=== PATIENT | male | born 1960 | race Caucasian/White ===

== ENCOUNTER 2023-02-17 11:05 | Outpatient (OUT) | payer OTHER, SELFPAY ==
--- NOTE | 2023-02-17 11:39 | PM.CN ---
Consult Note: HPI Data of Consult Patient: known to practice within the last 3 years Consult date: 02/17/23 Requesting Physician: ALPHONSO NINO NP Primary Care Provider: Shaikh Helena MD Consult Narrative Reason for consult: shoulder pain Narrative: Patient is here for f/u of right shoulder injection done 12/08/22 . He had 70% relief of pain and increased fx continued through today. He has f/u appt with ortho for shoulder coming up.No new sensorimotor or bowel or bladder issues. No adverse medication SE. Medication regimen assists patient in ability to complete ADLs. STEWART-40. He inquired about increasing his oxycodone dose. He feels the med is wearing off before next dose is due. We can increase to 4 times a day. Can take baclofen BID. He does use tens unit at home. He also has had weight loss purposeful. Decreased ROM bilat shoulders. cc:: CC: ALPHONSO NINO NP Review of Systems ROS Status of ROS 10 or more systems reviewed and unremarkable except as noted in history and below Musculoskeletal Reports: extremity pain and joint pain Exam Constitutional Documenting provider has reviewed patient's vital signs: yes Common normals: no apparent distress, average body habitus, oriented x3, no limitations, healthy appearing, alert and well nourished General appearance: cooperative, comfortable and well developed Orientation/consciousness: Yes awake, Yes oriented to person, Yes oriented to place and Yes oriented to time HENNY Common normals: normocephalic, nasal mucous membranes and turbinates normal and moist oral mucous membranes Respiratory Common normals: normal respiratory effort, no retractions and no use of accessory muscles Effort & inspection: able to speak in complete sentences and symmetric chest movement Extremity Common normals: normal to inspection, normal capillary refill and no pedal edema Right upper extremity: shoulder joint (crepitus with movement, positive apleys) Right shoulder joint exam: inspection Left upper extremity: shoulder joint (crepitus with movement, positive apleys) Other: +2 bilat radial pulses, no arm drift Assessment and Plan Assessment and Plan (1) Shoulder arthritis: (2) Muscle spasm: Plan baclofen BID chiropractor narcan rx increase oxycodone to 4 times daily PRN
== END 2023-02-17 11:06 ==
PROVIDERS: PCP Internal Medicine; Visit Provider Nurse Practitioner
DX: M62.838 Other muscle spasm (principal); M19.019 Primary osteoarthritis, unspecified shoulder
CPT/HCPCS: G0463

== ENCOUNTER 2023-05-19 11:10 | Outpatient (OUT) | payer OTHER, SELFPAY ==
--- NOTE | 2023-05-19 11:14 | P.CN_ITS ---
Consult Note: HPI Data of Consult Patient: known to practice within the last 3 years Requesting Physician: Sho Galdamez NP Primary Care Provider: Shaikh Helena MD Consult Narrative Reason for consult: f/u Narrative: Ryan Pete a pleasant 63 year old male presents for evaluation of chronic bilateral shoulder pain, no pain in left shoulder today however right pain is 2/10 today. Has been evaluated by [facility] for shoulder surgery and is avoiding surgery as pain is tolerable at this time. cc:: CC: Sho Galdamez NP Review of Systems ROS Status of ROS 10 or more systems reviewed and unremarkable except as noted in history and below Musculoskeletal Reports: joint pain Meds Home Medications and Allergies Home Medications Medication Instructions Recorded Confirmed Type atorvastatin 40 mg tablet (Lipitor) 40 mg PO DAILY 02/17/23 02/17/23 History baclofen 10 mg tablet 10 mg PO BID 02/17/23 02/17/23 History gabapentin 300 mg capsule 300 mg PO DAILY 02/17/23 02/17/23 History (Neurontin) lidocaine 5 % topical patch 1 patch topical DAILY 02/17/23 02/17/23 History (Lidoderm) oxycodone-acetaminophen 5 mg-325 1 tab PO QID 02/17/23 02/17/23 History mg tablet (Percocet) oxycodone-acetaminophen 5 mg-325 1 tab PO QID PRN pain #120 tabs 04/12/23 Rx mg tablet (Percocet) oxycodone-acetaminophen 5 mg-325 1 tab PO QID PRN pain #120 tabs 04/14/23 Rx mg tablet (Percocet) Allergies Allergy/AdvReac Type Severity Reaction Status Date / Time No Known Drug Allergies Allergy Verified 02/17/23 12:58 Exam Constitutional Documenting provider has reviewed patient's vital signs: yes Common normals: no apparent distress, oriented x3, healthy appearing, alert and well nourished General appearance: cooperative HENMT Common normals: normocephalic, hearing grossly normal bilaterally and moist oral mucous membranes Head and scalp: normocephalic Eye Common normals: PERRL Pupil: PERRL Neck & C-Spine Common normals: full ROM General: normal visual inspection Chest Common normals: inspection of chest normal Respiratory Common normals: normal respiratory effort, no retractions and no use of accessory muscles Extremity Right upper extremity: shoulder joint Left upper extremity: shoulder joint Other: pain with activity, ROM WNL but painful mild edema 5/5 BUE strength Neuro Common normals: oriented x3, CN's II-XII intact bilaterally, moves all extremities, no focal motor deficits, no sensory deficits noted and deep tendon reflexes 2+ bilaterally Sensorium/orientation: alert Motor exam: strength 5/5 throughout and no movement abnormalities noted Psych Common normals: mental status grossly normal, thought process normal, cooperative, affect normal, speech normal and activity/motor behavior normal Speech: normal speech Thought process: normal thought process Results Additional Findings Additional findings: I have checked an [place] report on this patient today and there are no aberrancies noted in the prescribing history.?? A drug screen was completed and reviewed within the last year, and if there has not been a drug screen completed we ordered one today to monitor higher risk, state monitored pain medication use. As part of providing excellent, safe, comprehensive care, the following was completed at our patient's visit: 1. A medication reconciliation and review to ensure accurate knowledge of current/active medications, including asking our patients to inform us about any [id number] medications or herbal remedies/nutritional supplements/alternative remedies. 2. A review to specifically ensure our patients have had annual screening for: elevated body mass index (BMI), tobacco use, screening for depression, and screening for unhealthy alcohol use. When screening is concerning, patients are provided with education and the specific recommendation to discuss the concerning health issue and treatment options with their primary care provider. Assessment and Plan Assessment and Plan (1) Shoulder arthritis: (2) Muscle spasm: (3) Chronic, continuous use of opioids: Assessment and Plan: I feel these medications are improving the patient's quality of life and allow them to tolerate activities of daily living as well as participate in recreational activity.? The patient does not report intolerable side effects. The patient is NOT opioid naive and non-pharmacologic and non-opioid treatment has failed to significantly relieve the patient's pain and improve functionality. The patient has a diagnosis that is related to a somatic or visceral pain etiology. ? ?? I reviewed with the patient the potential risks and side effects with the use of? opioid medications including but not limited to respiratory depression,? sedation, and even . I verified the patient has access to naloxone should? these effects occur. I advised the patient to avoid the use of any other? sedation substances including alcohol, THC, and benzodiazepines while? taking opioid medications due to the risk of compounding side effects and? detrimental outcomes. 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 drug screen, and opioid start talking forms. The patient was advised to let? their family know they had Naloxone in case they would need to administer? the medication.? Plan not interested in surgical intervention at this time pain well controlled on current medication regimen f/u 3 months, sooner if needed
== END 2023-05-19 11:11 | disposition home or self-care (01) ==
LOC: PM 11:11
PROVIDERS: PCP Internal Medicine; Visit Provider Nurse Practitioner
DX: M19.019 Primary osteoarthritis, unspecified shoulder (principal); M62.838 Other muscle spasm; Z79.891 Long term (current) use of opiate analgesic
CPT/HCPCS: G0463

== ENCOUNTER 2023-05-23 10:00 | Outpatient (OUT) | payer OTHER, SELFPAY ==
[2023-05-23 10:35] LABS: Basophils Absolute Auto 0.1 10^3/uL (0.0-0.1); Basophils Percent Auto 0.6 % (0.2-2.0); Eosinophils Absolute Auto 0.2 10^3/uL (0.0-0.7); Eosinophils Percent Auto 2.9 % (0.9-7.0); Hematocrit 46.5 % (42.0-54.0); Hemoglobin 15.2 g/dL (14.0-18.0); Immature Granulocytes Abs Auto 0.02 10^3/uL (0.00-0.03); Immature Granulocytes Pct Auto 0.2 % (0.0-0.5); Lymphocytes Percent Auto 25.2 % (20.5-60.0); Mean Corpuscular HGB Conc 32.7 g/dL (29.9-35.2); Mean Corpuscular Hemoglobin 30.5 pg (25.9-34.0); Mean Corpuscular Volume 93.2 fL (80.0-94.0); Mean Platelet Volume 9.9 fL (9.5-13.5); Monocytes Absolute Auto 0.6 10^3/uL (0.3-0.8); Monocytes Percent Auto 7.1 % (1.7-12.0); Neutrophils Absolute Auto 5.1 10^3/uL (1.4-6.5); Platelet Count 221 10^3/uL (150-450); Red Blood Count 4.99 10^6/uL (4.70-6.10); Red Cell Distribution Width 12.1 % (11.0-15.0)
[2023-05-23 11:29] LABS: Alanine Aminotransferase 17 U/L (16-63); Albumin Globulin Ratio 1.2; Albumin Level 3.8 g/dL (3.4-5.0); Alkaline Phosphatase 104 U/L (46-116); Anion Gap 12.3; Aspartate Amino Transferase 16 U/L (15-37); BUN Creatinine Ratio 11.8; Bilirubin Total 0.7 mg/dL (0.2-1.0); Calcium 9.1 mg/dL (8.5-10.1); Carbon Dioxide 30.4 mmol/L (21.0-32.0); Chloride 105 mmol/L (98-107); Chol HDL Ratio 3.7; Cholesterol 223 mg/dL (<=200); Estimated GFR (African America >60 (>=60); Estimated GFR (Non-African Ame >60 (>=60); Globulin 3.3 g/dL; Glucose 105 mg/dL (74-106); HDL Cholesterol 61 mg/dL (40-60); Potassium 4.7 mmol/L (3.5-5.1); Sodium 143 mmol/L (136-145); Thyroid Stimulating Hormone 2.087 uIU/mL (0.358-3.740); Total Protein 7.1 g/dL (6.4-8.2); Triglycerides 76 mg/dL (<=150); VLDL CHOLESTEROL 15.2 mg/dL
[2023-05-30 04:06] LABS: Free Testosterone(Direct) 5.2 pg/mL (6.6-18.1); Testosterone 530 ng/dL (264-916)
== END 2023-05-23 10:01 | disposition home or self-care (01) ==
LOC: LAB 10:01
PROVIDERS: PCP Internal Medicine; Visit Provider Internal Medicine
DX: E55.9 Vitamin D deficiency, unspecified (principal); E78.5 Hyperlipidemia, unspecified; R53.83 Other fatigue; E29.1 Testicular hypofunction
CPT/HCPCS: 36415; 80053; 80061; 82306; 82607; 82746; 84402; 84403; 84443; 85025

== ENCOUNTER 2023-06-03 12:34 | Outpatient (OUT) | payer OTHER, SELFPAY ==
[2023-06-04 08:12] LABS: FSH 4.5 mIU/mL (1.5-12.4); Luteinizing Hormone(LH) 11.2 mIU/mL (1.7-8.6); Prolactin 9.9 ng/mL (4.0-15.2); Triiodothyronine (T3) 125 ng/dL (71-180)
== END 2023-06-03 12:35 | disposition home or self-care (01) ==
LOC: LAB 12:34
PROVIDERS: PCP Internal Medicine; Visit Provider Internal Medicine
DX: E29.1 Testicular hypofunction (principal)
CPT/HCPCS: 36415; 83001; 83002; 84146; 84436; 84443; 84480

== ENCOUNTER 2023-06-09 14:53 | Outpatient (OUT) | payer OTHER, SELFPAY ==
--- NOTE | 2023-06-09 14:58 | US_ITS ---
[address] [address] Patient Name: RIGO JEFFERSON MRN: [id number] date: 1960 Sex: M Assigned Patient Location: [place] Current Patient Location: [place] Accession/Order Number: [id number] Exam Date: 06/09/2023 15:20 Report Date: 06/09/2023 22:32 At the request of: SHAIKH ROMERO Procedure: US scrotum EXAM: US scrotum HISTORY: Testicular Hypofunction E29.1 COMPARISON: None. TECHNIQUE: Standard scrotal ultrasound performed using Doppler interrogation FINDINGS: Right testicle measures 3.1 x 1.8 x 3.1 cm. Left testes measure 3.9 x 1.9 x 3 cm. Rete testes seen on the left. No evidence of torsion or testicular mass. Left epididymis appears mildly heterogeneous without hyperemia. Small right-sided varicocele as well as bilateral hydroceles. Varicocele on the right measures up to about 4 mm US/US scrotum IMPRESSION: No evidence of acute testicle information testicular mass. Small right varicocele and small bilateral hydroceles Electronically authenticated by: JOSEPH LOMBARDO Date: 06/09/2023 22:32
== END 2023-06-09 14:54 | disposition home or self-care (01) ==
LOC: US 14:54
PROVIDERS: PCP Internal Medicine; Visit Provider Internal Medicine
DX: E29.1 Testicular hypofunction (principal)
CPT/HCPCS: 76870

== ENCOUNTER 2023-08-17 11:23 | Outpatient (OUT) | payer OTHER, SELFPAY ==
--- NOTE | 2023-08-17 11:58 | P.CN_ITS ---
Consult Note: HPI Data of Consult Patient: known to practice within the last 3 years Requesting Physician: Sho Galdamez NP Primary Care Provider: Shaikh Helena MD Consult Narrative Reason for consult: f/u Narrative: Ryan Pete a pleasant 63 year old male presents for evaluation of chronic pain. Today pain 3/10 in low back, ache worse with activity. Patient reports moderate benefit from current medication regimen and would like to continue on these medications. cc:: CC: Sho Galdamez NP Review of Systems ROS Status of ROS 10 or more systems reviewed and unremark able except as noted in history and below Musculoskeletal Reports: back pain and joint pain Meds Home Medications and Allergies Home Medications Medication Instructions Recorded Confirmed Type atorvastatin 40 mg tablet (Lipitor) 40 mg PO DAILY 02/17/23 02/17/23 History baclofen 10 mg tablet 10 mg PO BID 02/17/23 02/17/23 History gabapentin 300 mg capsule 300 mg PO DAILY 02/17/23 02/17/23 History (Neurontin) lidocaine 5 % topical patch 1 patch topical DAILY 02/17/23 02/17/23 History (Lidoderm) oxycodone-acetaminophen 5 mg-325 1 tab PO QID 02/17/23 02/17/23 History mg tablet (Percocet) oxycodone-acetaminophen 5 mg-325 1 tab PO QID PRN pain #120 tabs 04/12/23 Rx mg tablet (Percocet) oxycodone-acetaminophen 5 mg-325 1 tab PO QID PRN pain #120 tabs 04/14/23 Rx mg tablet (Percocet) oxycodone-acetaminophen 5 mg-325 1 tab PO QID PRN pain #120 tabs 06/14/23 Rx mg tablet (Percocet) oxycodone-acetaminophen 5 mg-325 1 tab PO QID PRN pain #120 tabs 07/19/23 Rx mg tablet (Percocet) Allergies Allergy/AdvReac Type Severity Reaction Status Date / Time No Known Drug Allergies Allergy Verified 02/17/23 12:58 Exam Constitutional Documenting provider has reviewed patient's vital signs: yes Common normals: no apparent distress, oriented x3, healthy appearing, alert and well nourished General appearance: cooperative HENMT Common normals: normocephalic, hearing grossly normal bilaterally and moist oral mucous membranes Head and scalp: normocephalic Eye Common normals: PERRL Pupil: PERRL Neck & C-Spine Common normals: full ROM General: normal visual inspection Chest Common normals: inspection of chest normal Respiratory Common normals: normal respiratory effort, no retractions and no use of accessory muscles Back & Pelvis Thoracic spine/upper back: pain with ROM Lumbar spine/lower back: pain with ROM and straight leg raise positive right Extremity Common normals: normal to inspection and full ROM Right upper extremity: shoulder joint Left upper extremity: shoulder joint Other: pain with activity, ROM WNL but painful mild edema 5/5 BUE strength Neuro Common normals: oriented x3, CN's II-XII intact bilaterally, moves all extremities, no focal motor deficits, no sensory deficits noted and deep tendon reflexes 2+ bilaterally Sensorium/orientation: alert Motor exam: strength 5/5 throughout and no movement abnormalities noted Psych Common normals: mental status grossly normal, thought process normal, cooperative, affect normal, speech normal and activity/motor behavior normal Speech: normal speech Thought process: normal thought process Assessment and Plan Assessment and Plan (1) Osteoarthritis: (2) Lumbar spondylosis: (3) Chronic, continuous use of opioids: (4) Muscle spasm: (5) Shoulder arthritis: Plan declining injection therapy and PT at this time still finding functional benefit from current medication regimen following with a new dr for testosterone injections and blood work continue current medications, tolerating well without side effect f/u 3 months
== END 2023-08-17 11:24 | disposition home or self-care (01) ==
PROVIDERS: PCP Internal Medicine; Visit Provider Nurse Practitioner
DX: M19.90 Unspecified osteoarthritis, unspecified site (principal); M47.816 Spondylosis without myelopathy or radiculopathy, lumbar region; Z79.891 Long term (current) use of opiate analgesic; M62.838 Other muscle spasm; M19.012 Primary osteoarthritis, left shoulder
CPT/HCPCS: G0463

== ENCOUNTER 2023-11-05 11:42 | Outpatient (OUT) | payer OTHER, SELFPAY ==
--- OUTSIDE RECORDS SUMMARY | 2023-11-04 14:27 | XMS_ITS | CCD ---
Author Name Unknown Address [address] [place] [address] Organization [facility] Care Team Providers Care Lunchroom Monitor Name Role Phone Chandan Cool Unavailable Unavailable Sid Ac Unavailable Unavailable Required, No Pcp Unavailable Unavailable Daniel Caballero Unavailable None, No PCP Unavailable Unavailable [facility] Primary Care Unavailable WEST, DR RADHA Gaxiola Consulting Unavailable DUNCAN ., DR LLUVIA Sheldon Attending Unavailable DUNCAN ., DR LLUVIA Sheldon Admitting Unavailable DUNCAN ., DR LLUVIA Sheldon Consulting Unavailable [facility] Primary Care Unavailable DUNCAN ., DR LLUVIA Sheldon Attending Unavailable DUNCAN ., DR LLUVIA Sheldon Consulting Unavailable DUNCAN ., DR LLUVIA Sheldon Admitting Unavailable [facility] Primary Care Unavailable DUNCAN ., DR LLUVIA Sheldon Attending Unavailable DUNCAN ., DR LULVIA Sheldon Consulting Unavailable DUNCAN ., DR LLUVIA Sheldon Admitting Unavailable [facility] Primary Care Unavailable ANDERSEN .RAVINDER Consulting Unavailable DUNCAN ., DR LLUVIA Sheldon Admitting Unavailable DUNCAN ., DR LLUVIA Sheldon Attending Unavailable [facility] Primary Care Unavailable ANDERSEN .RAVINDER Consulting Unavailable DUNCAN ., DR LLUVIA Sheldon Admitting Unavailable DUNCAN ., DR LLUVIA Sheldon Attending Unavailable [facility] Primary Care Unavailable LAKSHMIPATHY ., NARENDRANATH Attending Nadira vailable LAKSHMIPATHY ., NARENDRANATH Admitting Nadira vailable [facility] Primary Care Unavailable LAKSHMIPATHY ., NARENDRANATH Attending Nadira vailable LAKSHMIPATHY ., NARENDRANATH Consulting Nadira vailable LAKSHMIPATHY ., NARENDRANATH Admitting Nadira vailable [facility] Primary Care Unavailable LAKSHMIPATHY ., [...] day Quantity: 0 Refills: 0 Ordered: 11-Feb-2021 aJny Ann Generic Substitution Allowed allopurinol 300 mg [...] 17 MCG/ACT Inhalation Aerosol Solution Refills: 0 [place] MEMEMarionJo Start : 28-Nov-2017 Active lisinopril 20 [...] by: DOMINGA FLYNN Date: 2022-12-08 10:25 Normal [facility] MRI SHOULDER RT WO CONon MRI SHOULDER [...] by: DOMINGA FLYNN Date: 2022-12-08 10:35 Normal [facility] XR CSPINE OBL FLEX_EXTon XR CSPINE OBL [...] RADHA DIAZ Date: 2022-05-31 20:33 Normal [facility] Post Op (General Surgery)on 04-02-2021 Post [...] not he wants to follow-up with a artistic associate in our system. Provider Impressions He is [...] not he wants to follow-up with a artistic associate in our system. Chief Complaint An interactive [...] not he wants to follow-up with a artistic associate in our system. Active Problems COPD (chronic [...] MG Oral Tablet Results/Data Xray Chest 1 [id number] 04:27PMJim Faith Test NameResultFlagReference Xray Chest 1 View(Report) FINAL REPORT Interpreted by: МАРИНА MARCELO MD 02/12/21 16:52 Patient Name: RIGO JEFFERSON STUDY: CHEST 1 VIEW; 02/12/2021 4:27 pm INDICATION: chest tube removal. COMPARISON: Prior 11:07 a.m. radiograph. ACCESSION NUMBER(S): [id number] ORDERING CLINICIAN: JIM FAITH FINDINGS: Left basilar [...] Apr 02 2021 5:38PM EST (Author) Normal Really Simple Admission Risk Screen - Adul ton 02-12-2021 Admission Risk Screen - Adult Allergies: Allergies: No Known Allergies: Patient Verification: New W ID Band Applied in my Departmentno Type of ID Patient is WearingW wristband, but not applied here Patient Transferred from Other Facility ([facility], [facility],etc)no Patient Identity Verified Bypatient ID Band [...] AlertFor Ebola-like Symptoms: Isolate Patient and Notify Provider/Network Professional For Contact: Notify Provider/Network Professional Advance Directive: Advance Directive/DNRno (1) Advance Directive [...] Learning Preferencesverbal instruction Cultural Considerationsnone Developmental Considerationsnone Adventism Considerationsnone Learning Assessment (Other Learner): Other learner availableno Depression Screen: During the past month, have you often been bothered by feeling down, depressed or hopelessno (1) During the past month, have you often had little interest or pleasure in doing thingsno (1) Have you had any thoughts of harming anyone elseno (1) Anderson Suicide: Risk Screen Not Applicable/Able to Answerable to be screened In the Past Month: Have you wished you were or could go to sleep and not wake upno(1) In the Past Month: Have you had any actual thoughts of killing yourself no(1) Lifetime: Have you ever done, started to do, or prepared to do anything to end your lifeno(1) Anderson Suicide Risknegative Adult Nutrition Screen: Have you [...] Pain (nonverbal)verbalization (more content not included)... Normal [facility] BASIC METABOLIC PANELon 02-03 Anion gap [Moles/Vol] 15 mmol/L Normal 10 - 20 [facility] Comment on above: Performed By: #### B MP #### [facility] [address] [place] [address] Calcium [Mass/Vol] 9.5 mg/dL Normal 8.6 - 10.6 [facility] Comment on above: Performed By: #### B MP #### [facility] [address] [place] [address] Chloride [Moles/Vol] 102 mmol/L Normal 98 - 107 [facility] Comment on above: Performed By: #### B MP #### [facility] [address] [place] [address] Creatinine [Mass/Vol] 0.98 mg/dL Normal 0.50 - 1.30 [facility] Comment on above: Performed By: #### B MP #### [facility] [address] [place] [address] GFR- AM. >60 Normal >60 [facility] Comment on above: Result Comment: CALC ULATIONS OF ESTIMATED GFR ARE PERFORMED USING THE MDRD STUDY EQUATION FOR THE IDMS-TRACEABLE CREATININE METHODS. CLIN CHEM 2007;53:766-72 Performed By: #### B MP #### [facility] [address] [place] [address] GFR-NON AM. >60 Normal >60 [facility] Comment on above: Performed By: #### B MP #### [facility] [address] [place] [address] Glucose [Mass/Vol] 133 mg/dL High 74 - 99 [facility] Comment on above: Performed By: #### B MP #### [facility] [address] [place] [address] HCO3 (Bld) [Moles/Vol] 24 mmol/L Normal 21 - 32 [facility] Comment on above: Performed By: #### B MP #### [facility] [address] [place] [address] Potassium [Moles/Vol] 4.3 mmol/L Normal 3.5 - 5.3 [facility] Comment on above: Performed By: #### B MP #### [facility] [address] [place] [address] Sodium [Moles/Vol] 137 mmol/L Normal 136 - 145 [facility] Comment on above: Performed By: #### B MP #### [facility] [address] [place] [address] Urea nitrogen [Mass/Vol] 17 mg/dL Normal 6 - 23 [facility] Comment on above: Performed By: #### B MP #### [facility] [address] [place] [address] CBCon 02-12-2021 Erythrocyte distribution width (RBC) [Ratio] 12.1 % Normal 11.5 - 14.5 [facility] Comment on above: Performed By: #### C BC #### [facility] [address] [place] [address] Hematocrit (Bld) [Volume fraction] 45.8 % Normal 41.0 - 52.0 [facility] Comment on above: Performed By: #### C BC #### [facility] [address] [place] [address] Hemoglobin (Bld) [Mass/Vol] 15.0 g/dL Normal 13.5 - 17.5 [facility] Comment on above: Performed By: #### C BC #### [facility] [address] [place] [address] MCHC (RBC) [Mass/Vol] 32.8 g/dL Normal 32.0 - 36.0 [facility] Comment on above: Performed By: #### C BC #### [facility] [address] [place] [address] MCV (RBC) [Entitic vol] 94 fL Normal 80 - 100 [facility] Comment on above: Performed By: #### C BC #### [facility] [address] [place] [address] NUCLEATED RBC 0.0 /100 WBC Normal 0.0-0.0 [facility] Comment on above: Performed By: #### C BC #### [facility] [address] [place] [address] Platelets (Bld) [#/Vol] 228 10*3/uL Normal 150 - 450 [facility] Comment on above: Performed By: #### C BC #### [facility] [address] [place] [address] RBC 4.85 x10E12/L Normal 4.50 - 5.90 [facility] Comment on above: Performed By: #### C BC #### [facility] [address] [place] [address] WBC (Bld) [#/Vol] 12.8 10*3/uL High 4.4 - 11.3 [facility] Comment on above: Performed By: #### C BC #### [facility] [address] [place] [address] Clinical Event Note-POCon Clinical Event Note-POC Clinical [...] 00:41 by Nataliia Ferris ( (Resident)) Normal [facility] Daily Progress Note-Surgeryo n 02-12-2021 Daily Progress [...] yet. Objective Data: Objective Information: T PRBPSpO2 Value35.29700206/8695% Date/Time02/12 6:4902/12 6:4902/12 6:4902/12 6:4902/12 6:49 Range(35.4C - 36.4C ) (77 - 99 ) (17 - 18 ) (127 - 147 )/ (86 - 91 ) (95% - 96% ) Pain reported at 02/12 2:54: 6 = Moderate ---- Intake and Output ----- Mn/Dy/Year TimeIntakeOutputNet Feb 12, 2021 6:00 [id number] Feb 11, 2021 10:00 [id number] The Intake and Output Totals for the last 24 hours are: IntakeOutputNet [id number] Physical Exam by System: Constitutional: Well developed, [...] Objective Data, Assessment and Plan, Note Completion Daniel Caballero) (Signed 13-Feb-2021 10:13) Authored: Note Completion Co-Signer: Service, Subjective Data, Objective Data, Assessment and Plan, Note Completion Last Updated: 13-Feb-2021 10:13 by Daniel Caballero) [facility] Discharge Planning [id number] 0 02-12-2021 Discharge Planning Note2 Discharge Planning: Needs Prior to Discharge (ex. Home Care Orders, IV/O2 prescriptions) Follow up appointments Discharge Barriers (ex. Avoidable days, wait guardianship, pt refuse leave) None Planned Dispositionhome Discharge DestinationHome [facility] 20[facility] [place] of Choice Explainedyes preference Anticipated Discharge [id number] Discharge Planning 02/12/2021 0135 Discharge Plan Patient transferred from [place] [address] from PACU for diaphragm plication. Pt is A&O times 4. at 3 liters oxygen. Pt denies any certified medical records coder use at home. 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 Pt have valuable belongings [...] disposition: Home Potential Barriers: none ADOD: 02/12. community service officer coordinator will continue to follow for discharge planning needs. Franny Gilliam RN, Transitional Warp Bleaching Vat Tender/TCC, pager [phone] Discharge note: 02/12/21 @ 1735: PT discharged home at this time. pts peripheral IV taken out prior to DC. pt given DC instructions. pt verbalized understanding. pt refused transport and walked downstairs with his son.---Erika stock RN Assessment: Discharge Planning Assessment [id number] Primary Contact Name and NumberAdam [phone](1) Stated Reason for Admissiondiaphragm plication(2) Arrived FromOR (2) Lives Withparent(s)(2) Living Arrangementshouse(2) Resource/Environmental Concernsnone(2) [facility] Services Anticipated at Transitionnone(2) Discharge Documentation: Discharge/Transfer Date/[id number] 17:35 Discharge Modeambulatory Discharged Accompanied Byfamily member [...] Profile - Adult v2 12-Feb-2021 01:[address] 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 Laboratory - Chemistry and C hemistry - challengeon 02-12-2021 Anion gap [Moles/Vol] 15 mmol/L 10 - 20 DF-Nelesms-[address] Work Phone: Calcium [Mass/Vol] 9.5 mg/dL 8.6 - 10.6 MG-Tino raysa-[address] Work Phone: Chloride [Moles/Vol] 102 mmol/L 98 - 107 VI-Fasoaih-[address] Work Phone: CO2 [Moles/Vol] 24 mmol/L 21 - 32 MG-Surger y-G re[address] [facility] Work Phone: Creatinine [Mass/Vol] 0.98 mg/dL See Below GF-Esafxlj-[address] Work Phone: Comment on above: Reference Range: 0.5 0 - 1.30 Glucose [Mass/Vol] 133 mg/dL above high threshold 74 - 99 TV-Pxeohdv-P [facility] Work Phone: Potassium [Moles/Vol] 4.3 mmol/L 3.5 - 5.3 HD-Wtfloew-V [facility] [address] Work Phone: Sodium [Moles/Vol] 137 mmol/L 136 - 145 MG-Tino raysa-G [facility] Work Phone: Urea nitrogen [Mass/Vol] 17 mg/dL 6 - 23 FH-Urtsuim-L [facility] [address] Work Phone: Laboratory - Hematology and Cell countson 02-12-2021 Erythrocyte distribution width (RBC) [Ratio] 12.1 % See Below JZ-Dnubthg-R [facility] [address] Work Phone: Comment on above: Reference Range: 11. 5 - 14.5 Hematocrit (Bld) [Volume fraction] 45.8 % See Below BM-Lrszxyp-E [address] Work Phone: Comment on above: Reference Range: 41. 0 - 52.0 Hemoglobin (Bld) [Mass/Vol] 15.0 g/dL See Below GW-Ebiebeb-O [address] Work Phone: Comment on above: Reference Range: 13. 5 - 17.5 MCHC (RBC) [Mass/Vol] 32.8 g/dL See Below QP-Vdoflvm-L [address] Work Phone: Comment on above: Reference Range: 32. 0 - 36.0 MCV (RBC) [Entitic vol] 94 fL 80 - 100 GM-Vxwvmbz-D [address] Work Phone: Platelets (Bld) [#/Vol] 228 10*3/uL 150 - 450 XB-Xtlfgof-[address] Work Phone: RBC (Bld) [#/Vol] 4.85 {x10E12/L} See Below MG -Surgery-G [facility] Work Phone: Comment on above: Reference Range: 4.5 0 - 5.90 WBC (Bld) [#/Vol] 12.8 10*3/uL above high threshold 4.4 - 11.3 FO-Ylooahh-Z [facility] [address] Work Phone: No Panel Informationon 02-12 >60 >60 BW-Iiphfns-W [place] [address] Work Phone: Comment on above: CALCULATIONS OF LANRE MATED GFR ARE PERFORMED USING THE MDRD STUDY EQUATION FOR THE IDMS-TRACEABLE CREATININE METHODS. CLIN CHEM 2007;53:766-72 0.0 {/100_WBC} 0.0-0.0 MG-Surgery -G [place] [address] Work Phone: Order Reconciliationon 02-12 Order Reconciliation Page 1 Discharge Reconciliation Document Reconciliation Type: Discharge requested on behalf of Jim Faith (Resident) done by Jim Faith (DO (Resident)) Discharge - Reconciliation: 12-Feb-2021 [...] tab(s) orally [address] [facility] Patient Profile - Adult v2on 02-12-2021 Patient Profile - Adult v2 Profile: Initial Info: How to be AddressedDel(1) Spoken Language PreferredEnglish (1) Stated Reason for Admissiondiaphragm plication Patient Belongingsremains with patient Patient Belongings Remaining with Patientcash/credit card; clothing Arrived FromOR Medications Brought to Hospitalno Are you currently using the Personal Electronic Health Record or EZ-Appsno (1) Wants Family/Rep Notified of Admissionyes, primary contact Notify PCPnotify PCP Informed of Patient Visiting Rightsyes General Health: Blood Avoidance/Restrictionsnone (1) Previous Transfusion Reactionno(2) Weight in kg109.8 kilogram(s)(3) Weight in iep889 pound(s) Weight Methodactual (measured) (3) Scale Typestanding [...] From 1. Vital Signs 11-Feb-2021 12:[address] [facility] Radiologyon 02-12-2021 XR Chest Single view Normal HH-Pxchvoa-[address] Work Phone: XR Chest Single view Normal BN-Buybhpi-C [address] Work Phone: XR Chest Single view Normal HT-Omkkntx-[address] Work Phone: TH CHEST 1 VIEWon 02-12-2021 TH CHEST 1 VIEW Patient Name: RIGO JEFFERSON STUDY: CHEST 1 VIEW; 02/12/2021 4:27 pm INDICATION: chest tube removal. COMPARISON: Prior 11:07 a.m. radiograph. ACCESSION NUMBER(S): [id number] ORDERING CLINICIAN: JIM FAITH FINDINGS: Left basilar [...] Electronically signed by: МАРИНА MARCELO MD Normal [facility] TH CHEST 1 VIEW Patient Name: RIGO JEFFERSON STUDY: CHEST 1 VIEW; 02/12/2021 11:58 am INDICATION: chest tube wet seal. COMPARISON: 7:02 a.m. radiograph. ACCESSION NUMBER(S): [id number] ORDERING CLINICIAN: JIM FAITH FINDINGS: Left basilar [...] Electronically signed by: МАРИНА MARCELO MD Normal [facility] CHEST 1 VIEW Patient Name: RIGO JEFFERSON STUDY: CHEST 1 VIEW; 02/12/2021 7:13 am INDICATION: POD 1 s/p diaphragm plication. COMPARISON: 02/11/2021. ACCESSION NUMBER(S): [id number] ORDERING CLINICIAN: JANE YO FINDINGS: Left basilar [...] Electronically signed by: МАРИНА MARCELO MD Normal [facility] No Panel Informationon 02-11 HY-Uetpfvm[place] [address] Work Phone: [facility] [place] [place] [address] Patient Name: RIGO JEFFERSON : 1960 Date of Service: 02/11/2021 Patient Location: [place] [address] Patient Type: I Surgeon: Daniel Caballero MD Report Type: Operative Reports PREOPERATIVE DIAGNOSIS: Chronic respiratory failure, left diaphragm dysfunction. POSTOPERATIVE DIAGNOSIS: Chronic respiratory failure, left diaphragm dysfunction. OPERATION/PROCEDURE: Laparoscopic left diaphragm plication with removal of previous diaphragm pacing wires. SURGEON: Daniel Caballero MD [employer] HRMS DEVELOPER(S): Jane Yo MD. There was no available resident. ANESTHESIA: LOCATION: [facility]. CLINICAL NOTE: This is a patient with [...] TT: 02/12/2021 12:44 PM EST DICTATION NUMBER: [id number] BRIE JOB NUMBER: [id number] CC: PT STATES NONE PCP Electronic Signatures: Daniel Caballero) (Signed on 13-Feb-2021 10:15) Authored Unsigned, Draft (SYS GENERATED) (Entered on 12-Feb-2021 12:44) Entered Last Updated: 13-Feb-2021 10:15 by Daniel Caballero) Normal [facility] Order Reconciliationon 02-11 Order Reconciliation Page 1 Admission Reconciliation Document Reconciliation Type: Admission from OR requested on behalf of Jane Yo (Physician) done by Jane Yo) Admission from OR - Reconciliation: 11-Feb-2021 18:31 by: Jane Yo) Home MedicationsEnteredLast Dose TakenReconciled with current Order Reconciliation Comment/ Additional Information Kristina 24 Hour Allergy oral tablet 1 tab(s) orally once a iwo01-Jyb-838011-Feb-2021 AM Reviewed and Held clarithromycin 250 mg oral tablet 250 milligram(s) orally once a day [id number] Clarithromycin Tablet (BIAXIN)DOSE = 250 mg Oral Every 24 Hoursclarithromycin 250 mg oral tablet continued as the inpatient order Clarithromycin diclofenac sodium 50 mg oral delayed release tablet 1 tab(s) orally 2 times a oof93-[id number]-Ydl-8072 AM Reviewed and Held oxycodone-acetaminophen 5 mg-300 mg oral tablet 1 tab(s) orally 2 times a day [id number]-0256 AM Reviewed and Held Additional Current Orders [...] 15 minute(s)Clinician Notes: Carlota-operative order ONLY Normal [facility] Patient Profile - Preop v2on 02-11-2021 Patient Profile - Preop v2 Profile: Initial Info: How to be AddressedDel(1) Spoken Language PreferredEnglish (1) Source of Informationpatient Are you currently using the Personal Electronic Health Record or EZ-Appsno (1) Are you interested in learning more about [employer] Entertainment[employer] for the management of your healthnot at this time Stated Reason for AdmissionL pulling of wires/pulling lung down Primary Contact Name and NumberAdam [phone] Patient Belongingspatient educated regarding responsibility for personal items Medications Brought to Hospitalno General Health: Weight in kg109.8 kilogram(s) Weight in eyw005 pound(s) Weight Methodactual (measured) Scale Typestanding Height [...] Learning Preferencesverbal instruction Cultural Considerationsnone Developmental Considerationsnone Adventism Considerationsnone Other learner availableno Falls RiskPatient location auto qualifies him/her for HIGH RISK. Are there any cultural, spiritual, yarsani practices/values/needs that are important for us to [...] Profile - Adult v2 12-Dec-2017 16:[address] [facility] Preop Checkliston 02-11-2021 Preop Checklist Preop Checklist: Preop Checklist: Arrival [id number]-Hem-8815 Arrival Time11:48 Procedure TypeL laparoscopic diaphragm plication Temperature C36.1 degrees C Temperature F96.9 degrees F Heart Rate70 beats per minute Respiratory Rate12 breath per minute Blood Pressure Cjizxzcn258 mm/Hg Blood Pressure Euadnzddk84 mm/Hg NPO Alsoxe02-Eef-4674 00:00 ID Band Onyes Allergy Bandno known [...] 11-Feb-2021 12:02 by Jany Ann (RN) Normal [facility] Radiologyon 02-11-2021 XR Chest Single view Please click on the link to view the study images Normal XD-Cwbrkte[place] [address] Work Phone: [facility] Surgical Pathology Depar tmenton 02-11-2021 [facility] Surgical Pathology Department Name RIGO JEFFERSON Pathologist: JACINTO MURRIETA MD Date of Procedure: 02/11/2021 Date Received: 02/12/2021 Date Reported 02/19/2021 Submitting Physician: DANIEL CABALLERO M.D. Location: [facility] Copy To/Referring/Attending: DANIEL CABALLERO M.D. Other External [...] this case. Clinical History: Physician Contact Number: [id number] Fixative (A): Fresh Clinical Diagnosis History: disorders of diaphragm Specimens Submitted As: A: PACING WIRE Gross Description: Received in formalin, labeled with the patient's name and hospital number, are multiple wires with a piece of adipose tissue attached measuring 3.0 x 1.6 x 1.0 cm. A photograph is taken. The attached soft tissue is submitted entirely in one cassette. EXB exb/02/12/2021 [facility] Department of Pathology [id number] [place] [address] [facility] Comment on above: Performed By: #### U HCS ####[facility] Surgical Pathology [address] [place] [address] CORONAVIRUS 2019, SCREEN ASY MPTOMATICon 02-10-2021 SARS-CoV-2 (COVID-19) RNA BECCA+probe Ql (Unsp spec) Not detected Normal Not Detected [facility] Comment on above: Result Comment: . This [...] patient management decisions. Fact sheet for providers: https://www.fda.gov/media/365684/download Fact sheet for patients: https://www.fda.gov/media/381466/download This test has received FDA Emergency Use Authorization (EUA) and has been verified by [facility] ([facility]). This test is only authorized for the duration of time that circumstances exist to justify the authorization of the emergency use of in vitro diagnostic tests for the detection of SARS-CoV-2 virus and/or diagnosis of COVID-19 infection under section 564(b)(1) of the Act, 21 U.S.C. 360bbb-3(b)(1), unless the authorization is terminated or revoked sooner. [facility] is certified under CLIA-88 as qualified to perform high complexity testing. Testing is performed in the [facility] laboratories located at [address] [place] [address]. Performed By: #### C OVSC #### [place] [address] Covid 19 Resultson SARS-CoV-2 (COVID-19) RNA BECCA+probe [...] You may also be contacted by the [facility] to see if any of your [...] or Naproxen (Aleve) can also be used. Qqde-vkk-ssmhrdf cough and cold medicines can be used according to the instructions on the package. Some trbp-fgi-gqoffqf medicines also contain acetaminophen. Make sure you [...] water are not available, use alcohol-based hand primary care pediatrician. Avoid touching your eyes, nose, and mouth [...] 24 alem (more content not included)... Normal [facility] CORONAVIRUS 2019, SCREEN ASY MPTOMATICon 02-09-2021 Lab Specimen Source Nasal, Nasopharyngeal Normal [facility] Comment on above: Performed By: #### C OVSC #### [facility] [id number] [place] [address] Coronavirus 2019 RNA by PCR, Screening Asymptomticon 02-09-2021 Coronavirus 2019 RNA by PCR, Screening Asymptomtic Not detected Normal See Below [facility] [address] [facility] Work Phone: Comment on above: [...] make patient management decisions.Fact sheet for providers: https://www.fda.gov/media/235621/downloadFact sheet for patients: https://www.fda.gov/media/775087/downloadThis test has received FDA Emergency Use Authorization (EUA) and has been verified by [facility] ([facility]). This test is only authorized for the duration of time that circumstances exist to justify the authorization of the emergency use of in vitro diagnostic tests for the detection of SARS-CoV-2 virus and/or diagnosis of COVID-19 infection under section 564(b)(1) of the Act, 21 U.S.C. 360bbb-3(b)(1), unless the authorization is terminated or revoked sooner. [facility] is certified under CLIA-88 as qualified to perform high complexity testing. Testing is performed in the [facility] laboratories located at [address] [place] [address]. BASIC METABOLIC PANELon 05-2 Anion gap [Moles/Vol] 13 mmol/L Normal 10 - 20 [facility] Comment on above: Performed By: #### B MP ####[id number] [place] [address] Calcium [Mass/Vol] 9.7 mg/dL Normal 8.6 - 10.6 [facility] Comment on above: Performed By: #### B MP ####[id number] [place] [address] Chloride [Moles/Vol] 108 mmol/L High 98 - 107 [facility] Comment on above: Performed By: #### B MP ####[id number] [place] [address] Creatinine [Mass/Vol] 1.04 mg/dL Normal 0.50 - 1.30 [facility] Comment on above: Performed By: #### B MP ####[id number] [place] [address] GFR- AM. >60 Normal >60 [facility] Comment on above: Result Comment: CALC ULATIONS OF ESTIMATED GFR ARE PERFORMED USING THE MDRD STUDY EQUATION FOR THE IDMS-TRACEABLE CREATININE METHODS. CLIN CHEM 2007;53:766-72 Performed By: #### B MP ####[id number] [place] [address] GFR-NON AM. >60 Normal >60 [facility] Comment on above: Performed By: #### B MP ####[id number] [place] [address] Glucose [Mass/Vol] 91 mg/dL Normal 74 - 99 [facility] Comment on above: Performed By: #### B MP ####[id number] [place] [address] HCO3 (Bld) [Moles/Vol] 29 mmol/L Normal 21 - 32 [facility] Comment on above: Performed By: #### B MP ####[id number] [place] [address] Potassium [Moles/Vol] 4.6 mmol/L Normal 3.5 - 5.3 [facility] Comment on above: Performed By: #### B MP ####[id number] [place] [address] Sodium [Moles/Vol] 145 mmol/L Normal 136 - 145 [facility] Comment on above: Performed By: #### B MP ####[id number] [place] [address] Urea nitrogen [Mass/Vol] 13 mg/dL Normal 6 - 23 [facility] Comment on above: Performed By: #### B MP ####[id number] [place] [address] CBCon 01-27-2021 Erythrocyte distribution width (RBC) [Ratio] 12.2 % Normal 11.5 - 14.5 [facility] Comment on above: Performed By: #### C BC ####[id number] [place] [address] Hematocrit (Bld) [Volume fraction] 46.7 % Normal 41.0 - 52.0 [facility] Comment on above: Performed By: #### C BC ####[id number] [place] [address] Hemoglobin (Bld) [Mass/Vol] 15.1 g/dL Normal 13.5 - 17.5 [facility] Comment on above: Performed By: #### C BC ####[id number] [place] [address] MCHC (RBC) [Mass/Vol] 32.3 g/dL Normal 32.0 - 36.0 [facility] Comment on above: Performed By: #### C BC ####[id number] [place] [address] MCV (RBC) [Entitic vol] 96 fL Normal 80 - 100 [facility] Comment on above: Performed By: #### C BC ####[id number] [place] [address] NUCLEATED RBC 0.0 /100 WBC Normal 0.0-0.0 [facility] Comment on above: Performed By: #### C BC ####[id number] [place] [address] Platelets (Bld) [#/Vol] 209 10*3/uL Normal 150 - 450 [facility] Comment on above: Performed By: #### C BC ####[id number] [place] [address] RBC 4.85 x10E12/L Normal 4.50 - 5.90 [facility] Comment on above: Performed By: #### C BC ####[id number] [place] [address] WBC (Bld) [#/Vol] 7.2 10*3/uL Normal 4.4 - 11.3 [facility] Comment on above: Performed By: #### C BC ####[id number] [place] [address] Follow Up (General Surgery)o n 01-27-2021 Follow [...] EKG; Status:Hold For - Scheduling; Requested for:27Jan2021; Perform:[facility] [place] 1800; Due:27Apr2021;Ordered; For:Diaphragm dysfunction, [...] 2017 and had paced more or less timekeeper. He was turning the device off 1-2 [...] MG Oral Tablet Vitals Vital Signs Recorded: [id number] 11:12AM Xaccjdtmjog50.1 F Heart Rate77 Ozxzeibu664 Ydxjbpfml89 Fcubro300 lb BMI Pnfesmcqoc76.64 kg/m2 BSA Calculated2.33 Tobacco Useb) No Physical [...] the r (more content not included)... Normal Gelato [place] No Panel Informationon 01-27 [email or web address] 1:8080 [email or web address]?R etrieveTestByDateTime?Sherita bedEW=[id number]&Date=&Time=13%3a24%3a34%3a 00&TestType=ECG&Site=1&Out putType=PDF&Ext=PDF MW-Utsffke-[address] Work Phone: Normal sinus rhythm MG-Ramos rgery-[address] Work Phone: [phone] Normal [place]-Ijmhvyh-[address] Work Phone: [phone] 1 PH-Jqboiwe-[address] Work Phone: [phone] 1 RC-Ibflhza-[address] Work Phone: [phone] 1 FO-Fkrfqyb-Q [address] Work Phone: [phone] 1 OA-Ilvszxk-R [address] Work Phone: [phone] 1 ZM-Ekygavw-[address] Work Phone: [phone] 1 DT-Ibgdlhk-E [address] Work Phone: [phone] 1 YR-Uprbwyi-[address] Work Phone: [phone] 1 QH-Spucmky-E [address] Work Phone: [phone] 1 AF-Bzltujo-[address] Work Phone: [phone] 1 DF-Zilprgr-U [address] Work Phone: [phone] 1 KA-Fdtxslb-[address] Work Phone: [phone] 1 SF-Rnncqsc-H [address] Work Phone: [phone] 1 WX-Eyqmnyr-X [address] Work Phone: [phone] 1 CD-Zfiqigp-W [address] Work Phone: Radiologyon 01-27-2021 XR Chest 2 Views Normal MG-Surge ry-[address] Work Phone: TH CHEST 2 VIEW PA AND LATon 01-27-2021 TH CHEST 2 VIEW PA AND LAT Patient Name: RIGO JEFFERSON STUDY: TH CHEST 2 VIEW PA AND LAT; 01/27/2021 11:00 am INDICATION: chronic hypoventilation. COMPARISON: Chest radiograph 04/03/2019 ACCESSION NUMBER(S): [id number] ORDERING CLINICIAN: DANIEL CABALLERO FINDINGS: Inspiratory and [...] Electronically signed by: ANGI CAICEDO MD Normal [facility] Tobacco Screening.on 021 Tobacco use status [facility] b) No LV-Ykmyymo-[address] Work Phone: Tobacco Screening. b) No MG-Tino raysa-[address] Work Phone: Otheron 04-03-2019 XR Chest 2 views Interpreted by: ISAK04/03/19 14:06MRN: [id number] Name: RIGO JEFFERSON STUDY:CHEST 2 VIEW PA [...] Electronically signed by: ISAK 04/03/19 14:06 Normal YU-Tzhyuhl-C [address] Work Phone: Vital Signs Date Time Vital Sign Value Performing Clinician Facility 02-12-2021 14:10-0400 SaO2% (BldA) [Mass fraction] 95 % No Pcp Required [facility] 02-12-2021 14:00-0400 Body temperature 97.16 [degF] No Pcp Required [facility] 02-12-2021 14:00-0400 Diastolic blood pressure 83 mm[Hg] No Pcp Required [facility] 02-12-2021 14:00-0400 Heart rate 81 /min No Pcp Required [facility] 02-12-2021 14:00-0400 Respiratory rate 18 /min No Pcp Required [facility] 02-12-2021 14:00-0400 Systolic blood pressure 131 mm[Hg] No Pcp Required [facility] 02-12-2021 03:31-0400 Body height 182.8 cm No Pcp Required [facility] 02-12-2021 03:31-0400 Body weight 109.8 kg No Pcp Required [facility] 01-27-2021 11:12-0400 Body mass index (BMI) [Ratio] 33.64 kg/m2 Daniel Caballero MD Work Phone: TB-Rkpfhsp-[address] Work Phone: 01-27-2021 11:12-0400 Body surface area Derived from formula 2.33 m2 Daniel Caballero MD Work Phone: MW-Lpxxcwx-[address] Work Phone: 01-27-2021 11:12-0400 Body temperature 96.1 [degF] Daniel Caballero MD Work Phone: RM-Kizplph-[address] Work Phone: 01-27-2021 11:12-0400 Body weight 112.49 kg Daniel Caballero MD Work Phone: AV-Hioiqwa-[address] Work Phone: 01-27-2021 11:12-0400 Diastolic blood pressure 85 mm[Hg] Daniel Caballero MD Work Phone: CI-Faogfhn-[address] Work Phone: 01-27-2021 11:12-0400 Heart rate 77 /min Daniel Caballero MD Work Phone: WX-Aciadnj-Z[address] Work Phone: 01-27-2021 11:12-0400 Systolic blood pressure 157 mm[Hg] Daniel Caballero MD Work Phone: VH-Ybsbsfx-[address] Work Phone: 04-03-2019 15:37-0400 BMI (Body Mass Index) 30.11 kg/m2 Chandan [place] [facility]-Surgery -[place] [address] Work Phone: 04-03-2019 15:37-0400 Body Temperature 97.9 [degF] Chandan Travon ZL-Xtkdeyu-[address] Work Phone: 04-03-2019 15:37-0400 Body weight 100.7 kg Chandan Travon CF-Bkmahkh-Wdgsc ll 2099 Work Phone: 04-03-2019 15:37-0400 BP Diastolic 74 mm[Hg] Chandan Travon OG-Iktgyxu-Mklno ll [address]99 Work Phone: 04-03-2019 15:37-0400 BP Systolic 121 mm[Hg] Chandan Travon QD-Rupiria-Bolcp [address] 2099 Work Phone: 04-03-2019 15:37-0400 BSA (Body Surface Area) 2.23 m2 Chandan [place] LR-Tltivwp-Cdzvkln 2099 Work Phone: 04-03-2019 15:37-0400 Height 182.88 cm Chandan Travon NO-Kdkibks-Tdyvk ll 2099 Work Phone: 04-03-2019 15:37-0400 Pulse (Heart Rate) 58 /min Chandan Cool NL-Qbisvws-[address] Work Phone: Encounters Encounter Date [...] related to original px No PCP None OW-Irvkqzm-[address] Work Phone: Start: 02-20-2021 Chart Update No PCP None [facility]-Surgery -[address] Work Phone: Start: 02-11-2021 End: 02-12-2021 Evaluation and management of inpatient Daniel Caballero [facility] Lks[address] 55 Rm 5511 01 Start: 01-27-2021 Chart Update Daniel Caballero MD Work Phone: ZV-Wyoflkg-[address] Work Phone: Start: 04-03-2019 Patient encounter procedure Chandan Cool JL-Wwnaxoc-[address] Work Phone: Start: 01-12-2018 Patient encounter procedure Chandan Cool ZB-Hbprrra-[address] Work Phone: Start: 11-28-2017 Patient encounter procedure Chandan Cool QF-Zwnibjj-[address] Work Phone: Start: 11-28-2017 Patient encounter procedure Chandan Cool ZP-Jgogxsd-[address] Work Phone: Procedures Date Procedure [...] End: 11-Feb-2022 Ordered: 11-Feb-[address] [facility] Payers Date Payer Category Payer Unknown [id number] 2018 Unknown 1960 Medicare [id number] 1960 Unknown [id number] 2.16.84 [id number] 1959 Unknown [id number] 2.16.84 0.1.481848.3.579.2.593 1959 Unknown [id number] 2.16.84 0.1.891040.3.579.2.593 1959 Unknown [id number] 2.16.84 0.1.874543.3.579.2.593 1959 Unknown [id number] 2.16.84 0.1.194915.3.579.2.593 1959 Unknown [id number] 2.16.84 0.1.171246.3.579.2.593 1959 Unknown [id number] 2.16.84 0.1.231555.3.579.2.593 1959 Unknown [id number] 2.16.84 0.1.784559.3.579.2.593 1959 Unknown [id number] 2.16.84 0.1.273635.3.579.2.593 1959 Unknown [id number] 2.16.84 0.1.031344.3.579.2.593 1959 Unknown [id number] 2.16.84 0.1.776038.3.579.2.1259 1959 Unknown [id number] 2.16.84 0.1.391079.3.579.2.1259 1959 Unknown [id number] 2.16.840 .1.955316.3.579.2.1259 Social History Date Type Detail Facility Former smoker Former smoker KC-G[address]rave[address] Work Phone: Tobacco smoking consumption unknown [facility] NEGATED: Highlighted row - - MG- Surgery-[address] Work Phone: Functional Status Date Assessment Result Facility Functional observable [facility] NEGATED: Highlighted row Functional performance Functional status health issues are not documented Disease YA-Nckesgs-[address] Work Phone: Mental Status Date Assessment Result Facility 02-12-2021 Cognitive functi ons [id number]:24 [facility] NEGATED: Highlighted row Cognitive function [Interpretation] Cognitive status health issues are not documented Disease OA-Rghplam-[address] Work Phone: Clinical Notes 02-11-2021 [...] our patients to inform us about any urwu-ruj-eauixhl medications or herbal remedies/nutritional supplements/alternative remedies. 2. [...] options with their primary care provider. [facility] 11-25-2022 Note CONSULTATION CONSULTATION DATE: 11/25/2022 [...] of his shoulders, bilaterally, without contrast. [facility] 09-03-2022 Note CONSULTATION CONSULTATION DATE: 09/03/2022 [...] three months' time, unless otherwise indicated. [facility] 06-01-2022 Note CONSULTATION CONSULTATION DATE: 06/01/2022 [...] b.i.d. basis. The patient also uses the [employer] heat rub to his cervical spine. The [...] in three months. CC: Shaikh Helena M.D. [facility] 05-18-2022 Note CONSULTATION CONSULTATION DATE: 05/18/2022 HISTORY [...] to proceed. CC: Shaikh Helena M.D. [facility] 05-18-2022 Note CONSULTATION PROCEDURE DATE: 05/18/2022 [...] be followed up in the office. [facility] 04-29-2022 Note CONSULTATION CONSULTATION DATE: 04/29/2022 [...] for his injections with Dr. Duncan. [facility] 01-27-2022 Note CONSULTATION CONSULTATION DATE: 01/27/2022 [...] in three month's time, unless otherwise indicated. [facility] Signed and Approved by: RAVINDER ANDERSEN . 02/04/2022 16:12:00 [facility] 02-12-2021 Note Send Summary: Discharge Summary Providers: [...] at Discharge: .Home Vital Signs: T PRBPSpO2 Value36.17247257/8395% Date/Time02/12 12: 12: 12: 12: 12:10 Range(35.4C - 36.4C ) (77 - 99 ) (17 - 18 ) (127 - 147 )/ (83 - 91 ) (92% - 96% ) As of 12-Feb-2021 12:10:00, patient is on 2 L/min of oxygen Date: Weight/Scale Type:Height: 12-Feb-2021 01:62349.8 kg / ttelnmtk498.8 cm Hospital Course: 60 yo male with [...] Call to Schedule in: 2 weeks Location: [address] [place] [address] Discharge Medications: Home Medication clarithromycin 250 mg [...] Last Updated: 13-Feb-2021 10:13 by Daniel Caballero) [facility] 02-11-2021 Note Post Operative Note: PreOp Diagnosis: diaphragm paralysis Post-Procedure Diagnosis: same Procedure: 1. laparoscopic L diaphragm plication 2. removal of bilateral diaphragm pacing wires 3. L pigtail chest tube placement Surgeon: Dr Daniel Caballero Resident/Fellow/Other Compressor Repairer: Dr Jane Yo Anesthesia: GETA Estimated Blood [...] Last Updated: 12-Feb-2021 07:53 by Daniel Caballero) [facility] 02-11-2021 Note History & Physical R eviewed: [...] Last Updated: 11-Feb-2021 15:50 by Daniel Caballero) [facility] Chief complaint Narrative - Reported An interactive audio and video telecommunication system which permits real time communications between the patient (at the originating site) and provider (at the distant site) was utilized to provide this telehealth service.Post op OT-Vmp[address]to-[address] Work Phone: Evaluation note Constitutional: Well developed, awake/alert/oriented x3, no distress, alert and cooperativeSkin: warm and dryEyes: PERRL, EOMI, clear scleraENMT: MMMHead/Neck: NCATRespiratory/Thorax: good chest expansion, thorax symmetricCardiovascular: RRRGastrointestinal: Nondistended, soft, non-tender, no rebound tenderness or guardingMusculoskeletal: moves all extremitiesExtremities: well perfusedNeurological: grossly intactPsychological: Appropriate mood and behavior [facility] History of Present illness Narrative He is [...] not he wants to follow-up with a artistic associate in our system. XA-[address] Work Phone: Hospital Discharge instructions [...] weekFollow Up Appointment 2:Physician/Dept/Service: Dr. Caballero - [facility] for Referral: hospital follow-up / diaphragm pacer removal, hemidiaphragm plicationLocation: [address] [address] Number: [phone] Form - Other Clinicians:Other Clinician Instructions: Please take your medications as directed. Please follow-up with Dr. Caballero and with your PCP as directed. You may remove dressings and shower Tuesday. No heavy lifting >20lbs or strenours activity for 3 weeks. If your symptoms return or worsen, please seek medical attention. Thank you for allowing us to participate in your care. [facility] Family History No Family History Records Found [...] section and content) DATE CREATED AUTHOR 04/04/2021 [employer] DATE CREATED AUTHOR AUTHOR'S ORGANIZ ATION 04/08/2021 [facility] DATE CREATED AUTHOR AUTHOR'S ORGANIZ ATION 12/31/2022 [facility] DATE CREATED AUTHOR AUTHOR'S ORGANIZ ATION 10/06/2023 [facility] FOR RECORDS PERTAINING TO PATIENTS WHO ARE [...] BE BASED ON THE PRIMARY CLINICAL RECORDS. [facility] [employer]. provides no warranty or guarantee of the accuracy or completeness of information in this document.
--- OUTSIDE RECORDS SUMMARY | 2023-11-05 11:44 | XMS_ITS | CCD ---
Author Name Unknown Address [address] [place] [address] Organization [facility] Care Team Providers Care Fire Apparatus Engineer Name Role Phone Chandan Cool Unavailable Unavailable Sid Ac Unavailable Unavailable Required, No Pcp Unavailable Unavailable Daniel Caballero Unavailable None, No PCP Unavailable Unavailable [facility] Primary Care Unavailable WEST, DR RADHA Gaxiola Consulting Unavailable DUNCAN ., DR LLUVIA Sheldon Attending Unavailable DUNCAN ., DR LLUVIA Sheldon Admitting Unavailable DUNCAN ., DR LLUVIA Sheldon Consulting Unavailable [facility] Primary Care Unavailable DUNCAN ., DR LLUVIA Sheldon Attending Unavailable DUNCAN ., DR LLUVIA Sheldon Consulting Unavailable DUNCAN ., DR LLUVIA Sheldon Admitting Unavailable [facility] Primary Care Unavailable DUNCAN ., DR LLUVIA Sheldon Attending Unavailable DUNCAN ., DR LLUVIA Sheldon Consulting Unavailable DUNCAN ., DR LLUVIA Sheldon Admitting Unavailable [facility] Primary Care Unavailable ANDERSEN .RAVINDER Consulting Unavailable DUNCAN ., DR LLUVIA Sheldon Admitting Unavailable DUNCAN ., DR LLUVIA Sheldon Attending Unavailable [facility] Primary Care Unavailable ANDERSEN .RAVINDER Consulting Unavailable DUNCAN ., DR LLUVIA Sheldon Admitting Unavailable DUNCAN ., DR LLUVIA Sheldon Attending Unavailable [facility] Primary Care Unavailable LAKSHMIPATHY ., NARENDRANATH Attending Nadira vailable LAKSHMIPATHY ., NARENDRANATH Admitting Nadira vailable [facility] Primary Care Unavailable LAKSHMIPATHY ., NARENDRANATH Attending Nadira vailable LAKSHMIPATHY ., NARENDRANATH Consulting Nadira vailable LAKSHMIPATHY ., NARENDRANATH Admitting Nadira vailable [facility] Primary Care Unavailable LAKSHMIPATHY ., NARENDRANATH Consulting [...] 17 MCG/ACT Inhalation Aerosol Solution Refills: 0 [place] MEMEMarionJo Start : 28-Nov-2017 Active lisinopril 20 [...] by: DOMINGA FLYNN Date: 2022-12-08 10:25 Normal [facility] MRI SHOULDER RT WO CONon MRI SHOULDER [...] by: DOMINGA FLYNN Date: 2022-12-08 10:35 Normal [facility] XR CSPINE OBL FLEX_EXTon XR CSPINE OBL [...] RADHA DIAZ Date: 2022-05-31 20:33 Normal [facility] Post Op (General Surgery)on 04-02-2021 Post [...] not he wants to 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 Provider Impressions He is [...] not he wants to 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 Chief Complaint An interactive [...] not he wants to 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 Active Problems COPD (chronic [...] MG Oral Tablet Results/Data Xray Chest 1 [id number] 04:27PMJim Faith Test NameResultFlagReference Xray Chest 1 View(Report) FINAL REPORT Interpreted by: МАРИНА MARCELO MD 02/12/21 16:52 Patient Name: RIGO JEFFERSON STUDY: CHEST 1 VIEW; 02/12/2021 4:27 pm INDICATION: chest tube removal. COMPARISON: Prior 11:07 a.m. radiograph. ACCESSION NUMBER(S): [id number] ORDERING CLINICIAN: JIM FAITH FINDINGS: Left basilar [...] Apr 02 2021 5:38PM EST (Author) Normal [facility] [employer] [facility] Admission Risk Screen - Adul ton 02-12-2021 Admission Risk Screen - Adult Allergies: Allergies: No Known Allergies: Patient Verification: New W ID Band Applied in my Departmentno Type of ID Patient is WearingW wristband, but not applied here Patient Transferred from Other Facility ([facility], [facility],etc)no Patient Identity Verified Bypatient ID Band FULL [...] AlertFor Ebola-like Symptoms: Isolate Patient and Notify Provider/Gang Sawyer For Contact: Notify Provider/Gang Sawyer Advance Directive: Advance Directive/DNRno (1) Advance Directive [...] Learning Preferencesverbal instruction Cultural Considerationsnone Developmental Considerationsnone Samaritan Considerationsnone Learning Assessment (Other Learner): Other learner availableno Depression Screen: During the past month, have you often been bothered by feeling down, depressed or hopelessno (1) During the past month, have you often had little interest or pleasure in doing thingsno (1) Have you had any thoughts of harming anyone elseno (1) [place] Suicide: Risk Screen Not Applicable/Able to Answerable to be screened In the Past Month: Have you wished you were or could go to sleep and not wake upno(1) In the Past Month: Have you had any actual thoughts of killing yourself no(1) Lifetime: Have you ever done, started to do, or prepared to do anything to end your lifeno(1) [place] Suicide Risknegative Adult Nutrition Screen: Have you [...] Pain (nonverbal)verbalization (more content not included)... Normal [facility] BASIC METABOLIC PANELon 02-03 Anion gap [Moles/Vol] 15 mmol/L Normal 10 - 20 [facility] Comment on above: Performed By: #### B MP #### [facility] [address] [place] [address] Calcium [Mass/Vol] 9.5 mg/dL Normal 8.6 - 10.6 [facility] Comment on above: Performed By: #### B MP #### [facility] [address] [place] [address] Chloride [Moles/Vol] 102 mmol/L Normal 98 - 107 [facility] Comment on above: Performed By: #### B MP #### [facility] [address] [place] [address] Creatinine [Mass/Vol] 0.98 mg/dL Normal 0.50 - 1.30 [facility] Comment on above: Performed By: #### B MP #### [facility] [address] [place] [address] GFR- AM. >60 Normal >60 [facility] Comment on above: Result Comment: CALC ULATIONS OF ESTIMATED GFR ARE PERFORMED USING THE MDRD STUDY EQUATION FOR THE IDMS-TRACEABLE CREATININE METHODS. CLIN CHEM 2007;53:766-72 Performed By: #### B MP #### [facility] [address] [place] [address] GFR-NON AM. >60 Normal >60 [facility] Comment on above: Performed By: #### B MP #### [facility] [address] [place] [address] Glucose [Mass/Vol] 133 mg/dL High 74 - 99 [facility] Comment on above: Performed By: #### B MP #### [facility] [address] [place] [address] HCO3 (Bld) [Moles/Vol] 24 mmol/L Normal 21 - 32 [facility] Comment on above: Performed By: #### B MP #### [facility] [address] [place] [address] Potassium [Moles/Vol] 4.3 mmol/L Normal 3.5 - 5.3 [facility] Comment on above: Performed By: #### B MP #### [facility] [address] [place] [address] Sodium [Moles/Vol] 137 mmol/L Normal 136 - 145 [facility] Comment on above: Performed By: #### B MP #### [facility] [address] [place] [address] Urea nitrogen [Mass/Vol] 17 mg/dL Normal 6 - 23 [facility] Comment on above: Performed By: #### B MP #### [facility] [address] [place] [address] CBCon 02-12-2021 Erythrocyte distribution width (RBC) [Ratio] 12.1 % Normal 11.5 - 14.5 [facility] Comment on above: Performed By: #### C BC #### [facility] [address] [place] [address] Hematocrit (Bld) [Volume fraction] 45.8 % Normal 41.0 - 52.0 [facility] Comment on above: Performed By: #### C BC #### [facility] [address] [place] [address] Hemoglobin (Bld) [Mass/Vol] 15.0 g/dL Normal 13.5 - 17.5 [facility] Comment on above: Performed By: #### C BC #### [facility] [address] [place] [address] MCHC (RBC) [Mass/Vol] 32.8 g/dL Normal 32.0 - 36.0 [facility] Comment on above: Performed By: #### C BC #### [facility] [address] [place] [address] MCV (RBC) [Entitic vol] 94 fL Normal 80 - 100 [facility] Comment on above: Performed By: #### C BC #### [facility] [address] [place] [address] NUCLEATED RBC 0.0 /100 WBC Normal 0.0-0.0 [facility] Comment on above: Performed By: #### C BC #### [facility] [address] [place] [address] Platelets (Bld) [#/Vol] 228 10*3/uL Normal 150 - 450 [facility] Comment on above: Performed By: #### C BC #### [facility] [address] [place] [address] RBC 4.85 x10E12/L Normal 4.50 - 5.90 [facility] [place] Comment on above: Performed By: #### C BC #### [facility] [address] [place] [address] WBC (Bld) [#/Vol] 12.8 10*3/uL High 4.4 - 11.3 [facility] Comment on above: Performed By: #### C BC #### [facility] [address] [place] [address] Clinical Event Note-POCon Clinical Event Note-POC Clinical [...] 00:41 by Nataliia Ferris ( (Resident)) Normal [facility] Daily Progress Note-Surgeryo n 02-12-2021 Daily [...] yet. Objective Data: Objective Information: T PRBPSpO2 Value35.10934012/8695% Date/Time02/12 6:4902/12 6:4902/12 6:4902/12 6:4902/12 6:49 Range(35.4C - 36.4C ) (77 - 99 ) (17 - 18 ) (127 - 147 )/ (86 - 91 ) (95% - 96% ) Pain reported at 02/12 2:54: 6 = Moderate ---- Intake and Output ----- Mn/Dy/Year TimeIntakeOutputNet Feb 12, 2021 6:00 [id number] Feb 11, 2021 10:00 [id number] The Intake and Output Totals for the last 24 hours are: IntakeOutputNet [id number] Physical Exam by System: Constitutional: Well developed, [...] Last Updated: 13-Feb-2021 10:13 by Daniel Caballero) [facility] Discharge Planning Osdr9qb 0 02-12-2021 Discharge Planning Note2 Discharge Planning: Needs Prior to Discharge (ex. Home Care Orders, IV/O2 prescriptions) Follow up appointments Discharge Barriers (ex. Avoidable days, wait guardianship, pt refuse leave) None Planned Dispositionhome Discharge DestinationHome [facility] < 20no [place] of Choice Explainedyes preference Anticipated Discharge [id number] Discharge Planning 02/12/2021 0135 Discharge Plan Patient transferred from [place] [address] from PACU for diaphragm plication. Pt is A&O times 4. at 3 liters oxygen. 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 Pt emergency medicare contact specialist Sahil Joe- son. Pt have valuable belongings [...] disposition: Home Potential Barriers: none ADOD: 02/12. media services coordinator will continue to follow for discharge planning needs. Franny Gilliam RN, Transitional Desktop Publishing Specialist/TCC, pager [phone] Discharge note: 02/12/21 @ 1735: PT discharged home at this time. pts peripheral IV taken out prior to DC. pt given DC instructions. pt verbalized understanding. pt refused transport and walked downstairs with his son.---Erika stock RN Assessment: Discharge Planning Assessment [id number] Primary Contact Name and NumberAdam [phone](1) Stated Reason for Admissiondiaphragm plication(2) Arrived FromOR (2) Lives Withparent(s)(2) Living Arrangementshouse(2) Resource/Environmental Concernsnone(2) Anticipated Transition [facility](2) Services Anticipated at Transitionnone(2) Discharge Documentation: Discharge/Transfer Date/Unwj49-Ybo-1987 17:35 Discharge Modeambulatory Discharged Accompanied Byfamily member Transportation Methodprivate car Valuables/Medications/Belo ngings Returnedyes Final DispositionHome Electronic Signatures: Franny Gilliam (CLIN COOR) (Signed 12-Feb-2021 13:19) Authored: Discharge Planning Erika Sotck (RN) (Signed 12-Feb-2021 17:40) Authored: Discharge Planning, Discharge Documentation Mary Beth Holcomb (RN) (Signed 12-Feb-2021 01:41) Authored: Discharge Planning, Assessment Last Updated: 12-Feb-2021 17:40 by Erika Stock (RN) References: 1. Data Referenced From Patient Profile - Preop v2 11-Feb-2021 12:02 2. Data Referenced From Patient Profile - Adult v2 12-Feb-2021 01:31 Normal [facility] Discharge [id number] 021 Discharge Profile2 Discharge Orders: Anticipated Discharge Date: Anticipated Discharge [id number] DNAR: DNAR Status: none Call Provider If [...] hemidiaphragm plication Call to Schedule in2 weeks [id number] Hilario Crawford [address] Phone [phone] Other Clinician Instructions: Other Instructions: Other Clinician [...] Appointments, Other Clinician Instructions, Gold Form - Groundskeeper Summary Last Updated: 12-Feb-2021 15:27 by Jim Faith ( (Resident)) Normal [facility] Laboratory - Chemistry and C hemistry - challengeon 02-12-2021 Anion gap [Moles/Vol] 15 mmol/L 10 - 20 MV-Oavfklj-F [address] Work Phone: Calcium [Mass/Vol] 9.5 mg/dL 8.6 - 10.6 MG-Tino raysa-G [address] Work Phone: Chloride [Moles/Vol] 102 mmol/L 98 - 107 TS-Vecwdiz-V [address] Work Phone: CO2 [Moles/Vol] 24 mmol/L 21 - 32 MG-Surger y-G reen [facility] Work Phone: Creatinine [Mass/Vol] 0.98 mg/dL See Below EE-Pdoxedo-[address] Work Phone: Comment on above: Reference Range: 0.5 0 - 1.30 Glucose [Mass/Vol] 133 mg/dL above high threshold 74 - 99 ML-[facility]mbqdoo[facility] Work Phone: Potassium [Moles/Vol] 4.3 mmol/L 3.5 - 5.3 PR-Okbxaeu-I [facility] [address] Work Phone: Sodium [Moles/Vol] 137 mmol/L 136 - 145 MG-Tino raysa-G [facility] Work Phone: Urea nitrogen [Mass/Vol] 17 mg/dL 6 - 23 HS-Wfcdhtp-A [facility] [address] Work Phone: Laboratory - Hematology and Cell countson 02-12-2021 Erythrocyte distribution width (RBC) [Ratio] 12.1 % See Below AW-Uussvzs-Z [facility] [address] Work Phone: Comment on above: Reference Range: 11. 5 - 14.5 Hematocrit (Bld) [Volume fraction] 45.8 % See Below GQ-Fdtgjbb-N [address] Work Phone: Comment on above: Reference Range: 41. 0 - 52.0 Hemoglobin (Bld) [Mass/Vol] 15.0 g/dL See Below GB-Uzqpaqj-T [address] Work Phone: Comment on above: Reference Range: 13. 5 - 17.5 MCHC (RBC) [Mass/Vol] 32.8 g/dL See Below GK-Xahebaj-[address] Work Phone: Comment on above: Reference Range: 32. 0 - 36.0 MCV (RBC) [Entitic vol] 94 fL 80 - 100 LF-Aluagmg-W [address] Work Phone: Platelets (Bld) [#/Vol] 228 10*3/uL 150 - 450 LB-Lokopwx-X [address] Work Phone: RBC (Bld) [#/Vol] 4.85 {x10E12/L} See Below MG -Surgery-[facility] Work Phone: Comment on above: Reference Range: 4.5 0 - 5.90 WBC (Bld) [#/Vol] 12.8 10*3/uL above high threshold 4.4 - 11.3 JS-Pthrncu-X [facility] Work Phone: No Panel Informationon 02-12 >60 >60 WT-Ttlywiq-H [place] [address] Work Phone: Comment on above: CALCULATIONS OF LANRE MATED GFR ARE PERFORMED USING THE MDRD STUDY EQUATION FOR THE IDMS-TRACEABLE CREATININE METHODS. CLIN CHEM 2007;53:766-72 0.0 {/100_WBC} 0.0-0.0 MG-Surgery -G [place] [address] Work Phone: Order Reconciliationon 02-12 Order Reconciliation [...] tab(s) orally 2 times a day Normal [facility] Patient Profile - Adult v2on 02-12-2021 Patient Profile - Adult v2 Profile: Initial Info: How to be AddressedDel(1) Spoken Language PreferredEnglish (1) Stated Reason for Admissiondiaphragm plication Patient Belongingsremains with patient Patient Belongings Remaining with Patientcash/credit card; clothing Arrived FromOR Medications Brought to Hospitalno Are you currently using the Personal Electronic Health Record or [employer] (1) Wants Family/Rep Notified of Admissionyes, primary contact Notify PCPnotify PCP Informed of Patient Visiting Rightsyes General Health: Blood Avoidance/Restrictionsnone (1) Previous Transfusion Reactionno(2) Weight in kg109.8 kilogram(s)(3) Weight in tsz648 pound(s) Weight Methodactual (measured) (3) Scale Typestanding [...] From 1. Vital Signs 11-Feb-2021 12:02 Normal [facility] Radiologyon 02-12-2021 XR Chest Single view Normal WY-Bjcokcc-[address] Work Phone: XR Chest Single view Normal NZ-Vpvvmgw-A [address] Work Phone: XR Chest Single view Normal YF-Cuaztqk-E [address] Work Phone: TH CHEST 1 VIEWon 02-12-2021 TH CHEST 1 VIEW Patient Name: RIGO JEFFERSON STUDY: CHEST 1 VIEW; 02/12/2021 4:27 pm INDICATION: chest tube removal. COMPARISON: Prior 11:07 a.m. radiograph. ACCESSION NUMBER(S): [id number] ORDERING CLINICIAN: JIM FAITH FINDINGS: Left basilar [...] Electronically signed by: МАРИНА MARCELO MD Normal [facility] TH CHEST 1 VIEW Patient Name: RIGO JEFFERSON STUDY: CHEST 1 VIEW; 02/12/2021 11:58 am INDICATION: chest tube wet seal. COMPARISON: 7:02 a.m. radiograph. ACCESSION NUMBER(S): [id number] ORDERING CLINICIAN: JIM FAITH FINDINGS: Left basilar [...] Electronically signed by: МАРИНА MARCELO MD Normal [facility] CHEST 1 VIEW Patient Name: RIGO JEFFERSON STUDY: CHEST 1 VIEW; 02/12/2021 7:13 am INDICATION: POD 1 s/p diaphragm plication. COMPARISON: 02/11/2021. ACCESSION NUMBER(S): [id number] ORDERING CLINICIAN: JANE YO FINDINGS: Left basilar [...] Electronically signed by: МАРИНА MARCELO MD Normal [facility] No Panel Informationon 02-11 VK[place] [address] Work Phone: [facility] [place] [place] [address] Patient Name: RIGO JEFFERSON : 1960 Date of Service: 02/11/2021 Patient Location: [place] [address] Patient Type: I Surgeon: Daniel Caballero MD Report Type: Operative Reports PREOPERATIVE DIAGNOSIS: Chronic respiratory failure, left diaphragm dysfunction. POSTOPERATIVE DIAGNOSIS: Chronic respiratory failure, left diaphragm dysfunction. OPERATION/PROCEDURE: Laparoscopic left diaphragm plication with removal of previous diaphragm pacing wires. SURGEON: Daniel Caballero MD FOOTWEAR SALES REPRESENTATIVE(S): Jane Yo MD. There was no available resident. ANESTHESIA: LOCATION: [facility]. CLINICAL NOTE: This is a [...] TT: 02/12/2021 12:44 PM EST DICTATION NUMBER: [id number] BRIE JOB NUMBER: [id number] CC: PT STATES NONE PCP Electronic Signatures: Daniel Caballero) (Signed on 13-Feb-2021 10:15) Authored Unsigned, Draft (SYS GENERATED) (Entered on 12-Feb-2021 12:44) Entered Last Updated: 13-Feb-2021 10:15 by Daniel Caballero) Normal [facility] Order Reconciliationon 02-11 Order Reconciliation Page 1 Admission Reconciliation Document Reconciliation Type: Admission from OR requested on behalf of Jane Yo (Physician) done by Jane Yo) Admission from OR - Reconciliation: 11-Feb-2021 18:31 by: Jane Yo) Home MedicationsEnteredLast Dose TakenReconciled with current Order Reconciliation Comment/ Additional Information Kristina 24 Hour Allergy oral tablet 1 tab(s) orally once a qtq82-[id number]-Feb-2021 AM Reviewed and Held clarithromycin 250 mg oral tablet 250 milligram(s) orally once a day [id number] Clarithromycin Tablet (BIAXIN)DOSE = 250 mg Oral Every 24 Hoursclarithromycin 250 mg oral tablet continued as the inpatient order Clarithromycin diclofenac sodium 50 mg oral delayed release tablet 1 tab(s) orally 2 times a jre42-Plm-555848-Fkm-1397 AM Reviewed and Held oxycodone-acetaminophen 5 mg-300 mg oral tablet 1 tab(s) orally 2 times a day [id number]-0312 AM Reviewed and Held Additional Current Orders [...] 15 minute(s)Clinician Notes: Carlota-operative order ONLY Normal [facility] Patient Profile - Preop v2on 02-11-2021 Patient Profile - Preop v2 Profile: Initial Info: How to be AddressedDel(1) Spoken Language PreferredEnglish (1) Source of Informationpatient Are you currently using the Personal Electronic Health Record or [employer]ano (1) Are you interested in learning more about [employer] for the management of your healthnot at this time Stated Reason for AdmissionL pulling of wires/pulling lung down Primary Contact Name and NumberAdam [phone] Patient Belongingspatient educated regarding responsibility for personal items Medications Brought to Hospitalno General Health: Weight in kg109.8 kilogram(s) Weight in txj377 pound(s) Weight Methodactual (measured) Scale Typestanding Height [...] Learning Preferencesverbal instruction Cultural Considerationsnone Developmental Considerationsnone Samaritan Considerationsnone Other learner availableno [place] RiskPatient location auto qualifies him/her for HIGH RISK. Are there any cultural, spiritual, orthodoxy practices/values/needs that are important for us to [...] Profile - Adult v2 12-Dec-2017 16:00 Normal [facility] Preop Checkliston 02-11-2021 Preop Checklist Preop Checklist: Preop Checklist: Arrival [id number]-Uqh-6500 Arrival Time11:48 Procedure TypeL laparoscopic diaphragm plication Temperature C36.1 degrees C Temperature F96.9 degrees F Heart Rate70 beats per minute Respiratory Rate12 breath per minute Blood Pressure Sbijndrm292 mm/Hg Blood Pressure Nwbcpswsj27 mm/Hg NPO Pithev69-Glr-4342 00:00 ID Band Onyes Allergy Bandno known [...] 11-Feb-2021 12:02 by Jany Ann (RN) Normal [facility] Radiologyon 02-11-2021 XR Chest Single view Please click on the link to view the study images Normal VL-[place]dg[place]rih[place] [address] Work Phone: [facility] Surgical Pathology Depar tmenton 02-11-2021 [facility] Surgical Pathology Department Name RIGO JEFFERSON Pathologist: JACINTO MURRIETA MD Date of Procedure: 02/11/2021 Date Received: 02/12/2021 Date Reported 02/19/2021 Submitting Physician: DANIEL CABALLERO M.D. Location: [facility] Copy To/Referring/Attending: DANIEL CABALLERO M.D. Other External [...] this case. Clinical History: Physician Contact Number: [id number] Fixative (A): Fresh Clinical Diagnosis History: disorders of diaphragm Specimens Submitted As: A: PACING WIRE Gross Description: Received in formalin, labeled with the patient's name and hospital number, are multiple wires with a piece of adipose tissue attached measuring 3.0 x 1.6 x 1.0 cm. A photograph is taken. The attached soft tissue is submitted entirely in one cassette. EXB exb/02/12/2021 [facility] Department of Pathology [id number] [place] [address] Normal [facility] Comment on above: Performed By: #### U HCS ####[facility] Surgical Pathology [address] [place] [address] CORONAVIRUS 2019, SCREEN ASY MPTOMATICon 02-10-2021 SARS-CoV-2 (COVID-19) RNA BECCA+probe Ql (Unsp spec) Not detected Normal Not Detected [facility] Comment on above: Result Comment: . [...] patient management decisions. Fact sheet for providers: https://www.fda.gov/media/958395/download Fact sheet for patients: https://www.fda.gov/media/025462/download This test has received FDA Emergency Use Authorization (EUA) and has been verified by [facility] ([facility]). This test is only authorized for the duration of time that circumstances exist to justify the authorization of the emergency use of in vitro diagnostic tests for the detection of SARS-CoV-2 virus and/or diagnosis of COVID-19 infection under section 564(b)(1) of the Act, 21 U.S.C. 360bbb-3(b)(1), unless the authorization is terminated or revoked sooner. [facility] is certified under CLIA-88 as qualified to perform high complexity testing. Testing is performed in the [facility] laboratories located at [address] [place] [address]. Performed By: #### C OVSC #### [place] [address] Covid 19 Resultson SARS-CoV-2 (COVID-19) RNA BECCA+probe [...] You may also be contacted by the [facility] to see if any of your [...] or Naproxen (Aleve) can also be used. Dcui-abl-zifwkbo cough and cold medicines can be used according to the instructions on the package. Some xrwk-cyx-dsfrgqd medicines also contain acetaminophen. Make sure you [...] water are not available, use alcohol-based hand retail sales professional. Avoid touching your eyes, nose, and mouth [...] 24 alem (more content not included)... Normal [facility] CORONAVIRUS 2019, SCREEN ASY MPTOMATICon 02-09-2021 Lab Specimen Source Nasal, Nasopharyngeal Normal [facility] Comment on above: Performed By: #### C OVSC #### [facility] [address] [place] [address] Coronavirus 2019 RNA by PCR, Screening Asymptomticon 02-09-2021 Coronavirus 2019 RNA by PCR, Screening Asymptomtic Not detected Normal See Below BQ[facility]Fvnyzol[facility] [facility] [address] Work Phone: Comment [...] make patient management decisions.Fact sheet for providers: https://www.fda.gov/media/494710/downloadFact sheet for patients: https://www.fda.gov/media/973174/downloadThis test has received FDA Emergency Use Authorization (EUA) and has been verified by [facility] ([facility]). This test is only authorized for the duration of time that circumstances exist to justify the authorization of the emergency use of in vitro diagnostic tests for the detection of SARS-CoV-2 virus and/or diagnosis of COVID-19 infection under section 564(b)(1) of the Act, 21 U.S.C. 360bbb-3(b)(1), unless the authorization is terminated or revoked sooner. [facility] is certified under CLIA-88 as qualified to perform high complexity testing. Testing is performed in the [facility] laboratories located at [address] [place] [address]. BASIC METABOLIC PANELon 05-2 Anion gap [Moles/Vol] 13 mmol/L Normal 10 - 20 [facility] Comment on above: Performed By: #### B MP ####[id number] [place] [address] Calcium [Mass/Vol] 9.7 mg/dL Normal 8.6 - 10.6 [facility] Comment on above: Performed By: #### B MP ####[id number] [place] [address] Chloride [Moles/Vol] 108 mmol/L High 98 - 107 [facility] Comment on above: Performed By: #### B MP ####[id number] [place] [address] Creatinine [Mass/Vol] 1.04 mg/dL Normal 0.50 - 1.30 [facility] Comment on above: Performed By: #### B MP ####[id number] [place] [address] GFR- AM. >60 Normal >60 [facility] Comment on above: Result Comment: CALC ULATIONS OF ESTIMATED GFR ARE PERFORMED USING THE MDRD STUDY EQUATION FOR THE IDMS-TRACEABLE CREATININE METHODS. CLIN CHEM 2007;53:766-72 Performed By: #### B MP ####[id number] [place] [address] GFR-NON AM. >60 Normal >60 [facility] Comment on above: Performed By: #### B MP ####[id number] [place] [address] Glucose [Mass/Vol] 91 mg/dL Normal 74 - 99 [facility] Comment on above: Performed By: #### B MP ####[id number] [place] [address] HCO3 (Bld) [Moles/Vol] 29 mmol/L Normal 21 - 32 [facility] Comment on above: Performed By: #### B MP ####[id number] [place] [address] Potassium [Moles/Vol] 4.6 mmol/L Normal 3.5 - 5.3 [facility] Comment on above: Performed By: #### B MP ####[id number] [place] [address] Sodium [Moles/Vol] 145 mmol/L Normal 136 - 145 [facility] Comment on above: Performed By: #### B MP ####[id number] [place] [address] Urea nitrogen [Mass/Vol] 13 mg/dL Normal 6 - 23 [facility] Comment on above: Performed By: #### B MP ####[id number] [place] [address] CBCon 01-27-2021 Erythrocyte distribution width (RBC) [Ratio] 12.2 % Normal 11.5 - 14.5 [facility] Comment on above: Performed By: #### C BC ####[id number] [place] [address] Hematocrit (Bld) [Volume fraction] 46.7 % Normal 41.0 - 52.0 [facility] Comment on above: Performed By: #### C BC ####[id number] [place] [address] Hemoglobin (Bld) [Mass/Vol] 15.1 g/dL Normal 13.5 - 17.5 [facility] Comment on above: Performed By: #### C BC ####[id number] [place] [address] MCHC (RBC) [Mass/Vol] 32.3 g/dL Normal 32.0 - 36.0 [facility] Comment on above: Performed By: #### C BC ####[id number] [place] [address] MCV (RBC) [Entitic vol] 96 fL Normal 80 - 100 [facility] Comment on above: Performed By: #### C BC ####[id number] [place] [address] NUCLEATED RBC 0.0 /100 WBC Normal 0.0-0.0 [facility] Comment on above: Performed By: #### C BC ####[id number] [place] [address] Platelets (Bld) [#/Vol] 209 10*3/uL Normal 150 - 450 [facility] Comment on above: Performed By: #### C BC ####[id number] [place] [address] RBC 4.85 x10E12/L Normal 4.50 - 5.90 [facility] [place] Comment on above: Performed By: #### C BC ####[id number] [place] [address] WBC (Bld) [#/Vol] 7.2 10*3/uL Normal 4.4 - 11.3 [facility] Comment on above: Performed By: #### C BC ####[id number] [place] [address] Follow Up (General Surgery)o n 01-27-2021 Follow [...] EKG; Status:Hold For - Scheduling; Requested for:27Jan2021; Perform:[facility] Prince Geller 1800; Due:27Apr2021;Ordered; For:Diaphragm dysfunction, HTN [...] routine follow up. History of Present IllnessMr. Yanci came in today accompanied by his son. 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 He was turning the device off 1-2 [...] MG Oral Tablet Vitals Vital Signs Recorded: 27Kuh8042 11:12AM Kltalwufxdv69.1 F Heart Rate77 Idnaxtfv657 Mecelxquh52 Otwcah152 lb BMI Ciifcezzre46.64 kg/m2 BSA Calculated2.33 Tobacco Useb) No Physical [...] the r (more content not included)... Normal [email or web address] No Panel Informationon 01-27 [email or web address] 1:8080 [email or web address]?R etrieveTestByDateTime?Sherita ouiPR=[id number]&Date=&Time=13%3a24%3a34%3a 00&TestType=ECG&Site=1&Out putType=PDF&Ext=PDF BQ-Ojizlxu-Q [address] Work Phone: Normal sinus rhythm MG-Ramos rgery-[address] Work Phone: [phone] Normal NQ-Kastpkc-O [address] Work Phone: [phone] 1 GW-Ptfinos-P [address] Work Phone: [phone] 1 ZR-Auxkdnu-Y [address] Work Phone: [phone] 1 DK-Yodygaq-K [address] Work Phone: [phone] 1 GQ-Grwobxj-[address] Work Phone: [phone] 1 LD-Xwmscnv-M [address] Work Phone: [phone] 1 OG-Jzvnozj-K [address] Work Phone: [phone] 1 GK-Gpqdhaj-H [address] Work Phone: [phone] 1 SQ-Piyvuit-I [address] Work Phone: [phone] 1 JK-Snhqbxf-F [address] Work Phone: [phone] 1 NV-Rcwesim-N [address] Work Phone: [phone] 1 SQ-Vaziunk-D [address] Work Phone: [phone] 1 OL-Qsasisz-T [address] Work Phone: [phone] 1 RP-Pmjtsin-O [address] Work Phone: [phone] 1 MS-Mqgrssk-L [address] Work Phone: Radiologyon 01-27-2021 XR Chest 2 Views Normal MG-Surge ry-[address] Work Phone: TH CHEST 2 VIEW PA AND LATon 01-27-2021 TH CHEST 2 VIEW PA AND LAT Patient Name: RIGO JEFFERSON STUDY: TH CHEST 2 VIEW PA AND LAT; 01/27/2021 11:00 am INDICATION: chronic hypoventilation. COMPARISON: Chest radiograph 04/03/2019 ACCESSION NUMBER(S): [id number] ORDERING CLINICIAN: DANIEL CABALLERO FINDINGS: Inspiratory and [...] left basilar atelectasis/scarring. Electronically signed by: ANGI CIACEDO MD Normal [facility] Tobacco Screening.on 021 Tobacco use status [facility] b) No WK-Kwvpiyc-[address] Work Phone: Tobacco Screening. b) No MG-Tino raysa-[address] Work Phone: Otheron 04-03-2019 XR Chest 2 views Interpreted by: ISAK04/03/19 14:06MRN: [id number] Name: RIGO JEFFERSON STUDY:CHEST 2 VIEW PA [...] Electronically signed by: ISAK 04/03/19 14:06 Normal OQ-Fyijvbi-R [address] Work Phone: Vital Signs Date Time Vital Sign Value Performing Clinician Facility 02-12-2021 14:10-0400 SaO2% (BldA) [Mass fraction] 95 % No Pcp Required [facility] 02-12-2021 14:00-0400 Body temperature 97.16 [degF] No Pcp Required [facility] 02-12-2021 14:00-0400 Diastolic blood pressure 83 mm[Hg] No Pcp Required [facility] 02-12-2021 14:00-0400 Heart rate 81 /min No Pcp Required [facility] 02-12-2021 14:00-0400 Respiratory rate 18 /min No Pcp Required [facility] 02-12-2021 14:00-0400 Systolic blood pressure 131 mm[Hg] No Pcp Required [facility] 02-12-2021 03:31-0400 Body height 182.8 cm No Pcp Required [facility] 02-12-2021 03:31-0400 Body weight 109.8 kg No Pcp Required [facility] 01-27-2021 11:12-0400 Body mass index (BMI) [Ratio] 33.64 kg/m2 Daniel Caballero MD Work Phone: IK-Wng[address]wtq[address] Work Phone: 01-27-2021 11:12-0400 Body surface area Derived from formula 2.33 m2 Daniel Caballero MD Work Phone: JX-[address]yn[address] Work Phone: 01-27-2021 11:12-0400 Body temperature 96.1 [degF] Daniel Caballero MD Work Phone: RR-Jghgfcm-[address] Work Phone: 01-27-2021 11:12-0400 Body weight 112.49 kg Daniel Caballero MD Work Phone: UX-Gmmqsah-[address] Work Phone: 01-27-2021 11:12-0400 Diastolic blood pressure 85 mm[Hg] Daniel Caballero MD Work Phone: JG-Rlkmswz-X[address] Work Phone: 01-27-2021 11:12-0400 Heart rate 77 /min Daniel Caballero MD Work Phone: WL-Lczuvgh-[address] Work Phone: 01-27-2021 11:12-0400 Systolic blood pressure 157 mm[Hg] Daniel Caballeor MD Work Phone: JM-Aenhxrd-[address] Work Phone: 04-03-2019 15:37-0400 BMI (Body Mass Index) 30.11 kg/m2 Chandan Auburn [facility] -[place] [address] Work Phone: 04-03-2019 15:37-0400 Body Temperature 97.9 [degF] Chandan Travon EL-Efuwyjs-W[address] Work Phone: 04-03-2019 15:37-0400 Body weight 100.7 kg Chandan Travon RM-Stujvcm-Yxtlp ll 2099 Work Phone: 04-03-2019 15:37-0400 BP Diastolic 74 mm[Hg] Chandan Travon AZ-Quzbzln-Lnpql [address]99 Work Phone: 04-03-2019 15:37-0400 BP Systolic 121 mm[Hg] Chandan Travon GZ-Oosdgdt-Pjrxr ll 2099 Work Phone: 04-03-2019 15:37-0400 BSA (Body Surface Area) 2.23 m2 Chandan Auburn QK-Qokdybn-Owtiwdb 2099 Work Phone: 04-03-2019 15:37-0400 Height 182.88 cm Chandan Travon JU-Icrykfo-Guplo ll 2099 Work Phone: 04-03-2019 15:37-0400 Pulse (Heart Rate) 58 /min Chandan Cool DM-Ethhwzg-[address] Work Phone: Encounters Encounter Date [...] related to original px No PCP None SE-[address]ou[address] Work Phone: Start: 02-20-2021 Chart Update No PCP None [facility]-Surgery [facility] Work Phone: Start: 02-11-2021 End: 02-12-2021 Evaluation and management of inpatient Daniel Caballero [facility] [address] 55 Rm 5511 01 Start: 01-27-2021 Chart Update Daniel Caballero MD Work Phone: DB-Hriiens-[address] Work Phone: Start: 04-03-2019 Patient encounter procedure Chandan Cool UY-Tomuhzf-Bsdqexh [address] Work Phone: Start: 01-12-2018 Patient encounter procedure Chnadan Cool LM-Csptkil-[address] Work Phone: Start: 11-28-2017 Patient encounter procedure Chandan Cool YE-Ufsqgmf-Xe[address] Work Phone: Start: 11-28-2017 Patient encounter procedure Chandan Cool IM-Svxwmrg-[address] Work Phone: Procedures Date Procedure [...] End: 11-Feb-2022 Ordered: 11-Feb-2021 Jane Yo Intent [facility] Payers Date Payer Category Payer Unknown [id number] 2018 Unknown 1960 Medicare [id number] 1960 Unknown [id number] 2.16.84 0.1.070029.3.579.2.593 1960 Unknown [id number] 2.16.84 0.1.607800.3.579.2.593 1959 Unknown [id number] 2.16.84 0.1.549987.3.579.2.593 1959 Unknown [id number] 2.16.84 0.1.746018.3.579.2.593 1959 Unknown [id number] 2.16.84 0.1.749707.3.579.2.593 1959 Unknown [id number] 2.16.84 0.1.836938.3.579.2.593 1959 Unknown [id number] 2.16.84 0.1.602470.3.579.2.593 1959 Unknown [id number] 2.16.84 0.1.181286.3.579.2.593 1959 Unknown [id number] 2.16.84 0.1.120640.3.579.2.593 1959 Unknown [id number] 2.16.84 0.1.144082.3.579.2.593 1959 Unknown [id number] 2.16.84 0.1.471712.3.579.2.1259 1959 Unknown [id number] 2.16.84 0.1.561754.3.579.2.1259 1959 Unknown [id number] 2.16.840 .1.257517.3.579.2.1259 Social History Date Type Detail Facility Former smoker Former smoker TG-[address] Work Phone: Tobacco smoking consumption unknown [facility] NEGATED: Highlighted row - - MG- Surgery-[address] Work Phone: Functional Status Date Assessment Result Facility Functional observable [facility] NEGATED: Highlighted row Functional performance Functional status health issues are not documented Disease NV-Vadupxy[address] Work Phone: Mental Status Date Assessment Result Facility 02-12-2021 Cognitive functi ons [id number]:24 [facility] NEGATED: Highlighted row Cognitive function [Interpretation] Cognitive status health issues are not documented Disease HB-Hqhevxu-[address] Work Phone: Clinical Notes 02-11-2021 [...] our patients to inform us about any kgyj-jlk-mqqkewi medications or herbal remedies/nutritional supplements/alternative remedies. 2. [...] options with their primary care provider. [facility] 11-25-2022 Note CONSULTATION CONSULTATION DATE: 11/25/2022 [...] of his shoulders, bilaterally, without contrast. [facility] 09-03-2022 Note CONSULTATION CONSULTATION DATE: 09/03/2022 [...] three months' time, unless otherwise indicated. [facility] 06-01-2022 Note CONSULTATION CONSULTATION DATE: 06/01/2022 [...] b.i.d. basis. The patient also uses the VicAllocab heat rub to his cervical spine. The [...] in three months. CC: Shaikh Helena M.D. [facility] 05-18-2022 Note CONSULTATION CONSULTATION DATE: 05/18/2022 HISTORY [...] to proceed. CC: Shaikh Helena M.D. [facility] 05-18-2022 Note CONSULTATION PROCEDURE DATE: 05/18/2022 [...] be followed up in the office. [facility] 04-29-2022 Note CONSULTATION CONSULTATION DATE: 04/29/2022 [...] for his injections with Dr. Duncan. [facility] 01-27-2022 Note CONSULTATION CONSULTATION DATE: 01/27/2022 [...] in three month's time, unless otherwise indicated. [facility] Signed and Approved by: RAVINDER ANDERSEN . 02/04/2022 16:12:00 [facility] 02-12-2021 Note Send Summary: Discharge Summary Providers: [...] at Discharge: .Home Vital Signs: T PRBPSpO2 Value36.60035535/8395% Date/Time02/12 12: 12: 12: 12: 12:10 Range(35.4C - 36.4C ) (77 - 99 ) (17 - 18 ) (127 - 147 )/ (83 - 91 ) (92% - 96% ) As of 12-Feb-2021 12:10:00, patient is on 2 L/min of oxygen Date: Weight/Scale Type:Height: 12-Feb-2021 01:50413.8 kg / gtuopqln211.8 cm Hospital Course: 60 yo male with [...] Call to Schedule in: 2 weeks Location: [address] [place] [address] Discharge Medications: Home Medication clarithromycin 250 mg [...] Last Updated: 13-Feb-2021 10:13 by Daniel Caballero) [facility] 02-11-2021 Note Post Operative Note: PreOp Diagnosis: diaphragm paralysis Post-Procedure Diagnosis: same Procedure: 1. laparoscopic L diaphragm plication 2. removal of bilateral diaphragm pacing wires 3. L pigtail chest tube placement Surgeon: Dr Daniel Caballero Resident/Fellow/Other Community Health Promoter: Dr Jane Yo Anesthesia: GETA Estimated Blood [...] Last Updated: 12-Feb-2021 07:53 by Daniel Caballero) [facility] 02-11-2021 Note History & Physical R [...] Last Updated: 11-Feb-2021 15:50 by Daniel Caballero) [facility] Chief complaint Narrative - Reported An interactive audio and video telecommunication system which permits real time communications between the patient (at the originating site) and provider (at the distant site) was utilized to provide this telehealth service.Post op PD-[address] Work Phone: Evaluation note Constitutional: Well developed, awake/alert/oriented x3, no distress, alert and cooperativeSkin: warm and dryEyes: PERRL, EOMI, clear scleraENMT: MMMHead/Neck: NCATRespiratory/Thorax: good chest expansion, thorax symmetricCardiovascular: RRRGastrointestinal: Nondistended, soft, non-tender, no rebound tenderness or guardingMusculoskeletal: moves all extremitiesExtremities: well perfusedNeurological: grossly intactPsychological: Appropriate mood and behavior [facility] History of Present illness Narrative He [...] not he wants to 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 GM-[address] Work Phone: Hospital Discharge instructions [...] weekFollow Up Appointment 2:Physician/Dept/Service: Dr. Caballero - [facility] for Referral: hospital follow-up / diaphragm pacer removal, hemidiaphragm plicationLocation: [address] [address] Number: [phone] Form - Other Clinicians:Other Clinician Instructions: Please take your medications as directed. Please follow-up with Dr. Caballero and with your PCP as directed. You may remove dressings and shower Tuesday. No heavy lifting >20lbs or strenours activity for 3 weeks. If your symptoms return or worsen, please seek medical attention. Thank you for allowing us to participate in your care. [facility] Family History No Family History Records [...] section and content) DATE CREATED AUTHOR 04/04/2021 [employer] DATE CREATED AUTHOR AUTHOR'S ORGANIZ ATION 04/08/2021 [facility] DATE CREATED AUTHOR AUTHOR'S ORGANIZ ATION 12/31/2022 [facility] DATE CREATED AUTHOR AUTHOR'S ORGANIZ ATION 10/06/2023 [facility] FOR RECORDS PERTAINING TO PATIENTS WHO [...] BE BASED ON THE PRIMARY CLINICAL RECORDS. [facility] [employer] [facility]. provides no warranty or guarantee of the accuracy or completeness of information in this document.
[2023-11-05 12:49] LABS: Prostate Specific Antigen Dx 0.97 ng/mL (<=4.00)
[2023-11-06 08:08] LABS: Sex Horm Binding Glob, Serum 39.6 nmol/L (19.3-76.4); Testosterone >1500 ng/dL (264-916)
== END 2023-11-05 11:43 | disposition home or self-care (01) ==
LOC: LAB 11:42
PROVIDERS: PCP Internal Medicine; Visit Provider Internal Medicine
DX: E23.0 Hypopituitarism (principal); R68.82 Decreased libido
CPT/HCPCS: 36415; 82728; 84153; 84270; 84403

== ENCOUNTER 2023-11-05 11:43 | Outpatient (OUT) | payer OTHER, SELFPAY ==
--- OUTSIDE RECORDS SUMMARY | 2023-11-04 14:25 | XMS_ITS | CCD ---
Author Name Unknown Address [address] [place] [address] Organization [facility] Care Team Providers Care Granite Installer Name Role Phone Chandan Cool Unavailable Unavailable Sid Ac Unavailable Unavailable Required, No Pcp Unavailable Unavailable Daniel Caballero Unavailable None, No PCP Unavailable Unavailable [facility] Primary Care Unavailable WEST, DR RADHA Gaxiola Consulting Unavailable DUNCAN ., DR LLUVIA Sheldon Attending Unavailable DUNCAN ., DR LLUVIA Sheldon Admitting Unavailable DUNCAN ., DR LLUVIA Sheldon Consulting Unavailable [facility] Primary Care Unavailable DUNCAN ., DR LLUVIA Sheldon Attending Unavailable DUNCAN ., DR LLUVIA Sheldon Consulting Unavailable DUNCAN ., DR LLUVIA Sheldon Admitting Unavailable [facility], [facility] Primary Care Unavailable DUNCAN ., DR LLUVIA Sheldon Attending Unavailable DUNCAN ., DR LLUVIA Sheldon Consulting Unavailable DUNCAN ., DR LLUVIA Sheldon Admitting Unavailable [facility], [facility] Primary Care Unavailable ANDERSEN .RAVINDER Consulting Unavailable DUNCAN ., DR LLUVIA Sheldon Admitting Unavailable DUNCAN ., DR LLUVIA Sheldon Attending Unavailable [facility], [facility] Primary Care Unavailable ANDERSEN .RAVINDER Consulting Unavailable DUNCAN ., DR LLUVIA Sheldon Admitting Unavailable DUNCAN ., DR LLUVIA Sheldon Attending Unavailable [facility], [facility] Primary Care Unavailable LAKSHMIPATHY ., NARENDRANATH Attending Nadira vailable LAKSHMIPATHY ., NARENDRANATH Admitting [facility]ira [facility]ailable [facility] Care Unavailable LAKSHMIPATHY ., NARENDRANATH Attending Nadira vailable LAKSHMIPATHY ., NARENDRANATH Consulting Nadira vailable LAKSHMIPATHY ., NARENDRANATH Admitting Nadira vailable [facility], [facility] Primary Care Unavailable LAKSHMIPATHY ., NARENDRANATH Consulting Nadira vailable LAKSHMIPATHY ., NARENDRANATH Admitting Nadira vailable LAKSHMIPATHY ., MONIQUEATH Attending Nadira vailable SHAIKH Mina JASSO Primary Care Unavailable NATHALY ., RAVINDER Consulting Unavailable CUCO ., DR LLUVIA Sheldon Attending Unavailable CUCO ., DR LLUVIA Sheldon Admitting Unavailable SHAIKH Mina JASSO Primary Care Unavailable LAKSHMIPATHY ., KARTHIK Attending Nadira vailable RINA, DR DOMINGA William Consulting Unavailable LAKSHMIPATHY ., NARENDRANATH Admitting Nadira vailable LAKSHMIPATHY ., MONIQUEATH Consulting Nadira vailable JONATHAN NAGY Attending Unavailable JONATHAN NAGY Attending Unavailable SHAIKH JASSO Attending Unavailable Medications Current Medications Medication Drug Class(es) Dates Sig (Normalized) Sig (Original) acetaminophen 325 mg oral tablet (1 source) Start: 02-12-2021 End: 02-18-2021 take 2 tablets by mouth every six hours acetaminophen 325 mg oral tablet ; 2 tab(s) orally every 6 hours as needed for pain Quantity: 56 Refills: 0 Ordered: 12-Feb-2021 Jim Faith Start: 12-Feb-2021 End: 18-Feb-2021 Generic Substitution Allowed diclofenac sodium 50 mg delayed release oral tablet (1 source) Nonsteroidal Anti-inflammatory Drug take 1 tablet by mouth twice daily diclofenac sodium 50 mg oral delayed release tablet ; 1 tab(s) orally 2 times a day Quantity: 0 Refills: 0 Ordered: 11-Feb-2021 Leo Roberson Generic Substitution Allowed fexofenadine hydrochloride 180 mg oral tablet (1 source) Histamine-1 Receptor Antagonist take 1 tablet by mouth once daily Kristina 24 Hour Allergy oral tablet ; 1 tab(s) orally once a day Quantity: 0 Refills: 0 Ordered: 11-Feb-2021 Jany Ann Generic Substitution Allowed See emr (1 source) See emr Quantity : 0 Refills: 0 Ordered: 12-Dec-2017 Isabel Dejesus Status: Discontinued Generic Substitution Allowed Completed/Discontinued Medications Medication Drug Class(es) Dates Sig (Normalized) Sig (Original) acetaminophen 325 mg / oxyCODONE hydrochloride 5 mg oral tablet (7 sources) Opioid Agonist Start: 12-31-2016 oxyCODONE-Acetamin ophen 5-325 MG Oral Tablet Quantity: 120 Refills: 0 Ordered: 31-Dec-2016 DO Start : 31-Dec-2016 Active take 1 tablet by lizzie th twice daily oxycodone-acetaminophen 5 mg-300 mg oral tablet ; 1 tab(s) orally 2 times a day Quantity: 0 Refills: 0 Ordered: 11-Feb-2021 Jany Ann Generic Substitution Allowed allopurinol 300 mg oral tablet (3 sources) Xanthine Oxidase Inhibitor Start: 01-25-2017 Allopurinol 300 MG Oral Tablet Quantity: 30 Refills: 0 DO Start : 25-Jan-2017 Active amLODIPine 5 mg oral tablet (3 sources) Dihydropyridine Calcium Channel Mook Start: 03-23-2017 amLODIPine Besylate 5 MG Oral Tablet Quantity: 30 Refills: 0 DO Start : 23-Mar-2017 Active atenolol 25 mg oral tablet (3 sources) beta-Adrenergic Mook Start: 01-25-2017 Atenol ol 25 MG Oral Tablet Quantity: 60 Refills: 0 DO Start : 25-Jan-2017 Active atorvastatin 40 mg oral tablet (6 sources) HMG-CoA Reductase Inhibitor Start: 01-25-2017 Atorvastatin Calcium 40 MG Oral Tablet Quantity: 30 Refills: 0 Ordered: 25-Jan-2017 DO Start : 25-Jan-2017 Active Start: 01-25-2017 Atorvastatin C alcium 40 MG Oral Tablet Quantity: 30 Refills: 0 DO Start : 25-Jan-2017 Active 60 actuat budesonide 0.16 mg/actuat / formoterol fumarate 0.0045 mg/actuat metered dose inhaler (3 sources) Corticosteroid, beta2-Adrenergic Agonist Start: 03-23-2017 Symbicort 160-4.5 MCG/ACT Inhalation Aerosol Quantity: 10 Refills: 0 DO Start : 23-Mar-2017 Active clarithromycin 500 mg oral tablet (7 sources) Macrolide Antimicrobial Start: 07-25-2017 take 1 tablet by mouth every twelve hours Clarithromycin 500 MG Oral Tablet TAKE 1 TABLET BY MOUTH EVERY 12 HOURS (hold lipitor for TEN days) Quantity: 14 Refills: 0 Ordered: 25-Jul-2017 DO Start : 25-Jul-2017 Active take 1 tablet by mouth once shlomo y clarithromycin 250 mg oral tablet ; 250 milligram(s) orally once a day Quantity: 0 Refills: 0 Ordered: 11-Feb-2021 Jany Ann Generic Substitution Allowed famotidine 20 mg oral tablet (3 sources) Histamine-2 Receptor Antagonist Start: 01-25-2017 Famotidine 20 MG Oral Tablet Quantity: 30 Refills: 0 DO Start : 25-Jan-2017 Active finasteride 5 mg oral tablet (3 sources) 5-alpha Reductase Inhibitor Start: 12-29-2016 Finasteride 5 MG Oral Tablet Quantity: 30 Refills: 0 DO Start : 29-Dec-2016 Active gabapentin 300 mg oral capsule (3 sources) Anti-epileptic Agent Start: 01-25-2017 Gabapentin 300 MG Oral Capsule Quantity: 30 Refills: 0 DO Start : 25-Jan-2017 Active hydroCHLOROthiazide 25 mg oral tablet (3 sources) Thiazide Diuretic Start: 01-25-2017 hydroCHLOROthiazide 25 MG Oral Tablet Quantity: 30 Refills: 0 DO Start : 25-Jan-2017 Active 200 actuat ipratropium bromide 0.017 mg/actuat metered dose inhaler (3 sources) Anticholinergic Start: 11-28-2017 Atrovent HFA 17 MCG/ACT Inhalation Aerosol Solution Refills: 0 [place] [facility] Start : 28-Nov-2017 Active lisinopril 20 mg oral tablet (3 sources) Angiotensin Converting Enzyme Inhibitor Start: 01-25-2017 Lisinopril 20 MG Oral Tablet Quantity: 30 Refills: 0 DO Start : 25-Jan-2017 Active sertraline 50 mg oral tablet (3 sources) Serotonin Reuptake Inhibitor Start: 01-25-2017 Sertraline HCl - 50 MG Oral Tablet Quantity: 30 Refills: 0 DO Start : 25-Jan-2017 Active Problems Active Problems Problem Classification Problem Date Documented Da te Episodic/Chronic Chronic obstructive pulmonary disease and bronchiectasis (6 sources) Chronic obstructive lung disease; Translations: [Chronic airway obstruction, not elsewhere classified] Chronic Essential hypertension (6 sources) Hypertensive disorder; Translations: [Unspecified essential hypertension] Chronic Osteoarthritis (7 sources) Primary osteoarthritis, left shoulder; Translations: [Primary osteoarthritis, right shoulder] Onset: 04-29-2022 Chronic Other connective tissue disease (1 source) Impingement syndrome of left shoulder; Translations: [IMPINGEMENT SYNDROME LEFT SHOULDER] Onset: 12-29-2022 Episodic Other connective tissue disease (1 source) Impingement syndrome of right shoulder; Translations: [IMPINGEMENT SYNDROME RIGHT SHOULDER] Onset: 12-29-2022 Episodic Other lower respiratory disease (6 sources) Disorder of diaphragm; Translations: [Disorders of diaphragm] Episodic Other nervous system disorders (6 sources) Phrenic nerve disorder; 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 Other nervous system disorders (1 source) Other chronic pain; Translations: [OTHER CHRONIC PAIN] Onset: 11-28-2022 Chronic Other nervous system disorders (5 sources) Chronic pain syndrome; Translations: [CHRONIC PAIN SYNDROME] Onset: 01-29-2022 Chronic Other non-traumatic joint disorders (5 sources) Pain in right shoulder; Translations: [PAIN IN RIGHT SHOULDER] Onset: 11-28-2022 Episodic Other non-traumatic joint disorders (5 sources) Pain in left shoulder; Translations: [PAIN IN LEFT SHOULDER] Onset: 11-25-2022 Episodic Spondylosis; intervertebral disc disorders; other back problems (3 sources) Spondylosis without myelopathy or radiculopathy, cervical region; Translations: [Other cervical disc degeneration, unspecified cervical region] Onset: 05-23-2022 Chronic Sprains and strains (2 sources) Strain of muscle(s) and tendon(s) of the rotator cuff of right shoulder, initial encounter; Translations: [Strain of muscle(s) and tendon(s) of the rotator cuff of left shoulder, initial encounter] Onset: 12-29-2022 Episodic Unclassified (2 sources) DIAPHRAGM PLICATION 01-27-2021 Comment on above: DIAPHRAGM PLICATION Past or Other Problems Problem Classification Problem Date Documented Da te Episodic/Chronic Other connective tissue disease (1 source) Other muscle spasm; Translations: [OTHER MUSCLE SPASM] Onset: 05-23-2022 Episodic Spondylosis; intervertebral disc disorders; other back problems (8 sources) Cervicalgia; Translations: [Muscle spasm of back] Onset: 05-18-2022 Episodic NEGATED: Highlighted row has not occurred!Residual codes; unclassified (14 sources) Disease Episodic Results Test Name Value Interpretation Reference Range Facility MRI SHOULDER LT WO CONon MRI SHOULDER LT WO CON EXAMINATION: MRI SHOULDER LT WO CON HISTORY: Bilateral shoulder joint pain , chronic COMPARISON: No relevant comparison available. TECHNIQUE: A variety of imaging planes and parameters were utilized for visualization of suspected pathology. Imaging was performed without contrast. FINDINGS: ROTATOR CUFF REGION CUFF TENDONS: Mildly increased signal intensity in the supraspinatus tendon indicates tendon degeneration and/or tendinitis. No lynnette tear is seen. CUFF MUSCLES: Normal appearing muscles. DELTOID: No significant atrophy or tear. LONG BICEPS TENDON: No abnormal signal, attrition, or tear. LABRUM/BICEPS ANCHOR SUPERIOR: No visible labral tear or biceps anchor pathology. ANTERIOR/INFERIOR: No visible tear or attrition. POSTERIOR: No posterior labrum abnormality. CAPSULE No visible capsular laxity or thickening. AC JOINT REGION AC JOINT: Severe osteoarthropathy with moderate to severe narrowing of the underlying coracoacromial arch. AC LIGAMENTS: Normal acromioclavicular ligament. CC LIGAMENTS: Normal coracoclavicular ligaments. ACROMION: Mild lateral downsloping. SUBACROMIAL BURSA: Normal. No significant effusion. HYALINE CARTILAGE: No visible cartilage narrowing or focal defect. OTHER BONES: Normal proximal humerus, glenoid, and coracoid. OTHER OBSERVATIONS: Negative. No other significant findings or glenohumeral effusion. IMPRESSION: 1. Marked degenerative changes of acromioclavicular joint impinging upon the supraspinatus muscle/tendon resulting in mild tendinopathy. 2. Mild lateral downsloping of the acromion process. Electronically authenticated by: DOMINGA FLYNN Date: 2022-12-08 10:25 Normal [facility] MRI SHOULDER RT WO CONon MRI SHOULDER RT WO CON EXAMINATION: MRI SHOULDER RT WO CON HISTORY: Bilateral shoulder joint pain COMPARISON: No relevant comparison available. TECHNIQUE: A variety of imaging planes and parameters were utilized for visualization of suspected pathology. Imaging was performed without contrast. FINDINGS: ROTATOR CUFF REGION CUFF TENDONS: Mild increased signal intensity in the supraspinatus tendon indicates tendon degeneration and/or tendinitis. No lynnette tear is seen. CUFF MUSCLES: Normal appearing muscles. DELTOID: No significant atrophy or tear. LONG BICEPS TENDON: No abnormal signal, attrition, or tear. LABRUM/BICEPS ANCHOR SUPERIOR: No visible labral tear or biceps anchor pathology. ANTERIOR/INFERIOR: No visible tear or attrition. POSTERIOR: No posterior labrum abnormality. CAPSULE No visible capsular laxity or thickening. AC JOINT REGION AC JOINT: Moderate osteoarthropathy with moderate to severe narrowing of the underlying coracoacromial arch secondary to a large undersurface osteophyte. AC LIGAMENTS: Normal acromioclavicular ligament. CC LIGAMENTS: Normal coracoclavicular ligaments. ACROMION: Mild lateral downsloping. SUBACROMIAL BURSA: Normal. No significant effusion. HYALINE CARTILAGE: Normal. No visible cartilage narrowing or focal defect. OTHER BONES: Normal proximal humerus, glenoid, and coracoid. OTHER OBSERVATIONS: Negative. No other significant findings or glenohumeral effusion. IMPRESSION: 1. Marked degenerative changes of the acromioclavicular joints and mild lateral downsloping acromion process contributing to mild tendinopathy of the supraspinatus tendon. Electronically authenticated by: DOMINGA FLYNN Date: 2022-12-08 10:35 Normal [facility] XR CSPINE OBL FLEX_EXTon XR CSPINE OBL FLEX_EXT EXAMINATION: XR CSPINE OBL FLEX_EXT HISTORY: Neck pain COMPARISON: No relevant comparison available. FINDINGS: BONES: Neutral projection demonstrates normal alignment with no acute fracture or spondylolisthesis. Moderate spondylosis C4-C5. Anterior fusion C5-C6 DISC SPACES: Severe disc space narrowing C4-C5. Interbody fusion C5-C6 PARASPINOUS: Negative. No paraspinous abnormality is seen. 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 He is increasing his walking. I discussed with him he can start golfing. He will obtain a chest x-ray locally in the next month. He is also welcome to come back for another chest x-ray. We discussed whether or not he wants to follow-up with a construction management assistant in our system. Provider Impressions He is improving after the diaphragm plication after a 2-year attempt with diaphragm pacing. 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 He is increasing his walking. I discussed with him he can start golfing. He will obtain a chest x-ray locally in the next month. He is also welcome to come back for another chest x-ray. We discussed whether or not he wants to follow-up with a construction management assistant in our system. Chief Complaint An interactive audio and video telecommunication system which permits real time communications between the patient (at the originating site) and provider (at the distant site) was utilized to provide this telehealth service. Post op History of Present IllnessHe is status post diaphragm plication. This was done after he had failure for diaphragm pacing. He feels his breathing is better. He is having no pain. He is improving after the diaphragm plication after a 2-year attempt with diaphragm pacing. 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 He is increasing his walking. I discussed with him he can start golfing. He will obtain a chest x-ray locally in the next month. He is also welcome to come back for another chest x-ray. We discussed whether or not he wants to follow-up with a construction management assistant in our system. 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) Surgical History History of Cholecystectomy History of Gallbladder Surgery History of Knee Surgery Left History of Neck Surgery History of Tonsillectomy Family History No pertinent family history Social History Former smoker (V15.82) (Z87.891) No alcohol use Allergies No Known Allergies Recorded By: Susana Bell; 11/28/2017 10:22:51 AM Current Meds Medication NameInstruction Atorvastatin Calcium 40 MG Oral Tablet Clarithromycin 500 MG Oral TabletTAKE 1 TABLET BY MOUTH EVERY 12 HOURS (hold lipitor for TEN days) oxyCODONE-Acetaminophen 5-325 MG Oral Tablet Results/Data Xray Chest 1 [id number] 04:27PMJim Faith Test NameResultFlagReference Xray Chest 1 View(Report) FINAL REPORT Interpreted by: МАРИНА MARCELO MD 02/12/21 16:52 Patient Name: RIGO JEFFERSON STUDY: CHEST 1 VIEW; 02/12/2021 4:27 pm INDICATION: chest tube removal. COMPARISON: Prior 11:07 a.m. radiograph. ACCESSION NUMBER(S): [id number] ORDERING CLINICIAN: JIM FAITH FINDINGS: Left basilar chest tube has been removed. CARDIOMEDIASTINAL SILHOUETTE: Cardiomediastinal silhouette is normal in size and configuration. LUNGS: Small pleural effusions with left more than right basilar consolidation. ABDOMEN: No remarkable upper abdominal findings. BONES: No acute osseous changes. IMPRESSION: 1. Small pleural effusions with left more than right basilar consolidation. 2. No pneumothorax. Electronically signed by: FOZIA 02/12/21 16:52 Signatures Electronically signed by : Daniel Caballero MD; Apr 02 2021 5:38PM EST (Author) Normal [employer] Admission Risk Screen - Adul ton 02-12-2021 Admission Risk Screen - Adult Allergies: Allergies: No Known Allergies: Patient Verification: New W ID Band Applied in my Departmentno Type of ID Patient is WearingW wristband, but not applied here Patient Transferred from Other Facility ([facility], [facility],etc)no Patient Identity Verified Bypatient ID Band FULL Name, include Middle, spelling matches patient's ID used for verificationyes ID Band Matches Patient ID used for Verficationyes ID Band MRN Matches EMR MRNyes Visitor Restriction: Coronavirus Visitor Restriction: Reasonable restrictions to in-person visitors will be observed due to current coronavirus pandemic. Travel History: COVID-19 Screening Completedno exposure or symptoms Travel or Exposure Past 30 DaysNO travel to International locations in the past 30 days Ebola AlertFor Ebola-like Symptoms: Isolate Patient and Notify Provider/Test Grader For Contact: Notify Provider/Test Grader Advance Directive: Advance Directive/DNRno (1) Advance Directive Information Givenpatient/family declined [place] Fall Screen: History of falling (immediate or previous)no (0) Secondary Diagnosisyes (15) Intravenous Therapy/ Heparin/Saline Lockyes (20) Gait/Transferringnormal/be drest/wheelchair (0) Ambulatory Aidsnone/bedrest/nurse assist (0) Mental Statusoriented to own ability (0) Score: Low risk (<25). Moderate risk (25-44). High risk (>44).35 [place] InterventionsMODERATE INTERVENTIONS: *Low Interventions Plus: * falls risk band/sticker applied to patient, *yellow non-skid footwear, *instruct to call for assistance before getting out of bed, *bed/chair/bedside commode/toilet alarms, *sensory devices/ambulatory aides available and in reach, *medications reviewed for potential side effects and care planning. Family Violence Screen: Are you or have you been threatened or abused physically, emotionally, or sexually by anyoneno Do you feel UNSAFE going back to the place where you are livingno Clinical assessment: Are there any apparent signs of injuries/behaviors that could be related to abuse/neglectno Social Service Consult for abuse/neglect needed this visitno Functional Screen: Functional Screen: In the recent/past 2-4 weeks, patient or family have noticedno issues that require a speech/language consult at this time AM-PAC- Basic Mobility/Daily Activity: Patient baseline bedboundno Turning from your back to your side while in a flat bed without using bedrailsa little Moving from lying on your back to sitting on the side of a flat bed without using bedrailsa little Moving to and from bed to chair (including a wheelchair)a little Standing up from a chair using your arms (e.g. wheelchair or bedside chair)a little To walk in hospital rooma little Climbing 3-5 steps with railinga little Basic Mobility - Total Score18 Putting on and taking off regular lower body clothinga little Bathing (including washing, rinsing, drying)none Putting on and taking off regular upper body clothingnone Toileting, which includes using toilet, bedpan or urinala little Taking care of personal grooming such as brushing teetha little Eating Mealsnone Daily Activity - Total Score21 Learning Assessment (Patient): Patient is Able to be Assessed for Learningyes Factors Influencing Readiness to Learnacuteness of illness Factors that Impact Ability to Learnacuteness of illness Devices/Methods Used to Communicatenone Learning Preferencesverbal instruction Cultural Considerationsnone Developmental Considerationsnone Temple Considerationsnone Learning Assessment (Other Learner): Other learner availableno Depression Screen: During the past month, have you often been bothered by feeling down, depressed or hopelessno (1) During the past month, have you often had little interest or pleasure in doing thingsno (1) Have you had any thoughts of harming anyone elseno (1) Rice Suicide: Risk Screen Not Applicable/Able to Answerable to be screened In the Past Month: Have you wished you were or could go to sleep and not wake upno(1) In the Past Month: Have you had any actual thoughts of killing yourself no(1) Lifetime: Have you ever done, started to do, or prepared to do anything to end your lifeno(1) Rice Suicide Risknegative Adult Nutrition Screen: Have you recently lost weight without tryingno Have you been eating poorly because of a decreased appetiteno Malnutrition Screening Tool Score0 Malnutrition Screening Tool RiskMST = 0 or 1 Not at risk. Eating well with little or no weight loss Nutrition Consult needed this visitno Can Patient Participate in Room Serviceyes Patient requires Paper Dishes/Plastic Utensilsno Pain Screen: Pain Scalenumerical 0-10 (1) Pain Scale Educationteaching provided (1) Current Pain Level9 = Severe Acceptable Pain Level2 = Mild Expression of Pain (nonverbal)verbalization (more content not included)... Normal [facility] BASIC METABOLIC PANELon 02-03 Anion gap [Moles/Vol] 15 mmol/L Normal 10 - 20 [facility] Comment on above: Performed By: #### B MP #### [facility] [address] [place] [address] Calcium [Mass/Vol] 9.5 mg/dL Normal 8.6 - 10.6 [facility] Comment on above: Performed By: #### B MP #### [facility] [address] [place] [address] Chloride [Moles/Vol] 102 mmol/L Normal 98 - 107 [facility] Comment on above: Performed By: #### B MP #### [facility] [address] [place] [address] Creatinine [Mass/Vol] 0.98 mg/dL Normal 0.50 - 1.30 [facility] Comment on above: Performed By: #### B MP #### [facility] [address] [place] [address] GFR- AM. >60 Normal >60 [facility] Comment on above: Result Comment: CALC ULATIONS OF ESTIMATED GFR ARE PERFORMED USING THE MDRD STUDY EQUATION FOR THE IDMS-TRACEABLE CREATININE METHODS. CLIN CHEM 2007;53:766-72 Performed By: #### B MP #### [facility] [address] [place] [address] GFR-NON AM. >60 Normal >60 [facility] Comment on above: Performed By: #### B MP #### [facility] [facility] [address] [place] [address] Glucose [Mass/Vol] 133 mg/dL High 74 - 99 [facility] Comment on above: Performed By: #### B MP #### [facility] [address] [place] [address] HCO3 (Bld) [Moles/Vol] 24 mmol/L Normal 21 - 32 [facility] Comment on above: Performed By: #### B MP #### [facility] [address] [place] [address] Potassium [Moles/Vol] 4.3 mmol/L Normal 3.5 - 5.3 [facility] Comment on above: Performed By: #### B MP #### [facility] [address] [place] [address] Sodium [Moles/Vol] 137 mmol/L Normal 136 - 145 [facility] Comment on above: Performed By: #### B MP #### [facility] [address] [place] [address] Urea nitrogen [Mass/Vol] 17 mg/dL Normal 6 - 23 [facility] Comment on above: Performed By: #### B MP #### [facility] [address] [place] [address] CBCon 02-12-2021 Erythrocyte distribution width (RBC) [Ratio] 12.1 % Normal 11.5 - 14.5 [facility] Comment on above: Performed By: #### C BC #### [facility] [address] [place] [address] Hematocrit (Bld) [Volume fraction] 45.8 % Normal 41.0 - 52.0 [facility] Comment on above: Performed By: #### C BC #### [facility] [address] [place] [address] Hemoglobin (Bld) [Mass/Vol] 15.0 g/dL Normal 13.5 - 17.5 [facility] Comment on above: Performed By: #### C BC #### [facility] [address] [place] [address] MCHC (RBC) [Mass/Vol] 32.8 g/dL Normal 32.0 - 36.0 [facility] Comment on above: Performed By: #### C BC #### [facility] [address] [place] [address] MCV (RBC) [Entitic vol] 94 fL Normal 80 - 100 [facility] Comment on above: Performed By: #### C BC #### [facility] [address] [place] [address] NUCLEATED RBC 0.0 /100 WBC Normal 0.0-0.0 [facility] Comment on above: Performed By: #### C BC #### [facility] [address] [place] [address] Platelets (Bld) [#/Vol] 228 10*3/uL Normal 150 - 450 [facility] Comment on above: Performed By: #### C BC #### [facility] [address] [place] [address] RBC 4.85 x10E12/L Normal 4.50 - 5.90 [facility] Comment on above: Performed By: #### C BC #### [facility] [address] [place] [address] WBC (Bld) [#/Vol] 12.8 10*3/uL High 4.4 - 11.3 [facility] Comment on above: Performed By: #### C BC #### [facility] [address] [place] [address] Clinical Event Note-POCon Clinical Event Note-POC Clinical Event: Clinical Event Note: TopicPOC Details This is a 60 yo M POD 0 s/p 1. laparoscopic L diaphragm plication 2. removal of bilateral diaphragm pacing wires 3. L pigtail chest tube placement Patient is doing well post op. Denies nausea or vomiting. Pain appropriately controlled. No respiratory distress. Tolerating PO. General: lying comfortably in bed, NAD Pulm: symmetric chest expansion, no increased work of breathing CV: RR GI: Abdomen soft, non-tender, non-distended. Incisions c/d/i, no surrounding erythema, bleeding, or drainage Extremities: MAEx4, SCDs in place Skin: warm, dry, well-perfused Assessment/Plan This is a 60 yo M POD 0 s/p laparoscopic L diaphragm plication; removal of bilateral diaphragm pacing wires; L pigtail chest tube placement. Patient is progressing well post-op. - Rest of care per primary team Nataliia Ferris MD [place] resident overnight Electronic Signatures: Nataliia Ferris ( (Resident)) (Signed 12-Feb-2021 00:41) Authored: Clinical Event Note Last Updated: 12-Feb-2021 00:41 by Nataliia Ferris ( (Resident)) Normal [facility] Daily Progress Note-Surgeryo n 02-12-2021 Daily Progress Note-Surgery Service: Surgery Subjective Data: RIGO JEFFERSON is a 60 year old Male who is Hospital Day # 2 and POD #1 for 1. laparoscopic L diaphragm plication;2. removal of bilateral diaphragm pacing wires;3. L pigtail chest tube placement. Additional Information: Patient seen and examined at bedside. No acute events overnight. Saturating well on nasal canula, weaning as tolerated. No acute concerns at this time. Tolerating diet. Patient denies BM yet. Objective Data: Objective Information: T PRBPSpO2 [id number]/8695% Date/Time02/12 6:4902/12 6:4902/12 6:4902/12 6:4902/12 6:49 Range(35.4C - 36.4C ) (77 - 99 ) (17 - 18 ) (127 - 147 )/ (86 - 91 ) (95% - 96% ) Pain reported at 02/12 2:54: 6 = Moderate ---- Intake and Output ----- Mn/Dy/Year TimeIntakeOutputNet Feb 12, 2021 6:00 [id number] Feb 11, 2021 10:00 [id number] The Intake and Output Totals for the last 24 hours are: IntakeOutputNet [id number] Physical Exam by System: Constitutional: Well developed, awake/alert/oriented x3, no distress, alert and cooperative Eyes: PERRL, EOMI, clear sclera ENMT: MMM Head/Neck: NCAT Respiratory/Thorax: good chest expansion, thorax symmetric Cardiovascular: RRR Gastrointestinal: Nondistended, soft, non-tender, no rebound tenderness or guarding Musculoskeletal: moves all extremities Extremities: well perfused Neurological: grossly intact Psychological: Appropriate mood and behavior Skin: warm and dry Medication: Medications: ANTI-INFECTIVES: 1. Clarithromycin: 250 mg Oral Every 24 Hours CENTRAL NERVOUS SYSTEM AGENTS: 1. Acetaminophen: 650 mg Oral Every 6 Hours 2. HYDROmorphone Injectable: 0.4 mg IntraVenous Push Every 4 Hours PRN 3. oxyCODONE Immediate Release: 5 mg Oral Every 4 Hours PRN 4. Ondansetron Injectable: 4 mg IntraVenous Push Every 4 Hours PRN 5. Methocarbamol: 500 mg Oral 4 Times a Day COAGULATION MODIFIERS: 1. Enoxaparin SubCutaneous: 40 mg SubCutaneous Every 24 Hours GASTROINTESTINAL AGENTS: 1. Docusate: 100 mg Oral 2 Times a Day NUTRITIONAL PRODUCTS: 1. Lactated Ringers Infusion: 1000 mL IntraVenous RESPIRATORY AGENTS: 1. Loratadine: 10 mg Oral Daily TOPICAL AGENTS: 1. Lidocaine 5% TransDermal: 1 patch TransDermal Every 24 Hours Recent Lab Results: Results: I have reviewed these laboratory results: Complete Blood Count 12-Feb-2021 07:24:00 ResultValue White Blood Cell Count 12.8 H Nucleated Erythrocyte Count 0.0 Red Blood Cell Count 4.85 HGB 15.0 HCT 45.8 MCV 94 MCHC 32.8 PLT 228 RDW-CV 12.1 Basic Metabolic Panel 12-Feb-2021 07:24:00 ResultValue Glucose, Serum 133 H NA 137 K 4.3 CL 102 Bicarbonate, Serum 24 Anion Gap, Serum 15 BUN 17 CREAT 0.98 GFR-Non >60 GFR- >60 Calcium, Serum 9.5 Assessment and Plan: Code Status: Code StatusFull Code Assessment: Rigo JEFFERSON is a 60yo male POD#1 s/p diaphragmatic pacer removal, L hemidiaphragm plication and pigtail chest tube placement. - tolerating CLD, advance to regular diet - antiemetics PRN - pain control appropriate - chest tube with 150cc out, CXR this AM no acute changes, will transition from air to water seal - repeat CXR at noon - wean O2 as tolerated, encourage incentive spirometry - resume home medications Dispo: patient likely discharge today pending no interval changes on PM repeat CXR and tolerating diet Will discuss with senior resident and attending. Jim Faith DO PGY1 Signature/Cosignature/Atte station: Note Completion: I am a: Resident/Fellow Attending AttestationI reviewed the resident/fellows documentation and discussed the patient with the resident/fellow. I agree with the resident/fellows medical decision making as documented in the note. Electronic Signatures: Jim Faith ( (Resident)) (Signed 12-Feb-2021 10:38) Authored: Service, Subjective Data, Objective Data, Assessment and Plan, Note Completion Daneil Caballero) (Signed 13-Feb-2021 10:13) Authored: Note Completion Co-Signer: Service, Subjective Data, Objective Data, Assessment and Plan, Note Completion Last Updated: 13-Feb-2021 10:13 by Daniel Caballero) [facility] Discharge Planning [id number] 02-12-2021 Discharge Planning Note2 Discharge Planning: Needs Prior to Discharge (ex. Home Care Orders, IV/O2 prescriptions) Follow up appointments Discharge Barriers (ex. Avoidable days, wait guardianship, pt refuse leave) None Planned Dispositionhome Discharge DestinationHome [facility] [place] Choice Explainedyes preference Anticipated Discharge [id number] Discharge Planning 02/12/2021 0135 Discharge Plan Patient transferred from [place] [address] from PACU for diaphragm plication. Pt is A&O times 4. at 3 liters oxygen. Pt denies any medical management trainer use at home. Pt emergency personal care aide Sahil Joe- son. Pt have valuable belongings at bedside- see chart. No discharge plan a this time. SHAMIR ZunigaN RN. 02/12/21 1317 Transitional Care Coordination Progress Note: Patient discussed during interdisciplinary rounds. Team members present: MD GEOVANNY Plan per Medical/Surgical team: Pt POD #1 for 1. laparoscopic L diaphragm plication;2. removal of bilateral diaphragm pacing wires;3. L pigtail chest tube placement. Plan for repeat chest xray today and wean O2 as tolerated, anticipate no home going needs when medically ready. Payer: Nabil Santana Status: Inpatient Discharge disposition: Home Potential Barriers: none ADOD: 02/12. [employer] field coordinator will continue to follow for discharge planning needs. Franny Gilliam RN, Transitional Social Welfare Research Worker/TCC, pager [phone] Discharge note: 02/12/21 @ 1735: PT discharged home at this time. pts peripheral IV taken out prior to DC. pt given DC instructions. pt verbalized understanding. pt refused transport and walked downstairs with his son.---Erika stock RN Assessment: Discharge Planning Assessment [id number] Primary Contact Name and NumberAdam [phone](1) Stated Reason for Admissiondiaphragm plication(2) Arrived FromOR (2) Lives Withparent(s)(2) Living Arrangementshouse(2) Resource/Environmental Concernsnone(2) [facility] Services Anticipated at Transitionnone(2) Discharge Documentation: Discharge/Transfer Date/[id number] 17:35 Discharge Modeambulatory Discharged Accompanied Byfamily member Transportation Methodprivate car Valuables/Medications/Belo ngings Returnedyes Final DispositionHome Electronic Signatures: Franny Gilliam (CLIN COOR) (Signed 12-Feb-2021 13:19) Authored: Discharge Planning Erika Stock (RN) (Signed 12-Feb-2021 17:40) Authored: Discharge Planning, Discharge Documentation Mary Beth Holcomb (RN) (Signed 12-Feb-2021 01:41) Authored: Discharge Planning, Assessment Last Updated: 12-Feb-2021 17:40 by Erika Stock (RN) References: 1. Data Referenced From Patient Profile - Preop v2 11-Feb-2021 12:02 2. Data Referenced From Patient Profile - Adult v2 12-Feb-2021 01:31 Normal [facility] Discharge [id number] 021 Discharge Profile2 Discharge Orders: Anticipated Discharge Date: Anticipated Discharge [id number] DNAR: DNAR Status: none Call Provider If (Homegoing Patients): Breathing harder than normal or having retractions. Temperature is greater than 102 degrees. Chills. Drinking less than normal. Urinating less than normal, over 1 day. Acting very sleepy and difficult to awaken. Vomiting (throwing up) and not able to eat or drink for 12 hours. Any new concerning symptoms. Provider FINAL REVIEW of Orders: Final Review: Final Review of Medication Reconciliation and Orders Completedby Physician Reviewing ProviderJim Faith DO (Resident) at 12-Feb-2021 14:39:47 Appointments: Follow-Up Appointment 01: Physician/Dept/ServiceYoirving PCP Reason for Referralhospital follow-up Call to Schedule in1 week Follow-Up Appointment 02: Physician/Dept/ServiceDr. Caballero - surgery Reason for Referralhospital follow-up / diaphragm pacer removal, hemidiaphragm plication Call to Schedule in2 weeks [id number] Hilario Crawford [address] Phone [phone] Other Clinician Instructions: Other Instructions: Other Clinician InstructionsPlease take your medications as directed. Please follow-up with Dr. Caballero and with your PCP as directed. You may remove dressings and shower Tuesday. No heavy lifting >20lbs or strenours activity for 3 weeks. If your symptoms return or worsen, please seek medical attention. Thank you for allowing us to participate in your care. Electronic Signatures: Jim Faith ( (Resident)) (Signed 12-Feb-2021 15:27) Authored: Discharge Orders, Provider FINAL REVIEW of Orders, Appointments, Other Clinician Instructions, Gold Form - Vacuum Drier Operator Summary Last Updated: 12-Feb-2021 15:27 by Jim Fiath ( (Resident)) Normal [facility] Laboratory - Chemistry and C hemistry - challengeon 02-12-2021 Anion gap [Moles/Vol] 15 mmol/L 10 - 20 BB-Ojtmzba-[address] Work Phone: Calcium [Mass/Vol] 9.5 mg/dL 8.6 - 10.6 MG-Tino raysa-[address] Work Phone: Chloride [Moles/Vol] 102 mmol/L 98 - 107 SO-Bxorydt-[address] Work Phone: CO2 [Moles/Vol] 24 mmol/L 21 - 32 MG-Surger y-G reen [facility] Work Phone: Creatinine [Mass/Vol] 0.98 mg/dL See Below NU-Ahcxjdy-[address] Work Phone: Comment on above: Reference Range: 0.5 0 - 1.30 Glucose [Mass/Vol] 133 mg/dL above high threshold 74 - 99 DG[facility] Work Phone: Potassium [Moles/Vol] 4.3 mmol/L 3.5 - 5.3 KG-Legxbol-[facility] [address] Work Phone: Sodium [Moles/Vol] 137 mmol/L 136 - 145 MG-Tino raysa-[facility] Work Phone: Urea nitrogen [Mass/Vol] 17 mg/dL 6 - 23 AV-Nokcped-[facility] [address] Work Phone: Laboratory - Hematology and Cell countson 02-12-2021 Erythrocyte distribution width (RBC) [Ratio] 12.1 % See Below QV-Axfsgyy-Y [facility] [address] Work Phone: Comment on above: Reference Range: 11. 5 - 14.5 Hematocrit (Bld) [Volume fraction] 45.8 % See Below WF-Xxspjjd-[address] Work Phone: Comment on above: Reference Range: 41. 0 - 52.0 Hemoglobin (Bld) [Mass/Vol] 15.0 g/dL See Below HE-Nhrrckg-F [address] Work Phone: Comment on above: Reference Range: 13. 5 - 17.5 MCHC (RBC) [Mass/Vol] 32.8 g/dL See Below EX-Kmbxrzh-J [address] Work Phone: Comment on above: Reference Range: 32. 0 - 36.0 MCV (RBC) [Entitic vol] 94 fL 80 - 100 DZ-Autohwf-[address] Work Phone: Platelets (Bld) [#/Vol] 228 10*3/uL 150 - 450 ZG-Ajudnrf-[address] Work Phone: RBC (Bld) [#/Vol] 4.85 {x10E12/L} See Below MG -Surgery-[facility] [address] Work Phone: Comment on above: Reference Range: 4.5 0 - 5.90 WBC (Bld) [#/Vol] 12.8 10*3/uL above high threshold 4.4 - 11.3 YJ-Dptcxop-J [facility] [address] Work Phone: No Panel Informationon 02-12 >60 >60 QI-Pvbezvx-A [place] [address] Work Phone: Comment on above: CALCULATIONS OF LANRE MATED GFR ARE PERFORMED USING THE MDRD STUDY EQUATION FOR THE IDMS-TRACEABLE CREATININE METHODS. CLIN CHEM 2007;53:766-72 0.0 {/100_WBC} 0.0-0.0 MG-Surgery -G [place] [address] Work Phone: Order Reconciliationon 02-12 Order Reconciliation Page 1 Discharge Reconciliation Document Reconciliation Type: Discharge requested on behalf of Jim Faith (Resident) done by Jmi Faith (DO (Resident)) Discharge - Reconciliation: 12-Feb-2021 14:44 by: Jim Faith (DO (Resident)) Home Medications EnteredHOME MEDICATIONS AT DISCHARGE DateReconciliation Comment/ Additional Information Kristina 24 Hour Allergy oral tablet 1 tab(s) orally once a day 11-Feb-2021 12:21 Kristina 24 Hour Allergy oral tablet 1 tab(s) orally once a day 11-Feb-2021 12:21 Kristina 24 Hour Allergy oral tablet is continued as Kristina 24 Hour Allergy oral tablet clarithromycin 250 mg oral tablet 250 milligram(s) orally once a day 11-Feb-2021 12:12 clarithromycin 250 mg oral tablet 250 milligram(s) orally once a day 11-Feb-2021 12:12 clarithromycin 250 mg oral tablet is continued as clarithromycin 250 mg oral tablet diclofenac sodium 50 mg oral delayed release tablet 1 tab(s) orally 2 times a day 11-Feb-2021 12:17 diclofenac sodium 50 mg oral delayed release tablet 1 tab(s) orally 2 times a day 11-Feb-2021 12:17 diclofenac sodium 50 mg oral delayed release tablet is continued as diclofenac sodium 50 mg oral delayed release tablet oxycodone-acetaminophen 5 mg-300 mg oral tablet 1 tab(s) orally 2 times a day 11-Feb-2021 12:14 oxycodone-acetaminophen 5 mg-300 mg oral tablet 1 tab(s) orally 2 times a day 11-Feb-2021 12:14 oxycodone-acetaminophen 5 mg-300 mg oral tablet is continued as oxycodone-acetaminophen 5 mg-300 mg oral tablet Current OrdersDateHOME MEDICATIONS AT DISCHARGE DateReconciliation Comment/ Additional Information Acetaminophen Tablet (TYLENOL)DOSE = 650 mg Oral Every 6 Hours 11-Feb-2021 18:26 acetaminophen 325 mg oral tablet 2 tab(s) orally every 6 hours as needed for pain 12-Feb-2021 14:43 Prescription is created for acetaminophen 325 mg oral tablet Clarithromycin Tablet (BIAXIN)DOSE = 250 mg Oral Every 24 Hours 11-Feb-2021 18:31 Clarithromycin is not required Docusate Capsule (COLACE)DOSE = 100 mg Oral 2 Times a Day 11-Feb-2021 18:26 Docusate is not required Enoxaparin SubCutaneous (LOVENOX)DOSE = 40 mg SubCutaneous Every 24 Hours 11-Feb-2021 18:26 Enoxaparin SubCutaneous is not required HYDROmorphone Injectable (DILAUDID)DOSE = 0.4 mg IntraVenous Push Every 4 Hours, PRN Pain - Severe (7-10) 11-Feb-2021 18:26 HYDROmorphone Injectable is not required Lactated Ringers Infusion IV Bag Volume = 1,000 mL Run at: 50 mL/hr IntraVenous 11-Feb-2021 18:26 Lactated Ringers Infusion is not required Lidocaine 5% TransDermal Film (LIDODERM)DOSE = 1 patch TransDermal Every 24 Hours, Apply to ChestClinician Notes: apply to L chest 11-Feb-2021 18:26 Lidocaine 5% TransDermal is not required Loratadine Tablet (CLARITIN, ALAVERT)DOSE = 10 mg Oral DailyNotes from Pharmacy: Substitution For Cetirizine (Zyrtec) 5 mg Oral Daily 12-Feb-2021 08:31 Loratadine is not required Methocarbamol Tablet (ROBAXIN)DOSE = 500 mg Oral 4 Times a Day 11-Feb-2021 18:26 Methocarbamol is not required Ondansetron Injectable (ZOFRAN)DOSE = 4 mg IntraVenous Push Every 4 Hours, PRN Nausea & Vomiting 11-Feb-2021 18:26 Ondansetron Injectable is not required oxyCODONE Immediate Release Tablet (OXYIR, ROXICODONE)DOSE = 5 mg Oral Every 4 Hours, PRN Pain - Mod (4-6) 11-Feb-2021 18:26 oxyCODONE Immediate Release is not required All Active Home Medications at time of Discharge Reconciliation: 12-Feb-2021 14:44 acetaminophen 325 mg oral tablet 2 tab(s) orally every 6 hours as needed for pain Kristina 24 Hour Allergy oral tablet 1 tab(s) orally once a day clarithromycin 250 mg oral tablet 250 milligram(s) orally once a day diclofenac sodium 50 mg oral delayed release tablet 1 tab(s) orally 2 times a day oxycodone-acetaminophen 5 mg-300 mg oral tablet 1 tab(s) orally 2 times a day Normal [facility] Patient Profile - Adult v2on 02-12-2021 Patient Profile - Adult v2 Profile: Initial Info: How to be AddressedDel(1) Spoken Language PreferredEnglish (1) Stated Reason for Admissiondiaphragm plication Patient Belongingsremains with patient Patient Belongings Remaining with Patientcash/credit card; clothing Arrived FromOR Medications Brought to Hospitalno Are you currently using the Personal Electronic Health Record or CarWaleno (1) Wants Family/Rep Notified of Admissionyes, primary contact Notify PCPnotify PCP Informed of Patient Visiting Rightsyes General Health: Blood Avoidance/Restrictionsnone (1) Previous Transfusion Reactionno(2) Weight in kg109.8 kilogram(s)(3) Weight in vha875 pound(s) Weight Methodactual (measured) (3) Scale Typestanding (3) Height in cm182.8 centimeter(s) Height in feet6 feet(3) Height in inches0 inch(es)(3) Height Methodstated (3) BMI (kg/m2)32.858 square meter RSP Based Care: How would you like to participate in your carecommunicate with staff What is the number one concern for you during this hospitalizationnone What is the most important thing we can do to support you during this hospitalizationnone Is there anything we need to know to best care for younone Substance: Current or Former Substance Use never: Cigarette/Tobacco(1), e-Cigarette/Vaping(1), Alcohol(1), Street Drugs(1) Health Mgmt: Symptoms/Conditions Managed at [facility] Relationship/Environ: Resource/Environmental Concernsnone Primary Source of Support/Comfortchild(rogerio) Lives Withparent(s) Living Arrangementshouse Services Anticipated at Transitionnone Anticipated Transition Tohome Significant IndicatorsComplete Information Review: Allergies, Home Meds and Significant Events have been Reviewed and Verified with Patient/Familyyes ALLERGY, INTOLERANCE, ADVERSE EVENT: Allergies: No Known Allergies: Active Significant Events: 11-Feb-2021 Surgical Procedure: Clinical Events This Visit, Active, 1. laparoscopic L diaphragm plication;2. removal of bilateral diaphragm pacing wires;3. L pigtail chest tube placement, 11-Feb-2021 lap pedro, tonsilectomy: Past Surgical History, Active 12-Dec-2017 GERD, HTN, HLD: Past Medical History, Active 12-Dec-2017 COPD, uses cpap @ home, chronic back/neck pain: Past Medical History, Active Problem List: Additional Dx: Gout: Onset Date: 13-Dec-2017, Catalog Name: Gout, unspecified BPH (benign prostatic hyperplasia): Onset Date: 13-Dec-2017, Catalog Name: Benign prostatic hyperplasia without lower urinary tract symptoms HTN (hypertension): Onset Date: 13-Dec-2017, Catalog Name: Essential (primary) hypertension Hemidiaphragm paralysis: Catalog Name: Disorders of diaphragm Medical History: Hypertension: Onset Date: 27-Jan-2021, Catalog Name: Essential (primary) hypertension Diaphragm paralysis: Onset Date: 13-Dec-2017, Catalog Name: Disorders of diaphragm Electronic Signatures: Mary Beth Holcomb (ASIA) (Signed 12-Feb-2021 01:34) Authored: Initial Info, General Health, RSP Based Care, Substance, Health Mgmt, Relationship/Environ, Additional Information Last Updated: 12-Feb-2021 01:34 by Mary Beth Holcomb (ASIA) References: 1. Data Referenced From Patient Profile - Preop v2 11-Feb-2021 12:02 2. Data Referenced From Patient Profile - Adult v2 12-Dec-2017 16:00 3. Data Referenced From 1. Vital Signs 11-Feb-2021 12:02 Normal [facility] Radiologyon 02-12-2021 XR Chest Single view Normal IY-Aakezvg-[address] Work Phone: XR Chest Single view Normal QW-Ezptawb-[address] Work Phone: XR Chest Single view Normal GV-Umofmip-[address] Work Phone: TH CHEST 1 VIEWon 02-12-2021 TH CHEST 1 VIEW Patient Name: RIGO JEFFERSON STUDY: CHEST 1 VIEW; 02/12/2021 4:27 pm INDICATION: chest tube removal. COMPARISON: Prior 11:07 a.m. radiograph. ACCESSION NUMBER(S): [id number] ORDERING CLINICIAN: JIM FAITH FINDINGS: Left basilar chest tube has been removed. CARDIOMEDIASTINAL SILHOUETTE: Cardiomediastinal silhouette is normal in size and configuration. LUNGS: Small pleural effusions with left more than right basilar consolidation. ABDOMEN: No remarkable upper abdominal findings. BONES: No acute osseous changes. IMPRESSION: 1. Small pleural effusions with left more than right basilar consolidation. 2. No pneumothorax. Electronically signed by: МАРИНА MARCELO MD Normal [facility] TH CHEST 1 VIEW Patient Name: RIGO JEFFERSON STUDY: CHEST 1 VIEW; 02/12/2021 11:58 am INDICATION: chest tube wet seal. COMPARISON: 7:02 a.m. radiograph. ACCESSION NUMBER(S): [id number] ORDERING CLINICIAN: JIM FAITH FINDINGS: Left basilar pigtail chest tube is stable. CARDIOMEDIASTINAL SILHOUETTE: Cardiomediastinal silhouette is normal in size and configuration. LUNGS: No pneumothorax is identified. There is mild bibasilar atelectasis/consolidation and small bilateral pleural effusions. Mild interstitial edema. ABDOMEN: No remarkable upper abdominal findings. BONES: No acute osseous changes. IMPRESSION: 1. No pneumothorax is identified. 2. Mild bibasilar atelectasis/consolidation and small bilateral pleural effusions. Mild interstitial edema. Electronically signed by: МАРИНА MARCELO MD Normal [facility] CHEST 1 VIEW Patient Name: RIGO JEFFERSON STUDY: CHEST 1 VIEW; 02/12/2021 7:13 am INDICATION: POD 1 s/p diaphragm plication. COMPARISON: 02/11/2021. ACCESSION NUMBER(S): [id number] ORDERING CLINICIAN: JANE YO FINDINGS: Left basilar pigtail chest tube is stable. CARDIOMEDIASTINAL SILHOUETTE: Cardiomediastinal silhouette is normal in size and configuration. LUNGS: No pneumothorax is identified. There is mild bibasilar atelectasis/consolidation and small left pleural effusion. Mild interstitial edema. ABDOMEN: No remarkable upper abdominal findings. BONES: No acute osseous changes. IMPRESSION: 1. Mild interstitial edema. No pneumothorax. 2. Mild bibasilar atelectasis/consolidation and small left pleural effusion. Electronically signed by: МАРИНА MARCELO MD Normal [facility] No Panel Informationon 02-11 [place] [address] Work Phone: Operative Reports - [facility] [place] [address] Patient Name: RIGO JEFFERSON : 1960 Date of Service: 02/11/2021 Patient Location: [place] [address] Patient Type: I Surgeon: Daniel Caballero MD Report Type: Operative Reports PREOPERATIVE DIAGNOSIS: Chronic respiratory failure, left diaphragm dysfunction. POSTOPERATIVE DIAGNOSIS: Chronic respiratory failure, left diaphragm dysfunction. OPERATION/PROCEDURE: Laparoscopic left diaphragm plication with removal of previous diaphragm pacing wires. SURGEON: Daniel Caballero MD CIVIL ENGINEERING INTERN(S): Jane Yo MD. There was no available resident. ANESTHESIA: LOCATION: [facility] CLINICAL NOTE: This is a patient with idiopathic left diaphragm dysfunction. He had this for a while before he got diaphragm pacing, he got no recovery of the diaphragm from diaphragm pacing. The patient understands risks and benefits of plication and consents. OPERATIVE NOTE: The patient was brought to the operating room. General endotracheal anesthesia was performed. The patient's abdomen was prepped and draped in usual fashion. Using a left upper quadrant Breanne technique, I entered and insufflated the abdomen. I then placed two 5 mm trocars in the epigastric and a 10 mm trocar in his left lateral. I then took out his previous diaphragm pacing wires without any difficulty. I then began spiking his left diaphragm, there was extremely elevated left diaphragm. I was able to bring it down with multiple rows of interrupted 0 nonabsorbable sutures. I got a very nice plication with this doing this. I then placed a small 5 mm trocar in his left chest. I confirmed there was no bleeding in the left chest cavity. I again identified a very good plication with imbrication of the muscle fibers in the left diaphragm. I then put a pigtail catheter in the left chest. I then removed my trocars. Chest x-ray confirmed good position of the catheter. Diaphragm nicely down. I closed the fascial defect from my Breanne with 0 Vicryl and skin incisions with 4-0 Vicryl. Daniel Caballero MD EST TT: 02/12/2021 12:44 PM EST DICTATION NUMBER: [id number] BRIE JOB NUMBER: [id number] CC: PT STATES NONE PCP Electronic Signatures: Daniel Caballero) (Signed on 13-Feb-2021 10:15) Authored Unsigned, Draft (SYS GENERATED) (Entered on 12-Feb-2021 12:44) Entered Last Updated: 13-Feb-2021 10:15 by Daniel Caballero) Normal [facility] Order Reconciliationon 02-11 Order Reconciliation Page 1 Admission Reconciliation Document Reconciliation Type: Admission from OR requested on behalf of Jane Yo (Physician) done by Jane Yo) Admission from OR - Reconciliation: 11-Feb-2021 18:31 by: Jane Yo) Home MedicationsEnteredLast Dose TakenReconciled with current Order Reconciliation Comment/ Additional Information Kristina 24 Hour Allergy oral tablet 1 tab(s) orally once a [id number]-Feb-2021 AM Reviewed and Held clarithromycin 250 mg oral tablet 250 milligram(s) orally once a day [id number] Clarithromycin Tablet (BIAXIN)DOSE = 250 mg Oral Every 24 Hoursclarithromycin 250 mg oral tablet continued as the inpatient order Clarithromycin diclofenac sodium 50 mg oral delayed release tablet 1 tab(s) orally 2 times a [id number] AM Reviewed and Held oxycodone-acetaminophen 5 mg-300 mg oral tablet 1 tab(s) orally 2 times a day [id number] AM Reviewed and Held Additional Current Orders Acetaminophen Tablet (TYLENOL)DOSE = 650 mg Oral Every 6 Hours Docusate Capsule (COLACE)DOSE = 100 mg Oral 2 Times a Day Enoxaparin SubCutaneous (LOVENOX)DOSE = 40 mg SubCutaneous Every 24 Hours HYDROmorphone Injectable (DILAUDID)DOSE = 0.2 mg IntraVenous Push Every 5 Minutes, PRN Pain - Mod (4-6) (PACU) if unable to take oralClinician Notes: Carlota-operative order ONLYMax total of 4 mg regardless of dose. HYDROmorphone Injectable (DILAUDID)DOSE = 0.4 mg IntraVenous Push Every 4 Hours, PRN Pain - Severe (7-10) HYDROmorphone Injectable (DILAUDID)DOSE = 0.4 mg IntraVenous Push Every 5 Minutes, PRN Pain - Severe (7-10) (PACU)Clinician Notes: Carlota-operative order ONLYMax total of 4 mg regardless of dose. Lactated Ringers Infusion IV Bag Volume = 1,000 mL Run at: 100 mL/hr IntraVenous Clinician Notes: Carlota-operative order ONLY Lactated Ringers Infusion IV Bag Volume = 1,000 mL Run at: 50 mL/hr IntraVenous Lidocaine 5% TransDermal Film (LIDODERM)DOSE = 1 patch TransDermal Every 24 Hours, Apply to ChestClinician Notes: apply to L chest Methocarbamol Tablet (ROBAXIN)DOSE = 500 mg Oral 4 Times a Day Ondansetron Injectable (ZOFRAN)DOSE = 4 mg IntraVenous Push Every 4 Hours, PRN Nausea & Vomiting Ondansetron Injectable (ZOFRAN)DOSE = 4 mg IntraVenous Push Once, PRN PONV, first lineClinician Notes: Carlota-operative order ONLY oxyCODONE Immediate Release Tablet (OXYIR, ROXICODONE)DOSE = 5 mg Oral Every 4 Hours, PRN Pain - Mod (4-6) Promethazine IV Piggy Back in Sodium Chloride 0.9% 50 mL (PHENERGAN)DOSE = 6.25 mg Once, PRN persistent PONV if first line ineffectiveRecommended Infusion Time: 15 minute(s)Clinician Notes: Carlota-operative order ONLY Normal [facility] Patient Profile - Preop v2on 02-11-2021 Patient Profile - Preop v2 Profile: Initial Info: How to be AddressedDel(1) Spoken Language PreferredEnglish (1) Source of Informationpatient Are you currently using the Personal Electronic Health Record or CarWaleno (1) Are you interested in learning more about LinkCycleLibertadCard for the management of your healthnot at this time Stated Reason for AdmissionL pulling of wires/pulling lung down Primary Contact Name and NumberAdam [phone] Patient Belongingspatient educated regarding responsibility for personal items Medications Brought to Hospitalno General Health: Weight in kg109.8 kilogram(s) Weight in vxk791 pound(s) Weight Methodactual (measured) Scale Typestanding Height in feet6 feet Height in inches0 inch(es) Height in cm182.8 centimeter(s) Height Methodstated BMI (kg/m2)32.858 square meter Patient or Family Member Reaction to Anesthesiano previous reaction Blood Avoidance/Restrictionsnone Health Mgmt: Symptoms/Conditions Managed at Homecardiovascular; respiratory Barriers to Managing Healthnone Relationship/Environ: Resource/Environmental Concernsnone Substance: Current or Former Substance Use never: Cigarette/Tobacco, e-Cigarette/Vaping, Alcohol, Street Drugs Risk Screens: COVID-19 Screening Completedno exposure or symptoms Travel or ExposureNO travel to International locations in the past 30 days Advance Directive/DNRno During the past month, have you often been bothered by feeling down, depressed or hopelessno During the past month, have you often had little interest or pleasure in doing thingsno Have you had any thoughts of harming anyone elseno Risk Screen Not Applicable/Able to Answerable to be screened In the Past Month: Have you wished you were or could go to sleep and not wake upno In the Past Month: Have you had any actual thoughts of killing yourselfno Lifetime: Have you ever done, started to do, or prepared to do anything to end your lifeno Are you or have you been threatened or abused physically,emotionally or sexually abused by anyoneno Do you feel UNSAFE going back to the place you are livingno Patient is Able to be Assessed for Learningyes Factors Influencing Readiness to Learninterest in learning Factors that Impact Ability to Learnnone Devices/Methods Used to Communicatenone Learning Preferencesverbal instruction Cultural Considerationsnone Developmental Considerationsnone Temple Considerationsnone Other learner availableno [place] RiskPatient location auto qualifies him/her for HIGH RISK. Are there any cultural, spiritual, jewish practices/values/needs that are important for us to knowno Pain Scalenumerical 0-10 Pain Scale Educationteaching provided Current Pain Level0 = None Acceptable Pain Level0 = None Chronic Painno Information Review: Allergies, Home Meds and Significant Events have been Reviewed and Verified with Patient/Familyyes Allergy, Intolerance, Adverse Event: Allergies: No Known Allergies: Active Electronic Signatures: Jany Ann (ASIA) (Signed 11-Feb-2021 12:07) Authored: Initial Info, General Health, Health Mgmt, Relationship/Environ, Substance, Risk Screens, Additional Information Last Updated: 11-Feb-2021 12:07 by Jany Ann (ASIA) References: 1. Data Referenced From Patient Profile - Adult v2 12-Dec-2017 16:00 Normal [facility] Preop Checkliston 02-11-2021 Preop Checklist Preop Checklist: Preop Checklist: Arrival [id number] Arrival Time11:48 Procedure TypeL laparoscopic diaphragm plication Temperature C36.1 degrees C Temperature F96.9 degrees F Heart Rate70 beats per minute Respiratory Rate12 breath per minute Blood Pressure Hdgmkmdp459 mm/Hg Blood Pressure Wqvduespg12 mm/Hg NPO [id number] 00:00 ID Band Onyes Allergy Bandno known allergies Consent Signedpending H&P Completeyes Anesthesia Assessment Completedpending EKG Performedsee results tab Chest X-Ray Performedsee results tab HCG Urine TestN/A Chlorhexadine Bath Givennot applicable Nasal Antiseptic Appliednot applicable Hair Washednot applicable Soap and water bath with hair shampoo the night before surgerynot applicable Hat placed on infant prior to transportnot applicable SCD's Appliedsent to OR MARLEE Hose Appliednot ordered Denturesnot applicable Prostheticsnot applicable Hearing Aidsnot applicable Valuables Securedplaced in locker Glasses / Contactsnot applicable Cardiovascular Assessment: Apicalregular Extremitieswarm, well perfused Respiratory Assessment: Respirationsunlabored regular Air Exchangeequal Neurological Assessment: Level of Consciousnessalert Mobilitymoves all extremities Able to Express Selfyes Age Appropriateyes Emotional Statusanxious Skin Assessment: Skin Site(s) with Current Compromisenone Preop Education: Surgical Site Infection Preventionyes Pain Scales and Managementyes Language / Communication: Language / CommunicationEnglish Electronic Signatures: Jany Ann (RN) (Signed 11-Feb-2021 12:02) Authored: Preop Checklist Last Updated: 11-Feb-2021 12:02 by Jany Ann (RN) Normal [facility] Radiologyon 02-11-2021 XR Chest Single view Please click on the link to view the study images Normal [place] [address] Work Phone: [facility] Pathology Depar tmenton 02-11-2021 [facility] Department Name RIGO JEFFERSON Pathologist: JACINTO MURRIETA MD Date of Procedure: 02/11/2021 Date Received: 02/12/2021 Date Reported 02/19/2021 Submitting Physician: DANIEL CABALLERO M.D. Location: [facility] Copy To/Referring/Attending: DANIEL CABALLERO M.D. Other External # FINAL DIAGNOSIS A. SPECIMEN LABELED PACING WIRE : -- FRAGMENT OF ADIPOSE TISSUE WITH NO SPECIFIC PATHOLOGIC CHANGES. -- PACING WIRE (SEE GROSS DESCRIPTION). afn Electronically Signed Out By JACINTO MURRIETA MD/AFN By the signature on this report, the individual or group listed as making the Final Interpretation/Diagnosis certifies that they have reviewed this case. Clinical History: Physician Contact Number: [id number] Fixative (A): Fresh Clinical Diagnosis History: disorders of diaphragm Specimens Submitted As: A: PACING WIRE Gross Description: Received in formalin, labeled with the patient's name and hospital number, are multiple wires with a piece of adipose tissue attached measuring 3.0 x 1.6 x 1.0 cm. A photograph is taken. The attached soft tissue is submitted entirely in one cassette. EXB exb/02/12/2021 [facility] Department of Pathology [id number] [place] [address] Normal [facility] Comment on above: Performed By: #### U HCS ####[facility] [id number] [place] [address] CORONAVIRUS 2019, SCREEN ASY MPTOMATICon 02-10-2021 SARS-CoV-2 (COVID-19) RNA BECCA+probe Ql (Unsp spec) Not detected Normal Not Detected [facility] Comment on above: Result Comment: . This assay is designed to detect the N, ORF1ab and/or S genes of SARS-CoV-2 via nucleic acid amplification. A Negative (NOT DETECTED) result does not preclude 2019-nCoV infection since the adequacy of sample collection and/or low viral burden may result in presence of viral nucleic acids below the clinical sensitivity of this test method. Negative (NOT DETECTED) result should not be used as the sole basis for treatment or other patient management decisions. Rather negative results should be combined with clinical observations, patient history, and epidemiological information to make patient management decisions. Fact sheet for providers: https://www.fda.gov/media/437306/download Fact sheet for patients: https://www.fda.gov/media/756112/download This test has received FDA Emergency Use Authorization (EUA) and has been verified by [facility] ([facility]). This test is only authorized for the duration of time that circumstances exist to justify the authorization of the emergency use of in vitro diagnostic tests for the detection of SARS-CoV-2 virus and/or diagnosis of COVID-19 infection under section 564(b)(1) of the Act, 21 U.S.C. 360bbb-3(b)(1), unless the authorization is terminated or revoked sooner. [facility] is certified under CLIA-88 as qualified to perform high complexity testing. Testing is performed in the [facility] laboratories located at [address] [place] [address]. Performed By: #### C OVSC #### [place] [address] Covid 19 Resultson SARS-CoV-2 (COVID-19) RNA BECCA+probe Ql (Unsp spec) NEGATIVE COVID-19 Test Coronaviruses are common world-wide and are the cause of many common colds. SARS-COV2 is a new coronavirus that began circulating worldwide in 2019 so we are calling it COVID-19. It has been estimated that four out of five patients with COVID-19 will recover at home without the need for medical attention. Symptoms of COVID-19 may include cough, fever, shortness of breath, loss of taste or smell and other flu-like symptoms including chills, sore muscles, sore throat, and headache. Severe illness is more common in older people and people with other health problems such as high blood pressure, obesity, and immune system problems. If the test is positive, you have COVID-19. You will be contacted by the ordering physicians office and instructed to remain on home isolation, in accordance with CDC guidelines. You may also be contacted by the [facility] to see if any of your close contacts may have been exposed to the virus and need to quarantine. If the test is negative, you likely do not have COVID-19 at this time, but you still may have a different illness that can spread to other people (like Influenza, or the Flu) and could still be at risk for getting COVID-19. We recommend that you stay away from other people to limit the spread of illness until your symptoms are improving and you are fever-free for 24 hours without the use of fever lowering medications such as acetaminophen or ibuprofen. No test is 100% accurate so if you are still concerned you may have COVID-19, talk to your doctor about the need to continue to stay away from others. Medicines Unless your provider told you not to use the following: Acetaminophen (Tylenol and others) is generally safe. Anti-inflammatory medications, such as Ibuprofen (Advil or Motrin) or Naproxen (Aleve) can also be used. Nvuv-jwj-iutigok cough and cold medicines can be used according to the instructions on the package. Some ifvo-jcd-ryujrqp medicines also contain acetaminophen. Make sure you are not taking more than your recommended dose. For those not hospitalized, there is no specific treatment available for this illness. Antibiotics do not treat Coronaviruses. Follow-Up Follow up with your doctor by scheduling a virtual visit or consider follow-up at one of our urgent care fever clinics. If you are having difficulty breathing, or are very weak and having difficulty standing, this is a medical emergency. Call 911 or have someone take you to the nearest emergency room immediately. If possible, wear a facemask. Additional guidance from the CDC for patients who tested POSITIVE for COVID-19 How to isolate: Isolate yourself in a specific room at home and limit your contact with others. Use a separate bathroom from other members of the household, when possible. Leave home only to get essential medical care. Do not go to work, school or public areas. Avoid using public transportation, ride-sharing, or taxis. Restrict contact with pets and other animals. If you must care for your pet or be around animals while you are sick, wash your hands before and after your interaction and wear a facemask. Make sure that shared spaces in the home have good airflow, such as by an air conditioner or an opened window, weather permitting. Personal Hygiene Procedures: Wear a face mask when in the same room as other people or pets. If a face mask interferes with your breathing, others should wear a mask when sharing space with you. Frequent hand-washing: wash your hands with soap and water for at least 20 seconds. If soap and water are not available, use alcohol-based hand middle school special education teacher. Avoid touching your eyes, nose, and mouth with unwashed hands. Household Hygiene Procedures: Avoid sharing personal household items such as dishes, glassware, cups, eating utensils, towels or bedding with other people or pets in your home. After use, these items should be washed with soap and hot water. Disinfect all high-touch surfaces every day with antibacterial cleaning solutions such as Lysol wipes, bleach, cleansers, etc. High-touch surfaces include tabletops, doorknobs, bathroom fixtures, toilets, phones, keyboards, tablets and bedside tables. Immediately clean any surfaces that may have blood, poop or body fluids on them, using antibacterial cleaning solutions such as Lysol wipes, bleach, cleansers, etc. If clothing or bedding come into contact with blood, poop or body fluids, they should be washed immediately. Follow the directions on the laundry detergent and clothing labels but hot water is recommended when possible. Stopping home isolation precautions: If possible, consult your doctor before stopping home isolation precautions. According to the CDC, you can discontinue home isolation precautions when you have met both of these criteria: Your fever and respiratory symptoms have been gone for 24 alem (more content not included)... Normal [facility] CORONAVIRUS 2019, SCREEN ASY MPTOMATICon 02-09-2021 Lab Specimen Source Nasal, Nasopharyngeal Normal [facility] Comment on above: Performed By: #### C OVSC #### [facility] [address] [place] [address] Coronavirus 2019 RNA by PCR, Screening Asymptomticon 02-09-2021 Coronavirus 2019 RNA by PCR, Screening Asymptomtic Not detected Normal See Below [facility] [address] Work Phone: Comment on above: SOURCE: Nasal, Nasop haryngealReference Range: Not Detected.This assay is designed to detect the N, ORF1ab and/or S genes of SARS-CoV-2 via nucleic acid amplification. A Negative (NOT DETECTED) result does not preclude 2019-nCoV infection since the adequacy of sample collection and/or low viral burden may result in presence of viral nucleic acids below the clinical sensitivity of this test method. Negative (NOT DETECTED) result should not be used as the sole basis for treatment or other patient management decisions. Rather negative results should be combined with clinical observations, patient history, and epidemiological information to make patient management decisions.Fact sheet for providers: https://www.fda.gov/media/151077/downloadFact sheet for patients: https://www.fda.gov/media/415090/downloadThis test has received FDA Emergency Use Authorization (EUA) and has been verified by [facility] ([facility]). This test is only authorized for the duration of time that circumstances exist to justify the authorization of the emergency use of in vitro diagnostic tests for the detection of SARS-CoV-2 virus and/or diagnosis of COVID-19 infection under section 564(b)(1) of the Act, 21 U.S.C. 360bbb-3(b)(1), unless the authorization is terminated or revoked sooner. [facility] is certified under CLIA-88 as qualified to perform high complexity testing. Testing is performed in the [facility] laboratories located at [address] [place] [address]. BASIC METABOLIC PANELon 05-2 Anion gap [Moles/Vol] 13 mmol/L Normal 10 - 20 [facility] Comment on above: Performed By: #### B MP ####[id number] [place] [address] Calcium [Mass/Vol] 9.7 mg/dL Normal 8.6 - 10.6 [facility] Comment on above: Performed By: #### B MP ####[id number] [place] [address] Chloride [Moles/Vol] 108 mmol/L High 98 - 107 [facility] Comment on above: Performed By: #### B MP ####[id number] [place] [address] Creatinine [Mass/Vol] 1.04 mg/dL Normal 0.50 - 1.30 [facility] Comment on above: Performed By: #### B MP ####[id number] [place] [address] GFR- AM. >60 Normal >60 [facility] Comment on above: Result Comment: CALC ULATIONS OF ESTIMATED GFR ARE PERFORMED USING THE MDRD STUDY EQUATION FOR THE IDMS-TRACEABLE CREATININE METHODS. CLIN CHEM 2007;53:766-72 Performed By: #### B MP ####[id number] [place] [address] GFR-NON AM. >60 Normal >60 [facility] Comment on above: Performed By: #### B MP ####[id number] [place] [address] Glucose [Mass/Vol] 91 mg/dL Normal 74 - 99 [facility] Comment on above: Performed By: #### B MP ####[id number] [place] [address] HCO3 (Bld) [Moles/Vol] 29 mmol/L Normal 21 - 32 [facility] Comment on above: Performed By: #### B MP ####[id number] [place] [address] Potassium [Moles/Vol] 4.6 mmol/L Normal 3.5 - 5.3 [facility] Comment on above: Performed By: #### B MP ####[id number] [place] [address] Sodium [Moles/Vol] 145 mmol/L Normal 136 - 145 [facility] Comment on above: Performed By: #### B MP ####[id number] [place] [address] Urea nitrogen [Mass/Vol] 13 mg/dL Normal 6 - 23 [facility] Comment on above: Performed By: #### B MP ####[id number] [place] [address] CBCon 01-27-2021 Erythrocyte distribution width (RBC) [Ratio] 12.2 % Normal 11.5 - 14.5 [facility] Comment on above: Performed By: #### C BC ####[id number] [place] [address] Hematocrit (Bld) [Volume fraction] 46.7 % Normal 41.0 - 52.0 [facility] Comment on above: Performed By: #### C BC ####[id number] [place] [address] Hemoglobin (Bld) [Mass/Vol] 15.1 g/dL Normal 13.5 - 17.5 [facility] Comment on above: Performed By: #### C BC ####[id number] [place] [address] MCHC (RBC) [Mass/Vol] 32.3 g/dL Normal 32.0 - 36.0 [facility] Comment on above: Performed By: #### C BC ####[id number] [place] [address] MCV (RBC) [Entitic vol] 96 fL Normal 80 - [address] [facility] Comment on above: Performed By: #### C BC ####[id number] [place] [address] NUCLEATED RBC 0.0 /100 WBC Normal 0.0-0.0 [facility] Comment on above: Performed By: #### C BC ####[id number] [place] [address] Platelets (Bld) [#/Vol] 209 10*3/uL Normal 150 - 450 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) Orders Diaphragm dysfunction, HTN (hypertension) Basic Metabolic Panel; Status:In Progress - Specimen/Data Collected; Done: 27Jan2021 Perform:Lab Services - Lab To Draw (Blood Test); Due:27Apr2021;Ordered; For:Diaphragm dysfunction, HTN (hypertension); Ordered By:Chandan Cool; Complete Blood Count; Status:In Progress - Specimen/Data Collected; Done: 27Jan2021 Perform:Lab Services - Lab To Draw (Blood Test); Due:27Apr2021;Ordered; For:Diaphragm dysfunction, HTN (hypertension); Ordered By:Chandan Cool; Electrocardiogram EKG; Status:Hold For - Scheduling; Requested for:27Jan2021; Perform:[facility] [place] 1800; Due:27Apr2021;Ordered; For:Diaphragm dysfunction, HTN (hypertension); Ordered By:Chandan Cool; Unlinked Continue: Atorvastatin Calcium 40 MG Oral Tablet Dispense: 30 Days ; #:30; Refill: 0; MICAELA = N; Record; Last Updated By: Marion CoolJo; 01/27/2021 11:56:56 AM Continue: Clarithromycin 500 MG Oral Tablet; TAKE 1 TABLET BY MOUTH EVERY 12 HOURS (hold lipitor for TEN days) Rx By: Osorio; Dispense: 7 Days ; #:14; Refill: 0; MICAELA = N; Record; Last Updated By: TravonMarionJo; 01/27/2021 11:56:56 AM Continue: oxyCODONE-Acetaminophen 5-325 MG Oral Tablet Dispense: 30 Days ; #:120; Refill: 0; MICAELA = N; Record; Last Updated By: Travon Chandan; 01/27/2021 11:56:56 AM Patient Discussion/Summary 60 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 DP has not changed his overall breathing function. After 3 years of pacing with no changes in the last year, it is unlikely for pacing to be of any more benefit. Plication con offer 30-40 % improvement in breathing capacity. You would need to spend 1-2 nights and there will be small chest tube after surgery. Other options is to pursue BiPap instead of the CPAP> A BiPap machine forces a larger amount of air into your lungs when you inhale and then the pressure drops so that you can exhale. It is common for people with diaphragm paralysis to have hypoventilation (they underbreath) when the sleep. a BiPap can give you bigger breath. We will get CXR and EKG and pursue Fabian [address] Caballero will remove the electrodes during that surgery. You will need a COVID test - there is a COVID team that will contact you. Please let us know if you do not the test scheduled. Chief Complaint Broken L1, routine follow up. History of Present IllnessMr. Li came in today accompanied by his son. 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 He was turning the device off 1-2 hours daily and did work on deep breathing. He developed a broken L1 electrode about 2 weeks ago and has not paced since that time. He has not noted a difference from the time he was pacing and these past 2 weeks. He does still wear a CPAP at night and reports that he will dip down to saturation of 88%. He gets winded with exertion. 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) Surgical History History of Cholecystectomy History of Gallbladder Surgery History of Knee Surgery Left History of Neck Surgery History of Tonsillectomy Family History No pertinent family history Social History Former smoker (V15.82) (Z87.891) No alcohol use Allergies No Known Allergies Recorded By: Susana Bell; 11/28/2017 10:22:51 AM Current Meds Medication NameInstruction Atorvastatin Calcium 40 MG Oral Tablet Clarithromycin 500 MG Oral TabletTAKE 1 TABLET BY MOUTH EVERY 12 HOURS (hold lipitor for TEN days) oxyCODONE-Acetaminophen 5-325 MG Oral Tablet Vitals Vital Signs Recorded: 20Sml1961 11:12AM Wsdhnoervaq06.1 F Heart Rate77 Psiuwurm336 Gggqlvmrd38 Zhghzl592 lb BMI Kgfxpepmfi28.64 kg/m2 BSA Calculated2.33 Tobacco Useb) No Physical Exam Constitutional - General appearance: In no acute distress, well appearing and well nourished. Ears, Nose, Mouth, and Throat - External inspection of ears and nose: Normal. Pulmonary - Respiratory effort: Normal respiration. Auscultation of lungs: Abnormal. very diminished on left side half up from base. Cardiovascular - Auscultation of heart: Normal rate and rhythm, no murmurs. Abdomen - Abdomen: Non-tender, no abdominal masses. wire sites slightly red but only at exit, no drainage no firmness. Musculoskeletal - Digits and nails: Normal without clubbing or cyanosis. Psychiatric - Orientation to person, place, and time: Normal. Mood and affect: Normal. Results/Data CXR done today and reviewed by me. The left HD is unchanged and very elevated. EMG done today and reviewed by me. There is some left EMG activity but this has not changed since 2018. It is very small compared to the r (more content not included)... Normal [employer] No Panel Informationon 01-27 [email or web address] 1:8080 [email or web address]?R etrieveTestByDateTime?Sherita nmfYI=[id number]&Date=&Time=13%3a24%3a34%3a 00&TestType=ECG&Site=1&Out putType=PDF&Ext=PDF BQ-Yzsipuq-[address] Work Phone: Normal sinus rhythm MG-Ramos rgery-[address] Work Phone: [phone] Normal UT-Zhpvmgb-[address] Work Phone: [phone] 1 IO-Jjooxgp-[address] Work Phone: [phone] 1 MT-Wogqbbe-[address] Work Phone: [phone] 1 RK-Zpyogvi-[address] Work Phone: [phone] 1 SL-Yikivyg-[address] Work Phone: [phone] 1 TS-Qmmjomb-[address] Work Phone: [phone] 1 PK-Bgmrujx-[address] Work Phone: [phone] 1 JL-Hnzsich-[address] Work Phone: [phone] 1 AW-Nkfkwxj-[address] Work Phone: [phone] 1 OZ-Quawznm-[address] Work Phone: [phone] 1 AQ-Qceavpp-[address] Work Phone: [phone] 1 SX-Xnqlgaq-[address] Work Phone: [phone] 1 [address]-Qjqsgew-[address] Work Phone: [phone] 1 CD-Bmmgagg-[address] Work Phone: [phone] ER-Dcbpada-[address] Work Phone: Radiologyon 01-27-2021 XR Chest 2 Views Normal MG-Surge ry-[address] Work Phone: TH CHEST 2 VIEW PA AND LATon 01-27-2021 TH CHEST 2 VIEW PA AND LAT Patient Name: RIGO JEFFERSON STUDY: TH CHEST 2 VIEW PA AND LAT; 01/27/2021 11:00 am INDICATION: chronic hypoventilation. COMPARISON: Chest radiograph 04/03/2019 ACCESSION NUMBER(S): [id number] ORDERING CLINICIAN: DANIEL CABALLERO FINDINGS: Inspiratory and expiratory PA radiographs, an additional PA dual energy subtraction images of the chest, are available for interpretation. CARDIOMEDIASTINAL SILHOUETTE: The cardiomediastinal silhouette is stable in size and configuration. LUNGS: There is similar elevation of left hemidiaphragm with mild bandlike left basilar atelectasis/scarring. There is decreased excursion of left hemidiaphragm as compared to right on inspiratory and expiratory imaging. Otherwise, there is no pulmonary edema. No focal consolidation or sizeable pleural effusion is identified. No pneumothorax is seen. ABDOMEN: No remarkable upper abdominal findings. BONES: No acute osseous abnormality. Partially visualized cervical spinal fusion hardware. IMPRESSION: 1. Decreased excursion of left and diaphragm as compared to right on inspiratory and expiratory imaging. 2. No evidence of acute cardiopulmonary process. Similar elevation of left hemidiaphragm with mild bandlike left basilar atelectasis/scarring. Electronically signed by: ANGI CAICEDO MD Normal [facility] Tobacco Screening.on 021 Tobacco use status [facility] b) No RD-Nboxahk[address] Work Phone: Tobacco Screening. b) No MG-Tino raysa-[address] Work Phone: Otheron 04-03-2019 XR Chest 2 views Interpreted by: ISAK04/03/19 14:06MRN: [id number] Name: RIGO JEFFERSON STUDY:CHEST 2 VIEW PA AND LAT; 04/03/2019 1:26 pm INDICATION:chronic hypoventilation. COMPARISON:01/12/2018 ORDERING CLINICIAN:DANIEL CABALLERO FINDINGS:Cardiac silhouette size is within normal limits. There is elevation of left hemidiaphragm, unchanged left basilaratelectasis. Symmetric but decreased excursion of bilateralhemidiaphragm. There is no edema or pneumothorax No acute osseous abnormality. Postsurgical changes in the cervicalspine. IMPRESSION:1. Symmetric but decreased excursion of bilateral hemidiaphragm.2. Unchanged elevated left hemidiaphragm with left basilaratelectasis. Electronically signed by: ISAK 04/03/19 14:06 Normal FR-Tcdstfi-[address] Work Phone: Vital Signs Date Time Vital Sign Value Performing Clinician Facility 02-12-2021 14:10-0400 SaO2% (BldA) [Mass fraction] 95 % No Pcp Required [facility] 02-12-2021 14:00-0400 Body temperature 97.16 [degF] No Pcp Required [facility] 02-12-2021 14:00-0400 Diastolic blood pressure 83 mm[Hg] No Pcp Required [facility] 02-12-2021 14:00-0400 Heart rate 81 /min No Pcp Required [facility] 02-12-2021 14:00-0400 Respiratory rate 18 /min No Pcp Required [facility] 02-12-2021 14:00-0400 Systolic blood pressure 131 mm[Hg] No Pcp Required [facility] 02-12-2021 03:31-0400 Body height 182.8 cm No Pcp Required [facility] 02-12-2021 03:31-0400 Body weight 109.8 kg No Pcp Required [facility] 01-27-2021 11:12-0400 Body mass index (BMI) [Ratio] 33.64 kg/m2 Daniel Caballero MD Work Phone: GA-[address] Work Phone: 01-27-2021 11:12-0400 Body surface area Derived from formula 2.33 m2 Daniel Caballero MD Work Phone: BO-Yjuwkvi[address] Work Phone: 01-27-2021 11:12-0400 Body temperature 96.1 [degF] Daniel Caballero MD Work Phone: CM-[address] Work Phone: 01-27-2021 11:12-0400 Body weight 112.49 kg Daniel Caballero MD Work Phone: UN-[address] Work Phone: 01-27-2021 11:12-0400 Diastolic blood pressure 85 mm[Hg] Daniel Caballero MD Work Phone: MX-[address]fu[address] Work Phone: 01-27-2021 11:12-0400 Heart rate 77 /min Daniel Caballero MD Work Phone: XV-Aja[address]pl[address] Work Phone: 01-27-2021 11:12-0400 Systolic blood pressure 157 mm[Hg] Dnaiel Caballero MD Work Phone: YG-Mghqmlk[address] Work Phone: 04-03-2019 15:37-0400 BMI (Body Mass Index) 30.11 kg/m2 Chandan [place] [facility] -[place] [address] Work Phone: 04-03-2019 15:37-0400 Body Temperature 97.9 [degF] Chandan Travon JC-Gcnsaby-[address] Work Phone: 04-03-2019 15:37-0400 Body weight 100.7 kg Chandan Travon HC-Wpaiciq-[address] Work Phone: 04-03-2019 15:37-0400 BP Diastolic 74 mm[Hg] Chandan Travon LD-Httrwsa-[address] Work Phone: 04-03-2019 15:37-0400 BP Systolic 121 mm[Hg] Chandan Travon BA-Vxzstkq-Ph[address]99 Work Phone: 04-03-2019 15:37-0400 BSA (Body Surface Area) 2.23 m2 Chandan [place] YF-Rqxmjyk-[address] Work Phone: 04-03-2019 15:37-0400 Height 182.88 cm Chandan Travon VC-Geqykxn-Xipnr ll 2099 Work Phone: 04-03-2019 15:37-0400 Pulse (Heart Rate) 58 /min Chandan Cool JE-Gvxoosi-[address] Work Phone: Encounters Encounter Date Encounter Type Care Provider Facility Start: 10-05-2023 End: 10-05-2023 ambulatory JONATHAN H ITZKOWITZ Not Available Start: 09-26-2023 End: 09-26-2023 ambulatory JONATHAN H ITZKOWITZ Not Available Start: 08-18-2023 End: 08-18-2023 ambulatory COREAS FAWWAD Not Available Start: 02-17-2023 ambulatory COREAS H FAWWAD Facilit y:H1 Start: 12-09-2022 End: 12-10-2022 ambulatory COREAS H FAWWAD Facility:H1 Start: 12-08-2022 End: 12-09-2022 ambulatory COREAS H FAWWAD Facility:H1 Start: 11-25-2022 End: 11-26-2022 ambulatory COREAS H FAWWAD Facility:H1 Start: 09-03-2022 End: 09-04-2022 ambulatory COREAS H FAWWAD Facility:H1 Start: 06-01-2022 End: 06-02-2022 ambulatory COREAS H FAWWAD Facility:H1 Start: 05-31-2022 End: 06-01-2022 ambulatory COREAS H FAWWAD Facility:H1 Start: 05-18-2022 End: 05-19-2022 ambulatory COREAS H FAWWAD Facility:H1 Start: 04-29-2022 End: 04-30-2022 ambulatory COREAS H FAWWAD Facility:H1 Start: 01-27-2022 End: 01-28-2022 ambulatory COREAS H FAWWAD Facility:H1 Start: 04-02-2021 Postop follow up vis it related to original px No PCP None QB-[address] Work Phone: Start: 02-20-2021 Chart Update No PCP None [facility]gery [facility] Work Phone: Start: 02-11-2021 End: 02-12-2021 Evaluation and management of inpatient Daniel Caballero [facility] [place] [facility] [place]11 01 Start: 01-27-2021 Chart Update Daniel Caballero MD Work Phone: NC-[address] Work Phone: Start: 04-03-2019 Patient encounter procedure Chandan Cool SP-Vigjhiy-[address] Work Phone: Start: 01-12-2018 Patient encounter procedure Chandan Cool OG-Pedapks[address] Work Phone: Start: 11-28-2017 Patient encounter procedure Chandan Cool RB-Fxyttzn-[address] Work Phone: Start: 11-28-2017 Patient encounter procedure Chandan Cool VE-[address] Work Phone: Procedures Date Procedure Procedure Detail Performing Clinician Start: 03-30-2019 Xray Chest 2 View PA + Lateral Chandan Cool Cholecystectomy Chandan Cool History of Gallbladd er Surgery Chandan Cool History of Knee Surgery Left Chandan Cool History of Neck Surgery Marion Cool Tonsillectomy Chandan Cool Plan of Treatment Date Care Activity Detail Author Start: 02-11-2021 End: 02-12-2022 Ondansetron Injectable 4 mg IntraVenous Push Every 6 Hours PRN ; (ZOFRAN)DOSE = 4 mg IntraVenous Push Every 4 Hours, PRN Nausea & Vomiting Start: 11-Feb-2021 End: 11-Feb-2022 Ordered: 11-Feb-2021 Jane Yo Intent [facility] Payers Date Payer Category Payer Unknown [id number] 2018 Unknown 1960 Medicare [id number] 1960 Unknown [id number] 2.16.84 [id number] 1959 Unknown [id number] 2.16.84 [id number] 1959 Unknown [id number] 2.16.84 0.1.637293.3.579.2.593 1959 Unknown [id number] 2.16.84 0.1.151763.3.579.2.593 1959 Unknown [id number] 2.16.84 0.1.920557.3.579.2.593 1959 Unknown [id number] 2.16.84 0.1.546120.3.579.2.593 1959 Unknown [id number] 2.16.84 0.1.949172.3.579.2.593 1959 Unknown [id number] 2.16.84 0.1.661576.3.579.2.593 1959 Unknown [id number] 2.16.84 0.1.607851.3.579.2.593 1959 Unknown [id number] 2.16.84 0.1.055837.3.579.2.593 1959 Unknown [id number] 2.16.84 0.1.088640.3.579.2.1259 1959 Unknown [id number] 2.16.84 0.1.875128.3.579.2.1259 1959 Unknown [id number] 2.16.840 .[id number] Social History Date Type Detail Facility Former smoker Former smoker GZ-Sm[address]wjo[address] Work Phone: Tobacco smoking consumption unknown [facility] NEGATED: Highlighted row - - MG- Surgery-[address] Work Phone: Functional Status Date Assessment Result Facility Functional observable [facility] NEGATED: Highlighted row Functional performance Functional status health issues are not documented Disease UX-Vus[address] Work Phone: Mental Status Date Assessment Result Facility 02-12-2021 Cognitive functi ons [id number] [facility] NEGATED: Highlighted row Cognitive function [Interpretation] Cognitive status health issues are not documented Disease MT-Gbcltni-[address] Work Phone: Clinical Notes 02-11-2021 to 04-06-2023 <item><item><item><item><item> Note Date & Type Note Facility 12-09-2022 Note CONSULTATION PROCEDURE DATE: 12/09/2022 PROCEDURE: Bilateral suprascapular nerve injection in the office. PREOPERATIVE DIAGNOSIS: Bilateral shoulder pain secondary to rotator cuff strain, impingement syndrome, more significant on the right than the left side, and osteoarthrosis. POSTOPERATIVE DIAGNOSIS: Bilateral shoulder pain secondary to rotator cuff strain, impingement syndrome, more significant on the right than the left side, and osteoarthrosis. SOLUTION USED FOR INJECTION: 4 mL of 2.% lidocaine, 4 mL of 0.25 %,Marcaine and 10 mg of Kenalog, a total of 9 cc and 1 mL used for the injection at the site. IMMEDIATE COMPLICATIONS: None. PROCEDURE: After informed consent was obtained from the patient, placed in the sitting position. Skin overlying the area was prepped with alcohol. A 25 gauge, 1 1/2 inch needle was inserted over the area of the right suprascapular nerve. The needle tip was advanced until there was mild paresthesia in the distribution of the suprascapular nerve on the right side. At that point, we re-directed the needle tip. When the paresthesia completely resolved, no indication of intravascular needle tip placement, 1 mL of solution was injected. This was repeated in a similar fashion on the contralateral side. No evidence of post procedural pneumothorax was noted. As part of providing excellent, safe, comprehensive care, the following was completed at our patient's visit: 1. A medication reconciliation and review to ensure accurate knowledge of current/active medications, including asking our patients to inform us about any covy-wjb-wtgkyhn medications or herbal remedies/nutritional supplements/alternative remedies. 2. A review to specifically ensure our patients have had annual screening for: elevated body mass index (BMI, see intake chart for exact total), tobacco use, screening for depression, and screening for unhealthy alcohol use. When screening is concerning, patients are provided with education and the specific recommendation to discuss the concerning health issue and treatment options with their primary care provider. [facility] 11-25-2022 Note CONSULTATION CONSULTATION DATE: 11/25/2022 TO: Dr. Jasso CHIEF COMPLAINT: Includes severe bilateral shoulder pain, worse on the right than the left side, rated 5-7/10 pain, sharp in character, increased with lifting maneuvers, pushing/pulling maneuvers. He feels most comfortable in the semi-recumbent position. Denies any change in bowel and bladder habits or new sensorimotor changes in the upper extremities. He reports progressive weakness in the shoulders when performing lifting maneuvers. EXAM: His examination is notable for the patient having no clinical radiculopathy or myelopathy involving his upper extremities. Patient did have pain occurring bilaterally, more significant on the right than the left side, when performing shoulder flexion, shoulder extension with internal rotation and adduction, as well as shoulder abduction. Range of motion was maintained but was difficult because of the pain during these maneuvers. Patient had a fair amount of myofascial spasm involving the cervical paravertebral as well as trapezius occurring bilaterally. IMPRESSION: The patient appears to have chronic pain secondary to bilateral shoulder pain, possibly related to rotator cuff strain/possible tear. He has failed physical therapy and has been unresponsive to the use of ibuprofen for at least the last two months, as well as activity modification. RECOMMENDATIONS: I have recommended he increase his baclofen 10 mg pills, half a pill to one pill in the morning, 1-2 at h.s. as tolerated. To proceed with bilateral suprascapular injection. We will obtain urine toxicology screen on today's visits, and we have refilled his trazodone as well. We will proceed with an MRI of his shoulders, bilaterally, without contrast. [facility] 09-03-2022 Note CONSULTATION CONSULTATION DATE: 09/03/2022 HISTORY OF PRESENT ILLNESS: This is a 62-year-old gentleman who returns to the clinic for a three month follow up for polyarthralgia and chronic lower back pain. Today, he is fairly uncomfortable, rates his pain 6/10. He has been physically active outside and feels his arthritis is flared up. His PCP is Dr. Jasso and he has him on Motrin 800 mg b.i.d. Other medications include baclofen 10 mg q.h.s., Percocet 5/325 b.i.d., gabapentin 300 mg daily and lidocaine patch. He is making a cautious attempt to be more active, but he feels that his knees are more painful as a result. At his last appointment on 06/01/2022, Dr. Duncan discussed cervical medial branch blocks, but patient declines any further cervical procedures. Activities such as standing, walking, pushing, pulling and lifting aggravate his pain. He does use Icy Hot and hot showers decrease his pain. Patient's REVIEW OF SYSTEMS / PAST MEDICAL HISTORY / ALLERGIES and IMAGES have been reviewed and noted in the chart. PHYSICAL EXAM: VITAL SIGNS: Blood pressure 170/90, heart rate is 75. Temperature is 97.8. He is 6' tall, weighs 121 kg. GENERAL IMPRESSION: Pleasant, appropriate, in no acute distress. FOCUSED EXAM: Patient with multi-joint pain that is reproduced upon palpation; specifically, bilateral knees, shoulders and hips. BACK: Range of motion is functional in lateral rotation and flexion/extension. Paravertebral muscles are non-spasmodic. Pily's point non-tender bilaterally with no radiating pain. NECK: Range of motion is functional in lateral rotation and flexion/extension. Cervical trapezius muscles are taut, mildly spasmodic. MUSCULOSKELETAL: Upper and lower extremities with motor intact, 4/5 bilaterally. Slight muscle disuse to quadriceps bilaterally. NEUROLOGICAL: Radicular sensory is intact. Negative polyneuropathy. DIAGNOSIS: Chronic pain syndrome, polyarthralgia, cervical spondylosis. PLAN: We will increase his Percocet 5/325 t.i.d. Patient expresses difficulty sleeping due to pain. We will trial trazodone 100 mg q.h.s. Patient does state that his PCP does check yearly blood work and he has had no kidney difficulties as a result of his NSAID use. We will see him in three months' time, unless otherwise indicated. [facility] 06-01-2022 Note CONSULTATION CONSULTATION DATE: 06/01/2022 CHIEF COMPLAINT: Cervical pain. HISTORY OF PRESENT ILLNESS: This is a very pleasant, 62-year-old gentleman who is known to the Pain Clinic. The patient recently had cervical trigger point injections which afforded him substantial relief on 05/18/2022. The patient had x-rays of his cervical spine which show degenerative changes above the fusion site and cervical spondylosis. The patient states the pain has decreased substantially to a 1-2/10. Twisting his neck, he can hear a pop. Lifting aggravates the pain. The patient currently takes ibuprofen, baclofen 10 mg h.s., Percocet 5/325 on a b.i.d. basis. The patient also uses the VicTangler heat rub to his cervical spine. The patient's PAST MEDICAL HISTORY / SURGICAL HISTORY / REVIEW OF SYSTEMS are noted on the chart, along with the MEDICATION LIST / ALLERGIES and RADIOLOGICAL IMAGES. PHYSICAL EXAMINATION: Upon physical examination, this is a pleasant, cooperative gentleman who is accompanied by his grandson. VITAL SIGNS: Stable at 137/87 with a heart rate of 85. At a height of 6', the patient weighs 119 kg. EVALUATION OF THE CERVICAL SPINE: The patient maintains a good functional range of motion. The patient is not guarded. The patient states he does not have difficulty in driving, is able to look over his shoulders. EXTREMITIES: No clubbing or cyanosis. MUSCULOSKELETAL: Intact in the upper extremities at 5/5 bilaterally. NEUROLOGICALLY: No radicular symptomatology. PSYCHIATRICALLY: Affect is appropriate. IMPRESSION: Cervical degenerative disc disease, cervical spondylosis, myofascial spasming significantly improved. PLAN: Education was done with regards to the patient and the nutritional component. The patient has had a rhizotomy radiofrequency ablation in 2019 and states that this is still maintaining. The medications will be maintained. The patient will be followed up in three months. CC: Shaikh Helena M.D. [facility] 05-18-2022 Note CONSULTATION CONSULTATION DATE: 05/18/2022 HISTORY OF PRESENT ILLNESS: This is a very pleasant, 62-year-old gentleman, who is known to the [facility]. The patient has bilateral shoulder pain. The patient in the remote past has had cervical surgery performed by Dr. Sales on his cervical spine. The patient is here today for bilateral shoulder injection. On the cursory evaluation, we were able to define the patient's range of motion was maintained. The patient had significant spasming along the trapezius muscle. The patient reports the pain as a 4-5/10. Changes in the cold weather have aggravated the patient's pain. ADLs, activities, pushing, pulling, lifting aggravate the patient. The patient sleeps on his left hand side. He states, at times, he has to reposition himself; however, when questioning, the pillow height might be an issue given that the patient has had a cervical fusion. The patient currently takes ibuprofen, baclofen 10 mg h.s., Percocet 5/325 on a b.i.d. basis. The patient's PAST MEDICAL HISTORY / SURGICAL HISTORY / REVIEW OF SYSTEMS are noted on the chart, along with the MEDICATION LIST, ALLERGIES and RADIOLOGICAL IMAGES. No recent RADIOLOGICAL IMAGES. PHYSICAL EXAMINATION: GENERAL APPEARANCE: Upon physical examination, this is a pleasant, cooperative gentleman, who has significant tightness and range of motion limitation along his cervicothoracic spine. FOCUSED EVALUATION: The patient has limitation along the extension component. Extension, compression, direct palpation along the posterior elements along the cervicothoracic junction aggravate and reproduce the patient's pain symptomatology concordant with facet arthropathy, cervical spondylosis. Trapezius palpatory evaluation along the trapezius and the splenius cervicis muscle also aggravate and reproduce the patient's pain symptomatology, with a radiating component into his shoulders bilaterally. EXTREMITIES: No clubbing or cyanosis is noted. Of note is the fact that the patient does have some crepitus in his left shoulder compared to his right; however, not extreme. No effusion is noted into his shoulders bilaterally. MUSCULOSKELETAL: Intact in the upper extremities. NEUROLOGICALLY: The patient is grossly intact. PSYCHIATRICALLY: Affect is appropriate. IMPRESSION: Current working diagnosis on the patient is history of osteoarthritis of the shoulders bilaterally, significant spasming along the splenius cervicis and trapezius muscle bilaterally with multiple trigger points; cervicothoracic spondylosis. PLAN: We will get an x-ray of his cervical spine, both flexion/extension. The patient is to apply heat rub to his cervicothoracic region. In the interim, trigger point injections will be done bilaterally. The patient understands and would like to proceed. CC: Shaikh Helena M.D. [facility] 05-18-2022 Note CONSULTATION PROCEDURE DATE: 05/18/2022 PREOPERATIVE DIAGNOSIS: Spasming along the splenius cervicis, trapezius muscle bilaterally. POSTOPERATIVE DIAGNOSIS: Spasming along the splenius cervicis, trapezius muscle bilaterally. PROCEDURE: Trigger point injections bilaterally. Subsequent to obtaining informed consent, the patient was placed in the sitting position. Alcohol prep was used to sterilize the site. A 25 gauge needle was advanced and it comes to rest along the splenius cervicis and trapezius muscle bilaterally. Negative aspiration. Marcaine 0.125% along with Kenalog 10 mg are placed on to four separate sites. Negative heme. The patient tolerates the procedure well, without any overt complication. Will be followed up in the office. [facility] 04-29-2022 Note CONSULTATION CONSULTATION DATE: 04/29/2022 HISTORY OF PRESENT ILLNESS: This is a 62-year-old gentleman who returns to the clinic for chronic bilateral shoulder pain. He was last seen on 01/27/2022 which, at that time, he was doing fairly well and pain was being maintained with his Percocet and ibuprofen. He normally gets bilateral shoulder injections every six months and he feels it is time again for those injections. His last bilateral shoulder injections were in October of 2021. Current medications include Percocet 5/325 b.i.d., baclofen 10 mg q.h.s. Activities that aggravate his pain are housework, lifting, ice application and physical activity. He has limited range of motion in his arms. Patient's REVIEW OF SYSTEMS / PAST MEDICAL HISTORY / ALLERGIES and IMAGES have been reviewed and they are noted on the chart. PHYSICAL EXAM: VITAL SIGNS: Blood pressure 172/97, heart rate is 75. Temperature is 98.4. He is 6' tall and weighs 118 kg. GENERAL APPEARANCE: Pleasant, appropriate, no acute distress. FOCUSED EXAM: Bilateral shoulders with decreased range of motion in adduction and abduction. Patient is unable to raise above 90 degrees bilaterally. Anterior tenderness to palpation. Minimal crepitus to anterior portion of the left shoulder. Muscle strength is 4/5 bilaterally. NEUROLOGICAL: Patchy hypoesthesia diffusely to bilateral upper extremities to fingertips. Left is greater than right. +1 brachioradialis and triceps reflexes. IMPRESSION: Bilateral shoulder osteoarthritis, bilateral shoulder pain. PLAN: We will schedule him with Dr. Duncan for bilateral steroid shoulder injections. In the meantime, we will continue to provide Percocet 5/325 b.i.d. and baclofen 10 mg q.h.s. I did direct him to take an additional 500 mg Extra Strength Tylenol along with the Percocet for longer term relief. Patient was asked to trend down on his ibuprofen. Patient agrees with the plan of care and will return in one week's time for his injections with Dr. Duncan. [facility] 01-27-2022 Note CONSULTATION CONSULTATION DATE: 01/27/2022 HISTORY OF PRESENT ILLNESS: This is a pleasant, 61-year-old male returning to the clinic for a three month follow up for bilateral shoulder pain. His last office visit was 10/13/2021 when he received bilateral shoulder injections by Dr. Duncan at that time. Patient is still reporting 75% relief. Patient does have generalized osteoarthritis which is troublesome for him. His medications include Percocet 5/325 b.i.d. and ibuprofen 600 mg p.r.n. Patient feels that he needs better control of his inflammatory pain. His PCP has recently taken him off all of his blood pressure medications and his gabapentin. Patient is not a diabetic. He is complaining of intermittent numbness to his fingers and bilateral hands. In addition to the Percocet, he takes baclofen 10 mg q.h.s. While the patient was in the hospital for COVID, he did state he took an NSAID. He is unable to recall the name, but it helped greatly with his pain. Patient states he has a bottle at home and will call the office with the name of the prescription. Patient's REVIEW OF SYSTEMS / PAST MEDICAL HISTORY / ALLERGIES and IMAGES have been reviewed and they are noted on the chart. PHYSICAL EXAM: VITALS: Blood pressure is 181/104. Heart rate is 92. Temperature is 97.7. He is 6'1 and weighs 118.3 kg. GENERAL APPEARANCE: Pleasant, appropriate, no acute distress, slightly flush in the face. MUSCULOSKELETAL: Bilateral shoulders with 80% full range of motion in adduction and abduction. Pain is reproduced with decompression along the head of the biceps on the left shoulder. No crepitus noted bilaterally. Gross motor movement is intact. NEUROLOGICALLY: Patchy hypoesthesia noted along C5, C6, C7 depending on position. +1 bilateral brachioradialis reflexes. IMPRESSION: Bilateral shoulder osteoarthritis, chronic pain syndrome. PLAN: Overall, the patient is doing well with his chronic shoulder pain. Patient was asked to call the office with the name of the anti-inflammatory that he received while in the hospital that was very effective to him, and consideration will be given as to whether to prescribe it or not. He is to continue with his multivitamin as well as proper nutrition. The patient agrees with the plan of care and will continue to see him in three month's time, unless otherwise indicated. [facility] Signed and Approved by: RAVINDER ANDERSEN . 02/04/2022 16:12:00 [facility] 02-12-2021 Note Send Summary: Discharge Summary Providers: Provider RoleProvider Name ReferringAda Daniel PrimaryRequired, No Pcp AttendingAda Daniel Note Recipients: Daniel Caballero MD Discharge: Summary: Admission Date: .11-Feb-2021 10:51:00 Discharge Date: 12-Feb-2021 Attending Physician at Discharge: Daniel Caballero Admission Reason: diaphragm pacer removal, hemidiaphragm plication Final Discharge Diagnoses: Hemidiaphragm paralysis Procedures: Date: 11-Feb-2021 18:16:00 Procedure Name: 1. laparoscopic L diaphragm plication 2. removal of bilateral diaphragm pacing wires 3. L pigtail chest tube placement Condition at Discharge: Satisfactory Disposition at Discharge: .Home Vital Signs: T PRBPSpO2 [id number]/8395% Date/Time02/12 12: 12: 12: 12: 12:10 Range(35.4C - 36.4C ) (77 - 99 ) (17 - 18 ) (127 - 147 )/ (83 - 91 ) (92% - 96% ) As of 12-Feb-2021 12:10:00, patient is on 2 L/min of oxygen Date: Weight/Scale Type:Height: 12-Feb-2021 01:78064.8 kg / sxmoahcv506.8 cm Hospital Course: 60 yo male with past medical history significant for hemidiaphragm paralysis s/p pacer, admitted to the hospital s/p pacer removal and L hemidiaphragm plication. Procedure was uncomplicated, pigtail chest tube placed and he was given incentive spirometer. No air leak from chest tube, 150cc out so he was transitioned to water seal. Repeat CXRs showing no evidence of pneumothorax. Chest tube was successfully removed and patient remained HDS. He was weaned off supplemental O2, tolerated regular diet. He was restarted on his home medications. He will be discharged home on his home medications with outpatient follow-up with PCP and Dr. Caballero in 2 weeks. Patient understands and is agreeable to the plan. Discharge Information: and Continuing Care: Lab Results - Pending: Surgical Pathology Drawn at 11-Feb-2021 17:55:00 Radiology Results - Pending: Xray Chest 1 View at 11-Feb-2021 18:05:00 Discharge Instructions: Follow-up outpatient in 2 weeks take your medications as directed Follow Up Appointments: Follow-Up Appointment 01: Physician/Dept/Service: Your PCP Reason for Referral: hospital follow-up Call to Schedule in: 1 week Follow-Up Appointment 02: Physician/Dept/Service: Dr. Caballero - surgery Reason for Referral: hospital follow-up / diaphragm pacer removal, hemidiaphragm plication Call to Schedule in: 2 weeks Location: [address] [place] [address] Discharge Medications: Home Medication clarithromycin 250 mg oral tablet - 250 milligram(s) orally once a day oxycodone-acetaminophen 5 mg-300 mg oral tablet - 1 tab(s) orally 2 times a day diclofenac sodium 50 mg oral delayed release tablet - 1 tab(s) orally 2 times a day Kristina 24 Hour Allergy oral tablet - 1 tab(s) orally once a day acetaminophen 325 mg oral tablet - 2 tab(s) orally every 6 hours as needed for pain PRN Medication Signature/Cosignature/Attestation: Note Completion: I am a: Resident/Fellow Attending AttestationI reviewed the resident/fellows documentation and discussed the patient with the resident/fellow. I agree with the resident/fellows medical decision making as documented in the note. Electronic Signatures: Jim Faith (DO (Resident)) (Signed 12-Feb-2021 17:35) Authored: Send Summary, Summary Content, Ongoing Care, Note Completion Daniel Caballero) (Signed 13-Feb-2021 10:13) Authored: Note Completion Co-Signer: Send Summary, Summary Content, Ongoing Care, Note Completion Last Updated: 13-Feb-2021 10:13 by Daniel Caballero) [facility] 02-11-2021 Note Post Operative Note: PreOp Diagnosis: diaphragm paralysis Post-Procedure Diagnosis: same Procedure: 1. laparoscopic L diaphragm plication 2. removal of bilateral diaphragm pacing wires 3. L pigtail chest tube placement Surgeon: Dr Daniel Caballero Resident/Fellow/Other Collision Estimator: Dr Jane Yo Anesthesia: GETA Estimated Blood Loss (mL): 10 Specimen: yes Findings: thin L diaphragm plicated, L pigtail chest tube in good position on intraop CXR Signature/Cosignature/Attestation: Note Completion: I am a:Resident/Fellow Attending AttestationI was present for the entire procedure Electronic Signatures: Jane Yo) (Signed 11-Feb-2021 18:18) Authored: Post Operative Note, Note Completion Daniel Caballero) (Signed 12-Feb-2021 07:53) Authored: Note Completion Co-Signer: Post Operative Note, Note Completion Last Updated: 12-Feb-2021 07:53 by Daniel Caballero) [facility] 02-11-2021 Note History & Physical R eviewed: I have reviewed the History and Physical dated: 27-Jan-2021 History and Physical reviewed and relevant findings noted. Patient examined to review pertinent physical findings.: No significant changes Home Medications Reviewed: no changes noted Allergies Reviewed: no changes noted ERAS (Enhanced Recovery After Surgery): ERAS Patient: no Consent: COVID-19 Consent: COVID-19 Risk ConsentSurgeon has reviewed scott risks related to the risk of yariel COVID-19 and if they contract COVID-19 what the risks are. Signatures/Attestation: Note Completion: Attending Provider Inpatient Certification StatementI certify this patients need for inpatient care based on the above documentation including; the order to admit as inpatient, the anticipated length of stay, diagnosis, problem list and plan of care, and discharge plan. Electronic Signatures: Daniel Caballero) (Signed 11-Feb-2021 15:50) Authored: History & Physical Reviewed, ERAS, Consent, Note Completion Last Updated: 11-Feb-2021 15:50 by Daniel Caballero) [facility] Chief complaint Narrative - Reported An interactive audio and video telecommunication system which permits real time communications between the patient (at the originating site) and provider (at the distant site) was utilized to provide this telehealth service.Post op [address] Work Phone: Evaluation note Constitutional: Well developed, awake/alert/oriented x3, no distress, alert and cooperativeSkin: warm and dryEyes: PERRL, EOMI, clear scleraENMT: MMMHead/Neck: NCATRespiratory/Thorax: good chest expansion, thorax symmetricCardiovascular: RRRGastrointestinal: Nondistended, soft, non-tender, no rebound tenderness or guardingMusculoskeletal: moves all extremitiesExtremities: well perfusedNeurological: grossly intactPsychological: Appropriate mood and behavior [facility] History of Present illness Narrative He is status post diaphragm plication. This was done after he had failure for diaphragm pacing. He feels his breathing is better. He is having no pain.He is improving after the diaphragm plication after a 2-year attempt with diaphragm pacing. 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 He is increasing his walking. I discussed with him he can start golfing. He will obtain a chest x-ray locally in the next month. He is also welcome to come back for another chest x-ray. We discussed whether or not he wants to follow-up with a construction management assistant in our system. [address] Work Phone: Hospital Discharge instructions Call Provider If:Breathing harder than normal or having retractions. Temperature is greater than 102 degrees. Chills. Drinking less than normal. Urinating less than normal, over 1 day. Acting very sleepy and difficult to awaken. Vomiting (throwing up) and not able to eat or drink for 12 hours. Any new concerning symptoms.Follow Up Appointment 1:Physician/Dept/Service: Your PCPReason for Referral: hospital follow-upCall to Schedule in: 1 weekFollow Up Appointment 2:Physician/Dept/Service: Dr. Caballero - [facility] for Referral: hospital follow-up / diaphragm pacer removal, hemidiaphragm plicationLocation: [address] [address] Number: [phone] Form - Other Clinicians:Other Clinician Instructions: Please take your medications as directed. Please follow-up with Dr. Caballero and with your PCP as directed. You may remove dressings and shower Tuesday. No heavy lifting >20lbs or strenours activity for 3 weeks. If your symptoms return or worsen, please seek medical attention. Thank you for allowing us to participate in your care. [facility] Family History No Family History Records Found Mother Name Dates Details No pertinent family history( V49.89, Z78.9) Status:Active Mother Name Dates Details No pertinent family history( V49.89, Z78.9) Status:Active Mother Name Dates Details No pertinent family history( V49.89, Z78.9) Status:Active Unknown Family Member Name Dates Details No pertinent family history: Mother(V49.89, Z78.9) Status:Active Unknown Family Member Name Dates Details No pertinent family history: Mother(V49.89, Z78.9) Status:Active Unknown Family Member Name Dates Details No pertinent family history: Mother(V49.89, Z78.9) Status:Active Summary Purpose Advance Directives No Advanced Directives Records FoundNo Advanced Directives Records FoundNo Advanced Directives Records FoundNo Advanced Directives Records Found Additional Source Comments <item> Privacy Markings (unrecogniz ed section and content) Section Author: Wilma Sims PROHIBITION ON REDISCLOSURE OF CONFIDENTIAL INFORMATION This notice accompanies a disclosure of information concerning a client made to you with the consent of such client. (unrecognized sect ion and content) No Status Records FoundNo Status Records FoundNo Status Records FoundNo Status Records Found INFORMATION SOURCE (unrecogn ized section and content) DATE CREATED AUTHOR 04/04/2021 [employer] DATE CREATED AUTHOR AUTHOR'S ORGANIZ ATION 04/08/2021 [facility] DATE CREATED AUTHOR AUTHOR'S ORGANIZ ATION 12/31/[address] [facility] DATE CREATED AUTHOR AUTHOR'S ORGANIZ ATION 10/06/2023 [facility] FOR RECORDS PERTAINING TO PATIENTS WHO ARE OR HAVE BEEN ENROLLED IN A CHEMICAL DEPENDENCY/SUBSTANCEABUSE PROGRAM, SOME INFORMATION MAY BE OMITTED. This clinical summary was aggregated from multiple sources. Caution should be exercised in using it in the provision of clinical care. This summary normalizes information from multiple sources, and as a consequence, information in this document may materially change the coding, format and clinical context of patient data. In addition, data may be omitted in some cases. CLINICAL DECISIONS SHOULD BE BASED ON THE PRIMARY CLINICAL RECORDS. [facility] [employer] [facility]. provides no warranty or guarantee of the accuracy or completeness of information in this document.
--- OUTSIDE RECORDS SUMMARY | 2023-11-05 11:46 | XMS_ITS | CCD ---
Author Name Unknown Address [address] [place] [address] Organization [facility] Care Team Providers Care Leak Gang Supervisor Name Role Phone Chandan Cool Unavailable Unavailable Sid Ac Unavailable Unavailable Required, No Pcp Unavailable Unavailable Daniel Caballero Unavailable None, No PCP Unavailable Unavailable [facility] Primary Care Unavailable WEST, DR RADHA Gaxiola Consulting Unavailable DUNCAN ., DR LLUVIA Sheldon Attending Unavailable DUNCAN ., DR LLUVIA Sheldon Admitting Unavailable DUNCAN ., DR LLUVIA Sheldon Consulting Unavailable [facility] Primary Care Unavailable DUNCAN ., DR LLUVIA Sheldon Attending Unavailable DUNCAN ., DR LLUVIA Sheldon Consulting Unavailable DUNCAN ., DR LLUVIA Sheldon Admitting Unavailable [facility] Primary Care Unavailable DUNCAN ., DR LLUVIA Sheldon Attending Unavailable DUNCAN ., DR LLUVIA Sheldon Consulting Unavailable DUNCAN ., DR LLUVIA Sheldon Admitting Unavailable [facility] Primary Care Unavailable ANDERSEN .RAVINDER Consulting Unavailable DUNCAN ., DR LLUVIA Sheldon Admitting Unavailable DUNCAN ., DR LLUVIA Sheldon Attending Unavailable [facility] Primary Care Unavailable ANDERSEN .RAVINDER Consulting Unavailable DUNCAN ., DR LLUVIA Sheldon Admitting Unavailable DUNCAN ., DR LLUVIA Sheldon Attending Unavailable [facility] Primary Care Unavailable LAKSHMIPATHY ., NARENDRANATH Attending Nadira vailable LAKSHMIPATHY ., NARENDRANATH Admitting [facility]ailable [facility] Care Unavailable LAKSHMIPATHY ., NARENDRANATH Attending Nadira vailable LAKSHMIPATHY ., NARENDRANATH Consulting Nadira vailable LAKSHMIPATHY ., NARENDRANATH Admitting Nadira vailable [facility] Primary Care Unavailable LAKSHMIPATHY ., NARENDRANATH [...] vailable LAKSHMIPATHY ., MONIQUEATH Consulting Nadira vailable JONAHTAN NAGY Attending Unavailable JONATAHN NAGY Attending Unavailable SHAIKH JASSO Attending Unavailable [...] 17 MCG/ACT Inhalation Aerosol Solution Refills: 0 Hornell MEMEMarionJo Start : 28-Nov-2017 Active lisinopril 20 [...] by: DOMINGA FLYNN Date: 2022-12-08 10:[address] [facility] MRI SHOULDER RT WO CONon MRI [...] by: DOMINGA FLYNN Date: 2022-12-08 10:[address] [facility] XR CSPINE OBL FLEX_EXTon XR CSPINE [...] RADHA DIAZ Date: 2022-05-31 20:33 Normal [facility] Post Op (General Surgery)on 04-02-2021 Post [...] not he wants to follow-up with a cane weigher helper in our system. Provider Impressions He is [...] not he wants to follow-up with a cane weigher helper in our system. Chief Complaint An interactive [...] not he wants to follow-up with a cane weigher helper in our system. Active Problems COPD (chronic [...] MG Oral Tablet Results/Data Xray Chest 1 [id number] 04:27PMJim Faith Test NameResultFlagReference Xray Chest 1 View(Report) FINAL REPORT Interpreted by: МАРИНА MARCELO MD 02/12/21 16:52 Patient Name: RIGO JEFFERSON STUDY: CHEST 1 VIEW; 02/12/2021 4:27 pm INDICATION: chest tube removal. COMPARISON: Prior 11:07 a.m. radiograph. ACCESSION NUMBER(S): [id number] ORDERING CLINICIAN: JIM FAITH FINDINGS: Left basilar [...] Apr 02 2021 5:38PM EST (Author) Normal [facility] Admission Risk Screen - Adul ton 02-12-2021 Admission Risk Screen - Adult Allergies: Allergies: No Known Allergies: Patient Verification: New W ID Band Applied in my Departmentno Type of ID Patient is WearingW wristband, but not applied here Patient Transferred from Other Facility ([facility], [facility],etc)no Patient Identity Verified Bypatient ID Band FULL [...] AlertFor Ebola-like Symptoms: Isolate Patient and Notify Provider/Video Arcade Manager For Contact: Notify Provider/Video Arcade Manager Advance Directive: Advance Directive/DNRno (1) Advance Directive [...] Learning Preferencesverbal instruction Cultural Considerationsnone Developmental Considerationsnone Caodaism Considerationsnone Learning Assessment (Other Learner): Other learner availableno Depression Screen: During the past month, have you often been bothered by feeling down, depressed or hopelessno (1) During the past month, have you often had little interest or pleasure in doing thingsno (1) Have you had any thoughts of harming anyone elseno (1) Odem Suicide: Risk Screen Not Applicable/Able to Answerable to be screened In the Past Month: Have you wished you were or could go to sleep and not wake upno(1) In the Past Month: Have you had any actual thoughts of killing yourself no(1) Lifetime: Have you ever done, started to do, or prepared to do anything to end your lifeno(1) Odem Suicide Risknegative Adult Nutrition Screen: Have you [...] Pain (nonverbal)verbalization (more content not included)... Normal [facility] BASIC METABOLIC PANELon 02-03 Anion gap [Moles/Vol] 15 mmol/L Normal 10 - 20 [facility] Comment on above: Performed By: #### B MP #### [facility] [address] [place] [address] Calcium [Mass/Vol] 9.5 mg/dL Normal 8.6 - 10.6 [facility] Comment on above: Performed By: #### B MP #### [facility] [address] [place] [address] Chloride [Moles/Vol] 102 mmol/L Normal 98 - 107 [facility] Comment on above: Performed By: #### B MP #### [facility] [address] [place] [address] Creatinine [Mass/Vol] 0.98 mg/dL Normal 0.50 - 1.30 [facility] Comment on above: Performed By: #### B MP #### [facility] [address] [place] [address] GFR- AM. >60 Normal >60 [facility] Comment on above: Result Comment: CALC ULATIONS OF ESTIMATED GFR ARE PERFORMED USING THE MDRD STUDY EQUATION FOR THE IDMS-TRACEABLE CREATININE METHODS. CLIN CHEM 2007;53:766-72 Performed By: #### B MP #### [facility] [address] [place] [address] GFR-NON AM. >60 Normal >60 [facility] Comment on above: Performed By: #### B MP #### [facility] [address] [place] [address] Glucose [Mass/Vol] 133 mg/dL High 74 - 99 [facility] Comment on above: Performed By: #### B MP #### [facility] [address] [place] [address] HCO3 (Bld) [Moles/Vol] 24 mmol/L Normal 21 - 32 [facility] Comment on above: Performed By: #### B MP #### [facility] [address] [place] [address] Potassium [Moles/Vol] 4.3 mmol/L Normal 3.5 - 5.3 [facility] Comment on above: Performed By: #### B MP #### [facility] [address] [place] [address] Sodium [Moles/Vol] 137 mmol/L Normal 136 - 145 [facility] Comment on above: Performed By: #### B MP #### [facility] [address] [place] [address] Urea nitrogen [Mass/Vol] 17 mg/dL Normal 6 - 23 [facility] Comment on above: Performed By: #### B MP #### [facility] [address] [place] [address] CBCon 02-12-2021 Erythrocyte distribution width (RBC) [Ratio] 12.1 % Normal 11.5 - 14.5 [facility] Comment on above: Performed By: #### C BC #### [facility] [address] [place] [address] Hematocrit (Bld) [Volume fraction] 45.8 % Normal 41.0 - 52.0 [facility] Comment on above: Performed By: #### C BC #### [facility] [address] [place] [address] Hemoglobin (Bld) [Mass/Vol] 15.0 g/dL Normal 13.5 - 17.5 [facility] Comment on above: Performed By: #### C BC #### [facility] [address] [place] [address] MCHC (RBC) [Mass/Vol] 32.8 g/dL Normal 32.0 - 36.0 [facility] Comment on above: Performed By: #### C BC #### [facility] [address] [place] [address] MCV (RBC) [Entitic vol] 94 fL Normal 80 - 100 [facility] Comment on above: Performed By: #### C BC #### [facility] [address] [place] [address] NUCLEATED RBC 0.0 /100 WBC Normal 0.0-0.0 [facility] Comment on above: Performed By: #### C BC #### [facility] [address] [place] [address] Platelets (Bld) [#/Vol] 228 10*3/uL Normal 150 - 450 [facility] Comment on above: Performed By: #### C BC #### [facility] [address] [place] [address] RBC 4.85 x10E12/L Normal 4.50 - 5.90 [facility] Comment on above: Performed By: #### C BC #### [facility] [address] [place] [address] WBC (Bld) [#/Vol] 12.8 10*3/uL High 4.4 - 11.3 [facility] Comment on above: Performed By: #### C BC #### [facility] [address] [place] [address] Clinical Event Note-POCon Clinical Event Note-POC Clinical [...] 00:41 by Nataliia Ferris ( (Resident)) Normal [facility] Daily Progress Note-Surgeryo n 02-12-2021 Daily [...] yet. Objective Data: Objective Information: T PRBPSpO2 Value35.93113961/8695% Date/Time02/12 6:4902/12 6:4902/12 6:4902/12 6:4902/12 6:49 Range(35.4C - 36.4C ) (77 - 99 ) (17 - 18 ) (127 - 147 )/ (86 - 91 ) (95% - 96% ) Pain reported at 02/12 2:54: 6 = Moderate ---- Intake and Output ----- Mn/Dy/Year TimeIntakeOutputNet Feb 12, 2021 6:00 [id number] Feb 11, 2021 10:00 [id number] The Intake and Output Totals for the last 24 hours are: IntakeOutputNet [id number] Physical Exam by System: Constitutional: Well developed, [...] Last Updated: 13-Feb-2021 10:13 by Daniel Caballero) [facility] Discharge Planning Yeyy2yl 0 02-12-2021 Discharge Planning Note2 Discharge Planning: Needs Prior to Discharge (ex. Home Care Orders, IV/O2 prescriptions) Follow up appointments Discharge Barriers (ex. Avoidable days, wait guardianship, pt refuse leave) None Planned Dispositionhome Discharge DestinationHome [facility] [place] of Choice Explainedyes preference Anticipated Discharge [id number] Discharge Planning 02/12/2021 0135 Discharge Plan Patient transferred from [place] [address] from PACU for diaphragm plication. Pt is A&O times 4. at 3 liters oxygen. Pt denies any er medical technician use at home. Pt emergency account contact associate Sahil Joe- son. Pt have valuable belongings [...] disposition: Home Potential Barriers: none ADOD: 02/12. accounts receivable coordinator will continue to follow for discharge planning needs. Franny Gilliam RN, Transitional Director Operating Room/TCC, pager [phone] Discharge note: 02/12/21 @ 1735: PT discharged home at this time. pts peripheral IV taken out prior to DC. pt given DC instructions. pt verbalized understanding. pt refused transport and walked downstairs with his son.---Erika stock RN Assessment: Discharge Planning Assessment [id number] Primary Contact Name and NumberAdam [phone](1) Stated Reason for Admissiondiaphragm plication(2) Arrived FromOR (2) Lives Withparent(s)(2) Living Arrangementshouse(2) Resource/Environmental Concernsnone(2) [facility] Services Anticipated at Transitionnone(2) Discharge Documentation: Discharge/Transfer Date/[id number]-8682 17:35 Discharge Modeambulatory Discharged Accompanied Byfamily member [...] Profile - Adult v2 12-Feb-2021 01:31 Normal [facility] Discharge [id number] 021 Discharge Profile2 Discharge Orders: Anticipated Discharge Date: Anticipated Discharge [id number] DNAR: DNAR Status: none Call Provider If [...] hemidiaphragm plication Call to Schedule in2 weeks [id number] Hilario Crawford [address] Phone [phone] Other Clinician Instructions: Other Instructions: Other Clinician [...] Appointments, Other Clinician Instructions, Gold Form - Inspector And Clipper Summary Last Updated: 12-Feb-2021 15:27 by Jim Faith ( (Resident)) Normal [facility] Laboratory - Chemistry and C hemistry - challengeon 02-12-2021 Anion gap [Moles/Vol] 15 mmol/L 10 - 20 MV-Wtbrpmy-[address] Work Phone: Calcium [Mass/Vol] 9.5 mg/dL 8.6 - 10.6 MG-Tino raysa-G [address] Work Phone: Chloride [Moles/Vol] 102 mmol/L 98 - 107 IR-Nvubevl-Y [address] Work Phone: CO2 [Moles/Vol] 24 mmol/L 21 - 32 MG-Surger y-G re[facility] Work Phone: Creatinine [Mass/Vol] 0.98 mg/dL See Below MZ-Elfgtoy-N [address] Work Phone: Comment on above: Reference Range: 0.5 0 - 1.30 Glucose [Mass/Vol] 133 mg/dL above high threshold 74 - 99 WP[facility]dpggif[facility] Work Phone: Potassium [Moles/Vol] 4.3 mmol/L 3.5 - 5.3 TS-Summsds[facility] [facility] [address] Work Phone: Sodium [Moles/Vol] 137 mmol/L 136 - 145 MG-Tino raysa-[facility] Work Phone: Urea nitrogen [Mass/Vol] 17 mg/dL 6 - 23 QJ-Ezfagkr[facility] [address] Work Phone: Laboratory - Hematology and Cell countson 02-12-2021 Erythrocyte distribution width (RBC) [Ratio] 12.1 % See Below PB-Jzmfjnc[facility] [address] Work Phone: Comment on above: Reference Range: 11. 5 - 14.5 Hematocrit (Bld) [Volume fraction] 45.8 % See Below SZ-Bmqriuc-J [address] Work Phone: Comment on above: Reference Range: 41. 0 - 52.0 Hemoglobin (Bld) [Mass/Vol] 15.0 g/dL See Below OK-Smfraku-C [address] Work Phone: Comment on above: Reference Range: 13. 5 - 17.5 MCHC (RBC) [Mass/Vol] 32.8 g/dL See Below QX-Ljtrirq-R [address] Work Phone: Comment on above: Reference Range: 32. 0 - 36.0 MCV (RBC) [Entitic vol] 94 fL 80 - 100 DN-Tkqggmm-G [address] Work Phone: Platelets (Bld) [#/Vol] 228 10*3/uL 150 - 450 LQ-Ntrjjrj-U [address] Work Phone: RBC (Bld) [#/Vol] 4.85 {x10E12/L} See Below MG -Surgery-[facility] Work Phone: Comment on above: Reference Range: 4.5 0 - 5.90 WBC (Bld) [#/Vol] 12.8 10*3/uL above high threshold 4.4 - 11.3 RE-Puusbkc-W [facility] Work Phone: No Panel Informationon 02-12 >60 >60 YI-Ikkdfuz-Y [place] [address] Work Phone: Comment on above: CALCULATIONS OF LANRE MATED GFR ARE PERFORMED USING THE MDRD STUDY EQUATION FOR THE IDMS-TRACEABLE CREATININE METHODS. CLIN CHEM 2007;53:766-72 0.0 {/100_WBC} 0.0-0.0 MG-Surgery -G [place] [address] Work Phone: Order Reconciliationon 02-12 Order Reconciliation [...] tab(s) orally 2 times a day Normal [facility] Patient Profile - Adult v2on 02-12-2021 Patient Profile - Adult v2 Profile: Initial Info: How to be AddressedDel(1) Spoken Language PreferredEnglish (1) Stated Reason for Admissiondiaphragm plication Patient Belongingsremains with patient Patient Belongings Remaining with Patientcash/credit card; clothing Arrived FromOR Medications Brought to Hospitalno Are you currently using the Personal Electronic Health Record or Appearno (1) Wants Family/Rep Notified of Admissionyes, primary contact Notify PCPnotify PCP Informed of Patient Visiting Rightsyes General Health: Blood Avoidance/Restrictionsnone (1) Previous Transfusion Reactionno(2) Weight in kg109.8 kilogram(s)(3) Weight in unt391 pound(s) Weight Methodactual (measured) (3) Scale Typestanding [...] From 1. Vital Signs 11-Feb-2021 12:02 Normal [facility] Radiologyon 02-12-2021 XR Chest Single view Normal PR-Qrfdnqp-K [address] Work Phone: XR Chest Single view Normal VN-Niqxyll-O [address] Work Phone: XR Chest Single view Normal ZK-Jehoznc-L [address] Work Phone: TH CHEST 1 VIEWon 02-12-2021 TH CHEST 1 VIEW Patient Name: RIGO JEFFERSON STUDY: CHEST 1 VIEW; 02/12/2021 4:27 pm INDICATION: chest tube removal. COMPARISON: Prior 11:07 a.m. radiograph. ACCESSION NUMBER(S): [id number] ORDERING CLINICIAN: JIM FAITH FINDINGS: Left basilar [...] Electronically signed by: МАРИНА MARCELO MD Normal [facility] TH CHEST 1 VIEW Patient Name: RIGO JEFFERSON STUDY: CHEST 1 VIEW; 02/12/2021 11:58 am INDICATION: chest tube wet seal. COMPARISON: 7:02 a.m. radiograph. ACCESSION NUMBER(S): [id number] ORDERING CLINICIAN: JIM FAITH FINDINGS: Left basilar [...] s/p diaphragm plication. COMPARISON: 02/11/2021. ACCESSION NUMBER(S): [id number] ORDERING CLINICIAN: JANE YO FINDINGS: Left basilar [...] Electronically signed by: МАРИНА MARCELO MD Normal [facility] No Panel Informationon 02-11 [place] [address] Work Phone: [facility] [place] [address] Patient Name: RIGO JEFFERSON : 1960 Date of Service: 02/11/2021 Patient Location: [place] [address] Patient Type: I Surgeon: Daniel Caballero MD Report Type: Operative Reports PREOPERATIVE DIAGNOSIS: Chronic respiratory failure, left diaphragm dysfunction. POSTOPERATIVE DIAGNOSIS: Chronic respiratory failure, left diaphragm dysfunction. OPERATION/PROCEDURE: Laparoscopic left diaphragm plication with removal of previous diaphragm pacing wires. SURGEON: Daniel Caballero MD RELEASE ENGINEER(S): Jane Yo MD. There was no available resident. ANESTHESIA: LOCATION: [facility]. CLINICAL NOTE: This is a [...] TT: 02/12/2021 12:44 PM EST DICTATION NUMBER: [id number] BRIE JOB NUMBER: [id number] CC: PT STATES NONE PCP Electronic Signatures: Daniel Caballero) (Signed on 13-Feb-2021 10:15) Authored Unsigned, Draft (SYS GENERATED) (Entered on 12-Feb-2021 12:44) Entered Last Updated: 13-Feb-2021 10:15 by Daniel Caballero) Normal [facility] Order Reconciliationon 02-11 Order Reconciliation Page 1 Admission Reconciliation Document Reconciliation Type: Admission from OR requested on behalf of Jane Yo (Physician) done by Jane Yo) Admission from OR - Reconciliation: 11-Feb-2021 18:31 by: Jane Yo) Home MedicationsEnteredLast Dose TakenReconciled with current Order Reconciliation Comment/ Additional Information Kristina 24 Hour Allergy oral tablet 1 tab(s) orally once a [id number]-Wer-121411-Feb-2021 AM Reviewed and Held clarithromycin 250 mg oral tablet 250 milligram(s) orally once a day [id number] Clarithromycin Tablet (BIAXIN)DOSE = 250 mg Oral Every 24 Hoursclarithromycin 250 mg oral tablet continued as the inpatient order Clarithromycin diclofenac sodium 50 mg oral delayed release tablet 1 tab(s) orally 2 times a str03-[id number]-Jma-0979 AM Reviewed and Held oxycodone-acetaminophen 5 mg-300 mg oral tablet 1 tab(s) orally 2 times a day [id number] AM Reviewed and Held Additional Current Orders [...] 15 minute(s)Clinician Notes: Carlota-operative order ONLY Normal [facility] Patient Profile - Preop v2on 02-11-2021 Patient Profile - Preop v2 Profile: Initial Info: How to be AddressedDel(1) Spoken Language PreferredEnglish (1) Source of Informationpatient Are you currently using the Personal Electronic Health Record or Appearno (1) Are you interested in learning more about [employer] for the management of your healthnot at this time Stated Reason for AdmissionL pulling of wires/pulling lung down Primary Contact Name and NumberAdam [phone] Patient Belongingspatient educated regarding responsibility for personal items Medications Brought to Hospitalno General Health: Weight in kg109.8 kilogram(s) Weight in uyu509 pound(s) Weight Methodactual (measured) Scale Typestanding Height [...] Learning Preferencesverbal instruction Cultural Considerationsnone Developmental Considerationsnone Caodaism Considerationsnone Other learner availableno Falls RiskPatient location auto qualifies him/her for HIGH RISK. Are there any cultural, spiritual, mormonism practices/values/needs that are important for us to [...] Profile - Adult v2 12-Dec-2017 16:00 Normal [facility] Preop Checkliston 02-11-2021 Preop Checklist Preop Checklist: Preop Checklist: Arrival [id number] Arrival Time11:48 Procedure TypeL laparoscopic diaphragm plication Temperature C36.1 degrees C Temperature F96.9 degrees F Heart Rate70 beats per minute Respiratory Rate12 breath per minute Blood Pressure Xadhqgim193 mm/Hg Blood Pressure Hlqdffcml92 mm/Hg NPO Kmpdeo86-Plq-2320 00:00 ID Band Onyes Allergy Bandno known [...] 11-Feb-2021 12:02 by Jany Ann (RN) Normal [facility] Radiologyon 02-11-2021 XR Chest Single view Please click on the link to view the study images Normal [place] [address] Work Phone: [facility] Surgical Pathology Depar tmenton 02-11-2021 [facility] Surgical Pathology Department Name RIGO JEFFERSON Pathologist: JACINTO MURRIETA MD Date of Procedure: 02/11/2021 Date Received: 02/12/2021 Date Reported 02/19/2021 Submitting Physician: DANIEL CABALLERO M.D. Location: [facility] Copy To/Referring/Attending: DANIEL CABALLERO M.D. Other [...] this case. Clinical History: Physician Contact Number: [id number] Fixative (A): Fresh Clinical Diagnosis History: disorders of diaphragm Specimens Submitted As: A: PACING WIRE Gross Description: Received in formalin, labeled with the patient's name and hospital number, are multiple wires with a piece of adipose tissue attached measuring 3.0 x 1.6 x 1.0 cm. A photograph is taken. The attached soft tissue is submitted entirely in one cassette. EXB exb/02/12/2021 [facility] Department of Pathology [id number] [place] [address] Normal [facility] Comment on above: Performed By: #### U HCS ####[facility] Surgical Pathology [address] [place] [address] CORONAVIRUS 2019, SCREEN ASY MPTOMATICon 02-10-2021 SARS-CoV-2 (COVID-19) RNA BECCA+probe Ql (Unsp spec) Not detected Normal Not Detected [facility] Comment on above: Result Comment: . [...] patient management decisions. Fact sheet for providers: https://www.fda.gov/media/008388/download Fact sheet for patients: https://www.fda.gov/media/276142/download This test has received FDA Emergency Use Authorization (EUA) and has been verified by [facility] ([facility]). This test is only authorized for the duration of time that circumstances exist to justify the authorization of the emergency use of in vitro diagnostic tests for the detection of SARS-CoV-2 virus and/or diagnosis of COVID-19 infection under section 564(b)(1) of the Act, 21 U.S.C. 360bbb-3(b)(1), unless the authorization is terminated or revoked sooner. [facility] is certified under CLIA-88 as qualified to perform high complexity testing. Testing is performed in the [facility] laboratories located at [address] [place] [address]. Performed By: #### C OVSC #### [place] [address] Covid 19 Resultson SARS-CoV-2 (COVID-19) RNA BECCA+probe [...] You may also be contacted by the [facility] to see if any of your close [...] or Naproxen (Aleve) can also be used. Yzvq-yes-nlqiuzg cough and cold medicines can be used according to the instructions on the package. Some gclr-srs-xritcxn medicines also contain acetaminophen. Make sure you [...] water are not available, use alcohol-based hand glass beveler. Avoid touching your eyes, nose, and mouth [...] 24 alem (more content not included)... Normal [facility] CORONAVIRUS 2019, SCREEN ASY MPTOMATICon 02-09-2021 Lab Specimen Source Nasal, Nasopharyngeal Normal [facility] Comment on above: Performed By: #### C OVSC #### [facility] [address] [place] [address] Coronavirus 2019 RNA by PCR, Screening Asymptomticon 02-09-2021 Coronavirus 2019 RNA by PCR, Screening Asymptomtic Not detected Normal See Below EZ-Mfpxwnf[facility] [facility] [address] Work Phone: Comment on [...] make patient management decisions.Fact sheet for providers: https://www.fda.gov/media/254857/downloadFact sheet for patients: https://www.fda.gov/media/224548/downloadThis test has received FDA Emergency Use Authorization (EUA) and has been verified by [facility] ([facility]). This test is only authorized for the duration of time that circumstances exist to justify the authorization of the emergency use of in vitro diagnostic tests for the detection of SARS-CoV-2 virus and/or diagnosis of COVID-19 infection under section 564(b)(1) of the Act, 21 U.S.C. 360bbb-3(b)(1), unless the authorization is terminated or revoked sooner. [facility] is certified under CLIA-88 as qualified to perform high complexity testing. Testing is performed in the [facility] laboratories located at [address] [place] [address]. BASIC METABOLIC PANELon 05-2 Anion gap [Moles/Vol] 13 mmol/L Normal 10 - 20 [facility] Comment on above: Performed By: #### B MP ####[id number] [place] [address] Calcium [Mass/Vol] 9.7 mg/dL Normal 8.6 - 10.6 [facility] Comment on above: Performed By: #### B MP ####[id number] [place] [address] Chloride [Moles/Vol] 108 mmol/L High 98 - 107 [facility] Comment on above: Performed By: #### B MP ####[id number] [place] [address] Creatinine [Mass/Vol] 1.04 mg/dL Normal 0.50 - 1.30 [facility] Comment on above: Performed By: #### B MP ####[id number] [place] [address] GFR- AM. >60 Normal >60 [facility] Comment on above: Result Comment: CALC ULATIONS OF ESTIMATED GFR ARE PERFORMED USING THE MDRD STUDY EQUATION FOR THE IDMS-TRACEABLE CREATININE METHODS. CLIN CHEM 2007;53:766-72 Performed By: #### B MP ####[id number] [place] [address] GFR-NON AM. >60 Normal >60 [facility] Comment on above: Performed By: #### B MP ####[id number] [place] [address] Glucose [Mass/Vol] 91 mg/dL Normal 74 - 99 [facility] Comment on above: Performed By: #### B MP ####[id number] [place] [address] HCO3 (Bld) [Moles/Vol] 29 mmol/L Normal 21 - 32 [facility] Comment on above: Performed By: #### B MP ####[id number] [place] [address] Potassium [Moles/Vol] 4.6 mmol/L Normal 3.5 - 5.3 [facility] Comment on above: Performed By: #### B MP ####[id number] [place] [address] Sodium [Moles/Vol] 145 mmol/L Normal 136 - 145 [facility] Comment on above: Performed By: #### B MP ####[id number] [place] [address] Urea nitrogen [Mass/Vol] 13 mg/dL Normal 6 - 23 [facility] Comment on above: Performed By: #### B MP ####[id number] [place] [address] CBCon 01-27-2021 Erythrocyte distribution width (RBC) [Ratio] 12.2 % Normal 11.5 - 14.5 [facility] Comment on above: Performed By: #### C BC ####[id number] [place] [address] Hematocrit (Bld) [Volume fraction] 46.7 % Normal 41.0 - 52.0 [facility] Comment on above: Performed By: #### C BC ####[id number] [place] [address] Hemoglobin (Bld) [Mass/Vol] 15.1 g/dL Normal 13.5 - 17.5 [facility] Comment on above: Performed By: #### C BC ####[id number] [place] [address] MCHC (RBC) [Mass/Vol] 32.3 g/dL Normal 32.0 - 36.0 [facility] Comment on above: Performed By: #### C BC ####[id number] [place] [address] MCV (RBC) [Entitic vol] 96 fL Normal 80 - 100 [facility] Comment on above: Performed By: #### C BC ####[id number] [place] [address] NUCLEATED RBC 0.0 /100 WBC Normal 0.0-0.0 [facility] Comment on above: Performed By: #### C BC ####[id number] [place] [address] Platelets (Bld) [#/Vol] 209 10*3/uL Normal 150 - 450 [facility] Comment on above: Performed By: #### C BC ####[id number] [place] [address] RBC 4.85 x10E12/L Normal 4.50 - 5.90 [facility] Comment on above: Performed By: #### C BC ####[id number] [place] [address] WBC (Bld) [#/Vol] 7.2 10*3/uL Normal 4.4 - 11.3 [facility] Comment on above: Performed By: #### C BC ####[id number] [place] [address] Follow Up (General Surgery)o n 01-27-2021 Follow [...] EKG; Status:Hold For - Scheduling; Requested for:27Jan2021; Perform:[facility] [place] [address]; Due:27Apr2021;Ordered; For:Diaphragm dysfunction, HTN [...] 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 He was turning the device off 1-2 [...] MG Oral Tablet Vitals Vital Signs Recorded: 64Hby3500 11:12AM Kpnjrrjqqlu96.1 F Heart Rate77 Cylqeowo803 Psmhrwywa56 Ljavfd448 lb BMI Nvqhqzstcr38.64 kg/m2 BSA Calculated2.33 Tobacco Useb) No Physical [...] the r (more content not included)... Normal FAZUA No Panel Informationon 01-27 [email or web address] 1:8080 /[email or web address]?R etrieveTestByDateTime?Sherita vkjPX=[id number]&Date=&Time=13%3a24%3a34%3a 00&TestType=ECG&Site=1&Out putType=PDF&Ext=PDF NQ-Hyrgckk-[address] Work Phone: Normal sinus rhythm MG-Ramos rgery-[address] Work Phone: [phone] Normal NZ-Geynqpo-[address] Work Phone: [phone] 1 KI-Bcdlmpk-[address] Work Phone: [phone] 1 IC-Cohitac-[address] Work Phone: [phone] 1 IP-Dxkovve-[address] Work Phone: [phone] 1 KR-Vaxtpqn-[address] Work Phone: [phone] 1 TZ-Jrjkcwp-[address] Work Phone: [phone] 1 EM-Uyhmryd-[address] Work Phone: [phone] 1 ZI-Qzspgel-[address] Work Phone: [phone] 1 TL-Vruvenb-[address] Work Phone: [phone] 1 QO-Zpvjgmc-[address] Work Phone: [phone] 1 BD-Kjhxqlm-[address] Work Phone: [phone] 1 AP-Njxioqy-[address] Work Phone: [phone] 1 EC-Ysdieiu-[address] Work Phone: [phone] 1 UP-Mlwtycp-[address] Work Phone: [phone] 1 YP-Huvwxqw-[address] Work Phone: Radiologyon 01-27-2021 XR Chest 2 Views Normal MG-Surge ry-[address] Work Phone: TH CHEST 2 VIEW PA AND LATon 01-27-2021 TH CHEST 2 VIEW PA AND LAT Patient Name: RIGO JEFFERSON STUDY: TH CHEST 2 VIEW PA AND LAT; 01/27/2021 11:00 am INDICATION: chronic hypoventilation. COMPARISON: Chest radiograph 04/03/2019 ACCESSION NUMBER(S): [id number] ORDERING CLINICIAN: DANIEL CABALLERO FINDINGS: Inspiratory and [...] Electronically signed by: ANGI CAICEDO MD Normal [facility] Tobacco Screening.on 021 Tobacco use status [facility] b) No AE-Zqqlpic-[address] Work Phone: Tobacco Screening. b) No MG-Tino raysa-[address] Work Phone: Otheron 04-03-2019 XR Chest 2 views Interpreted by: ISAK04/03/19 14:06MRN: [id number] Name: RIGO JEFFERSON STUDY:CHEST 2 VIEW PA [...] Electronically signed by: ISAK 04/03/19 14:06 Normal GL-Akxsbor-[address] Work Phone: Vital Signs Date Time Vital Sign Value Performing Clinician Facility 02-12-2021 14:10-0400 SaO2% (BldA) [Mass fraction] 95 % No Pcp Required [facility] 02-12-2021 14:00-0400 Body temperature 97.16 [degF] No Pcp Required [facility] 02-12-2021 14:00-0400 Diastolic blood pressure 83 mm[Hg] No Pcp Required [facility] 02-12-2021 14:00-0400 Heart rate 81 /min No Pcp Required [facility] 02-12-2021 14:00-0400 Respiratory rate 18 /min No Pcp Required [facility] 02-12-2021 14:00-0400 Systolic blood pressure 131 mm[Hg] No Pcp Required [facility] 02-12-2021 03:31-0400 Body height 182.8 cm No Pcp Required [facility] 02-12-2021 03:31-0400 Body weight 109.8 kg No Pcp Required [facility] 01-27-2021 11:12-0400 Body mass index (BMI) [Ratio] 33.64 kg/m2 Daniel Caballero MD Work Phone: LO-[address]we[address] Work Phone: 01-27-2021 11:12-0400 Body surface area Derived from formula 2.33 m2 Daniel Caballero MD Work Phone: GS-Zrogfgi-[address] Work Phone: 01-27-2021 11:12-0400 Body temperature 96.1 [degF] Daniel Caballero MD Work Phone: MC-Bkdryki-[address] Work Phone: 01-27-2021 11:12-0400 Body weight 112.49 kg Daniel Caballero MD Work Phone: BJ-Gyncwtb-[address] Work Phone: 01-27-2021 11:12-0400 Diastolic blood pressure 85 mm[Hg] Daniel Caballero MD Work Phone: LN-[address]ou[address] Work Phone: 01-27-2021 11:12-0400 Heart rate 77 /min Daniel Caballero MD Work Phone: PZ-Jcxkmnd-[address] Work Phone: 01-27-2021 11:12-0400 Systolic blood pressure 157 mm[Hg] Daniel Caballero MD Work Phone: VW-Goun[address] Work Phone: 04-03-2019 15:37-0400 BMI (Body Mass Index) 30.11 kg/m2 Chandan Hornell [facility]-Surgery -[place] [address] Work Phone: 04-03-2019 15:37-0400 Body Temperature 97.9 [degF] Chandan Travon VI-Ydwjgbf-[address] Work Phone: 04-03-2019 15:37-0400 Body weight 100.7 kg Chandan Travon BI-Xaqxwll-Nhjym ll 2099 Work Phone: 04-03-2019 15:37-0400 BP Diastolic 74 mm[Hg] Chandan Travon JS-Bbmqwyq-Yqnqm ll 2099 Work Phone: 04-03-2019 15:37-0400 BP Systolic 121 mm[Hg] Chandan Travon DX-Fbaeefz-Hiiad ll 2099 Work Phone: 04-03-2019 15:37-0400 BSA (Body Surface Area) 2.23 m2 Chandan Hornell QY-Rpfkoat-[address]99 Work Phone: 04-03-2019 15:37-0400 Height 182.88 cm Chandan Travon WP-Bacjfeq-Dxeyj ll 2099 Work Phone: 04-03-2019 15:37-0400 Pulse (Heart Rate) 58 /min Chandan Cool FA-Kddinoz-[address] Work Phone: Encounters Encounter Date [...] related to original px No PCP None WL-[address] Work Phone: Start: 02-20-2021 Chart Update No PCP None [facility]-Surgery [address] Work Phone: Start: 02-11-2021 End: 02-12-2021 Evaluation and management of inpatient Daniel Caballero [facility] Lks[address] 55 Rm 5511 01 Start: 01-27-2021 Chart Update Daniel Caballero MD Work Phone: ZU-Rfpqkdo-[address] Work Phone: Start: 04-03-2019 Patient encounter procedure Chandan Cool WC-Nkyajgw-Xuy[address] 2[address] Work Phone: Start: 01-12-2018 Patient encounter procedure Chandan Cool IV-Wlmfymm-[address] Work Phone: Start: 11-28-2017 Patient encounter procedure Chandan Cool IH-Uqltshx-[address] Work Phone: Start: 11-28-2017 Patient encounter procedure Chandan Cool AP-Gaoayhq-[address] Work Phone: Procedures Date Procedure [...] End: 11-Feb-2022 Ordered: 11-Feb-2021 Jane Yo Intent [facility] Payers Date Payer Category Payer Unknown [id number] 2018 Unknown 1960 Medicare [id number] 1960 Unknown [id number] 2.16.84 [id number] 1959 Unknown [id number] 2.16.84 0.1.491387.3.579.2.593 1959 Unknown [id number] 2.16.84 0.1.451871.3.579.2.593 1959 Unknown [id number] 2.16.84 0.1.795449.3.579.2.593 1959 Unknown [id number] 2.16.84 0.1.018300.3.579.2.593 1959 Unknown [id number] 2.16.84 0.1.624269.3.579.2.593 1959 Unknown [id number] 2.16.84 0.1.140794.3.579.2.593 1959 Unknown [id number] 2.16.84 0.1.105923.3.579.2.593 1959 Unknown [id number] 2.16.84 0.1.460644.3.579.2.593 1959 Unknown [id number] 2.16.84 0.1.468700.3.579.2.593 1959 Unknown [id number] 2.16.84 0.1.803808.3.579.2.1259 1959 Unknown [id number] 2.16.84 0.1.673255.3.579.2.1259 1959 Unknown [id number] 2.16.840 .1.302308.3.579.2.1259 Social History Date Type Detail Facility Former smoker Former smoker IF-Rubiixd[address] Work Phone: Tobacco smoking consumption unknown [facility] NEGATED: Highlighted row - - MG- Surgery-[address] Work Phone: Functional Status Date Assessment Result Facility Functional observable [facility] NEGATED: Highlighted row Functional performance Functional status health issues are not documented Disease RZ-Fcdrxjf-[address] Work Phone: Mental Status Date Assessment Result Facility 02-12-2021 Cognitive functi ons [id number] [facility] NEGATED: Highlighted row Cognitive function [Interpretation] Cognitive status health issues are not documented Disease FJ-Nxhdkhz-[address] Work Phone: Clinical Notes 02-11-2021 [...] our patients to inform us about any pbgn-oho-whosaus medications or herbal remedies/nutritional supplements/alternative remedies. 2. [...] options with their primary care provider. [facility] 11-25-2022 Note CONSULTATION CONSULTATION DATE: 11/25/2022 [...] of his shoulders, bilaterally, without contrast. [facility] 09-03-2022 Note CONSULTATION CONSULTATION DATE: 09/03/2022 [...] three months' time, unless otherwise indicated. [facility] 06-01-2022 Note CONSULTATION CONSULTATION DATE: 06/01/2022 [...] b.i.d. basis. The patient also uses the VicTexifter heat rub to his cervical spine. The [...] in three months. CC: Shaikh Helena M.D. [facility] 05-18-2022 Note CONSULTATION CONSULTATION DATE: 05/18/2022 [...] to proceed. CC: Shaikh Helena M.D. [facility] 05-18-2022 Note CONSULTATION PROCEDURE DATE: 05/18/2022 [...] be followed up in the office. [facility] 04-29-2022 Note CONSULTATION CONSULTATION DATE: 04/29/2022 [...] for his injections with Dr. Duncan. [facility] 01-27-2022 Note CONSULTATION CONSULTATION DATE: 01/27/2022 [...] in three month's time, unless otherwise indicated. [facility] Signed and Approved by: RAVINDER ANDERSEN . 02/04/2022 16:12:[address] [facility] 02-12-2021 Note Send Summary: Discharge Summary [...] at Discharge: .Home Vital Signs: T PRBPSpO2 Value36.43238999/8395% Date/Time02/12 12: 12: 12: 12: 12:10 Range(35.4C - 36.4C ) (77 - 99 ) (17 - 18 ) (127 - 147 )/ (83 - 91 ) (92% - 96% ) As of 12-Feb-2021 12:10:00, patient is on 2 L/min of oxygen Date: Weight/Scale Type:Height: 12-Feb-2021 01:83129.8 kg / .8 cm Hospital Course: 60 yo male with [...] Call to Schedule in: 2 weeks Location: [address] [place] [address] Discharge Medications: Home Medication clarithromycin 250 mg [...] Last Updated: 13-Feb-2021 10:13 by Daniel Caballero) [facility] 02-11-2021 Note Post Operative Note: PreOp Diagnosis: diaphragm paralysis Post-Procedure Diagnosis: same Procedure: 1. laparoscopic L diaphragm plication 2. removal of bilateral diaphragm pacing wires 3. L pigtail chest tube placement Surgeon: Dr Daniel Caballero Resident/Fellow/Other Net Mvc Developer: Dr Jane Yo Anesthesia: GETA Estimated Blood [...] Last Updated: 12-Feb-2021 07:53 by Daniel Caballero) [facility] 02-11-2021 Note History & Physical R [...] Last Updated: 11-Feb-2021 15:50 by Daniel Caballero) [facility] Chief complaint Narrative - Reported An interactive audio and video telecommunication system which permits real time communications between the patient (at the originating site) and provider (at the distant site) was utilized to provide this telehealth service.Post op [address] Work Phone: Evaluation note Constitutional: Well developed, awake/alert/oriented x3, no distress, alert and cooperativeSkin: warm and dryEyes: PERRL, EOMI, clear scleraENMT: MMMHead/Neck: NCATRespiratory/Thorax: good chest expansion, thorax symmetricCardiovascular: RRRGastrointestinal: Nondistended, soft, non-tender, no rebound tenderness or guardingMusculoskeletal: moves all extremitiesExtremities: well perfusedNeurological: grossly intactPsychological: Appropriate mood and behavior [facility] History of Present illness Narrative He [...] not he wants to follow-up with a cane weigher helper in our system. QL-[address]cqzy[address]v-[address] Work Phone: Hospital Discharge instructions [...] weekFollow Up Appointment 2:Physician/Dept/Service: Dr. Caballero - [facility] for Referral: hospital follow-up / diaphragm pacer removal, hemidiaphragm plicationLocation: [address] [address] Number: [phone] Form - Other Clinicians:Other Clinician Instructions: Please take your medications as directed. Please follow-up with Dr. Caballero and with your PCP as directed. You may remove dressings and shower Tuesday. No heavy lifting >20lbs or strenours activity for 3 weeks. If your symptoms return or worsen, please seek medical attention. Thank you for allowing us to participate in your care. [facility] Family History No Family History Records [...] section and content) DATE CREATED AUTHOR 04/04/2021 [facility] DATE CREATED AUTHOR AUTHOR'S ORGANIZ ATION 04/08/2021 [facility] DATE CREATED AUTHOR AUTHOR'S ORGANIZ ATION 12/31/2022 [facility] DATE CREATED AUTHOR AUTHOR'S ORGANIZ ATION 10/06/2023 [facility] dical Specialists [facility] FOR RECORDS PERTAINING TO PATIENTS WHO ARE [...] BE BASED ON THE PRIMARY CLINICAL RECORDS. [facility] [employer] [facility]. provides no warranty or guarantee of the accuracy or completeness of information in this document.
[2023-11-05 11:58] LABS: Basophils Absolute Auto 0.1 10^3/uL (0.0-0.1); Basophils Percent Auto 0.9 % (0.2-2.0); Eosinophils Absolute Auto 0.3 10^3/uL (0.0-0.7); Eosinophils Percent Auto 3.3 % (0.9-7.0); Hemoglobin 16.1 g/dL (14.0-18.0); Immature Granulocytes Abs Auto 0.03 10^3/uL (0.00-0.03); Immature Granulocytes Pct Auto 0.4 % (0.0-0.5); Lymphocytes Absolute Auto 2.4 10^3/uL (1.2-3.8); Lymphocytes Percent Auto 27.8 % (20.5-60.0); Mean Corpuscular HGB Conc 32.9 g/dL (29.9-35.2); Mean Corpuscular Hemoglobin 30.1 pg (25.9-34.0); Mean Corpuscular Volume 91.6 fL (80.0-94.0); Mean Platelet Volume 9.6 fL (9.5-13.5); Monocytes Absolute Auto 0.8 10^3/uL (0.3-0.8); Neutrophils Percent Auto 58.6 % (43.0-75.0); Platelet Count 242 10^3/uL (150-450); Red Blood Count 5.35 10^6/uL (4.70-6.10); Red Cell Distribution Width 12.7 % (11.0-15.0); White Blood Count 8.6 10^3/uL (4.0-11.0)
[2023-11-05 12:17] LABS: Alanine Aminotransferase 21 U/L (16-63); Albumin Level 3.5 g/dL (3.4-5.0); Alkaline Phosphatase 101 U/L (46-116); Anion Gap 12.6; Aspartate Amino Transferase 15 U/L (15-37); BUN Creatinine Ratio 10.3; Bilirubin Total 0.3 mg/dL (0.2-1.0); Calcium 9.1 mg/dL (8.5-10.1); Carbon Dioxide 27.8 mmol/L (21.0-32.0); Chloride 105 mmol/L (98-107); Chol HDL Ratio 3.2; Cholesterol 177 mg/dL (<=200); Estimated GFR (African America >60 (>=60); Estimated GFR (Non-African Ame >60 (>=60); Globulin 3.6 g/dL; Glucose 111 mg/dL (74-106); HDL Cholesterol 56 mg/dL (40-60); LDL Cholesterol Calculated 108.8 mg/dL; Potassium 4.4 mmol/L (3.5-5.1); Sodium 141 mmol/L (136-145); Total Protein 7.1 g/dL (6.4-8.2); Triglycerides 61 mg/dL (<=150); VLDL CHOLESTEROL 12.2 mg/dL
== END 2023-11-05 11:44 | disposition home or self-care (01) ==
LOC: LAB 11:43
PROVIDERS: PCP Internal Medicine; Visit Provider Internal Medicine
DX: E23.0 Hypopituitarism (principal); R68.82 Decreased libido; I10 Essential (primary) hypertension; E78.5 Hyperlipidemia, unspecified
CPT/HCPCS: 36415; 80053; 80061; 82728; 84153; 84270; 84403; 85025

== ENCOUNTER 2023-11-24 10:40 | Outpatient (OUT) | payer OTHER, SELFPAY ==
--- OUTSIDE RECORDS SUMMARY | 2023-11-24 10:44 | XMS_ITS | CCD ---
Author Organization [facility] Care Team Providers Care Cad Administrator Name Role Phone Chandan Cool Unavailable Unavailable Sid Ac Unavailable Unavailable Required, No Pcp Unavailable Unavailable Daniel Caballero Unavailable None, No PCP Unavailable Un[facility], [facility] Primary Care Unavailable WEST, DR RADHA Gaxiola Consulting Unavailable DUNCAN ., DR LLUVIA Sheldon Attending Unavailable DUNCAN ., DR LLUVIA Sheldon Admitting Unavailable DUNCAN ., DR LLUVIA Sheldon Consulting Unavailable [facility], [facility] Primary Care Unavailable DUNCAN ., DR LLUVIA Sheldon Attending Unavailable DUNCAN ., DR LLUVIA Sheldon Consulting Unavailable DUNCAN ., DR LLUVIA Sheldon Admitting Unavailable FAWMND, [facility] Primary Care Unavailable DUNCAN ., DR LLUVIA Sheldon Attending Unavailable DUNCAN ., DR LLUVIA Sheldon Consulting Unavailable DUNCAN ., DR LLUVIA Sheldon Admitting Unavailable [facility], [facility] Primary Care Unavailable ANDERSEN .RAVINDER Consulting Unavailable DUNCAN ., DR LLUVIA Sheldon Admitting Unavailable DUNCAN ., DR LLUVIA Sheldon Attending Unavailable [facility], [facility] Primary Care Unavailable ANDERSEN ., RAVINDER Consulting Unavailable DUNCAN ., DR LLUVIA Sheldon Admitting Unavailable DUNCAN ., DR LLUVIA Sheldon Attending [facility]available [facility], [facility] Primary Care Unavailable LAKSHMIPATHY ., NARENDRANATH Attending Nadira vailable LAKSHMIPATHY ., NARENDRANATH Admitting Nadira vailable FAWWAD, COREAS H Primary Care Unavailable LAKSHMIPATHY ., NARENDRANATH Attending Nadira vailable LAKSHMIPATHY ., NARENDRANATH Consulting Nadira vailable LAKSHMIPATHY ., NARENDRANATH Admitting Nadira vailable FAWWAD, COREAS H Primary Care Unavailable LAKSHMIPATHY ., NARENDRANATH Consulting Nadira vailable LAKSHMIPATHY ., NARENDRANATH Admitting Nadira vailable LAKSHMIPATHY ., KARTHIK Attending Nadira vailable SHAIKH JASSO H Primary Care Unavailable NATHALY .RAVINDER Consulting Unavailable CUCO ., DR LLUVIA Sheldon Attending Unavailable CUCO ., DR LLUVIA Sheldon Admitting Unavailable ROMERO, H Primary Care Unavailable LAKSHMIPATHY ., KARTHIK Attending Nadira vailable RINA, DR DOMINGA William Consulting Unavailable LAKSHMIPATHY ., KARTHIK Admitting Nadira vailable LAKSHMIPATHY ., KARTHIK Consulting Nadira vailable ITZBUTCH, JONATHAN Enriquez Attending Unavailable JONATHAN NAGY Attending Unavailable SHAIKH JASSO Attending Unavailable SHAIKH JASSO Attending Unavailable Medications [...] 31-Dec-2016 Active take 1 tablet by lizzie twice daily oxycodone-acetaminophen 5 mg-300 mg oral [...] 17 MCG/ACT Inhalation Aerosol Solution Refills: 0 Chandan Sheffield Start : 28-Nov-2017 Active lisinopril 20 mg [...] by: DOMINGA FLYNN Date: 2022-12-08 10:25 Normal [facility] MRI SHOULDER RT WO CONon MRI [...] by: DOMINGA FLYNN Date: 2022-12-08 10:35 Normal [facility] XR CSPINE OBL FLEX_EXTon XR CSPINE [...] RADHA DIAZ Date: 2022-05-31 20:33 Normal [facility] Post Op (General Surgery)on 04-02-2021 Post Op [...] not he wants to follow-up with a lead auditor in our system. Provider Impressions He is [...] not he wants to follow-up with a lead auditor in our system. Chief Complaint An interactive [...] not he wants to follow-up with a lead auditor in our system. Active Problems COPD (chronic [...] MG Oral Tablet Results/Data Xray Chest 1 [id number] 04:27PMJim Faith Test NameResultFlagReference Xray Chest 1 View(Report) FINAL REPORT Interpreted by: МАРИНА MARCELO MD 02/12/21 16:52 Patient Name: RIGO JEFFERSON STUDY: CHEST 1 VIEW; 02/12/2021 4:27 pm INDICATION: chest tube removal. COMPARISON: Prior 11:07 a.m. radiograph. ACCESSION NUMBER(S): [id number] ORDERING CLINICIAN: JIM FAITH FINDINGS: Left basilar [...] Apr 02 2021 5:38PM EST (Author) Normal [place] Admission Risk Screen - Adul ton 02-12-2021 Admission Risk Screen - Adult Allergies: Allergies: No Known Allergies: Patient Verification: New W ID Band Applied in my Departmentno Type of ID Patient is WearingW wristband, but not applied here Patient Transferred from Other Facility ([facility], [facility],etc)no Patient Identity Verified Bypatient ID Band [...] AlertFor Ebola-like Symptoms: Isolate Patient and Notify Provider/Thermodynamics Teacher For Contact: Notify Provider/Thermodynamics Teacher Advance Directive: Advance Directive/DNRno (1) Advance Directive [...] Learning Preferencesverbal instruction Cultural Considerationsnone Developmental Considerationsnone Sikh Considerationsnone Learning Assessment (Other Learner): Other learner availableno Depression Screen: During the past month, have you often been bothered by feeling down, depressed or hopelessno (1) During the past month, have you often had little interest or pleasure in doing thingsno (1) Have you had any thoughts of harming anyone elseno (1) [place] Suicide: Risk Screen Not Applicable/Able to Answerable to be screened In the Past Month: Have you wished you were or could go to sleep and not wake upno(1) In the Past Month: Have you had any actual thoughts of killing yourself no(1) Lifetime: Have you ever done, started to do, or prepared to do anything to end your lifeno(1) [place] Suicide Risknegative Adult Nutrition Screen: Have you [...] Pain (nonverbal)verbalization (more content not included)... Normal [facility] BASIC METABOLIC PANELon 02-03 Anion gap [Moles/Vol] 15 mmol/L Normal 10 - 20 [facility] Comment on above: Performed By: #### B MP #### [facility] [address] [place] [address] Calcium [Mass/Vol] 9.5 mg/dL Normal 8.6 - 10.6 [facility] Comment on above: Performed By: #### B MP #### [facility] [address] [place] [address] Chloride [Moles/Vol] 102 mmol/L Normal 98 - 107 [facility] Comment on above: Performed By: #### B MP #### [facility] [address] [place] [address] Creatinine [Mass/Vol] 0.98 mg/dL Normal 0.50 - 1.30 [facility] Comment on above: Performed By: #### B MP #### [facility] [address] [place] [address] GFR- AM. >60 Normal >60 [facility] Comment on above: Result Comment: CALC ULATIONS OF ESTIMATED GFR ARE PERFORMED USING THE MDRD STUDY EQUATION FOR THE IDMS-TRACEABLE CREATININE METHODS. CLIN CHEM 2007;53:766-72 Performed By: #### B MP #### [facility] [address] [place] [address] GFR-NON AM. >60 Normal >60 [facility] Comment on above: Performed By: #### B MP #### [facility] [address] [place] [address] Glucose [Mass/Vol] 133 mg/dL High 74 - 99 [facility] Comment on above: Performed By: #### B MP #### [facility] [address] [place] [address] HCO3 (Bld) [Moles/Vol] 24 mmol/L Normal 21 - 32 [facility] Comment on above: Performed By: #### B MP #### [facility] [address] [place] [address] Potassium [Moles/Vol] 4.3 mmol/L Normal 3.5 - 5.3 [facility] Comment on above: Performed By: #### B MP #### [facility] [address] [place] [address] Sodium [Moles/Vol] 137 mmol/L Normal 136 - 145 [facility] Comment on above: Performed By: #### B MP #### [facility] [address] [place] [address] Urea nitrogen [Mass/Vol] 17 mg/dL Normal 6 - 23 [facility] Comment on above: Performed By: #### B MP #### [facility] [address] [place] [address] CBCon 02-12-2021 Erythrocyte distribution width (RBC) [Ratio] 12.1 % Normal 11.5 - 14.5 [facility] Comment on above: Performed By: #### C BC #### [facility] [address] [place] [address] Hematocrit (Bld) [Volume fraction] 45.8 % Normal 41.0 - 52.0 [facility] Comment on above: Performed By: #### C BC #### [facility] [address] [place] [address] Hemoglobin (Bld) [Mass/Vol] 15.0 g/dL Normal 13.5 - 17.5 [facility] Comment on above: Performed By: #### C BC #### [facility] [address] [place] [address] MCHC (RBC) [Mass/Vol] 32.8 g/dL Normal 32.0 - 36.0 [facility] Comment on above: Performed By: #### C BC #### [facility] [address] [place] [address] MCV (RBC) [Entitic vol] 94 fL Normal 80 - 100 [facility] Comment on above: Performed By: #### C BC #### [facility] [address] [place] [address] NUCLEATED RBC 0.0 /100 WBC Normal 0.0-0.0 [facility] Comment on above: Performed By: #### C BC #### [facility] [address] [place] [address] Platelets (Bld) [#/Vol] 228 10*3/uL Normal 150 - 450 [facility] Comment on above: Performed By: #### C BC #### [facility] [address] [place] [address] RBC 4.85 x10E12/L Normal 4.50 - 5.90 [facility] Comment on above: Performed By: #### C BC #### [facility] [address] [place] [address] WBC (Bld) [#/Vol] 12.8 10*3/uL High 4.4 - 11.3 [facility] Comment on above: Performed By: #### C BC #### [facility] [address] [place] [address] Clinical Event Note-POCon Clinical Event Note-POC Clinical [...] Event Note Last Updated: 12-Feb-2021 00:41 by Natailia Ferris ( (Resident)) Normal [facility] Daily Progress Note-Surgeryo n 02-12-2021 Daily Progress [...] yet. Objective Data: Objective Information: T PRBPSpO2 Value35.20650334/8695% Date/Time02/12 6:4902/12 6:4902/12 6:4902/12 6:4910 6:49 Range(35.4C - 36.4C ) (77 - 99 ) (17 - 18 ) (127 - 147 )/ (86 - 91 ) (95% - 96% ) Pain reported at 02/12 2:54: 6 = Moderate ---- Intake and Output ----- Mn/Dy/Year TimeIntakeOutputNet Feb 12, 2021 6:00 [id number] Feb 11, 2021 10:00 [id number] The Intake and Output Totals for the last 24 hours are: IntakeOutputNet [id number] Physical Exam by System: Constitutional: Well developed, [...] Plan: Code Status: Code StatusFull Code Assessment: LIRigo is a 60yo male POD#1 s/p diaphragmatic [...] Last Updated: 13-Feb-2021 10:13 by Daniel Caballero) [facility] Discharge Planning Izay2tm 0 02-12-2021 Discharge Planning Note2 Discharge Planning: Needs Prior to Discharge (ex. Home Care Orders, IV/O2 prescriptions) Follow up appointments Discharge Barriers (ex. Avoidable days, wait guardianship, pt refuse leave) None Planned Dispositionhome Discharge [facility]ination[facility] [place] of Choice Explainedyes preference Anticipated Discharge [id number] Discharge Planning 02/12/2021 0135 Discharge Plan Patient transferred from [place] [address] from PACU for diaphragm plication. Pt is A&O times 4. at 3 liters oxygen. Pt denies any director of medical staff services use at home. 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 Pt have valuable belongings at bedside- see chart. No discharge plan a this time. Mary Beth Holcomb, SHAMIRN RN. 02/12/21 1317 Transitional Care Coordination Progress [...] disposition: Home Potential Barriers: none ADOD: 02/12. sales service coordinator will continue to follow for discharge planning needs. Franny Gilliam RN, Transitional Mail Officer/TCC, pager [phone] Discharge note: 02/12/21 @ 1735: PT discharged home at this time. pts peripheral IV taken out prior to DC. pt given DC instructions. pt verbalized understanding. pt refused transport and walked downstairs with his son.---Erika stock RN Assessment: Discharge Planning Assessment [id number] Primary Contact Name and NumberAdam [phone](1) Stated Reason for Admissiondiaphragm plication(2) Arrived FromOR (2) Lives Withparent(s)(2) Living Arrangementshouse(2) Resource/Environmental Concernsnone(2) [facility] Services Anticipated at Transitionnone(2) Discharge Documentation: Discharge/Transfer Date/Cydf66-Pse-0420 17:35 Discharge Modeambulatory Discharged Accompanied Byfamily member [...] Profile - Adult v2 12-Feb-2021 01:31 Normal [facility] Discharge Oyamcaz9kr 021 Discharge Profile2 Discharge Orders: Anticipated Discharge Date: Anticipated Discharge [id number] DNAR: DNAR Status: none Call Provider If [...] at 12-Feb-2021 14:39:47 Appointments: Follow-Up Appointment 01: Physician/Dept/Reji PCP Reason for Referralhospital follow-up Call to Schedule in1 week Follow-Up Appointment 02: Physician/Dept/ServiceDr. Caballero - surgery Reason for Referralhospital follow-up / diaphragm pacer removal, hemidiaphragm plication Call to Schedule in2 weeks [id number] Hilario Crawford [address] Phone [phone] Other Clinician Instructions: Other Instructions: Other Clinician [...] Appointments, Other Clinician Instructions, Gold Form - Phlebotomy Technician Summary Last Updated: 12-Feb-2021 15:27 by Jim Faith ( (Resident)) Normal [facility] Laboratory - Chemistry and C hemistry - challengeon 02-12-2021 Anion gap [Moles/Vol] 15 mmol/L 10 - 20 HS-Grslxmq-I [address] Work Phone: Calcium [Mass/Vol] 9.5 mg/dL 8.6 - 10.6 MG-Tino raysa-G [address] Work Phone: Chloride [Moles/Vol] 102 mmol/L 98 - 107 RW-Qzwqpyg-N [address] [employer] [address] Work Phone: CO2 [Moles/Vol] 24 mmol/L 21 - 32 MG-Surger y-G [address] Work Phone: Creatinine [Mass/Vol] 0.98 mg/dL See Below DP-Rrdarym-[address] Work Phone: Comment on above: Reference Range: 0.5 0 - 1.30 Glucose [Mass/Vol] 133 mg/dL above high threshold 74 - 99 ZL-Gjjrusu-[address] Work Phone: [phone] Potassium [Moles/Vol] 4.3 mmol/L 3.5 - 5.3 WK-Khwsdbd-[address] Work Phone: [phone] Sodium [Moles/Vol] 137 mmol/L 136 - 145 MG[facility]ino raysa[facility] Work Phone: [phone] Urea nitrogen [Mass/Vol] 17 mg/dL 6 - 23 IY-Agpoxxv-V [facility] Work Phone: [phone] Laboratory - Hematology and Cell countson 02-12-2021 Erythrocyte distribution width (RBC) [Ratio] 12.1 % See Below DW-Cctvcjh-I [facility] [address] Work Phone: [phone] Comment on above: Reference Range: 11. 5 - 14.5 Hematocrit (Bld) [Volume fraction] 45.8 % See Below PD-Bxwgdzx-[address] Work Phone: [phone] Comment on above: Reference Range: 41. 0 - 52.0 Hemoglobin (Bld) [Mass/Vol] 15.0 g/dL See Below MG-Dkohzqq-D [address] Work Phone: [phone] Comment on above: Reference Range: 13. 5 - 17.5 MCHC (RBC) [Mass/Vol] 32.8 g/dL See Below PD-Ctevzsp-[address] Work Phone: [phone] Comment on above: Reference Range: 32. 0 - 36.0 MCV (RBC) [Entitic vol] 94 fL 80 - 100 RU-Sxsggeh-[address] Work Phone: [phone] Platelets (Bld) [#/Vol] 228 10*3/uL 150 - 450 BR-Nivffeq-N [facility] Work Phone: [phone] RBC (Bld) [#/Vol] 4.85 {x10E12/L} See Below MG -Surgery-[address] Work Phone: Comment on above: Reference Range: 4.5 0 - 5.90 WBC (Bld) [#/Vol] 12.8 10*3/uL above high threshold 4.4 - 11.3 NH-Hdvumfp-[address] Work Phone: No Panel Informationon 02-12 >60 >60 ZA-Elirobm-[address] Work Phone: Comment on above: CALCULATIONS OF LANRE MATED GFR ARE PERFORMED USING THE MDRD STUDY EQUATION FOR THE IDMS-TRACEABLE CREATININE METHODS. CLIN CHEM 2007;53:766-72 0.0 {/100_WBC} 0.0-0.0 MG-Surgery -[address] Work Phone: Order Reconciliationon 02-12 Order Reconciliation [...] tab(s) orally 2 times a day Normal [facility] Patient Profile - Adult v2on 02-12-2021 Patient Profile - Adult v2 Profile: Initial Info: How to be AddressedDel(1) Spoken Language PreferredEnglish (1) Stated Reason for Admissiondiaphragm plication Patient Belongingsremains with patient Patient Belongings Remaining with Patientcash/credit card; clothing Arrived FromOR Medications Brought to Hospitalno Are you currently using the Personal Electronic Health Record or Financial Information Network [employer] Operations PvtUHCAREno (1) Wants Family/Rep Notified of Admissionyes, primary contact Notify PCPnotify PCP Informed of Patient Visiting Rightsyes General Health: Blood Avoidance/Restrictionsnone (1) Previous Transfusion Reactionno(2) Weight in kg109.8 kilogram(s)(3) Weight in val933 pound(s) Weight Methodactual (measured) (3) Scale Typestanding [...] From 1. Vital Signs 11-Feb-2021 12:02 Normal [facility] Radiologyon 02-12-2021 XR Chest Single view Normal TE-Uecgifh-[address] Work Phone: XR Chest Single view Normal KP-Isipjpu-[address] Work Phone: XR Chest Single view Normal JE-Tedsgni-[address] Work Phone: TH CHEST 1 VIEWon 02-12-2021 TH CHEST 1 VIEW Patient Name: RIGO JEFFERSON STUDY: CHEST 1 VIEW; 02/12/2021 4:27 pm INDICATION: chest tube removal. COMPARISON: Prior 11:07 a.m. radiograph. ACCESSION NUMBER(S): [id number] ORDERING CLINICIAN: JIM FAITH FINDINGS: Left basilar [...] Electronically signed by: МАРИНА MARCELO MD Normal [facility] TH CHEST 1 VIEW Patient Name: RIGO JEFFERSON STUDY: CHEST 1 VIEW; 02/12/2021 11:58 am INDICATION: chest tube wet seal. COMPARISON: 7:02 a.m. radiograph. ACCESSION NUMBER(S): [id number] ORDERING CLINICIAN: JIM FAITH FINDINGS: Left basilar [...] Electronically signed by: МАРИНА MARCELO MD Normal [facility] TH CHEST 1 VIEW Patient Name: RIGO JEFFERSON STUDY: CHEST 1 VIEW; 02/12/2021 7:13 am INDICATION: POD 1 s/p diaphragm plication. COMPARISON: 02/11/2021. ACCESSION NUMBER(S): [id number] ORDERING CLINICIAN: JANE YO FINDINGS: Left basilar [...] effusion. Electronically signed by: МАРИНА MARCELO MD [facility] No Panel Informationon 02-11 [place] [address] Work Phone: Operative Reports - [facility] [place] [address] Patient Name: RIGO JEFFERSON : 1960 Date of Service: 02/11/2021 Patient Location: [place] [address] Patient Type: I Surgeon: Daniel Caballero MD Report Type: Operative Reports PREOPERATIVE DIAGNOSIS: Chronic respiratory failure, left diaphragm dysfunction. POSTOPERATIVE DIAGNOSIS: Chronic respiratory failure, left diaphragm dysfunction. OPERATION/PROCEDURE: Laparoscopic left diaphragm plication with removal of previous diaphragm pacing wires. SURGEON: Daniel Caballero MD DRY GOODS CLERK(S): Jane Yo MD. There was no available resident. ANESTHESIA: LOCATION: [facility]. CLINICAL NOTE: This is a patient with [...] TT: 02/12/2021 12:44 PM EST DICTATION NUMBER: [id number] BRIE JOB NUMBER: [id number] CC: PT STATES NONE PCP Electronic Signatures: Daniel Caballero) (Signed on 13-Feb-2021 10:15) Authored Unsigned, Draft (SYS GENERATED) (Entered on 12-Feb-2021 12:44) Entered Last Updated: 13-Feb-2021 10:15 by Daniel Caballero) Normal [facility] Order Reconciliationon 02-11 Order Reconciliation Page 1 Admission Reconciliation Document Reconciliation Type: Admission from OR requested on behalf of Jane Yo (Physician) done by Jane Yo) Admission from OR - Reconciliation: 11-Feb-2021 18:31 by: Jane Yo) Home MedicationsEnteredLast Dose TakenReconciled with current Order Reconciliation Comment/ Additional Information Kristina 24 Hour Allergy oral tablet 1 tab(s) orally once a anu82-Loq-664311-Feb-2021 AM Reviewed and Held clarithromycin 250 mg oral tablet 250 milligram(s) orally once a day Clarithromycin Tablet (BIAXIN)DOSE = 250 mg Oral Every 24 Hoursclarithromycin 250 mg oral tablet continued as the inpatient order Clarithromycin diclofenac sodium 50 mg oral delayed release tablet 1 tab(s) orally 2 times a [id number]-[id number]-Sdm-2549 AM Reviewed and Held oxycodone-acetaminophen 5 mg-300 mg oral tablet 1 tab(s) orally 2 times a day [id number] AM Reviewed and Held Additional Current Orders [...] 15 minute(s)Clinician Notes: Carlota-operative order ONLY Normal [facility] Patient Profile - Preop v2on 02-11-2021 Patient Profile - Preop v2 Profile: Initial Info: How to be AddressedDel(1) Spoken Language PreferredEnglish (1) Source of Informationpatient Are you currently using the Personal Electronic Health Record or [employer] (1) Are you interested in learning more about Financial Information [employer] Operations [email or web address] for the management of your healthnot at this time Stated Reason for AdmissionL pulling of wires/pulling lung down Primary Contact Name and NumberSahil [phone] Patient Belongingspatient educated regarding responsibility for personal items Medications Brought to Hospitalno General Health: Weight in kg109.8 kilogram(s) Weight in pyi073 pound(s) Weight Methodactual (measured) Scale Typestanding Height [...] Learning Preferencesverbal instruction Cultural Considerationsnone Developmental Considerationsnone Sikh Considerationsnone Other learner availableno Falls RiskPatient location auto qualifies him/her for HIGH RISK. Are there any cultural, spiritual, jain practices/values/needs that are important for us to [...] Profile - Adult v2 12-Dec-2017 16:00 Normal [facility] Preop Checkliston 02-11-2021 Preop Checklist Preop Checklist: Preop Checklist: Arrival Mooz90-Tif-6320 Arrival Time11:48 Procedure TypeL laparoscopic diaphragm plication Temperature C36.1 degrees C Temperature F96.9 degrees F Heart Rate70 beats per minute Respiratory Rate12 breath per minute Blood Pressure Diuqyfku296 mm/Hg Blood Pressure Rnnkcbqgs07 mm/Hg NPO Jzxxmt36-Whs-0404 00:00 ID Band Onyes Allergy Bandno known [...] 11-Feb-2021 12:02 by Jany Ann (RN) Normal [facility] Radiologyon 02-11-2021 XR Chest Single view Please click on the link to view the study images Normal [place] [address] Work Phone: [facility] Surgical Pathology Depar tmenton 02-11-2021 [facility] Surgical Pathology Department Name RIGO JEFFERSON Pathologist: JACINTO MURRIETA MD Date of Procedure: 02/11/2021 Date Received: 02/12/2021 Date Reported 02/19/2021 Submitting Physician: DANIEL CABALLERO M.D. Location: [facility] Copy To/Referring/Attending: DANIEL CABALLERO M.D. Other [...] this case. Clinical History: Physician Contact Number: [id number] Fixative (A): Fresh Clinical Diagnosis History: disorders of diaphragm Specimens Submitted As: A: PACING WIRE Gross Description: Received in formalin, labeled with the patient's name and hospital number, are multiple wires with a piece of adipose tissue attached measuring 3.0 x 1.6 x 1.0 cm. A photograph is taken. The attached soft tissue is submitted entirely in one cassette. EXB exb/02/12/2021 [facility] Department of Pathology [address] [place] [address] Normal [facility] Comment on above: Performed By: #### U HCS ####[facility] Surgical Pathology [address] [place] [address] CORONAVIRUS 2019, SCREEN ASY MPTOMATICon 02-10-2021 SARS-CoV-2 (COVID-19) RNA BECCA+probe Ql (Unsp spec) Not detected Normal Not Detected [facility] Comment on above: Result Comment: . This [...] patient management decisions. Fact sheet for providers: https://www.fda.gov/media/059187/download Fact sheet for patients: https://www.fda.gov/media/776153/download This test has received FDA Emergency Use Authorization (EUA) and has been verified by [facility] ([facility]). This test is only authorized for the duration of time that circumstances exist to justify the authorization of the emergency use of in vitro diagnostic tests for the detection of SARS-CoV-2 virus and/or diagnosis of COVID-19 infection under section 564(b)(1) of the Act, 21 U.S.C. 360bbb-3(b)(1), unless the authorization is terminated or revoked sooner. [facility] is certified under CLIA-88 as qualified to perform high complexity testing. Testing is performed in the [facility] laboratories located at [address] [place] [address]. Performed By: #### C OVSC #### [place] [address] Covid 19 Resultson SARS-CoV-2 (COVID-19) RNA BECCA+probe [...] may also be contacted by the [facility] to see if any of your [...] or Naproxen (Aleve) can also be used. Akou-jto-vujfdmp cough and cold medicines can be used according to the instructions on the package. Some biqt-rfd-zpwzdqv medicines also contain acetaminophen. Make sure you [...] water are not available, use alcohol-based hand milieu coordinator. Avoid touching your eyes, nose, and mouth [...] 24 alem (more content not included)... Normal [facility] CORONAVIRUS 2019, SCREEN ASY MPTOMATICon 02-09-2021 Lab Specimen Source Nasal, Nasopharyngeal Normal [facility] Comment on above: Performed By: #### C OVSC #### [facility] [id number] [place] [address]. [place] [address] Coronavirus 2019 RNA by PCR, Screening Asymptomticon 02-09-2021 Coronavirus 2019 RNA by PCR, Screening Asymptomtic Not detected Normal See Below YR-Iynsfnu[address] Work Phone: Comment on above: [...] make patient management decisions.Fact sheet for providers: https://www.fda.gov/media/712867/downloadFact sheet for patients: https://www.fda.gov/media/269991/downloadThis test has received FDA Emergency Use Authorization (EUA) and has been verified by [facility] ([facility]). This test is only authorized for the duration of time that circumstances exist to justify the authorization of the emergency use of in vitro diagnostic tests for the detection of SARS-CoV-2 virus and/or diagnosis of COVID-19 infection under section 564(b)(1) of the Act, 21 U.S.C. 360bbb-3(b)(1), unless the authorization is terminated or revoked sooner. [facility] is certified under CLIA-88 as qualified to perform high complexity testing. Testing is performed in the [facility] laboratories located at [address] [place] [address]. BASIC METABOLIC PANELon 05-2 Anion gap [Moles/Vol] 13 mmol/L Normal 10 - 20 [facility] Comment on above: Performed By: #### B MP ####[id number] [place] [address] Calcium [Mass/Vol] 9.7 mg/dL Normal 8.6 - 10.6 [facility] Comment on above: Performed By: #### B MP ####[id number] [place] [address] Chloride [Moles/Vol] 108 mmol/L High 98 - 107 [facility] Comment on above: Performed By: #### B MP ####[id number] [place] [address] Creatinine [Mass/Vol] 1.04 mg/dL Normal 0.50 - 1.30 [facility] Comment on above: Performed By: #### B MP ####[id number] [place] [address] GFR- AM. >60 Normal >60 [facility] Comment on above: Result Comment: CALC ULATIONS OF ESTIMATED GFR ARE PERFORMED USING THE MDRD STUDY EQUATION FOR THE IDMS-TRACEABLE CREATININE METHODS. CLIN CHEM 2007;53:766-72 Performed By: #### B MP ####[id number] [place] [address] GFR-NON AM. >60 Normal >60 [facility] Comment on above: Performed By: #### B MP ####[id number] [place] [address] Glucose [Mass/Vol] 91 mg/dL Normal 74 - 99 [facility] Comment on above: Performed By: #### B MP ####[id number] [place] [address] HCO3 (Bld) [Moles/Vol] 29 mmol/L Normal 21 - 32 [facility] Comment on above: Performed By: #### B MP ####[id number] [place] [address] Potassium [Moles/Vol] 4.6 mmol/L Normal 3.5 - 5.3 [facility] Comment on above: Performed By: #### B MP ####[id number] [place] [address] Sodium [Moles/Vol] 145 mmol/L Normal 136 - 145 [facility] Comment on above: Performed By: #### B MP ####[id number] [place] [address] Urea nitrogen [Mass/Vol] 13 mg/dL Normal 6 - 23 [facility] Comment on above: Performed By: #### B MP ####[id number] [place] [address] CBCon 01-27-2021 Erythrocyte distribution width (RBC) [Ratio] 12.2 % Normal 11.5 - 14.5 [facility] Comment on above: Performed By: #### C BC ####[id number] [place] [address] Hematocrit (Bld) [Volume fraction] 46.7 % Normal 41.0 - 52.0 [facility] Comment on above: Performed By: #### C BC ####[id number] [place] [address] Hemoglobin (Bld) [Mass/Vol] 15.1 g/dL Normal 13.5 - 17.5 [facility] Comment on above: Performed By: #### C BC ####[id number] [place] [address] MCHC (RBC) [Mass/Vol] 32.3 g/dL Normal 32.0 - 36.0 [facility] Comment on above: Performed By: #### C BC ####[id number] [place] [address] MCV (RBC) [Entitic vol] 96 fL Normal 80 - 100 [facility] Comment on above: Performed By: #### C BC ####[id number] [place] [address] NUCLEATED RBC 0.0 /100 WBC Normal 0.0-0.0 [facility] Comment on above: Performed By: #### C BC ####[id number] [place] [address] Platelets (Bld) [#/Vol] 209 10*3/uL Normal 150 - 450 [facility] Comment on above: Performed By: #### C BC ####[id number] [place] [address] RBC 4.85 x10E12/L Normal 4.50 - 5.90 [facility] Comment on above: Performed By: #### C BC ####[id number] [place] [address] WBC (Bld) [#/Vol] 7.2 10*3/uL Normal 4.4 - 11.3 [facility] Comment on above: Performed By: #### C BC ####[id number] [place] [address] Follow Up (General Surgery)o n 01-27-2021 Follow [...] EKG; Status:Hold For - Scheduling; Requested for:27Jan2021; Perform:[facility] [place] 1800; Due:27Apr2021;Ordered; For:Diaphragm dysfunction, HTN (hypertension); Ordered By:Chandan Cool; Unlinked Continue: Atorvastatin Calcium 40 MG Oral Tablet Dispense: 30 Days ; #:30; Refill: 0; MICAELA = N; Record; Last Updated By: Chandan Cool; 01/27/2021 11:56:56 AM Continue: Clarithromycin 500 MG Oral Tablet; TAKE 1 TABLET BY MOUTH EVERY 12 HOURS (hold lipitor for TEN days) Rx By: Osorio; Dispense: 7 Days ; #:14; Refill: 0; MICAELA = N; Record; Last Updated By: Chandan Cool; 01/27/2021 11:56:56 AM Continue: oxyCODONE-Acetaminophen 5-325 MG Oral Tablet Dispense: 30 Days ; #:120; Refill: 0; MICAELA = N; Record; Last Updated By: Chandan Cool; 01/27/2021 11:56:56 AM Patient Discussion/Summary 60 year [...] L1, routine follow up. History of Present IllnessMrNoe Jefferson came in today accompanied by his son. 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 He was turning the device [...] MG Oral Tablet Vitals Vital Signs Recorded: [id number] 11:12AM Jmyggykidfl64.1 F Heart Rate77 Wshlznxg930 Nhckqnhei38 Dlwwyk307 lb BMI Tbzzfyackd72.64 kg/m2 BSA Calculated2.33 Tobacco Useb) No Physical [...] the r (more content not included)... Normal [employer] No Panel Informationon 01-27 [email or web address] 1:8080 [email or web address]?R etrieveTestByDateTime?Sherita rzqTU=[id number]&Date=&Time=13%3a24%3a34%3a 00&TestType=ECG&Site=1&Out putType=PDF&Ext=PDF JC-Gqabqvc-[address] Work Phone: Normal sinus rhythm MG-Ramos rgery-[address] Work Phone: Normal ED-Ziqvyoa-T [address] Work Phone: [phone] FF-Garyxtl-[address] Work Phone: [phone] JV-Vptthpp-[address] Work Phone: [phone] BP-Ztgkjcf-Q [address] Work Phone: 147 1 RE-Bvpoksm-[address] Work Phone: [phone] 1 AL-Ekpyyep-[address] Work Phone: 11 1 TC-Rlegvtn-Y [address] Work Phone: [phone] WG-Mgbdpks-[address] Work Phone: [phone] FN-Tevodvg-[address] Work Phone: 40 1 DB-Vrcayju-[address] Work Phone: [phone] XX-Alzmsac-E [address] Work Phone: [phone] 1 ER-Eashqhc-N [address] Work Phone: [phone] 1 EA-Ddeoacg-[address] Work Phone: 154 1 WI-Amipqgl-[address] Work Phone: [phone] 1 SJ-Glapnmt-F [address] Work Phone: Radiologyon 01-27-2021 XR Chest 2 Views Normal MG-Surge ry-[address] Work Phone: TH CHEST 2 VIEW PA AND LATon 01-27-2021 TH CHEST 2 VIEW PA AND LAT Patient Name: RIGO JEFFERSON STUDY: TH CHEST 2 VIEW PA AND LAT; 01/27/2021 11:00 am INDICATION: chronic hypoventilation. COMPARISON: Chest radiograph 04/03/2019 ACCESSION NUMBER(S): [id number] ORDERING CLINICIAN: DANIEL CABALLERO FINDINGS: Inspiratory and [...] Electronically signed by: ANGI CAICEDO MD Normal [facility] Tobacco Screening.on 021 Tobacco use status CP b) No CK-Cfenqkr-[address] Work Phone: Tobacco Screening. b) No MG-Tino raysa-[address] Work Phone: Otheron 04-03-2019 XR Chest 2 views Interpreted by: ISAK04/03/19 14:06MRN: [id number] Name: RIGO JEFFERSON STUDY:CHEST 2 VIEW PA [...] Electronically signed by: ISAK 04/03/19 14:06 Normal VD-Yekzajd-[address] Work Phone: Vital Signs Date Time Vital Sign Value Performing Clinician Facility 02-12-2021 14:10-0400 SaO2% (BldA) [Mass fraction] 95 % No Pcp Required [facility] 02-12-2021 14:00-0400 Body temperature 97.16 [degF] No Pcp Required [facility] 02-12-2021 14:00-0400 Diastolic blood pressure 83 mm[Hg] No Pcp Required [facility] 02-12-2021 14:00-0400 Heart rate 81 /min No Pcp Required [facility] 02-12-2021 14:00-0400 Respiratory rate 18 /min No Pcp Required [facility] 02-12-2021 14:00-0400 Systolic blood pressure 131 mm[Hg] No Pcp Required [facility] 02-12-2021 03:31-0400 Body height 182.8 cm No Pcp Required [facility] 02-12-2021 03:31-0400 Body weight 109.8 kg No Pcp Required [facility] 01-27-2021 11:12-0400 Body mass index (BMI) [Ratio] 33.64 kg/m2 Daniel Caballero MD Work Phone: CR-Ymgeoyw-[address] Work Phone: 01-27-2021 11:12-0400 Body surface area Derived from formula 2.33 m2 Daniel Caballero MD Work Phone: FV-Uoqmeyu-[address] Work Phone: 01-27-2021 11:12-0400 Body temperature 96.1 [degF] Daniel Caballero MD Work Phone: GQ-Elsceiw-[address] Work Phone: 01-27-2021 11:12-0400 Body weight 112.49 kg Daniel Caballero MD Work Phone: MO-Owlbipw-[address] Work Phone: 01-27-2021 11:12-0400 Diastolic blood pressure 85 mm[Hg] Daniel Caballero MD Work Phone: HF-Wjasaje-T[address] Work Phone: 01-27-2021 11:12-0400 Heart rate 77 /min Daniel Caballero MD Work Phone: JC-Wmjfahw-E[address] Work Phone: 01-27-2021 11:12-0400 Systolic blood pressure 157 mm[Hg] Daniel Caballero MD Work Phone: WC-Adpewcz-[address] Work Phone: 04-03-2019 15:37-0400 BMI (Body Mass Index) 30.11 kg/m2 Chandan [place] [facility]-Surgery -[place] [address] Work Phone: 04-03-2019 15:37-0400 Body Temperature 97.9 [degF] Chandan [place] OZ-Lxcrgmi-Rpsc [address]99 Work Phone: 04-03-2019 15:37-0400 Body weight 100.7 kg Chandan [place] TJ-Exsnvwj-Uwwxr ll [address] Work Phone: 04-03-2019 15:37-0400 BP Diastolic 74 mm[Hg] Chandan [place] WF-Utznzvl-Boscq [address]99 Work Phone: 04-03-2019 15:37-0400 BP Systolic 121 mm[Hg] Chandan [place] PF-Wbdklpl-Dfuru ll 2099 Work Phone: 04-03-2019 15:37-0400 BSA (Body Surface Area) 2.23 m2 Chandan [place] QR-Phaarvo-Tglvoio 2099 Work Phone: 04-03-2019 15:37-0400 Height 182.88 cm Chandan [place] QK-Mchmebo-Cmzrm ll 2099 Work Phone: 04-03-2019 15:37-0400 Pulse (Heart Rate) 58 /min Chandan [place] DS-Hoavubo-[address] Work Phone: Encounters Encounter Date Encounter Type Care Provider Facility Start: 11-23-2023 End: 11-23-2023 ambulatory COREAS FAWWAD Not Available Start: 10-05-2023 End: 10-05-2023 ambulatory JONATHAN H [...] related to original px No PCP None EM-Nvlvpfs-[address] Work Phone: Start: 02-20-2021 Chart Update No PCP None [facility]-Sur[facility] Work Phone: Start: 02-11-2021 End: 02-12-2021 Evaluation and management of inpatient Daniel Onders [facility] [address] 55 Rm 5511 01 Start: 01-27-2021 Chart Update Daniel Caballero MD Work Phone: AR-Wtdktyp-Pmt[address] Work Phone: Start: 04-03-2019 Patient encounter procedure Chandan Cool PQ-Zfyxtbz-[address]qc[address] Work Phone: Start: 01-12-2018 Patient encounter procedure Chandan Cool PG-Jefspvq-F[address] Work Phone: Start: 11-28-2017 Patient encounter procedure Chandan Cool RH-Wsejmcr-Afym[address] Work Phone: Start: 11-28-2017 Patient encounter procedure Chandan Cool EC-Gskctel-Mmjq[address] Work Phone: Procedures Date Procedure [...] End: 11-Feb-2022 Ordered: 11-Feb-2021 Jane Yo Intent [facility] Payers Date Payer Category Payer Unknown [id number] 2018 Unknown 1960 Medicare [id number] 1960 Unknown [id number] 2.16.84 [id number] 1959 Unknown [id number] 2.16.84 0.1.222560.3.579.2.593 1959 Unknown [id number] 2.16.84 0.1.380376.3.579.2.593 1959 Unknown [id number] 2.16.84 0.1.165691.3.579.2.593 1959 Unknown [id number] 2.16.84 0.1.992614.3.579.2.593 1959 Unknown [id number] 2.16.84 0.1.474922.3.579.2.593 1959 Unknown [id number] 2.16.84 0.1.434644.3.579.2.593 1959 Unknown [id number] 2.16.84 0.1.869021.3.579.2.593 1959 Unknown [id number] 2.16.84 0.1.939252.3.579.2.593 1959 Unknown [id number] 2.16.84 0.1.921814.3.579.2.593 1959 Unknown [id number] 2.16.84 0.1.163533.3.579.2.1259 1959 Unknown [id number] 2.16.84 0.1.654107.3.579.2.1259 1959 Unknown [id number] 2.16.84 0.1.278912.3.579.2.1259 1959 Unknown [id number] 2.16.840 .1.444084.3.579.2.1259 Social History Date Type Detail Facility Former smoker Former smoker KD-Vfeffol-[address] Work Phone: Tobacco smoking consumption unknown [facility] NEGATED: Highlighted row - - MG- Surgery-[address] Work Phone: Functional Status Date Assessment Result Facility Functional observable [facility] NEGATED: Highlighted row Functional performance Functional status health issues are not documented Disease YF-Nyprsvw-[address] Work Phone: Mental Status Date Assessment Result Facility 02-12-2021 Cognitive functi ons [id number] [facility] NEGATED: Highlighted row Cognitive function [Interpretation] Cognitive status health issues are not documented Disease SJ-Osncosl-[address]gt[address] Work Phone: Clinical Notes 02-11-2021 to 12-09-2022 <item><item><item><item><item> Note Date & Type Note Facility [...] our patients to inform us about any wzkw-tle-fmmqblo medications or herbal remedies/nutritional supplements/alternative remedies. 2. [...] options with their primary care provider. [facility] 11-25-2022 Note CONSULTATION CONSULTATION DATE: 11/25/2022 TO: [...] of his shoulders, bilaterally, without contrast. [facility] 09-03-2022 Note CONSULTATION CONSULTATION DATE: 09/03/2022 HISTORY [...] three months' time, unless otherwise indicated. [facility] 06-01-2022 Note CONSULTATION CONSULTATION DATE: 06/01/2022 CHIEF [...] b.i.d. basis. The patient also uses the Vicks heat rub to his cervical spine. The [...] followed up in three months. CC: Shaikh Romero M.D. [facility] 05-18-2022 Note CONSULTATION CONSULTATION DATE: 05/18/2022 HISTORY [...] and would like to proceed. CC: Shaikh Romero M.D. [facility] 05-18-2022 Note CONSULTATION PROCEDURE DATE: 05/18/2022 PREOPERATIVE [...] be followed up in the office. [facility] 04-29-2022 Note CONSULTATION CONSULTATION DATE: 04/29/2022 HISTORY [...] for his injections with Dr. Duncan. [facility] 01-27-2022 Note CONSULTATION CONSULTATION DATE: 01/27/2022 HISTORY [...] in three month's time, unless otherwise indicated. [facility] Signed and Approved by: RAVINDER ANDERSEN . 02/04/2022 16:12:00 [facility] 02-12-2021 Note Send Summary: Discharge Summary Providers: Provider RoleProvider Name ReferringOnders Daniel PrimaryRequired, No Pcp AttendingAda Daniel Note [...] at Discharge: .Home Vital Signs: T PRBPSpO2 [id number]/8395% Date/Time02/12 12: 12: 12: 12: 12:10 Range(35.4C - 36.4C ) (77 - 99 ) (17 - 18 ) (127 - 147 )/ (83 - 91 ) (92% - 96% ) As of 12-Feb-2021 12:10:00, patient is on 2 L/min of oxygen Date: Weight/Scale Type:Height: 12-Feb-2021 01:83091.8 kg / .8 cm Hospital Course: 60 [...] Call to Schedule in: 2 weeks Location: [address] [place] [address] Discharge Medications: Home Medication clarithromycin 250 mg [...] Last Updated: 13-Feb-2021 10:13 by Daniel Caballero) [facility] 02-11-2021 Note Post Operative Note: PreOp Diagnosis: diaphragm paralysis Post-Procedure Diagnosis: same Procedure: 1. laparoscopic L diaphragm plication 2. removal of bilateral diaphragm pacing wires 3. L pigtail chest tube placement Surgeon: Dr Daniel Caballero Resident/Fellow/Other Environment Friendly Landscape Designer: Dr Jane Yo Anesthesia: GETA Estimated Blood [...] Last Updated: 12-Feb-2021 07:53 by Daniel Caballero) [facility] 02-11-2021 Note History & Physical R eviewed: [...] Last Updated: 11-Feb-2021 15:50 by Daniel Caballero) [facility] Chief complaint Narrative - Reported An interactive audio and video telecommunication system which permits real time communications between the patient (at the originating site) and provider (at the distant site) was utilized to provide this telehealth service.Post op LV-[address] Work Phone: Evaluation note Constitutional: Well developed, awake/alert/oriented x3, no distress, alert and cooperativeSkin: warm and dryEyes: PERRL, EOMI, clear scleraENMT: MMMHead/Neck: NCATRespiratory/Thorax: good chest expansion, thorax symmetricCardiovascular: RRRGastrointestinal: Nondistended, soft, non-tender, no rebound tenderness or guardingMusculoskeletal: moves all extremitiesExtremities: well perfusedNeurological: grossly intactPsychological: Appropriate mood and behavior [facility] History of Present illness Narrative He is [...] not he wants to follow-up with a lead auditor in our system. [place] [address] Work Phone: Hospital Discharge instructions Call Provider [...] weekFollow Up Appointment 2:Physician/Dept/Service: Dr. Caballero - [facility] for Referral: hospital follow-up / diaphragm pacer removal, hemidiaphragm plicationLocation: [address] [address] Number: [phone] Form - Other Clinicians:Other Clinician Instructions: Please take your medications as directed. Please follow-up with Dr. Caballero and with your PCP as directed. You may remove dressings and shower Tuesday. No heavy lifting >20lbs or strenours activity for 3 weeks. If your symptoms return or worsen, please seek medical attention. Thank you for allowing us to participate in your care. [facility] Family History No Family History Records Found [...] section and content) DATE CREATED AUTHOR 04/04/2021 [employer] DATE CREATED AUTHOR AUTHOR'S ORGANIZ ATION 04/08/2021 [facility] DATE CREATED AUTHOR AUTHOR'S ORGANIZ ATION 12/31/2022 [facility] DATE CREATED AUTHOR AUTHOR'S ORGANIZ ATION 11/24/2023 [facility] FOR RECORDS PERTAINING TO PATIENTS WHO ARE [...] BE BASED ON THE PRIMARY CLINICAL RECORDS. [employer] [facility]. provides no warranty or guarantee of the accuracy or completeness of information in this document.
--- NOTE | 2023-11-24 11:01 | P.CN_ITS ---
Consult Note: HPI Data of Consult Patient: known to practice within the last 3 years Requesting Physician: Sho Galdamez NP Primary Care Provider: Shaikh Helena MD Consult Narrative Reason for consult: f/u Narrative: Ryan Pete a pleasant 63 year old male presents for evaluation of chronic pain. Today pain 4/10 in low back, ache worse with activity. Patient reports moderate benefit from current medication regimen and would like to continue on these medications. Patient finding benefit to chiropractor every few weeks. Patient reporting pain in left shoulder/neck, low back, left hip, generalized soreness. Reporting burning to bilateral feet increasing with ambulation. STEWART 34%. cc:: CC: Sho Galdamez NP Review of Systems 2 ROS0 Status of ROS 10 or more systems reviewed and unremark able except as noted in history and below Musculoskeletal Reports: back pain and joint pain Meds Home Medications and Allergies Home Medications ?Medication ?Instructions ?Recorded ?Confirmed ?Type atorvastatin 40 mg tablet (Lipitor) 40 mg PO DAILY 02/17/23 02/17/23 History baclofen 10 mg tablet 10 mg PO BID 02/17/23 02/17/23 History gabapentin 300 mg capsule 300 mg PO DAILY 02/17/23 02/17/23 History (Neurontin) lidocaine 5 % topical patch 1 patch topical DAILY 02/17/23 02/17/23 History (Lidoderm) oxycodone-acetaminophen 5 mg-325 1 tab PO QID 02/17/23 02/17/23 History mg tablet (Percocet) oxycodone-acetaminophen 5 mg-325 1 tab PO QID PRN pain #120 tabs 04/12/23 Rx mg tablet (Percocet) oxycodone-acetaminophen 5 mg-325 1 tab PO QID PRN pain #120 tabs 04/14/23 Rx mg tablet (Percocet) oxycodone-acetaminophen 5 mg-325 1 tab PO QID PRN pain #120 tabs 06/14/23 Rx mg tablet (Percocet) oxycodone-acetaminophen 5 mg-325 1 tab PO QID PRN pain #120 tabs 07/19/23 Rx mg tablet (Percocet) oxycodone-acetaminophen 5 mg-325 1 tab PO QID PRN pain #120 tabs 08/17/23 Rx mg tablet (Percocet) oxycodone-acetaminophen 5 mg-325 1 tab PO QID PRN pain #120 tabs 09/15/23 Rx mg tablet (Percocet) oxycodone-acetaminophen 5 mg-325 1 tab PO QID PRN pain #120 tabs 10/18/23 Rx mg tablet (Percocet) oxycodone-acetaminophen 5 mg-325 1 tab PO QID PRN pain #120 tabs 11/16/23 Rx mg tablet (Percocet) Allergies Allergy/AdvReac Type Severity Reaction Status Date / Time No Known Drug Allergies Allergy Verified 02/17/23 12:58 Exam Constitutional Documenting provider has reviewed patient's vital signs: yes Common normals: no apparent distress, oriented x3, healthy appearing, alert and well nourished General appearance: cooperative HENMT Common normals: normocephalic, hearing grossly normal bilaterally and moist oral mucous membranes Head and scalp: normocephalic Eye Common normals: PERRL Pupil: PERRL Neck & C-Spine Common normals: full ROM General: normal visual inspection Cervical spine: paracervical muscle tenderness, paracervical muscle spasm and trapezius muscle tenderness Other: trigger points noted in left paracervical muscles, levator scapulae, trapezius Neck images: 2 1. 2. Chest Common normals: inspection of chest normal Respiratory Common normals: normal respiratory effort, no retractions and no use of accessory muscles Back & Pelvis Lumbar spine/lower back: lumbar ROM normal, pain with ROM and straight leg raise negative bilaterally Sacroiliac joints: SI joint(s) abnormal Back image (male): 2 1. trigger points Extremity Common normals: normal to inspection Right lower extremity: hip joint and knee joint Left lower extremity: hip joint Other: left hip: severe pain with internal and external rotation right hip: mild to moderate pain with internal and external rotation left knee enlarged diameter, mild edema, pain with medial and lateral stress testing, crepitus noted on exam bilateral positive sho/fadir/thigh thrust/gaelsens. Neuro Common normals: oriented x3, CN's II-XII intact bilaterally, moves all extremities, no focal motor deficits, no sensory deficits noted, deep tendon reflexes 2+ bilaterally and gait normal Sensorium/orientation: alert Motor exam: strength 5/5 throughout and no movement abnormalities noted Psych Common normals: mental status grossly normal, thought process normal, cooperative, affect normal, speech normal and activity/motor behavior normal Speech: normal speech Thought process: normal thought process Results Additional Findings Additional findings: If on a controlled substance or opioids, I have checked an [place] report on this patient and there are no aberrancies noted in the prescribing history.??If on a controlled substance or opioid a drug screen was completed and reviewed within the last year, and if there has not been a drug screen completed we ordered one today to monitor higher risk, state monitored pain medication use. As part of providing excellent, safe, comprehensive care, the following was completed at our patient's visit: 1. A medication reconciliation and review to ensure accurate knowledge of current/active medications, including asking our patients to inform us about any [id number] medications or herbal remedies/nutritional supplements/alternative remedies. 2. A review to specifically ensure our patients have had annual screening for screening for depression, screening for tobacco use, and screening for unhealthy alcohol use. For concerning screenings had a discussion with the patient, provided patient education, and recommended follow-up with primary care provider when appropriate. If patient noted with a risk of falling, they received education on strength, gait, and balance training to prevent future risk of falling. Assessment and Plan Assessment and Plan (1) Lumbar spondylosis: (2) Osteoarthritis: (3) Muscle spasm: (4) Encounter for long-term opiate analgesic use: Assessment and Plan: I feel these medications are improving the patient's quality of life and allow them to tolerate activities of daily living as well as participate in recreational activity.? The patient does not report intolerable side effects. The patient is NOT opioid naive and non-pharmacologic and non-opioid treatment has failed to significantly relieve the patient's pain and improve functionality. The patient has a diagnosis that is related to a somatic or visceral pain etiology. ? ?? I reviewed with the patient the potential risks and side effects with the use of? opioid medications including but not limited to respiratory depression,? sedation, and even . I verified the patient has access to naloxone should? these effects occur. I advised the patient to avoid the use of any other? sedation substances including alcohol, THC, and benzodiazepines while? taking opioid medications due to the risk of compounding side effects and? detrimental outcomes. I reviewed the [employer], pain treatment agreement, urine? drug screen, and opioid start talking forms. The patient was advised to let? their family know they had Naloxone in case they would need to administer? the medication.? ?? A drug screen was completed within the last year, and no aberrancies were noted regarding their use of controlled substances. The patient understands they are subject to the terms and conditions of the pain contract that they have signed. ? ?? I have checked an [place]AR[place] report on this patient today and there are no aberrancies noted in the prescribing history.? (5) Bilateral hip pain: Assessment and Plan: chronic bilateral hip pain, left greater than right, see exam above update xray imaging (6) Left knee pain: Assessment and Plan: chronic left knee pain, hx of meniscal tear repair, see exam above update left knee xray (7) Shoulder arthritis: Plan return to office for left paracervical, levator scapulae, trapezius trigger point injections with Dr Hernandez bilateral hip xray and left knee xray ordered, planning for injection therapy vs surgical referral based on imaging. Left hip pain and left knee pain most severe continue current medications, tolerating well without side effects, reporting functional improvement. STEWART 34% UDS today
== END 2023-11-24 10:41 | disposition home or self-care (01) ==
LOC: PM 10:41
PROVIDERS: PCP Internal Medicine; Visit Provider Nurse Practitioner
DX: M47.816 Spondylosis without myelopathy or radiculopathy, lumbar region (principal); M19.90 Unspecified osteoarthritis, unspecified site; M62.838 Other muscle spasm; Z79.891 Long term (current) use of opiate analgesic
CPT/HCPCS: G0463

== ENCOUNTER 2023-12-03 11:39 | Outpatient (OUT) | payer OTHER, SELFPAY ==
--- NOTE | 2023-12-03 | XR_ITS ---
[address] [address] Patient Name: RIGO JEFFERSON MRN: [id number] date: 1960 Sex: M Assigned Patient Location: [facility] Current Patient Location: Accession/Order Number: [id number] Exam Date: 12/03/2023 15:20 Report Date: 12/05/2023 10:52 At the request of: PEDRO DEL REAL Procedure: XR hip LUANN PROCEDURE: XR hip LUANN HISTORY: Bilateral hip pain COMPARISON: None. FINDINGS: BONES:Tiny degenerative osteophytes along superior acetabulum bilaterally. No fracture, dislocation, bone lesion. No significant joint space narrowing or articular surface irregularity. SOFT TISSUES:No visible soft tissue swelling. EFFUSION:None visible. OTHER: Negative. XR/XR hip LUANN IMPRESSION: 1. No acute abnormality. 2. Minimal degenerative changes. Electronically authenticated by: DOMINGA FLYNN Date: 12/05/2023 10:52
--- NOTE | 2023-12-03 | XR_ITS ---
The [address] [address] Patient Name: RIGO JEFFERSON MRN: [id number] date: 1960 Sex: M Assigned Patient Location: [facility] Current Patient Location: [facility] Accession/Order Number: [id number] Exam Date: 12/03/2023 15:20 Report Date: 12/05/2023 12:49 At the request of: PEDRO DEL REAL Procedure: XR knee LT 4V PROCEDURE: XR knee LT 4V HISTORY: left knee pain , chronic COMPARISON: None. FINDINGS: BONES:Slight narrowing of the lateral joint space and mild lateral subluxation of the tibial plafond in relation to the femoral condyles. Small to moderate degenerative osteophytes along the articular margins of all 3 compartments. No fracture, dislocation, bone lesion. SOFT TISSUES:No visible soft tissue swelling. EFFUSION:None visible. OTHER: Negative. XR/XR knee LT 4V IMPRESSION: 1. No acute bone abnormality. 2. 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 Electronically authenticated by: DOMINGA FLYNN Date: 12/05/2023 12:49
--- OUTSIDE RECORDS SUMMARY | 2023-12-03 11:41 | XMS_ITS | CCD ---
Author Organization [facility] Care Team Providers Care Cigarette Roller Name Role Phone Chandan Cool Unavailable Unavailable Sid Ac Unavailable Unavailable Required, No Pcp Unavailable Unavailable Daniel Caballero Unavailable None, No PCP Unavailable [facility], [facility] Primary Care Unavailable WEST, DR RADHA Gaxiola Consulting Unavailable DUNCAN ., DR LLUVIA Sheldon Attending Unavailable DUNCAN ., DR LLUVIA Sheldon Admitting Unavailable DUNCAN ., DR LLUVIA Sheldon Consulting Unavailable [facility], [facility] Primary Care Unavailable DUNCAN ., DR LLUVIA Sheldon Attending Unavailable DUNCAN ., DR LLUVIA Sheldon Consulting Unavailable DUNCAN ., DR LLUVIA Sheldon Admitting Unavailable [facility], [facility] Primary Care Unavailable DUNCAN ., DR LLUVIA Sheldon Attending Unavailable DUNCAN ., DR LLUVIA Sheldon Consulting Unavailable DUNCAN ., DR LLUVIA Sheldon Admitting [facility]available [facility], [facility] Primary Care Unavailable ANDERSEN .RAVINDER Consulting Unavailable DUNCAN ., DR LLUVIA Sheldon Admitting Unavailable DUNCAN ., DR LLUVIA Sheldon Attending [facility]available [facility], [facility] Primary Care Unavailable ANDERSEN ., RAVINDER Consulting Unavailable DUNCAN ., DR LLUVIA Sheldon Admitting Unavailable DUNCAN ., DR LLUVIA Sheldon Attending [facility]available [facility] Primary Care Unavailable LAKSHMIPATHY ., [...] by: DOMINGA FLYNN Date: 2022-12-08 10:25 Normal [facility] MRI SHOULDER RT WO CONon MRI [...] by: DOMINGA FLYNN Date: 2022-12-08 10:35 Normal [facility] XR CSPINE OBL FLEX_EXTon XR CSPINE [...] RADHA DIAZ Date: 2022-05-31 20:33 Normal [facility] Post Op (General Surgery)on 04-02-2021 Post Op [...] not he wants to follow-up with a fermenting cellars receiver in our system. Provider Impressions He is [...] not he wants to follow-up with a fermenting cellars receiver in our system. Chief Complaint An interactive [...] not he wants to follow-up with a fermenting cellars receiver in our system. Active Problems COPD (chronic [...] MG Oral Tablet Results/Data Xray Chest 1 [id number] 04:27PMJim Faith Test NameResultFlagReference Xray Chest 1 View(Report) FINAL REPORT Interpreted by: МАРИНА MARCELO MD 02/12/21 16:52 Patient Name: RIGO JEFFERSON STUDY: CHEST 1 VIEW; 02/12/2021 4:27 pm INDICATION: chest tube removal. COMPARISON: Prior 11:07 a.m. radiograph. ACCESSION NUMBER(S): [id number] ORDERING CLINICIAN: JIM FAITH FINDINGS: Left basilar [...] Apr 02 2021 5:38PM EST (Author) Normal [employer] Admission Risk Screen - Adul ton 02-12-2021 Admission Risk Screen - Adult Allergies: Allergies: No Known Allergies: Patient Verification: New W ID Band Applied in my Departmentno Type of ID Patient is WearingW wristband, but not applied here Patient Transferred from Other Facility ([facility], [facility],etc)no Patient Identity Verified Bypatient ID Band FULL [...] AlertFor Ebola-like Symptoms: Isolate Patient and Notify Provider/Hotel Or Motel Receptionist For Contact: Notify Provider/Hotel Or Motel Receptionist Advance Directive: Advance Directive/DNRno (1) Advance Directive [...] Learning Preferencesverbal instruction Cultural Considerationsnone Developmental Considerationsnone Holiness Considerationsnone Learning Assessment (Other Learner): Other learner availableno Depression Screen: During the past month, have you often been bothered by feeling down, depressed or hopelessno (1) During the past month, have you often had little interest or pleasure in doing thingsno (1) Have you had any thoughts of harming anyone elseno (1) Boaz Suicide: Risk Screen Not Applicable/Able to Answerable to be screened In the Past Month: Have you wished you were or could go to sleep and not wake upno(1) In the Past Month: Have you had any actual thoughts of killing yourself no(1) Lifetime: Have you ever done, started to do, or prepared to do anything to end your lifeno(1) Boaz Suicide Risknegative Adult Nutrition Screen: Have you [...] Pain (nonverbal)verbalization (more content not included)... Normal [facility] BASIC METABOLIC PANELon 02-03 Anion gap [Moles/Vol] 15 mmol/L Normal 10 - 20 [facility] Comment on above: Performed By: #### B MP #### [facility] [address] [place] [address] Calcium [Mass/Vol] 9.5 mg/dL Normal 8.6 - 10.6 [facility] Comment on above: Performed By: #### B MP #### [facility] [address] [place] [address] Chloride [Moles/Vol] 102 mmol/L Normal 98 - 107 [facility] Comment on above: Performed By: #### B MP #### [facility] [address] [place] [address] Creatinine [Mass/Vol] 0.98 mg/dL Normal 0.50 - 1.30 [facility] Comment on above: Performed By: #### B MP #### [facility] [address] [place] [address] GFR- AM. >60 Normal >60 [facility] Comment on above: Result Comment: CALC ULATIONS OF ESTIMATED GFR ARE PERFORMED USING THE MDRD STUDY EQUATION FOR THE IDMS-TRACEABLE CREATININE METHODS. CLIN CHEM 2007;53:766-72 Performed By: #### B MP #### [facility] [address] [place] [address] GFR-NON AM. >60 Normal >60 [facility] Comment on above: Performed By: #### B MP #### [facility] [address] [place] [address] Glucose [Mass/Vol] 133 mg/dL High 74 - 99 [facility] Comment on above: Performed By: #### B MP #### [facility] [address] [place] [address] HCO3 (Bld) [Moles/Vol] 24 mmol/L Normal 21 - 32 [facility] Comment on above: Performed By: #### B MP #### [facility] [address] [place] [address] Potassium [Moles/Vol] 4.3 mmol/L Normal 3.5 - 5.3 [facility] Comment on above: Performed By: #### B MP #### [facility] [address] [place] [address] Sodium [Moles/Vol] 137 mmol/L Normal 136 - 145 [facility] Comment on above: Performed By: #### B MP #### [facility] [address] [place] [address] Urea nitrogen [Mass/Vol] 17 mg/dL Normal 6 - 23 [facility] Comment on above: Performed By: #### B MP #### [facility] [address] [place] [address] CBCon 02-12-2021 Erythrocyte distribution width (RBC) [Ratio] 12.1 % Normal 11.5 - 14.5 [facility] Comment on above: Performed By: #### C BC #### [facility] [address] [place] [address] Hematocrit (Bld) [Volume fraction] 45.8 % Normal 41.0 - 52.0 [facility] Comment on above: Performed By: #### C BC #### [facility] [address] [place] [address] Hemoglobin (Bld) [Mass/Vol] 15.0 g/dL Normal 13.5 - 17.5 [facility] Comment on above: Performed By: #### C BC #### [facility] [address] [place] [address] MCHC (RBC) [Mass/Vol] 32.8 g/dL Normal 32.0 - 36.0 [facility] Comment on above: Performed By: #### C BC #### [facility] [address] [place] [address] MCV (RBC) [Entitic vol] 94 fL Normal 80 - 100 [facility] Comment on above: Performed By: #### C BC #### [facility] [address] [place] [address] NUCLEATED RBC 0.0 /100 WBC Normal 0.0-0.0 [facility] Comment on above: Performed By: #### C BC #### [facility] [address] [place] [address] Platelets (Bld) [#/Vol] 228 10*3/uL Normal 150 - 450 [facility] Comment on above: Performed By: #### C BC #### [facility] [address] [place] [address] RBC 4.85 x10E12/L Normal 4.50 - 5.90 [facility] Comment on above: Performed By: #### C BC #### [facility] [address] [place] [address] WBC (Bld) [#/Vol] 12.8 10*3/uL High 4.4 - 11.3 [facility] Comment on above: Performed By: #### C BC #### [facility] [address] [place] [address] Clinical Event Note-POCon Clinical Event Note-POC Clinical [...] Ferris MD Ochoa resident overnight Electronic Signatures: Nataliai Ferris ( (Resident)) (Signed 12-Feb-2021 00:41) Authored: Clinical Event Note Last Updated: 12-Feb-2021 00:41 by Nataliia Ferris ( (Resident)) Normal [facility] Daily Progress Note-Surgeryo n 02-12-2021 Daily [...] yet. Objective Data: Objective Information: T PRBPSpO2 Value35.80199490/8695% Date/Time02/12 6:4902/12 6:4902/12 6:4902/12 6:4910 6:49 Range(35.4C - 36.4C ) (77 - 99 ) (17 - 18 ) (127 - 147 )/ (86 - 91 ) (95% - 96% ) Pain reported at 02/12 2:54: 6 = Moderate ---- Intake and Output ----- Mn/Dy/Year TimeIntakeOutputNet Feb 12, 2021 6:00 [id number] Feb 11, 2021 10:00 [id number] The Intake and Output Totals for the last 24 hours are: IntakeOutputNet [id number] Physical Exam by System: Constitutional: Well developed, [...] Last Updated: 13-Feb-2021 10:13 by Daniel Caballero) [facility] Discharge Planning Bbzm1hs 0 02-12-2021 Discharge Planning Note2 Discharge Planning: Needs Prior to Discharge (ex. Home Care Orders, IV/O2 prescriptions) Follow up appointments Discharge Barriers (ex. Avoidable days, wait guardianship, pt refuse leave) None Planned Dispositionhome Discharge DestinationHome [facility] Superior of Choice Explainedyes preference Anticipated Discharge [id number] Discharge Planning 02/12/2021 0135 Discharge Plan Patient transferred from [place] [address] from PACU for diaphragm plication. Pt is A&O times 4. at 3 liters oxygen. Pt denies any medical corps officer use at home. 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 Pt have valuable belongings at bedside- see chart. No discharge plan a this time. Mary Beth Holcomb, SHAMIRN RN. 02/12/21 1317 Transitional Care Coordination Progress Note: Patient discussed during interdisciplinary rounds. Team members present: MD GOEVANNY Plan per Medical/Surgical team: Pt POD #1 for 1. laparoscopic L diaphragm plication;2. removal of bilateral diaphragm pacing wires;3. L pigtail chest tube placement. Plan for repeat chest xray today and wean O2 as tolerated, anticipate no home going needs when medically ready. Payer: Nabil Santana Status: Inpatient Discharge disposition: Home Potential Barriers: none ADOD: 02/12. packaging coordinator will continue to follow for discharge planning needs. Franny Gilliam RN, Transitional Hand I Thermal Cutter/TCC, pager [phone] Discharge note: 02/12/21 @ 1735: PT discharged home at this time. pts peripheral IV taken out prior to DC. pt given DC instructions. pt verbalized understanding. pt refused transport and walked downstairs with his son.---Erika stock RN Assessment: Discharge Planning Assessment [id number] Primary Contact Name and NumberAdam [phone](1) Stated Reason for Admissiondiaphragm plication(2) Arrived FromOR (2) Lives Withparent(s)(2) Living Arrangementshouse(2) Resource/Environmental Concernsnone(2) [facility]) Services Anticipated at Transitionnone(2) Discharge Documentation: Discharge/Transfer Date/Ewuc60-Iwx-8030 17:35 Discharge Modeambulatory Discharged Accompanied Byfamily member [...] Profile - Adult v2 12-Feb-2021 01:31 Normal [facility] Discharge [id number] 021 Discharge Profile2 Discharge Orders: Anticipated Discharge Date: Anticipated Discharge [id number] DNAR: DNAR Status: none Call Provider If [...] hemidiaphragm plication Call to Schedule in2 weeks [id number] Hilario Crawford [address] Phone [phone] Other Clinician Instructions: Other Instructions: Other Clinician [...] Appointments, Other Clinician Instructions, Gold Form - Bioinformatician Summary Last Updated: 12-Feb-2021 15:27 by Jim Faith ( (Resident)) Normal [facility] Laboratory - Chemistry and C hemistry - challengeon 02-12-2021 Anion gap [Moles/Vol] 15 mmol/L 10 - 20 TS-Uxcjoll-I [employer] [address] Work Phone: Calcium [Mass/Vol] 9.5 mg/dL 8.6 - 10.6 MG-Tino raysa-G [employer] [address] Work Phone: Chloride [Moles/Vol] 102 mmol/L 98 - 107 MO-Zppqpun-M [employer]n [employer] [address] Work Phone: CO2 [Moles/Vol] 24 mmol/L 21 - 32 MG-Surger y-G [address]Fusion[address] Work Phone: Creatinine [Mass/Vol] 0.98 mg/dL See Below LK-Ygzujja-X [address] Work Phone: Comment on above: Reference Range: 0.5 0 - 1.30 Glucose [Mass/Vol] 133 mg/dL above high threshold 74 - 99 DX-Gfjqtop-L [address] Work Phone: [phone] Potassium [Moles/Vol] 4.3 mmol/L 3.5 - 5.3 XM-Gzpdtoj-D [address] Work Phone: [phone] Sodium [Moles/Vol] 137 mmol/L 136 - 145 MG-Tino raysa-G [facility] Work Phone: [phone] Urea nitrogen [Mass/Vol] 17 mg/dL 6 - 23 KL-Ebtszyv-S [facility] [address] Work Phone: [phone] Laboratory - Hematology and Cell countson 02-12-2021 Erythrocyte distribution width (RBC) [Ratio] 12.1 % See Below XF-Lmzeigk-U [facility] [address] Work Phone: [phone] Comment on above: Reference Range: 11. 5 - 14.5 Hematocrit (Bld) [Volume fraction] 45.8 % See Below EL-Ymcniul-I [address] Work Phone: [phone] Comment on above: Reference Range: 41. 0 - 52.0 Hemoglobin (Bld) [Mass/Vol] 15.0 g/dL See Below XY-Nifzraf-W [address] Work Phone: [phone] Comment on above: Reference Range: 13. 5 - 17.5 MCHC (RBC) [Mass/Vol] 32.8 g/dL See Below NY-Jxomchy-Z [address] Work Phone: [phone] Comment on above: Reference Range: 32. 0 - 36.0 MCV (RBC) [Entitic vol] 94 fL 80 - 100 QT-Mk[address]iu-O [address] Work Phone: [phone] Platelets (Bld) [#/Vol] 228 10*3/uL 150 - 450 XX-Vwinyhz-Q [facility] Work Phone: [phone] RBC (Bld) [#/Vol] 4.85 {x10E12/L} See Below MG -Surgery-G [address] Work Phone: Comment on above: Reference Range: 4.5 0 - 5.90 WBC (Bld) [#/Vol] 12.8 10*3/uL above high threshold 4.4 - 11.3 TI-Czpyxsw-Q [address] Work Phone: No Panel Informationon 02-12 >60 >60 UU-Snlmvzz-A [address] Work Phone: Comment on [...] tab(s) orally 2 times a day Normal [facility] Patient Profile - Adult v2on 02-12-2021 Patient Profile - Adult v2 Profile: Initial Info: How to be AddressedDel(1) Spoken Language PreferredEnglish (1) Stated Reason for Admissiondiaphragm plication Patient Belongingsremains with patient Patient Belongings Remaining with Patientcash/credit card; clothing Arrived FromOR Medications Brought to Hospitalno Are you currently using the Personal Electronic Health Record or [employer]no (1) Wants Family/Rep Notified of Admissionyes, primary contact Notify PCPnotify PCP Informed of Patient Visiting Rightsyes General Health: Blood Avoidance/Restrictionsnone (1) Previous Transfusion Reactionno(2) Weight in kg109.8 kilogram(s)(3) Weight in nty396 pound(s) Weight Methodactual (measured) (3) Scale Typestanding [...] Last Updated: 12-Feb-2021 01:34 by Mary Beth Holcobm (ASIA) References: 1. Data Referenced From Patient Profile - Preop v2 11-Feb-2021 12:02 2. Data Referenced From Patient Profile - Adult v2 12-Dec-2017 16:00 3. Data Referenced From 1. Vital Signs 11-Feb-2021 12:02 Normal [facility] Radiologyon 02-12-2021 XR Chest Single view Normal VK-Nlvsknv-L [address] Work Phone: XR Chest Single view Normal PH-Tsifkkb-S [address] Work Phone: XR Chest Single view Normal CR-Xshwycl-C [address] Work Phone: TH CHEST 1 VIEWon 02-12-2021 TH CHEST 1 VIEW Patient Name: RIGO JEFFERSON STUDY: CHEST 1 VIEW; 02/12/2021 4:27 pm INDICATION: chest tube removal. COMPARISON: Prior 11:07 a.m. radiograph. ACCESSION NUMBER(S): [id number] ORDERING CLINICIAN: JIM FAITH FINDINGS: Left basilar [...] Electronically signed by: МАРИНА MARCELO MD Normal [facility] TH CHEST 1 VIEW Patient Name: RIGO JEFFERSON STUDY: CHEST 1 VIEW; 02/12/2021 11:58 am INDICATION: chest tube wet seal. COMPARISON: 7:02 a.m. radiograph. ACCESSION NUMBER(S): [id number] ORDERING CLINICIAN: JIM FAITH FINDINGS: Left basilar [...] Electronically signed by: МАРИНА MARCELO MD Normal [facility] TH CHEST 1 VIEW Patient Name: RIGO JEFFERSON STUDY: CHEST 1 VIEW; 02/12/2021 7:13 am INDICATION: POD 1 s/p diaphragm plication. COMPARISON: 02/11/2021. ACCESSION NUMBER(S): [id number] ORDERING CLINICIAN: JANE YO FINDINGS: Left basilar [...] effusion. Electronically signed by: МАРИНА MARCELO MD [facility] No Panel Informationon 02-11 [place] [address] Work Phone: Operative Reports - [facility] [place]ative [place] [address] Patient Name: RIGO JEFFERSON : 1960 Date of Service: 02/11/2021 Patient Location: [place] [address] Patient Type: I Surgeon: Daniel Caballero MD Report Type: Operative Reports PREOPERATIVE DIAGNOSIS: Chronic respiratory failure, left diaphragm dysfunction. POSTOPERATIVE DIAGNOSIS: Chronic respiratory failure, left diaphragm dysfunction. OPERATION/PROCEDURE: Laparoscopic left diaphragm plication with removal of previous diaphragm pacing wires. SURGEON: Daniel Caballero MD LEAK GANG SUPERVISOR(S): Jane Yo MD. There was no available resident. ANESTHESIA: LOCATION: [facility]. CLINICAL NOTE: This is a patient with [...] TT: 02/12/2021 12:44 PM EST DICTATION NUMBER: [id number] BRIE JOB NUMBER: [id number] CC: PT STATES NONE PCP Electronic Signatures: Daniel Caballero) (Signed on 13-Feb-2021 10:15) Authored Unsigned, Draft (SYS GENERATED) (Entered on 12-Feb-2021 12:44) Entered Last Updated: 13-Feb-2021 10:15 by Daniel Caballero) Normal [facility] Order Reconciliationon 02-11 Order Reconciliation Page 1 Admission Reconciliation Document Reconciliation Type: Admission from OR requested on behalf of Jane Yo (Physician) done by Jane Yo) Admission from OR - Reconciliation: 11-Feb-2021 18:31 by: Jane Yo) Home MedicationsEnteredLast Dose TakenReconciled with current Order Reconciliation Comment/ Additional Information Kristina 24 Hour Allergy oral tablet 1 tab(s) orally once a [id number]-Feb-2021 AM Reviewed and Held clarithromycin 250 mg oral tablet 250 milligram(s) orally once a day Clarithromycin Tablet (BIAXIN)DOSE = 250 mg Oral Every 24 Hoursclarithromycin 250 mg oral tablet continued as the inpatient order Clarithromycin diclofenac sodium 50 mg oral delayed release tablet 1 tab(s) orally 2 times a [id number]-[id number]-Cay-1908 AM Reviewed and Held oxycodone-acetaminophen 5 mg-300 mg oral tablet 1 tab(s) orally 2 times a day [id number] AM Reviewed and Held Additional Current Orders [...] 15 minute(s)Clinician Notes: Carlota-operative order ONLY Normal [facility] Patient Profile - Preop v2on 02-11-2021 Patient Profile - Preop v2 Profile: Initial Info: How to be AddressedDel(1) Spoken Language PreferredEnglish (1) Source of Informationpatient Are you currently using the Personal Electronic Health Record or [employer] Systemsno (1) Are you interested in learning more about [facility] for the management of your healthnot at this time Stated Reason for AdmissionL pulling of wires/pulling lung down Primary Contact Name and NumberSahil [phone] Patient Belongingspatient educated regarding responsibility for personal items Medications Brought to Hospitalno General Health: Weight in kg109.8 kilogram(s) Weight in jkw397 pound(s) Weight Methodactual (measured) Scale Typestanding Height [...] Learning Preferencesverbal instruction Cultural Considerationsnone Developmental Considerationsnone Holiness Considerationsnone Other learner availableno Falls RiskPatient location auto qualifies him/her for HIGH RISK. Are there any cultural, spiritual, scientology practices/values/needs that are important for us to [...] Profile - Adult v2 12-Dec-2017 16:00 Normal [facility] Preop Checkliston 02-11-2021 Preop Checklist Preop Checklist: Preop Checklist: Arrival [id number] Arrival Time11:48 Procedure TypeL laparoscopic diaphragm plication Temperature C36.1 degrees C Temperature F96.9 degrees F Heart Rate70 beats per minute Respiratory Rate12 breath per minute Blood Pressure Vgyueqzm061 mm/Hg Blood Pressure Yjmkaxauq49 mm/Hg NPO Oxdsyo28-Qiq-1769 00:00 ID Band Onyes Allergy Bandno known [...] 11-Feb-2021 12:02 by Jany Ann (RN) Normal [facility] Radiologyon 02-11-2021 XR Chest Single view Please click on the link to view the study images Normal [place] [address] Work Phone: [facility] Surgical Pathology Depar tmenton 02-11-2021 [facility] Surgical Pathology Department Name RIGO JEFFERSON Pathologist: JACINTO MURRIETA MD Date of Procedure: 02/11/2021 Date Received: 02/12/2021 Date Reported 02/19/2021 Submitting Physician: DANIEL CABALLERO M.D. Location: [facility] Copy To/Referring/Attending: DANIEL CABALLERO M.D. Other External [...] this case. Clinical History: Physician Contact Number: [id number] Fixative (A): Fresh Clinical Diagnosis History: disorders of diaphragm Specimens Submitted As: A: PACING WIRE Gross Description: Received in formalin, labeled with the patient's name and hospital number, are multiple wires with a piece of adipose tissue attached measuring 3.0 x 1.6 x 1.0 cm. A photograph is taken. The attached soft tissue is submitted entirely in one cassette. EXB exb/02/12/2021 [facility] Department of Pathology [id number] [place] [address] Normal [facility] Comment on above: Performed By: #### U HCS ####[facility] Surgical Pathology [address] [place] [address] CORONAVIRUS 2019, SCREEN ASY MPTOMATICon 02-10-2021 SARS-CoV-2 (COVID-19) RNA BECCA+probe Ql (Unsp spec) Not detected Normal Not Detected [facility] Comment on above: Result Comment: . [...] patient management decisions. Fact sheet for providers: https://www.fda.gov/media/977492/download Fact sheet for patients: https://www.fda.gov/media/345307/download This test has received FDA Emergency Use Authorization (EUA) and has been verified by [facility] ([facility]). This test is only authorized for the duration of time that circumstances exist to justify the authorization of the emergency use of in vitro diagnostic tests for the detection of SARS-CoV-2 virus and/or diagnosis of COVID-19 infection under section 564(b)(1) of the Act, 21 U.S.C. 360bbb-3(b)(1), unless the authorization is terminated or revoked sooner. [facility] is certified under CLIA-88 as qualified to perform high complexity testing. Testing is performed in the [facility] laboratories located at [address] [place] [address]. Performed By: #### C OVSC #### [place] [address] Covid 19 Resultson SARS-CoV-2 (COVID-19) RNA BECCA+probe [...] You may also be contacted by the [facility] to see if any of your [...] or Naproxen (Aleve) can also be used. Vsgo-sev-wlzmnyy cough and cold medicines can be used according to the instructions on the package. Some memh-wxj-pkmzhyu medicines also contain acetaminophen. Make sure you [...] water are not available, use alcohol-based hand director of federal sales. Avoid touching your eyes, nose, and mouth [...] 24 alem (more content not included)... Normal [facility] CORONAVIRUS 2019, SCREEN ASY MPTOMATICon 02-09-2021 Lab Specimen Source Nasal, Nasopharyngeal Normal [facility] Comment on above: Performed By: #### C OVSC #### [facility] [id number] [place] [address]. [place] [address] Coronavirus 2019 RNA by PCR, Screening Asymptomticon 02-09-2021 Coronavirus 2019 RNA by PCR, Screening Asymptomtic Not detected Normal See Below VC-Yummmod-T [address] Work Phone: Comment on [...] make patient management decisions.Fact sheet for providers: https://www.fda.gov/media/084234/downloadFact sheet for patients: https://www.fda.gov/media/294182/downloadThis test has received FDA Emergency Use Authorization (EUA) and has been verified by [facility] ([facility]). This test is only authorized for the duration of time that circumstances exist to justify the authorization of the emergency use of in vitro diagnostic tests for the detection of SARS-CoV-2 virus and/or diagnosis of COVID-19 infection under section 564(b)(1) of the Act, 21 U.S.C. 360bbb-3(b)(1), unless the authorization is terminated or revoked sooner. [facility] is certified under CLIA-88 as qualified to perform high complexity testing. Testing is performed in the [facility] laboratories located at [address] [place] [address]. BASIC METABOLIC PANELon 05-2 Anion gap [Moles/Vol] 13 mmol/L Normal 10 - 20 [facility] Comment on above: Performed By: #### B MP ####[id number] [place] [address] Calcium [Mass/Vol] 9.7 mg/dL Normal 8.6 - 10.6 [facility] Comment on above: Performed By: #### B MP ####[id number] [place] [address] Chloride [Moles/Vol] 108 mmol/L High 98 - 107 [facility] Comment on above: Performed By: #### B MP ####[id number] [place] [address] Creatinine [Mass/Vol] 1.04 mg/dL Normal 0.50 - 1.30 [facility] Comment on above: Performed By: #### B MP ####[id number] [place] [address] GFR- AM. >60 Normal >60 [facility] Comment on above: Result Comment: CALC ULATIONS OF ESTIMATED GFR ARE PERFORMED USING THE MDRD STUDY EQUATION FOR THE IDMS-TRACEABLE CREATININE METHODS. CLIN CHEM 2007;53:766-72 Performed By: #### B MP ####[id number] [place] [address] GFR-NON AM. >60 Normal >60 [facility] Comment on above: Performed By: #### B MP ####[id number] [place] [address] Glucose [Mass/Vol] 91 mg/dL Normal 74 - 99 [facility] Comment on above: Performed By: #### B MP ####[id number] [place] [address] HCO3 (Bld) [Moles/Vol] 29 mmol/L Normal 21 - 32 [facility] Comment on above: Performed By: #### B MP ####[id number] [place] [address] Potassium [Moles/Vol] 4.6 mmol/L Normal 3.5 - 5.3 [facility] Comment on above: Performed By: #### B MP ####[id number] [place] [address] Sodium [Moles/Vol] 145 mmol/L Normal 136 - 145 [facility] Comment on above: Performed By: #### B MP ####[id number] [place] [address] Urea nitrogen [Mass/Vol] 13 mg/dL Normal 6 - 23 [facility] Comment on above: Performed By: #### B MP ####[id number] [place] [address] CBCon 01-27-2021 Erythrocyte distribution width (RBC) [Ratio] 12.2 % Normal 11.5 - 14.5 [facility] Comment on above: Performed By: #### C BC ####[id number] [place] [address] Hematocrit (Bld) [Volume fraction] 46.7 % Normal 41.0 - 52.0 [facility] Comment on above: Performed By: #### C BC ####[id number] [place] [address] Hemoglobin (Bld) [Mass/Vol] 15.1 g/dL Normal 13.5 - 17.5 [facility] Comment on above: Performed By: #### C BC ####[id number] [place] [address] MCHC (RBC) [Mass/Vol] 32.3 g/dL Normal 32.0 - 36.0 [facility] Comment on above: Performed By: #### C BC ####[id number] [place] [address] MCV (RBC) [Entitic vol] 96 fL Normal 80 - 100 [facility] Comment on above: Performed By: #### C BC ####[id number] [place] [address] NUCLEATED RBC 0.0 /100 WBC Normal 0.0-0.0 [facility] Comment on above: Performed By: #### C BC ####[id number] [place] [address] Platelets (Bld) [#/Vol] 209 10*3/uL Normal 150 - 450 [facility] Comment on above: Performed By: #### C BC ####[id number] [place] [address] RBC 4.85 x10E12/L Normal 4.50 - 5.90 [facility] Comment on above: Performed By: #### C BC ####[id number] [place] [address] WBC (Bld) [#/Vol] 7.2 10*3/uL Normal 4.4 - 11.3 [facility] Comment on above: Performed By: #### C BC ####[id number] [place] [address] Follow Up (General Surgery)o n 01-27-2021 Follow [...] EKG; Status:Hold For - Scheduling; Requested for:27Jan2021; Perform:[facility] [place] 1800; Due:27Apr2021;Ordered; For:Diaphragm dysfunction, [...] L1, routine follow up. History of Present IllnessMrNeo Jefferson came in today accompanied by his son. 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 He was turning the device off 1-2 [...] MG Oral Tablet Vitals Vital Signs Recorded: [id number] 11:12AM Frzlhufkhyg23.1 F Heart Rate77 Hoixlvbb212 Iuajvcryu37 Pzragr915 lb BMI Ouzwgcmamp75.64 kg/m2 BSA Calculated2.33 Tobacco Useb) No Physical [...] the r (more content not included)... Normal [employer] No Panel Informationon 01-27 [email or web address] [email or web address] [email or web address]?R [email or web address]?Sherita [id number]&Date=&Time=13%3a24%3a34%3a 00&TestType=ECG&Site=1&Out putType=PDF&Ext=PDF UW-Wsgjvke-[address] Work Phone: Normal sinus rhythm MG-Ramos rgery-[address] Work Phone: Normal BC-Vedahnj-[address] Work Phone: [phone] ZO-Fthemmc-[address] Work Phone: [phone] UB-Glkddln-[address] Work Phone: [phone] 1 MX-Wjusclk-[address] Work Phone: [phone] 1 CZ-Vrwspeu-[address] Work Phone: [phone] 1 DL-Zdxmixu-[address] Work Phone: 11 1 ER-Qianmsr-[address] Work Phone: [phone] WU-Nckzfqw-[address] Work Phone: 26 1 FX-Keqhyqt-[address] Work Phone: 40 1 KX-Ugnnvyl-[address] Work Phone: [phone] KQ-Bslixbd-[address] Work Phone: [phone] [address] IV-Oonlkwb-[address] Work Phone: [phone] 1 KE-Lqjeczq-J [address] Work Phone: 154 1 GJ-Lmbpqed-[address] Work Phone: 70 1 MP-Xylbqyw-[address] Work Phone: Radiologyon 01-27-2021 XR Chest 2 Views Normal MG-Surge ry-[address] Work Phone: TH CHEST 2 VIEW PA AND LATon 01-27-2021 TH CHEST 2 VIEW PA AND LAT Patient Name: RIGO JEFFERSON STUDY: TH CHEST 2 VIEW PA AND LAT; 01/27/2021 11:00 am INDICATION: chronic hypoventilation. COMPARISON: Chest radiograph 04/03/2019 ACCESSION NUMBER(S): [id number] ORDERING CLINICIAN: DANIEL CABALLERO FINDINGS: Inspiratory and [...] Electronically signed by: ANGI CAICEDO MD Normal [facility] Tobacco Screening.on 021 Tobacco use status CP b) No EW-Rfhdayl-[address] Work Phone: Tobacco Screening. b) No MG-Tino raysa-[address] Work Phone: Otheron 04-03-2019 XR Chest 2 views Interpreted by: ISAK04/03/19 14:06MRN: [id number] Name: RIGO JEFFERSON STUDY:CHEST 2 VIEW PA [...] Electronically signed by: ISAK 04/03/19 14:06 Normal SY-Uhbnhvb-[address] Work Phone: Vital Signs Date Time Vital Sign Value Performing Clinician Facility 02-12-2021 14:10-0400 SaO2% (BldA) [Mass fraction] 95 % No Pcp Required [facility] 02-12-2021 14:00-0400 Body temperature 97.16 [degF] No Pcp Required [facility] 02-12-2021 14:00-0400 Diastolic blood pressure 83 mm[Hg] No Pcp Required [facility] 02-12-2021 14:00-0400 Heart rate 81 /min No Pcp Required [facility] 02-12-2021 14:00-0400 Respiratory rate 18 /min No Pcp Required [facility] 02-12-2021 14:00-0400 Systolic blood pressure 131 mm[Hg] No Pcp Required [facility] 02-12-2021 03:31-0400 Body height 182.8 cm No Pcp Required [facility] 02-12-2021 03:31-0400 Body weight 109.8 kg No Pcp Required [facility] 01-27-2021 11:12-0400 Body mass index (BMI) [Ratio] 33.64 kg/m2 Daniel Caballero MD Work Phone: HW-Jfexgqw-[address] Work Phone: 01-27-2021 11:12-0400 Body surface area Derived from formula 2.33 m2 Daniel Caballero MD Work Phone: UU-Seqjkzb-[address] Work Phone: 01-27-2021 11:12-0400 Body temperature 96.1 [degF] Daniel Caballero MD Work Phone: OV-Sreygib-[address] Work Phone: 01-27-2021 11:12-0400 Body weight 112.49 kg Daniel Caballero MD Work Phone: HB-Tsu[address] Work Phone: 01-27-2021 11:12-0400 Diastolic blood pressure 85 mm[Hg] Daniel Caballero MD Work Phone: ZC-Ealliru-[address] Work Phone: 01-27-2021 11:12-0400 Heart rate 77 /min Daniel Caballero MD Work Phone: YB-Capxxle-[address] Work Phone: 01-27-2021 11:12-0400 Systolic blood pressure 157 mm[Hg] Daniel Caballero MD Work Phone: XX-Vagqctf-D[address] Work Phone: 04-03-2019 15:37-0400 BMI (Body Mass Index) 30.11 kg/m2 Chandan De Land MG-Surgery -[place] [address] Work Phone: 04-03-2019 15:37-0400 Body Temperature 97.9 [degF] Chandan De Land SP-Ikuhnvp-[address] Work Phone: 04-03-2019 15:37-0400 Body weight 100.7 kg Chandan Travon JX-Gfuzxag-Tof[address]99 Work Phone: 04-03-2019 15:37-0400 BP Diastolic 74 mm[Hg] Chandan De Land QC-Myinaht-Cbcbt ll 2099 Work Phone: 04-03-2019 15:37-0400 BP Systolic 121 mm[Hg] Chandan De Land DX-Sjxjszt-Nrxii ll 2099 Work Phone: 04-03-2019 15:37-0400 BSA (Body Surface Area) 2.23 m2 Chandan De Land GM-Rlobqlw-Klnhggh 2099 Work Phone: 04-03-2019 15:37-0400 Height 182.88 cm Chandan Travon ZA-Gkbrdpv-Cmzjr ll 2099 Work Phone: 04-03-2019 15:37-0400 Pulse (Heart Rate) 58 /min Chandan Travon PD-Enyvvjl-[address] 2[address] Work Phone: Encounters Encounter Date [...] related to original px No PCP None IO-Jdpkeox-[address] Work Phone: Start: 02-20-2021 Chart Update No PCP None MG-Surgery -[address] Work Phone: Start: 02-11-2021 End: 02-12-2021 Evaluation and management of inpatient Daniel Onders [facility] Rm 5511 01 Start: 01-27-2021 Chart Update Daniel Caballero MD Work Phone: YT-Meuyram-[address] Work Phone: Start: 04-03-2019 Patient encounter procedure Chandan Cool IX-Qjmashn-[address] Work Phone: Start: 01-12-2018 Patient encounter procedure Chandan Cool KS-Dhxtrhe-[address] Work Phone: Start: 11-28-2017 Patient encounter procedure Chandan Cool JE-Ofwhkyc-[address] Work Phone: Start: 11-28-2017 Patient encounter procedure Chandan Cool BA-Ikqamvg-[address] Work Phone: Procedures Date Procedure [...] End: 11-Feb-2022 Ordered: 11-Feb-2021 Jane Yo Intent [facility] Payers Date Payer Category Payer Unknown [id number] 2018 Unknown 1960 Medicare [id number] 1960 Unknown [id number] 2.16.84 [id number] 1959 Unknown [id number] 2.16.84 0.1.560904.3.579.2.593 1959 Unknown [id number] 2.16.84 0.1.512144.3.579.2.593 1959 Unknown [id number] 2.16.84 0.1.628014.3.579.2.593 1959 Unknown [id number] 2.16.84 0.1.591418.3.579.2.593 1959 Unknown [id number] 2.16.84 0.1.600251.3.579.2.593 1959 Unknown [id number] 2.16.84 0.1.315511.3.579.2.593 1959 Unknown [id number] 2.16.84 0.1.325810.3.579.2.593 1959 Unknown [id number] 2.16.84 0.1.172259.3.579.2.593 1959 Unknown [id number] 2.16.84 0.1.631260.3.579.2.593 1959 Unknown [id number] 2.16.84 0.1.332826.3.579.2.1259 1959 Unknown [id number] 2.16.84 0.1.504645.3.579.2.1259 1959 Unknown [id number] 2.16.84 0.1.990596.3.579.2.1259 1959 Unknown [id number] 2.16.840 .[id number] Social History Date Type Detail Facility Former smoker Former smoker FW-Ogsxpcu-[address]q [address] Work Phone: Tobacco smoking consumption unknown [facility] NEGATED: Highlighted row - - MG- Surgery-[address] Work Phone: Functional Status Date Assessment Result Facility Functional observable [facility] NEGATED: Highlighted row Functional performance Functional status health issues are not documented Disease IR-Tipbljv-[address] Work Phone: Mental Status Date Assessment Result Facility 02-12-2021 Cognitive functi ons [id number] [facility] NEGATED: Highlighted row Cognitive function [Interpretation] Cognitive status health issues are not documented Disease RG-Selnrvx-[address] Work Phone: Clinical Notes 02-11-2021 [...] our patients to inform us about any jkjq-ocg-ptmncza medications or herbal remedies/nutritional supplements/alternative remedies. 2. [...] options with their primary care provider. [facility] 11-25-2022 Note CONSULTATION CONSULTATION DATE: 11/25/2022 TO: [...] of his shoulders, bilaterally, without contrast. [facility] 09-03-2022 Note CONSULTATION CONSULTATION DATE: 09/03/2022 HISTORY [...] three months' time, unless otherwise indicated. [facility] 06-01-2022 Note CONSULTATION CONSULTATION DATE: 06/01/2022 CHIEF [...] three months. CC: Shaikh Romero M.D. [facility] 05-18-2022 Note CONSULTATION CONSULTATION DATE: 05/18/2022 HISTORY [...] to proceed. CC: Shaikh Romero M.D. [facility] 05-18-2022 Note CONSULTATION PROCEDURE DATE: 05/18/2022 PREOPERATIVE [...] be followed up in the office. [facility] 04-29-2022 Note CONSULTATION CONSULTATION DATE: 04/29/2022 HISTORY [...] for his injections with Dr. Duncan. [facility] 01-27-2022 Note CONSULTATION CONSULTATION DATE: 01/27/2022 HISTORY [...] in three month's time, unless otherwise indicated. [facility] Signed and Approved by: RAVINDER ANDERSEN . 02/04/2022 16:12:00 [facility] 02-12-2021 Note Send Summary: Discharge Summary [...] at Discharge: .Home Vital Signs: T PRBPSpO2 Value36.33062670/8395% Date/Time02/12 12: 12: 12: 12: 12:10 Range(35.4C - 36.4C ) (77 - 99 ) (17 - 18 ) (127 - 147 )/ (83 - 91 ) (92% - 96% ) As of 12-Feb-2021 12:10:00, patient is on 2 L/min of oxygen Date: Weight/Scale Type:Height: 12-Feb-2021 01:22782.8 kg / ozsoficb803.8 cm Hospital Course: 60 yo male with [...] Call to Schedule in: 2 weeks Location: [address] [place] [address] Discharge Medications: Home Medication clarithromycin 250 mg [...] Last Updated: 13-Feb-2021 10:13 by Daniel Caballero) [facility] 02-11-2021 Note Post Operative Note: PreOp Diagnosis: diaphragm paralysis Post-Procedure Diagnosis: same Procedure: 1. laparoscopic L diaphragm plication 2. removal of bilateral diaphragm pacing wires 3. L pigtail chest tube placement Surgeon: Dr Daniel Caballero Resident/Fellow/Other Culinary Arts Teacher: Dr Jane Yo Anesthesia: GETA Estimated Blood [...] Last Updated: 12-Feb-2021 07:53 by Daniel Caballero) [facility] 02-11-2021 Note History & Physical R [...] Last Updated: 11-Feb-2021 15:50 by Daniel Caballero) [facility] Chief complaint Narrative - Reported An interactive audio and video telecommunication system which permits real time communications between the patient (at the originating site) and provider (at the distant site) was utilized to provide this telehealth service.Post op YX-Xduq[address] Work Phone: Evaluation note Constitutional: Well developed, awake/alert/oriented x3, no distress, alert and cooperativeSkin: warm and dryEyes: PERRL, EOMI, clear scleraENMT: MMMHead/Neck: NCATRespiratory/Thorax: good chest expansion, thorax symmetricCardiovascular: RRRGastrointestinal: Nondistended, soft, non-tender, no rebound tenderness or guardingMusculoskeletal: moves all extremitiesExtremities: well perfusedNeurological: grossly intactPsychological: Appropriate mood and behavior [facility] History of Present illness Narrative He [...] not he wants to follow-up with a fermenting cellars receiver in our system. [place] [address] Work Phone: Hospital Discharge instructions Call Provider [...] weekFollow Up Appointment 2:Physician/Dept/Service: Dr. Caballero - [facility] for Referral: hospital follow-up / diaphragm pacer removal, hemidiaphragm plicationLocation: [address] [address] Number: [phone] Form - Other Clinicians:Other Clinician Instructions: Please take your medications as directed. Please follow-up with Dr. Caballero and with your PCP as directed. You may remove dressings and shower Tuesday. No heavy lifting >20lbs or strenours activity for 3 weeks. If your symptoms return or worsen, please seek medical attention. Thank you for allowing us to participate in your care. [facility] Family History No Family History Records [...] section and content) DATE CREATED AUTHOR 04/04/2021 [employer] DATE CREATED AUTHOR AUTHOR'S ORGANIZ ATION 04/08/2021 [facility] DATE CREATED AUTHOR AUTHOR'S ORGANIZ ATION 12/31/2022 [facility] DATE CREATED AUTHOR AUTHOR'S ORGANIZ ATION 11/24/2023 [facility] Specialists [facility] FOR RECORDS PERTAINING TO PATIENTS WHO ARE [...] BE BASED ON THE PRIMARY CLINICAL RECORDS. [employer] [facility]. provides no warranty or guarantee of the accuracy or completeness of information in this document.
== END 2023-12-03 11:40 | disposition home or self-care (01) ==
LOC: RAD 11:40
PROVIDERS: PCP Internal Medicine; Visit Provider Nurse Practitioner
DX: M25.562 Pain in left knee (principal); M25.551 Pain in right hip; M25.552 Pain in left hip; M17.12 Unilateral primary osteoarthritis, left knee
CPT/HCPCS: 73522; 73564

== ENCOUNTER 2023-12-06 11:06 | Outpatient (OUT) | payer OTHER, SELFPAY ==
--- NOTE | 2023-12-06 | CONS_ITS ---
PROCEDURE DATE: 12/06/2023 PROCEDURE: Left trapezius and left levator scapulae trigger point injection performed in the office. PREOPERATIVE DIAGNOSIS: Pain secondary to myofascial spasm and dysfunction of the left trapezius and left levator scapulae. POSTOPERATIVE DIAGNOSIS: Pain secondary to myofascial spasm and dysfunction of the left trapezius and left levator scapulae. SOLUTION USED FOR INJECTION: 2 mL of 2% lidocaine, 2 mL of 0.25% Marcaine and 10 mg of Kenalog, a total of 5 mL, and 2.5 mL used for injection into each muscle group. IMMEDIATE COMPLICATIONS: None. PROCEDURE: After informed consent was obtained from the patient, placed in the sitting position. Skin overlying the area was prepped with alcohol. A 25 gauge, 1 ?? needle was inserted into the substance of the left trapezius at the level of C6 spinous process. Needle tip was advanced until there was a mild twitch response. No indication of intravascular or intraneural or intrapleural needle tip placement. 2.5 mL of solution was injected. This was done in a similar fashion into the left levator scapulae muscle. No evidence of post procedure pneumothorax was noted. Patient did report reduction in his pain symptoms post procedurally. DAVID
--- NOTE | 2023-12-06 | CONS_ITS ---
CONSULTATION DATE: 12/06/2023 HISTORY: He returns today complaining of pain in his left hip area. He reports the pain as being 5-7/10 pain, describes it as sharp in character, increased with activities such as standing, walking and performing transitioning maneuvers. He feels most comfortable in the semi-recumbent position. He denies any change in bowel and bladder habits or new sensorimotor changes in the lower extremities. PHYSICAL EXAM: Notable for patient having no clinical radiculopathy or myelopathy involving his lower extremities. He did have a positive left sided FABERE?s sign and significant myofascial spasm along the left gluteus medius. IMPRESSION: Our impression is patient with chronic pain secondary to left hip osteoarthrosis. RECOMMENDATIONS: I have recommended a left hip injection under fluoroscopic guidance. On today?s visit, he was scheduled to undergo a left trapezius and left levator scapulae trigger point injection; however, during the examination process of his left shoulder, he was complaining of quite a bit of left hip and thus the need for further evaluation of the same. We also did review his x-ray of his left hip joint as well, and we discussed this in detail. Gone over the details of the procedure with the patient, all of his question were answered, he agrees to proceed with the outlined plan. As part of providing excellent, safe, comprehensive care, the following was completed at our patient's visit: 1. A medication reconciliation and review to ensure accurate knowledge of current/active medications, including asking our patients to inform us about any jtpe-vmw-tqdpmnz medications or herbal remedies/nutritional supplements/alternative remedies. 2. A review to specifically ensure our patients have had annual screening for: elevated body mass index (BMI, see intake chart for exact total), tobacco use, screening for depression, and screening for unhealthy alcohol use. When screening is concerning, patients are provided with education and the specific recommendation to discuss the concerning health issue and treatment options with their primary care provider. DAVID
== END 2023-12-06 11:07 | disposition home or self-care (01) ==
LOC: PM 11:06
PROVIDERS: PCP Internal Medicine; Visit Provider Anesthesiology Pain Medicine
DX: M79.18 Myalgia, other site (principal); M25.552 Pain in left hip; M16.12 Unilateral primary osteoarthritis, left hip
CPT/HCPCS: 20552

== ENCOUNTER 2023-12-20 07:15 | Day surgery (SDC) | payer OTHER, SELFPAY ==
--- OUTSIDE RECORDS SUMMARY | 2023-12-20 07:18 | XMS_ITS | CCD ---
Author Organization [facility] Care Team Providers Care Industrial Management Teacher Name Role Phone Chandan Cool Unavailable Unavailable Sid Ac Unavailable Unavailable Required, No Pcp Unavailable Unavailable Daniel Caballero Unavailable None, No PCP Unavailable [facility] Primary Care Unavailable WEST, DR RADHA Gaxiola Consulting Unavailable DUNCAN ., DR LLUVIA Sheldon Attending Unavailable DUNCAN ., DR LLUVIA Sheldon Admitting Unavailable DUNCAN ., DR LLUVIA Sheldon Consulting [facility] Primary Care Unavailable DUNCAN ., DR LLUVIA Sheldon Attending Unavailable DUNCAN ., DR LLUVIA Sheldon Consulting Unavailable DUNCAN ., DR LLUVIA Sheldon Admitting Unavailable FAWIND, [facility] Primary Care Unavailable DUNCAN ., DR LLUVIA Sheldon Attending Unavailable DUNCAN ., DR LLUVIA Sheldon Consulting Unavailable DUNCAN ., DR LLUVIA Sheldon Admitting [facility] Primary Care Unavailable ANDERSEN .RAVINDER Consulting Unavailable DUNCAN ., DR LLUVIA Sheldon Admitting Unavailable DUNCAN ., DR LLUVIA Sheldon Attending [facility] Primary Care Unavailable ANDERSEN ., RAVINDER Consulting Unavailable DUNCAN ., DR LLUVIA Sheldon Admitting Unavailable DUNCAN ., DR LLUVIA Sheldon Attending [facility]available [facility] Primary Care Unavailable LAKSHMIPATHY ., NARENDRANATH Attending [...] KARTHIK Attending Nadira vailable RINA, DR DOMINGA iWlliam Consulting Unavailable LAKSHMIPATHY ., KARTHIK Admitting Nadira [...] by: DOMINGA FLYNN Date: 2022-12-08 10:25 Normal [facility] MRI SHOULDER RT WO CONon MRI [...] by: DOMINGA FLYNN Date: 2022-12-08 10:35 Normal [facility] XR CSPINE OBL FLEX_EXTon XR CSPINE [...] RADHA DIAZ Date: 2022-05-31 20:33 Normal [facility] Post Op (General Surgery)on 04-02-2021 Post [...] not he wants to follow-up with a briquetter operator in our system. Provider Impressions He is [...] not he wants to follow-up with a briquetter operator in our system. Chief Complaint An interactive [...] not he wants to follow-up with a briquetter operator in our system. Active Problems COPD (chronic [...] MG Oral Tablet Results/Data Xray Chest 1 [id number] 04:27PMJim Faith Test NameResultFlagReference Xray Chest 1 View(Report) FINAL REPORT Interpreted by: МАРИНА MARCELO MD 02/12/21 16:52 Patient Name: RIGO JEFFERSON STUDY: CHEST 1 VIEW; 02/12/2021 4:27 pm INDICATION: chest tube removal. COMPARISON: Prior 11:07 a.m. radiograph. ACCESSION NUMBER(S): [id number] ORDERING CLINICIAN: JIM FAITH FINDINGS: Left basilar [...] 16:52 Signatures Electronically signed by : Daniel Cabalelro MD; Apr 02 2021 5:38PM EST (Author) Normal [facility] Admission Risk Screen - Adul ton 02-12-2021 Admission Risk Screen - Adult Allergies: Allergies: No Known Allergies: Patient Verification: New W ID Band Applied in my Departmentno Type of ID Patient is WearingW wristband, but not applied here Patient Transferred from Other Facility ([facility], [facility],etc)no Patient Identity Verified Bypatient ID Band [...] AlertFor Ebola-like Symptoms: Isolate Patient and Notify Provider/Theatre Arts Professor For Contact: Notify Provider/Theatre Arts Professor Advance Directive: Advance Directive/DNRno (1) Advance Directive [...] Learning Preferencesverbal instruction Cultural Considerationsnone Developmental Considerationsnone Jain Considerationsnone Learning Assessment (Other Learner): Other learner availableno Depression Screen: During the past month, have you often been bothered by feeling down, depressed or hopelessno (1) During the past month, have you often had little interest or pleasure in doing thingsno (1) Have you had any thoughts of harming anyone elseno (1) [place] Suicide: Risk Screen Not Applicable/Able to Answerable to be screened In the Past Month: Have you wished you were or could go to sleep and not wake upno(1) In the Past Month: Have you had any actual thoughts of killing yourself no(1) Lifetime: Have you ever done, started to do, or prepared to do anything to end your lifeno(1) [place] Suicide Risknegative Adult Nutrition Screen: Have you [...] Pain (nonverbal)verbalization (more content not included)... Normal [facility] BASIC METABOLIC PANELon 02-03 Anion gap [Moles/Vol] 15 mmol/L Normal 10 - 20 [facility] Comment on above: Performed By: #### B MP #### [facility] [address] [place] [address] Calcium [Mass/Vol] 9.5 mg/dL Normal 8.6 - 10.6 [facility] Comment on above: Performed By: #### B MP #### [facility] [address] [place] [address] Chloride [Moles/Vol] 102 mmol/L Normal 98 - 107 [facility] Comment on above: Performed By: #### B MP #### [facility] [address] [place] [address] Creatinine [Mass/Vol] 0.98 mg/dL Normal 0.50 - 1.30 [facility] Comment on above: Performed By: #### B MP #### [facility] [address] [place] [address] GFR- AM. >60 Normal >60 [facility] Comment on above: Result Comment: CALC ULATIONS OF ESTIMATED GFR ARE PERFORMED USING THE MDRD STUDY EQUATION FOR THE IDMS-TRACEABLE CREATININE METHODS. CLIN CHEM 2007;53:766-72 Performed By: #### B MP #### [facility] [address] [place] [address] GFR-NON AM. >60 Normal >60 [facility] Comment on above: Performed By: #### B MP #### [facility] [address] [place] [address] Glucose [Mass/Vol] 133 mg/dL High 74 - 99 [facility] Comment on above: Performed By: #### B MP #### [facility] [address] [place] [address] HCO3 (Bld) [Moles/Vol] 24 mmol/L Normal 21 - 32 [facility] Comment on above: Performed By: #### B MP #### [facility] [address] [place] [address] Potassium [Moles/Vol] 4.3 mmol/L Normal 3.5 - 5.3 [facility] Comment on above: Performed By: #### B MP #### [facility] [address] [place] [address] Sodium [Moles/Vol] 137 mmol/L Normal 136 - 145 [facility] Comment on above: Performed By: #### B MP #### [facility] [address] [place] [address] Urea nitrogen [Mass/Vol] 17 mg/dL Normal 6 - 23 [facility] Comment on above: Performed By: #### B MP #### [facility] [address] [place] [address] CBCon 02-12-2021 Erythrocyte distribution width (RBC) [Ratio] 12.1 % Normal 11.5 - 14.5 [facility] Comment on above: Performed By: #### C BC #### [facility] [address] [place] [address] Hematocrit (Bld) [Volume fraction] 45.8 % Normal 41.0 - 52.0 [facility] Comment on above: Performed By: #### C BC #### [facility] [address] [place] [address] Hemoglobin (Bld) [Mass/Vol] 15.0 g/dL Normal 13.5 - 17.5 [facility] Comment on above: Performed By: #### C BC #### [facility] [address] [place] [address] MCHC (RBC) [Mass/Vol] 32.8 g/dL Normal 32.0 - 36.0 [facility] Comment on above: Performed By: #### C BC #### [facility] [address] [place] [address] MCV (RBC) [Entitic vol] 94 fL Normal 80 - 100 [facility] Comment on above: Performed By: #### C BC #### [facility] [address] [place] [address] NUCLEATED RBC 0.0 /100 WBC Normal 0.0-0.0 [facility] Comment on above: Performed By: #### C BC #### [facility] [address] [place] [address] Platelets (Bld) [#/Vol] 228 10*3/uL Normal 150 - 450 [facility] Comment on above: Performed By: #### C BC #### [facility] [address] [place] [address] RBC 4.85 x10E12/L Normal 4.50 - 5.90 [facility] Comment on above: Performed By: #### C BC #### [facility] [address] [place] [address] WBC (Bld) [#/Vol] 12.8 10*3/uL High 4.4 - 11.3 [facility] Comment on above: Performed By: #### C BC #### [facility] [address] [place] [address] Clinical Event Note-POCon Clinical Event Note-POC Clinical [...] 00:41 by Nataliia Ferris ( (Resident)) Normal [facility] Daily Progress Note-Surgeryo n 02-12-2021 Daily Progress [...] yet. Objective Data: Objective Information: T PRBPSpO2 Value35.59034205/8695% Date/Time02/12 6:4902/12 6:4902/12 6:4902/12 6:4910 6:49 Range(35.4C - 36.4C ) (77 - 99 ) (17 - 18 ) (127 - 147 )/ (86 - 91 ) (95% - 96% ) Pain reported at 02/12 2:54: 6 = Moderate ---- Intake and Output ----- Mn/Dy/Year TimeIntakeOutputNet Feb 12, 2021 6:00 [id number] Feb 11, 2021 10:00 [id number] The Intake and Output Totals for the last 24 hours are: IntakeOutputNet [id number] Physical Exam by System: Constitutional: Well developed, [...] Last Updated: 13-Feb-2021 10:13 by Daniel Caballero) [facility] Discharge Planning [id number] 0 02-12-2021 Discharge Planning Note2 Discharge Planning: Needs Prior to Discharge (ex. Home Care Orders, IV/O2 prescriptions) Follow up appointments Discharge Barriers (ex. Avoidable days, wait guardianship, pt refuse leave) None Planned Dispositionhome Discharge DestinationHome [facility] < 20[facility] [place] of Choice Explainedyes preference Anticipated Discharge [id number] Discharge Planning 02/12/2021 0135 Discharge Plan Patient transferred from [place] [address] from PACU for diaphragm plication. Pt is A&O times 4. at 3 liters oxygen. Pt denies any director medical economics use at home. Pt emergency contact representative Sahil Joe- son. Pt have valuable belongings [...] disposition: Home Potential Barriers: none ADOD: 02/12. substance abuse prevention coordinator will continue to follow for discharge planning needs. Franny Gilliam RN, Transitional Tibco Developer/TCC, pager [phone] Discharge note: 02/12/21 @ 1735: PT discharged home at this time. pts peripheral IV taken out prior to DC. pt given DC instructions. pt verbalized understanding. pt refused transport and walked downstairs with his son.---Erika stock RN Assessment: Discharge Planning Assessment [id number] Primary Contact Name and NumberAdam [phone](1) Stated Reason for Admissiondiaphragm plication(2) Arrived FromOR (2) Lives Withparent(s)(2) Living Arrangementshouse(2) Resource/Environmental Concernsnone(2) [facility]ticipated [facility]) Services Anticipated at Transitionnone(2) Discharge Documentation: Discharge/Transfer Date/Ifhh52-Tzl-3259 17:35 Discharge Modeambulatory Discharged Accompanied Byfamily member [...] Profile - Adult v2 12-Feb-2021 01:31 Normal [facility] Discharge [id number] 021 Discharge Profile2 Discharge Orders: Anticipated Discharge Date: Anticipated Discharge [id number] DNAR: DNAR Status: none Call Provider If [...] hemidiaphragm plication Call to Schedule in2 weeks [id number] Hilario Crawford [address] Phone [phone] Other Clinician Instructions: Other Instructions: Other Clinician [...] Appointments, Other Clinician Instructions, Gold Form - Talent Acquisition Associate Summary Last Updated: 12-Feb-2021 15:27 by Jim Faith ( (Resident)) Normal [facility] Laboratory - Chemistry and C hemistry - challengeon 02-12-2021 Anion gap [Moles/Vol] 15 mmol/L 10 - 20 NT-Atiepeh[address] [employer] [address] Work Phone: Calcium [Mass/Vol] 9.5 mg/dL 8.6 - 10.6 MG-Tino raysa-[address] [employer] [address] Work Phone: Chloride [Moles/Vol] 102 mmol/L 98 - 107 KJ-Eiqvnsj-L [employer] [employer] [address] Work Phone: CO2 [Moles/Vol] 24 mmol/L 21 - 32 MG-Surger y-G [address] Work Phone: Creatinine [Mass/Vol] 0.98 mg/dL See Below BB-Nbetgyl-[address] Work Phone: Comment on above: Reference Range: 0.5 0 - 1.30 Glucose [Mass/Vol] 133 mg/dL above high threshold 74 - 99 UW-Entnirv[address] Work Phone: [phone] Potassium [Moles/Vol] 4.3 mmol/L 3.5 - 5.3 RC-Hdm[address]ws[address] Work Phone: [phone] Sodium [Moles/Vol] 137 mmol/L 136 - 145 [facility] Work Phone: [phone] Urea nitrogen [Mass/Vol] 17 mg/dL 6 - 23 BU[facility]vwdlr[facility] Work Phone: [phone] Laboratory - Hematology and Cell countson 02-12-2021 Erythrocyte distribution width (RBC) [Ratio] 12.1 % See Below BU[facility]Iicfrjy[facility] Work Phone: [phone] Comment on above: Reference Range: 11. 5 - 14.5 Hematocrit (Bld) [Volume fraction] 45.8 % See Below SZ-Kvvyccn-[address] Work Phone: [phone] Comment on above: Reference Range: 41. 0 - 52.0 Hemoglobin (Bld) [Mass/Vol] 15.0 g/dL See Below FL-Wslwawo-[address] Work Phone: [phone] Comment on above: Reference Range: 13. 5 - 17.5 MCHC (RBC) [Mass/Vol] 32.8 g/dL See Below XK-Elekpbk-[address] Work Phone: [phone] Comment on above: Reference Range: 32. 0 - 36.0 MCV (RBC) [Entitic vol] 94 fL 80 - 100 BZ-Tkb[address]ny[address] Work Phone: [phone] Platelets (Bld) [#/Vol] 228 10*3/uL 150 - 450 ZK[facility]sbkhc[facility] Work Phone: [phone] RBC (Bld) [#/Vol] 4.85 {x10E12/L} See Below MG -Surgery-[address] Work Phone: Comment on above: Reference Range: 4.5 0 - 5.90 WBC (Bld) [#/Vol] 12.8 10*3/uL above high threshold 4.4 - 11.3 RM-Bdh[address]ct-[address] Work Phone: No Panel Informationon 02-12 >60 >60 HZ-Jkobnbj-[address] Work Phone: Comment on [...] tab(s) orally 2 times a day Normal [facility] Patient Profile - Adult v2on 02-12-2021 Patient Profile - Adult v2 Profile: Initial Info: How to be AddressedDel(1) Spoken Language PreferredEnglish (1) Stated Reason for Admissiondiaphragm plication Patient Belongingsremains with patient Patient Belongings Remaining with Patientcash/credit card; clothing Arrived FromOR Medications Brought to Hospitalno Are you currently using the Personal Electronic Health Record or GreenPocketUHCAREno (1) Wants Family/Rep Notified of Admissionyes, primary contact Notify PCPnotify PCP Informed of Patient Visiting Rightsyes General Health: Blood Avoidance/Restrictionsnone (1) Previous Transfusion Reactionno(2) Weight in kg109.8 kilogram(s)(3) Weight in dzf062 pound(s) Weight Methodactual (measured) (3) Scale Typestanding [...] From 1. Vital Signs 11-Feb-2021 12:02 Normal [facility] Radiologyon 02-12-2021 XR Chest Single view Normal OU-Btulkjv-[address] Work Phone: XR Chest Single view Normal QO-Dxgjsco-[address] Work Phone: XR Chest Single view Normal IC-Atnauop-[address] Work Phone: TH CHEST 1 VIEWon 02-12-2021 TH CHEST 1 VIEW Patient Name: RIGO JEFFERSON STUDY: CHEST 1 VIEW; 02/12/2021 4:27 pm INDICATION: chest tube removal. COMPARISON: Prior 11:07 a.m. radiograph. ACCESSION NUMBER(S): [id number] ORDERING CLINICIAN: JIM FAITH FINDINGS: Left basilar [...] Electronically signed by: МАРИНА MARCELO MD Normal [facility] TH CHEST 1 VIEW Patient Name: RIGO JEFFERSON STUDY: CHEST 1 VIEW; 02/12/2021 11:58 am INDICATION: chest tube wet seal. COMPARISON: 7:02 a.m. radiograph. ACCESSION NUMBER(S): [id number] ORDERING CLINICIAN: JIM FAITH FINDINGS: Left basilar [...] Electronically signed by: МАРИНА MARCELO MD Normal [facility] TH CHEST 1 VIEW Patient Name: RIGO JEFFERSON STUDY: CHEST 1 VIEW; 02/12/2021 7:13 am INDICATION: POD 1 s/p diaphragm plication. COMPARISON: 02/11/2021. ACCESSION NUMBER(S): [id number] ORDERING CLINICIAN: JANE YO FINDINGS: Left basilar [...] effusion. Electronically signed by: МАРИНА MARCELO MD [facility] No Panel Informationon 02-11 [facility] [address] Work Phone: Operative Reports - [facility] [place] [address] Patient Name: RIGO JEFFERSON : 1960 Date of Service: 02/11/2021 Patient Location: [place] [address] Patient Type: I Surgeon: Daniel Caballero MD Report Type: Operative Reports PREOPERATIVE DIAGNOSIS: Chronic respiratory failure, left diaphragm dysfunction. POSTOPERATIVE DIAGNOSIS: Chronic respiratory failure, left diaphragm dysfunction. OPERATION/PROCEDURE: Laparoscopic left diaphragm plication with removal of previous diaphragm pacing wires. SURGEON: Daniel Caballero MD MANAGEMENT EXPERT(S): Jane Yo MD. There was no available resident. ANESTHESIA: LOCATION: [facility]. CLINICAL NOTE: This is a patient with [...] TT: 02/12/2021 12:44 PM EST DICTATION NUMBER: [id number] BRIE JOB NUMBER: [id number] CC: PT STATES NONE PCP Electronic Signatures: Daniel Caballero) (Signed on 13-Feb-2021 10:15) Authored Unsigned, Draft (SYS GENERATED) (Entered on 12-Feb-2021 12:44) Entered Last Updated: 13-Feb-2021 10:15 by Daneil Caballero) Normal [facility] Order Reconciliationon 02-11 Order Reconciliation Page 1 Admission Reconciliation Document Reconciliation Type: Admission from OR requested on behalf of Jane Yo (Physician) done by Jane Yo) Admission from OR - Reconciliation: 11-Feb-2021 18:31 by: Jane Yo) Home MedicationsEnteredLast Dose TakenReconciled with current Order Reconciliation Comment/ Additional Information Kristina 24 Hour Allergy oral tablet 1 tab(s) orally once a [id number]-Feb-2021 AM Reviewed and Held clarithromycin 250 mg oral tablet 250 milligram(s) orally once a day Clarithromycin Tablet (BIAXIN)DOSE = 250 mg Oral Every 24 Hoursclarithromycin 250 mg oral tablet continued as the inpatient order Clarithromycin diclofenac sodium 50 mg oral delayed release tablet 1 tab(s) orally 2 times a [id number]-Qgw-5306 AM Reviewed and Held oxycodone-acetaminophen 5 mg-300 mg oral tablet 1 tab(s) orally 2 times a day [id number] AM Reviewed and Held Additional Current Orders [...] 15 minute(s)Clinician Notes: Carlota-operative order ONLY Normal [facility] Patient Profile - Preop v2on 02-11-2021 Patient Profile - Preop v2 Profile: Initial Info: How to be AddressedDel(1) Spoken Language PreferredEnglish (1) Source of Informationpatient Are you currently using the Personal Electronic Health Record or [place] (1) Are you interested in learning more about GreenPocketJoKno for the management of your healthnot at this time Stated Reason for AdmissionL pulling of wires/pulling lung down Primary Contact Name and NumberSahil [phone] Patient Belongingspatient educated regarding responsibility for personal items Medications Brought to Hospitalno General Health: Weight in kg109.8 kilogram(s) Weight in mgm598 pound(s) Weight Methodactual (measured) Scale Typestanding Height [...] Learning Preferencesverbal instruction Cultural Considerationsnone Developmental Considerationsnone Jain Considerationsnone Other learner availableno [place] RiskPatient location auto qualifies him/her for HIGH RISK. Are there any cultural, spiritual, yazidi practices/values/needs that are important for us to [...] Profile - Adult v2 12-Dec-2017 16:00 Normal [facility] Preop Checkliston 02-11-2021 Preop Checklist Preop Checklist: Preop Checklist: Arrival [id number] Arrival Time11:48 Procedure TypeL laparoscopic diaphragm plication Temperature C36.1 degrees C Temperature F96.9 degrees F Heart Rate70 beats per minute Respiratory Rate12 breath per minute Blood Pressure Tigqzdmg804 mm/Hg Blood Pressure Fqjaqqxqs78 mm/Hg NPO Dtlwvc08-Csy-1065 00:00 ID Band Onyes Allergy Bandno known [...] 11-Feb-2021 12:02 by Jany Ann (RN) Normal [facility] Radiologyon 02-11-2021 XR Chest Single view Please click on the link to view the study images Normal [place] [address] Work Phone: [facility] Surgical Pathology Depar tmenton 02-11-2021 [facility] Surgical Pathology Department Name RIGO JEFFERSON Pathologist: JACINTO MURRIETA MD Date of Procedure: 02/11/2021 Date Received: 02/12/2021 Date Reported 02/19/2021 Submitting Physician: DANIEL CABALLERO M.D. Location: [facility] Copy To/Referring/Attending: DANIEL CABALLERO M.D. [...] this case. Clinical History: Physician Contact Number: [phone] Fixative (A): Fresh Clinical Diagnosis History: disorders of diaphragm Specimens Submitted As: A: PACING WIRE Gross Description: Received in formalin, labeled with the patient's name and hospital number, are multiple wires with a piece of adipose tissue attached measuring 3.0 x 1.6 x 1.0 cm. A photograph is taken. The attached soft tissue is submitted entirely in one cassette. EXB exb/02/12/2021 [facility] Department of Pathology [id number] [place] [address] Normal [facility] Comment on above: Performed By: #### U HCS ####[facility] Surgical Pathology [address] [place] [address] CORONAVIRUS 2019, SCREEN ASY MPTOMATICon 02-10-2021 SARS-CoV-2 (COVID-19) RNA BECCA+probe Ql (Unsp spec) Not detected Normal Not Detected [facility] Comment on above: Result Comment: . This [...] patient management decisions. Fact sheet for providers: https://www.fda.gov/media/775301/download Fact sheet for patients: https://www.fda.gov/media/661145/download This test has received FDA Emergency Use Authorization (EUA) and has been verified by [facility] ([facility]). This test is only authorized for the duration of time that circumstances exist to justify the authorization of the emergency use of in vitro diagnostic tests for the detection of SARS-CoV-2 virus and/or diagnosis of COVID-19 infection under section 564(b)(1) of the Act, 21 U.S.C. 360bbb-3(b)(1), unless the authorization is terminated or revoked sooner. [facility] is certified under CLIA-88 as qualified to perform high complexity testing. Testing is performed in the [facility] laboratories located at [address] [place] [address]. Performed By: #### C OVSC #### [place] [address] Covid 19 Resultson SARS-CoV-2 (COVID-19) RNA BECCA+probe [...] by the [facility] of [facility] to see if any of your close [...] or Naproxen (Aleve) can also be used. Japc-egp-wpqtpvh cough and cold medicines can be used according to the instructions on the package. Some jeoy-yie-vmgicbw medicines also contain acetaminophen. Make sure you [...] water are not available, use alcohol-based hand fitter mechanic. Avoid touching your eyes, nose, and mouth [...] 24 alem (more content not included)... Normal [facility] CORONAVIRUS 2019, SCREEN ASY MPTOMATICon 02-09-2021 Lab Specimen Source Nasal, Nasopharyngeal Normal [facility] Comment on above: Performed By: #### C OVSC #### [facility] [id number] [place] [address]. [place] [address] Coronavirus 2019 RNA by PCR, Screening Asymptomticon 02-09-2021 Coronavirus 2019 RNA by PCR, Screening Asymptomtic Not detected Normal See Below HS-Oucatpz[address] Work Phone: Comment on [...] make patient management decisions.Fact sheet for providers: https://www.fda.gov/media/787536/downloadFact sheet for patients: https://www.fda.gov/media/372803/downloadThis test has received FDA Emergency Use Authorization (EUA) and has been verified by [facility] ([facility]). This test is only authorized for the duration of time that circumstances exist to justify the authorization of the emergency use of in vitro diagnostic tests for the detection of SARS-CoV-2 virus and/or diagnosis of COVID-19 infection under section 564(b)(1) of the Act, 21 U.S.C. 360bbb-3(b)(1), unless the authorization is terminated or revoked sooner. [facility] is certified under CLIA-88 as qualified to perform high complexity testing. Testing is performed in the [facility] laboratories located at [address] [place] [address]. BASIC METABOLIC PANELon 05-2 Anion gap [Moles/Vol] 13 mmol/L Normal 10 - 20 [facility] Comment on above: Performed By: #### B MP ####[id number] [place] [address] Calcium [Mass/Vol] 9.7 mg/dL Normal 8.6 - 10.6 [facility] Comment on above: Performed By: #### B MP ####[id number] [place] [address] Chloride [Moles/Vol] 108 mmol/L High 98 - 107 [facility] Comment on above: Performed By: #### B MP ####[id number] [place] [address] Creatinine [Mass/Vol] 1.04 mg/dL Normal 0.50 - 1.30 [facility] Comment on above: Performed By: #### B MP ####[id number] [place] [address] GFR- AM. >60 Normal >60 [facility] Comment on above: Result Comment: CALC ULATIONS OF ESTIMATED GFR ARE PERFORMED USING THE MDRD STUDY EQUATION FOR THE IDMS-TRACEABLE CREATININE METHODS. CLIN CHEM 2007;53:766-72 Performed By: #### B MP ####[id number] [place] [address] GFR-NON AM. >60 Normal >60 [facility] Comment on above: Performed By: #### B MP ####[id number] [place] [address] Glucose [Mass/Vol] 91 mg/dL Normal 74 - 99 [facility] Comment on above: Performed By: #### B MP ####[id number] [place] [address] HCO3 (Bld) [Moles/Vol] 29 mmol/L Normal 21 - 32 [facility] Comment on above: Performed By: #### B MP ####[id number] [place] [address] Potassium [Moles/Vol] 4.6 mmol/L Normal 3.5 - 5.3 [facility] Comment on above: Performed By: #### B MP ####[id number] [place] [address] Sodium [Moles/Vol] 145 mmol/L Normal 136 - 145 [facility] Comment on above: Performed By: #### B MP ####[id number] [place] [address] Urea nitrogen [Mass/Vol] 13 mg/dL Normal 6 - 23 [facility] Comment on above: Performed By: #### B MP ####[id number] [place] [address] CBCon 01-27-2021 Erythrocyte distribution width (RBC) [Ratio] 12.2 % Normal 11.5 - 14.5 [facility] Comment on above: Performed By: #### C BC ####[id number] [place] [address] Hematocrit (Bld) [Volume fraction] 46.7 % Normal 41.0 - 52.0 [facility] Comment on above: Performed By: #### C BC ####[id number] [place] [address] Hemoglobin (Bld) [Mass/Vol] 15.1 g/dL Normal 13.5 - 17.5 [facility] Comment on above: Performed By: #### C BC ####[id number] [place] [address] MCHC (RBC) [Mass/Vol] 32.3 g/dL Normal 32.0 - 36.0 [facility] Comment on above: Performed By: #### C BC ####[id number] [place] [address] MCV (RBC) [Entitic vol] 96 fL Normal 80 - 100 [facility] Comment on above: Performed By: #### C BC ####[id number] [place] [address] NUCLEATED RBC 0.0 /100 WBC Normal 0.0-0.0 [facility] Comment on above: Performed By: #### C BC ####[id number] [place] [address] Platelets (Bld) [#/Vol] 209 10*3/uL Normal 150 - 450 [facility] Comment on above: Performed By: #### C BC ####[id number] [place] [address] RBC 4.85 x10E12/L Normal 4.50 - 5.90 [facility] Comment on above: Performed By: #### C BC ####[id number] [place] [address] WBC (Bld) [#/Vol] 7.2 10*3/uL Normal 4.4 - 11.3 [facility] Comment on above: Performed By: #### C BC ####[id number] [place] [address] Follow Up (General Surgery)o n 01-27-2021 Follow [...] EKG; Status:Hold For - Scheduling; Requested for:27Jan2021; Perform:[facility]; Due:27Apr2021;Ordered; For:Diaphragm dysfunction, HTN (hypertension); Ordered [...] 2017 and had paced more or less snapper on. He was turning the device off 1-2 [...] MG Oral Tablet Vitals Vital Signs Recorded: 43Frh1786 11:12AM Cxkjqoyexva94.1 F Heart Rate77 Itzkicjp749 Xtpmildbr21 Wqqnej227 lb BMI Smgvjfhvat08.64 kg/m2 BSA Calculated2.33 Tobacco Useb) No Physical [...] the r (more content not included)... Normal Cartavi No Panel Informationon 01-27 [email or web address] 1:8080 /[email or web address].dll?R etrieveTestByDateTime?Sherita zvpSV=[id number]&Date=&Time=13%3a24%3a34%3a 00&TestType=ECG&Site=1&Out putType=PDF&Ext=PDF VB-Zlcipko-[address] Work Phone: Normal sinus rhythm MG-Ramos rgery-[address] Work Phone: Normal TN-Lnkrklx-[address] Work Phone: [phone] AW-Bdstqwh-[address] Work Phone: [phone] FJ-Dxfnarm-[address] Work Phone: [phone] SH-Tmegdzk-[address] Work Phone: [phone] 1 BJ-Sguwcqi-[address] Work Phone: [phone] XQ-Xqtjrrh-T [address] Work Phone: 11 1 KQ-Siupigw-[address] Work Phone: [phone] 1 LC-Vnrodhf-[address] Work Phone: [phone] 1 MU-Wmdotdi-[address] Work Phone: 40 1 FA-Rgjscko-[address] Work Phone: [phone] IJ-Pvvmfqo-[address] Work Phone: [phone] RX-Rxdvjmu-[address] Work Phone: [phone] 1 FQ-Gygzhgs-[address] Work Phone: [phone] 1 ZI-Thbdtbd-[address] Work Phone: [phone] 1 JZ-Iisdyhq-I [address] Work Phone: Radiologyon 01-27-2021 XR Chest 2 Views Normal MG-Surge ry-[address] Work Phone: TH CHEST 2 VIEW PA AND LATon 01-27-2021 TH CHEST 2 VIEW PA AND LAT Patient Name: RIGO JEFFERSON STUDY: TH CHEST 2 VIEW PA AND LAT; 01/27/2021 11:00 am INDICATION: chronic hypoventilation. COMPARISON: Chest radiograph 04/03/2019 ACCESSION NUMBER(S): [id number] ORDERING CLINICIAN: DANIEL CABALLERO FINDINGS: Inspiratory and [...] Electronically signed by: ANGI CAICEDO MD Normal [facility] Tobacco Screening.on 021 Tobacco use status CP b) No KA-Nzqahjs-[address] Work Phone: Tobacco Screening. b) No MG-Tino raysa-[address] Work Phone: Otheron 04-03-2019 XR Chest 2 views Interpreted by: ISAK04/03/19 14:06MRN: [id number] Name: RIGO JEFFERSON STUDY:CHEST 2 VIEW PA [...] Electronically signed by: ISAK 04/03/19 14:06 Normal AO-Antxkgu-[address] Work Phone: Vital Signs Date Time Vital Sign Value Performing Clinician Facility 02-12-2021 14:10-0400 SaO2% (BldA) [Mass fraction] 95 % No Pcp Required [facility] 02-12-2021 14:00-0400 Body temperature 97.16 [degF] No Pcp Required [facility] 02-12-2021 14:00-0400 Diastolic blood pressure 83 mm[Hg] No Pcp Required [facility] 02-12-2021 14:00-0400 Heart rate 81 /min No Pcp Required [facility] 02-12-2021 14:00-0400 Respiratory rate 18 /min No Pcp Required [facility] 02-12-2021 14:00-0400 Systolic blood pressure 131 mm[Hg] No Pcp Required [facility] 02-12-2021 03:31-0400 Body height 182.8 cm No Pcp Required [facility] 02-12-2021 03:31-0400 Body weight 109.8 kg No Pcp Required [facility] 01-27-2021 11:12-0400 Body mass index (BMI) [Ratio] 33.64 kg/m2 Daniel Caballero MD Work Phone: SA-F[address] Work Phone: 01-27-2021 11:12-0400 Body surface area Derived from formula 2.33 m2 Daniel Caballero MD Work Phone: PZ-Whur[address] Work Phone: 01-27-2021 11:12-0400 Body temperature 96.1 [degF] Daniel Caballero MD Work Phone: ZV-Xdotbod-[address] Work Phone: 01-27-2021 11:12-0400 Body weight 112.49 kg Daniel Caballero MD Work Phone: JS-Hjtbegh-[address] Work Phone: 01-27-2021 11:12-0400 Diastolic blood pressure 85 mm[Hg] Daniel Caballero MD Work Phone: UF-Scdxfec[address] Work Phone: 01-27-2021 11:12-0400 Heart rate 77 /min Daniel Caballero MD Work Phone: FK-Kodwabk-[address] Work Phone: 01-27-2021 11:12-0400 Systolic blood pressure 157 mm[Hg] Daniel Caballero MD Work Phone: ZP-Jiknxhe-[address] Work Phone: 04-03-2019 15:37-0400 BMI (Body Mass Index) 30.11 kg/m2 Chandan Tecumseh MG-Surgery -[place] [address] Work Phone: 04-03-2019 15:37-0400 Body Temperature 97.9 [degF] Chandan Tecumseh AQ-Lfzfpbu-[address] Work Phone: 04-03-2019 15:37-0400 Body weight 100.7 kg Chandan Travon OC-Oiyygep-[address]qrh [address] 2099 Work Phone: 04-03-2019 15:37-0400 BP Diastolic 74 mm[Hg] Chandan Tecumseh ER-Efblwnk-Xbfde ll 2099 Work Phone: 04-03-2019 15:37-0400 BP Systolic 121 mm[Hg] Chandan Tecumseh OM-Vinctxu-Ymitp [address] 2099 Work Phone: 04-03-2019 15:37-0400 BSA (Body Surface Area) 2.23 m2 Chandan Tecumseh DM-Kboqptd-Aidfxvp 2099 Work Phone: 04-03-2019 15:37-0400 Height 182.88 cm Chandan Travon PY-Ngxidlt-Phryl [address] 2099 Work Phone: 04-03-2019 15:37-0400 Pulse (Heart Rate) 58 /min Chandan Travon UK-Hbqgovz-[address] Work Phone: Encounters Encounter Date [...] related to original px No PCP None BS-Vwsqmve-[address] Work Phone: Start: 02-20-2021 Chart Update No PCP None MG-Surgery -[address] Work Phone: Start: 02-11-2021 End: 02-12-2021 Evaluation and management of inpatient Daniel Onders [facility] [address] 55 Rm 5511 01 Start: 01-27-2021 Chart Update Daniel Caballero MD Work Phone: SR-Xbrdjur-[address] Work Phone: Start: 04-03-2019 Patient encounter procedure Chandan Cool MN-Cramxlg-[address] 2[address] Work Phone: Start: 01-12-2018 Patient encounter procedure Chandan Cool PT-Eiqvzph-[address] Work Phone: Start: 11-28-2017 Patient encounter procedure Chandan Cool YC-Ntfrjuc-[address] Work Phone: Start: 11-28-2017 Patient encounter procedure Chandan Cool JT-Aqzawkl-[address] Work Phone: Procedures Date Procedure [...] End: 11-Feb-2022 Ordered: 11-Feb-2021 Jane Yo Intent [facility] Payers Date Payer Category Payer Unknown [id number] 2018 Unknown 1960 Medicare [id number] 1960 Unknown [id number] 2.16.84 [id number] 1959 Unknown [id number] 2.16.84 0.1.921587.3.579.2.593 1959 Unknown [id number] 2.16.84 0.1.252961.3.579.2.593 1959 Unknown [id number] 2.16.84 0.1.455808.3.579.2.593 1959 Unknown [id number] 2.16.84 0.1.682371.3.579.2.593 1959 Unknown [id number] 2.16.84 0.1.195764.3.579.2.593 1959 Unknown [id number] 2.16.84 0.1.327884.3.579.2.593 1959 Unknown [id number] 2.16.84 0.1.702629.3.579.2.593 1959 Unknown [id number] 2.16.84 0.1.073469.3.579.2.593 1959 Unknown [id number] 2.16.84 0.1.148781.3.579.2.593 1959 Unknown [id number] 2.16.84 0.1.676525.3.579.2.1259 1959 Unknown [id number] 2.16.84 0.1.010405.3.579.2.1259 1959 Unknown [id number] 2.16.84 0.1.930718.3.579.2.1259 1959 Unknown [id number] 2.16.840 .1.209276.3.579.2.1259 Social History Date Type Detail Facility Former smoker Former smoker JV-Swflbgc-[address] Work Phone: Tobacco smoking consumption unknown [facility] NEGATED: Highlighted row - - MG- Surgery-[address] Work Phone: Functional Status Date Assessment Result Facility Functional observable [facility] NEGATED: Highlighted row Functional performance Functional status health issues are not documented Disease AT-Iaotcxq-[address] Work Phone: Mental Status Date Assessment Result Facility 02-12-2021 Cognitive functi ons [id number]:24 [facility] NEGATED: Highlighted row Cognitive function [Interpretation] Cognitive status health issues are not documented Disease DF-Wktbjvt-[address] Work Phone: Clinical Notes 02-11-2021 [...] our patients to inform us about any kxuc-jsw-aliuzdy medications or herbal remedies/nutritional supplements/alternative remedies. 2. [...] options with their primary care provider. [facility] 11-25-2022 Note CONSULTATION CONSULTATION DATE: 11/25/2022 [...] of his shoulders, bilaterally, without contrast. [facility] 09-03-2022 Note CONSULTATION CONSULTATION DATE: 09/03/2022 [...] three months' time, unless otherwise indicated. [facility] 06-01-2022 Note CONSULTATION CONSULTATION DATE: 06/01/2022 [...] three months. CC: Shaikh Romero M.D. [facility] 05-18-2022 Note CONSULTATION CONSULTATION DATE: 05/18/2022 [...] to proceed. CC: Shaikh Romero M.D. [facility] 05-18-2022 Note CONSULTATION PROCEDURE DATE: 05/18/2022 [...] be followed up in the office. [facility] 04-29-2022 Note CONSULTATION CONSULTATION DATE: 04/29/2022 [...] for his injections with Dr. Duncan. [facility] 01-27-2022 Note CONSULTATION CONSULTATION DATE: 01/27/2022 [...] in three month's time, unless otherwise indicated. [facility] Signed and Approved by: RAVINDER ANDERSEN . 02/04/2022 16:12:00 [facility] 02-12-2021 Note Send Summary: Discharge Summary [...] at Discharge: .Home Vital Signs: T PRBPSpO2 Value36.29802304/8395% Date/Time02/12 12: 12: 12: 12: 12:10 Range(35.4C - 36.4C ) (77 - 99 ) (17 - 18 ) (127 - 147 )/ (83 - 91 ) (92% - 96% ) As of 12-Feb-2021 12:10:00, patient is on 2 L/min of oxygen Date: Weight/Scale Type:Height: 12-Feb-2021 01:72085.8 kg / .8 cm Hospital Course: 61 [...] Call to Schedule in: 2 weeks Location: [address] [place] [address] Discharge Medications: Home Medication clarithromycin 250 mg [...] Last Updated: 13-Feb-2021 10:13 by Daniel Caballero) [facility] 02-11-2021 Note Post Operative Note: PreOp Diagnosis: diaphragm paralysis Post-Procedure Diagnosis: same Procedure: 1. laparoscopic L diaphragm plication 2. removal of bilateral diaphragm pacing wires 3. L pigtail chest tube placement Surgeon: Dr Daniel Caballero Resident/Fellow/Other Automation Consultant: Dr Jane Yo Anesthesia: GETA Estimated Blood [...] Last Updated: 12-Feb-2021 07:53 by Daniel Caballero) [facility] 02-11-2021 Note History & Physical R eviewed: [...] Last Updated: 11-Feb-2021 15:50 by Daniel Caballero) [facility] Chief complaint Narrative - Reported An interactive audio and video telecommunication system which permits real time communications between the patient (at the originating site) and provider (at the distant site) was utilized to provide this telehealth service.Post op CA-[address] Work Phone: Evaluation note Constitutional: Well developed, awake/alert/oriented x3, no distress, alert and cooperativeSkin: warm and dryEyes: PERRL, EOMI, clear scleraENMT: MMMHead/Neck: NCATRespiratory/Thorax: good chest expansion, thorax symmetricCardiovascular: RRRGastrointestinal: Nondistended, soft, non-tender, no rebound tenderness or guardingMusculoskeletal: moves all extremitiesExtremities: well perfusedNeurological: grossly intactPsychological: Appropriate mood and behavior [facility] History of Present illness Narrative He is [...] not he wants to follow-up with a briquetter operator in our system. [place] [address] Work Phone: Hospital Discharge instructions Call Provider [...] Up Appointment 2:Physician/Dept/Service: Dr. Caballero - [facility] for Referral: hospital follow-up / diaphragm pacer removal, hemidiaphragm plicationLocation: [address] [address] Number: [phone] Form - Other Clinicians:Other Clinician Instructions: Please take your medications as directed. Please follow-up with Dr. Caballero and with your PCP as directed. You may remove dressings and shower Tuesday. No heavy lifting >20lbs or strenours activity for 3 weeks. If your symptoms return or worsen, please seek medical attention. Thank you for allowing us to participate in your care. [facility] Family History No Family History Records Found [...] section and content) DATE CREATED AUTHOR 04/04/2021 [employer] DATE CREATED AUTHOR AUTHOR'S ORGANIZ ATION 04/08/2021 [facility] [place] DATE CREATED AUTHOR AUTHOR'S ORGANIZ ATION 12/31/2022 [facility] DATE CREATED AUTHOR AUTHOR'S ORGANIZ ATION 11/24/2023 [facility] [facility] [place] FOR RECORDS PERTAINING TO PATIENTS WHO ARE [...] BE BASED ON THE PRIMARY CLINICAL RECORDS. [employer] [facility]. provides no warranty or guarantee of the accuracy or completeness of information in this document.
[2023-12-20 07:42] VITALS: BP 139/90; PULSE 70; TEMP 36.7; O2SAT 98
[2023-12-20 08:47] VITALS: BP 171/74; BP 195/91; PULSE 73; PULSE 79; O2SAT 96; O2SAT 97
[2023-12-20] MEDS: BUPIVACAINE HCL 0.25% PF 25 MG/10 ML VIAL 4 ML INJ (08:49)
[2023-12-20] MEDS: IOHEXOL 240 MG/ML - 10 ML VIAL 24 MG INJ (08:50)
[2023-12-20] MEDS: METHYLPREDNISOLONE ACETATE 40 MG/ML VIAL INJ (08:50)
--- NOTE | 2023-12-20 09:22 | P.ON_ITS ---
Date of procedure: 12/20/23 Pre-op diagnosis: Left hip osteoarthritis Post-op diagnosis: same as pre-op Procedure: Procedure: Left Hip joint injection Pre & postoperative diagnosis: pain secondary to osteoarthritis. Immediate complications none. Anesthesia: 2% lidocaine plain for skin wheal. After informed consent was obtained, patient brought to the OR placed in the supine position. Skin overlying the area was prepped and draped using betadine. 25-gauge 1/2 inch needle was used for skin wheal over the medial aspect of the joint identified under fluoroscopy. Omnipaque dye was used to confirm needle tip placement within the hip joint space 0.5 mL use of the injection. Subsequ ently Depomedrol 40mg and Marcaine 0.25% 4ml was injected into the space. No indication of intravascular or intraneuronal needle tip placement or injection was noted post procedure. The needle was removed, patient transferred to Recovery room in stable condition to discharged home after meeting criteria. Anesthesia: Local Surgeon: Tonny Hernandez Condition: stable
== END 2023-12-20 08:52 | disposition home or self-care (01) ==
LOC: SURGOUT 07:15
PROVIDERS: PCP Internal Medicine; Visit Provider Anesthesiology Pain Medicine
DX: M16.12 Unilateral primary osteoarthritis, left hip (principal)
CPT/HCPCS: 20610; 77002; J1010; Q9966

== ENCOUNTER 2023-12-29 09:17 | Outpatient (OUT) | payer OTHER, SELFPAY ==
--- OUTSIDE RECORDS SUMMARY | 2023-12-29 09:33 | XMS_ITS | CCD ---
Author Organization [facility] Care Team Providers Care Forestry Aid Technician Name Role Phone Chandan Cool Unavailable Unavailable Sid Ac Unavailable Unavailable Required, No Pcp Unavailable Unavailable Daniel Caballero Unavailable None, No PCP Unavailable Unavailable [facility] Primary Care Unavailable WEST, DR RADHA Gaxiola Consulting Unavailable DUNCAN ., DR LLUVIA Sheldon Attending Unavailable DUNCAN ., DR LLUVIA Sheldon Admitting Unavailable DUNCAN ., DR LLUVIA Sheldon Consulting Unavailable [facility] Primary Care Unavailable DUNCAN ., DR LLUVIA Sheldon Attending Unavailable DUNCAN ., DR LLUVIA Sheldon Consulting Unavailable DUNCAN ., DR LLUVIA Sheldon Admitting Unavailable [facility] Primary Care Unavailable DUNCAN ., DR LLUVIA Sheldon Attending Unavailable DUNCAN ., DR LLUVIA Sheldon Consulting Unavailable DUNCAN ., DR LLUVIA Sheldon Admitting Unavailable [facility] Primary Care Unavailable ANDERSEN .RAVINDER Consulting Unavailable DUNCAN ., DR LLUVIA Sheldon Admitting Unavailable DUNCAN ., DR LLUVIA Sheldon Attending Unavailable [facility] Primary Care Unavailable ANDERSEN ., RAVINDER Consulting Unavailable DUNCAN ., DR LLUVIA Shedlon Admitting Unavailable DUNCAN ., DR LLUVIA Sheldon Attending [facility]available [facility] Primary Care Unavailable LAKSHMIPATHY ., NARENDRANATH [...] day Quantity: 0 Refills: 0 Ordered: 11-Feb-2021 Jnay Ann Generic Substitution Allowed See emr (1 [...] by: DOMINGA FLYNN Date: 2022-12-08 10:25 Normal [facility] MRI SHOULDER RT WO CONon MRI SHOULDER [...] by: DOMINGA FLYNN Date: 2022-12-08 10:35 Normal [facility] XR CSPINE OBL FLEX_EXTon XR CSPINE OBL [...] RADHA DIAZ Date: 2022-05-31 20:33 Normal [facility] Post Op (General Surgery)on 04-02-2021 Post Op [...] not he wants to follow-up with a recreation teacher in our system. Provider Impressions He is [...] not he wants to follow-up with a recreation teacher in our system. Chief Complaint An interactive [...] not he wants to follow-up with a recreation teacher in our system. Active Problems COPD (chronic [...] MG Oral Tablet Results/Data Xray Chest 1 [id number] 04:27PMJim Faith Test NameResultFlagReference Xray Chest 1 View(Report) FINAL REPORT Interpreted by: МАРИНА MARCELO MD 02/12/21 16:52 Patient Name: RIGO JEFFERSON STUDY: CHEST 1 VIEW; 02/12/2021 4:27 pm INDICATION: chest tube removal. COMPARISON: Prior 11:07 a.m. radiograph. ACCESSION NUMBER(S): [id number] ORDERING CLINICIAN: JIM FAITH FINDINGS: Left basilar [...] Apr 02 2021 5:38PM EST (Author) Normal [facility] Admission Risk Screen - Adul ton 02-12-2021 Admission Risk Screen - Adult Allergies: Allergies: No Known Allergies: Patient Verification: New W ID Band Applied in my Departmentno Type of ID Patient is WearingW wristband, but not applied here Patient Transferred from Other Facility ([facility], [facility],etc)no Patient Identity Verified Bypatient ID Band FULL [...] AlertFor Ebola-like Symptoms: Isolate Patient and Notify Provider/Photographic Press Screwmaker For Contact: Notify Provider/Photographic Press Screwmaker Advance Directive: Advance Directive/DNRno (1) Advance Directive [...] Learning Preferencesverbal instruction Cultural Considerationsnone Developmental Considerationsnone Orthodoxy Considerationsnone Learning Assessment (Other Learner): Other learner availableno Depression Screen: During the past month, have you often been bothered by feeling down, depressed or hopelessno (1) During the past month, have you often had little interest or pleasure in doing thingsno (1) Have you had any thoughts of harming anyone elseno (1) [place] Suicide: Risk Screen Not Applicable/Able to Answerable to be screened In the Past Month: Have you wished you were or could go to sleep and not wake upno(1) In the Past Month: Have you had any actual thoughts of killing yourself no(1) Lifetime: Have you ever done, started to do, or prepared to do anything to end your lifeno(1) [place] Suicide Risknegative Adult Nutrition Screen: Have you [...] Pain (nonverbal)verbalization (more content not included)... Normal [facility] BASIC METABOLIC PANELon 02-03 Anion gap [Moles/Vol] 15 mmol/L Normal 10 - 20 [facility] Comment on above: Performed By: #### B MP #### [facility] [address] [place] [address] Calcium [Mass/Vol] 9.5 mg/dL Normal 8.6 - 10.6 [facility] Comment on above: Performed By: #### B MP #### [facility] [address] [place] [address] Chloride [Moles/Vol] 102 mmol/L Normal 98 - 107 [facility] Comment on above: Performed By: #### B MP #### [facility] [address] [place] [address] Creatinine [Mass/Vol] 0.98 mg/dL Normal 0.50 - 1.30 [facility] Comment on above: Performed By: #### B MP #### [facility] [address] [place] [address] GFR- AM. >60 Normal >60 [facility] Comment on above: Result Comment: CALC ULATIONS OF ESTIMATED GFR ARE PERFORMED USING THE MDRD STUDY EQUATION FOR THE IDMS-TRACEABLE CREATININE METHODS. CLIN CHEM 2007;53:766-72 Performed By: #### B MP #### [facility] [address] [place] [address] GFR-NON AM. >60 Normal >60 [facility] Comment on above: Performed By: #### B MP #### [facility] [address] [place] [address] Glucose [Mass/Vol] 133 mg/dL High 74 - 99 [facility] Comment on above: Performed By: #### B MP #### [facility] [address] [place] [address] HCO3 (Bld) [Moles/Vol] 24 mmol/L Normal 21 - 32 [facility] Comment on above: Performed By: #### B MP #### [facility] [address] [place] [address] Potassium [Moles/Vol] 4.3 mmol/L Normal 3.5 - 5.3 [facility] Comment on above: Performed By: #### B MP #### [facility] [address] [place] [address] Sodium [Moles/Vol] 137 mmol/L Normal 136 - 145 [facility] Comment on above: Performed By: #### B MP #### [facility] [address] [place] [address] Urea nitrogen [Mass/Vol] 17 mg/dL Normal 6 - 23 [facility] Comment on above: Performed By: #### B MP #### [facility] [address] [place] [address] CBCon 02-12-2021 Erythrocyte distribution width (RBC) [Ratio] 12.1 % Normal 11.5 - 14.5 [facility] Comment on above: Performed By: #### C BC #### [facility] [address] [place] [address] Hematocrit (Bld) [Volume fraction] 45.8 % Normal 41.0 - 52.0 [facility] Comment on above: Performed By: #### C BC #### [facility] [address] [place] [address] Hemoglobin (Bld) [Mass/Vol] 15.0 g/dL Normal 13.5 - 17.5 [facility] Comment on above: Performed By: #### C BC #### [facility] [address] [place] [address] MCHC (RBC) [Mass/Vol] 32.8 g/dL Normal 32.0 - 36.0 [facility] Comment on above: Performed By: #### C BC #### [facility] [address] [place] [address] MCV (RBC) [Entitic vol] 94 fL Normal 80 - 100 [facility] Comment on above: Performed By: #### C BC #### [facility] [address] [place] [address] NUCLEATED RBC 0.0 /100 WBC Normal 0.0-0.0 [facility] Comment on above: Performed By: #### C BC #### [facility] [address] [place] [address] Platelets (Bld) [#/Vol] 228 10*3/uL Normal 150 - 450 [facility] Comment on above: Performed By: #### C BC #### [facility] [address] [place] [address] RBC 4.85 x10E12/L Normal 4.50 - 5.90 [facility] Comment on above: Performed By: #### C BC #### [facility] [address] [place] [address] WBC (Bld) [#/Vol] 12.8 10*3/uL High 4.4 - 11.3 [facility] Comment on above: Performed By: #### C BC #### [facility] [address] [place] [address] Clinical Event Note-POCon Clinical Event Note-POC Clinical [...] 00:41 by Nataliia Ferris ( (Resident)) Normal [facility] Daily Progress Note-Surgeryo n 02-12-2021 Daily Progress [...] yet. Objective Data: Objective Information: T PRBPSpO2 Value35.26724435/8695% Date/Time02/12 6:4902/12 6:4902/12 6:4902/12 6:4910 6:49 Range(35.4C - 36.4C ) (77 - 99 ) (17 - 18 ) (127 - 147 )/ (86 - 91 ) (95% - 96% ) Pain reported at 02/12 2:54: 6 = Moderate ---- Intake and Output ----- Mn/Dy/Year TimeIntakeOutputNet Feb 12, 2021 6:00 [id number] Feb 11, 2021 10:00 [id number] The Intake and Output Totals for the last 24 hours are: IntakeOutputNet [id number] Physical Exam by System: Constitutional: Well developed, [...] Last Updated: 13-Feb-2021 10:13 by Daniel Caballero) [facility] Discharge Planning Mwgc8ns 0 02-12-2021 Discharge Planning Note2 Discharge Planning: Needs Prior to Discharge (ex. Home Care Orders, IV/O2 prescriptions) Follow up appointments Discharge Barriers (ex. Avoidable days, wait guardianship, pt refuse leave) None Planned Dispositionhome Discharge DestinationHome [facility] Blairs of Choice Explainedyes preference Anticipated Discharge [id number] Discharge Planning 02/12/2021 0135 Discharge Plan Patient transferred from [place] [address] from PACU for diaphragm plication. Pt is A&O times 4. at 3 liters oxygen. Pt denies any medical investigator use at home. Pt emergency contact representative [...] disposition: Home Potential Barriers: none ADOD: 02/12. clinical research coordinator will continue to follow for discharge planning needs. Franny Gilliam RN, Transitional Gun Fitter/TCC, pager [phone] Discharge note: 02/12/21 @ 1735: PT discharged home at this time. pts peripheral IV taken out prior to DC. pt given DC instructions. pt verbalized understanding. pt refused transport and walked downstairs with his son.---Erika stock RN Assessment: Discharge Planning Assessment [id number] Primary Contact Name and NumberAdam [phone](1) Stated Reason for Admissiondiaphragm plication(2) Arrived FromOR (2) Lives Withparent(s)(2) Living Arrangementshouse(2) Resource/Environmental Concernsnone(2) [facility] Services Anticipated at Transitionnone(2) Discharge Documentation: Discharge/Transfer Date/Anmr86-Iex-7813 17:35 Discharge Modeambulatory Discharged Accompanied Byfamily member [...] Profile - Adult v2 12-Feb-2021 01:31 Normal [facility] Discharge Mozfbbq3ph 021 Discharge Profile2 Discharge Orders: Anticipated Discharge Date: Anticipated Discharge [id number]-Scw-2447 DNAR: DNAR Status: none Call Provider If [...] hemidiaphragm plication Call to Schedule in2 weeks [id number] Hilario Crawford [address] Phone [phone] Other Clinician Instructions: Other Instructions: Other Clinician [...] Appointments, Other Clinician Instructions, Gold Form - Surveyor Helper Summary Last Updated: 12-Feb-2021 15:27 by Jim Faith ( (Resident)) Normal [facility] Laboratory - Chemistry and C hemistry - challengeon 02-12-2021 Anion gap [Moles/Vol] 15 mmol/L 10 - 20 QR-Lbaeuaw-E [facility] Work Phone: Calcium [Mass/Vol] 9.5 mg/dL 8.6 - 10.6 MG-Tino raysa-G [facility] Work Phone: Chloride [Moles/Vol] 102 mmol/L 98 - 107 RJ-Kjkyxta-G [facility] [address] Work Phone: CO2 [Moles/Vol] 24 mmol/L 21 - 32 MG-Surger y-G [address] Work Phone: Creatinine [Mass/Vol] 0.98 mg/dL See Below EV-Ixtmqjk-N [address] Work Phone: Comment on above: Reference Range: 0.5 0 - 1.30 Glucose [Mass/Vol] 133 mg/dL above high threshold 74 - 99 GL-Zmnpszd-F [address] Work Phone: [phone] Potassium [Moles/Vol] 4.3 mmol/L 3.5 - 5.3 RH-Gtuuwnx-E [address] Work Phone: [phone] Sodium [Moles/Vol] 137 mmol/L 136 - 145 MG[facility]Tino raysa[facility] Work Phone: [phone] Urea nitrogen [Mass/Vol] 17 mg/dL 6 - 23 SP-Cmqezky-I [facility] Work Phone: [phone] Laboratory - Hematology and Cell countson 02-12-2021 Erythrocyte distribution width (RBC) [Ratio] 12.1 % See Below CZ-Eqyynhd[facility] Work Phone: [phone] Comment on above: Reference Range: 11. 5 - 14.5 Hematocrit (Bld) [Volume fraction] 45.8 % See Below FG-Hjocsza-Q [address] Work Phone: [phone] Comment on above: Reference Range: 41. 0 - 52.0 Hemoglobin (Bld) [Mass/Vol] 15.0 g/dL See Below OY-Asykuea-A [address] Work Phone: [phone] Comment on above: Reference Range: 13. 5 - 17.5 MCHC (RBC) [Mass/Vol] 32.8 g/dL See Below VG-Rieidpw-A [address] Work Phone: [phone] Comment on above: Reference Range: 32. 0 - 36.0 MCV (RBC) [Entitic vol] 94 fL 80 - 100 SW-Kprwlma-R [address] Work Phone: [phone] Platelets (Bld) [#/Vol] 228 10*3/uL 150 - 450 SA-Qzaxekq[facility] Work Phone: [phone] RBC (Bld) [#/Vol] 4.85 {x10E12/L} See Below MG -Surgery-G [address] Work Phone: Comment on above: Reference Range: 4.5 0 - 5.90 WBC (Bld) [#/Vol] 12.8 10*3/uL above high threshold 4.4 - 11.[address] HR[address]Wcwssvz-Z [address] Work Phone: No Panel Informationon 02-12 >60 >60 HX-Jsbkqqi-S [address] Work Phone: Comment on [...] tab(s) orally 2 times a day Normal [facility] Patient Profile - Adult v2on 02-12-2021 Patient Profile - Adult v2 Profile: Initial Info: How to be AddressedDel(1) Spoken Language PreferredEnglish (1) Stated Reason for Admissiondiaphragm plication Patient Belongingsremains with patient Patient Belongings Remaining with Patientcash/credit card; clothing Arrived FromOR Medications Brought to Hospitalno Are you currently using the Personal Electronic Health Record or [employer]no (1) Wants Family/Rep Notified of Admissionyes, primary contact Notify PCPnotify PCP Informed of Patient Visiting Rightsyes General Health: Blood Avoidance/Restrictionsnone (1) Previous Transfusion Reactionno(2) Weight in kg109.8 kilogram(s)(3) Weight in gig718 pound(s) Weight Methodactual (measured) (3) Scale Typestanding [...] From 1. Vital Signs 11-Feb-2021 12:02 Normal [facility] Radiologyon 02-12-2021 XR Chest Single view Normal KV-Dkgudqc-N [address] Work Phone: XR Chest Single view Normal CB-Tagyeey-[address] Work Phone: XR Chest Single view Normal UD-Frhbqjt-Z [address] Work Phone: TH CHEST 1 VIEWon 02-12-2021 TH CHEST 1 VIEW Patient Name: RIGO JEFFERSON STUDY: CHEST 1 VIEW; 02/12/2021 4:27 pm INDICATION: chest tube removal. COMPARISON: Prior 11:07 a.m. radiograph. ACCESSION NUMBER(S): [id number] ORDERING CLINICIAN: JIM FAITH FINDINGS: Left basilar [...] Electronically signed by: МАРИНА MARCELO MD Normal [facility] TH CHEST 1 VIEW Patient Name: RIGO JEFFERSON STUDY: CHEST 1 VIEW; 02/12/2021 11:58 am INDICATION: chest tube wet seal. COMPARISON: 7:02 a.m. radiograph. ACCESSION NUMBER(S): [id number] ORDERING CLINICIAN: JIM FAITH FINDINGS: Left basilar [...] Electronically signed by: МАРИНА MARCELO MD Normal [facility] TH CHEST 1 VIEW Patient Name: RIGO JEFFERSON STUDY: CHEST 1 VIEW; 02/12/2021 7:13 am INDICATION: POD 1 s/p diaphragm plication. COMPARISON: 02/11/2021. ACCESSION NUMBER(S): [id number] ORDERING CLINICIAN: JANE YO FINDINGS: Left basilar [...] small left pleural effusion. Electronically signed by: МАИРНА MARCELO MD [facility] No Panel Informationon 02-11 [place] [address] Work Phone: Operative Reports - [facility] [place] [address] Patient Name: RIGO JEFFERSON : 1960 Date of Service: 02/11/2021 Patient Location: [place] [address] Patient Type: I Surgeon: Daniel Caballero MD Report Type: Operative Reports PREOPERATIVE DIAGNOSIS: Chronic respiratory failure, left diaphragm dysfunction. POSTOPERATIVE DIAGNOSIS: Chronic respiratory failure, left diaphragm dysfunction. OPERATION/PROCEDURE: Laparoscopic left diaphragm plication with removal of previous diaphragm pacing wires. SURGEON: Daniel Caballero MD RETAIL AND PROMOTIONS COORDINATOR(S): Jane Yo MD. There was no available resident. ANESTHESIA: LOCATION: [facility]. CLINICAL NOTE: This is a patient with [...] TT: 02/12/2021 12:44 PM EST DICTATION NUMBER: [id number] BRIE JOB NUMBER: [id number] CC: PT STATES NONE PCP Electronic Signatures: Daniel Caballero) (Signed on 13-Feb-2021 10:15) Authored Unsigned, Draft (SYS GENERATED) (Entered on 12-Feb-2021 12:44) Entered Last Updated: 13-Feb-2021 10:15 by Daniel Caballero) Normal [facility] Order Reconciliationon 02-11 Order Reconciliation Page 1 Admission Reconciliation Document Reconciliation Type: Admission from OR requested on behalf of Jane Yo (Physician) done by Jane Yo) Admission from OR - Reconciliation: 11-Feb-2021 18:31 by: Jane Yo) Home MedicationsEnteredLast Dose TakenReconciled with current Order Reconciliation Comment/ Additional Information Kristina 24 Hour Allergy oral tablet 1 tab(s) orally once a [id number]-[id number]-Feb-2021 AM Reviewed and Held clarithromycin 250 mg oral tablet 250 milligram(s) orally once a day Clarithromycin Tablet (BIAXIN)DOSE = 250 mg Oral Every 24 Hoursclarithromycin 250 mg oral tablet continued as the inpatient order Clarithromycin diclofenac sodium 50 mg oral delayed release tablet 1 tab(s) orally 2 times a [id number]-[id number]-Rea-2278 AM Reviewed and Held oxycodone-acetaminophen 5 mg-300 mg oral tablet 1 tab(s) orally 2 times a day [id number] AM Reviewed and Held Additional Current Orders [...] 15 minute(s)Clinician Notes: Carlota-operative order ONLY Normal [facility] Patient Profile - Preop v2on 02-11-2021 Patient Profile - Preop v2 Profile: Initial Info: How to be AddressedDel(1) Spoken Language PreferredEnglish (1) Source of Informationpatient Are you currently using the Personal Electronic Health Record or [employer]no (1) Are you interested in learning more about [employer] for the management of your healthnot at this time Stated Reason for AdmissionL pulling of wires/pulling lung down Primary Contact Name and NumberSahil [phone] Patient Belongingspatient educated regarding responsibility for personal items Medications Brought to Hospitalno General Health: Weight in kg109.8 kilogram(s) Weight in ooz934 pound(s) Weight Methodactual (measured) Scale Typestanding Height [...] Learning Preferencesverbal instruction Cultural Considerationsnone Developmental Considerationsnone Orthodoxy Considerationsnone Other learner availableno [place] RiskPatient location auto qualifies him/her for HIGH RISK. Are there any cultural, spiritual, tenriism practices/values/needs that are important for us to [...] Profile - Adult v2 12-Dec-2017 16:00 Normal [facility] Preop Checkliston 02-11-2021 Preop Checklist Preop Checklist: Preop Checklist: Arrival [id number]-Tql-7156 Arrival Time11:48 Procedure TypeL laparoscopic diaphragm plication Temperature C36.1 degrees C Temperature F96.9 degrees F Heart Rate70 beats per minute Respiratory Rate12 breath per minute Blood Pressure Totzhbvs715 mm/Hg Blood Pressure Weqesmzfy27 mm/Hg NPO Neqaiz29-Mov-7050 00:00 ID Band Onyes Allergy Bandno known [...] 11-Feb-2021 12:02 by Jany Ann (RN) Normal [facility] Radiologyon 02-11-2021 XR Chest Single view Please click on the link to view the study images Normal [place] [address] Work Phone: [facility] Surgical Pathology Depar tmenton 02-11-2021 [facility] Surgical Pathology Department Name RIGO JEFFERSON Pathologist: JACINTO MURRIETA MD Date of Procedure: 02/11/2021 Date Received: 02/12/2021 Date Reported 02/19/2021 Submitting Physician: DANIEL CABALLERO M.D. Location: [facility] Copy To/Referring/Attending: DANIEL CABALLERO M.D. [...] this case. Clinical History: Physician Contact Number: [phone] Fixative (A): Fresh Clinical Diagnosis History: disorders of diaphragm Specimens Submitted As: A: PACING WIRE Gross Description: Received in formalin, labeled with the patient's name and hospital number, are multiple wires with a piece of adipose tissue attached measuring 3.0 x 1.6 x 1.0 cm. A photograph is taken. The attached soft tissue is submitted entirely in one cassette. EXB exb/02/12/2021 [facility] Department of Pathology [id number] [place] [address] Normal [facility] Comment on above: Performed By: #### U HCS ####[facility] Surgical Pathology [address] [place] [address] CORONAVIRUS 2019, SCREEN ASY MPTOMATICon 02-10-2021 SARS-CoV-2 (COVID-19) RNA BECCA+probe Ql (Unsp spec) Not detected Normal Not Detected [facility] Comment on above: Result Comment: . This [...] patient management decisions. Fact sheet for providers: https://www.fda.gov/media/559268/download Fact sheet for patients: https://www.fda.gov/media/222343/download This test has received FDA Emergency Use Authorization (EUA) and has been verified by [facility] ([facility]). This test is only authorized for the duration of time that circumstances exist to justify the authorization of the emergency use of in vitro diagnostic tests for the detection of SARS-CoV-2 virus and/or diagnosis of COVID-19 infection under section 564(b)(1) of the Act, 21 U.S.C. 360bbb-3(b)(1), unless the authorization is terminated or revoked sooner. [facility] is certified under CLIA-88 as qualified to perform high complexity testing. Testing is performed in the [facility] laboratories located at [address] [place] [address]. Performed By: #### C OVSC #### [place] [address] Covid 19 Resultson SARS-CoV-2 (COVID-19) RNA BECCA+probe [...] may also be contacted by the [facility] to see if any of your [...] or Naproxen (Aleve) can also be used. Htyu-ycu-iyxruut cough and cold medicines can be used according to the instructions on the package. Some sbav-bor-sncvacm medicines also contain acetaminophen. Make sure you [...] water are not available, use alcohol-based hand contractor general engineering. Avoid touching your eyes, nose, and mouth [...] 24 alem (more content not included)... Normal [facility] CORONAVIRUS 2019, SCREEN ASY MPTOMATICon 02-09-2021 Lab Specimen Source Nasal, Nasopharyngeal Normal [facility] Comment on above: Performed By: #### C OVSC #### [facility] [id number] [place] [address]. [place] [address] Coronavirus 2019 RNA by PCR, Screening Asymptomticon 02-09-2021 Coronavirus 2019 RNA by PCR, Screening Asymptomtic Not detected Normal See Below KL-Ohxuyzs-[address] Work Phone: Comment on [...] make patient management decisions.Fact sheet for providers: https://www.fda.gov/media/663630/downloadFact sheet for patients: https://www.fda.gov/media/995143/downloadThis test has received FDA Emergency Use Authorization (EUA) and has been verified by [facility] ([facility]). This test is only authorized for the duration of time that circumstances exist to justify the authorization of the emergency use of in vitro diagnostic tests for the detection of SARS-CoV-2 virus and/or diagnosis of COVID-19 infection under section 564(b)(1) of the Act, 21 U.S.C. 360bbb-3(b)(1), unless the authorization is terminated or revoked sooner. [facility] is certified under CLIA-88 as qualified to perform high complexity testing. Testing is performed in the [facility] laboratories located at [address] [place] [address]. BASIC METABOLIC PANELon 05-2 Anion gap [Moles/Vol] 13 mmol/L Normal 10 - 20 [facility] Comment on above: Performed By: #### B MP ####[id number] [place] [address] Calcium [Mass/Vol] 9.7 mg/dL Normal 8.6 - 10.6 [facility] Comment on above: Performed By: #### B MP ####[id number] [place] [address] Chloride [Moles/Vol] 108 mmol/L High 98 - 107 [facility] Comment on above: Performed By: #### B MP ####[id number] [place] [address] Creatinine [Mass/Vol] 1.04 mg/dL Normal 0.50 - 1.30 [facility] Comment on above: Performed By: #### B MP ####[id number] [place] [address] GFR- AM. >60 Normal >60 [facility] Comment on above: Result Comment: CALC ULATIONS OF ESTIMATED GFR ARE PERFORMED USING THE MDRD STUDY EQUATION FOR THE IDMS-TRACEABLE CREATININE METHODS. CLIN CHEM 2007;53:766-72 Performed By: #### B MP ####[id number] [place] [address] GFR-NON AM. >60 Normal >60 [facility] Comment on above: Performed By: #### B MP ####[id number] [place] [address] Glucose [Mass/Vol] 91 mg/dL Normal 74 - 99 [facility] Comment on above: Performed By: #### B MP ####[id number] [place] [address] HCO3 (Bld) [Moles/Vol] 29 mmol/L Normal 21 - 32 [facility] Comment on above: Performed By: #### B MP ####[id number] [place] [address] Potassium [Moles/Vol] 4.6 mmol/L Normal 3.5 - 5.3 [facility] Comment on above: Performed By: #### B MP ####[id number] [place] [address] Sodium [Moles/Vol] 145 mmol/L Normal 136 - 145 [facility] Comment on above: Performed By: #### B MP ####[id number] [place] [address] Urea nitrogen [Mass/Vol] 13 mg/dL Normal 6 - 23 [facility] Comment on above: Performed By: #### B MP ####[id number] [place] [address] CBCon 01-27-2021 Erythrocyte distribution width (RBC) [Ratio] 12.2 % Normal 11.5 - 14.5 [facility] Comment on above: Performed By: #### C BC ####[id number] [place] [address] Hematocrit (Bld) [Volume fraction] 46.7 % Normal 41.0 - 52.0 [facility] Comment on above: Performed By: #### C BC ####[id number] [place] [address] Hemoglobin (Bld) [Mass/Vol] 15.1 g/dL Normal 13.5 - 17.5 [facility] Comment on above: Performed By: #### C BC ####[id number] [place] [address] MCHC (RBC) [Mass/Vol] 32.3 g/dL Normal 32.0 - 36.0 [facility] Comment on above: Performed By: #### C BC ####[id number] [place] [address] MCV (RBC) [Entitic vol] 96 fL Normal 80 - 100 [facility] Comment on above: Performed By: #### C BC ####[id number] [place] [address] NUCLEATED RBC 0.0 /100 WBC Normal 0.0-0.0 [facility] Comment on above: Performed By: #### C BC ####[id number] [place] [address] Platelets (Bld) [#/Vol] 209 10*3/uL Normal 150 - 450 [facility] Comment on above: Performed By: #### C BC ####[id number] [place] [address] RBC 4.85 x10E12/L Normal 4.50 - 5.90 [facility] Comment on above: Performed By: #### C BC ####[id number] [place] [address] WBC (Bld) [#/Vol] 7.2 10*3/uL Normal 4.4 - 11.3 [facility] Comment on above: Performed By: #### C BC ####[id number] [place] [address] Follow Up (General Surgery)o n 01-27-2021 Follow [...] EKG; Status:Hold For - Scheduling; Requested for:27Jan2021; Perform:[facility] [place] 1800; Due:27Apr2021;Ordered; For:Diaphragm dysfunction, [...] 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 Normal [employer] No Panel Informationon 01-27 [email or web address] 1:8080 [email or web address]?R etrieveTestByDateTime?Sherita [id number]&Date=&Time=13%3a24%3a34%3a 00&TestType=ECG&Site=1&Out putType=PDF&Ext=PDF BF-Cvtehna-[address] Work Phone: Normal sinus rhythm MG-Ramos rgery-[address] Work Phone: Normal MY-Gwevcvq-[address] Work Phone: [phone] HT-Qjpkvkw-[address] Work Phone: [phone] NQ-Tllsvbb-[address] Work Phone: [phone] 1 WX-Ovowkdl-[address] Work Phone: 147 1 LZ-Ymchcsl-[address] Work Phone: [phone] 1 JC-Pnnobbe-[address] Work Phone: 11 1 XG-Jlctjeb-[address] Work Phone: [phone] IC-Hsjpnxw-[address] Work Phone: 26 1 NX-Punwhxp-[address] Work Phone: 40 1 OQ-Ssglrfd-[address] Work Phone: [phone] AK-Fpdawmw-[address] Work Phone: [phone] 1 VG-Oeaxqfn-[address] Work Phone: 92 1 EL-Jahejfr-T [address] Work Phone: 154 1 BB-Ffvmkit-[address] Work Phone: 70 1 GJ-Hejwxvv-Q [address] Work Phone: Radiologyon 01-27-2021 XR Chest 2 Views Normal MG-Surge ry-[address] Work Phone: TH CHEST 2 VIEW PA AND LATon 01-27-2021 TH CHEST 2 VIEW PA AND LAT Patient Name: RIGO JEFFERSON STUDY: TH CHEST 2 VIEW PA AND LAT; 01/27/2021 11:00 am INDICATION: chronic hypoventilation. COMPARISON: Chest radiograph 04/03/2019 ACCESSION NUMBER(S): [id number] ORDERING CLINICIAN: DANIEL CABALLERO FINDINGS: Inspiratory and [...] Electronically signed by: ANGI CAICEDO MD Normal [facility] Tobacco Screening.on 021 Tobacco use status CP b) No GA-Ppnpvsh-[address] Work Phone: Tobacco Screening. b) No MG-Tino raysa-[address] Work Phone: Otheron 04-03-2019 XR Chest 2 views Interpreted by: ISAK04/03/19 14:06MRN: [id number] Name: RIGO JEFFERSON STUDY:CHEST 2 VIEW PA [...] Electronically signed by: ISAK 04/03/19 14:06 Normal PK-Gdtbeae-[address] Work Phone: Vital Signs Date Time Vital Sign Value Performing Clinician Facility 02-12-2021 14:10-0400 SaO2% (BldA) [Mass fraction] 95 % No Pcp Required [facility] 02-12-2021 14:00-0400 Body temperature 97.16 [degF] No Pcp Required [facility] 02-12-2021 14:00-0400 Diastolic blood pressure 83 mm[Hg] No Pcp Required [facility] 02-12-2021 14:00-0400 Heart rate 81 /min No Pcp Required [facility] 02-12-2021 14:00-0400 Respiratory rate 18 /min No Pcp Required [facility] 02-12-2021 14:00-0400 Systolic blood pressure 131 mm[Hg] No Pcp Required [facility] 02-12-2021 03:31-0400 Body height 182.8 cm No Pcp Required [facility] 02-12-2021 03:31-0400 Body weight 109.8 kg No Pcp Required [facility] 01-27-2021 11:12-0400 Body mass index (BMI) [Ratio] 33.64 kg/m2 Daniel Caballero MD Work Phone: ZH-[address]mbu[address] Work Phone: 01-27-2021 11:12-0400 Body surface area Derived from formula 2.33 m2 Daniel Caballero MD Work Phone: QL-Ptuxewf-[address] Work Phone: 01-27-2021 11:12-0400 Body temperature 96.1 [degF] Daniel Caballero MD Work Phone: RJ-[address] Work Phone: 01-27-2021 11:12-0400 Body weight 112.49 kg Daniel Caballero MD Work Phone: QO-Pufjcpx-[address] Work Phone: 01-27-2021 11:12-0400 Diastolic blood pressure 85 mm[Hg] Daniel Caballero MD Work Phone: KB-[address] Work Phone: 01-27-2021 11:12-0400 Heart rate 77 /min Daniel Caballero MD Work Phone: KH-Hpefixu-[address] Work Phone: 01-27-2021 11:12-0400 Systolic blood pressure 157 mm[Hg] Daniel Caballero MD Work Phone: RN-Llvkuoe-[address] Work Phone: 04-03-2019 15:37-0400 BMI (Body Mass Index) 30.11 kg/m2 Chandan [place] [facility] -[place] [address]99 Work Phone: 04-03-2019 15:37-0400 Body Temperature 97.9 [degF] Chandan [place] ZP-Medqoar-[address]99 Work Phone: 04-03-2019 15:37-0400 Body weight 100.7 kg Chandan [place]on AA-Acmtibc-Tfgai ll 2099 Work Phone: 04-03-2019 15:37-0400 BP Diastolic 74 mm[Hg] Chandan [place] UA-Nlcmvpu-Gsbjj ll 2099 Work Phone: 04-03-2019 15:37-0400 BP Systolic 121 mm[Hg] Chandan [place] DR-Xjlaxvu-Ylitj ll 2099 Work Phone: 04-03-2019 15:37-0400 BSA (Body Surface Area) 2.23 m2 Chandan [place]-Udnxwyz-Nmyehgu 2099 Work Phone: 04-03-2019 15:37-0400 Height 182.88 cm Chandan Travon LG-Xawcubc-Chmax ll 2099 Work Phone: 04-03-2019 15:37-0400 Pulse (Heart Rate) 58 /min Chandan Travon IU-Ztdaerp-[address] 2100 Work Phone: Encounters Encounter Date [...] related to original px No PCP None ZF-[address] Work Phone: Start: 02-20-2021 Chart Update No PCP None MG-Surgery -[address] Work Phone: Start: 02-11-2021 End: 02-12-2021 Evaluation and management of inpatient Daniel Onders [facility] Lksd 55 Rm 5511 01 Start: 01-27-2021 Chart Update Daniel Caballero MD Work Phone: HK-Gnjrolt-[address] Work Phone: Start: 04-03-2019 Patient encounter procedure Chandan Cool QH-Rfjvonn-[address] Work Phone: Start: 01-12-2018 Patient encounter procedure Chandan Cool CW-Dtjmfsx-[address] Work Phone: Start: 11-28-2017 Patient encounter procedure Chandan Cool EW-Rvwmvts-[address] Work Phone: Start: 11-28-2017 Patient encounter procedure Chandan Cool MH-Axoulkg-[address] Work Phone: Procedures Date Procedure [...] End: 11-Feb-2022 Ordered: 11-Feb-2021 Jane Yo Intent [facility] Payers Date Payer Category Payer Unknown [id number] 2018 Unknown 1960 Medicare [id number] 1960 Unknown [id number] 2.16.84 0.1.310109.3.579.2.593 1959 Unknown [id number] 2.16.84 0.1.131651.3.579.2.593 1959 Unknown [id number] 2.16.84 0.1.867139.3.579.2.593 1959 Unknown [id number] 2.16.84 0.1.528470.3.579.2.593 1959 Unknown [id number] 2.16.84 0.1.598235.3.579.2.593 1959 Unknown [id number] 2.16.84 0.1.748795.3.579.2.593 1959 Unknown [id number] 2.16.84 0.1.071493.3.579.2.593 1959 Unknown [id number] 2.16.84 0.1.826547.3.579.2.593 1959 Unknown [id number] 2.16.84 0.1.707273.3.579.2.593 1959 Unknown [id number] 2.16.84 0.1.874688.3.579.2.593 1959 Unknown [id number] 2.16.84 0.1.867101.3.579.2.1259 1959 Unknown [id number] 2.16.84 0.1.936199.3.579.2.1259 1959 Unknown [id number] 2.16.84 0.1.094839.3.579.2.1259 1959 Unknown [id number] 2.16.840 .1.402762.3.579.2.1259 Social History Date Type Detail Facility Former smoker Former smoker NM-Tiiqjew[address] Work Phone: Tobacco smoking consumption unknown [facility] NEGATED: Highlighted row - - MG- Surgery-[address] Work Phone: Functional Status Date Assessment Result Facility Functional observable [facility] NEGATED: Highlighted row Functional performance Functional status health issues are not documented Disease ME-Ncvrhjj-[address] Work Phone: Mental Status Date Assessment Result Facility 02-12-2021 Cognitive functi ons [id number] [facility] NEGATED: Highlighted row Cognitive function [Interpretation] Cognitive status health issues are not documented Disease WP-Hjkpxcx-[address] Work Phone: Clinical Notes 02-11-2021 [...] our patients to inform us about any qxwc-rnm-lidifgb medications or herbal remedies/nutritional supplements/alternative remedies. 2. [...] options with their primary care provider. [facility] 11-25-2022 Note CONSULTATION CONSULTATION DATE: 11/25/2022 TO: [...] of his shoulders, bilaterally, without contrast. [facility] 09-03-2022 Note CONSULTATION CONSULTATION DATE: 09/03/2022 HISTORY [...] three months' time, unless otherwise indicated. [facility] 06-01-2022 Note CONSULTATION CONSULTATION DATE: 06/01/2022 CHIEF [...] three months. CC: Shaikh Romero M.D. [facility] 05-18-2022 Note CONSULTATION CONSULTATION DATE: [...] to proceed. CC: Shaikh Romero M.D. [facility] 05-18-2022 Note CONSULTATION PROCEDURE DATE: 05/18/2022 PREOPERATIVE [...] be followed up in the office. [facility] 04-29-2022 Note CONSULTATION CONSULTATION DATE: 04/29/2022 HISTORY [...] for his injections with Dr. Duncan. [facility] 01-27-2022 Note CONSULTATION CONSULTATION DATE: 01/27/2022 HISTORY [...] in three month's time, unless otherwise indicated. [facility] Signed and Approved by: RAVINDER ANDERSEN . 02/04/2022 16:12:00 [facility] 02-12-2021 Note Send Summary: Discharge Summary Providers: [...] at Discharge: .Home Vital Signs: T PRBPSpO2 Value36.93603091/8395% Date/Time02/12 12: 12: 12: 12: 12:10 Range(35.4C - 36.4C ) (77 - 99 ) (17 - 18 ) (127 - 147 )/ (83 - 91 ) (92% - 96% ) As of 12-Feb-2021 12:10:00, patient is on 2 L/min of oxygen Date: Weight/Scale Type:Height: 12-Feb-2021 01:45420.8 kg / msjgjeer252.8 cm Hospital Course: 60 yo male with [...] Call to Schedule in: 2 weeks Location: [address] [place] [address] Discharge Medications: Home Medication clarithromycin 250 mg [...] Last Updated: 13-Feb-2021 10:13 by Daniel Caballero) [facility] 02-11-2021 Note Post Operative Note: PreOp Diagnosis: diaphragm paralysis Post-Procedure Diagnosis: same Procedure: 1. laparoscopic L diaphragm plication 2. removal of bilateral diaphragm pacing wires 3. L pigtail chest tube placement Surgeon: Dr Daniel Caballero Resident/Fellow/Other Electric Organ Checker: Dr Jane Yo Anesthesia: GETA Estimated Blood [...] Last Updated: 12-Feb-2021 07:53 by Daniel Caballero) [facility] 02-11-2021 Note History & Physical R eviewed: [...] Last Updated: 11-Feb-2021 15:50 by Daniel Caballero) [facility] Chief complaint Narrative - Reported An interactive audio and video telecommunication system which permits real time communications between the patient (at the originating site) and provider (at the distant site) was utilized to provide this telehealth service.Post op RF-[address] Work Phone: Evaluation note Constitutional: Well developed, awake/alert/oriented x3, no distress, alert and cooperativeSkin: warm and dryEyes: PERRL, EOMI, clear scleraENMT: MMMHead/Neck: NCATRespiratory/Thorax: good chest expansion, thorax symmetricCardiovascular: RRRGastrointestinal: Nondistended, soft, non-tender, no rebound tenderness or guardingMusculoskeletal: moves all extremitiesExtremities: well perfusedNeurological: grossly intactPsychological: Appropriate mood and behavior [facility] History of Present illness Narrative He is [...] not he wants to follow-up with a recreation teacher in our system. [place] [address] Work Phone: Hospital Discharge instructions Call Provider [...] weekFollow Up Appointment 2:Physician/Dept/Service: Dr. Caballero - [facility] for Referral: hospital follow-up / diaphragm pacer removal, hemidiaphragm plicationLocation: [address] [address] Number: [phone] Form - Other Clinicians:Other Clinician Instructions: Please take your medications as directed. Please follow-up with Dr. Caballero and with your PCP as directed. You may remove dressings and shower Tuesday. No heavy lifting >20lbs or strenours activity for 3 weeks. If your symptoms return or worsen, please seek medical attention. Thank you for allowing us to participate in your care. [facility] Family History No Family History Records Found [...] section and content) DATE CREATED AUTHOR 04/04/2021 [employer] DATE CREATED AUTHOR AUTHOR'S ORGANIZ ATION 04/08/2021 [facility] DATE CREATED AUTHOR AUTHOR'S ORGANIZ ATION 12/31/2022 [facility] DATE CREATED AUTHOR AUTHOR'S ORGANIZ ATION 11/24/2023 [facility] FOR RECORDS PERTAINING TO PATIENTS [...] BE BASED ON THE PRIMARY CLINICAL RECORDS. [employer] [facility]. provides no warranty or guarantee of the accuracy or completeness of information in this document.
--- NOTE | 2023-12-29 09:39 | P.CN_ITS ---
Consult Note: HPI Data of Consult Patient: known to practice within the last 3 years Requesting Physician: Sho Galdamez NP Primary Care Provider: Shaikh Helena MD Consult Narrative Reason for consult: f/u Narrative: Ryan Pete a pleasant 63 year old male presents for evaluation of chronic pain. Today pain 4/10 in low back, ache worse with activity. increases to 6/10 at its worst, overall well controlled with current medication regimen without side effects.. Patient reports moderate benefit from current medication regimen and would like to continue on these medications. Patient finding benefit to chiropractor every few weeks. Patient reporting pain in left shoulder/neck, low back, left hip, generalized soreness. STEWART 33%. Recent left hip injection providing 70% improvement ongoing. cc:: CC: Sho Galdamez NP Review of Systems ROS Status of ROS 10 or more systems reviewed and unremark able except as noted in history and below Musculoskeletal Reports: back pain, neck pain and joint pain [facility] Medical History (Updated 12/29/23 @ 09:49 by Sho Galdamez NP) COPD (chronic obstructive pulmonary disease) ?J44.9 - Chronic obstructive pulmonary disease, unspecified (ICD-10) Rheumatoid arthritis ?M06.9 - Rheumatoid arthritis, unspecified (ICD-10) Upper back pain ?M54.9 - Dorsalgia, unspecified (ICD-10) Low back pain ?M54.50 - Low back pain, unspecified (ICD-10) Uses continuous positive airway pressure (CPAP) ventilation at home ?Z99.89 - Dependence on other enabling machines and devices (ICD-10) Emphysema lung ?J43.9 - Emphysema, unspecified (ICD-10) Hypertension ?I10 - Essential (primary) hypertension (ICD-10) Surgical History Hx of cholecystectomy ?Z90.49 - Acquired absence of other specified parts of digestive tract (ICD- 10) H/O cardiac catheterization ?Z98.890 - Other specified postprocedural states (ICD-10) H/O heart bypass surgery ?Z95.1 - Presence of aortocoronary bypass graft (ICD-10) History of lung surgery ?Z98.890 - Other specified postprocedural states (ICD-10) History of tonsillectomy ?Z90.89 - Acquired absence of other organs (ICD-10) H/O cervical spine surgery ?Z98.890 - Other specified postprocedural states (ICD-10) H/O carpal tunnel repair ?Z98.890 - Other specified postprocedural states (ICD-10) H/O arthroscopy of knee ?Z98.890 - Other specified postprocedural states (ICD-10) Meds Home Medications and Allergies Home Medications ?Medication ?Instructions ?Recorded ?Confirmed ?Type atorvastatin 40 mg tablet (Lipitor) 40 mg PO DAILY 02/17/23 12/20/23 History baclofen 10 mg tablet 10 mg PO BID 02/17/23 12/20/23 History lidocaine 5 % topical patch 1 patch topical DAILY 02/17/23 12/20/23 History (Lidoderm) oxycodone-acetaminophen 5 mg-325 1 tab PO QID 02/17/23 12/20/23 History mg tablet (Percocet) fexofenadine 60 mg tablet (Kristina 60 mg PO BID 12/13/23 12/20/23 History Allergy) testosterone enanthate 50 mg/0.5 50 mg subcut QWEEK 12/13/23 12/20/23 History mL subcutaneous auto-injector (Xyosted) ibuprofen 200 mg tablet 800 mg PO TID PRN pain 12/20/23 12/20/23 History oxycodone-acetaminophen 5 mg-325 1 tab PO QID PRN pain #120 tabs 12/20/23 Rx mg tablet (Percocet) Allergies Allergy/AdvReac Type Severity Reaction Status Date / Time No Known Drug Allergies Allergy Verified 12/20/23 07:39 Exam Constitutional Documenting provider has reviewed patient's vital signs: yes Common normals: no apparent distress, oriented x3, healthy appearing, alert and well nourished General appearance: cooperative HENMT Common normals: normocephalic, hearing grossly normal bilaterally and moist oral mucous membranes Head and scalp: normocephalic Eye Common normals: PERRL Pupil: PERRL Neck & C-Spine Common normals: full ROM General: normal visual inspection Cervical spine: cervical ROM normal, pain with cervical ROM, paracervical muscle tenderness and trapezius muscle tenderness Chest Common normals: inspection of chest normal Respiratory Common normals: normal respiratory effort, no retractions and no use of accessory muscles Back & Pelvis Lumbar spine/lower back: lumbar ROM normal, pain with ROM and straight leg raise negative bilaterally Sacroiliac joints: SI joint(s) abnormal (pain with bilateral sho, fadir, thigh thrust) Extremity Common normals: normal to inspection Right lower extremity: hip joint and knee joint Left lower extremity: hip joint Other: left hip: no pain with internal and external rotation right hip: mild to moderate pain with internal and external rotation left knee enlarged diameter, mild edema, pain with medial and lateral stress testing, crepitus noted on exam Neuro Common normals: oriented x3, CN's II-XII intact bilaterally, moves all extremities, no focal motor deficits, no sensory deficits noted and deep tendon reflexes 2+ bilaterally Sensorium/orientation: alert Motor exam: strength 5/5 throughout and no movement abnormalities noted Psych Common normals: mental status grossly normal, thought process normal, cooperative, affect normal, speech normal and activity/motor behavior normal Speech: normal speech Thought process: normal thought process Results Additional Findings Additional findings: If on a controlled substance or opioids, I have checked an [place] report on this patient and there are no aberrancies noted in the prescribing history.??If on a controlled substance or opioid a drug screen was completed and reviewed within the last year, and if there has not been a drug screen completed we ordered one today to monitor higher risk, state monitored pain medication use. As part of providing excellent, safe, comprehensive care, the following was completed at our patient's visit: 1. A medication reconciliation and review to ensure accurate knowledge of current/active medications, including asking our patients to inform us about any [id number] medications or herbal remedies/nutritional supplem ents/alternative remedies. 2. A review to specifically ensure our patients have had annual screening for screening for depression, screening for tobacco use, and screening for unhealthy alcohol use. For concerning screenings had a discussion with the patient, provided patient education, and recommended follow-up with primary care provider when appropriate. If patient noted with a risk of falling, they received education on strength, gait, and balance training to prevent future risk of falling. Assessment and Plan Assessment and Plan (1) Left knee pain: (2) Osteoarthritis of left hip: (3) Bilateral hip pain: (4) Encounter for long-term opiate analgesic use: Assessment and Plan: I feel these medications are improving the patient's quality of life and allow them to tolerate activities of daily living as well as participate in recreational activity.? The patient does not report intolerable side effects. The patient is NOT opioid naive and non-pharmacologic and non-opioid treatment has failed to significantly relieve the patient's pain and improve functionality. The patient has a diagnosis that is related to a somatic or visceral pain etiology. ? ?? I reviewed with the patient the potential risks and side effects with the use of? opioid medications including but not limited to respiratory depression,? sedation, and even . I verified the patient has access to naloxone should? these effects occur. I advised the patient to avoid the use of any other? sedation substances including alcohol, THC, and benzodiazepines while? taking opioid medications due to the risk of compounding side effects and? detrimental outcomes. I reviewed the [employer], pain treatment agreement, urine? drug screen, and opioid start talking forms. The patient was advised to let? their family know they had Naloxone in case they would need to administer? the medication.? ?? A drug screen was completed within the last year, and no aberrancies were noted regarding their use of controlled substances. The patient understands they are subject to the terms and conditions of the pain contract that they have signed. ? ?? I have checked an [place] report on this patient today and there are no aberrancies noted in the prescribing history.? patient reports improvement in functional ability, able to work outside and take care of his house with less pain, participate in hobbies denies side effects from medication regimen (5) Osteoarthritis: (6) Lumbar spondylosis: (7) Shoulder arthritis: Plan declining additional injection therapy, would benefit from lumbar facet blocks and RFA reports left lung no longer works after cervical RFAs in the past, follows with PCP and pulmonology continue current medication regimen, finds functional improvement without side effects continue HEP as tolerated f/u 3 months, sooner if needed
== END 2023-12-29 09:18 | disposition home or self-care (01) ==
LOC: PM 09:17
PROVIDERS: PCP Internal Medicine; Visit Provider Nurse Practitioner
DX: M25.562 Pain in left knee (principal); M16.12 Unilateral primary osteoarthritis, left hip; M25.551 Pain in right hip; M25.552 Pain in left hip; Z79.891 Long term (current) use of opiate analgesic; M47.816 Spondylosis without myelopathy or radiculopathy, lumbar region; M13.812 Other specified arthritis, left shoulder
CPT/HCPCS: G0463

== ENCOUNTER 2024-03-02 14:22 | Outpatient (OUT) | payer OTHER, SELFPAY ==
--- OUTSIDE RECORDS SUMMARY | 2024-03-02 14:26 | XMS_ITS ---
Patient Summarization (C-CDA 2.1 CCD) Created on: March 02, 2024 RIGO JEFFERSON : 1960 Sex: Male Author Organization Sample organization Care Team Providers Care Loin Trimmer Name Role Phone Chandan Cool Unavailable Unavailable Sid Ac Unavailable Unavailable Required, No Pcp Unavailable Unavailable Daniel Caballero Unavailable None, No PCP Unavailable [facility] Primary Care Unavailable WEST, DR RADHA Gaxiola Consulting Unavailable DUNCAN ., DR LLUVIA Sheldon Attending Unavailable DUNCAN ., DR LLUVIA Sheldon Admitting Unavailable DUNCAN ., DR LLUVIA Sheldon Consulting [facility] Primary Care Unavailable DUNCAN ., DR LLUVIA Sheldon Attending Unavailable DUNCAN ., DR LLUVIA Sheldon Consulting Unavailable DUNCAN ., DR LLUVIA Sheldon Admitting Unavailable [facility] Primary Care Unavailable DUNCAN ., DR LLUVIA Sheldon Attending Unavailable DUNCAN ., DR LLUVIA Sheldon Consulting Unavailable DUNCAN ., DR LLUVIA Sheldon Admitting Unavailable [facility] Primary Care Unavailable ANDERSEN .RAVINDER Consulting Unavailable DUNCAN ., DR LLUVIA Sheldon Admitting Unavailable DUNCAN ., DR LLUVIA Sheldon Attending [facility]available [facility] Primary Care Unavailable ANDERSEN ., RAVINDER Consulting Unavailable DUNCAN ., DR LLUVIA Sheldon Admitting Unavailable DUNCAN ., DR LLUVIA Sheldon Attending Unavailable [facility] Primary Care Unavailable LAKSHMIPATHY ., NARENDRANATH Attending Nadira vailable LAKSHMIPATHY ., NARENDRANATH Admitting Nadira vailable [facility], [facility] Primary Care Unavailable LAKSHMIPATHY ., NARENDRANATH Attending Nadira vailable LAKSHMIPATHY ., NARENDRANATH Consulting Nadira vailable LAKSHMIPATHY ., NARENDRANATH Admitting Nadira vailable [facility], [facility] Primary Care Unavailable LAKSHMIPATHY ., NARENDRANATH Consulting Nadira vailable LAKSHMIPATHY ., NARENDRANATH Admitting Nadira vailable LAKSHMIPATHY ., NARENDRANATH Attending Nadira vailable [facility], [facility] Primary Care Unavailable NATHALY .RAVINDER Consulting Unavailable CUCO ., DR LLUVIA Sheldon Attending Unavailable DUNCAN ., DR LLUVIA Sheldon Admitting Unavailable [facility], [facility] Primary Care Unavailable LAKSHMIPATHY ., NARENDEMERYATH Attending Nadira vailable RINA, DR DOMINGA William Consulting Unavailable LAKSHMIPATHY ., NARENDRANATH Admitting Nadira vailable LAKSHMIPATHY ., NARENDRANATH Consulting Nadira vailable ITZKOWITZ, JONATHAN H Attending Unavailable ITZKOWITZ, JONATHAN H Attending Unavailable [facility], Attending Unavailable [facility], COREAS Attending Unavailable [facility], Attending Unavailable [facility], Attending Unavailable Encounters Encounter Date Encounter Type Care Provider Facility Start: 01-31-2024 End: 01-31-2024 ambulatory COREAS [facility] Not Available Start: 12-29-2023 End: 12-29-2023 ambulatory COREAS [facility] Not Available Start: 11-23-2023 End: 11-23-2023 ambulatory COREAS FAWWAD [...] Facility:H1 Start: 06-01-2022 End: 06-02-2022 ambulatory COREAS Mina CENTENOD Facility:H1 Start: 05-31-2022 End: 06-01-2022 ambulatory COREAS H FAKrystenWAD Facility:H1 Start: 05-18-2022 End: 05-19-2022 ambulatory COREAS H FAWWAD Facility:H1 Start: 04-29-2022 End: 04-30-2022 ambulatory COREAS H FAWWAD Facility:H1 Start: 01-27-2022 End: 01-28-2022 ambulatory COREAS H FAWWAD Facility:H1 Start: 04-02-2021 Postop follow up vis it related to original px No PCP None [address] Work Phone: Start: 02-20-2021 Chart Update No PCP None MG-Surgery -[address] Work Phone: Start: 02-11-2021 End: 02-12-2021 Evaluation and management of inpatient Daniel Caballero [facility] [address] 55 Rm 5511 01 Start: 01-27-2021 Chart Update Daniel Caballero MD Work Phone: UQ-[address] Work Phone: Start: 04-03-2019 Patient encounter procedure Chandan Cool ZP-Ukswfrx-[address] Work Phone: Start: 01-12-2018 Patient encounter procedure Chandan Matsonmo IB-Sxzgste-[address] Work Phone: Start: 11-28-2017 Patient encounter procedure Chandan Matsonmo DN-Ncbifkd-[address] Work Phone: Start: 11-28-2017 Patient encounter procedure Chandan Matsonmo HY-T[address] Work Phone: Medications Current Medications Medication Drug Class(es) Dates [...] Refills: 0 DO Start : 25-Jan-2017 Active Payers Date Payer Category Payer Unknown [id number] 2018 Unknown 1960 Medicare [id number] 1960 Unknown [id number] 2.16.84 [id number] 1960 Unknown [id number] 2.16.84 0.1.986643.3.579.2.593 1960 Unknown [id number] 2.16.84 0.1.794259.3.579.2.593 1960 Unknown [id number] 2.16.84 0.1.856540.3.579.2.593 1960 Unknown [id number] 2.16.84 0.1.341365.3.579.2.593 1960 Unknown [id number] 2.16.84 0.1.001647.3.579.2.593 1960 Unknown [id number] 2.16.84 0.1.212505.3.579.2.593 1960 Unknown [id number] 2.16.84 0.1.915806.3.579.2.593 1960 Unknown [id number] 2.16.84 0.1.867258.3.579.2.593 1960 Unknown [id number] 2.16.84 0.1.864544.3.579.2.593 1960 Unknown [id number] 2.16.84 0.1.589592.3.579.2.1259 1960 Unknown [id number] 2.16.84 0.1.580733.3.579.2.1259 1960 Unknown [id number] 2.16.84 0.1.185340.3.579.2.1259 1960 Unknown [id number] 2.16.84 0.1.268415.3.579.2.1259 1960 Unknown [id number] 2.16.84 0.1.117255.3.579.2.1259 1960 Unknown [id number] 2.16.840 .1.210949.3.579.2.1259 Plan of Treatment Date Care Activity Detail Author Start: 02-11-2021 End: 02-12-2022 Ondansetron Injectable 4 mg IntraVenous Push Every 6 Hours PRN ; (ZOFRAN)DOSE = 4 mg IntraVenous Push Every 4 Hours, PRN Nausea & Vomiting Start: 11-Feb-2021 End: 11-Feb-2022 Ordered: 11-Feb-2021 Jane Yo Intent [facility] Problems Active Problems Problem Classification Problem Date [...] occurred!Residual codes; unclassified (14 sources) Disease Episodic Procedures Date Procedure Procedure Detail Performing Clinician Start: 03-30-2019 Xray Chest 2 View PA + Lateral Chandan Cool Cholecystectomy Chandan Cool History of Gallbl[place] er Surgery Chandan Cool History of Knee Surgery Left Chandan Cool History of Neck Surgery Marion Cool Tonsillectomy Chandan Cool Results Test Name Value Interpretation Reference Range [...] by: DOMINGA FLYNN Date: 2022-12-08 10:25 Normal [facility] MRI SHOULDER RT WO CONon [...] by: DOMINGA FLYNN Date: 2022-12-08 10:35 Normal [facility] XR CSPINE OBL FLEX_EXTon XR CSPINE [...] RADHA DIAZ Date: 2022-05-31 20:33 Normal [facility] Post Op (General Surgery)on 04-02-2021 Post [...] not he wants to follow-up with a 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 Provider Impressions He is [...] not he wants to follow-up with a 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 Chief Complaint An interactive [...] not he wants to follow-up with a 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 Active Problems COPD (chronic [...] MG Oral Tablet Results/Data Xray Chest 1 [id number] 04:27PMJim Faith Test NameResultFlagReference Xray Chest 1 View(Report) FINAL REPORT Interpreted by: МАРИНА MARCELO MD 02/12/21 16:52 Patient Name: RIGO JEFFERSON STUDY: CHEST 1 VIEW; 02/12/2021 4:27 pm INDICATION: chest tube removal. COMPARISON: Prior 11:07 a.m. radiograph. ACCESSION NUMBER(S): [id number] ORDERING CLINICIAN: JIM FAITH FINDINGS: Left basilar [...] Apr 02 2021 5:38PM EST (Author) Normal Touchworks Admission Risk Screen - Adul ton 02-12-2021 Admission Risk Screen - Adult Allergies: Allergies: No Known Allergies: Patient Verification: New W ID Band Applied in my Departmentno Type of ID Patient is WearingW wristband, but not applied here Patient Transferred from Other Facility ([facility], [facility],etc)no Patient Identity Verified Bypatient ID Band [...] AlertFor Ebola-like Symptoms: Isolate Patient and Notify Provider/Marketing Communications Specialist For Contact: Notify Provider/Marketing Communications Specialist Advance Directive: Advance Directive/DNRno (1) Advance Directive [...] Learning Preferencesverbal instruction Cultural Considerationsnone Developmental Considerationsnone Quaker Considerationsnone Learning Assessment (Other Learner): Other learner availableno Depression Screen: During the past month, have you often been bothered by feeling down, depressed or hopelessno (1) During the past month, have you often had little interest or pleasure in doing thingsno (1) Have you had any thoughts of harming anyone elseno (1) [place] Suicide: Risk Screen Not Applicable/Able to Answerable to be screened In the Past Month: Have you wished you were or could go to sleep and not wake upno(1) In the Past Month: Have you had any actual thoughts of killing yourself no(1) Lifetime: Have you ever done, started to do, or prepared to do anything to end your lifeno(1) [place] Suicide Risknegative Adult Nutrition Screen: Have you [...] Pain (nonverbal)verbalization (more content not included)... Normal [facility] BASIC METABOLIC PANELon 02-03-2020 Anion gap [Moles/Vol] 15 mmol/L Normal 10 - 20 [facility] Comment on above: Performed By: #### B MP #### [facility] [address] [place] [address] Calcium [Mass/Vol] 9.5 mg/dL Normal 8.6 - 10.6 [facility] [place] Comment on above: Performed By: #### B MP #### [facility] [address] [place] [address] Chloride [Moles/Vol] 102 mmol/L Normal 98 - 107 [facility] Comment on above: Performed By: #### B MP #### [facility] [address] [place] [address] Creatinine [Mass/Vol] 0.98 mg/dL Normal 0.50 - 1.30 [facility] Comment on above: Performed By: #### B MP #### [facility] [address] [place] [address] GFR- AM. >60 Normal >60 [facility] Comment on above: Result Comment: CALC ULATIONS OF ESTIMATED GFR ARE PERFORMED USING THE MDRD STUDY EQUATION FOR THE IDMS-TRACEABLE CREATININE METHODS. CLIN CHEM 2007;53:766-72 Performed By: #### B MP #### [facility] [address] [place] [address] GFR-NON AM. >60 Normal >60 [facility] Comment on above: Performed By: #### B MP #### [facility] [address] [place] [address] Glucose [Mass/Vol] 133 mg/dL High 74 - 99 [facility] [place] Comment on above: Performed By: #### B MP #### [facility] [address] [place] [address] HCO3 (Bld) [Moles/Vol] 24 mmol/L Normal 21 - 32 [facility] Comment on above: Performed By: #### B MP #### [facility] [address] [place] [address] Potassium [Moles/Vol] 4.3 mmol/L Normal 3.5 - 5.3 [facility] Comment on above: Performed By: #### B MP #### [facility] [address] [place] [address] Sodium [Moles/Vol] 137 mmol/L Normal 136 - 145 [facility] [place] Comment on above: Performed By: #### B MP #### [facility] [address] [place] [address] Urea nitrogen [Mass/Vol] 17 mg/dL Normal 6 - 23 [facility] Comment on above: Performed By: #### B MP #### [facility] [address] [place] [address] CBCon 02-12-2021 Erythrocyte distribution width (RBC) [Ratio] 12.1 % Normal 11.5 - 14.5 [facility] Comment on above: Performed By: #### C BC #### [facility] [address] [place] [address] Hematocrit (Bld) [Volume fraction] 45.8 % Normal 41.0 - 52.0 [facility] Comment on above: Performed By: #### C BC #### [facility] [address] [place] [address] Hemoglobin (Bld) [Mass/Vol] 15.0 g/dL Normal 13.5 - 17.5 [facility] Comment on above: Performed By: #### C BC #### [facility] [address] [place] [address] MCHC (RBC) [Mass/Vol] 32.8 g/dL Normal 32.0 - 36.0 [facility] Comment on above: Performed By: #### C BC #### [facility] [address] [place] [address] MCV (RBC) [Entitic vol] 94 fL Normal 80 - 100 [facility] Comment on above: Performed By: #### C BC #### [facility] [address] [place] [address] NUCLEATED RBC 0.0 /100 WBC Normal 0.0-0.0 [facility] Comment on above: Performed By: #### C BC #### [facility] [address] [place] [address] Platelets (Bld) [#/Vol] 228 10*3/uL Normal 150 - 450 [facility] Comment on above: Performed By: #### C BC #### [facility] [address] [place] [address] RBC 4.85 x10E12/L Normal 4.50 - 5.90 [facility] Comment on above: Performed By: #### C BC #### [facility] [address] [place] [address] WBC (Bld) [#/Vol] 12.8 10*3/uL High 4.4 - 11.3 [facility] Comment on above: Performed By: #### C BC #### [facility] [address] [place] [address] Clinical Event Note-POCon Clinical Event Note-POC Clinical [...] 00:41 by Nataliia Ferris ( (Resident)) Normal [facility] Daily Progress Note-Surgeryo n 02-12-2021 Daily Progress [...] yet. Objective Data: Objective Information: T PRBPSpO2 Value35.24108354/8695% Date/Time02/12 6:4902/12 6:4902/12 6:4902/12 6:4902/12 6:49 Range(35.4C - 36.4C ) (77 - 99 ) (17 - 18 ) (127 - 147 )/ (86 - 91 ) (95% - 96% ) Pain reported at 02/12 2:54: 6 = Moderate ---- Intake and Output ----- Mn/Dy/Year TimeIntakeOutputNet Feb 12, 2021 6:00 [id number] Feb 11, 2021 10:00 [id number] The Intake and Output Totals for the last 24 hours are: IntakeOutputNet [id number] Physical Exam by System: Constitutional: Well developed, [...] in the note. Electronic Signatures: Jim Faith (Resident)) (Signed 12-Feb-2021 10:38) Authored: Service, Subjective Data, Objective Data, Assessment and Plan, Note Completion Daniel Caballero) (Signed 13-Feb-2021 10:13) Authored: Note Completion Co-Signer: Service, Subjective Data, Objective Data, Assessment and Plan, Note Completion Last Updated: 13-Feb-2021 10:13 by Daniel Caballero) [facility] Discharge Planning Slsu7ko 0 02-12-2021 Discharge Planning Note2 Discharge Planning: Needs Prior to Discharge (ex. Home Care Orders, IV/O2 prescriptions) Follow up appointments Discharge Barriers (ex. Avoidable days, wait guardianship, pt refuse leave) None Planned Dispositionhome Discharge DestinationHome [facility] < [facility] [place] of Choice Explainedyes preference Anticipated Discharge [id number] Discharge Planning 02/12/2021 0135 Discharge Plan Patient transferred from [place] [address] from PACU for diaphragm plication. Pt is A&O times 4. at 3 liters oxygen. Pt denies any medical instructor use at home. Pt emergency photoresist contact printer Sahil Joe- son. Pt have valuable belongings [...] going needs when medically ready. Payer: Nabil Ramirez Mcasanjay Status: Inpatient Discharge disposition: Home Potential Barriers: none ADOD: 02/12. implementation project coordinator will continue to follow for discharge planning needs. Franny Gilliam RN, Transitional Property Inspector/TCC, pager [phone] Discharge note: 02/12/21 @ 1735: PT discharged home at this time. pts peripheral IV taken out prior to DC. pt given DC instructions. pt verbalized understanding. pt refused transport and walked downstairs with his son.---Erika stock RN Assessment: Discharge Planning Assessment [id number] Primary Contact Name and NumberAdam [phone](1) Stated Reason for Admissiondiaphragm plication(2) Arrived FromOR (2) Lives Withparent(s)(2) Living Arrangementshouse(2) Resource/Environmental Concernsnone(2) Anticipated Transition [place](2) Services Anticipated at Transitionnone(2) Discharge Documentation: Discharge/Transfer Date/Ysrk62-Ufi-3797 17:35 Discharge Modeambulatory Discharged Accompanied Byfamily member [...] Profile - Adult v2 12-Feb-2021 01:31 Normal [facility] Discharge [id number] 021 Discharge Profile2 Discharge Orders: Anticipated Discharge Date: Anticipated Discharge [id number] DNAR: DNAR Status: none Call Provider If [...] at 12-Feb-2021 14:39:47 Appointments: Follow-Up Appointment 01: Physician/Dept/MilenaYoirving PCP Reason for Referralhospital follow-up Call to Schedule in1 week Follow-Up Appointment 02: Physician/Dept/ServiceDr. Caballero - surgery Reason for Referralhospital follow-up / diaphragm pacer removal, hemidiaphragm plication Call to Schedule in2 weeks [id number] Hilario Crawford [address] Phone [phone] Other Clinician Instructions: Other Instructions: Other Clinician [...] Appointments, Other Clinician Instructions, Gold Form - Help Desk Manager Summary Last Updated: 12-Feb-2021 15:27 by Jim Faith ( (Resident)) Normal [facility] Laboratory - Chemistry and C hemistry - challengeon 02-12-2021 Anion gap [Moles/Vol] 15 mmol/L 10 - 20 SG-Yyhkixi-G th[address] [employer] [address] Work Phone: Calcium [Mass/Vol] 9.5 mg/dL 8.6 - 10.6 MG-Tino raysa-G [facility] [employer] [address] Work Phone: Chloride [Moles/Vol] 102 mmol/L 98 - 107 AI-Bwlbijx-L [address] Work Phone: CO2 [Moles/Vol] 24 mmol/L 21 - 32 MG-Surger y-G [address] Work Phone: Creatinine [Mass/Vol] 0.98 mg/dL See Below KK-Mmdgkbi-B [address] Work Phone: Comment on above: Reference Range: 0.5 0 - 1.30 Glucose [Mass/Vol] 133 mg/dL above high threshold 74 - 99 DI-Hmhgone-[address] Work Phone: [phone] Potassium [Moles/Vol] 4.3 mmol/L 3.5 - 5.3 AS-Qgymkhk-[facility] [address] Work Phone: [phone] Sodium [Moles/Vol] 137 mmol/L 136 - 145 MG[facility]Tino raysa[facility] Work Phone: [phone] Urea nitrogen [Mass/Vol] 17 mg/dL 6 - 23 LF-Azhuorm-P [facility] [address] Work Phone: [phone] Laboratory - Hematology and Cell countson 02-12-2021 Erythrocyte distribution width (RBC) [Ratio] 12.1 % See Below TM-Tneyvgg-C [facility] [address] Work Phone: [phone] Comment on above: Reference Range: 11. 5 - 14.5 Hematocrit (Bld) [Volume fraction] 45.8 % See Below RW-Snctdff-V [facility] [address] Work Phone: [phone] Comment on above: Reference Range: 41. 0 - 52.0 Hemoglobin (Bld) [Mass/Vol] 15.0 g/dL See Below FJ-Vhgkktf-D [facility] [address] Work Phone: [phone] Comment on above: Reference Range: 13. 5 - 17.5 MCHC (RBC) [Mass/Vol] 32.8 g/dL See Below FJ-Ozdwmpv-O [address] Work Phone: [phone] Comment on above: Reference Range: 32. 0 - 36.0 MCV (RBC) [Entitic vol] 94 fL 80 - 100 JI-Dxawtvv-W [address] Work Phone: [phone] Platelets (Bld) [#/Vol] 228 10*3/uL 150 - 450 QC-Gxfukqz-[address] Work Phone: [phone] RBC (Bld) [#/Vol] 4.85 {x10E12/L} See Below MG -Surgery-G [address] Work Phone: Comment on above: Reference Range: 4.5 0 - 5.90 WBC (Bld) [#/Vol] 12.8 10*3/uL above high threshold 4.4 - 11.3 HK-Mtyjelh-[address] Work Phone: No Panel Informationon 02-12 >60 >60 YP-Jktkgmi-[address] Work Phone: Comment on [...] tab(s) orally 2 times a day Normal [facility] Patient Profile - Adult v2on 02-12-2021 Patient Profile - Adult v2 Profile: Initial Info: How to be AddressedDel(1) Spoken Language PreferredEnglish (1) Stated Reason for Admissiondiaphragm plication Patient Belongingsremains with patient Patient Belongings Remaining with Patientcash/credit card; clothing Arrived FromOR Medications Brought to Hospitalno Are you currently using the Personal Electronic Health Record or [employer]no (1) Wants Family/Rep Notified of Admissionyes, primary contact Notify PCPnotify PCP Informed of Patient Visiting Rightsyes General Health: Blood Avoidance/Restrictionsnone (1) Previous Transfusion Reactionno(2) Weight in kg109.8 kilogram(s)(3) Weight in wel312 pound(s) Weight Methodactual (measured) (3) Scale Typestanding [...] From 1. Vital Signs 11-Feb-2021 12:02 Normal [facility] Radiologyon 02-12-2021 XR Chest Single view Normal OO-Wmdfqgz-A [address] Work Phone: XR Chest Single view Normal YE-Herzwup-Y [facility] [address] Work Phone: XR Chest Single view Normal EB-Fgavuht-K [facility] [address] Work Phone: TH CHEST 1 VIEWon 02-12-2021 TH CHEST 1 VIEW Patient Name: RIGO JEFFERSON STUDY: CHEST 1 VIEW; 02/12/2021 7:13 am INDICATION: POD 1 s/p diaphragm plication. COMPARISON: 02/11/2021. ACCESSION NUMBER(S): [id number] ORDERING CLINICIAN: JANE YO FINDINGS: Left basilar [...] Electronically signed by: МАРИНА MARCELO MD Normal [facility] [place] CHEST 1 VIEW Patient Name: RIGO JEFFERSON STUDY: CHEST 1 VIEW; 02/12/2021 11:58 am INDICATION: chest tube wet seal. COMPARISON: 7:02 a.m. radiograph. ACCESSION NUMBER(S): [id number] ORDERING CLINICIAN: JIM FAITH FINDINGS: Left basilar [...] Electronically signed by: МАРИНА MARCELO MD Normal [facility] [place] CHEST 1 VIEW Patient Name: RIGO JEFFERSON STUDY: CHEST 1 VIEW; 02/12/2021 4:27 pm INDICATION: chest tube removal. COMPARISON: Prior 11:07 a.m. radiograph. ACCESSION NUMBER(S): [id number] ORDERING CLINICIAN: JIM FAITH FINDINGS: Left basilar [...] pneumothorax. Electronically signed by: МАРИНА MARCELO MD [facility] No Panel Informationon 02-11 [place] [address] Work Phone: [facility] [place] [place] [address] Patient Name: RIGO JEFFERSON : 1960 Date of Service: 02/11/2021 Patient Location: [place] [address] Patient Type: I Surgeon: Daniel Caballero MD Report Type: Operative Reports PREOPERATIVE DIAGNOSIS: Chronic respiratory failure, left diaphragm dysfunction. POSTOPERATIVE DIAGNOSIS: Chronic respiratory failure, left diaphragm dysfunction. OPERATION/PROCEDURE: Laparoscopic left diaphragm plication with removal of previous diaphragm pacing wires. SURGEON: Daniel Caballero MD REEXAMINER(S): Jane Yo MD. There was no available resident. ANESTHESIA: LOCATION: [facility]. CLINICAL NOTE: This [...] TT: 02/12/2021 12:44 PM EST DICTATION NUMBER: [id number] BRIE JOB NUMBER: [id number] CC: PT STATES NONE PCP Electronic Signatures: Daniel Caballero) (Signed on 13-Feb-2021 10:15) Authored Unsigned, Draft (SYS GENERATED) (Entered on 12-Feb-2021 12:44) Entered Last Updated: 13-Feb-2021 10:15 by Daniel Caballero) [facility] Order Reconciliationon 02-11 Order Reconciliation Page 1 Admission Reconciliation Document Reconciliation Type: Admission from OR requested on behalf of Jane Yo (Physician) done by Jane Yo) Admission from OR - Reconciliation: 11-Feb-2021 18:31 by: Jane Yo) Home MedicationsEnteredLast Dose TakenReconciled with current Order Reconciliation Comment/ Additional Information Kristina 24 Hour Allergy oral tablet 1 tab(s) orally once a [id number]-Feb-2021 AM Reviewed and Held clarithromycin 250 mg oral tablet 250 milligram(s) orally once a day Clarithromycin Tablet (BIAXIN)DOSE = 250 mg Oral Every 24 Hoursclarithromycin 250 mg oral tablet continued as the inpatient order Clarithromycin diclofenac sodium 50 mg oral delayed release tablet 1 tab(s) orally 2 times a [id number]-2331 AM Reviewed and Held oxycodone-acetaminophen 5 mg-300 mg oral tablet 1 tab(s) orally 2 times a day [id number] AM Reviewed and Held Additional Current Orders [...] Run at: 100 mL/hr IntraVenous Clinician Notes: Carloat-operative order ONLY Lactated Ringers Infusion IV Bag [...] 15 minute(s)Clinician Notes: Carlota-operative order ONLY [facility] Patient Profile - Preop v2on 02-11-2021 Patient Profile - Preop v2 Profile: Initial Info: How to be AddressedDel(1) Spoken Language PreferredEnglish (1) Source of Informationpatient Are you currently using the Personal Electronic Health Record or [employer]no (1) Are you interested in learning more about [facility] for the management of your healthnot at this time Stated Reason for AdmissionL pulling of wires/pulling lung down Primary Contact Name and NumberAda [phone] Patient Belongingspatient educated regarding responsibility for personal items Medications Brought to Hospitalno General Health: Weight in kg109.8 kilogram(s) Weight in iuz426 pound(s) Weight Methodactual (measured) Scale Typestanding Height [...] Learning Preferencesverbal instruction Cultural Considerationsnone Developmental Considerationsnone Quaker Considerationsnone Other learner availableno Falls RiskPatient location auto qualifies him/her for HIGH RISK. Are there any cultural, spiritual, pentecostal practices/values/needs that are important for us to [...] Profile - Adult v2 12-Dec-2017 16:00 Normal [facility] Preop Checkliston 02-11-2021 Preop Checklist Preop Checklist: Preop Checklist: Arrival [id number] Arrival Time11:48 Procedure TypeL laparoscopic diaphragm plication Temperature C36.1 degrees C Temperature F96.9 degrees F Heart Rate70 beats per minute Respiratory Rate12 breath per minute Blood Pressure Pyezfjus196 mm/Hg Blood Pressure Ojzjwdgmk59 mm/Hg NPO [id number] 00:00 ID Band Onyes Allergy Bandno known allergies Consent Signedpending H&P Completeyes Anesthesia Assessment Completedpending EKG Performedsee results tab Chest X-Ray Performedsee results tab HCG Urine TestN/A Chlorhexadine Bath Givennot applicable Nasal Antiseptic Appliednot applicable Hair Washednot applicable Soap and water bath with hair shampoo the night before surgerynot applicable Hat placed on prior to transportnot applicable SCD's Appliedsent to [...] 11-Feb-2021 12:02 by Jany Ann (RN) Normal [facility] Radiologyon 02-11-2021 XR Chest Single view Please click on the link to view the study images Normal ZY-Wk[address]ws-[address] Work Phone: [facility] Surgical Pathology Depar tmenton 02-11-2021 [facility] Surgical Pathology Department Name RIGO JEFFERSON Pathologist: JACINTO MURRIETA MD Date of Procedure: 02/11/2021 Date Received: 02/12/2021 Date Reported 02/19/2021 Submitting Physician: DANIEL CABALLERO M.D. Location: [facility] Copy To/Referring/Attending: DANIEL CABALLERO M.D. [...] this case. Clinical History: Physician Contact Number: [id number] Fixative (A): Fresh Clinical Diagnosis History: disorders of diaphragm Specimens Submitted As: A: PACING WIRE Gross Description: Received in formalin, labeled with the patient's name and hospital number, are multiple wires with a piece of adipose tissue attached measuring 3.0 x 1.6 x 1.0 cm. A photograph is taken. The attached soft tissue is submitted entirely in one cassette. EXB exb/02/12/2021 [facility] Department of Pathology [address] [place] [address] Normal [facility] Comment on above: Performed By: #### [facility] ####[facility] Surgical Pathology [id number] [place] [address] CORONAVIRUS 2019, SCREEN ASY MPTOMATICon 02-10-2021 SARS-CoV-2 (COVID-19) RNA BECCA+probe Ql (Unsp spec) Not detected Normal Not Detected [facility] Comment on above: Result Comment: . This [...] patient management decisions. Fact sheet for providers: https://www.fda.gov/media/353324/download Fact sheet for patients: https://www.fda.gov/media/329436/download This test has received FDA Emergency Use Authorization (EUA) and has been verified by [facility] ([facility]). This test is only authorized for the duration of time that circumstances exist to justify the authorization of the emergency use of in vitro diagnostic tests for the detection of SARS-CoV-2 virus and/or diagnosis of COVID-19 infection under section 564(b)(1) of the Act, 21 U.S.C. 360bbb-3(b)(1), unless the authorization is terminated or revoked sooner. [facility] is certified under CLIA-88 as qualified to perform high complexity testing. Testing is performed in the [facility] laboratories located at [address] [place] [address]. Performed By: #### C OVSC #### [place] [address] Covid 19 Resultson SARS-CoV-2 (COVID-19) RNA BECCA+probe [...] You may also be contacted by the [facility] to see if any of your [...] or Naproxen (Aleve) can also be used. Lyub-ozb-dymthsb cough and cold medicines can be used according to the instructions on the package. Some rjbc-xae-jjqruvf medicines also contain acetaminophen. Make sure you [...] water are not available, use alcohol-based hand foundation assistant. Avoid touching your eyes, nose, and mouth [...] 24 alem (more content not included)... Normal [facility] CORONAVIRUS 2019, SCREEN ASY MPTOMATICon 02-09-2021 Lab Specimen Source Nasal, Nasopharyngeal Normal [facility] Comment on above: Performed By: #### C OVSC #### [address] [place] [address] Coronavirus 2019 RNA by PCR, Screening Asymptomticon 02-09-2021 Coronavirus 2019 RNA by PCR, Screening Asymptomtic Not detected Normal See Below XC-Pxqgmnr-E [facility] 107 Work Phone: Comment on above: SOURCE: [...] make patient management decisions.Fact sheet for providers: https://www.fda.gov/media/710005/downloadFact sheet for patients: https://www.fda.gov/media/146555/downloadThis test has received FDA Emergency Use Authorization (EUA) and has been verified by [facility] ([facility]). This test is only authorized for the duration of time that circumstances exist to justify the authorization of the emergency use of in vitro diagnostic tests for the detection of SARS-CoV-2 virus and/or diagnosis of COVID-19 infection under section 564(b)(1) of the Act, 21 U.S.C. 360bbb-3(b)(1), unless the authorization is terminated or revoked sooner. [facility] is certified under CLIA-88 as qualified to perform high complexity testing. Testing is performed in the [facility] laboratories located at [address] [place] [address]. BASIC METABOLIC PANELon 05-2 Anion gap [Moles/Vol] 13 mmol/L Normal 10 - 20 [facility] Comment on above: Performed By: #### B MP ####[id number] [place] [address] Calcium [Mass/Vol] 9.7 mg/dL Normal 8.6 - 10.6 [facility] [place] Comment on above: Performed By: #### B MP ####[id number] [place] [address] Chloride [Moles/Vol] 108 mmol/L High 98 - 107 [facility] Comment on above: Performed By: #### B MP ####[id number] [place] [address] Creatinine [Mass/Vol] 1.04 mg/dL Normal 0.50 - 1.30 [facility] Comment on above: Performed By: #### B MP ####[id number] [place] [address] GFR- AM. >60 Normal >60 [facility] Comment on above: Result Comment: CALC ULATIONS OF ESTIMATED GFR ARE PERFORMED USING THE MDRD STUDY EQUATION FOR THE IDMS-TRACEABLE CREATININE METHODS. CLIN CHEM 2007;53:766-72 Performed By: #### B MP ####[id number] [place] [address] GFR-NON AM. >60 Normal >60 [facility] Comment on above: Performed By: #### B MP ####[id number] [place] [address] Glucose [Mass/Vol] 91 mg/dL Normal 74 - 99 [facility] [place] Comment on above: Performed By: #### B MP ####[id number] [place] [address] HCO3 (Bld) [Moles/Vol] 29 mmol/L Normal 21 - 32 [facility] Comment on above: Performed By: #### B MP ####[id number] [place] [address] Potassium [Moles/Vol] 4.6 mmol/L Normal 3.5 - 5.3 [facility] Comment on above: Performed By: #### B MP ####[id number] [place] [address] Sodium [Moles/Vol] 145 mmol/L Normal 136 - 145 [facility] [place] Comment on above: Performed By: #### B MP ####[id number] [place] [address] Urea nitrogen [Mass/Vol] 13 mg/dL Normal 6 - 23 [facility] Comment on above: Performed By: #### B MP ####[id number] [place] [address] CBCon 01-27-2021 Erythrocyte distribution width (RBC) [Ratio] 12.2 % Normal 11.5 - 14.5 [facility] Comment on above: Performed By: #### C BC ####[id number] [place] [address] Hematocrit (Bld) [Volume fraction] 46.7 % Normal 41.0 - 52.0 [facility] Comment on above: Performed By: #### C BC ####[id number] [place] [address] Hemoglobin (Bld) [Mass/Vol] 15.1 g/dL Normal 13.5 - 17.5 [facility] Comment on above: Performed By: #### C BC ####[id number] [place] [address] MCHC (RBC) [Mass/Vol] 32.3 g/dL Normal 32.0 - 36.0 [facility] Comment on above: Performed By: #### C BC ####[id number] [place] [address] MCV (RBC) [Entitic vol] 96 fL Normal 80 - 100 [facility] Comment on above: Performed By: #### C BC ####[id number] [place] [address] NUCLEATED RBC 0.0 /100 WBC Normal 0.0-0.0 [facility] Comment on above: Performed By: #### C BC ####[id number] [place] [address] Platelets (Bld) [#/Vol] 209 10*3/uL Normal 150 - 450 [facility] Comment on above: Performed By: #### C BC ####[id number] [place] [address] RBC 4.85 x10E12/L Normal 4.50 - 5.90 [facility] Comment on above: Performed By: #### C BC ####[id number] [place] [address] WBC (Bld) [#/Vol] 7.2 10*3/uL Normal 4.4 - 11.3 [facility] [place] Comment on above: Performed By: #### C BC ####[id number] [place] [address], [place] Follow Up (General Surgery)o n 01-27-2021 Follow [...] EKG; Status:Hold For - Scheduling; Requested for:27Jan2021; Perform:[facility] [place] 1800; Due:27Apr2021;Ordered; For:Diaphragm dysfunction, [...] MICAELA = N; Record; Last Updated By: WaverlyChandan mcdonald; 01/27/2021 11:56:56 AM Continue: oxyCODONE-Acetaminophen 5-325 MG [...] 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 He was turning the device off 1-2 [...] MG Oral Tablet Vitals Vital Signs Recorded: 01Cfi4726 11:12AM Ehoflvgnqcc36.1 F Heart Rate77 Uauyqnvy948 Kfdinklbp38 Dptaqg832 lb BMI Alkrimsqqa65.64 kg/m2 BSA Calculated2.33 Tobacco Useb) No Physical [...] the r (more content not included)... Normal Zen Planner No Panel Informationon 01-27 [email or web address] 1:8080 /[email or web address]?R etrieveTestByDateTime?Sherita gqgWN=[id number]&Date=&Time=13%3a24%3a34%3a 00&TestType=ECG&Site=1&Out putType=PDF&Ext=PDF DR-Fjwoker-[place] [address] Work Phone: Normal sinus rhythm MG-Ramos rgery-[address] Work Phone: Normal YX-Xodidqk-U [address] Work Phone: [phone] [address]jxkbzz-H [address] Work Phone: [phone] 1 TZ-Pztosfn-I [address] Work Phone: 205 1 DB-Rmdvdcr-[address] Work Phone: 147 1 BA-Cbmowca-[address] Work Phone: 224 1 ZS-Aqhohxn-C [address] Work Phone: 11 1 XS-Llfdwxp-J [address] Work Phone: 69 1 LF-Ssjlvru-R [address] Work Phone: 26 1 XO-Heoblaa-M [address] Work Phone: 40 1 LU-Wokcsat-V [address] Work Phone: 421 1 LJ-Nisuxlj-Y [address] Work Phone: 390 1 GD-Wccltfn-X [address] Work Phone: 92 1 IH-Bkybgac-M [address] Work Phone: 154 1 BP-Edqoykk-K [address] Work Phone: 70 1 LY-Wscggbk-X [address] Work Phone: Radiologyon 01-27-2021 XR Chest 2 Views Normal MG-Surge ry-[address] Work Phone: TH CHEST 2 VIEW PA AND LATon 01-27-2021 TH CHEST 2 VIEW PA AND LAT Patient Name: RIGO JEFFERSON STUDY: TH CHEST 2 VIEW PA AND LAT; 01/27/2021 11:00 am INDICATION: chronic hypoventilation. COMPARISON: Chest radiograph 04/03/2019 ACCESSION NUMBER(S): [id number] ORDERING CLINICIAN: DANIEL CABALLERO FINDINGS: Inspiratory and [...] Electronically signed by: ANGI CAICEDO MD Normal [facility] Tobacco Screening.on 021 Tobacco use status CPHS b) No CF-Fjmnffp-[address] Work Phone: Tobacco Screening. b) No MG-Tino raysa-G thred[address] Work Phone: Otheron 04-03-2019 XR Chest 2 views Interpreted by: ISAK04/03/19 14:06MRN: [id number] Name: RIGO JEFFERSON STUDY:CHEST 2 VIEW PA [...] Electronically signed by: ISAK 04/03/19 14:06 Normal MI-Epbkdwi-X [address] Work Phone: Social History Date Type Detail Facility Former smoker Former smoker SO-Rtdpwcb-Wk [address] Work Phone: Tobacco smoking consumption unknown [facility] NEGATED: Highlighted row - - MG- Surgery-[address] Work Phone: Vital Signs Date Time Vital Sign Value Performing Clinician Facility 02-12-2021 14:10-0400 SaO2% (BldA) [Mass fraction] 95 % No Pcp Required [facility] 02-12-2021 14:00-0400 Body temperature 97.16 [degF] No Pcp Required [facility] 02-12-2021 14:00-0400 Diastolic blood pressure 83 mm[Hg] No Pcp Required [facility] 02-12-2021 14:00-0400 Heart rate 81 /min No Pcp Required [facility] 02-12-2021 14:00-0400 Respiratory rate 18 /min No Pcp Required [facility] 02-12-2021 14:00-0400 Systolic blood pressure 131 mm[Hg] No Pcp Required [facility] 02-12-2021 03:31-0400 Body height 182.8 cm No Pcp Required [facility] 02-12-2021 03:31-0400 Body weight 109.8 kg No Pcp Required [facility] 01-27-2021 11:12-0400 Body mass index (BMI) [Ratio] 33.64 kg/m2 Daniel Caballero MD Work Phone: TY-Nqyamzm-[address] Work Phone: 01-27-2021 11:12-0400 Body surface area Derived from formula 2.33 m2 Daniel Caballero MD Work Phone: NU-Uewoafv-[address] Work Phone: 01-27-2021 11:12-0400 Body temperature 96.1 [degF] Daniel Caballero MD Work Phone: LM-Rupqinx-[address] Work Phone: 01-27-2021 11:12-0400 Body weight 112.49 kg Daniel Caballero MD Work Phone: RQ-Nfjoqhq-[address] Work Phone: 01-27-2021 11:12-0400 Diastolic blood pressure 85 mm[Hg] Daniel Caballero MD Work Phone: OL-Nlnjaew-[address] Work Phone: 01-27-2021 11:12-0400 Heart rate 77 /min Daniel Caballero MD Work Phone: WK-Ssdlpfk-[address] Work Phone: 01-27-2021 11:12-0400 Systolic blood pressure 157 mm[Hg] Daniel Caballero MD Work Phone: KR-Cbxscul-[address] Work Phone: 04-03-2019 15:37-0400 BMI (Body Mass Index) 30.11 kg/m2 Chandan Travon MG-Surgery -[place] [address] Work Phone: 04-03-2019 15:37-0400 Body Temperature 97.9 [degF] Chandan Travon TM-Bduhqrq-[address] Work Phone: 04-03-2019 15:37-0400 Body weight 100.7 kg Chandan Travon SE-Azemaxw-[address]fm [address] Work Phone: 04-03-2019 15:37-0400 BP Diastolic 74 mm[Hg] Chandan Waverly XR-Ityyjnh-Clzqj ll [address]99 Work Phone: 04-03-2019 15:37-0400 BP Systolic 121 mm[Hg] Chandan Waverly BT-Vnnqdlw-Jjglb ll 2099 Work Phone: 04-03-2019 15:37-0400 BSA (Body Surface Area) 2.23 m2 Chandan Travon TU-Wvfvnat-Gxzoxji 2099 Work Phone: 04-03-2019 15:37-0400 Height 182.88 cm Chandan Waverly SG-Lnnhjlr-Mgpys ll 2099 Work Phone: 04-03-2019 15:37-0400 Pulse (Heart Rate) 58 /min Chnadan Cool QE-Yxahere-[address] Work Phone: Functional Status Date Assessment Result Facility Functional observable [facility] [place] NEGATED: Highlighted row Functional performance Functional status health issues are not documented Disease HR-Ssbfaxi-[address] Work Phone: Mental Status Date Assessment Result Facility 02-12-2021 Cognitive functi ons [id number] [facility] NEGATED: Highlighted row Cognitive function [Interpretation] Cognitive status health issues are not documented Disease OO-Kwkduan-[address] Work Phone: Clinical Notes 02-11-2021 [...] our patients to inform us about any gvpy-gen-mnhvsgu medications or herbal remedies/nutritional supplements/alternative remedies. 2. [...] options with their primary care provider. [facility] 11-25-2022 Note CONSULTATION CONSULTATION DATE: 11/25/2022 TO: Dr. Malik CHIEF COMPLAINT: Includes severe bilateral shoulder pain, [...] of his shoulders, bilaterally, without contrast. [facility] 09-03-2022 Note CONSULTATION CONSULTATION DATE: 09/03/2022 HISTORY OF PRESENT ILLNESS: This is a 62-year-old gentleman who returns to the clinic for a three month follow up for polyarthralgia and chronic lower back pain. Today, he is fairly uncomfortable, rates his pain 6/10. He has been physically active outside and feels his arthritis is flared up. His PCP is Dr. Malik and he has him on Motrin 800 [...] three months' time, unless otherwise indicated. [facility] 06-01-2022 Note CONSULTATION CONSULTATION DATE: 06/01/2022 [...] b.i.d. basis. The patient also uses the VicLoveLula heat rub to his cervical spine. The [...] in three months. CC: Shaikh Helena M.D. [facility] 05-18-2022 Note CONSULTATION CONSULTATION DATE: 05/18/2022 [...] to proceed. CC: Shaikh Helena M.D. [facility] 05-18-2022 Note CONSULTATION PROCEDURE DATE: 05/18/2022 [...] be followed up in the office. [facility] 04-29-2022 Note CONSULTATION CONSULTATION DATE: 04/29/2022 [...] for his injections with Dr. Duncan. [facility] 01-27-2022 Note CONSULTATION CONSULTATION DATE: 01/27/2022 [...] in three month's time, unless otherwise indicated. [facility] Signed and Approved by: RAVINDER ANDERSEN . 02/04/2022 16:12:00 [facility] 02-12-2021 Note Send Summary: Discharge Summary Providers: Provider RoleProvider Name ReferringDaniel Caballero PrimaryRequired, No Pcp AttendingOndersDaniel Note Recipients: Daniel Caballero MD Discharge: Summary: [...] at Discharge: .Home Vital Signs: T PRBPSpO2 Value36.43206202/8395% Date/Time02/12 12: 12: 12: 12: 12:10 Range(35.4C - 36.4C ) (77 - 99 ) (17 - 18 ) (127 - 147 )/ (83 - 91 ) (92% - 96% ) As of 12-Feb-2021 12:10:00, patient is on 2 L/min of oxygen Date: Weight/Scale Type:Height: 12-Feb-2021 01:01733.8 kg / oodwozcf104.8 cm Hospital Course: 60 yo male with [...] Call to Schedule in: 2 weeks Location: [address] [place] [address] Discharge Medications: Home Medication clarithromycin 250 mg [...] in the note. Electronic Signatures: Jim Faith (Resident)) (Signed 12-Feb-2021 17:35) Authored: Send Summary, Summary Content, Ongoing Care, Note Completion Daniel Caballero) (Signed 13-Feb-2021 10:13) Authored: Note Completion Co-Signer: Send Summary, Summary Content, Ongoing Care, Note Completion Last Updated: 13-Feb-2021 10:13 by Daniel Caballero) [facility] 02-11-2021 Note Post Operative Note: PreOp Diagnosis: diaphragm paralysis Post-Procedure Diagnosis: same Procedure: 1. laparoscopic L diaphragm plication 2. removal of bilateral diaphragm pacing wires 3. L pigtail chest tube placement Surgeon: Dr Daniel Caballero Resident/Fellow/Other Casting Cleaner: Dr Jane Yo Anesthesia: GETA Estimated Blood [...] Last Updated: 12-Feb-2021 07:53 by Daniel Caballero) [facility] 02-11-2021 Note History & Physical R eviewed: [...] Last Updated: 11-Feb-2021 15:50 by Daniel Caballero) [facility] Chief complaint Narrative - Reported An interactive audio and video telecommunication system which permits real time communications between the patient (at the originating site) and provider (at the distant site) was utilized to provide this telehealth service.Post op VB-[address] Work Phone: Evaluation note Constitutional: Well developed, awake/alert/oriented x3, no distress, alert and cooperativeSkin: warm and dryEyes: PERRL, EOMI, clear scleraENMT: MMMHead/Neck: NCATRespiratory/Thorax: good chest expansion, thorax symmetricCardiovascular: RRRGastrointestinal: Nondistended, soft, non-tender, no rebound tenderness or guardingMusculoskeletal: moves all extremitiesExtremities: well perfusedNeurological: grossly intactPsychological: Appropriate mood and behavior [facility] History of Present illness Narrative He is [...] not he wants to follow-up with a 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 MA-[address] Work Phone: Hospital Discharge instructions [...] in: 1 weekFollow Up Appointment 2:Physician/Dept/Service: Dr. Ada Alicea [facility] for Referral: hospital follow-up / diaphragm pacer removal, hemidiaphragm plicationLocation: [address], [place], [place] Number: [phone] Form - Other Clinicians:Other Clinician Instructions: Please take your medications as directed. Please follow-up with Dr. Caballero and with your PCP as directed. You may remove dressings and shower Tuesday. No heavy lifting >20lbs or strenours activity for 3 weeks. If your symptoms return or worsen, please seek medical attention. Thank you for allowing us to participate in your care. [facility] Family History No Family History Records Found [...] section and content) DATE CREATED AUTHOR 04/04/2021 [employer] DATE CREATED AUTHOR AUTHOR'S ORGANIZ ATION 04/08/2021 [facility] DATE CREATED AUTHOR AUTHOR'S ORGANIZ ATION 12/31/2022 [facility] pital DATE CREATED AUTHOR AUTHOR'S ORGANIZ ATION 01/31/2024 [facility] FOR RECORDS PERTAINING TO PATIENTS WHO [...] BE BASED ON THE PRIMARY CLINICAL RECORDS. [facility]. provides no warranty or guarantee of the accuracy or completeness of information in this document.
[2024-03-02 15:23] LABS: Anion Gap 12.7; BUN Creatinine Ratio 10.1; Calcium 9.7 mg/dL (8.5-10.1); Carbon Dioxide 30.1 mmol/L (21.0-32.0); Chloride 103 mmol/L (98-107); Estimated GFR (African America >60 (>=60); Estimated GFR (Non-African Ame 52 (>=60); Glucose 104 mg/dL (74-106); Potassium 3.8 mmol/L (3.5-5.1); Sodium 142 mmol/L (136-145)
== END 2024-03-02 14:23 | disposition home or self-care (01) ==
LOC: LAB 14:22
PROVIDERS: PCP Internal Medicine; Visit Provider Internal Medicine
DX: I10 Essential (primary) hypertension (principal)
CPT/HCPCS: 36415; 80048

== ENCOUNTER 2024-03-02 14:24 | Outpatient (OUT) | payer OTHER, SELFPAY ==
--- OUTSIDE RECORDS SUMMARY | 2024-03-02 14:28 | XMS_ITS | CCD ---
Author Organization [facility] Clin[facility]ianaCare Care Team Providers Care Small Products Ii Assembler Name Role Phone Chandan Cool Unavailable Unavailable Sid Ac Unavailable Unavailable Required, No Pcp Unavailable Unavailable Chuck Caballero Unavailable None, No PCP Unavailable Unavailable [facility], [facility] Primary Care Unavailable EMILY, DR RADHA Gaxiola Consulting Unavailable DUNCAN ., DR LLUVIA Sheldon Attending Unavailable DUNCAN ., DR LLUVIA Sheldon Admitting Unavailable DUNCAN ., DR LLUVIA Sheldon Consulting Unavailable [facility] Primary Care Unavailable DUNCAN ., DR LLUVIA Sheldon Attending Unavailable DUNCAN ., DR LLUVIA Sheldon Consulting Unavailable DUNCAN ., DR LLUVIA Sheldon Admitting Unavailable [facility], [facility] Primary Care Unavailable DUNCAN ., DR LLUVIA Sheldon Attending Unavailable DUNCAN ., DR LLUVIA Sheldon Consulting Unavailable DUNCAN ., DR LLUVIA Sheldon Admitting Unavailable [facility], [facility] Primary Care Unavailable ANDERSEN .RAVINDER Consulting Unavailable DUNCAN ., DR LLUVIA Sheldon Admitting Unavailable DUNCAN ., DR LLUVIA Sheldon Attending [facility] Primary Care Unavailable ANDERSEN .RAVINDER Consulting Unavailable DUNCAN ., DR LLUVIA Sheldon Admitting Unavailable DUNCAN ., DR LLUVIA Sheldon Attending [facility] Primary Care Unavailable LAKSHMIPATHY ., NARENDRANATH Attending Nadira vailable LAKSHMIPATHY ., NARENDRANATH Admitting Nadira vailable [facility], [facility] Primary Care Unavailable LAKSHMIPATHY ., NARENDRANATH Attending Nadira vailable LAKSHMIPATHY ., NARENDRANATH Consulting Nadira vailable LAKSHMIPATHY ., NARENDRANATH Admitting Nadira vailable [facility], [facility] Primary Care Unavailable LAKSHMIPATHY ., NARENDRANATH Consulting Nadira vailable LAKSHMIPATHY ., NARENDRANATH Admitting Nadira vailable LAKSHMIPATHY ., KARTHIK Attending Nadira vailable FAWDAMI, COREAS H Primary Care Unavailable NATHALY .RAVINDER Consulting Unavailable CUCO ., DR LLUVIA Sheldon Attending Unavailable DUNCAN ., DR LLUVIA Sheldon Admitting Unavailable [facility], COREAS H Primary Care Unavailable LAKSHMIPATHY ., KARTHIK Attending Nadira vailable RINA, DR DOMINGA William Consulting Unavailable LAKSHMIPATHY ., KARTHIK Admitting Nadira vailable LAKSHMIPATHY ., KARTHIK Consulting Nadira vailable ITZKOWITZ, JONATHAN H Attending Unavailable ITZKOLISHATZ, JONATHAN H Attending Unavailable FAWWAD, COREAS Attending Unavailable FA[facility], COREAS Attending Unavailable [facility], Attending Unavailable FAWRADHAD, Attending Unavailable Medications Current Medications Medication Drug Class(es) Dates Sig (Normalized) Sig (Original) acetaminophen 325 mg oral tablet (1 source) Start: 02-12-2021 End: 02-18-2021 take 2 tablets by mouth every six hours acetaminophen 325 mg oral tablet ; 2 tab(s) orally every 6 hours as needed for pain Quantity: 56 Refills: 0 Ordered: 12-Feb-2021 Jesusita Faith Start: 12-Feb-2021 End: 18-Feb-2021 Generic Substitution [...] 17 MCG/ACT Inhalation Aerosol Solution Refills: 0 Travon SALGUERONNixonCONSERVATOR ARTIFACTSChandan Start : 28-Nov-2017 Active lisinopril 20 mg [...] tendon indicates tendon degeneration and/or tendinitis. No lynnetet tear is seen. CUFF MUSCLES: Normal appearing [...] by: DOMINGA FLYNN Date: 2022-12-08 10:25 Normal [facility] MRI SHOULDER RT WO CONon [...] DOMINGA FLYNN Date: 2022-12-08 10:35 Normal [facility] XR CSPINE OBL FLEX_EXTon XR CSPINE [...] RADHA DIAZ Date: 2022-05-31 20:33 Normal [facility] Post Op (General Surgery)on 04-02-2021 Post [...] not he wants to follow-up with a interface designer in our system. Provider Impressions He is [...] not he wants to follow-up with a interface designer in our system. Chief Complaint An interactive [...] not he wants to follow-up with a interface designer in our system. Active Problems COPD (chronic [...] MG Oral Tablet Results/Data Xray Chest 1 [id number] 04:27PMJesusita Faith Test NameResultFlagReference Xray Chest 1 View(Report) FINAL REPORT Interpreted by: МАРИНА MARCELO MD 02/12/21 16:52 Patient Name: RIGO JEFFERSON STUDY: CHEST 1 VIEW; 02/12/2021 4:27 pm INDICATION: chest tube removal. COMPARISON: Prior 11:07 a.m. radiograph. ACCESSION NUMBER(S): [id number] ORDERING CLINICIAN: JESUSITA FAITH FINDINGS: Left basilar chest tube has [...] 02/12/21 16:52 Signatures Electronically signed by : Chuck Caballero MD; Apr 02 2021 5:38PM EST (Author) Normal [facility] Admission Risk Screen - Adul ton 02-12-2021 Admission Risk Screen - Adult Allergies: Allergies: No Known Allergies: Patient Verification: New W ID Band Applied in my Departmentno Type of ID Patient is WearingW wristband, but not applied here Patient Transferred from Other Facility ([facility], [facility])no Patient Identity Verified Bypatient ID Band [...] AlertFor Ebola-like Symptoms: Isolate Patient and Notify Provider/Staff Nuclear Medicine Technologist For Contact: Notify Provider/Staff Nuclear Medicine Technologist Advance Directive: Advance Directive/DNRno (1) Advance Directive [...] Learning Preferencesverbal instruction Cultural Considerationsnone Developmental Considerationsnone Taoist Considerationsnone Learning Assessment (Other Learner): Other learner availableno Depression Screen: During the past month, have you often been bothered by feeling down, depressed or hopelessno (1) During the past month, have you often had little interest or pleasure in doing thingsno (1) Have you had any thoughts of harming anyone elseno (1) [place] Suicide: Risk Screen Not Applicable/Able to Answerable to be screened In the Past Month: Have you wished you were or could go to sleep and not wake upno(1) In the Past Month: Have you had any actual thoughts of killing yourself no(1) Lifetime: Have you ever done, started to do, or prepared to do anything to end your lifeno(1) [place] Suicide Risknegative Adult Nutrition Screen: Have you [...] Pain (nonverbal)verbalization (more content not included)... Normal [facility] BASIC METABOLIC PANELon 06- 0-2020 Anion gap [Moles/Vol] 15 mmol/L Normal 10 - 20 [facility] Comment on above: Performed By: #### B MP #### [facility] [address] [place] [address] Calcium [Mass/Vol] 9.5 mg/dL Normal 8.6 - 10.6 [facility] Comment on above: Performed By: #### B MP #### [facility] [address] [place] [address] Chloride [Moles/Vol] 102 mmol/L Normal 98 - 107 [facility] Comment on above: Performed By: #### B MP #### [facility] [address] [place] [address] Creatinine [Mass/Vol] 0.98 mg/dL Normal 0.50 - 1.30 [facility] Comment on above: Performed By: #### B MP #### [facility] [address] [place] [address] GFR- AM. >60 Normal >60 [facility] Comment on above: Result Comment: CALC ULATIONS OF ESTIMATED GFR ARE PERFORMED USING THE MDRD STUDY EQUATION FOR THE IDMS-TRACEABLE CREATININE METHODS. CLIN CHEM 2007;53:766-72 Performed By: #### B MP #### [facility] [address] [place] [address] GFR-NON AM. >60 Normal >60 [facility] Comment on above: Performed By: #### B MP #### [facility] [address] [place] [address] Glucose [Mass/Vol] 133 mg/dL High 74 - 99 [facility] Comment on above: Performed By: #### B MP #### [facility] [address] [place] [address] HCO3 (Bld) [Moles/Vol] 24 mmol/L Normal 21 - 32 [facility] Comment on above: Performed By: #### B MP #### [facility] [address] [place] [address] Potassium [Moles/Vol] 4.3 mmol/L Normal 3.5 - 5.3 [facility] Comment on above: Performed By: #### B MP #### [facility] [address] [place] [address] Sodium [Moles/Vol] 137 mmol/L Normal 136 - 145 [facility] Comment on above: Performed By: #### B MP #### [facility] [address] [place] [address] Urea nitrogen [Mass/Vol] 17 mg/dL Normal 6 - 23 [facility] Comment on above: Performed By: #### B MP #### [facility] [address] [place] [address] CBCon 02-12-2021 Erythrocyte distribution width (RBC) [Ratio] 12.1 % Normal 11.5 - 14.5 [facility] Comment on above: Performed By: #### C BC #### [facility] [address] [place] [address] Hematocrit (Bld) [Volume fraction] 45.8 % Normal 41.0 - 52.0 [facility] Comment on above: Performed By: #### C BC #### [facility] [address] [place] [address] Hemoglobin (Bld) [Mass/Vol] 15.0 g/dL Normal 13.5 - 17.5 [facility] Comment on above: Performed By: #### C BC #### [facility] [address] [place] [address] MCHC (RBC) [Mass/Vol] 32.8 g/dL Normal 32.0 - 36.0 [facility] Comment on above: Performed By: #### C BC #### [facility] [address] [place] [address] MCV (RBC) [Entitic vol] 94 fL Normal 80 - 100 [facility] Comment on above: Performed By: #### C BC #### [facility] [address] [place] [address] NUCLEATED RBC 0.0 /100 WBC Normal 0.0-0.0 [facility] Comment on above: Performed By: #### C BC #### [facility] [address] [place] [address] Platelets (Bld) [#/Vol] 228 10*3/uL Normal 150 - 450 [facility] Comment on above: Performed By: #### C BC #### [facility] [address] [place] [address] RBC 4.85 x10E12/L Normal 4.50 - 5.90 [facility] Comment on above: Performed By: #### C BC #### [facility] [address] [place] [address] WBC (Bld) [#/Vol] 12.8 10*3/uL High 4.4 - 11.3 [facility] Comment on above: Performed By: #### C BC #### [facility] [address] [place] [address] Clinical Event Note-POCon Clinical Event Note-POC Clinical [...] 00:41 by Nataliia Ferris ( (Resident)) Normal [facility] Daily Progress Note-Surgeryo n 02-12-2021 Daily Progress [...] yet. Objective Data: Objective Information: T PRBPSpO2 Value35.16147368/8695% Date/Time02/12 6:4902/12 6:4902/12 6:4902/12 6:4902/12 6:49 Range(35.4C - 36.4C ) (77 - 99 ) (17 - 18 ) (127 - 147 )/ (86 - 91 ) (95% - 96% ) Pain reported at 02/12 2:54: 6 = Moderate ---- Intake and Output ----- Mn/Dy/Year TimeIntakeOutputNet Feb 12, 2021 6:00 [id number] Feb 11, 2021 10:00 [id number] The Intake and Output Totals for the last 24 hours are: IntakeOutsocorro [facility] hospitalNet [id number] Physical Exam by System: Constitutional: Well developed, [...] Plan: Code Status: Code StatusFull Code Assessment: JEFFERSONRigo MCALLISTER is a 60yo male POD#1 s/p diaphragmatic [...] Will discuss with senior resident and attending. Jesusita Faith DO PGY1 Signature/Cosignature/Atte station: Note Completion: I am a: Resident/Fellow Attending AttestationI reviewed the resident/fellows documentation and discussed the patient with the resident/fellow. I agree with the resident/fellows medical decision making as documented in the note. Electronic Signatures: Jesusita Faith ( (Resident)) (Signed 12-Feb-2021 10:38) Authored: Service, Subjective Data, Objective Data, Assessment and Plan, Note Completion Chuck Caballero) (Signed 13-Feb-2021 10:13) Authored: Note Completion Co-Signer: Service, Subjective Data, Objective Data, Assessment and Plan, Note Completion Last Updated: 13-Feb-2021 10:13 by Chuck Caballero) Normal [facility] Discharge Planning Ehip1mi 0 02-12-2021 Discharge Planning Note2 Discharge Planning: Needs Prior to Discharge (ex. Home Care Orders, IV/O2 prescriptions) Follow up appointments Discharge Barriers (ex. Avoidable days, wait guardianship, pt refuse leave) None Planned Dispositionhome Discharge DestinationHome [facility] Grahn of Choice Explainedyes preference Anticipated Discharge [id number] Discharge Planning 02/12/2021 0135 Discharge Plan Patient transferred from [place] [address] from PACU for diaphragm plication. Pt is A&O times 4. at 3 liters oxygen. Pt denies any medical registrar use at home. Pt emergency contact center team lead Sahil Joe- son. Pt have valuable belongings [...] needs when medically ready. Payer: Nabil Ramirez Gabriellesanjay Status: Inpatient Discharge disposition: Home Potential Barriers: none ADOD: 02/12. title coordinator will continue to follow for discharge planning needs. Franny Gilliam RN, Transitional Family Practitioner/TCC, pager [phone] Discharge note: 02/12/21 @ 1735: PT discharged home at this time. pts peripheral IV taken out prior to DC. pt given DC instructions. pt verbalized understanding. pt refused transport and walked downstairs with his son.---Erika stock sap security architect: Discharge Planning Assessment [id number] Primary Contact Name and NumberAdam [phone](1) Stated Reason for Admissiondiaphragm plication(2) Arrived FromOR (2) Lives Withparent(s)(2) Living Arrangementshouse(2) Resource/Environmental Concernsnone(2) Anticipated Transition [place](2) Services Anticipated at Transitionnone(2) Discharge Documentation: Discharge/Transfer Date/Ilob89-Ccp-1750 17:35 Discharge Modeambulatory Discharged Accompanied Byfamily member [...] Profile - Adult v2 12-Feb-2021 01:31 Normal [facility] Discharge [id number] 021 Discharge Profile2 Discharge Orders: Anticipated Discharge Date: Anticipated Discharge [id number] DNAR: DNAR Status: none Call Provider If [...] Medication Reconciliation and Orders Completedby Physician Reviewing ProviderJesusita Faith DO (Resident) at 12-Feb-2021 14:39:47 Appointments: Follow-Up Appointment 01: Physician/Dept/MilenaYoirving PCP Reason for Referralhospital follow-up Call to Schedule in1 week Follow-Up Appointment 02: Physician/Dept/ServiceDr. Caballero - surgery Reason for Referralhospital follow-up / diaphragm pacer removal, hemidiaphragm plication Call to Schedule in2 weeks [place] [address] Hilario Borden [address] Phone [phone] Other Clinician Instructions: Other Instructions: Other Clinician InstructionsPlease take your medications as directed. Please follow-up with Dr. Caballero and with your PCP as directed. You may remove dressings and shower Tuesday. No heavy lifting >20lbs or strenours activity for 3 weeks. If your symptoms return or worsen, please seek medical attention. Thank you for allowing us to participate in your care. Electronic Signatures: Jesusita Faith ( (Resident)) (Signed 12-Feb-2021 15:27) Authored: Discharge Orders, Provider FINAL REVIEW of Orders, Appointments, Other Clinician Instructions, Gold Form - Jewel Inspector Summary Last Updated: 12-Feb-2021 15:27 by Jesusita Faith ( (Resident)) Normal [facility] Laboratory - Chemistry and C hemistry - challengeon 02-12-2021 Anion gap [Moles/Vol] 15 mmol/L 10 - 20 ZQ-Kkhbqik-X [address] Work Phone: Calcium [Mass/Vol] 9.5 mg/dL 8.6 - 10.6 MG-Tino raysa-G [address] Work Phone: Chloride [Moles/Vol] 102 mmol/L 98 - 107 AE-Jbqluiw-[address] Work Phone: CO2 [Moles/Vol] 24 mmol/L 21 - 32 MG-Surger y-G [facility] [address] Work Phone: Creatinine [Mass/Vol] 0.98 mg/dL See Below XO-Vqtfeyl-I [facility] [address] Work Phone: Comment on above: Reference Range: 0.5 0 - 1.30 Glucose [Mass/Vol] 133 mg/dL above high threshold 74 - 99 PV-Cjirnwf-T [facility] [address] [facility] Work Phone: Potassium [Moles/Vol] 4.3 mmol/L 3.5 - 5.3 PR-Cnodokh-X [facility] [address] [facility] Work Phone: Sodium [Moles/Vol] 137 mmol/L 136 - 145 MG-Tino raysa-G [facility] [address] [facility] Work Phone: Urea nitrogen [Mass/Vol] 17 mg/dL 6 - 23 DW-Fvpbhyg-E [facility] [address] [facility] Work Phone: Laboratory - Hematology and Cell countson 02-12-2021 Erythrocyte distribution width (RBC) [Ratio] 12.1 % See Below TO-Irytbwt-J [facility] [address] [facility] Work Phone: Comment on above: Reference Range: 11. 5 - 14.5 Hematocrit (Bld) [Volume fraction] 45.8 % See Below BE-Fzczcrw-X [facility] [address] [facility] Work Phone: Comment on above: Reference Range: 41. 0 - 52.0 Hemoglobin (Bld) [Mass/Vol] 15.0 g/dL See Below YR-Agozeyk-I [facility] [address] [place] [address] Work Phone: Comment on above: Reference Range: 13. 5 - 17.5 MCHC (RBC) [Mass/Vol] 32.8 g/dL See Below XE-Ugqlrdu-H [facility] [place] [address] Work Phone: Comment on above: Reference Range: 32. 0 - 36.0 MCV (RBC) [Entitic vol] 94 fL 80 - 100 PH-Ohvgzpk-T [facility] [place] [address] Work Phone: Platelets (Bld) [#/Vol] 228 10*3/uL 150 - 450 RO-Lmydxot-P [address] Work Phone: RBC (Bld) [#/Vol] 4.85 {x10E12/L} See Below MG -Surgery-G [address] Work Phone: Comment on above: Reference Range: 4.5 0 - 5.90 WBC (Bld) [#/Vol] 12.8 10*3/uL above high threshold 4.4 - 11.3 SI-Jofpkma-[address] Work Phone: No Panel Informationon 02-12 >60 >60 VB-Cruxquq-T [address] Work Phone: Comment on above: CALCULATIONS OF LANRE MATED GFR ARE PERFORMED USING THE MDRD STUDY EQUATION FOR THE IDMS-TRACEABLE CREATININE METHODS. CLIN CHEM 2007;53:766-72 0.0 {/100_WBC} 0.0-0.0 MG-Surgery -G [facility] Work Phone: Order Reconciliationon 02-12 Order Reconciliation Page 1 Discharge Reconciliation Document Reconciliation Type: Discharge requested on behalf of Jesusita Faith (Resident) done by Jesusita Faith (DO (Resident)) Discharge - Reconciliation: 12-Feb-2021 14:44 by: Jesusita Faith (DO (Resident)) Home Medications EnteredHOME MEDICATIONS [...] tab(s) orally 2 times a day Normal [facility] Patient Profile - Adult v2on 02-12-2021 Patient Profile - Adult v2 Profile: Initial Info: How to be AddressedDel(1) Spoken Language PreferredEnglish (1) Stated Reason for Admissiondiaphragm plication Patient Belongingsremains with patient Patient Belongings Remaining with Patientcash/credit card; clothing Arrived FromOR Medications Brought to Hospitalno Are you currently using the Personal Electronic Health Record or [employer]no (1) Wants Family/Rep Notified of Admissionyes, primary contact Notify PCPnotify PCP Informed of Patient Visiting Rightsyes General Health: Blood Avoidance/Restrictionsnone (1) Previous Transfusion Reactionno(2) Weight in kg109.8 kilogram(s)(3) Weight in jxm934 pound(s) Weight Methodactual (measured) (3) Scale Typestanding (3) Height in cm182.8 centimeter(s) Height in feet6 feet(3) Height in inches0 inch(es)(3) Height Methodstated (3) BMI (kg/m2)32.858 square meter [facility] Based Care: How would you like to [...] From 1. Vital Signs 11-Feb-2021 12:02 Normal [facility] Radiologyon 02-12-2021 XR Chest Single view Normal UQ-Zbnqisw-[address] Work Phone: XR Chest Single view Normal IW-Bhdiccl-[address] Work Phone: XR Chest Single view Normal CA-Xfbatbg-E [address] Work Phone: TH CHEST 1 VIEWon 02-12-2021 TH CHEST 1 VIEW Patient Name: RIGO JEFFERSON STUDY: CHEST 1 VIEW; 02/12/2021 4:27 pm INDICATION: chest tube removal. COMPARISON: Prior 11:07 a.m. radiograph. ACCESSION NUMBER(S): [id number] ORDERING CLINICIAN: JESUSITA FAITH FINDINGS: Left basilar chest tube has been removed. CARDIOMEDIASTINAL SILHOUETTE: Cardiomediastinal silhouette is normal in size and configuration. LUNGS: Small pleural effusions with left more than right basilar consolidation. ABDOMEN: No remarkable upper abdominal findings. BONES: No acute osseous changes. IMPRESSION: 1. Small pleural effusions with left more than right basilar consolidation. 2. No pneumothorax. Electronically signed by: МАРИНА MARCELO MD Normal [facility] TH CHEST 1 VIEW Patient Name: RIGO JEFFERSON STUDY: CHEST 1 VIEW; 02/12/2021 11:58 am INDICATION: chest tube wet seal. COMPARISON: 7:02 a.m. radiograph. ACCESSION NUMBER(S): [id number] ORDERING CLINICIAN: JESUSITA FAITH FINDINGS: Left basilar pigtail chest tube [...] Electronically signed by: МАРИНА MARCELO MD Normal [facility] CHEST 1 VIEW Patient Name: RIGO JEFFERSON STUDY: CHEST 1 VIEW; 02/12/2021 7:13 am INDICATION: POD 1 s/p diaphragm plication. COMPARISON: 02/11/2021. ACCESSION NUMBER(S): [id number] ORDERING CLINICIAN: SAW YO FINDINGS: Left basilar pigtail chest tube [...] Electronically signed by: МАРИНА MARCELO MD Normal [facility] No Panel Informationon 02-11 [place] [address] Work Phone: Operative Reports - [facility] [place] [address] Patient Name: RIGO JEFFERSON : 1960 Date of Service: 02/11/2021 Patient Location: [place] [address] Patient Type: I Surgeon: Chuck Caballero MD Report Type: Operative Reports PREOPERATIVE DIAGNOSIS: Chronic respiratory failure, left diaphragm dysfunction. POSTOPERATIVE DIAGNOSIS: Chronic respiratory failure, left diaphragm dysfunction. OPERATION/PROCEDURE: Laparoscopic left diaphragm plication with removal of previous diaphragm pacing wires. SURGEON: Chuck Caballero MD SOLAR SITE ASSESSMENT SPECIALIST(S): Saw Yo MD. There was no available resident. ANESTHESIA: LOCATION: [facility]. CLINICAL NOTE: This is a patient with [...] Vicryl and skin incisions with 4-0 Vicryl. Chuck Caballero MD EST TT: 02/12/2021 12:44 PM EST DICTATION NUMBER: [id number] BRIE JOB NUMBER: [id number] CC: PT STATES NONE PCP Electronic Signatures: Chuck Caballero) (Signed on 13-Feb-2021 10:15) Authored Unsigned, Draft (SYS GENERATED) (Entered on 12-Feb-2021 12:44) Entered Last Updated: 13-Feb-2021 10:15 by Chuck Caballero) Normal [facility] Order Reconciliationon 02-11 Order Reconciliation Page 1 Admission Reconciliation Document Reconciliation Type: Admission from OR requested on behalf of Saw Yo (Physician) done by Saw Yo) Admission from OR - Reconciliation: 11-Feb-2021 18:31 by: Saw Yo) Home MedicationsEnteredLast Dose TakenReconciled with current Order Reconciliation Comment/ Additional Information Kristina 24 Hour Allergy oral tablet 1 tab(s) orally once a [id number]-[id number]-Feb-2021 AM Reviewed and Held clarithromycin 250 mg oral tablet 250 milligram(s) orally once a day [id number] Clarithromycin Tablet (BIAXIN)DOSE = 250 mg Oral Every 24 Hoursclarithromycin 250 mg oral tablet continued as the inpatient order Clarithromycin diclofenac sodium 50 mg oral delayed release tablet 1 tab(s) orally 2 times a oeo43-Kle-[id number]-Gfh-1856 AM Reviewed and Held oxycodone-acetaminophen 5 mg-300 mg oral tablet 1 tab(s) orally 2 times a day [id number] AM Reviewed and Held Additional Current Orders [...] 15 minute(s)Clinician Notes: Carlota-operative order ONLY Normal [facility] [facility] Patient Profile - Preop v2on 02-11-2021 Patient Profile - Preop v2 Profile: Initial Info: How to be AddressedDel(1) Spoken Language PreferredEnglish (1) Source of Informationpatient Are you currently using the Personal Electronic Health Record or FinaltaVoölksno (1) Are you interested in learning more about FinaltaVoölks for the management of your healthnot at this time Stated Reason for AdmissionL pulling of wires/pulling lung down Primary Contact Name and NumberAda [phone] Patient Belongingspatient educated regarding responsibility for personal items Medications Brought to Hospitalno General Health: Weight in kg109.8 kilogram(s) Weight in kwd853 pound(s) Weight Methodactual (measured) Scale Typestanding Height [...] Learning Preferencesverbal instruction Cultural Considerationsnone Developmental Considerationsnone Taoist Considerationsnone Other learner availableno Falls RiskPatient location auto qualifies him/her for HIGH RISK. Are there any cultural, spiritual, episcopal practices/values/needs that are important for us to [...] Profile - Adult v2 12-Dec-2017 16:00 Normal [facility] Preop Checkliston 02-11-2021 Preop Checklist Preop Checklist: Preop Checklist: Arrival [id number] Arrival Time11:48 Procedure TypeL laparoscopic diaphragm plication Temperature C36.1 degrees C Temperature F96.9 degrees F Heart Rate70 beats per minute Respiratory Rate12 breath per minute Blood Pressure Limexzhd930 mm/Hg Blood Pressure Cnerdiibx88 mm/Hg NPO [id number] 00:00 ID Band Onyes Allergy Bandno known [...] 11-Feb-2021 12:02 by Jany Ann (RN) Normal [facility] Radiologyon 02-11-2021 XR Chest Single view Please click on the link to view the study images Normal [place] [address] Work Phone: [facility] Surgical Pathology Depar tmenton 02-11-2021 [facility] Surgical Pathology Department Name RIGO JEFFERSON Pathologist: JACINTO MURRIETA MD Date of Procedure: 02/11/2021 Date Received: 02/12/2021 Date Reported 02/19/2021 Submitting Physician: CHUCK CABALLERO M.D. Location: [facility] Copy To/Referring/Attending: CHUCK CABALLERO M.D. Other External # FINAL DIAGNOSIS [...] this case. Clinical History: Physician Contact Number: [phone] Fixative (A): Fresh Clinical Diagnosis History: disorders [...] EXB exb/02/12/2021 [facility] Department of Pathology [id number] [place] [address] Normal [facility] Comment on above: Performed By: #### U HCS ####[facility] Surgical Pathology [address] [place] [address] CORONAVIRUS 2019, SCREEN ASY MPTOMATICon 02-10-2021 SARS-CoV-2 (COVID-19) RNA BECCA+probe Ql (Unsp spec) Not detected Normal Not Detected [facility] Comment on above: Result Comment: . This [...] patient management decisions. Fact sheet for providers: https://www.fda.gov/media/854634/download Fact sheet for patients: https://www.fda.gov/media/807081/download This test has received FDA Emergency Use Authorization (EUA) and has been verified by [facility] ([facility]). This test is only authorized for the duration of time that circumstances exist to justify the authorization of the emergency use of in vitro diagnostic tests for the detection of SARS-CoV-2 virus and/or diagnosis of COVID-19 infection under section 564(b)(1) of the Act, 21 U.S.C. 360bbb-3(b)(1), unless the authorization is terminated or revoked sooner. [facility] is certified under CLIA-88 as qualified to perform high complexity testing. Testing is performed in the [facility] laboratories located at [address] [place] [address]. Performed By: #### C OVSC #### [place] [address] Covid 19 Resultson 06-08-202 1 SARS-CoV-2 (COVID-19) RNA BECCA+probe Ql (Unsp spec) [...] contacted by the [facility] to see if any of your close [...] or Naproxen (Aleve) can also be used. Mjbo-iqt-pstvotb cough and cold medicines can be used according to the instructions on the package. Some gqdw-pbl-ktxtgpr medicines also contain acetaminophen. Make sure you [...] water are not available, use alcohol-based hand telephone plant power operator. Avoid touching your eyes, nose, and mouth [...] 24 alem (more content not included)... Normal [facility] CORONAVIRUS 2019, SCREEN ASY MPTOMATICon 02-09-2021 Lab Specimen Source Nasal, Nasopharyngeal Normal [facility] Comment on above: Performed By: #### C OVSC #### [facility] [address] [place] [address] Coronavirus 2019 RNA by PCR, Screening Asymptomticon 02-09-2021 Coronavirus 2019 RNA by PCR, Screening Asymptomtic Not detected Normal See Below JS-Wiwldlt-K [facility] 107 Work Phone: Comment on above: [...] make patient management decisions.Fact sheet for providers: https://www.fda.gov/media/236791/downloadFact sheet for patients: https://www.fda.gov/media/883131/downloadThis test has received FDA Emergency Use Authorization (EUA) and has been verified by [facility] ([facility]). This test is only authorized for the duration of time that circumstances exist to justify the authorization of the emergency use of in vitro diagnostic tests for the detection of SARS-CoV-2 virus and/or diagnosis of COVID-19 infection under section 564(b)(1) of the Act, 21 U.S.C. 360bbb-3(b)(1), unless the authorization is terminated or revoked sooner. [facility] is certified under CLIA-88 as qualified to perform high complexity testing. Testing is performed in the [facility] laboratories located at [address] [place] [address]. BASIC METABOLIC PANELon 05-2 Anion gap [Moles/Vol] 13 mmol/L Normal 10 - 20 [facility] Comment on above: Performed By: #### B MP ####[id number] [place] [address] Calcium [Mass/Vol] 9.7 mg/dL Normal 8.6 - 10.6 [facility] Comment on above: Performed By: #### B MP ####[id number] [place] [address] Chloride [Moles/Vol] 108 mmol/L High 98 - 107 [facility] Comment on above: Performed By: #### B MP ####[id number] [place] [address] Creatinine [Mass/Vol] 1.04 mg/dL Normal 0.50 - 1.30 [facility] Comment on above: Performed By: #### B MP ####[id number] [place] [address] GFR- AM. >60 Normal >60 [facility] Comment on above: Result Comment: CALC ULATIONS OF ESTIMATED GFR ARE PERFORMED USING THE MDRD STUDY EQUATION FOR THE IDMS-TRACEABLE CREATININE METHODS. CLIN CHEM 2007;53:766-72 Performed By: #### B MP ####[id number] [place] [address] GFR-NON AM. >60 Normal >60 [facility] Comment on above: Performed By: #### B MP ####[id number] [place] [address] Glucose [Mass/Vol] 91 mg/dL Normal 74 - 99 [facility] Comment on above: Performed By: #### B MP ####[id number] [place] [address] HCO3 (Bld) [Moles/Vol] 29 mmol/L Normal 21 - 32 [facility] Comment on above: Performed By: #### B MP ####[id number] [place] [address] Potassium [Moles/Vol] 4.6 mmol/L Normal 3.5 - 5.3 [facility] Comment on above: Performed By: #### B MP ####[id number] [place] [address] Sodium [Moles/Vol] 145 mmol/L Normal 136 - 145 [facility] Comment on above: Performed By: #### B MP ####[id number] [place] [address] Urea nitrogen [Mass/Vol] 13 mg/dL Normal 6 - 23 [facility] Comment on above: Performed By: #### B MP ####[id number] [place] [address] CBCon 01-27-2021 Erythrocyte distribution width (RBC) [Ratio] 12.2 % Normal 11.5 - 14.5 [facility] Comment on above: Performed By: #### C BC ####[id number] [place] [address] Hematocrit (Bld) [Volume fraction] 46.7 % Normal 41.0 - 52.0 [facility] Comment on above: Performed By: #### C BC ####[id number] [place] [address] Hemoglobin (Bld) [Mass/Vol] 15.1 g/dL Normal 13.5 - 17.5 [facility] Comment on above: Performed By: #### C BC ####[id number] [place] [address] MCHC (RBC) [Mass/Vol] 32.3 g/dL Normal 32.0 - 36.0 [facility] Comment on above: Performed By: #### C BC ####[id number] [place] [address] MCV (RBC) [Entitic vol] 96 fL Normal 80 - 100 [facility] Comment on above: Performed By: #### C BC ####[id number] [place] [address] NUCLEATED RBC 0.0 /100 WBC Normal 0.0-0.0 [facility] Comment on above: Performed By: #### C BC ####[id number] [place] [address] Platelets (Bld) [#/Vol] 209 10*3/uL Normal 150 - 450 [facility] Comment on above: Performed By: #### C BC ####[id number] [place] [address] RBC 4.85 x10E12/L Normal 4.50 - 5.90 [facility] Comment on above: Performed By: #### C BC ####[id number] [place] [address] WBC (Bld) [#/Vol] 7.2 10*3/uL Normal 4.4 - 11.3 [facility] Comment on above: Performed By: #### C BC ####[id number] [place] [address] Follow Up (General Surgery)o n 01-27-2021 Follow [...] EKG; Status:Hold For - Scheduling; Requested for:27Jan2021; Perform:[facility] [place] [address]; Due:27Apr2021;Ordered; For:Diaphragm [...] Updated By: Travon Chandan; 01/27/2021 11:56:56 AM Continue: oxyCODONE-Acetaminophen 5-325 MG [...] routine follow up. History of Present IllnessMr. Jefferson came in today accompanied by his son. 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 He was turning the device off 1-2 [...] MG Oral Tablet Vitals Vital Signs Recorded: [id number] 11:12AM Moaxhditisp41.1 F Heart Rate77 Yemcxhgf007 Hghgooput17 Obcxvc907 lb BMI Xupkbselte38.64 kg/m2 BSA Calculated2.33 Tobacco Useb) No Physical [...] the r (more content not included)... Normal [employer] No Panel Informationon 01-27 http://[employer] ExpressMUSEPRDAIO0 1:8080 /musescripts/museweb.dll?R etrieveTestByDateTime?Sherita lsrVZ=[id number]&Date=&Time=13%3a24%3a34%3a 00&TestType=ECG&Site=1&Out putType=PDF&Ext=PDF [place]-Ldxghqv-[address] Work Phone: Normal sinus rhythm MG-Ramos rgery-[address] Work Phone: Normal RR-Gvurtyb-[address] Work Phone: [phone] XJ-Bwfmkdu[address] Work Phone: [phone] 1 ZL-Wyqniwd-[address] Work Phone: 205 1 DF-Usmllke-[address] Work Phone: 147 1 FO-Dadmtcx-[address] Work Phone: 224 1 GH-Qcqxcnm-[address] Work Phone: 11 1 GO-Crcizgz-[address] Work Phone: 69 1 UK-Kxevrac-[address] Work Phone: 26 1 FX-Fkdlkbl-H [address] Work Phone: 40 1 VA-Mdudpgr-[address] Work Phone: [phone] 1 QW-Vxulyzd-[address] Work Phone: 390 1 BR-Tkfuzzz-Q [address] Work Phone: 92 1 RT-Ztvacju-[address] Work Phone: 154 1 LZ-Ubwkuuf-[address] Work Phone: 70 1 MI-Ciqwpxd-[address] Work Phone: Radiologyon 01-27-2021 XR Chest 2 Views Normal MG-Surge ry-[address] Work Phone: TH CHEST 2 VIEW PA AND LATon 01-27-2021 TH CHEST 2 VIEW PA AND LAT Patient Name: RIGO JEFFERSON STUDY: TH CHEST 2 VIEW PA AND LAT; 01/27/2021 11:00 am INDICATION: chronic hypoventilation. COMPARISON: Chest radiograph 04/03/2019 ACCESSION NUMBER(S): [id number] ORDERING CLINICIAN: CHUKC CABALLERO FINDINGS: Inspiratory and expiratory PA radiographs, [...] Electronically signed by: ANGI CAICEDO MD Normal [facility] Tobacco Screening.on 021 Tobacco use status CP b) No UU-Dslijlz[address] Work Phone: Tobacco Screening. b) No MG-Tino raysa-G [facility] [address] Work Phone: Otheron 04-03-2019 XR Chest 2 views Interpreted by: ISAK04/03/19 14:06MRN: [id number] Name: RIGO JEFFERSON STUDY:CHEST 2 VIEW PA AND LAT; 04/03/2019 1:26 pm INDICATION:chronic hypoventilation. COMPARISON:01/12/2018 ORDERING CLINICIAN:CHUCK CABALLERO FINDINGS:Cardiac silhouette size is within normal limits. There is elevation of left hemidiaphragm, unchanged left basilaratelectasis. Symmetric but decreased excursion of bilateralhemidiaphragm. There is no edema or pneumothorax No acute osseous abnormality. Postsurgical changes in the cervicalspine. IMPRESSION:1. Symmetric but decreased excursion of bilateral hemidiaphragm.2. Unchanged elevated left hemidiaphragm with left basilaratelectasis. Electronically signed by: ISAK 04/03/19 14:06 Normal ZL-Orfzlsb-[address] Work Phone: Vital Signs Date Time Vital Sign Value Performing Clinician Facility 02-12-2021 14:10-0400 SaO2% (BldA) [Mass fraction] 95 % No Pcp Required [facility] 02-12-2021 14:00-0400 Body temperature 97.16 [degF] No Pcp Required [facility] 02-12-2021 14:00-0400 Diastolic blood pressure 83 mm[Hg] No Pcp Required [facility] 02-12-2021 14:00-0400 Heart rate 81 /min No Pcp Required [facility] 02-12-2021 14:00-0400 Respiratory rate 18 /min No Pcp Required [facility] 02-12-2021 14:00-0400 Systolic blood pressure 131 mm[Hg] No Pcp Required [facility] 02-12-2021 03:31-0400 Body height 182.8 cm No Pcp Required [facility] 02-12-2021 03:31-0400 Body weight 109.8 kg No Pcp Required [facility] 01-27-2021 11:12-0400 Body mass index (BMI) [Ratio] 33.64 kg/m2 Chuck Caballero MD Work Phone: EL-[address] Work Phone: 01-27-2021 11:12-0400 Body surface area Derived from formula 2.33 m2 Chuck Caballero MD Work Phone: MX-Ypiilhf-[address] Work Phone: 01-27-2021 11:12-0400 Body temperature 96.1 [degF] Chuck Caballero MD Work Phone: TF-[address]bl[address] Work Phone: 01-27-2021 11:12-0400 Body weight 112.49 kg Chuck Caballero MD Work Phone: LI-[address]ufj[address] Work Phone: 01-27-2021 11:12-0400 Diastolic blood pressure 85 mm[Hg] Chuck Caballero MD Work Phone: FR-Wmetpcy-[address] Work Phone: 01-27-2021 11:12-0400 Heart rate 77 /min Chuck Caballero MD Work Phone: TI-Kzrpvrj-[address] Work Phone: 01-27-2021 11:12-0400 Systolic blood pressure 157 mm[Hg] Chuck Caballero MD Work Phone: GG-Ikybdfj-[address] Work Phone: 04-03-2019 15:37-0400 BMI (Body Mass Index) 30.11 kg/m2 Chandan Travon MG-Surgery -[place] [address] Work Phone: 04-03-2019 15:37-0400 Body Temperature 97.9 [degF] Chandan Travon UI-Xvmoodn-[address] Work Phone: 04-03-2019 15:37-0400 Body weight 100.7 kg Chandan [place] XZ-Wjbokof-Iaf[address] Work Phone: 04-03-2019 15:37-0400 BP Diastolic 74 mm[Hg] Chandan [place] VH-Ottkwqm-[address]99 Work Phone: 04-03-2019 15:37-0400 BP Systolic 121 mm[Hg] Chandan [place] UY-Fuybmnb-Ugyku [address] 2099 Work Phone: 04-03-2019 15:37-0400 BSA (Body Surface Area) 2.23 m2 Chandan [place] GP-Veziqpf-Jjvawgy 2099 Work Phone: 04-03-2019 15:37-0400 Height 182.88 cm Chandan Travon GI-Qikplrq-[address] Work Phone: 04-03-2019 15:37-0400 Pulse (Heart Rate) 58 /min Chandan [place] VB-Tfytwpp-[address] Work Phone: Encounters Encounter Date [...] related to original px No PCP None BR-Zuial[address] Work Phone: Start: 02-20-2021 Chart Update No PCP None MG-Surgery -[address] Work Phone: Start: 02-11-2021 End: 02-12-2021 Evaluation and management of inpatient Chuck Caballero [facility] [address] [facility] Rm 5511 01 Start: 01-27-2021 Chart Update Chuck Caballero MD Work Phone: BN-Fxsbavy-[address] Work Phone: Start: 04-03-2019 Patient encounter procedure Chandan Cool BL-Tldjsaj-[address] 2100 Work Phone: Start: 01-12-2018 Patient encounter procedure Chandan [place] ZJ-Bevmhog-[address] Work Phone: Start: 11-28-2017 Patient encounter procedure Chandan [place] HV-Lvahfft-[address] Work Phone: Start: 11-28-2017 Patient encounter procedure Chandan Matsonmo UB-Falvpmv-[address] Work Phone: Procedures Date Procedure [...] Vomiting Start: 11-Feb-2021 End: 11-Feb-2022 Ordered: 11-Feb-2021 Saw Yo Intent [facility] Payers Date Payer Category Payer Unknown [id number] 2018 Unknown 1960 Medicare [id number] 1960 Unknown [id number] 2.16.84 0.1.419763.3.579.2.593 1959 Unknown [id number] 2.16.84 0.1.416205.3.579.2.593 1959 Unknown [id number] 2.16.84 0.1.456297.3.579.2.593 1959 Unknown [id number] 2.16.84 0.1.586436.3.579.2.593 1959 Unknown [id number] 2.16.84 0.1.293381.3.579.2.593 1959 Unknown [id number] 2.16.84 0.1.758451.3.579.2.593 1959 Unknown [id number] 2.16.84 0.1.684113.3.579.2.593 1959 Unknown [id number] 2.16.84 0.1.810304.3.579.2.593 1959 Unknown [id number] 2.16.84 0.1.858770.3.579.2.593 1959 Unknown [id number] 2.16.84 0.1.384090.3.579.2.593 1959 Unknown [id number] 2.16.84 0.1.835405.3.579.2.1259 1959 Unknown [id number] 2.16.84 0.1.149625.3.579.2.1259 1959 Unknown [id number] 2.16.84 0.1.674607.3.579.2.1259 1959 Unknown [id number] 2.16.84 0.1.754188.3.579.2.1259 1959 Unknown [id number] 2.16.84 0.1.683716.3.579.2.1259 1959 Unknown [id number] 2.16.840 .1.794504.3.579.2.1259 Social History Date Type Detail Facility Former smoker Former smoker XN-Aijiryq[address] Work Phone: Tobacco smoking consumption unknown [facility] NEGATED: Highlighted row - - MG- Surgery-Chase Villator[address] 107 Work Phone: Functional Status Date Assessment Result Facility Functional observable [facility] NEGATED: Highlighted row Functional performance Functional status health issues are not documented Disease PO-Rwqqauz[address] Work Phone: Mental Status Date Assessment Result Facility 02-12-2021 Cognitive functi ons [id number]:24 [facility] NEGATED: Highlighted row Cognitive function [Interpretation] Cognitive status health issues are not documented Disease WH-Giz[address]wg[address] Work Phone: Clinical Notes 02-11-2021 [...] our patients to inform us about any styb-ljf-zxnpcda medications or herbal remedies/nutritional supplements/alternative remedies. 2. [...] options with their primary care provider. [facility] 11-25-2022 Note CONSULTATION CONSULTATION DATE: 11/25/2022 [...] of his shoulders, bilaterally, without contrast. [facility] 09-03-2022 Note CONSULTATION CONSULTATION DATE: 09/03/2022 [...] three months' time, unless otherwise indicated. [facility] 06-01-2022 Note CONSULTATION CONSULTATION DATE: 06/01/2022 [...] b.i.d. basis. The patient also uses the VicEarDish heat rub to his cervical spine. The [...] three months. CC: Shaikh Helena M.D. [facility] 05-18-2022 Note CONSULTATION CONSULTATION DATE: 05/18/2022 [...] to proceed. CC: Shaikh Helena M.D. [facility] 05-18-2022 Note CONSULTATION PROCEDURE DATE: 05/18/2022 [...] be followed up in the office. [facility] 04-29-2022 Note CONSULTATION CONSULTATION DATE: 04/29/2022 [...] for his injections with Dr. Duncan. [facility] 01-27-2022 Note CONSULTATION CONSULTATION DATE: 01/27/2022 [...] in three month's time, unless otherwise indicated. [facility] Signed and Approved by: RAVINDER ANDERSEN . 02/04/2022 16:12:00 [facility] 02-12-2021 Note Send Summary: Discharge Summary Providers: Provider RoleProvider Name ReferringOndersChuck PrimaryRequired, No Pcp AttendingOndersChuck Note Recipients: Chuck Caballero MD Discharge: Summary: Admission Date: .11-Feb-2021 10:51:00 Discharge Date: 12-Feb-2021 Attending Physician at Discharge: Chuck Caballero Admission Reason: diaphragm pacer removal, hemidiaphragm plication Final Discharge Diagnoses: Hemidiaphragm paralysis Procedures: Date: 11-Feb-2021 18:16:00 Procedure Name: 1. laparoscopic L diaphragm plication 2. removal of bilateral diaphragm pacing wires 3. L pigtail chest tube placement Condition at Discharge: Satisfactory Disposition at Discharge: .Home Vital Signs: T PRBPSpO2 Value36.89030846/8395% Date/Time02/12 12: 12: 12: 12: 12:10 Range(35.4C - 36.4C ) (77 - 99 ) (17 - 18 ) (127 - 147 )/ (83 - 91 ) (92% - 96% ) As of 12-Feb-2021 12:10:00, patient is on 2 L/min of oxygen Date: Weight/Scale Type:Height: 12-Feb-2021 01:15519.8 kg / rgqzlege940.8 cm Hospital Course: 60 yo male with [...] Call to Schedule in: 2 weeks Location: [address] [place] [address] Discharge Medications: Home Medication clarithromycin 250 mg [...] as documented in the note. Electronic Signatures: Jesusita Faith (Resident)) (Signed 12-Feb-2021 17:35) Authored: Send Summary, Summary Content, Ongoing Care, Note Completion Chuck Caballero) (Signed 13-Feb-2021 10:13) Authored: Note Completion Co-Signer: Send Summary, Summary Content, Ongoing Care, Note Completion Last Updated: 13-Feb-2021 10:13 by Chuck Caballero) [facility] 02-11-2021 Note Post Operative Note: PreOp Diagnosis: diaphragm paralysis Post-Procedure Diagnosis: same Procedure: 1. laparoscopic L diaphragm plication 2. removal of bilateral diaphragm pacing wires 3. L pigtail chest tube placement Surgeon: Dr Chuck Caballero Resident/Fellow/Other Warehouse Material Handler: Dr Saw Yo Anesthesia: GETA Estimated Blood Loss (mL): 10 Specimen: yes Findings: thin L diaphragm plicated, L pigtail chest tube in good position on intraop CXR Signature/Cosignature/Attestation: Note Completion: I am a:Resident/Fellow Attending AttestationI was present for the entire procedure Electronic Signatures: Saw Yo) (Signed 11-Feb-2021 18:18) Authored: Post Operative Note, Note Completion Chuck Caballero) (Signed 12-Feb-2021 07:53) Authored: Note Completion Co-Signer: Post Operative Note, Note Completion Last Updated: 12-Feb-2021 07:53 by Chuck Caballero) [facility] 02-11-2021 Note History & Physical R eviewed: [...] of care, and discharge plan. Electronic Signatures: Chuck Caballero) (Signed 09-Fabian-2021 15:50) Authored: History & Physical Reviewed, ERAS, Consent, Note Completion Last Updated: 11-Feb-2021 15:50 by Chuck Caballero) [facility] Chief complaint Narrative - Reported An interactive audio and video telecommunication system which permits real time communications between the patient (at the originating site) and provider (at the distant site) was utilized to provide this telehealth service.Post op [address] Work Phone: Evaluation note Constitutional: Well developed, awake/alert/oriented x3, no distress, alert and cooperativeSkin: warm and dryEyes: PERRL, EOMI, clear scleraENMT: MMMHead/Neck: NCATRespiratory/Thorax: good chest expansion, thorax symmetricCardiovascular: RRRGastrointestinal: Nondistended, soft, non-tender, no rebound tenderness or guardingMusculoskeletal: moves all extremitiesExtremities: well perfusedNeurological: grossly intactPsychological: Appropriate mood and behavior [facility] History of Present illness Narrative He is [...] not he wants to follow-up with a interface designer in our system. [address]X-[address] Work Phone: Hospital Discharge instructions [...] weekFollow Up Appointment 2:Physician/Dept/Service: Dr. Caballero - [facility] for Referral: hospital follow-up / diaphragm pacer removal, hemidiaphragm plicationLocation: [address], [place], [place]: [phone] Form - Other Clinicians:Other Clinician Instructions: Please take your medications as directed. Please follow-up with Dr. Caballero and with your PCP as directed. You may remove dressings and shower Tuesday. No heavy lifting >20lbs or strenours activity for 3 weeks. If your symptoms return or worsen, please seek medical attention. Thank you for allowing us to participate in your care. [facility] Family History No Family History Records Found [...] DATE CREATED AUTHOR AUTHOR'S ORGANIZ ATION 04/08/2021 [facility] DATE CREATED AUTHOR AUTHOR'S ORGANIZ ATION 12/31/2022 [facility] DATE CREATED AUTHOR AUTHOR'S ORGANIZ ATION 01/31/2024 [facility] FOR RECORDS PERTAINING TO PATIENTS WHO [...] BE BASED ON THE PRIMARY CLINICAL RECORDS. [facility] [employer] [facility]. provides no warranty or guarantee of the accuracy or completeness of information in this document.
[2024-03-02 15:39] LABS: Prostate Specific Antigen Dx 1.62 ng/mL (<=4.00)
[2024-03-03 04:07] LABS: Testosterone 537 ng/dL (264-916)
== END 2024-03-02 14:25 | disposition home or self-care (01) ==
LOC: LAB 14:24
PROVIDERS: PCP Internal Medicine; Visit Provider Internal Medicine
DX: E23.0 Hypopituitarism (principal); I10 Essential (primary) hypertension; R68.82 Decreased libido; Z68.30 Body mass index [BMI] 30.0-30.9, adult
CPT/HCPCS: 36415; 80048; 84153; 84403

== ENCOUNTER 2024-03-28 09:18 | Outpatient (OUT) | payer OTHER, SELFPAY ==
--- OUTSIDE RECORDS SUMMARY | 2024-03-28 09:26 | XMS_ITS | CCD ---
Author Organization [facility] Providers Care Labor Relations Worker Name Role Phone Chandan Cool Unavailable Unavailable Sid Ac Unavailable Unavailable Required, No Pcp Unavailable Unavailable Chuck Caballero Unavailable None, No PCP Unavailable Unavailable [facility], [facility] Primary Care Unavailable EMILY, DR RADHA Gaxiola Consulting Unavailable DUNCAN ., DR LLUVIA Sheldon Attending Unavailable DUNCAN ., DR LLUVIA Sheldon Admitting Unavailable DUNCAN ., DR LLUVIA Sheldon Consulting [facility] Primary Care Unavailable DUNCAN ., DR LLUVIA Sheldon Attending Unavailable DUNCAN ., DR LLUVIA Sheldon Consulting Unavailable DUNCAN ., DR LLUVIA Sheldon Admitting [facility] Primary Care Unavailable DUNCAN ., DR LLUVIA Sheldon Attending Unavailable DUNCAN ., DR LLUVIA Sheldon Consulting Unavailable DUNCAN ., DR LLUVIA Sheldon Admitting [facility]available [facility] Primary Care Unavailable ANDERSEN .RAVINDER Consulting Unavailable DUNCAN ., DR LLUVIA Sheldon Admitting Unavailable DUNCAN ., DR LLUVIA Sheldon Attending [facility] Primary Care Unavailable ANDERSEN .RAVINDER Consulting Unavailable DUNCAN ., DR LLUVIA Sheldon Admitting Unavailable DUNCAN ., DR LLUVIA Sheldon Attending Unavailable [facility], [facility] Primary Care Unavailable LAKSHMIPATHY ., NARENDRANATH Attending Nadira vailable LAKSHMIPATHY ., NARENDRANATH Admitting Nadira vailable [facility], [facility] Primary Care Unavailable LAKSHMIPATHY ., NARENDRANATH Attending Nadira vailable LAKSHMIPATHY ., NARENDRANATH Consulting Nadira vailable LAKSHMIPATHY ., NARENDRANATH Admitting Nadira vailable [facility], [facility] Primary Care Unavailable LAKSHMIPATHY ., NARENDRANATH [...] MCG/ACT Inhalation Aerosol Solution Refills: 0 Travon SALGUERONNixonSCREEN MACHINE OPERATORChandan Start : 28-Nov-2017 Active lisinopril 20 mg [...] by: DOMINGA FLYNN Date: 2022-12-08 10:25 Normal [facility] MRI SHOULDER RT WO CONon MRI [...] DOMINGA FLYNN Date: 2022-12-08 10:35 Normal [facility] XR CSPINE OBL FLEX_EXTon XR CSPINE [...] RADHA DIAZ Date: 2022-05-31 20:33 Normal [facility] Post Op (General Surgery)on 04-02-2021 Post [...] not he wants to follow-up with a interpreter translator in our system. Provider Impressions He is [...] not he wants to follow-up with a interpreter translator in our system. Chief Complaint An interactive [...] not he wants to follow-up with a interpreter translator in our system. Active Problems COPD (chronic [...] MG Oral Tablet Results/Data Xray Chest 1 [id number] 04:27PMJesusita Faith Test NameResultFlagReference Xray Chest 1 View(Report) FINAL REPORT Interpreted by: МАРИНА MARCELO MD 02/12/21 16:52 Patient Name: RIGO JEFFERSON STUDY: CHEST 1 VIEW; 02/12/2021 4:27 pm INDICATION: chest tube removal. COMPARISON: Prior 11:07 a.m. radiograph. ACCESSION NUMBER(S): [id number] ORDERING CLINICIAN: JESUSITA FAITH FINDINGS: Left basilar [...] Apr 02 2021 5:38PM EST (Author) Normal [employer] Admission Risk Screen - Adul ton 02-12-2021 Admission Risk Screen - Adult Allergies: Allergies: No Known Allergies: Patient Verification: New W ID Band Applied in my Departmentno Type of ID Patient is WearingW wristband, but not applied here Patient Transferred from Other Facility ([facility], [facility],etc)no Patient Identity Verified Bypatient ID [...] AlertFor Ebola-like Symptoms: Isolate Patient and Notify Provider/Store Person For Contact: Notify Provider/Store Person Advance Directive: Advance Directive/DNRno (1) Advance Directive [...] Learning Preferencesverbal instruction Cultural Considerationsnone Developmental Considerationsnone Anabaptist Considerationsnone Learning Assessment (Other Learner): Other learner availableno Depression Screen: During the past month, have you often been bothered by feeling down, depressed or hopelessno (1) During the past month, have you often had little interest or pleasure in doing thingsno (1) Have you had any thoughts of harming anyone elseno (1) Worth Suicide: Risk Screen Not Applicable/Able to Answerable to be screened In the Past Month: Have you wished you were or could go to sleep and not wake upno(1) In the Past Month: Have you had any actual thoughts of killing yourself no(1) Lifetime: Have you ever done, started to do, or prepared to do anything to end your lifeno(1) Worth Suicide Risknegative Adult Nutrition Screen: Have you [...] Pain (nonverbal)verbalization (more content not included)... Normal [facility] BASIC METABOLIC PANELon 06- 0-2020 Anion gap [Moles/Vol] 15 mmol/L Normal 10 - 20 [facility] Comment on above: Performed By: #### B MP #### [facility] [address] [place] [address] Calcium [Mass/Vol] 9.5 mg/dL Normal 8.6 - 10.6 [facility] Comment on above: Performed By: #### B MP #### [facility] [address] [place] [address] Chloride [Moles/Vol] 102 mmol/L Normal 98 - 107 [facility] Comment on above: Performed By: #### B MP #### [facility] [address] [place] [address] Creatinine [Mass/Vol] 0.98 mg/dL Normal 0.50 - 1.30 [facility] Comment on above: Performed By: #### B MP #### [facility] [address] [place] [address] GFR- AM. >60 Normal >60 [facility] Comment on above: Result Comment: CALC ULATIONS OF ESTIMATED GFR ARE PERFORMED USING THE MDRD STUDY EQUATION FOR THE IDMS-TRACEABLE CREATININE METHODS. CLIN CHEM 2007;53:766-72 Performed By: #### B MP #### [facility] [address] [place] [address] GFR-NON AM. >60 Normal >60 [facility] [place] Comment on above: Performed By: #### B MP #### [facility] [address] [place] [address] Glucose [Mass/Vol] 133 mg/dL High 74 - 99 [facility] Comment on above: Performed By: #### B MP #### [facility] [address] [place] [address] HCO3 (Bld) [Moles/Vol] 24 mmol/L Normal 21 - 32 [facility] Comment on above: Performed By: #### B MP #### [facility] [address] [place] [address] Potassium [Moles/Vol] 4.3 mmol/L Normal 3.5 - 5.3 [facility] Comment on above: Performed By: #### B MP #### [facility] [address] [place] [address] Sodium [Moles/Vol] 137 mmol/L Normal 136 - 145 [facility] Comment on above: Performed By: #### B MP #### [facility] [address] [place] [address] Urea nitrogen [Mass/Vol] 17 mg/dL Normal 6 - 23 [facility] Comment on above: Performed By: #### B MP #### [facility] [address] [place] [address] CBCon 02-12-2021 Erythrocyte distribution width (RBC) [Ratio] 12.1 % Normal 11.5 - 14.5 [facility] Comment on above: Performed By: #### C BC #### [facility] [address] [place] [address] Hematocrit (Bld) [Volume fraction] 45.8 % Normal 41.0 - 52.0 [facility] Comment on above: Performed By: #### C BC #### [facility] [address] [place] [address] Hemoglobin (Bld) [Mass/Vol] 15.0 g/dL Normal 13.5 - 17.5 [facility] Comment on above: Performed By: #### C BC #### [facility] [address] [place] [address] MCHC (RBC) [Mass/Vol] 32.8 g/dL Normal 32.0 - 36.0 [facility] Comment on above: Performed By: #### C BC #### [facility] [address] [place] [address] MCV (RBC) [Entitic vol] 94 fL Normal 80 - 100 [facility] Comment on above: Performed By: #### C BC #### [facility] [address] [place] [address] NUCLEATED RBC 0.0 /100 WBC Normal 0.0-0.0 [facility] Comment on above: Performed By: #### C BC #### [facility] [address] [place] [address] Platelets (Bld) [#/Vol] 228 10*3/uL Normal 150 - 450 [facility] Comment on above: Performed By: #### C BC #### [facility] [address] [place] [address] RBC 4.85 x10E12/L Normal 4.50 - 5.90 [facility] Comment on above: Performed By: #### C BC #### [facility] [address] [place] [address] WBC (Bld) [#/Vol] 12.8 10*3/uL High 4.4 - 11.3 [facility] [place] Comment on above: Performed By: #### C BC #### [facility] [address] [place] [address] Clinical Event Note-POCon Clinical Event Note-POC Clinical [...] 00:41 by Nataliia Ferris ( (Resident)) Normal [facility] Daily Progress Note-Surgeryo n 02-12-2021 Daily [...] yet. Objective Data: Objective Information: T PRBPSpO2 Value35.55590505/8695% Date/Time02/12 6:4902/12 6:4902/12 6:4902/12 6:4902/12 6:49 Range(35.4C - 36.4C ) (77 - 99 ) (17 - 18 ) (127 - 147 )/ (86 - 91 ) (95% - 96% ) Pain reported at 02/12 2:54: 6 = Moderate ---- Intake and Output ----- Mn/Dy/Year TimeIntakeOutputNet Feb 12, 2021 6:00 [id number] Feb 11, 2021 10:00 [id number] The Intake and Output Totals for the last 24 hours are: Int[facility]Out[facility] centerNet [id number] Physical Exam by System: Constitutional: Well developed, [...] Updated: 13-Feb-2021 10:13 by Chuck Caballero) Normal [facility] Discharge Planning Msfz1gl 0 02-12-2021 Discharge Planning Note2 Discharge Planning: Needs Prior to Discharge (ex. Home Care Orders, IV/O2 prescriptions) Follow up appointments Discharge Barriers (ex. Avoidable days, wait guardianship, pt refuse leave) None Planned Dispositionhome Discharge DestinationHome [facility] [place] of Choice Explainedyes preference Anticipated Discharge [id number] Discharge Planning 02/12/2021 0135 Discharge Plan Patient transferred from [place] [address] from PACU for diaphragm plication. Pt is A&O times 4. at 3 liters oxygen. Pt denies any hospitalist medical director use at home. Pt emergency set up person Sahil Joe- son. Pt have valuable belongings [...] disposition: Home Potential Barriers: none ADOD: 02/12. financial coordinator will continue to follow for discharge planning needs. Franny Gilliam RN, Transitional Maintenance Mechanic Telephone/TCC, pager [phone] Discharge note: 02/12/21 @ 1735: PT discharged home at this time. pts peripheral IV taken out prior to DC. pt given DC instructions. pt verbalized understanding. pt refused transport and walked downstairs with his son.---Erika stock news librarian: Discharge Planning Assessment [id number] Primary Contact Name and NumberAdam [phone](1) Stated Reason for Admissiondiaphragm plication(2) Arrived FromOR (2) Lives Withparent(s)(2) Living Arrangementshouse(2) Resource/Environmental Concernsnone(2) Anticipated Transition [place](2) Services Anticipated at Transitionnone(2) Discharge Documentation: Discharge/Transfer Date/[id number]-Sbb-9376 17:35 Discharge Modeambulatory Discharged Accompanied Byfamily member [...] Profile - Adult v2 12-Feb-2021 01:31 Normal [facility] Discharge [id number] 021 Discharge Profile2 Discharge Orders: Anticipated Discharge Date: Anticipated Discharge [id number] DNAR: DNAR Status: none Call Provider If [...] hemidiaphragm plication Call to Schedule in2 weeks [place] [address] Hilario Bodren [address] Phone [phone] Other Clinician Instructions: Other Instructions: Other Clinician [...] Appointments, Other Clinician Instructions, Gold Form - Manager Diversity Summary Last Updated: 12-Feb-2021 15:27 by Jesusita Faith ( (Resident)) Normal [facility] Laboratory - Chemistry and C hemistry - challengeon 02-12-2021 Anion gap [Moles/Vol] 15 mmol/L 10 - 20 IG-Dyolxnr-V [address] Work Phone: Calcium [Mass/Vol] 9.5 mg/dL 8.6 - 10.6 MG-Tino raysa-G [address] Work Phone: Chloride [Moles/Vol] 102 mmol/L 98 - 107 ZP-Keynzlw-E [address] Work Phone: CO2 [Moles/Vol] 24 mmol/L 21 - 32 MG-Surger y-[facility] [address] Work Phone: Creatinine [Mass/Vol] 0.98 mg/dL See Below AJ-Skglxoz-S [facility] [address] Work Phone: Comment on above: Reference Range: 0.5 0 - 1.30 Glucose [Mass/Vol] 133 mg/dL above high threshold 74 - 99 JQ-Lvatvul-S [facility] Work Phone: Potassium [Moles/Vol] 4.3 mmol/L 3.5 - 5.3 AK-Ogewawe-J [facility] Work Phone: Sodium [Moles/Vol] 137 mmol/L 136 - 145 MG-Tino raysa-G [facility] Work Phone: Urea nitrogen [Mass/Vol] 17 mg/dL 6 - 23 SY-Jkkmvsd-I [facility] Work Phone: Laboratory - Hematology and Cell countson 02-12-2021 Erythrocyte distribution width (RBC) [Ratio] 12.1 % See Below VW-Yskqtay-V [facility] Work Phone: Comment on above: Reference Range: 11. 5 - 14.5 Hematocrit (Bld) [Volume fraction] 45.8 % See Below RY-Znozsoo-V [facility] Work Phone: Comment on above: Reference Range: 41. 0 - 52.0 Hemoglobin (Bld) [Mass/Vol] 15.0 g/dL See Below VW-Tnggzzq-U [facility] [place] [address] Work Phone: Comment on above: Reference Range: 13. 5 - 17.5 MCHC (RBC) [Mass/Vol] 32.8 g/dL See Below WD-Kkmzooa-U [facility] [place] [address] Work Phone: Comment on above: Reference Range: 32. 0 - 36.0 MCV (RBC) [Entitic vol] 94 fL 80 - 100 RG-Rgqlldd-F [facility] [place] [address] Work Phone: Platelets (Bld) [#/Vol] 228 10*3/uL 150 - 450 AT-Zecqxgg-F [address] Work Phone: RBC (Bld) [#/Vol] 4.85 {x10E12/L} See Below MG -Surgery-G [address] Work Phone: Comment on above: Reference Range: 4.5 0 - 5.90 WBC (Bld) [#/Vol] 12.8 10*3/uL above high threshold 4.4 - 11.3 BI-Cuiktdb-P [address] Work Phone: No Panel Informationon 02-12 >60 >60 QW-Llicbnu-F [address] Work Phone: Comment on above: CALCULATIONS OF LANRE MATED GFR ARE PERFORMED USING THE MDRD STUDY EQUATION FOR THE IDMS-TRACEABLE CREATININE METHODS. CLIN CHEM 2007;53:766-72 0.0 {/100_WBC} 0.0-0.0 MG-Surgery -G [facility] Work Phone: Order Reconciliationon 02-12 Order Reconciliation [...] tab(s) orally 2 times a day Normal [facility] Patient Profile - Adult v2on 02-12-2021 Patient Profile - Adult v2 Profile: Initial Info: How to be AddressedDel(1) Spoken Language PreferredEnglish (1) Stated Reason for Admissiondiaphragm plication Patient Belongingsremains with patient Patient Belongings Remaining with Patientcash/credit card; clothing Arrived FromOR Medications Brought to Hospitalno Are you currently using the Personal Electronic Health Record or Typerings.comno (1) Wants Family/Rep Notified of Admissionyes, primary contact Notify PCPnotify PCP Informed of Patient Visiting Rightsyes General Health: Blood Avoidance/Restrictionsnone (1) Previous Transfusion Reactionno(2) Weight in kg109.8 kilogram(s)(3) Weight in veo366 pound(s) Weight Methodactual (measured) (3) Scale Typestanding (3) Height in cm182.8 centimeter(s) Height in feet6 feet(3) Height in inches0 inch(es)(3) Height Methodstated (3) BMI (kg/m2)32.858 square meter [facility] Based Care: How would you like to [...] From 1. Vital Signs 11-Feb-2021 12:02 Normal [facility] Radiologyon 02-12-2021 XR Chest Single view Normal NT-Npyygwq-H [address] Work Phone: XR Chest Single view Normal RD-Dfcbtnf-S [address] Work Phone: XR Chest Single view Normal OX-Hpjnspp-R [address] Work Phone: TH CHEST 1 VIEWon 02-12-2021 TH CHEST 1 VIEW Patient Name: RIGO JEFFERSON STUDY: CHEST 1 VIEW; 02/12/2021 4:27 pm INDICATION: chest tube removal. COMPARISON: Prior 11:07 a.m. radiograph. ACCESSION NUMBER(S): [id number] ORDERING CLINICIAN: JESUSITA FAITH FINDINGS: Left basilar [...] Electronically signed by: МАРИНА MARCELO MD Normal [facility] TH CHEST 1 VIEW Patient Name: RIGO JEFFERSON STUDY: CHEST 1 VIEW; 02/12/2021 11:58 am INDICATION: chest tube wet seal. COMPARISON: 7:02 a.m. radiograph. ACCESSION NUMBER(S): [id number] ORDERING CLINICIAN: JESUSITA FAITH FINDINGS: Left basilar [...] Electronically signed by: МАРИНА MARCELO MD Normal [facility] CHEST 1 VIEW Patient Name: RIGO JEFFERSON STUDY: CHEST 1 VIEW; 02/12/2021 7:13 am INDICATION: POD 1 s/p diaphragm plication. COMPARISON: 02/11/2021. ACCESSION NUMBER(S): [id number] ORDERING CLINICIAN: SAW YO FINDINGS: Left basilar [...] Electronically signed by: МАРИНА MARCELO MD Normal [facility] No Panel Informationon 02-11 [place] [address] Work Phone: [facility] [place] [address] Patient Name: RIGO JEFFERSON : 1960 Date of Service: 02/11/2021 Patient Location: [place] [address] Patient Type: I Surgeon: Chuck Caballero MD Report Type: Operative Reports PREOPERATIVE DIAGNOSIS: Chronic respiratory failure, left diaphragm dysfunction. POSTOPERATIVE DIAGNOSIS: Chronic respiratory failure, left diaphragm dysfunction. OPERATION/PROCEDURE: Laparoscopic left diaphragm plication with removal of previous diaphragm pacing wires. SURGEON: Chuck Caballero MD SHALLOT PACKER(S): Saw Yo MD. There was no available resident. ANESTHESIA: LOCATION: [facility]. CLINICAL NOTE: This is a [...] TT: 02/12/2021 12:44 PM EST DICTATION NUMBER: [id number] BRIE JOB NUMBER: [id number] CC: PT STATES NONE PCP Electronic Signatures: Chuck Caballero) (Signed on 13-Feb-2021 10:15) Authored Unsigned, Draft (SYS GENERATED) (Entered on 12-Feb-2021 12:44) Entered Last Updated: 13-Feb-2021 10:15 by Chuck Caballero) Normal [facility] Order Reconciliationon 02-11 Order Reconciliation Page 1 Admission Reconciliation Document Reconciliation Type: Admission from OR requested on behalf of Saw Yo (Physician) done by Saw Yo) Admission from OR - Reconciliation: 11-Feb-2021 18:31 by: Saw Yo) Home MedicationsEnteredLast Dose TakenReconciled with current Order Reconciliation Comment/ Additional Information Kristina 24 Hour Allergy oral tablet 1 tab(s) orally once a [id number]-Feb-2021 AM Reviewed and Held clarithromycin 250 mg oral tablet 250 milligram(s) orally once a day [id number] Clarithromycin Tablet (BIAXIN)DOSE = 250 mg Oral Every 24 Hoursclarithromycin 250 mg oral tablet continued as the inpatient order Clarithromycin diclofenac sodium 50 mg oral delayed release tablet 1 tab(s) orally 2 times a [id number] AM Reviewed and Held oxycodone-acetaminophen 5 mg-300 mg oral tablet 1 tab(s) orally 2 times a day [id number] AM Reviewed and Held Additional Current Orders [...] 15 minute(s)Clinician Notes: Carlota-operative order ONLY Normal [facility] Patient Profile - Preop v2on 02-11-2021 Patient Profile - Preop v2 Profile: Initial Info: How to be AddressedDel(1) Spoken Language PreferredEnglish (1) Source of Informationpatient Are you currently using the Personal Electronic Health Record or in2niteFanDuelno (1) Are you interested in learning more about in2niteFanDuel for the management of your healthnot at this time Stated Reason for AdmissionL pulling of wires/pulling lung down Primary Contact Name and NumberAda [phone] Patient Belongingspatient educated regarding responsibility for personal items Medications Brought to Hospitalno General Health: Weight in kg109.8 kilogram(s) Weight in tyo891 pound(s) Weight Methodactual (measured) Scale Typestanding Height [...] Learning Preferencesverbal instruction Cultural Considerationsnone Developmental Considerationsnone Anabaptist Considerationsnone Other learner availableno [place] RiskPatient location auto qualifies him/her for HIGH RISK. Are there any cultural, spiritual, confucianism practices/values/needs that are important for us to [...] Profile - Adult v2 12-Dec-2017 16:00 Normal [facility] Preop Checkliston 02-11-2021 Preop Checklist Preop Checklist: Preop Checklist: Arrival [id number] Arrival Time11:48 Procedure TypeL laparoscopic diaphragm plication Temperature C36.1 degrees C Temperature F96.9 degrees F Heart Rate70 beats per minute Respiratory Rate12 breath per minute Blood Pressure Yjmnzxoo362 mm/Hg Blood Pressure Whaxlfhfw15 mm/Hg NPO Euvabz94-Gmf-0388 00:00 ID Band Onyes Allergy Bandno known [...] 11-Feb-2021 12:02 by Jany Ann (RN) Normal [facility] Radiologyon 02-11-2021 XR Chest Single view Please click on the link to view the study images Normal [place] [address] Work Phone: [facility] Surgical Pathology Depar tmenton 02-11-2021 [facility] Surgical Pathology Department Name RIGO JEFFERSON Pathologist: JACINTO MURRIETA MD Date of Procedure: 02/11/2021 Date Received: 02/12/2021 Date Reported 02/19/2021 Submitting Physician: CHUCK CABALLERO M.D. Location: [facility] Copy To/Referring/Attending: CHUCK CABALLERO M.D. Other External [...] this case. Clinical History: Physician Contact Number: [phone] Fixative (A): Fresh Clinical Diagnosis History: disorders [...] EXB exb/02/12/2021 [facility] Department of Pathology [id number] [place] [address] Normal [facility] Comment on above: Performed By: #### U HCS ####[facility] Surgical Pathology [address] [place] [address] CORONAVIRUS 2019, SCREEN ASY MPTOMATICon 02-10-2021 SARS-CoV-2 (COVID-19) RNA BECCA+probe Ql (Unsp spec) Not detected Normal Not Detected [facility] Comment on above: Result Comment: . [...] patient management decisions. Fact sheet for providers: https://www.fda.gov/media/036914/download Fact sheet for patients: https://www.fda.gov/media/382268/download This test has received FDA Emergency Use Authorization (EUA) and has been verified by [facility] ([facility] [...] revoked sooner. [facility] is certified under CLIA-88 as qualified to perform high complexity testing. Testing is performed in the [facility] laboratories located at [address] [place] [address]. Performed By: #### C OVSC #### [place] [address] Covid 19 Resultson 06-08-202 1 SARS-CoV-2 (COVID-19) [...] by the [facility] to see if any of your [...] or Naproxen (Aleve) can also be used. Vywj-gye-ppofyvf cough and cold medicines can be used according to the instructions on the package. Some cdez-pfo-oejxmkg medicines also contain acetaminophen. Make sure you [...] water are not available, use alcohol-based hand customer support technician. Avoid touching your eyes, nose, and mouth [...] 24 alem (more content not included)... Normal [facility] CORONAVIRUS 2019, SCREEN ASY MPTOMATICon 02-09-2021 Lab Specimen Source Nasal, Nasopharyngeal Normal [facility] Comment on above: Performed By: #### C OVSC #### [facility] [id number] [place] [address] Coronavirus 2019 RNA by PCR, Screening Asymptomticon 02-09-2021 Coronavirus 2019 RNA by PCR, Screening Asymptomtic Not detected Normal See Below WN-Txxujkq-F [facility] 107 Work Phone: Comment on above: [...] make patient management decisions.Fact sheet for providers: https://www.fda.gov/media/062623/downloadFact sheet for patients: https://www.fda.gov/media/755919/downloadThis test has received FDA Emergency Use Authorization (EUA) and has been verified by [facility] ([facility] [...] revoked sooner. [facility] is certified under CLIA-88 as qualified to perform high complexity testing. Testing is performed in the [facility] laboratories located at [address] [place] [address]. BASIC METABOLIC PANELon 05-2 Anion gap [Moles/Vol] 13 mmol/L Normal 10 - 20 [facility] Comment on above: Performed By: #### B MP ####[id number] [place] [address] Calcium [Mass/Vol] 9.7 mg/dL Normal 8.6 - 10.6 [facility] Comment on above: Performed By: #### B MP ####[id number] [place] [address] Chloride [Moles/Vol] 108 mmol/L High 98 - 107 [facility] Comment on above: Performed By: #### B MP ####[id number] [place] [address] Creatinine [Mass/Vol] 1.04 mg/dL Normal 0.50 - 1.30 [facility] Comment on above: Performed By: #### B MP ####[id number] [place] [address] GFR- AM. >60 Normal >60 [facility] Comment on above: Result Comment: CALC ULATIONS OF ESTIMATED GFR ARE PERFORMED USING THE MDRD STUDY EQUATION FOR THE IDMS-TRACEABLE CREATININE METHODS. CLIN CHEM 2007;53:766-72 Performed By: #### B MP ####[id number] [place] [address] GFR-NON AM. >60 Normal >60 [facility] [place] Comment on above: Performed By: #### B MP ####[id number] [place] [address] Glucose [Mass/Vol] 91 mg/dL Normal 74 - 99 [facility] Comment on above: Performed By: #### B MP ####[id number] [place] [address] HCO3 (Bld) [Moles/Vol] 29 mmol/L Normal 21 - 32 [facility] Comment on above: Performed By: #### B MP ####[id number] [place] [address] Potassium [Moles/Vol] 4.6 mmol/L Normal 3.5 - 5.3 [facility] Comment on above: Performed By: #### B MP ####[id number] [place] [address] Sodium [Moles/Vol] 145 mmol/L Normal 136 - 145 [facility] Comment on above: Performed By: #### B MP ####[id number] [place] [address] Urea nitrogen [Mass/Vol] 13 mg/dL Normal 6 - 23 [facility] Comment on above: Performed By: #### B MP ####[id number] [place] [address] CBCon 01-27-2021 Erythrocyte distribution width (RBC) [Ratio] 12.2 % Normal 11.5 - 14.5 [facility] Comment on above: Performed By: #### C BC ####[id number] [place] [address] Hematocrit (Bld) [Volume fraction] 46.7 % Normal 41.0 - 52.0 [facility] Comment on above: Performed By: #### C BC ####[id number] [place] [address] Hemoglobin (Bld) [Mass/Vol] 15.1 g/dL Normal 13.5 - 17.5 [facility] Comment on above: Performed By: #### C BC ####[id number] [place] [address] MCHC (RBC) [Mass/Vol] 32.3 g/dL Normal 32.0 - 36.0 [facility] Comment on above: Performed By: #### C BC ####[id number] [place] [address] MCV (RBC) [Entitic vol] 96 fL Normal 80 - 100 [facility] Comment on above: Performed By: #### C BC ####[id number] [place] [address] NUCLEATED RBC 0.0 /100 WBC Normal 0.0-0.0 [facility] Comment on above: Performed By: #### C BC ####[id number] [place] [address] Platelets (Bld) [#/Vol] 209 10*3/uL Normal 150 - 450 [facility] Comment on above: Performed By: #### C BC ####[id number] [place] [address] RBC 4.85 x10E12/L Normal 4.50 - 5.90 [facility] Comment on above: Performed By: #### C BC ####[id number] [place] [address] WBC (Bld) [#/Vol] 7.2 10*3/uL Normal 4.4 - 11.3 [facility] Comment on above: Performed By: #### C BC ####[id number] [place] [address] Follow Up (General Surgery)o n 01-27-2021 Follow [...] EKG; Status:Hold For - Scheduling; Requested for:27Jan2021; Perform: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 Normal [employer] No Panel Informationon 01-27 [email or web address] 1:8080 [email or web address]?R etrieveTestByDateTime?Sherita gizHU=[id number]&Date=&Time=13%3a24%3a34%3a 00&TestType=ECG&Site=1&Out putType=PDF&Ext=PDF NG-Nobqqjt-[address] Work Phone: Normal sinus rhythm MG-Ramos rgery-[address] Work Phone: Normal OD-Npqekhf-Z [address] Work Phone: [phone] 1 UM-Ktttdme-[address] 107 Work Phone: [phone] 1 CZ-Sdyjqau-[address] 107 Work Phone: 205 1 EX-Fojagdi-[address] 107 Work Phone: 147 1 CN-Bzyiqgb-R [address] 107 Work Phone: 224 1 IM-Omqtxsw-[address] Work Phone: 11 1 KL-Defrcpx-A [address] 107 Work Phone: 69 1 KB-Bgacaql-E [address] 107 Work Phone: 26 1 JD-Dkxkatd-[address] Work Phone: 40 1 TX-Shxvnbq-J [address] 107 Work Phone: [phone] 1 AV-Ehvaxcv-Y [address] 107 Work Phone: 390 1 HP-Uohsfxu-[address] 107 Work Phone: 92 1 NB-Mydhueo-[address] 107 Work Phone: 154 1 ET-Ghbinis-[address] 107 Work Phone: 70 1 CL-Ennevmc-[address] Work Phone: Radiologyon 01-27-2021 XR Chest 2 Views Normal MG-Surge ry-[address] Work Phone: TH CHEST 2 VIEW PA AND LATon 01-27-2021 TH CHEST 2 VIEW PA AND LAT Patient Name: RIGO JEFFERSON STUDY: TH CHEST 2 VIEW PA AND LAT; 01/27/2021 11:00 am INDICATION: chronic hypoventilation. COMPARISON: Chest radiograph 04/03/2019 ACCESSION NUMBER(S): [id number] ORDERING CLINICIAN: CHUCK CABALLERO FINDINGS: Inspiratory and expiratory PA radiographs, [...] Electronically signed by: ANGI CAICEDO MD Normal [facility] Tobacco Screening.on 021 Tobacco use status CP b) No WQ-Hzqlime-[address] Work Phone: Tobacco Screening. b) No MG-Tino raysa-G [facility] [address] Work Phone: Otheron 04-03-2019 XR Chest 2 views Interpreted by: ISAK04/03/19 14:06MRN: [id number] Name: RIGO JEFFERSON STUDY:CHEST 2 VIEW PA [...] Electronically signed by: ISAK 04/03/19 14:06 Normal BG-Ptmvlxe-[address] Work Phone: Vital Signs Date Time Vital Sign Value Performing Clinician Facility 02-12-2021 14:10-0400 SaO2% (BldA) [Mass fraction] 95 % No Pcp Required [facility] 02-12-2021 14:00-0400 Body temperature 97.16 [degF] No Pcp Required [facility] 02-12-2021 14:00-0400 Diastolic blood pressure 83 mm[Hg] No Pcp Required [facility] 02-12-2021 14:00-0400 Heart rate 81 /min No Pcp Required [facility] 02-12-2021 14:00-0400 Respiratory rate 18 /min No Pcp Required [facility] 02-12-2021 14:00-0400 Systolic blood pressure 131 mm[Hg] No Pcp Required [facility] 02-12-2021 03:31-0400 Body height 182.8 cm No Pcp Required [facility] 02-12-2021 03:31-0400 Body weight 109.8 kg No Pcp Required [facility] 01-27-2021 11:12-0400 Body mass index (BMI) [Ratio] 33.64 kg/m2 Chuck Caballero MD Work Phone: ED-Xsqrkrf-[address] 107 Work Phone: 01-27-2021 11:12-0400 Body surface area Derived from formula 2.33 m2 Chuck Caballero MD Work Phone: NI-Qkjlkyv-E[address] 107 Work Phone: 01-27-2021 11:12-0400 Body temperature 96.1 [degF] Chuck Caballero MD Work Phone: PI-Puavdut-[address] Work Phone: 01-27-2021 11:12-0400 Body weight 112.49 kg Chuck Caballero MD Work Phone: MV-Ujrtvhh-[address] Work Phone: 01-27-2021 11:12-0400 Diastolic blood pressure 85 mm[Hg] Chuck Caballero MD Work Phone: QC-Yyadclp-[address] 107 Work Phone: 01-27-2021 11:12-0400 Heart rate 77 /min Chuck Caballero MD Work Phone: NU-Ibqwhod-[address] 107 Work Phone: 01-27-2021 11:12-0400 Systolic blood pressure 157 mm[Hg] Chuck Caballero MD Work Phone: EJ-Qvnongx-[address] Work Phone: 04-03-2019 15:37-0400 BMI (Body Mass Index) 30.11 kg/m2 Chandan Travon [facility]-Surgery -[place] 2099 Work Phone: 04-03-2019 15:37-0400 Body Temperature 97.9 [degF] Chandan Travon JX-Yzlzzqu-Bxxm ell 2099 Work Phone: 04-03-2019 15:37-0400 Body weight 100.7 kg Chandan [place] UJ-Mbbhkky-Maorg ll 2099 Work Phone: 04-03-2019 15:37-0400 BP Diastolic 74 mm[Hg] Chandan [place] JO-Erximgn-Jrpzj ll 2099 Work Phone: 04-03-2019 15:37-0400 BP Systolic 121 mm[Hg] Chandan [place] VA-Fnuqaqz-Mfjrj ll 2099 Work Phone: 04-03-2019 15:37-0400 BSA (Body Surface Area) 2.23 m2 Chandan [place] WU-Bkngfxh-Ncympll 2099 Work Phone: 04-03-2019 15:37-0400 Height 182.88 cm Chandan Travon OV-Ddzhoje-Woqlg ll 2099 Work Phone: 04-03-2019 15:37-0400 Pulse (Heart Rate) 58 /min Chandan [place] JP-Ntgrsma-[address] 2100 Work Phone: Encounters Encounter Date [...] related to original px No PCP None LM-Qdvievc-[address] Work Phone: Start: 02-20-2021 Chart Update No PCP None MG-Surgery -[address] Work Phone: Start: 02-11-2021 End: 02-12-2021 Evaluation and management of inpatient Chuck Caballero [facility] Lksd 55 Rm 5511 01 Start: 01-27-2021 Chart Update Chuck Caballero MD Work Phone: MU-Bapfrms-[address] Work Phone: Start: 04-03-2019 Patient encounter procedure Chnadan Cool ZP-Nkcqcdn-Tfchmob 2100 Work Phone: Start: 01-12-2018 Patient encounter procedure Chandan [place] AY-Qgsiwbl-F[address] 107 Work Phone: Start: 11-28-2017 Patient encounter procedure Chandan [place]mo XC-Zqzietz-[address] Work Phone: Start: 11-28-2017 Patient encounter procedure Chandan Matsonmo BC-Hucfgjs-[address] 107 Work Phone: Procedures Date Procedure [...] End: 11-Feb-2022 Ordered: 11-Feb-2021 Saw Yo Intent [facility] Payers Date Payer Category Payer Unknown [id number] 2018 Unknown 1960 Medicare [id number] 1960 Unknown [id number] 2.16.84 0.1.720107.3.579.2.593 1959 Unknown [id number] 2.16.84 0.1.367836.3.579.2.593 1959 Unknown [id number] 2.16.84 0.1.368714.3.579.2.593 1959 Unknown [id number] 2.16.84 0.1.919828.3.579.2.593 1959 Unknown [id number] 2.16.84 0.1.401425.3.579.2.593 1959 Unknown [id number] 2.16.84 0.1.401811.3.579.2.593 1959 Unknown [id number] 2.16.84 0.1.701448.3.579.2.593 1959 Unknown [id number] 2.16.84 0.1.980069.3.579.2.593 1959 Unknown [id number] 2.16.84 0.1.009981.3.579.2.593 1959 Unknown [id number] 2.16.84 0.1.893520.3.579.2.593 1959 Unknown [id number] 2.16.84 0.1.336249.3.579.2.1259 1959 Unknown [id number] 2.16.84 0.1.456354.3.579.2.1259 1959 Unknown [id number] 2.16.84 0.1.134357.3.579.2.1259 1959 Unknown [id number] 2.16.84 0.1.392589.3.579.2.1259 1959 Unknown [id number] 2.16.84 0.1.132735.3.579.2.1259 1959 Unknown [id number] 2.16.840 .1.495898.3.579.2.1259 Social History Date Type Detail Facility Former smoker Former smoker NA-Jjvvwxs-[address] Work Phone: Tobacco smoking consumption unknown [facility] NEGATED: Highlighted row - - MG- Surgery-Chase Villatoro 107 Work Phone: Functional Status Date Assessment Result Facility Functional observable [facility] NEGATED: Highlighted row Functional performance Functional status health issues are not documented Disease UG-Hsewies[address] Work Phone: Mental Status Date Assessment Result Facility 02-12-2021 Cognitive functi ons [id number] [facility] NEGATED: Highlighted row Cognitive function [Interpretation] Cognitive status health issues are not documented Disease PK-Dcnsljo-[address] Work Phone: Clinical Notes 02-11-2021 [...] our patients to inform us about any hkzg-okv-gcshlzg medications or herbal remedies/nutritional supplements/alternative remedies. 2. [...] options with their primary care provider. [facility] 11-25-2022 Note CONSULTATION CONSULTATION DATE: 11/25/2022 [...] of his shoulders, bilaterally, without contrast. [facility] 09-03-2022 Note CONSULTATION CONSULTATION DATE: 09/03/2022 [...] three months' time, unless otherwise indicated. [facility] 06-01-2022 Note CONSULTATION CONSULTATION DATE: 06/01/2022 [...] b.i.d. basis. The patient also uses the Viccodebender heat rub to his cervical spine. The [...] three months. CC: Shaikh Helena M.D. [facility] 05-18-2022 Note CONSULTATION CONSULTATION DATE: 05/18/2022 [...] to proceed. CC: Shaikh Helena M.D. [facility] 05-18-2022 Note CONSULTATION PROCEDURE DATE: 05/18/2022 [...] be followed up in the office. [facility] 04-29-2022 Note CONSULTATION CONSULTATION DATE: 04/29/2022 [...] for his injections with Dr. Duncan. [facility] 01-27-2022 Note CONSULTATION CONSULTATION DATE: 01/27/2022 [...] in three month's time, unless otherwise indicated. [facility] Signed and Approved by: RAVINDER ANDERSEN . 02/04/2022 16:12:00 [facility] 02-12-2021 Note Send Summary: Discharge Summary [...] at Discharge: .Home Vital Signs: T PRBPSpO2 Value36.35736361/8395% Date/Time02/12 12: 12: 12: 12: 12:10 Range(35.4C - 36.4C ) (77 - 99 ) (17 - 18 ) (127 - 147 )/ (83 - 91 ) (92% - 96% ) As of 12-Feb-2021 12:10:00, patient is on 2 L/min of oxygen Date: Weight/Scale Type:Height: 12-Feb-2021 01:56645.8 kg / uukwauyn911.8 cm Hospital Course: 60 yo male with [...] Call to Schedule in: 2 weeks Location: [address] [place] [address] Discharge Medications: Home Medication clarithromycin 250 mg [...] Last Updated: 13-Feb-2021 10:13 by Chuck Caballero) [facility] 02-11-2021 Note Post Operative Note: PreOp Diagnosis: diaphragm paralysis Post-Procedure Diagnosis: same Procedure: 1. laparoscopic L diaphragm plication 2. removal of bilateral diaphragm pacing wires 3. L pigtail chest tube placement Surgeon: Dr Chuck Caballero Resident/Fellow/Other Batch Blender: Dr Saw Yo Anesthesia: GETA Estimated Blood [...] Last Updated: 12-Feb-2021 07:53 by Chuck Caballero) [facility] 02-11-2021 Note History & Physical R [...] Last Updated: 11-Feb-2021 15:50 by Chuck Caballero) [facility] Chief complaint Narrative - Reported An interactive audio and video telecommunication system which permits real time communications between the patient (at the originating site) and provider (at the distant site) was utilized to provide this telehealth service.Post op WZ[address] Work Phone: Evaluation note Constitutional: Well developed, awake/alert/oriented x3, no distress, alert and cooperativeSkin: warm and dryEyes: PERRL, EOMI, clear scleraENMT: MMMHead/Neck: NCATRespiratory/Thorax: good chest expansion, thorax symmetricCardiovascular: RRRGastrointestinal: Nondistended, soft, non-tender, no rebound tenderness or guardingMusculoskeletal: moves all extremitiesExtremities: well perfusedNeurological: grossly intactPsychological: Appropriate mood and behavior [facility] History of Present illness Narrative He [...] not he wants to follow-up with a interpreter translator in our system. QA-[address] Work Phone: Hospital Discharge instructions [...] weekFollow Up Appointment 2:Physician/Dept/Service: Dr. Caballero - [facility] for Referral: hospital follow-up / diaphragm pacer removal, hemidiaphragm plicationLocation: [address], [place], [place]Phone Number: [phone] Form - Other Clinicians:Other Clinician Instructions: Please take your medications as directed. Please follow-up with Dr. Caballero and with your PCP as directed. You may remove dressings and shower Tuesday. No heavy lifting >20lbs or strenours activity for 3 weeks. If your symptoms return or worsen, please seek medical attention. Thank you for allowing us to participate in your care. [facility] Family History No Family History Records [...] AUTHOR AUTHOR'S ORGANIZ ATION 12/31/2022 [facility] pital DATE CREATED AUTHOR AUTHOR'S ORGANIZ ATION 01/31/2024 [facility] FOR RECORDS PERTAINING TO PATIENTS WHO [...] BE BASED ON THE PRIMARY CLINICAL RECORDS. [facility]. provides no warranty or guarantee of the accuracy or completeness of information in this document.
--- NOTE | 2024-03-28 09:45 | P.CN_ITS ---
Consult Note: HPI Data of Consult Patient: known to practice within the last 3 years Requesting Physician: Sho Galdamez NP Primary Care Provider: Shaikh Helena MD Consult Narrative Reason for consult: f/u Narrative: Ryan Pete a pleasant 63 year old male presents for evaluation of chronic pain. Today pain 6/10 in low back, ache worse with activity. increases to 10/10 at its worst. Increasing pain radiating down left leg with intermittent cramping and weakness. Pain increased with twisting, pushing, pulling, standing, lifting, activity. Pain improved mildly with TENS, ibuprofen, lidocaine patches, baclofen, and percocet 5-325mg QID PRN. Patient denies side effects. denies loss of bowel or bladder, no recent lumbar imaging. cc:: CC: Sho Galdamez NP Review of Systems ROS Status of ROS 10 or more systems reviewed and unremark able except as noted in history and below Musculoskeletal Reports: back pain, neck pain, extremity pain and joint pain PFSH [facility] Medical History (Updated 03/28/24 @ 10:03 by Sho Galdamez NP) COPD (chronic obstructive pulmonary disease) ?J44.9 - Chronic obstructive pulmonary disease, unspecified (ICD-10) Rheumatoid arthritis ?M06.9 - Rheumatoid arthritis, unspecified (ICD-10) Upper back pain ?M54.9 - Dorsalgia, unspecified (ICD-10) Low back pain ?M54.50 - Low back pain, unspecified (ICD-10) Uses continuous positive airway pressure (CPAP) ventilation at home ?Z99.89 - Dependence on other enabling machines and devices (ICD-10) Emphysema lung ?J43.9 - Emphysema, unspecified (ICD-10) Hypertension ?I10 - Essential (primary) hypertension (ICD-10) Surgical History Hx of cholecystectomy ?Z90.49 - Acquired absence of other specified parts of digestive tract (ICD- 10) H/O cardiac catheterization ?Z98.890 - Other specified postprocedural states (ICD-10) H/O heart bypass surgery ?Z95.1 - Presence of aortocoronary bypass graft (ICD-10) History of lung surgery ?Z98.890 - Other specified postprocedural states (ICD-10) History of tonsillectomy ?Z90.89 - Acquired absence of other organs (ICD-10) H/O cervical spine surgery ?Z98.890 - Other specified postprocedural states (ICD-10) H/O carpal tunnel repair ?Z98.890 - Other specified postprocedural states (ICD-10) H/O arthroscopy of knee ?Z98.890 - Other specified postprocedural states (ICD-10) Meds Home Medications and Allergies Home Medications ?Medication ?Instructions ?Recorded ?Confirmed ?Type atorvastatin 40 mg tablet (Lipitor) 40 mg PO DAILY 02/17/23 12/20/23 History baclofen 10 mg tablet 10 mg PO BID 02/17/23 12/20/23 History lidocaine 5 % topical patch 1 patch topical DAILY 02/17/23 12/20/23 History (Lidoderm) oxycodone-acetaminophen 5 mg-325 1 tab PO QID 02/17/23 12/20/23 History mg tablet (Percocet) fexofenadine 60 mg tablet (Kristina 60 mg PO BID 12/13/23 12/20/23 History Allergy) testosterone enanthate 50 mg/0.5 50 mg subcut QWEEK 12/13/23 12/20/23 History mL subcutaneous auto-injector (Xyosted) ibuprofen 200 mg tablet 800 mg PO TID PRN pain 12/20/23 12/20/23 History oxycodone-acetaminophen 5 mg-325 1 tab PO QID PRN pain #120 tabs 12/20/23 Rx mg tablet (Percocet) oxycodone-acetaminophen 5 mg-325 1 tab PO QID PRN pain #120 tabs 01/17/24 Rx mg tablet (Percocet) oxycodone-acetaminophen 5 mg-325 1 tab PO QID PRN pain #120 tabs 02/15/24 Rx mg tablet (Percocet) oxycodone-acetaminophen 5 mg-325 1 tab PO QID PRN pain #120 tabs 03/19/24 Rx mg tablet (Percocet) Allergies Allergy/AdvReac Type Severity Reaction Status Date / Time No Known Drug Allergies Allergy Verified 12/20/23 07:39 Exam Constitutional Documenting provider has reviewed patient's vital signs: yes Common normals: no apparent distress, oriented x3, healthy appearing, alert and well nourished General appearance: cooperative HENFL Common normals: normocephalic, hearing grossly normal bilaterally and moist oral mucous membranes Head and scalp: normocephalic Eye Common normals: PERRL Pupil: PERRL Neck & C-Spine Common normals: full ROM General: normal visual inspection Cervical spine: cervical ROM normal, pain with cervical ROM, paracervical muscle tenderness and trapezius muscle tenderness Chest Common normals: inspection of chest normal Respiratory Common normals: normal respiratory effort, no retractions and no use of accessory muscles Back & Pelvis Lumbar spine/lower back: ROM limited, pain with ROM and straight leg raise positive left Sacroiliac joints: SI joint(s) abnormal (pain with bilateral sho, fadir, thigh thrust) Other: decreased sensation to left L4,5,S1 pattern strength 4/5 in LLE Extremity Common normals: normal to inspection Right lower extremity: hip joint and knee joint Left lower extremity: hip joint Other: left hip: no pain with internal and external rotation right hip: mild to moderate pain with internal and external rotation left knee enlarged diameter, mild edema, pain with medial and lateral stress testing, crepitus noted on exam Neuro Common normals: oriented x3, CN's II-XII intact bilaterally, moves all extremities, no focal motor deficits, no sensory deficits noted and deep tendon reflexes 2+ bilaterally Sensorium/orientation: alert Gait (neuro): antalgic Motor exam: no movement abnormalities noted Psych Common normals: mental status grossly normal, thought process normal, cooperative, affect normal, speech normal and activity/motor behavior normal Speech: normal speech Thought process: normal thought process Results Additional Findings Additional findings: If on a controlled substance or opioids, I have checked an [place] report on this patient and there are no aberrancies noted in the prescribing history.??If on a controlled substance or opioid a drug screen was completed and reviewed within the last year, and if there has not been a drug screen completed we ordered one today to monitor higher risk, state monitored pain medication use. As part of providing excellent, safe, comprehensive care, the following was completed at our patient's visit: 1. A medication reconciliation and review to ensure accurate knowledge of current/active medications, including asking our patients to inform us about any [id number] medications or herbal remedies/nutritional supple ments/alternative remedies. 2. A review to specifically ensure our patients have had annual screening for screening for depression, screening for tobacco use, and screening for unhealthy alcohol use. For concerning screenings had a discussion with the patient, provided patient education, and recommended follow-up with primary care provider when appropriate. If patient noted with a risk of falling, they received education on strength, gait, and balance training to prevent future risk of falling. Assessment and Plan Assessment and Plan (1) Lumbar radiculopathy: (2) Lumbar spondylosis: (3) Lumbar degenerative disc disease: (4) Left knee pain: (5) Osteoarthritis of left hip: (6) Bilateral hip pain: (7) Encounter for long-term opiate analgesic use: Assessment and Plan: I feel these medications are improving the patient's quality of life and allow them to tolerate activities of daily living as well as participate in recreational activity.? The patient does not report intolerable side effects. The patient is NOT opioid naive and non-pharmacologic and non-opioid treatment has failed to significantly relieve the patient's pain and improve functionality. The patient has a diagnosis that is related to a somatic or visceral pain etiology. ? ?? I reviewed with the patient the potential risks and side effects with the use of? opioid medications including but not limited to respiratory depression,? sedation, and even . I verified the patient has access to naloxone should? these effects occur. I advised the patient to avoid the use of any other? sedation substances including alcohol, THC, and benzodiazepines while? taking opioid medications due to the risk of compounding side effects and? detrimental outcomes. I reviewed the [employer], pain treatment agreement, urine? drug screen, and opioid start talking forms. The patient was advised to let? their family know they had Naloxone in case they would need to administer? the medication.? ?? A drug screen was completed within the last year, and no aberrancies were noted regarding their use of controlled substances. The patient understands they are subject to the terms and conditions of the pain contract that they have signed. ? ?? I have checked an [place] report on this patient today and there are no aberran cies noted in the prescribing history.? patient reports improvement in functional ability, able to work outside and take care of his house with less pain, participate in hobbies denies side effects from medication regimen (8) Osteoarthritis: (9) Shoulder arthritis: (10) Lumbar stenosis with neurogenic claudication: Plan update lumbar xray with flexion and extension to evaluate stability update lumbar MRI without contrast with 10mg PO valium for anxiety to evaluate chronic low back pain, lumbar DDD, and lumbar radiculopathy reports left lung no longer works after cervical RFAs in the past, follows with PCP and pulmonology continue current medication regimen, finds functional improvement without side effects continue HEP as tolerated f/u to review imaging
== END 2024-03-28 09:19 | disposition home or self-care (01) ==
LOC: PM 09:18
PROVIDERS: PCP Internal Medicine; Visit Provider Nurse Practitioner
DX: M54.16 Radiculopathy, lumbar region (principal); M47.816 Spondylosis without myelopathy or radiculopathy, lumbar region; M51.36 Other intervertebral disc degeneration, lumbar region; M25.562 Pain in left knee; M16.12 Unilateral primary osteoarthritis, left hip; M25.551 Pain in right hip; M25.552 Pain in left hip; Z79.891 Long term (current) use of opiate analgesic; M48.062 Spinal stenosis, lumbar region with neurogenic claudication; M19.012 Primary osteoarthritis, left shoulder; M19.011 Primary osteoarthritis, right shoulder
CPT/HCPCS: G0463

== ENCOUNTER 2024-04-03 08:51 | Outpatient (OUT) | payer OTHER, SELFPAY ==
--- NOTE | 2024-04-03 08:54 | XR_ITS ---
[facility] [id number] Patient Name: RIGO JEFFERSON MRN: [id number] date: 1960 Sex: M Assigned Patient Location: MRI Current Patient Location: Accession/Order Number: [id number] Exam Date: 04/03/2024 09:50 Report Date: 04/04/2024 14:07 At the request of: PEDRO DEL REAL Procedure: XR lumbar spine 6V w bending EXAMINATION: XR lumbar spine 6V w bending HISTORY: Lumbar Radiculopathy, Lumbar Stenosis COMPARISON: No relevant comparison available. FINDINGS: BONES: Normal alignment with no acute fracture or spondylolisthesis. Moderate to severe spondylosis and facet osteoarthropathy DISC SPACES: Normal. No significant disc height narrowing, subluxation, or endplate abnormality. PARASPINOUS: Negative. No paraspinous abnormality is seen. OTHER: Negative. XR/XR lumbar spine 6V w bending IMPRESSION: Moderate to severe degenerative changes Electronically authenticated by: RADHA DIAZ Date: 04/04/2024 14:07
--- NOTE | 2024-04-03 08:54 | MR_ITS ---
[address] [address] Patient Name: RIGO JEFFERSON MRN: [id number] date: 1960 Sex: M Assigned Patient Location: MRI Current Patient Location: Accession/Order Number: [id number] Exam Date: 04/03/2024 09:09 Report Date: 04/03/2024 16:10 At the request of: PEDRO DEL REAL Procedure: MR lumbar spine wo con EXAMINATION: MR lumbar spine wo con HISTORY: Lumbar Radiculopathy, Lumbar Stenosis COMPARISON: No relevant comparison available. TECHNIQUE: A variety of imaging planes and parameters were utilized for visualization of suspected pathology. FINDINGS: For the purposes of numbering, sagittal T2 image # 9 extends from the T11 vertebral body superiorly to the S2-S3 level inferiorly. PARASPINAL AREA: Normal with no visible mass. BONES: Normal alignment of the lumbar vertebral bodies with no acute fracture or spondylolisthesis. Signal abnormality likely in place likely representing Modic 2 change. Bulky anterior degenerative spondylosis, severe CORD/CAUDA EQUINA: Normal caliber, contour, and signal intensity. DISC LEVELS: 12-L1: Disc space narrowing and desiccation. No disc bulge or herniation. No central or foraminal stenosis L1-L2: Disc space narrowing and desiccation. No disc bulge or herniation. No central or foraminal stenosis L2-L3: Disc space narrowing and desiccation. No disc bulge or herniation. No central or foraminal stenosis L3-L4: Disc space narrowing. Broad-based posterior moderate disc/osteophyte complex. Moderate to severe ligamentum flavum hypertrophy and facet osteoarthropathy. Moderate central canal stenosis axial image #20. Moderate right and no left foraminal stenosis L4-L5: Disc desiccation. Mild diffuse disc bulge. Severe ligamentum flavum hypertrophy. Moderate bilateral facet osteoarthropathy. Moderate to severe central canal stenosis. Mild right and moderate to severe left foraminal stenosis L5-S1: Mild disc desiccation. Ligamentum flavum hypertrophy and facet osteoarthropathy. Mild bilateral foraminal stenosis MR/MR lumbar spine wo con IMPRESSION: Degenerative changes resulting in moderate to severe central canal stenosis L3-L4 and L4-L5 Foraminal stenosis at L3-S1 detailed above Electronically authenticated by: RADHA DIAZ Date: 04/03/2024 16:10
--- OUTSIDE RECORDS SUMMARY | 2024-04-03 09:06 | XMS_ITS | CCD ---
Author Organization [facility] Care Team Providers Care Instrumentation Specialist Name Role Phone Chandan Cool Unavailable Unavailable Sid Ac Unavailable Unavailable Required, No Pcp Unavailable Unavailable Chuck Caballero Unavailable None, No PCP Unavailable Unavailable [facility] Primary Care Unavailable EMILY, DR RADHA Gaxiola Consulting Unavailable DUNCAN ., DR LLUVIA Sheldon Attending Unavailable DUNCAN ., DR LLUVIA Sheldon Admitting Unavailable DUNCAN ., DR LLUVIA Sheldon Consulting Unavailable [facility] Primary Care Unavailable DUNCAN ., DR LLUVIA Sheldon Attending Unavailable DUNCAN ., DR LLUVIA Sheldon Consulting Unavailable DUNCAN ., DR LLUVIA Sheldon Admitting Unavailable [facility] Primary Care Unavailable DUNCAN ., DR LLUVIA Sheldon Attending Unavailable DUNCAN ., DR LLUVIA Sheldon Consulting Unavailable DUNCAN ., DR LLUVIA Sheldon Admitting Unavailable [facility] Primary Care Unavailable ANDERSEN .RAVINDER Consulting Unavailable DUNCAN ., DR LLUVIA Sheldon Admitting Unavailable DUNCAN ., DR LLUVIA Sheldon Attending [facility] Primary Care Unavailable ANDERSEN .RAVINDER Consulting Unavailable DUNCAN ., DR LLUVIA Sheldon Admitting Unavailable DUNCAN ., DR LLUVIA Sheldon Attending Unavailable [facility] Primary Care Unavailable LAKSHMIPATHY ., NARENDRANATH Attending Nadira vailable LAKSHMIPATHY ., NARENDRANATH Admitting Nadira vailable [facility], [facility] Primary Care Unavailable LAKSHMIPATHY ., NARENDRANATH Attending Nadira vailable LAKSHMIPATHY ., NARENDRANATH Consulting Nadira vailable LAKSHMIPATHY ., NARENDRANATH Admitting Nadira vailable [facility], [facility] Primary Care Unavailable LAKSHMIPATHY ., NARENDRANATH Consulting [...] MCG/ACT Inhalation Aerosol Solution Refills: 0 Travon SALGUERONNixonXM1 TANK DRIVERChandan Start : 28-Nov-2017 Active lisinopril 20 mg [...] by: DOMINGA FLYNN Date: 2022-12-08 10:25 Normal [facility] MRI SHOULDER RT WO CONon MRI SHOULDER [...] DOMINGA FLYNN Date: 2022-12-08 10:35 Normal [facility] XR CSPINE OBL FLEX_EXTon XR CSPINE OBL [...] RADHA DIAZ Date: 2022-05-31 20:33 Normal [facility] Post Op (General Surgery)on 04-02-2021 Post Op [...] not he wants to follow-up with a crushed stone grader in our system. Provider Impressions He is [...] not he wants to follow-up with a crushed stone grader in our system. Chief Complaint An interactive [...] not he wants to follow-up with a crushed stone grader in our system. Active Problems COPD (chronic [...] MG Oral Tablet Results/Data Xray Chest 1 [id number] 04:27PMJesusita Faith Test NameResultFlagReference Xray Chest 1 View(Report) FINAL REPORT Interpreted by: МАРИНА MARCELO MD 02/12/21 16:52 Patient Name: RIGO JEFFERSON STUDY: CHEST 1 VIEW; 02/12/2021 4:27 pm INDICATION: chest tube removal. COMPARISON: Prior 11:07 a.m. radiograph. ACCESSION NUMBER(S): [id number] ORDERING CLINICIAN: JESUSITA FAITH FINDINGS: Left basilar [...] Apr 02 2021 5:38PM EST (Author) Normal [email or web address] Admission Risk Screen - Adul ton 02-12-2021 Admission Risk Screen - Adult Allergies: Allergies: No Known Allergies: Patient Verification: New W ID Band Applied in my Departmentno Type of ID Patient is WearingW wristband, but not applied here Patient Transferred from Other Facility ([facility], [facility],etc)no Patient Identity Verified Bypatient ID Band [...] AlertFor Ebola-like Symptoms: Isolate Patient and Notify Provider/Print Finisher For Contact: Notify Provider/Print Finisher Advance Directive: Advance Directive/DNRno (1) Advance Directive [...] Learning Preferencesverbal instruction Cultural Considerationsnone Developmental Considerationsnone Bahai Considerationsnone Learning Assessment (Other Learner): Other learner availableno Depression Screen: During the past month, have you often been bothered by feeling down, depressed or hopelessno (1) During the past month, have you often had little interest or pleasure in doing thingsno (1) Have you had any thoughts of harming anyone elseno (1) [place] Suicide: Risk Screen Not Applicable/Able to Answerable to be screened In the Past Month: Have you wished you were or could go to sleep and not wake upno(1) In the Past Month: Have you had any actual thoughts of killing yourself no(1) Lifetime: Have you ever done, started to do, or prepared to do anything to end your lifeno(1) [place] Suicide Risknegative Adult Nutrition Screen: Have you [...] Pain (nonverbal)verbalization (more content not included)... Normal [facility] BASIC METABOLIC PANELon 06- 0-2020 Anion gap [Moles/Vol] 15 mmol/L Normal 10 - 20 [facility] Comment on above: Performed By: #### B MP #### [facility] [address] [place] [address] Calcium [Mass/Vol] 9.5 mg/dL Normal 8.6 - 10.6 [facility] Comment on above: Performed By: #### B MP #### [facility] [address] [place] [address] Chloride [Moles/Vol] 102 mmol/L Normal 98 - 107 [facility] Comment on above: Performed By: #### B MP #### [facility] [address] [place] [address] Creatinine [Mass/Vol] 0.98 mg/dL Normal 0.50 - 1.30 [facility] Comment on above: Performed By: #### B MP #### [facility] [address] [place] [address] GFR- AM. >60 Normal >60 [facility] [place] Comment on above: Result Comment: CALC ULATIONS OF ESTIMATED GFR ARE PERFORMED USING THE MDRD STUDY EQUATION FOR THE IDMS-TRACEABLE CREATININE METHODS. CLIN CHEM 2007;53:766-72 Performed By: #### B MP #### [facility] [address] [place] [address] GFR-NON AM. >60 Normal >60 [facility] Comment on above: Performed By: #### B MP #### [facility] [address] [place] [address] Glucose [Mass/Vol] 133 mg/dL High 74 - 99 [facility] Comment on above: Performed By: #### B MP #### [facility] [address] [place] [address] HCO3 (Bld) [Moles/Vol] 24 mmol/L Normal 21 - 32 [facility] Comment on above: Performed By: #### B MP #### [facility] [address] [place] [address] Potassium [Moles/Vol] 4.3 mmol/L Normal 3.5 - 5.3 [facility] Comment on above: Performed By: #### B MP #### [facility] [address] [place] [address] Sodium [Moles/Vol] 137 mmol/L Normal 136 - 145 [facility] Comment on above: Performed By: #### B MP #### [facility] [address] [place] [address] Urea nitrogen [Mass/Vol] 17 mg/dL Normal 6 - 23 [facility] Comment on above: Performed By: #### B MP #### [facility] [address] [place] [address] CBCon 02-12-2021 Erythrocyte distribution width (RBC) [Ratio] 12.1 % Normal 11.5 - 14.5 [facility] Comment on above: Performed By: #### C BC #### [facility] [address] [place] [address] Hematocrit (Bld) [Volume fraction] 45.8 % Normal 41.0 - 52.0 [facility] Comment on above: Performed By: #### C BC #### [facility] [address] [place] [address] Hemoglobin (Bld) [Mass/Vol] 15.0 g/dL Normal 13.5 - 17.5 [facility] Comment on above: Performed By: #### C BC #### [facility] [address] [place] [address] MCHC (RBC) [Mass/Vol] 32.8 g/dL Normal 32.0 - 36.0 [facility] Comment on above: Performed By: #### C BC #### [facility] [address] [place] [address] MCV (RBC) [Entitic vol] 94 fL Normal 80 - 100 [facility] Comment on above: Performed By: #### C BC #### [facility] [address] [place] [address] NUCLEATED RBC 0.0 /100 WBC Normal 0.0-0.0 [facility] [place] Comment on above: Performed By: #### C BC #### [facility] [address] [place] [address] Platelets (Bld) [#/Vol] 228 10*3/uL Normal 150 - 450 [facility] Comment on above: Performed By: #### C BC #### [facility] [address] [place] [address] RBC 4.85 x10E12/L Normal 4.50 - 5.90 [facility] Comment on above: Performed By: #### C BC #### [facility] [address] [place] [address] WBC (Bld) [#/Vol] 12.8 10*3/uL High 4.4 - 11.3 [facility] Comment on above: Performed By: #### C BC #### [facility] [address] [place] [address] Clinical Event Note-POCon Clinical Event Note-POC Clinical [...] 00:41 by Nataliia Ferris ( (Resident)) Normal [facility] Daily Progress Note-Surgeryo n 02-12-2021 Daily [...] yet. Objective Data: Objective Information: T PRBPSpO2 Value35.26787152/8695% Date/Time02/12 6:4902/12 6:4902/12 6:4902/12 6:4902/12 6:49 Range(35.4C - 36.4C ) (77 - 99 ) (17 - 18 ) (127 - 147 )/ (86 - 91 ) (95% - 96% ) Pain reported at 02/12 2:54: 6 = Moderate ---- Intake and Output ----- Mn/Dy/Year TimeIntakeOutputNet Feb 12, 2021 6:00 [id number] Feb 11, 2021 10:00 [id number] The Intake and Output Totals for the last 24 hours are: IntakeOutminers' colfax medical centerNet [id number] Physical Exam by System: Constitutional: Well developed, [...] Updated: 13-Feb-2021 10:13 by Chuck Caballero) Normal [facility] Discharge Planning Sqmf8ih 0 02-12-2021 Discharge Planning Note2 Discharge Planning: Needs Prior to Discharge (ex. Home Care Orders, IV/O2 prescriptions) Follow up appointments Discharge Barriers (ex. Avoidable days, wait guardianship, pt refuse leave) None Planned Dispositionhome Discharge DestinationHome [facility] [place] of Choice Explainedyes preference Anticipated Discharge [id number]-0591 Discharge Planning 02/12/2021 0135 Discharge Plan Patient transferred from [place] [address] from PACU for diaphragm plication. Pt is A&O times 4. at 3 liters oxygen. Pt denies any medical authorization specialist use at home. Pt emergency service advocate contact Sahil Joe- son. Pt have valuable belongings [...] disposition: Home Potential Barriers: none ADOD: 02/12. nursing program coordinator will continue to follow for discharge planning needs. Franny Gilliam RN, Transitional Family Nurse Practitioner/TCC, pager [phone] Discharge note: 02/12/21 @ 1735: PT discharged home at this time. pts peripheral IV taken out prior to DC. pt given DC instructions. pt verbalized understanding. pt refused transport and walked downstairs with his son.---Erika stock human resources benefits specialist: Discharge Planning Assessment [id number] Primary Contact Name and NumberAdam [phone](1) Stated Reason for Admissiondiaphragm plication(2) Arrived FromOR (2) Lives Withparent(s)(2) Living Arrangementshouse(2) Resource/Environmental Concernsnone(2) Anticipated Transition [place](2) Services Anticipated at Transitionnone(2) Discharge Documentation: Discharge/Transfer Date/Buyn40-Lli-6882 17:35 Discharge Modeambulatory Discharged Accompanied Byfamily member [...] Profile - Adult v2 12-Feb-2021 01:31 Normal [facility] Discharge [id number] 021 Discharge Profile2 Discharge Orders: Anticipated Discharge Date: Anticipated Discharge [id number] DNAR: DNAR Status: none Call Provider If [...] hemidiaphragm plication Call to Schedule in2 weeks [place] [address] Hilario [address] Phone [phone] Other Clinician Instructions: Other Instructions: Other Clinician [...] Appointments, Other Clinician Instructions, Gold Form - Integrated Marketing Specialist Summary Last Updated: 12-Feb-2021 15:27 by Jesusita Faith ( (Resident)) Normal [facility] Laboratory - Chemistry and C hemistry - challengeon 02-12-2021 Anion gap [Moles/Vol] 15 mmol/L 10 - 20 WB-Rlmoiss-U [address] Work Phone: Calcium [Mass/Vol] 9.5 mg/dL 8.6 - 10.6 MG-Tino raysa-G [address] Work Phone: Chloride [Moles/Vol] 102 mmol/L 98 - 107 ZW-Vxrqzrt-P [address] Work Phone: CO2 [Moles/Vol] 24 mmol/L 21 - 32 MG-Surger y-[address] [facility] [facility] [address] Work Phone: Creatinine [Mass/Vol] 0.98 mg/dL See Below OJ-Iuxtnvr-[address] Work Phone: Comment on above: Reference Range: 0.5 0 - 1.30 Glucose [Mass/Vol] 133 mg/dL above high threshold 74 - 99 XM-Ukzvwcz-[facility] Work Phone: Potassium [Moles/Vol] 4.3 mmol/L 3.5 - 5.3 AC-Jdqcuyi-[facility] Work Phone: Sodium [Moles/Vol] 137 mmol/L 136 - 145 MG-Tino raysa-[facility] Work Phone: Urea nitrogen [Mass/Vol] 17 mg/dL 6 - 23 CL-Qdkzdcx-I [facility] Work Phone: Laboratory - Hematology and Cell countson 02-12-2021 Erythrocyte distribution width (RBC) [Ratio] 12.1 % See Below TV-Lofwwyd-[facility] Work Phone: Comment on above: Reference Range: 11. 5 - 14.5 Hematocrit (Bld) [Volume fraction] 45.8 % See Below OS-Sdkmbns-[facility] Work Phone: Comment on above: Reference Range: 41. 0 - 52.0 Hemoglobin (Bld) [Mass/Vol] 15.0 g/dL See Below CG-Szaagib-[facility] [place] [address] Work Phone: Comment on above: Reference Range: 13. 5 - 17.5 MCHC (RBC) [Mass/Vol] 32.8 g/dL See Below NV-Cwifodk[facility] [place] [address] Work Phone: Comment on above: Reference Range: 32. 0 - 36.0 MCV (RBC) [Entitic vol] 94 fL 80 - 100 QB-Gcjqhvb-[facility] [place] [address] Work Phone: Platelets (Bld) [#/Vol] 228 10*3/uL 150 - 450 ZO-Cgpkwkf-G [address] Work Phone: RBC (Bld) [#/Vol] 4.85 {x10E12/L} See Below MG -Surgery-G [address] Work Phone: Comment on above: Reference Range: 4.5 0 - 5.90 WBC (Bld) [#/Vol] 12.8 10*3/uL above high threshold 4.4 - 11.3 VK-Qifnpkw-N [address] Work Phone: No Panel Informationon 02-12 >60 >60 JR-Fofnrll-D [address] Work Phone: Comment on above: CALCULATIONS OF LANRE MATED GFR ARE PERFORMED USING THE MDRD STUDY EQUATION FOR THE IDMS-TRACEABLE CREATININE METHODS. CLIN CHEM 2007;53:766-72 0.0 {/100_WBC} 0.0-0.0 MG-Surgery -[facility] Work Phone: Order Reconciliationon 02-12 Order [...] tab(s) orally 2 times a day Normal [facility] Patient Profile - Adult v2on 02-12-2021 Patient Profile - Adult v2 Profile: Initial Info: How to be AddressedDel(1) Spoken Language PreferredEnglish (1) Stated Reason for Admissiondiaphragm plication Patient Belongingsremains with patient Patient Belongings Remaining with Patientcash/credit card; clothing Arrived FromOR Medications Brought to Hospitalno Are you currently using the Personal Electronic Health Record or [employer]no (1) Wants Family/Rep Notified of Admissionyes, primary contact Notify PCPnotify PCP Informed of Patient Visiting Rightsyes General Health: Blood Avoidance/Restrictionsnone (1) Previous Transfusion Reactionno(2) Weight in kg109.8 kilogram(s)(3) Weight in fpp381 pound(s) Weight Methodactual (measured) (3) Scale Typestanding (3) Height in cm182.8 centimeter(s) Height in feet6 feet(3) Height in inches0 inch(es)(3) Height Methodstated (3) BMI (kg/m2)32.858 square meter [facility] Based Care: How would you like [...] From 1. Vital Signs 11-Feb-2021 12:02 Normal [facility] Radiologyon 02-12-2021 XR Chest Single view Normal ID-Ckcqjda-Y [address] Work Phone: XR Chest Single view Normal XD-Dymvmlz-[address] Work Phone: XR Chest Single view Normal QS-Lopziuv-V [address] Work Phone: TH CHEST 1 VIEWon 02-12-2021 TH CHEST 1 VIEW Patient Name: RIGO JEFFERSON STUDY: CHEST 1 VIEW; 02/12/2021 4:27 pm INDICATION: chest tube removal. COMPARISON: Prior 11:07 a.m. radiograph. ACCESSION NUMBER(S): [id number] ORDERING CLINICIAN: JESUSITA FAITH FINDINGS: Left basilar [...] Electronically signed by: МАРИНА MARCELO MD Normal [facility] TH CHEST 1 VIEW Patient Name: RIGO JEFFERSON STUDY: CHEST 1 VIEW; 02/12/2021 11:58 am INDICATION: chest tube wet seal. COMPARISON: 7:02 a.m. radiograph. ACCESSION NUMBER(S): [id number] ORDERING CLINICIAN: JESUSITA FAITH FINDINGS: Left basilar [...] Electronically signed by: МАРИНА MARCELO MD Normal [facility] CHEST 1 VIEW Patient Name: RIGO JEFFERSON STUDY: CHEST 1 VIEW; 02/12/2021 7:13 am INDICATION: POD 1 s/p diaphragm plication. COMPARISON: 02/11/2021. ACCESSION NUMBER(S): [id number] ORDERING CLINICIAN: SAW YO FINDINGS: Left basilar [...] Electronically signed by: МАРИНА MARCELO MD Normal [facility] No Panel Informationon 02-11 [place] [address] Work Phone: [facility] [place] [address] Patient Name: RIGO JEFFERSON : 1960 Date of Service: 02/11/2021 Patient Location: [place] [address] Patient Type: I Surgeon: Chuck Caballero MD Report Type: Operative Reports PREOPERATIVE DIAGNOSIS: Chronic respiratory failure, left diaphragm dysfunction. POSTOPERATIVE DIAGNOSIS: Chronic respiratory failure, left diaphragm dysfunction. OPERATION/PROCEDURE: Laparoscopic left diaphragm plication with removal of previous diaphragm pacing wires. SURGEON: Chuck Caballero MD INDIRECT SALES REPRESENTATIVE(S): Saw Yo MD. There was no available resident. ANESTHESIA: LOCATION: [facility]. CLINICAL NOTE: This is a patient [...] TT: 02/12/2021 12:44 PM EST DICTATION NUMBER: [id number] BRIE JOB NUMBER: [id number] CC: PT STATES NONE PCP Electronic Signatures: Chuck Caballero) (Signed on 13-Feb-2021 10:15) Authored Unsigned, Draft (SYS GENERATED) (Entered on 12-Feb-2021 12:44) Entered Last Updated: 13-Feb-2021 10:15 by Chuck Caballero) Normal [facility] Order Reconciliationon 02-11 Order Reconciliation Page 1 Admission Reconciliation Document Reconciliation Type: Admission from OR requested on behalf of Saw Yo (Physician) done by Saw Yo) Admission from OR - Reconciliation: 11-Feb-2021 18:31 by: Saw Yo) Home MedicationsEnteredLast Dose TakenReconciled with current Order Reconciliation Comment/ Additional Information Kristina 24 Hour Allergy oral tablet 1 tab(s) orally once a viv14-Psh-052111-Feb-2021 AM Reviewed and Held clarithromycin 250 mg oral tablet 250 milligram(s) orally once a day [id number] Clarithromycin Tablet (BIAXIN)DOSE = 250 mg Oral Every 24 Hoursclarithromycin 250 mg oral tablet continued as the inpatient order Clarithromycin diclofenac sodium 50 mg oral delayed release tablet 1 tab(s) orally 2 times a qig50-Dks-217188-Vpp-8209 AM Reviewed and Held oxycodone-acetaminophen 5 mg-300 mg oral tablet 1 tab(s) orally 2 times a day [id number]-2456 AM Reviewed and Held Additional Current Orders [...] 15 minute(s)Clinician Notes: Carlota-operative order ONLY Normal [facility] Patient Profile - Preop v2on 02-11-2021 Patient Profile - Preop v2 Profile: Initial Info: How to be AddressedDel(1) Spoken Language PreferredEnglish (1) Source of Informationpatient Are you currently using the Personal Electronic Health Record or link [employer]no (1) Are you interested in learning more about link [employer] for the management of your healthnot at this time Stated Reason for AdmissionL pulling of wires/pulling lung down Primary Contact Name and NumberAda [phone] Patient Belongingspatient educated regarding responsibility for personal items Medications Brought to Hospitalno General Health: Weight in kg109.8 kilogram(s) Weight in gpv215 pound(s) Weight Methodactual (measured) Scale Typestanding Height [...] Learning Preferencesverbal instruction Cultural Considerationsnone Developmental Considerationsnone Bahai Considerationsnone Other learner availableno Falls RiskPatient location auto qualifies him/her for HIGH RISK. Are there any cultural, spiritual, christianity practices/values/needs that are important for us to [...] Profile - Adult v2 12-Dec-2017 16:00 Normal [facility] Preop Checkliston 02-11-2021 Preop Checklist Preop Checklist: Preop Checklist: Arrival [id number] Arrival Time11:48 Procedure TypeL laparoscopic diaphragm plication Temperature C36.1 degrees C Temperature F96.9 degrees F Heart Rate70 beats per minute Respiratory Rate12 breath per minute Blood Pressure Qwrhfavv585 mm/Hg Blood Pressure Usvmqalve46 mm/Hg NPO Rlxudz55-Pji-2641 00:00 ID Band Onyes Allergy Bandno known [...] 11-Feb-2021 12:02 by Jany Ann (RN) Normal [facility] Radiologyon 02-11-2021 XR Chest Single view Please click on the link to view the study images Normal [place] [address] Work Phone: [facility] Surgical Pathology Depar tmenton 02-11-2021 [facility] Surgical Pathology Department Name RIGO JEFFERSON Pathologist: JACINTO MURRIETA MD Date of Procedure: 02/11/2021 Date Received: 02/12/2021 Date Reported 02/19/2021 Submitting Physician: CHUCK CABALLERO M.D. Location: [facility] Copy To/Referring/Attending: CHUCK CABALLERO M.D. Other External # FINAL DIAGNOSIS A. SPECIMEN LABELED PACING WIRE : -- FRAGMENT OF ADIPOSE TISSUE WITH NO SPECIFIC PATHOLOGIC CHANGES. -- PACING WIRE (SEE GROSS DESCRIPTION). afn Electronically Signed Out By JACINTO MURIRETA MD/AFN By the signature on this report, the individual or group listed as making the Final Interpretation/Diagnosis certifies that they have reviewed this case. Clinical History: Physician Contact Number: [phone] Fixative (A): Fresh Clinical Diagnosis History: disorders of diaphragm Specimens Submitted As: A: PACING WIRE Gross Description: Received in formalin, labeled with the patient's name and hospital number, are multiple wires with a piece of adipose tissue attached measuring 3.0 x 1.6 x 1.0 cm. A photograph is taken. The attached soft tissue is submitted entirely in one cassette. EXB exb/02/12/2021 [facility] Department of Pathology [address] [place] [address] Normal [facility] Comment on above: Performed By: #### U HCS ####[facility] Surgical Pathology [address] [place] [address] CORONAVIRUS 2019, SCREEN ASY MPTOMATICon 02-10-2021 SARS-CoV-2 (COVID-19) RNA BECCA+probe Ql (Unsp spec) Not detected Normal Not Detected [facility] Comment on above: Result Comment: . [...] patient management decisions. Fact sheet for providers: https://www.fda.gov/media/238112/download Fact sheet for patients: https://www.fda.gov/media/438847/download This test has received FDA Emergency Use Authorization (EUA) and has been verified by [facility] ([facility]). This test is only authorized for the duration of time that circumstances exist to justify the authorization of the emergency use of in vitro diagnostic tests for the detection of SARS-CoV-2 virus and/or diagnosis of COVID-19 infection under section 564(b)(1) of the Act, 21 U.S.C. 360bbb-3(b)(1), unless the authorization is terminated or revoked sooner. [facility] is certified under CLIA-88 as qualified to perform high complexity testing. Testing is performed in the [facility] laboratories located at [address] [place] [address]. Performed By: #### C OVSC #### [place] [address] Covid 19 Resultson 06-08-202 1 SARS-CoV-2 (COVID-19) [...] by the [facility] to see if any of [...] or Naproxen (Aleve) can also be used. Yjir-gin-copcfvl cough and cold medicines can be used according to the instructions on the package. Some ahmk-hvy-holensk medicines also contain acetaminophen. Make sure you [...] water are not available, use alcohol-based hand gallery or museum curator. Avoid touching your eyes, nose, and mouth [...] 24 alem (more content not included)... Normal [facility] CORONAVIRUS 2019, SCREEN ASY MPTOMATICon 02-09-2021 Lab Specimen Source Nasal, Nasopharyngeal Normal [facility] Comment on above: Performed By: #### C OVSC #### [facility] [id number] [place] [address] Coronavirus 2019 RNA by PCR, Screening Asymptomticon 02-09-2021 Coronavirus 2019 RNA by PCR, Screening Asymptomtic Not detected Normal See Below LR-Sijosjq-U [facility] 107 Work Phone: Comment on above: [...] make patient management decisions.Fact sheet for providers: https://www.fda.gov/media/809285/downloadFact sheet for patients: https://www.fda.gov/media/753923/downloadThis test has received FDA Emergency Use Authorization (EUA) and has been verified by [facility] ([facility]). This test is only authorized for the duration of time that circumstances exist to justify the authorization of the emergency use of in vitro diagnostic tests for the detection of SARS-CoV-2 virus and/or diagnosis of COVID-19 infection under section 564(b)(1) of the Act, 21 U.S.C. 360bbb-3(b)(1), unless the authorization is terminated or revoked sooner. [facility] is certified under CLIA-88 as qualified to perform high complexity testing. Testing is performed in the [facility] laboratories located at [address] [place] [address]. BASIC METABOLIC PANELon 05-2 Anion gap [Moles/Vol] 13 mmol/L Normal 10 - 20 [facility] Comment on above: Performed By: #### B MP ####[id number] [place] [address] Calcium [Mass/Vol] 9.7 mg/dL Normal 8.6 - 10.6 [facility] Comment on above: Performed By: #### B MP ####[id number] [place] [address] Chloride [Moles/Vol] 108 mmol/L High 98 - 107 [facility] Comment on above: Performed By: #### B MP ####[id number] [place] [address] Creatinine [Mass/Vol] 1.04 mg/dL Normal 0.50 - 1.30 [facility] Comment on above: Performed By: #### B MP ####[id number] [place] [address] GFR- AM. >60 Normal >60 [facility] [place] Comment on above: Result Comment: CALC ULATIONS OF ESTIMATED GFR ARE PERFORMED USING THE MDRD STUDY EQUATION FOR THE IDMS-TRACEABLE CREATININE METHODS. CLIN CHEM 2007;53:766-72 Performed By: #### B MP ####[id number] [place] [address] GFR-NON AM. >60 Normal >60 [facility] Comment on above: Performed By: #### B MP ####[id number] [place] [address] Glucose [Mass/Vol] 91 mg/dL Normal 74 - 99 [facility] Comment on above: Performed By: #### B MP ####[id number] [place] [address] HCO3 (Bld) [Moles/Vol] 29 mmol/L Normal 21 - 32 [facility] Comment on above: Performed By: #### B MP ####[id number] [place] [address] Potassium [Moles/Vol] 4.6 mmol/L Normal 3.5 - 5.3 [facility] Comment on above: Performed By: #### B MP ####[id number] [place] [address] Sodium [Moles/Vol] 145 mmol/L Normal 136 - 145 [facility] Comment on above: Performed By: #### B MP ####[id number] [place] [address] Urea nitrogen [Mass/Vol] 13 mg/dL Normal 6 - 23 [facility] Comment on above: Performed By: #### B MP ####[id number] [place] [address] CBCon 01-27-2021 Erythrocyte distribution width (RBC) [Ratio] 12.2 % Normal 11.5 - 14.5 [facility] Comment on above: Performed By: #### C BC ####[id number] [place] [address] Hematocrit (Bld) [Volume fraction] 46.7 % Normal 41.0 - 52.0 [facility] Comment on above: Performed By: #### C BC ####[id number] [place] [address] Hemoglobin (Bld) [Mass/Vol] 15.1 g/dL Normal 13.5 - 17.5 [facility] Comment on above: Performed By: #### C BC ####[id number] [place] [address] MCHC (RBC) [Mass/Vol] 32.3 g/dL Normal 32.0 - 36.0 [facility] Comment on above: Performed By: #### C BC ####[id number] [place] [address] MCV (RBC) [Entitic vol] 96 fL Normal 80 - 100 [facility] Comment on above: Performed By: #### C BC ####[id number] [place] [address] NUCLEATED RBC 0.0 /100 WBC Normal 0.0-0.0 [facility] [place] Comment on above: Performed By: #### C BC ####[id number] [place] [address] Platelets (Bld) [#/Vol] 209 10*3/uL Normal 150 - 450 [facility] Comment on above: Performed By: #### C BC ####[id number] [place] [address] RBC 4.85 x10E12/L Normal 4.50 - 5.90 [facility] Comment on above: Performed By: #### C BC ####[id number] [place] [address] WBC (Bld) [#/Vol] 7.2 10*3/uL Normal 4.4 - 11.3 [facility] Comment on above: Performed By: #### C BC ####[id number] [place] [address] Follow Up (General Surgery)o n 01-27-2021 Follow [...] EKG; Status:Hold For - Scheduling; Requested for:27Jan2021; Perform:[facility] [place] 1800; Due:27Apr2021;Ordered; For:Diaphragm dysfunction, [...] 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 He was turning the device off 1-2 [...] MG Oral Tablet Vitals Vital Signs Recorded: 22Apy1181 11:12AM Pqhwgrbksqc10.1 F Heart Rate77 Adeljhph462 Hzmumrfsm99 Gfddpx102 lb BMI Qdrvnlcnet58.64 kg/m2 BSA Calculated2.33 Tobacco Useb) No Physical [...] the r (more content not included)... Normal [employer] No Panel Informationon 01-27 [email or web address] 1:8080 [email or web address]?R [email or web address]?Sherita [email or web address]&Date=&Time=13%3a24%3a34%3a 00&TestType=ECG&Site=1&Out putType=PDF&Ext=PDF GV-Yfjnwvi-[address] Work Phone: Normal sinus rhythm MG-Ramos rgery-G [address] Work Phone: Normal VP-Pyzwhxg-A [address] Work Phone: [phone] LL-Thrqtco-Z [address] Work Phone: [phone] JP-Pdrpael-M [address] Work Phone: [phone] ON-Hfszsqe-J [address] Work Phone: 147 1 VN-Ezrjmyz-R [address] Work Phone: 224 1 AI-Dxvbsmi-V [address] Work Phone: 11 1 UY-Vefngxm-A [address] Work Phone: 69 1 BY-Sxkyqqd-F [address] Work Phone: 26 1 DJ-Deewxuf-G [address] Work Phone: 40 1 DY-Eiqfasy-F [address] Work Phone: [phone] 1 YP-Eahrxto-U [address] Work Phone: 390 1 SI-Utephju-H [address] Work Phone: 92 1 WR-Hfykyxs-Y [address] Work Phone: 154 1 ET-Pvpirjj-P [address] Work Phone: 70 1 ID-Efiglgq-W [address] Work Phone: Radiologyon 01-27-2021 XR Chest 2 Views Normal MG-Surge ry-G [address] Work Phone: TH CHEST 2 VIEW PA AND LATon 01-27-2021 TH CHEST 2 VIEW PA AND LAT Patient Name: RIGO JEFFERSON STUDY: TH CHEST 2 VIEW PA AND LAT; 01/27/2021 11:00 am INDICATION: chronic hypoventilation. COMPARISON: Chest radiograph 04/03/2019 ACCESSION NUMBER(S): [id number] ORDERING CLINICIAN: CHUCK CABALLERO FINDINGS: Inspiratory and [...] Electronically signed by: ANGI CAICEDO MD Normal [facility] Tobacco Screening.on 021 Tobacco use status CP b) No XA-Dysydjo-[address] Work Phone: Tobacco Screening. b) No MG-Tino raysa[facility] [address] Work Phone: Otheron 04-03-2019 XR Chest 2 views Interpreted by: ISAK04/03/19 14:06MRN: [id number] Name: RIGO JEFFERSON STUDY:CHEST 2 VIEW PA [...] Electronically signed by: ISAK 04/03/19 14:06 Normal OZ-Eesbrfw-[address] Work Phone: Vital Signs Date Time Vital Sign Value Performing Clinician Facility 02-12-2021 14:10-0400 SaO2% (BldA) [Mass fraction] 95 % No Pcp Required [facility] 02-12-2021 14:00-0400 Body temperature 97.16 [degF] No Pcp Required [facility] 02-12-2021 14:00-0400 Diastolic blood pressure 83 mm[Hg] No Pcp Required [facility] 02-12-2021 14:00-0400 Heart rate 81 /min No Pcp Required [facility] 02-12-2021 14:00-0400 Respiratory rate 18 /min No Pcp Required [facility] 02-12-2021 14:00-0400 Systolic blood pressure 131 mm[Hg] No Pcp Required [facility] 02-12-2021 03:31-0400 Body height 182.8 cm No Pcp Required [facility] 02-12-2021 03:31-0400 Body weight 109.8 kg No Pcp Required [facility] 01-27-2021 11:12-0400 Body mass index (BMI) [Ratio] 33.64 kg/m2 Chuck Caballero MD Work Phone: SS-Pgfozpf[address] Work Phone: 01-27-2021 11:12-0400 Body surface area Derived from formula 2.33 m2 Chuck Caballero MD Work Phone: DS-Roeqgqt-[address] Work Phone: 01-27-2021 11:12-0400 Body temperature 96.1 [degF] Chuck Caballero MD Work Phone: HF-Mlgkxds-[address] Work Phone: 01-27-2021 11:12-0400 Body weight 112.49 kg Chuck Caballero MD Work Phone: PV-Nzqxnfw-[address] Work Phone: 01-27-2021 11:12-0400 Diastolic blood pressure 85 mm[Hg] Chuck Caballero MD Work Phone: RQ-Jwhbism-[address] Work Phone: 01-27-2021 11:12-0400 Heart rate 77 /min Chuck Caballero MD Work Phone: BL-Gbbbrfv-[address] Work Phone: 01-27-2021 11:12-0400 Systolic blood pressure 157 mm[Hg] Chuck Caballero MD Work Phone: NY-Rcrwjnr-[address] Work Phone: 04-03-2019 15:37-0400 BMI (Body Mass Index) 30.11 kg/m2 Chandan Travon MG-Surgery -[place] [address]99 Work Phone: 04-03-2019 15:37-0400 Body Temperature 97.9 [degF] Chandan Travon BF-Hbeairl-[address]99 Work Phone: 04-03-2019 15:37-0400 Body weight 100.7 kg Chandan Mohnton SP-Iupyyov-[address]u [address] 2099 Work Phone: 04-03-2019 15:37-0400 BP Diastolic 74 mm[Hg] Chandan Mohnton TO-Fajadlx-O[address]ts [address] 2099 Work Phone: 04-03-2019 15:37-0400 BP Systolic 121 mm[Hg] Cahndan Mohnton MM-Carugwk-Oscxk ll 2099 Work Phone: 04-03-2019 15:37-0400 BSA (Body Surface Area) 2.23 m2 Chandan Mohnton RM-Jswfbdt-Nwgylcl 2099 Work Phone: 04-03-2019 15:37-0400 Height 182.88 cm Chandan Travon GM-Luvunyi-[address] 2099 Work Phone: 04-03-2019 15:37-0400 Pulse (Heart Rate) 58 /min Chandan Cool LB-Kbswtoy-[address]100 Work Phone: Encounters Encounter Date [...] related to original px No PCP None OF-Phqufhv-[address] Work Phone: Start: 02-20-2021 Chart Update No PCP None MG-Surgery -[address] Work Phone: Start: 02-11-2021 End: 02-12-2021 Evaluation and management of inpatient Chuck Caballero [facility] [address] 55 Rm 5511 01 Start: 01-27-2021 Chart Update Chuck Caballero MD Work Phone: RL-Qpbbrcj-[address] Work Phone: Start: 04-03-2019 Patient encounter procedure Chandan Cool DW-Fvifbvo-[address] Work Phone: Start: 01-12-2018 Patient encounter procedure Chandan Mohnton GS-Dfdjmtz-[address] Work Phone: Start: 11-28-2017 Patient encounter procedure Chandan Matsonmo HM-Awbamrg-[address] Work Phone: Start: 11-28-2017 Patient encounter procedure Chandan Matsonmo VC-Xjzrzvk-[address] Work Phone: Procedures Date Procedure [...] End: 11-Feb-2022 Ordered: 11-Feb-2021 Saw Yo Intent [facility] Payers Date Payer Category Payer Unknown [id number] 2018 Unknown 1960 Medicare [id number] 1960 Unknown [id number] 2.16.84 [id number] 1959 Unknown [id number] 2.16.84 0.1.391574.3.579.2.593 1959 Unknown [id number] 2.16.84 0.1.674278.3.579.2.593 1959 Unknown [id number] 2.16.84 0.1.695722.3.579.2.593 1959 Unknown [id number] 2.16.84 0.1.425634.3.579.2.593 1959 Unknown [id number] 2.16.84 0.1.967900.3.579.2.593 1959 Unknown [id number] 2.16.84 0.1.092826.3.579.2.593 1959 Unknown [id number] 2.16.84 0.1.063785.3.579.2.593 1959 Unknown [id number] 2.16.84 0.1.125116.3.579.2.593 1959 Unknown [id number] 2.16.84 0.1.214043.3.579.2.593 1959 Unknown [id number] 2.16.84 0.1.659460.3.579.2.1259 1959 Unknown [id number] 2.16.84 0.1.474896.3.579.2.1259 1959 Unknown [id number] 2.16.84 0.1.243741.3.579.2.1259 1959 Unknown [id number] 2.16.84 0.1.882280.3.579.2.1259 1959 Unknown [id number] 2.16.84 0.1.486425.3.579.2.1259 1959 Unknown [id number] 2.16.840 .1.329705.3.579.2.1259 Social History Date Type Detail Facility Former smoker Former smoker DT-Fqaegym[address] Work Phone: Tobacco smoking consumption unknown [facility] NEGATED: Highlighted row - - MG- Surgery-Chase Villatoro 107 Work Phone: Functional Status Date Assessment Result Facility Functional observable [facility] NEGATED: Highlighted row Functional performance Functional status health issues are not documented Disease IB-Lfcvffn-[address] Work Phone: Mental Status Date Assessment Result Facility 02-12-2021 Cognitive functi ons [id number] [facility] NEGATED: Highlighted row Cognitive function [Interpretation] Cognitive status health issues are not documented Disease SW-Mnpobcz-[address] Work Phone: Clinical Notes 02-11-2021 [...] our patients to inform us about any vvpe-wtf-wwgykle medications or herbal remedies/nutritional supplements/alternative remedies. 2. [...] options with their primary care provider. [facility] 11-25-2022 Note CONSULTATION CONSULTATION DATE: 11/25/2022 TO: [...] of his shoulders, bilaterally, without contrast. [facility] 09-03-2022 Note CONSULTATION CONSULTATION DATE: 09/03/2022 HISTORY [...] three months' time, unless otherwise indicated. [facility] 06-01-2022 Note CONSULTATION CONSULTATION DATE: 06/01/2022 CHIEF [...] b.i.d. basis. The patient also uses the VicSitefly heat rub to his cervical spine. The [...] three months. CC: Shaikh Helena M.D. [facility] 05-18-2022 Note CONSULTATION CONSULTATION DATE: 05/18/2022 HISTORY [...] to proceed. CC: Shaikh Helena M.D. [facility] 05-18-2022 Note CONSULTATION PROCEDURE DATE: 05/18/2022 PREOPERATIVE [...] be followed up in the office. [facility] 04-29-2022 Note CONSULTATION CONSULTATION DATE: 04/29/2022 HISTORY [...] for his injections with Dr. Duncan. [facility] 01-27-2022 Note CONSULTATION CONSULTATION DATE: 01/27/2022 HISTORY [...] in three month's time, unless otherwise indicated. [facility] Signed and Approved by: RAVINDER ANDERSEN . 02/04/2022 16:12:00 [facility] 02-12-2021 Note Send Summary: Discharge Summary Providers: [...] at Discharge: .Home Vital Signs: T PRBPSpO2 Value36.07352060/8395% Date/Time02/12 12: 12: 12: 12: 12:10 Range(35.4C - 36.4C ) (77 - 99 ) (17 - 18 ) (127 - 147 )/ (83 - 91 ) (92% - 96% ) As of 12-Feb-2021 12:10:00, patient is on 2 L/min of oxygen Date: Weight/Scale Type:Height: 12-Feb-2021 01:33401.8 kg / eesuxzey173.8 cm Hospital Course: 60 yo male with [...] Call to Schedule in: 2 weeks Location: [address] [place] [address] Discharge Medications: Home Medication clarithromycin 250 mg [...] Last Updated: 13-Feb-2021 10:13 by Chuck Caballero) [facility] 02-11-2021 Note Post Operative Note: PreOp Diagnosis: diaphragm paralysis Post-Procedure Diagnosis: same Procedure: 1. laparoscopic L diaphragm plication 2. removal of bilateral diaphragm pacing wires 3. L pigtail chest tube placement Surgeon: Dr Chuck Caballero Resident/Fellow/Other Data Processing Supervisor: Dr Saw Yo Anesthesia: GETA Estimated Blood [...] Last Updated: 12-Feb-2021 07:53 by Chuck Caballero) [facility] 02-11-2021 Note History & Physical R [...] care, and discharge plan. Electronic Signatures: Chuck Caballreo) (Signed 09-Fabian-2021 15:50) Authored: History & Physical Reviewed, ERAS, Consent, Note Completion Last Updated: 11-Feb-2021 15:50 by Chuck Caballero) [facility] Chief complaint Narrative - Reported An interactive audio and video telecommunication system which permits real time communications between the patient (at the originating site) and provider (at the distant site) was utilized to provide this telehealth service.Post op IO-[address] Work Phone: Evaluation note Constitutional: Well developed, awake/alert/oriented x3, no distress, alert and cooperativeSkin: warm and dryEyes: PERRL, EOMI, clear scleraENMT: MMMHead/Neck: NCATRespiratory/Thorax: good chest expansion, thorax symmetricCardiovascular: RRRGastrointestinal: Nondistended, soft, non-tender, no rebound tenderness or guardingMusculoskeletal: moves all extremitiesExtremities: well perfusedNeurological: grossly intactPsychological: Appropriate mood and behavior [facility] History of Present illness Narrative He [...] not he wants to follow-up with a crushed stone grader in our system. UN-[address] Work Phone: Hospital Discharge instructions [...] weekFollow Up Appointment 2:Physician/Dept/Service: Dr. Caballero - [facility] for Referral: hospital follow-up / diaphragm pacer removal, hemidiaphragm plicationLocation: [address], [place], [place] Number: [phone] Form - Other Clinicians:Other Clinician Instructions: Please take your medications as directed. Please follow-up with Dr. Caballero and with your PCP as directed. You may remove dressings and shower Tuesday. No heavy lifting >20lbs or strenours activity for 3 weeks. If your symptoms return or worsen, please seek medical attention. Thank you for allowing us to participate in your care. [facility] Family History No Family History Records [...] DATE CREATED AUTHOR AUTHOR'S ORGANIZ ATION 04/08/2021 [facility] DATE CREATED AUTHOR AUTHOR'S ORGANIZ ATION 12/31/2022 [facility] DATE CREATED AUTHOR AUTHOR'S ORGANIZ ATION 01/31/2024 [facility] FOR RECORDS PERTAINING TO PATIENTS [...] BE BASED ON THE PRIMARY CLINICAL RECORDS. [facility]. provides no warranty or guarantee of the accuracy or completeness of information in this document.
== END 2024-04-03 08:52 | disposition home or self-care (01) ==
LOC: MRI 08:51
PROVIDERS: PCP Internal Medicine; Visit Provider Nurse Practitioner
DX: M54.16 Radiculopathy, lumbar region (principal); M48.062 Spinal stenosis, lumbar region with neurogenic claudication; M51.36 Other intervertebral disc degeneration, lumbar region
CPT/HCPCS: 72114; 72148

== ENCOUNTER 2024-04-10 11:38 | Outpatient (OUT) | payer OTHER, SELFPAY ==
--- NOTE | 2024-04-10 | CONS_ITS ---
CONSULTATION DATE: 04/10/2024 TO: Dr. Malik CHIEF COMPLAINT: Includes left flank pain. HISTORY OF PRESENT ILLNESS: Patient presents today complaining of 5-7/10 pain in his lower back, left lower extremity, described as a deep, thumping type of pain, aching pain with an occasional sharp component. It does occur with activities such as standing, walking, performing transitioning maneuvers. He feels most comfortable in the semi-recumbent position. Denies any change in bowel and bladder habits or new sensorimotor changes in the lower extremities. He reports he has had old numbness and tingling of his left lower extremity, but this is not new. CURRENT MEDICATION: Includes Percocet 5 mg q.i.d., baclofen 10 mg b.i.d. His STEWART on today?s visit is 42%. EXAM: Notable for patient having mild hypoesthesia along the left L4 dermatome with mild weakness of his left anterior tibialis and quadriceps, depressed left patellar reflex. The weakness was 3/5 strength in anterior tibialis and quadriceps. Straight leg raise is equivocally positive at approximately 90 degrees. No clinical signs consistent with myelopathy noted in the lower extremities. IMPRESSION: Our impression is patient with chronic pain secondary to left L4 radiculopathy with multilevel spinal stenosis. RECOMMENDATIONS: I recommend he consider starting Zonegran 15 mg at h.s., to continue with an aquatic program, and to proceed with an L4-5 lumbar epidural steroid injection and lastly, we have requested a neurosurgical consultation; however, he has requested to go to the [facility]. We will make the appropriate referral. As part of providing excellent, safe, comprehensive care, the following was completed at our patient's visit: 1. A medication reconciliation and review to ensure accurate knowledge of current/active medications, including asking our patients to inform us about any wtvw-kwa-sufyvoc medications or herbal remedies/nutritional supplements/alternative remedies. 2. A review to specifically ensure our patients have had annual screening for: elevated body mass index (BMI, see intake chart for exact total), tobacco use, screening for depression, and screening for unhealthy alcohol use. When screening is concerning, patients are provided with education and the specific recommendation to discuss the concerning health issue and treatment options with their primary care provider. DAVID
--- OUTSIDE RECORDS SUMMARY | 2024-04-10 11:52 | XMS_ITS | CCD ---
Author Organization [facility] Providers Care Gas Engine Repairer Name Role Phone Chandan Cool Unavailable Unavailable Sid Ac Unavailable Unavailable Required, No Pcp Unavailable Unavailable Chuck Caballero Unavailable None, No PCP Unavailable Unavailable [facility] [employer] Primary Care Unavailable EMILY, DR RADHA Gaxiola Consulting Unavailable DUNCAN ., DR LLUVIA Sheldon Attending Unavailable DUNCAN ., DR LLUVIA Sheldon Admitting Unavailable DUNCAN ., DR LLUVIA Sheldon Consulting [facility] [employer] Primary Care Unavailable DUNCAN ., DR LLUVIA Sheldon Attending Unavailable DUNCAN ., DR LLUVIA Sheldon Consulting Unavailable DUNCAN ., DR LLUVIA Sheldon Admitting [facility]available [facility] [employer] Primary Care Unavailable DUNCAN ., DR LLUVIA Sheldon Attending Unavailable DUNCAN ., DR LLUVIA Sheldon Consulting Unavailable DUNCAN ., DR LLUVIA Sheldon Admitting Unavailable [facility] [employer] Primary Care Unavailable ANDERSEN .RAVINDER Consulting Unavailable DUNCAN ., DR LLUVIA Sheldon Admitting Unavailable DUNCAN ., DR LLUVIA Sheldon Attending [facility] [employer] Primary Care Unavailable ANDERSEN .RAVINDER Consulting Unavailable DUNCAN ., DR LLUVIA Sheldon Admitting Unavailable DUNCAN ., DR LLUVIA Sheldon Attending [facility]available [facility] [employer] Primary Care Unavailable LAKSHMIPATHY ., NARENDRANATH Attending Nadira vailable LAKSHMIPATHY ., NARENDRANATH Admitting Nadira vailable [facility], [employer] Primary Care Unavailable LAKSHMIPATHY ., NARENDRANATH Attending Nadira vailable LAKSHMIPATHY ., NARENDRANATH Consulting Nadira vailable LAKSHMIPATHY ., NARENDRANATH Admitting Nadira vailable [facility], [employer] Primary Care Unavailable LAKSHMIPATHY ., NARENDRANATH Consulting [...] MCG/ACT Inhalation Aerosol Solution Refills: 0 Travon SALGUERONNixonFOREST FIRE PREVENTION MANAGERhCandan Start : 28-Nov-2017 Active lisinopril 20 mg [...] by: DOMINGA FLYNN Date: 2022-12-08 10:25 Normal [facility] MRI SHOULDER RT WO CONon MRI [...] DOMINGA FLYNN Date: 2022-12-08 10:35 Normal [facility] XR CSPINE OBL FLEX_EXTon XR CSPINE [...] RADHA DIAZ Date: 2022-05-31 20:33 Normal [facility] Post Op (General Surgery)on 04-02-2021 Post [...] not he wants to follow-up with a fruit preserver in our system. Provider Impressions He is [...] not he wants to follow-up with a fruit preserver in our system. Chief Complaint An interactive [...] not he wants to follow-up with a fruit preserver in our system. Active Problems COPD (chronic [...] MG Oral Tablet Results/Data Xray Chest 1 [id number] 04:27PMJesusita Faith Test NameResultFlagReference Xray Chest 1 View(Report) FINAL REPORT Interpreted by: МАРИНА MARCELO MD 02/12/21 16:52 Patient Name: RIGO JEFFERSON STUDY: CHEST 1 VIEW; 02/12/2021 4:27 pm INDICATION: chest tube removal. COMPARISON: Prior 11:07 a.m. radiograph. ACCESSION NUMBER(S): [id number] ORDERING CLINICIAN: JESUSITA FAITH FINDINGS: Left basilar [...] Apr 02 2021 5:38PM EST (Author) Normal [employer] Admission Risk Screen - Adul ton 02-12-2021 Admission Risk Screen - Adult Allergies: Allergies: No Known Allergies: Patient Verification: New W ID Band Applied in my Departmentno Type of ID Patient is WearingW wristband, but not applied here Patient Transferred from Other Facility ([facility], [facility],etc)no Patient Identity Verified Bypatient ID Band [...] AlertFor Ebola-like Symptoms: Isolate Patient and Notify Provider/Transplant Nurse Practitioner For Contact: Notify Provider/Transplant Nurse Practitioner Advance Directive: Advance Directive/DNRno (1) Advance Directive [...] Learning Preferencesverbal instruction Cultural Considerationsnone Developmental Considerationsnone Yazidi Considerationsnone Learning Assessment (Other Learner): Other learner availableno Depression Screen: During the past month, have you often been bothered by feeling down, depressed or hopelessno (1) During the past month, have you often had little interest or pleasure in doing thingsno (1) Have you had any thoughts of harming anyone elseno (1) [place] Suicide: Risk Screen Not Applicable/Able to Answerable to be screened In the Past Month: Have you wished you were or could go to sleep and not wake upno(1) In the Past Month: Have you had any actual thoughts of killing yourself no(1) Lifetime: Have you ever done, started to do, or prepared to do anything to end your lifeno(1) [place] Suicide Risknegative Adult Nutrition Screen: Have you [...] included)... Normal [facility] BASIC METABOLIC PANELon 06- 0-2020 Anion gap [Moles/Vol] 15 mmol/L Normal 10 - 20 [facility] Comment on above: Performed By: #### B MP #### [facility] [address] [place] [address] Calcium [Mass/Vol] 9.5 mg/dL Normal 8.6 - 10.6 [facility] Comment on above: Performed By: #### B MP #### [facility] [address] [place] [address] Chloride [Moles/Vol] 102 mmol/L Normal 98 - 107 [facility] Comment on above: Performed By: #### B MP #### [facility] [address] [place] [address] Creatinine [Mass/Vol] 0.98 mg/dL Normal 0.50 - 1.30 [facility] Comment on above: Performed By: #### B MP #### [facility] [address] [place] [address] GFR- AM. >60 Normal >60 [facility] [place] Comment on above: Result Comment: CALC ULATIONS OF ESTIMATED GFR ARE PERFORMED USING THE MDRD STUDY EQUATION FOR THE IDMS-TRACEABLE CREATININE METHODS. CLIN CHEM 2007;53:766-72 Performed By: #### B MP #### [facility] [address] [place] [address] GFR-NON AM. >60 Normal >60 [facility] Comment on above: Performed By: #### B MP #### [facility] [address] [place] [address] Glucose [Mass/Vol] 133 mg/dL High 74 - 99 [facility] Comment on above: Performed By: #### B MP #### [facility] [address] [place] [address] HCO3 (Bld) [Moles/Vol] 24 mmol/L Normal 21 - 32 [facility] Comment on above: Performed By: #### B MP #### [facility] [address] [place] [address] Potassium [Moles/Vol] 4.3 mmol/L Normal 3.5 - 5.3 [facility] Comment on above: Performed By: #### B MP #### [facility] [address] [place] [address] Sodium [Moles/Vol] 137 mmol/L Normal 136 - 145 [facility] Comment on above: Performed By: #### B MP #### [facility] [address] [place] [address] Urea nitrogen [Mass/Vol] 17 mg/dL Normal 6 - 23 [facility] Comment on above: Performed By: #### B MP #### [facility] [address] [place] [address] CBCon 02-12-2021 Erythrocyte distribution width (RBC) [Ratio] 12.1 % Normal 11.5 - 14.5 [facility] Comment on above: Performed By: #### C BC #### [facility] [address] [place] [address] Hematocrit (Bld) [Volume fraction] 45.8 % Normal 41.0 - 52.0 [facility] Comment on above: Performed By: #### C BC #### [facility] [address] [place] [address] Hemoglobin (Bld) [Mass/Vol] 15.0 g/dL Normal 13.5 - 17.5 [facility] Comment on above: Performed By: #### C BC #### [facility] [address] [place] [address] MCHC (RBC) [Mass/Vol] 32.8 g/dL Normal 32.0 - 36.0 [facility] Comment on above: Performed By: #### C BC #### [facility] [address] [place] [address] MCV (RBC) [Entitic vol] 94 fL Normal 80 - 100 [facility] Comment on above: Performed By: #### C BC #### [facility] [address] [place] [address] NUCLEATED RBC 0.0 /100 WBC Normal 0.0-0.0 [facility] [place] Comment on above: Performed By: #### C BC #### [facility] [address] [place] [address] Platelets (Bld) [#/Vol] 228 10*3/uL Normal 150 - 450 [facility] Comment on above: Performed By: #### C BC #### [facility] [address] [place] [address] RBC 4.85 x10E12/L Normal 4.50 - 5.90 [facility] Comment on above: Performed By: #### C BC #### [facility] [address] [place] [address] WBC (Bld) [#/Vol] 12.8 10*3/uL High 4.4 - 11.3 [facility] Comment on above: Performed By: #### C BC #### [facility] [address] [place] [address] Clinical Event Note-POCon Clinical Event Note-POC Clinical [...] (Resident)) Normal [facility] Daily Progress Note-Surgeryo n 02-12-2021 Daily Progress [...] yet. Objective Data: Objective Information: T PRBPSpO2 Value35.55327786/8695% Date/Time02/12 6:4902/12 6:4902/12 6:4902/12 6:4902/12 6:49 Range(35.4C - 36.4C ) (77 - 99 ) (17 - 18 ) (127 - 147 )/ (86 - 91 ) (95% - 96% ) Pain reported at 02/12 2:54: 6 = Moderate ---- Intake and Output ----- Mn/Dy/Year TimeIntakeOutputNet Feb 12, 2021 6:00 [id number] Feb 11, 2021 10:00 [id number] The Intake and Output Totals for the last 24 hours are: IntakeOutplains [facility] medical centerNet [id number] Physical Exam by System: Constitutional: Well developed, [...] Caballero) Normal [facility] Discharge Planning Nnhb1zo 0 02-12-2021 Discharge Planning Note2 Discharge Planning: Needs Prior to Discharge (ex. Home Care Orders, IV/O2 prescriptions) Follow up appointments Discharge Barriers (ex. Avoidable days, wait guardianship, pt refuse leave) None Planned Dispositionhome Discharge DestinationHome [facility] [place] of Choice Explainedyes preference Anticipated Discharge [id number] Discharge Planning 02/12/2021 0135 Discharge Plan Patient transferred from [place] [address] from PACU for diaphragm plication. Pt is A&O times 4. at 3 liters oxygen. Pt denies any medical staff coordinator use at home. 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 Pt have valuable [...] disposition: Home Potential Barriers: none ADOD: 02/12. patient relations coordinator will continue to follow for discharge planning needs. Franny Gilliam RN, Transitional Social Media Designer/TCC, pager [phone] Discharge note: 02/12/21 @ 1735: PT discharged home at this time. pts peripheral IV taken out prior to DC. pt given DC instructions. pt verbalized understanding. pt refused transport and walked downstairs with his son.---Erika stock transplant surgeon: Discharge Planning Assessment [id number]-1605 Primary Contact Name and NumberAdam [phone](1) Stated Reason for Admissiondiaphragm plication(2) Arrived FromOR (2) Lives Withparent(s)(2) Living Arrangementshouse(2) Resource/Environmental Concernsnone(2) Anticipated Transition Toquincy(2) Services Anticipated at Transitionnone(2) Discharge Documentation: Discharge/Transfer Date/[id number]-5996 17:35 Discharge Modeambulatory Discharged Accompanied Byfamily member [...] 01:31 Normal [facility] Discharge Ewjrhac8xm 021 Discharge Profile2 Discharge Orders: Anticipated Discharge Date: Anticipated Discharge Iizw51-Sfk-6762 DNAR: DNAR Status: none Call Provider If [...] hemidiaphragm plication Call to Schedule in2 weeks [place] [address] Hilario Borden [address] Phone [phone] Other Clinician Instructions: Other Instructions: Other Clinician [...] Appointments, Other Clinician Instructions, Gold Form - Ranger Aide Summary Last Updated: 12-Feb-2021 15:27 by Jesusita Faith ( (Resident)) Normal [facility] Laboratory - Chemistry and C hemistry - challengeon 02-12-2021 Anion gap [Moles/Vol] 15 mmol/L 10 - 20 JA-Sxmaeix-[address] Work Phone: Calcium [Mass/Vol] 9.5 mg/dL 8.6 - 10.6 MG-Tino raysa-G [address] Work Phone: Chloride [Moles/Vol] 102 mmol/L 98 - 107 MB-Rjhvhal-M [address] Work Phone: CO2 [Moles/Vol] 24 mmol/L 21 - 32 MG-Surger y-[facility] Work Phone: Creatinine [Mass/Vol] 0.98 mg/dL See Below AJ-Ctfrogd-F [facility] [address] Work Phone: Comment on above: Reference Range: 0.5 0 - 1.30 Glucose [Mass/Vol] 133 mg/dL above high threshold 74 - 99 CO[facility]Hiolkdg[facility] Work Phone: Potassium [Moles/Vol] 4.3 mmol/L 3.5 - 5.3 QZ-Iwquyyu[facility]D [facility] Work Phone: Sodium [Moles/Vol] 137 mmol/L 136 - 145 MG-Tino raysa-G [facility] Work Phone: Urea nitrogen [Mass/Vol] 17 mg/dL 6 - 23 OP-Nfjlzex-P [facility] Work Phone: Laboratory - Hematology and Cell countson 02-12-2021 Erythrocyte distribution width (RBC) [Ratio] 12.1 % See Below VO-Ofiaakh[facility] Work Phone: Comment on above: Reference Range: 11. 5 - 14.5 Hematocrit (Bld) [Volume fraction] 45.8 % See Below LF-Urnoozr[facility]V [facility] Work Phone: Comment on above: Reference Range: 41. 0 - 52.0 Hemoglobin (Bld) [Mass/Vol] 15.0 g/dL See Below WJ[facility]ua[facility] [place] [address] Work Phone: Comment on above: Reference Range: 13. 5 - 17.5 MCHC (RBC) [Mass/Vol] 32.8 g/dL See Below UK[facility]Fzrxypq[facility] [place] [address] Work Phone: Comment on above: Reference Range: 32. 0 - 36.0 MCV (RBC) [Entitic vol] 94 fL 80 - 100 MZ[facility]D[address]tw[facility] [facility] [place] [address] Work Phone: Platelets (Bld) [#/Vol] 228 10*3/uL 150 - 450 XS-Voeuuxo-[address] Work Phone: RBC (Bld) [#/Vol] 4.85 {x10E12/L} See Below MG -Surgery-G [address] Work Phone: Comment on above: Reference Range: 4.5 0 - 5.90 WBC (Bld) [#/Vol] 12.8 10*3/uL above high threshold 4.4 - 11.3 PK-Ipdbyvm-P [address] Work Phone: No Panel Informationon 02-12 >60 >60 WB-Roafkmd-R [address] Work Phone: Comment on above: CALCULATIONS OF LANRE MATED GFR ARE PERFORMED USING THE MDRD STUDY EQUATION FOR THE IDMS-TRACEABLE CREATININE METHODS. CLIN CHEM 2007;53:766-72 0.0 {/100_WBC} 0.0-0.0 MG[facility]gery [facility] Work Phone: Order Reconciliationon 02-12 Order [...] day Normal [facility] Patient Profile - Adult v2on 02-12-2021 Patient Profile - Adult v2 Profile: Initial Info: How to be AddressedDel(1) Spoken Language PreferredEnglish (1) Stated Reason for Admissiondiaphragm plication Patient Belongingsremains with patient Patient Belongings Remaining with Patientcash/credit card; clothing Arrived FromOR Medications Brought to Hospitalno Are you currently using the Personal Electronic Health Record or Mesosphereno (1) Wants Family/Rep Notified of Admissionyes, primary contact Notify PCPnotify PCP Informed of Patient Visiting Rightsyes General Health: Blood Avoidance/Restrictionsnone (1) Previous Transfusion Reactionno(2) Weight in kg109.8 kilogram(s)(3) Weight in edr363 pound(s) Weight Methodactual (measured) (3) Scale Typestanding (3) Height in cm182.8 centimeter(s) Height in feet6 feet(3) Height in inches0 inch(es)(3) Height Methodstated (3) BMI (kg/m2)32.858 square meter [facility] Based Care: How would you like [...] 12:02 Normal [facility] Radiologyon 02-12-2021 XR Chest Single view Normal TQ-Izyhlbv-Z [address] Work Phone: XR Chest Single view Normal NJ-Xcclgeo-V [address] Work Phone: XR Chest Single view Normal JJ-Vklyqcx-O [address] Work Phone: TH CHEST 1 VIEWon 02-12-2021 TH CHEST 1 VIEW Patient Name: RIGO JEFFERSON STUDY: CHEST 1 VIEW; 02/12/2021 4:27 pm INDICATION: chest tube removal. COMPARISON: Prior 11:07 a.m. radiograph. ACCESSION NUMBER(S): [id number] ORDERING CLINICIAN: JESUSITA FAITH FINDINGS: Left basilar [...] MD Normal [facility] TH CHEST 1 VIEW Patient Name: RIGO JEFFERSON STUDY: CHEST 1 VIEW; 02/12/2021 11:58 am INDICATION: chest tube wet seal. COMPARISON: 7:02 a.m. radiograph. ACCESSION NUMBER(S): [id number] ORDERING CLINICIAN: JESUSITA FAITH FINDINGS: Left basilar [...] Electronically signed by: МАРИНА MARCELO MD Normal [facility] CHEST 1 VIEW Patient Name: RIGO JEFFERSON STUDY: CHEST 1 VIEW; 02/12/2021 7:13 am INDICATION: POD 1 s/p diaphragm plication. COMPARISON: 02/11/2021. ACCESSION NUMBER(S): [id number] ORDERING CLINICIAN: SAW YO FINDINGS: Left basilar [...] MD Normal [facility] No Panel Informationon 02-11 [place] [address] Work Phone: Operative Reports - [facility] [place] [address] Patient Name: RIGO JEFFERSON : 1960 Date of Service: 02/11/2021 Patient Location: [place] [address] Patient Type: I Surgeon: Chuck Caballero MD Report Type: Operative Reports PREOPERATIVE DIAGNOSIS: Chronic respiratory failure, left diaphragm dysfunction. POSTOPERATIVE DIAGNOSIS: Chronic respiratory failure, left diaphragm dysfunction. OPERATION/PROCEDURE: Laparoscopic left diaphragm plication with removal of previous diaphragm pacing wires. SURGEON: Chuck Caballero MD CYCLE SPECIALIST(S): Saw Yo MD. There was no available resident. ANESTHESIA: LOCATION: [facility]. CLINICAL NOTE: This is a patient with [...] TT: 02/12/2021 12:44 PM EST DICTATION NUMBER: [id number] BRIE JOB NUMBER: [id number] CC: PT STATES NONE PCP Electronic Signatures: Chuck Caballero) (Signed on 13-Feb-2021 10:15) Authored Unsigned, Draft (SYS GENERATED) (Entered on 12-Feb-2021 12:44) Entered Last Updated: 13-Feb-2021 10:15 by Chuck Caballero) Normal [facility] Order Reconciliationon 02-11 Order Reconciliation Page 1 Admission Reconciliation Document Reconciliation Type: Admission from OR requested on behalf of Saw Yo (Physician) done by Saw Yo) Admission from OR - Reconciliation: 11-Feb-2021 18:31 by: Saw Yo) Home MedicationsEnteredLast Dose TakenReconciled with current Order Reconciliation Comment/ Additional Information Kristina 24 Hour Allergy oral tablet 1 tab(s) orally once a [id number]-[id number]-Feb-2021 AM Reviewed and Held clarithromycin 250 mg oral tablet 250 milligram(s) orally once a day [id number] Clarithromycin Tablet (BIAXIN)DOSE = 250 mg Oral Every 24 Hoursclarithromycin 250 mg oral tablet continued as the inpatient order Clarithromycin diclofenac sodium 50 mg oral delayed release tablet 1 tab(s) orally 2 times a [id number]-Xat-9734 AM Reviewed and Held oxycodone-acetaminophen 5 mg-300 mg oral tablet 1 tab(s) orally 2 times a day [id number] AM Reviewed and Held Additional Current Orders [...] ONLY Normal [facility] Patient Profile - Preop v2on 02-11-2021 Patient Profile - Preop v2 Profile: Initial Info: How to be AddressedDel(1) Spoken Language PreferredEnglish (1) Source of Informationpatient Are you currently using the Personal Electronic Health Record or KadenzeRETCno (1) Are you interested in learning more about KadenzeRETC for the management of your healthnot at this time Stated Reason for AdmissionL pulling of wires/pulling lung down Primary Contact Name and NumberAda [phone] Patient Belongingspatient educated regarding responsibility for personal items Medications Brought to Hospitalno General Health: Weight in kg109.8 kilogram(s) Weight in rey401 pound(s) Weight Methodactual (measured) Scale Typestanding Height [...] Learning Preferencesverbal instruction Cultural Considerationsnone Developmental Considerationsnone Yazidi Considerationsnone Other learner availableno [place] RiskPatient location auto qualifies him/her for HIGH RISK. Are there any cultural, spiritual, moravian practices/values/needs that are important for us to [...] 16:00 Normal [facility] Preop Checkliston 02-11-2021 Preop Checklist Preop Checklist: Preop Checklist: Arrival [id number]-0829 Arrival Time11:48 Procedure TypeL laparoscopic diaphragm plication Temperature C36.1 degrees C Temperature F96.9 degrees F Heart Rate70 beats per minute Respiratory Rate12 breath per minute Blood Pressure Hnjpnvug496 mm/Hg Blood Pressure Smmtwhwwu22 mm/Hg NPO Gikbpy81-Nwq-2254 00:00 ID Band Onyes Allergy Bandno known [...] (RN) Normal [facility] Radiologyon 02-11-2021 XR Chest Single view Please click on the link to view the study images Normal [place]uhb[place] [address] Work Phone: [facility] Surgical Pathology Depar tmenton 02-11-2021 [facility] Surgical Pathology Department Name RIGO JEFFERSON Pathologist: JACINTO MURRIETA MD Date of Procedure: 02/11/2021 Date Received: 02/12/2021 Date Reported 02/19/2021 Submitting Physician: CHUCK CABALLERO M.D. Location: [facility] Copy To/Referring/Attending: CHUCK CABALLERO M.D. Other [...] this case. Clinical History: Physician Contact Number: [phone] Fixative (A): Fresh Clinical Diagnosis History: disorders of diaphragm Specimens Submitted As: A: PACING WIRE Gross Description: Received in formalin, labeled with the patient's name and hospital number, are multiple wires with a piece of adipose tissue attached measuring 3.0 x 1.6 x 1.0 cm. A photograph is taken. The attached soft tissue is submitted entirely in one cassette. EXB exb/02/12/2021 [facility] Department of Pathology [address] [place] [address] Normal [facility] Comment on above: Performed By: #### U HCS ####[facility] Surgical Pathology [address] [place] [address] CORONAVIRUS 2019, SCREEN ASY MPTOMATICon 02-10-2021 SARS-CoV-2 (COVID-19) RNA BECCA+probe Ql (Unsp spec) Not detected Normal Not Detected [facility] Comment on above: Result Comment: . This [...] patient management decisions. Fact sheet for providers: https://www.fda.gov/media/646633/download Fact sheet for patients: https://www.fda.gov/media/570115/download This test has received FDA Emergency Use Authorization (EUA) and has been verified by [facility] ([facility]). This test is only authorized for the duration of time that circumstances exist to justify the authorization of the emergency use of in vitro diagnostic tests for the detection of SARS-CoV-2 virus and/or diagnosis of COVID-19 infection under section 564(b)(1) of the Act, 21 U.S.C. 360bbb-3(b)(1), unless the authorization is terminated or revoked sooner. [facility] is certified under CLIA-88 as qualified to perform high complexity testing. Testing is performed in the [facility] laboratories located at [address] [place] [address]. Performed By: #### C OVSC #### [place] [address] Covid 19 Resultson 06-08-202 1 SARS-CoV-2 (COVID-19) [...] You may also be contacted by the [facility] to see if any of your [...] or Naproxen (Aleve) can also be used. Okcw-vsh-fraaggs cough and cold medicines can be used according to the instructions on the package. Some dxsy-llp-cekwbiv medicines also contain acetaminophen. Make sure you [...] water are not available, use alcohol-based hand jet inspector. Avoid touching your eyes, nose, and mouth [...] included)... Normal [facility] CORONAVIRUS 2019, SCREEN ASY MPTOMATICon 02-09-2021 Lab Specimen Source Nasal, Nasopharyngeal Normal [facility] Comment on above: Performed By: #### C OVSC #### [facility] [id number] [place] [address] Coronavirus 2019 RNA by PCR, Screening Asymptomticon 02-09-2021 Coronavirus 2019 RNA by PCR, Screening Asymptomtic Not detected Normal See Below TB-Rqltpzl-T [facility] 107 Work Phone: Comment on above: [...] make patient management decisions.Fact sheet for providers: https://www.fda.gov/media/099200/downloadFact sheet for patients: https://www.fda.gov/media/486091/downloadThis test has received FDA Emergency Use Authorization (EUA) and has been verified by [facility] ([facility]). This test is only authorized for the duration of time that circumstances exist to justify the authorization of the emergency use of in vitro diagnostic tests for the detection of SARS-CoV-2 virus and/or diagnosis of COVID-19 infection under section 564(b)(1) of the Act, 21 U.S.C. 360bbb-3(b)(1), unless the authorization is terminated or revoked sooner. [facility] is certified under CLIA-88 as qualified to perform high complexity testing. Testing is performed in the [facility] laboratories located at [address] [place] [address]. BASIC METABOLIC PANELon 05-2 Anion gap [Moles/Vol] 13 mmol/L Normal 10 - 20 [facility] Comment on above: Performed By: #### B MP ####[id number] [place] [address] Calcium [Mass/Vol] 9.7 mg/dL Normal 8.6 - 10.6 [facility] Comment on above: Performed By: #### B MP ####[id number] [place] [address] Chloride [Moles/Vol] 108 mmol/L High 98 - 107 [facility] Comment on above: Performed By: #### B MP ####[id number] [place] [address] Creatinine [Mass/Vol] 1.04 mg/dL Normal 0.50 - 1.30 [facility] Comment on above: Performed By: #### B MP ####[id number] [place] [address] GFR- AM. >60 Normal >60 [facility] [place] Comment on above: Result Comment: CALC ULATIONS OF ESTIMATED GFR ARE PERFORMED USING THE MDRD STUDY EQUATION FOR THE IDMS-TRACEABLE CREATININE METHODS. CLIN CHEM 2007;53:766-72 Performed By: #### B MP ####[id number] [place] [address] GFR-NON AM. >60 Normal >60 [facility] Comment on above: Performed By: #### B MP ####[id number] [place] [address] Glucose [Mass/Vol] 91 mg/dL Normal 74 - 99 [facility] Comment on above: Performed By: #### B MP ####[id number] [place] [address] HCO3 (Bld) [Moles/Vol] 29 mmol/L Normal 21 - 32 [facility] Comment on above: Performed By: #### B MP ####[id number] [place] [address] Potassium [Moles/Vol] 4.6 mmol/L Normal 3.5 - 5.3 [facility] Comment on above: Performed By: #### B MP ####[id number] [place] [address] Sodium [Moles/Vol] 145 mmol/L Normal 136 - 145 [facility] Comment on above: Performed By: #### B MP ####[id number] [place] [address] Urea nitrogen [Mass/Vol] 13 mg/dL Normal 6 - 23 [facility] Comment on above: Performed By: #### B MP ####[id number] [place] [address] CBCon 01-27-2021 Erythrocyte distribution width (RBC) [Ratio] 12.2 % Normal 11.5 - 14.5 [facility] Comment on above: Performed By: #### C BC ####[id number] [place] [address] Hematocrit (Bld) [Volume fraction] 46.7 % Normal 41.0 - 52.0 [facility] Comment on above: Performed By: #### C BC ####[id number] [place] [address] Hemoglobin (Bld) [Mass/Vol] 15.1 g/dL Normal 13.5 - 17.5 [facility] Comment on above: Performed By: #### C BC ####[id number] [place] [address] MCHC (RBC) [Mass/Vol] 32.3 g/dL Normal 32.0 - 36.0 [facility] Comment on above: Performed By: #### C BC ####[id number] [place] [address] MCV (RBC) [Entitic vol] 96 fL Normal 80 - 100 [facility] Comment on above: Performed By: #### C BC ####[id number] [place] [address] NUCLEATED RBC 0.0 /100 WBC Normal 0.0-0.0 [facility] [place] Comment on above: Performed By: #### C BC ####[id number] [place] [address] Platelets (Bld) [#/Vol] 209 10*3/uL Normal 150 - 450 [facility] Comment on above: Performed By: #### C BC ####[id number] [place] [address] RBC 4.85 x10E12/L Normal 4.50 - 5.90 [facility] Comment on above: Performed By: #### C BC ####[id number] [place] [address] WBC (Bld) [#/Vol] 7.2 10*3/uL Normal 4.4 - 11.3 [facility] Comment on above: Performed By: #### C BC ####[id number] [place] [address] Follow Up (General Surgery)o n 01-27-2021 Follow [...] EKG; Status:Hold For - Scheduling; Requested for:27Jan2021; Perform:[facility] [place] 1800; Due:27Apr2021;Ordered; For:Diaphragm dysfunction, [...] 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 He was turning the device off 1-2 [...] MG Oral Tablet Vitals Vital Signs Recorded: 59Dru0111 11:12AM Exuomrgkogj40.1 F Heart Rate77 Cutfurox648 Swoanlmbl78 Dwceac382 lb BMI Smmlfnpneu61.64 kg/m2 BSA Calculated2.33 Tobacco Useb) No Physical [...] the r (more content not included)... Normal Convergin No Panel Informationon 01-27 http://Fixit [email or web address] 1:8080 /[email or web address].dll?R etrieveTestByDateTime?Sherita jspCI=[id number]&Date=&Time=13%3a24%3a34%3a 00&TestType=ECG&Site=1&Out putType=PDF&Ext=PDF EZ-Skumybc-[address] Work Phone: Normal sinus rhythm MG-Ramos rgery-[address] Work Phone: Normal ZT-Rswfqfq-[address] Work Phone: [phone] 1 RR-Jlkaqaq-[address] Work Phone: [phone] 1 IV-Rnclhha-[address] Work Phone: 205 1 MS-Uhhuttl-[address] Work Phone: 147 1 XR-Jxtttav-[address] Work Phone: 224 1 DJ-Fudzlar-[address] Work Phone: 11 1 ZI-Ejhjahm-[address] Work Phone: 69 1 YN-Asduqaa-[address] Work Phone: 26 1 GH-Saneuth-[address] Work Phone: 40 1 GW-Nyndhrx-[address] Work Phone: [phone] 1 JW-Kektdoi-[address] Work Phone: 390 1 RQ-Udqrulb-[address] Work Phone: 92 1 PG-Qlwfpah-[address] Work Phone: 154 1 SC-Fisdszl-[address] Work Phone: 70 1 MB-Fudkqcw-[address] Work Phone: Radiologyon 01-27-2021 XR Chest 2 Views Normal MG-Surge ry-[address] Work Phone: TH CHEST 2 VIEW PA AND LATon 01-27-2021 TH CHEST 2 VIEW PA AND LAT Patient Name: RIGO JEFFERSON STUDY: TH CHEST 2 VIEW PA AND LAT; 01/27/2021 11:00 am INDICATION: chronic hypoventilation. COMPARISON: Chest radiograph 04/03/2019 ACCESSION NUMBER(S): [id number] ORDERING CLINICIAN: CHUCK CABALLERO FINDINGS: Inspiratory and [...] MD Normal [facility] Tobacco Screening.on 021 Tobacco use status CP b) No RC-Wwjtrrk-[address] Work Phone: Tobacco Screening. b) No MG-Tino raysa-[facility] [address] Work Phone: Otheron 04-03-2019 XR Chest 2 views Interpreted by: ISAK04/03/19 14:06MRN: [id number] Name: RIGO JEFFERSON STUDY:CHEST 2 VIEW PA [...] Electronically signed by: ISAK 04/03/19 14:06 Normal OY-Syuacvq-[address] Work Phone: Vital Signs Date Time Vital Sign Value Performing Clinician Facility 02-12-2021 14:10-0400 SaO2% (BldA) [Mass fraction] 95 % No Pcp Required [facility] 02-12-2021 14:00-0400 Body temperature 97.16 [degF] No Pcp Required [facility] 02-12-2021 14:00-0400 Diastolic blood pressure 83 mm[Hg] No Pcp Required [facility] 02-12-2021 14:00-0400 Heart rate 81 /min No Pcp Required [facility] 02-12-2021 14:00-0400 Respiratory rate 18 /min No Pcp Required [facility] 02-12-2021 14:00-0400 Systolic blood pressure 131 mm[Hg] No Pcp Required [facility] 02-12-2021 03:31-0400 Body height 182.8 cm No Pcp Required [facility] 02-12-2021 03:31-0400 Body weight 109.8 kg No Pcp Required [facility] 01-27-2021 11:12-0400 Body mass index (BMI) [Ratio] 33.64 kg/m2 Chuck Caballero MD Work Phone: PE-[address] Work Phone: 01-27-2021 11:12-0400 Body surface area Derived from formula 2.33 m2 Chuck Caballero MD Work Phone: IP-[address] Work Phone: 01-27-2021 11:12-0400 Body temperature 96.1 [degF] Chuck Caballero MD Work Phone: HC-Tt[address]xa[address] Work Phone: 01-27-2021 11:12-0400 Body weight 112.49 kg Chuck Caballero MD Work Phone: BT-Qyvqgwj-[address] Work Phone: 01-27-2021 11:12-0400 Diastolic blood pressure 85 mm[Hg] Chuck Caballero MD Work Phone: TK-[address] Work Phone: 01-27-2021 11:12-0400 Heart rate 77 /min Chuck Caballero MD Work Phone: PZ-Gqsdphr-[address] Work Phone: 01-27-2021 11:12-0400 Systolic blood pressure 157 mm[Hg] Chuck Caballero MD Work Phone: NP-Oafvojq-[address] Work Phone: 04-03-2019 15:37-0400 BMI (Body Mass Index) 30.11 kg/m2 Chandan Travon MG-Surgery -[place] [address]99 Work Phone: 04-03-2019 15:37-0400 Body Temperature 97.9 [degF] Chandan Travon CW-Hmbcjnp-[address] Work Phone: 04-03-2019 15:37-0400 Body weight 100.7 kg Chandan Travon NF-Qsvfudp-X[address]l [address] 2099 Work Phone: 04-03-2019 15:37-0400 BP Diastolic 74 mm[Hg] Chandan Idamay PE-Lfqzrpp-Xmolz [address] 2099 Work Phone: 04-03-2019 15:37-0400 BP Systolic 121 mm[Hg] Chandan Travon LF-Iqtbeko-Pqcvy [address] 2099 Work Phone: 04-03-2019 15:37-0400 BSA (Body Surface Area) 2.23 m2 Chandan Idamay KH-Nshfxgh-Kgghixh 2099 Work Phone: 04-03-2019 15:37-0400 Height 182.88 cm Chandan Idamay TA-Fzddxed-Gcldt [address] 2099 Work Phone: 04-03-2019 15:37-0400 Pulse (Heart Rate) 58 /min Chandan Cool VL-Zsdmejb-[address] Work Phone: Encounters Encounter Date [...] related to original px No PCP None QC-[address]ekg[address] Work Phone: Start: 02-20-2021 Chart Update No PCP None MG-Surgery -[address] Work Phone: Start: 02-11-2021 End: 02-12-2021 Evaluation and management of inpatient Chuck Caballero [facility] [address] [facility] Rm 5511 01 Start: 01-27-2021 Chart Update Chuck Caballero MD Work Phone: GQ-Avignjv-[address] Work Phone: Start: 04-03-2019 Patient encounter procedure Chandan Cool MJ-Hybiunt-[address]100 Work Phone: Start: 01-12-2018 Patient encounter procedure Chandan Travon IG-Fltaswe-[address] Work Phone: Start: 11-28-2017 Patient encounter procedure Chandan Matsonmo MI-Wvngcxw-[address] Work Phone: Start: 11-28-2017 Patient encounter procedure Chandan Matsonmo HE-Agxmnoh-[address] Work Phone: Procedures Date Procedure [...] Yo Intent [facility] Payers Date Payer Category Payer Unknown [id number] 2018 Unknown 1960 Medicare [id number] 1960 Unknown [id number] 2.16.84 0.1.815851.3.579.2.593 1959 Unknown [id number] 2.16.84 0.1.393744.3.579.2.593 1959 Unknown [id number] 2.16.84 0.1.756866.3.579.2.593 1959 Unknown [id number] 2.16.84 0.1.775266.3.579.2.593 1959 Unknown [id number] 2.16.84 0.1.800733.3.579.2.593 1959 Unknown [id number] 2.16.84 0.1.263109.3.579.2.593 1959 Unknown [id number] 2.16.84 0.1.277972.3.579.2.593 1959 Unknown [id number] 2.16.84 0.1.599526.3.579.2.593 1959 Unknown [id number] 2.16.84 0.1.169314.3.579.2.593 1959 Unknown [id number] 2.16.84 0.1.126354.3.579.2.593 1959 Unknown [id number] 2.16.84 0.1.884585.3.579.2.1259 1959 Unknown [id number] 2.16.84 0.1.377146.3.579.2.1259 1959 Unknown [id number] 2.16.84 0.1.614725.3.579.2.1259 1959 Unknown [id number] 2.16.84 0.1.401716.3.579.2.1259 1959 Unknown [id number] 2.16.84 0.1.359160.3.579.2.1259 1959 Unknown [id number] 2.16.840 .1.802755.3.579.2.1259 Social History Date Type Detail Facility Former smoker Former smoker FC-Nlrqwwt-[address] Work Phone: Tobacco smoking consumption unknown [facility] NEGATED: Highlighted row - - MG- Surgery-Chase Villatoro 107 Work Phone: Functional Status Date Assessment Result Facility Functional observable [facility] NEGATED: Highlighted row Functional performance Functional status health issues are not documented Disease MP-Iezigcs-[address] Work Phone: Mental Status Date Assessment Result Facility 02-12-2021 Cognitive functi ons [id number] [facility] NEGATED: Highlighted row Cognitive function [Interpretation] Cognitive status health issues are not documented Disease KK-Usfdxpb-[address] Work Phone: Clinical Notes 02-11-2021 [...] our patients to inform us about any avvt-deh-trsfqwd medications or herbal remedies/nutritional supplements/alternative remedies. 2. [...] options with their primary care provider. [facility] 11-25-2022 Note CONSULTATION CONSULTATION DATE: 11/25/2022 [...] of his shoulders, bilaterally, without contrast. [facility] 09-03-2022 Note CONSULTATION CONSULTATION DATE: 09/03/2022 [...] three months' time, unless otherwise indicated. [facility] 06-01-2022 Note CONSULTATION CONSULTATION DATE: 06/01/2022 [...] b.i.d. basis. The patient also uses the VicTubis heat rub to his cervical spine. The [...] three months. CC: Shaikh Helena M.D. [facility] 05-18-2022 Note CONSULTATION CONSULTATION DATE: 05/18/2022 [...] to proceed. CC: Shaikh Helena M.D. [facility] 05-18-2022 Note CONSULTATION PROCEDURE DATE: 05/18/2022 [...] be followed up in the office. [facility] 04-29-2022 Note CONSULTATION CONSULTATION DATE: 04/29/2022 [...] for his injections with Dr. Duncan. [facility] 01-27-2022 Note CONSULTATION CONSULTATION DATE: 01/27/2022 [...] in three month's time, unless otherwise indicated. [facility] Signed and Approved by: RAVINDER ANDERSEN . 02/04/2022 16:12:00 [facility] 02-12-2021 Note Send Summary: Discharge Summary [...] at Discharge: .Home Vital Signs: T PRBPSpO2 Value36.02545637/8395% Date/Time02/12 12: 12: 12: 12: 12:10 Range(35.4C - 36.4C ) (77 - 99 ) (17 - 18 ) (127 - 147 )/ (83 - 91 ) (92% - 96% ) As of 12-Feb-2021 12:10:00, patient is on 2 L/min of oxygen Date: Weight/Scale Type:Height: 12-Feb-2021 01:04711.8 kg / tjvmyelx657.8 cm Hospital Course: 60 yo male with [...] Call to Schedule in: 2 weeks Location: [address] [place] [address] Discharge Medications: Home Medication clarithromycin 250 mg [...] Chuck Caballero) [facility] 02-11-2021 Note Post Operative Note: PreOp Diagnosis: diaphragm paralysis Post-Procedure Diagnosis: same Procedure: 1. laparoscopic L diaphragm plication 2. removal of bilateral diaphragm pacing wires 3. L pigtail chest tube placement Surgeon: Dr Chuck Caballero Resident/Fellow/Other Real Estate Office Supervisor: Dr Saw Yo Anesthesia: GETA Estimated [...] Chuck Caballero) [facility] 02-11-2021 Note History & Physical R eviewed: [...] Chuck Caballero) [facility] Chief complaint Narrative - Reported An interactive audio and video telecommunication system which permits real time communications between the patient (at the originating site) and provider (at the distant site) was utilized to provide this telehealth service.Post op HW-[address] Work Phone: Evaluation note Constitutional: Well developed, awake/alert/oriented x3, no distress, alert and cooperativeSkin: warm and dryEyes: PERRL, EOMI, clear scleraENMT: MMMHead/Neck: NCATRespiratory/Thorax: good chest expansion, thorax symmetricCardiovascular: RRRGastrointestinal: Nondistended, soft, non-tender, no rebound tenderness or guardingMusculoskeletal: moves all extremitiesExtremities: well perfusedNeurological: grossly intactPsychological: Appropriate mood and behavior [facility] History of Present illness Narrative He is [...] not he wants to follow-up with a fruit preserver in our system. ES-[address] Work Phone: Hospital Discharge instructions [...] weekFollow Up Appointment 2:Physician/Dept/Service: Dr. Caballero - [facility] for Referral: hospital follow-up / diaphragm pacer removal, hemidiaphragm plicationLocation: [address], [place], [place] Number: [phone] Form - Other Clinicians:Other Clinician Instructions: Please [...] your care. [facility] Family History No Family History Records Found [...] DATE CREATED AUTHOR AUTHOR'S ORGANIZ ATION 04/08/2021 [facility] DATE CREATED AUTHOR AUTHOR'S ORGANIZ ATION 12/31/2022 [facility]ital DATE CREATED AUTHOR AUTHOR'S ORGANIZ ATION 01/31/2024 [facility] FOR RECORDS PERTAINING TO PATIENTS WHO ARE [...] BE BASED ON THE PRIMARY CLINICAL RECORDS. [facility] [employer] [facility]. provides no warranty or guarantee of the accuracy or completeness of information in this document.
== END 2024-04-10 11:39 | disposition home or self-care (01) ==
LOC: PM 11:38
PROVIDERS: PCP Internal Medicine; Visit Provider Anesthesiology Pain Medicine
DX: M48.061 Spinal stenosis, lumbar region without neurogenic claudication (principal); M54.16 Radiculopathy, lumbar region; G89.29 Other chronic pain
CPT/HCPCS: G0463

== ENCOUNTER 2024-04-24 08:23 | Day surgery (SDC) | payer OTHER, SELFPAY ==
--- OUTSIDE RECORDS SUMMARY | 2024-04-24 08:28 | XMS_ITS | CCD ---
Author Organization [facility] [place] [facility] Team Providers Care Candlemaker Name Role Phone Chandan Cool Unavailable Unavailable Sid Ac Unavailable Unavailable Required, No Pcp Unavailable Unavailable Chuck Caballero Unavailable None, No PCP Unavailable Unavailable [facility], [facility] Primary Care Unavailable EMILY, DR RADHA Gaxiola Consulting Unavailable DUNCAN ., DR LLUVIA Sheldon Attending Unavailable DUNCAN ., DR LLUVIA Sheldon Admitting Unavailable DUNCAN ., DR LLUVIA Sheldon Consulting [facility] Primary Care Unavailable DUNCAN ., DR LLUVIA Sheldon Attending Unavailable DUNCAN ., DR LLUVIA Sheldon Consulting Unavailable DUNCAN ., DR LLUVIA Sheldon Admitting [facility]available [facility] Primary Care Unavailable DUNCAN ., DR LLUVIA Sheldon Attending Unavailable DUNCAN ., DR LLUVIA Sheldon Consulting Unavailable DUNCAN ., DR LLUVIA Sheldon Admitting Unavailable [facility] Primary Care Unavailable ANDERSEN .RAVINDER Consulting Unavailable DUNCAN ., DR LLUVIA Sheldon Admitting Unavailable DUNCAN ., DR LLUVIA Sheldon Attending Unavailable [facility] Primary Care Unavailable ANDERSEN .RAVINDER Consulting Unavailable DUNCAN ., DR LLUVIA Sheldon Admitting Unavailable DUNCAN ., DR LLUVIA Sheldon Attending Unavailable [facility] Primary Care Unavailable LAKSHMIPATHY ., NARENDRANATH Attending Nadira vailable LAKSHMIPATHY ., NARENDRANATH Admitting Nadira vailable [facility], [facility] Primary Care Unavailable LAKSHMIPATHY ., NARENDRANATH Attending Nadira vailable LAKSHMIPATHY ., NARENDRANATH Consulting Nadira vailable LAKSHMIPATHY ., NARENDRANATH Admitting Nadira vailable [facility], [facility] Primary Care Unavailable LAKSHMIPATHY ., [...] MCG/ACT Inhalation Aerosol Solution Refills: 0 Travon SALGUERONNixonNANCYChandan Start : 28-Nov-2017 Active lisinopril 20 mg [...] DOMINGA FLYNN Date: 2022-12-08 10:35 Normal [facility] XR CSPINE OBL FLEX_EXTon XR CSPINE [...] RADHA DIAZ Date: 2022-05-31 20:33 Normal [facility] Post Op (General Surgery)on 04-02-2021 Post [...] not he wants to follow-up with a commercial agent in our system. Provider Impressions He is [...] not he wants to follow-up with a commercial agent in our system. Chief Complaint An interactive [...] not he wants to follow-up with a commercial agent in our system. Active Problems COPD (chronic [...] MG Oral Tablet Results/Data Xray Chest 1 [id number] 04:27PMJesusita Faith Test NameResultFlagReference Xray Chest 1 View(Report) FINAL REPORT Interpreted by: МАРИНА MARCELO MD 02/12/21 16:52 Patient Name: RIGO JEFFERSON STUDY: CHEST 1 VIEW; 02/12/2021 4:27 pm INDICATION: chest tube removal. COMPARISON: Prior 11:07 a.m. radiograph. ACCESSION NUMBER(S): [id number] ORDERING CLINICIAN: JESUSITA FAITH FINDINGS: Left basilar [...] Apr 02 2021 5:38PM EST (Author) Normal [employer] Admission Risk Screen - Adul ton 02-12-2021 Admission Risk Screen - Adult Allergies: Allergies: No Known Allergies: Patient Verification: New W ID Band Applied in my Departmentno Type of ID Patient is WearingW wristband, but not applied here Patient Transferred from Other Facility ([facility], [facility],etc)no Patient Identity Verified Bypatient ID Band FULL [...] AlertFor Ebola-like Symptoms: Isolate Patient and Notify Provider/Industrial Cook For Contact: Notify Provider/Industrial Cook Advance Directive: Advance Directive/DNRno (1) Advance Directive [...] Learning Preferencesverbal instruction Cultural Considerationsnone Developmental Considerationsnone Sikhism Considerationsnone Learning Assessment (Other Learner): Other learner availableno Depression Screen: During the past month, have you often been bothered by feeling down, depressed or hopelessno (1) During the past month, have you often had little interest or pleasure in doing thingsno (1) Have you had any thoughts of harming anyone elseno (1) [place] Suicide: Risk Screen Not Applicable/Able to Answerable to be screened In the Past Month: Have you wished you were or could go to sleep and not wake upno(1) In the Past Month: Have you had any actual thoughts of killing yourself no(1) Lifetime: Have you ever done, started to do, or prepared to do anything to end your lifeno(1) [place] Suicide Risknegative Adult Nutrition Screen: Have you [...] (nonverbal)verbalization (more content not included)... Normal [facility] BASIC METABOLIC PANELon 06- 0-2020 Anion gap [Moles/Vol] 15 mmol/L Normal 10 - 20 [facility] Comment on above: Performed By: #### B MP #### [facility] [address] [place] [address] Calcium [Mass/Vol] 9.5 mg/dL Normal 8.6 - 10.6 [facility] Comment on above: Performed By: #### B MP #### [facility] [address] [place] [address] Chloride [Moles/Vol] 102 mmol/L Normal 98 - 107 [facility] Comment on above: Performed By: #### B MP #### [facility] [address] [place] [address] Creatinine [Mass/Vol] 0.98 mg/dL Normal 0.50 - 1.30 [facility] Comment on above: Performed By: #### B MP #### [facility] [address] [place] [address] GFR- AM. >60 Normal >60 [facility] Comment on above: Result Comment: CALC ULATIONS OF ESTIMATED GFR ARE PERFORMED USING THE MDRD STUDY EQUATION FOR THE IDMS-TRACEABLE CREATININE METHODS. CLIN CHEM 2007;53:766-72 Performed By: #### B MP #### [facility] [address] [place] [address] GFR-NON AM. >60 Normal >60 [facility] Comment on above: Performed By: #### B MP #### [facility] [address] [place] [address] Glucose [Mass/Vol] 133 mg/dL High 74 - 99 [facility] Comment on above: Performed By: #### B MP #### [facility] [address] [place] [address] HCO3 (Bld) [Moles/Vol] 24 mmol/L Normal 21 - 32 [facility] Comment on above: Performed By: #### B MP #### [facility] [address] [place] [address] Potassium [Moles/Vol] 4.3 mmol/L Normal 3.5 - 5.3 [facility] Comment on above: Performed By: #### B MP #### [facility] [address] [place] [address] Sodium [Moles/Vol] 137 mmol/L Normal 136 - 145 [facility] Comment on above: Performed By: #### B MP #### [facility] [address] [place] [address] Urea nitrogen [Mass/Vol] 17 mg/dL Normal 6 - 23 [facility] Comment on above: Performed By: #### B MP #### [facility] [address] [place] [address] CBCon 02-12-2021 Erythrocyte distribution width (RBC) [Ratio] 12.1 % Normal 11.5 - 14.5 [facility] Comment on above: Performed By: #### C BC #### [facility] [address] [place] [address] Hematocrit (Bld) [Volume fraction] 45.8 % Normal 41.0 - 52.0 [facility] Comment on above: Performed By: #### C BC #### [facility] [address] [place] [address] Hemoglobin (Bld) [Mass/Vol] 15.0 g/dL Normal 13.5 - 17.5 [facility] Comment on above: Performed By: #### C BC #### [facility] [address] [place] [address] MCHC (RBC) [Mass/Vol] 32.8 g/dL Normal 32.0 - 36.0 [facility] Comment on above: Performed By: #### C BC #### [facility] [address] [place] [address] MCV (RBC) [Entitic vol] 94 fL Normal 80 - 100 [facility] Comment on above: Performed By: #### C BC #### [facility] [address] [place] [address] NUCLEATED RBC 0.0 /100 WBC Normal 0.0-0.0 [facility] Comment on above: Performed By: #### C BC #### [facility] [address] [place] [address] Platelets (Bld) [#/Vol] 228 10*3/uL Normal 150 - 450 [facility] Comment on above: Performed By: #### C BC #### [facility] [address] [place] [address] RBC 4.85 x10E12/L Normal 4.50 - 5.90 [facility] Comment on above: Performed By: #### C BC #### [facility] [address] [place] [address] WBC (Bld) [#/Vol] 12.8 10*3/uL High 4.4 - 11.3 [facility] Comment on above: Performed By: #### C BC #### [facility] [address] [place] [address] Clinical Event Note-POCon Clinical Event Note-POC Clinical [...] by Nataliia Ferris ( (Resident)) Normal [facility] Daily Progress Note-Surgeryo n 02-12-2021 Daily Progress [...] yet. Objective Data: Objective Information: T PRBPSpO2 Value35.95922051/8695% Date/Time02/12 6:4902/12 6:4902/12 6:4902/12 6:4902/12 6:49 Range(35.4C - 36.4C ) (77 - 99 ) (17 - 18 ) (127 - 147 )/ (86 - 91 ) (95% - 96% ) Pain reported at 02/12 2:54: 6 = Moderate ---- Intake and Output ----- Mn/Dy/Year TimeIntakeOutputNet Feb 12, 2021 6:00 [id number] Feb 11, 2021 10:00 [id number] The Intake and Output Totals for the last 24 hours are: IntakeOutrustNet [id number] Physical Exam by System: Constitutional: Well developed, [...] 13-Feb-2021 10:13 by Chuck Caballero) Normal [facility] Discharge Planning Datp5pt 0 02-12-2021 Discharge Planning Note2 Discharge Planning: Needs Prior to Discharge (ex. Home Care Orders, IV/O2 prescriptions) Follow up appointments Discharge Barriers (ex. Avoidable days, wait guardianship, pt refuse leave) None Planned Dispositionhome Discharge DestinationHome [facility] [place] of Choice Explainedyes preference Anticipated Discharge [id number] Discharge Planning 02/12/2021 0135 Discharge Plan Patient transferred from [place] [address] from PACU for diaphragm plication. Pt is A&O times 4. at 3 liters oxygen. Pt denies any medical imaging technician use at home. Pt emergency contact agent Sahil Joe- son. Pt have valuable belongings [...] disposition: Home Potential Barriers: none ADOD: 02/12. recruitment coordinator will continue to follow for discharge planning needs. Franny Gilliam RN, Transitional Sales Attendant/TCC, pager [phone] Discharge note: 02/12/21 @ 1735: PT discharged home at this time. pts peripheral IV taken out prior to DC. pt given DC instructions. pt verbalized understanding. pt refused transport and walked downstairs with his son.---Erika stock skiing teacher: Discharge Planning Assessment [id number] Primary Contact Name and NumberAdam [phone](1) Stated Reason for Admissiondiaphragm plication(2) Arrived FromOR (2) Lives Withparent(s)(2) Living Arrangementshouse(2) Resource/Environmental Concernsnone(2) Anticipated Transition [place](2) Services Anticipated at Transitionnone(2) Discharge Documentation: Discharge/Transfer Date/Ulhi78-Rwa-3216 17:35 Discharge Modeambulatory Discharged Accompanied Byfamily member [...] - Adult v2 12-Feb-2021 01:31 Normal [facility] Discharge [id number] 021 Discharge Profile2 Discharge Orders: Anticipated Discharge Date: Anticipated Discharge [id number] DNAR: DNAR Status: none Call Provider If [...] hemidiaphragm plication Call to Schedule in2 weeks [place] [address] Hilario Borden [address] Phone [phone] Other Clinician Instructions: Other Instructions: Other Clinician [...] Appointments, Other Clinician Instructions, Gold Form - Client Service Executive Summary Last Updated: 12-Feb-2021 15:27 by Jesusita Faith ( (Resident)) Normal [facility] Laboratory - Chemistry and C hemistry - challengeon 02-12-2021 Anion gap [Moles/Vol] 15 mmol/L 10 - 20 GH-Cpjfwnv-F [address] Work Phone: Calcium [Mass/Vol] 9.5 mg/dL 8.6 - 10.6 MG-Tino raysa-G [address] Work Phone: Chloride [Moles/Vol] 102 mmol/L 98 - 107 GK-Himxjqi-[address] Work Phone: CO2 [Moles/Vol] 24 mmol/L 21 - 32 MG-Surger y-[facility] [address] Work Phone: Creatinine [Mass/Vol] 0.98 mg/dL See Below WQ-Kzribum-B [facility] [address] Work Phone: Comment on above: Reference Range: 0.5 0 - 1.30 Glucose [Mass/Vol] 133 mg/dL above high threshold 74 - 99 TV-Woqjbtn-P [facility] Work Phone: Potassium [Moles/Vol] 4.3 mmol/L 3.5 - 5.3 AB-Mwoohvi-A [facility] Work Phone: Sodium [Moles/Vol] 137 mmol/L 136 - 145 MG-Tino raysa-G [facility] Work Phone: Urea nitrogen [Mass/Vol] 17 mg/dL 6 - 23 LH-Pauzsxv-U [facility] Work Phone: Laboratory - Hematology and Cell countson 02-12-2021 Erythrocyte distribution width (RBC) [Ratio] 12.1 % See Below DO-Ocesqol-O [facility] Work Phone: Comment on above: Reference Range: 11. 5 - 14.5 Hematocrit (Bld) [Volume fraction] 45.8 % See Below DU-Mqqzdce-H [facility] Work Phone: Comment on above: Reference Range: 41. 0 - 52.0 Hemoglobin (Bld) [Mass/Vol] 15.0 g/dL See Below JV-Pxiyghn-T [facility] [place] [address] Work Phone: Comment on above: Reference Range: 13. 5 - 17.5 MCHC (RBC) [Mass/Vol] 32.8 g/dL See Below IV-Wzptjld-T [facility] [place] [address] Work Phone: Comment on above: Reference Range: 32. 0 - 36.0 MCV (RBC) [Entitic vol] 94 fL 80 - 100 JE-Odczaoj-Q [facility] [place] [address] Work Phone: Platelets (Bld) [#/Vol] 228 10*3/uL 150 - 450 AJ-Dhmuccn-O [address] Work Phone: RBC (Bld) [#/Vol] 4.85 {x10E12/L} See Below MG -Surgery-G [address] Work Phone: Comment on above: Reference Range: 4.5 0 - 5.90 WBC (Bld) [#/Vol] 12.8 10*3/uL above high threshold 4.4 - 11.3 KN-Pyxvxpg-S [address] Work Phone: No Panel Informationon 02-12 >60 >60 [place]-Rwzombf-[address] Work Phone: Comment on above: CALCULATIONS OF LANRE MATED GFR ARE PERFORMED USING THE MDRD STUDY EQUATION FOR THE IDMS-TRACEABLE CREATININE METHODS. CLIN CHEM 2007;53:766-72 0.0 {/100_WBC} 0.0-0.0 MG-Surgery -G [facility] Work Phone: Order Reconciliationon 02-12 Order [...] orally 2 times a day Normal [facility] Patient Profile - Adult v2on 02-12-2021 Patient Profile - Adult v2 Profile: Initial Info: How to be AddressedDel(1) Spoken Language PreferredEnglish (1) Stated Reason for Admissiondiaphragm plication Patient Belongingsremains with patient Patient Belongings Remaining with Patientcash/credit card; clothing Arrived FromOR Medications Brought to Hospitalno Are you currently using the Personal Electronic Health Record or Application Expertsno (1) Wants Family/Rep Notified of Admissionyes, primary contact Notify PCPnotify PCP Informed of Patient Visiting Rightsyes General Health: Blood Avoidance/Restrictionsnone (1) Previous Transfusion Reactionno(2) Weight in kg109.8 kilogram(s)(3) Weight in biq165 pound(s) Weight Methodactual (measured) (3) Scale Typestanding (3) Height in cm182.8 centimeter(s) Height in feet6 feet(3) Height in inches0 inch(es)(3) Height Methodstated (3) BMI (kg/m2)32.858 square meter [facility] Based Care: How would you like to [...] 1. Vital Signs 11-Feb-2021 12:02 Normal [facility] Radiologyon 02-12-2021 XR Chest Single view Normal OC-Ijbpppu-[address] Work Phone: XR Chest Single view Normal GE-Srxjtds-[address] Work Phone: XR Chest Single view Normal AS-Yvghbtq-[address] Work Phone: TH CHEST 1 VIEWon 02-12-2021 TH CHEST 1 VIEW Patient Name: RIGO JEFFERSON STUDY: CHEST 1 VIEW; 02/12/2021 4:27 pm INDICATION: chest tube removal. COMPARISON: Prior 11:07 a.m. radiograph. ACCESSION NUMBER(S): [id number] ORDERING CLINICIAN: JESUSITA FAITH FINDINGS: Left basilar [...] signed by: МАРИНА MARCELO MD Normal [facility] TH CHEST 1 VIEW Patient Name: RIGO JEFFERSON STUDY: CHEST 1 VIEW; 02/12/2021 11:58 am INDICATION: chest tube wet seal. COMPARISON: 7:02 a.m. radiograph. ACCESSION NUMBER(S): [id number] ORDERING CLINICIAN: JESUSITA FAITH FINDINGS: Left basilar [...] Electronically signed by: МАРИНА MARCELO MD Normal [facility] CHEST 1 VIEW Patient Name: RIGO JEFFERSON STUDY: CHEST 1 VIEW; 02/12/2021 7:13 am INDICATION: POD 1 s/p diaphragm plication. COMPARISON: 02/11/2021. ACCESSION NUMBER(S): [id number] ORDERING CLINICIAN: SAW YO FINDINGS: Left basilar [...] signed by: МАРИНА MARCELO MD Normal [facility] No Panel Informationon 02-11 [place] [address] Work Phone: Operative Reports - [facility] [place] [address] Patient Name: RIGO JEFFERSON : 1960 Date of Service: 02/11/2021 Patient Location: [place] [address] Patient Type: I Surgeon: Chuck Caballero MD Report Type: Operative Reports PREOPERATIVE DIAGNOSIS: Chronic respiratory failure, left diaphragm dysfunction. POSTOPERATIVE DIAGNOSIS: Chronic respiratory failure, left diaphragm dysfunction. OPERATION/PROCEDURE: Laparoscopic left diaphragm plication with removal of previous diaphragm pacing wires. SURGEON: Chuck Caballero MD VICE PRESIDENT FINANCIAL(S): Saw Yo MD. There was no available resident. ANESTHESIA: LOCATION: [facility]. CLINICAL NOTE: This is a patient [...] TT: 02/12/2021 12:44 PM EST DICTATION NUMBER: [id number] BRIE JOB NUMBER: [id number] CC: PT STATES NONE PCP Electronic Signatures: Chuck Caballero) (Signed on 13-Feb-2021 10:15) Authored Unsigned, Draft (SYS GENERATED) (Entered on 12-Feb-2021 12:44) Entered Last Updated: 13-Feb-2021 10:15 by Chuck Caballero) Normal [facility] Order Reconciliationon 02-11 Order Reconciliation Page 1 Admission Reconciliation Document Reconciliation Type: Admission from OR requested on behalf of Saw Yo (Physician) done by Saw Yo) Admission from OR - Reconciliation: 11-Feb-2021 18:31 by: Saw Yo) Home MedicationsEnteredLast Dose TakenReconciled with current Order Reconciliation Comment/ Additional Information Kristina 24 Hour Allergy oral tablet 1 tab(s) orally once a [id number]-[id number]-Feb-2021 AM Reviewed and Held clarithromycin 250 mg oral tablet 250 milligram(s) orally once a day [id number] Clarithromycin Tablet (BIAXIN)DOSE = 250 mg Oral Every 24 Hoursclarithromycin 250 mg oral tablet continued as the inpatient order Clarithromycin diclofenac sodium 50 mg oral delayed release tablet 1 tab(s) orally 2 times a are80-Laf-912591-Spd-6756 AM Reviewed and Held oxycodone-acetaminophen 5 mg-300 mg oral tablet 1 tab(s) orally 2 times a day [id number] AM Reviewed and Held Additional Current Orders [...] minute(s)Clinician Notes: Carlota-operative order ONLY Normal [facility] Patient Profile - Preop v2on 02-11-2021 Patient Profile - Preop v2 Profile: Initial Info: How to be AddressedDel(1) Spoken Language PreferredEnglish (1) Source of Informationpatient Are you currently using the Personal Electronic Health Record or PostifyMovetisno (1) Are you interested in learning more about Post[employer]Movetis for the management of your healthnot at this time Stated Reason for AdmissionL pulling of wires/pulling lung down Primary Contact Name and NumberAda [phone] Patient Belongingspatient educated regarding responsibility for personal items Medications Brought to Hospitalno General Health: Weight in kg109.8 kilogram(s) Weight in ggh036 pound(s) Weight Methodactual (measured) Scale Typestanding Height [...] Learning Preferencesverbal instruction Cultural Considerationsnone Developmental Considerationsnone Sikhism Considerationsnone Other learner availableno Falls RiskPatient location [...] - Adult v2 12-Dec-2017 16:00 Normal [facility] Preop Checkliston 02-11-2021 Preop Checklist Preop Checklist: Preop Checklist: Arrival [id number]-8721 Arrival Time11:48 Procedure TypeL laparoscopic diaphragm plication Temperature C36.1 degrees C Temperature F96.9 degrees F Heart Rate70 beats per minute Respiratory Rate12 breath per minute Blood Pressure Reypaadc040 mm/Hg Blood Pressure Ufnaixldb55 mm/Hg NPO Hpfhle58-Jia-4477 00:00 ID Band Onyes Allergy Bandno known [...] 12:02 by Jany Ann (RN) Normal [facility] Radiologyon 02-11-2021 XR Chest Single view Please click on the link to view the study images Normal [place]so[place] [address] Work Phone: [facility] Pathology Depar tmenton 02-11-2021 [facility] Department Name RIGO JEFFERSON Pathologist: JACINTO UMRRIETA MD Date of Procedure: 02/11/2021 Date Received: 02/12/2021 Date Reported 02/19/2021 Submitting Physician: CHUCK CABALLERO M.D. Location: [facility] Copy To/Referring/Attending: CHUCK CABALLERO M.D. Other [...] this case. Clinical History: Physician Contact Number: [phone] Fixative (A): Fresh Clinical Diagnosis History: disorders of diaphragm Specimens Submitted As: A: PACING WIRE Gross Description: Received in formalin, labeled with the patient's name and hospital number, are multiple wires with a piece of adipose tissue attached measuring 3.0 x 1.6 x 1.0 cm. A photograph is taken. The attached soft tissue is submitted entirely in one cassette. EXB exb/02/12/2021 [facility] Department of Pathology [id number] [place] [address] Normal [facility] Comment on above: Performed By: #### U HCS ####[facility] Pathology [address] [place] [address] CORONAVIRUS 2019, SCREEN ASY MPTOMATICon 02-10-2021 SARS-CoV-2 (COVID-19) RNA BECCA+probe Ql (Unsp spec) Not detected Normal Not Detected [facility] Comment on above: Result Comment: . This [...] patient management decisions. Fact sheet for providers: https://www.fda.gov/media/572646/download Fact sheet for patients: https://www.fda.gov/media/546408/download This test has received FDA Emergency Use Authorization (EUA) and has been verified by [facility] ([facility]). This test is only authorized for the duration of time that circumstances exist to justify the authorization of the emergency use of in vitro diagnostic tests for the detection of SARS-CoV-2 virus and/or diagnosis of COVID-19 infection under section 564(b)(1) of the Act, 21 U.S.C. 360bbb-3(b)(1), unless the authorization is terminated or revoked sooner. [facility] is certified under CLIA-88 as qualified to perform high complexity testing. Testing is performed in the [facility] laboratories located at [address] [place] [address]. Performed By: #### C OVSC #### [place] [address] Covid 19 Resultson 06-08-202 1 SARS-CoV-2 (COVID-19) [...] contacted by the [facility] to see if any of your [...] or Naproxen (Aleve) can also be used. Eqqo-ymx-jvzbwmv cough and cold medicines can be used according to the instructions on the package. Some yvum-taz-usdomrr medicines also contain acetaminophen. Make sure you [...] water are not available, use alcohol-based hand child support investigator. Avoid touching your eyes, nose, and mouth [...] alem (more content not included)... Normal [facility] CORONAVIRUS 2019, SCREEN ASY MPTOMATICon 02-09-2021 Lab Specimen Source Nasal, Nasopharyngeal Normal [facility] Comment on above: Performed By: #### C OVSC #### [facility] [id number] [place] [address] Coronavirus 2019 RNA by PCR, Screening Asymptomticon 02-09-2021 Coronavirus 2019 RNA by PCR, Screening Asymptomtic Not detected Normal See Below TC-Eqsmska-Z [facility] 107 Work Phone: Comment on above: [...] make patient management decisions.Fact sheet for providers: https://www.fda.gov/media/366745/downloadFact sheet for patients: https://www.fda.gov/media/178090/downloadThis test has received FDA Emergency Use Authorization (EUA) and has been verified by [facility] ([facility]). This test is only authorized for the duration of time that circumstances exist to justify the authorization of the emergency use of in vitro diagnostic tests for the detection of SARS-CoV-2 virus and/or diagnosis of COVID-19 infection under section 564(b)(1) of the Act, 21 U.S.C. 360bbb-3(b)(1), unless the authorization is terminated or revoked sooner. [facility] is certified under CLIA-88 as qualified to perform high complexity testing. Testing is performed in the [facility] laboratories located at [address] [place] [address]. BASIC METABOLIC PANELon 05-2 Anion gap [Moles/Vol] 13 mmol/L Normal 10 - 20 [facility] Comment on above: Performed By: #### B MP ####[id number] [place] [address] Calcium [Mass/Vol] 9.7 mg/dL Normal 8.6 - 10.6 [facility] Comment on above: Performed By: #### B MP ####[id number] [place] [address] Chloride [Moles/Vol] 108 mmol/L High 98 - 107 [facility] Comment on above: Performed By: #### B MP ####[id number] [place] [address] Creatinine [Mass/Vol] 1.04 mg/dL Normal 0.50 - 1.30 [facility] Comment on above: Performed By: #### B MP ####[id number] [place] [address] GFR- AM. >60 Normal >60 [facility] Comment on above: Result Comment: CALC ULATIONS OF ESTIMATED GFR ARE PERFORMED USING THE MDRD STUDY EQUATION FOR THE IDMS-TRACEABLE CREATININE METHODS. CLIN CHEM 2007;53:766-72 Performed By: #### B MP ####[id number] [place] [address] GFR-NON AM. >60 Normal >60 [facility] Comment on above: Performed By: #### B MP ####[id number] [place] [address] Glucose [Mass/Vol] 91 mg/dL Normal 74 - 99 [facility] Comment on above: Performed By: #### B MP ####[id number] [place] [address] HCO3 (Bld) [Moles/Vol] 29 mmol/L Normal 21 - 32 [facility] Comment on above: Performed By: #### B MP ####[id number] [place] [address] Potassium [Moles/Vol] 4.6 mmol/L Normal 3.5 - 5.3 [facility] Comment on above: Performed By: #### B MP ####[id number] [place] [address] Sodium [Moles/Vol] 145 mmol/L Normal 136 - 145 [facility] Comment on above: Performed By: #### B MP ####[id number] [place] [address] Urea nitrogen [Mass/Vol] 13 mg/dL Normal 6 - 23 [facility] Comment on above: Performed By: #### B MP ####[id number] [place] [address] CBCon 01-27-2021 Erythrocyte distribution width (RBC) [Ratio] 12.2 % Normal 11.5 - 14.5 [facility] Comment on above: Performed By: #### C BC ####[id number] [place] [address] Hematocrit (Bld) [Volume fraction] 46.7 % Normal 41.0 - 52.0 [facility] Comment on above: Performed By: #### C BC ####[id number] [place] [address] Hemoglobin (Bld) [Mass/Vol] 15.1 g/dL Normal 13.5 - 17.5 [facility] Comment on above: Performed By: #### C BC ####[id number] [place] [address] MCHC (RBC) [Mass/Vol] 32.3 g/dL Normal 32.0 - 36.0 [facility] Comment on above: Performed By: #### C BC ####[id number] [place] [address] MCV (RBC) [Entitic vol] 96 fL Normal 80 - 100 [facility] Comment on above: Performed By: #### C BC ####[id number] [place] [address] NUCLEATED RBC 0.0 /100 WBC Normal 0.0-0.0 [facility] Comment on above: Performed By: #### C BC ####[id number] [place] [address] Platelets (Bld) [#/Vol] 209 10*3/uL Normal 150 - 450 [facility] Comment on above: Performed By: #### C BC ####[id number] [place] [address] RBC 4.85 x10E12/L Normal 4.50 - 5.90 [facility] Comment on above: Performed By: #### C BC ####[id number] [place] [address] WBC (Bld) [#/Vol] 7.2 10*3/uL Normal 4.4 - 11.3 [facility] Comment on above: Performed By: #### C BC ####[id number] [place] [address] Follow Up (General Surgery)o n 01-27-2021 Follow [...] EKG; Status:Hold For - Scheduling; Requested for:27Jan2021; Perform:[facility] [place] 1800; Due:27Apr2021;Ordered; For:Diaphragm dysfunction, [...] 2017 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 He was turning the device off 1-2 [...] MG Oral Tablet Vitals Vital Signs Recorded: 37Zhj6038 11:12AM Hbbfqvwtxdf06.1 F Heart Rate77 Rjpgovtw726 Zmvaxbjwo51 Eyvuwt306 lb BMI Olpxlsizmq29.64 kg/m2 BSA Calculated2.33 Tobacco Useb) No Physical [...] the r (more content not included)... Normal CampaignerCRM No Panel Informationon 01-27 [email or web address] [email or web address] 1:8080 /[email or web address]/[email or web address].dll?R etrieveTestByDateTime?Sherita kluVP=[id number]&Date=&Time=13%3a24%3a34%3a 00&TestType=ECG&Site=1&Out putType=PDF&Ext=PDF NV-Wojxase-[address] Work Phone: Normal sinus rhythm MG-Ramos rgery-[address] Work Phone: Normal JL-Puhitgy-[address] Work Phone: [phone] ZW-Szydbcv-X [address] Work Phone: [phone] 1 SI-Wljilbe-[address] Work Phone: 205 1 WW-Oydxpag-[address] Work Phone: 147 1 HD-Maxicle-[address] Work Phone: 224 1 UP-Rtehxet-[address] Work Phone: 11 1 TK-Vouzvqt-U [address] Work Phone: 69 1 GC-Chpjkwy-[address] Work Phone: 26 1 DL-Zcxkawf-I [address] Work Phone: 40 1 DB-Svvifsf-Q [address] Work Phone: [phone] 1 PA-Nncgueb-[address] Work Phone: 390 1 GO-Ugjtpjy-T [address] Work Phone: 92 1 US-Aogszob-T [address] Work Phone: 154 1 GL-Sctnopo-[address] Work Phone: 70 1 XI-Kzdnwri-Y [address] Work Phone: Radiologyon 01-27-2021 XR Chest 2 Views Normal MG-Surge ry-[address] Work Phone: TH CHEST 2 VIEW PA AND LATon 01-27-2021 TH CHEST 2 VIEW PA AND LAT Patient Name: RIGO JEFFERSON STUDY: TH CHEST 2 VIEW PA AND LAT; 01/27/2021 11:00 am INDICATION: chronic hypoventilation. COMPARISON: Chest radiograph 04/03/2019 ACCESSION NUMBER(S): [id number] ORDERING CLINICIAN: CHUCK CABALLERO FINDINGS: Inspiratory and [...] signed by: ANGI CAICEDO MD Normal [facility] Tobacco Screening.on 021 Tobacco use status CP b) No XG-Mpbzpgf-[address] Work Phone: Tobacco Screening. b) No MG-Tino raysa[facility] [address] Work Phone: Otheron 04-03-2019 XR Chest 2 views Interpreted by: ISAK04/03/19 14:06MRN: [id number] Name: RIGO JEFFERSON STUDY:CHEST 2 VIEW PA [...] Electronically signed by: ISAK 04/03/19 14:06 Normal PE-Ixyonwj-[address] Work Phone: Vital Signs Date Time Vital Sign Value Performing Clinician Facility 02-12-2021 14:10-0400 SaO2% (BldA) [Mass fraction] 95 % No Pcp Required [facility] 02-12-2021 14:00-0400 Body temperature 97.16 [degF] No Pcp Required [facility] 02-12-2021 14:00-0400 Diastolic blood pressure 83 mm[Hg] No Pcp Required [facility] 02-12-2021 14:00-0400 Heart rate 81 /min No Pcp Required [facility] 02-12-2021 14:00-0400 Respiratory rate 18 /min No Pcp Required [facility] 02-12-2021 14:00-0400 Systolic blood pressure 131 mm[Hg] No Pcp Required [facility] 02-12-2021 03:31-0400 Body height 182.8 cm No Pcp Required [facility] 02-12-2021 03:31-0400 Body weight 109.8 kg No Pcp Required [facility] 01-27-2021 11:12-0400 Body mass index (BMI) [Ratio] 33.64 kg/m2 Chuck Caballero MD Work Phone: AI-Bzvwhmg-[address] Work Phone: 01-27-2021 11:12-0400 Body surface area Derived from formula 2.33 m2 Chuck Caballero MD Work Phone: ZN-Uvfjslm-I[address] Work Phone: 01-27-2021 11:12-0400 Body temperature 96.1 [degF] Chuck Caballero MD Work Phone: RO-Jolsdta-[address] Work Phone: 01-27-2021 11:12-0400 Body weight 112.49 kg Chuck Caballero MD Work Phone: HO-Yplbdle-Yikq[address] Work Phone: 01-27-2021 11:12-0400 Diastolic blood pressure 85 mm[Hg] Chuck Caballero MD Work Phone: LU-Xbveyxa-Qrqtd [address] 107 Work Phone: 01-27-2021 11:12-0400 Heart rate 77 /min Chuck Caballero MD Work Phone: SO-Wcpohhq-Xxdyq [address] 107 Work Phone: 01-27-2021 11:12-0400 Systolic blood pressure 157 mm[Hg] Chuck Caballero MD Work Phone: QD-Yatsrcv-Zcuf[address] 107 Work Phone: 04-03-2019 15:37-0400 BMI (Body Mass Index) 30.11 kg/m2 Chandan [place] MG-Surgery -[place] 2099 Work Phone: 04-03-2019 15:37-0400 Body Temperature 97.9 [degF] Chandan [place] WP-Vqwovul-[address] 2099 Work Phone: 04-03-2019 15:37-0400 Body weight 100.7 kg Chandan [place] FV-Rsvjmpm-Ztftz ll 2099 Work Phone: 04-03-2019 15:37-0400 BP Diastolic 74 mm[Hg] Chandan [place] VS-Pbxvjqu-Aireu ll 2099 Work Phone: 04-03-2019 15:37-0400 BP Systolic 121 mm[Hg] Chandan Travon QG-Iannlxv-Edehd ll 2099 Work Phone: 04-03-2019 15:37-0400 BSA (Body Surface Area) 2.23 m2 Chandan Travon AV-Tilyvty-Teiepsr 2099 Work Phone: 04-03-2019 15:37-0400 Height 182.88 cm Chandan [place] FD-Wilrrud-Ytkbv ll 2099 Work Phone: 04-03-2019 15:37-0400 Pulse (Heart Rate) 58 /min Chandan Cool ED-Kbqrhsn-Zm [address] 2100 Work Phone: Encounters Encounter Date [...] related to original px No PCP None QN-Yddcvkd-[address] Work Phone: Start: 02-20-2021 Chart Update No PCP None MG-Surgery -[address] Work Phone: Start: 02-11-2021 End: 02-12-2021 Evaluation and management of inpatient Chuck Caballero [facility] [place] 5511 01 Start: 01-27-2021 Chart Update Chuck Caballero MD Work Phone: ES-Xukiyqn-Wqf[address] Work Phone: Start: 04-03-2019 Patient encounter procedure Chandan Cool VF-Gswhaln-Noistjl 2100 Work Phone: Start: 01-12-2018 Patient encounter procedure Chandan [place] XU-Hmbczkf-Izepd [address] 107 Work Phone: Start: 11-28-2017 Patient encounter procedure Chandan Matsonmo PL-Jdcizac-[address] Work Phone: Start: 11-28-2017 Patient encounter procedure Chandan Matsonmo DA-Exftxqg-[address] Work Phone: Procedures Date Procedure [...] 11-Feb-2022 Ordered: 11-Feb-2021 Saw Yo Intent [facility] Payers Date Payer Category Payer Unknown [id number] 2018 Unknown 1960 Medicare [id number] 1960 Unknown [id number] 2.16.84 0.1.607947.3.579.2.593 1959 Unknown [id number] 2.16.84 0.1.051451.3.579.2.593 1959 Unknown [id number] 2.16.84 0.1.338929.3.579.2.593 1959 Unknown [id number] 2.16.84 0.1.201599.3.579.2.593 1959 Unknown [id number] 2.16.84 0.1.677568.3.579.2.593 1959 Unknown [id number] 2.16.84 0.1.472973.3.579.2.593 1959 Unknown [id number] 2.16.84 0.1.183052.3.579.2.593 1959 Unknown [id number] 2.16.84 0.1.064875.3.579.2.593 1959 Unknown [id number] 2.16.84 0.1.842172.3.579.2.593 1959 Unknown [id number] 2.16.84 0.1.780659.3.579.2.593 1959 Unknown [id number] 2.16.84 0.1.063352.3.579.2.1259 1959 Unknown [id number] 2.16.84 0.1.009824.3.579.2.1259 1959 Unknown [id number] 2.16.84 0.1.741864.3.579.2.1259 1959 Unknown [id number] 2.16.84 0.1.377059.3.579.2.1259 1959 Unknown [id number] 2.16.84 0.1.999275.3.579.2.1259 1959 Unknown [id number] 2.16.840 .1.619408.3.579.2.1259 Social History Date Type Detail Facility Former smoker Former smoker VF-Apnqrej-[address] Work Phone: Tobacco smoking consumption unknown [facility] NEGATED: Highlighted row - - MG- Surgery-Chase Villatoro 107 Work Phone: Functional Status Date Assessment Result Facility Functional observable [facility] NEGATED: Highlighted row Functional performance Functional status health issues are not documented Disease ER-Hmjmwdh-[address] Work Phone: Mental Status Date Assessment Result Facility 02-12-2021 Cognitive functi ons [id number] [facility] NEGATED: Highlighted row Cognitive function [Interpretation] Cognitive status health issues are not documented Disease QC-Prxedvb-Tuq[address] 107 Work Phone: Clinical Notes 02-11-2021 [...] our patients to inform us about any jzwp-itp-vsgzrll medications or herbal remedies/nutritional supplements/alternative remedies. 2. [...] options with their primary care provider. [facility] 11-25-2022 Note CONSULTATION CONSULTATION DATE: 11/25/2022 [...] of his shoulders, bilaterally, without contrast. [facility] 09-03-2022 Note CONSULTATION CONSULTATION DATE: 09/03/2022 [...] three months' time, unless otherwise indicated. [facility] 06-01-2022 Note CONSULTATION CONSULTATION DATE: 06/01/2022 [...] b.i.d. basis. The patient also uses the VicInfinisource heat rub to his cervical spine. The [...] three months. CC: Shaikh Helena M.D. [facility] 05-18-2022 Note CONSULTATION CONSULTATION DATE: 05/18/2022 [...] to proceed. CC: Shaikh Helena M.D. [facility] 05-18-2022 Note CONSULTATION PROCEDURE DATE: 05/18/2022 [...] be followed up in the office. [facility] 04-29-2022 Note CONSULTATION CONSULTATION DATE: 04/29/2022 [...] for his injections with Dr. Duncan. [facility] 01-27-2022 Note CONSULTATION CONSULTATION DATE: 01/27/2022 [...] at Discharge: .Home Vital Signs: T PRBPSpO2 Value36.07507305/8395% Date/Time02/12 12: 12: 12: 12: 12:10 Range(35.4C - 36.4C ) (77 - 99 ) (17 - 18 ) (127 - 147 )/ (83 - 91 ) (92% - 96% ) As of 12-Feb-2021 12:10:00, patient is on 2 L/min of oxygen Date: Weight/Scale Type:Height: 12-Feb-2021 01:40238.8 kg / yojbcwva082.8 cm Hospital Course: 60 yo male with [...] Call to Schedule in: 2 weeks Location: [address] [place] [address] Discharge Medications: Home Medication clarithromycin 250 mg [...] Updated: 13-Feb-2021 10:13 by Chuck Caballero) [facility] 02-11-2021 Note Post Operative Note: PreOp Diagnosis: diaphragm paralysis Post-Procedure Diagnosis: same Procedure: 1. laparoscopic L diaphragm plication 2. removal of bilateral diaphragm pacing wires 3. L pigtail chest tube placement Surgeon: Dr Chuck Caballero Resident/Fellow/Other Prototype Model Maker: Dr Saw Yo Anesthesia: GETA Estimated Blood [...] Updated: 12-Feb-2021 07:53 by Chuck Caballero) [facility] 02-11-2021 Note History & Physical R eviewed: [...] Updated: 11-Feb-2021 15:50 by Chuck Caballero) [facility] Chief complaint Narrative - Reported An interactive audio and video telecommunication system which permits real time communications between the patient (at the originating site) and provider (at the distant site) was utilized to provide this telehealth service.Post op JV-[address] Work Phone: Evaluation note Constitutional: Well developed, awake/alert/oriented x3, no distress, alert and cooperativeSkin: warm and dryEyes: PERRL, EOMI, clear scleraENMT: MMMHead/Neck: NCATRespiratory/Thorax: good chest expansion, thorax symmetricCardiovascular: RRRGastrointestinal: Nondistended, soft, non-tender, no rebound tenderness or guardingMusculoskeletal: moves all extremitiesExtremities: well perfusedNeurological: grossly intactPsychological: Appropriate mood and behavior [facility] History of Present illness Narrative He is [...] not he wants to follow-up with a commercial agent in our system. EJ-[address] Work Phone: Hospital Discharge instructions [...] weekFollow Up Appointment 2:Physician/Dept/Service: Dr. Caballero - [facility] for Referral: hospital follow-up / diaphragm pacer removal, hemidiaphragm plicationLocation: [address], [place], [place] Number: [phone] Form - Other Clinicians:Other Clinician Instructions: Please take your medications as directed. Please follow-up with Dr. Caballero and with your PCP as directed. You may remove dressings and shower Tuesday. No heavy lifting >20lbs or strenours activity for 3 weeks. If your symptoms return or worsen, please seek medical attention. Thank you for allowing us to participate in your care. [facility] Family History No Family History Records Found [...] AUTHOR AUTHOR'S ORGANIZ ATION 12/31/2022 [facility] pital DATE CREATED AUTHOR AUTHOR'S ORGANIZ ATION 01/31/2024 [facility] FOR RECORDS PERTAINING TO PATIENTS WHO [...] BE BASED ON THE PRIMARY CLINICAL RECORDS. [facility] [employer] [facility]. provides no warranty or guarantee of the accuracy or completeness of information in this document.
[2024-04-24 08:35] VITALS: BP 160/104; PULSE 84; TEMP 36.2; O2SAT 99
[2024-04-24 09:13] VITALS: BP 148/77; PULSE 86; O2SAT 98
[2024-04-24 09:15] VITALS: BP 145/71; PULSE 84; O2SAT 96
[2024-04-24] MEDS: 0.9 % SODIUM CHLORIDE 10 ML SYRINGE - SALINE FLUSH 2 ML INJ (09:19)
[2024-04-24] MEDS: LIDOCAINE HCL 2% 400 MG/20 ML MDV 3 ML INJ (09:20)
[2024-04-24] MEDS: IOHEXOL 240 MG/ML - 10 ML VIAL 12 MG INJ (09:20)
[2024-04-24] MEDS: BUPIVACAINE HCL 0.25% PF 25 MG/10 ML VIAL 2 ML INJ (09:20)
[2024-04-24] MEDS: METHYLPREDNISOLONE ACETATE 80 MG/ML VIAL INJ (09:20)
--- NOTE | 2024-04-24 09:34 | P.ON_ITS ---
Date of procedure: 04/24/24 Pre-op diagnosis: Lumbar radiculopathy Post-op diagnosis: same as pre-op Procedure: Lumbar 4/5 Epidural Steroid Injection Under fluoroscopic guidance Immediate complications none Solution used for injection: Marcaine 0.25% 2mL, 2cc Normal saline, Depo-Medrol 80mg Omnipaque 3 mL Anesthesia local 2% lidocaine up to 4ml Timeout process compliant After informed consent obtained. Patient brought to the procedure room placed in the prone position. Skin overlying the area was prepped and draped in a sterile fashion using betadine. 25 gauge needle used to raise a skin wheel with local anesthetic over the target area identified under fluoroscopy. A 17 gauge Touhy needle Was inserted over the anesthetized area and directed towards the inter- space under fluoroscopic guidance. Epidural space was identified with loss of resistance technique to air. Needle Tip placement confirmed with injection of contrast solution in AP and Lateral views. Steroid solution was then injected. Anesthesia: Local Surgeon: Tonny Hernandez Condition: stable
== END 2024-04-24 09:26 | disposition home or self-care (01) ==
LOC: SURGOUT 08:24
PROVIDERS: PCP Internal Medicine; Visit Provider Anesthesiology Pain Medicine
DX: M54.16 Radiculopathy, lumbar region (principal)
CPT/HCPCS: 62323; J0665; J1010; Q9966

== ENCOUNTER 2024-05-09 11:03 | Outpatient (OUT) | payer OTHER, SELFPAY ==
--- OUTSIDE RECORDS SUMMARY | 2024-05-09 11:19 | XMS_ITS | CCD ---
Author Organization [facility] Care Team Providers Care Security Shift Manager Name Role Phone Chandan Cool Unavailable Unavailable Sid Ac Unavailable Unavailable Required, No Pcp Unavailable Unavailable Chuck Caballero Unavailable None, No PCP Unavailable Unavailable [facility] Primary Care Unavailable WEST, DR RADHA Gaxiola Consulting Unavailable DUNCAN ., DR LLUVIA Sheldon Attending Unavailable DUNCAN ., DR LLUVIA Sheldon Admitting Unavailable DUNCAN ., DR LLUVIA Sheldon Consulting Unavailable [facility] Primary Care Unavailable DUNCAN ., DR LLUVIA Sheldon Attending Unavailable DUNCAN ., DR LLUVIA Sheldon Consulting Unavailable DUNCAN ., DR LLUVIA Sheldon Admitting Unavailable [facility] Primary Care Unavailable DUNCAN ., DR LLUVIA Sheldon Attending Unavailable DUNCAN ., DR LLUVIA Sheldon Consulting Unavailable DUNCAN ., DR LLUVIA Sheldon Admitting Unavailable [facility] Primary Care Unavailable ANDERSEN .RAVINDER Consulting Unavailable DUNCAN ., DR LLUVIA Sheldon Admitting Unavailable DUNCAN ., DR LLUVIA Sheldon Attending Unavailable [facility] Primary Care Unavailable ANDERSEN .RAVINDER Consulting Unavailable DUNCAN ., DR LLUVIA Sheldon Admitting Unavailable DUNCAN ., DR LLUVIA Sheldon Attending Unavailable [facility] Primary Care Unavailable LAKSHMIPATHY ., NARENDRANATH Attending Nadira vailable LAKSHMIPATHY ., NARENDRANATH Admitting Nadira vailable FAWAD, [facility] Primary Care Unavailable LAKSHMIPATHY ., NARENDRANATH Attending Nadira vailable LAKSHMIPATHY ., NARENDRANATH Consulting Nadira vailable LAKSHMIPATHY ., NARENDRANATH Admitting Nadira vailable FAWWAD, [facility] Primary Care Unavailable LAKSHMIPATHY ., NARENDRANATH Consulting Nadira vailable LAKSHMIPATHY ., NARENDRANATH Admitting Nadira vailable LAKSHMIPATHY ., MONIQUEATH Attending Nadira vailable SHAIKH JASSO H Primary Care Unavailable NATHALY .RAVINDER Consulting Unavailable CUCO ., DR LLUVIA Sheldon Attending Unavailable CUCO ., DR LLUVIA Sheldon Admitting Unavailable HELENA, COREAS H Primary Care Unavailable LAKSHMIPATHY ., TONNY Attending Nadira vailable RINA, DR DOMINGA William Consulting Unavailable LAKSHMIPATHY ., NARENDEMERYATH Admitting Nadira vailable LAKSHMIPATHY ., TONNY Consulting Nadira vailable ITZBUTCH, JONATHAN H Attending Unavailable JONATHAN NAGY Attending Unavailable HELENA, Attending Unavailable HELENA, Attending Unavailable HELENA, Attending Unavailable HELENA, Attending Unavailable Tonny Hernandez MD Unavailable 1( [phone] Medications Current Medications Medication Drug Class(es) Dates [...] Quantity : 0 Refills: 0 Ordered: 12-Dec-2017 Dejesus, Isabel Status: Discontinued Generic Substitution Allowed Completed/Discontinued Medications [...] degeneration, unspecified cervical region] Onset: 05-23-2022 Chronic Spondylosis; intervertebral disc disorders; other back problems (9 sources) Cervicalgia; Translations: [Muscle spasm of back] Onset: 05-18-2022 Episodic Sprains and strains (2 sources) Strain of [...] Translations: [OTHER MUSCLE SPASM] Onset: 05-23-2022 Episodic NEGATED: Highlighted row has not occurred!Residual [...] by: DOMINGA FLYNN Date: 2022-12-08 10:25 Normal [facility] MRI SHOULDER RT WO CONon [...] by: DOMINGA FLYNN Date: 2022-12-08 10:35 Normal [facility] XR CSPINE OBL FLEX_EXTon XR [...] Date: 2022-05-31 20:33 Normal [facility] Post Op (General Surgery)on 04-02-2021 Post [...] not he wants to follow-up with a french translator in our system. Provider Impressions He [...] not he wants to follow-up with a french translator in our system. Chief Complaint An [...] not he wants to follow-up with a french translator in our system. Active Problems COPD [...] MG Oral Tablet Results/Data Xray Chest 1 [id number] 04:27PMJesusita Faith Test NameResultFlagReference Xray Chest 1 View(Report) FINAL REPORT Interpreted by: МАРИНА MARCELO MD 02/12/21 16:52 Patient Name: RIGO JEFFERSON STUDY: CHEST 1 VIEW; 02/12/2021 4:27 pm INDICATION: chest tube removal. COMPARISON: Prior 11:07 a.m. radiograph. ACCESSION NUMBER(S): [id number] ORDERING CLINICIAN: JESUSITA FAITH FINDINGS: Left basilar [...] Apr 02 2021 5:38PM EST (Author) Normal [employer] Admission Risk Screen - Adul ton 02-12-2021 Admission Risk Screen - Adult Allergies: Allergies: No Known Allergies: Patient Verification: New W ID Band Applied in my Departmentno Type of ID Patient is WearingW wristband, but not applied here Patient Transferred from Other Facility ([facility], [facility])no Patient Identity Verified Bypatient ID Band [...] AlertFor Ebola-like Symptoms: Isolate Patient and Notify Provider/Market Research Assistant For Contact: Notify Provider/Market Research Assistant Advance Directive: Advance Directive/DNRno (1) Advance Directive [...] Learning Preferencesverbal instruction Cultural Considerationsnone Developmental Considerationsnone Spiritism Considerationsnone Learning Assessment (Other Learner): Other learner availableno Depression Screen: During the past month, have you often been bothered by feeling down, depressed or hopelessno (1) During the past month, have you often had little interest or pleasure in doing thingsno (1) Have you had any thoughts of harming anyone elseno (1) Linneus Suicide: Risk Screen Not Applicable/Able to Answerable to be screened In the Past Month: Have you wished you were or could go to sleep and not wake upno(1) In the Past Month: Have you had any actual thoughts of killing yourself no(1) Lifetime: Have you ever done, started to do, or prepared to do anything to end your lifeno(1) Linneus Suicide Risknegative Adult Nutrition Screen: Have you [...] Pain (nonverbal)verbalization (more content not included)... Normal [facility] BASIC METABOLIC PANELon 02-03-2020 Anion gap [Moles/Vol] 15 mmol/L Normal 10 - 20 [facility] Comment on above: Performed By: #### B MP #### [facility] [address] [place] [address] Calcium [Mass/Vol] 9.5 mg/dL Normal 8.6 - 10.6 [facility] Comment on above: Performed By: #### B MP #### [facility] [address] [place] [address] Chloride [Moles/Vol] 102 mmol/L Normal 98 - 107 [facility] Comment on above: Performed By: #### B MP #### [facility] [address] [place] [address] Creatinine [Mass/Vol] 0.98 mg/dL Normal 0.50 - 1.30 [facility] Comment on above: Performed By: #### B MP #### [facility] [address] [place] [address] GFR- AM. >60 Normal >60 [facility] Comment on above: Result Comment: CALC ULATIONS OF ESTIMATED GFR ARE PERFORMED USING THE MDRD STUDY EQUATION FOR THE IDMS-TRACEABLE CREATININE METHODS. CLIN CHEM 2007;53:766-72 Performed By: #### B MP #### [facility] [address] [place] [address] GFR-NON AM. >60 Normal >60 [facility] Comment on above: Performed By: #### B MP #### [facility] [address] [place] [address] Glucose [Mass/Vol] 133 mg/dL High 74 - 99 [facility] Comment on above: Performed By: #### B MP #### [facility] [address] [place] [address] HCO3 (Bld) [Moles/Vol] 24 mmol/L Normal 21 - 32 [facility] Comment on above: Performed By: #### B MP #### [facility] [address] [place] [address] Potassium [Moles/Vol] 4.3 mmol/L Normal 3.5 - 5.3 [facility] Comment on above: Performed By: #### B MP #### [facility] [address] [place] [address] Sodium [Moles/Vol] 137 mmol/L Normal 136 - 145 [facility] Comment on above: Performed By: #### B MP #### [facility] [address] [place] [address] Urea nitrogen [Mass/Vol] 17 mg/dL Normal 6 - 23 [facility] Comment on above: Performed By: #### B MP #### [facility] [address] [place] [address] CBCon 02-12-2021 Erythrocyte distribution width (RBC) [Ratio] 12.1 % Normal 11.5 - 14.5 [facility] Comment on above: Performed By: #### C BC #### [facility] [address] [place] [address] Hematocrit (Bld) [Volume fraction] 45.8 % Normal 41.0 - 52.0 [facility] Comment on above: Performed By: #### C BC #### [facility] [address] [place] [address] Hemoglobin (Bld) [Mass/Vol] 15.0 g/dL Normal 13.5 - 17.5 [facility] Comment on above: Performed By: #### C BC #### [facility] [address] [place] [address] MCHC (RBC) [Mass/Vol] 32.8 g/dL Normal 32.0 - 36.0 [facility] Comment on above: Performed By: #### C BC #### [facility] [address] [place] [address] MCV (RBC) [Entitic vol] 94 fL Normal 80 - 100 [facility] Comment on above: Performed By: #### C BC #### [facility] [address] [place] [address] NUCLEATED RBC 0.0 /100 WBC Normal 0.0-0.0 [facility] Comment on above: Performed By: #### C BC #### [facility] [address] [place] [address] Platelets (Bld) [#/Vol] 228 10*3/uL Normal 150 - 450 [facility] Comment on above: Performed By: #### C BC #### [facility] [address] [place] [address] RBC 4.85 x10E12/L Normal 4.50 - 5.90 [facility] Comment on above: Performed By: #### C BC #### [facility] [address] [place] [address] WBC (Bld) [#/Vol] 12.8 10*3/uL High 4.4 - 11.3 [facility] Comment on above: Performed By: #### C BC #### [facility] [address] [place] [address] Clinical Event Note-POCon Clinical Event Note-POC Clinical [...] 00:41 by Nataliia Ferris ( (Resident)) Normal [facility] Daily Progress Note-Surgeryo n 02-12-2021 [...] yet. Objective Data: Objective Information: T PRBPSpO2 Value35.91625630/8695% Date/Time02/12 6:4902/12 6:4902/12 6:4902/12 6:4902/12 6:49 Range(35.4C - 36.4C ) (77 - 99 ) (17 - 18 ) (127 - 147 )/ (86 - 91 ) (95% - 96% ) Pain reported at 02/12 2:54: 6 = Moderate ---- Intake and Output ----- Mn/Dy/Year TimeIntakeOutputNet Feb 12, 2021 6:00 [id number] Feb 11, 2021 10:00 [id number] The Intake and Output Totals for the last 24 hours are: IntakeOutputNet [id number] Physical Exam by System: Constitutional: Well developed, [...] discuss with senior resident and attending. Jesusita Faiht DO PGY1 Signature/Cosignature/Atte station: Note Completion: I [...] Last Updated: 13-Feb-2021 10:13 by Chuck Caballero) [facility] Discharge Planning [id number] 0 02-12-2021 Discharge Planning Note2 Discharge Planning: Needs Prior to Discharge (ex. Home Care Orders, IV/O2 prescriptions) Follow up appointments Discharge Barriers (ex. Avoidable days, wait guardianship, pt refuse leave) None Planned Dispositionhome Discharge DestinationHome [facility] Bee of Choice Explainedyes preference Anticipated Discharge [id number] Discharge Planning 02/12/2021 0135 Discharge Plan Patient transferred from [place] [address] from PACU for diaphragm plication. Pt is A&O times 4. at 3 liters oxygen. Pt denies any medical lab scientist use at home. Pt emergency bellperson Sahil Joe- son. Pt have valuable belongings [...] disposition: Home Potential Barriers: none ADOD: 02/12. magnetic resonance imaging coordinator will continue to follow for discharge planning needs. Franny Gilliam RN, Transitional Loan Servicing Officer/TCC, pager [phone] Discharge note: 02/12/21 @ 1735: PT discharged home at this time. pts peripheral IV taken out prior to DC. pt given DC instructions. pt verbalized understanding. pt refused transport and walked downstairs with his son.---Erika stock RN Assessment: Discharge Planning Assessment [id number] Primary Contact Name and NumberAdam [phone](1) Stated Reason for Admissiondiaphragm plication(2) Arrived FromOR (2) Lives Withparent(s)(2) Living Arrangementshouse(2) Resource/Environmental Concernsnone(2) [place]) Services Anticipated at Transitionnone(2) Discharge Documentation: Discharge/Transfer Date/Tnqc28-Nsr-3893 17:35 Discharge Modeambulatory Discharged Accompanied Byfamily member [...] Profile - Adult v2 12-Feb-2021 01:31 Normal [facility] Discharge [id number] 021 Discharge Profile2 Discharge Orders: Anticipated Discharge Date: Anticipated Discharge [id number] DNAR: DNAR Status: none Call Provider If [...] hemidiaphragm plication Call to Schedule in2 weeks [id number] [place] [address] Phone [phone] Other Clinician Instructions: Other Instructions: Other Clinician InstructionsPlease take your medications as directed. Please follow-up with Dr. Caabllero and with your PCP as directed. You [...] Appointments, Other Clinician Instructions, Gold Form - Lining Inserter Summary Last Updated: 12-Feb-2021 15:27 by Jesusita Faith ( (Resident)) Normal [facility] Laboratory - Chemistry and C hemistry - challengeon 02-12-2021 Anion gap [Moles/Vol] 15 mmol/L 10 - 20 NU-Nebwrem-[address] Work Phone: Calcium [Mass/Vol] 9.5 mg/dL 8.6 - 10.6 MG-Tino raysa-G [address] Work Phone: Chloride [Moles/Vol] 102 mmol/L 98 - 107 YY-Jzkhkjg-[address] Work Phone: CO2 [Moles/Vol] 24 mmol/L 21 - 32 MG-Surger y-[facility] Work Phone: [phone] Creatinine [Mass/Vol] 0.98 mg/dL See Below SF-Fjoblbw-E [address] Work Phone: Comment on above: Reference Range: 0.5 0 - 1.30 Glucose [Mass/Vol] 133 mg/dL above high threshold 74 - 99 PW-Maaqqww-T [facility] [address] Work Phone: Potassium [Moles/Vol] 4.3 mmol/L 3.5 - 5.3 NC-Jaixmys-N [facility] [address] Work Phone: [phone] Sodium [Moles/Vol] 137 mmol/L 136 - 145 MG-Tino raysa-G [facility] Work Phone: Urea nitrogen [Mass/Vol] 17 mg/dL 6 - 23 RW-Ygmcbut-W [facility] [address] Work Phone: Laboratory - Hematology and Cell countson 02-12-2021 Erythrocyte distribution width (RBC) [Ratio] 12.1 % See Below JE-Yfnzxml-I [address] Work Phone: Comment on above: Reference Range: 11. 5 - 14.5 Hematocrit (Bld) [Volume fraction] 45.8 % See Below VJ-Frntjle-G [address] Work Phone: Comment on above: Reference Range: 41. 0 - 52.0 Hemoglobin (Bld) [Mass/Vol] 15.0 g/dL See Below YH-Qoawqax-S [address] Work Phone: Comment on above: Reference Range: 13. 5 - 17.5 MCHC (RBC) [Mass/Vol] 32.8 g/dL See Below KG-Fbcioeb-R [address] Work Phone: Comment on above: Reference Range: 32. 0 - 36.0 MCV (RBC) [Entitic vol] 94 fL 80 - 100 RJ-Mnguvdr-L [address] Work Phone: Platelets (Bld) [#/Vol] 228 10*3/uL 150 - 450 BF-Hzbwatc-C [facility] Work Phone: RBC (Bld) [#/Vol] 4.85 {x10E12/L} See Below MG -Surgery-[facility] [place] [address] Work Phone: Comment on above: Reference Range: 4.5 0 - 5.90 WBC (Bld) [#/Vol] 12.8 10*3/uL above high threshold 4.4 - 11.3 XM-Vnedzee-W [place] [address] Work Phone: No Panel Informationon 02-12 >60 >60 GQ-Cgxmwcs-W [place] [address] Work Phone: Comment on above: CALCULATIONS OF LANRE MATED GFR ARE PERFORMED USING THE MDRD STUDY EQUATION FOR THE IDMS-TRACEABLE CREATININE METHODS. CLIN CHEM 2007;53:766-72 0.0 {/100_WBC} 0.0-0.0 MG-Surgery -G [place] [address] Work Phone: Order Reconciliationon 02-12 Order Reconciliation [...] tab(s) orally 2 times a day Normal [facility] Patient Profile - Adult v2on 02-12-2021 Patient Profile - Adult v2 Profile: Initial Info: How to be AddressedDel(1) Spoken Language PreferredEnglish (1) Stated Reason for Admissiondiaphragm plication Patient Belongingsremains with patient Patient Belongings Remaining with Patientcash/credit card; clothing Arrived FromOR Medications Brought to Hospitalno Are you currently using the Personal Electronic Health Record or [employer]no (1) Wants Family/Rep Notified of Admissionyes, primary contact Notify PCPnotify PCP Informed of Patient Visiting Rightsyes General Health: Blood Avoidance/Restrictionsnone (1) Previous Transfusion Reactionno(2) Weight in kg109.8 kilogram(s)(3) Weight in qcw226 pound(s) Weight Methodactual (measured) (3) Scale Typestanding [...] Disorders of diaphragm Electronic Signatures: Mary Beth Holcomb) (Signed 12-Feb-2021 01:34) Authored: Initial Info, General Health, RSP Based Care, Substance, Health Mgmt, Relationship/Environ, Additional Information Last Updated: 12-Feb-2021 01:34 by Mary Beth Holcomb (RN) References: 1. Data Referenced From Patient Profile - Preop v2 11-Feb-2021 12:02 2. Data Referenced From Patient Profile - Adult v2 12-Dec-2017 16:00 3. Data Referenced From 1. Vital Signs 11-Feb-2021 12:02 Normal [facility] Radiologyon 02-12-2021 XR Chest Single view Normal NL-Thgyjny-A [address] Work Phone: XR Chest Single view Normal DK-Ofpedbr-V [address] Work Phone: XR Chest Single view Normal PW-Psjfxwp-O [address] Work Phone: TH CHEST 1 VIEWon 02-12-2021 TH CHEST 1 VIEW Patient Name: RIGO JEFFERSON STUDY: CHEST 1 VIEW; 02/12/2021 4:27 pm INDICATION: chest tube removal. COMPARISON: Prior 11:07 a.m. radiograph. ACCESSION NUMBER(S): [id number] ORDERING CLINICIAN: JESUSITA FAITH FINDINGS: Left basilar [...] Electronically signed by: МАРИНА MARCELO MD Normal [facility] TH CHEST 1 VIEW Patient Name: RIGO JEFFERSON STUDY: CHEST 1 VIEW; 02/12/2021 11:58 am INDICATION: chest tube wet seal. COMPARISON: 7:02 a.m. radiograph. ACCESSION NUMBER(S): [id number] ORDERING CLINICIAN: JESUSITA FAITH FINDINGS: Left basilar [...] Electronically signed by: МАРИНА MARCELO MD Normal [facility] CHEST 1 VIEW Patient Name: RIGO JEFFERSON STUDY: CHEST 1 VIEW; 02/12/2021 7:13 am INDICATION: POD 1 s/p diaphragm plication. COMPARISON: 02/11/2021. ACCESSION NUMBER(S): [id number] ORDERING CLINICIAN: SAW YO FINDINGS: Left basilar [...] Electronically signed by: МАРИНА MARCELO MD Normal [facility] No Panel Informationon 02-11 [place] [address] Work Phone: Operative Reports - [facility] [place] [address] Patient Name: RIGO JEFFERSON : 1960 Date of Service: 02/11/2021 Patient Location: [place] [address] Patient Type: I Surgeon: Chuck Caballero MD Report Type: Operative Reports PREOPERATIVE DIAGNOSIS: Chronic respiratory failure, left diaphragm dysfunction. POSTOPERATIVE DIAGNOSIS: Chronic respiratory failure, left diaphragm dysfunction. OPERATION/PROCEDURE: Laparoscopic left diaphragm plication with removal of previous diaphragm pacing wires. SURGEON: Chuck Caballero MD ANDROID UI DEVELOPER(S): Saw Yo MD. There was no available resident. ANESTHESIA: LOCATION: [facility]. CLINICAL NOTE: This is a patient with [...] TT: 02/12/2021 12:44 PM EST DICTATION NUMBER: [id number] BRIE JOB NUMBER: [id number] CC: PT STATES NONE PCP Electronic Signatures: Chuck Caballero) (Signed on 13-Feb-2021 10:15) Authored Unsigned, Draft (SYS GENERATED) (Entered on 12-Feb-2021 12:44) Entered Last Updated: 13-Feb-2021 10:15 by Chuck Caballero) Normal [facility] Order Reconciliationon 02-11 Order Reconciliation Page 1 Admission Reconciliation Document Reconciliation Type: Admission from OR requested on behalf of Saw Yo (Physician) done by Saw Yo) Admission from OR - Reconciliation: 11-Feb-2021 18:31 by: Saw Yo) Home MedicationsEnteredLast Dose TakenReconciled with current Order Reconciliation Comment/ Additional Information Kristina 24 Hour Allergy oral tablet 1 tab(s) orally once a [id number]-[id number]-Feb-2021 AM Reviewed and Held clarithromycin 250 mg oral tablet 250 milligram(s) orally once a day Clarithromycin Tablet (BIAXIN)DOSE = 250 mg Oral Every 24 Hoursclarithromycin 250 mg oral tablet continued as the inpatient order Clarithromycin diclofenac sodium 50 mg oral delayed release tablet 1 tab(s) orally 2 times a [id number]-Tvp-4817 AM Reviewed and Held oxycodone-acetaminophen 5 mg-300 mg oral tablet 1 tab(s) orally 2 times a day [id number] AM Reviewed and Held Additional Current Orders [...] 15 minute(s)Clinician Notes: Carlota-operative order ONLY Normal [facility] Patient Profile - Preop v2on 02-11-2021 Patient Profile - Preop v2 Profile: Initial Info: How to be AddressedDel(1) Spoken Language PreferredEnglish (1) Source of Informationpatient Are you currently using the Personal Electronic Health Record or [employer]no (1) Are you interested in learning more about [employer] for the management of your healthnot at this time Stated Reason for AdmissionL pulling of wires/pulling lung down Primary [facility] [phone] Patient Belongingspatient educated regarding responsibility for personal items Medications Brought to Hospitalno General Health: Weight in kg109.8 kilogram(s) Weight in rer620 pound(s) Weight Methodactual (measured) Scale Typestanding Height [...] Learning Preferencesverbal instruction Cultural Considerationsnone Developmental Considerationsnone Spiritism Considerationsnone Other learner availableno Falls RiskPatient location auto qualifies him/her for HIGH RISK. Are there any cultural, spiritual, latter day practices/values/needs that are important for us to [...] Profile - Adult v2 12-Dec-2017 16:00 Normal [facility] Preop Checkliston 02-11-2021 Preop Checklist Preop Checklist: Preop Checklist: Arrival [id number] Arrival Time11:48 Procedure TypeL laparoscopic diaphragm plication Temperature C36.1 degrees C Temperature F96.9 degrees F Heart Rate70 beats per minute Respiratory Rate12 breath per minute Blood Pressure Obkubmqr658 mm/Hg Blood Pressure Vdxjexdzk20 mm/Hg NPO Wkjala72-Wfu-8012 00:00 ID Band Onyes Allergy Bandno known [...] 11-Feb-2021 12:02 by Jany Ann (RN) Normal [facility] Radiologyon 02-11-2021 XR Chest Single view Please click on the link to view the study images Normal [place] [address] Work Phone: [facility] Surgical Pathology Depar tmenton 02-11-2021 [facility] Surgical Pathology Department Name RIGO JEFFERSON Pathologist: JACINTO MURRIETA MD Date of Procedure: 02/11/2021 Date Received: 02/12/2021 Date Reported 02/19/2021 Submitting Physician: CHUCK CABALLERO M.D. Location: [facility] Copy To/Referring/Attending: CHUCK CABALLERO M.D. Other [...] this case. Clinical History: Physician Contact Number: [id number] Fixative (A): Fresh Clinical Diagnosis History: disorders of diaphragm Specimens Submitted As: A: PACING WIRE Gross Description: Received in formalin, labeled with the patient's name and hospital number, are multiple wires with a piece of adipose tissue attached measuring 3.0 x 1.6 x 1.0 cm. A photograph is taken. The attached soft tissue is submitted entirely in one cassette. EXB exb/02/12/2021 [facility] Department of Pathology [id number] [place] [address] Normal [facility] Comment on above: Performed By: #### U HCS ####[facility] Surgical Pathology [id number] [place] [address] CORONAVIRUS 2019, SCREEN ASY MPTOMATICon 02-10-2021 SARS-CoV-2 (COVID-19) RNA BECCA+probe Ql (Unsp spec) Not detected Normal Not Detected [facility] Comment on above: Result Comment: [...] patient management decisions. Fact sheet for providers: https://www.fda.gov/media/008413/download Fact sheet for patients: https://www.fda.gov/media/503235/download This test has received FDA Emergency Use Authorization (EUA) and has been verified by [facility] ([facility]). This test is only authorized for the duration of time that circumstances exist to justify the authorization of the emergency use of in vitro diagnostic tests for the detection of SARS-CoV-2 virus and/or diagnosis of COVID-19 infection under section 564(b)(1) of the Act, 21 U.S.C. 360bbb-3(b)(1), unless the authorization is terminated or revoked sooner. [facility] is certified under CLIA-88 as qualified to perform high complexity testing. Testing is performed in the [facility] laboratories located at [address] [place] [address]. Performed By: #### C OVSC #### [facility] [address] [place] [address] Covid 19 Resultson 1 SARS-CoV-2 (COVID-19) RNA BECCA+probe Ql (Unsp [...] contacted by the [facility] to see if any of your [...] or Naproxen (Aleve) can also be used. Nmsq-fyo-dnmpjbr cough and cold medicines can be used according to the instructions on the package. Some zdmk-ish-rpisqbs medicines also contain acetaminophen. Make sure you [...] water are not available, use alcohol-based hand wood cabinetmaker. Avoid touching your eyes, nose, and mouth [...] 24 alem (more content not included)... Normal [facility] CORONAVIRUS 2019, SCREEN ASY MPTOMATICon 02-09-2021 Lab Specimen Source Nasal, Nasopharyngeal Normal [facility] Comment on above: Performed By: #### C OVSC #### [facility] [address] [place] [address] Coronavirus 2019 RNA by PCR, Screening Asymptomticon 02-09-2021 Coronavirus 2019 RNA by PCR, Screening Asymptomtic Not detected Normal See Below [place] [address] Work Phone: Comment on above: SOURCE: Nasal, [...] make patient management decisions.Fact sheet for providers: https://www.fda.gov/media/906457/downloadFact sheet for patients: https://www.fda.gov/media/371553/downloadThis test has received FDA Emergency Use Authorization (EUA) and has been verified by [facility] ([facility]). This test is only authorized for the duration of time that circumstances exist to justify the authorization of the emergency use of in vitro diagnostic tests for the detection of SARS-CoV-2 virus and/or diagnosis of COVID-19 infection under section 564(b)(1) of the Act, 21 U.S.C. 360bbb-3(b)(1), unless the authorization is terminated or revoked sooner. [facility] is certified under CLIA-88 as qualified to perform high complexity testing. Testing is performed in the [facility] laboratories [place] [address] [place] [address]. BASIC METABOLIC PANELon 05-2 Anion gap [Moles/Vol] 13 mmol/L Normal 10 - 20 [facility] Comment on above: Performed By: #### B MP ####[id number] [place] [address] Calcium [Mass/Vol] 9.7 mg/dL Normal 8.6 - 10.6 [facility] Comment on above: Performed By: #### B MP ####[id number] [place] [address] Chloride [Moles/Vol] 108 mmol/L High 98 - 107 [facility] Comment on above: Performed By: #### B MP ####[id number] [place] [address] Creatinine [Mass/Vol] 1.04 mg/dL Normal 0.50 - 1.30 [facility] Comment on above: Performed By: #### B MP ####[id number] [place] [address] GFR- AM. >60 Normal >60 [facility] Comment on above: Result Comment: CALC ULATIONS OF ESTIMATED GFR ARE PERFORMED USING THE MDRD STUDY EQUATION FOR THE IDMS-TRACEABLE CREATININE METHODS. CLIN CHEM 2007;53:766-72 Performed By: #### B MP ####[id number] [place] [address] GFR-NON AM. >60 Normal >60 [facility] Comment on above: Performed By: #### B MP ####[id number] [place] [address] Glucose [Mass/Vol] 91 mg/dL Normal 74 - 99 [facility] Comment on above: Performed By: #### B MP ####[id number] [place] [address] HCO3 (Bld) [Moles/Vol] 29 mmol/L Normal 21 - 32 [facility] Comment on above: Performed By: #### B MP ####[id number] [place] [address] Potassium [Moles/Vol] 4.6 mmol/L Normal 3.5 - 5.3 [facility] Comment on above: Performed By: #### B MP ####[id number] [place] [address] Sodium [Moles/Vol] 145 mmol/L Normal 136 - 145 [facility] Comment on above: Performed By: #### B MP ####[id number] [place] [address] Urea nitrogen [Mass/Vol] 13 mg/dL Normal 6 - 23 [facility] Comment on above: Performed By: #### B MP ####[id number] [place] [address] CBCon 01-27-2021 Erythrocyte distribution width (RBC) [Ratio] 12.2 % Normal 11.5 - 14.5 [facility] Comment on above: Performed By: #### C BC ####[id number] [place] [address] Hematocrit (Bld) [Volume fraction] 46.7 % Normal 41.0 - 52.0 [facility] Comment on above: Performed By: #### C BC ####[id number] [place] [address] Hemoglobin (Bld) [Mass/Vol] 15.1 g/dL Normal 13.5 - 17.5 [facility] Comment on above: Performed By: #### C BC ####[id number] [place] [address] MCHC (RBC) [Mass/Vol] 32.3 g/dL Normal 32.0 - 36.0 [facility] Comment on above: Performed By: #### C BC ####[id number] [place] [address] MCV (RBC) [Entitic vol] 96 fL Normal 80 - 100 [facility] Comment on above: Performed By: #### C BC ####[id number] [place] [address] NUCLEATED RBC 0.0 /100 WBC Normal 0.0-0.0 [facility] Comment on above: Performed By: #### C BC ####[id number] [place] [address] Platelets (Bld) [#/Vol] 209 10*3/uL Normal 150 - 450 [facility] Comment on above: Performed By: #### C BC ####[id number] [place] [address] RBC 4.85 x10E12/L Normal 4.50 - 5.90 [facility] Comment on above: Performed By: #### C BC ####[id number] [place] [address] WBC (Bld) [#/Vol] 7.2 10*3/uL Normal 4.4 - 11.3 [facility] Comment on above: Performed By: #### C BC ####[id number] [place] [address] Follow Up (General Surgery)o n 01-27-2021 Follow [...] EKG; Status:Hold For - Scheduling; Requested for:27Jan2021; Perform:[facility] [place] 1800; Due:27Apr2021;Ordered; For:Diaphragm dysfunction, [...] will get CXR and EKG and pursue Feb [address] Caballero will remove [...] 2017 and had paced more or less tso. He was turning the device off 1-2 [...] MG Oral Tablet Vitals Vital Signs Recorded: [id number] 11:12AM Ldioonqqila21.1 F Heart Rate77 Omuaamfw388 Catrsmkfn96 Uzgkcg881 lb BMI Yglzgruthp46.64 kg/m2 BSA Calculated2.33 Tobacco Useb) No Physical [...] the r (more content not included)... Normal [employer] No Panel Informationon 01-27 [email or web address] 1:8080 /[email or web address]?R etrieveTestByDateTime?Sherita wifIJ=[email or web address]&Date=&Time=13%3a24%3a34%3a 00&TestType=ECG&Site=1&Out putType=PDF&Ext=PDF HM-Uvc[address]yv[address] Work Phone: Normal sinus rhythm MG-Ramos rgery-[address] Work Phone: Normal KA-Edgfjxr-[address] Work Phone: [phone] 1 RS-Oxlwkfo-[address] Work Phone: [phone] 1 JE-Zyrlsxl-Q [address] Work Phone: 205 1 XN-Ahsesaj-[address] Work Phone: 147 1 SY-Twadgpe-[address] Work Phone: 224 1 WJ-Hbayoxc-[address] Work Phone: 11 1 AV-Dubspfa-X [address] Work Phone: 69 1 LU-Ifsdunh-[address] Work Phone: 26 1 PY-Rqgpoos-[address] Work Phone: 40 1 JE-Jgtpttv-[address] Work Phone: 421 1 CA-Xgjnvzw-[address] Work Phone: 390 1 DD-Ghjvsss-E [address] Work Phone: 92 1 HN-Qxfzzlu-Y [address] Work Phone: 154 1 HQ-Fekuguj-[address] Work Phone: 70 1 GO-Bpbklkw-[address] Work Phone: Radiologyon 01-27-2021 XR Chest 2 Views Normal MG-Surge ry-[address] Work Phone: TH CHEST 2 VIEW PA AND LATon 01-27-2021 TH CHEST 2 VIEW PA AND LAT Patient Name: RIGO JEFFERSON STUDY: TH CHEST 2 VIEW PA AND LAT; 01/27/2021 11:00 am INDICATION: chronic hypoventilation. COMPARISON: Chest radiograph 04/03/2019 ACCESSION NUMBER(S): [id number] ORDERING CLINICIAN: CHUCK CABALLERO FINDINGS: Inspiratory and [...] Electronically signed by: ANGI CAICEDO MD Normal [facility] Tobacco Screening.on 021 Tobacco use status CPHS b) No [facility] Work Phone: Tobacco Screening. b) No MG-Tino raysa-G [facility] 107 Work Phone: Otheron 04-03-2019 XR Chest 2 views Interpreted by: ISAK04/03/19 14:06MRN: [id number] Name: RIGO JEFFERSON STUDY:CHEST 2 VIEW PA [...] Electronically signed by: ISAK 04/03/19 14:06 Normal DF-Evulnmz-[address] Work Phone: Vital Signs Date Time Vital Sign Value Performing Clinician Facility 02-12-2021 14:10-0400 SaO2% (BldA) [Mass fraction] 95 % No Pcp Required [facility] 02-12-2021 14:00-0400 Body temperature 97.16 [degF] No Pcp Required [facility] 02-12-2021 14:00-0400 Diastolic blood pressure 83 mm[Hg] No Pcp Required [facility] 02-12-2021 14:00-0400 Heart rate 81 /min No Pcp Required [facility] 02-12-2021 14:00-0400 Respiratory rate 18 /min No Pcp Required [facility] 02-12-2021 14:00-0400 Systolic blood pressure 131 mm[Hg] No Pcp Required [facility] 02-12-2021 03:31-0400 Body height 182.8 cm No Pcp Required [facility] 02-12-2021 03:31-0400 Body weight 109.8 kg No Pcp Required [facility] 01-27-2021 11:12-0400 Body mass index (BMI) [Ratio] 33.64 kg/m2 Chuck Caballero MD Work Phone: SE-J[address]sm[address] Work Phone: 01-27-2021 11:12-0400 Body surface area Derived from formula 2.33 m2 Chuck Caballero MD Work Phone: OR-Cxxpeov[address] Work Phone: 01-27-2021 11:12-0400 Body temperature 96.1 [degF] Chuck Caballero MD Work Phone: LY-Sugvsgk-[address] Work Phone: 01-27-2021 11:12-0400 Body weight 112.49 kg Chuck Caballero MD Work Phone: SN-Kzsfhnm-[address] Work Phone: 01-27-2021 11:12-0400 Diastolic blood pressure 85 mm[Hg] Chuck Caballero MD Work Phone: EU-Vsueajp-X[address] Work Phone: 01-27-2021 11:12-0400 Heart rate 77 /min Chuck Caballero MD Work Phone: JO-Mzhnzto-[address] Work Phone: 01-27-2021 11:12-0400 Systolic blood pressure 157 mm[Hg] Chuck Caballero MD Work Phone: UP-Clhcmiw-[address] Work Phone: 04-03-2019 15:37-0400 BMI (Body Mass Index) 30.11 kg/m2 Chandan Travon [facility] -[place] [address]99 Work Phone: 04-03-2019 15:37-0400 Body Temperature 97.9 [degF] Chandan Travon QL-Cmlunxe-[address]99 Work Phone: 04-03-2019 15:37-0400 Body weight 100.7 kg Chandan Travon VT-Uoihhjg-Ezlzl ll 2099 Work Phone: 04-03-2019 15:37-0400 BP Diastolic 74 mm[Hg] Chandan Travon IX-Eclkxao-Dczen ll 2099 Work Phone: 04-03-2019 15:37-0400 BP Systolic 121 mm[Hg] Chandan [place] FH-Qhlnlxz-Wrglz ll 2099 Work Phone: 04-03-2019 15:37-0400 BSA (Body Surface Area) 2.23 m2 Chandan [place] FK-Chrflbe-Sglsgqo 2099 Work Phone: 04-03-2019 15:37-0400 Height 182.88 cm Chandan Cool DC-Dzbzsmo-Vlydg ll 2099 Work Phone: 04-03-2019 15:37-0400 Pulse (Heart Rate) 58 /min Chandan Cool VN-Fivuwjw-[address]99 Work Phone: Encounters Encounter Date Encounter Type Care Provider Facility Start: 04-19-2024 End: 04-24-2024 Chart abstracting None (Historical) Neurology Start: 01-31-2024 End: 01-31-2024 ambulatory COREAS FAWWAD [...] FAWWAD Facility:H1 Start: 01-27-2022 End: 01-28-2022 ambulatory SHAIKH Mina JASSO Facility:H1 Start: 04-02-2021 Postop follow up vis it related to original px No PCP None TJ-Shhsxpe-[address] Work Phone: Start: 02-20-2021 Chart Update No PCP None [facility]gery [facility] Work Phone: Start: 02-11-2021 End: 02-12-2021 Evaluation and management of inpatient Chuck Caballero [facility] Rm 5511 01 Start: 01-27-2021 Chart Update Chuck Caballero MD Work Phone: PD-Gcmpehg-[address] Work Phone: Start: 04-03-2019 Patient encounter procedure Chandan Cool DY-Wxnkzzy-[address] Work Phone: Start: 01-12-2018 Patient encounter procedure Chandan Cool OC-Ehajmzl-X[address] Work Phone: Start: 11-28-2017 Patient encounter procedure Chandan Cool QW-Jsmcfyi-[address] Work Phone: Start: 11-28-2017 Patient encounter procedure Chandan Cool ET-Djspvqh-Nml[address] Work Phone: Procedures Date Procedure [...] End: 11-Feb-2022 Ordered: 11-Feb-2021 Saw Yo Intent [facility] End: 05-24-2025 XR Lumbar spine Views W flexion and W extension XR LUMBAR MOTION 4V AP/LAT/ FLEX/EXT Radiology Routine Spinal stenosis of lumbar region with neurogenic claudication 1 Occurrences starting 04/24/2024 until 05/24/2025 [facility] Work Phone: Comment on above: 1 Occurrences starti ng 04/24/2024 until 05/24/2025 Payers Date Payer Category Payer Medicare DEVOTED MEDICARE DEVOTED [facility] HMO [id number] 2022-Present [phone] [address] [place] [address] HMO [id number] 2020 Unknown [id number] 2018 Unknown 1959 Medicare [id number] 1959 Unknown [id number] [id number] 1959 Unknown [id number] 2.16.840.1.581272.3.579.2.59 1959 Unknown [id number] 2.16.840.1.804892.3.579.2.59 1959 Unknown [id number] 2.16.840.1.434283.3.579.2.593 1959 Unknown [id number] 2.16.840.1.148934.3.579.2.59 1959 Unknown [id number] 2.16.840.1.421762.3.579.2.593 1959 Unknown [id number] 2.16.840.1.064578.3.579.2.59 1959 Unknown [id number] 2.16.840.1.499022.3.579.2.593 1959 Unknown [id number] 2.16.840.1.843590.3.579.2.59 1959 Unknown [id number] 2.16.840.1.316934.3.579.2.593 1959 Unknown [id number] 2.16.840.1.226656.3.579.2.1259 1959 Unknown [id number] 2.16.840.1.885139.3.579.2.1259 1959 Unknown [id number] 2.16.840.1.652607.3.579.2.1259 1959 Unknown [id number] 2.16.840.1.186513.3.579.2.1259 1959 Unknown [id number] 2.16.840.1.155507.3.579.2.1259 1959 Unknown [id number] 2.16.840.1.770697.3.579.2.1259 Social History Date Type Detail Facility Former smoker Former smoker PQ-Wwaxpru-[address] Work Phone: Tobacco smoking consumption unknown [facility] Start: 1960 Sex assigned at Not on file [facility] Gender identity Not on file [facility] in NEGATED: Highlighted row - - FO-Wsgsvqc-[address] Work Phone: Functional Status Date Assessment Result Facility Functional observable [facility] NEGATED: Highlighted row Functional performance Functional status health issues are not documented Disease EC-Uywwbmg-[address] Work Phone: Mental Status Date Assessment Result Facility 02-12-2021 Cognitive functi ons [id number] [facility] NEGATED: Highlighted row Cognitive function [Interpretation] Cognitive status health issues are not documented Disease CT-Qqqkqld-Z[address] Work Phone: Clinical Notes 02-11-2021 to 04-24-2024 Michelle Florentino APRN.SENIOR PHP WEB DEVELOPER - 04/24/2024 4:50 PM EDTSylvie Austyn P - 04/19/2024 1:49 PM EDT<item> Note Date & Type Note Facility 04-24-2024 Note HNO ID: [id number] Author: MICHELLE FLORENTINO APRN.NANCY Service: ? Author Type: Nurse Practitioner Type: Progress Notes Filed: 04/24/2024 16:54 Note Text: Per Triage: Rigo Jefferson is a 64 year old male. that presents with symptoms of low back pain that radiates down the left leg. Previous spine surgery: Yes in [address] Sales. BMI: NA Out of state: No A1C: NA CMT: Injections Pot Pusher Mobic Oxycodone Studies (Reports unless indicated) MRI Lumbar 04/03/2024 -Severe central canal stenosis at L3-L4 and L4-L5 Disposition: Please schedule with first available lumbar spine surgeon with pre-visit x-ray. [facility] 04-24-2024 History of Present illness Narrative Per Triage: Rigo Jefferson is a 64 year old male. that presents with symptoms of low back pain that radiates down the left leg. Previous spine surgery: Yes in [address] Sales. BMI: NA Out of state: No A1C: NA CMT: Injections Pot Pusher Mobic Oxycodone Studies (Reports unless indicated) MRI Lumbar 04/03/2024 -Severe central canal stenosis at L3-L4 and L4-L5 Disposition: Please schedule with first available lumbar spine surgeon with pre-visit x-ray. Patient name: Rigo Jefferson Are you being referred by a Center for Spine Health Provider or Pain Management Provider at [facility]? No If answer is YES please schedule directly with surgeon, triage does not need to be completed. Is this a self-referral No If not, who is the Referring Provider Kevin Hernandez Is this a 2nd opinion from another spine surgeon? No Were you offered surgery? No MRI/CT/myelogram within 12 months? Yes If NO , please refer to medical spine or PCP to complete above imaging, triage does not need to be completed If YES, please ask for the name/address of the facility where the MRI/CT/myelogram was completed: [facility] Address: [address] [place] [address] MRI/CT/myelogram viewable in Epic: No If not, please provide [phone] to fax in imaging reports for review. Also, please inform patient to hand carry imaging disc to appointment. XR (spine) within 12 months: Yes If YES, please ask for the name/address of the facility where the XR was completed: Same Dr. Rosales's patients: Have you had previous EMG/Nerve Conduction Study, Ultrasound, or MRI for these same symptoms? If YES, please ask for the name/address of the facility where they were completed: Requested provider (First and Last name): UN Are you interested in a virtual visit if offered? No 1. Where are you having symptoms related to this visit? LBP Hip pain (L) Leg pain (L), Numbness, tingling, burning pain, Back pain Yes Leg pain Yes Arm pain No Neck pain No 2. Are you having any of the following symptoms: Difficulty walking Yes w/ pain Numbness Yes Weakness No Trouble using your hands? No 3. Have you had any injections or physical therapy in the last 12 months? Yes If YES then please ask for the name/address of the facility where the injections and/or physical therapy was completed Injections [facility] Address: [address] [place] [address] Have you tried any other kinds of non-surgical treatments in the last 12 months? (For example: NSAIDS, muscle relaxants, analgesics, oral steroids, Chiropractor, Acupuncture): Chiropractor Meloxicam 4. Are you currently taking daily prescribed narcotic medications for your current symptoms (For example Oxycodone, Hydrocodone, Tramadol, Morphine, Other)? Yes Oxycodone 5. Have you had previous spinal surgery for this same symptoms? Yes If YES please ask for the name of facility/address of where the surgery was completed: 2001 [facility] or Cannot recall Additional Comments documented in this encounter [facility] 04-19-2024 Note HNO ID: [id number] Author: ?, ?, ? Service: ? Author Type: ? Type: Progress Notes Filed: 04/24/2024 16:54 Note Text: Patient name: Rigo Jefferson Are you being referred by a Center for Spine Health Provider or Pain Management Provider at [facility]? No If answer is YES please schedule directly with surgeon, triage does not need to be completed. Is this a self-referral No If not, who is the Referring Provider Kevin Hernandez Is this a 2nd opinion from another spine surgeon? No Were you offered surgery? No MRI/CT/myelogram within 12 months? Yes If NO , please refer to medical spine or PCP to complete above imaging, triage does not need to be completed If YES,? please ask for the name/address of the facility where the MRI/CT/myelogram was completed: [facility] Address: [address] [place] [address] MRI/CT/myelogram viewable in Epic: No If not, please provide [phone] to fax in imaging reports for review. Also, please inform patient to hand carry imaging disc to appointment. XR (spine) within 12 months: Yes If YES,? please ask for the name/address of the facility where the XR was completed: Same Dr. Rosales's patients: Have you had previous EMG/Nerve Conduction Study, Ultrasound, or MRI for these same symptoms? If YES,? please ask for the name/address of the facility where they were completed: Requested provider (First and Last name): UN Are you interested in a virtual visit if offered? No 1. Where are you having symptoms related to this visit? LBP Hip pain (L) Leg pain (L), Numbness, tingling, burning pain, Back pain Yes Leg pain Yes Arm pain No Neck pain No 2. Are you having any of the following symptoms: Difficulty walking Yes w/ pain Numbness Yes Weakness No Trouble using your hands? No 3. Have you had any injections or physical therapy in the last 12 months? Yes If YES then please ask for the name/address of the facility where the injections and/or physical therapy was completed Injections [facility] Address: [address] [place] [address] Have you tried any other kinds of non-surgical treatments in the last 12 months? (For example: NSAIDS, muscle relaxants, analgesics, oral steroids, Chiropractor, Acupuncture): Chiropractor Meloxicam 4. Are you currently taking daily prescribed narcotic medications for your current symptoms (For example Oxycodone, Hydrocodone, Tramadol, Morphine, Other)? Yes Oxycodone 5. Have you had previous spinal surgery for this same symptoms? Yes If YES? please ask for the name of facility/address of where the surgery was completed: 2001 [facility] or Cannot recall Additional Comments [facility] 12-09-2022 Note CONSULTATION PROCEDURE DATE: 12/09/2022 PROCEDURE: [...] our patients to inform us about any bomu-nvh-djgqwwl medications or herbal remedies/nutritional supplements/alternative remedies. 2. [...] their primary care provider. [facility] 11-25-2022 Note CONSULTATION CONSULTATION DATE: 11/25/2022 [...] shoulders, bilaterally, without contrast. [facility] 09-03-2022 Note CONSULTATION CONSULTATION DATE: 09/03/2022 [...] time, unless otherwise indicated. [facility] 06-01-2022 Note CONSULTATION CONSULTATION DATE: 06/01/2022 [...] CC: Shaikh Helena M.D. [facility] 05-18-2022 Note CONSULTATION CONSULTATION DATE: 05/18/2022 [...] CC: Shaikh Helena M.D. [facility] 05-18-2022 Note CONSULTATION PROCEDURE DATE: 05/18/2022 [...] up in the office. [facility] 04-29-2022 Note CONSULTATION CONSULTATION DATE: 04/29/2022 [...] injections with Dr. Duncan. [facility] 01-27-2022 Note CONSULTATION CONSULTATION DATE: 01/27/2022 [...] Approved by: RAVINDER ANDERSEN . 02/04/2022 16:12:00 [facility] 02-12-2021 Note Send Summary: Discharge Summary Providers: Provider RoleProvider Name ReferringOnders Chuck PrimaryRequired, No Pcp AttendingAda Chuck Note Recipients: Chuck Caballero MD Discharge: Summary: [...] at Discharge: .Home Vital Signs: T PRBPSpO2 Value36.20116227/8395% Date/Time02/12 12: 12: 12: 12: 12:10 Range(35.4C - 36.4C ) (77 - 99 ) (17 - 18 ) (127 - 147 )/ (83 - 91 ) (92% - 96% ) As of 12-Feb-2021 12:10:00, patient is on 2 L/min of oxygen Date: Weight/Scale Type:Height: 12-Feb-2021 01:64244.8 kg / hpmtoruh642.8 cm Hospital Course: 60 yo male with [...] Call to Schedule in: 2 weeks Location: [address] [place] [address] Discharge Medications: Home Medication clarithromycin 250 mg [...] documented in the note. Electronic Signatures: Jesusita FaithDO (Resident)) (Signed 12-Feb-2021 17:35) Authored: Send Summary, Summary Content, Ongoing Care, Note Completion Chuck Caballero) (Signed 13-Feb-2021 10:13) Authored: Note Completion Co-Signer: Send Summary, Summary Content, Ongoing Care, Note Completion Last Updated: 13-Feb-2021 10:13 by Chuck Caballero) [facility] 02-11-2021 Note Post Operative Note: PreOp Diagnosis: diaphragm paralysis Post-Procedure Diagnosis: same Procedure: 1. laparoscopic L diaphragm plication 2. removal of bilateral diaphragm pacing wires 3. L pigtail chest tube placement Surgeon: Dr Chuck Caballero Resident/Fellow/Other [employer] Routeman: Dr Saw Yo Anesthesia: GETA Estimated Blood [...] Last Updated: 12-Feb-2021 07:53 by Chuck Caballero) [facility] 02-11-2021 Note History & Physical [...] discharge plan. Electronic Signatures: Chuck Caballero) (Signed 11-Feb-2021 15:50) Authored: History & Physical Reviewed, ERAS, Consent, Note Completion Last Updated: 11-Feb-2021 15:50 by Chuck Caballero) [facility] Chief complaint Narrative - Reported An interactive audio and video telecommunication system which permits real time communications between the patient (at the originating site) and provider (at the distant site) was utilized to provide this telehealth service.Post op [address] Work Phone: Evaluation note Constitutional: Well developed, awake/alert/oriented x3, no distress, alert and cooperativeSkin: warm and dryEyes: PERRL, EOMI, clear scleraENMT: MMMHead/Neck: NCATRespiratory/Thorax: good chest expansion, thorax symmetricCardiovascular: RRRGastrointestinal: Nondistended, soft, non-tender, no rebound tenderness or guardingMusculoskeletal: moves all extremitiesExtremities: well perfusedNeurological: grossly intactPsychological: Appropriate mood and behavior [facility] Evaluation note Diagnosis Spinal stenosis of lumbar region with neurogenic claudication- Primary Spinal stenosis, lumbar region, with neurogenic claudication [facility]* He is status post diaphragm plication. This was done after he had failure for diaphragm pacing. He feels his breathing is better. He is having no pain. * He is improving after the diaphragm plication after a 2-year attempt with diaphragm pacing. 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 He is increasing his walking. I discussedwith him he can start golfing. He will obtain a chest x-ray locally in the next month. He is also we lcome to come back for another chest x-ray. We discussed whether or not he wants to follow-up with a french translator in our system. [address] Work Phone: Hospital Discharge instructions* Call Provider If:Breathing harder than normal or having retractions. Temperature is greater than 102 degrees. Chills. Drinking less than normal. Urinating less than normal, over 1 day. Acting very sleepy and difficult to awaken. Vomiting (throwing up) and not able to eat or drink for 12 hours. Any new concerning symptoms. * Follow Up Appointment 1:Physician/Dept/Service: Your PCPReason for Referral: hospital follow-upCallto Schedule in: 1 week * Follow Up Appointment 2:Physician/Dept/Service: Dr. Caballero - surgeryReason for Referral: hospital follow-up / diaphragm pacer removal, hemidiaphragm plicationLocation: [address] [address] Number: [phone] * Gold Form - Other Clinicians:Other Clinician Instructions: Please take your medications as directed. Please follow-up with Dr. Caballero and with your PCP as directed. You may remove dressings and shower Tuesday. No heavy lifting >20lbs or strenours activity for 3 weeks. If your symptoms return orworsen, please seek medical attention. Thank you for allowing us to participate in your care. [facility] (n[facility])* Diagnostic Procedure Only (Routine) - New Request Specialty Diagnoses / Procedures Referred By Contac t Referred To Contact XR IMAGING Diagnoses Spinal stenosis of lumbar region with neurogenic claudication Procedures XR LUMBAR MOTION 4V AP/LAT/ FLEX/EXT RADEX SPINE LUMBOSACRAL MINIMUM 4 VIEWS Michelle Florentino APRN.CNP [address] [place] [address] [place] [address] Referral ID Status Reason Start Date Expiration Date Visits Requested Visits Authorized [id number] New Request Auto-Generat ed Referral 04/24/2024 05/24/2025 1 1 [facility] Family History No Family History Records [...] DATE CREATED AUTHOR AUTHOR'S ORGANIZ ATION 04/08/2021 [facility] DATE CREATED AUTHOR AUTHOR'S ORGANIZ ATION 12/31/2022 [facility] pital DATE CREATED AUTHOR AUTHOR'S ORGANIZ ATION 01/31/2024 [facility] dical [facility] EPIC DATE CREATED AUTHOR AUTHOR'S ORGANIZ ATION 04/26/2024 [facility] Source Comments (unrecognize d section and content) In the event this informatio n is protected by the Federal Confidentiality of Alcohol and Drug Abuse Patient Records regulations: The Federal rules restrict any use of the information to criminally investigate or prosecute any alcohol or drug abuse patient.[facility] Care Teams (unrecognized sec tion and content) 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 [facility] [employer] [facility]. provides no warranty or guarantee of the accuracy or completeness of information in this document.
--- NOTE | 2024-05-09 11:35 | P.CN_ITS ---
Consult Note: HPI Data of Consult Patient: known to practice within the last 3 years Requesting Physician: Sho Galdamez NP Primary Care Provider: Shaikh Helena MD Consult Narrative Reason for consult: f/u Narrative: Ryan Pete a pleasant 63 year old male presents for evaluation of chronic pain. Today pain 3/10 in low back, ache worse with activity. increases to 8/10 at its worst. Pain increased with twisting, pushing, pulling, standing, lifting, activity. Pain improved mildly with TENS, mobic 15mg daily, lidocaine patches, baclofen, and percocet 5-325mg QID PRN. Patient denies side effects. denies loss of bowel or bladder. Recently underwent L4/5 GLORY with >90% improvement ongoing. Patient would like to discuss chronic left knee pain secondary to OA, pain 3/10 constant increasing to 8/10 with standing too long walking, improved with swimming. cc:: CC: Sho Galdamez NP Review of Systems ROS Status of ROS 10 or more systems reviewed and unremark able except as noted in history and below Musculoskeletal Reports: back pain and joint pain PFSH PFSH Medical History (Updated 05/09/24 @ 11:38 by Sho Galdamez NP) COPD (chronic obstructive pulmonary disease) ?J44.9 - Chronic obstructive pulmonary disease, unspecified (ICD-10) Rheumatoid arthritis ?M06.9 - Rheumatoid arthritis, unspecified (ICD-10) Upper back pain ?M54.9 - Dorsalgia, unspecified (ICD-10) Low back pain ?M54.50 - Low back pain, unspecified (ICD-10) Uses continuous positive airway pressure (CPAP) ventilation at home ?Z99.89 - Dependence on other enabling machines and devices (ICD-10) Emphysema lung ?J43.9 - Emphysema, unspecified (ICD-10) Hypertension ?I10 - Essential (primary) hypertension (ICD-10) Surgical History Hx of cholecystectomy ?Z90.49 - Acquired absence of other specified parts of digestive tract (ICD- 10) H/O cardiac catheterization ?Z98.890 - Other specified postprocedural states (ICD-10) H/O heart bypass surgery ?Z95.1 - Presence of aortocoronary bypass graft (ICD-10) History of lung surgery ?Z98.890 - Other specified postprocedural states (ICD-10) History of tonsillectomy ?Z90.89 - Acquired absence of other organs (ICD-10) H/O cervical spine surgery ?Z98.890 - Other specified postprocedural states (ICD-10) H/O carpal tunnel repair ?Z98.890 - Other specified postprocedural states (ICD-10) H/O arthroscopy of knee ?Z98.890 - Other specified postprocedural states (ICD-10) Meds Home Medications and Allergies Home Medications ?Medication ?Instructions ?Recorded ?Confirmed ?Type atorvastatin 40 mg tablet (Lipitor) 40 mg PO DAILY 02/17/23 04/24/24 History baclofen 10 mg tablet 10 mg PO BID 02/17/23 04/24/24 History lidocaine 5 % topical patch 1 patch topical DAILY 02/17/23 04/24/24 History (Lidoderm) testosterone enanthate 50 mg/0.5 50 mg subcut QWEEK 12/13/23 04/24/24 History mL subcutaneous auto-injector (Xyosted) ibuprofen 200 mg tablet 800 mg PO TID PRN pain 12/20/23 04/24/24 History oxycodone-acetaminophen 5 mg-325 1 tab PO QID PRN pain #120 tabs 03/19/24 04/24/24 Rx mg tablet (Percocet) cetirizine 10 mg tablet (Zyrtec) 10 mg PO BID PRN allergy symptoms 03/28/24 04/24/24 History montelukast 10 mg tablet 10 mg PO DAILY 03/28/24 04/24/24 History (Singulair) oxycodone-acetaminophen 5 mg-325 1 tab PO QID PRN pain #120 tabs 04/12/24 04/24/24 Rx mg tablet (Percocet) meloxicam 15 mg tablet mg 04/24/24 History oxycodone-acetaminophen 5 mg-325 1 tab PO QID PRN pain #120 tabs 05/09/24 Rx mg tablet (Percocet) Allergies Allergy/AdvReac Type Severity Reaction Status Date / Time No Known Drug Allergies Allergy Verified 04/24/24 08:33 Exam Constitutional Documenting provider has reviewed patient's vital signs: yes Common normals: no apparent distress, oriented x3, healthy appearing, alert and well nourished General appearance: cooperative HENMT Common normals: normocephalic, hearing grossly normal bilaterally and moist oral mucous membranes Head and scalp: normocephalic Eye Common normals: PERRL Pupil: PERRL Neck & C-Spine Common normals: full ROM General: normal visual inspection Chest Common normals: inspection of chest normal Respiratory Common normals: normal respiratory effort, no retractions and no use of accessory muscles Back & Pelvis Lumbar spine/lower back: ROM limited, pain with ROM and straight leg raise negative bilaterally Sacroiliac joints: SI joints normal Other: sensation intact BLE strength 5/5 in BLE mildly positive facet loading Extremity Common normals: normal to inspection Right lower extremity: hip joint and knee joint Left lower extremity: hip joint Other: left hip: no pain with internal and external rotation right hip: mild to moderate pain with internal and external rotation left knee enlarged diameter, mild edema, pain with medial and lateral stress testing, crepitus noted on exam Neuro Common normals: oriented x3, CN's II-XII intact bilaterally, moves all extremities, no focal motor deficits, no sensory deficits noted and deep tendon reflexes 2+ bilaterally Sensorium/orientation: alert Gait (neuro): antalgic Motor exam: strength 5/5 throughout and no movement abnormalities noted Psych Common normals: mental status grossly normal, thought process normal, cooperative, affect normal, speech normal and activity/motor behavior normal Speech: normal speech Thought process: normal thought process Results Additional Findings Additional findings: If on a controlled substance or opioids, I have checked an [place]AR[place] report on this patient and there are no aberrancies noted in the prescribing history.??If on a controlled substance or opioid a drug screen was completed and reviewed within the last year, and if there has not been a drug screen completed we ordered one today to monitor higher risk, state monitored pain medication use. As part of providing excellent, safe, comprehensive care, the following was completed at our patient's visit: 1. A medication reconciliation and review to ensure accurate knowledge of current/active medications, including asking our patients to inform us about any [id number] medications or herbal remedies/nutritional supplements/alternative remedies. 2. A review to specifically ensure our patients have had annual screening for screening for depression, screening for tobacco use, and screening for unhealthy alcohol use. For concerning screenings had a discussion with the patient, provided patient education, and recommended follow-up with primary care provider when appropriate. If patient noted with a risk of falling, they received education on strength, gait, and balance training to prevent future risk of falling. Assessment and Plan Assessment and Plan (1) Osteoarthritis of left knee: (2) Lumbar stenosis with neurogenic claudication: (3) Lumbar degenerative disc disease: (4) Lumbar radiculopathy: (5) Osteoarthritis of left hip: (6) Left knee pain: (7) Bilateral hip pain: (8) Encounter for long-term opiate analgesic use: (9) Lumbar spondylosis: (10) Osteoarthritis: (11) Muscle spasm: Plan left knee injection under fluoroscopy for chronic left knee pain secondary to OA unresponsive to rest, ice, NSAIDs, and above listed medications change meloxicam to 7.5mg BID, finds significant benefit for 6 hours from meloxicam 15mg am without side effects. 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
== END 2024-05-09 11:04 | disposition home or self-care (01) ==
PROVIDERS: PCP Internal Medicine; Visit Provider Nurse Practitioner
DX: M17.12 Unilateral primary osteoarthritis, left knee (principal); M48.062 Spinal stenosis, lumbar region with neurogenic claudication; M51.36 Other intervertebral disc degeneration, lumbar region; M54.16 Radiculopathy, lumbar region; M16.12 Unilateral primary osteoarthritis, left hip; M25.562 Pain in left knee; M25.551 Pain in right hip; M25.552 Pain in left hip; Z79.891 Long term (current) use of opiate analgesic; M47.816 Spondylosis without myelopathy or radiculopathy, lumbar region; M62.838 Other muscle spasm
CPT/HCPCS: G0463

== ENCOUNTER 2024-05-22 07:20 | Day surgery (SDC) | payer OTHER, SELFPAY ==
--- OUTSIDE RECORDS SUMMARY | 2024-05-22 07:23 | XMS_ITS | CCD ---
Author Organization [facility] Care Team Providers Care Veterinary Laboratory Diagnostician Name Role Phone Chandan Cool Unavailable Unavailable Sid Ac Unavailable Unavailable Required, No Pcp Unavailable Unavailable Chuck Caballero Unavailable None, No PCP Unavailable Unavailable [facility], [facility] Primary Care Unavailable EMILY, DR RADHA Gaxiola Consulting Unavailable DUNCAN ., DR LLUVIA Sheldon Attending Unavailable DUNCAN ., DR LLUVIA Sheldon Admitting Unavailable DUNCAN ., DR LLUVIA Sheldon Consulting Unavailable [facility], [facility] Primary Care Unavailable DUNCAN ., DR LLUVIA Sheldon Attending Unavailable DUNCAN ., DR LLUVIA Sheldon Consulting Unavailable DUNCAN ., DR LLUVIA Sheldon Admitting Unavailable [facility], [facility] Primary Care Unavailable DUNCAN ., DR LLUVIA Sheldon Attending Unavailable DUNCAN ., DR LLUVIA Sheldon Consulting Unavailable DUNCAN ., DR LLUVIA Sheldon Admitting Unavailable [facility], [facility] Primary Care Unavailable ANDERSEN .RAVINDER Consulting Unavailable UDNCAN ., DR LLUVIA Sheldon Admitting Unavailable DUNCAN ., DR LLUVIA Sheldon Attending Unavailable [facility] Primary Care Unavailable ANDERSEN .RAVINDER Consulting Unavailable DUNCAN ., DR LLUVIA Sheldon Admitting Unavailable DUNCAN ., DR LLUVIA Sheldon Attending Unavailable [facility], [facility] Primary Care Unavailable LAKSHMIPATHY ., NARENDRANATH Attending Nadira vailable LAKSHMIPATHY ., NARENDRANATH Admitting Nadira vailable [facility], [facility] Primary Care Unavailable LAKSHMIPATHY ., NARENDRANATH Attending Nadira vailable LAKSHMIPATHY ., NARENDRANATH Consulting Nadira vailable LAKSHMIPATHY ., NARENDRANATH Admitting Nadira vailable [facility], [facility] Primary Care Unavailable LAKSHMIPATHY ., NARENDRANATH Consulting Nadira vailable LAKSHMIPATHY ., NARENDRANATH Admitting Nadira vailable LAKSHMIPATHY ., MONIQUEATH Attending Nadira vailable HELENA, COREAS H Primary Care Unavailable NATHALY .RAVINDER Consulting Unavailable CUCO ., DR LLUVIA Sheldon Attending Unavailable DUNCAN ., DR LLUVIA Sheldon Admitting Unavailable [facility], COREAS H Primary Care Unavailable LAKSHMIPATHY ., NARROXANA Attending Nadira vailable RINA, DR DOMINGA William Consulting Unavailable LAKSHMIPATHY ., NARENDRANATH Admitting Nadira vailable LAKSHMIPATHY ., NARENDEMERYATH Consulting Nadira vailable ITZKOWIBONI, JONATHAN H Attending Unavailable ITZBUTCH, JONATHAN Enriquez Attending Unavailable FAWDAMI, Attending Unavailable FAWDAMI, COREAS Attending Unavailable FAWDAMI, Attending Unavailable FAWDAMI, Attending Unavailable Tonny Hernandez MD Unavailable ELIAS SPAULDING Attending Unavailable Medications Current Medications Medication Drug [...] day Quantity: 0 Refills: 0 Ordered: 11-Feb-2021 Chidi Annannah Generic Substitution Allowed famotidine 20 mg oral [...] Hypertensive disorder; Translations: [Unspecified essential hypertension] Chronic Hypertension with complications and secondary hypertension (2 sources) Hypertensive heart disease without heart failure; Translations: [Hypertensive heart disease without heart failure] Onset: 05-14-2024 Chronic Osteoarthritis (7 sources) Primary osteoarthritis, left [...] diaphragm; Translations: [Disorders of diaphragm] Episodic Other lower respiratory disease (2 sources) Other forms of dyspnea; Translations: [Other forms of dyspnea] Onset: 05-14-2024 Episodic Other nervous system disorders (6 sources) [...] Test Name Value Interpretation Reference Range Facility Office Visiton 05-14-2024 Follow-up visit [id number] Rigo Jefferson 1960 M Date Provider Department Center 05/14/2024 [id number]-BTMRULELIAS SPAULDING CARD [facility] Family History Problem Relation Age of Onset Diabetes Mother Hypertension Mother Hypertension Father Coronary artery disease Brother Hypertension Brother Diabetes Brother Family Status - Relation Status Age at Mother Father Brother Level of Service:11956 RI OFFICE/OUTPATIENT NEW MODERATE MDM 45 MINUTES Reason for Visit and Comments: Hypertension [157552] - New patient to re-establish care. Ref for hypertension. Used to be on antihypertensives but is currently on none. Palpitations [415947] - Sometimes Shortness of Breath [710845] - Has 1 lung, hx of COPD, pulmonary emphysema Dizziness [736404] Normal [facility] MRI SHOULDER LT WO CONon MRI SHOULDER [...] by: DOMINGA FLYNN Date: 2022-12-08 10:25 Normal [facility] MRI SHOULDER RT WO CONon MRI [...] by: DOMINGA FLYNN Date: 2022-12-08 10:35 Normal [facility] XR CSPINE OBL FLEX_EXTon XR CSPINE [...] by: RADHA DIAZ Date: 2022-05-31 20:33 Normal [facility] Post Op (General Surgery)on 04-02-2021 Post [...] not he wants to follow-up with a regional transfer liaison in our system. Provider Impressions He is [...] not he wants to follow-up with a regional transfer liaison in our system. Chief Complaint An interactive [...] not he wants to follow-up with a regional transfer liaison in our system. Active Problems COPD (chronic [...] MG Oral Tablet Results/Data Xray Chest 1 [id number] 04:27PMJesusita Faith Test NameResultFlagReference Xray Chest 1 View(Report) FINAL REPORT Interpreted by: МАРИНА MARCELO MD 02/12/21 16:52 Patient Name: RIGO JEFFERSON STUDY: CHEST 1 VIEW; 02/12/2021 4:27 pm INDICATION: chest tube removal. COMPARISON: Prior 11:07 a.m. radiograph. ACCESSION NUMBER(S): [id number] ORDERING CLINICIAN: JESUSITA FAITH FINDINGS: Left basilar [...] Apr 02 2021 5:38PM EST (Author) Normal [facility] Admission Risk Screen - Adul ton 02-12-2021 Admission Risk Screen - Adult Allergies: Allergies: No Known Allergies: Patient Verification: New W ID Band Applied in my Departmentno Type of ID Patient is WearingW wristband, but not applied here Patient Transferred from Other Facility ([facility], [facility],etc)no Patient Identity Verified Bypatient ID Band FULL [...] AlertFor Ebola-like Symptoms: Isolate Patient and Notify Provider/Steam Brush Operator For Contact: Notify Provider/Steam Brush Operator Advance Directive: Advance Directive/DNRno (1) Advance Directive [...] Learning Preferencesverbal instruction Cultural Considerationsnone Developmental Considerationsnone Faith Considerationsnone Learning Assessment (Other Learner): Other learner availableno Depression Screen: During the past month, have you often been bothered by feeling down, depressed or hopelessno (1) During the past month, have you often had little interest or pleasure in doing thingsno (1) Have you had any thoughts of harming anyone elseno (1) [place] Suicide: Risk Screen Not Applicable/Able to Answerable to be screened In the Past Month: Have you wished you were or could go to sleep and not wake upno(1) In the Past Month: Have you had any actual thoughts of killing yourself no(1) Lifetime: Have you ever done, started to do, or prepared to do anything to end your lifeno(1) [place] Suicide Risknegative Adult Nutrition Screen: Have you [...] Pain (nonverbal)verbalization (more content not included)... Normal [facility] BASIC METABOLIC PANELon 06--2020 Anion gap [Moles/Vol] 15 mmol/L Normal 10 - 20 [facility] Comment on above: Performed By: #### B MP #### [facility] [address] [place] [address] Calcium [Mass/Vol] 9.5 mg/dL Normal 8.6 - 10.6 [facility] Comment on above: Performed By: #### B MP #### [facility] [address] [place] [address] Chloride [Moles/Vol] 102 mmol/L Normal 98 - 107 [facility] Comment on above: Performed By: #### B MP #### [facility] [address] [place] [address] Creatinine [Mass/Vol] 0.98 mg/dL Normal 0.50 - 1.30 [facility] Comment on above: Performed By: #### B MP #### [facility] [address] [place] [address] GFR- AM. >60 Normal >60 [facility] Comment on above: Result Comment: CALC ULATIONS OF ESTIMATED GFR ARE PERFORMED USING THE MDRD STUDY EQUATION FOR THE IDMS-TRACEABLE CREATININE METHODS. CLIN CHEM 2007;53:766-72 Performed By: #### B MP #### [facility] [address] [place] [address] GFR-NON AM. >60 Normal >60 [facility] Comment on above: Performed By: #### B MP #### [facility] [address] [place] [address] Glucose [Mass/Vol] 133 mg/dL High 74 - 99 [facility] Comment on above: Performed By: #### B MP #### [facility] [address] [place] [address] HCO3 (Bld) [Moles/Vol] 24 mmol/L Normal 21 - 32 [facility] Comment on above: Performed By: #### B MP #### [facility] [address] [place] [address] Potassium [Moles/Vol] 4.3 mmol/L Normal 3.5 - 5.3 [facility] Comment on above: Performed By: #### B MP #### [facility] [address] [place] [address] Sodium [Moles/Vol] 137 mmol/L Normal 136 - 145 [facility] Comment on above: Performed By: #### B MP #### [facility] [address] [place] [address] Urea nitrogen [Mass/Vol] 17 mg/dL Normal 6 - 23 [facility] Comment on above: Performed By: #### B MP #### [facility] [address] [place] [address] CBCon 02-12-2021 Erythrocyte distribution width (RBC) [Ratio] 12.1 % Normal 11.5 - 14.5 [facility] Comment on above: Performed By: #### C BC #### [facility] [address] [place] [address] Hematocrit (Bld) [Volume fraction] 45.8 % Normal 41.0 - 52.0 [facility] Comment on above: Performed By: #### C BC #### [facility] [address] [place] [address] Hemoglobin (Bld) [Mass/Vol] 15.0 g/dL Normal 13.5 - 17.5 [facility] Comment on above: Performed By: #### C BC #### [facility] [address] [place] [address] MCHC (RBC) [Mass/Vol] 32.8 g/dL Normal 32.0 - 36.0 [facility] Comment on above: Performed By: #### C BC #### [facility] [address] [place] [address] MCV (RBC) [Entitic vol] 94 fL Normal 80 - 100 [facility] Comment on above: Performed By: #### C BC #### [facility] [address] [place] [address] NUCLEATED RBC 0.0 /100 WBC Normal 0.0-0.0 [facility] Comment on above: Performed By: #### C BC #### [facility] [address] [place] [address] Platelets (Bld) [#/Vol] 228 10*3/uL Normal 150 - 450 [facility] Comment on above: Performed By: #### C BC #### [facility] [address] [place] [address] RBC 4.85 x10E12/L Normal 4.50 - 5.90 [facility] Comment on above: Performed By: #### C BC #### [facility] [address] [place] [address] WBC (Bld) [#/Vol] 12.8 10*3/uL High 4.4 - 11.3 [facility] Comment on above: Performed By: #### C BC #### [facility] [address] [place] [address] Clinical Event Note-POCon Clinical Event Note-POC Clinical [...] [place] resident overnight Electronic Signatures: Nataliia Ferris (Resident)) (Signed 12-Feb-2021 00:41) Authored: Clinical Event Note Last Updated: 12-Feb-2021 00:41 by Nataliia Ferris (Resident)) Normal [facility] Daily Progress Note-Surgeryo n 02-12-2021 [...] yet. Objective Data: Objective Information: T PRBPSpO2 [id number]/8695% Date/Time02/12 6: 6:4902/12 6:4902/12 6:4902/12 6:49 Range(35.4C - 36.4C ) (77 - 99 ) (17 - 18 ) (127 - 147 )/ (86 - 91 ) (95% - 96% ) Pain reported at 02/12 2:54: 6 = Moderate ---- Intake and Output ----- Mn/Dy/Year TimeIntakeOutputNet Feb 12, 2021 6:00 [id number] Feb 11, 2021 10:00 [id number] The Intake and Output Totals for the last 24 hours are: IntakeOutputNet [id number] Physical Exam by System: Constitutional: Well developed, [...] Electronic Signatures: Jesusita Faith (Resident)) (Signed 12-Feb-2021 10:38) Authored: Service, Subjective Data, Objective Data, Assessment and Plan, Note Completion Chuck Caballero) (Signed 13-Feb-2021 10:13) Authored: Note Completion Co-Signer: Service, Subjective Data, Objective Data, Assessment and Plan, Note Completion Last Updated: 13-Feb-2021 10:13 by Chuck Caballero) Normal [facility] Discharge Planning [id number] 0 02-12-2021 Discharge Planning Note2 Discharge Planning: Needs Prior to Discharge (ex. Home Care Orders, IV/O2 prescriptions) Follow up appointments Discharge Barriers (ex. Avoidable days, wait guardianship, pt refuse leave) None Planned Dispositionhome Discharge DestinationHome [facility] < 20no Hulbert of Choice Explainedyes preference Anticipated Discharge [id number] Discharge Planning 02/12/2021 0135 Discharge Plan Patient transferred from [place] [address] from PACU for diaphragm plication. Pt is A&O times 4. at 3 liters oxygen. Pt denies any director medical affairs use at home. 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 Pt have valuable belongings [...] disposition: Home Potential Barriers: none ADOD: 02/12. dye and chemical coordinator will continue to follow for discharge planning needs. Franny Gilliam RN, Transitional Laboratory Helper/TCC, pager [phone] Discharge note: 02/12/21 @ 1735: PT discharged home at this time. pts peripheral IV taken out prior to DC. pt given DC instructions. pt verbalized understanding. pt refused transport and walked downstairs with his son.---Erika stock RN Assessment: Discharge Planning Assessment [id number] Primary Contact Name and NumberAdam [phone](1) Stated Reason for Admissiondiaphragm plication(2) Arrived FromOR (2) Lives Withparent(s)(2) Living Arrangementshouse(2) Resource/Environmental Concernsnone(2) Anticipated Transition Tohome(2) Services Anticipated at Transitionnone(2) Discharge Documentation: Discharge/Transfer Date/Qhug23-Gwl-2123 17:35 Discharge Modeambulatory Discharged Accompanied Byfamily member [...] Profile - Adult v2 12-Feb-2021 01:31 Normal [facility] Discharge Ktoauik5or 021 Discharge Profile2 Discharge Orders: Anticipated Discharge Date: Anticipated Discharge [id number] DNAR: DNAR Status: none Call Provider If [...] to Schedule in1 week Follow-Up Appointment 02: Physician/Ghassant/ServiceDr. Caballero - surgery Reason for Referralhospital follow-up / diaphragm pacer removal, hemidiaphragm plication Call to Schedule in2 weeks [id number] [place] [address] Phone [phone] Other Clinician Instructions: Other Instructions: Other Clinician [...] in your care. Electronic Signatures: Jesusita Faith (DO (Resident)) (Signed 12-Feb-2021 15:27) Authored: Discharge Orders, Provider FINAL REVIEW of Orders, Appointments, Other Clinician Instructions, Gold Form - Enterprise Systems Manager Summary Last Updated: 12-Feb-2021 15:27 by Jesusita Faith (DO (Resident)) Normal [facility] Laboratory - Chemistry and C hemistry - challengeon 02-12-2021 Anion gap [Moles/Vol] 15 mmol/L 10 - 20 QY-Tekttuv-T [address] Work Phone: Calcium [Mass/Vol] 9.5 mg/dL 8.6 - 10.6 MG-Tino raysa[facility] [place] [address] Work Phone: Chloride [Moles/Vol] 102 mmol/L 98 - 107 BT-Gshregu-J [address] Work Phone: CO2 [Moles/Vol] 24 mmol/L 21 - 32 MG-Surger y-[facility] Work Phone: Creatinine [Mass/Vol] 0.98 mg/dL See Below SK-Ptjnzfp-Y [address] [facility] Work Phone: Comment on above: Reference Range: 0.5 0 - 1.30 Glucose [Mass/Vol] 133 mg/dL above high threshold 74 - 99 QP-Rnjbxhq-I [address] Work Phone: Potassium [Moles/Vol] 4.3 mmol/L 3.5 - 5.3 RO-Ieytmix-V [address] Work Phone: Sodium [Moles/Vol] 137 mmol/L 136 - 145 MG-Tino raysa-[facility] [address] Work Phone: Urea nitrogen [Mass/Vol] 17 mg/dL 6 - 23 JZ-Onndjvt-B [address] [facility] Work Phone: Laboratory - Hematology and Cell countson 02-12-2021 Erythrocyte distribution width (RBC) [Ratio] 12.1 % See Below OA-Zwqdipc-F [address] Work Phone: Comment on above: Reference Range: 11. 5 - 14.5 Hematocrit (Bld) [Volume fraction] 45.8 % See Below PI-Iueccdd-N [address] Work Phone: Comment on above: Reference Range: 41. 0 - 52.0 Hemoglobin (Bld) [Mass/Vol] 15.0 g/dL See Below KI-Dtcanle-L [address] [facility] Work Phone: Comment on above: Reference Range: 13. 5 - 17.5 MCHC (RBC) [Mass/Vol] 32.8 g/dL See Below TS-Morkojr-Q [address] pinnacle-ecs [facility] Work Phone: Comment on above: Reference Range: 32. 0 - 36.0 MCV (RBC) [Entitic vol] 94 fL 80 - 100 JU-Wvvonbw-I [address] pinnacle-ecs [facility] Work Phone: Platelets (Bld) [#/Vol] 228 10*3/uL 150 - 450 PY-Uisbvok-E [address] [facility]-ecs Work Phone: RBC (Bld) [#/Vol] 4.85 {x10E12/L} See Below MG -Surgery-G [address] [facility] Work Phone: Comment on above: Reference Range: 4.5 0 - 5.90 WBC (Bld) [#/Vol] 12.8 10*3/uL above high threshold 4.4 - 11.3 OZ-Xwuphry-F Att[address] pinnacle-ecs [facility] Work Phone: No Panel Informationon 02-12 >60 >60 TQ-Ejhopeu-D [address] [facility] Work Phone: Comment on above: CALCULATIONS OF LANRE MATED GFR ARE PERFORMED USING THE MDRD STUDY EQUATION FOR THE IDMS-TRACEABLE CREATININE METHODS. CLIN CHEM 2007;53:766-72 0.0 {/100_WBC} 0.0-0.0 MG-Surgery -[place] [address] Work Phone: Order Reconciliationon 02-12 Order Reconciliation [...] tab(s) orally 2 times a day Normal [facility] Patient Profile - Adult v2on 02-12-2021 Patient Profile - Adult v2 Profile: Initial Info: How to be AddressedDel(1) Spoken Language PreferredEnglish (1) Stated Reason for Admissiondiaphragm plication Patient Belongingsremains with patient Patient Belongings Remaining with Patientcash/credit card; clothing Arrived FromOR Medications Brought to Hospitalno Are you currently using the Personal Electronic Health Record or Startupino (1) Wants Family/Rep Notified of Admissionyes, primary contact Notify PCPnotify PCP Informed of Patient Visiting Rightsyes General Health: Blood Avoidance/Restrictionsnone (1) Previous Transfusion Reactionno(2) Weight in kg109.8 kilogram(s)(3) Weight in zyh880 pound(s) Weight Methodactual (measured) (3) Scale Typestanding [...] Arrangementshouse Services Anticipated at Transitionnone [facility]ipated [facility] Significant IndicatorsComplete Information Review: Allergies, Home Meds [...] 12-Feb-2021 01:34) Authored: Initial Info, General Health, [facility] Based Care, Substance, Health Mgmt, Relationship/Environ, Additional Information Last Updated: 12-Feb-2021 01:34 by Mary Beth Holcomb (RN) References: 1. Data Referenced From Patient Profile - Preop v2 11-Feb-2021 12:02 2. Data Referenced From Patient Profile - Adult v2 12-Dec-2017 16:00 3. Data Referenced From 1. Vital Signs 11-Feb-2021 12:02 Normal [facility] Radiologyon 02-12-2021 XR Chest Single view Normal BF-Syurxsu-[facility] [address] Work Phone: XR Chest Single view Normal GP-Qtbdcjv-B [address] Work Phone: XR Chest Single view Normal IT-Hyllkzu-E [facility] Work Phone: TH CHEST 1 VIEWon 02-12-2021 TH CHEST 1 VIEW Patient Name: RIGO JEFFRESON STUDY: CHEST 1 VIEW; 02/12/2021 4:27 pm INDICATION: chest tube removal. COMPARISON: Prior 11:07 a.m. radiograph. ACCESSION NUMBER(S): [id number] ORDERING CLINICIAN: JESUSITA FAITH FINDINGS: Left basilar [...] Electronically signed by: МАРИНА MARCELO MD Normal [facility] CHEST 1 VIEW Patient Name: RIGO JEFFERSON STUDY: CHEST 1 VIEW; 02/12/2021 11:58 am INDICATION: chest tube wet seal. COMPARISON: 7:02 a.m. radiograph. ACCESSION NUMBER(S): [id number] ORDERING CLINICIAN: JESUSITA FAITH FINDINGS: Left basilar [...] Electronically signed by: МАРИНА MARCELO MD Normal [facility] CHEST 1 VIEW Patient Name: RIGO JEFFERSON STUDY: CHEST 1 VIEW; 02/12/2021 7:13 am INDICATION: POD 1 s/p diaphragm plication. COMPARISON: 02/11/2021. ACCESSION NUMBER(S): [id number] ORDERING CLINICIAN: SAW YO FINDINGS: Left basilar [...] Electronically signed by: МАРИНА MARCELO MD Normal [facility] No Panel Informationon 02-11 DR[place]Revwxfn[place] [address] Work Phone: Operative Reports - [facility] [place] [address] Patient Name: RIGO JEFFERSON : 1960 Date of Service: 02/11/2021 Patient Location: [place] [address] [id number] Patient Type: I Surgeon: Chuck Caballero MD Report Type: Operative Reports PREOPERATIVE DIAGNOSIS: Chronic respiratory failure, left diaphragm dysfunction. POSTOPERATIVE DIAGNOSIS: Chronic respiratory failure, left diaphragm dysfunction. OPERATION/PROCEDURE: Laparoscopic left diaphragm plication with removal of previous diaphragm pacing wires. SURGEON: Chuck Caballero MD AQUATIC SCIENTIST(S): Saw Yo MD. There was no available resident. ANESTHESIA: LOCATION: [facility]. CLINICAL NOTE: This is a [...] TT: 02/12/2021 12:44 PM EST DICTATION NUMBER: [id number] BRIE JOB NUMBER: [id number] CC: PT STATES NONE PCP Electronic Signatures: Chuck Caballero) (Signed on 13-Feb-2021 10:15) Authored Unsigned, Draft (SYS GENERATED) (Entered on 12-Feb-2021 12:44) Entered Last Updated: 13-Feb-2021 10:15 by Chuck Caballero) Normal [facility] Order Reconciliationon 02-11 Order Reconciliation Page 1 Admission Reconciliation Document Reconciliation Type: Admission from OR requested on behalf of Saw Yo (Physician) done by Saw Yo) Admission from OR - Reconciliation: 11-Feb-2021 18:31 by: Saw Yo) Home MedicationsEnteredLast Dose TakenReconciled with current Order Reconciliation Comment/ Additional Information [place] 24 Hour Allergy oral tablet 1 tab(s) orally once a jxn50-Now-113611-Feb-2021 AM Reviewed and Held clarithromycin 250 mg oral tablet 250 milligram(s) orally once a day Clarithromycin Tablet (BIAXIN)DOSE = 250 mg Oral Every 24 Hoursclarithromycin 250 mg oral tablet continued as the inpatient order Clarithromycin diclofenac sodium 50 mg oral delayed release tablet 1 tab(s) orally 2 times a [id number]-Ddf-9306 AM Reviewed and Held oxycodone-acetaminophen 5 mg-300 mg oral tablet 1 tab(s) orally 2 times a day [id number]-7415 AM Reviewed and Held Additional Current Orders [...] 15 minute(s)Clinician Notes: Carlota-operative order ONLY Normal [facility] Patient Profile - Preop v2on 02-11-2021 Patient Profile - Preop v2 Profile: Initial Info: How to be AddressedDel(1) Spoken Language PreferredEnglish (1) Source of Informationpatient Are you currently using the Personal Electronic Health Record or Startupino (1) Are you interested in learning more about [facility] for the management of your healthnot at this time Stated Reason for AdmissionL pulling of wires/pulling lung down [facility] [phone] Patient Belongingspatient educated regarding responsibility for personal items Medications Brought to Hospitalno General Health: Weight in kg109.8 kilogram(s) Weight in xwd015 pound(s) Weight Methodactual (measured) Scale Typestanding Height [...] Learning Preferencesverbal instruction Cultural Considerationsnone Developmental Considerationsnone Faith Considerationsnone Other learner availableno Falls RiskPatient location auto qualifies him/her for HIGH RISK. Are there any cultural, spiritual, gnosticism practices/values/needs that are important for us to knowno Pain Scalenumerical 0-10 Pain Scale Educationteaching provided Current Pain Level0 = None Acceptable Pain Level0 = None Chronic Painno Information Review: Allergies, Home Meds and Significant Events have been Reviewed and Verified with Patient/Familyyes Allergy, Intolerance, Adverse Event: Allergies: No Known Allergies: Active Electronic Signatures: Jany Ann) (Signed 11-Feb-2021 12:07) Authored: Initial Info, General Health, Health Mgmt, Relationship/Environ, Substance, Risk Screens, Additional Information Last Updated: 11-Feb-2021 12:07 by Jany Ann (RN) References: 1. Data Referenced From Patient Profile - Adult v2 12-Dec-2017 16:00 Normal [facility] Preop Checkliston 02-11-2021 Preop Checklist Preop Checklist: Preop Checklist: Arrival [id number] Arrival Time11:48 Procedure TypeL laparoscopic diaphragm plication Temperature C36.1 degrees C Temperature F96.9 degrees F Heart Rate70 beats per minute Respiratory Rate12 breath per minute Blood Pressure Kvilirzz302 mm/Hg Blood Pressure Zqoyhbwgs91 mm/Hg NPO [id number] 00:00 ID Band Onyes Allergy Bandno known [...] Communication: Language / CommunicationEnglish Electronic Signatures: Jany Ann) (Signed 11-Feb-2021 12:02) Authored: Preop Checklist Last Updated: 11-Feb-2021 12:02 by Jany Ann (ASIA) Normal [facility] Radiologyon 02-11-2021 XR Chest Single view Please click on the link to view the study images Normal [place] [address] Work Phone: [facility] Surgical Pathology Depar tmenton 02-11-2021 [facility] Surgical Pathology Department Name RIGO JEFFERSON Pathologist: JACINTO MURRIETA MD Date of Procedure: 02/11/2021 Date Received: 02/12/2021 Date Reported 02/19/2021 Submitting Physician: CHUCK CABALLERO M.D. Location: [facility] Copy To/Referring/Attending: CHUCK CABALLERO M.D. Other [...] this case. Clinical History: Physician Contact Number: [id number] Fixative (A): Fresh Clinical Diagnosis History: disorders of diaphragm Specimens Submitted As: A: PACING WIRE Gross Description: Received in formalin, labeled with the patient's name and hospital number, are multiple wires with a piece of adipose tissue attached measuring 3.0 x 1.6 x 1.0 cm. A photograph is taken. The attached soft tissue is submitted entirely in one cassette. EXB exb/02/12/2021 [facility] Department of Pathology [address] [place] [address] Normal [facility] Comment on above: Performed By: #### [facility] ####[facility] Surgical Pathology [address] [place] [address] CORONAVIRUS 2019, SCREEN ASY MPTOMATICon 02-10-2021 SARS-CoV-2 (COVID-19) RNA BECCA+probe Ql (Unsp spec) Not detected Normal Not Detected [facility] Comment on above: Result Comment: [...] patient management decisions. Fact sheet for providers: https://www.fda.gov/media/935589/download Fact sheet for patients: https://www.fda.gov/media/071386/download This test has received FDA Emergency Use Authorization (EUA) and has been verified by [facility] ([facility]). This test is only authorized for the duration of time that circumstances exist to justify the authorization of the emergency use of in vitro diagnostic tests for the detection of SARS-CoV-2 virus and/or diagnosis of COVID-19 infection under section 564(b)(1) of the Act, 21 U.S.C. 360bbb-3(b)(1), unless the authorization is terminated or revoked sooner. [facility] is certified under CLIA-88 as qualified to perform high complexity testing. Testing is performed in the [facility] laboratories located at [address] [place] [address]. Performed By: #### C OVSC #### [address] [place] [address] Covid 19 Resultson 1 SARS-CoV-2 (COVID-19) RNA [...] You may also be contacted by the [facility] to see if any of your [...] or Naproxen (Aleve) can also be used. Hpxv-rkl-xziwzcu cough and cold medicines can be used according to the instructions on the package. Some shny-byd-zhijqxp medicines also contain acetaminophen. 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 Avoid touching your eyes, nose, and mouth [...] 24 alem (more content not included)... Normal [facility] CORONAVIRUS 2019, SCREEN ASY MPTOMATICon 02-09-2021 Lab Specimen Source Nasal, Nasopharyngeal Normal [facility] Comment on above: Performed By: #### C OVSC #### [facility] [address] [place] [address] Coronavirus 2019 RNA by PCR, Screening Asymptomticon 02-09-2021 Coronavirus 2019 RNA by PCR, Screening Asymptomtic Not detected Normal See Below ZR-Ddcjsvb-P [facility] 107 Work Phone: Comment on above: SOURCE: [...] make patient management decisions.Fact sheet for providers: https://www.fda.gov/media/606004/downloadFact sheet for patients: https://www.fda.gov/media/472824/downloadThis test has received FDA Emergency Use Authorization (EUA) and has been verified by [facility] ([facility]). This test is only authorized for the duration of time that circumstances exist to justify the authorization of the emergency use of in vitro diagnostic tests for the detection of SARS-CoV-2 virus and/or diagnosis of COVID-19 infection under section 564(b)(1) of the Act, 21 U.S.C. 360bbb-3(b)(1), unless the authorization is terminated or revoked sooner. [facility] is certified under CLIA-88 as qualified to perform high complexity testing. Testing is performed in the [facility] laboratories located at [address] [place] [address]. BASIC METABOLIC PANELon 05-2 Anion gap [Moles/Vol] 13 mmol/L Normal 10 - 20 [facility] Comment on above: Performed By: #### B MP ####[id number] [place] [address] Calcium [Mass/Vol] 9.7 mg/dL Normal 8.6 - 10.6 [facility] Comment on above: Performed By: #### B MP ####[id number] [place] [id number] Chloride [Moles/Vol] 108 mmol/L High 98 - 107 [facility] Comment on above: Performed By: #### B MP ####[id number] [place] [id number] Creatinine [Mass/Vol] 1.04 mg/dL Normal 0.50 - 1.30 [facility] Comment on above: Performed By: #### B MP ####[id number] [place] [address] GFR- AM. >60 Normal >60 [facility] Comment on above: Result Comment: CALC ULATIONS OF ESTIMATED GFR ARE PERFORMED USING THE MDRD STUDY EQUATION FOR THE IDMS-TRACEABLE CREATININE METHODS. CLIN CHEM 2007;53:766-72 Performed By: #### B MP ####[id number] [place] [address] GFR-NON AM. >60 Normal >60 [facility] Comment on above: Performed By: #### B MP ####[id number] [place] [address] Glucose [Mass/Vol] 91 mg/dL Normal 74 - 99 [facility] Comment on above: Performed By: #### B MP ####[id number] [place] [address] HCO3 (Bld) [Moles/Vol] 29 mmol/L Normal 21 - 32 [facility] Comment on above: Performed By: #### B MP ####[id number] [place] [address] Potassium [Moles/Vol] 4.6 mmol/L Normal 3.5 - 5.3 [facility] Comment on above: Performed By: #### B MP ####[id number] [place] [address] Sodium [Moles/Vol] 145 mmol/L Normal 136 - 145 [facility] Comment on above: Performed By: #### B MP ####[id number] [place] [address] Urea nitrogen [Mass/Vol] 13 mg/dL Normal 6 - 23 [facility] Comment on above: Performed By: #### B MP ####[id number] [place] [address] CBCon 01-27-2021 Erythrocyte distribution width (RBC) [Ratio] 12.2 % Normal 11.5 - 14.5 [facility] Comment on above: Performed By: #### C BC ####[id number] [place] [address] Hematocrit (Bld) [Volume fraction] 46.7 % Normal 41.0 - 52.0 [facility] Comment on above: Performed By: #### C BC ####[id number] [place] [address] Hemoglobin (Bld) [Mass/Vol] 15.1 g/dL Normal 13.5 - 17.5 [facility] Comment on above: Performed By: #### C BC ####[id number] [place] [address] MCHC (RBC) [Mass/Vol] 32.3 g/dL Normal 32.0 - 36.0 [facility] Comment on above: Performed By: #### C BC ####[id number] [place] [address] MCV (RBC) [Entitic vol] 96 fL Normal 80 - 100 [facility] Comment on above: Performed By: #### C BC ####[id number] [place] [address] NUCLEATED RBC 0.0 /100 WBC Normal 0.0-0.0 [facility] Comment on above: Performed By: #### C BC ####[id number] [place] [address] Platelets (Bld) [#/Vol] 209 10*3/uL Normal 150 - 450 [facility] Comment on above: Performed By: #### C BC ####[id number] [place] [address] RBC 4.85 x10E12/L Normal 4.50 - 5.90 [facility] Comment on above: Performed By: #### C BC ####[id number] [place] [address] WBC (Bld) [#/Vol] 7.2 10*3/uL Normal 4.4 - 11.3 [facility] Comment on above: Performed By: #### C BC ####[id number] [place] [address] Follow Up (General Surgery)o n 01-27-2021 Follow [...] EKG; Status:Hold For - Scheduling; Requested for:27Jan2021; Perform: [facility] [place] [address]; Due:27Apr2021;Ordered; For:Diaphragm [...] 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 He was turning the device off 1-2 [...] MG Oral Tablet Vitals Vital Signs Recorded: 41Wby0443 11:12AM Qqdrmqbuwcf86.1 F Heart Rate77 Laxgtbyu176 Wbspegtls28 Ixfonm569 lb BMI Lzfppnvrrr98.64 kg/m2 BSA Calculated2.33 Tobacco Useb) No Physical [...] the r (more content not included)... [facility] No Panel Informationon 01-27 http://[facility] 1:8080 /[email or web address]/[email or web address].dll?R etrieveTestByDateTime?Sherita shkMG=[id number]&Date=&Time=13%3a24%3a34%3a 00&TestType=ECG&Site=1&Out putType=PDF&Ext=PDF HP-Jxdgoqa-[address] Work Phone: [phone] Normal sinus rhythm MG-Ramos rgery-[address] Work Phone: [phone] Normal KL-Sotwexi-[address] Work Phone: [phone] HD-Felwmeq-[address] Work Phone: [phone] RM-Gwdpqyz-[address] Work Phone: [phone] ZA-Jprrqww-[address] Work Phone: [phone] CT-Bffvdjg-Q [address] Work Phone: [phone] EL-Dmjggmm-T [address] Work Phone: [phone] MO-Nycorwv-[address] Work Phone: [phone] XT-Edoanxt-A [address] Work Phone: [phone] CP-Hoxyegz-[address] Work Phone: [phone] PA-Ngwiikj-[address] Work Phone: [phone] PA-Btuualq-[address] Work Phone: [phone] RP-Lgqlnse-N [address] Work Phone: [phone] SI-Dnnvapo-[address] Work Phone: [phone] IM-Raybdqn-I [address] Work Phone: [phone] FR-Dsiabby-[address] Work Phone: Radiologyon 01-27-2021 XR Chest 2 Views Normal MG-Surge ry-[address] Work Phone: TH CHEST 2 VIEW PA AND LATon 01-27-2021 TH CHEST 2 VIEW PA AND LAT Patient Name: RIGO JEFFERSON STUDY: TH CHEST 2 VIEW PA AND LAT; 01/27/2021 11:00 am INDICATION: chronic hypoventilation. COMPARISON: Chest radiograph 04/03/2019 ACCESSION NUMBER(S): [id number] ORDERING CLINICIAN: CHUCK CABALLERO FINDINGS: Inspiratory and [...] Electronically signed by: ANGI CAICEDO MD Normal [facility] Tobacco Screening.on 021 Tobacco use status CPHS b) No PV-Qgbmxzj-[address] Work Phone: Tobacco Screening. b) No MG-Tino raysa-[address] Work Phone: Otheron 04-03-2019 XR Chest 2 views Interpreted by: ISAK04/03/19 14:06MRN: [id number] Name: RIGO JEFFERSON STUDY:CHEST 2 VIEW PA [...] Electronically signed by: ISAK 04/03/19 14:06 Normal QI-Avfqnoc-[address] Work Phone: Vital Signs Date Time Vital Sign Value Performing Clinician Facility 02-12-2021 14:10-0400 SaO2% (BldA) [Mass fraction] 95 % No Pcp Required [facility] 02-12-2021 14:00-0400 Body temperature 97.16 [degF] No Pcp Required [facility] 02-12-2021 14:00-0400 Diastolic blood pressure 83 mm[Hg] No Pcp Required [facility] 02-12-2021 14:00-0400 Heart rate 81 /min No Pcp Required [facility] 02-12-2021 14:00-0400 Respiratory rate 18 /min No Pcp Required [facility] 02-12-2021 14:00-0400 Systolic blood pressure 131 mm[Hg] No Pcp Required [facility] 02-12-2021 03:31-0400 Body height 182.8 cm No Pcp Required [facility] 02-12-2021 03:31-0400 Body weight 109.8 kg No Pcp Required [facility] 01-27-2021 11:12-0400 Body mass index (BMI) [Ratio] 33.64 kg/m2 Chuck Caballero MD Work Phone: WE-W[address]ah[address] Work Phone: 01-27-2021 11:12-0400 Body surface area Derived from formula 2.33 m2 Chuck Caballero MD Work Phone: AI-Qjpbjfy[address] Work Phone: 01-27-2021 11:12-0400 Body temperature 96.1 [degF] Chuck Caballero MD Work Phone: HL-Rhjivxk-[address] Work Phone: 01-27-2021 11:12-0400 Body weight 112.49 kg Chuck Caballero MD Work Phone: GO-Nsfebyp-[address] Work Phone: 01-27-2021 11:12-0400 Diastolic blood pressure 85 mm[Hg] Chuck Caballero MD Work Phone: DH-Gtzdpej-[address] Work Phone: 01-27-2021 11:12-0400 Heart rate 77 /min Chuck Caballero MD Work Phone: MN-Hinv[address]wo[address] Work Phone: 01-27-2021 11:12-0400 Systolic blood pressure 157 mm[Hg] Chuck Caballero MD Work Phone: IQ-Qlyoxiq-[address] Work Phone: 04-03-2019 15:37-0400 BMI (Body Mass Index) 30.11 kg/m2 Chandan Sawyer [facility]-Surgery -[place] [address] Work Phone: 04-03-2019 15:37-0400 Body Temperature 97.9 [degF] Chandan Travon DD-Xgvnuma-[address] Work Phone: 04-03-2019 15:37-0400 Body weight 100.7 kg Chandan Sawyer MW-Jdrlfds-[address] Work Phone: 04-03-2019 15:37-0400 BP Diastolic 74 mm[Hg] Chandan Sawyer RG-Ywrovem-F[address] 2100 Work Phone: 04-03-2019 15:37-0400 BP Systolic 121 mm[Hg] Chandan Travon AO-Iyyfkea-Nfxws ll 2099 Work Phone: 04-03-2019 15:37-0400 BSA (Body Surface Area) 2.23 m2 Chandan Travon PN-Ubsjhmx-Poskv[address] 2100 Work Phone: 04-03-2019 15:37-0400 Height 182.88 cm Chandan Travon QK-Luhornh-Eswvx [address] 2099 Work Phone: 04-03-2019 15:37-0400 Pulse (Heart Rate) 58 /min Chandan Sawyer CL-Xowczbp-[address] Work Phone: Encounters Encounter Date Encounter Type Care Provider Facility Start: 05-14-2024 End: 05-14-2024 ambulatory [facility] Start: 04-19-2024 End: 04-24-2024 Chart abstracting None (Historical) Neurology Start: 01-31-2024 End: 01-31-2024 ambulatory COREAS FAWWAD Not Available Start: 12-29-2023 End: 12-29-2023 ambulatory COREAS FAWWAD Not Available Start: 11-23-2023 End: 11-23-2023 ambulatory COREAS FAWWAD Not Available Start: 10-05-2023 End: 10-05-2023 ambulatory JONATHAN NAGY Not Available Start: 09-26-2023 End: 09-26-2023 ambulatory JONATHAN BATRESWITZ Not Available Start: 08-18-2023 End: 08-18-2023 ambulatory [...] related to original px No PCP None HF-[address] Work Phone: Start: 02-20-2021 Chart Update No PCP None [facility]-Surgery -[address] Work Phone: Start: 02-11-2021 End: 02-12-2021 Evaluation and management of inpatient Chuck Caballero [facility] Rm 5511 01 Start: 01-27-2021 Chart Update Chuck Caballero MD Work Phone: LV-Cszdxqr-[address] Work Phone: Start: 04-03-2019 Patient encounter procedure Chandan Cool LO-Rpveoym-[address]100 Work Phone: Start: 01-12-2018 Patient encounter procedure Chandan Cool QP-Swmgtyw-[address] Work Phone: Start: 11-28-2017 Patient encounter procedure Chandan Cool WK-Tssxzii-[address] Work Phone: Start: 11-28-2017 Patient encounter procedure Chandan Cool SM-Avjyuvh-[address] Work Phone: Procedures Date Procedure [...] End: 11-Feb-2022 Ordered: 11-Feb-2021 Saw Yo Intent [facility] End: 05-24-2025 XR Lumbar spine Views W flexion and W extension XR LUMBAR MOTION 4V AP/LAT/ FLEX/EXT Radiology Routine Spinal stenosis of lumbar region with neurogenic claudication 1 Occurrences starting 04/24/2024 until 05/24/2025 [facility] Work Phone: Comment on above: 1 Occurrences starti ng 04/24/2024 until 05/24/2025 Payers Date Payer Category Payer Medicare DEV[employer]ED [employer] [place] [id number] 2022-Present [phone] [address] ANIRUDH ROTHMAN [id number] O [id number] 2020 Unknown [id number] 2018 Unknown 1959 Medicare [id number] 1959 Unknown [id number] [id number] 1959 Unknown [id number] 2.16.840.1.704881.3.579.2.593 1959 Unknown [id number] 2.16.840.1.037019.3.579.2.593 1959 Unknown [id number] 2.16.840.1.411969.3.579.2.593 1959 Unknown [id number] 2.16.840.1.546300.3.579.2.593 1959 Unknown [id number] 2.16.840.1.817009.3.579.2.593 1959 Unknown [id number] 2.16.840.1.539992.3.579.2.593 1959 Unknown [id number] 2.16.840.1.855050.3.579.2.593 1959 Unknown [id number] 2.16.840.1.045329.3.579.2.593 1959 Unknown [id number] 2.16.840.1.770487.3.579.2.593 1959 Unknown [id number] 2.16.840.1.395473.3.579.2.1259 1959 Unknown [id number] 2.16.840.1.583457.3.579.2.1259 1959 Unknown [id number] 2.16.840.1.830794.3.579.2.1259 1959 Unknown [id number] 2.16.840.1.321899.3.579.2.1259 1959 Unknown [id number] 2.16.840.1.990315.3.579.2.1259 1959 Unknown [id number] 2.16.840.1.522041.3.579.2.1259 Social History Date Type Detail Facility Former smoker Former smoker [facility]-[address] Work Phone: Tobacco smoking consumption unknown [facility] Start: 1960 Sex assigned at Not on file [facility] Gender identity Not on file [facility] NEGATED: Highlighted row - - UF-Kyvg[address] Work Phone: Functional Status Date Assessment Result Facility Functional observable [facility] NEGATED: Highlighted row Functional performance Functional status health issues are not documented Disease WD-[address] Work Phone: Mental Status Date Assessment Result Facility 02-12-2021 Cognitive functi ons [id number] [facility] NEGATED: Highlighted row Cognitive function [Interpretation] Cognitive status health issues are not documented Disease KG-Ojctavf-[address] Work Phone: Clinical Notes 02-11-2021 to 05-14-2024 Michelle Florentino APRN.SHIRT CREASER - 04/24/2024 4:50 PM EDTAustyn Mercer P - 04/19/2024 1:49 PM EDT<item> Note Date & Type Note Facility 05-14-2024 Note [facility] Note Reason for cardiology consult: Hypertension dyspnea on exertion Chief Complaint: Dyspnea on exertion HPI: Rigo Jefferson is a 64 y.o. male with H/O COPD, he also has a history of left lung empyema and left diaphragmatic paralysis, HTN, hyperlipidemia, lumbar stenosis, chronic pain syndrome, overweight, and sleep apnea Patient states that he was in the past on blood pressure medications including metoprolol or atenolol and Norvasc however he lost a lot of weight about 75 pounds Adipex after which his blood pressure went down and he was able to stop those medications. Later on his blood pressure went up again and he was started on losartan hydrochlorothiazide which caused his blood pressure to drop significantly to the 70s and also his creatinine went up therefore it was discontinued. He states that he has a chronic dyspnea on exertion. Aggressively became worse and he noted that he drops his pulse ox down to about 78% with exercise but it is usually normal at rest. He denies any chest discomfort at rest or with exertion. He denies orthopnea or paroxysmal nocturnal dyspnea or legs edema or leg discomfort on exertion. He reports occasional dizziness when he bends over or when he stands too fast but no syncope or near syncope. He denies palpitation. He used to smoke 1 to 2 packs/day for about 20 years and he quit in 2009. He states that he had COVID infection in 2020 and was hospitalized for 13 days and at that time he was discharged home on oxygen. Currently he is not on oxygen He has sleep apnea however he could not tolerate CPAP. He sleeps in a recliner. He states that he is better after he lost significant weight. Cardiology ROS: GENERAL: Denies fever, chills, night sweats, weight loss. HEENT: Denies changes in vision, photophobia, changes in hearing, epistaxis, oral bleeding. CARDIOVASCULAR: He reports significant dyspnea on exertion associated with hypoxia, denies chest pain, orthopnea/PND, lower extremity edema, palpitations, he reports occasional lightheadedness/dizziness when he stands up quickly or when he bends over. RESPIRATORY: He reports SOB, but no coughing, or wheezing GI: Denies abdominal pain, nausea/vomiting, heartburn, melena/hematochezia. RENAL: Denies dysuria, hematuria, flank pain. MSK: Denies muscle weakness/pain, arthralgias/joint pain. NEUROLOGIC: Denies LOC, weakness, numbness, headaches. SKIN: Denies abnormal rashes or bleeding. PSYCH: Denies significant anxiety, depression, sleep disturbances. Past Medical History He has a past medical history of COPD (chronic obstructive pulmonary disease) ([facility]), Hyperlipidemia, Hypertension, Pulmonary emphysema ([facility]), and Sleep apnea. Surgical History He has a past surgical history that includes Cardiac catheterization; Tonsillectomy; Cholecystectomy; Knee surgery; and Neck surgery. Social History He reports that he quit smoking about 14 years ago. His smoking use included cigarettes. He has never used smokeless tobacco. No history on file for alcohol use and drug use. Family History Family History Problem Relation Name Age of Onset Diabetes Mother Hypertension Mother Hypertension Father Coronary artery disease Brother Hypertension Brother Diabetes Brother Allergies Patient has no known allergies. Medications Current Outpatient Medications: atorvastatin (Lipitor) 20 mg tablet, Take 20 mg by mouth at bedtime., Disp: , Rfl: clarithromycin (Biaxin) 250 mg tablet, , Disp: , Rfl: meloxicam (Mobic) 15 mg tablet, Take 7.5 mg by mouth two times daily., Disp: , Rfl: montelukast (Singulair) 10 mg tablet, Take 10 mg by mouth in the morning., Disp: , Rfl: oxyCODONE-acetaminophen (Percocet) 5-325 mg tablet, Take 1 tablet every 6 hours by oral route for 30 days., Disp: , Rfl: Last Recorded Vitals Visit Vitals BP (!) 148/91 (BP Location: Left arm, Patient Position: Sitting) 148/96 right arm,sitting Pulse 85 Ht 1.829 m (6') Wt 97.1 kg (214 lb) SpO2 99% BMI 29.02 kg/m??? Smoking Status Former BSA 2.22 m??? Physical Examination: GENERAL: alert and oriented x3, well developed, in no acute distress. HEAD: atraumatic, normocephalic. EYES: TONI, EOMI. NECK: trachea midline, no JVD present, no carotid bruits present. CARDIAC: S1, S2 present. RRR. No murmur, rubs, or gallops. RESPIRATORY: CTAB, no increased effort of breathing, no rales, rhonchi, or wheezing. Decreased breath sounds on left base ABDOMEN: soft, nontender, nondistended. EXTREMITIES: no lower extremity edema. No rash/skin discoloration present. NEURO: strength/sensation equal and symmetric in bilateral upper and lower extremities. PSYCH: appropriate mood, affect, and judgement. Labs: Labs 03/02/2024 Sodium 142, potassium 3.8, BUN 14, creatinine 1.38, GFR above 60, glucose 104, calcium 9.7 Labs 11/05/2023 White blood count 8.6, hemoglobin 16, hematocrit (more content not included)... [facility] 04-24-2024 Note HNO ID: [id number] Author: MICHELLE FLORENTINO APRN.SHIRT CREASER Service: ? Author Type: Nurse Practitioner Type: Progress Notes Filed: 04/24/2024 16:54 Note Text: Per Triage: Rigo Jefferson is a 64 year old male. that presents with symptoms of low back pain that radiates down the left leg. Previous spine surgery: Yes in [address] Sales. BMI: NA Out of state: No A1C: NA CMT: Injections Oil Heaterman Mobic Oxycodone Studies (Reports unless indicated) MRI Lumbar 04/03/2024 -Severe central canal stenosis at L3-L4 and L4-L5 Disposition: Please schedule with first available lumbar spine surgeon with pre-visit x-ray. [facility] 04-24-2024 History of Present illness Narrative Per Triage: Rigo Jefferson is a 64 year old male. that presents with symptoms of low back pain that radiates down the left leg. Previous spine surgery: Yes in [address] Sales. BMI: NA Out of state: No A1C: NA CMT: Injections Oil Heaterman Mobic Oxycodone Studies (Reports unless indicated) MRI Lumbar 04/03/2024 -Severe central canal stenosis at L3-L4 and L4-L5 Disposition: Please schedule with first available lumbar spine surgeon with pre-visit x-ray. Patient name: Rigo Jefferson Are you being referred by a Center for Spine Health Provider or Pain Management Provider at [facility]? No If answer is YES please schedule [...] facility where the MRI/CT/myelogram was completed: [facility] Address: [address] [place] [address] MRI/CT/myelogram viewable in Epic: No If not, please provide [phone] to fax in imaging reports for review. [...] and/or physical therapy was completed Injections [facility] Address: [address] [place] [id number] Have you tried any other kinds of [...] of where the surgery was completed: 2001 [facility] or Cannot recall Additional Comments documented in this encounter [facility] 04-19-2024 Note HNO ID: [id number] Author: ?, ?, ? Service: ? Author Type: ? Type: Progress Notes Filed: 04/24/2024 16:54 Note Text: Patient name: Rigo Jefferson Are you being referred by a Center for Spine Health Provider or Pain Management Provider at [facility]? No If answer is YES please schedule [...] facility where the MRI/CT/myelogram was completed: [facility] Address: [address] [place] [address] MRI/CT/myelogram viewable in Epic: No If not, please provide [phone] to fax in imaging reports for review. [...] and/or physical therapy was completed Injections [facility] Address: [address] [place] [address] Have you tried any other kinds of [...] 2001 [facility] or Cannot recall Additional Comments [facility] 12-09-2022 Note CONSULTATION PROCEDURE DATE: 12/09/2022 [...] our patients to inform us about any rvzb-irw-deivvxu medications or herbal remedies/nutritional supplements/alternative remedies. 2. [...] three months. CC: Shaikh Helena M.D. [facility] [...] to proceed. CC: Shaikh Helena M.D. [facility] [...] month's time, unless otherwise indicated. [facility] Signed and Approved by: RAVINDER ANDERSEN . 02/04/2022 16:12:00 [facility] 02-12-2021 Note Send Summary: Discharge Summary Providers: Provider RoleProvider Name ReferringChuck Caballero PrimaryRequired, No Pcp AttendingChuck Caballero Note Recipients: Chuck Caballero MD Discharge: Summary: [...] at Discharge: .Home Vital Signs: T PRBPSpO2 [id number]/8395% Date/Time02/12 12: 12: 12: 12: 12:10 Range(35.4C - 36.4C ) (77 - 99 ) (17 - 18 ) (127 - 147 )/ (83 - 91 ) (92% - 96% ) As of 12-Feb-2021 12:10:00, patient is on 2 L/min of oxygen Date: Weight/Scale Type:Height: 12-Feb-2021 01:73248.8 kg / goagtqto108.8 cm Hospital Course: 60 yo male with [...] Call to Schedule in: 2 weeks [facility] [id number] [address] Discharge Medications: Home Medication clarithromycin 250 mg [...] Last Updated: 13-Feb-2021 10:13 by Chuck Caballero) [facility] 02-11-2021 Note Post Operative Note: PreOp Diagnosis: diaphragm paralysis Post-Procedure Diagnosis: same Procedure: 1. laparoscopic L diaphragm plication 2. removal of bilateral diaphragm pacing wires 3. L pigtail chest tube placement Surgeon: Dr Chuck Caballero Resident/Fellow/Other Furnace Setter: Dr Saw Yo Anesthesia: GETA Estimated Blood [...] Last Updated: 12-Feb-2021 07:53 by Chuck Caballero) [facility] 02-11-2021 Note History & Physical [...] Last Updated: 11-Feb-2021 15:50 by Chuck Caballero) [facility] Chief complaint Narrative - Reported An interactive audio and video telecommunication system which permits real time communications between the patient (at the originating site) and provider (at the distant site) was utilized to provide this telehealth service.Post op [address] Work Phone: Evaluation note Constitutional: Well developed, awake/alert/oriented x3, no distress, alert and cooperativeSkin: warm and dryEyes: PERRL, EOMI, clear scleraENMT: MMMHead/Neck: NCATRespiratory/Thorax: good chest expansion, thorax symmetricCardiovascular: RRRGastrointestinal: Nondistended, soft, non-tender, no rebound tenderness or guardingMusculoskeletal: moves all extremitiesExtremities: well perfusedNeurological: grossly intactPsychological: Appropriate mood and behavior [facility] Evaluation note Diagnosis Spinal stenosis of lumbar region with neurogenic claudication- Primary Spinal stenosis, lumbar region, with neurogenic claudication documented in this encounter [facility] Narrative* He is status [...] not he wants to follow-up with a regional transfer liaison in our system. [address] Work Phone: Hospital Discharge instructions* [...] follow-up / diaphragm pacer removal, hemidiaphragm plicationLocation: [address] [address] Number: [phone] * Gold Form - Other Clinicians:Other Clinician Instructions: Please take your medications as directed. Please follow-up with Dr. Caballero and with your PCP as directed. You may remove dressings and shower Tuesday. No heavy lifting >20lbs or strenours activity for 3 weeks. If your symptoms return orworsen, please seek medical attention. Thank you for allowing us to participate in your care. [facility] (narrative)* Diagnostic Procedure Only (Routine) - New Request Specialty Diagnoses / Procedures Referred By Contac t Referred To Contact XR IMAGING Diagnoses Spinal stenosis of lumbar region with neurogenic claudication Procedures XR LUMBAR MOTION 4V AP/LAT/ FLEX/EXT RADEX SPINE LUMBOSACRAL MINIMUM 4 VIEWS Michelle Florentino APRN.[employer] [address] [place] [id number] Xr Imaging [id number] Referral ID Status Reason Start Date Expiration Date Visits Requested Visits Authorized [id number] New Request Auto-Generat ed Referral 04/24/2024 05/24/2025 1 1 [facility] Family History No Family History Records Found [...] DATE CREATED AUTHOR AUTHOR'S ORGANIZ ATION 04/08/2021 [facility] DATE CREATED AUTHOR AUTHOR'S ORGANIZ ATION 12/31/2022 [facility] DATE CREATED AUTHOR AUTHOR'S ORGANIZ ATION 01/31/2024 [facility] EPIC DATE CREATED AUTHOR AUTHOR'S ORGANIZ ATION 04/26/[address] [facility] DATE CREATED AUTHOR AUTHOR'S ORGANIZ ATION 05/17/2024 [facility] Source Comments (unrecognize d section and content) In the event this informatio n is protected by the Federal Confidentiality of Alcohol and Drug Abuse Patient Records regulations: The Federal rules restrict any use of the information to criminally investigate or prosecute any alcohol or drug abuse patient.[facility] Care Teams (unrecognized sec tion and content) Veterinary Laboratory Diagnostician Relationship Specialty Start Date End Date Tonny Hernandez MD [address] [place] [id number] Referring Pain Management 04/16/24 FOR RECORDS PERTAINING [...] BE BASED ON THE PRIMARY CLINICAL RECORDS. [facility]. provides no warranty or guarantee of the accuracy or completeness of information in this document.
[2024-05-22 07:37] VITALS: BP 122/73; PULSE 70; TEMP 36.9; O2SAT 99
[2024-05-22 08:16] VITALS: BP 146/67; PULSE 70; O2SAT 97
[2024-05-22 08:17] VITALS: BP 145/66; PULSE 70; O2SAT 96
[2024-05-22] MEDS: BUPIVACAINE HCL 0.25% PF 25 MG/10 ML VIAL 4 ML INJ (08:20)
[2024-05-22] MEDS: IOHEXOL 240 MG/ML - 10 ML VIAL 12 MG INJ (08:20)
[2024-05-22] MEDS: METHYLPREDNISOLONE ACETATE 40 MG/ML VIAL INJ (08:21)
[2024-05-22] MEDS: LIDOCAINE HCL 2% PF 100 MG/5 ML VIAL 1 ML INJ (08:21)
--- NOTE | 2024-05-22 09:00 | W.PM.PROCNOT ---
Date of procedure: 05/22/24 Pre-op diagnosis: Left knee osteoarthritis Post-op diagnosis: same as pre-op Procedure: Procedure: Left knee joint injection Immediate complications none. Anesthesia: 2% lidocaine plain for skin wheal. After informed consent was obtained, patient brought to the OR placed in the supine position. Skin overlying the area was prepped and draped using betadine. 25-gauge 1/2 inch needle was used for skin wheal over the medial aspect of the right knee joint identified under fluoroscopy. Omnipaque dye was used to confirm needle tip placement within the knee joint space 0.5 mL use of the injection. Subsequently Depomedrol 40mg and Marcaine 0.25% 4ml was injected into the space. No indication of intravascular or intraneuronal needle tip placement or injection was noted post procedure. The needle was removed, patient transferred to Recovery room in stable condition to discharged home after meeting criteria. Anesthesia: Local Surgeon: Tonny Hernandez Condition: stable
== END 2024-05-22 08:22 | disposition home or self-care (01) ==
PROVIDERS: PCP Internal Medicine; Visit Provider Anesthesiology Pain Medicine
DX: M17.12 Unilateral primary osteoarthritis, left knee (principal); R06.09 Other forms of dyspnea
CPT/HCPCS: 20610; 77002; 93306; J0665; J1010; Q9966

== ENCOUNTER 2024-05-22 13:35 | Outpatient (OUT) | payer OTHER, SELFPAY ==
--- OUTSIDE RECORDS SUMMARY | 2024-05-22 13:57 | XMS_ITS | CCD ---
Author Organization [facility] Care Team Providers Care Van Helper Name Role Phone Chandan Cool Unavailable Unavailable Sid Ac Unavailable Unavailable Required, No Pcp Unavailable Unavailable Chuck Caballero Unavailable None, No PCP Unavailable Unavailable [facility], [facility] Primary Care Unavailable EMILY, DR RADHA Gaxiola Consulting Unavailable DUNCAN ., DR LLUVIA Sheldon Attending Unavailable DUNCAN ., DR LLUVIA Sheldon Admitting Unavailable DUNCAN ., DR LLUVIA Sheldon Consulting Unavailable [facility], [facility] Primary Care Unavailable DUNCAN ., DR LLUVIA Sheldon Attending Unavailable DUNCAN ., DR LLUVIA Sheldon Consulting Unavailable DUNCAN ., DR LLUVIA Sheldon Admitting Unavailable [facility], [facility] Primary Care Unavailable DUNCAN ., DR LLUVIA Sheldon Attending Unavailable DUNCAN ., DR LLUVIA Sheldon Consulting Unavailable DUNCAN ., DR LLUVIA Sheldon Admitting Unavailable [facility], [facility] Primary Care Unavailable ANDERSEN .RAVINDER Consulting Unavailable DUNCAN ., DR LLUVIA Sheldon Admitting Unavailable DUNCAN ., DR LLUVIA Sheldon Attending Unavailable [facility] Primary Care Unavailable ANDERSEN .RAVINDER Consulting Unavailable DUNCAN ., DR LLUVIA Sheldon Admitting Unavailable DUNCAN ., DR LLUVIA Sheldon Attending Unavailable [facility], [facility] Primary Care Unavailable LAKSHMIPATHY ., NARENDRANATH Attending Nadira vailable LAKSHMIPATHY ., NARENDRANATH Admitting Nadira vailable [facility], [facility] Primary Care Unavailable LAKSHMIPATHY ., NARENDRANATH Attending Nadira vailable LAKSHMIPATHY ., NARENDRANATH Consulting Nadira vailable LAKSHMIPATHY ., NARENDRANATH Admitting Nadira vailable [facility], [facility] Primary Care Unavailable LAKSHMIPATHY ., NARENDRANATH Consulting [...] Range Facility Office Visiton 05-14-2024 Follow-up visit [id number] Rigo Jefferson 1960 M Date Provider Department Center 05/14/2024 [id number]-TXZSABELIAS SPAULDING C[facility] Family History Problem Relation Age of Onset Diabetes Mother Hypertension Mother Hypertension Father Coronary artery disease Brother Hypertension Brother Diabetes Brother Family Status - Relation Status Age at Mother Father Brother Level of Service:42603 ME OFFICE/OUTPATIENT NEW MODERATE MDM 45 MINUTES Reason for Visit and Comments: Hypertension [526030] - New patient to re-establish care. Ref for hypertension. Used to be on antihypertensives but is currently on none. Palpitations [859238] - Sometimes Shortness of Breath [822557] - Has 1 lung, hx of COPD, pulmonary emphysema Dizziness [037382] Normal [facility] MRI SHOULDER LT WO CONon MRI SHOULDER [...] by: DOMINGA FLYNN Date: 2022-12-08 10:25 Normal [facility] MRI SHOULDER RT WO CONon MRI SHOULDER [...] by: DOMINGA FLYNN Date: 2022-12-08 10:35 Normal [facility] XR CSPINE OBL FLEX_EXTon XR CSPINE OBL [...] by: RADHA DIAZ Date: 2022-05-31 20:33 Normal [facility] Post Op (General Surgery)on 04-02-2021 Post Op [...] not he wants to follow-up with a rn disease management in our system. Provider Impressions He is [...] not he wants to follow-up with a rn disease management in our system. Chief Complaint An interactive [...] not he wants to follow-up with a rn disease management in our system. Active Problems COPD (chronic [...] MG Oral Tablet Results/Data Xray Chest 1 [id number] 04:27PMJesusita Faith Test NameResultFlagReference Xray Chest 1 View(Report) FINAL REPORT Interpreted by: МАРИНА MARCELO MD 02/12/21 16:52 Patient Name: RIGO JEFFERSON STUDY: CHEST 1 VIEW; 02/12/2021 4:27 pm INDICATION: chest tube removal. COMPARISON: Prior 11:07 a.m. radiograph. ACCESSION NUMBER(S): [id number] ORDERING CLINICIAN: JESUSITA FAITH FINDINGS: Left basilar [...] Apr 02 2021 5:38PM EST (Author) Normal [facility] Admission Risk Screen - Adul ton 02-12-2021 Admission Risk Screen - Adult Allergies: Allergies: No Known Allergies: Patient Verification: New W ID Band Applied in my Departmentno Type of ID Patient is WearingW wristband, but not applied here Patient Transferred from Other Facility ([facility], [facility],etc)no Patient Identity Verified Bypatient ID [...] AlertFor Ebola-like Symptoms: Isolate Patient and Notify Provider/Natural Gas Technician For Contact: Notify Provider/Natural Gas Technician Advance Directive: Advance Directive/DNRno (1) Advance Directive [...] Learning Preferencesverbal instruction Cultural Considerationsnone Developmental Considerationsnone Worship Considerationsnone Learning Assessment (Other Learner): Other learner availableno Depression Screen: During the past month, have you often been bothered by feeling down, depressed or hopelessno (1) During the past month, have you often had little interest or pleasure in doing thingsno (1) Have you had any thoughts of harming anyone elseno (1) Karnes Suicide: Risk Screen Not Applicable/Able to Answerable to be screened In the Past Month: Have you wished you were or could go to sleep and not wake upno(1) In the Past Month: Have you had any actual thoughts of killing yourself no(1) Lifetime: Have you ever done, started to do, or prepared to do anything to end your lifeno(1) Karnes Suicide Risknegative Adult Nutrition Screen: Have you [...] Normal [facility] BASIC METABOLIC PANELon 06--2020 Anion gap [Moles/Vol] 15 mmol/L Normal 10 - 20 [facility] Comment on above: Performed By: #### B MP #### [facility] [address] [place] [address] Calcium [Mass/Vol] 9.5 mg/dL Normal 8.6 - 10.6 [facility] Comment on above: Performed By: #### B MP #### [facility] [address] [place] [address] Chloride [Moles/Vol] 102 mmol/L Normal 98 - 107 [facility] Comment on above: Performed By: #### B MP #### [facility] [address] [place] [address] Creatinine [Mass/Vol] 0.98 mg/dL Normal 0.50 - 1.30 [facility] Comment on above: Performed By: #### B MP #### [facility] [address] [place] [address] GFR- AM. >60 Normal >60 [facility] Comment on above: Result Comment: CALC ULATIONS OF ESTIMATED GFR ARE PERFORMED USING THE MDRD STUDY EQUATION FOR THE IDMS-TRACEABLE CREATININE METHODS. CLIN CHEM 2007;53:766-72 Performed By: #### B MP #### [facility] [address] [place] [address] GFR-NON AM. >60 Normal >60 [facility] Comment on above: Performed By: #### B MP #### [facility] [address] [place] [address] Glucose [Mass/Vol] 133 mg/dL High 74 - 99 [facility] Comment on above: Performed By: #### B MP #### [facility] [address] [place] [address] HCO3 (Bld) [Moles/Vol] 24 mmol/L Normal 21 - 32 [facility] Comment on above: Performed By: #### B MP #### [facility] [address] [place] [address] Potassium [Moles/Vol] 4.3 mmol/L Normal 3.5 - 5.3 [facility] Comment on above: Performed By: #### B MP #### [facility] [address] [place] [address] Sodium [Moles/Vol] 137 mmol/L Normal 136 - 145 [facility] Comment on above: Performed By: #### B MP #### [facility] [address] [place] [address] Urea nitrogen [Mass/Vol] 17 mg/dL Normal 6 - 23 [facility] Comment on above: Performed By: #### B MP #### [facility] [address] [place] [address] CBCon 02-12-2021 Erythrocyte distribution width (RBC) [Ratio] 12.1 % Normal 11.5 - 14.5 [facility] Comment on above: Performed By: #### C BC #### [facility] [address] [place] [address] Hematocrit (Bld) [Volume fraction] 45.8 % Normal 41.0 - 52.0 [facility] Comment on above: Performed By: #### C BC #### [facility] [address] [place] [address] Hemoglobin (Bld) [Mass/Vol] 15.0 g/dL Normal 13.5 - 17.5 [facility] Comment on above: Performed By: #### C BC #### [facility] [address] [place] [address] MCHC (RBC) [Mass/Vol] 32.8 g/dL Normal 32.0 - 36.0 [facility] Comment on above: Performed By: #### C BC #### [facility] [address] [place] [address] MCV (RBC) [Entitic vol] 94 fL Normal 80 - 100 [facility] Comment on above: Performed By: #### C BC #### [facility] [address] [place] [address] NUCLEATED RBC 0.0 /100 WBC Normal 0.0-0.0 [facility] Comment on above: Performed By: #### C BC #### [facility] [address] [place] [address] Platelets (Bld) [#/Vol] 228 10*3/uL Normal 150 - 450 [facility] Comment on above: Performed By: #### C BC #### [facility] [address] [place] [address] RBC 4.85 x10E12/L Normal 4.50 - 5.90 [facility] Comment on above: Performed By: #### C BC #### [facility] [address] [place] [address] WBC (Bld) [#/Vol] 12.8 10*3/uL High 4.4 - 11.3 [facility] Comment on above: Performed By: #### C BC #### [facility] [address] [place] [address] Clinical Event Note-POCon Clinical Event Note-POC Clinical [...] 12-Feb-2021 00:41 by Nataliia Ferris (Resident)) Normal [facility] Daily Progress [...] yet. Objective Data: Objective Information: T PRBPSpO2 Value35.71756689/8695% Date/Time02/12 6: 6:4902/12 6:4902/12 6:4902/12 6:49 Range(35.4C - 36.4C ) (77 - 99 ) (17 - 18 ) (127 - 147 )/ (86 - 91 ) (95% - 96% ) Pain reported at 02/12 2:54: 6 = Moderate ---- Intake and Output ----- Mn/Dy/Year TimeIntakeOutputNet Feb 12, 2021 6:00 [id number] Feb 11, 2021 10:00 [id number] The Intake and Output Totals for the last 24 hours are: IntakeOutputNet [id number] Physical Exam by System: Constitutional: Well developed, [...] Caballero) Normal [facility] Discharge Planning Lsfn7ws 0 02-12-2021 Discharge Planning Note2 Discharge Planning: Needs Prior to Discharge (ex. Home Care Orders, IV/O2 prescriptions) Follow up appointments Discharge Barriers (ex. Avoidable days, wait guardianship, pt refuse leave) None Planned Dispositionhome Discharge DestinationHome [facility] [place] of Choice Explainedyes preference Anticipated Discharge [id number]-Fzx-5171 Discharge Planning 02/12/2021 0135 Discharge Plan Patient transferred from [place] [address] from PACU for diaphragm plication. Pt is A&O times 4. at 3 liters oxygen. Pt denies any medical equipment sales use at home. 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 Pt have [...] disposition: Home Potential Barriers: none ADOD: 02/12. search coordinator will continue to follow for discharge planning needs. Franny Gilliam RN, Transitional Card Reader/TCC, pager [phone] Discharge note: 02/12/21 @ 1735: PT discharged home at this time. pts peripheral IV taken out prior to DC. pt given DC instructions. pt verbalized understanding. pt refused transport and walked downstairs with his son.---Erika stock RN Assessment: Discharge Planning Assessment [id number]-Aab-5608 Primary Contact Name and NumberAdam [phone](1) Stated Reason for Admissiondiaphragm plication(2) Arrived FromOR (2) Lives Withparent(s)(2) Living Arrangementshouse(2) Resource/Environmental Concernsnone(2) Anticipated Transition [place](2) Services Anticipated at Transitionnone(2) Discharge Documentation: Discharge/Transfer Date/Bsxz95-Cpj-0699 17:35 Discharge Modeambulatory Discharged Accompanied Byfamily member [...] 12-Feb-2021 01:31 Normal [facility] Discharge Ecuqidx2gi 021 Discharge Profile2 Discharge Orders: Anticipated Discharge Date: Anticipated Discharge Fumb77-Igr-8229 DNAR: DNAR Status: none Call Provider If [...] hemidiaphragm plication Call to Schedule in2 weeks [id number] [place] [address] Phone [phone] Other Clinician Instructions: Other Instructions: Other Clinician [...] participate in your care. Electronic Signatures: Jesusita aFith (DO (Resident)) (Signed 12-Feb-2021 15:27) Authored: Discharge Orders, Provider FINAL REVIEW of Orders, Appointments, Other Clinician Instructions, Gold Form - Telegraph Inspector Summary Last Updated: 12-Feb-2021 15:27 by Jesusita Faith (DO (Resident)) Normal [facility] Laboratory - Chemistry and C hemistry - challengeon 02-12-2021 Anion gap [Moles/Vol] 15 mmol/L 10 - 20 LJ-Ngbaqhy-Y [address] Work Phone: Calcium [Mass/Vol] 9.5 mg/dL 8.6 - 10.6 MG-Tino raysa[facility] [place] [address] Work Phone: Chloride [Moles/Vol] 102 mmol/L 98 - 107 TW-Dqmhvjm-[address] Work Phone: CO2 [Moles/Vol] 24 mmol/L 21 - 32 MG-Surger y-[facility] Work Phone: Creatinine [Mass/Vol] 0.98 mg/dL See Below UF-Oordndw-K [address] [facility] Work Phone: Comment on above: Reference Range: 0.5 0 - 1.30 Glucose [Mass/Vol] 133 mg/dL above high threshold 74 - 99 IJ-Ltuuhfe-U [address] Work Phone: Potassium [Moles/Vol] 4.3 mmol/L 3.5 - 5.3 JE-Eyudabq-H [address] Work Phone: Sodium [Moles/Vol] 137 mmol/L 136 - 145 MG-Tino raysa[facility] [address] Work Phone: Urea nitrogen [Mass/Vol] 17 mg/dL 6 - 23 IT-Cijicbg-X [address] [facility] Work Phone: Laboratory - Hematology and Cell countson 02-12-2021 Erythrocyte distribution width (RBC) [Ratio] 12.1 % See Below AE-Krvrqzo-U [address] Work Phone: Comment on above: Reference Range: 11. 5 - 14.5 Hematocrit (Bld) [Volume fraction] 45.8 % See Below WK-Pyhffqj-Z [address] Work Phone: Comment on above: Reference Range: 41. 0 - 52.0 Hemoglobin (Bld) [Mass/Vol] 15.0 g/dL See Below YX-Rtpvsog-B [address] [facility] Work Phone: Comment on above: Reference Range: 13. 5 - 17.5 MCHC (RBC) [Mass/Vol] 32.8 g/dL See Below ZU-Rutjinh-P [address] [employer] [facility] Work Phone: Comment on above: Reference Range: 32. 0 - 36.0 MCV (RBC) [Entitic vol] 94 fL 80 - 100 YH-Hefqoys-Y [address] [employer] [facility] Work Phone: Platelets (Bld) [#/Vol] 228 10*3/uL 150 - 450 UA-Jhhzlvf-T [address] [employer] Work Phone: RBC (Bld) [#/Vol] 4.85 {x10E12/L} See Below MG -Surgery-G [address] [facility] Work Phone: Comment on above: Reference Range: 4.5 0 - 5.90 WBC (Bld) [#/Vol] 12.8 10*3/uL above high threshold 4.4 - 11.3 JT-Ktomzxd-S [address] [employer] [facility] Work Phone: No Panel Informationon 02-12 >60 >60 VW-Skgahtx-[address] [facility] Work Phone: Comment on above: CALCULATIONS OF LANRE MATED GFR ARE PERFORMED USING THE MDRD STUDY EQUATION FOR THE IDMS-TRACEABLE CREATININE METHODS. CLIN CHEM 2007;53:766-72 0.0 {/100_WBC} 0.0-0.0 MG-Surgery -[place] [address] Work Phone: Order Reconciliationon 02-12 Order Reconciliation [...] using the Personal Electronic Health Record or LoveLul[employer] (1) Wants Family/Rep Notified of Admissionyes, primary contact Notify PCPnotify PCP Informed of Patient Visiting Rightsyes General Health: Blood Avoidance/Restrictionsnone (1) Previous Transfusion Reactionno(2) Weight in kg109.8 kilogram(s)(3) Weight in kfe615 pound(s) Weight Methodactual (measured) (3) Scale Typestanding [...] Arrangementshouse Services Anticipated at Transitionnone [facility]ated [facility] Significant IndicatorsComplete Information Review: Allergies, [...] 12-Feb-2021 01:34) Authored: Initial Info, General Health, [facility] Based Care, Substance, Health Mgmt, Relationship/Environ, Additional Information Last Updated: 12-Feb-2021 01:34 by Mary Beth Holcomb (RN) References: 1. Data Referenced From Patient Profile - Preop v2 11-Feb-2021 12:02 2. Data Referenced From Patient Profile - Adult v2 12-Dec-2017 16:00 3. Data Referenced From 1. Vital Signs 11-Feb-2021 12:02 Normal [facility] Radiologyon 02-12-2021 XR Chest Single view Normal VI-Locyjwk[facility] [address] Work Phone: XR Chest Single view Normal IM-Lpgmfkv-D [address] Work Phone: XR Chest Single view Normal VC-Pyhvusc[facility] 107 Work Phone: TH CHEST 1 VIEWon 02-12-2021 TH CHEST 1 VIEW Patient Name: RIGO JEFFERSON STUDY: CHEST 1 VIEW; 02/12/2021 4:27 pm INDICATION: chest tube removal. COMPARISON: Prior 11:07 a.m. radiograph. ACCESSION NUMBER(S): [id number] ORDERING CLINICIAN: JESUSITA FAITH FINDINGS: Left basilar [...] Electronically signed by: МАРИНА MARCELO MD Normal [facility] [place] CHEST 1 VIEW Patient Name: RIGO JEFFERSON STUDY: CHEST 1 VIEW; 02/12/2021 11:58 am INDICATION: chest tube wet seal. COMPARISON: 7:02 a.m. radiograph. ACCESSION NUMBER(S): [id number] ORDERING CLINICIAN: JESUSITA FAITH FINDINGS: Left basilar [...] Electronically signed by: МАРИНА MARCELO MD Normal [facility] [place] CHEST 1 VIEW Patient Name: RIGO JEFFERSON STUDY: CHEST 1 VIEW; 02/12/2021 7:13 am INDICATION: POD 1 s/p diaphragm plication. COMPARISON: 02/11/2021. ACCESSION NUMBER(S): [id number] ORDERING CLINICIAN: SAW YO FINDINGS: Left basilar [...] [facility] No Panel Informationon 02-11 [place] [address] Work Phone: Operative Reports - [facility] [place] [address] Patient Name: RIGO JEFFERSON : 1960 Date of Service: 02/11/2021 Patient Location: [place] [address] [id number] Patient Type: I Surgeon: Chuck Caballero MD Report Type: Operative Reports PREOPERATIVE DIAGNOSIS: Chronic respiratory failure, left diaphragm dysfunction. POSTOPERATIVE DIAGNOSIS: Chronic respiratory failure, left diaphragm dysfunction. OPERATION/PROCEDURE: Laparoscopic left diaphragm plication with removal of previous diaphragm pacing wires. SURGEON: Chuck Caballero MD TAPE CUTTING MACHINE OPERATOR(S): Saw Yo MD. There was no available resident. ANESTHESIA: LOCATION: [facility]. CLINICAL NOTE: This is a patient with [...] TT: 02/12/2021 12:44 PM EST DICTATION NUMBER: [id number] BRIE JOB NUMBER: [id number] CC: PT STATES NONE PCP Electronic Signatures: [...] oral tablet 1 tab(s) orally once a ald08-Gge-292011-Feb-2021 AM Reviewed and Held clarithromycin 250 mg oral tablet 250 milligram(s) orally once a day Clarithromycin Tablet (BIAXIN)DOSE = 250 mg Oral Every 24 Hoursclarithromycin 250 mg oral tablet continued as the inpatient order Clarithromycin diclofenac sodium 50 mg oral delayed release tablet 1 tab(s) orally 2 times a mdk62-Prx-551682-Chk-4969 AM Reviewed and Held oxycodone-acetaminophen 5 mg-300 mg oral tablet 1 tab(s) orally 2 times a day [id number]-[id number]-9359 AM Reviewed and Held Additional Current Orders [...] using the Personal Electronic Health Record or LoveLulano (1) Are you interested in learning more about [facility] for the management of your healthnot at this time Stated Reason for AdmissionL pulling of wires/pulling lung down [facility] [phone] Patient Belongingspatient educated regarding responsibility for personal items Medications Brought to Hospitalno General Health: Weight in kg109.8 kilogram(s) Weight in tbd019 pound(s) Weight Methodactual (measured) Scale Typestanding Height [...] Learning Preferencesverbal instruction Cultural Considerationsnone Developmental Considerationsnone Worship Considerationsnone Other learner availableno [place] RiskPatient location auto qualifies him/her for HIGH RISK. Are there any cultural, spiritual, zoroastrian practices/values/needs that are important for us to [...] Preop Checklist Preop Checklist: Preop Checklist: Arrival Dftw90-Twn-1032 Arrival Time11:48 Procedure TypeL laparoscopic diaphragm plication Temperature C36.1 degrees C Temperature F96.9 degrees F Heart Rate70 beats per minute Respiratory Rate12 breath per minute Blood Pressure Hhkfvgty563 mm/Hg Blood Pressure Dfvyxolzo76 mm/Hg NPO Eshxhk11-Zuh-0451 00:00 ID Band Onyes Allergy Bandno known [...] 11-Feb-2021 12:02 by Jany Ann (ASIA) Normal [facility] Radiologyon 02-11-2021 XR Chest Single view Please click on the link to view the study images Normal [place] [address] Work Phone: [facility] Surgical Pathology Depar tmenton 02-11-2021 [facility] Surgical Pathology Department Name RIGO JEFFERSON Pathologist: JACINTO MURRIETA MD Date of Procedure: 02/11/2021 Date Received: 02/12/2021 Date Reported 02/19/2021 Submitting Physician: CHUCK CABALLERO M.D. Location: [facility] Copy To/Referring/Attending: CHUCK CABALLERO M.D. Other [...] this case. Clinical History: Physician Contact Number: [id number] Fixative (A): Fresh Clinical Diagnosis History: disorders of diaphragm Specimens Submitted As: A: PACING WIRE Gross Description: Received in formalin, labeled with the patient's name and hospital number, are multiple wires with a piece of adipose tissue attached measuring 3.0 x 1.6 x 1.0 cm. A photograph is taken. The attached soft tissue is submitted entirely in one cassette. EXB exb/02/12/2021 [facility] Department of Pathology [address] [place] [address] Normal [facility] Comment on above: Performed By: #### U [facility] ####[facility] Surgical Pathology [address] [place] [address] CORONAVIRUS 2019, SCREEN ASY MPTOMATICon 02-10-2021 SARS-CoV-2 [...] patient management decisions. Fact sheet for providers: https://www.fda.gov/media/087689/download Fact sheet for patients: https://www.fda.gov/media/482583/download This test has received FDA Emergency Use Authorization (EUA) and has been verified by [facility] ([facility]). This test is only authorized for the duration of time that circumstances exist to justify the authorization of the emergency use of in vitro diagnostic tests for the detection of SARS-CoV-2 virus and/or diagnosis of COVID-19 infection under section 564(b)(1) of the Act, 21 U.S.C. 360bbb-3(b)(1), unless the authorization is terminated or revoked sooner. [facility] is certified under CLIA-88 as qualified to perform high complexity testing. Testing is performed in the [facility] laboratories located at [address] [place] [address]. Performed By: #### C OVSC #### [address] [place] [address] Covid 19 Resultson 1 SARS-CoV-2 (COVID-19) RNA [...] You may also be contacted by the [facility] to see if any of your [...] or Naproxen (Aleve) can also be used. Bcmy-yyg-dhrgfbh cough and cold medicines can be used according to the instructions on the package. Some lcir-nwp-qzzmmmo medicines also contain acetaminophen. Make sure you [...] water are not available, use alcohol-based hand administration internship. Avoid touching your eyes, nose, and mouth [...] above: Performed By: #### C OVSC #### [facility] [address] [place] [address] Coronavirus 2019 RNA by PCR, Screening Asymptomticon 02-09-2021 Coronavirus 2019 RNA by PCR, Screening Asymptomtic Not detected Normal See Below NN-Phzyzkl-C [facility] Work Phone: Comment on above: SOURCE: [...] make patient management decisions.Fact sheet for providers: https://www.fda.gov/media/629201/downloadFact sheet for patients: https://www.fda.gov/media/442708/downloadThis test has received FDA Emergency Use Authorization (EUA) and has been verified by [facility] ([facility]). This test is only authorized for the duration of time that circumstances exist to justify the authorization of the emergency use of in vitro diagnostic tests for the detection of SARS-CoV-2 virus and/or diagnosis of COVID-19 infection under section 564(b)(1) of the Act, 21 U.S.C. 360bbb-3(b)(1), unless the authorization is terminated or revoked sooner. [facility] is certified under CLIA-88 as qualified to perform high complexity testing. Testing is performed in the [facility] laboratories located at [address] [place] [address]. BASIC METABOLIC PANELon 05-2 Anion gap [Moles/Vol] 13 mmol/L Normal 10 - 20 [facility] Comment on above: Performed By: #### B MP ####[id number] [place] [address] Calcium [Mass/Vol] 9.7 mg/dL Normal 8.6 - 10.6 [facility] Comment on above: Performed By: #### B MP ####[id number] [place] [id number] Chloride [Moles/Vol] 108 mmol/L High 98 - 107 [facility] Comment on above: Performed By: #### B MP ####[id number] [place] [id number] Creatinine [Mass/Vol] 1.04 mg/dL Normal 0.50 - 1.30 [facility] Comment on above: Performed By: #### B MP ####[id number] [place] [address] GFR- AM. >60 Normal >60 [facility] Comment on above: Result Comment: CALC ULATIONS OF ESTIMATED GFR ARE PERFORMED USING THE MDRD STUDY EQUATION FOR THE IDMS-TRACEABLE CREATININE METHODS. CLIN CHEM 2007;53:766-72 Performed By: #### B MP ####[id number] [place] [address] GFR-NON AM. >60 Normal >60 [facility] Comment on above: Performed By: #### B MP ####[id number] [place] [address] Glucose [Mass/Vol] 91 mg/dL Normal 74 - 99 [facility] Comment on above: Performed By: #### B MP ####[id number] [place] [address] HCO3 (Bld) [Moles/Vol] 29 mmol/L Normal 21 - 32 [facility] Comment on above: Performed By: #### B MP ####[id number] [place] [address] Potassium [Moles/Vol] 4.6 mmol/L Normal 3.5 - 5.3 [facility] Comment on above: Performed By: #### B MP ####[id number] [place] [address] Sodium [Moles/Vol] 145 mmol/L Normal 136 - 145 [facility] Comment on above: Performed By: #### B MP ####[id number] [place] [address] Urea nitrogen [Mass/Vol] 13 mg/dL Normal 6 - 23 [facility] Comment on above: Performed By: #### B MP ####[id number] [place] [address] CBCon 01-27-2021 Erythrocyte distribution width (RBC) [Ratio] 12.2 % Normal 11.5 - 14.5 [facility] Comment on above: Performed By: #### C BC ####[id number] [place] [address] Hematocrit (Bld) [Volume fraction] 46.7 % Normal 41.0 - 52.0 [facility] Comment on above: Performed By: #### C BC ####[id number] [place] [address] Hemoglobin (Bld) [Mass/Vol] 15.1 g/dL Normal 13.5 - 17.5 [facility] Comment on above: Performed By: #### C BC ####[id number] [place] [address] MCHC (RBC) [Mass/Vol] 32.3 g/dL Normal 32.0 - 36.0 [facility] Comment on above: Performed By: #### C BC ####[id number] [place] [address] MCV (RBC) [Entitic vol] 96 fL Normal 80 - 100 [facility] Comment on above: Performed By: #### C BC ####[id number] [place] [address] NUCLEATED RBC 0.0 /100 WBC Normal 0.0-0.0 [facility] Comment on above: Performed By: #### C BC ####[id number] [place] [address] Platelets (Bld) [#/Vol] 209 10*3/uL Normal 150 - 450 [facility] Comment on above: Performed By: #### C BC ####[id number] [place] [address] RBC 4.85 x10E12/L Normal 4.50 - 5.90 [facility] Comment on above: Performed By: #### C BC ####[id number] [place] [address] WBC (Bld) [#/Vol] 7.2 10*3/uL Normal 4.4 - 11.3 [facility] Comment on above: Performed By: #### C BC ####[id number] [place] [address] Follow Up (General Surgery)o n 01-27-2021 Follow [...] For - Scheduling; Requested for:27Jan2021; Perform: [facility] [place] 1800; Due:27Apr2021;Ordered; For:Diaphragm dysfunction, HTN [...] 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 He was turning the device off 1-2 [...] MG Oral Tablet Vitals Vital Signs Recorded: 20Oyv9955 11:12AM Obhtwpouknc16.1 F Heart Rate77 Tovcvsdq748 Crusophof18 Yncjyq283 lb BMI Leuupqzcss15.64 kg/m2 BSA Calculated2.33 Tobacco Useb) No Physical [...] the r (more content not included)... Normal [facility] No Panel Informationon 01-27 http://[facility] POT[facility]UEPRDAIO0 1:8080 /musescripts/museweb.dll?R etrieveTestByDateTime?Sherita crlVO=[id number]&Date=&Time=13%3a24%3a34%3a 00&TestType=ECG&Site=1&Out putType=PDF&Ext=PDF OP-Jhmlhbf-[address] Work Phone: [phone] Normal sinus rhythm MG-Ramos rgery-[address] Work Phone: [phone] Normal ML-Ditihcw-[address] Work Phone: [phone] XV-Cezimkl-[address] Work Phone: [phone] JX-Tpbmnwc-W [address] Work Phone: [phone] RQ-Sosppkg-H [address] Work Phone: [phone] QX-Vcppoij-[address] Work Phone: [phone] AQ-Nhyltyk-S [address] Work Phone: [phone] TN-Fnnaxoq-[address] Work Phone: [phone] ZR-Nfskmvm-F [address] Work Phone: [phone] DD-Jvoiopc-K [address] Work Phone: [phone] MX-Yuwcbbl-O [address] Work Phone: [phone] LD-Ygsjfrf-E [address] Work Phone: [phone] CZ-Ejxkfep-A [address] Work Phone: [phone] JJ-Tbuaxfg-N [address] Work Phone: [phone] SS-Ptbaccj-I [address] Work Phone: [phone] NF-Jdfnsii-W [address] Work Phone: Radiologyon 01-27-2021 XR Chest 2 Views Normal MG-Surge ry-[address] Work Phone: TH CHEST 2 VIEW PA AND LATon 01-27-2021 TH CHEST 2 VIEW PA AND LAT Patient Name: RIGO JEFFERSON STUDY: TH CHEST 2 VIEW PA AND LAT; 01/27/2021 11:00 am INDICATION: chronic hypoventilation. COMPARISON: Chest radiograph 04/03/2019 ACCESSION NUMBER(S): [id number] ORDERING CLINICIAN: CHUCK CABALLERO FINDINGS: Inspiratory and [...] Hospital Tobacco Screening.on 021 Tobacco use status CPHS b) No PH-Irxrvra-[address] Work Phone: Tobacco Screening. b) No MG-Tino raysa-[address] Work Phone: Otheron 04-03-2019 XR Chest 2 views Interpreted by: ISAK04/03/19 14:06MRN: [id number] Name: RIGO JEFFERSON STUDY:CHEST 2 VIEW PA [...] Electronically signed by: ISAK 04/03/19 14:06 Normal JI-Zcvctdg-K [address] Work Phone: Vital Signs [...] 33.64 kg/m2 Chuck Caballero MD Work Phone: UW-Azvuflp-Uqsc[address] Work Phone: 01-27-2021 11:12-0400 Body surface area Derived from formula 2.33 m2 Chuck Caballero MD Work Phone: JH-Ywhvyiw-Fhgxd [address] Work Phone: 01-27-2021 11:12-0400 Body temperature 96.1 [degF] Chuck Caballero MD Work Phone: NH-Xosjdpp-[address] Work Phone: 01-27-2021 11:12-0400 Body weight 112.49 kg Chuck Caballero MD Work Phone: VD-Mjwlrvh-Kns[address] Work Phone: 01-27-2021 11:12-0400 Diastolic blood pressure 85 mm[Hg] Chuck Caballero MD Work Phone: QG-Pqooxzs-Sgagq [address] Work Phone: 01-27-2021 11:12-0400 Heart rate 77 /min Chuck Caballero MD Work Phone: LM-Kwbjfwr-Clig[address] Work Phone: 01-27-2021 11:12-0400 Systolic blood pressure 157 mm[Hg] Chuck Caballero MD Work Phone: MY-Zpipcnm-Yncsy [address] Work Phone: 04-03-2019 15:37-0400 BMI (Body Mass Index) 30.11 kg/m2 Chandan Fairbanks [facility] -[place] [address]100 Work Phone: 04-03-2019 15:37-0400 Body Temperature 97.9 [degF] Chandan Travon WE-Cqqucqq-Xzup [address] 2099 Work Phone: 04-03-2019 15:37-0400 Body weight 100.7 kg Chandan Fairbanks RL-Tbhoqjt-Tcnvo ll 2099 Work Phone: 04-03-2019 15:37-0400 BP Diastolic 74 mm[Hg] Chandan Fairbanks JZ-Buafujb-Alqhe ll 2100 Work Phone: 04-03-2019 15:37-0400 BP Systolic 121 mm[Hg] Chandan Travon CU-Bezssri-Uzsgg ll 2099 Work Phone: 04-03-2019 15:37-0400 BSA (Body Surface Area) 2.23 m2 Chandan Travon ID-Ucggldt-Uwsctsp 2100 Work Phone: 04-03-2019 15:37-0400 Height 182.88 cm Chandan Travon PV-Yanbziv-Hxgbs ll 2099 Work Phone: 04-03-2019 15:37-0400 Pulse (Heart Rate) 58 /min Chandan Fairbanks JU-Fdtrjlb-Fc lwell 2099 Work Phone: Encounters Encounter Date Encounter Type Care Provider Facility Start: 05-14-2024 End: 05-14-2024 ambulatory [facility] Start: 04-19-2024 End: 04-24-2024 Chart abstracting None [...] related to original px No PCP None QS-Qicnkyo-[address] Work Phone: Start: 02-20-2021 Chart Update No PCP None [facility]-Surgery -[address] Work Phone: Start: 02-11-2021 End: 02-12-2021 Evaluation and management of inpatient Chuck Caballero [facility] [address] [facility] Rm 5511 01 Start: 01-27-2021 Chart Update Chuck Caballero MD Work Phone: US-Vzprofs-[address] Work Phone: Start: 04-03-2019 Patient encounter procedure Chandan Cool KZ-Rzaaiwi-Topjgrk 2100 Work Phone: Start: 01-12-2018 Patient encounter procedure Chandan Cool FI-Etewpgy-Q[address] Work Phone: Start: 11-28-2017 Patient encounter procedure Chandan Cool NH-Nvmjvoo-Zzq[address] Work Phone: Start: 11-28-2017 Patient encounter procedure Chandan Cool DR-Cfwqecd-W[address] Work Phone: Procedures Date Procedure [...] 11-Feb-2021 Saw Yo Intent [facility] End: 05-24-2025 XR Lumbar spine Views W flexion and W extension XR LUMBAR MOTION 4V AP/LAT/ FLEX/EXT Radiology Routine Spinal stenosis of lumbar region with neurogenic claudication 1 Occurrences starting 04/24/2024 until 05/24/2025 [facility] Work Phone: Comment on above: 1 Occurrences starti ng 04/24/2024 until 05/24/2025 Payers Date Payer Category Payer Medicare [employer] [place] HMO [id number] 2022-Present [phone] [address] [place]OTH[place] [id number] O [id number] 2020 Unknown [id number] 2018 Unknown 1960 Medicare [id number] 1959 Unknown [id number] 2.16.840.1.804555.3.579.2.593 1959 Unknown [id number] 2.16.840.1.637150.3.579.2.593 1959 Unknown [id number] 2.16.840.1.344079.3.579.2.593 1959 Unknown [id number] 2.16.840.1.158761.3.579.2.593 1959 Unknown [id number] 2.16.840.1.709720.3.579.2.593 1959 Unknown [id number] 2.16.840.1.084621.3.579.2.593 1959 Unknown [id number] 2.16.840.1.784261.3.579.2.593 1959 Unknown [id number] 2.16.840.1.881609.3.579.2.593 1959 Unknown [id number] 2.16.840.1.538642.3.579.2.593 1959 Unknown [id number] 2.16.840.1.023788.3.579.2.593 1959 Unknown [id number] 2.16.840.1.784601.3.579.2.1259 1959 Unknown [id number] 2.16.840.1.326071.3.579.2.1259 1959 Unknown [id number] 2.16.840.1.110711.3.579.2.1259 1959 Unknown [id number] 2.16.840.1.507258.3.579.2.1259 1959 Unknown [id number] 2.16.840.1.493969.3.579.2.1259 1959 Unknown [id number] 2.16.840.1.122876.3.579.2.1259 Social History Date Type Detail Facility Former smoker Former smoker CQ-[address] Work Phone: Tobacco smoking consumption unknown [facility] Start: 1960 Sex assigned at Not on file [facility] Gender identity Not on file [facility] inic NEGATED: Highlighted row - - OQ-Uaobumt-[address] Work Phone: Functional Status Date Assessment Result Facility Functional observable [facility] NEGATED: Highlighted row Functional performance Functional status health issues are not documented Disease YK-Gscvioe-[address] Work Phone: Mental Status Date Assessment Result Facility 02-12-2021 Cognitive functi ons [id number]:24 [facility] NEGATED: Highlighted row Cognitive function [Interpretation] Cognitive status health issues are not documented Disease ZG-Ovbvcyh-Utg[address] Work Phone: Clinical Notes 02-11-2021 to 05-14-2024 Michelle Florentino APRN.[facility] - 04/24/2024 4:50 PM EDTAustyn Mercer P - 04/19/2024 1:49 PM EDT<item> Note Date & Type Note Facility 05-14-2024 Note [facility] Note Reason for cardiology [...] history of COPD (chronic obstructive pulmonary disease) ([facility]), Hyperlipidemia, Hypertension, Pulmonary emphysema ([facility]), and Sleep apnea. Surgical History He has [...] hemoglobin 16, hematocrit (more content not included)... [facility] 04-24-2024 Note HNO ID: [id number] Author: MICHELLE FLORENTINO APRN.[facility] Service: ? Author Type: Nurse Practitioner Type: Progress Notes Filed: 04/24/2024 16:54 Note Text: Per Triage: Rigo Jefferson is a 64 year old male. that presents with symptoms of low back pain that radiates down the left leg. Previous spine surgery: Yes in [address] Sales. 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 [facility] 04-24-2024 History of Present illness Narrative Per Triage: Rigo Jefferson is a 64 year old male. that presents with symptoms of low back pain that radiates down the left leg. Previous spine surgery: Yes in [address] Sales. 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 Patient name: Rigo Jefferson Are you being referred by a Center for Spine Health Provider or Pain Management Provider at [facility]? No If answer is YES please [...] facility where the MRI/CT/myelogram was completed: [facility] Address: [address] [place] [address] MRI/CT/myelogram viewable in Epic: No If not, please provide [phone] to fax in imaging reports for review. [...] and/or physical therapy was completed Injections [facility] Address: [address] [place] [id number] Have you tried any other kinds of [...] of where the surgery was completed: 2001 [facility] or Cannot recall Additional Comments documented in this encounter [facility] 04-19-2024 Note HNO ID: [id number] Author: ?, ?, ? Service: ? Author Type: ? Type: Progress Notes Filed: 04/24/2024 16:54 Note Text: Patient name: Rigo Jefferson Are you being referred by a Center for Spine Health Provider or Pain Management Provider at [facility]? No If answer is YES please [...] facility where the MRI/CT/myelogram was completed: [facility] Address: [address] [place] [address] MRI/CT/myelogram viewable in Epic: No If not, please provide [phone] to fax in imaging reports for review. [...] and/or physical therapy was completed Injections [facility] Address: [address] [place] [address] Have you tried any other kinds of [...] [facility] or Cannot recall Additional Comments [facility] 12-09-2022 Note CONSULTATION PROCEDURE DATE: 12/09/2022 PROCEDURE: [...] our patients to inform us about any updq-rha-ogwixxz medications or herbal remedies/nutritional supplements/alternative remedies. 2. [...] options with their primary care provider. [facility] 11-25-2022 Note CONSULTATION CONSULTATION DATE: 11/25/2022 [...] of his shoulders, bilaterally, without contrast. [facility] 09-03-2022 Note CONSULTATION CONSULTATION DATE: 09/03/2022 [...] three months' time, unless otherwise indicated. [facility] 06-01-2022 Note CONSULTATION CONSULTATION DATE: 06/01/2022 [...] three months. CC: Shaikh Helena M.D. [facility] 05-18-2022 Note CONSULTATION CONSULTATION DATE: 05/18/2022 [...] to proceed. CC: Shaikh Helena M.D. [facility] 05-18-2022 Note CONSULTATION PROCEDURE DATE: 05/18/2022 [...] be followed up in the office. [facility] 04-29-2022 Note CONSULTATION CONSULTATION DATE: 04/29/2022 [...] for his injections with Dr. Duncan. [facility] 01-27-2022 Note CONSULTATION CONSULTATION DATE: 01/27/2022 [...] in three month's time, unless otherwise indicated. [facility] Signed and Approved by: RAVINDER ANDERSEN . 02/04/2022 16:12:00 [facility] 02-12-2021 Note Send Summary: Discharge Summary Providers: [...] at Discharge: .Home Vital Signs: T PRBPSpO2 Value36.76994802/8395% Date/Time02/12 12: 12: 12: 12: 12:10 Range(35.4C - 36.4C ) (77 - 99 ) (17 - 18 ) (127 - 147 )/ (83 - 91 ) (92% - 96% ) As of 12-Feb-2021 12:10:00, patient is on 2 L/min of oxygen Date: Weight/Scale Type:Height: 12-Feb-2021 01:72242.8 kg / ajllecms186.8 cm Hospital Course: 60 yo male with [...] Call to Schedule in: 2 weeks [facility] [address] [address] Discharge Medications: Home Medication clarithromycin 250 [...] tube placement Surgeon: Dr Chuck Caballero Resident/Fellow/Other Pattern Scratcher: Dr Saw Yo Anesthesia: GETA Estimated Blood [...] utilized to provide this telehealth service.Post op XW-[address] Work Phone: Evaluation note Constitutional: Well developed, awake/alert/oriented x3, no distress, alert and cooperativeSkin: warm and dryEyes: PERRL, EOMI, clear scleraENMT: MMMHead/Neck: NCATRespiratory/Thorax: good chest expansion, thorax symmetricCardiovascular: RRRGastrointestinal: Nondistended, soft, non-tender, no rebound tenderness or guardingMusculoskeletal: moves all extremitiesExtremities: well perfusedNeurological: grossly intactPsychological: Appropriate mood and behavior [facility] Evaluation note Diagnosis Spinal stenosis of lumbar region with neurogenic claudication- Primary Spinal stenosis, lumbar region, with neurogenic claudication documented in this encounter [facility] N[facility]ative* He is status [...] not he wants to follow-up with a rn disease management in our system. HU-[address] Work Phone: Hospital Discharge instructions* [...] follow-up / diaphragm pacer removal, hemidiaphragm plicationLocation: [address] [address] Number: [phone] * Gold Form - Other Clinicians:Other Clinician Instructions: Please take your medications as directed. Please follow-up with Dr. Caballero and with your PCP as directed. You may remove dressings and shower Tuesday. No heavy lifting >20lbs or strenours activity for 3 weeks. If your symptoms return orworsen, please seek medical attention. Thank you for allowing us to participate in your care. [facility] Diagnostic Procedure Only (Routine) - New Request Specialty Diagnoses / Procedures Referred By Contac t Referred To Contact XR IMAGING Diagnoses Spinal stenosis of lumbar region with neurogenic claudication Procedures XR LUMBAR MOTION 4V AP/LAT/ FLEX/EXT RADEX SPINE LUMBOSACRAL MINIMUM 4 VIEWS Michelle Florentino APRN.[facility] [address] [place] [id number] Xr Imaging [facility] Referral ID Status Reason Start Date Expiration Date Visits Requested Visits Authorized [id number] New Request Auto-Generat ed Referral 04/24/2024 05/24/2025 1 1 [facility] Family History No Family History [...] DATE CREATED AUTHOR AUTHOR'S ORGANIZ ATION 04/08/2021 [facility] DATE CREATED AUTHOR AUTHOR'S ORGANIZ ATION 12/31/2022 [facility] DATE CREATED AUTHOR AUTHOR'S ORGANIZ ATION 01/31/2024 [facility] EPIC DATE CREATED AUTHOR AUTHOR'S ORGANIZ ATION 04/26/2024 [facility] DATE CREATED AUTHOR AUTHOR'S ORGANIZ ATION 05/17/2024 [facility] Source Comments (unrecognize d section and content) In the event this informatio n is protected by the Federal Confidentiality of Alcohol and Drug Abuse Patient Records regulations: The Federal rules restrict any use of the information to criminally investigate or prosecute any alcohol or drug abuse patient.[facility] Care Teams (unrecognized sec tion and content) [place] Relationship Specialty Start Date End Date Tonny Hernandez MD [address] [place] [address] Referring Pain Management 04/16/24 FOR RECORDS PERTAINING [...] BE BASED ON THE PRIMARY CLINICAL RECORDS. [employer] [facility]. provides no warranty or guarantee of the accuracy or completeness of information in this document.
--- NOTE | 2024-05-22 14:00 | CA_ITS ---
Patient Name: RIGO JEFFERSON MR#: [id number] : 1960 Exam Date: 05/22/2024 Ordering Doctor: DR. ELIAS SPAULDING M.D. ECHOCARDIOGRAM REPORT PROCEDURE: CA ECHO DOPPLER COMPLETE INDICATIONS: Dyspnea on exertion, hypertension, left lung is nonfunctioning, left lung plication, COPD COMPARISON: None. DESCRIPTION: COMPLETE ECHOCARDIOGRAM Real-time transthoracic echocardiography with 2D, M-mode, spectral and color flow Doppler performed. QUALITY: Technical quality was good. LEFT VENTRICLE: Normal chamber size. Mild left ventricular hypertrophy LV EF: Global left ventricular systolic function is normal; visually estimated ejection fraction is 60 to 65%. No obvious wall motion abnormalities. DIASTOLIC: Unable to assess diastolic function. ATRIAL SEPTUM: Inadequately seen. LEFT ATRIUM: Normal chamber size. RIGHT ATRIUM: Normal chamber size. RIGHT VENTRICLE: Normal chamber size. Normal right ventricular systolic function. TRICUSPID VALVE: Normal mobility and thickness. No stenosis with no regurgitation. Unable to assess right-sided pressures due to lack of measurable tricuspid regurgitation. MITRAL VALVE: Normal mobility and thickness. No evidence of mitral valve stenosis. There is no mitral annular calcification. Trivial mitral regurgitation. AORTIC VALVE: Normal trileaflet appearance. No visible sclerosis. Normal leaflet mobility. No evidence of aortic valve stenosis. No aortic regurgitation. AORTIC ROOT: Normal diameter and appearance. PULMONIC VALVE: Normal thickness and mobility. No stenosis. No regurgitation. PERICARDIUM: No evidence of pericardial effusion. IVC: Collapses with inspirations. CONCLUSION: 1. Global left ventricular systolic function is normal; visually estimated ejection fraction is 60 to 65% 2. The right ventricle is poorly seen but appears normal in size and systolic function 3. Unable to assess diastolic function 4. The left atrium is normal in size 5. No significant valvular abnormalities Adult Echocardiography Procedure Report Left Ventricle LVEDD (3.7 - 5.6 cm): 4.23 cm LVESD (2.2 - 4.0 cm): 1.96 cm LVIVS thickness (0.6 - 1.2 cm): 1.37 cm LVPW thickness (0.5 - 1.0 cm): 0.93 cm E - e': 8.19 LVOT Max Gradient: 3.64 mm[Hg] LVOT Area (cm2): 0.95 m/s Peak Velocity (LVOT): 0.95 m/s Mean Velocity (LVOT): 0.62 m/s LVOT Diameter 2.32 cm Left Atrium LA Volume Index (2D A2C): 25.57 ml/m2 Left Atrium Systolic Dimension: 3.03 cm Mitral Valve MV E to A Ratio: 0.82, 0.77 Right Ventricle Aorta AO Root Diam: 3.43 cm Aortic Valve AoV Area (Peak Yung): 3.39 cm2, 3.39 cm2 AoV Area (VTI): 3.71 cm2, 3.71 cm2 Peak Velocity(Antegrade Flow): 1.19 m/s Peak Gradient(Antegrade Flow): 5.70 mm[Hg] Mean Velocity(Antegrade Flow): 0.82 m/s Mean Gradient(Antegrade Flow): 3.10 mm[Hg] Velocity Time Integral: 26.28 cm Tricuspid Valve Pulmonic Valve Mean Gradient: 2.69 mm[Hg] Mean Velocity: 0.75 m/s Peak Velocity: 1.20 m/s, 1.14 m/s Peak Gradient: 5.20 mm[Hg], 5.81 mm[Hg] Right Atrium Dictated by: Derek Irby M.D. on 05/24/2024 at 16:52 Approved by: Derek Irby M.D. on 05/24/2024 at 16:55
== END 2024-05-22 13:36 | disposition home or self-care (01) ==
LOC: CARD 13:36
PROVIDERS: PCP Internal Medicine; Visit Provider Internal Medicine Cardiovascular Disease
DX: R06.09 Other forms of dyspnea (principal)
CPT/HCPCS: 93306

== ENCOUNTER 2024-06-06 08:12 | Outpatient (OUT) | payer OTHER, SELFPAY ==
--- OUTSIDE RECORDS SUMMARY | 2024-06-06 08:16 | XMS_ITS | CCD ---
Author Organization [facility] Care Team Providers Care Resource Development Director Name Role Phone Chandan Cool Unavailable Unavailable Osorio Sid William Unavailable Unavailable Required, No Pcp Unavailable Unavailable Ada Chuck Unavailable None, No PCP Unavailable Unavailable [facility], [facility] Primary Care Unavailable SPRING, DR RADHA Gaxiola Consulting Unavailable DUNCAN ., DR LLUVIA Sheldon Attending Unavailable DUNCAN ., DR LLUVIA Sheldon Admitting Unavailable DUNCAN ., DR LLUVIA Sheldon Consulting Unavailable [facility], [facility] Primary Care Unavailable DUNCAN ., DR LLUVIA Sheldon Attending Unavailable DUNCAN ., DR LLUVIA Sheldon Consulting Unavailable DUNCAN ., DR LLUVIA Sheldon Admitting Unavailable [facility] Primary Care Unavailable DUNCAN ., DR LLUVIA Sheldon Attending Unavailable DUNCAN ., DR LLUVIA Sheldon Consulting Unavailable DUNCAN ., DR LLUVIA Sheldon Admitting Unavailable [facility], [facility] Primary Care Unavailable ANDERSEN .RAVINDER Consulting Unavailable DUNCAN ., DR LLUVIA Sheldon Admitting Unavailable DUNCAN ., DR LLUVIA Sheldon Attending [facility] Primary Care Unavailable ANDERSEN .RAVINDER Consulting Unavailable DUNCAN ., DR LLUVIA Sheldon Admitting Unavailable DUNCAN ., DR LLUVIA Sheldon Attending [facility] Primary Care Unavailable LAKSHMIPATHY ., NARENDRANATH Attending Nadira vailable LAKSHMIPATHY ., NARENDRANATH Admitting Nadira vailable [facility], [facility] Primary Care Unavailable LAKSHMIPATHY ., NARENDRANATH Attending Nadira vailable LAKSHMIPATHY ., NARENDRANATH Consulting Nadira vailable LAKSHMIPATHY ., NARENDRANATH Admitting Nadira vailable [facility], [facility] Primary Care Unavailable LAKSHMIPATHY ., NARENDRANATH Consulting Nadira vailable LAKSHMIPATHY ., NARENDEMERYATH Admitting Nadira vailable LAKSHMIPATHY ., TONNY Attending Nadira vailable SHAIKH JASSO H Primary Care Unavailable NATHALY .RAVINDER Consulting Unavailable CUCO ., DR LLUVIA Sheldon Attending Unavailable CUCO ., DR LLUVIA Sheldon Admitting Unavailable HELENA, COREAS H Primary Care Unavailable LAKSHMIPATHY ., TONNY Attending Nadira vailable RINA, DR DOMINGA William Consulting Unavailable LAKSHMIPATHY ., TONNY Admitting Nadira vailable LAKSHMIPATHY ., TONNY Consulting Nadira vailable ITZKOCHARLIE, JONATHAN H Attending Unavailable ITJONATHAN MALDONADO Attending Unavailable ELENWDAMI, Attending Unavailable ELENWDAMI, Attending Unavailable HELENA, Attending Unavailable HELENA, Attending Unavailable Tonny Hernandez MD Unavailable ELIAS SPAULDING Attending Unavailable Medications Current Medications Medication Drug Class(es) Dates Sig (Normalized) Sig (Original) acetaminophen 325 mg oral tablet (1 source) Start: 02-12-2021 End: 02-18-2021 take 2 tablets by mouth every six hours acetaminophen 325 mg oral tablet ; 2 tab(s) orally every 6 hours as needed for pain Quantity: 56 Refills: 0 Ordered: 12-Feb-2021 Marcell Jesusita Start: 12-Feb-2021 End: 18-Feb-2021 Generic Substitution Allowed 12 hr cetirizine hydrochloride 5 mg / pseudoephedrine hydrochloride 120 mg extended release oral tablet (2 sources) alpha-Adrenergic Agonist, Histamine-1 Receptor Antagonist take 1 tablet by mouth twice daily cetirizine-pseudoep hedrine (ZYRTEC-D) 5-120 mg per tablet Take 1 tablet by mouth two times a day. Active diazePAM 10 mg oral tablet (2 sources) Benzodiazepine Start: 04-02-2024 diazePAM (VALIUM) 10 mg tablet Take 10 mg by mouth. 04/02/2024 Active diclofenac sodium 50 mg delayed release oral [...] Ordered: 11-Feb-2021 Jany Ann Generic Substitution Allowed fluticasone propionate 0.05 mg/actuat metered dose nasal spray (2 sources) Corticosteroid Start: 03-15-2023 fluticasone (FLONASE) 50 mcg/actuation nasal spray 2 Sprays. 03/15/2023 Active meloxicam 15 mg oral tablet (2 sources) Nonsteroidal Anti-inflammatory Drug Start: 04-10-2024 meloxicam (MOBIC) 15 mg tablet Take 15 mg by mouth. 04/10/2024 Active montelukast 10 mg oral tablet (2 sources) Leukotriene Receptor Antagonist take 1 tablet by mouth once daily montelukast (SINGULAIR) 10 mg tablet Take 10 mg by mouth once daily. Active phentermine hydrochloride 37.5 mg oral tablet (2 sources) Sympathomimetic Amine Anorectic Start: 05-21-2024 End: 06-20-2024 Phentermine HCl 37.5 mg tablet Take 37.5 mg by mouth. 05/21/2024 06/20/2024 Active See emr (1 source) See emr Quantity : 0 Refills: 0 Ordered: 12-Dec-2017 Isabel Dejesus Status: Discontinued Generic Substitution Allowed 1 ml testosterone cypionate 200 mg/ml injection (2 sources) Androgen Start: 12-12-2023 testosterone cypionate (DEPO-TESTOSTERONE) 200 mg/mL injection Inject 100 mg intramuscularly every 4 weeks. 12/12/2023 Active zonisamide 50 mg oral capsule (2 sources) Anti-epileptic Agent zonisamide (ZONEGRAN) 50 mg capsule 50 mg. Active Completed/Discontinued Medications Medication Drug Class(es) Dates Sig (Normalized) Sig (Original) acetaminophen 325 mg / oxyCODONE hydrochloride 5 mg oral tablet (9 sources) Opioid Agonist Start: 12-31-2016 oxyCODONE-Acetamin ophen 5-325 MG Oral Tablet Quantity: 120 Refills: 0 Ordered: 31-Dec-2016 DO Start : 31-Dec-2016 Active take 1 tablet by lizzie th every six hours as needed oxyCODONE-acetaminophen (PERCOCET) 5-325 mg tablet Take 1 tablet by mouth four times a day as needed. Active take 1 tablet by lizzie th [...] 23-Mar-2017 Active atenolol 25 mg oral tablet (5 sources) beta-Adrenergic Mook Start: 01-25-2017 Atenol ol 25 MG Oral Tablet Quantity: 60 Refills: 0 DO Start : 25-Jan-2017 Active atorvastatin 40 mg oral tablet (8 sources) HMG-CoA Reductase Inhibitor Start: 01-25-2017 Atorvastatin Calcium 40 MG Oral Tablet Quantity: 30 Refills: 0 Ordered: 25-Jan-2017 DO Start : 25-Jan-2017 Active Start: 01-25-2017 Atorvastatin C alcium 40 MG Oral Tablet Quantity: 30 Refills: 0 DO Start : 25-Jan-2017 Active take 1 tablet by lizzie th once daily atorvastatin (LIPITOR) 20 mg tablet Take 20 mg by mouth once daily. Active 60 actuat budesonide 0.16 mg/actuat / formoterol fumarate 0.0045 mg/actuat metered dose inhaler (3 sources) Corticosteroid, beta2-Adrenergic Agonist Start: 03-23-2017 Symbicort 160-4.5 MCG/ACT Inhalation Aerosol Quantity: 10 Refills: 0 DO Start : 23-Mar-2017 Active clarithromycin 500 mg oral tablet (9 sources) Macrolide Antimicrobial Start: 07-25-2017 take 1 tablet by mouth every twelve hours Clarithromycin 500 MG Oral Tablet TAKE 1 TABLET BY MOUTH EVERY 12 HOURS (hold lipitor for TEN days) Quantity: 14 Refills: 0 Ordered: 25-Jul-2017 DO Start : 25-Jul-2017 Active take 1 tablet by mouth once shlomo y clarithromycin (BIAXIN) 250 mg tablet Take 250 mg by mouth once daily. Active famotidine 20 mg oral tablet (3 sources) [...] 17 MCG/ACT Inhalation Aerosol Solution Refills: 0 hCandan Sheffield Start : 28-Nov-2017 Active lisinopril 20 [...] Spondylosis; intervertebral disc disorders; other back problems (12 sources) Cervicalgia; Translations: [Muscle spasm of back] [...] Test Name Value Interpretation Reference Range Facility No Panel Informationon 05-31 Radiology Study observation (narrative) [facility] XR CERV OTHER 4V AP/LAT/FLX/ EXTon 05-31-2024 IMPRESSION: Severe degenerative disc disease C4-C5. Solid bony fusion C5-C7. Food Products Tester: SINAN Transcribe Date/Time: May 31 2024 9:27P Dictated by : JENN SANTOYO MD This examination was interpreted and the report reviewed and electronically signed by: JENN SANTOYO MD on May 31 2024 9:29PM [facility] * * *Final Report* * * DATE OF EXAM: May 31 2024 2:54PM [id number] - XR CERVICAL 4V AP/LAT/FLX/EXT / PROCEDURE REASON: Cervical vertebral fusion * * * * Physician Interpretation * * * * CERVICAL SPINE X-RAYS HISTORY: Cervical fusion, Lower back pain. Cervical vertebral fusion TECHNIQUE: 4 views of the cervical spine with flexion-extension views. COMPARISON: None RESULT: Counting reference: Craniocervical junction. Remote anterior fusion C5-C6 with anterior plate and screw fixation. There is solid bony fusion C5-C7. Severe degenerative disc disease with anterior osteophyte formation noted at C4-C5. There is mild degenerative disc disease at C3-C4. Alignment is maintained with flexion and extension. No prevertebral soft tissue swelling. [facility] Provider, [facility] - 05/31/2024 * * *Final Report* * * DATE OF EXAM: May 31 2024 2:54PM VHX [id number] - XR CERVICAL 4V AP/LAT/FLX/EXT / PROCEDURE REASON: Cervical vertebral fusion * * * * Physician Interpretation * * * * CERVICAL SPINE X-RAYS HISTORY: Cervical fusion, Lower back pain. Cervical vertebral fusion TECHNIQUE: 4 views of the cervical spine with flexion-extension views. COMPARISON: None RESULT: Counting reference: Craniocervical junction. Remote anterior fusion C5-C6 with anterior plate and screw fixation. There is solid bony fusion C5-C7. Severe degenerative disc disease with anterior osteophyte formation noted at C4-C5. There is mild degenerative disc disease at C3-C4. Alignment is maintained with flexion and extension. No prevertebral soft tissue swelling. IMPRESSION IMPRESSION: Severe degenerative disc disease C4-C5. Solid bony fusion C5-C7. Food Products Tester: PSCB Transcribe Date/Time: May 31 2024 9:27P Dictated by : JENN SANTOYO MD This examination was interpreted and the report reviewed and electronically signed by: JENN SANTOYO MD on May 31 2024 9:29PM EST [facility] XR CERV OTHER 4V AP/LAT/FLX/ EXTOrdered By: [facility] Provider on 05-31-2024 [facility] XR Lumbar spine Views W flex ion and W extensionon 05-31-2024 IMPRESSION: Mild to moderate multilevel degenerative change lumbar spine and suspected diffuse intrahepatic skeletal hyperostosis. Food Products Tester[facility] Transcribe Date/Time: May 31 2024 9:29P Dictated by : JENN SANTOYO MD This examination was interpreted and the report reviewed and electronically signed by: JENN SANTOYO MD on May 31 2024 9:31PM EST [facility] * * *Final Report* * * DATE OF EXAM: May 31 2024 2:54PM VHX [id number] - XR LUMBAR 4V AP/LAT/ FLEX/EXT / PROCEDURE REASON: Spinal stenosis of lumbar region with neurogenic claudication * * * * Physician Interpretation * * * * LUMBAR SPINE X-RAYS HISTORY: Cervical fusion, Lower back pain. Spinal stenosis of lumbar region with neurogenic claudication TECHNIQUE: 4 views of the lumbar spine including flexion and extension views. COMPARISON: None RESULT: Counting reference: Lumbosacral junction. For the purposes of this report, L5-S1 is considered the last lumbar type disc space and L4-5 is considered the level of the iliac crest. Multilevel degenerative disc disease throughout the lumbar spine, moderate at L3-L4 and mild throughout the remainder of the lumbar spine. There is prominent anterior osteophyte formation throughout the lumbar spine with bridging osteophytes at L2-L3 suggesting diffuse intrahepatic skeletal hyperostosis. Mild facet arthropathy noted lower lumbar spine. No acute fracture or compression deformity identified. [facility] Provider, [facility] - 05/31/2024 * * *Final Report* * * DATE OF EXAM: May 31 2024 2:54PM VHX 5231 - XR LUMBAR 4V AP/LAT/ FLEX/EXT / PROCEDURE REASON: Spinal stenosis of lumbar region with neurogenic claudication * * * * Physician Interpretation * * * * LUMBAR SPINE X-RAYS HISTORY: Cervical fusion, Lower back pain. Spinal stenosis of lumbar region with neurogenic claudication TECHNIQUE: 4 views of the lumbar spine including flexion and extension views. COMPARISON: None RESULT: Counting reference: Lumbosacral junction. For the purposes of this report, L5-S1 is considered the last lumbar type disc space and L4-5 is considered the level of the iliac crest. Multilevel degenerative disc disease throughout the lumbar spine, moderate at L3-L4 and mild throughout the remainder of the lumbar spine. There is prominent anterior osteophyte formation throughout the lumbar spine with bridging osteophytes at L2-L3 suggesting diffuse intrahepatic skeletal hyperostosis. Mild facet arthropathy noted lower lumbar spine. No acute fracture or compression deformity identified. IMPRESSION IMPRESSION: Mild to moderate multilevel degenerative change lumbar spine and suspected diffuse intrahepatic skeletal hyperostosis. Food Products Tester: SINAN Transcribe Date/Time: May 31 2024 9:29P Dictated by : JENN SANTOYO MD This examination was interpreted and the report reviewed and electronically signed by: JENN SANTOYO MD on May 31 2024 9:31PM EST [facility] Office Visiton 05-14-2024 Follow-up visit [id number] Rigo Jefferson 1960 M Date Provider Department Center 05/14/2024 [id number] SPAULDING AYAAN [facility] Family History Problem Relation Age of Onset Diabetes Mother Hypertension Mother Hypertension Father Coronary artery disease Brother Hypertension Brother Diabetes Brother Family Status - Relation Status Age at Mother Father Brother Level of Service:82973 [place] OFFICE/OUTPATIENT NEW MODERATE MDM 45 MINUTES Reason for Visit and Comments: Hypertension [091812] - New patient to re-establish care. Ref for hypertension. Used to be on antihypertensives but is currently on none. Palpitations [] - Sometimes Shortness of Breath [] - Has 1 lung, hx of COPD, pulmonary emphysema Dizziness [] Normal [facility] MRI SHOULDER LT WO CONon MRI SHOULDER [...] by: DOMINGA FLYNN Date: 2022-12-08 10:25 Normal [facility] MRI SHOULDER RT WO CONon [...] by: DOMINGA FLYNN Date: 2022-12-08 10:35 Normal [facility] XR CSPINE OBL FLEX_EXTon XR [...] Date: 2022-05-31 20:33 Normal [facility] (General Surgery)on 04-02-2021 Post Op [...] not he wants to follow-up with a gas plant dispatcher in our system. Provider Impressions He is [...] not he wants to follow-up with a gas plant dispatcher in our system. Chief Complaint An interactive [...] not he wants to follow-up with a gas plant dispatcher in our system. Active Problems COPD (chronic [...] MG Oral Tablet Results/Data Xray Chest 1 [id number] 04:27PMJesusita Faith Test NameResultFlagReference Xray Chest 1 View(Report) FINAL REPORT Interpreted by: МАРИНА MARCELO MD 02/12/21 16:52 Patient Name: RIGO JEFFERSON STUDY: CHEST 1 VIEW; 02/12/2021 4:27 pm INDICATION: chest tube removal. COMPARISON: Prior 11:07 a.m. radiograph. ACCESSION NUMBER(S): [id number] ORDERING CLINICIAN: JESUSITA FAITH FINDINGS: Left basilar [...] Apr 02 2021 5:38PM EST (Author) Normal [facility] Admission Risk Screen - Adul ton 02-12-2021 Admission Risk Screen - Adult Allergies: Allergies: No Known Allergies: Patient Verification: New W ID Band Applied in my Departmentno Type of ID Patient is WearingW wristband, but not applied here Patient Transferred from Other Facility ([facility], [facility],etc)no Patient Identity Verified Bypatient ID Band [...] AlertFor Ebola-like Symptoms: Isolate Patient and Notify Provider/Brand Ambassador Promotional Model For Contact: Notify Provider/Brand Ambassador Promotional Model Advance Directive: Advance Directive/DNRno (1) Advance Directive [...] Learning Preferencesverbal instruction Cultural Considerationsnone Developmental Considerationsnone Congregational Considerationsnone Learning Assessment (Other Learner): Other learner availableno Depression Screen: During the past month, have you often been bothered by feeling down, depressed or hopelessno (1) During the past month, have you often had little interest or pleasure in doing thingsno (1) Have you had any thoughts of harming anyone elseno (1) [place] Suicide: Risk Screen Not Applicable/Able to Answerable to be screened In the Past Month: Have you wished you were or could go to sleep and not wake upno(1) In the Past Month: Have you had any actual thoughts of killing yourself no(1) Lifetime: Have you ever done, started to do, or prepared to do anything to end your lifeno(1) [place] Suicide Risknegative Adult Nutrition Screen: Have you [...] Normal [facility] BASIC METABOLIC PANELon 06- 0-2020 Anion gap [Moles/Vol] 15 mmol/L Normal 10 - 20 [facility] Comment on above: Performed By: #### B MP #### [facility] [address] [place] [address] Calcium [Mass/Vol] 9.5 mg/dL Normal 8.6 - 10.6 [facility] Comment on above: Performed By: #### B MP #### [facility] [address] [place] [address] Chloride [Moles/Vol] 102 mmol/L Normal 98 - 107 [facility] Comment on above: Performed By: #### B MP #### [facility] [address] [place] [address] Creatinine [Mass/Vol] 0.98 mg/dL Normal 0.50 - 1.30 [facility] Comment on above: Performed By: #### B MP #### [facility] [address] [place] [address] GFR- AM. >60 Normal >60 [facility] [place] Comment on above: Result Comment: CALC ULATIONS OF ESTIMATED GFR ARE PERFORMED USING THE MDRD STUDY EQUATION FOR THE IDMS-TRACEABLE CREATININE METHODS. CLIN CHEM 2007;53:766-72 Performed By: #### B MP #### [facility] [address] [place] [address] GFR-NON AM. >60 Normal >60 [facility] Comment on above: Performed By: #### B MP #### [facility] [address] [place] [address] Glucose [Mass/Vol] 133 mg/dL High 74 - 99 [facility] Comment on above: Performed By: #### B MP #### [facility] [address] [place] [address] HCO3 (Bld) [Moles/Vol] 24 mmol/L Normal 21 - 32 [facility] Comment on above: Performed By: #### B MP #### [facility] [address] [place] [address] Potassium [Moles/Vol] 4.3 mmol/L Normal 3.5 - 5.3 [facility] Comment on above: Performed By: #### B MP #### [facility] [address] [place] [address] Sodium [Moles/Vol] 137 mmol/L Normal 136 - 145 [facility] Comment on above: Performed By: #### B MP #### [facility] [address] [place] [address] Urea nitrogen [Mass/Vol] 17 mg/dL Normal 6 - 23 [facility] Comment on above: Performed By: #### B MP #### [facility] [address] [place] [address] CBCon 02-12-2021 Erythrocyte distribution width (RBC) [Ratio] 12.1 % Normal 11.5 - 14.5 [facility] Comment on above: Performed By: #### C BC #### [facility] [address] [place] [address] Hematocrit (Bld) [Volume fraction] 45.8 % Normal 41.0 - 52.0 [facility] Comment on above: Performed By: #### C BC #### [facility] [address] [place] [address] Hemoglobin (Bld) [Mass/Vol] 15.0 g/dL Normal 13.5 - 17.5 [facility] Comment on above: Performed By: #### C BC #### [facility] [address] [place] [address] MCHC (RBC) [Mass/Vol] 32.8 g/dL Normal 32.0 - 36.0 [facility] Comment on above: Performed By: #### C BC #### [facility] [address] [place] [address] MCV (RBC) [Entitic vol] 94 fL Normal 80 - 100 [facility] Comment on above: Performed By: #### C BC #### [facility] [address] [place] [address] NUCLEATED RBC 0.0 /100 WBC Normal 0.0-0.0 [facility] [place] Comment on above: Performed By: #### C BC #### [facility] [address] [place] [address] Platelets (Bld) [#/Vol] 228 10*3/uL Normal 150 - 450 [facility] Comment on above: Performed By: #### C BC #### [facility] [address] [place] [address] RBC 4.85 x10E12/L Normal 4.50 - 5.90 [facility] Comment on above: Performed By: #### C BC #### [place] [address] [place] [address] WBC (Bld) [#/Vol] 12.8 10*3/uL High 4.4 - 11.3 [facility] Comment on above: Performed By: #### C BC #### [facility] [address] [place] [address] Clinical Event Note-POCon Clinical Event Note-POC Clinical [...] Normal [facility] Daily Progress Note-Surgeryo n 02-12-2021 Daily Progress [...] yet. Objective Data: Objective Information: T PRBPSpO2 [id number]/8695% Date/Time02/12 6:4902/12 6:4902/12 6:4902/12 6:4902/12 6:49 Range(35.4C - 36.4C ) (77 - 99 ) (17 - 18 ) (127 - 147 )/ (86 - 91 ) (95% - 96% ) Pain reported at 02/12 2:54: 6 = Moderate ---- Intake and Output ----- Mn/Dy/Year TimeIntakeOutdzilth-na-o-dith-hle health centerNet Feb 12, 2021 6:00 [id number] Feb 11, 2021 10:00 [id number] The Intake and Output Totals for the last 24 hours are: IntakeOutputNet [id number] Physical Exam by System: Constitutional: Well developed, [...] Normal [facility] Discharge Planning [id number] 0 02-12-2021 Discharge Planning Note2 Discharge Planning: Needs Prior to Discharge (ex. Home Care Orders, IV/O2 prescriptions) Follow up appointments Discharge Barriers (ex. Avoidable days, wait guardianship, pt refuse leave) None Planned Dispositionhome Discharge DestinationHome [facility] [place] of Choice Explainedyes preference Anticipated Discharge [id number] Discharge Planning 02/12/2021 0135 Discharge Plan Patient transferred from [place] [address] from PACU for diaphragm plication. Pt is A&O times 4. at 3 liters oxygen. Pt denies any medical office supervisor use at home. Pt emergency psychologist personnel Sahil Joe- son. Pt have valuable belongings [...] disposition: Home Potential Barriers: none ADOD: 02/12. regional sales coordinator will continue to follow for discharge planning needs. Franny Gilliam RN, Transitional Coat Tailor/TCC, pager [phone] Discharge note: 02/12/21 @ 1735: PT discharged home at this time. pts peripheral IV taken out prior to DC. pt given DC instructions. pt verbalized understanding. pt refused transport and walked downstairs with his son.---Erika stock land measurer: Discharge Planning Assessment [id number] Primary Contact Name and NumberAdam [phone](1) Stated Reason for Admissiondiaphragm plication(2) [place] (2) Lives Withparent(s)(2) Living Arrangementshouse(2) Resource/Environmental Concernsnone(2) [place]ticipated Transition [place](2) Services Anticipated at Transitionnone(2) Discharge Documentation: Discharge/Transfer Date/[id number] 17:35 Discharge Modeambulatory Discharged Accompanied Byfamily member Transportation Methodprivate car Valuables/Medications/Belo ngings Returnedyes Final DispositionHome Electronic Signatures: Franny Gilliam (CLIN COOR) (Signed 12-Feb-2021 13:19) Authored: Discharge Planning Erika Stock (ASIA) (Signed 12-Feb-2021 17:40) Authored: Discharge Planning, Discharge Documentation Mary Beth Holcomb (RN) (Signed 12-Feb-2021 01:41) Authored: Discharge Planning, Assessment Last Updated: 12-Feb-2021 17:40 by Erika Stock (ASIA) References: 1. Data Referenced From Patient Profile - Preop v2 11-Feb-2021 12:02 2. Data Referenced From Patient Profile - Adult v2 12-Feb-2021 01:31 Normal [facility] Discharge [id number] 10- 021 Discharge Profile2 Discharge Orders: Anticipated Discharge Date: Anticipated Discharge [id number] DNAR: DNAR Status: none Call Provider If [...] hemidiaphragm plication Call to Schedule in2 weeks [id number] [place] [address] Phone [phone] Other Clinician Instructions: Other Instructions: Other Clinician [...] Appointments, Other Clinician Instructions, Gold Form - Literature Teacher Summary Last Updated: 12-Feb-2021 15:27 by Jesusita Faith ( (Resident)) Normal [facility] Laboratory - Chemistry and C hemistry - challengeon 02-12-2021 Anion gap [Moles/Vol] 15 mmol/L 10 - 20 HE-Vysdkkc[address] Work Phone: Calcium [Mass/Vol] 9.5 mg/dL 8.6 - 10.6 MG-Tino raysa-[address] Work Phone: Chloride [Moles/Vol] 102 mmol/L 98 - 107 UB-Txttooa-[address] Work Phone: [phone] CO2 [Moles/Vol] 24 mmol/L 21 - 32 MG[facility]ger y[facility] Work Phone: [phone] Creatinine [Mass/Vol] 0.98 mg/dL See Below JR-Quqvuct-[address] Work Phone: [phone] Comment on above: Reference Range: 0.5 0 - 1.30 Glucose [Mass/Vol] 133 mg/dL above high threshold 74 - 99 ND-Snxdnja-F [address] Work Phone: [phone] Potassium [Moles/Vol] 4.3 mmol/L 3.5 - 5.3 KB-Ftwwbjb-I [address] Work Phone: [phone] Sodium [Moles/Vol] 137 mmol/L 136 - 145 MG-Tino raysa-[facility] Work Phone: [phone] Urea nitrogen [Mass/Vol] 17 mg/dL 6 - 23 ID-Dabrkyg-[facility] Work Phone: [phone] Laboratory - Hematology and Cell countson 02-12-2021 Erythrocyte distribution width (RBC) [Ratio] 12.1 % See Below RL-Bybkrus-L [address] Work Phone: [phone] Comment on above: Reference Range: 11. 5 - 14.5 Hematocrit (Bld) [Volume fraction] 45.8 % See Below IJ-Wnypxvb-A [address] Work Phone: [phone] Comment on above: Reference Range: 41. 0 - 52.0 Hemoglobin (Bld) [Mass/Vol] 15.0 g/dL See Below WW-Hhxwtjn-W [address] Work Phone: Comment on above: Reference Range: 13. 5 - 17.5 MCHC (RBC) [Mass/Vol] 32.8 g/dL See Below NJ-Bcvozwr-K [address] Work Phone: [phone] Comment on above: Reference Range: 32. 0 - 36.0 MCV (RBC) [Entitic vol] 94 fL 80 - 100 PU-Soekfbs-X [address] Work Phone: Platelets (Bld) [#/Vol] 228 10*3/uL 150 - 450 BU-Tsftguj-[address] Work Phone: RBC (Bld) [#/Vol] 4.85 {x10E12/L} See Below MG -Surgery-G [address] Work Phone: Comment on above: Reference Range: 4.5 0 - 5.90 WBC (Bld) [#/Vol] 12.8 10*3/uL above high threshold 4.4 - 11.3 NV-Wtdkxil-P [address] Work Phone: No Panel Informationon 02-12 >60 >60 PB-Zfwjlnx-[address] Work Phone: Comment on above: CALCULATIONS OF LANRE MATED GFR ARE PERFORMED USING THE MDRD STUDY EQUATION FOR THE IDMS-TRACEABLE CREATININE METHODS. CLIN CHEM 2007;53:766-72 0.0 {/100_WBC} 0.0-0.0 MG-Surgery -[address] Work Phone: Order Reconciliationon 02-12 Order Reconciliation [...] Normal [facility] Patient Profile - Adult v2on 02-12-2021 Patient Profile - Adult v2 Profile: Initial Info: How to be AddressedDel(1) Spoken Language PreferredEnglish (1) Stated Reason for Admissiondiaphragm plication Patient Belongingsremains with patient Patient Belongings Remaining with Patientcash/credit card; clothing Arrived FromOR Medications Brought to Hospitalno Are you currently using the Personal Electronic Health Record or Debitosno (1) Wants Family/Rep Notified of Admissionyes, primary contact Notify PCPnotify PCP Informed of Patient Visiting Rightsyes General Health: Blood Avoidance/Restrictionsnone (1) Previous Transfusion Reactionno(2) Weight in kg109.8 kilogram(s)(3) Weight in gte516 pound(s) Weight Methodactual (measured) (3) Scale Typestanding [...] Last Updated: 12-Feb-2021 01:34 by Mary Beth HolcombRN) References: 1. Data Referenced From Patient Profile - Preop v2 11-Feb-2021 12:02 2. Data Referenced From Patient Profile - Adult v2 12-Dec-2017 16:00 3. Data Referenced From 1. Vital Signs 11-Feb-2021 12:02 Normal [facility] Radiologyon 02-12-2021 XR Chest Single view Normal JG-Xffjqrg-[address] Work Phone: XR Chest Single view Normal VI-Nzvgjqa-[address] Work Phone: XR Chest Single view Normal NU-Vibqwte-[address] Work Phone: TH CHEST 1 VIEWon 02-12-2021 TH CHEST 1 VIEW Patient Name: RIGO JEFFERSON STUDY: CHEST 1 VIEW; 02/12/2021 4:27 pm INDICATION: chest tube removal. COMPARISON: Prior 11:07 a.m. radiograph. ACCESSION NUMBER(S): [id number] ORDERING CLINICIAN: JESUSITA FAITH FINDINGS: Left basilar [...] Normal [facility] TH CHEST 1 VIEW Patient Name: RIGO JEFFERSON STUDY: CHEST 1 VIEW; 02/12/2021 11:58 am INDICATION: chest tube wet seal. COMPARISON: 7:02 a.m. radiograph. ACCESSION NUMBER(S): [id number] ORDERING CLINICIAN: JESUSITA FAITH FINDINGS: Left basilar [...] Electronically signed by: МАРИНА MARCELO MD Normal [facility] CHEST 1 VIEW Patient Name: RIGO JEFFERSON STUDY: CHEST 1 VIEW; 02/12/2021 7:13 am INDICATION: POD 1 s/p diaphragm plication. COMPARISON: 02/11/2021. ACCESSION NUMBER(S): [id number] ORDERING CLINICIAN: SAW YO FINDINGS: Left basilar [...] Normal [facility] No Panel Informationon 02-11 CW-Nuipnfz[place] [address] Work Phone: Operative Reports - [facility] [place] [address] Patient Name: RIGO JEFFERSON : 1960 Date of Service: 02/11/2021 Patient Location: [place] [address] Patient Type: I Surgeon: Chuck Caballero MD Report Type: Operative Reports PREOPERATIVE DIAGNOSIS: Chronic respiratory failure, left diaphragm dysfunction. POSTOPERATIVE DIAGNOSIS: Chronic respiratory failure, left diaphragm dysfunction. OPERATION/PROCEDURE: Laparoscopic left diaphragm plication with removal of previous diaphragm pacing wires. SURGEON: Chuck Caballero MD LEARNING ANALYST(S): Saw Yo MD. There was no available resident. ANESTHESIA: LOCATION: [facility]. CLINICAL NOTE: This is a patient [...] TT: 02/12/2021 12:44 PM EST DICTATION NUMBER: [id number] BRIE JOB NUMBER: [id number] CC: PT STATES NONE PCP Electronic Signatures: Chuck Caballero) (Signed on 13-Feb-2021 10:15) Authored Unsigned, Draft (SYS GENERATED) (Entered on 12-Feb-2021 12:44) Entered Last Updated: 13-Feb-2021 10:15 by Chuck Caballero) Normal [facility] Order Reconciliationon 02-11 Order Reconciliation Page 1 Admission Reconciliation Document Reconciliation Type: Admission from OR requested on behalf of Saw Yo (Physician) done by Saw Yo) Admission from OR - Reconciliation: 11-Feb-2021 18:31 by: Saw Yo) Home MedicationsEnteredLast Dose TakenReconciled with current Order Reconciliation Comment/ Additional Information Kristina 24 Hour Allergy oral tablet 1 tab(s) orally once a [id number]-Feb-2021 AM Reviewed and Held clarithromycin 250 mg oral tablet 250 milligram(s) orally once a day Clarithromycin Tablet (BIAXIN)DOSE = 250 mg Oral Every 24 Hoursclarithromycin 250 mg oral tablet continued as the inpatient order Clarithromycin diclofenac sodium 50 mg oral delayed release tablet 1 tab(s) orally 2 times a [id number] AM Reviewed and Held oxycodone-acetaminophen 5 mg-300 mg oral tablet 1 tab(s) orally 2 times a day [id number] AM Reviewed and Held Additional Current Orders [...] Normal [facility] Patient Profile - Preop v2on 02-11-2021 Patient Profile - Preop v2 Profile: Initial Info: How to be AddressedDel(1) Spoken Language PreferredEnglish (1) Source of Informationpatient Are you currently using the Personal Electronic Health Record or Debitosno (1) Are you interested in learning more about [employer] for the management of your healthnot at this time Stated Reason for AdmissionL pulling of wires/pulling lung down [phone] Patient Belongingspatient educated regarding responsibility for personal items Medications Brought to Hospitalno General Health: Weight in kg109.8 kilogram(s) Weight in jas220 pound(s) Weight Methodactual (measured) Scale Typestanding Height [...] Learning Preferencesverbal instruction Cultural Considerationsnone Developmental Considerationsnone Congregational Considerationsnone Other learner availableno Falls RiskPatient location auto qualifies him/her for HIGH RISK. Are there any cultural, spiritual, rastafari practices/values/needs that are important for us to [...] Normal [facility] Preop Checkliston 02-11-2021 Preop Checklist Preop Checklist: Preop Checklist: Arrival [id number] Arrival Time11:48 Procedure TypeL laparoscopic diaphragm plication Temperature C36.1 degrees C Temperature F96.9 degrees F Heart Rate70 beats per minute Respiratory Rate12 breath per minute Blood Pressure Akkoppap057 mm/Hg Blood Pressure Poqixkjqe11 mm/Hg NPO [id number] 00:00 ID Band Onyes Allergy Bandno known [...] Normal [facility] Radiologyon 02-11-2021 XR Chest Single view Please click on the link to view the study images Normal SA-Ogvdqjr[place] [address] Work Phone: [facility] Surgical Pathology Depar tmenton 02-11-2021 [facility] Surgical Pathology Department Name RIGO JEFFERSON Pathologist: JACINTO MURRIETA MD Date of Procedure: 02/11/2021 Date Received: 02/12/2021 Date Reported 02/19/2021 Submitting Physician: CHUCK CABALLERO M.D. Location: [facility] Copy To/Referring/Attending: CHUCK CABALLERO M.D. Other External [...] this case. Clinical History: Physician Contact Number: [id number] Fixative (A): Fresh Clinical Diagnosis History: disorders of diaphragm Specimens Submitted As: A: PACING WIRE Gross Description: Received in formalin, labeled with the patient's name and hospital number, are multiple wires with a piece of adipose tissue attached measuring 3.0 x 1.6 x 1.0 cm. A photograph is taken. The attached soft tissue is submitted entirely in one cassette. EXB exb/02/12/2021 [facility] Department of Pathology [address] [place] [address] Normal [facility] Comment on above: Performed By: #### U HCS ####[facility] Surgical Pathology [address] [place], [place] [id number] CORONAVIRUS 2019, SCREEN ASY MPTOMATICon 02-10-2021 SARS-CoV-2 (COVID-19) RNA BECCA+probe Ql (Unsp spec) Not detected Normal Not Detected [facility] Comment on above: Result Comment: . This [...] patient management decisions. Fact sheet for providers: https://www.fda.gov/media/236830/download Fact sheet for patients: https://www.fda.gov/media/653084/download This test has received FDA Emergency Use Authorization (EUA) and has been verified by [facility] ([facility]). This test is only authorized for the duration of time that circumstances exist to justify the authorization of the emergency use of in vitro diagnostic tests for the detection of SARS-CoV-2 virus and/or diagnosis of COVID-19 infection under section 564(b)(1) of the Act, 21 U.S.C. 360bbb-3(b)(1), unless the authorization is terminated or revoked sooner. [facility] is certified under CLIA-88 as qualified to perform high complexity testing. Testing is performed in the [facility] laboratories located at [address] [place] [address]. Performed By: #### C OVSC #### [address] [place] [address] Covid 19 Resultson 1 SARS-CoV-2 (COVID-19) RNA [...] [facility] to see if any of [...] or Naproxen (Aleve) can also be used. Aeko-liu-usqxjuf cough and cold medicines can be used according to the instructions on the package. Some ftoq-igk-pdcmdwx medicines also contain acetaminophen. Make sure you [...] water are not available, use alcohol-based hand passenger vessel chef. Avoid touching your eyes, nose, and mouth [...] Normal [facility] CORONAVIRUS 2019, SCREEN ASY MPTOMATICon 02-09-2021 Lab Specimen Source Nasal, Nasopharyngeal Normal [facility] Comment on above: Performed By: #### C OVSC #### [facility] [address] [place] [address] Coronavirus 2019 RNA by PCR, Screening Asymptomticon 02-09-2021 Coronavirus 2019 RNA by PCR, Screening Asymptomtic Not detected Normal See Below PT-Kjqbnnn-Z [facility] Work Phone: Comment on above: SOURCE: [...] make patient management decisions.Fact sheet for providers: https://www.fda.gov/media/494222/downloadFact sheet for patients: https://www.fda.gov/media/196629/downloadThis test has received FDA Emergency Use Authorization (EUA) and has been verified by [facility] ([facility]). This test is only authorized for the duration of time that circumstances exist to justify the authorization of the emergency use of in vitro diagnostic tests for the detection of SARS-CoV-2 virus and/or diagnosis of COVID-19 infection under section 564(b)(1) of the Act, 21 U.S.C. 360bbb-3(b)(1), unless the authorization is terminated or revoked sooner. [facility] is certified under CLIA-88 as qualified to perform high complexity testing. Testing is performed in the [facility] laboratories located at [address] [place] [address]. BASIC METABOLIC PANELon 05-2 Anion gap [Moles/Vol] 13 mmol/L Normal 10 - 20 [facility] Comment on above: Performed By: #### B MP ####[id number] [place] [address] Calcium [Mass/Vol] 9.7 mg/dL Normal 8.6 - 10.6 [facility] Comment on above: Performed By: #### B MP ####[id number] [place] [address] Chloride [Moles/Vol] 108 mmol/L High 98 - 107 [facility] Comment on above: Performed By: #### B MP ####[id number] [place] [address] Creatinine [Mass/Vol] 1.04 mg/dL Normal 0.50 - 1.30 [facility] Comment on above: Performed By: #### B MP ####[id number] [place] [address] GFR- AM. >60 Normal >60 [facility] Comment on above: Result Comment: CALC ULATIONS OF ESTIMATED GFR ARE PERFORMED USING THE MDRD STUDY EQUATION FOR THE IDMS-TRACEABLE CREATININE METHODS. CLIN CHEM 2007;53:766-72 Performed By: #### B MP ####[id number] [place] [address] GFR-NON AM. >60 Normal >60 [facility] Comment on above: Performed By: #### B MP ####[id number] [place] [address] Glucose [Mass/Vol] 91 mg/dL Normal 74 - 99 [facility] Comment on above: Performed By: #### B MP ####[id number] [place] [address] HCO3 (Bld) [Moles/Vol] 29 mmol/L Normal 21 - 32 [facility] Comment on above: Performed By: #### B MP ####[id number] [place] [address] Potassium [Moles/Vol] 4.6 mmol/L Normal 3.5 - 5.3 [facility] Comment on above: Performed By: #### B MP ####[id number] [place] [address] Sodium [Moles/Vol] 145 mmol/L Normal 136 - 145 [facility] Comment on above: Performed By: #### B MP ####[id number] [place] [address] Urea nitrogen [Mass/Vol] 13 mg/dL Normal 6 - 23 [facility] Comment on above: Performed By: #### B MP ####[id number] [place] [address] CBCon 01-27-2021 Erythrocyte distribution width (RBC) [Ratio] 12.2 % Normal 11.5 - 14.5 [facility] Comment on above: Performed By: #### C BC ####[id number] [place] [address] Hematocrit (Bld) [Volume fraction] 46.7 % Normal 41.0 - 52.0 [facility] Comment on above: Performed By: #### C BC ####[id number] [place] [address] Hemoglobin (Bld) [Mass/Vol] 15.1 g/dL Normal 13.5 - 17.5 [facility] Comment on above: Performed By: #### C BC ####[id number] [place] [address] MCHC (RBC) [Mass/Vol] 32.3 g/dL Normal 32.0 - 36.0 [facility] Comment on above: Performed By: #### C BC ####[id number] [place] [address] MCV (RBC) [Entitic vol] 96 fL Normal 80 - 100 [facility] Comment on above: Performed By: #### C BC ####[id number] [place] [address] NUCLEATED RBC 0.0 /100 WBC Normal 0.0-0.0 [facility] [place] Comment on above: Performed By: #### C BC ####[id number] [place] [address] Platelets (Bld) [#/Vol] 209 10*3/uL Normal 150 - 450 [facility] Comment on above: Performed By: #### C BC ####[id number] [place] [address] RBC 4.85 x10E12/L Normal 4.50 - 5.90 [facility] Comment on above: Performed By: #### C BC ####[id number] [place] [address] WBC (Bld) [#/Vol] 7.2 10*3/uL Normal 4.4 - 11.3 [facility] Comment on above: Performed By: #### C BC ####[id number] [place] [address] Follow Up (General Surgery)o n 01-27-2021 Follow [...] EKG; Status:Hold For - Scheduling; Requested for:27Jan2021; Perform:[facility] [place] 1800; Due:27Apr2021;Ordered; For:Diaphragm dysfunction, [...] and had paced more or less multimedia assistant. He was turning the device off 1-2 [...] MG Oral Tablet Vitals Vital Signs Recorded: [id number] 11:12AM Kksnlidrvso34.1 F Heart Rate77 Ogsfkgyk057 Ujfcrlwzn58 Shjvek439 lb BMI Nntddzbihc53.64 kg/m2 BSA Calculated2.33 Tobacco Useb) No Physical [...] the r (more content not included)... Normal [facility] No Panel Informationon 01-27 [email or web address] 1:8080 [email or web address]?R [email or web address]?Sherita mxzMH=[id number]&Date=&Time=13%3a24%3a34%3a 00&TestType=ECG&Site=1&Out putType=PDF&Ext=PDF HL-Xoqclkx-[address] Work Phone: Normal sinus rhythm MG-Ramos rgery-[address] Work Phone: Normal EI-Eydfqmi-[address] Work Phone: [phone] CW-Nrklhuk-[address] Work Phone: [phone] KS-Vznwonb-[address] Work Phone: [phone] HL-Tucpvzd-[address] Work Phone: [phone] 1 SA-Pkmeszf-[address] Work Phone: [phone] 1 YJ-Ardgvca-O [address] Work Phone: 11 [phone] ME-Hltsumn-[address] Work Phone: [phone] WZ-Ngpwycy-[address] Work Phone: 26 1 QX-Uljyahx-J [address] Work Phone: 40 1 PW-Ovkdmrz-[address] Work Phone: [phone] 1 DT-Fpklyip-E [address] Work Phone: [phone] TA-Dcpmjyr-[address] Work Phone: [phone] YX-Iclcvkx-[address] Work Phone: [phone] VL-Sblipxp-[address] Work Phone: [phone] MX-Wtssend-[address] Work Phone: Radiologyon 01-27-2021 XR Chest 2 Views Normal MG-Surge ry-[address] Work Phone: TH CHEST 2 VIEW PA AND LATon 01-27-2021 TH CHEST 2 VIEW PA AND LAT Patient Name: RIGO JEFFERSON STUDY: TH CHEST 2 VIEW PA AND LAT; 01/27/2021 11:00 am INDICATION: chronic hypoventilation. COMPARISON: Chest radiograph 04/03/2019 ACCESSION NUMBER(S): [id number] ORDERING CLINICIAN: CHUCK CABALLERO FINDINGS: Inspiratory and [...] Normal [facility] Tobacco Screening.on 021 Tobacco use status CPHS b) No DT-Gnkqbwd-X [address] Work Phone: Tobacco Screening. b) No MG-Tino raysa-[address] Work Phone: Otheron 04-03-2019 XR Chest 2 views Interpreted by: ISAK04/03/19 14:06MRN: [id number] Name: RIGO JEFFERSON STUDY:CHEST 2 VIEW PA [...] Electronically signed by: ISAK 04/03/19 14:06 Normal FR-Ovuiwya-Z [address] Work Phone: Vital Signs Date Time Vital Sign Value Performing Clinician Facility 02-12-2021 14:10-0400 SaO2% (BldA) [Mass fraction] 95 % No Pcp Required [facility] 02-12-2021 14:00-0400 Body temperature 97.16 [degF] No Pcp Required [facility] 02-12-2021 14:00-0400 Diastolic blood pressure 83 mm[Hg] No Pcp Required [facility] 02-12-2021 14:00-0400 Heart rate 81 /min No Pcp Required [facility] 02-12-2021 14:00-0400 Respiratory rate 18 /min No Pcp Required [facility] 02-12-2021 14:00-0400 Systolic blood pressure 131 mm[Hg] No Pcp Required [facility] 02-12-2021 03:31-0400 Body height 182.8 cm No Pcp Required [facility] 02-12-2021 03:31-0400 Body weight 109.8 kg No Pcp Required [facility] 01-27-2021 11:12-0400 Body mass index (BMI) [Ratio] 33.64 kg/m2 Chuck Caballero MD Work Phone: TX-Warxrua[address] Work Phone: 01-27-2021 11:12-0400 Body surface area Derived from formula 2.33 m2 Chuck Caballero MD Work Phone: CT-Vxqnixn-[address] Work Phone: 01-27-2021 11:12-0400 Body temperature 96.1 [degF] Chuck Caballero MD Work Phone: AO-Isjopul-[address] Work Phone: 01-27-2021 11:12-0400 Body weight 112.49 kg Chuck Caballero MD Work Phone: TT-Yndlqhh-[address] Work Phone: 01-27-2021 11:12-0400 Diastolic blood pressure 85 mm[Hg] Chuck Caballero MD Work Phone: SO-Bwvzvzn-[address] Work Phone: 01-27-2021 11:12-0400 Heart rate 77 /min Chuck Caballero MD Work Phone: OA-Lftqfmf-Tftqg [address] Work Phone: 01-27-2021 11:12-0400 Systolic blood pressure 157 mm[Hg] Chuck Caballero MD Work Phone: WR-Bultgbd-[address] Work Phone: 04-03-2019 15:37-0400 BMI (Body Mass Index) 30.11 kg/m2 Chandan Jordan MG-Surgery -[place] 2099 Work Phone: 04-03-2019 15:37-0400 Body Temperature 97.9 [degF] Chandan Travon IB-Cccbzds-[address] Work Phone: 04-03-2019 15:37-0400 Body weight 100.7 kg Chandan Jordan SS-Qyxtdqi-Qktrt ll 2099 Work Phone: 04-03-2019 15:37-0400 BP Diastolic 74 mm[Hg] Chandan Travon PN-Rlwfvzk-Izogf ll 2099 Work Phone: 04-03-2019 15:37-0400 BP Systolic 121 mm[Hg] Chandan Travon QM-Csjzoqy-Stvab ll 2099 Work Phone: 04-03-2019 15:37-0400 BSA (Body Surface Area) 2.23 m2 Chandan Travon ZZ-Lpdesho-Ihhmxdv 2099 Work Phone: 04-03-2019 15:37-0400 Height 182.88 cm Chandan Jordan EY-Mqkqlzm-Amitg ll 2099 Work Phone: 04-03-2019 15:37-0400 Pulse (Heart Rate) 58 /min Chandan Cool RR-Lzadthz-[address] 2099 Work Phone: Encounters Encounter Date Encounter Type Care Provider Facility Start: 05-31-2024 End: 05-31-2024 Subsequent hospital visit by physician [facility] Work Phone: [facility] Radiology General Comment on above: Cervical vertebral f usion [M43.22] Start: 05-31-2024 End: 05-31-2024 Patient encounter procedure Juan Salazar MD Work Phone: [facility] [place] Comment on above: Cervical vertebral f usion (Primary Dx); Spinal stenosis of cervical region Start: 05-14-2024 End: 05-14-2024 ambulatory [facility] Start: 04-19-2024 End: 04-24-2024 Chart abstracting [...] related to original px No PCP None CC-Lyvabig[address] Work Phone: Start: 02-20-2021 Chart Update No PCP None MG-Surgery -[address] Work Phone: Start: 02-11-2021 End: 02-12-2021 Evaluation and management of inpatient Chuck Caballero [facility] Lks[address] 55 Rm 5511 01 Start: 01-27-2021 Chart Update Chuck Caballero MD Work Phone: KM-Ybabfhb-[address] Work Phone: Start: 04-03-2019 Patient encounter procedure Chandan Travon MI-Inlsvcv-U[address]cul[address] 2100 Work Phone: Start: 01-12-2018 Patient encounter procedure Chandan Jordan JF-Duwzepi-[address] Work Phone: Start: 11-28-2017 Patient encounter procedure Chandan Travon WP-Obyrlzd-[address] Work Phone: Start: 11-28-2017 Patient encounter procedure Chandan Jordan FF-Jltwbaj-[address] Work Phone: Procedures Date Procedure Procedure Detail Performing Clinician Start: 05-31-2024 Radex spine cervical 4 or 5 views Juan Salazar MD Work Phone: Start: 03-30-2019 Xray Chest 2 View PA + Lateral Chandan Travon Cholecystectomy Chandan Travon History of Gallbladd er Surgery Chandan Cool History of Knee Surgery Left Chandan Jordan History of Neck Surgery [place] Moore Travon Tonsillectomy Chandan Cool Plan of Treatment Date Care Activity Detail Author Start: 2034 RSV Vaccine (1 - 1-d ose 75+ series) RSV Vaccine (1 - 1-dose 75+ series) [facility] Start: 05-06-2024 Covid-19 Vaccine ( season) Covid-19 Vaccine ( season) [facility] Start: 05-06-2024 Influenza vaccination Influenza Vacc ine (#1) [facility] Start: 2024 Advance Directive Discussion Advance Directive Discussion [facility] Start: 2024 Pneumococcal Vaccine : 65+ (1 of 1 - PCV) Pneumococcal Vaccine: 65+ (1 of 1 - PCV) [facility] Start: 02-13-2024 Diabetes Screening Diabetes Screenin g [facility] Start: 02-11-2021 End: 02-12-2022 Ondansetron Injectable 4 mg IntraVenous Push Every 6 Hours PRN ; (ZOFRAN)DOSE = 4 mg IntraVenous Push Every 4 Hours, PRN Nausea & Vomiting Start: 11-Feb-2021 End: 11-Feb-2022 Ordered: 11-Feb-2021 Saw Yo Intent [facility] Start: 2014 Prostate specific antigen measurement Prostate Cancer Screening Discussion [facility] Start: 2009 Shingrix Vaccine (1 of 2) Shingrix Vaccine (1 of 2) [facility] Start: 2004 Screening for malign ant neoplasm of colon [facility] Start: 1994 Lipid panel Lipid Screening [facility] Start: 1978 Urine microalbumin profile DTaP,Tdap,Td Vaccine (1 - Tdap) [facility] Start: 1977 Anxiety Screening Anxiety Screening [facility] Start: 1977 Depression Screening Depression Scre ening [facility] Start: 1977 Hepatitis C screening Hepatitis C Sc jasmine [facility] Start: 1977 HIV screening HIV Screening [facility] End: 06-30-2025 MR Cervical spine WO contrast MRI CERVICAL SPINE WO IVCON Radiology Routine Spinal stenosis of cervical region 1 Occurrences starting 05/31/2024 until 06/30/2025 [facility] Comment on above: 1 Occurrences starti ng 05/31/2024 until 06/30/2025 End: 06-30-2025 XR CERV OTHER 4V AP/LAT/FLX/EXT XR CERV OTHER 4V AP/LAT/FLX/EXT Radiology Routine Cervical vertebral fusion 1 Occurrences starting 05/31/2024 until 06/30/2025 [facility] Work Phone: Comment on above: 1 Occurrences starti ng 05/31/2024 until 06/30/2025 XR CERV OTHER 4V AP/LAT/FLX/EXT XR CERV OTHER 4V AP/LAT/FLX/EXT Radiology Routine Cervical vertebral fusion 05/31/2024 2:54 PM EDT [facility] End: 05-24-2025 XR Lumbar spine Views W flexion and W extension XR LUMBAR MOTION 4V AP/LAT/ FLEX/EXT Radiology Routine Spinal stenosis of lumbar region with neurogenic claudication 1 Occurrences starting 04/24/2024 until 05/24/2025 [facility] Work Phone: Comment on above: 1 Occurrences starti ng 04/24/2024 until 05/24/2025 Payers Date Payer Category Payer Medicare DEVOTED MEDICARE [facility] [id number] 2022-Present [phone] [address] [place] [address] O [id number] 2020 Unknown [id number] 2018 Unknown 1959 Medicare [id number] 1959 Unknown [id number] 1959 Unknown [id number] [id number]3 1959 Unknown [id number] 2.16.840.1.795764.3.579.2.593 1959 Unknown [id number] 2.16.840.1.344806.3.579.2.593 1959 Unknown [id number] 2.16.840.1.685604.3.579.2.593 1959 Unknown [id number] 2.16.840.1.978275.3.579.2.593 1959 Unknown [id number] 2.16.840.1.287795.3.579.2.593 1959 Unknown [id number] 2.16.840.1.384409.3.579.2.593 1959 Unknown [id number] 2.16.840.1.102606.3.579.2.593 1959 Unknown [id number] 2.16.840.1.380492.3.579.2.593 1959 Unknown [id number] 2.16.840.1.044851.3.579.2.1259 1959 Unknown [id number] 2.16.840.1.349042.3.579.2.1259 1959 Unknown [id number] 2.16.840.1.777244.3.579.2.1259 1959 Unknown [id number] 2.16.840.1.368178.3.579.2.1259 1959 Unknown [id number] 2.16.840.1.684427.3.579.2.1259 1959 Unknown [id number] 2.16.840.1.398594.3.579.2.1259 Social History Date Type Detail Facility Start: 05-31-2024 Former smoker Former smoker [place] [id number] Work Phone: Tobacco smoking consumption unknown [facility] Start: 1960 Sex assigned at Not on file [facility] Start: 05-31-2024 Gender identity Not on file [facility] National Score (1-100), lower number is lower risk 74 [facility] NEGATED: Highlighted row - - [address] Work Phone: Functional Status Date Assessment Result Facility Functional observable [facility] NEGATED: Highlighted row Functional performance Functional status health issues are not documented Disease [address] Work Phone: Mental Status Date Assessment Result Facility 02-12-2021 Cognitive functi ons [id number] [facility] NEGATED: Highlighted row Cognitive function [Interpretation] Cognitive status health issues are not documented Disease [address] Work Phone: Clinical Notes 02-11-2021 to 05-31-2024 Beulah Zavala RT(R) - 05/31/2024 2:40 PM Juan Chung MD - 05/31/2024 1:42 PM Michelle Arevalo APRN.LEATHER CURRIER - 04/24/2024 4:50 PM EDTAustyn Mercer P - 04/19/2024 1:49 PM EDT Note Date & Type Note Facility 05-31-2024 History of Present illness Narrative Radiology Service Progress Note PATIENT NAME: Rigo Jefferson DATE OF SERVICE: May 31, 2024 TIME: 2:55 PM PATIENT IDENTITY VERIFICATION COMPLETED USING TWO (2) IDENTIFIERS: Name and Date of confirmed by patient verbally and Name and Date of confirmed by identification band. FALL SCREENING: Has the patient had 2 falls in the last year or 1 fall with injury or currently using an Ambulatory Assistive Device (Walker, Cane, Wheelchair, Crutches, etc.)? No PATIENT GENDER DATA: Male PATIENT RELEVANT IMPLANT DATA REVIEWED: Not Applicable PATIENT PRESENTS WITH AN IMPLANTABLE OR ATTACHED REMOTE SENSING ENGINEER: No RADIOLOGY DEPARTMENT: General X-ray: Exam(s) Completed: Spine X-Ray(s): Cervical AP / LAT / FLEX-EXT and Lumbar AP / LAT / L5-S1 / FLEX-EXT PERIPHERAL IV DATA: Not applicable SIGNED BY: RT Lory(R) May 31, 2024 2:55 PM documented in this encounter [facility] 05-31-2024 History of Present illness Narrative SPINE SURGERY NEW PATIENT This is an in-person visit. PCP: No primary care provider on file. 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 Mr. Jefferson is a pleasant 59-year-old gentleman is here in spine surgery clinic with a history of lower back and leg pain. Back pain started more than 25 years ago without any history of injury or fall. Recently noticed radiating pain more in left lower extremity. Leg pain radiates up to the ankle. Pain is constant, even present with the sitting especially more over left glued, upper part of the thigh. He feels subjective weakness in lower extremity, heaviness of the legs after walking for half a mile. Pain minimally better with sitting. He also noticed left lateral thigh numbness up to the knee. Numbness is constant, aggravated by activity. Minimally better with the sitting. He also has minimal nighttime pain. Denies bowel or bladder dysfunction. Denies right leg pain. He was following with out pain management doctor. He received multiple epidural injections with minimal pain relief. Full details of epidural injection is not known. Last epidural injection done 1 month ago. Also tried gabapentin and Lyrica in the past without much improvement of his pain. Currently taking meloxicam, diazepam 10 mg, Percocet. He is on narcotics for more than 2 years. Underwent left lung surgery in the past with shortness of breath. Pulmonology is recommending 2 L of home oxygen. Currently not using nasal oxygen. Underwent cervical discectomy and fusion in 2001. He is also complaining of mild decrease sensation over left hemibody. PRECIPITATING EVENT: None DURATION OF SYMPTOMS: Greater Than 1 Year PAIN EVALUATION 05/31/2024 1349 Pain Level: 4 Pain Location: Back-Lower Description: Aching;Stabbing Duration Units: Years Frequency: Continuous Intervention/Comfort measure: Medication;Heat;Cold Pain Radiation: Lower back pain radiating to left lower extremity up to ankle Aggravating Factors: Standing, Walking, Walking upstairs, Walking downstairs Alleviating Factors: Medications, Sitting Pain Ratio: Pain in the leg(s) is greater than in the back DERMATOMAL DISTRIBUTION: Not applicable AMBULATORY STATUS: Impaired Community Distances ANTIPLATELET OR ANTICOAGULATION STATUS: No PREVIOUS CONSERVATIVE TREATMENTS: Gabapentin Lyrica Meloxicam Multiple epidural injections in an outside facility. Full details is not available. Epidural injection did not offered good pain relief. PREVIOUS SPINAL SURGERY: SURGERY #1: C5-6 anterior cervical discectomy and fusion in 2001 There is no problem list on file for this patient. No past medical history on file. No past surgical history on file. No family history on file. ALLERGIES Not on File MEDICATIONS: No prescriptions on file. REVIEW OF SYSTEMS: PAIN ASSESSMENT: See HPI. GENERAL: Denies fever, chills malaise and weight loss. HEENT: No recent change in vision or hearing. CARDIOVASCULAR: Denies chest pain, history of A-fib, valvular disease, or pacemaker/ICD. RESPIRATORY: Denies SOB, sputum production, and hemoptysis. GI: Denies GI ulcers, inflammatory disease, or liver disease. : Denies change in frequency or urgency, kidney disease, and burning with urination. MUSCULOSKELETAL: Negative for joint pain or swelling, back pain or muscle pain. SKIN: Denies rash or itching. PSYCHOLOGICAL: Denies uncontrolled depression or anxiety. NEURO: Denies CVA, seizures, headaches. ENDOCRINE: Denies diabetes, thyroid disease. HEMATOLOGY/LYMPHOLOGY: Denies cancer, bleeding or clotting disorders, anemia,and DVT's. ALLERGIC/IMMUNOLOGICAL: Denies risks for infection, or recent MRSA infections. Patient Entered Questionnaires PROMIS Score Percentiles Percentiles provide an indication of how the patient's score ranks in relation to the general population. Higher percentile rankings indicate better function/quality of life. 50th percentile is the average of the general population and indicates half of respondents had a worse score. Depression Screening: PHQ-9 Self-Harm (Item 9) response options: 0 Not at all 1 Several days 2 More than half the days 3 Nearly every day PHQ-9 Levels: 0-4 No to mild depression 5-9 Mild depression 10-14 Moderate depression 15-19 Moderately severe depression 20-27 Severe depression OBJECTIVE: PHYSICAL EXAM There were no vitals taken for this visit. GENERAL APPEARANCE: Well nourished, well developed, and no apparent distress. NEURO PSYCH: Patient oriented to person, place, and time. Mood pleasant. Benign affect. CARDIOVASCULAR: Palpable pulses. No edema noted. No varicosities. SKIN: Head, neck, trunk, and extremities dry, intact and without lesions. LYMPHATICS: No palpable nodes in cervical or axillae areas. Groin exam deferred. MUSCULOSKELETAL VISUAL INSPECTION CERVICAL: Anterior cervical scar is healthy THORACIC: WNL LUMBAR: WNL PALPATION: SPINOUS PROCESS: No pain. PARASPINALS: No pain. MUSCLE BULK: Normal and symmetrical in the upper & lower extremities. MUSCLE TONE: Normal. MOTOR: 5/5 in all muscle groups. Except mild bilateral hand senior engineering manager weakness. SENSORY: Creased sensation for light touch below C5 level on the left side GAIT: Antalgic. REFLEXES: +2 to bilateral U/L extremities. PROPRIOCEPTION: Not tested. LONG TRACT SIGNS: No clonus. No Hoffmans. STRAIGHT LEG TEST: Ipsilateral: Negative. Contralateral: Negative. L'HERMITTES SIGN: Not tested. SPURLING'S TEST: Not tested. NEURO TESTS: Cranial Nerves: Normal mood and affect. CNII-XII grossly intact. DATA REVIEW [facility] records independently reviewed Images independently reviewed with the patient EXAMINATION: MR lumbar spine wo con HISTORY: Lumbar Radiculopathy, Lumbar Stenosis COMPARISON: No relevant comparison available. TECHNIQUE: A variety of imaging planes and parameters were utilized for visualization of suspected pathology. FINDINGS: For the purposes of numbering, sagittal T2 image # 9 extends from the T11 vertebral body superiorly to the S2-S3 level inferiorly. PARASPINAL AREA: Normal with no visible mass. BONES: Normal alignment of the lumbar vertebral bodies with no acute fracture or spondylolisthesis. Signal abnormality likely in place likely representing Modic 2 change. Bulky anterior degenerative spondylosis, severe CORD/CAUDA EQUINA: Normal caliber, contour, and signal intensity. DISC LEVELS: 12-L1: Disc space narrowing and desiccation. No disc bulge or herniation. No central or foraminal stenosis L1-L2: Disc space narrowing and desiccation. No disc bulge or herniation. No central or foraminal stenosis L2-L3: Disc space narrowing and desiccation. No disc bulge or herniation. No central or foraminal stenosis L3-L4: Disc space narrowing. Broad-based posterior moderate disc/osteophyte complex. Moderate to severe ligamentum flavum hypertrophy and facet osteoarthropathy. Moderate central canal stenosis axial image #20. Moderate right and no left foraminal stenosis L4-L5: Disc desiccation. Mild diffuse disc bulge. Severe ligamentum flavum hypertrophy. Moderate bilateral facet osteoarthropathy. Moderate to severe central canal stenosis. Mild right and moderate to severe left foraminal stenosis L5-S1: Mild disc desiccation. Ligamentum flavum hypertrophy and facet osteoarthropathy. Mild bilateral foraminal stenosis MR/MR lumbar spine wo con IMPRESSION: Degenerative changes resulting in moderate to severe central canal stenosis L3-L4 and L4-L5 Foraminal stenosis at L3-S1 detailed above ASSESSMENT/PLAN Mr. Jefferson is a pleasant 59-year-old gentleman is here in spine surgery clinic with a history of lower back and leg pain. Back pain started more than 25 years ago without any history of injury or fall. Recently noticed radiating pain more in left lower extremity. Leg pain radiates up to the ankle. Pain is constant, even present with the sitting especially more over left glued, upper part of the thigh. He feels subjective weakness in lower extremity, heaviness of the legs after walking for half a mile. Pain minimally better with sitting. He also noticed left lateral thigh numbness up to the knee. Numbness is constant, aggravated by activity. Minimally better with the sitting. He also has minimal nighttime pain. Denies bowel or bladder dysfunction. Denies right leg pain. He was following with out pain management doctor. He received multiple epidural injections with minimal pain relief. Full details of epidural injection is not known. Last epidural injection done 1 month ago. Also tried gabapentin and Lyrica in the past without much improvement of his pain. Currently taking meloxicam, diazepam 10 mg, Percocet. He is on narcotics for more than 2 years. Underwent left lung surgery in the past with shortness of breath. Pulmonology is recommending 2 L of home oxygen. Currently not using nasal oxygen. Underwent cervical discectomy and fusion in 2001. He is also complaining of mild decrease sensation over left hemibody. Neurological examination showed antalgic gait. No motor deficit except mild handgrip weakness bilateral, left side more than right side. Anterior cervical scar is healthy. Decreased sensation below C5 level on the left side. X-ray cervical spine showed severe degenerative changes with a large anterior osteophyte at C4-5 level. MRI lumbar spine showed degenerative changes at multiple levels. Moderate lumbar canal stenosis at L3-4 level, severe lumbar canal stenosis L4-5 level with bilateral foraminal stenosis. Discussed clinical, imaging finding. Showed images and explained detail. Discussed treatment option for lumbar canal stenosis with neurogenic claudication which includes continue conservative treatment of back exercise, physical therapy, pain medication, epidural injection, surgical intervention. Considering failed conservative treatment, sedately activities limited due to pain, I think surgery is also a good option. Discussed in detail about L3, L4 lumbar laminectomy, decompression of L3-4, L4-5 lumbar canal stenosis with foraminotomy surgical procedure, its advantages and risks. All his questions were answered. Considering severe cervical spondylosis at the adjacent segment of C4-5 level with decrease sensation over the left hemibody below C5 level, I ordered MRI cervical spine to rule out cord compression at C4-5 level prior to considering lumbar surgery. If MRI cervical spine shows cord compression at C4-5 level, he may require surgical intervention for cervical spine prior to lumbar spine. MRI cervical spine ordered. We will update MRI cervical spine results once it is completed. We will schedule him for surgical intervention after reviewing MRI cervical spine. The majority of the visit was spent counseling and/or coordinating care for the patient. The patient was counseled regarding neck pain, hand senior engineering manager weakness, decreased sensation over left hemibody, lower back pain, left leg pain, walking difficulty, left leg numbness, lumbar spondylosis, lumbar canal stenosis, lumbar laminectomy with foraminotomy, adjacent segment cervical stenosis, MRI cervical spine. Total face to face time was 45 minutes. SIGNATURE: Juan Salazar MD PATIENT NAME: Rigo Jefferson DATE: May 31, 2024 TIME: 1:44 PM PAGER: documented in this encounter [facility] 05-14-2024 Note [facility] Cardiology Clinic Note Reason for cardiology [...] history of COPD (chronic obstructive pulmonary disease) ([facility]), Hyperlipidemia, Hypertension, Pulmonary emphysema (CMS/HCC), and Sleep apnea. Surgical History He has [...] hemoglobin 16, hematocrit (more content not included)... [facility] 04-24-2024 Note HNO ID: [id number] Author: MICHELLE FLORENTINO APRN.CNP Service: ? Author Type: Nurse Practitioner Type: Progress Notes Filed: 04/24/2024 16:54 Note Text: Per Triage: Rigo Jefferson is a 64 year old male. that presents with symptoms of low back pain that radiates down the left leg. Previous spine surgery: Yes in [address] Sales. BMI: NA Out of state: No A1C: NA CMT: Injections Toll Mechanic Mobic Oxycodone Studies (Reports unless indicated) MRI Lumbar 04/03/2024 -Severe central canal stenosis at L3-L4 and L4-L5 Disposition: Please schedule with first available lumbar spine surgeon with pre-visit x-ray. [facility] 04-24-2024 History of Present illness Narrative Per Triage: Rigo Jefferson is a 64 year old male. that presents with symptoms of low back pain that radiates down the left leg. Previous spine surgery: Yes in [address] Sales. BMI: NA Out of state: No A1C: NA CMT: Injections Toll Mechanic Mobic Oxycodone Studies (Reports unless indicated) MRI Lumbar 04/03/2024 -Severe central canal stenosis at L3-L4 and L4-L5 Disposition: Please schedule with first available lumbar spine surgeon with pre-visit x-ray. Patient name: Rigo Jefferson Are you being referred by a Center for Spine Health Provider or Pain Management Provider at [facility]? No If answer is YES please schedule [...] facility where the MRI/CT/myelogram was completed: [facility] Address: [address] [place] [address] MRI/CT/myelogram viewable in Epic: No If not, please provide [phone] to fax in imaging reports for review. [...] and/or physical therapy was completed Injections [facility] Address: [address] [place] [address] Have you tried any other kinds of [...] recall Additional Comments documented in this encounter [facility] 04-19-2024 Note HNO ID: [id number] Author: ?, ?, ? Service: ? Author Type: ? Type: Progress Notes Filed: 04/24/2024 16:54 Note Text: Patient name: Rigo Jefferson Are you being referred by a Center for Spine Health Provider or Pain Management Provider at [facility]? No If answer is YES please schedule [...] facility where the MRI/CT/myelogram was completed: [facility] Address: [address] [place] [id number] MRI/CT/myelogram viewable in Epic: No If not, please provide [phone] to fax in imaging reports for review. [...] and/or physical therapy was completed Injections [facility] Address: [address] [place] [address] Have you tried any other kinds of [...] of where the surgery was completed: 2001 [facility] or Cannot recall Additional Comments [facility] 12-09-2022 Note CONSULTATION PROCEDURE DATE: 12/09/2022 [...] our patients to inform us about any [id number] medications or herbal remedies/nutritional supplements/alternative remedies. 2. [...] their primary care provider. [facility] 11-25-2022 Note CONSULTATION CONSULTATION DATE: 11/25/2022 TO: [...] shoulders, bilaterally, without contrast. [facility] 09-03-2022 Note CONSULTATION CONSULTATION DATE: 09/03/2022 HISTORY [...] time, unless otherwise indicated. [facility] 06-01-2022 Note CONSULTATION CONSULTATION DATE: 06/01/2022 CHIEF [...] b.i.d. basis. The patient also uses the VicAffectv heat rub to his cervical spine. The [...] three months. CC: Shaikh Helena M.D. [facility] 05-18-2022 Note CONSULTATION CONSULTATION DATE: 05/18/2022 HISTORY [...] to proceed. CC: Shaikh Helena M.D. [facility] 05-18-2022 Note CONSULTATION PROCEDURE DATE: 05/18/2022 PREOPERATIVE [...] up in the office. [facility] 04-29-2022 Note CONSULTATION CONSULTATION DATE: 04/29/2022 HISTORY [...] injections with Dr. Duncan. [facility] 01-27-2022 Note CONSULTATION CONSULTATION DATE: 01/27/2022 HISTORY [...] in three month's time, unless otherwise indicated. [facility] Signed and Approved by: RAVINDER ANDERSEN . 02/04/2022 16:12:00 [facility] 02-12-2021 Note Send Summary: Discharge Summary Providers: Provider RoleProvider Name ReferringChuck Caballero PrimaryRequired, No Pcp AttendingOndersChuck Note Recipients: Chuck [...] at Discharge: .Home Vital Signs: T PRBPSpO2 [id number]/8395% Date/Time02/12 12: 12: 12: 12: 12:10 Range(35.4C - 36.4C ) (77 - 99 ) (17 - 18 ) (127 - 147 )/ (83 - 91 ) (92% - 96% ) As of 12-Feb-2021 12:10:00, patient is on 2 L/min of oxygen Date: Weight/Scale Type:Height: 12-Feb-2021 01:71871.8 kg / wckbcaoa330.8 cm Hospital Course: 60 yo male with [...] Call to Schedule in: 2 weeks Location: [address] [place] [address] Discharge Medications: Home Medication clarithromycin 250 mg [...] Caballero) [facility] 02-11-2021 Note Post Operative Note: PreOp Diagnosis: diaphragm paralysis Post-Procedure Diagnosis: same Procedure: 1. laparoscopic L diaphragm plication 2. removal of bilateral diaphragm pacing wires 3. L pigtail chest tube placement Surgeon: Dr Chuck Caballero Resident/Fellow/Other Assistant Public Defender: Dr Saw Yo Anesthesia: GETA Estimated Blood [...] Caballero) [facility] 02-11-2021 Note History & Physical R eviewed: [...] Caballero) [facility] Chief complaint Narrative - Reported An interactive audio and video telecommunication system which permits real time communications between the patient (at the originating site) and provider (at the distant site) was utilized to provide this telehealth service.Post op [address] Work Phone: Evaluation note Constitutional: Well developed, awake/alert/oriented x3, no distress, alert and cooperativeSkin: warm and dryEyes: PERRL, EOMI, clear scleraENMT: MMMHead/Neck: NCATRespiratory/Thorax: good chest expansion, thorax symmetricCardiovascular: RRRGastrointestinal: Nondistended, soft, non-tender, no rebound tenderness or guardingMusculoskeletal: moves all extremitiesExtremities: well perfusedNeurological: grossly intactPsychological: Appropriate mood and behavior [facility] Evaluation note Diagnosis Spinal stenosis of lumbar region with neurogenic claudication- Primary Spinal stenosis, lumbar region, with neurogenic claudication [facility] Diagnosis Cervical vertebral fusion- Primary Other unspecified back disorder Spinal stenosis of cervical region Spinal stenosis in cervical region [facility] Cervical vertebral fusion Other unspecified back disorder [facility] of [facility]* He is status [...] not he wants to follow-up with a gas plant dispatcher in our system. [address] Work Phone: Hospital Discharge instructions* [...] follow-up / diaphragm pacer removal, hemidiaphragm plicationLocation: [address] [address]Phone Number: [phone] * Gold Form - Other Clinicians:Other Clinician [...] [facility]. [facility] (n[facility]ative)* Diagnostic Procedure Only (Routine) - New Request Specialty Diagnoses / Procedures Referred By Contac t Referred To Contact XR IMAGING Diagnoses Spinal stenosis of lumbar region with neurogenic claudication Procedures XR LUMBAR MOTION 4V AP/LAT/ FLEX/EXT RADEX SPINE LUMBOSACRAL MINIMUM 4 VIEWS Michelle Florentino, TAB.LEATHER CURRIER [address] [place] [address] [place] [id number] Referral ID Status Reason Start Date Expiration Date Visits Requested Visits Authorized [id number] New Request Auto-Generat ed Referral 04/24/2024 05/24/2025 1 1 [facility] for referral (narrative)* Diagnostic Procedure Only (Routine) - Closed Specialty Diagnoses / Procedures Referred By Contac t Referred To Contact XR IMAGING Diagnoses Cervical vertebral fusion Procedures XR CERV OTHER 4V AP/LAT/FLX/EXT RADEX SPINE CERVICAL 4 [place] [address] [place] [address] [place] [id number] Referral ID Status Reason Start Date Expiration Date V isits Requested Visits Authorized [id number] Closed Auto-Generate d Referral 05/31/2024 06/30/2025 1 1 [facility] Family History Mother Name Dates Details No pertinent family [...] Directives Records FoundNo Advanced Directives Records Found Reason for Referral Specialty Diagnoses / Procedures Referred By Contac t Referred To Contact MR IMAGING Diagnoses Spinal stenosis of cervical region Procedures MRI CERVICAL SPINE WO IVCON MRI SPINAL CANAL CERVICAL W/[place] [address] [place] [id number] [facility] [place] [address] Referral ID Status Reason Start Date Expiration Date Visits Requested Visits Authorized [id number] New Request Auto-Generat ed Referral 05/31/2024 06/30/2025 1 1 Specialty Diagnoses / Procedures Referred By Contac t Referred To Contact XR IMAGING Diagnoses Cervical vertebral fusion Procedures XR CERV OTHER 4V AP/LAT/FLX/EXT RADEX SPINE CERVICAL 4 [place] [address] [place] [id number] [facility] [place] [address] Referral ID Status Reason Start Date Expiration Date V isits Requested Visits Authorized [id number] Closed Auto-Generate d Referral 05/31/2024 06/30/2025 1 1 Additional Source Comments <item> Privacy Markings (unrecogniz [...] section and content) DATE CREATED AUTHOR 04/04/2021 [employer] DATE CREATED AUTHOR AUTHOR'S ORGANIZ ATION 04/08/2021 [facility] DATE CREATED AUTHOR AUTHOR'S ORGANIZ ATION 12/31/2022 [facility] DATE CREATED AUTHOR AUTHOR'S ORGANIZ ATION 01/31/2024 [facility] EPIC DATE CREATED AUTHOR AUTHOR'S ORGANIZ ATION 04/26/2024 [facility] DATE CREATED AUTHOR AUTHOR'S ORGANIZ ATION 05/17/2024 [facility] Source Comments (unrecognize d section and content) In the event this informatio n is protected by the Federal Confidentiality of Alcohol and Drug Abuse Patient Records regulations: The Federal rules restrict any use of the information to criminally investigate or prosecute any alcohol or drug abuse patient.[facility] the event this information is protected by the Federal Confidentiality of Alcohol and Drug Abuse Patient Records regulations: The Federal rules restrict any use of the information to criminally investigate or prosecute any alcohol or drug abuse patient.[facility] the event this information is protected by the Federal Confidentiality of Alcohol and Drug Abuse Patient Records regulations: The Federal rules restrict any use of the information to criminally investigate or prosecute any alcohol or drug abuse patient.[facility] Care Teams (unrecognized sec tion and content) Resource Development Director Relationship Specialty Start Date End Date Tonny Hernandez MD [address] [place] [address] Referring Pain Management 04/16/24 Resource Development Director Relationship Specialty Start Date End Date Tonny Hernandez MD [address] [place] [address] Referring Pain Management 04/16/24 Resource Development Director Relationship Specialty Start Date End Date Tonny Hernandez MD [address] [place] [address] Referring Pain Management 04/16/24 Reason for Visit (unrecogniz ed section and content) Reason Comments New Patient Reason Comments Radio [employer] RMP Specialty Diagnoses / Procedures Referred By Contac t Referred To Contact XR IMAGING Diagnoses Cervical vertebral fusion Procedures XR CERV OTHER 4V AP/LAT/FLX/EXT RADEX SPINE CERVICAL 4 [place] [address] [place] [address] [place] [id number] Referral ID Status Reason Start Date Expiration Date V isits Requested Visits Authorized [id number] Closed Auto-Generate d Referral 05/31/2024 06/30/2025 1 1 FOR RECORDS PERTAINING TO PATIENTS WHO ARE [...] BE BASED ON THE PRIMARY CLINICAL RECORDS. [employer] [facility]. provides no warranty or guarantee of the accuracy or completeness of information in this document.
--- NOTE | 2024-06-06 08:38 | PM.CN ---
Consult Note: HPI Data of Consult Patient: known to practice within the last 3 years Requesting Physician: Sho Galdamez NP Primary Care Provider: Shaikh Helena MD Consult Narrative Reason for consult: f/u Narrative: Ryan Pete a pleasant 63 year old male presents for evaluation of chronic pain. Today pain 6/10 in low back, ache worse with activity. increases to 8/10 at its worst. Pain increased with twisting, pushing, pulling, standing, lifting, activity. Pain improved mildly with TENS, mobic 15mg daily, lidocaine patches, baclofen, and percocet 5-325mg QID PRN. Patient denies side effects. denies loss of bowel or bladder. is following with NS ofr consideration of lumbar surgery. recently underwent left knee injection with 50% improvement in pain and functional ability. cc:: CC: Sho Galdamez NP Review of Systems ROS Status of ROS 10 or more systems reviewed and unremarkable except as noted in history and below Musculoskeletal Reports: back pain, neck pain and joint pain PFSH PFSH Medical History (Updated 06/06/24 @ 08:40 by Sho Galdamez NP) COPD (chronic obstructive pulmonary disease) ?J44.9 - Chronic obstructive pulmonary disease, unspecified (ICD-10) Rheumatoid arthritis ?M06.9 - Rheumatoid arthritis, unspecified (ICD-10) Upper back pain ?M54.9 - Dorsalgia, unspecified (ICD-10) Low back pain ?M54.50 - Low back pain, unspecified (ICD-10) Uses continuous positive airway pressure (CPAP) ventilation at home ?Z99.89 - Dependence on other enabling machines and devices (ICD-10) Emphysema lung ?J43.9 - Emphysema, unspecified (ICD-10) Hypertension ?I10 - Essential (primary) hypertension (ICD-10) Surgical History Hx of cholecystectomy ?Z90.49 - Acquired absence of other specified parts of digestive tract (ICD-10) H/O cardiac catheterization ?Z98.890 - Other specified postprocedural states (ICD-10) H/O heart bypass surgery ?Z95.1 - Presence of aortocoronary bypass graft (ICD-10) History of lung surgery ?Z98.890 - Other specified postprocedural states (ICD-10) History of tonsillectomy ?Z90.89 - Acquired absence of other organs (ICD-10) H/O cervical spine surgery ?Z98.890 - Other specified postprocedural states (ICD-10) H/O carpal tunnel repair ?Z98.890 - Other specified postprocedural states (ICD-10) H/O arthroscopy of knee ?Z98.890 - Other specified postprocedural states (ICD-10) Meds Home Medications and Allergies Home Medications ?Medication ?Instructions ?Recorded ?Confirmed ?Type atorvastatin 40 mg tablet (Lipitor) 40 mg PO DAILY 02/17/23 05/22/24 History baclofen 10 mg tablet 10 mg PO BID 02/17/23 05/22/24 History lidocaine 5 % topical patch 1 patch topical DAILY 02/17/23 05/22/24 History (Lidoderm) testosterone enanthate 50 mg/0.5 50 mg subcut QWEEK 12/13/23 05/22/24 History mL subcutaneous auto-injector (Xyosted) ibuprofen 200 mg tablet 800 mg PO TID PRN pain 12/20/23 05/22/24 History oxycodone-acetaminophen 5 mg-325 1 tab PO QID PRN pain #120 tabs 03/19/24 05/22/24 Rx mg tablet (Percocet) cetirizine 10 mg tablet (Zyrtec) 10 mg PO BID PRN allergy symptoms 03/28/24 05/22/24 History montelukast 10 mg tablet 10 mg PO DAILY 03/28/24 05/22/24 History (Singulair) oxycodone-acetaminophen 5 mg-325 1 tab PO QID PRN pain #120 tabs 04/12/24 05/22/24 Rx mg tablet (Percocet) meloxicam 7.5 mg tablet 7.5 mg PO BID 05/09/24 05/22/24 History oxycodone-acetaminophen 5 mg-325 1 tab PO QID PRN pain #120 tabs 05/09/24 05/22/24 Rx mg tablet (Percocet) Allergies Allergy/AdvReac Type Severity Reaction Status Date / Time No Known Drug Allergies Allergy Verified 05/22/24 07:35 Exam Constitutional Documenting provider has reviewed patient's vital signs: yes Common normals: no apparent distress, oriented x3, healthy appearing, alert and well nourished General appearance: cooperative HENMT Common normals: normocephalic, hearing grossly normal bilaterally and moist oral mucous membranes Head and scalp: normocephalic Eye Common normals: PERRL Pupil: PERRL Neck & C-Spine Common normals: full ROM General: normal visual inspection Cervical spine: pain with cervical ROM; no cervical spine tenderness Chest Common normals: inspection of chest normal Respiratory Common normals: normal respiratory effort, no retractions and no use of accessory muscles Back & Pelvis Lumbar spine/lower back: ROM limited, pain with ROM and straight leg raise negative bilaterally Sacroiliac joints: SI joints normal Other: sensation intact BLE strength 5/5 in BLE positive facet loading L3-S1 Extremity Common normals: normal to inspection Right lower extremity: hip joint and knee joint Left lower extremity: hip joint Other: left hip: no pain with internal and external rotation right hip: mild to moderate pain with internal and external rotation left knee enlarged diameter, mild edema, pain with medial and lateral stress testing, crepitus noted on exam Neuro Common normals: oriented x3, CN's II-XII intact bilaterally, moves all extremities, no focal motor deficits, no sensory deficits noted and deep tendon reflexes 2+ bilaterally Sensorium/orientation: alert Gait (neuro): antalgic Motor exam: strength 5/5 throughout and no movement abnormalities noted Psych Common normals: mental status grossly normal, thought process normal, cooperative, affect normal, speech normal and activity/motor behavior normal Speech: normal speech Thought process: normal thought process Results Additional Findings Additional findings: If on a controlled substance or opioids, I have checked an OARRS report on this patient and there are no aberrancies noted in the prescribing history.??If on a controlled substance or opioid a drug screen was completed and reviewed within the last year, and if there has not been a drug screen completed we ordered one today to monitor higher risk, state monitored pain medication use. As part of providing excellent, safe, comprehensive care, the following was completed at our patient's visit: 1. A medication reconciliation and review to ensure accurate knowledge of current/active medications, including asking our patients to inform us about any [id number] medications or herbal remedies/nutritional supplements/alternative remedies. 2. A review to specifically ensure our patients have had annual screening for screening for depression, screening for tobacco use, and screening for unhealthy alcohol use. For concerning screenings had a discussion with the patient, provided patient education, and recommended follow-up with primary care provider when appropriate. If patient noted with a risk of falling, they received education on strength, gait, and balance training to prevent future risk of falling. Assessment and Plan Assessment and Plan (1) Osteoarthritis of left knee: (2) Lumbar stenosis with neurogenic claudication: (3) Lumbar degenerative disc disease: (4) Lumbar radiculopathy: (5) Osteoarthritis of left hip: (6) Left knee pain: (7) Bilateral hip pain: (8) Encounter for long-term opiate analgesic use: Assessment and Plan: I feel these medications are improving the patient's quality of life and allow them to tolerate activities of daily living as well as participate in recreational activity.? The patient does not report intolerable side effects. The patient is NOT opioid naive and non-pharmacologic and non-opioid treatment has failed to significantly relieve the patient's pain and improve functionality. The patient has a diagnosis that is related to a somatic or visceral pain etiology. ? ?? I reviewed with the patient the potential risks and side effects with the use of? opioid medications including but not limited to respiratory depression,? sedation, and even . I verified the patient has access to naloxone should? these effects occur. I advised the patient to avoid the use of any other? sedation substances including alcohol, THC, and benzodiazepines while? taking opioid medications due to the risk of compounding side effects and? detrimental outcomes. I reviewed the L[employer]ING FIXTURE INSTALLER, pain treatment agreement, urine? drug screen, and opioid start talking forms. The patient was advised to let? their family know they had Naloxone in case they would need to administer? the medication.? ?? A drug screen was completed within the last year, and no aberrancies were noted regarding their use of controlled substances. The patient understands they are subject to the terms and conditions of the pain contract that they have signed. ? ?? I have checked an OARRS report on this patient today and there are no aberrancies noted in the prescribing history.? 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
== END 2024-06-06 08:13 | disposition home or self-care (01) ==
LOC: PM 08:12
PROVIDERS: PCP Internal Medicine; Visit Provider Nurse Practitioner
DX: M48.062 Spinal stenosis, lumbar region with neurogenic claudication (principal); M17.12 Unilateral primary osteoarthritis, left knee; M51.16 Intervertebral disc disorders with radiculopathy, lumbar region; M16.12 Unilateral primary osteoarthritis, left hip; M25.562 Pain in left knee; M25.552 Pain in left hip; M25.551 Pain in right hip; Z79.899 Other long term (current) drug therapy
CPT/HCPCS: G0463

== ENCOUNTER 2024-07-11 10:01 | Outpatient (OUT) | payer OTHER, SELFPAY ==
--- NOTE | 2024-07-11 13:31 | P.ON_ITS ---
Procedure: 6 Minute Walk Date: 07/11/2024 Indication: R06.09 MMRC: 2 Resting data: -BP: 138/86 -HR: 73 -SpO2: 98 -FiO2: Room air -Peace: 2 Description: 6 minute walk was initiated according to standard protocol. Patient ambulated f or a total of 6 minutes with the lowest SpO2 at 95%, the highest heart rate at 97, and highest Peace 6. Recovery data: -BP: 140/84 -HR: 75 -SpO2: 99% -FiO2: Room air -Peace: 5 Ambulation: Patient ambulated a total of 1300m which is 53% predicted. There were 0 stops reported. Impressions: No ambulatory desaturations noted. Reduced walk distance. Somewhat severe dyspnea was reported during the study. Recommendations: The patient does not qualify for supplemental O2 based on this study. Clinical correlation required.
== END 2024-07-11 10:02 | disposition home or self-care (01) ==
LOC: CARD 10:03
PROVIDERS: Visit Provider Internal Medicine Cardiovascular Disease
DX: R06.09 Other forms of dyspnea (principal)
CPT/HCPCS: 94618

== ENCOUNTER 2024-08-24 07:56 | Outpatient (OUT) | payer OTHER, SELFPAY ==
--- OUTSIDE RECORDS SUMMARY | 2024-08-24 08:02 | XMS_ITS | CCD ---
Author Organization [facility] Care Team Providers Care Insurance Sales Producer Name Role Phone Chandan Cool Unavailable Unavailable Osorio Sid William Unavailable Unavailable Required, No Pcp Unavailable Unavailable Chuck Cook Unavailable None, No PCP Unavailable Unavailable [facility], [facility] Primary Care Unavailable WEST, DR RADHA Gaxiola Consulting Unavailable DUNCAN ., DR LLUVIA Sheldon Attending Unavailable DUNCAN ., DR LLUVIA Sheldon Admitting Unavailable DUNCAN ., DR LLUVIA Sheldon Consulting Unavailable [facility], [facility] Primary Care Unavailable DUNCAN ., DR LLUVIA Sheldon Attending Unavailable DUNCAN ., DR LLUVIA Sheldon Consulting Unavailable DUNCAN ., DR LLUVIA Sheldon Admitting [facility]available [facility], [facility] Primary Care Unavailable DUNCAN ., DR LLUVIA Sheldon Attending Unavailable DUNCAN ., DR LLUVIA Sheldon Consulting Unavailable DUNCAN ., DR LLUVIA Sheldon Admitting [facility] Primary Care Unavailable ANDERSEN .RAVINDER Consulting Unavailable DUNCAN ., DR LLUVIA Sheldon Admitting Unavailable DUNCAN ., DR LLUVIA Sheldon Attending [facility] Primary Care Unavailable ANDERSEN .RAVINDER Consulting Unavailable DUNCAN ., DR LLUVIA Sheldon Admitting Unavailable DUNCAN ., DR LLUVIA Sheldon Attending [facility] Primary Care Unavailable LAKSHMIPATHY ., NARENDRANATH Attending Nadira vailable LAKSHMIPATHY ., NARENDRANATH Admitting Nadira vailable [facility], [facility] Primary Care Unavailable LAKSHMIPATHY ., NARENDRANATH Attending Nadira vailable LAKSHMIPATHY ., NARENDRANATH Consulting Nadira vailable LAKSHMIPATHY ., NARENDRANATH Admitting Nadira vailable [facility], [facility] Primary Care Unavailable LAKSHMIPATHY ., NARENDRANATH Consulting Nadira vailable LAKSHMIPATHY ., NARENDRANATH Admitting Nadira vailable LAKSHMIPATHY ., NARENDRANATH Attending Nadira vailable HELENA, COREAS H Primary Care Unavailable NATHALY .RAVINDER Consulting Unavailable CUCO ., DR LLUVIA Sheldon Attending Unavailable CUCO ., DR LLUVIA Sheldon Admitting Unavailable FAWWASis, COREAS H Primary Care Unavailable LAKSHMIPATHY ., NARENDEMERYATH Attending Nadira vailable RINA, DR DOMINGA William Consulting Unavailable LAKSHMIPATHY ., NARENDRANATH Admitting Nadira vailable LAKSHMIPATHY ., NARENDRANATH Consulting Nadira vailable Lakshmaepathy , Tonny Unavailable Lucero ZAPIEN, Rosa Marion Unavailable Nikunj Yanez MD Primary Care Provider Natanael CLIENT SUPPORT ANALYST, Mani Unavailable [phone] JONATHAN NAGY Attending Unavailable JONATHAN NAGY Attending Unavailable SHAIKH MALIK Attending Unavailable SHAIKH MALIK Attending Unavailable HELENA, Attending Unavailable MANI SANTOYO Attending Unavailakua e SHAIKH MALIK Attending Unavailable MANI SANTOYO Attending UnavailMANI Menon Attending UnavailELIAS Franklin Attending Unavailable ELIAS MANZANO Attending Unavailable Medications Current Medications Medication Drug Class(es) Dates Sig (Normalized) Sig (Original) acetaminophen 325 mg oral tablet (1 source) Start: 02-12-2021 End: 02-18-2021 take 2 tablets by mouth every six hours acetaminophen 325 mg oral tablet ; 2 tab(s) orally every 6 hours as needed for pain Quantity: 56 Refills: 0 Ordered: 12-Feb-2021 Jesusita Stevenson Start: 12-Feb-2021 End: 18-Feb-2021 Generic Substitution Allowed atenolol 25 mg oral tablet (14 sources) beta-Adrenergic Mook Start: 01-25-2017 take 1 tablet by mouth once daily atenolol (Tenormin) 25 MG tablet Take 25 mg by mouth Daily 05/23/2024 Active atorvastatin 20 mg oral tablet (20 sources) HMG-CoA Reductase Inhibitor Start: 02-23-2024 take 1 tablet by mouth once daily atorvastatin (Lipitor) 20 MG tablet Indications: Hyperlipidemia, unspecified (CMS/HCC) TAKE 1 TABLET BY MOUTH DAILY 90 tablet 1 02/23/2024 Active Start: 01-25-2017 Atorvastatin C alcium 40 MG Oral Tablet Quantity: 30 Refills: 0 Ordered: 25-Jan-2017 DO Start : 25-Jan-2017 Active Start: 01-25-2017 Atorvastatin C alcium 40 MG Oral Tablet Quantity: 30 Refills: 0 DO Start : 25-Jan-2017 Active 12 hr cetirizine hydrochloride 5 mg / pseudoephedrine hydrochloride 120 mg extended release oral tablet (18 sources) alpha-Adrenergic Agonist, Histamine-1 Receptor Antagonist Start: 08-09-2024 End: 11-07-2024 take 1 tablet by mouth once in the morning, then take 1 tablet by mouth every twelve hours at bedtime cetirizine-pseudoephedrine (ZyrTEC-D) 5-120 MG 12 hr tablet Indications: Chronic allergic rhinitis Take 1 tablet by mouth in the morning and 1 tablet before bedtime. 180 tablet 08/09/2024 11/07/2024 Active Start: 07-16-2024 End: 11-05-2024 take 5-120 mg by mouth every twelve hours cetirizine-pseudoephedrine (ZyrTEC-D) 5- 120 MG 12 hr tablet Indications: Chronic allergic rhinitis Take 1 tablet by mouth Daily 90 tablet 08/07/2024 08/09/2024 Discontinued (Reorder) Start: 03-19-2024 End: 07-16-2024 take 1 tablet by mouth once in the morning, then take 1 tablet by mouth every twelve hours at bedtime cetirizine-pseudoephedrine (ZyrTEC-D) 5- 120 MG 12 hr tablet Indications: Chronic allergic rhinitis Take 1 tablet by mouth in the morning and 1 tablet before bedtime. 180 tablet 03/19/2024 07/16/2024 Discontinued (Reorder) take 1 tablet by lizzie th twice daily cetirizine-pseudoephedrine (ZYRTEC-D) 5- 120 mg per tablet Take 1 tablet by mouth two times a day. Active clarithromycin 250 mg oral tablet (20 sources) Macrolide Antimicrobial Start: 08-16-2024 take 1 tablet by mouth once daily clarithromycin (Biaxin) 250 MG tablet Indications: Rosacea, unspecified Take 1 tablet (250 mg) by mouth Daily 90 tablet 08/16/2024 Active Start: 02-21-2024 End: 08-15-2024 take 1 tablet by mouth once daily clarithromycin (Biaxin) 250 MG tablet Indications: Rosacea, unspecified TAKE 1 TABLET BY MOUTH DAILY 90 tablet 02/21/2024 08/15/2024 Discontinued (Reorder) Start: 07-25-2017 take 1 tablet by lizzie th every twelve hours Clarithromycin 500 MG Oral Tablet TAKE 1 TABLET BY MOUTH EVERY 12 HOURS (hold lipitor for TEN days) Quantity: 14 Refills: 0 Ordered: 25-Jul-2017 DO Start : 25-Jul-2017 Active diazePAM 10 mg oral tablet (4 sources) Benzodiazepine Start: 04-02-2024 End: 05-03-2024 diazePAM (VALIUM) 10 mg tablet Take 10 [...] Allowed fexofenadine hydrochloride 180 mg oral tablet (2 sources) Histamine-1 Receptor Antagonist End: 08-09-2024 take 1 tablet by mouth once daily fexofenadine (Kristina) 180 MG tablet Take 180 mg by mouth Daily 08/09/2024 Discontinued (Med list cleanup) fluticasone propionate 0.05 mg/actuat metered dose nasal spray (16 sources) Corticosteroid Start: 03-15-2023 take 2 spray(s) nasal route in the morning fluticasone (Flonase) 50 MCG/ACT nasal spray Administer 2 sprays into each nostril in the morning. 03/15/2023 Active Start: 03-15-2023 fluticasone (F LONASE) 50 mcg/actuation nasal spray 2 Sprays. 03/15/2023 Active hydroCHLOROthiazide 12.5 mg / losartan potassium 50 mg oral tablet (14 sources) Thiazide Diuretic, Angiotensin 2 Receptor Mook Start: 02-23-2024 End: 08-21-2024 take 1 tablet by mouth once daily losartan-hydroCHLOROthiazide (Hyzaar) 50-12.5 MG tablet Indications: Primary hypertension (CMS/HCC) TAKE 1 TABLET BY MOUTH DAILY 90 tablet 1 02/23/2024 08/21/2024 Active meloxicam 15 mg oral tablet (15 sources) Nonsteroidal Anti-inflammator y Drug Start: 04-10-2024 take 1 tablet by mouth once daily meloxicam (Mobic) 15 MG tablet Take 15 mg by mouth Daily 04/10/2024 Active montelukast 10 mg oral tablet (16 sources) Leukotriene Receptor Antagonist Start: 02-23-2024 take 1 tablet by mouth once daily montelukast (Singulair) 10 MG tablet Indications: Allergic rhinitis, unspecified TAKE 1 TABLET BY MOUTH DAILY 90 tablet 1 02/23/2024 Active phentermine hydrochloride 37.5 mg oral capsule (20 sources) Sympathomimetic Amine Anorectic Start: 06-21-2024 End: 07-21-2024 take 1 capsule by mouth in the morning phentermine 37.5 MG capsule Indications: Class 1 obesity due to excess calories without serious comorbidity with body mass index (BMI) of 31.0 to 31.9 in adult Take 1 capsule (37.5 mg) by mouth in the morning. Take before meals. Do not start before June 21, 2024. 30 capsule 06/21/2024 Active Start: 05-21-2024 End: 08-09-2024 take 31-31.9 tablets by mouth before mealtime phentermine (Adipex-P) 37.5 MG tablet Indications: Class 1 obesity due to excess calories without serious comorbidity with body mass index (BMI) of 31.0 to 31.9 in adult Take 1 tablet (37.5 mg) by mouth in the morning. Take before meals. 30 tablet 07/09/2024 08/09/2024 Discontinued (Therapy completed) Start: 01-31-2024 End: 05-03-2024 take 31-31.9 capsules by mouth before mealtime phentermine 37.5 MG capsule Indications: Class 1 obesity due to excess calories without serious comorbidity with body mass index (BMI) of 31.0 to 31.9 in adult Take 1 capsule (37.5 mg) by mouth in the morning. Take before meals. 30 capsule 01/31/2024 05/03/2024 Discontinued (Therapy completed) See emr (1 source) See emr Quantity : 0 Refills: 0 Ordered: 12-Dec-2017 Isabel Dejesus Status: Discontinued Generic Substitution Allowed 1 ml testosterone cypionate 200 mg/ml injection (20 sources) Androgen Start: 12-12-2023 testosterone c ypionate (Depo-Testosterone) 200 MG/ML injection Inject 100 mg into the shoulder, thigh, or buttocks every 28 (twenty-eight) days 12/12/2023 Active Start: 12-12-2023 testosterone c ypionate (DEPO-TESTOSTERONE) 200 mg/mL injection Inject 100 mg intramuscularly every 4 weeks. 12/12/2023 Active testosterone nesha nthate (Xyosted) 75 MG/0.5ML solution auto-injector Inject 75 mg under the skin every 7 (seven) days Active zonisamide 50 mg oral capsule (15 sources) Anti-epileptic Agent Start: 04-10-2024 take 1 capsule by mouth at bedtime, then take 2 capsules by mouth at bedtime zonisamide (Zonegran) 50 MG capsule TAKE 1 CAPSULE BY MOUTH AT BEDTIME FOR 1 WEEK, then TAKE 2 CAPSULES AT BEDTIME THEREAFTER 04/10/2024 Active Completed/Discontinued Medications Medication Drug Class(es) Dates Sig (Normalized) Sig (Original) acetaminophen 325 mg / oxyCODONE hydrochloride 5 mg oral tablet (20 sources) Opioid Agonist Start: 12-31-2016 oxyCODONE-Acetamin ophen 5-325 MG Oral Tablet Quantity: 120 Refills: 0 Ordered: 31-Dec-2016 DO Start : 31-Dec-2016 Active take 1 tablet by lizzie th every six hours as needed oxyCODONE-acetaminophen (Percocet) 5-325 MG tablet Take 1 tablet by mouth every 6 (six) hours if needed Active take 1 tablet by lizzie th [...] Refills: 0 DO Start : 23-Mar-2017 Active 60 actuat budesonide 0.16 mg/actuat / formoterol fumarate 0.0045 mg/actuat metered dose inhaler (3 sources) Corticosteroid, beta2-Adrenergic Agonist Start: 03-23-2017 Symbicort 160-4.5 MCG/ACT Inhalation Aerosol Quantity: 10 Refills: 0 DO Start : 23-Mar-2017 Active famotidine 20 mg oral tablet (3 [...] 17 MCG/ACT Inhalation Aerosol Solution Refills: 0 Fleming MEME Chandan Start : 28-Nov-2017 Active lisinopril 20 mg [...] Active Problems Problem Classification Problem Date Documented Date Episodic/Chronic Chronic obstructive pulmonary disease and bronchiectasis (20 sources) Chronic obstructive lung disease; Translations: [Chronic airway obstruction, not elsewhere classified] Onset: 11-24-2016 06-06-2024 Chronic Coronary atherosclerosis and other heart disease (2 sources) Atherosclerotic heart disease of [place] coronary artery without angina pectoris; Translations: [Atherosclerotic heart disease of [place] coronary artery without angina pectoris] Onset: 05-15-2024 Chronic Disorders of lipid metabolism (18 sources) Hyperlipidemia; Translations: [Hyperlipidemia, unspecified] Onset: 08-18-2023 08-18-2023 Chronic Essential hypertension (20 sources) Hypertensive disorder; Translations: [Unspecified essential hypertension] Onset: 08-18-2023 08-18-2023 Chronic Hypertension with complications and secondary hypertension [...] SYNDROME RIGHT SHOULDER] Onset: 12-29-2022 Episodic Other endocrine disorders (16 sources) Testicular hypofunction; Translations: [Testicular hypofunction] Onset: 08-18-2023 08-18-2023 Chronic Other endocrine disorders (2 sources) Hypopituitarism; Translations: [Hypopituitarism] Onset: 08-09-2024 08-09-2024 Chronic Other inflammatory condition of skin (1 source) Rosacea; Translations: [Rosacea, unspecified] 08-15-2024 Chronic Other lower respiratory disease (6 sources) Disorder of diaphragm; Translations: [Disorders of diaphragm] Episodic Other lower respiratory disease (11 sources) Paralysis of diaphragm ; Translations: [Disorders of diaphragm] Onset: 06-06-2024 06-06-2024 Episodic Other lower respiratory disease (2 sources) Other forms of dyspnea; Translations: [Other forms of dyspnea] Onset: 07-11-2024 Episodic Other nervous system disorders (6 sources) Phrenic nerve disorder; 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 Other nervous system disorders (1 source) Other chronic pain; Translations: [OTHER CHRONIC PAIN] Onset: 11-28-2022 Chronic Other nervous system disorders (5 sources) Chronic pain syndrome; Translations: [CHRONIC PAIN SYNDROME] Onset: 01-29-2022 Chronic Other nervous system disorders (14 sources) Chronic pain syndrome; Translations: [Chronic pain syndrome] 05-03-2024 Chronic Other non-traumatic joint disorders (5 sources) Pain in right shoulder; Translations: [PAIN IN RIGHT SHOULDER] Onset: 11-28-2022 Episodic Other non-traumatic joint disorders (5 sources) Pain in left shoulder; Translations: [PAIN IN LEFT SHOULDER] Onset: 11-25-2022 Episodic Other nutritional; endocrine; and metabolic disorders (20 sources) Obesity caused by energy imbalance; Translations: [Class 1 obesity due to excess calories without serious comorbidity with body mass index (BMI) of 31.0 to 31.9 in adult] Onset: 12-29-2023 06-06-2024 Chronic Other nutritional; endocrine; and metabolic disorders (2 sources) Other obesity due to excess calories; Translations: [Other obesity due to excess calories] Onset: 05-14-2024 Chronic Other nutritional; endocrine; and metabolic disorders (2 sources) Body mass index (BMI) 31.0-31.9, adult; Translations: [Body mass index (BMI) 31.0-31.9, adult] Onset: 05-14-2024 Chronic Other upper respiratory disease (16 sources) Seasonal allergic rhinitis; Translations: [Other seasonal allergic rhinitis] Onset: 08-18-2023 08-18-2023 Chronic Other upper respiratory disease (17 sources) Allergic rhinitis; Translations: [Allergic rhinitis, unspecified] Onset: 12-29-2023 12-29-2023 Chronic Residual codes; unclassified (2 sources) Reduced libido; Translations: [Decreased libido] Onset: 08-09-2024 08-09-2024 Episodic Spondylosis; intervertebral disc disorders; other back [...] PLICATION 01-27-2021 Comment on above: DIAPHRAGM PLICATION Unclassified (1 source) Obesity, class 1; Translations: [Obesity, class 1] Onset: 05-14-2024 Past or Other Problems Problem Classification Problem Date Documented Da te Episodic/Chronic Cardiac dysrhythmias (14 sources) Atrial fibrillation; Translations: [Unspecified atrial fibrillation] Onset: 09-26-2023 Resolved: 11-23-2023 11-23-2023 Chronic Other connective tissue disease (1 source) Other muscle spasm; Translations: [OTHER MUSCLE SPASM] Onset: 05-23-2022 Episodic Other nutritional; endocrine; and metabolic disorders (9 sources) Weight increased; Translations: [Abnormal weight gain] Onset: 08-18-2023 08-18-2023 Episodic Other nutritional; endocrine; and metabolic disorders (5 sources) Weight gain; Translations: [Abnormal weight gain] Onset: 08-18-2023 08-18-2023 Episodic Other screening for suspected conditions (not mental disorders or infectious disease) (20 sources) Patient encounter status; Translations: [Encounter for screening for malignant neoplasm of colon] Onset: 08-18-2023 08-18-2023 Episodic Unclassified (1 source) Obesity, class 1; Translations: [Obesity, class 1] Onset: 07-11-2024 NEGATED: Highlighted row has not occurred!Residual codes; unclassified (14 sources) Disease Episodic Results Test Name Value Interpretation Reference Range Facility Office Visiton 07-11-2024 Follow-up visit [id number] Rigo Jefferson 1960 M Date Provider Department Center 07/11/2024 [id number] MANZANO [facility] Family History Problem Relation Age of Onset Diabetes Mother Hypertension Mother Hypertension Father Coronary artery disease Brother Hypertension Brother Diabetes Brother Family Status - Relation Status Age at Mother Father Brother Level of Service:30219 MO OFFICE/OUTPATIENT ESTABLISHED MOD MDM 30 MIN Reason for Visit and Comments: Coronary Artery Disease [187] Hypertension [508694] - Started on atenolol at last visit, had echo in may Hyperlipidemia [182] Shortness of Breath [501938] - PT ONLY HAS ONE LUNG Normal [facility] 36on 06-11-2024 36 From: Elias Manzano MD Sent: 05/31/2024 9:21 PM EDT To: Sofie Case MA Subject: RE: Scan Please inform patient that his echo is normal. His shortness of breath is most likely related to his lung problem. As I advised him in the visit let him call his pulmonary physician regarding his need for oxygen during exercise because he reported significant drop in his pulse ox with exercise Normal [facility] Telephoneon 06-11-2024 Telephone [id number] Rigo Jefferson 1960 M Date Provider Department Center 06/11/2024 [id number], TANA [facility] Family History Problem Relation Age of Onset Diabetes Mother Hypertension Mother Hypertension Father Coronary artery disease Brother Hypertension Brother Diabetes Brother Family Status - Relation Status Age at Mother Father Brother Normal [facility] No Panel Informationon 05-31 Radiology Study observation (narrative) [facility] XR CERV OTHER 4V AP/LAT/FLX/ EXTon 05-31-2024 IMPRESSION: Severe degenerative disc disease C4-C5. Solid bony fusion C5-C7. General Assembler: [facility] Transcribe Date/Time: May 31 2024 9:27P Dictated by : JENN SANTOYO MD This examination was interpreted and the report reviewed and electronically signed by: JENN SANTOYO MD on May 31 2024 9:29PM EST [facility] * * *Final Report* [...] and extension. No prevertebral soft tissue swelling. [facility] * * *Final Report* [...] disc disease C4-C5. Solid bony fusion C5-C7. General Assembler: [employer] Transcribe Date/Time: May 31 2024 9:27P Dictated by : JENN SANTOYO MD This examination was interpreted and the report reviewed and electronically signed by: JENN SANTOYO MD on May 31 2024 9:29PM EST [facility] XR CERV OTHER 4V AP/LAT/FLX/ EXTOrdered By: [facility] Provider on 05-31-2024 [facility] XR Lumbar spine Views W flex ion and W extensionon 05-31-2024 IMPRESSION: Mild to moderate multilevel degenerative change lumbar spine and suspected diffuse intrahepatic skeletal hyperostosis. General Assembler: [employer] Transcribe Date/Time: May 31 2024 9:29P Dictated [...] compression deformity identified. [facility] Provider, Anderson Aldana [facility] - 05/31/2024 * * *Final Report* [...] spine and suspected diffuse intrahepatic skeletal hyperostosis. General Assembler: SINAN Transcribe Date/Time: Sep 26 2024 9:29P Dictated by : JENN SANTOYO MD This examination was interpreted and the report reviewed and electronically signed by: JENN SANTOYO MD on May 31 2024 9:31PM EST [facility] Office Visiton 05-14-2024 Follow-up visit [id number] Rigo Jefferson 1960 M Date Provider Department Center 05/14/2024 [id number] MANZANO [facility] Family History Problem Relation Age of Onset Diabetes Mother Hypertension Mother Hypertension Father Coronary artery disease Brother Hypertension Brother Diabetes Brother Family Status - Relation Status Age at Mother Father Brother Level of Service:71703 MO OFFICE/OUTPATIENT NEW MODERATE MDM 45 MINUTES Reason for Visit and Comments: Hypertension [928172] - New patient to re-establish care. Ref for hypertension. Used to be on antihypertensives but is currently on none. Palpitations [532993] - Sometimes Shortness of Breath [733370] - Has 1 lung, hx of COPD, pulmonary emphysema Dizziness [] Normal [facility] MRI SHOULDER LT WO CONon [...] FLYNN Date: 2022-12-08 10:25 Normal [facility] MRI SHOULDER RT WO CONon MRI SHOULDER [...] by: DOMINGA FLYNN Date: 2022-12-08 10:35 Normal [facility] XR CSPINE OBL FLEX_EXTon XR CSPINE OBL [...] by: RADHA DIAZ Date: 2022-05-31 20:33 Normal [facility] Post Op (General Surgery)on 04-02-2021 Post Op [...] not he wants to follow-up with a engagement quality consultant in our system. Provider Impressions He is [...] not he wants to follow-up with a engagement quality consultant in our system. Chief Complaint An interactive [...] not he wants to follow-up with a engagement quality consultant in our system. Active Problems COPD (chronic [...] MG Oral Tablet Results/Data Xray Chest 1 [id number] 04:27PMJesusita Stevenson Test NameResultFlagReference Xray Chest 1 View(Report) FINAL REPORT Interpreted by: МАРИНА MARCELO MD 02/12/21 16:52 Patient Name: RIGO JEFFERSON STUDY: CHEST 1 VIEW; 02/12/2021 4:27 pm INDICATION: chest tube removal. COMPARISON: Prior 11:07 a.m. radiograph. ACCESSION NUMBER(S): [id number] ORDERING CLINICIAN: JESUSITA STEVENSON FINDINGS: Left basilar chest tube has been [...] 16:52 Signatures Electronically signed by : Chuck Cook MD; Apr 02 2021 5:38PM EST (Author) Normal [employer] Admission Risk Screen - Adul ton 02-12-2021 Admission Risk Screen - Adult Allergies: Allergies: No Known Allergies: Patient Verification: New W ID Band Applied in my Departmentno Type of ID Patient is WearingW wristband, but not applied here Patient Transferred from Other Facility ([facility], [facility],etc)no Patient Identity Verified Bypatient ID [...] AlertFor Ebola-like Symptoms: Isolate Patient and Notify Provider/Inspector Boiler For Contact: Notify Provider/Inspector Boiler Advance Directive: Advance Directive/DNRno (1) Advance Directive [...] Learning Preferencesverbal instruction Cultural Considerationsnone Developmental Considerationsnone Pentecostal Considerationsnone Learning Assessment (Other Learner): Other learner availableno Depression Screen: During the past month, have you often been bothered by feeling down, depressed or hopelessno (1) During the past month, have you often had little interest or pleasure in doing thingsno (1) Have you had any thoughts of harming anyone elseno (1) [place] Suicide: Risk Screen Not Applicable/Able to Answerable to be screened In the Past Month: Have you wished you were or could go to sleep and not wake upno(1) In the Past Month: Have you had any actual thoughts of killing yourself no(1) Lifetime: Have you ever done, started to do, or prepared to do anything to end your lifeno(1) [place] Suicide Risknegative Adult Nutrition Screen: Have you [...] Pain (nonverbal)verbalization (more content not included)... Normal [facility] BASIC METABOLIC PANELon 02-03 Anion gap [Moles/Vol] 15 mmol/L Normal 10 - 20 [facility] Comment on above: Performed By: #### B MP #### [facility] [address] [place] [address] Calcium [Mass/Vol] 9.5 mg/dL Normal 8.6 - 10.6 [facility] Comment on above: Performed By: #### B MP #### [facility] [address] [place] [address] Chloride [Moles/Vol] 102 mmol/L Normal 98 - 107 [facility] Comment on above: Performed By: #### B MP #### [facility] [address] [place] [address] Creatinine [Mass/Vol] 0.98 mg/dL Normal 0.50 - 1.30 [facility] Comment on above: Performed By: #### B MP #### [facility] [address] [place] [address] GFR- AM. >60 Normal >60 [facility] Comment on above: Result Comment: CALC ULATIONS OF ESTIMATED GFR ARE PERFORMED USING THE MDRD STUDY EQUATION FOR THE IDMS-TRACEABLE CREATININE METHODS. CLIN CHEM 2007;53:766-72 Performed By: #### B MP #### [facility] [address] [place] [address] GFR-NON AM. >60 Normal >60 [facility] Comment on above: Performed By: #### B MP #### [facility] [address] [place] [address] Glucose [Mass/Vol] 133 mg/dL High 74 - 99 [facility] Comment on above: Performed By: #### B MP #### [facility] [address] [place] [address] HCO3 (Bld) [Moles/Vol] 24 mmol/L Normal 21 - 32 [facility] Comment on above: Performed By: #### B MP #### [facility] [address] [place] [address] Potassium [Moles/Vol] 4.3 mmol/L Normal 3.5 - 5.3 [facility] Comment on above: Performed By: #### B MP #### [facility] [address] [place] [address] Sodium [Moles/Vol] 137 mmol/L Normal 136 - 145 [facility] Comment on above: Performed By: #### B MP #### [facility] [address] [place] [address] Urea nitrogen [Mass/Vol] 17 mg/dL Normal 6 - 23 [facility] Comment on above: Performed By: #### B MP #### [facility] [address] [place] [address] CBCon 02-12-2021 Erythrocyte distribution width (RBC) [Ratio] 12.1 % Normal 11.5 - 14.5 [facility] Comment on above: Performed By: #### C BC #### [facility] [address] [place] [address] Hematocrit (Bld) [Volume fraction] 45.8 % Normal 41.0 - 52.0 [facility] Comment on above: Performed By: #### C BC #### [facility] [address] [place] [address] Hemoglobin (Bld) [Mass/Vol] 15.0 g/dL Normal 13.5 - 17.5 [facility] Comment on above: Performed By: #### C BC #### [facility] [address] [place] [address] MCHC (RBC) [Mass/Vol] 32.8 g/dL Normal 32.0 - 36.0 [facility] Comment on above: Performed By: #### C BC #### [facility] [address] [place] [address] MCV (RBC) [Entitic vol] 94 fL Normal 80 - 100 [facility] Comment on above: Performed By: #### C BC #### [facility] [address] [place] [address] NUCLEATED RBC 0.0 /100 WBC Normal 0.0-0.0 [facility] Comment on above: Performed By: #### C BC #### [facility] [address] [place] [address] Platelets (Bld) [#/Vol] 228 10*3/uL Normal 150 - 450 [facility] Comment on above: Performed By: #### C BC #### [facility] [address] [place] [address] RBC 4.85 x10E12/L Normal 4.50 - 5.90 [facility] Comment on above: Performed By: #### C BC #### [facility] [address] [place] [address] WBC (Bld) [#/Vol] 12.8 10*3/uL High 4.4 - 11.3 [facility] Comment on above: Performed By: #### C BC #### [facility] [address] [place] [address] Clinical Event Note-POCon Clinical Event Note-POC Clinical [...] - Rest of care per primary team MD Don Salazar resident overnight Electronic Signatures: Nataliia Ferris (Resident)) (Signed 12-Feb-2021 00:41) Authored: Clinical Event Note Last Updated: 12-Feb-2021 00:41 by Nataliia Ferris (Resident)) Normal [facility] Daily Progress Note-Surgeryo n 02-12-2021 Daily Progress [...] yet. Objective Data: Objective Information: T PRBPSpO2 Value35.37615630/8695% Date/Time02/12 6: 6: 6:4902/12 6: 6:49 Range(35.4C - 36.4C ) (77 - 99 ) (17 - 18 ) (127 - 147 )/ (86 - 91 ) (95% - 96% ) Pain reported at 02/12 2:54: 6 = Moderate ---- Intake and Output ----- Mn/Dy/[facility]Int[facility]OutputM[facility] Feb 12, 2021 6:00 [id number] Feb 11, 2021 10:00 [id number] The Intake and Output Totals for the last 24 hours are: IntakeOutputNet [id number] Physical Exam by System: Constitutional: Well developed, [...] discuss with senior resident and attending. Jesusita Stevenson DO PGY1 Signature/Cosignature/Atte station: Note Completion: I am a: Resident/Fellow Attending AttestationI reviewed the resident/fellows documentation and discussed the patient with the resident/fellow. I agree with the resident/fellows medical decision making as documented in the note. Electronic Signatures: Jesusita Stevenson (Resident)) (Signed 12-Feb-2021 10:38) Authored: Service, Subjective Data, Objective Data, Assessment and Plan, Note Completion Chuck Cook) (Signed 13-Feb-2021 10:13) Authored: Note Completion Co-Signer: Service, Subjective Data, Objective Data, Assessment and Plan, Note Completion Last Updated: 13-Feb-2021 10:13 by Chuck Cook) Normal [facility] Discharge Planning Utyi0zy 0 02-12-2021 Discharge Planning Note2 Discharge Planning: Needs Prior to Discharge (ex. Home Care Orders, IV/O2 prescriptions) Follow up appointments Discharge Barriers (ex. Avoidable days, wait guardianship, pt refuse leave) None Planned Dispositionhome Discharge DestinationHome [facility] 20[facility] [place] of Choice Explainedyes preference Anticipated Discharge [id number] Discharge Planning 02/12/2021 0135 Discharge Plan Patient transferred from [place] [address] from PACU for diaphragm plication. Pt is A&O times 4. at 3 liters oxygen. Pt denies any medical operations supervisor use at home. Pt emergency continuity person Sahil Joe- son. Pt have valuable [...] disposition: Home Potential Barriers: none ADOD: 02/12. teller coordinator will continue to follow for discharge planning needs. Franny Gilliam RN, Transitional Elevator Constructor Hydraulic/TCC, pager [phone] Discharge note: 02/12/21 @ 1735: PT discharged home at this time. pts peripheral IV taken out prior to DC. pt given DC instructions. pt verbalized understanding. pt refused transport and walked downstairs with his son.---Erika miramontes RN Assessment: Discharge Planning Assessment [id number] Primary Contact Name and NumberAdam [phone](1) Stated Reason for Admissiondiaphragm plication(2) Arrived FromOR (2) Lives Withparent(s)(2) Living Arrangementshouse(2) Resource/Environmental Concernsnone(2) Anticipated Transition Tohome(2) Services Anticipated at Transitionnone(2) Discharge Documentation: Discharge/Transfer Date/Ooyp31-Ljj-0583 17:35 Discharge Modeambulatory Discharged Accompanied Byfamily member Transportation Methodprivate car Valuables/Medications/Belo ngings Returnedyes Final DispositionHome Electronic Signatures: Luiza Gilliamdannyvladislav (CLIN COOR) (Signed 12-Feb-2021 13:19) Authored: Discharge Planning Erika Miramontes (RN) (Signed 12-Feb-2021 17:40) Authored: Discharge Planning, Discharge Documentation Mary Beth Holcomb (RN) (Signed 12-Feb-2021 01:41) Authored: Discharge Planning, Assessment Last Updated: 12-Feb-2021 17:40 by Erika Miramontes (RN) References: 1. Data Referenced From Patient Profile - Preop v2 11-Feb-2021 12:02 2. Data Referenced From Patient Profile - Adult v2 12-Feb-2021 01:31 Normal [facility] Discharge Rktovby0la 021 Discharge Profile2 Discharge Orders: Anticipated Discharge Date: Anticipated Discharge [id number]-1482 DNAR: DNAR Status: none Call Provider If [...] Reconciliation and Orders Completedby Physician Reviewing ProviderJesusita Stevenson DO (Resident) at 12-Feb-2021 14:39:47 Appointments: Follow-Up Appointment 01: Physician/Dept/ServiceYour PCP Reason for Referralhospital follow-up Call to Schedule in1 week Follow-Up Appointment 02: Physician/Dept/MilenaDr. Onders - surgery Reason for Referralhospital follow-up / diaphragm pacer removal, hemidiaphragm plication Call to Schedule in2 weeks [id number] [place] [address] Phone [phone] Other Clinician Instructions: Other Instructions: Other Clinician InstructionsPlease take your medications as directed. Please follow-up with Dr. Cook and with your PCP as directed. You may remove dressings and shower Tuesday. No heavy lifting >20lbs or strenours activity for 3 weeks. If your symptoms return or worsen, please seek medical attention. Thank you for allowing us to participate in your care. Electronic Signatures: Jesusita Stevenson ( (Resident)) (Signed 12-Feb-2021 15:27) Authored: Discharge Orders, Provider FINAL REVIEW of Orders, Appointments, Other Clinician Instructions, Gold Form - Toolsmith Summary Last Updated: 12-Feb-2021 15:27 by Jesusita Stevenson (DO (Resident)) Normal [facility] Laboratory - Chemistry and C hemistry - challengeon 02-12-2021 Anion gap [Moles/Vol] 15 mmol/L 10 - [address] MB[address]uvyhzy-[address] [facility] Work Phone: Calcium [Mass/Vol] 9.5 mg/dL 8.6 - 10.6 MG-Tino raysa-G [facility] Work Phone: Chloride [Moles/Vol] 102 mmol/L 98 - 107 UN[address]Xvcguom-[address] Work Phone: CO2 [Moles/Vol] 24 mmol/L 21 - 32 MG-Surger y-G [facility] Work Phone: Creatinine [Mass/Vol] 0.98 mg/dL See Below KQ-Pckitew-R [address] Work Phone: Comment on above: Reference Range: 0.5 0 - 1.30 Glucose [Mass/Vol] 133 mg/dL above high threshold 74 - 99 VY-Kdplnbr-Y [address] Work Phone: Potassium [Moles/Vol] 4.3 mmol/L 3.5 - 5.3 QB[address]Ouhhskl-K [address] Work Phone: Sodium [Moles/Vol] 137 mmol/L 136 - 145 MG-Tino raysa-G [facility] [place] [address] Work Phone: Urea nitrogen [Mass/Vol] 17 mg/dL 6 - 23 XC-Dqhajwm-M [address] [facility] Work Phone: Laboratory - Hematology and Cell countson 02-12-2021 Erythrocyte distribution width (RBC) [Ratio] 12.1 % See Below ZH-Drblqns-Q [address] Work Phone: Comment on above: Reference Range: 11. 5 - 14.5 Hematocrit (Bld) [Volume fraction] 45.8 % See Below CY-Srqcvzj-R [address] [facility] Work Phone: Comment on above: Reference Range: 41. 0 - 52.0 Hemoglobin (Bld) [Mass/Vol] 15.0 g/dL See Below NP-Ayhwkyo-V reen [place] [address] Work Phone: Comment on above: Reference Range: 13. 5 - 17.5 MCHC (RBC) [Mass/Vol] 32.8 g/dL See Below WN-Wnvcrdh-F [employer]ulation [employer] Verification Engineeringn [place] [address] Work Phone: Comment on above: Reference Range: 32. 0 - 36.0 MCV (RBC) [Entitic vol] 94 fL 80 - 100 CP-Nwsgjpq-U griffinn [place] [address] Work Phone: Platelets (Bld) [#/Vol] 228 10*3/uL 150 - 450 JR-Heacmnw-S reen [place] [address] Work Phone: RBC (Bld) [#/Vol] 4.85 {x10E12/L} See Below MG -Surgery-G [employer]n [place] [address] Work Phone: Comment on above: Reference Range: 4.5 0 - 5.90 WBC (Bld) [#/Vol] 12.8 10*3/uL above high threshold 4.4 - 11.3 IK-Tyszrtb-Q [address] [facility] Work Phone: No Panel Informationon 02-12 >60 >60 MC-Ay[address]up-Z [address] [facility] Work Phone: Comment on above: CALCULATIONS OF LANRE MATED GFR ARE PERFORMED USING THE MDRD STUDY EQUATION FOR THE IDMS-TRACEABLE CREATININE METHODS. CLIN CHEM 2007;53:766-72 0.0 {/100_WBC} 0.0-0.0 MG-Surgery -G [facility] 107 Work Phone: Order Reconciliationon 02-12 Order Reconciliation Page 1 Discharge Reconciliation Document Reconciliation Type: Discharge requested on behalf of Jesusita Stevenson (Resident) done by Jesusita Stevenson (DO (Resident)) Discharge - Reconciliation: 12-Feb-2021 14:44 by: Jesusita Stevenson (DO (Resident)) Home Medications EnteredHOME MEDICATIONS AT [...] tab(s) orally 2 times a day Normal [facility] Patient Profile - Adult v2on 02-12-2021 Patient Profile - Adult v2 Profile: Initial Info: How to be AddressedDel(1) Spoken Language PreferredEnglish (1) Stated Reason for Admissiondiaphragm plication Patient Belongingsremains with patient Patient Belongings Remaining with Patientcash/credit card; clothing Arrived FromOR Medications Brought to Hospitalno Are you currently using the Personal Electronic Health Record or Funky Movesno (1) Wants Family/Rep Notified of Admissionyes, primary contact Notify PCPnotify PCP Informed of Patient Visiting Rightsyes General Health: Blood Avoidance/Restrictionsnone (1) Previous Transfusion Reactionno(2) Weight in kg109.8 kilogram(s)(3) Weight in lez674 pound(s) Weight Methodactual (measured) (3) Scale Typestanding [...] 12-Feb-2021 01:34) Authored: Initial Info, General Health, [facility] Based Care, Substance, Health Mgmt, Relationship/Environ, Additional Information Last Updated: 12-Feb-2021 01:34 by Mary Beth Holcomb (ASIA) References: 1. Data Referenced From Patient Profile - Preop v2 11-Feb-2021 12:02 2. Data Referenced From Patient Profile - Adult v2 12-Dec-2017 16:00 3. Data Referenced From 1. Vital Signs 11-Feb-2021 12:02 Normal [facility] Radiologyon 02-12-2021 XR Chest Single view Normal UM-Gqszyor-D [address] Work Phone: XR Chest Single view Normal SN-Vqebvey-A [facility] Work Phone: XR Chest Single view Normal MW-Rueaozt-S [address] Work Phone: TH CHEST 1 VIEWon 02-12-2021 TH CHEST 1 VIEW Patient Name: RIGO JEFFERSON STUDY: CHEST 1 VIEW; 02/12/2021 4:27 pm INDICATION: chest tube removal. COMPARISON: Prior 11:07 a.m. radiograph. ACCESSION NUMBER(S): [id number] ORDERING CLINICIAN: JESUSITA STEVENSON FINDINGS: Left basilar chest tube has been removed. CARDIOMEDIASTINAL SILHOUETTE: Cardiomediastinal silhouette is normal in size and configuration. LUNGS: Small pleural effusions with left more than right basilar consolidation. ABDOMEN: No remarkable upper abdominal findings. BONES: No acute osseous changes. IMPRESSION: 1. Small pleural effusions with left more than right basilar consolidation. 2. No pneumothorax. Electronically signed by: МАРИНА MARCELO MD Normal [facility] CHEST 1 VIEW Patient Name: RIGO JEFFERSON STUDY: CHEST 1 VIEW; 02/12/2021 11:58 am INDICATION: chest tube wet seal. COMPARISON: 7:02 a.m. radiograph. ACCESSION NUMBER(S): [id number] ORDERING CLINICIAN: JESUSITA STEVENSON FINDINGS: Left basilar pigtail chest tube is [...] Electronically signed by: МАРИНА MARCELO MD Normal [facility] CHEST 1 VIEW Patient Name: RIGO JEFFERSON STUDY: CHEST 1 VIEW; 02/12/2021 7:13 am INDICATION: POD 1 s/p diaphragm plication. COMPARISON: 02/11/2021. ACCESSION NUMBER(S): [id number] ORDERING CLINICIAN: SAW SALEEM FINDINGS: Left basilar pigtail chest tube is [...] Electronically signed by: МАРИНА MARCELO MD Normal [facility] No Panel Informationon 02-11 [place] [address] Work Phone: Operative Reports - [facility] [place] [address] Patient Name: RIGO JEFFERSON : 1960 Date of Service: 02/11/2021 Patient Location: [place] [address] [id number] Patient Type: I Surgeon: Chuck Cook MD Report Type: Operative Reports PREOPERATIVE DIAGNOSIS: Chronic respiratory failure, left diaphragm dysfunction. POSTOPERATIVE DIAGNOSIS: Chronic respiratory failure, left diaphragm dysfunction. OPERATION/PROCEDURE: Laparoscopic left diaphragm plication with removal of previous diaphragm pacing wires. SURGEON: Chuck Cook MD VISION THERAPIST(S): Saw Saleem MD. There was no available resident. ANESTHESIA: [...] and skin incisions with 4-0 Vicryl. Chuck Cook MD EST TT: 02/12/2021 12:44 PM EST DICTATION NUMBER: [id number] BRIE JOB NUMBER: [id number] CC: PT STATES NONE PCP Electronic Signatures: Chuck Cook) (Signed on 13-Feb-2021 10:15) Authored Unsigned, Draft (SYS GENERATED) (Entered on 12-Feb-2021 12:44) Entered Last Updated: 13-Feb-2021 10:15 by Chuck Cook) Normal [facility] Order Reconciliationon 02-11 Order Reconciliation Page 1 Admission Reconciliation Document Reconciliation Type: Admission from OR requested on behalf of Saw Saleem (Physician) done by Saw Saleem) Admission from OR - Reconciliation: 11-Feb-2021 18:31 by: Saw Saleem) Home MedicationsEnteredLast Dose TakenReconciled with current Order Reconciliation Comment/ Additional Information Kristina 24 Hour Allergy oral tablet 1 tab(s) orally once a [id number]-Feb-2021 AM Reviewed and Held clarithromycin 250 mg oral tablet 250 milligram(s) orally once a day Clarithromycin Tablet (BIAXIN)DOSE = 250 mg Oral Every 24 Hoursclarithromycin 250 mg oral tablet continued as the inpatient order Clarithromycin diclofenac sodium 50 mg oral delayed release tablet 1 tab(s) orally 2 times a [id number] AM Reviewed and Held oxycodone-acetaminophen 5 mg-300 mg oral tablet 1 tab(s) orally 2 times a day [id number] AM Reviewed and Held Additional Current Orders [...] 15 minute(s)Clinician Notes: Carlota-operative order ONLY Normal [facility] Patient Profile - Preop v2on 02-11-2021 Patient Profile - Preop v2 Profile: Initial Info: How to be AddressedDel(1) Spoken Language PreferredEnglish (1) Source of Informationpatient Are you currently using the Personal Electronic Health Record or Funky Movesno (1) Are you interested in learning more about [facility] for the management of your healthnot at this time Stated Reason for AdmissionL pulling of wires/pulling lung down [facility] [phone] Patient Belongingspatient educated regarding responsibility for personal items Medications Brought to Hospitalno General Health: Weight in kg109.8 kilogram(s) Weight in zam429 pound(s) Weight Methodactual (measured) Scale Typestanding Height [...] Learning Preferencesverbal instruction Cultural Considerationsnone Developmental Considerationsnone Pentecostal Considerationsnone Other learner availableno [place] RiskPatient location auto qualifies him/her for HIGH RISK. Are there any cultural, spiritual, amish practices/values/needs that are important for us to [...] Profile - Adult v2 12-Dec-2017 16:00 Normal [facility] Preop Checkliston 02-11-2021 Preop Checklist Preop Checklist: Preop Checklist: Arrival [id number] Arrival Time11:48 Procedure TypeL laparoscopic diaphragm plication Temperature C36.1 degrees C Temperature F96.9 degrees F Heart Rate70 beats per minute Respiratory Rate12 breath per minute Blood Pressure Hwbamvco994 mm/Hg Blood Pressure Eydotrtlj90 mm/Hg NPO Whyrqm60-Jsp-8233 00:00 ID Band Onyes Allergy Bandno known [...] 11-Feb-2021 12:02 by Jany Ann (ASIA) Normal [facility] Radiologyon 02-11-2021 XR Chest Single view Please click on the link to view the study images Normal [place] [address] Work Phone: [facility] Surgical Pathology Depar tmenton 02-11-2021 [facility] Surgical Pathology Department Name RIGO JEFFERSON Pathologist: JACINTO MURRIETA MD Date of Procedure: 02/11/2021 Date Received: 02/12/2021 Date Reported 02/19/2021 Submitting Physician: CHUCK COOK M.D. Location: [facility] Copy To/Referring/Attending: CHUCK COOK M.D. Other External # FINAL DIAGNOSIS A. [...] this case. Clinical History: Physician Contact Number: [phone] Fixative (A): Fresh Clinical Diagnosis History: disorders of diaphragm Specimens Submitted As: A: PACING WIRE Gross Description: Received in formalin, labeled with the patient's name and hospital number, are multiple wires with a piece of adipose tissue attached measuring 3.0 x 1.6 x 1.0 cm. A photograph is taken. The attached soft tissue is submitted entirely in one cassette. EXB exb/02/12/2021 [facility] Department of Pathology [address] [place] [address] Normal [facility] Comment on above: Performed By: #### U [facility] ####[facility] Surgical Pathology [address] [place] [address] CORONAVIRUS 2019, SCREEN ASY MPTOMATICon 02-10-2021 SARS-CoV-2 (COVID-19) RNA BECCA+probe Ql (Unsp spec) Not detected Normal Not Detected [facility] Comment on above: Result Comment: . This [...] patient management decisions. Fact sheet for providers: https://www.fda.gov/media/760560/download Fact sheet for patients: https://www.fda.gov/media/759333/download This test has received FDA Emergency Use Authorization (EUA) and has been verified by [facility] ([facility]). This test is only authorized for the duration of time that circumstances exist to justify the authorization of the emergency use of in vitro diagnostic tests for the detection of SARS-CoV-2 virus and/or diagnosis of COVID-19 infection under section 564(b)(1) of the Act, 21 U.S.C. 360bbb-3(b)(1), unless the authorization is terminated or revoked sooner. [facility] is certified under CLIA-88 as qualified to perform high complexity testing. Testing is performed in the [facility] laboratories located at [address] [place] [address]. Performed By: #### C OVSC #### [address] [place] [address] Covid 19 Resultson 1 SARS-CoV-2 (COVID-19) RNA [...] You may also be contacted by the [facility] to see if any of [...] or Naproxen (Aleve) can also be used. Inxb-zau-agkmbje cough and cold medicines can be used according to the instructions on the package. Some fulw-fpe-ufkqjsv medicines also contain acetaminophen. Make sure you [...] water are not available, use alcohol-based hand compressed yeast supervisor. Avoid touching your eyes, nose, and mouth [...] 24 alem (more content not included)... Normal [facility] CORONAVIRUS 2019, SCREEN ASY MPTOMATICon 02-09-2021 Lab Specimen Source Nasal, Nasopharyngeal Normal [facility] Comment on above: Performed By: #### C OVSC #### [facility] [address] [place] [address] Coronavirus 2019 RNA by PCR, Screening Asymptomticon 02-09-2021 Coronavirus 2019 RNA by PCR, Screening Asymptomtic Not detected Normal See Below AI-Ijunjkx-D [facility] 107 Work Phone: Comment on above: [...] make patient management decisions.Fact sheet for providers: https://www.fda.gov/media/981132/downloadFact sheet for patients: https://www.fda.gov/media/903516/downloadThis test has received FDA Emergency Use Authorization (EUA) and has been verified by [facility] ([facility]). This test is only authorized for the duration of time that circumstances exist to justify the authorization of the emergency use of in vitro diagnostic tests for the detection of SARS-CoV-2 virus and/or diagnosis of COVID-19 infection under section 564(b)(1) of the Act, 21 U.S.C. 360bbb-3(b)(1), unless the authorization is terminated or revoked sooner. [facility] is certified under CLIA-88 as qualified to perform high complexity testing. Testing is performed in the [facility] laboratories located at [address] [place] [address]. BASIC METABOLIC PANELon 05-2 Anion gap [Moles/Vol] 13 mmol/L Normal 10 - 20 [facility] Comment on above: Performed By: #### B MP ####[id number] [place] [id number] Calcium [Mass/Vol] 9.7 mg/dL Normal 8.6 - 10.6 [facility] Comment on above: Performed By: #### B MP ####[id number] [facility].[place] [id number] Chloride [Moles/Vol] 108 mmol/L High 98 - 107 [facility] Comment on above: Performed By: #### B MP ####[id number] [place] [id number] Creatinine [Mass/Vol] 1.04 mg/dL Normal 0.50 - 1.30 [facility] Comment on above: Performed By: #### B MP ####[id number] [place] [address] GFR- AM. >60 Normal >60 [facility] Comment on above: Result Comment: CALC ULATIONS OF ESTIMATED GFR ARE PERFORMED USING THE MDRD STUDY EQUATION FOR THE IDMS-TRACEABLE CREATININE METHODS. CLIN CHEM 2007;53:766-72 Performed By: #### B MP ####[id number] [place] [address] GFR-NON AM. >60 Normal >60 [facility] Comment on above: Performed By: #### B MP ####[id number] [place] [address] Glucose [Mass/Vol] 91 mg/dL Normal 74 - 99 [facility] Comment on above: Performed By: #### B MP ####[id number] [place] [address] HCO3 (Bld) [Moles/Vol] 29 mmol/L Normal 21 - 32 [facility] Comment on above: Performed By: #### B MP ####[id number] [place] [address] Potassium [Moles/Vol] 4.6 mmol/L Normal 3.5 - 5.3 [facility] Comment on above: Performed By: #### B MP ####[id number] [place] [address] Sodium [Moles/Vol] 145 mmol/L Normal 136 - 145 [facility] Comment on above: Performed By: #### B MP ####[id number] [place] [address] Urea nitrogen [Mass/Vol] 13 mg/dL Normal 6 - 23 [facility] Comment on above: Performed By: #### B MP ####[id number] [place] [address] CBCon 01-27-2021 Erythrocyte distribution width (RBC) [Ratio] 12.2 % Normal 11.5 - 14.5 [facility] Comment on above: Performed By: #### C BC ####[id number] [place] [address] Hematocrit (Bld) [Volume fraction] 46.7 % Normal 41.0 - 52.0 [facility] Comment on above: Performed By: #### C BC ####[id number] [place] [address] Hemoglobin (Bld) [Mass/Vol] 15.1 g/dL Normal 13.5 - 17.5 [facility] Comment on above: Performed By: #### C BC ####[id number] [place] [address] MCHC (RBC) [Mass/Vol] 32.3 g/dL Normal 32.0 - 36.0 [facility] Comment on above: Performed By: #### C BC ####[id number] [place] [address] MCV (RBC) [Entitic vol] 96 fL Normal 80 - 100 [facility] Comment on above: Performed By: #### C BC ####[id number] [place] [address] NUCLEATED RBC 0.0 /100 WBC Normal 0.0-0.0 [facility] Comment on above: Performed By: #### C BC ####[id number] [place] [address] Platelets (Bld) [#/Vol] 209 10*3/uL Normal 150 - 450 [facility] Comment on above: Performed By: #### C BC ####[id number] [place] [address] RBC 4.85 x10E12/L Normal 4.50 - 5.90 [facility] Comment on above: Performed By: #### C BC ####[id number] [place] [address] WBC (Bld) [#/Vol] 7.2 10*3/uL Normal 4.4 - 11.3 [facility] Comment on above: Performed By: #### C BC ####[id number] [place] [address] Follow Up (General Surgery)o n 01-27-2021 Follow [...] For - Scheduling; Requested for:27Jan2021; Perform: [facility] [place] 1800; Due:27Apr2021;Ordered; For:Diaphragm dysfunction, [...] pursue Feb [address] Cook will remove the electrodes during that surgery. 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 He was turning the device off [...] MG Oral Tablet Vitals Vital Signs Recorded: [id number] 11:12AM Zledlrtbnak00.1 F Heart Rate77 Nyqqocmh227 Ekuxpkapc13 Axexzz302 lb BMI Btoskdsbcy97.64 kg/m2 BSA Calculated2.33 Tobacco Useb) No Physical [...] the r (more content not included)... Normal [employer] No Panel Informationon 01-27 http://[email or web address] 1:8080 /[email or web address]?R etrieveTestByDateTime?Sherita pdyZE=[id number]&Date=&Time=13%3a24%3a34%3a 00&TestType=ECG&Site=1&Out putType=PDF&Ext=PDF TS-Skrgebr-[address] Work Phone: [phone] Normal sinus rhythm MG-Ramos rgery-[address] Work Phone: [phone] Normal GO-Xrlwxho-[address] Work Phone: [phone] SE-Bhvomjp-[address] Work Phone: [phone] WL-Dhabhxk-[address] Work Phone: [phone] PP-Peghyrr-[address] Work Phone: [phone] OT-Objqgtm-[address] Work Phone: [phone] YC-Bqenzic-[address] Work Phone: [phone] JX-Riwirff-[address] Work Phone: [phone] FF-Zgkorns-[address] Work Phone: [phone] QH-Uykrmzy-[address] Work Phone: [phone] JN-Tsneeyc-O [address] Work Phone: [phone] GE-Yqhqylf-Y [address] Work Phone: [phone] AV-Fwglhed-[address] Work Phone: [phone] CP-Yfkwtlc-Q [address] Work Phone: [phone] AP-Ppbaeee-Q [address] Work Phone: [phone] SQ-Jkgitwh-[address] Work Phone: Radiologyon 01-27-2021 XR Chest 2 Views Normal MG-Surge ry-[address] Work Phone: TH CHEST 2 VIEW PA AND LATon 01-27-2021 TH CHEST 2 VIEW PA AND LAT Patient Name: RIGO JEFFERSON STUDY: TH CHEST 2 VIEW PA AND LAT; 01/27/2021 11:00 am INDICATION: chronic hypoventilation. COMPARISON: Chest radiograph 04/03/2019 ACCESSION NUMBER(S): [id number] ORDERING CLINICIAN: CHUCK COOK FINDINGS: Inspiratory and expiratory PA radiographs, an [...] Electronically signed by: ANGI CAICEDO MD Normal [facility] Tobacco Screening.on 021 Tobacco use status CPHS b) No LG-Oatenkr-[address] Work Phone: Tobacco Screening. b) No MG-Tino raysa-G [employer] [address] [employer] Work Phone: Otheron 04-03-2019 XR Chest 2 views Interpreted by: ISAK04/03/19 14:06MRN: [id number] Name: RIGO JEFFERSON STUDY:CHEST 2 VIEW PA AND LAT; 04/03/2019 1:26 pm INDICATION:chronic hypoventilation. COMPARISON:01/12/2018 ORDERING CLINICIAN:CHUCK COOK FINDINGS:Cardiac silhouette size is within normal limits. There is elevation of left hemidiaphragm, unchanged left basilaratelectasis. Symmetric but decreased excursion of bilateralhemidiaphragm. There is no edema or pneumothorax No acute osseous abnormality. Postsurgical changes in the cervicalspine. IMPRESSION:1. Symmetric but decreased excursion of bilateral hemidiaphragm.2. Unchanged elevated left hemidiaphragm with left basilaratelectasis. Electronically signed by: ISAK 04/03/19 14:06 Normal MN-Ooxfeli-V [employer] [facility] 107 Work Phone: Vital Signs Date Time Vital Sign Value Performing Clinician Facility 07-09-2024 10:24-050 Body height 182.9 cm Mani Martinezk CLIENT SUPPORT ANALYST Work Phone: [facility] 07-09-2024 10:24-0500 Body mass index (BMI) [Ratio] 30.38 kg/m2 Mani Jimeneztrick CLIENT SUPPORT ANALYST Work Phone: [facility] 07-09-2024 10:24-0500 Body temperature 97.11 [degF] Mani Santoyo CLIENT SUPPORT ANALYST Work Phone: [facility] 07-09-2024 10:24-0500 Body weight 101.61 kg Mani Santoyo CLIENT SUPPORT ANALYST Work Phone: [facility] 07-09-2024 10:24-0500 Diastolic blood pressure 70 mm[Hg] Mani Santoyo CLIENT SUPPORT ANALYST Work Phone: [facility] 07-09-2024 10:24-0500 Heart rate 81 /min Mani Santoyo CLIENT SUPPORT ANALYST Work Phone: [facility] 07-09-2024 10:24-0500 Respiratory rate 16 /min Mani Santoyo CLIENT SUPPORT ANALYST Work Phone: [facility] 07-09-2024 10:24-0500 SaO2% (BldA) [Mass fraction] 98 % Mani Santoyo CLIENT SUPPORT ANALYST Work Phone: [facility] 07-09-2024 10:24-0500 Systolic blood pressure 110 mm[Hg] Mani Santoyo CLIENT SUPPORT ANALYST Work Phone: [facility] 06-06-2024 15:30-0400 Body mass index (BMI) [Ratio] 29.43 kg/m2 Mani Santoyo CLIENT SUPPORT ANALYST Work Phone: [facility] 06-06-2024 15:30-0400 Body temperature 97.39 [degF] Mani Santoyo CLIENT SUPPORT ANALYST Work Phone: [facility] 06-06-2024 15:30-0400 Body weight 98.43 kg Mani Santoyo CLIENT SUPPORT ANALYST Work Phone: [facility] 06-06-2024 15:30-0400 Diastolic blood pressure 78 mm[Hg] Mani Santoyo CLIENT SUPPORT ANALYST Work Phone: [facility] 06-06-2024 15:30-0400 Heart rate 73 /min Mani Santoyo CLIENT SUPPORT ANALYST Work Phone: [facility] 06-06-2024 15:30-0400 Respiratory rate 16 /min Mani Ayalapatrick CLIENT SUPPORT ANALYST Work Phone: [facility] 06-06-2024 15:30-0400 SaO2% (BldA) [Mass fraction] 96 % Mani Santoyo CLIENT SUPPORT ANALYST Work Phone: [facility] 06-06-2024 15:30-0400 Systolic blood pressure 122 mm[Hg] Mani Santoyo CLIENT SUPPORT ANALYST Work Phone: [facility] 05-03-2024 11:08-0400 Body height 182.9 cm Mani Santoyo CLIENT SUPPORT ANALYST Work Phone: [facility] 05-03-2024 11:08-0400 Body mass index (BMI) [Ratio] 28.89 kg/m2 Mani Santoyo CLIENT SUPPORT ANALYST Work Phone: [facility] 05-03-2024 11:08-0400 Body temperature 98.2 [degF] Mani Santoyo CLIENT SUPPORT ANALYST Work Phone: [facility] 05-03-2024 11:08-0400 Body weight 96.62 kg Mani Santoyo CLIENT SUPPORT ANALYST Work Phone: [facility] 05-03-2024 11:08-0400 Diastolic blood pressure 74 mm[Hg] Mani Santoyo CLIENT SUPPORT ANALYST Work Phone: [facility] Comment on above: 134/80 RT ARM [employer] 05-03-2024 11:08-0400 Heart rate 102 /min Mani Ayalapatrick CLIENT SUPPORT ANALYST Work Phone: [facility] Comment on above: 95% O2 05-03-2024 11:08-0400 Systolic blood pressure 164 mm[Hg] Mani Santoyo CLIENT SUPPORT ANALYST Work Phone: [facility] Comment on above: 134/80 RT [employer] 02-12-2021 14:10-0400 SaO2% (BldA) [Mass fraction] 95 % No Pcp Required [facility] 02-12-2021 14:00-0400 Body temperature 97.16 [degF] No Pcp Required [facility] 02-12-2021 14:00-0400 Diastolic blood pressure 83 mm[Hg] No Pcp Required [facility] 02-12-2021 14:00-0400 Heart rate 81 /min No Pcp Required [facility] 02-12-2021 14:00-0400 Respiratory rate 18 /min No Pcp Required [facility] 02-12-2021 14:00-0400 Systolic blood pressure 131 mm[Hg] No Pcp Required [facility] 02-12-2021 03:31-0400 Body height 182.8 cm No Pcp Required [facility] 02-12-2021 03:31-0400 Body weight 109.8 kg No Pcp Required [facility] 01-27-2021 11:12-0400 Body mass index (BMI) [Ratio] 33.64 kg/m2 Chuck Cook MD Work Phone: RV-Ucdf[address] Work Phone: 01-27-2021 11:12-0400 Body surface area Derived from formula 2.33 m2 Chuck Cook MD Work Phone: XO-Swzjzqt-[address] Work Phone: 01-27-2021 11:12-0400 Body temperature 96.1 [degF] Chuck Cook MD Work Phone: HJ-Rclrzru-Q[address] Work Phone: 01-27-2021 11:12-0400 Body weight 112.49 kg Chuck Cook MD Work Phone: UY-Dnpbqid-[address] Work Phone: 01-27-2021 11:12-0400 Diastolic blood pressure 85 mm[Hg] Chuck Cook MD Work Phone: FQ-Kriqjpj-[address] Work Phone: 01-27-2021 11:12-0400 Heart rate 77 /min Chuck Cook MD Work Phone: QH-Zqplicp-Xbz[address] Work Phone: 01-27-2021 11:12-0400 Systolic blood pressure 157 mm[Hg] Chuck Cook MD Work Phone: NY-Fsilnfp-[address] Work Phone: 04-03-2019 15:37-0400 BMI (Body Mass Index) 30.11 kg/m2 Chandan [place] SY-Diaonws-Gqclyic [address]99 Work Phone: 04-03-2019 15:37-0400 Body Temperature 97.9 [degF] Chandan [place] LT-Mwptngw-Prfm ell [address]99 Work Phone: 04-03-2019 15:37-0400 Body weight 100.7 kg Chandan [place] HF-Swcsjii-Wniua ll 2099 Work Phone: 04-03-2019 15:37-0400 BP Diastolic 74 mm[Hg] Chandan Travon ZE-Hqlabjh-Xdhsb ll 2099 Work Phone: 04-03-2019 15:37-0400 BP Systolic 121 mm[Hg] Chandan [place] SH-Cnkknas-Bowtr ll 2099 Work Phone: 04-03-2019 15:37-0400 BSA (Body Surface Area) 2.23 m2 Chandan [place] NN-Ykkkkbi-Baudbgi 2099 Work Phone: 04-03-2019 15:37-0400 Height 182.88 cm Chandan [place] ZY-Klxyavq-Xcldd ll 2099 Work Phone: 04-03-2019 15:37-0400 Pulse (Heart Rate) 58 /min Chandan Travon HR-Xwnodpu-Fk lwell 2099 Work Phone: Encounters Encounter Date Encounter Type Care Provider Facility Start: 08-09-2024 End: 08-16-2024 Orders Only Mani Santoyo CLIENT SUPPORT ANALYST Work Phone: [facility] Comment on above: Chronic allergic rhi nitis Rosacea, unspecified Start: 08-07-2024 End: 08-07-2024 Refill Lianet Talamantes MA [facility] Comment on above: Chronic allergic rhi nitis Start: 07-16-2024 End: 07-16-2024 Refill Mani Santoyo CLIENT SUPPORT ANALYST Work Phone: [facility] Comment on above: Chronic allergic rhi nitis Start: 07-11-2024 End: 07-11-2024 ambulatory [facility] Start: 07-09-2024 End: 07-09-2024 Bamboo flowsheet Mani Santoyo CLIENT SUPPORT ANALYST Work Phone: [facility] Start: 07-09-2024 End: 07-09-2024 Bamboo flowsheet Mani Santoyo CLIENT SUPPORT ANALYST Work Phone: [facility] Start: 07-09-2024 End: 07-09-2024 Office outpatient visit 10 minutes Mani Santoyo CLIENT SUPPORT ANALYST Work Phone: [facility] Comment on above: Class 1 obesity due to excess calories without serious comorbidity with body mass index (BMI) of 31.0 to 31.9 in adult (Primary Dx) Start: 07-09-2024 End: 07-09-2024 ambulatory MANI SANTOYO Not Available Start: 06-06-2024 End: 06-06-2024 Office outpatient visit 15 minutes Mani Santoyo CLIENT SUPPORT ANALYST Work Phone: [facility] Comment on above: Chronic obstructive pulmonary disease, unspecified COPD type (CMS/HCC) (Primary Dx); Paralyzed hemidiaphragm; Class 1 obesity due to excess calories without serious comorbidity with body mass index (BMI) of 31.0 to 31.9 in adult Start: 06-06-2024 End: 06-06-2024 ambulatory MANI SANTOYO Not Available Start: 05-31-2024 End: 05-31-2024 Subsequent hospital visit by physician [facility] Work Phone: [facility] Comment on above: Cervical vertebral f usion [M43.22] Start: 05-31-2024 End: 05-31-2024 Patient encounter procedure Juan Salazar MD Work Phone: [facility] Comment on above: Cervical vertebral f usion (Primary Dx); Spinal stenosis of cervical region Start: 05-21-2024 End: 05-21-2024 Orders Only Mani Jimeneztrick CLIENT SUPPORT ANALYST Work Phone: [facility] Comment on above: Class 1 obesity due to excess calories without serious comorbidity with body mass index (BMI) of 31.0 to 31.9 in adult (Primary Dx) Start: 05-15-2024 End: 05-15-2024 Refill Mani Jimeneztrick CLIENT SUPPORT ANALYST Work Phone: [facility] Start: 05-14-2024 End: 05-14-2024 ambulatory [facility] Start: 05-03-2024 End: 05-03-2024 Bamboo flowsheet Mani Santoyo CLIENT SUPPORT ANALYST Work Phone: [facility] Start: 05-03-2024 End: 05-03-2024 Bamboo flowsheet Mani Santoyo CLIENT SUPPORT ANALYST Work Phone: [facility] Start: 05-03-2024 End: 05-03-2024 Office outpatient visit 25 minutes Mani Jimeneztrick CLIENT SUPPORT ANALYST Work Phone: [facility] Comment on above: Chronic obstructive pulmonary disease, unspecified COPD type (CMS/HCC) (Primary Dx); Primary hypertension (CMS/HCC); Class 1 obesity due to excess calories without serious comorbidity with body mass index (BMI) of 31.0 to 31.9 in adult; Hyperlipidemia, unspecified hyperlipidemia type (CMS/HCC); Chronic seasonal allergic rhinitis; Primary hypogonadism in male Start: 05-03-2024 End: 05-03-2024 ambulatory MANI AYALAPATRICK Not Available Start: 04-19-2024 End: 04-24-2024 Chart abstracting None (Historical) Neurology Start: 01-31-2024 End: 01-31-2024 ambulatory COREAS FAWWAD Not Available Start: 12-29-2023 End: 12-29-2023 ambulatory COREAS FAWWAD Not Available Start: 11-23-2023 End: 11-23-2023 ambulatory COREAS FAWWAD Not Available Start: 10-05-2023 End: 10-05-2023 ambulatory JONATHAN H ITZKOWITZ Not Available Start: 09-26-2023 End: 09-26-2023 ambulatory JONATHAN H ITZKOWITZ Not Available Start: 08-20-2023 Patient encounter procedure Mani Jimeneztrick CLIENT SUPPORT ANALYST Work Phone: [facility] Start: 08-18-2023 End: 08-18-2023 ambulatory COREAS FAWWAD [...] related to original px No PCP None FT-[address] Work Phone: Start: 02-20-2021 Chart Update No PCP None MG-Surgery -[address] Work Phone: Start: 02-11-2021 End: 02-12-2021 Evaluation and management of inpatient Chuck Cook [facility] Lksd 55 Rm 5511 01 Start: 01-27-2021 Chart Update Chuck Cook MD Work Phone: LN-[address]pd[address] Work Phone: Start: 04-03-2019 Patient encounter procedure Chandan Cool KD-Qkvgidh-[address] Work Phone: Start: 01-12-2018 Patient encounter procedure Chandan Cool TZ-Pwohrqd-Fx[address] Work Phone: Start: 11-28-2017 Patient encounter procedure Chandan Cool TL-Zmqsrmf-X[address] Work Phone: Start: 11-28-2017 Patient encounter procedure Chandan Cool BY-Tnzjdcm-[address] Work Phone: Procedures Date Procedure Procedure Detail Performing Clinician Start: 05-31-2024 Radex spine cervical 4 or 5 views Juan Salazar MD Work Phone: Start: 11-01-2023 Colonoscopy Mani rm NP Work Phone: Start: 03-30-2019 Xray Chest 2 View PA + Lateral Chandan Cool Cholecystectomy Chandan Cool History of Gallbladd er Surgery Chandan Cool History of Knee Surgery Left Chandan Travon History of Neck Surgery Marion Matsonmo Tonsillectomy Chandan Cool Plan of Treatment Date Care Activity Detail Author Start: 2034 RSV Vaccine (1 - 1-d ose 75+ series) RSV Vaccine (1 - 1-dose 75+ series) [facility] Start: 11-01-2033 Screening for malign ant neoplasm of colon [facility] Start: 10-30-2024 End: 10-30-2024 Patient encounter procedure 10/30/2024 8:30 AM EST [facility] [address] [place] [id number] Mani Santoyo, GREGORY [address] [place] [address] [facility] Start: 09-11-2024 End: 09-11-2024 Patient encounter procedure 09/11/2024 10:20 AM EST Office Visit [facility] [address] [place] [address] Husam Muñoz MD [address] [place] [address] [facility] Start: 08-18-2024 Medicare Annual Wellness (AWV) Medicare Annual Wellness (AWV) [facility] Start: 08-16-2024 End: 08-16-2024 Patient encounter procedure 08/16/2024 8:30 AM EST Office Visit [facility] [address] [place] [address] Mani Santoyo NP [address] [place] [address] [facility] Start: 08-06-2024 End: 08-06-2024 Patient encounter procedure 08/06/2024 10:00 AM EST Office Visit [facility] [address] [place] [address] Mani Santoyo, GREGORY [address] [place] [address] [facility] Start: 07-26-2024 End: 07-26-2024 Patient encounter procedure 07/26/2024 10:30 AM EST Office Visit [facility] [address] [place] [address] Mani Santoyo, GREGORY [address] [place] [address] ANDI ROJO Start: 07-09-2024 End: 07-09-2024 Patient encounter procedure ANDI ROJO Comment on above: Arrived Start: 05-06-2024 Covid-19 Vaccine ( season) Covid-19 Vaccine () [facility] Start: 05-06-2024 Influenza vaccination Influenza Vacc ine (#1) [facility] Start: 05-03-2024 End: 05-03-2025 CBC W Auto Differential panel - Blood CBC and differential Lab Routine Primary hypertension (CMS/HCC) Class 1 obesity due to excess calories without serious comorbidity with body mass index (BMI) of 31.0 to 31.9 in adult Expected: 05/03/2024 (Approximate), Expires: 05/03/2025 [facility] Comment on above: Expected: 05/03/2024 (Approximate), Expires: 05/03/2025 Start: 05-03-2024 End: 05-03-2025 Comprehensive metabolic 2000 panel - Serum or Plasma Comprehensive metabolic panel Lab Routine Primary hypertension (CMS/HCC) Class 1 obesity due to excess calories without serious comorbidity with body mass index (BMI) of 31.0 to 31.9 in adult Expected: 05/03/2024 (Approximate), Expires: 05/03/2025 [facility] Comment on above: Expected: 05/03/2024 (Approximate), Expires: 05/03/2025 Start: 05-03-2024 End: 05-03-2025 Microalbumin/Creatinine panel in random Urine Microalbumin / creatinine urine ratio Lab Routine Primary hypertension (CMS/HCC) Expected: 05/03/2024 (Approximate), Expires: 05/03/2025 [facility] Work Phone: Comment on above: Expected: 05/03/2024 (Approximate), Expires: 05/03/2025 Start: 05-03-2024 End: 05-03-2024 Patient encounter procedure 05/03/2024 11:00 AM EDT Office Visit [facility] [address] [place] [phone] Mani Santoyo, GREGORY [address] [facility] [address] [place] [address] Chronic obstructive pulmonary disease, unspecified COPD type (CMS/HCC) (Primary Dx); Primary hypertension (CMS/HCC); Class 1 obesity due to excess calories without serious comorbidity with body mass index (BMI) of 31.0 to 31.9 in adult; Hyperlipidemia, unspecified hyperlipidemia type (CMS/HCC) [facility] Comment on above: Chronic obstructive pulmonary disease, unspecified COPD type (CMS/HCC) (Primary Dx); Primary hypertension (CMS/HCC); Class 1 obesity due to excess calories without serious comorbidity with body mass index (BMI) of 31.0 to 31.9 in adult; Hyperlipidemia, unspecified hyperlipidemia type (CMS/HCC) Start: 2024 Advance Directive Discussion Advance Directive Discussion [facility] Start: 2024 Pneumococcal Vaccine : 65+ (1 of 1 - PCV) Pneumococcal Vaccine: 65+ (1 of 1 - PCV) [facility] Start: 02-13-2024 Diabetes Screening Diabetes Screenin g [facility] Start: 02-11-2021 End: 02-12-2022 Ondansetron Injectable 4 mg IntraVenous Push Every 6 Hours PRN ; (ZOFRAN)DOSE = 4 mg IntraVenous Push Every 4 Hours, PRN Nausea & Vomiting Start: 11-Feb-2021 End: 11-Feb-2022 Ordered: 11-Feb-2021 Saw Saleem [facility] Start: 2014 Prostate specific antigen measurement Prostate Cancer Screening Discussion [facility] Start: 2009 Shingrix Vaccine (1 of 2) Shingrix Vaccine (1 of 2) [facility] Start: 2004 Screening for malign ant neoplasm of colon [facility] Start: 1994 Lipid panel Lipid Screening [facility] Start: 1978 Urine microalbumin profile DTaP,Tdap,Td Vaccine (1 - Tdap) [facility] Start: 1977 Anxiety Screening Anxiety Screening [facility] Start: 1977 Depression Screening Depression Scre ening [facility] Start: 1977 Hepatitis C screening Hepatitis C Ri jasmine [facility] Start: 1977 HIV screening HIV Screening [facility] Start: 1965 Pneumococcal Vaccine : 65+ Years (1 of 2 - PCV) Pneumococcal Vaccine: 65+ Years (1 of 2 - PCV) [facility] Start: 1959 Screening for malign ant neoplasm of colon [facility] End: 06-30-2025 MR Cervical spine WO contrast MRI CERVICAL SPINE WO IVCON Radiology Routine Spinal stenosis of cervical region 1 Occurrences starting 05/31/2024 until 06/30/2025 [facility] Comment on above: 1 Occurrences starti ng 05/31/2024 until 06/30/2025 End: 06-30-2025 XR CERV OTHER 4V AP/LAT/FLX/EXT XR CERV OTHER 4V AP/LAT/FLX/EXT Radiology Routine Cervical vertebral fusion 1 Occurrences starting 05/31/2024 until 06/30/2025 [facility] Work Phone: Comment on above: 1 Occurrences starti ng 05/31/2024 until 06/30/2025 XR CERV OTHER 4V AP/LAT/FLX/EXT XR CERV OTHER 4V AP/LAT/FLX/EXT Radiology Routine Cervical vertebral fusion 05/31/2024 2:54 PM EDT [facility] End: 05-24-2025 XR Lumbar spine Views W flexion and W extension XR LUMBAR MOTION 4V AP/LAT/ FLEX/EXT Radiology Routine Spinal stenosis of lumbar region with neurogenic claudication 1 Occurrences starting 04/24/2024 until 05/24/2025 [facility] Work Phone: Comment on above: 1 Occurrences starti ng 04/24/2024 until 05/24/2025 Payers Date Payer Category Payer Medicare [employer] [place] HMO [id number] 2022-Present [phone] [address] ANIRUDH ROTHMAN [id number] O [id number] 2022 Medicare (Managed Care) [employer] [id number] 2020 Unknown [id number] 2018 Unknown 1959 Medicare [id number] 1959 Unknown [id number] 1959 Unknown [id number] 1959 Unknown [id number] 2.16.840.1.214673.3.579.2. 593 1959 Unknown [id number] 2.16.840.1.522845.3.579.2. 593 1959 Unknown [id number] 2.16.840.1.808499.3.579.2. 593 1959 Unknown [id number] 2.16.840.1.246287.3.579.2. 593 1959 Unknown [id number] 2.16.840.1.887283.3.579.2. 593 1959 Unknown [id number] 2.16.840.1.612566.3.579.2. 593 1959 Unknown [id number] 2.16.840.1.985747.3.579.2. 593 1959 Unknown [id number] 2.16.840.1.726458.3.579.2. 593 1959 Unknown [id number] 2.16.840.1.340903.3.579.2. 1259 1959 Unknown [id number] 2.16.840.1.522553.3.579.2. 9 1959 Unknown [id number] 2.16.840.1.400025.3.579.2. 1258 1959 Unknown [id number] 2.16.840.1.773609.3.579.2. 1258 1959 Unknown [id number] 2.16.840.1.386562.3.579.2. 1258 1959 Unknown [id number] 2.16.840.1.693775.3.579.2. 1258 1959 Unknown [id number] 2.16.840.1.468284.3.579.2. 1258 1959 Unknown [id number] 2.16.840.1.748388.3.579.2. 1258 1959 Unknown [id number] 2.16.840.1.352963.3.579.2. 1259 Social History Date Type Detail Facility Start: 08-18-2023 End: 05-31-2024 Former smoker Former smoker [facility] Tobacco smoking consumption unknown [facility] Start: 1960 Sex assigned at Not on file [facility] Start: 08-18-2023 End: 05-31-2024 Gender identity Not on file [facility] National Score (1-100), lower number is lower risk 74 [facility] Start: 12-29-2023 End: 05-03-2024 Tobacco smoking status [facility] Ex-smoker [facility] History of tobacco use Current smoker [facility] History of tobacco use Cigarette Smoker [facility] History of tobacco use Passive smoker [facility] Start: 12-29-2023 End: 05-03-2024 Tobacco use and exposure Smokeless tobacco non-user [facility] Start: 01-31-2024 End: 05-03-2024 Alcoholic beverage intake Lifetime non-drinker (finding) [facility] Within the last year , have you been afraid of your partner or ex-partner? No [facility] Are you now , , , , never or living with a partner? [facility] How often to you hav e a drink containing alcohol? Never [facility] (I/We) worried whether (my/our) food would run out before (I/we) got money to buy more. Never true [facility] Do you feel stress - tense, restless, nervous, or anxious, or unable to sleep at night because your mind is troubled all the time - these days [OSQ] Not at all [facility] NEGATED: Highlighted row - - [address] Work Phone: Functional Status Date Assessment Result Facility Functional observable [facility] NEGATED: Highlighted row Functional performance Functional status health issues are not documented Disease [address] Work Phone: Mental Status Date Assessment Result Facility 02-12-2021 Cognitive functi ons [id number] [facility] NEGATED: Highlighted row Cognitive function [Interpretation] Cognitive status health issues are not documented Disease [address] Work Phone: Clinical Notes 02-11-2021 to 08-15-2024 Telephone Encounter - Lianet Talamantes MA - 08/15/2024 3:40 PM ESTTelephone Encounter - Lianet Talamantes MA - 08/15/2024 3:40 PM ESTTelephone Encounter - Florencia Oconnell - 08/09/2024 10:48 AM EST<item> Note Date & Type Note Facility 08-15-2024 Telephone encounter Note IZZY:07/09/2024 NOV:10/30/2024 [facility] 08-15-2024 Miscellaneous Notes IZZY:07/09/2024 NOV:10/30/2024 Patient stopped in and stated he is suppose to take 2 pills a day. 1 in morning and 1 at night. He only got a 30 supply and is about out. He would like another script. An documented in this encounter [facility] 08-09-2024 Telephone encounter Note Patient stopped in and stated he is suppose to take 2 pills a day. 1 in morning and 1 at night. He only got a 30 supply and is about out. He would like another script. An [facility] 08-07-2024 Telephone encounter Note IZZY:07/09/2024 NOV:08/16/2024 [facility] 08-07-2024 Miscellaneous Notes IZZY:07/09/2024 NOV:08/16/2024 documented in this encounter [facility] 07-11-2024 Note [facility] Note Reason for cardiology visit: Follow-up on dyspnea on exertion Chief Complaint: Dyspnea on exertion HPI: 07/11/2024 Patient is here today for follow-up visit. His blood pressure has been well-controlled on atenolol. He feels better. He continues to have dyspnea on exertion. He does not have appointment with pulmonary till August. Denies chest pain at rest or with exertion. Denies orthopnea or paroxysmal nocturnal dyspnea or dizziness or palpitations or legs edema or leg discomfort on exertion. 05/14/2024 Rigo Jefferson is a 64 y.o. male [...] history of COPD (chronic obstructive pulmonary disease) ([facility]), Hyperlipidemia, Hypertension, Pulmonary emphysema (CMS/HCC), and [...] no known allergies. Medications Current Outpatient Medications: atenolol (Tenormin) 25 mg tablet, Take 1 tablet (25 mg) by mouth once daily as directed., Disp: 90 tablet, Rfl: 3 atorvastatin (Lipitor) 20 mg tablet, Take 20 mg by mouth at bedtime., Disp: , Rfl: cetirizine (ZyrTEC) 10 mg tablet, Take 10 mg by mouth in the morning., Disp: , Rfl: clarithromycin (Biaxin) 250 mg [...] route for 30 days., Disp: , Rfl: phentermine (Adipex-P) 37.5 mg tablet, Take 37.5 mg by mouth before breakfast., Disp: , Rfl: testosterone cypionate (Depo-Testosterone) 200 mg/mL injection, Inject 100 mg into the shoulder, thigh, or buttocks every 28 (twenty-eight) days., Disp: , Rfl: Last Recorded Vitals Visit Vitals BP 120/73 Pulse 77 Wt 102 kg (224 lb) SpO2 97% BMI 30.38 kg/m??? Smoking Status Former BSA 2.28 m??? Physical Examination: GENERAL: alert and oriented x3, well devel (more content not included)... [facility] 07-09-2024 History of Present illness Narrative Associated Problem(s): Class 1 obesity due to excess calories without serious comorbidity with body mass index (BMI) of 31.0 to 31.9 in adult Pt meets qualifications of OAC 4731-07-09 for weight loss. BMI>30 or >27 with comorbid conditions. Blood pressure WNL. Notify office with any symptoms of chest pain, dyspnea, heart palpitations, or any anxiety symptoms. F/U in 4 weeks to document weight loss. Increase physical activity as tolerated, and lower caloric intake to 1600 calories daily if no contraindications Has gained weight since last OV. Discussed this with patient. Will continue Phentermine this month but if he does not reach 5% goal within next month will have to stop TX. Pt verbalized understanding. Images from the original note were not included. Subjective Patient ID: Rigo Jefferson is a 64 y.o. male who presents for Weight Check. HPI Started Adipex on: 05/21 Starting Weight: 213 Current Weight: 224 5% is: 10lbs Goal Weight: 180-190 Diet: Eats tuna, salads, 2-3 protein shakes per day. 60mg of protein per shake. Low sugar shakes. Water: 1 gallon per day Exercise: Has not been as mobilized recently due to back pain. Has been walking. Has gained weight since last OV. Discussed this with patient. Will continue Phentermine this month but if he does not reach 5% goal within next month will have to stop TX. Pt verbalized understanding. Review of Systems Constitutional: Negative for activity change, appetite change, chills, diaphoresis, fatigue, fever and unexpected weight change. HENT: Negative for congestion, ear pain, rhinorrhea, sinus pressure, sinus pain, sneezing, sore throat, trouble swallowing and voice change. Eyes: Negative for visual disturbance. Respiratory: Negative for cough, chest tightness, shortness of breath and wheezing. Cardiovascular: Negative for chest pain, palpitations and leg swelling. Gastrointestinal: Negative for abdominal distention, abdominal pain, blood in stool, constipation, diarrhea and vomiting. Genitourinary: Negative for decreased urine volume, dysuria, flank pain, frequency, hematuria and urgency. Musculoskeletal: Positive for back pain and myalgias. Negative for arthralgias, gait problem and joint swelling. Skin: Negative for rash. Neurological: Negative for dizziness, tremors, syncope, weakness, light-headedness and headaches. Psychiatric/Behavioral: Negative for decreased concentration and suicidal ideas. The patient is not nervous/anxious. Hematological: Does not bruise/bleed easily. Endocrine: Negative for cold intolerance, heat intolerance, polydipsia, polyphagia and polyuria. Objective Physical Exam Vitals reviewed. Constitutional: Appearance: Normal appearance. HENT: Head: Normocephalic and atraumatic. Right Ear: Tympanic membrane normal. Left Ear: Tympanic membrane normal. Nose: Nose normal. Mouth/Throat: Mouth: Mucous membranes are moist. Pharynx: Oropharynx is clear. Eyes: Pupils: Pupils are equal, round, and reactive to light. Cardiovascular: Rate and Rhythm: Normal rate and regular rhythm. Pulses: Normal pulses. Heart sounds: Normal heart sounds. Pulmonary: Effort: Pulmonary effort is normal. Breath sounds: Normal breath sounds. Abdominal: General: Abdomen is flat. Bowel sounds are normal. Palpations: Abdomen is soft. Musculoskeletal: General: Normal range of motion. Cervical back: Normal range of motion. Skin: General: Skin is warm and dry. Capillary Refill: Capillary refill takes less than 2 seconds. Neurological: General: No focal deficit present. Mental Status: He is alert and oriented to person, place, and time. Psychiatric: Mood and Affect: Mood normal. Behavior: Behavior normal. Assessment/Plan Problem List Items Addressed This Visit Class 1 obesity due to excess calories without serious comorbidity with body mass index (BMI) of 31.0 to 31.9 in adult - Primary Pt meets qualifications of [facility] 4731-07-09 for weight loss. BMI>30 or >27 with comorbid conditions. Blood pressure WNL. Notify office with any symptoms of chest pain, dyspnea, heart palpitations, or any anxiety symptoms. F/U in 4 weeks to document weight loss. Increase physical activity as tolerated, and lower caloric intake to 1600 calories daily if no contraindications Relevant Medications phentermine (Adipex-P) 37.5 MG tablet documented in this encounter [facility] 06-06-2024 History of Present illness Narrative Images from the original note were not included. Subjective Patient ID: Rigo Jefferson is a 64 y.o. male who presents for No chief complaint on file.. HPI Adipex: Starting weight: 213 Weight today: 217 Goal weight: 180-190 5% is = 10 pounds Denies: chest pain Dizziness Elevated BP readings Shortness of breath at rest Pt meets qualifications of [facility] 4731-07-09 for weight loss. BMI>30 or >27 with comorbid conditions. Blood pressure WNL. Notify office with any symptoms of chest pain, dyspnea, heart palpitations, or any anxiety symptoms. F/U in 4 weeks to document weight loss. Increase physical activity as tolerated, and lower caloric intake to 1600 calories daily if no contraindications Review of Systems Constitutional: Negative for activity change, appetite change, chills, diaphoresis, fatigue, fever and unexpected weight change. HENT: Negative for congestion, ear pain, rhinorrhea, sinus pressure, sinus pain, sneezing, sore throat, trouble swallowing and voice change. Eyes: Negative for visual disturbance. Respiratory: Negative for cough, chest tightness, shortness of breath and wheezing. Cardiovascular: Negative for chest pain, palpitations and leg swelling. Gastrointestinal: Negative for abdominal distention, abdominal pain, blood in stool, constipation, diarrhea and vomiting. Genitourinary: Negative for decreased urine volume, dysuria, flank pain, frequency, hematuria and urgency. Musculoskeletal: Negative for arthralgias, gait problem, joint swelling and myalgias. Skin: Negative for rash. Neurological: Negative for dizziness, tremors, syncope, weakness, light-headedness and headaches. Psychiatric/Behavioral: Negative for decreased concentration and suicidal ideas. The patient is not nervous/anxious. Hematological: Does not bruise/bleed easily. Endocrine: Negative for cold intolerance, heat intolerance, polydipsia, polyphagia and polyuria. Objective Physical Exam Vitals reviewed. Constitutional: Appearance: Normal appearance. HENT: Head: Normocephalic and atraumatic. Right Ear: Tympanic membrane normal. Left Ear: Tympanic membrane normal. Nose: Nose normal. Mouth/Throat: Mouth: Mucous membranes are moist. Pharynx: Oropharynx is clear. Eyes: Pupils: Pupils are equal, round, and reactive to light. Cardiovascular: Rate and Rhythm: Normal rate and regular rhythm. Pulses: Normal pulses. Heart sounds: Normal heart sounds. Pulmonary: Effort: Pulmonary effort is normal. Breath sounds: Normal breath sounds. Abdominal: General: Abdomen is flat. Bowel sounds are normal. Palpations: Abdomen is soft. Musculoskeletal: General: Normal range of motion. Cervical back: Normal range of motion. Skin: General: Skin is warm and dry. Capillary Refill: Capillary refill takes less than 2 seconds. Neurological: General: No focal deficit present. Mental Status: He is alert and oriented to person, place, and time. Psychiatric: Mood and Affect: Mood normal. Behavior: Behavior normal. Assessment/Plan Problem List Items Addressed This Visit Chronic obstructive lung disease (CMS/HCC) - Primary Relevant Orders Ambulatory referral to Pulmonology Class 1 obesity due to excess calories without serious comorbidity with body mass index (BMI) of 31.0 to 31.9 in adult Pt meets qualifications of OAC 4731-07-09 for weight loss. BMI>30 or >27 with comorbid conditions. Blood pressure WNL. Notify office with any symptoms of chest pain, dyspnea, heart palpitations, or any anxiety symptoms. F/U in 4 weeks to document weight loss. Increase physical activity as tolerated, and lower caloric intake to 1600 calories daily if no contraindications Relevant Medications phentermine 37.5 MG capsule (Start on 06/21/2024) Paralyzed hemidiaphragm Relevant Orders Ambulatory referral to Pulmonology Associated Problem(s): Class 1 obesity due to excess calories without serious comorbidity with body mass index (BMI) of 31.0 to 31.9 in adult Pt meets qualifications of OAC 4731-07-09 for weight loss. BMI>30 or >27 with comorbid conditions. Blood pressure WNL. Notify office with any symptoms of chest pain, dyspnea, heart palpitations, or any anxiety symptoms. F/U in 4 weeks to document weight loss. Increase physical activity as tolerated, and lower caloric intake to 1600 calories daily if no contraindications documented in this encounter [facility] 06-06-2024 Instructions Mani Santoyo NP - 06/06/2024 3:30 PM EDT Notify office with any symptoms of chest pain, dyspnea, heart palpitations, or any anxiety symptoms. F/U in 4 weeks to document weight loss. Increase physical activity as tolerated, and lower caloric intake to 1600 calories daily if no contraindications Referral sent to Dr. Mosley- pulmonology; They will call you! If you don't hear from them in 2 weeks, call my office! 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 PCP: No primary care provider on file. 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 Total face to face time was 45 minutes. SIGNATURE: Juan Salazar MD PATIENT NAME: Rigo Jefferson DATE: May 31, 2024 TIME: 1:44 PM PAGER: documented in this encounter [facility] 05-21-2024 History of Present illness Narrative Associated Problem(s): Class 1 obesity due to excess calories without serious comorbidity with body mass index (BMI) of 31.0 to 31.9 in adult Discussed with patient their BMI (actual, verses recommended). We have also discussed lifestyle modifications: attempts to perform physical activity as chronic conditions allow, also to monitor dietary intake: increasing protein/fruits/veggies and lowering carb intake (unless contraindicated). Limit sodas, juices, and sugary drinks. Also discussed oral medications that can be utilized for weight loss, as well as surgical options for weight loss. Pt meets qualifications of OAC 4731-07-09 for weight loss. BMI>30 or >27 with comorbid conditions. Blood pressure WNL. Notify office with any symptoms of chest pain, dyspnea, heart palpitations, or any anxiety symptoms. F/U in 4 weeks to document weight loss. Increase physical activity as tolerated, and lower caloric intake to 1600 calories daily if no contraindications OARRS reviewed. Discussed with patient their BMI (actual, verses recommended). We have also discussed lifestyle modifications: attempts to perform physical activity as chronic conditions allow, also to monitor dietary intake: increasing protein/fruits/veggies and lowering carb intake (unless contraindicated). Limit sodas, juices, and sugary drinks. Also discussed oral medications that can be utilized for weight loss, as well as surgical options for weight loss. Pt meets qualifications of [facility] 4731-07-09 for weight loss. BMI>30 or >27 with comorbid conditions. Blood pressure WNL. Notify office with any symptoms of chest pain, dyspnea, heart palpitations, or any anxiety symptoms. F/U in 4 weeks to document weight loss. Increase physical activity as tolerated, and lower caloric intake to 1600 calories daily if no contraindications Per Cardiology, pt is cleared for Phentermine use. Starting weight 213 documented in this encounter [facility] 05-14-2024 Note [place] [facility] Note Reason for cardiology [...] history of COPD (chronic obstructive pulmonary disease) ([facility]), Hyperlipidemia, Hypertension, Pulmonary emphysema (CMS/HCC), and [...] hemoglobin 16, hematocrit (more content not included)... [facility] 05-03-2024 History of Present illness Narrative Associated Problem(s): Chronic seasonal allergic rhinitis Cetirizine D and Flonase daily. Feels symptoms are well managed. Continue current regimen. Associated Problem(s): Primary hypogonadism in male Follows Endocrinology for testosterone replacement therapy. Associated Problem(s): Chronic pain syndrome R/T severe lumbar stenosis Pain management referred to [facility] for further management. Still following with Pain Management- Dr. Stacy. Had epidural last Tuesday- feels pain is well managed since. Taking Oxycodone Q6H PRN- Pain Management prescribes. Associated Problem(s): Chronic obstructive lung disease (CMS/HCC) Does not follow pulmonolgy; Has not had any PFT's recently. Takes Singulair. No inhalers at this time. States inhalers were too expensive. Feels his symptoms are well managed. Except in excess humidity and warmer weather. Images from the original note were not included. Subjective Patient ID: Rigo Jefferson is a 64 y.o. male who presents for Follow-up. HPI Was having Low BP's- referral sent to Dr. Negrete- First appointment on 05/14; HTN: Currently taking no medications Checks BP at home; Averages are 120's/130's; Denies orthostatic changes, dizziness, cough, shortness of breath, swelling in extremities. Continue current regimen. HLD: Currently taking Atorvastatin 20mg Denies myalgias. Continue current regimen Component Ref Range & Units 6 mo ago (11/05/23) 6 mo ago (11/05/23) 6 mo ago (11/05/23) TRIGLYCERIDES <=150 mg/dL 61 141 R 27.8 R CHOLESTEROL <=200 mg/dL 177 4.4 R 0.4 R HDL CHOLESTEROL 40 - 60 mg/dL 56 12.6 R 5.0 R Comment: > or =60 mg/dl - LOW CARDIOVASCULAR RISK <40 mg/dl - HIGH CARDIOVASCULAR RISK LDL CHOLESTEROL CALCULATED mg/dL 108.8 111 High R 2.4 R Comment: <100 mg/dl OPTIMAL 100-129 mg/dl NEAR OR ABOVE OPTIMAL 130-159 mg/dl BORDERLINE HIGH 160-189 mg/dl HIGH >190 mg/dl VERY HIGH VLDL CHOLESTEROL mg/dL 12.2 0.3 R 0.8 R CHOL HDL RATIO 3.2 15 R 0.03 R Comment: 3.3 - 4.4 LOW RISK 4.4 - 7.1 AVERAGE RISK 7.1 - 11.0 MODERATE RISK >11.0 HIGH RISK ALANINE AMINOTRANSFERASE 21 R ALKALINE PHOSPHATASE 101 R TOTAL PROTEIN 7.1 R ALBUMIN LEVEL 3.5 R ALBUMIN GLOBULIN RATIO 1.0 Resulting Agency [facility] TB TB COPD: Does not follow pulmonolgy; Has not had any PFT's recently. No medication at this time. States inhalers were too expensive. Feels his symptoms are well managed. Except in excess humidity and warmer weather. Chronic Lumbar Stenosis: Pain management referred to [facility] Still following with Pain Management- Dr. Stacy. Had epidural last Tuesday- feels pain is well managed since. Review of Systems Constitutional: Negative for activity change, appetite change, chills, diaphoresis, fatigue, fever and unexpected weight change. HENT: Negative for congestion, ear pain, rhinorrhea, sinus pressure, sinus pain, sneezing, sore throat, trouble swallowing and voice change. Eyes: Negative for visual disturbance. Respiratory: Positive for shortness of breath. Negative for cough, chest tightness and wheezing. Cardiovascular: Negative for chest pain, palpitations and leg swelling. Gastrointestinal: Negative for abdominal distention, abdominal pain, blood in stool, constipation, diarrhea and vomiting. Genitourinary: Negative for decreased urine volume, dysuria, flank pain, frequency, hematuria and urgency. Musculoskeletal: Positive for arthralgias, back pain, neck pain and neck stiffness. Negative for gait problem, joint swelling and myalgias. Skin: Negative for rash. Neurological: Negative for dizziness, tremors, syncope, weakness, light-headedness and headaches. Psychiatric/Behavioral: Negative for decreased concentration and suicidal ideas. The patient is not nervous/anxious. Hematological: Does not bruise/bleed easily. Endocrine: Negative for cold intolerance, heat intolerance, polydipsia, polyphagia and polyuria. Objective Physical Exam Vitals reviewed. Constitutional: Appearance: Normal appearance. HENT: Head: Normocephalic and atraumatic. Right Ear: Tympanic membrane normal. Left Ear: Tympanic membrane normal. Nose: Nose normal. Mouth/Throat: Mouth: Mucous membranes are moist. Pharynx: Oropharynx is clear. Eyes: Pupils: Pupils are equal, round, and reactive to light. Cardiovascular: Rate and Rhythm: Normal rate and regular rhythm. Pulses: Normal pulses. Heart sounds: Normal heart sounds. Pulmonary: Effort: Pulmonary effort is normal. Breath sounds: Normal breath sounds. Abdominal: General: Abdomen is flat. Bowel sounds are normal. Palpations: Abdomen is soft. Musculoskeletal: Cervical back: Normal range of motion. Lumbar back: Decreased range of motion. Skin: General: Skin is warm and dry. Capillary Refill: Capillary refill takes less than 2 seconds. Neurological: General: No focal deficit present. Mental Status: He is alert and oriented to person, place, and time. Psychiatric: Mood and Affect: Mood normal. Behavior: Behavior normal. Assessment/Plan Problem List Items Addressed This Visit Chronic obstructive lung disease (CMS/HCC) - Primary Does not follow pulmonolgy; Has not had any PFT's recently. Takes Singulair. No inhalers at this time. States inhalers were too expensive. Feels his symptoms are well managed. Except in excess humidity and warmer weather. Hyperlipidemia (CMS/HCC) Currently taking Atorvastatin 20mg Denies myalgias. Most recent Lipid Panel WNL. Continue current regimen; Hypertensive disorder (CMS/HCC) Currently taking no medications; All were stopped by previous provider in February d/t pt having excessively low BP readings. Referral sent to Dr. Negron- Cardiology. Pt first appt on 05/14/2024; Will continue to keep off of all medications until advised by cardiology Checks BP at home; Averages are 120's/130's; Denies orthostatic changes, dizziness, cough, shortness of breath, swelling in extremities. Relevant Orders Microalbumin / creatinine urine ratio Comprehensive metabolic panel CBC and differential Chronic seasonal allergic rhinitis Cetirizine D and Flonase daily. Feels symptoms are well managed. Continue current regimen. Primary hypogonadism in male Follows Endocrinology for testosterone replacement therapy. Class 1 obesity due to excess calories without serious comorbidity with body mass index (BMI) of 31.0 to 31.9 in adult Discussed with patient their BMI (actual, verses recommended). We have also discussed lifestyle modifications: attempts to perform physical activity as chronic conditions allow, also to monitor dietary intake: increasing protein/fruits/veggies and lowering carb intake (unless contraindicated). Limit sodas, juices, and sugary drinks. Also discussed oral medications that can be utilized for weight loss- pt interested in re-starting Phentermine for weight loss; I am agreeable to restarting if Cardiology approves. Will discuss again at next OV. Relevant Orders Comprehensive metabolic panel CBC and differential Associated Problem(s): Hypertensive disorder (CMS/HCC) Currently taking no medications; All were stopped by previous provider in February d/ pt having excessively low BP readings. Referral sent to Dr. Negron- Cardiology. Pt first appt on 05/14/2024; Will continue to keep off of all medications until advised by cardiology Checks BP at home; Averages are 120's/130's; Denies orthostatic changes, dizziness, cough, shortness of breath, swelling in extremities. Associated Problem(s): Hyperlipidemia (CMS/HCC) Currently taking Atorvastatin 20mg Denies myalgias. Most recent Lipid Panel WNL. Continue current regimen; Associated Problem(s): Class 1 obesity due to excess calories without serious comorbidity with body mass index (BMI) of 31.0 to 31.9 in adult Discussed with patient their BMI (actual, verses recommended). We have also discussed lifestyle modifications: attempts to perform physical activity as chronic conditions allow, also to monitor dietary intake: increasing protein/fruits/veggies and lowering carb intake (unless contraindicated). Limit sodas, juices, and sugary drinks. Also discussed oral medications that can be utilized for weight loss- pt interested in re-starting Phentermine for weight loss; I am agreeable to restarting if Cardiology approves. Will discuss again at next OV. documented in this encounter [facility] 05-03-2024 Instructions Mani Santoyo NP - 05/03/2024 11:00 AM EDT Have lab work completed. Keep all follow up appointments. Call if you need anything! documented in this encounter [facility] 04-24-2024 Note HNO ID: [id number] Author: MICHELLE FLORENTINO APRN.CNP Service: ? Author Type: Nurse Practitioner Type: Progress Notes Filed: 04/24/2024 16:54 Note Text: Per Triage: Rigo Jefferson is a 64 year old male. that presents with symptoms of low back pain that radiates down the left leg. Previous spine surgery: Yes in [address] Sales. 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 [facility] 04-24-2024 History of Present illness Narrative Per Triage: Rigo Jefferson is a 64 year old male. that presents with symptoms of low back pain that radiates down the left leg. Previous spine surgery: Yes in [address] Sales. 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 Patient name: Rigo Jefferson Are you being referred by a Center for Sp[facility] Health Provider or Pain Management Provider at [facility]? No If answer is YES please schedule [...] facility where the MRI/CT/myelogram was completed: [facility] Address: [address] [place] [address] MRI/CT/myelogram viewable in Epic: No If not, please provide [phone] to fax in imaging reports for review. [...] and/or physical therapy was completed Injections [facility] Address: [address] [place] [address] Have you tried any other kinds of [...] recall Additional Comments documented in this encounter [facility] 04-19-2024 Note HNO ID: [id number] Author: ?, ?, ? Service: ? Author Type: ? Type: Progress Notes Filed: 04/24/2024 16:54 Note Text: Patient name: Rigo Jefferson Are you being referred by a [place] for Spine Health Provider or Pain Management Provider at [facility]? No If answer is YES please schedule [...] facility where the MRI/CT/myelogram was completed: [facility] Address: [address] [place] [address] MRI/CT/myelogram viewable in Epic: No If not, please provide [phone] to fax in imaging reports for review. [...] and/or physical therapy was completed Injections [facility] Address: [address] [place] [address] Have you tried any other kinds of [...] of where the surgery was completed: 2001 [facility] or Cannot recall Additional Comments [facility] 12-09-2022 Note CONSULTATION PROCEDURE DATE: 12/09/2022 PROCEDURE: [...] our patients to inform us about any [id number] medications or herbal remedies/nutritional supplements/alternative remedies. 2. [...] options with their primary care provider. [facility] 11-25-2022 Note CONSULTATION CONSULTATION DATE: 11/25/2022 TO: [...] of his shoulders, bilaterally, without contrast. [facility] 09-03-2022 Note CONSULTATION CONSULTATION DATE: 09/03/2022 HISTORY [...] three months' time, unless otherwise indicated. [facility] 06-01-2022 Note CONSULTATION CONSULTATION DATE: 06/01/2022 CHIEF [...] three months. CC: Shaikh Helena M.D. [facility] 05-18-2022 Note CONSULTATION CONSULTATION DATE: 05/18/2022 HISTORY [...] like to proceed. CC: Shaikh Helena M.D. [facility] 05-18-2022 Note CONSULTATION PROCEDURE DATE: 05/18/2022 PREOPERATIVE [...] be followed up in the office. [facility] 04-29-2022 Note CONSULTATION CONSULTATION DATE: 04/29/2022 HISTORY [...] for his injections with Dr. Duncan. [facility] 01-27-2022 Note CONSULTATION CONSULTATION DATE: 01/27/2022 HISTORY [...] in three month's time, unless otherwise indicated. [facility] Signed and Approved by: RAVINDER ANDERSEN . 02/04/2022 16:12:00 [facility] 02-12-2021 Note Send Summary: Discharge Summary Providers: Provider RoleProvider Name ReferringOndersChuck PrimaryRequired, No Pcp AttendingOndersChuck Note Recipients: Chuck Cook MD Discharge: Summary: Admission Date: .11-Feb-2021 10:51:00 Discharge Date: 12-Feb-2021 Attending Physician at Discharge: Chuck Cook Admission Reason: diaphragm pacer removal, hemidiaphragm plication Final Discharge Diagnoses: Hemidiaphragm paralysis Procedures: Date: 11-Feb-2021 18:16:00 Procedure Name: 1. laparoscopic L diaphragm plication 2. removal of bilateral diaphragm pacing wires 3. L pigtail chest tube placement Condition at Discharge: Satisfactory Disposition at Discharge: .Home Vital Signs: T PRBPSpO2 [id number]/8395% Date/Time02/12 12: 12: 12: 12: 12:10 Range(35.4C - 36.4C ) (77 - 99 ) (17 - 18 ) (127 - 147 )/ (83 - 91 ) (92% - 96% ) As of 12-Feb-2021 12:10:00, patient is on 2 L/min of oxygen Date: Weight/Scale Type:Height: 12-Feb-2021 01:11819.8 kg / xnskzwig670.8 cm Hospital Course: 60 yo male with [...] with outpatient follow-up with PCP and Dr. Cook in 2 weeks. Patient understands and is [...] 1 week Follow-Up Appointment 02: Physician/Dept/Service: Dr. Cook - surgery Reason for Referral: hospital follow-up / diaphragm pacer removal, hemidiaphragm plication Call to Schedule in: 2 weeks Location: [address] [place] [address] Discharge Medications: Home Medication clarithromycin 250 mg [...] documented in the note. Electronic Signatures: Jesusita Stevenson (Resident)) (Signed 12-Feb-2021 17:35) Authored: Send Summary, Summary Content, Ongoing Care, Note Completion Chuck Cook) (Signed 13-Feb-2021 10:13) Authored: Note Completion Co-Signer: Send Summary, Summary Content, Ongoing Care, Note Completion Last Updated: 13-Feb-2021 10:13 by Chuck Cook) [facility] 02-11-2021 Note Post Operative Note: PreOp Diagnosis: diaphragm paralysis Post-Procedure Diagnosis: same Procedure: 1. laparoscopic L diaphragm plication 2. removal of bilateral diaphragm pacing wires 3. L pigtail chest tube placement Surgeon: Dr Chuck Cook Resident/Fellow/Other Prosthetic Aides Teacher: Dr Saw Saleem Anesthesia: GETA Estimated Blood Loss (mL): 10 Specimen: yes Findings: thin L diaphragm plicated, L pigtail chest tube in good position on intraop CXR Signature/Cosignature/Attestation: Note Completion: I am a:Resident/Fellow Attending AttestationI was present for the entire procedure Electronic Signatures: Saw Saleem) (Signed 11-Feb-2021 18:18) Authored: Post Operative Note, Note Completion Chuck Cook) (Signed 12-Feb-2021 07:53) Authored: Note Completion Co-Signer: Post Operative Note, Note Completion Last Updated: 12-Feb-2021 07:53 by Chuck Cook) [facility] 02-11-2021 Note History & Physical R eviewed: [...] care, and discharge plan. Electronic Signatures: Chuck Cook) (Signed 11-Feb-2021 15:50) Authored: History & Physical Reviewed, ERAS, Consent, Note Completion Last Updated: 11-Feb-2021 15:50 by Chuck Cook) [facility] Chief complaint Narrative - Reported An interactive audio and video telecommunication system which permits real time communications between the patient (at the originating site) and provider (at the distant site) was utilized to provide this telehealth service.Post op [id number] Work Phone: Evaluation note Constitutional: Well developed, awake/alert/oriented x3, no distress, alert and cooperativeSkin: warm and dryEyes: PERRL, EOMI, clear scleraENMT: MMMHead/Neck: NCATRespiratory/Thorax: good chest expansion, thorax symmetricCardiovascular: RRRGastrointestinal: Nondistended, soft, non-tender, no rebound tenderness or guardingMusculoskeletal: moves all extremitiesExtremities: well perfusedNeurological: grossly intactPsychological: Appropriate mood and behavior [facility] Evaluation note Diagnosis Spinal stenosis of lumbar region with neurogenic claudication- Primary Spinal stenosis, lumbar region, with neurogenic claudication [facility] Cervical vertebral fusion- Primary Other unspecified back disorder Spinal stenosis of cervical region Spinal stenosis in cervical region [facility] Cervical vertebral fusion Other unspecified back disorder [facility] Diagnosis Chronic obstructive pulmonary disease, unspecified COPD type (CMS/HCC)- Primary Paralyzed hemidiaphragm Class 1 obesity due to excess calories without serious comorbidity with body mass index (BMI) of 31.0 to 31.9 in adult documented in this encounter [facility]* Diagnosis Primary hypertension (CMS/HCC)- Primary Unspecified essential hypertension Chronic obstructive pulmonary disease, unspecified COPD type (CMS/HCC) Hyperlipidemia, unspecified hyperlipidemia type (CMS/HCC) Chronic seasonal allergic rhinitis Encounter for Medicare annual wellness exam Encounter for screening for malignant neoplasm of colon Weight gain Other symptoms concerning nutrition, metabolism, and development Primary hypogonadism in male Primary hypertension (CMS/HCC)- Primary Unspecified essential hypertension Primary hypogonadism in male Hyperlipidemia, unspecified hyperlipidemia type (CMS/HCC) Class 1 obesity due to excess calories without serious comorbidity with body mass index (BMI) of 31.0 to 31.9 in adult- Primary Primary hypertension (CMS/HCC) Unspecified essential hypertension Chronic allergic rhinitis Primary hypertension (CMS/HCC) Unspecified essential hypertension Class 1 obesity due to excess calories without serious comorbidity with body mass index (BMI) of 31.0 to 31.9 in adult Chronic obstructive pulmonary disease, unspecified COPD type (CMS/HCC)- Primary Primary hypertension (CMS/HCC) Unspecified essential hypertension Class 1 obesity due to excess calories without serious comorbidity with body mass index (BMI) of 31.0 to 31.9 in adult Hyperlipidemia, unspecified hyperlipidemia type (CMS/HCC) Chronic seasonal allergic rhinitis Primary hypogonadism in male Class 1 obesity due to excess calories without serious comorbidity with body mass index (BMI) of 31.0 to 31.9 in adult- Primary Chronic obstructive pulmonary disease, unspecified COPD type (CMS/HCC)- Primary Paralyzed hemidiaphragm Class 1 obesity due to excess calories without serious comorbidity with body mass index (BMI) of 31.0 to 31.9 in adult Class 1 obesity due to excess calories without serious comorbidity with body mass index (BMI) of 31.0 to 31.9 in adult- Primary documented in this encounter [facility]* Diagnosis Primary hypertension (CMS/HCC)- Primary Unspecified essential hypertension Chronic obstructive pulmonary disease, unspecified COPD type (CMS/HCC) Hyperlipidemia, unspecified hyperlipidemia type (CMS/HCC) Chronic seasonal allergic rhinitis Encounter for Medicare annual wellness exam Encounter for screening for malignant neoplasm of colon Weight gain Other symptoms concerning nutrition, metabolism, and development Primary hypogonadism in male Primary hypertension (CMS/HCC)- Primary Unspecified essential hypertension Primary hypogonadism in male Hyperlipidemia, unspecified hyperlipidemia type (CMS/HCC) Class 1 obesity due to excess calories without serious comorbidity with body mass index (BMI) of 31.0 to 31.9 in adult- Primary Primary hypertension (CMS/HCC) Unspecified essential hypertension Chronic allergic rhinitis Primary hypertension (CMS/HCC) Unspecified essential hypertension Class 1 obesity due to excess calories without serious comorbidity with body mass index (BMI) of 31.0 to 31.9 in adult Chronic obstructive pulmonary disease, unspecified COPD type (CMS/HCC)- Primary Primary hypertension (CMS/HCC) Unspecified essential hypertension Class 1 obesity due to excess calories without serious comorbidity with body mass index (BMI) of 31.0 to 31.9 in adult Hyperlipidemia, unspecified hyperlipidemia type (CMS/HCC) Chronic seasonal allergic rhinitis Primary hypogonadism in male Class 1 obesity due to excess calories without serious comorbidity with body mass index (BMI) of 31.0 to 31.9 in adult- Primary Chronic obstructive pulmonary disease, unspecified COPD type (CMS/HCC)- Primary Paralyzed hemidiaphragm Class 1 obesity due to excess calories without serious comorbidity with body mass index (BMI) of 31.0 to 31.9 in adult Class 1 obesity due to excess calories without serious comorbidity with body mass index (BMI) of 31.0 to 31.9 in adult- Primary Chronic allergic rhinitis documented in this encounter [facility]* Diagnosis Primary hypertension (CMS/HCC)- Primary Unspecified essential hypertension Chronic obstructive pulmonary disease, unspecified COPD type (CMS/HCC) Hyperlipidemia, unspecified hyperlipidemia type (CMS/HCC) Chronic seasonal allergic rhinitis Encounter for Medicare annual wellness exam Encounter for screening for malignant neoplasm of colon Weight gain Other symptoms concerning nutrition, metabolism, and development Primary hypogonadism in male Primary hypertension (CMS/HCC)- Primary Unspecified essential hypertension Primary hypogonadism in male Hyperlipidemia, unspecified hyperlipidemia type (CMS/HCC) Class 1 obesity due to excess calories without serious comorbidity with body mass index (BMI) of 31.0 to 31.9 in adult- Primary Primary hypertension (CMS/HCC) Unspecified essential hypertension Chronic allergic rhinitis Primary hypertension (CMS/HCC) Unspecified essential hypertension Class 1 obesity due to excess calories without serious comorbidity with body mass index (BMI) of 31.0 to 31.9 in adult Chronic obstructive pulmonary disease, unspecified COPD type (CMS/HCC)- Primary Primary hypertension (CMS/HCC) Unspecified essential hypertension Class 1 obesity due to excess calories without serious comorbidity with body mass index (BMI) of 31.0 to 31.9 in adult Hyperlipidemia, unspecified hyperlipidemia type (CMS/HCC) Chronic seasonal allergic rhinitis Primary hypogonadism in male Class 1 obesity due to excess calories without serious comorbidity with body mass index (BMI) of 31.0 to 31.9 in adult- Primary Chronic obstructive pulmonary disease, unspecified COPD type (CMS/HCC)- Primary Paralyzed hemidiaphragm Class 1 obesity due to excess calories without serious comorbidity with body mass index (BMI) of 31.0 to 31.9 in adult Class 1 obesity due to excess calories without serious comorbidity with body mass index (BMI) of 31.0 to 31.9 in adult- Primary Chronic allergic rhinitis documented in this encounter [facility]* Diagnosis Primary hypertension (CMS/HCC)- Primary Unspecified essential hypertension Chronic obstructive pulmonary disease, unspecified COPD type (CMS/HCC) Hyperlipidemia, unspecified hyperlipidemia type (CMS/HCC) Chronic seasonal allergic rhinitis Encounter for Medicare annual wellness exam Encounter for screening for malignant neoplasm of colon Weight gain Other symptoms concerning nutrition, metabolism, and development Primary hypogonadism in male Primary hypertension (CMS/HCC)- Primary Unspecified essential hypertension Primary hypogonadism in male Hyperlipidemia, unspecified hyperlipidemia type (CMS/HCC) Class 1 obesity due to excess calories without serious comorbidity with body mass index (BMI) of 31.0 to 31.9 in adult- Primary Primary hypertension (CMS/HCC) Unspecified essential hypertension Chronic allergic rhinitis Primary hypertension (CMS/HCC) Unspecified essential hypertension Class 1 obesity due to excess calories without serious comorbidity with body mass index (BMI) of 31.0 to 31.9 in adult Chronic obstructive pulmonary disease, unspecified COPD type (CMS/HCC)- Primary Primary hypertension (CMS/HCC) Unspecified essential hypertension Class 1 obesity due to excess calories without serious comorbidity with body mass index (BMI) of 31.0 to 31.9 in adult Hyperlipidemia, unspecified hyperlipidemia type (CMS/HCC) Chronic seasonal allergic rhinitis Primary hypogonadism in male Class 1 obesity due to excess calories without serious comorbidity with body mass index (BMI) of 31.0 to 31.9 in adult- Primary Chronic obstructive pulmonary disease, unspecified COPD type ([facility]/HCC)- Primary Paralyzed hemidiaphragm Class 1 obesity due to excess calories without serious comorbidity with body mass index (BMI) of 31.0 to 31.9 in adult Class 1 obesity due to excess calories without serious comorbidity with body mass index (BMI) of 31.0 to 31.9 in adult- Primary Chronic allergic rhinitis [facility] Diagnosis Class 1 obesity due to excess calories without serious comorbidity with body mass index (BMI) of 31.0 to 31.9 in adult- Primary [facility]* Diagnosis Primary hypertension (CMS/HCC)- Primary Unspecified essential hypertension Chronic obstructive pulmonary disease, unspecified COPD type (CMS/HCC) Hyperlipidemia, unspecified hyperlipidemia type ([facility]/HCC) Chronic seasonal allergic rhinitis Encounter for Medicare annual wellness exam Encounter for screening for malignant neoplasm of colon Weight gain Other symptoms concerning nutrition, metabolism, and development Primary hypogonadism in male Primary hypertension (CMS/HCC)- Primary Unspecified essential hypertension Primary hypogonadism in male Hyperlipidemia, unspecified hyperlipidemia type (CMS/HCC) Class 1 obesity due to excess calories without serious comorbidity with body mass index (BMI) of 31.0 to 31.9 in adult- Primary Primary hypertension (CMS/HCC) Unspecified essential hypertension Chronic allergic rhinitis Primary hypertension (CMS/HCC) Unspecified essential hypertension Class 1 obesity due to excess calories without serious comorbidity with body mass index (BMI) of 31.0 to 31.9 in adult Chronic obstructive pulmonary disease, unspecified COPD type (CMS/HCC)- Primary Primary hypertension (CMS/HCC) Unspecified essential hypertension Class 1 obesity due to excess calories without serious comorbidity with body mass index (BMI) of 31.0 to 31.9 in adult Hyperlipidemia, unspecified hyperlipidemia type (CMS/HCC) Chronic seasonal allergic rhinitis Primary hypogonadism in male Class 1 obesity due to excess calories without serious comorbidity with body mass index (BMI) of 31.0 to 31.9 in adult- Primary Chronic obstructive pulmonary disease, unspecified COPD type (CMS/HCC)- Primary Paralyzed hemidiaphragm Class 1 obesity due to excess calories without serious comorbidity with body mass index (BMI) of 31.0 to 31.9 in adult Class 1 obesity due to excess calories without serious comorbidity with body mass index (BMI) of 31.0 to 31.9 in adult- Primary Rosacea, unspecified [facility] Diagnosis Chronic obstructive pulmonary disease, unspecified COPD type (CMS/HCC)- Primary Primary hypertension (CMS/HCC) Unspecified essential hypertension Class 1 obesity due to excess calories without serious comorbidity with body mass index (BMI) of 31.0 to 31.9 in adult Hyperlipidemia, unspecified hyperlipidemia type (CMS/HCC) Chronic seasonal allergic rhinitis Primary hypogonadism in male [facility] Narrative* He is status [...] not he wants to follow-up with a engagement quality consultant in our system. [id number] Work Phone: Hospital Discharge instructions* [...] week * Follow Up Appointment 2:Physician/Dept/Service: Dr. Cook - surgeryReason for Referral: hospital follow-up / diaphragm pacer removal, hemidiaphragm plicationLocation: [address] [address] Number: [phone] * Gold Form - Other Clinicians:Other Clinician Instructions: Please take your medications as directed. Please follow-up with Dr. Cook and with your PCP as directed. You may remove dressings and shower Tuesday. No heavy lifting >20lbs or strenours activity for 3 weeks. If your symptoms return orworsen, please seek medical attention. Thank you for allowing us to participate in your care. [facility], operated by [facility] for referral (narrative)* Diagnostic Procedure Only (Routine) - New Request Specialty Diagnoses / Procedures Referred By Sharlene schuster Referred To Contact XR IMAGING Diagnoses Spinal stenosis of lumbar region with neurogenic claudication Procedures XR LUMBAR MOTION 4V AP/LAT/ FLEX/EXT RADEX SPINE LUMBOSACRAL MINIMUM 4 VIEWS Michelle Florentino, TAB.RESEARCH PHARMACIST [address] [place] [address] Xr Imaging [facility] Referral ID Status Reason Start Date Expiration Date Visits Requested Visits Authorized [id number] New Request Auto-Generat ed Referral 04/24/2024 05/24/2025 1 1 [facility] for referral (narrative)* Diagnostic Procedure Only (Routine) - Closed Specialty Diagnoses / Procedures Referred By Contac t Referred To Contact XR IMAGING Diagnoses Cervical vertebral fusion Procedures XR CERV OTHER 4V AP/LAT/FLX/EXT RADEX SPINE CERVICAL 4 [place] [address] [place] [address] [place] [address] Referral ID Status Reason Start Date Expiration Date V isits Requested Visits Authorized [id number] Closed Auto-Generate d Referral 05/31/2024 06/30/2025 1 1 [facility] for referral (narrative)* Consultation (Urgent) - Authorized Specialty Diagnoses / Procedures Referred By Sharlene schuster Referred To Contact Pulmonary Disease Diagnoses Chronic obstructive pulmonary disease, unspecified COPD type (CMS/HCC) Paralyzed hemidiaphragm Procedures MO OFFICE/OUTPATIENT NEW HIGH MDM 60 MINUTES Mani Santoyo NP [address] [place] [phone] Aly Mosley MD [address] [place] [address] Referral ID Status Reason Start Date Expiration Date Visits Requested Visits Authorized [id number] Authorized Specialty Services Required 06/06/2024 12/03/2024 1 1 [facility] Family History Mother Name Dates Details No [...] CERVICAL W/[place] [address] [facility] [place] [id number] [place] [facility] Referral ID Status Reason Start Date Expiration Date Visits Requested Visits Authorized [id number] New Request Auto-Generat ed Referral 05/31/2024 06/30/2025 1 1 Specialty Diagnoses / Procedures Referred By Contac t Referred To Contact XR IMAGING Diagnoses Cervical vertebral fusion Procedures XR CERV OTHER 4V AP/LAT/FLX/EXT RADEX SPINE CERVICAL 4 [place] [address] [place] [address] Xr Imaging [place] [address] Referral ID Status Reason Start Date Expiration Date V isits Requested Visits Authorized [id number] Closed Auto-Generate d Referral 05/31/2024 06/30/2025 1 [...] section and content) DATE CREATED AUTHOR 04/04/2021 [facility] DATE CREATED AUTHOR AUTHOR'S ORGANIZ ATION 04/08/2021 [facility] DATE CREATED AUTHOR AUTHOR'S ORGANIZ ATION 12/31/2022 [facility] DATE CREATED AUTHOR AUTHOR'S ORGANIZ ATION 04/26/2024 [facility] DATE CREATED AUTHOR AUTHOR'S ORGANIZ ATION 07/10/2024 [facility] DATE CREATED AUTHOR AUTHOR'S ORGANIZ ATION 07/12/2024 [facility] Source Comments (unrecognize d section and content) In the event this informatio n is protected by the Federal Confidentiality of Alcohol and Drug Abuse Patient Records regulations: The Federal rules restrict any use of the information to criminally investigate or prosecute any alcohol or drug abuse patient.[facility] the event this information is protected by the Federal Confidentiality of Alcohol and Drug Abuse Patient Records regulations: The Federal rules restrict any use of the information to criminally investigate or prosecute any alcohol or drug abuse patient.[facility] the event this information is protected by the Federal Confidentiality of Alcohol and Drug Abuse Patient Records regulations: The Federal rules restrict any use of the information to criminally investigate or prosecute any alcohol or drug abuse patient.[facility] Care Teams (unrecognized sec tion and content) Insurance Sales Producer Relationship Specialty Start Date End Date Tonny Hernandez MD [address] [facility] [place] [address] Referring Pain Management 04/16/24 Insurance Sales Producer Relationship Specialty Start Date End Date Tonny Hernandez MD [address] [facility] [place] [address] Referring Pain Management 04/16/24 Insurance Sales Producer Relationship Specialty Start Date End Date Tonny Hernandez MD [address] [facility] [place] [place] [address] Referring Pain Management 04/16/24 Insurance Sales Producer Relationship Specialty Start Date End Date Rosa Barker MD [address] [facility] [address] [place] [address] PCP - Devoted 09/05/22 Nikunj Yanez MD [address] [place] [address] PCP - General Family Medicine 04/09/24 Mani Santoyo NP [address] [place] [address] Nurse Practitioner Family Medicine 04/09/24 Insurance Sales Producer Relationship Specialty Start Date End Date Rosa Barker MD [address] [facility] [address] [place] [address] PCP - Devoted 09/05/22 Nikunj Yanez MD [address] [place] [address] PCP - General Family Medicine 04/09/24 Mani Santoyo NP [address] [place] [address] Nurse Practitioner Family Medicine 04/09/24 Insurance Sales Producer Relationship Specialty Start Date End Date Rosa Barker MD [address] [place] [address] [place] [address] PCP - Devoted 09/05/22 Nikunj Yanez MD [address] [place] [phone] PCP - General Family Medicine 04/09/24 Mani Santoyo NP [address] [place] [address] Nurse Practitioner Family Medicine 04/09/24 Insurance Sales Producer Relationship Specialty Start Date End Date Rosa Barker MD [address] [place] [address] PCP - Devoted 09/05/22 Nikunj Yanez MD [address] [place] [address] PCP - General Family Medicine 04/09/24 Mani Santoyo NP [address] [place] [address] Nurse Practitioner Family Medicine 04/09/24 Insurance Sales Producer Relationship Specialty Start Date End Date Rosa Barker MD [address] [place] [address] [place] [address] PCP - Devoted 09/05/22 Nikunj Yanez MD [address] [place] [address] PCP - General Family Medicine 04/09/24 Mani Santoyo, GREGORY [address] [place] [address] Nurse Practitioner Family Medicine 04/09/24 Insurance Sales Producer Relationship Specialty Start Date End Date Rosa Barker MD [address] [place] [address] PCP - Devoted 09/05/22 Nikunj Yanez MD [address] [place] [address] PCP - General Family Medicine 04/09/24 Mani Santoyo, GREGORY [address] [place] [address] Nurse Practitioner Family Medicine 04/09/24 Insurance Sales Producer Relationship Specialty Start Date End Date Rosa Barker MD [address] [facility] [address] [place] [address] PCP - Devoted 09/05/22 Nikunj Yanez MD [address] [place] [address] PCP - General Family Medicine 04/09/24 Mani Santoyo NP [address] [place] [place] [address] Nurse Practitioner Family Medicine 04/09/24 Reason for Visit (unrecogniz ed section and content) Reason Comments New Patient Reason Comments Radio Gen RMP Specialty Diagnoses / Procedures Referred By Contac t Referred To Contact XR IMAGING Diagnoses Cervical vertebral fusion Procedures XR CERV OTHER 4V AP/LAT/FLX/EXT RADEX SPINE CERVICAL 4 [place] [address] [place] [address] [place] [address] Referral ID Status Reason Start Date Expiration Date V isits Requested Visits Authorized [id number] Closed Auto-Generate d Referral 05/31/2024 06/30/2025 1 1 Reason Comments Weight Check Reason Onset Date Comments Med Refill 07/16/2024 Reason Onset Date Comments Med Refill 08/07/2024 Reason Onset Date Comments Med Refill 08/09/2024 Reason Comments Follow-up FOR RECORDS PERTAINING TO PATIENTS WHO ARE [...] BE BASED ON THE PRIMARY CLINICAL RECORDS. [employer] provides no warranty or guarantee of the accuracy or completeness of information in this document.
--- NOTE | 2024-08-24 08:03 | CT_ITS ---
[address] [address] Patient Name: RIGO JEFFERSON MRN: [id number] date: 1960 Sex: M Assigned Patient Location: CT Current Patient Location: Accession/Order Number: [id number] Exam Date: 08/24/2024 08:09 Report Date: 08/25/2024 06:00 At the request of: JAYLEEN ASHFORD Procedure: CT chest high res EXAMINATION: CT chest high res HISTORY: Other Pleural Conditions oral COMPARISON: No relevant comparison available. TECHNIQUE: Axial images were obtained at 10 mm intervals during inspiration and expiration in the supine and prone positions. No IV contrast given. Dose reduction techniques were achieved by using automated exposure control and/or adjustment of mA and/or kV according to patient size and/or use of iterative reconstruction technique. FINDINGS: LUNGS: Mild emphysematous changes. Prominent curvilinear stranding opacities/scarring throughout the lungs, left greater than right. No significant peripheral fibrosis. No air trapping or large bulla. No significant bronchiectasis or mucous plugging. Elevated left hemidiaphragm with herniation of fat through the diaphragm. PLEURA: No mass, effusion, or pneumothorax. JAKY: No mass or adenopathy. MEDIASTINUM: No mass or adenopathy. HEART: No significant enlargement or pericardial effusion.. Coronary arteries: AORTA: No aneurysm.. CHEST WALL: No mass or axillary adenopathy LIMITED ABDOMEN: No suspicious findings. Limited images of the upper abdomen. OTHER: Negative. CT/CT chest high res IMPRESSION: 1. Stable chronic interstitial changes and scarring. Mild emphysematous changes. No acute infiltrates, mucus plugging, bronchiectasis, or air trapping. 2. Grossly stable elevated left hemidiaphragm and herniation of fat through the diaphragm. Electronically authenticated by: DOMINGA FLYNN Date: 08/25/2024 06:00
[2024-08-24 08:33] LABS: Hemoglobin 17.6 g/dL (14.0-18.0)
[2024-08-24] MEDS: ALBUTEROL SULFATE 2.5 MG/3 ML VIAL NEB IH (10:11)
--- NOTE | 2024-08-24 10:20 | RT_ITS ---
[facility] Test Date: 2024-08-24 Pat Name: RIGO JEFFERSON Department: Room: - Gender: Male Fun House Attendant: Emily Mckenna RRT : 1960 Requested By: Aly Mosley Order Number: [id number] Vladimir MD: Aly Mosley Interpretive Statements Pulmonary function testing was completed according to ATS criteria. Findings were considered accurate and reproducible. Both pre- and post-bronchodilator values utilized for spirometry. Spirometry (based on pre-bronchodilator values): -FEV1/FVC: Normal @ 81% -FEV1: Reduced @ 75% -FVC: Mild-moderately reduced @ 70% -There is no significant bronchodilator response. Lung volumes by plethysmography (based on pre-bronchodilator values): -RV: Reduced @ 65% -TLC: Moderately reduced @ 65% Diffusion capacity: -DLCO: Moderate reduction @ 65% when corrected for Hb 17.6g/dL Flow-volume loop: -Mild obstructive pattern Prior testing 05/16/2018: -FEV1: 57% -T% -DLCO: 66% Impressions: -Spirometry suggests mild-moderate restriction, confirmed with a moderately reduced TLC. There is also a moderate diffusion capacity. PFT is consistent with a restrictive process such as interstitial lung disease or cardiopulmonary vascular disease. There also appears to be a secondary polycythemia with Hb 17.6g/dL. When compared to prior PFT 05/16/2018, spirometry has improved, without significant change in lung volumes or diffusion capacity. Clinical correlation required. Electronically Signed On 08-27-2024 7:49:17 EST by Aly Mosley
== END 2024-08-24 07:57 | disposition home or self-care (01) ==
LOC: CT 07:56
PROVIDERS: Visit Provider Internal Medicine
DX: J84.10 Pulmonary fibrosis, unspecified (principal); J44.9 Chronic obstructive pulmonary disease, unspecified
CPT/HCPCS: 36415; 71250; 85018; 94060; 94726; 94729

== ENCOUNTER 2024-09-07 10:50 | Outpatient (OUT) | payer OTHER, SELFPAY ==
--- OUTSIDE RECORDS SUMMARY | 2024-09-07 11:09 | XMS_ITS | CCD ---
Author Organization [facility] Care Team Providers Care Electro Mechanical Technologist Name Role Phone Chandan Cool Unavailable Unavailable Osorio Sid William Unavailable Unavailable Required, No Pcp Unavailable Unavailable Ada Chuck Unavailable None, No PCP Unavailable Unavailable [facility], [facility] Primary Care Unavailable WEST, DR RADHA Gaxiola Consulting Unavailable DUNCAN ., DR LLUVIA Sheldon Attending Unavailable DUNCAN ., DR LLUVIA Sheldon Admitting Unavailable DUNCAN ., DR LLUVIA Sheldon Consulting Unavailable [facility], [facility] Primary Care Unavailable DUNCAN ., DR LLUVIA Sheldon Attending Unavailable DUNCAN ., DR LLUVIA Sheldon Consulting Unavailable DUNCAN ., DR LLUVIA Sheldon Admitting [facility]available [facility] Primary Care Unavailable DUNCAN ., DR LLUVIA Sheldon Attending Unavailable DUNCAN ., DR LLUVIA Sheldon Consulting Unavailable DUNCAN ., DR LLUVIA Sheldon Admitting [facility]available [facility] Primary Care Unavailable ANDERSEN .RAVINDER Consulting Unavailable DUNCAN ., DR LLUVIA Sheldon Admitting Unavailable DUNCAN ., DR LLUVIA Sheldon Attending Unavailable [facility] Primary Care Unavailable ANDERSEN .RAVINDER Consulting Unavailable DUNCAN ., DR LLUVIA Sheldon Admitting Unavailable DUNCAN ., DR LLUVIA Sheldon Attending Unavailable [facility] Primary Care Unavailable LAKSHMIPATHY ., NARENDRANATH Attending Nadira vailable LAKSHMIPATHY ., NARENDRANATH Admitting Nadira vailable [facility], [facility] Primary Care Unavailable LAKSHMIPATHY ., NARENDRANATH Attending Nadira vailable LAKSHMIPATHY ., NARENDRANATH Consulting Nadira vailable LAKSHMIPATHY ., NARENDRANATH Admitting Nadira vailable FAWWAD, [facility] Primary Care Unavailable LAKSHMIPATHY ., NARENDRANATH Consulting Nadira vailable LAKSHMIPATHY ., NARENDRANATH Admitting Nadira vailable LAKSHMIPATHY ., NARENDRANATH Attending Nadira vailable HELENA, COREAS H Primary Care Unavailable NATHALY .RAVINDER Consulting Unavailable CUCO ., DR LLUVIA Sheldno Attending Unavailable CUCO ., DR LLUVIA Sheldon Admitting Unavailable FAWWASis, COREAS H Primary Care Unavailable LAKSHMIPATHY ., NARENDEMERYATH Attending Nadira vailable RINA, DR DOMINGA William Consulting Unavailable LAKSHMIPATHY ., NARENDRANATH Admitting Nadira vailable LAKSHMIPATHY ., NARENDRANATH Consulting Nadira vailable Lakshmaepathy , Tonny Unavailable Lucero ZAPIEN, Rosa Marion Unavailable Nikunj Yanez MD Primary Care Provider Natanael RETAIL COSMETICS SALES COUNTER MANAGER, Mani Unavailable JONATHAN NAGY Attending Unavailable JONATHAN NAGY Attending Unavailable SHAIKH MALIK Attending Unavailable SHAIKH MALIK Attending Unavailable HELENA, Attending Unavailable MANI SANTOYO Attending Unavailakua e SHAIKH MALIK Attending Unavailable MANI SANTOYO Attending UnavailMANI Menon Attending UnavailELIAS Franklin Attending Unavailable ELIAS SPAULDING Attending Unavailable Medications Current [...] Substitution Allowed atenolol 25 mg oral tablet (15 sources) beta-Adrenergic Mook Start: 01-25-2017 take 1 [...] hydrochloride 120 mg extended release oral tablet (19 sources) alpha-Adrenergic Agonist, Histamine-1 Receptor Antagonist Start: [...] propionate 0.05 mg/actuat metered dose nasal spray (17 sources) Corticosteroid Start: 03-15-2023 take 2 spray(s) nasal route in the morning fluticasone (Flonase) 50 MCG/ACT nasal spray Administer 2 sprays into each nostril in the morning. 03/15/2023 Active Start: 03-15-2023 fluticasone (F LONASE) 50 mcg/actuation nasal spray 2 Sprays. 03/15/2023 Active hydroCHLOROthiazide 12.5 mg / losartan potassium 50 mg oral tablet (15 sources) Thiazide Diuretic, Angiotensin 2 Receptor Mook Start: 02-23-2024 End: 08-21-2024 take 1 tablet by mouth once daily losartan-hydroCHLOROthiazide (Hyzaar) 50-12.5 MG tablet Indications: Primary hypertension (CMS/HCC) TAKE 1 TABLET BY MOUTH DAILY 90 tablet 1 02/23/2024 Active meloxicam 15 mg oral tablet (16 sources) Nonsteroidal Anti-inflammator y Drug Start: 04-10-2024 take 1 tablet by mouth once daily meloxicam (Mobic) 15 MG tablet Take 15 mg by mouth Daily 04/10/2024 Active montelukast 10 mg oral tablet (17 sources) Leukotriene Receptor Antagonist Start: 02-23-2024 take [...] days Active zonisamide 50 mg oral capsule (16 sources) Anti-epileptic Agent Start: 04-10-2024 take 1 [...] 17 MCG/ACT Inhalation Aerosol Solution Refills: 0 [place] FOREIGN LAW CONSULTANTDARIUS Chandan Start : 28-Nov-2017 Active lisinopril 20 [...] disease (2 sources) Atherosclerotic heart disease of hoopa coronary artery without angina pectoris; Translations: [Atherosclerotic heart disease of hoopa coronary artery without angina pectoris] Onset: 05-15-2024 Chronic Disorders of lipid metabolism (19 sources) Hyperlipidemia; Translations: [Hyperlipidemia, unspecified] Onset: 08-18-2023 [...] SHOULDER] Onset: 12-29-2022 Episodic Other endocrine disorders (17 sources) Testicular hypofunction; Translations: [Testicular hypofunction] Onset: 08-18-2023 08-18-2023 Chronic Other endocrine disorders (3 sources) Hypopituitarism; Translations: [Hypopituitarism] Onset: 08-09-2024 08-09-2024 Chronic Other inflammatory condition of skin (1 source) Rosacea; Translations: [Rosacea, unspecified] 08-15-2024 Chronic Other lower respiratory disease (6 sources) Disorder of diaphragm; Translations: [Disorders of diaphragm] Episodic Other lower respiratory disease (12 sources) Paralysis of diaphragm ; Translations: [Disorders [...] Onset: 01-29-2022 Chronic Other nervous system disorders (15 sources) Chronic pain syndrome; Translations: [Chronic pain [...] Onset: 05-14-2024 Chronic Other upper respiratory disease (17 sources) Seasonal allergic rhinitis; Translations: [Other seasonal allergic rhinitis] Onset: 08-18-2023 08-18-2023 Chronic Other upper respiratory disease (18 sources) Allergic rhinitis; Translations: [Allergic rhinitis, unspecified] Onset: 12-29-2023 12-29-2023 Chronic Residual codes; unclassified (3 sources) Reduced libido; Translations: [Decreased libido] Onset: [...] Date Documented Da te Episodic/Chronic Cardiac dysrhythmias (15 sources) Atrial fibrillation; Translations: [Unspecified atrial fibrillation] Onset: 09-26-2023 Resolved: 11-23-2023 11-23-2023 Chronic Other connective tissue disease (1 source) Other muscle spasm; Translations: [OTHER MUSCLE SPASM] Onset: 05-23-2022 Episodic Other nutritional; endocrine; and metabolic disorders (10 sources) Weight increased; Translations: [Abnormal weight gain] [...] Test Name Value Interpretation Reference Range Facility ALL HEMOGLOBINon 08-24-2024 Hemoglobin (Bld) [Mass/Vol] 17.6 g/dL 14.0 - 18.0 g/dL [facility] Healthcare [facility] Healthcare Office Visiton 07-11-2024 Follow-up visit [id number] Rigo Jefferson 1960 M Date Provider Department Center 07/11/2024 [id number], ELIAS Sims Family History Problem Relation Age of Onset Diabetes Mother Hypertension Mother Hypertension Father Coronary artery disease Brother Hypertension Brother Diabetes Brother Family Status - Relation Status Age at Mother Father Brother Level of Service:96020 [place] OFFICE/OUTPATIENT ESTABLISHED MOD MDM 30 MIN Reason for Visit and Comments: Coronary Artery Disease [187] Hypertension [711311] - Started on atenolol at last visit, had echo in may Hyperlipidemia [182] Shortness of Breath [805863] - PT ONLY HAS ONE LUNG Normal [facility] 36on 06-11-2024 36 From: Elias Spaulding MD Sent: 05/31/2024 9:21 PM EDT To: [...] in his pulse ox with exercise Normal [facility] Telephoneon 06-11-2024 Telephone [id number] Rigo Jefferson 1960 Date Provider Department Center 06/11/2024 [id number] LOMBARDO Family History Problem Relation Age of Onset Diabetes Mother Hypertension Mother Hypertension Father Coronary artery disease Brother Hypertension Brother Diabetes Brother Family Status - Relation Status Age at Mother Father Brother Normal [facility] No Panel Informationon 05-31 Radiology Study observation (narrative) [facility] XR CERV OTHER 4V AP/LAT/FLX/ EXTon 05-31-2024 IMPRESSION: Severe degenerative disc disease C4-C5. Solid bony fusion C5-C7. Branch Office Manager: PSCB Transcribe Date/Time: May 31 2024 9:27P Dictated by : JENN SANTOYO MD This examination was interpreted and the report reviewed and electronically signed by: JENN SANTOYO MD on May 31 2024 9:29PM [facility] * * *Final Report* * * [...] soft tissue swelling. [facility] Provider, [facility] - 05/31/2024 * * *Final Report* * [...] disc disease C4-C5. Solid bony fusion C5-C7. Branch Office Manager[facility] Transcribe Date/Time: May 31 2024 9:27P Dictated by : JENN SANTOYO MD This examination was interpreted and the report reviewed and electronically signed by: JENN SANTOYO MD on May 31 2024 9:29PM EST [facility] XR CERV OTHER 4V AP/LAT/FLX/ EXTOrdered By: Ccf Provider on 05-31-2024 [facility] XR Lumbar spine Views W flex ion and W extensionon 05-31-2024 IMPRESSION: Mild to moderate multilevel degenerative change lumbar spine and suspected diffuse intrahepatic skeletal hyperostosis. Branch Office Manager: PSCB Transcribe Date/Time: May 31 2024 9:29P Dictated by : JENN SANTOYO MD This examination was interpreted and the report reviewed and electronically signed by: JENN SANTOYO MD on May 31 2024 9:31PM EST [facility] * * *Final Report* * * [...] No acute fracture or compression deformity identified. [facility] Provider, [facility] - 05/31/2024 * * *Final Report* [...] spine and suspected diffuse intrahepatic skeletal hyperostosis. Branch Office Manager: PSCMando Transcribe Date/Time: May 31 2024 9:29P Dictated by : JENN SANTOYO MD This examination was interpreted and the report reviewed and electronically signed by: JENN SANTOYO MD on May 31 2024 9:31PM EST [facility] Office Visiton 05-14-2024 Follow-up visit [id number] Rigo Jefferson 1960 M Date Provider Department Center 05/14/2024 [id number]-WZHOCVELIAS SPAULDING CARD [facility] Family History Problem Relation Age of Onset Diabetes Mother Hypertension Mother Hypertension Father Coronary artery disease Brother Hypertension Brother Diabetes Brother Family Status - Relation Status Age at Mother Father Brother Level of Service:27979 [place] OFFICE/OUTPATIENT NEW MODERATE MDM 45 MINUTES Reason for Visit and Comments: Hypertension [726301] - New patient to re-establish care. Ref for hypertension. Used to be on antihypertensives but is currently on none. Palpitations [355568] - Sometimes Shortness of Breath [313506] - Has 1 lung, hx of COPD, pulmonary emphysema Dizziness [333346] Normal [facility] MRI SHOULDER LT WO [...] by: DOMINGA FLYNN Date: 2022-12-08 10:25 [facility] RT WO CONon [...] DOMINGA FLYNN Date: 2022-12-08 10:35 Normal [facility] XR CSPINE OBL FLEX_EXTon XR CSPINE [...] RADHA DIAZ Date: 2022-05-31 20:33 Normal [facility] Post Op (General Surgery)on 04-02-2021 Post [...] not he wants to follow-up with a digital campaign manager in our system. Provider Impressions He is [...] not he wants to follow-up with a digital campaign manager in our system. Chief Complaint An interactive [...] not he wants to follow-up with a digital campaign manager in our system. Active Problems COPD (chronic [...] MG Oral Tablet Results/Data Xray Chest 1 [id number] 04:27PMJesusita Stevenson Test NameResultFlagReference Xray Chest 1 View(Report) FINAL REPORT Interpreted by: МАРИНА MARCELO MD 02/12/21 16:52 Patient Name: RIGO JEFFERSON STUDY: CHEST 1 VIEW; 02/12/2021 4:27 pm INDICATION: chest tube removal. COMPARISON: Prior 11:07 a.m. radiograph. ACCESSION NUMBER(S): [id number] ORDERING CLINICIAN: JESUSITA STEVENSON FINDINGS: Left basilar [...] Apr 02 2021 5:38PM EST (Author) Normal [facility] Admission Risk Screen - Adul ton 02-12-2021 Admission Risk Screen - Adult Allergies: Allergies: No Known Allergies: Patient Verification: New W ID Band Applied in my Departmentno Type of ID Patient is WearingW wristband, but not applied here Patient Transferred from Other Facility ([facility], [facility],etc)no Patient Identity Verified Bypatient ID [...] AlertFor Ebola-like Symptoms: Isolate Patient and Notify Provider/Global Project Manager For Contact: Notify Provider/Global Project Manager Advance Directive: Advance Directive/DNRno (1) Advance [...] Learning Preferencesverbal instruction Cultural Considerationsnone Developmental Considerationsnone Yarsanism Considerationsnone Learning Assessment (Other Learner): Other learner availableno Depression Screen: During the past month, have you often been bothered by feeling down, depressed or hopelessno (1) During the past month, have you often had little interest or pleasure in doing thingsno (1) Have you had any thoughts of harming anyone elseno (1) [place] Suicide: Risk Screen Not Applicable/Able to Answerable to be screened In the Past Month: Have you wished you were or could go to sleep and not wake upno(1) In the Past Month: Have you had any actual thoughts of killing yourself no(1) Lifetime: Have you ever done, started to do, or prepared to do anything to end your lifeno(1) [place] Suicide Risknegative Adult Nutrition Screen: Have you [...] Pain (nonverbal)verbalization (more content not included)... Normal [facility] BASIC METABOLIC PANELon 02-03 Anion gap [Moles/Vol] 15 mmol/L Normal 10 - 20 [facility] Comment on above: Performed By: #### B MP #### [facility] [address] [place] [address] Calcium [Mass/Vol] 9.5 mg/dL Normal 8.6 - 10.6 [facility] Comment on above: Performed By: #### B MP #### [facility] [address] [place] [address] Chloride [Moles/Vol] 102 mmol/L Normal 98 - 107 [facility] Comment on above: Performed By: #### B MP #### [facility] [address] [place] [address] Creatinine [Mass/Vol] 0.98 mg/dL Normal 0.50 - 1.30 [facility] Comment on above: Performed By: #### B MP #### [facility] [address] [place] [address] GFR- AM. >60 Normal >60 [facility] Comment on above: Result Comment: CALC ULATIONS OF ESTIMATED GFR ARE PERFORMED USING THE MDRD STUDY EQUATION FOR THE IDMS-TRACEABLE CREATININE METHODS. CLIN CHEM 2007;53:766-72 Performed By: #### B MP #### [facility] [address] [place] [address] GFR-NON AM. >60 Normal >60 [facility] Comment on above: Performed By: #### B MP #### [facility] [address] [place] [address] Glucose [Mass/Vol] 133 mg/dL High 74 - 99 [facility] Comment on above: Performed By: #### B MP #### [facility] [address] [place] [address] HCO3 (Bld) [Moles/Vol] 24 mmol/L Normal 21 - 32 [facility] Comment on above: Performed By: #### B MP #### [facility] [address] [place] [address] Potassium [Moles/Vol] 4.3 mmol/L Normal 3.5 - 5.3 [facility] Comment on above: Performed By: #### B MP #### [facility] [address] [place] [address] Sodium [Moles/Vol] 137 mmol/L Normal 136 - 145 [facility] Comment on above: Performed By: #### B MP #### [facility] [address] [place] [address] Urea nitrogen [Mass/Vol] 17 mg/dL Normal 6 - 23 [facility] Comment on above: Performed By: #### B MP #### [facility] [address] [place] [address] CBCon 02-12-2021 Erythrocyte distribution width (RBC) [Ratio] 12.1 % Normal 11.5 - 14.5 [facility] Comment on above: Performed By: #### C BC #### [facility] [address] [place] [address] Hematocrit (Bld) [Volume fraction] 45.8 % Normal 41.0 - 52.0 [facility] Comment on above: Performed By: #### C BC #### [facility] [address] [place] [address] Hemoglobin (Bld) [Mass/Vol] 15.0 g/dL Normal 13.5 - 17.5 [facility] Comment on above: Performed By: #### C BC #### [facility] [address] [place] [address] MCHC (RBC) [Mass/Vol] 32.8 g/dL Normal 32.0 - 36.0 [facility] Comment on above: Performed By: #### C BC #### [facility] [address] [place] [address] MCV (RBC) [Entitic vol] 94 fL Normal 80 - 100 [facility] Comment on above: Performed By: #### C BC #### [facility] [address] [place] [address] NUCLEATED RBC 0.0 /100 WBC Normal 0.0-0.0 [facility] Comment on above: Performed By: #### C BC #### [facility] [address] [place] [address] Platelets (Bld) [#/Vol] 228 10*3/uL Normal 150 - 450 [facility] Comment on above: Performed By: #### C BC #### [facility] [address] [place] [address] RBC 4.85 x10E12/L Normal 4.50 - 5.90 [facility] Comment on above: Performed By: #### C BC #### [facility] [address] [place] [address] WBC (Bld) [#/Vol] 12.8 10*3/uL High 4.4 - 11.3 [facility] Comment on above: Performed By: #### C BC #### [facility] [address] [place] [address] Clinical Event Note-POCon Clinical Event Note-POC Clinical [...] care per primary team Nataliia Ferris MD [place] resident overnight Electronic Signatures: Nataliia Ferris ( (Resident)) (Signed 12-Feb-2021 00:41) Authored: Clinical Event Note Last Updated: 12-Feb-2021 00:41 by Nataliia Ferris (Resident)) Normal [facility] Daily Progress Note-Surgeryo n 02-12-2021 Daily Progress [...] yet. Objective Data: Objective Information: T PRBPSpO2 [id number]/8695% Date/Time02/12 6:4902/12 6:4902/12 6:4902/12 6:4902/12 6:49 Range(35.4C - 36.4C ) (77 - 99 ) (17 - 18 ) (127 - 147 )/ (86 - 91 ) (95% - 96% ) Pain reported at 02/12 2:54: 6 = Moderate ---- Intake and Output ----- Mn/Dy/Year TimeIntakeOutputNet Feb 12, 2021 6:00 [id number] Feb 11, 2021 10:00 [id number] The Intake and Output Totals for the last 24 hours are: IntakeOutputNet [id number] Physical Exam by System: Constitutional: Well developed, [...] in the note. Electronic Signatures: Jesusita Stevenson ( (Resident)) (Signed 12-Feb-2021 10:38) Authored: Service, Subjective Data, Objective Data, Assessment and Plan, Note Completion Chuck Cook) (Signed 13-Feb-2021 10:13) Authored: Note Completion Co-Signer: Service, Subjective Data, Objective Data, Assessment and Plan, Note Completion Last Updated: 13-Feb-2021 10:13 by Chuck Cook) Normal [facility] Discharge Planning Chaq0jy 0 02-12-2021 Discharge Planning Note2 Discharge Planning: Needs Prior to Discharge (ex. Home Care Orders, IV/O2 prescriptions) Follow up appointments Discharge Barriers (ex. Avoidable days, wait guardianship, pt refuse leave) None Planned Dispositionhome Discharge DestinationHome [facility] [place] of Choice Explainedyes preference Anticipated Discharge [id number] Discharge Planning 02/12/2021 0135 Discharge Plan Patient transferred from [place] [address] from PACU for diaphragm plication. Pt is A&O times 4. at 3 liters oxygen. Pt denies any emergency medical dispatcher use at home. Pt emergency lithography contact worker Shail [place]- son. Pt have valuable belongings at [...] needs when medically ready. [facility] Status: Inpatient Discharge disposition: Home Potential Barriers: none ADOD: 02/12. marketing content coordinator will continue to follow for discharge planning needs. Franny Gilliam RN, Transitional Brake Repair Mechanic/TCC, pager [phone] Discharge note: 02/12/21 @ 1735: PT discharged home at this time. pts peripheral IV taken out prior to DC. pt given DC instructions. pt verbalized understanding. pt refused transport and walked downstairs with his son.---Erika miramontes RN Assessment: Discharge Planning Assessment [id number] Primary Contact Name and NumberAda [phone](1) Stated Reason for Admissiondiaphragm plication(2) Arrived From[place] (2) Lives Withparent(s)(2) Living Arrangementshouse(2) Resource/Environmental Concernsnone(2) Anticipated Transition [place](2) Services Anticipated at Transitionnone(2) Discharge Documentation: Discharge/Transfer Date/[id number]-Zam-8263 17:35 Discharge Modeambulatory Discharged Accompanied Byfamily member [...] Profile - Adult v2 12-Feb-2021 01:31 Normal [facility] Discharge [id number] 021 Discharge Profile2 Discharge Orders: Anticipated Discharge Date: Anticipated Discharge [id number] DNAR: DNAR Status: none Call Provider If [...] at 12-Feb-2021 14:39:47 Appointments: Follow-Up Appointment 01: Physician/Dept/MilenaYour PCP Reason for Referralhospital follow-up Call to Schedule in1 week Follow-Up Appointment 02: Physician/Dept/MilenaDr. Onders - surgery Reason for Referralhospital follow-up / diaphragm pacer removal, hemidiaphragm plication Call to Schedule in2 weeks [id number] Phone [phone] Other Clinician Instructions: Other Instructions: Other Clinician [...] Appointments, Other Clinician Instructions, Gold Form - Ichthyology Teacher Summary Last Updated: 12-Feb-2021 15:27 by Jesusita Stevenson (DO (Resident)) Normal [facility] Laboratory - Chemistry and C hemistry - challengeon 02-12-2021 Anion gap [Moles/Vol] 15 mmol/L 10 - 20 PP-Ciyxyeb-Y reen [facility] Work Phone: Calcium [Mass/Vol] 9.5 mg/dL 8.6 - 10.6 MG-Tino raysa[facility] Work Phone: Chloride [Moles/Vol] 102 mmol/L 98 - 107 XQ-Wqmqgjx-H reen [facility] Work Phone: CO2 [Moles/Vol] 24 mmol/L 21 - 32 MG-Surger y-[facility] Work Phone: Creatinine [Mass/Vol] 0.98 mg/dL See Below SE-Gsxgofh-K reen [facility] Work Phone: Comment on above: Reference Range: 0.5 0 - 1.30 Glucose [Mass/Vol] 133 mg/dL above high threshold 74 - 99 CI-Yrlayuv-A reen [facility] Work Phone: Potassium [Moles/Vol] 4.3 mmol/L 3.5 - 5.3 JS-Uzfyvhb-Z reen [facility] Work Phone: Sodium [Moles/Vol] 137 mmol/L 136 - 145 MG-Tino raysa-G [address] Work Phone: Urea nitrogen [Mass/Vol] 17 mg/dL 6 - 23 LO-Pnjrtch-K [address] Work Phone: Laboratory - Hematology and Cell countson 02-12-2021 Erythrocyte distribution width (RBC) [Ratio] 12.1 % See Below TO-Hrjzgji-I [address] Work Phone: Comment on above: Reference Range: 11. 5 - 14.5 Hematocrit (Bld) [Volume fraction] 45.8 % See Below UA-Dumxmzm-R [address] Work Phone: Comment on above: Reference Range: 41. 0 - 52.0 Hemoglobin (Bld) [Mass/Vol] 15.0 g/dL See Below TA-Ftaqgbf-V [address] Work Phone: Comment on above: Reference Range: 13. 5 - 17.5 MCHC (RBC) [Mass/Vol] 32.8 g/dL See Below PJ-Xfdysxy-A [address] [facility] Work Phone: Comment on above: Reference Range: 32. 0 - 36.0 MCV (RBC) [Entitic vol] 94 fL 80 - 100 CF-Iefrqbu-E [address] Work Phone: Platelets (Bld) [#/Vol] 228 10*3/uL 150 - 450 JW-Badjqbi-[facility] Work Phone: RBC (Bld) [#/Vol] 4.85 {x10E12/L} See Below MG -Surgery-G [address] Work Phone: Comment on above: Reference Range: 4.5 0 - 5.90 WBC (Bld) [#/Vol] 12.8 10*3/uL above high threshold 4.4 - 11.[address] Work Phone: No Panel Informationon 02-12 >60 >60 [address] [facility] Work Phone: Comment on above: CALCULATIONS OF LANRE MATED GFR ARE PERFORMED USING THE MDRD STUDY EQUATION FOR THE IDMS-TRACEABLE CREATININE METHODS. CLIN CHEM 2007;53:766-72 0.0 {/100_WBC} 0.0-0.0 MG-Surgery -G [facility] 107 Work Phone: Order Reconciliationon 02-12 [...] tab(s) orally 2 times a day Normal [facility] Patient Profile - Adult v2on 02-12-2021 Patient Profile - Adult v2 Profile: Initial Info: How to be AddressedDel(1) Spoken Language PreferredEnglish (1) Stated Reason for Admissiondiaphragm plication Patient Belongingsremains with patient Patient Belongings Remaining with Patientcash/credit card; clothing Arrived FromOR Medications Brought to Hospitalno Are you currently using the Personal Electronic Health Record or [employer]no (1) Wants Family/Rep Notified of Admissionyes, primary contact Notify PCPnotify PCP Informed of Patient Visiting Rightsyes General Health: Blood Avoidance/Restrictionsnone (1) Previous Transfusion Reactionno(2) Weight in kg109.8 kilogram(s)(3) Weight in ijz453 pound(s) Weight Methodactual (measured) (3) Scale Typestanding [...] From 1. Vital Signs 11-Feb-2021 12:02 Normal [facility] Radiologyon 02-12-2021 XR Chest Single view Normal TD-Xkuzfwh-[address] Work Phone: XR Chest Single view Normal CV-Vzgvjai-C [address] Work Phone: XR Chest Single view Normal MK-Rslnyer-[address] Work Phone: TH CHEST 1 VIEWon 02-12-2021 TH CHEST 1 VIEW Patient Name: RIGO JEFFERSON STUDY: CHEST 1 VIEW; 02/12/2021 4:27 pm INDICATION: chest tube removal. COMPARISON: Prior 11:07 a.m. radiograph. ACCESSION NUMBER(S): [id number] ORDERING CLINICIAN: JESUSITA STEVENSON FINDINGS: Left basilar [...] Electronically signed by: МАРИНА MARCELO MD Normal [facility] CHEST 1 VIEW Patient Name: RIGO JEFFERSON STUDY: CHEST 1 VIEW; 02/12/2021 11:58 am INDICATION: chest tube wet seal. COMPARISON: 7:02 a.m. radiograph. ACCESSION NUMBER(S): [id number] ORDERING CLINICIAN: JESUSITA STEVENSON FINDINGS: Left basilar [...] Electronically signed by: МАРИНА MARCELO MD Normal [facility] CHEST 1 VIEW Patient Name: RIGO JEFFERSON STUDY: CHEST 1 VIEW; 02/12/2021 7:13 am INDICATION: POD 1 s/p diaphragm plication. COMPARISON: 02/11/2021. ACCESSION NUMBER(S): [id number] ORDERING CLINICIAN: SAW SALEEM FINDINGS: Left basilar [...] Electronically signed by: МАРИНА MARCELO MD Normal [facility] No Panel Informationon 02-11 JL-Kmbzwxt-X tena [employer] [facility] Work Phone: [facility] [place] [address] Patient Name: RIGO JEFFERSON : 1960 Date of Service: 02/11/2021 Patient Location: [place] [address] Patient Type: I Surgeon: Chuck Cook MD Report Type: Operative Reports PREOPERATIVE DIAGNOSIS: Chronic respiratory failure, left diaphragm dysfunction. POSTOPERATIVE DIAGNOSIS: Chronic respiratory failure, left diaphragm dysfunction. OPERATION/PROCEDURE: Laparoscopic left diaphragm plication with removal of previous diaphragm pacing wires. SURGEON: Chuck Cook MD DIRECTOR OF PARKS AND RECREATION(S): Saw Saleem MD. There was no available resident. ANESTHESIA: LOCATION: [facility]. CLINICAL NOTE: This is a [...] TT: 02/12/2021 12:44 PM EST DICTATION NUMBER: [id number] BRIE JOB NUMBER: [id number] CC: PT STATES NONE PCP Electronic Signatures: Chuck Cook) (Signed on 13-Feb-2021 10:15) Authored Unsigned, Draft (SYS GENERATED) (Entered on 12-Feb-2021 12:44) Entered Last Updated: 13-Feb-2021 10:15 by Chuck Cook) [facility] Order Reconciliationon 02-11 Order Reconciliation Page 1 Admission Reconciliation Document Reconciliation Type: Admission from OR requested on behalf of Saw Saleem (Physician) done by Saw Saleem) Admission from OR - Reconciliation: 11-Feb-2021 18:31 by: Saw Saleem) Home MedicationsEnteredLast Dose TakenReconciled with current Order Reconciliation Comment/ Additional Information Kristina 24 Hour Allergy oral tablet 1 tab(s) orally once a [id number]-Feb-2021 AM Reviewed and Held clarithromycin 250 mg oral tablet 250 milligram(s) orally once a day Clarithromycin Tablet (BIAXIN)DOSE = 250 mg Oral Every 24 Hoursclarithromycin 250 mg oral tablet continued as the inpatient order Clarithromycin diclofenac sodium 50 mg oral delayed release tablet 1 tab(s) orally 2 times a [id number] AM Reviewed and Held oxycodone-acetaminophen 5 mg-300 mg oral tablet 1 tab(s) orally 2 times a day [id number] AM Reviewed and Held Additional Current Orders [...] 15 minute(s)Clinician Notes: Carlota-operative order ONLY Normal [facility] Patient Profile - Preop v2on 02-11-2021 Patient Profile - Preop v2 Profile: Initial Info: How to be AddressedDel(1) Spoken Language PreferredEnglish (1) Source of Informationpatient Are you currently using the Personal Electronic Health Record or ALEXANDALEXAPayPlugno (1) Are you interested in learning more about [facility] for the management of your healthnot at this time Stated Reason for AdmissionL pulling of wires/pulling lung down [phone] Patient Belongingspatient educated regarding responsibility for personal items Medications Brought to Hospitalno General Health: Weight in kg109.8 kilogram(s) Weight in xmo003 pound(s) Weight Methodactual (measured) Scale Typestanding Height [...] Learning Preferencesverbal instruction Cultural Considerationsnone Developmental Considerationsnone Yarsanism Considerationsnone Other learner availableno Falls RiskPatient location auto qualifies him/her for HIGH RISK. Are there any cultural, spiritual, shinto practices/values/needs that are important for us to [...] Information Last Updated: 11-Feb-2021 12:07 by Jany Ann) References: 1. Data Referenced From Patient Profile - Adult v2 12-Dec-2017 16:00 Normal [facility] Preop Checkliston 02-11-2021 Preop Checklist Preop Checklist: Preop Checklist: Arrival [id number]-0932 Arrival Time11:48 Procedure TypeL laparoscopic diaphragm plication Temperature C36.1 degrees C Temperature F96.9 degrees F Heart Rate70 beats per minute Respiratory Rate12 breath per minute Blood Pressure Lxwagqxf197 mm/Hg Blood Pressure Jakcyrpjm44 mm/Hg NPO Ufltqi68-Nft-5168 00:00 ID Band Onyes Allergy Bandno known [...] Checklist Last Updated: 11-Feb-2021 12:02 by Jany Ann) Normal [facility] Radiologyon 02-11-2021 XR Chest Single view Please click on the link to view the study images Normal BN-Fwoahkg-[address] Work Phone: [facility] Surgical Pathology Depar tmenton 02-11-2021 [facility] Surgical Pathology Department Name RIGO JEFFERSON Pathologist: JACINTO MURRIETA MD Date of Procedure: 02/11/2021 Date Received: 02/12/2021 Date Reported 02/19/2021 Submitting Physician: CHUCK COOK M.D. Location: [facility] Copy To/Referring/Attending: CHUCK COOK M.D. Other External [...] this case. Clinical History: Physician Contact Number: [id number] Fixative (A): Fresh Clinical Diagnosis History: disorders of diaphragm Specimens Submitted As: A: PACING WIRE Gross Description: Received in formalin, labeled with the patient's name and hospital number, are multiple wires with a piece of adipose tissue attached measuring 3.0 x 1.6 x 1.0 cm. A photograph is taken. The attached soft tissue is submitted entirely in one cassette. EXB exb/02/12/2021 [facility] Department of Pathology [address] [place] [address] Normal [facility] Comment on above: Performed By: #### U HCS ####[facility] Surgical Pathology [id number] [place] [address] CORONAVIRUS 2019, SCREEN ASY MPTOMATICon 02-10-2021 SARS-CoV-2 (COVID-19) RNA BECCA+probe Ql (Unsp spec) Not detected Normal Not Detected [facility] Comment on above: Result Comment: . This [...] patient management decisions. Fact sheet for providers: https://www.fda.gov/media/905887/download Fact sheet for patients: https://www.fda.gov/media/939953/download This test has received FDA Emergency Use Authorization (EUA) and has been verified by [facility] ([facility]). This test is only authorized for the duration of time that circumstances exist to justify the authorization of the emergency use of in vitro diagnostic tests for the detection of SARS-CoV-2 virus and/or diagnosis of COVID-19 infection under section 564(b)(1) of the Act, 21 U.S.C. 360bbb-3(b)(1), unless the authorization is terminated or revoked sooner. [facility] is certified under CLIA-88 as qualified to perform high complexity testing. Testing is performed in the [facility] laboratories located at [address] [place] [address]. Performed By: #### C OVSC #### [address] [place] [address] Covid 19 Resultson 1 SARS-CoV-2 (COVID-19) RNA [...] be contacted by the [facility] of Health to see if any of your close [...] or Naproxen (Aleve) can also be used. Jmgq-cvu-cfdakyn cough and cold medicines can be used according to the instructions on the package. Some uzom-arj-loccgye medicines also contain acetaminophen. Make sure you [...] water are not available, use alcohol-based hand distribution supervisor. Avoid touching your eyes, nose, and [...] 24 alem (more content not included)... Normal [facility] CORONAVIRUS 2019, SCREEN ASY MPTOMATICon 02-09-2021 Lab Specimen Source Nasal, Nasopharyngeal Normal [facility] Comment on above: Performed By: #### C OVSC #### [facility] [address] [place] [address] Coronavirus 2019 RNA by PCR, Screening Asymptomticon 02-09-2021 Coronavirus 2019 RNA by PCR, Screening Asymptomtic Not detected Normal See Below LX-Birgmty-Q [facility] 107 Work Phone: Comment on above: [...] make patient management decisions.Fact sheet for providers: https://www.fda.gov/media/171355/downloadFact sheet for patients: https://www.fda.gov/media/856238/downloadThis test has received FDA Emergency Use Authorization (EUA) and has been verified by [facility] ([facility]). This test is only authorized for the duration of time that circumstances exist to justify the authorization of the emergency use of in vitro diagnostic tests for the detection of SARS-CoV-2 virus and/or diagnosis of COVID-19 infection under section 564(b)(1) of the Act, 21 U.S.C. 360bbb-3(b)(1), unless the authorization is terminated or revoked sooner. [facility] is certified under CLIA-88 as qualified to perform high complexity testing. Testing is performed in the [facility] laboratories located at [address] [place] [address]. BASIC METABOLIC PANELon 05-2 Anion gap [Moles/Vol] 13 mmol/L Normal 10 - 20 [facility] Comment on above: Performed By: #### B MP ####[id number] [facility] [place] [address] Calcium [Mass/Vol] 9.7 mg/dL Normal 8.6 - 10.6 [facility] Comment on above: Performed By: #### B MP ####[id number] [place] [address] Chloride [Moles/Vol] 108 mmol/L High 98 - 107 [facility] Comment on above: Performed By: #### B MP ####[id number] [place] [address] Creatinine [Mass/Vol] 1.04 mg/dL Normal 0.50 - 1.30 [facility] Comment on above: Performed By: #### B MP ####[id number] [place] [address] GFR- AM. >60 Normal >60 [facility] Comment on above: Result Comment: CALC ULATIONS OF ESTIMATED GFR ARE PERFORMED USING THE MDRD STUDY EQUATION FOR THE IDMS-TRACEABLE CREATININE METHODS. CLIN CHEM 2007;53:766-72 Performed By: #### B MP ####[id number] [place] [address] GFR-NON AM. >60 Normal >60 [facility] Comment on above: Performed By: #### B MP ####[id number] [place] [address] Glucose [Mass/Vol] 91 mg/dL Normal 74 - 99 [facility] Comment on above: Performed By: #### B MP ####[id number] [place] [address] HCO3 (Bld) [Moles/Vol] 29 mmol/L Normal 21 - 32 [facility] Comment on above: Performed By: #### B MP ####[id number] [place] [address] Potassium [Moles/Vol] 4.6 mmol/L Normal 3.5 - 5.3 [facility] Comment on above: Performed By: #### B MP ####[id number] [place] [address] Sodium [Moles/Vol] 145 mmol/L Normal 136 - 145 [facility] Comment on above: Performed By: #### B MP ####[id number] [place] [address] Urea nitrogen [Mass/Vol] 13 mg/dL Normal 6 - 23 [facility] Comment on above: Performed By: #### B MP ####[id number] [place] [address] CBCon 01-27-2021 Erythrocyte distribution width (RBC) [Ratio] 12.2 % Normal 11.5 - 14.5 [facility] Comment on above: Performed By: #### C BC ####[id number] [place] [address] Hematocrit (Bld) [Volume fraction] 46.7 % Normal 41.0 - 52.0 [facility] Comment on above: Performed By: #### C BC ####[id number] [place] [address] Hemoglobin (Bld) [Mass/Vol] 15.1 g/dL Normal 13.5 - 17.5 [facility] Comment on above: Performed By: #### C BC ####[id number] [place] [address] MCHC (RBC) [Mass/Vol] 32.3 g/dL Normal 32.0 - 36.0 [facility] Comment on above: Performed By: #### C BC ####[id number] [place] [address] MCV (RBC) [Entitic vol] 96 fL Normal 80 - 100 [facility] Comment on above: Performed By: #### C BC ####[id number] [place] [address] NUCLEATED RBC 0.0 /100 WBC Normal 0.0-0.0 [facility] Comment on above: Performed By: #### C BC ####[id number] [place] [address] Platelets (Bld) [#/Vol] 209 10*3/uL Normal 150 - 450 [facility] Comment on above: Performed By: #### C BC ####[id number] [place] [address] RBC 4.85 x10E12/L Normal 4.50 - 5.90 [facility] Comment on above: Performed By: #### C BC ####[id number] [place] [address] WBC (Bld) [#/Vol] 7.2 10*3/uL Normal 4.4 - 11.3 [facility] Comment on above: Performed By: #### C ####[id number] [place] [address] Follow Up (General Surgery)o n 01-27-2021 Follow [...] Due:27Apr2021;Ordered; For:Diaphragm dysfunction, HTN (hypertension); Ordered By:Chandan Colo; Electrocardiogram EKG; Status:Hold For - Scheduling; Requested for:27Jan2021; Perform:[facility] [place] [facility]; Due:27Apr2021;Ordered; For:Diaphragm dysfunction, HTN [...] pursue Fabian [address] 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 He was turning the device off 1-2 [...] MG Oral Tablet Vitals Vital Signs Recorded: 75Fzh1511 11:12AM Dzocfpmsyzs01.1 F Heart Rate77 Rcdswskx358 Qxlgoghsj60 Gdotoq162 lb BMI Uqhmrjlwlm77.64 kg/m2 BSA Calculated2.33 Tobacco Useb) No Physical [...] the r (more content not included)... Normal [employer] No Panel Informationon 01-27 http://[email or web address] 1:8080 /[email or web address]?R etrieveTestByDateTime?Sherita uxrPZ=[id number]&Date=&Time=13%3a24%3a34%3a 00&TestType=ECG&Site=1&Out putType=PDF&Ext=PDF UH-Fvigard-[address] Work Phone: Normal sinus rhythm MG-Ramos rgery-G [address] Work Phone: Normal OI-Cvpqlwv-S [address] Work Phone: [phone] 1 ZE-Uxdvthi-F [address] Work Phone: [phone] 1 NY-Qcwhsmq-Q [address] Work Phone: 205 1 EJ-Lubrirg-O [address] Work Phone: 147 1 KF-Dwhyfoa-D [address] Work Phone: 224 1 PB-Pyjhlqf-T [address] Work Phone: 11 1 BX-Lzlkeym-Q [address] Work Phone: 69 1 AI-Woudtxm-T [address] 107 Work Phone: 26 1 HX-Meqkdci-M [address] 107 Work Phone: 40 1 EI-Uctlbac-H [address] 107 Work Phone: 421 1 KS-Mybzyrv-Y [address] 107 Work Phone: 390 1 BB-Kfwymef-O [address] 107 Work Phone: 92 1 KL-Ltjlayb-P [address] 107 Work Phone: 154 1 VB-Vehgygy-N [address] 107 Work Phone: 70 1 ZN-Yyfjomt-P [address] 107 Work Phone: Radiologyon 01-27-2021 XR Chest 2 Views Normal MG-Surge ry-[address] Work Phone: TH CHEST 2 VIEW PA AND LATon 01-27-2021 TH CHEST 2 VIEW PA AND LAT Patient Name: RIGO JEFFERSON STUDY: TH CHEST 2 VIEW PA AND LAT; 01/27/2021 11:00 am INDICATION: chronic hypoventilation. COMPARISON: Chest radiograph 04/03/2019 ACCESSION NUMBER(S): [id number] ORDERING CLINICIAN: CHUCK COOK FINDINGS: Inspiratory and [...] Electronically signed by: ANGI CAICEDO MD Normal [facility] Tobacco Screening.on 021 Tobacco use status CPHS b) No IT-Oqtqhgz-[address] Work Phone: Tobacco Screening. b) No MG-Tino raysa-[address] Work Phone: Otheron 04-03-2019 XR Chest 2 views Interpreted by: ISAK04/03/19 14:06MRN: [id number] Name: RIGO JEFFERSON STUDY:CHEST 2 VIEW PA [...] Electronically signed by: ISAK 04/03/19 14:06 Normal QR-Sonohfn-X [address] Work Phone: Vital Signs Date Time Vital Sign Value Performing Clinician Facility 07-09-2024 10:24-0500 Body height 182.9 cm Mani Santoyo NP Work Phone: [facility] 07-09-2024 10:24-0500 Body mass index (BMI) [Ratio] 30.38 kg/m2 Mani Santoyo [employer] SAL[employer] COUNTER MANAGER Work Phone: [facility] 07-09-2024 10:24-0500 Body temperature 97.11 [degF] Mani Santoyo [employer] SALES COUNTER MANAGER Work Phone: [facility] 07-09-2024 10:24-0500 Body weight 101.61 kg Mani Santoyo [employer] SAL[employer] COUNTER MANAGER Work Phone: [facility] 07-09-2024 10:24-0500 Diastolic blood pressure 70 mm[Hg] Mani Santoyo [employer] SALES COUNTER MANAGER Work Phone: [facility] 07-09-2024 10:24-0500 Heart rate 81 /min Mani Santoyo [employer] SALES COUNTER MANAGER Work Phone: [facility] 07-09-2024 10:24-0500 Respiratory rate 16 /min Mani Santoyo [employer] SALES COUNTER MANAGER Work Phone: [facility] 07-09-2024 10:24-0500 SaO2% (BldA) [Mass fraction] 98 % Mani Santoyo [employer] SALES COUNTER MANAGER Work Phone: [facility] 07-09-2024 10:24-0500 Systolic blood pressure 110 mm[Hg] Mani Santoyo [employer] SALES COUNTER MANAGER Work Phone: [facility] 06-06-2024 15:30-0400 Body mass index (BMI) [Ratio] 29.43 kg/m2 Mani Santoyo [employer] SALES COUNTER MANAGER Work Phone: [facility] 06-06-2024 15:30-0400 Body temperature 97.39 [degF] Mani Santooy [employer] SALES COUNTER MANAGER Work Phone: [facility] 06-06-2024 15:30-0400 Body weight 98.43 kg Mani Santoyo [employer] SALES COUNTER MANAGER Work Phone: [facility] 06-06-2024 15:30-0400 Diastolic blood pressure 78 mm[Hg] Mani Santoyo [employer] SALES COUNTER MANAGER Work Phone: [facility] 06-06-2024 15:30-0400 Heart rate 73 /min Mani Waltonpatrick [employer] SALES COUNTER MANAGER Work Phone: [facility] 06-06-2024 15:30-0400 Respiratory rate 16 /min Mani Waltonpatrick [employer] SALES COUNTER MANAGER Work Phone: [facility] 06-06-2024 15:30-0400 SaO2% (BldA) [Mass fraction] 96 % Mani Waltonpatrick [employer] SALES COUNTER MANAGER Work Phone: [facility] 06-06-2024 15:30-0400 Systolic blood pressure 122 mm[Hg] Mani Santoyo [employer] SALES COUNTER MANAGER Work Phone: [facility] 05-03-2024 11:08-0400 Body height 182.9 cm Mani Waltonpatrick [employer] SALES COUNTER MANAGER Work Phone: [facility] 05-03-2024 11:08-0400 Body mass index (BMI) [Ratio] 28.89 kg/m2 Mani Santoyo [employer] SALES COUNTER MANAGER Work Phone: [facility] 05-03-2024 11:08-0400 Body temperature 98.2 [degF] Mani Waltonpatrick [employer] SALES COUNTER MANAGER Work Phone: [facility] 05-03-2024 11:08-0400 Body weight 96.62 kg Mani Waltonpatrick [employer] SALES COUNTER MANAGER Work Phone: [facility] 05-03-2024 11:08-0400 Diastolic blood pressure 74 mm[Hg] Mani Santoyo [employer] SALES COUNTER MANAGER Work Phone: [facility] Comment on above: 134/80 RT ARM LG CUFF 05-03-2024 11:08-0400 Heart rate 102 /min Mani Waltonpatrick [employer] SALES COUNTER MANAGER Work Phone: [facility] Comment on above: 95% O2 05-03-2024 11:08-0400 Systolic blood pressure 164 mm[Hg] Mani Santoyo [employer] SALES COUNTER MANAGER Work Phone: [facility] Comment on above: 134/80 RT ARM LG CUFF 02-12-2021 14:10-0400 SaO2% (BldA) [Mass fraction] 95 % No Pcp Required [facility] 02-12-2021 14:00-0400 Body temperature 97.16 [degF] No Pcp Required [facility] 02-12-2021 14:00-0400 Diastolic blood pressure 83 mm[Hg] No Pcp Required [facility] 02-12-2021 14:00-0400 Heart rate 81 /min No Pcp Required [facility] 02-12-2021 14:00-0400 Respiratory rate 18 /min No Pcp Required [facility] 02-12-2021 14:00-0400 Systolic blood pressure 131 mm[Hg] No Pcp Required [facility] 02-12-2021 03:31-0400 Body height 182.8 cm No Pcp Required [facility] 02-12-2021 03:31-0400 Body weight 109.8 kg No Pcp Required [facility] 01-27-2021 11:12-0400 Body mass index (BMI) [Ratio] 33.64 kg/m2 Chuck Cook MD Work Phone: BL-[address] Work Phone: 01-27-2021 11:12-0400 Body surface area Derived from formula 2.33 m2 Chuck Cook MD Work Phone: TB-Puqzcxg-[address] Work Phone: 01-27-2021 11:12-0400 Body temperature 96.1 [degF] Chuck Cook MD Work Phone: PO-Qlbnqbw-[address] Work Phone: 01-27-2021 11:12-0400 Body weight 112.49 kg Chuck Cook MD Work Phone: SU-Pmsktwv-[address] Work Phone: 01-27-2021 11:12-0400 Diastolic blood pressure 85 mm[Hg] Chuck Cook MD Work Phone: DY-Vuailia[address] Work Phone: 01-27-2021 11:12-0400 Heart rate 77 /min Chuck Cook MD Work Phone: JM-Ilucjir[address] Work Phone: 01-27-2021 11:12-0400 Systolic blood pressure 157 mm[Hg] Chuck Cook MD Work Phone: DJ-[address] Work Phone: 04-03-2019 15:37-0400 BMI (Body Mass Index) 30.11 kg/m2 Chandan Travon WH-Gchyfyw-[address]99 Work Phone: 04-03-2019 15:37-0400 Body Temperature 97.9 [degF] Chandan Travon LU-Zedsjee[address] Work Phone: 04-03-2019 15:37-0400 Body weight 100.7 kg Chandan Travon EX-Bkvspyb-Bvvpq ll 2099 Work Phone: 04-03-2019 15:37-0400 BP Diastolic 74 mm[Hg] Chandan Travon DC-Rcvvhxa-L[address]h [address]99 Work Phone: 04-03-2019 15:37-0400 BP Systolic 121 mm[Hg] Chandan Travon TC-Islnwhb-J[address]w ll [address]99 Work Phone: 04-03-2019 15:37-0400 BSA (Body Surface Area) 2.23 m2 Chandan Van Etten TT-Pedvkhf-[address] Work Phone: 04-03-2019 15:37-0400 Height 182.88 cm Chandan Travon GG-Dggfrmx-Jlopo [address]99 Work Phone: 04-03-2019 15:37-0400 Pulse (Heart Rate) 58 /min Chandan Travon KH-Tdzslqd-[address] Work Phone: Encounters Encounter Date Encounter Type Care Provider Facility Start: 08-24-2024 End: 08-24-2024 Clinisync Result Encounter Generic External Data Provider [facility] Unsolicited Start: 08-24-2024 End: 08-24-2024 Clinisync Result Encounter Generic External Data Provider [facility] External Department Unsolicited Start: 08-09-2024 End: 08-16-2024 Orders Only Mani Jimeneztrick [employer] SAL[employer] COUNTER MANAGER Work Phone: [facility] Comment on above: Chronic allergic rhi nitis Rosacea, unspecified Start: 08-07-2024 End: 08-07-2024 Refill Lianet Talamantes MA [facility] Comment on above: Chronic allergic rhi nitis Start: 07-16-2024 End: 07-16-2024 Refill Mani Martinezk [employer] SALES COUNTER MANAGER Work Phone: [facility] Comment on above: Chronic allergic rhi nitis Start: 07-11-2024 End: 07-11-2024 ambulatory [facility] Start: 07-09-2024 End: 07-09-2024 Bamboo flowsheet Mani Santoyo [employer] SAL[employer] COUNTER MANAGER Work Phone: [facility] Start: 07-09-2024 End: 07-09-2024 Bamboo flowsheet Mani Santoyo [employer] SALES COUNTER MANAGER Work Phone: [facility] Start: 07-09-2024 End: 07-09-2024 Office outpatient visit 10 minutes Mani Waltonpatrick [employer] SALES COUNTER MANAGER Work Phone: [facility] Comment on above: Class 1 obesity due to excess calories without serious comorbidity with body mass index (BMI) of 31.0 to 31.9 in adult (Primary Dx) Start: 07-09-2024 End: 07-09-2024 ambulatory MANI SANTOYO Not Available Start: 06-06-2024 End: 06-06-2024 Office outpatient visit 15 minutes Mani Santoyo [employer] SALES COUNTER MANAGER Work Phone: [facility] Comment on above: Chronic obstructive pulmonary disease, unspecified COPD type (CMS/HCC) (Primary Dx); Paralyzed hemidiaphragm; Class 1 obesity due to excess calories without serious comorbidity with body mass index (BMI) of 31.0 to 31.9 in adult Start: 06-06-2024 End: 06-06-2024 ambulatory MANI SANTOYO Not Available Start: 05-31-2024 End: 05-31-2024 Subsequent hospital visit by physician [facility] Work Phone: [facility] General Comment on above: Cervical vertebral f usion [M43.22] Start: 05-31-2024 End: 05-31-2024 Patient encounter procedure Juan Salazar MD Work Phone: [facility] Comment on above: Cervical vertebral f usion (Primary Dx); Spinal stenosis of cervical region Start: 05-21-2024 End: 05-21-2024 Orders Only Mani Santoyo [employer] SALES COUNTER MANAGER Work Phone: [facility] Comment on above: Class 1 obesity due to excess calories without serious comorbidity with body mass index (BMI) of 31.0 to 31.9 in adult (Primary Dx) Start: 05-15-2024 End: 05-15-2024 Refill Mani Martinezk [employer] SALES COUNTER MANAGER Work Phone: [facility] Start: 05-14-2024 End: 05-14-2024 ambulatory [facility] Start: 05-03-2024 End: 05-03-2024 Bamboo flowsheet Mani Santoyo [employer] SALES COUNTER MANAGER Work Phone: [facility] Start: 05-03-2024 End: 05-03-2024 Bamboo flowsheet Mani Santoyo [employer] SALES COUNTER MANAGER Work Phone: [facility] Start: 05-03-2024 End: 05-03-2024 Office outpatient visit 25 minutes Mani Martinezk [employer] SALES COUNTER MANAGER Work Phone: [facility] Comment on above: Chronic obstructive pulmonary disease, unspecified COPD type (CMS/HCC) (Primary Dx); Primary hypertension (CMS/HCC); Class 1 obesity due to excess calories without serious comorbidity with body mass index (BMI) of 31.0 to 31.9 in adult; Hyperlipidemia, unspecified hyperlipidemia type (CMS/HCC); Chronic seasonal allergic rhinitis; Primary hypogonadism in male Start: 05-03-2024 End: 05-03-2024 ambulatory MANI SANTOYO Not Available Start: 04-19-2024 End: 04-24-2024 Chart [...] Available Start: 08-20-2023 Patient encounter procedure Mani Santoyo [employer] SALES COUNTER MANAGER Work Phone: [facility] Start: 08-18-2023 End: 08-18-2023 ambulatory COREAS FAWWAD [...] Facility:H1 Start: 04-29-2022 End: 04-30-2022 ambulatory COREAS Mina CENTENO Facility:H1 Start: 01-27-2022 End: 01-28-2022 ambulatory COREAS Mina ALCANTARAMISis Facility:H1 Start: 04-02-2021 Postop follow up vis it related to original px No PCP None [address] Work Phone: Start: 02-20-2021 Chart Update No PCP None [facility] Work Phone: Start: 02-11-2021 End: 02-12-2021 Evaluation and management of inpatient Chuck Cook [facility] [address] 55 Rm [id number] 01 Start: 01-27-2021 Chart Update Chuck Cook MD Work Phone: [address] Work Phone: Start: 04-03-2019 Patient encounter procedure Chandan Cool QI-[address] Work Phone: Start: 01-12-2018 Patient encounter procedure Chandan Cool [address] Work Phone: Start: 11-28-2017 Patient encounter procedure Chandan Cool RT-[address] Work Phone: Start: 11-28-2017 Patient encounter procedure Chandan Cool [address] Work Phone: Procedures Date Procedure Procedure Detail Performing Clinician Start: 08-24-2024 ALL HEMOGLOBIN Generic External Data Provider Start: 05-31-2024 Radex spine cervical 4 or 5 views Juan Salazar MD Work Phone: Start: 11-01-2023 Colonoscopy Mani rm NP Work Phone: Start: 03-30-2019 Xray Chest 2 View PA + Lateral Chandan Cool Cholecystectomy Chandan Cool History of Gallbl[place] er Surgery Chandan Cool History of Knee Surgery Left Chandan Mtasonmo History of Neck Surgery Tammy Travon Tonsillectomy Chandan Matsonmo Plan of Treatment Date Care Activity Detail Author Start: 2034 RSV Vaccine (1 - 1-d ose 75+ series) RSV Vaccine (1 - 1-dose 75+ series) [facility] Start: 11-01-2033 Screening for malign ant neoplasm of colon [facility] Start: 10-30-2024 End: 10-30-2024 Patient encounter procedure 10/30/2024 8:30 AM EST Office Visit [facility] [address] [place] [phone] Mani Santoyo NP [address] [place] [phone] [facility] Start: 09-11-2024 End: 09-11-2024 Patient encounter procedure 09/11/2024 10:20 AM EST Office Visit LOCATED WITHIN [facility] [address] [place] [address] Husam Muñoz MD [address] [place] [address] LOCATED WITHIN [facility] Start: 08-18-2024 Medicare Annual Wellness (AWV) Medicare Annual Wellness (AWV) [facility] Start: 08-16-2024 End: 08-16-2024 Patient encounter procedure 08/16/2024 8:30 AM EST Office Visit [facility] [address] [place] [phone] Mani Santoyo NP [address] [place] [phone] [facility] Start: 08-06-2024 End: 08-06-2024 Patient encounter procedure 08/06/2024 10:00 AM EST [facility] [address] [place] [phone] Mani Santoyo NP [address] [place] [phone] [facility] Start: 07-26-2024 End: 07-26-2024 Patient encounter procedure 07/26/2024 10:30 AM EST Office Visit [facility] [address] [place] [address] Mani Santoyo, [employer] SALES COUNTER MANAGER [address] [place] [address] [facility] Start: 07-09-2024 End: 07-09-2024 [facility] Comment on above: [facility] Start: 05-06-2024 Covid-19 Vaccine ( season) Covid-19 Vaccine () [facility] Start: 05-06-2024 Influenza vaccination Influenza Vacc ine (#1) [facility] Start: 05-03-2024 End: 05-03-2025 CBC W Auto Differential panel - Blood CBC and differential Lab Routine Primary hypertension (CMS/HCC) Class 1 obesity due to excess calories without serious comorbidity with body mass index (BMI) of 31.0 to 31.9 in adult Expected: 05/03/2024 (Approximate), Expires: 05/03/2025 [facility] Comment on above: Expected: 05/03/2024 (Approximate), Expires: 05/03/2025 Start: 05-03-2024 End: 05-03-2025 Comprehensive metabolic 2000 panel - Serum or Plasma Comprehensive metabolic panel Lab Routine Primary hypertension (CMS/HCC) Class 1 obesity due to excess calories without serious comorbidity with body mass index (BMI) of 31.0 to 31.9 in adult Expected: 05/03/2024 (Approximate), Expires: 05/03/2025 [facility] Comment on above: Expected: 05/03/2024 (Approximate), Expires: 05/03/2025 Start: 05-03-2024 End: 05-03-2025 Microalbumin/Creatinine panel in random Urine Microalbumin / creatinine urine ratio Lab Routine Primary hypertension (CMS/HCC) Expected: 05/03/2024 (Approximate), Expires: 05/03/2025 [facility] Work Phone: Comment on above: Expected: 05/03/2024 (Approximate), Expires: 05/03/2025 Start: 05-03-2024 End: 05-03-2024 Patient encounter procedure 05/03/2024 11:00 AM EDT [facility] [address] [place] [address] Mani Santoyo NP [address] [place] [address] Chronic obstructive pulmonary disease, unspecified COPD type (CMS/HCC) (Primary Dx); Primary hypertension (CMS/HCC); Class 1 obesity due to excess calories without serious comorbidity with body mass index (BMI) of 31.0 to 31.9 in adult; Hyperlipidemia, unspecified hyperlipidemia type (CMS/HCC) [facility] Comment on above: Chronic obstructive pulmonary disease, unspecified COPD type (CMS/HCC) (Primary Dx); Primary hypertension (CMS/HCC); Class 1 obesity due to excess calories without serious comorbidity with body mass index (BMI) of 31.0 to 31.9 in adult; Hyperlipidemia, unspecified hyperlipidemia type (CMS/HCC) Start: 2024 Advance Directive Discussion Advance Directive Discussion [facility] Start: 2024 Pneumococcal Vaccine : 65+ (1 of 1 - PCV) Pneumococcal Vaccine: 65+ (1 of 1 - PCV) [facility] Start: 02-13-2024 Diabetes Screening Diabetes Screenin g [facility] Start: 02-11-2021 End: 02-12-2022 Ondansetron Injectable 4 mg IntraVenous Push Every 6 Hours PRN ; (ZOFRAN)DOSE = 4 mg IntraVenous Push Every 4 Hours, PRN Nausea & Vomiting Start: 11-Feb-2021 End: 11-Feb-2022 Ordered: 11-Feb-2021 Saw Saleem [facility] Start: 2014 Prostate specific antigen measurement Prostate Cancer Screening Discussion [facility] Start: 2009 Shingrix Vaccine (1 of 2) Shingrix Vaccine (1 of 2) [facility] Start: 2004 Screening for malign ant neoplasm of colon [facility] Start: 1994 Lipid panel Lipid Screening [facility] Start: 1978 Urine microalbumin profile DTaP,Tdap,Td Vaccine (1 - Tdap) [facility] Start: 1977 Anxiety Screening Anxiety Screening [facility] Start: 1977 Depression Screening Depression Scre ening [facility] Start: 1977 Hepatitis C screening Hepatitis C Sc reening [facility] Start: 1977 HIV screening [facility] Start: 1965 Pneumococcal Vaccine : 65+ Years (1 of 2 - PCV) Pneumococcal Vaccine: 65+ Years (1 of 2 - PCV) [facility] Start: 1959 Screening for malign ant neoplasm of colon [facility] End: 06-30-2025 MR Cervical spine WO contrast MRI CERVICAL SPINE WO IVCON Radiology Routine Spinal stenosis of cervical region 1 Occurrences starting 05/31/2024 until 06/30/2025 [facility] Comment on above: 1 Occurrences starti ng 05/31/2024 until 06/30/2025 End: 06-30-2025 XR CERV OTHER 4V AP/LAT/FLX/EXT XR CERV OTHER 4V AP/LAT/FLX/EXT Radiology Routine Cervical vertebral fusion 1 Occurrences starting 05/31/2024 until 06/30/2025 [facility] Work Phone: Comment on above: 1 Occurrences starti ng 05/31/2024 until 06/30/2025 XR CERV OTHER 4V AP/LAT/FLX/EXT XR CERV OTHER 4V AP/LAT/FLX/EXT Radiology Routine Cervical vertebral fusion 05/31/2024 2:54 PM EDT [facility] End: 05-24-2025 XR Lumbar spine Views W flexion and W extension XR LUMBAR MOTION 4V AP/LAT/ FLEX/EXT Radiology Routine Spinal stenosis of lumbar region with neurogenic claudication 1 Occurrences starting 04/24/2024 until 05/24/2025 [facility] Work Phone: Comment on above: 1 Occurrences starti ng 04/24/2024 until 05/24/2025 Payers Date Payer Category Payer Medicare [employer] [place] HMO [id number] 2022-Present [phone] [address] [place]IRUDH ROTHMAN [address] HMO [id number] 2022 Medicare (Managed Care) [employer] [id number] 2020 Unknown [id number] 2018 Unknown 1959 Medicare [id number] 1959 Unknown [id number] 2.16.840.1.716005.3.579.2. 59 1959 Unknown [id number] 2.16.840.1.273174.3.579.2. 1959 Unknown [id number] 2.16.840.1.843235.3.579.2. 59 1959 Unknown [id number] 2.16.840.1.762971.3.579.2. 1959 Unknown [id number] 2.16.840.1.116031.3.579.2. 59 1959 Unknown [id number] 2.16.840.1.052117.3.579.2. 1959 Unknown [id number] 2.16.840.1.135435.3.579.2. 59 1959 Unknown [id number] 2.16.840.1.024268.3.579.2. 3 1959 Unknown [id number] 2.16.840.1.463899.3.579.2. 593 1959 Unknown [id number] 2.16.840.1.718998.3.579.2. 593 1959 Unknown [id number] 2.16.840.1.766538.3.579.2. 1259 1959 Unknown [id number] 2.16.840.1.140572.3.579.2. 1259 1959 Unknown [id number] 2.16.840.1.142165.3.579.2. 9 1959 Unknown [id number] 2.16.840.1.347856.3.579.2. 1259 1959 Unknown [id number] 2.16.840.1.655273.3.579.2. 1259 1959 Unknown [id number] 2.16.840.1.973834.3.579.2. 1259 1959 Unknown [id number] 2.16.840.1.058278.3.579.2. 9 1959 Unknown [id number] 2.16.840.1.510921.3.579.2. 1259 1959 Unknown [id number] 2.16.840.1.555608.3.579.2. 1259 Social History Date Type Detail Facility Start: 05-31-2024 End: 06-05-2024 Former smoker Former smoker [facility] Tobacco smoking consumption unknown [facility] Start: 1960 Sex assigned at Not on file [facility] Start: 05-31-2024 End: 06-05-2024 Gender identity Not on file [facility] National Score (1-100), lower number is lower risk 74 [facility] Start: 12-29-2023 End: 05-03-2024 Tobacco smoking status NHIS Ex-smoker [facility] History of tobacco use Current smoker [facility] History of tobacco use Cigarette Smoker [facility] History of tobacco use Passive smoker [facility] Start: 12-29-2023 End: 05-03-2024 Tobacco use and exposure Smokeless tobacco non-user [facility] Start: 05-03-2024 End: 08-09-2024 Alcoholic beverage intake Lifetime non-drinker (finding) [facility] [...] [facility] NEGATED: Highlighted row - - [address] Work Phone: Functional Status Date Assessment Result Facility Functional observable [facility] NEGATED: Highlighted row Functional performance Functional status health issues are not documented Disease XE-[address] Work Phone: Mental Status Date Assessment Result Facility 02-12-2021 Cognitive functi ons [id number] [facility] NEGATED: Highlighted row Cognitive function [Interpretation] Cognitive status health issues are not documented Disease MF-[address] Work Phone: Clinical Notes 02-11-2021 [...] another script. An documented in this encounter [facility] 08-09-2024 Telephone encounter Note Patient stopped in and stated he is suppose to take 2 pills a day. 1 in morning and 1 at night. He only got a 30 supply and is about out. He would like another script. An [facility] 08-07-2024 Telephone encounter Note IZZY:07/09/2024 NOV:08/16/2024 [facility] 08-07-2024 Miscellaneous Notes IZZY:07/09/2024 NOV:08/16/2024 documented in this encounter [facility] 07-11-2024 Note [facility] Note [...] history of COPD (chronic obstructive pulmonary disease) (CMS/HCC), Hyperlipidemia, Hypertension, Pulmonary emphysema (CMS/HCC), and Sleep [...] x3, well devel (more content not included)... [facility] 07-09-2024 History of Present [...] adult - Primary Pt meets qualifications of [facility] 4731-07-09 for [...] 37.5 MG tablet documented in this encounter [facility] 06-06-2024 History of Present illness Narrative Images [...] breath at rest Pt meets qualifications of [facility] 4731-07-09 for [...] if no contraindications documented in this encounter [facility] 06-06-2024 Instructions Mani Santoyo NP - 06/06/2024 [...] call my office! documented in this encounter [facility] 05-31-2024 History of Present illness Narrative Radiology [...] PATIENT PRESENTS WITH AN IMPLANTABLE OR ATTACHED ROTOR COIL TAPER: No RADIOLOGY DEPARTMENT: General X-ray: Exam(s) Completed: Spine X-Ray(s): Cervical AP / LAT / FLEX-EXT and Lumbar AP / LAT / L5-S1 / FLEX-EXT PERIPHERAL IV DATA: Not applicable SIGNED BY: RT Lory(R) May 31, 2024 2:55 PM documented in this encounter [facility] 05-31-2024 History of Present illness Narrative SPINE SURGERY NEW PATIENT This is an in-person visit. PCP: No primary care provider on file. REFERRING PROVIDER: SUBJECTIVE CHIEF COMPLAINT: Hand software intern weakness Decreased sensation over left hemibody Lower [...] all muscle groups. Except mild bilateral hand software intern weakness. SENSORY: Creased sensation for light touch [...] patient was counseled regarding neck pain, hand software intern weakness, decreased sensation over left hemibody, lower back pain, left leg pain, walking difficulty, left leg numbness, lumbar spondylosis, lumbar canal stenosis, lumbar laminectomy with foraminotomy, adjacent segment cervical stenosis, MRI cervical spine. Total face to face time was 45 minutes. SIGNATURE: Juan Salazar MD PATIENT NAME: Rigo Jefferson DATE: May 31, 2024 TIME: 1:44 PM PAGER: documented in this encounter [facility] 05-21-2024 History of Present illness Narrative [...] for weight loss. Pt meets qualifications of [facility] 4731-07-09 for weight loss. BMI>30 or >27 [...] Starting weight 213 documented in this encounter [facility] 05-14-2024 Note [place] Note Reason for cardiology [...] history of COPD (chronic obstructive pulmonary disease) ([facility]), Hyperlipidemia, Hypertension, Pulmonary emphysema ([facility]), and Sleep apnea. Surgical History He [...] hemoglobin 16, hematocrit (more content not included)... [facility] 05-03-2024 History of Present illness Narrative Associated Problem(s): Chronic seasonal allergic rhinitis Cetirizine D and Flonase daily. Feels symptoms are well managed. Continue current regimen. Associated Problem(s): Primary hypogonadism in male Follows Endocrinology for testosterone replacement therapy. Associated Problem(s): Chronic pain syndrome R/T severe lumbar stenosis Pain management referred to [facility] for further management. Still following [...] R ALBUMIN GLOBULIN RATIO 1.0 Resulting Agency H [facility] COPD: Does not follow pulmonolgy; Has not had any PFT's recently. No medication at this time. States inhalers were too expensive. Feels his symptoms are well managed. Except in excess humidity and warmer weather. Chronic Lumbar Stenosis: Pain management referred to [facility] Still following with Pain Management- [...] at next OV. documented in this encounter [facility] 05-03-2024 Instructions Mani Santoyo NP - 05/03/2024 11:00 AM EDT Have lab work completed. Keep all follow up appointments. Call if you need anything! documented in this encounter [facility] 04-24-2024 Note HNO ID: [id number] Author: MICHELLE FLORENTINO APRN.M[employer]OR [employer] FIELD REPRESENTATIVE Service: ? Author Type: Nurse Practitioner Type: Progress Notes Filed: 04/24/2024 16:54 Note Text: Per Triage: Rigo Jefferson is a 64 year old male. that presents with symptoms of low back pain that radiates down the left leg. Previous spine surgery: Yes in [address] Sales. BMI: NA Out of state: No A1C: NA CMT: Injections Gate Person Mobic Oxycodone Studies (Reports unless indicated) MRI Lumbar 04/03/2024 -Severe central canal stenosis at L3-L4 and L4-L5 Disposition: Please schedule with first available lumbar spine surgeon with pre-visit x-ray. [facility] 04-24-2024 History of Present illness Narrative Per Triage: Rigo Jefferson is a 64 year old male. that presents with symptoms of low back pain that radiates down the left leg. Previous spine surgery: Yes in [address] Sales. BMI: NA Out of state: No A1C: NA CMT: Injections Gate Person Mobic Oxycodone Studies (Reports unless indicated) MRI Lumbar 04/03/2024 -Severe central canal stenosis at L3-L4 and L4-L5 Disposition: Please schedule with first available lumbar spine surgeon with pre-visit x-ray. Patient name: Rigo Jefferson Are you being referred by a Center for Spine Health Provider or Pain Management Provider at [facility]? No If answer is YES please [...] facility where the MRI/CT/myelogram was completed: [facility] Address: [address] [place] [address] MRI/CT/myelogram viewable in Epic: No If not, please provide [phone] to fax in imaging reports for review. [...] and/or physical therapy was completed Injections [facility] Address: [address] [place] [address] Have you tried any other kinds of [...] of where the surgery was completed: 2001 [facility] or Cannot recall Additional Comments documented in this encounter [facility] 04-19-2024 Note HNO ID: [id number] Author: ?, ?, ? Service: ? Author Type: ? Type: Progress Notes Filed: 04/24/2024 16:54 Note Text: Patient name: Rigo Jefferson Are you being referred by a [place] for Spine Health Provider or Pain Management Provider at [facility]? No If answer is YES please [...] facility where the MRI/CT/myelogram was completed: [facility] Address: [address] [place] [address] MRI/CT/myelogram viewable in Epic: No If not, please provide [phone] to fax in imaging reports for review. [...] and/or physical therapy was completed Injections [facility] Address: [address] [place] [address] Have you tried any other kinds of [...] [facility] or Cannot recall Additional Comments [facility] 12-09-2022 Note CONSULTATION PROCEDURE DATE: 12/09/2022 [...] our patients to inform us about any xmcf-dda-dxjkbvy medications or herbal remedies/nutritional supplements/alternative remedies. 2. [...] options with their primary care provider. [facility] 11-25-2022 Note CONSULTATION CONSULTATION DATE: 11/25/2022 [...] of his shoulders, bilaterally, without contrast. [facility] 09-03-2022 Note CONSULTATION CONSULTATION DATE: 09/03/2022 [...] three months' time, unless otherwise indicated. [facility] 06-01-2022 Note CONSULTATION CONSULTATION DATE: 06/01/2022 [...] three months. CC: Shaikh Helena M.D. [facility] 05-18-2022 Note CONSULTATION CONSULTATION DATE: 05/18/2022 [...] to proceed. CC: Shaikh Helena M.D. [facility] 05-18-2022 Note CONSULTATION PROCEDURE DATE: 05/18/2022 [...] be followed up in the office. [facility] 04-29-2022 Note CONSULTATION CONSULTATION DATE: 04/29/2022 [...] for his injections with Dr. Duncan. [facility] 01-27-2022 Note CONSULTATION CONSULTATION DATE: 01/27/2022 [...] in three month's time, unless otherwise indicated. [facility] Signed and Approved by: RAVINDER ANDERSEN . 02/04/2022 16:12:00 [facility] 02-12-2021 Note Send Summary: Discharge Summary Providers: Provider RoleProvider Name ReferringOndersChuck PrimaryRequired, No Pcp AttendingChuck Cook Note Recipients: Chuck Cook MD Discharge: Summary: [...] at Discharge: .Home Vital Signs: T PRBPSpO2 [id number]/8395% Date/Time02/12 12: 12: 12: 12: 12:10 Range(35.4C - 36.4C ) (77 - 99 ) (17 - 18 ) (127 - 147 )/ (83 - 91 ) (92% - 96% ) As of 12-Feb-2021 12:10:00, patient is on 2 L/min of oxygen Date: Weight/Scale Type:Height: 12-Feb-2021 01:49512.8 kg / gwkvotmm370.8 cm Hospital Course: 60 yo male with [...] Call to Schedule in: 2 weeks Location: [address] [place] [address] Discharge Medications: Home Medication clarithromycin 250 mg [...] Last Updated: 13-Feb-2021 10:13 by Chuck Cook) [facility] 02-11-2021 Note Post Operative Note: PreOp Diagnosis: diaphragm paralysis Post-Procedure Diagnosis: same Procedure: 1. laparoscopic L diaphragm plication 2. removal of bilateral diaphragm pacing wires 3. L pigtail chest tube placement Surgeon: Dr Chuck Cook Resident/Fellow/Other Chemistry Specialist: Dr Saw Saleem Anesthesia: GETA Estimated Blood [...] Last Updated: 12-Feb-2021 07:53 by Chuck Cook) [facility] 02-11-2021 Note History & Physical R eviewed: [...] Last Updated: 11-Feb-2021 15:50 by Chuck Cook) [facility] Chief complaint Narrative - Reported An interactive audio and video telecommunication system which permits real time communications between the patient (at the originating site) and provider (at the distant site) was utilized to provide this telehealth service.Post op [address] Work Phone: Evaluation note Constitutional: Well developed, awake/alert/oriented x3, no distress, alert and cooperativeSkin: warm and dryEyes: PERRL, EOMI, clear scleraENMT: MMMHead/Neck: NCATRespiratory/Thorax: good chest expansion, thorax symmetricCardiovascular: RRRGastrointestinal: Nondistended, soft, non-tender, no rebound tenderness or guardingMusculoskeletal: moves all extremitiesExtremities: well perfusedNeurological: grossly intactPsychological: Appropriate mood and behavior [facility] Evaluation note Diagnosis Spinal stenosis of lumbar region with neurogenic claudication- Primary Spinal stenosis, lumbar region, with neurogenic claudication [facility] Cervical vertebral fusion- Primary Other unspecified back disorder Spinal stenosis of cervical region Spinal stenosis in cervical region [facility] Cervical vertebral fusion Other unspecified back disorder [facility] Diagnosis Chronic obstructive pulmonary disease, unspecified COPD type (CMS/HCC)- Primary Paralyzed hemidiaphragm Class 1 obesity due to excess calories without serious comorbidity with body mass index (BMI) of 31.0 to 31.9 in adult documented in this encounter [facility] Healthcare[facility]* Diagnosis Primary hypertension (CMS/HCC)- Primary [...] Chronic allergic rhinitis documented in this encounter [facility]* Diagnosis Primary hypertension (CMS/HCC)- [...] Chronic allergic rhinitis documented in this encounter [facility]* Diagnosis Primary hypertension (CMS/HCC)- [...] Chronic allergic rhinitis documented in this encounter [facility] HealthcareEvaluation note* Diagnosis Class 1 obesity due [...] not he wants to follow-up with a digital campaign manager in our system. [address] Work Phone: Hospital Discharge instructions* [...] Follow Up Appointment 2:Physician/Dept/Service: [facility] follow-up / diaphragm pacer removal, hemidiaphragm plicationLocation: [address] [address] Number: [phone] * Gold Form - Other Clinicians:Other Clinician Instructions: Please take your medications as directed. Please follow-up with Dr. Cook and with your PCP as directed. You may remove dressings and shower Tuesday. No heavy lifting >20lbs or strenours activity for 3 weeks. If your symptoms return orworsen, please seek medical attention. Thank you for allowing us to participate in your care. [facility] (narrative)* Diagnostic Procedure Only (Routine) - New Request Specialty Diagnoses / Procedures Referred By Sharlene schuster Referred To Contact XR IMAGING Diagnoses Spinal stenosis of lumbar region with neurogenic claudication Procedures XR LUMBAR MOTION 4V AP/LAT/ FLEX/EXT RADEX SPINE LUMBOSACRAL MINIMUM 4 VIEWS Michelle Florentino, FOREIGN LAW CONSULTANT.MOTOR VEHICLE FIELD REPRESENTATIVE [address] [place] [address] Xr Imaging [id number] Referral ID Status Reason Start Date Expiration Date Visits Requested Visits Authorized [id number] New Request Auto-Generat ed Referral 04/24/2024 05/24/2025 [address] [facility] for referral (narrative)* Diagnostic Procedure Only (Routine) - Closed Specialty Diagnoses / Procedures Referred By Contac t Referred To Contact XR IMAGING Diagnoses Cervical vertebral fusion Procedures XR CERV OTHER 4V AP/LAT/FLX/EXT RADEX SPINE CERVICAL 4 [place] [address] [place] [address] Xr Imaging [id number] Referral ID Status Reason Start Date Expiration Date V isits Requested Visits Authorized [id number] Closed Auto-Generate d Referral 05/31/2024 06/30/2025 [address] [facility] for referral (narrative)* Consultation (Urgent) - Authorized Specialty Diagnoses / Procedures Referred By Contac t Referred To Contact Pulmonary Disease Diagnoses Chronic obstructive pulmonary disease, unspecified COPD type (CMS/HCC) Paralyzed hemidiaphragm Procedures [place] OFFICE/OUTPATIENT NEW HIGH MDM 60 MINUTES Mani Santoyo NP [address] [place] [phone] Aly Mosley MD [address] [place] [address] Referral ID Status Reason Start Date Expiration Date Visits Requested Visits Authorized [id number] Authorized Specialty Services Required 06/06/2024 12/03/2024 1 [...] Referral Specialty Diagnoses / Procedures Referred By Sharlene schuster Referred To Contact MR IMAGING Diagnoses Spinal stenosis of cervical region Procedures MRI CERVICAL SPINE WO IVCON MRI SPINAL CANAL CERVICAL W/[place] [address] [place] [id number] Mr Imaging [id number] Referral ID Status Reason Start Date Expiration Date Visits Requested Visits Authorized [id number] New Request Auto-Generat ed Referral 05/31/2024 06/30/2025 1 1 Specialty Diagnoses / Procedures Referred By Sharlene schuster Referred To Contact XR IMAGING Diagnoses Cervical vertebral fusion Procedures XR CERV OTHER 4V AP/LAT/FLX/EXT RADEX SPINE CERVICAL 4 [place] [address] [place] [id number] Xr Imaging [id number] Referral ID Status Reason Start Date Expiration Date V isits Requested Visits Authorized [id number] Closed Auto-Generate d Referral 05/31/2024 06/30/2025 1 [...] DATE CREATED AUTHOR AUTHOR'S ORGANIZ ATION 04/08/2021 [facility] DATE CREATED AUTHOR AUTHOR'S ORGANIZ ATION 12/31/2022 [facility] pital DATE CREATED AUTHOR AUTHOR'S ORGANIZ ATION 04/26/2024 [facility] DATE CREATED AUTHOR AUTHOR'S ORGANIZ ATION 07/10/2024 [facility] dical [facility] DATE CREATED AUTHOR AUTHOR'S ORGANIZ ATION 07/12/2024 [facility] Source Comments (unrecognize d section and content) In the event this informatio n is protected by the Federal Confidentiality of Alcohol and Drug Abuse Patient Records regulations: The Federal rules restrict any use of the information to criminally investigate or prosecute any alcohol or drug abuse patient.[facility] Hospital[facility] the event this information is protected by the Federal Confidentiality of Alcohol and Drug Abuse Patient Records regulations: The Federal rules restrict any use of the information to criminally investigate or prosecute any alcohol or drug abuse patient.[facility] HospitalIn the event this information is protected by the Federal Confidentiality of Alcohol and Drug Abuse Patient Records regulations: The Federal rules restrict any use of the information to criminally investigate or prosecute any alcohol or drug abuse patient.[facility] Care Teams (unrecognized sec tion and content) Electro Mechanical Technologist Relationship Specialty Start Date End Date Tonny Hernandez MD [address] [place] [address] Referring Pain Management 04/16/24 Electro Mechanical Technologist Relationship Specialty Start Date End Date Tonny Hernandez MD [address] [place] [address] Referring Pain Management 04/16/24 Electro Mechanical Technologist Relationship Specialty Start Date End Date Tonny Hernandez MD [address] [place] [address] Referring Pain Management 04/16/24 Electro Mechanical Technologist Relationship Specialty Start Date End Date Rosa Barker MD [address] [address] PCP - Devoted 09/05/22 Nikunj Yanez MD [address] [place] [address] PCP - General Family Medicine 04/09/24 Mani Santoyo NP [address] [place] [address] Nurse Practitioner Family Medicine 04/09/24 Electro Mechanical Technologist Relationship Specialty Start Date End Date Rosa Barker MD [address] [place] [address] PCP - Devoted 09/05/22 Nikunj Yanez MD [address] [place] [address] PCP - General Family Medicine 04/09/24 Mani Santoyo NP [address] [place] [address] Nurse Practitioner Family Medicine 04/09/24 Electro Mechanical Technologist Relationship Specialty Start Date End Date Rosa Barker MD [address] [facility] [address] [place] [address] PCP - Devoted 09/05/22 Nikunj Yanez MD [address] [place] [address] PCP - General Family Medicine 04/09/24 Mani Santoyo, GREGORY [address] [place] [address] Nurse Practitioner Family Medicine 04/09/24 Electro Mechanical Technologist Relationship Specialty Start Date End Date Rosa Barker MD [address] [facility] [address] [place] [address] PCP - Devoted 09/05/22 Nikunj Yanez MD [address] [place] [address] PCP - General Family Medicine 04/09/24 Mani Santoyo NP [address] [place] [address] Nurse Practitioner Family Medicine 04/09/24 Electro Mechanical Technologist Relationship Specialty Start Date End Date Rosa Barker MD [address] [place] [address] PCP - Devoted 09/05/22 Nikunj Yanez MD [address] [place] [address] PCP - General Family Medicine 04/09/24 Mani Santoyo NP [address] [place] [address] Nurse Practitioner Family Medicine 04/09/24 Electro Mechanical Technologist Relationship Specialty Start Date End Date Rosa Barker MD [address] [facility] [place] [address] PCP - Devoted 09/05/22 Nikunj Yanez MD [address] [place] [address] PCP - General Family Medicine 04/09/24 Mani Santoyo NP [address] [place] [address] Nurse Practitioner Family Medicine 04/09/24 Electro Mechanical Technologist Relationship Specialty Start Date End Date Rosa Barker MD [address] [facility] [address] [place] [address] PCP - Devoted 09/05/22 Nikunj Yanez MD [address] [place] [address] PCP - General Family Medicine 04/09/24 Mani Santoyo NP [address] [address] Nurse Practitioner Family Medicine 04/09/24 Electro Mechanical Technologist Relationship Specialty Start Date End Date Rosa Barker MD [address] [facility] [address] [place] [address] PCP - Devoted 09/05/22 Nikunj Yanez MD [address] [place] [address] PCP - General Family Medicine 04/09/24 Mani Santoyo NP [address] [phone] Nurse Practitioner Family Medicine 04/09/24 Reason for Visit (unrecogniz ed section and content) Reason Comments New Patient Reason Comments Radio Gen RMP Specialty Diagnoses / Procedures Referred By Contac t Referred To Contact XR IMAGING Diagnoses Cervical vertebral fusion Procedures XR CERV OTHER 4V AP/LAT/FLX/EXT RADEX SPINE CERVICAL 4 [place] [address] [place] [address] [place] [id number] Referral ID Status Reason Start Date Expiration Date V isits Requested Visits Authorized [id number] Closed Auto-Generate d Referral 05/31/2024 06/30/2025 1 [...] BE BASED ON THE PRIMARY CLINICAL RECORDS. [facility] [employer] provides no warranty or guarantee of the accuracy or completeness of information in this document.
[2024-09-07 11:12] LABS: Hemoglobin 17.8 g/dL (14.0-18.0)
[2024-09-07 12:00] LABS: Prostate Specific Antigen Dx 1.02 ng/mL (<=4.00)
[2024-09-08 04:07] LABS: Testosterone 183 ng/dL (264-916)
== END 2024-09-07 10:51 | disposition home or self-care (01) ==
LOC: LAB 10:51
PROVIDERS: Visit Provider Internal Medicine
DX: E78.5 Hyperlipidemia, unspecified (principal); E23.0 Hypopituitarism; R68.82 Decreased libido
CPT/HCPCS: 36415; 80061; 84153; 84403; 85018

== ENCOUNTER 2024-09-07 10:55 | Outpatient (OUT) | payer OTHER, SELFPAY ==
--- OUTSIDE RECORDS SUMMARY | 2024-09-07 11:11 | XMS_ITS | CCD ---
Author Organization [facility] Care Team Providers Care Powerhouse Attendant Name Role Phone Chandan Cool Unavailable Unavailable Osorio Sid William Unavailable Unavailable Required, No Pcp Unavailable Unavailable Ada Chuck Unavailable None, No PCP Unavailable Unavailable [facility] Primary Care Unavailable WEST, DR RADHA Gaxiola Consulting Unavailable DUNCAN ., DR LLUVIA Sheldon Attending Unavailable DUNCAN ., DR LLUVIA Sheldon Admitting Unavailable DUNCAN ., DR LLUVIA Sheldon Consulting Unavailable [facility], [facility] Primary Care Unavailable DUNCAN ., DR LLUVIA Sheldon Attending Unavailable DUNCAN ., DR LLUVIA Sheldon Consulting Unavailable DUNCAN ., DR LLUVIA Sheldon Admitting [facility] Primary Care Unavailable DUNCAN ., DR LLUVIA Sheldon Attending Unavailable DUNCAN ., DR LLUVIA Sheldon Consulting Unavailable DUNCAN ., DR LLUVIA Sheldon Admitting [facility] Primary Care Unavailable ANDERSEN .RAVINDER Consulting Unavailable DUNCAN ., DR LLUVIA Sheldon Admitting Unavailable DUNCAN ., DR LLUVIA Sheldon Attending [facility] Primary Care Unavailable ANDERSEN .RAVINDER Consulting Unavailable DUNCAN ., DR LLUVIA Sheldon Admitting Unavailable DUNCAN ., DR LLUVIA Sheldon Attending [facility] Primary Care Unavailable LAKSHMIPATHY ., NARENDRANATH Attending Nadira vailable LAKSHMIPATHY ., NARENDRANATH Admitting Nadira vailable [facility], [facility] Primary Care Unavailable LAKSHMIPATHY ., NARENDRANATH Attending Nadira vailable LAKSHMIPATHY ., NARENDRANATH Consulting Nadira vailable LAKSHMIPATHY ., NARENDRANATH Admitting Nadira vailable [facility], [facility] Primary Care Unavailable LAKSHMIPATHY ., NARENDRANATH [...] Nikunj Yanez MD Primary Care Provider Natanael LEGAL ARBITRATOR, Mani Unavailable [phone] JONATHAN NAGY Attending Unavailable JONATHAN NAGY Attending [...] 17 MCG/ACT Inhalation Aerosol Solution Refills: 0 [place] LEAD MATERIAL HANDLERDARIUS Chandan Start : 28-Nov-2017 Active lisinopril 20 [...] disease (2 sources) Atherosclerotic heart disease of [place] coronary artery without angina pectoris; Translations: [Atherosclerotic heart disease of [place] coronary artery without angina pectoris] Onset: 05-15-2024 [...] [Mass/Vol] 17.6 g/dL 14.0 - 18.0 g/dL [facility] Healthcare [facility] Healthcare Office Visiton 07-11-2024 Follow-up visit [id number] Rigo Jefefrson 1960 M Date Provider Department Center 07/11/2024 [id number], ELIAS Sims Family History Problem Relation Age of Onset Diabetes Mother Hypertension Mother Hypertension Father Coronary artery disease Brother Hypertension Brother Diabetes Brother Family Status - Relation Status Age at Mother Father Brother Level of Service:94292 CT OFFICE/OUTPATIENT ESTABLISHED MOD MDM 30 MIN Reason for Visit and Comments: Coronary Artery Disease [187] Hypertension [346959] - Started on atenolol at last visit, had echo in may Hyperlipidemia [182] Shortness of Breath [443856] - PT ONLY HAS ONE LUNG Normal [facility] 36on 06-11-2024 36 From: Elias Spaulding [...] in his pulse ox with exercise Normal [facility] Telephoneon 06-11-2024 Telephone [id number] Rigo Jefferson 1960 Date Provider Department Center 06/11/2024 [id number] LOMBARDO Family History Problem Relation Age of Onset Diabetes Mother Hypertension Mother Hypertension Father Coronary artery disease Brother Hypertension Brother Diabetes Brother Family Status - Relation Status Age at Mother Father Brother Normal [facility] No Panel Informationon 05-31 Radiology Study observation (narrative) [facility] XR CERV OTHER 4V AP/LAT/FLX/ EXTon 05-31-2024 IMPRESSION: Severe degenerative disc disease C4-C5. Solid bony fusion C5-C7. Subsurface Augmentee Operator: PSCB Transcribe Date/Time: May 31 2024 9:27P [...] soft tissue swelling. [facility] Provider, [facility] - 05/31/2024 * * *Final [...] disc disease C4-C5. Solid bony fusion C5-C7. Subsurface Augmentee Operator: [facility] Transcribe Date/Time: May 31 2024 9:27P Dictated by : JENN SANTOYO MD This examination was interpreted and the report reviewed and electronically signed by: JENN SANTOYO MD on May 31 2024 9:29PM EST [facility] XR CERV OTHER 4V AP/LAT/FLX/ EXTOrdered By: [facility]cf Provider on 05-31-2024 [facility] XR Lumbar spine Views W flex ion and W extensionon 05-31-2024 IMPRESSION: Mild to moderate multilevel degenerative change lumbar spine and suspected diffuse intrahepatic skeletal hyperostosis. Subsurface Augmentee Operator: PSCB Transcribe Date/Time: May 31 2024 9:29P Dictated by : JENN SANTOYO MD This examination was interpreted and the report reviewed and electronically signed by: JENN SANTOYO MD on May 31 2024 9:31PM EST [facility] * * *Final Report* * * [...] No acute fracture or compression deformity identified. [facility] Provider, [facility] - 05/31/2024 * * *Final [...] spine and suspected diffuse intrahepatic skeletal hyperostosis. Subsurface Augmentee Operator: PSCMando Transcribe Date/Time: May 31 2024 9:29P Dictated by : JENN SANTOYO MD This examination was interpreted and the report reviewed and electronically signed by: JENN SANTOYO MD on May 31 2024 9:31PM EST [facility] Office Visiton 05-14-2024 Follow-up visit [id number] Rigo Jefferson 1960 M Date Provider Department Center 05/14/2024 [id number]-CQFUNWELIAS SPAULDING CARD [facility] Family History Problem Relation Age of Onset Diabetes Mother Hypertension Mother Hypertension Father Coronary artery disease Brother Hypertension Brother Diabetes Brother Family Status - Relation Status Age at Mother Father Brother Level of Service:89977 CT OFFICE/OUTPATIENT NEW MODERATE MDM 45 MINUTES Reason for Visit and Comments: Hypertension [983844] - New patient to re-establish care. Ref for hypertension. Used to be on antihypertensives but is currently on none. Palpitations [100855] - Sometimes Shortness of Breath [187700] - Has 1 lung, hx of COPD, pulmonary emphysema Dizziness [987977] Normal [facility] MRI SHOULDER LT WO CONon MRI [...] by: DOMINGA FLYNN Date: 2022-12-08 10:25 Normal [facility] MRI SHOULDER RT WO CONon MRI SHOULDER [...] DOMINGA FLYNN Date: 2022-12-08 10:35 Normal [facility] XR CSPINE OBL FLEX_EXTon XR CSPINE [...] he wants to follow-up with a lead nitrate processor in our system. Provider Impressions He is [...] he wants to follow-up with a lead nitrate processor in our system. Chief Complaint An interactive [...] he wants to follow-up with a lead nitrate processor in our system. Active Problems COPD (chronic [...] MG Oral Tablet Results/Data Xray Chest 1 [id number] 04:27PMJesusita Stevenson Test NameResultFlagReference Xray Chest 1 View(Report) FINAL REPORT Interpreted by: МАРИНА MARCELO MD 02/12/21 16:52 Patient Name: RIGO JEFFERSON STUDY: CHEST 1 VIEW; 02/12/2021 4:27 pm INDICATION: chest tube removal. COMPARISON: Prior 11:07 a.m. radiograph. ACCESSION NUMBER(S): [id number] ORDERING CLINICIAN: JESUSITA STEVENSON FINDINGS: Left basilar [...] Apr 02 2021 5:38PM EST (Author) Normal [employer] Admission Risk Screen - Adul ton 02-12-2021 Admission Risk Screen - Adult Allergies: Allergies: No Known Allergies: Patient Verification: New W ID Band Applied in my Departmentno Type of ID Patient is WearingW wristband, but not applied here Patient Transferred from Other Facility ([facility], [facility],etc)no Patient Identity Verified Bypatient ID [...] AlertFor Ebola-like Symptoms: Isolate Patient and Notify Provider/Head Cleaning Porter For Contact: Notify Provider/Head Cleaning Porter Advance Directive: Advance Directive/DNRno (1) Advance Directive [...] Learning Preferencesverbal instruction Cultural Considerationsnone Developmental Considerationsnone Sabianism Considerationsnone Learning Assessment (Other Learner): Other learner availableno Depression Screen: During the past month, have you often been bothered by feeling down, depressed or hopelessno (1) During the past month, have you often had little interest or pleasure in doing thingsno (1) Have you had any thoughts of harming anyone elseno (1) [place] Suicide: Risk Screen Not Applicable/Able to Answerable to be screened In the Past Month: Have you wished you were or could go to sleep and not wake upno(1) In the Past Month: Have you had any actual thoughts of killing yourself no(1) Lifetime: Have you ever done, started to do, or prepared to do anything to end your lifeno(1) [place] Suicide Risknegative Adult Nutrition Screen: Have you [...] Pain (nonverbal)verbalization (more content not included)... Normal [facility] BASIC METABOLIC PANELon 02-03 Anion gap [Moles/Vol] 15 mmol/L Normal 10 - 20 [facility] Comment on above: Performed By: #### B MP #### [facility] [address] [place] [address] Calcium [Mass/Vol] 9.5 mg/dL Normal 8.6 - 10.6 [facility] Comment on above: Performed By: #### B MP #### [facility] [address] [place] [address] Chloride [Moles/Vol] 102 mmol/L Normal 98 - 107 [facility] Comment on above: Performed By: #### B MP #### [facility] [address] [place] [address] Creatinine [Mass/Vol] 0.98 mg/dL Normal 0.50 - 1.30 [facility] Comment on above: Performed By: #### B MP #### [facility] [address] [place] [address] GFR- AM. >60 Normal >60 [facility] Comment on above: Result Comment: CALC ULATIONS OF ESTIMATED GFR ARE PERFORMED USING THE MDRD STUDY EQUATION FOR THE IDMS-TRACEABLE CREATININE METHODS. CLIN CHEM 2007;53:766-72 Performed By: #### B MP #### [facility] [address] [place] [address] GFR-NON AM. >60 Normal >60 [facility] Comment on above: Performed By: #### B MP #### [facility] [address] [place] [address] Glucose [Mass/Vol] 133 mg/dL High 74 - 99 [facility] Comment on above: Performed By: #### B MP #### [facility] [address] [place] [address] HCO3 (Bld) [Moles/Vol] 24 mmol/L Normal 21 - 32 [facility] Comment on above: Performed By: #### B MP #### [facility] [address] [place] [address] Potassium [Moles/Vol] 4.3 mmol/L Normal 3.5 - 5.3 [facility] Comment on above: Performed By: #### B MP #### [facility] [address] [place] [address] Sodium [Moles/Vol] 137 mmol/L Normal 136 - 145 [facility] Comment on above: Performed By: #### B MP #### [facility] [address] [place] [address] Urea nitrogen [Mass/Vol] 17 mg/dL Normal 6 - 23 [facility] Comment on above: Performed By: #### B MP #### [facility] [address] [place] [address] CBCon 02-12-2021 Erythrocyte distribution width (RBC) [Ratio] 12.1 % Normal 11.5 - 14.5 [facility] Comment on above: Performed By: #### C BC #### [facility] [address] [place] [address] Hematocrit (Bld) [Volume fraction] 45.8 % Normal 41.0 - 52.0 [facility] Comment on above: Performed By: #### C BC #### [facility] [address] [place] [address] Hemoglobin (Bld) [Mass/Vol] 15.0 g/dL Normal 13.5 - 17.5 [facility] Comment on above: Performed By: #### C BC #### [facility] [address] [place] [address] MCHC (RBC) [Mass/Vol] 32.8 g/dL Normal 32.0 - 36.0 [facility] Comment on above: Performed By: #### C BC #### [facility] [address] [place] [address] MCV (RBC) [Entitic vol] 94 fL Normal 80 - 100 [facility] Comment on above: Performed By: #### C BC #### [facility] [address] [place] [address] NUCLEATED RBC 0.0 /100 WBC Normal 0.0-0.0 [facility] Comment on above: Performed By: #### C BC #### [facility] [address] [place] [address] Platelets (Bld) [#/Vol] 228 10*3/uL Normal 150 - 450 [facility] Comment on above: Performed By: #### C BC #### [facility] [address] [place] [address] RBC 4.85 x10E12/L Normal 4.50 - 5.90 [facility] Comment on above: Performed By: #### C BC #### [facility] [address] [place] [address] WBC (Bld) [#/Vol] 12.8 10*3/uL High 4.4 - 11.3 [facility] Comment on above: Performed By: #### C BC #### [facility] [address] [place] [address] Clinical Event Note-POCon Clinical Event Note-POC Clinical [...] care per primary team Nataliia Ferris MD [facility] resident overnight Electronic Signatures: Nataliia Ferris ( (Resident)) (Signed 12-Feb-2021 00:41) Authored: Clinical Event Note Last Updated: 12-Feb-2021 00:41 by Nataliia Ferris (Resident)) Normal [facility] Daily Progress Note-Surgeryo n 02-12-2021 [...] yet. Objective Data: Objective Information: T PRBPSpO2 Value35.11299896/8695% Date/Time02/12 6:4902/12 6:4902/12 6:4902/12 6:4902/12 6:49 Range(35.4C - 36.4C ) (77 - 99 ) (17 - 18 ) (127 - 147 )/ (86 - 91 ) (95% - 96% ) Pain reported at 02/12 2:54: 6 = Moderate ---- Intake and Output ----- Mn/Dy/Year TimeIntakeOutputNet Feb 12, 2021 6:00 [id number] Feb 11, 2021 10:00 [id number] The Intake and Output Totals for the last 24 hours are: IntakeOutputNet [id number] Physical Exam by System: Constitutional: Well developed, [...] Updated: 13-Feb-2021 10:13 by Chuck Cook) Normal [facility] Discharge Planning Wjiy8qc 0 02-12-2021 Discharge Planning Note2 Discharge Planning: Needs Prior to Discharge (ex. Home Care Orders, IV/O2 prescriptions) Follow up appointments Discharge Barriers (ex. Avoidable days, wait guardianship, pt refuse leave) None Planned Dispositionhome Discharge DestinationHome [facility] [place] Explainedyes preference Anticipated Discharge Nxgz45-Nlo-2400 Discharge Planning 02/12/2021 0135 Discharge Plan Patient transferred from [place] [address] from PACU for diaphragm plication. Pt is A&O times 4. at 3 liters oxygen. Pt denies any medical office asst use at home. 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 Pt have valuable [...] needs when medically ready. [facility] Status: Inpatient Discharge disposition: Home Potential Barriers: none ADOD: 02/12. building services coordinator will continue to follow for discharge planning needs. Franny Gilliam RN, Transitional [employer]/[facility], pager [phone] Discharge note: 02/12/21 @ 1735: PT discharged home at this time. pts peripheral IV taken out prior to DC. pt given DC instructions. pt verbalized understanding. pt refused transport and walked downstairs with his son.---Erika miramontes RN Assessment: Discharge Planning Assessment [id number] Primary Contact Name and NumberAda [phone](1) Stated Reason for Admissiondiaphragm plication(2) [place] (2) Lives Withparent(s)(2) Living Arrangementshouse(2) Resource/Environmental Concernsnone(2) Anticipated Transition [place](2) Services Anticipated at Transitionnone(2) Discharge Documentation: Discharge/Transfer Date/Fdee29-Wja-2620 17:35 Discharge Modeambulatory Discharged Accompanied Byfamily member [...] Profile - Adult v2 12-Feb-2021 01:31 Normal [facility] Discharge [id number] 021 Discharge Profile2 Discharge Orders: Anticipated Discharge Date: Anticipated Discharge Mich45-Gqx-9399 DNAR: DNAR Status: none Call Provider If [...] hemidiaphragm plication Call to Schedule in2 weeks [id number] Phone [phone] Other Clinician Instructions: Other Instructions: Other Clinician [...] Appointments, Other Clinician Instructions, Gold Form - Diamond Assorter Summary Last Updated: 12-Feb-2021 15:27 by Jesusita Stevenson (DO (Resident)) Normal [facility] Laboratory - Chemistry and C hemistry - challengeon 02-12-2021 Anion gap [Moles/Vol] 15 mmol/L 10 - 20 IO-Pekjzom-A reen [facility] Work Phone: Calcium [Mass/Vol] 9.5 mg/dL 8.6 - 10.6 MG-Tino raysa-[facility] Work Phone: Chloride [Moles/Vol] 102 mmol/L 98 - 107 MH-Iyxzjda-U reen [facility] Work Phone: CO2 [Moles/Vol] 24 mmol/L 21 - 32 MG-Surger y-[facility] Work Phone: Creatinine [Mass/Vol] 0.98 mg/dL See Below RY-Wcqoagd-B reen [facility] Work Phone: Comment on above: Reference Range: 0.5 0 - 1.30 Glucose [Mass/Vol] 133 mg/dL above high threshold 74 - 99 TU-Bwtfwfq-I reen [facility] Work Phone: Potassium [Moles/Vol] 4.3 mmol/L 3.5 - 5.3 OR-Ponoyml-L reen [facility] Work Phone: Sodium [Moles/Vol] 137 mmol/L 136 - 145 MG-Tino raysa-[address] Work Phone: Urea nitrogen [Mass/Vol] 17 mg/dL 6 - 23 MM-Lfhbbhs-T [address] Work Phone: Laboratory - Hematology and Cell countson 02-12-2021 Erythrocyte distribution width (RBC) [Ratio] 12.1 % See Below UP-Bndrrit-M [address] Work Phone: Comment on above: Reference Range: 11. 5 - 14.5 Hematocrit (Bld) [Volume fraction] 45.8 % See Below YZ-Cvnknop-R [address] Work Phone: Comment on above: Reference Range: 41. 0 - 52.0 Hemoglobin (Bld) [Mass/Vol] 15.0 g/dL See Below AC-Cycqdcl-U [address] Work Phone: Comment on above: Reference Range: 13. 5 - 17.5 MCHC (RBC) [Mass/Vol] 32.8 g/dL See Below ZP-Hytfqvh-F re[address] [facility] Work Phone: Comment on above: Reference Range: 32. 0 - 36.0 MCV (RBC) [Entitic vol] 94 fL 80 - 100 YC-Cxggqxp-G [address] Work Phone: Platelets (Bld) [#/Vol] 228 10*3/uL 150 - 450 OC-Juhnnew-[facility] Work Phone: RBC (Bld) [#/Vol] 4.85 {x10E12/L} See Below MG -Surgery-G [address] Work Phone: Comment on above: Reference Range: 4.5 0 - 5.90 WBC (Bld) [#/Vol] 12.8 10*3/uL above high threshold 4.4 - 11.3 CS-Yiflfpw-X [address] Work Phone: No Panel Informationon 02-12 >60 >60 WY-Jvraxgl-H [address] [facility] Work Phone: Comment on above: CALCULATIONS OF LANRE MATED GFR ARE PERFORMED USING THE MDRD STUDY EQUATION FOR THE IDMS-TRACEABLE CREATININE METHODS. CLIN CHEM 2007;53:766-72 0.0 {/100_WBC} 0.0-0.0 MG-Surgery -G [facility] Work Phone: Order Reconciliationon 02-12 Order [...] every 6 hours as needed for pain Kritsina 24 Hour Allergy oral tablet 1 tab(s) orally once a day clarithromycin 250 mg oral tablet 250 milligram(s) orally once a day diclofenac sodium 50 mg oral delayed release tablet 1 tab(s) orally 2 times a day oxycodone-acetaminophen 5 mg-300 mg oral tablet 1 tab(s) orally 2 times a day Normal [facility] Patient Profile - Adult v2on 02-12-2021 Patient Profile - Adult v2 Profile: Initial Info: How to be AddressedDel(1) Spoken Language PreferredEnglish (1) Stated Reason for Admissiondiaphragm plication Patient Belongingsremains with patient Patient Belongings Remaining with Patientcash/credit card; clothing Arrived FromOR Medications Brought to Hospitalno Are you currently using the Personal Electronic Health Record or [employer] (1) Wants Family/Rep Notified of Admissionyes, primary contact Notify PCPnotify PCP Informed of Patient Visiting Rightsyes General Health: Blood Avoidance/Restrictionsnone (1) Previous Transfusion Reactionno(2) Weight in kg109.8 kilogram(s)(3) Weight in cif238 pound(s) Weight Methodactual (measured) (3) Scale Typestanding [...] From 1. Vital Signs 11-Feb-2021 12:02 Normal [facility] Radiologyon 02-12-2021 XR Chest Single view Normal NF-Zadvgry-A [address] Work Phone: XR Chest Single view Normal ZQ-Iyfmmpb-Q [address] Work Phone: XR Chest Single view Normal BP-Fenmdcv-Z [address] Work Phone: TH CHEST 1 VIEWon 02-12-2021 TH CHEST 1 VIEW Patient Name: RIGO JEFFERSON STUDY: CHEST 1 VIEW; 02/12/2021 4:27 pm INDICATION: chest tube removal. COMPARISON: Prior 11:07 a.m. radiograph. ACCESSION NUMBER(S): [id number] ORDERING CLINICIAN: JESUSITA STEVENSON FINDINGS: Left basilar [...] seal. COMPARISON: 7:02 a.m. radiograph. ACCESSION NUMBER(S): [id number] ORDERING CLINICIAN: JESUSITA STEVENSON FINDINGS: Left basilar [...] s/p diaphragm plication. COMPARISON: 02/11/2021. ACCESSION NUMBER(S): [id number] ORDERING CLINICIAN: SAW SALEEM FINDINGS: Left basilar [...] Electronically signed by: МАРИНА MARCELO MD Normal [facility] No Panel Informationon 02-11 KE-Cyktpgd-O tena [place] [facility] Work Phone: Operative Reports - [facility] [place] [address] Patient Name: RIGO JEFFERSON : 1960 Date of Service: 02/11/2021 Patient Location: [place] [address] Patient Type: I Surgeon: Chuck Cook MD Report Type: Operative Reports PREOPERATIVE DIAGNOSIS: Chronic respiratory failure, left diaphragm dysfunction. POSTOPERATIVE DIAGNOSIS: Chronic respiratory failure, left diaphragm dysfunction. OPERATION/PROCEDURE: Laparoscopic left diaphragm plication with removal of previous diaphragm pacing wires. SURGEON: Chuck Cook MD BUILDING COMPONENTS DESIGNER(S): Saw Saleem MD. There was no available resident. ANESTHESIA: LOCATION: [facility]. CLINICAL NOTE: This is a [...] TT: 02/12/2021 12:44 PM EST DICTATION NUMBER: [id number] BRIE JOB NUMBER: [id number] CC: PT STATES NONE PCP Electronic Signatures: Chuck Cook) (Signed on 13-Feb-2021 10:15) Authored Unsigned, Draft (SYS GENERATED) (Entered on 12-Feb-2021 12:44) Entered Last Updated: 13-Feb-2021 10:15 by Chuck Cook) [facility] Order Reconciliationon 02-11 Order Reconciliation Page 1 Admission Reconciliation Document Reconciliation Type: Admission from OR requested on behalf of Saw Saleem (Physician) done by Saw Saleem) Admission from OR - Reconciliation: 11-Feb-2021 18:31 by: Saw Saleem) Home MedicationsEnteredLast Dose TakenReconciled with current Order Reconciliation Comment/ Additional Information Kristina 24 Hour Allergy oral tablet 1 tab(s) orally once a [id number]-[id number]-Feb-2021 AM Reviewed and Held clarithromycin 250 mg oral tablet 250 milligram(s) orally once a day Clarithromycin Tablet (BIAXIN)DOSE = 250 mg Oral Every 24 Hoursclarithromycin 250 mg oral tablet continued as the inpatient order Clarithromycin diclofenac sodium 50 mg oral delayed release tablet 1 tab(s) orally 2 times a [id number]-Mof-093591-Kkn-2860 AM Reviewed and Held oxycodone-acetaminophen 5 mg-300 mg oral tablet 1 tab(s) orally 2 times a day [id number] AM Reviewed and Held Additional Current Orders [...] 15 minute(s)Clinician Notes: Carlota-operative order ONLY Normal [facility] Patient Profile - Preop v2on 02-11-2021 Patient Profile - Preop v2 Profile: Initial Info: How to be AddressedDel(1) Spoken Language PreferredEnglish (1) Source of Informationpatient Are you currently using the Personal Electronic Health Record or [employer]imno (1) Are you interested in learning more about [facility] for the management of your healthnot at this time Stated Reason for AdmissionL pulling of wires/pulling lung down Primary Contact Name and Number[facility] [phone] Patient Belongingspatient educated regarding responsibility for personal items Medications Brought to Hospitalno General Health: Weight in kg109.8 kilogram(s) Weight in dvu898 pound(s) Weight Methodactual (measured) Scale Typestanding Height [...] Learning Preferencesverbal instruction Cultural Considerationsnone Developmental Considerationsnone Sabianism Considerationsnone Other learner availableno Falls RiskPatient location auto qualifies him/her for HIGH RISK. Are there any cultural, spiritual, buddhism practices/values/needs that are important for us to [...] Profile - Adult v2 12-Dec-2017 16:00 Normal [facility] Preop Checkliston 02-11-2021 Preop Checklist Preop Checklist: Preop Checklist: Arrival [id number] Arrival Time11:48 Procedure TypeL laparoscopic diaphragm plication Temperature C36.1 degrees C Temperature F96.9 degrees F Heart Rate70 beats per minute Respiratory Rate12 breath per minute Blood Pressure Qkudgbse161 mm/Hg Blood Pressure Hwrwrkepj24 mm/Hg NPO [id number] 00:00 ID Band Onyes Allergy Bandno known [...] Updated: 11-Feb-2021 12:02 by Jany Ann) Normal [facility] Radiologyon 02-11-2021 XR Chest Single view Please click on the link to view the study images Normal SH-Vnnwmlc[address] Work Phone: [facility] Surgical Pathology Depar tmenton 02-11-2021 [facility] Surgical Pathology Department Name RIGO JEFFERSON Pathologist: JACINTO MURRIETA MD Date of Procedure: 02/11/2021 Date Received: 02/12/2021 Date Reported 02/19/2021 Submitting Physician: CHUCK COOK M.D. Location: [facility] Copy To/Referring/Attending: CHUCK COOK M.D. [...] this case. Clinical History: Physician Contact Number: [id number] Fixative (A): Fresh Clinical Diagnosis History: disorders of diaphragm Specimens Submitted As: A: PACING WIRE Gross Description: Received in formalin, labeled with the patient's name and hospital number, are multiple wires with a piece of adipose tissue attached measuring 3.0 x 1.6 x 1.0 cm. A photograph is taken. The attached soft tissue is submitted entirely in one cassette. EXB exb/02/12/2021 [facility] Department of Pathology [address] [place] [address] Normal [facility] Comment on above: Performed By: #### U HCS ####[facility] Surgical Pathology [id number] [place] [address] CORONAVIRUS 2019, SCREEN ASY MPTOMATICon 02-10-2021 SARS-CoV-2 (COVID-19) RNA BECCA+probe Ql (Unsp spec) Not detected Normal Not Detected [facility] Comment on above: Result Comment: [...] patient management decisions. Fact sheet for providers: https://www.fda.gov/media/403293/download Fact sheet for patients: https://www.fda.gov/media/680020/download This test has received FDA Emergency Use Authorization (EUA) and has been verified by [facility] ([facility]). This test is only authorized for the duration of time that circumstances exist to justify the authorization of the emergency use of in vitro diagnostic tests for the detection of SARS-CoV-2 virus and/or diagnosis of COVID-19 infection under section 564(b)(1) of the Act, 21 U.S.C. 360bbb-3(b)(1), unless the authorization is terminated or revoked sooner. [facility] is certified under CLIA-88 as qualified to perform high complexity testing. Testing is performed in the [facility] laboratories located at [address] [place] [address]. Performed By: #### C OVSC #### [address] [place] [address] Covid 19 Resultson 1 SARS-CoV-2 (COVID-19) RNA [...] contacted by the [facility] to see if any [...] or Naproxen (Aleve) can also be used. Unwa-val-ilexawa cough and cold medicines can be used according to the instructions on the package. Some rqfq-gcq-oqgmbmo medicines also contain acetaminophen. Make sure you [...] water are not available, use alcohol-based hand paint supervisor. Avoid touching your eyes, nose, and [...] 24 alem (more content not included)... Normal [facility] CORONAVIRUS 2019, SCREEN ASY MPTOMATICon 02-09-2021 Lab Specimen Source Nasal, Nasopharyngeal Normal [facility] Comment on above: Performed By: #### C OVSC #### [facility] [address] [place] [address] Coronavirus 2019 RNA by PCR, Screening Asymptomticon 02-09-2021 Coronavirus 2019 RNA by PCR, Screening Asymptomtic Not detected Normal See Below RF-Fkcjssu-V [facility] 107 Work Phone: Comment on above: [...] make patient management decisions.Fact sheet for providers: https://www.fda.gov/media/953201/downloadFact sheet for patients: https://www.fda.gov/media/939590/downloadThis test has received FDA Emergency Use Authorization (EUA) and has been verified by [facility] ([facility]). This test is only authorized for the duration of time that circumstances exist to justify the authorization of the emergency use of in vitro diagnostic tests for the detection of SARS-CoV-2 virus and/or diagnosis of COVID-19 infection under section 564(b)(1) of the Act, 21 U.S.C. 360bbb-3(b)(1), unless the authorization is terminated or revoked sooner. [facility] is certified under CLIA-88 as qualified to perform high complexity testing. Testing is performed in the [facility] laboratories located at [address] [place] [address]. BASIC METABOLIC PANELon 05-2 Anion gap [Moles/Vol] 13 mmol/L Normal 10 - 20 [facility] Comment on above: Performed By: #### B MP ####[id number] [facility] [place] [place] [address] Calcium [Mass/Vol] 9.7 mg/dL Normal 8.6 - 10.6 [facility] Comment on above: Performed By: #### B MP ####[id number] [place] [address] Chloride [Moles/Vol] 108 mmol/L High 98 - 107 [facility] Comment on above: Performed By: #### B MP ####[id number] [place] [address] Creatinine [Mass/Vol] 1.04 mg/dL Normal 0.50 - 1.30 [facility] Comment on above: Performed By: #### B MP ####[id number] [place] [address] GFR- AM. >60 Normal >60 [facility] Comment on above: Result Comment: CALC ULATIONS OF ESTIMATED GFR ARE PERFORMED USING THE MDRD STUDY EQUATION FOR THE IDMS-TRACEABLE CREATININE METHODS. CLIN CHEM 2007;53:766-72 Performed By: #### B MP ####[id number] [place] [address] GFR-NON AM. >60 Normal >60 [facility] Comment on above: Performed By: #### B MP ####[id number] [place] [address] Glucose [Mass/Vol] 91 mg/dL Normal 74 - 99 [facility] Comment on above: Performed By: #### B MP ####[id number] [place] [address] HCO3 (Bld) [Moles/Vol] 29 mmol/L Normal 21 - 32 [facility] Comment on above: Performed By: #### B MP ####[id number] [place] [address] Potassium [Moles/Vol] 4.6 mmol/L Normal 3.5 - 5.3 [facility] Comment on above: Performed By: #### B MP ####[id number] [place] [address] Sodium [Moles/Vol] 145 mmol/L Normal 136 - 145 [facility] Comment on above: Performed By: #### B MP ####[id number] [place] [address] Urea nitrogen [Mass/Vol] 13 mg/dL Normal 6 - 23 [facility] Comment on above: Performed By: #### B MP ####[id number] [place] [address] CBCon 01-27-2021 Erythrocyte distribution width (RBC) [Ratio] 12.2 % Normal 11.5 - 14.5 [facility] Comment on above: Performed By: #### C BC ####[id number] [place] [address] Hematocrit (Bld) [Volume fraction] 46.7 % Normal 41.0 - 52.0 [facility] Comment on above: Performed By: #### C BC ####[id number] [place] [address] Hemoglobin (Bld) [Mass/Vol] 15.1 g/dL Normal 13.5 - 17.5 [facility] Comment on above: Performed By: #### C BC ####[id number] [place] [address] MCHC (RBC) [Mass/Vol] 32.3 g/dL Normal 32.0 - 36.0 [facility] Comment on above: Performed By: #### C BC ####[id number] [place] [address] MCV (RBC) [Entitic vol] 96 fL Normal 80 - 100 [facility] Comment on above: Performed By: #### C BC ####[id number] [place] [address] NUCLEATED RBC 0.0 /100 WBC Normal 0.0-0.0 [facility] Comment on above: Performed By: #### C BC ####[id number] [place] [address] Platelets (Bld) [#/Vol] 209 10*3/uL Normal 150 - 450 [facility] Comment on above: Performed By: #### C BC ####[id number] [place] [address] RBC 4.85 x10E12/L Normal 4.50 - 5.90 [facility] Comment on above: Performed By: #### C BC ####[id number] [place] [address] WBC (Bld) [#/Vol] 7.2 10*3/uL Normal 4.4 - 11.3 [facility] Comment on above: Performed By: #### C ####[id number] [place] [address] Follow Up (General Surgery)o n 01-27-2021 Follow [...] Status:Hold For - Scheduling; Requested for:27Jan2021; Perform:[facility] [address] [place]; Due:27Apr2021;Ordered; For:Diaphragm dysfunction, HTN [...] 2017 and had paced more or less pattern carrier. He was turning the device off 1-2 [...] MG Oral Tablet Vitals Vital Signs Recorded: 11Scb8620 11:12AM Wekokjkziyc80.1 F Heart Rate77 Xhxerpia015 Oxcdgswzt83 Ztejlp945 lb BMI Rhmfrzqqfz43.64 kg/m2 BSA Calculated2.33 Tobacco Useb) No Physical [...] the r (more content not included)... Normal [employer] No Panel Informationon 01-27 http://[facility] STIGLEREPRDAIO0 1:8080 /musescripts/[email or web address].dll?R etrieveTestByDateTime?Sherita akxPV=[id number]&Date=&Time=13%3a24%3a34%3a 00&TestType=ECG&Site=1&Out putType=PDF&Ext=PDF NU-Lhssliw-Z [address] Work Phone: Normal sinus rhythm MG-Ramos rgery-G [address] Work Phone: Normal WB-Vkehcjt-L [address] Work Phone: [phone] 1 JF-Hrerplo-[address] Work Phone: [phone] 1 RG-Mkjjcij-[address] Work Phone: 205 1 HT-Qdrtuxo-Q [address] Work Phone: 147 1 OX-Pmgseto-W [address] Work Phone: 224 1 CM-Rdyanun-O [address] Work Phone: 11 1 LB-Ratwzvb-O [address] Work Phone: 69 1 KH-Ehbaadu-D [address] Work Phone: 26 1 JV-Rcnzaum-M [address] Work Phone: 40 1 VU-Cjkmkha-N [address] Work Phone: 421 1 XO-Astilrn-H [address] Work Phone: 390 1 OI-Imrijbe-S [address] Work Phone: 92 1 CQ-Yjxneiq-P [address] Work Phone: 154 1 OH-Alxdhlk-[address] Work Phone: 70 1 ID-Jpeyhbl-[address] Work Phone: Radiologyon 01-27-2021 XR Chest 2 Views Normal MG-Surge ry-[address] Work Phone: TH CHEST 2 VIEW PA AND LATon 01-27-2021 TH CHEST 2 VIEW PA AND LAT Patient Name: RIGO JEFFERSON STUDY: TH CHEST 2 VIEW PA AND LAT; 01/27/2021 11:00 am INDICATION: chronic hypoventilation. COMPARISON: Chest radiograph 04/03/2019 ACCESSION NUMBER(S): [id number] ORDERING CLINICIAN: CHUCK COOK FINDINGS: Inspiratory and [...] Electronically signed by: ANGI CAICEDO MD Normal [facility] Tobacco Screening.on 021 Tobacco use status CPHS b) No GZ-Otfdaes-[address] Work Phone: Tobacco Screening. b) No MG-Tino raysa-[address] Work Phone: Otheron 04-03-2019 XR Chest 2 views Interpreted by: ISAK04/03/19 14:06MRN: [id number] Name: RIGO JEFFERSON STUDY:CHEST 2 VIEW PA [...] Electronically signed by: ISAK 04/03/19 14:06 Normal MO-Asiejks-[address] Work Phone: Vital Signs Date Time Vital Sign Value Performing Clinician Facility 07-09-2024 10:24-0500 Body height 182.9 cm Mani Santoyo NP Work Phone: [facility] 07-09-2024 10:24-0500 Body mass index (BMI) [Ratio] 30.38 kg/m2 Mani Santoyo LEGAL ARBITRATOR Work Phone: [facility] 07-09-2024 10:24-0500 Body temperature 97.11 [degF] Mani Santoyo LEGAL ARBITRATOR Work Phone: [facility] 07-09-2024 10:24-0500 Body weight 101.61 kg Mani Santoyo LEGAL ARBITRATOR Work Phone: [facility] 07-09-2024 10:24-0500 Diastolic blood pressure 70 mm[Hg] Mani Santoyo LEGAL ARBITRATOR Work Phone: [facility] 07-09-2024 10:24-0500 Heart rate 81 /min Mani Santoyo LEGAL ARBITRATOR Work Phone: [facility] 07-09-2024 10:24-0500 Respiratory rate 16 /min Mani Santoyo LEGAL ARBITRATOR Work Phone: [facility] 07-09-2024 10:24-0500 SaO2% (BldA) [Mass fraction] 98 % Mani Santoyo LEGAL ARBITRATOR Work Phone: [facility] 07-09-2024 10:24-0500 Systolic blood pressure 110 mm[Hg] Mani Santoyo LEGAL ARBITRATOR Work Phone: [facility] 06-06-2024 15:30-0400 Body mass index (BMI) [Ratio] 29.43 kg/m2 Mani Santoyo LEGAL ARBITRATOR Work Phone: [facility] 06-06-2024 15:30-0400 Body temperature 97.39 [degF] Mani Santoyo LEGAL ARBITRATOR Work Phone: [facility] 06-06-2024 15:30-0400 Body weight 98.43 kg Mani Santoyo LEGAL ARBITRATOR Work Phone: [facility] 06-06-2024 15:30-0400 Diastolic blood pressure 78 mm[Hg] Mani Santoyo LEGAL ARBITRATOR Work Phone: [facility] 06-06-2024 15:30-0400 Heart rate 73 /min Mani Waltonpatrick LEGAL ARBITRATOR Work Phone: [facility] 06-06-2024 15:30-0400 Respiratory rate 16 /min Mani Waltonpatrick LEGAL ARBITRATOR Work Phone: [facility] 06-06-2024 15:30-0400 SaO2% (BldA) [Mass fraction] 96 % Mani Waltonpatrick LEGAL ARBITRATOR Work Phone: [facility] 06-06-2024 15:30-0400 Systolic blood pressure 122 mm[Hg] Mani Santoyo LEGAL ARBITRATOR Work Phone: [facility] 05-03-2024 11:08-0400 Body height 182.9 cm Mani Waltonpatrick LEGAL ARBITRATOR Work Phone: [facility] 05-03-2024 11:08-0400 Body mass index (BMI) [Ratio] 28.89 kg/m2 Mani Santoyo LEGAL ARBITRATOR Work Phone: [facility] 05-03-2024 11:08-0400 Body temperature 98.2 [degF] Mani Waltonpatrick LEGAL ARBITRATOR Work Phone: [facility] 05-03-2024 11:08-0400 Body weight 96.62 kg Mani Waltonpatrick LEGAL ARBITRATOR Work Phone: [facility] 05-03-2024 11:08-0400 Diastolic blood pressure 74 mm[Hg] Mani Santoyo LEGAL ARBITRATOR Work Phone: [facility] Comment on above: 134/80 RT ARM LG CUFF 05-03-2024 11:08-0400 Heart rate 102 /min Mani Waltonpatrick LEGAL ARBITRATOR Work Phone: [facility] Comment on above: 95% O2 05-03-2024 11:08-0400 Systolic blood pressure 164 mm[Hg] Mani Santoyo LEGAL ARBITRATOR Work Phone: [facility] Comment on above: 134/80 RT ARM LG CUFF 02-12-2021 14:10-0400 SaO2% (BldA) [Mass fraction] 95 % No Pcp Required [facility] 02-12-2021 14:00-0400 Body temperature 97.16 [degF] No Pcp Required [facility] 02-12-2021 14:00-0400 Diastolic blood pressure 83 mm[Hg] No Pcp Required [facility] 02-12-2021 14:00-0400 Heart rate 81 /min No Pcp Required [facility] 02-12-2021 14:00-0400 Respiratory rate 18 /min No Pcp Required [facility] 02-12-2021 14:00-0400 Systolic blood pressure 131 mm[Hg] No Pcp Required [facility] 02-12-2021 03:31-0400 Body height 182.8 cm No Pcp Required [facility] 02-12-2021 03:31-0400 Body weight 109.8 kg No Pcp Required [facility] 01-27-2021 11:12-0400 Body mass index (BMI) [Ratio] 33.64 kg/m2 Chuck Cook MD Work Phone: WI-Ux[address] Work Phone: 01-27-2021 11:12-0400 Body surface area Derived from formula 2.33 m2 Chuck Cook MD Work Phone: CQ-Mowgpsq[address] Work Phone: 01-27-2021 11:12-0400 Body temperature 96.1 [degF] Chuck Cook MD Work Phone: QQ-Fnukdfe-Xh[address] Work Phone: 01-27-2021 11:12-0400 Body weight 112.49 kg Chuck Cook MD Work Phone: YF-Axcttih-[address] Work Phone: 01-27-2021 11:12-0400 Diastolic blood pressure 85 mm[Hg] Chuck Cook MD Work Phone: CQ-Yvxcoci-[address] Work Phone: 01-27-2021 11:12-0400 Heart rate 77 /min Chuck Cook MD Work Phone: LD-Kqgheon-[address] Work Phone: 01-27-2021 11:12-0400 Systolic blood pressure 157 mm[Hg] Chuck Cook MD Work Phone: MB-Smmgapr-[address] Work Phone: 04-03-2019 15:37-0400 BMI (Body Mass Index) 30.11 kg/m2 Chandan Travon EH-Xxvmpal-Xxawqtx [address] Work Phone: 04-03-2019 15:37-0400 Body Temperature 97.9 [degF] Chandan Travon IG-Svgylje-[address] Work Phone: 04-03-2019 15:37-0400 Body weight 100.7 kg Chandan Travon YG-Gfsljdg-Vsgmh ll [address]99 Work Phone: 04-03-2019 15:37-0400 BP Diastolic 74 mm[Hg] Chandan Travon FE-Ytzetlv-Lmdzu ll [address] Work Phone: 04-03-2019 15:37-0400 BP Systolic 121 mm[Hg] Chandan Travon NX-Xetxion-Dudcx [address] Work Phone: 04-03-2019 15:37-0400 BSA (Body Surface Area) 2.23 m2 Chandan [place] HH-Vgxhsmw-Cgypltx 2099 Work Phone: 04-03-2019 15:37-0400 Height 182.88 cm Chandan Travon QP-Mfovvnh-Vbjfr ll 2099 Work Phone: 04-03-2019 15:37-0400 Pulse (Heart Rate) 58 /min Chandan Travon NU-Kqkanmy-[address] Work Phone: Encounters Encounter Date Encounter Type Care Provider Facility Start: 08-24-2024 End: 08-24-2024 Clinisync Result Encounter Generic External Data Provider [facility] Unsolicited Start: 08-24-2024 End: 08-24-2024 Clinisync Result Encounter Generic External Data Provider [facility] External [facility] Unsolicited Start: 08-09-2024 End: 08-16-2024 Orders Only Mani Jimeneztrick LEGAL ARBITRATOR Work Phone: [facility] Comment on above: Chronic allergic rhi nitis Rosacea, unspecified Start: 08-07-2024 End: 08-07-2024 Refill Lianet Talamantes MA [facility] Comment on above: Chronic allergic rhi nitis Start: 07-16-2024 End: 07-16-2024 Refill Mani Martinezk LEGAL ARBITRATOR Work Phone: [facility] Comment on above: Chronic allergic rhi nitis Start: 07-11-2024 End: 07-11-2024 ambulatory [facility] Start: 07-09-2024 End: 07-09-2024 Bamboo flowsheet Mani Santoyo LEGAL ARBITRATOR Work Phone: [facility] Start: 07-09-2024 End: 07-09-2024 Bamboo flowsheet Mani Santoyo LEGAL ARBITRATOR Work Phone: [facility] Start: 07-09-2024 End: 07-09-2024 Office outpatient visit 10 minutes Mani Waltonpatrick LEGAL ARBITRATOR Work Phone: [facility] Comment on above: Class 1 obesity due to excess calories without serious comorbidity with body mass index (BMI) of 31.0 to 31.9 in adult (Primary Dx) Start: 07-09-2024 End: 07-09-2024 ambulatory MANI SANTOYO Not Available Start: 06-06-2024 End: 06-06-2024 Office outpatient visit 15 minutes Mani Santoyo LEGAL ARBITRATOR Work Phone: [facility] Comment on above: Chronic obstructive pulmonary disease, unspecified COPD type (CMS/HCC) (Primary Dx); Paralyzed hemidiaphragm; Class 1 obesity due to excess calories without serious comorbidity with body mass index (BMI) of 31.0 to 31.9 in adult Start: 06-06-2024 End: 06-06-2024 ambulatory MANI SANTOYO Not Available Start: 05-31-2024 End: 05-31-2024 Subsequent hospital visit by physician [facility] Work Phone: [facility] Radiology General Comment on above: Cervical vertebral f usion [M43.22] Start: 05-31-2024 End: 05-31-2024 Patient encounter procedure Juan Salazar MD Work Phone: [facility] Comment on above: Cervical vertebral f usion (Primary Dx); Spinal stenosis of cervical region Start: 05-21-2024 End: 05-21-2024 Orders Only Mani Santoyo LEGAL ARBITRATOR Work Phone: [facility] Comment on above: Class 1 obesity due to excess calories without serious comorbidity with body mass index (BMI) of 31.0 to 31.9 in adult (Primary Dx) Start: 05-15-2024 End: 05-15-2024 Refill Mani Martinezk LEGAL ARBITRATOR Work Phone: [facility] Start: 05-14-2024 End: 05-14-2024 ambulatory [facility] Start: 05-03-2024 End: 05-03-2024 Bamboo flowsheet Mani Santoyo LEGAL ARBITRATOR Work Phone: [facility] Start: 05-03-2024 End: 05-03-2024 Bamboo flowsheet Mani Santoyo LEGAL ARBITRATOR Work Phone: [facility] Start: 05-03-2024 End: 05-03-2024 Office outpatient visit 25 minutes Mani Martinezk LEGAL ARBITRATOR Work Phone: [facility] Comment on [...] Start: 08-20-2023 Patient encounter procedure Mani Santoyo LEGAL ARBITRATOR Work Phone: [facility] Start: 08-18-2023 End: 08-18-2023 ambulatory [...] Start: 01-27-2022 End: 01-28-2022 ambulatory COREAS Mina ALCANTARAMTSis Facility:H1 Start: 04-02-2021 Postop follow up vis it related to original px No PCP None LD-Aswxrlt-[address] Work Phone: Start: 02-20-2021 Chart Update No PCP None MG-Surgery -[address] Work Phone: Start: 02-11-2021 End: 02-12-2021 Evaluation and management of inpatient Chuck Cook [facility] [address]ks[address] 55 Rm 5511 01 Start: 01-27-2021 Chart Update Chuck Cook MD Work Phone: KQ-Adqtcof-[address] Work Phone: Start: 04-03-2019 Patient encounter procedure Chandan Cool LV-Xfckfgw-Jbr[address] Work Phone: Start: 01-12-2018 Patient encounter procedure Chandan Cool LX-Trmjwqz-Dvtd[address] Work Phone: Start: 11-28-2017 Patient encounter procedure Chandan Cool BU-Wxqvnwz-Njr[address] Work Phone: Start: 11-28-2017 Patient encounter procedure Chandan Cool QM-Uwtsadg-Dq[address] Work Phone: Procedures Date Procedure [...] Cool History of Knee Surgery Left Chandan Matsonmo History of Neck Surgery Tammy Travon Tonsillectomy Chandan Matsonmo Plan of Treatment Date Care Activity Detail Author Start: 2034 RSV Vaccine (1 - 1-d ose 75+ series) RSV Vaccine (1 - 1-dose 75+ series) [facility] Start: 11-01-2033 Screening for malign ant neoplasm of colon [facility] Start: 10-30-2024 End: 10-30-2024 Patient encounter procedure 10/30/2024 8:30 AM EST Office Visit [facility] [address] [place] [phone] Mani Santoyo NP [address] [place] [phone] [facility] Start: 09-11-2024 End: 09-11-2024 Patient encounter procedure 09/11/2024 10:20 AM EST Office Visit [facility] [address] [place] [address] Husam Muñoz MD [address] [place] [address] [facility] Start: 08-18-2024 Medicare Annual Wellness (AWV) Medicare Annual Wellness (AWV) [facility] Start: 08-16-2024 End: 08-16-2024 Patient encounter procedure 08/16/2024 8:30 AM EST Office Visit [facility] [address] [place] [phone] Mani Santoyo NP [address] [place] [phone] [facility] Start: 08-06-2024 End: 08-06-2024 Patient encounter procedure 08/06/2024 10:00 AM EST [facility] [address] [place] [phone] Mani Santoyo NP [address] [place] [id number] [facility] Start: 07-26-2024 End: 07-26-2024 Patient encounter procedure 07/26/2024 10:30 AM EST Office Visit [facility] [address] [place] [address] Mani Santoyo, LEGAL ARBITRATOR [address] [place] [address] [facility] Start: 07-09-2024 End: 07-09-2024 [facility] Comment on above: [facility] Start: 05-06-2024 Covid-19 Vaccine ( season) Covid-19 Vaccine () [facility] Start: 05-06-2024 Influenza vaccination Influenza Vacc ine (#1) [facility] Start: 05-03-2024 End: 05-03-2025 CBC W Auto Differential panel - Blood CBC and differential Lab Routine Primary hypertension (CMS/HCC) Class 1 obesity due to excess calories without serious comorbidity with body mass index (BMI) of 31.0 to 31.9 in adult Expected: 05/03/2024 (Approximate), Expires: 05/03/2025 [facility] Comment on above: Expected: 05/03/2024 (Approximate), Expires: 05/03/2025 Start: 05-03-2024 End: 05-03-2025 Comprehensive metabolic 2000 panel - Serum or Plasma Comprehensive metabolic panel Lab Routine Primary hypertension (CMS/HCC) Class 1 obesity due to excess calories without serious comorbidity with body mass index (BMI) of 31.0 to 31.9 in adult Expected: 05/03/2024 (Approximate), Expires: 05/03/2025 [facility] Comment on above: Expected: 05/03/2024 (Approximate), Expires: 05/03/2025 Start: 05-03-2024 End: 05-03-2025 Microalbumin/Creatinine panel in random Urine Microalbumin / creatinine urine ratio Lab Routine Primary hypertension (CMS/HCC) Expected: 05/03/2024 (Approximate), Expires: 05/03/2025 [facility] Work Phone: Comment on above: Expected: 05/03/2024 (Approximate), Expires: 05/03/2025 Start: 05-03-2024 End: 05-03-2024 Patient encounter procedure 05/03/2024 11:00 AM EDT [facility] [address] [place] [address] Mani Santoyo NP [address] [place] [address] Chronic obstructive pulmonary disease, unspecified COPD type (CMS/HCC) (Primary Dx); Primary hypertension (CMS/HCC); Class 1 obesity due to excess calories without serious comorbidity with body mass index (BMI) of 31.0 to 31.9 in adult; Hyperlipidemia, unspecified hyperlipidemia type (CMS/HCC) [facility] Comment on above: Chronic obstructive pulmonary disease, unspecified COPD type (CMS/HCC) (Primary Dx); Primary hypertension (CMS/HCC); Class 1 obesity due to excess calories without serious comorbidity with body mass index (BMI) of 31.0 to 31.9 in adult; Hyperlipidemia, unspecified hyperlipidemia type (CMS/HCC) Start: 2024 Advance Directive Discussion Advance Directive Discussion [facility] Start: 2024 Pneumococcal Vaccine : 65+ (1 of 1 - PCV) Pneumococcal Vaccine: 65+ (1 of 1 - PCV) [facility] Start: 02-13-2024 Diabetes Screening Diabetes Screenin g [facility] Start: 02-11-2021 End: 02-12-2022 Ondansetron Injectable 4 mg IntraVenous Push Every 6 Hours PRN ; (ZOFRAN)DOSE = 4 mg IntraVenous Push Every 4 Hours, PRN Nausea & Vomiting Start: 11-Feb-2021 End: 11-Feb-2022 Ordered: 11-Feb-2021 Saw Saleem [facility] Start: 2014 Prostate specific antigen measurement Prostate Cancer Screening Discussion [facility] Start: 2009 Shingrix Vaccine (1 of 2) Shingrix Vaccine (1 of 2) [facility] Start: 2004 Screening for malign ant neoplasm of colon [facility] Start: 1994 Lipid panel Lipid Screening [facility] Start: 1978 Urine microalbumin profile DTaP,Tdap,Td Vaccine (1 - Tdap) [facility] Start: 1977 Anxiety Screening Anxiety Screening [facility] Start: 1977 Depression Screening Depression Scre ening [facility] Start: 1977 Hepatitis C screening Hepatitis C Sc reening [facility] Start: 1977 HIV screening HIV Screening [facility] Start: 1965 Pneumococcal Vaccine : 65+ Years (1 of 2 - PCV) Pneumococcal Vaccine: 65+ Years (1 of 2 - PCV) [facility] Start: 1959 Screening for malign ant neoplasm of colon [facility] End: 06-30-2025 MR Cervical spine WO contrast MRI CERVICAL SPINE WO IVCON Radiology Routine Spinal stenosis of cervical region 1 Occurrences starting 05/31/2024 until 06/30/2025 [facility] Comment on above: 1 Occurrences starti ng 05/31/2024 until 06/30/2025 End: 06-30-2025 XR CERV OTHER 4V AP/LAT/FLX/EXT XR CERV OTHER 4V AP/LAT/FLX/EXT Radiology Routine Cervical vertebral fusion 1 Occurrences starting 05/31/2024 until 06/30/2025 [facility] Work Phone: Comment on above: 1 Occurrences starti ng 05/31/2024 until 06/30/2025 XR CERV OTHER 4V AP/LAT/FLX/EXT XR CERV OTHER 4V AP/LAT/FLX/EXT Radiology Routine Cervical vertebral fusion 05/31/2024 2:54 PM EDT [facility] End: 05-24-2025 XR Lumbar spine Views W flexion and W extension XR LUMBAR MOTION 4V AP/LAT/ FLEX/EXT Radiology Routine Spinal stenosis of lumbar region with neurogenic claudication 1 Occurrences starting 04/24/2024 until 05/24/2025 [facility] Work Phone: Comment on above: 1 Occurrences starti ng 04/24/2024 until 05/24/2025 Payers Date Payer Category Payer Medicare DEVOTED [employer]ICARE [employer] [place] HMO [id number] 2022-Present [phone] [address] [place] [id number] HMO [id number] 2022 Medicare (Managed Care) [employer] [id number] 2020 Unknown [id number] 2018 Unknown 1959 Medicare [id number] 1959 Unknown [id number] 2.16.840.1.999761.3.579.2. 59 1959 Unknown [id number] 2.16.840.1.396417.3.579.2. 1959 Unknown [id number] 2.16.840.1.236777.3.579.2. 59 1959 Unknown [id number] 2.16.840.1.381716.3.579.2. 1959 Unknown [id number] 2.16.840.1.972578.3.579.2. 59 1959 Unknown [id number] 2.16.840.1.996106.3.579.2. 1959 Unknown [id number] 2.16.840.1.946088.3.579.2. 59 1959 Unknown [id number] 2.16.840.1.437464.3.579.2. 3 1959 Unknown [id number] 2.16.840.1.834463.3.579.2. 593 1959 Unknown [id number] 2.16.840.1.368947.3.579.2. 593 1959 Unknown [id number] 2.16.840.1.823724.3.579.2. 1259 1959 Unknown [id number] 2.16.840.1.257818.3.579.2. 1259 1959 Unknown [id number] 2.16.840.1.606094.3.579.2. 9 1959 Unknown [id number] 2.16.840.1.540313.3.579.2. 1259 1959 Unknown [id number] 2.16.840.1.501756.3.579.2. 1259 1959 Unknown [id number] 2.16.840.1.788580.3.579.2. 1259 1959 Unknown [id number] 2.16.840.1.966373.3.579.2. 9 1959 Unknown [id number] 2.16.840.1.030859.3.579.2. 1259 1959 Unknown [id number] 2.16.840.1.519210.3.579.2. 1259 Social History Date Type Detail Facility Start: 05-31-2024 End: 06-05-2024 Former smoker Former smoker [facility] Tobacco smoking consumption unknown [facility] Start: 1960 Sex assigned at Not on [...] [facility] NEGATED: Highlighted row - - [address] Work Phone: Functional Status Date Assessment Result Facility Functional observable [facility] NEGATED: Highlighted row Functional performance Functional status health issues are not documented Disease [address] Work Phone: Mental Status Date Assessment Result Facility 02-12-2021 Cognitive functi ons [id number] [facility] NEGATED: Highlighted row Cognitive function [Interpretation] Cognitive status health issues are not documented Disease [address] Work Phone: Clinical Notes 02-11-2021 [...] another script. An documented in this encounter [facility] 08-09-2024 Telephone encounter Note Patient stopped in and stated he is suppose to take 2 pills a day. 1 in morning and 1 at night. He only got a 30 supply and is about out. He would like another script. An [facility] 08-07-2024 Telephone encounter Note IZZY:07/09/2024 NOV:08/16/2024 [facility] 08-07-2024 Miscellaneous Notes IZZY:07/09/2024 NOV:08/16/2024 documented in this encounter [facility] 07-11-2024 Note [facility] Office Cardiology [...] x3, well devel (more content not included)... [facility] 07-09-2024 History of Present illness Narrative [...] 37.5 MG tablet documented in this encounter [facility] 06-06-2024 History of Present illness [...] if no contraindications documented in this encounter [facility] 06-06-2024 Instructions Mani Santoyo NP [...] call my office! documented in this encounter [facility] 05-31-2024 History of Present illness [...] PATIENT PRESENTS WITH AN IMPLANTABLE OR ATTACHED ADJUNCT WRITING INSTRUCTOR: No RADIOLOGY DEPARTMENT: General X-ray: Exam(s) Completed: Spine X-Ray(s): Cervical AP / LAT / FLEX-EXT and Lumbar AP / LAT / L5-S1 / FLEX-EXT PERIPHERAL IV DATA: Not applicable SIGNED BY: RT Lory(R) May 31, 2024 2:55 PM documented in this encounter [facility] 05-31-2024 History of Present illness Narrative SPINE SURGERY NEW PATIENT This is an in-person visit. PCP: No primary care provider on file. REFERRING PROVIDER: SUBJECTIVE CHIEF COMPLAINT: Hand social science instructor weakness Decreased sensation over left hemibody Lower [...] all muscle groups. Except mild bilateral hand social science instructor weakness. SENSORY: Creased sensation for light touch [...] patient was counseled regarding neck pain, hand social science instructor weakness, decreased sensation over left hemibody, lower back pain, left leg pain, walking difficulty, left leg numbness, lumbar spondylosis, lumbar canal stenosis, lumbar laminectomy with foraminotomy, adjacent segment cervical stenosis, MRI cervical spine. Total face to face time was 45 minutes. SIGNATURE: Juan Salazar MD PATIENT NAME: Rigo Jefferson DATE: May 31, 2024 TIME: 1:44 PM PAGER: documented in this encounter [facility] 05-21-2024 History of Present illness Narrative Associated [...] for weight loss. Pt meets qualifications of [facility] 4731-07-09 for weight loss. BMI>30 or [...] Starting weight 213 documented in this encounter [facility] 05-14-2024 Note [facility] Note Reason for cardiology [...] history of COPD (chronic obstructive pulmonary disease) ([facility]), Hyperlipidemia, Hypertension, Pulmonary emphysema ([facility]), and Sleep apnea. Surgical History [...] hemoglobin 16, hematocrit (more content not included)... [facility] 05-03-2024 History of Present illness Narrative [...] ALBUMIN GLOBULIN RATIO 1.0 Resulting Agency [facility] COPD: Does not follow pulmonolgy; Has not [...] at next OV. documented in this encounter [facility] 05-03-2024 Instructions Mani Santoyo NP - 05/03/2024 11:00 AM EDT Have lab work completed. Keep all follow up appointments. Call if you need anything! documented in this encounter [facility] 04-24-2024 Note HNO ID: [id number] Author: MICHELLE FLORENTINO APRN.ASPHALT SPREADER OPERATOR Service: ? Author Type: Nurse Practitioner Type: Progress Notes Filed: 04/24/2024 16:54 Note Text: Per Triage: Rigo Jefferson is a 64 year old male. that presents with symptoms of low back pain that radiates down the left leg. Previous spine surgery: Yes in [address] Sales. BMI: NA Out of state: No A1C: NA CMT: Injections Death Clearance Coordinator Mobic Oxycodone Studies (Reports unless indicated) MRI Lumbar 04/03/2024 -Severe central canal stenosis at L3-L4 and L4-L5 Disposition: Please schedule with first available lumbar spine surgeon with pre-visit x-ray. [facility] 04-24-2024 History of Present illness Narrative Per Triage: Rigo Jefferson is a 64 year old male. that presents with symptoms of low back pain that radiates down the left leg. Previous spine surgery: Yes in [address] Sales. BMI: NA Out of state: No A1C: NA CMT: Injections Death Clearance Coordinator Mobic Oxycodone Studies (Reports unless indicated) [...] facility where the MRI/CT/myelogram was completed: [facility] Address: [address] [place] [address] MRI/CT/myelogram viewable in Epic: No If not, please provide [phone] to fax in imaging reports for review. [...] and/or physical therapy was completed Injections [facility] Address: [address] [place] [address] Have you tried any other kinds of [...] [place] or Cannot recall Additional Comments documented in this encounter [facility] 04-19-2024 Note HNO ID: [id number] Author: ?, ?, ? Service: ? Author Type: ? Type: Progress Notes Filed: 04/24/2024 16:54 Note Text: Patient name: Rigo Jefferson Are you being referred by a [place] for Spine Health Provider or Pain Management [...] facility where the MRI/CT/myelogram was completed: [facility] Address: [address] [place] [id number] MRI/CT/myelogram viewable in Epic: No If not, please provide [phone] to fax in imaging reports for review. [...] and/or physical therapy was completed Injections [facility] Address: [address] [place] [address] Have you tried any other kinds of [...] 2001 [facility] or Cannot recall Additional Comments [facility] 12-09-2022 Note CONSULTATION PROCEDURE DATE: [...] our patients to inform us about any vjok-yht-nfcrbvq medications or herbal remedies/nutritional supplements/alternative remedies. 2. [...] three months. CC: Shaikh Helena M.D. [facility] 05-18-2022 Note CONSULTATION CONSULTATION DATE: 05/18/2022 [...] in three month's time, unless otherwise indicated. [place] Signed and Approved by: RAVINDER ANDERSEN . 02/04/2022 16:12:00 [facility] 02-12-2021 Note Send Summary: Discharge Summary Providers: [...] at Discharge: .Home Vital Signs: T PRBPSpO2 Value36.96646917/8395% Date/Time02/12 12: 12: 12: 12: 12:10 Range(35.4C - 36.4C ) (77 - 99 ) (17 - 18 ) (127 - 147 )/ (83 - 91 ) (92% - 96% ) As of 12-Feb-2021 12:10:00, patient is on 2 L/min of oxygen Date: Weight/Scale Type:Height: 12-Feb-2021 01:16132.8 kg / tvpipbeq561.8 cm Hospital Course: 60 yo male with [...] Call to Schedule in: 2 weeks Location: [address] [place] [address] Discharge Medications: Home Medication clarithromycin 250 mg [...] Last Updated: 13-Feb-2021 10:13 by Chuck Cook) [facility] 02-11-2021 Note Post Operative Note: PreOp Diagnosis: diaphragm paralysis Post-Procedure Diagnosis: same Procedure: 1. laparoscopic L diaphragm plication 2. removal of bilateral diaphragm pacing wires 3. L pigtail chest tube placement Surgeon: Dr Chuck Cook Resident/Fellow/Other Director Software: Dr Saw Saleem Anesthesia: GETA Estimated Blood [...] Last Updated: 12-Feb-2021 07:53 by Chuck Cook) [facility] 02-11-2021 Note History & Physical [...] Last Updated: 11-Feb-2021 15:50 by Chuck Cook) [facility] Chief complaint Narrative - Reported An interactive audio and video telecommunication system which permits real time communications between the patient (at the originating site) and provider (at the distant site) was utilized to provide this telehealth service.Post op [address] Work Phone: Evaluation note Constitutional: Well developed, awake/alert/oriented x3, no distress, alert and cooperativeSkin: warm and dryEyes: PERRL, EOMI, clear scleraENMT: MMMHead/Neck: NCATRespiratory/Thorax: good chest expansion, thorax symmetricCardiovascular: RRRGastrointestinal: Nondistended, soft, non-tender, no rebound tenderness or guardingMusculoskeletal: moves all extremitiesExtremities: well perfusedNeurological: grossly intactPsychological: Appropriate mood and behavior [facility] Evaluation note Diagnosis Spinal stenosis of lumbar region with neurogenic claudication- Primary Spinal stenosis, lumbar region, with neurogenic claudication [facility] Cervical vertebral fusion- Primary Other unspecified back disorder Spinal stenosis of cervical region Spinal stenosis in cervical region [facility] Cervical vertebral fusion Other unspecified back disorder [facility] Diagnosis Chronic obstructive pulmonary disease, unspecified COPD type (CMS/HCC)- Primary Paralyzed hemidiaphragm Class 1 obesity due to excess calories without serious comorbidity with body mass index (BMI) of 31.0 to 31.9 in adult documented in this encounter [facility] Healthcare[facility] note* Diagnosis Primary hypertension (CMS/HCC)- Primary [...] Chronic allergic rhinitis documented in this encounter [facility]* Diagnosis Primary hypertension (CMS/HCC)- [...] Chronic allergic rhinitis documented in this encounter [facility]* Diagnosis Primary hypertension (CMS/HCC)- [...] Chronic allergic rhinitis documented in this encounter [facility] HealthcareEvaluation note* Diagnosis Class 1 obesity due [...] he wants to follow-up with a lead nitrate processor in our system. [address] Work Phone: Hospital Discharge instructions* [...] Follow Up Appointment 2:Physician/Dept/Service: [facility]. [facility] hospital follow-up / diaphragm pacer removal, hemidiaphragm plicationLocation: [address] [address] Number: [phone] * Gold Form - Other Clinicians:Other Clinician Instructions: Please take your medications as directed. Please follow-up with Dr. Cook and with your PCP as directed. You may remove dressings and shower Tuesday. No heavy lifting >20lbs or strenours activity for 3 weeks. If your symptoms return orworsen, please seek medical attention. Thank you for allowing us to participate in your care. [facility] (narrative)* Diagnostic Procedure Only (Routine) - New Request Specialty Diagnoses / Procedures Referred By Sharlene schuster Referred To Contact XR IMAGING Diagnoses Spinal stenosis of lumbar region with neurogenic claudication Procedures XR LUMBAR MOTION 4V AP/LAT/ FLEX/EXT RADEX SPINE LUMBOSACRAL MINIMUM 4 VIEWS Michelle Florentino, LEAD MATERIAL HANDLER.ASPHALT SPREADER OPERATOR [address] [place] [address] Xr Imaging [facility] Referral ID Status Reason Start Date Expiration Date Visits Requested Visits Authorized [id number] New Request Auto-Generat ed Referral 04/24/2024 05/24/2025 1 1 [facility] for referral (narrative)* Diagnostic Procedure Only (Routine) - Closed Specialty Diagnoses / Procedures Referred By Contac t Referred To Contact XR IMAGING Diagnoses Cervical vertebral fusion Procedures XR CERV OTHER 4V AP/LAT/FLX/EXT RADEX SPINE CERVICAL 4 [place] [address] [place] [address] Xr Imaging [facility] Referral ID Status Reason Start Date Expiration Date V isits Requested Visits Authorized [id number] Closed Auto-Generate d Referral 05/31/2024 06/30/2025 1 1 [facility] for referral (narrative)* Consultation (Urgent) - Authorized Specialty Diagnoses / Procedures Referred By Contac t Referred To Contact Pulmonary Disease Diagnoses Chronic obstructive pulmonary disease, unspecified COPD type (CMS/HCC) Paralyzed hemidiaphragm Procedures CT OFFICE/OUTPATIENT NEW HIGH MDM 60 MINUTES Mani Santoyo NP [address] [place] [phone] Aly Mosley MD [address] [place] [address] Referral ID Status Reason Start Date Expiration Date Visits Requested Visits Authorized [id number] Authorized Specialty Services Required 06/06/2024 12/03/2024 1 [...] CERVICAL W/[place] [address] [place] [id number] Mr Imaging [facility] Referral ID Status Reason Start Date Expiration Date Visits Requested Visits Authorized [id number] New Request Auto-Generat ed Referral 05/31/2024 06/30/2025 1 1 Specialty Diagnoses / Procedures Referred By Sharlene schuster Referred To Contact XR IMAGING Diagnoses Cervical vertebral fusion Procedures XR CERV OTHER 4V AP/LAT/FLX/EXT RADEX SPINE CERVICAL 4 [place] [address] [place] [id number] Xr Imaging [facility] Referral ID Status Reason Start Date Expiration Date V isits Requested Visits Authorized [id number] Closed Auto-Generate d Referral 05/31/2024 06/30/2025 1 [...] CREATED AUTHOR AUTHOR'S ORGANIZ ATION 12/31/2022 [facility] pital DATE CREATED AUTHOR AUTHOR'S ORGANIZ ATION 04/26/2024 [facility] DATE CREATED AUTHOR AUTHOR'S ORGANIZ ATION 07/10/[address] [facility] dical [facility] DATE CREATED AUTHOR AUTHOR'S ORGANIZ ATION 07/12/2024 [facility] Source Comments (unrecognize d section and content) In the event this informatio n is protected by the Federal Confidentiality of Alcohol and Drug Abuse Patient Records regulations: The Federal rules restrict any use of the information to criminally investigate or prosecute any alcohol or drug abuse patient.[facility] the event this information is protected by the Federal Confidentiality of Alcohol and Drug Abuse Patient Records regulations: The Federal rules restrict any use of the information to criminally investigate or prosecute any alcohol or drug abuse patient.[facility] the event this information is protected by the Federal Confidentiality of Alcohol and Drug Abuse Patient Records regulations: The Federal rules restrict any use of the information to criminally investigate or prosecute any alcohol or drug abuse patient.[facility] Care Teams (unrecognized sec tion and content) Powerhouse Attendant Relationship Specialty Start Date End Date Tonny Hernandez MD [address] [place] [address] Referring Pain Management 04/16/24 Powerhouse Attendant Relationship Specialty Start Date End Date Tonny Hernandez MD [address] [place] [address] Referring Pain Management 04/16/24 Powerhouse Attendant Relationship Specialty Start Date End Date Tonny Hernandez MD [address] [place] [address] Referring Pain Management 04/16/24 Powerhouse Attendant Relationship Specialty Start Date End Date Rosa Barker MD [address] [address] PCP - [facility] 09/05/22 Nikunj Yanez MD [address] [place] [address] PCP - General Family Medicine 04/09/24 Mani Santoyo NP [address] [place] [address] Nurse Practitioner Family Medicine 04/09/24 Powerhouse Attendant Relationship Specialty Start Date End Date Rosa Barker MD [address] [place] [address] PCP - [facility] 09/05/22 Nikunj Yanez MD [address] [place] [address] PCP - General Family Medicine 04/09/24 Mani Santoyo NP [address] [place] [address] Nurse Practitioner Family Medicine 04/09/24 Powerhouse Attendant Relationship Specialty Start Date End Date Rosa Barker MD [address] [facility] [address] [place] [address] PCP - [facility] 09/05/22 Nikunj Yanez MD [address] [place] [phone] PCP - General Family Medicine 04/09/24 Mani Santoyo, GREGORY [address] [place] [address] Nurse Practitioner Family Medicine 04/09/24 Powerhouse Attendant Relationship Specialty Start Date End Date Rosa Barker MD [address] [facility] [address] [place] [address] PCP - [facility] 09/05/22 Nikunj Yanez MD [address] [place] [address] PCP - General Family Medicine 04/09/24 Mani Santoyo NP [address] [place] [address] Nurse Practitioner Family Medicine 04/09/24 Powerhouse Attendant Relationship Specialty Start Date End Date Rosa Barker MD [address] [place] [address] PCP - Devoted 09/05/22 Nikunj Yanez MD [address] [place] [address] PCP - General Family Medicine 04/09/24 Mani Santoyo NP [address] [place] [address] Nurse Practitioner Family Medicine 04/09/24 Powerhouse Attendant Relationship Specialty Start Date End Date Rosa Barker MD [address] [facility] [place] [address] PCP - Devoted 09/05/22 Nikunj Yanez MD [address] [place] [address] PCP - General Family Medicine 04/09/24 Mani Santoyo NP [address] [place] [address] Nurse Practitioner Family Medicine 04/09/24 Powerhouse Attendant Relationship Specialty Start Date End Date Rosa Barker MD [address] [facility] [address] [place] [address] PCP - Devoted 09/05/22 Nikunj Yanez MD [address] [place] [phone] PCP - General Family Medicine 04/09/24 Mani Santoyo NP [address] [place] [address] Nurse Practitioner Family Medicine 04/09/24 Powerhouse Attendant Relationship Specialty Start Date End Date Rosa Barker MD [address] [facility] [address] [place] [address] PCP - Devoted 09/05/22 Nikunj Yanez MD [address] [place] [phone] PCP - General Family Medicine 04/09/24 Mani Santoyo NP [address] [place] [phone] Nurse Practitioner Family Medicine 04/09/24 Reason for Visit (unrecogniz ed section and content) Reason Comments New Patient Reason Comments Radio Gen RMP Specialty Diagnoses / Procedures Referred By Contac t Referred To Contact XR IMAGING Diagnoses Cervical vertebral fusion Procedures XR CERV OTHER 4V AP/LAT/FLX/EXT RADEX SPINE CERVICAL 4 [place] 5 [place] [address] [place] [address] [place] [id number] Referral ID Status Reason Start Date Expiration Date V isits Requested Visits Authorized [id number] Closed Auto-Generate d Referral 05/31/2024 06/30/2025 1 [...] BE BASED ON THE PRIMARY CLINICAL RECORDS. [facility] [employer] provides no warranty or guarantee of the accuracy or completeness of information in this document.
[2024-09-07 11:32] LABS: Chol HDL Ratio 2.8; Cholesterol 197 mg/dL (<=200); HDL Cholesterol 71 mg/dL (40-60); Triglycerides 54 mg/dL (<=150); VLDL CHOLESTEROL 10.8 mg/dL
== END 2024-09-07 10:56 | disposition home or self-care (01) ==
LOC: LAB 10:56
PROVIDERS: Visit Provider Internal Medicine Cardiovascular Disease
DX: E78.5 Hyperlipidemia, unspecified (principal)
CPT/HCPCS: 36415; 80061

== ENCOUNTER 2024-09-12 08:05 | Outpatient (OUT) | payer OTHER, SELFPAY ==
--- NOTE | 2024-09-06 13:56 | P.CN_ITS ---
Consult Note: HPI Data of Consult Patient: known to practice within the last 3 years Requesting Physician: Sho Galdamez NP Primary Care Provider: Shaikh Helena MD Consult Narrative Reason for consult: f/u Narrative: Ryan Pete a pleasant 64 year old male presents for evaluation of chronic pain. Today pain 5/10 in low back, ache worse with activity. increases to 8/10 at its worst. Pain increased with twisting, pushing, pulling, standing, lifting, activity. Pain improved mildly with TENS, ibuprofen, lidocaine patches, baclofen 10mg BID PRN, and percocet 5-325mg QID PRN. Patient denies side effects. denies loss of bowel or bladder. is following with NS ofr consideration of lumbar surgery. cc:: CC: Sho Galdamez NP Review of Systems ROS Status of ROS 10 or more systems reviewed and unremark able except as noted in history and below Musculoskeletal Reports: back pain, neck pain and joint pain PFSH [facility] Medical History (Updated 06/06/24 @ 08:40 by Sho Galdamez NP) COPD (chronic obstructive pulmonary disease) ?J44.9 - Chronic obstructive pulmonary disease, unspecified (ICD-10) Rheumatoid arthritis ?M06.9 - Rheumatoid arthritis, unspecified (ICD-10) Upper back pain ?M54.9 - Dorsalgia, unspecified (ICD-10) Low back pain ?M54.50 - Low back pain, unspecified (ICD-10) Uses continuous positive airway pressure (CPAP) ventilation at home ?Z99.89 - Dependence on other enabling machines and devices (ICD-10) Emphysema lung ?J43.9 - Emphysema, unspecified (ICD-10) Hypertension ?I10 - Essential (primary) hypertension (ICD-10) Surgical History Hx of cholecystectomy ?Z90.49 - Acquired absence of other specified parts of digestive tract (ICD- 10) H/O cardiac catheterization ?Z98.890 - Other specified postprocedural states (ICD-10) H/O heart bypass surgery ?Z95.1 - Presence of aortocoronary bypass graft (ICD-10) History of lung surgery ?Z98.890 - Other specified postprocedural states (ICD-10) History of tonsillectomy ?Z90.89 - Acquired absence of other organs (ICD-10) H/O cervical spine surgery ?Z98.890 - Other specified postprocedural states (ICD-10) H/O carpal tunnel repair ?Z98.890 - Other specified postprocedural states (ICD-10) H/O arthroscopy of knee ?Z98.890 - Other specified postprocedural states (ICD-10) Meds Home Medications and Allergies Home Medications ?Medication ?Instructions ?Recorded ?Confirmed ?Type atorvastatin 40 mg tablet (Lipitor) 40 mg PO DAILY 02/17/23 05/22/24 History baclofen 10 mg tablet 10 mg PO BID 02/17/23 05/22/24 History lidocaine 5 % topical patch 1 patch topical DAILY 02/17/23 05/22/24 History (Lidoderm) testosterone enanthate 50 mg/0.5 50 mg subcut QWEEK 12/13/23 05/22/24 History mL subcutaneous auto-injector (Xyosted) ibuprofen 200 mg tablet 800 mg PO TID PRN pain 12/20/23 05/22/24 History oxycodone-acetaminophen 5 mg-325 1 tab PO QID PRN pain #120 tabs 03/19/24 05/22/24 Rx mg tablet (Percocet) cetirizine 10 mg tablet (Zyrtec) 10 mg PO BID PRN allergy symptoms 03/28/24 05/22/24 History montelukast 10 mg tablet 10 mg PO DAILY 03/28/24 05/22/24 History (Singulair) oxycodone-acetaminophen 5 mg-325 1 tab PO QID PRN pain #120 tabs 04/12/24 05/22/24 Rx mg tablet (Percocet) meloxicam 7.5 mg tablet 7.5 mg PO BID 05/09/24 05/22/24 History oxycodone-acetaminophen 5 mg-325 1 tab PO QID PRN pain #120 tabs 05/09/24 05/22/24 Rx mg tablet (Percocet) oxycodone-acetaminophen 5 mg-325 1 tab PO QID PRN pain #120 tabs 06/21/24 Rx mg tablet (Endocet) naloxone 4 mg/actuation nasal 4 mg intranasal Q2M PRN opioid 07/18/24 Rx spray (Narcan) overdose #1 ea oxycodone-acetaminophen 5 mg-325 1 tab PO QID PRN pain #120 tabs 07/18/24 Rx mg tablet (Percocet) oxycodone-acetaminophen 5 mg-325 1 tab PO QID PRN pain #120 tabs 08/16/24 Rx mg tablet (Percocet) Allergies Allergy/AdvReac Type Severity Reaction Status Date / Time No Known Drug Allergies Allergy Verified 05/22/24 07:35 Exam Constitutional Documenting provider has reviewed patient's vital signs: yes Common normals: no apparent distress, oriented x3, healthy appearing, alert and well nourished General appearance: cooperative HENMT Common normals: normocephalic, hearing grossly normal bilaterally and moist oral mucous membranes Head and scalp: normocephalic Eye Common normals: PERRL Pupil: PERRL Neck & C-Spine Common normals: full ROM General: normal visual inspection Cervical spine: pain with cervical ROM; no cervical spine tenderness Chest Common normals: inspection of chest normal Respiratory Common normals: normal respiratory effort, no retractions and no use of accessory muscles Back & Pelvis Lumbar spine/lower back: ROM limited, pain with ROM and straight leg raise negative bilaterally Sacroiliac joints: SI joints normal Other: sensation intact BLE strength 5/5 in BLE positive facet loading L3-S1 Extremity Common normals: normal to inspection Right lower extremity: hip joint and knee joint Left lower extremity: hip joint Other: left hip: no pain with internal and external rotation right hip: mild to moderate pain with internal and external rotation left knee enlarged diameter, mild edema, pain with medial and lateral stress testing, crepitus noted on exam Neuro Common normals: oriented x3, CN's II-XII intact bilaterally, moves all extremities, no focal motor deficits, no sensory deficits noted and deep tendon reflexes 2+ bilaterally Sensorium/orientation: alert Gait (neuro): antalgic Motor exam: strength 5/5 throughout and no movement abnormalities noted Psych Common normals: mental status grossly normal, thought process normal, cooperative, affect normal, speech normal and activity/motor behavior normal Speech: normal speech Thought process: normal thought process Results Additional Findings Additional findings: If on a controlled substance or opioids, I have checked an [place]AR[place] report on this patient and there are no aberrancies noted in the prescribing history.??If on a controlled substance or opioid a drug screen was completed and reviewed within the last year, and if there has not been a drug screen completed we ordered one today to monitor higher risk, state monitored pain medication use. As part of providing excellent, safe, comprehensive care, the following was completed at our patient's visit: 1. A medication reconciliation and review to ensure accurate knowledge of current/active medications, including asking our patients to inform us about any [id number]-[id number] medications or herbal remedies/nutritional supplements/alternative remedies. 2. A review to specifically ensure our patients have had annual screening for screening for depression, screening for tobacco use, and screening for unhealthy alcohol use. For concerning screenings had a discussion with the patient, provided patient education, and recommended follow-up with primary care provider when appropriate. If patient noted with a risk of falling, they received education on strength, gait, and balance training to prevent future risk of falling. Assessment and Plan Assessment and Plan (1) Osteoarthritis of left knee: (2) Lumbar stenosis with neurogenic claudication: (3) Lumbar degenerative disc disease: (4) Lumbar radiculopathy: (5) Osteoarthritis of left hip: (6) Left knee pain: (7) Bilateral hip pain: (8) Encounter for long-term opiate analgesic use: Assessment and Plan: I feel these medications are improving the patient's quality of life and allow them to tolerate activities of daily living as well as participate in recreatio nal activity.? The patient does not report intolerable side effects. The patient is NOT opioid naive and non-pharmacologic and non-opioid treatment has failed to significantly relieve the patient's pain and improve functionality. The patient has a diagnosis that is related to a somatic or visceral pain etiology. ? ?? I reviewed with the patient the potential risks and side effects with the use of? opioid medications including but not limited to respiratory depression,? sedation, and even . I verified the patient has access to naloxone should? these effects occur. I advised the patient to avoid the use of any other? sedation substances including alcohol, THC, and benzodiazepines while? taking opioid medications due to the risk of compounding side effects and? detrimental outcomes. I reviewed the [employer], pain treatment agreement, urine? drug screen, and opioid start talking forms. The patient was advised to let? their family know they had Naloxone in case they would need to administer? the medication.? ?? A drug screen was completed within the last year, and no aberrancies were noted regarding their use of controlled substances. The patient understands they are subject to the terms and conditions of the pain contract that they have signed. ? ?? I have checked an OARRS report on this patient today and there are no aberrancies noted in the prescribing history.? 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
== END 2024-09-12 08:06 | disposition home or self-care (01) ==
PROVIDERS: Visit Provider Nurse Practitioner
DX: M17.12 Unilateral primary osteoarthritis, left knee (principal); M48.062 Spinal stenosis, lumbar region with neurogenic claudication; M51.369 Other intervertebral disc degeneration, lumbar region without mention of lumbar back pain or lower extremity pain; M54.16 Radiculopathy, lumbar region; M16.12 Unilateral primary osteoarthritis, left hip; M25.562 Pain in left knee; M25.551 Pain in right hip; M25.552 Pain in left hip; Z79.891 Long term (current) use of opiate analgesic; M47.816 Spondylosis without myelopathy or radiculopathy, lumbar region; M19.90 Unspecified osteoarthritis, unspecified site; M62.838 Other muscle spasm; M96.1 Postlaminectomy syndrome, not elsewhere classified
CPT/HCPCS: G0463

== ENCOUNTER 2024-12-13 08:23 | Outpatient (OUT) | payer OTHER, SELFPAY ==
--- OUTSIDE RECORDS SUMMARY | 2024-12-13 08:39 | XMS_ITS | CCD ---
Author Organization [facility] Care Team Providers Care Instrument Worker Name Role Phone Chandan Cool Unavailable Unavailable Osorio Sid William Unavailable Unavailable Required, No Pcp Unavailable Unavailable Ada Chuck Unavailable None, No PCP Unavailable Unavailable [facility], [facility] Primary Care Unavailable WEST, DR RADHA Gaxiola Consulting Unavailable DUNCAN ., DR LLUVIA Sheldon Attending Unavailable DUNCAN ., DR LLUVIA Sheldon Admitting Unavailable DUNCAN ., DR LLUVIA Sheldon Consulting Unavailable [facility], [facility] Primary Care Unavailable DUNCAN ., DR LLUVIA Sheldon Attending Unavailable DUNCAN ., DR LLUVIA Sheldon Consulting Unavailable DUNCAN ., DR LLUVIA Sheldon Admitting [facility] Primary Care Unavailable DUNCAN ., DR LLUVIA Sheldon Attending Unavailable DUNCAN ., DR LLUVIA Sheldon Consulting Unavailable DUNCAN ., DR LLUVIA Sheldon Admitting [facility] Primary Care Unavailable ANDERSEN .RAVINDER Consulting Unavailable DUNCAN ., DR LLUVIA Sheldon Admitting Unavailable DUNCAN ., DR LLUVIA Sheldon Attending [facility]available [facility] Primary Care Unavailable ANDERSEN .RAVINDER Consulting Unavailable DUNCAN ., DR LLUVIA Sheldon Admitting Unavailable DUNCAN ., DR LLUVAI Sheldon Attending Unavailable [facility] Primary Care Unavailable LAKSHMIPATHY ., NARENDRANATH Attending Nadira vailable LAKSHMIPATHY ., NARENDRANATH Admitting Nadira vailable [facility], [facility] Primary Care Unavailable LAKSHMIPATHY ., NARENDRANATH Attending Nadira vailable LAKSHMIPATHY ., NARENDRANATH Consulting Nadira vailable LAKSHMIPATHY ., NARENDRANATH Admitting Nadira vailable [facility], [facility] Primary Care Unavailable LAKSHMIPATHY ., NARENDRANATH Consulting Nadira vailable LAKSHMIPATHY ., NARENDRANATH Admitting Nadira vailable LAKSHMIPATHY ., NARENDRANATH Attending Nadira vailable SHAIK MALIKH H Primary Care Unavailable NATHALY .RAVINDER Consulting Unavailable [facility] ., DR LLUVIA Sheldon Attending Unavailable [facility] ., DR LLUVIA Sheldon Admitting Unavailable HELENA, COREAS H Primary Care Unavailable LAKSHMIPATHY ., NARENDRANATH Attending Nadira vailable RINA, DR DOMINGA William Consulting Unavailable LAKSHMIPATHY ., NARENDRANATH Admitting Nadira vailable LAKSHMIPATHY ., NARENDRANATH Consulting Nadira vailable Lakshmaepathy , Tonny Unavailable [phone] Lucero ZAPIEN, Rosa Marion Unavailable Nikunj Yanez MD Primary Care Provider Natanael SENIOR EXAMINER, Mani Unavailable [phone] ELIAS MANZANO Attending Unavailable ELIAS MANZANO Attending Unavailable JONATHAN NAGY Attending Unavailable JONATHAN NAGY Attending Unavailable SHAIKH MALIK Attending Unavailable SHAIKH MALIK Attending Unavailable SHAIKH MALIK Attending Unavailable MANI SANTOYO Attending UnavailMANI Meonn Attending UnavailMANI Menon Attending UnavailHUSAM Pelaez Attending Unavailable HUSAM MUÑOZ Referring Unavailable Medications Current Medications Medication Drug Class(es) Dates Sig (Normalized) Sig (Original) acetaminophen 325 mg oral tablet (1 source) Start: 02-12-2021 End: 02-18-2021 take 2 tablets by mouth every six hours acetaminophen 325 mg oral tablet ; 2 tab(s) orally every 6 hours as needed for pain Quantity: 56 Refills: 0 Ordered: 12-Feb-2021 Jesusita Stevenson Start: 12-Feb-2021 End: 18-Feb-2021 Generic Substitution Allowed albuterol 0.417 mg/ml inhalation solution (3 sources) beta2-Adrenergic Agonist albuterol 1.25 MG/3ML nebulizer solution Take 1.25 mg by nebulization every 6 (six) hours if needed for wheezing Active atenolol 25 mg oral tablet (19 sources) beta-Adrenergic Mook Start: 01-25-2017 take 1 [...] hydrochloride 120 mg extended release oral tablet (20 sources) alpha-Adrenergic Agonist, Histamine-1 Receptor Antagonist Start: [...] oral tablet (20 sources) Macrolide Antimicrobial Start: 02-21-2024 End: 08-15-2024 take 1 tablet by mouth once daily clarithromycin (Biaxin) 250 MG tablet Indications: Rosacea, unspecified Take 1 tablet (250 mg) by mouth Daily 90 tablet 08/16/2024 Active Start: 07-25-2017 take 1 tablet by lizzie [...] propionate 0.05 mg/actuat metered dose nasal spray (20 sources) Corticosteroid Start: 03-15-2023 take 2 spray(s) nasal route in the morning fluticasone (Flonase) 50 MCG/ACT nasal spray Administer 2 sprays into each nostril in the morning. 03/15/2023 Active Start: 03-15-2023 fluticasone (F LONASE) 50 mcg/actuation nasal spray 2 Sprays. 03/15/2023 Active hydroCHLOROthiazide 12.5 mg / losartan potassium 50 mg oral tablet (19 sources) Thiazide Diuretic, Angiotensin 2 Receptor Mook Start: 02-23-2024 End: 08-21-2024 take 1 tablet by mouth once daily losartan-hydroCHLOROthiazide (Hyzaar) 50-12.5 MG tablet Indications: Primary hypertension (CMS/HCC) TAKE 1 TABLET BY MOUTH DAILY 90 tablet 1 02/23/2024 Active meloxicam 15 mg oral tablet (20 sources) Nonsteroidal Anti-inflammator y Drug Start: 04-10-2024 take 1 tablet by mouth once daily meloxicam (Mobic) 15 MG tablet Take 15 mg by mouth Daily 04/10/2024 Active montelukast 10 mg oral tablet (20 sources) Leukotriene Receptor Antagonist Start: 02-23-2024 take [...] 200 mg/ml injection (20 sources) Androgen Start: 09-11-2024 End: 02-26-2025 testosterone cypionate (Depo-Testosterone) 200 MG/ML injection Indications: Hypopituitarism (CMS/HCC) Inject 0.5 mL (100 mg) into the shoulder, thigh, or buttocks every 14 (fourteen) days 3 mL 1 09/11/2024 02/26/2025 Active Start: 12-12-2023 End: 09-11-2024 testosterone cypionate (Depo -Testosterone) 200 MG/ML injection Inject 100 mg into the shoulder, thigh, or buttocks every 28 (twenty-eight) days 12/12/2023 09/11/2024 Discontinued (Reorder) Start: 12-12-2023 testosterone c ypionate (DEPO-TESTOSTERONE) 200 mg/mL injection Inject 100 mg intramuscularly every 4 weeks. 12/12/2023 Active End: 09-11-2024 testosterone enanthate (Xyos catherine) 75 MG/0.5ML solution auto-injector Inject 75 mg under the skin every 7 (seven) days 09/11/2024 Discontinued (Formulary change) zonisamide 50 mg oral capsule (20 sources) Anti-epileptic Agent Start: 04-10-2024 take 1 [...] 31-Dec-2016 Active take 1 tablet by lizzie every six hours as needed oxyCODONE-acetaminophen (Percocet) [...] disease (2 sources) Atherosclerotic heart disease of [place] coronary artery without angina pectoris; Translations: [Atherosclerotic heart disease of [place] coronary artery without angina pectoris] Onset: 05-15-2024 Chronic Disorders of lipid metabolism (20 sources) Hyperlipidemia; Translations: [Hyperlipidemia, unspecified] Onset: 08-18-2023 [...] SHOULDER] Onset: 12-29-2022 Episodic Other endocrine disorders (20 sources) Testicular hypofunction; Translations: [Testicular hypofunction] Onset: 08-18-2023 08-18-2023 Chronic Other endocrine disorders (11 sources) Hypopituitarism; Translations: [Hypopituitarism] Onset: 08-09-2024 08-09-2024 [...] Onset: 01-29-2022 Chronic Other nervous system disorders (19 sources) Chronic pain syndrome; Translations: [Chronic pain [...] Onset: 05-14-2024 Chronic Other upper respiratory disease (20 sources) Seasonal allergic rhinitis; Translations: [Other seasonal allergic rhinitis] Onset: 08-18-2023 08-18-2023 Chronic Other upper respiratory disease (20 sources) Allergic rhinitis; Translations: [Allergic rhinitis, unspecified] Onset: 12-29-2023 12-29-2023 Chronic Residual codes; unclassified (9 sources) Reduced libido; Translations: [Decreased libido] Onset: [...] Date Documented Da te Episodic/Chronic Cardiac dysrhythmias (19 sources) Atrial fibrillation; Translations: [Unspecified atrial fibrillation] Onset: 09-26-2023 Resolved: 11-23-2023 11-23-2023 Chronic Other connective tissue disease (1 source) Other muscle spasm; Translations: [OTHER MUSCLE SPASM] Onset: 05-23-2022 Episodic Other lower respiratory disease (16 sources) Paralysis of diaphragm ; Translations: [Disorders of diaphragm] Onset: 06-06-2024 06-06-2024 Episodic Other nutritional; endocrine; and metabolic disorders (14 sources) Weight increased; Translations: [Abnormal weight gain] [...] Value Interpretation Reference Range Facility ALL HEMOGLOBINon 09-07-2024 Hemoglobin (Bld) [Mass/Vol] 17.8 g/dL 14.0 - 18.0 g/dL [facility] ALL HEMOGLOBINon 08-24-2024 Hemoglobin (Bld) [Mass/Vol] 17.6 g/dL 14.0 - 18.0 g/dL [facility] Office Visiton 07-11-2024 Follow-up visit [id number] Rigo Jefferson 1960 M Provider Department Center 07/11/2024 [id number] CLEMONS Family History Problem Relation Age of Onset Diabetes Mother Hypertension Mother Hypertension Father Coronary artery disease Brother Hypertension Brother Diabetes Brother Family Status - Relation Status Age at Mother Father Brother Level of Service:84904 SC OFFICE/OUTPATIENT ESTABLISHED MOD MDM 30 MIN Reason for Visit and Comments: Coronary Artery Disease [187] Hypertension [340338] - Started on atenolol at last visit, had echo in may Hyperlipidemia [182] Shortness of Breath [145044] - PT ONLY HAS ONE LUNG Normal [facility] 36on 06-11-2024 36 From: Elias Manzano MD [...] in his pulse ox with exercise Normal [facility] Telephoneon 06-11-2024 Telephone [id number] Rigo Jefferson 1960 Provider Department Center 06/11/2024 [id number]-XOQFPPWMADONIS RIVERA Family History Problem Relation Age of Onset Diabetes Mother Hypertension Mother Hypertension Father Coronary artery disease Brother Hypertension Brother Diabetes Brother Family Status - Relation Status Age at Mother Father Brother Normal [facility] No Panel Informationon 05-31 Radiology Study observation (narrative) [facility] XR CERV OTHER 4V AP/LAT/FLX/ EXTon 05-31-2024 IMPRESSION: Severe degenerative disc disease C4-C5. Solid bony fusion C5-C7. Card Processing Clerk: InspireMD Transcribe Date/Time: May 31 2024 9:27P Dictated by : JENN SANTOYO MD This examination was interpreted and the report reviewed and electronically signed by: JENN SANTOYO MD on May 31 2024 9:29PM [facility] * * *Final Report* * * [...] and extension. No prevertebral soft tissue swelling. [facility] Provider, Anderson Aldana [facility] - 05/31/2024 * * *Final Report* [...] disc disease C4-C5. Solid bony fusion C5-C7. Card Processing Clerk: InspireMD Transcribe Date/Time: May 31 2024 9:27P Dictated by : JENN SANTOYO MD This examination was interpreted and the report reviewed and electronically signed by: JENN SANTOYO MD on May 31 2024 9:29PM EST [facility] XR CERV OTHER 4V AP/LAT/FLX/ EXTOrdered By: [facility] Provider on 05-31-2024 [facility] XR Lumbar spine Views W flex ion and W extensionon 05-31-2024 IMPRESSION: Mild to moderate multilevel degenerative change lumbar spine and suspected diffuse intrahepatic skeletal hyperostosis. Card Processing Clerk: SINAN Transcribe Date/Time: May 31 2024 9:29P [...] or compression deformity identified. [facility] * * *Final Report* [...] spine and suspected diffuse intrahepatic skeletal hyperostosis. Card Processing Clerk: SINAN Transcribe Date/Time: May 31 2024 9:29P Dictated by : JENN SANTOYO MD This examination was interpreted and the report reviewed and electronically signed by: JENN SANTOYO MD on May 31 2024 9:31PM EST [facility] Office Visiton 05-14-2024 Follow-up visit [id number] JeffersonRigo 1960 M Date Provider Department Center 05/14/2024 [id number]-ARAYSKELIAS MANZANO AYAAN Rehman [facility] Family History Problem Relation Age of Onset Diabetes Mother Hypertension Mother Hypertension Father Coronary artery disease Brother Hypertension Brother Diabetes Brother Family Status - Relation Status Age at Mother Father Brother Level of Service:52842 SC OFFICE/OUTPATIENT NEW MODERATE MDM 45 MINUTES Reason for Visit and Comments: Hypertension [626780] - New patient to re-establish care. Ref for hypertension. Used to be on antihypertensives but is currently on none. Palpitations [520433] - Sometimes Shortness of Breath [069300] - Has 1 lung, hx of COPD, pulmonary emphysema Dizziness [] Normal [facility] MRI SHOULDER LT WO CONon MRI SHOULDER [...] by: DOMINGA FLYNN Date: 2022-12-08 10:25 Normal [facility] MRI SHOULDER RT WO CONon MRI [...] by: DOMINGA FLYNN Date: 2022-12-08 10:35 Normal [facility] XR CSPINE OBL FLEX_EXTon XR CSPINE [...] RADHA DIAZ Date: 2022-05-31 20:33 Normal [facility] Post Op (General Surgery)on 04-02-2021 Post [...] not he wants to follow-up with a terrazzo polisher in our system. Provider Impressions He is [...] not he wants to follow-up with a terrazzo polisher in our system. Chief Complaint An interactive [...] not he wants to follow-up with a terrazzo polisher in our system. Active Problems COPD (chronic [...] MG Oral Tablet Results/Data Xray Chest 1 [id number] 04:27PMJesusita Stevenson Test NameResultFlagReference Xray Chest 1 View(Report) FINAL REPORT Interpreted by: МАРИНА MARCELO MD 02/12/21 16:52 Patient Name: RIGO JEFFERSON STUDY: CHEST 1 VIEW; 02/12/2021 4:27 pm INDICATION: chest tube removal. COMPARISON: Prior 11:07 a.m. radiograph. ACCESSION NUMBER(S): [id number] ORDERING CLINICIAN: JESUSITA STEVENSON FINDINGS: Left basilar [...] Apr 02 2021 5:38PM EST (Author) Normal [facility] Admission Risk Screen - Adul ton 02-12-2021 Admission Risk Screen - Adult Allergies: Allergies: No Known Allergies: Patient Verification: New W ID Band Applied in my Departmentno Type of ID Patient is WearingW wristband, but not applied here Patient Transferred from Other Facility ([facility], [facility],etc)no Patient Identity Verified Bypatient ID Band [...] AlertFor Ebola-like Symptoms: Isolate Patient and Notify Provider/Comptometer Operator For Contact: Notify Provider/Comptometer Operator Advance Directive: Advance Directive/DNRno (1) Advance [...] Learning Preferencesverbal instruction Cultural Considerationsnone Developmental Considerationsnone Amish Considerationsnone Learning Assessment (Other Learner): Other learner availableno Depression Screen: During the past month, have you often been bothered by feeling down, depressed or hopelessno (1) During the past month, have you often had little interest or pleasure in doing thingsno (1) Have you had any thoughts of harming anyone elseno (1) [place] Suicide: Risk Screen Not Applicable/Able to Answerable to be screened In the Past Month: Have you wished you were or could go to sleep and not wake upno(1) In the Past Month: Have you had any actual thoughts of killing yourself no(1) Lifetime: Have you ever done, started to do, or prepared to do anything to end your lifeno(1) [place] Suicide Risknegative Adult Nutrition Screen: Have you [...] Pain (nonverbal)verbalization (more content not included)... Normal [facility] BASIC METABOLIC PANELon 02-03 Anion gap [Moles/Vol] 15 mmol/L Normal 10 - 20 [facility] Comment on above: Performed By: #### B MP #### [facility] [address] [place] [address] Calcium [Mass/Vol] 9.5 mg/dL Normal 8.6 - 10.6 [facility] Comment on above: Performed By: #### B MP #### [facility] [address] [place] [address] Chloride [Moles/Vol] 102 mmol/L Normal 98 - 107 [facility] Comment on above: Performed By: #### B MP #### [facility] [address] [place] [address] Creatinine [Mass/Vol] 0.98 mg/dL Normal 0.50 - 1.30 [facility] Comment on above: Performed By: #### B MP #### [facility] [address] [place] [address] GFR- AM. >60 Normal >60 [facility] [place] Comment on above: Result Comment: CALC ULATIONS OF ESTIMATED GFR ARE PERFORMED USING THE MDRD STUDY EQUATION FOR THE IDMS-TRACEABLE CREATININE METHODS. CLIN CHEM 2007;53:766-72 Performed By: #### B MP #### [facility] [address] [place] [address] GFR-NON AM. >60 Normal >60 [facility] Comment on above: Performed By: #### B MP #### [facility] [address] [place] [address] Glucose [Mass/Vol] 133 mg/dL High 74 - 99 [facility] Comment on above: Performed By: #### B MP #### [facility] [address] [place] [address] HCO3 (Bld) [Moles/Vol] 24 mmol/L Normal 21 - 32 [facility] Comment on above: Performed By: #### B MP #### [facility] [address] [place] [address] Potassium [Moles/Vol] 4.3 mmol/L Normal 3.5 - 5.3 [facility] Comment on above: Performed By: #### B MP #### [facility] [address] [place] [address] Sodium [Moles/Vol] 137 mmol/L Normal 136 - 145 [facility] Comment on above: Performed By: #### B MP #### [facility] [address] [place] [address] Urea nitrogen [Mass/Vol] 17 mg/dL Normal 6 - 23 [facility] Comment on above: Performed By: #### B MP #### [facility] [address] [place] [address] CBCon 02-12-2021 Erythrocyte distribution width (RBC) [Ratio] 12.1 % Normal 11.5 - 14.5 [facility] Comment on above: Performed By: #### C BC #### [facility] [address] [place] [address] Hematocrit (Bld) [Volume fraction] 45.8 % Normal 41.0 - 52.0 [facility] Comment on above: Performed By: #### C BC #### [facility] [address] [place] [address] Hemoglobin (Bld) [Mass/Vol] 15.0 g/dL Normal 13.5 - 17.5 [facility] Comment on above: Performed By: #### C BC #### [facility] [address] [place] [address] MCHC (RBC) [Mass/Vol] 32.8 g/dL Normal 32.0 - 36.0 [facility] Comment on above: Performed By: #### C BC #### [facility] [address] [place] [address] MCV (RBC) [Entitic vol] 94 fL Normal 80 - 100 [facility] Comment on above: Performed By: #### C BC #### [facility] [address] [place] [address] NUCLEATED RBC 0.0 /100 WBC Normal 0.0-0.0 [facility] [place] Comment on above: Performed By: #### C BC #### [facility] [address] [place] [address] Platelets (Bld) [#/Vol] 228 10*3/uL Normal 150 - 450 [facility] Comment on above: Performed By: #### C BC #### [facility] [address] [place] [address] RBC 4.85 x10E12/L Normal 4.50 - 5.90 [facility] Comment on above: Performed By: #### C BC #### [facility] [address] [place] [address] WBC (Bld) [#/Vol] 12.8 10*3/uL High 4.4 - 11.3 [facility] Comment on above: Performed By: #### C BC #### [facility] [address] [place] [address] Clinical Event Note-POCon Clinical Event Note-POC Clinical [...] 00:41 by Nataliia Ferris ( (Resident)) Normal [facility] Daily Progress Note-Surgeryo n 02-12-2021 Daily Progress [...] yet. Objective Data: Objective Information: T PRBPSpO2 [id number]/8695% Date/Time02/12 6:4902/12 6:4902/12 6:4902/12 6:4902/12 6:49 Range(35.4C - 36.4C ) (77 - 99 ) (17 - 18 ) (127 - 147 )/ (86 - 91 ) (95% - 96% ) Pain reported at 02/12 2:54: 6 = Moderate ---- Intake and Output ----- Mn/Dy/Year TimeIntakeOutputNet Feb 12, 2021 6:00 [id number] Feb 11, 2021 10:00 [id number] The Intake and Output Totals for the last 24 hours are: IntakeOutputNet [id number] Physical Exam by System: Constitutional: Well developed, [...] Last Updated: 13-Feb-2021 10:13 by Chuck Cook) [facility] Discharge Planning [id number] 0 02-12-2021 Discharge Planning Note2 Discharge Planning: Needs Prior to Discharge (ex. Home Care Orders, IV/O2 prescriptions) Follow up appointments Discharge Barriers (ex. Avoidable days, wait guardianship, pt refuse leave) None Planned Dispositionhome Discharge DestinationHome [facility] [place] of Choice Explainedyes preference Anticipated Discharge [id number] Discharge Planning 02/12/2021 0135 Discharge Plan Patient transferred from [place] [address] from PACU for diaphragm plication. Pt is A&O times 4. at 3 liters oxygen. Pt denies any medical assistant per diem use at home. Pt emergency personnel adviser Sahil Joe- son. Pt have valuable belongings [...] needs when medically ready. [facility] Status[facility] Inpatient Discharge disposition: Home Potential Barriers: none ADOD: 02/12. wedding coordinator will continue to follow for discharge planning needs. Franny Gilliam RN, Transitional Dinkey Skinner/TCC, pager [phone] Discharge note: 02/12/21 @ 1735: PT discharged home at this time. pts peripheral IV taken out prior to DC. pt given DC instructions. pt verbalized understanding. pt refused transport and walked downstairs with his son.---Erika miramontes RN Assessment: Discharge Planning Assessment [id number] Primary Contact Name and NumberAdam [phone](1) Stated Reason for Admissiondiaphragm plication(2) Arrived FromOR (2) Lives Withparent(s)(2) Living Arrangementshouse(2) Resource/Environmental Concernsnone(2) Anticipated [facility](2) Services Anticipated at Transitionnone(2) Discharge Documentation: Discharge/Transfer Date/[id number] 17:35 Discharge Modeambulatory Discharged Accompanied Byfamily member Transportation Methodprivate car Valuables/Medications/Belo ngings Returnedyes Final DispositionHome Electronic Signatures: Franny Gilliam (CLIN COOR) (Signed 12-Feb-2021 13:19) Authored: Discharge Planning Erika Miramontes (RN) (Signed 12-Feb-2021 17:40) Authored: Discharge Planning, Discharge Documentation Mary Beth Holcomb (ASIA) (Signed 12-Feb-2021 01:41) Authored: Discharge Planning, Assessment Last Updated: 12-Feb-2021 17:40 by Erika Miramontes (RN) References: 1. Data Referenced From Patient Profile - Preop v2 11-Feb-2021 12:02 2. Data Referenced From Patient Profile - Adult v2 12-Feb-2021 01:31 Normal [facility] Discharge [id number] Discharge Profile2 Discharge Orders: Anticipated Discharge Date: Anticipated Discharge [id number] DNAR: DNAR Status: none Call Provider If [...] Schedule in1 week Follow-Up Appointment 02: Physician/Dept/ServiceDr. Cook - surgery Reason for Referralhospital follow-up / diaphragm pacer removal, hemidiaphragm plication Call to Schedule in2 weeks [place] [address] Arvilla Yvette [address] Phone [phone] Other Clinician Instructions: Other Instructions: Other Clinician [...] Appointments, Other Clinician Instructions, Gold Form - Professor Of Physics Summary Last Updated: 12-Feb-2021 15:27 by Jesusita Stevenson ( (Resident)) Normal [facility] Laboratory - Chemistry and C hemistry - challengeon 02-12-2021 Anion gap [Moles/Vol] 15 mmol/L 10 - 20 KM-Ytalkit-X [address] Work Phone: Calcium [Mass/Vol] 9.5 mg/dL 8.6 - 10.6 MG-Tino raysa-G [address] Work Phone: Chloride [Moles/Vol] 102 mmol/L 98 - 107 OU-Tkpccic-O [address] Work Phone: CO2 [Moles/Vol] 24 mmol/L 21 - 32 [facility] Work Phone: Creatinine [Mass/Vol] 0.98 mg/dL See Below AG[facility]Wkchzwy[facility] Work Phone: Comment on above: Reference Range: 0.5 0 - 1.30 Glucose [Mass/Vol] 133 mg/dL above high threshold 74 - 99 YC[facility]wgtjlx[facility] Work Phone: Potassium [Moles/Vol] 4.3 mmol/L 3.5 - 5.3 YI[facility]oabh[facility] Work Phone: Sodium [Moles/Vol] 137 mmol/L 136 - 145 MG[facility]Tino raysa[facility] Work Phone: Urea nitrogen [Mass/Vol] 17 mg/dL 6 - 23 GC-Bppnunz-C [facility] Work Phone: Laboratory - Hematology and Cell countson 02-12-2021 Erythrocyte distribution width (RBC) [Ratio] 12.1 % See Below [facility] Work Phone: Comment on above: Reference Range: 11. 5 - 14.5 Hematocrit (Bld) [Volume fraction] 45.8 % See Below [facility] Work Phone: Comment on above: Reference Range: 41. 0 - 52.0 Hemoglobin (Bld) [Mass/Vol] 15.0 g/dL See Below [facility] Work Phone: Comment on above: Reference Range: 13. 5 - 17.5 MCHC (RBC) [Mass/Vol] 32.8 g/dL See Below [facility] Work Phone: Comment on above: Reference Range: 32. 0 - 36.0 MCV (RBC) [Entitic vol] 94 fL 80 - 100 [facility]abs[facility] Work Phone: Platelets (Bld) [#/Vol] 228 10*3/uL 150 - 450 NV[facility]urfs[facility] [place] [address] Work Phone: RBC (Bld) [#/Vol] 4.85 {x10E12/L} See Below MG -Surgery-G [address] Work Phone: Comment on above: Reference Range: 4.5 0 - 5.90 WBC (Bld) [#/Vol] 12.8 10*3/uL above high threshold 4.4 - 11.3 QB[facility] [place] [address] Work Phone: No Panel Informationon 02-12 >60 >60 VV[address]Igcrvth-T [address] [facility] Work Phone: Comment on above: CALCULATIONS OF LANRE MATED GFR ARE PERFORMED USING THE MDRD STUDY EQUATION FOR THE IDMS-TRACEABLE CREATININE METHODS. CLIN CHEM 2007;53:766-72 0.0 {/100_WBC} 0.0-0.0 [facility] [place] [address] Work Phone: Order Reconciliationon 02-12 Order Reconciliation [...] tab(s) orally 2 times a day Normal [facility] Patient Profile - Adult v2on 02-12-2021 Patient Profile - Adult v2 Profile: Initial Info: How to be AddressedDel(1) Spoken Language PreferredEnglish (1) Stated Reason for Admissiondiaphragm plication Patient Belongingsremains with patient Patient Belongings Remaining with Patientcash/credit card; clothing Arrived FromOR Medications Brought to Hospitalno Are you currently using the Personal Electronic Health Record or G2 Web Servicesno (1) Wants Family/Rep Notified of Admissionyes, primary contact Notify PCPnotify PCP Informed of Patient Visiting Rightsyes General Health: Blood Avoidance/Restrictionsnone (1) Previous Transfusion Reactionno(2) Weight in kg109.8 kilogram(s)(3) Weight in cti677 pound(s) Weight Methodactual (measured) (3) Scale Typestanding (3) Height in cm182.8 centimeter(s) Height in feet6 feet(3) Height in inches0 inch(es)(3) Height Methodstated (3) BMI (kg/m2)32.858 square meter [facility] Based Care: How would you [...] From 1. Vital Signs 11-Feb-2021 12:02 Normal [facility] Radiologyon 02-12-2021 XR Chest Single view Normal VY-Svlcavh-C [address] Work Phone: XR Chest Single view Normal MY-Apezvlr-G [address] Work Phone: XR Chest Single view Normal QY-Uzaxopg-W [address] Work Phone: TH CHEST 1 VIEWon 02-12-2021 TH CHEST 1 VIEW Patient Name: RIOG JEFFERSON STUDY: CHEST 1 VIEW; 02/12/2021 4:27 pm INDICATION: chest tube removal. COMPARISON: Prior 11:07 a.m. radiograph. ACCESSION NUMBER(S): [id number] ORDERING CLINICIAN: JESUSITA STEVENSON FINDINGS: Left basilar [...] Electronically signed by: МАРИНА MARCELO MD Normal [facility] TH CHEST 1 VIEW Patient Name: RIGO JEFFERSON STUDY: CHEST 1 VIEW; 02/12/2021 11:58 am INDICATION: chest tube wet seal. COMPARISON: 7:02 a.m. radiograph. ACCESSION NUMBER(S): [id number] ORDERING CLINICIAN: JESUSITA STEVENSON FINDINGS: Left basilar [...] Electronically signed by: МАРИНА MARCELO MD Normal [facility] CHEST 1 VIEW Patient Name: RIGO JEFFERSON STUDY: CHEST 1 VIEW; 02/12/2021 7:13 am INDICATION: POD 1 s/p diaphragm plication. COMPARISON: 02/11/2021. ACCESSION NUMBER(S): [id number] ORDERING CLINICIAN: SAW SALEEM FINDINGS: Left basilar [...] Electronically signed by: МАРИНА MARCELO MD Normal [facility] No Panel Informationon 02-11 [place] [address] Work Phone: Operative Reports - [facility] [place] [address] Patient Name: RIGO JEFFERSON : 1960 Date of Service: 02/11/2021 Patient Location: [place] [address] Patient Type: I Surgeon: Chuck Cook MD Report Type: Operative Reports PREOPERATIVE DIAGNOSIS: Chronic respiratory failure, left diaphragm dysfunction. POSTOPERATIVE DIAGNOSIS: Chronic respiratory failure, left diaphragm dysfunction. OPERATION/PROCEDURE: Laparoscopic left diaphragm plication with removal of previous diaphragm pacing wires. SURGEON: Chuck Cook MD CAGE MAKER MACHINE(S): Saw Saleem MD. There was no available resident. ANESTHESIA: LOCATION: [facility]. CLINICAL NOTE: This is a [...] TT: 02/12/2021 12:44 PM EST DICTATION NUMBER: [id number] BRIE JOB NUMBER: [id number] CC: PT STATES NONE PCP Electronic Signatures: Chuck Cook) (Signed on 13-Feb-2021 10:15) Authored Unsigned, Draft (SYS GENERATED) (Entered on 12-Feb-2021 12:44) Entered Last Updated: 13-Feb-2021 10:15 by Chuck Cook) Normal [facility] Order Reconciliationon 02-11 Order Reconciliation Page 1 Admission Reconciliation Document Reconciliation Type: Admission from OR requested on behalf of Saw Saleem (Physician) done by Saw Saleem) Admission from OR - Reconciliation: 11-Feb-2021 18:31 by: Saw Saleem) Home MedicationsEnteredLast Dose TakenReconciled with current Order Reconciliation Comment/ Additional Information Kristina 24 Hour Allergy oral tablet 1 tab(s) orally once a [id number]-Feb-2021 AM Reviewed and Held clarithromycin 250 mg oral tablet 250 milligram(s) orally once a day [id number] Clarithromycin Tablet (BIAXIN)DOSE = 250 mg Oral Every 24 Hoursclarithromycin 250 mg oral tablet continued as the inpatient order Clarithromycin diclofenac sodium 50 mg oral delayed release tablet 1 tab(s) orally 2 times a [id number]-0214 AM Reviewed and Held oxycodone-acetaminophen 5 mg-300 mg oral tablet 1 tab(s) orally 2 times a day [id number] AM Reviewed and Held Additional Current Orders [...] 15 minute(s)Clinician Notes: Carlota-operative order ONLY Normal [facility] Patient Profile - Preop v2on 02-11-2021 Patient Profile - Preop v2 Profile: Initial Info: How to be AddressedDel(1) Spoken Language PreferredEnglish (1) Source of Informationpatient Are you currently using the Personal Electronic Health Record or G2 Web Servicesno (1) Are you interested in learning more about [employer] for the management of your healthnot at this time Stated Reason for AdmissionL pulling of wires/pulling lung down Primary Contact Name and NumberAda [phone] Patient Belongingspatient educated regarding responsibility for personal items Medications Brought to Hospitalno General Health: Weight in kg109.8 kilogram(s) Weight in rwh423 pound(s) Weight Methodactual (measured) Scale Typestanding Height [...] Learning Preferencesverbal instruction Cultural Considerationsnone Developmental Considerationsnone Amish Considerationsnone Other learner availableno [place] RiskPatient location auto qualifies him/her for HIGH RISK. Are there any cultural, spiritual, evangelical practices/values/needs that are important for us to [...] Profile - Adult v2 12-Dec-2017 16:00 Normal [facility] Preop Checkliston 02-11-2021 Preop Checklist Preop Checklist: Preop Checklist: Arrival [id number] Arrival Time11:48 Procedure TypeL laparoscopic diaphragm plication Temperature C36.1 degrees C Temperature F96.9 degrees F Heart Rate70 beats per minute Respiratory Rate12 breath per minute Blood Pressure Zrvgvqky386 mm/Hg Blood Pressure Lxpsvrzuh20 mm/Hg NPO [id number]-[id number] 00:00 ID Band Onyes Allergy Bandno known allergies Consent Signedpending H&P Completeyes Anesthesia Assessment Completedpending EKG Performedsee results tab Chest X-Ray Performedsee results tab HCG Urine TestN/A Chlorhexadine Bath Givennot applicable Nasal Antiseptic Appliednot applicable Hair Washednot applicable Soap and water bath with hair shampoo the night before surgerynot applicable Hat placed on infant prior to transportnot applicable SCD's Appliedsent to OR CATHERINE Hose Appliednot ordered Denturesnot applicable Prostheticsnot applicable [...] 11-Feb-2021 12:02 by Jany Ann (RN) Normal [facility] Radiologyon 02-11-2021 XR Chest Single view Please click on the link to view the study images Normal [place]sbpjcn[place] [address] Work Phone: [facility] Surgical Pathology Depar tmenton 02-11-2021 [facility] Surgical Pathology Department Name RIGO JEFFERSON Pathologist: JACINTO MURRIETA MD Date of Procedure: 02/11/2021 Date Received: 02/12/2021 Date Reported 02/19/2021 Submitting Physician: CHUCK COOK M.D. Location: [facility] Copy To/Referring/Attending: CHUCK COOK M.D. Other [...] this case. Clinical History: Physician Contact Number: [phone] Fixative (A): Fresh Clinical Diagnosis History: disorders of diaphragm Specimens Submitted As: A: PACING WIRE Gross Description: Received in formalin, labeled with the patient's name and hospital number, are multiple wires with a piece of adipose tissue attached measuring 3.0 x 1.6 x 1.0 cm. A photograph is taken. The attached soft tissue is submitted entirely in one cassette. EXB exb/02/12/2021 [facility] Department of Pathology [address] [place] [address] Normal [facility] Comment on above: Performed By: #### U HCS ####[facility] Surgical Pathology [address] [place] [address] CORONAVIRUS 2019, SCREEN ASY MPTOMATICon 02-10-2021 SARS-CoV-2 (COVID-19) RNA BECCA+probe Ql (Unsp spec) Not detected Normal Not Detected [facility] Comment on above: Result Comment: . This [...] patient management decisions. Fact sheet for providers: https://www.fda.gov/media/742589/download Fact sheet for patients: https://www.fda.gov/media/766719/download This test has received FDA Emergency Use Authorization (EUA) and has been verified by [facility] ([facility]). This test is only authorized for the duration of time that circumstances exist to justify the authorization of the emergency use of in vitro diagnostic tests for the detection of SARS-CoV-2 virus and/or diagnosis of COVID-19 infection under section 564(b)(1) of the Act, 21 U.S.C. 360bbb-3(b)(1), unless the authorization is terminated or revoked sooner. [facility] is certified under CLIA-88 as qualified to perform high complexity testing. Testing is performed in the [facility] laboratories located at [address] [place] [address]. Performed By: #### C OVSC #### [place] [address] Covid 19 Resultson SARS-CoV-2 (COVID-19) RNA BECCA+probe [...] be contacted by the [facility] to see if any of your [...] or Naproxen (Aleve) can also be used. Tmlh-qns-oglypun cough and cold medicines can be used according to the instructions on the package. Some tkfn-skw-dnhacqq medicines also contain acetaminophen. Make sure you [...] water are not available, use alcohol-based hand plate inspector. Avoid touching your eyes, nose, and [...] 24 alem (more content not included)... Normal [facility] CORONAVIRUS 2019, SCREEN ASY MPTOMATICon 02-09-2021 Lab Specimen Source Nasal, Nasopharyngeal Normal [facility] Comment on above: Performed By: #### C OVSC #### [facility] [address] [place] [address] Coronavirus 2019 RNA by PCR, Screening Asymptomticon 02-09-2021 Coronavirus 2019 RNA by PCR, Screening Asymptomtic Not detected Normal See Below IM-Wvlgflb-O [facility] Work Phone: Comment [...] make patient management decisions.Fact sheet for providers: https://www.fda.gov/media/507008/downloadFact sheet for patients: https://www.fda.gov/media/602998/downloadThis test has received FDA Emergency Use Authorization (EUA) and has been verified by [facility] ([facility]). This test is only authorized for the duration of time that circumstances exist to justify the authorization of the emergency use of in vitro diagnostic tests for the detection of SARS-CoV-2 virus and/or diagnosis of COVID-19 infection under section 564(b)(1) of the Act, 21 U.S.C. 360bbb-3(b)(1), unless the authorization is terminated or revoked sooner. [facility] is certified under CLIA-88 as qualified to perform high complexity testing. Testing is performed in the [facility] laboratories located at [address] [place] [address]. BASIC METABOLIC PANELon 05-2 Anion gap [Moles/Vol] 13 mmol/L Normal 10 - 20 [facility] Comment on above: Performed By: #### B MP ####[id number] [place] [address] Calcium [Mass/Vol] 9.7 mg/dL Normal 8.6 - 10.6 [facility] Comment on above: Performed By: #### B MP ####[id number] [place] [address] Chloride [Moles/Vol] 108 mmol/L High 98 - 107 [facility] Comment on above: Performed By: #### B MP ####[id number] [place] [address] Creatinine [Mass/Vol] 1.04 mg/dL Normal 0.50 - 1.30 [facility] Comment on above: Performed By: #### B MP ####[id number] [place] [address] GFR- AM. >60 Normal >60 [facility] [place] Comment on above: Result Comment: CALC ULATIONS OF ESTIMATED GFR ARE PERFORMED USING THE MDRD STUDY EQUATION FOR THE IDMS-TRACEABLE CREATININE METHODS. CLIN CHEM 2007;53:766-72 Performed By: #### B MP ####[id number] [place] [address] GFR-NON AM. >60 Normal >60 [facility] Comment on above: Performed By: #### B MP ####[id number] [place] [address] Glucose [Mass/Vol] 91 mg/dL Normal 74 - 99 [facility] Comment on above: Performed By: #### B MP ####[id number] [place] [address] HCO3 (Bld) [Moles/Vol] 29 mmol/L Normal 21 - 32 [facility] Comment on above: Performed By: #### B MP ####[id number] [place] [address] Potassium [Moles/Vol] 4.6 mmol/L Normal 3.5 - 5.3 [facility] Comment on above: Performed By: #### B MP ####[id number] [place] [address] Sodium [Moles/Vol] 145 mmol/L Normal 136 - 145 [facility] Comment on above: Performed By: #### B MP ####[id number] [place] [address] Urea nitrogen [Mass/Vol] 13 mg/dL Normal 6 - 23 [facility] Comment on above: Performed By: #### B MP ####[id number] [place] [address] CBCon 01-27-2021 Erythrocyte distribution width (RBC) [Ratio] 12.2 % Normal 11.5 - 14.5 [facility] Comment on above: Performed By: #### C BC ####[id number] [place] [address] Hematocrit (Bld) [Volume fraction] 46.7 % Normal 41.0 - 52.0 [facility] Comment on above: Performed By: #### C BC ####[id number] [place] [address] Hemoglobin (Bld) [Mass/Vol] 15.1 g/dL Normal 13.5 - 17.5 [facility] Comment on above: Performed By: #### C BC ####[id number] [place] [address] MCHC (RBC) [Mass/Vol] 32.3 g/dL Normal 32.0 - 36.0 [facility] Comment on above: Performed By: #### C BC ####[id number] [place] [address] MCV (RBC) [Entitic vol] 96 fL Normal 80 - 100 [facility] Comment on above: Performed By: #### C BC ####[id number] [place] [address] NUCLEATED RBC 0.0 /100 WBC Normal 0.0-0.0 [facility] [place] Comment on above: Performed By: #### C BC ####[id number] [place] [address] Platelets (Bld) [#/Vol] 209 10*3/uL Normal 150 - 450 [facility] Comment on above: Performed By: #### C BC ####[id number] [place] [address] RBC 4.85 x10E12/L Normal 4.50 - 5.90 [facility] Comment on above: Performed By: #### C BC ####[id number] [place] [address] WBC (Bld) [#/Vol] 7.2 10*3/uL Normal 4.4 - 11.3 [facility] Comment on above: Performed By: #### C BC ####[id number] [place] [address] Follow Up (General Surgery)o n 01-27-2021 Follow [...] EKG; Status:Hold For - Scheduling; Requested for:27Jan2021; Perform:[facility] [place] 1800; Due:27Apr2021;Ordered; For:Diaphragm dysfunction, HTN (hypertension); Ordered By:Chandan Cool; Unlinked Continue: Atorvastatin Calcium 40 MG Oral Tablet Dispense: 30 Days ; #:30; Refill: 0; MICAELA = N; Record; Last Updated By: Travon Chandan; 01/27/2021 11:56:56 AM Continue: Clarithromycin 500 MG [...] 2017 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 He was turning the device off 1-2 [...] MG Oral Tablet Vitals Vital Signs Recorded: 36Dpz0916 11:12AM Cnrmsoelmrp70.1 F Heart Rate77 Tgofgakm278 Xzjmdrjfm77 Idzbfw991 lb BMI Snzcbndtjq36.64 kg/m2 BSA Calculated2.33 Tobacco Useb) No Physical [...] the r (more content not included)... Normal [employer] No Panel Informationon 01-27 [email or web address] 1:8080 [email or web address]?R etrieveTestByDateTime?Sherita wdgBC=[id number]&Date=&Time=13%3a24%3a34%3a 00&TestType=ECG&Site=1&Out putType=PDF&Ext=PDF EM-Zncocus-C [address] Work Phone: Normal sinus rhythm MG-Ramos rgery-G [address] Work Phone: [phone] Normal TJ-Xwnmxpg-A [address] Work Phone: [phone] 1 JP-Gsapals-E [address] Work Phone: [phone] 1 SP-Wbkupgq-C [address] Work Phone: [phone] 1 RO-Cjfxxnm-E [address] Work Phone: [phone] 1 UQ-Vhepmyk-J [address] Work Phone: [phone] 1 VO-Zekdisz-Q [address] Work Phone: [phone] 1 YG-Hmdkazx-U [address] Work Phone: [phone] 1 DX-Krhiwtd-W [address] Work Phone: [phone] 1 RV-Wwxurfs-C [address] Work Phone: [phone] 1 XO-Junhsxf-I [address] Work Phone: [phone] 1 GR-Fiyxxue-E [address] Work Phone: [phone] 1 QK-Hiyevcd-W [address] Work Phone: [phone] 1 HI-Quvgiid-T [address] Work Phone: [phone] 1 LG-Kehgnat-U [address] Work Phone: [phone] 1 YO-Bqghjue-V [address] Work Phone: Radiologyon 01-27-2021 XR Chest 2 Views Normal MG-Surge ry-G [address] Work Phone: [phone] TH CHEST 2 VIEW PA AND LATon 01-27-2021 TH CHEST 2 VIEW PA AND LAT Patient Name: RIGO JEFFERSON STUDY: CHEST 2 VIEW PA AND LAT; 01/27/2021 11:00 am INDICATION: chronic hypoventilation. COMPARISON: Chest radiograph 04/03/2019 ACCESSION NUMBER(S): [id number] ORDERING CLINICIAN: CHUCK COOK FINDINGS: Inspiratory and [...] Electronically signed by: ANGI CAICEDO MD Normal [facility] Tobacco Screening.on 021 Tobacco use status [facility] b) No QG-Hwldjvy-Z [address] Work Phone: Tobacco Screening. b) No MG-Tino raysa-G [address] Work Phone: Otheron 04-03-2019 XR Chest 2 views Interpreted by: ISAK04/03/19 14:06MRN: [id number] Name: RIGO JEFFERSON STUDY:CHEST 2 VIEW PA [...] Electronically signed by: ISAK 04/03/19 14:06 Normal FJ-Tfxdvgu-J [facility] [address] Work Phone: Vital Signs Date Time Vital Sign Value Performing Clinician Facility 09-11-2024 10:23-0500 Body height 182.9 cm Husam Muñoz MD Work Phone: [facility] 09-11-2024 10:23-0500 Body mass index (BMI) [Ratio] 31.46 kg/m2 Husam Muñoz MD Work Phone: [facility] 09-11-2024 10:23-0500 Body weight 105.23 kg Husam Muñoz MD Work Phone: [facility] 09-11-2024 10:23-0500 Heart rate 80 /min Husam Muñoz MD Work Phone: [facility] 07-09-2024 10:24-0500 Body height 182.9 cm Mani Santoyo SENIOR EXAMINER Work Phone: [facility] 07-09-2024 10:24-0500 Body mass index (BMI) [Ratio] 30.38 kg/m2 Mani Santoyo SENIOR EXAMINER Work Phone: [facility] 07-09-2024 10:24-0500 Body temperature 97.11 [degF] Mani Santoyo SENIOR EXAMINER Work Phone: [facility] 07-09-2024 10:24-0500 Body weight 101.61 kg Mani Santoyo SENIOR EXAMINER Work Phone: [facility] 07-09-2024 10:24-0500 Diastolic blood pressure 70 mm[Hg] Mani Santoyo SENIOR EXAMINER Work Phone: [facility] 07-09-2024 10:24-0500 Heart rate 81 /min Mani Santoyo SENIOR EXAMINER Work Phone: [facility] 07-09-2024 10:24-0500 Respiratory rate 16 /min Mani Santoyo SENIOR EXAMINER Work Phone: [facility] 07-09-2024 10:24-0500 SaO2% (BldA) [Mass fraction] 98 % Mani Santoyo SENIOR EXAMINER Work Phone: [facility] 07-09-2024 10:24-0500 Systolic blood pressure 110 mm[Hg] Mani Santoyo SENIOR EXAMINER Work Phone: [facility] 06-06-2024 15:30-0400 Body mass index (BMI) [Ratio] 29.43 kg/m2 Mani Santoyo SENIOR EXAMINER Work Phone: [facility] 06-06-2024 15:30-0400 Body temperature 97.39 [degF] Mani Santoyo SENIOR EXAMINER Work Phone: [facility] 06-06-2024 15:30-0400 Body weight 98.43 kg Mani Santoyo SENIOR EXAMINER Work Phone: [facility] 06-06-2024 15:30-0400 Diastolic blood pressure 78 mm[Hg] Mani Santoyo SENIOR EXAMINER Work Phone: [facility] 06-06-2024 15:30-0400 Heart rate 73 /min Mani Santoyo SENIOR EXAMINER Work Phone: [facility] 06-06-2024 15:30-0400 Respiratory rate 16 /min Mani Santoyo SENIOR EXAMINER Work Phone: [facility] 06-06-2024 15:30-0400 SaO2% (BldA) [Mass fraction] 96 % Mani Santoyo SENIOR EXAMINER Work Phone: [facility] 06-06-2024 15:30-0400 Systolic blood pressure 122 mm[Hg] Mani Santoyo SENIOR EXAMINER Work Phone: [facility] 05-03-2024 11:08-0400 Body height 182.9 cm Mani Waltonpatrick SENIOR EXAMINER Work Phone: [facility] 05-03-2024 11:08-0400 Body mass index (BMI) [Ratio] 28.89 kg/m2 Mani Santoyo SENIOR EXAMINER Work Phone: [facility] 05-03-2024 11:08-0400 Body temperature 98.2 [degF] Mani Santoyo SENIOR EXAMINER Work Phone: [facility] 05-03-2024 11:08-0400 Body weight 96.62 kg Mani Waltonpatrick SENIOR EXAMINER Work Phone: [facility] 05-03-2024 11:08-0400 Diastolic blood pressure 74 mm[Hg] Mani Santoyo SENIOR EXAMINER Work Phone: [facility] Comment on above: 134/80 RT ARM LG CUFF 05-03-2024 11:08-0400 Heart rate 102 /min Mani Waltonpatrick SENIOR EXAMINER Work Phone: [facility] Comment on above: 95% O2 05-03-2024 11:08-0400 Systolic blood pressure 164 mm[Hg] Mani Santoyo SENIOR EXAMINER Work Phone: [facility] Comment on above: 134/80 RT ARM LG CUFF 02-12-2021 14:10-0400 SaO2% (BldA) [Mass fraction] 95 % No Pcp Required [facility] 02-12-2021 14:00-0400 Body temperature 97.16 [degF] No Pcp Required [facility] 02-12-2021 14:00-0400 Diastolic blood pressure 83 mm[Hg] No Pcp Required [facility] 02-12-2021 14:00-0400 Heart rate 81 /min No Pcp Required [facility] 02-12-2021 14:00-0400 Respiratory rate 18 /min No Pcp Required [facility] 02-12-2021 14:00-0400 Systolic blood pressure 131 mm[Hg] No Pcp Required [facility] 02-12-2021 03:31-0400 Body height 182.8 cm No Pcp Required [facility] 02-12-2021 03:31-0400 Body weight 109.8 kg No Pcp Required [facility] 01-27-2021 11:12-0400 Body mass index (BMI) [Ratio] 33.64 kg/m2 Chuck Cook MD Work Phone: PP-[address] Work Phone: 01-27-2021 11:12-0400 Body surface area Derived from formula 2.33 m2 Chuck Cook MD Work Phone: KQ-[address] Work Phone: 01-27-2021 11:12-0400 Body temperature 96.1 [degF] Chuck Cook MD Work Phone: [address] Work Phone: 01-27-2021 11:12-0400 Body weight 112.49 kg Chuck Cook MD Work Phone: MR-[address] Work Phone: 01-27-2021 11:12-0400 Diastolic blood pressure 85 mm[Hg] Chuck Cook MD Work Phone: NX-[address] Work Phone: 01-27-2021 11:12-0400 Heart rate 77 /min Chuck Cook MD Work Phone: CE-[address] Work Phone: 01-27-2021 11:12-0400 Systolic blood pressure 157 mm[Hg] Chuck Cook MD Work Phone: ZO-[address] Work Phone: 04-03-2019 15:37-0400 BMI (Body Mass Index) 30.11 kg/m2 Chandan Travon OF-Xpizplw-Ugzehdp 2100 Work Phone: 04-03-2019 15:37-0400 Body Temperature 97.9 [degF] Chandan Swanlake DH-Sqwhldr-Sswh ell 2099 Work Phone: 04-03-2019 15:37-0400 Body weight 100.7 kg Chandan Swanlake HT-Ycitbjn-Dnxvy ll 2100 Work Phone: 04-03-2019 15:37-0400 BP Diastolic 74 mm[Hg] Chandan Travon WR-Pwhmusz-Ityfb ll 2099 Work Phone: 04-03-2019 15:37-0400 BP Systolic 121 mm[Hg] Chandan Travon RN-Awwgcpu-Nvigm ll 2099 Work Phone: 04-03-2019 15:37-0400 BSA (Body Surface Area) 2.23 m2 Chandan Swanlake ZU-Kqqxkkj-Oklzwcr 2099 Work Phone: 04-03-2019 15:37-0400 Height 182.88 cm Chandan Travon ZA-Rwejozg-Bqgau ll 2099 Work Phone: 04-03-2019 15:37-0400 Pulse (Heart Rate) 58 /min Chandan Travon KQ-Bmdqsat-Sz lwell 2099 Work Phone: Encounters Encounter Date Encounter Type Care Provider Facility Start: 09-11-2024 End: 09-14-2024 Telephone encounter Husam Muñoz MD Work Phone: [facility] Comment on above: Results Start: 09-11-2024 End: 09-11-2024 ambulatory HUSAM MUÑOZ Not Available Start: 09-11-2024 End: 09-11-2024 Office outpatient visit 25 minutes Husam Muñoz MD Work Phone: [facility] Comment on above: Hypopituitarism (CMS /HCC) (Primary Dx); Decreased libido; Encounter for dietary consultation; Class 1 obesity due to excess calories without serious comorbidity with body mass index (BMI) of 31.0 to 31.9 in adult Start: 09-07-2024 End: 09-07-2024 Clinisync Result Encounter Generic External Data Provider [facility] Unsolicited Start: 09-07-2024 End: 09-07-2024 Clinisync Result Encounter Generic External Data Provider [facility] External Department Unsolicited Start: 08-24-2024 End: 08-24-2024 Clinisync Result Encounter Generic External Data Provider [facility] External Department Unsolicited Start: 08-24-2024 End: 08-24-2024 Clinisync Result Encounter Generic External Data Provider [facility] External Department Unsolicited Start: 08-09-2024 End: 08-16-2024 Orders Only Mani Santoyo SENIOR EXAMINER Work Phone: [facility] Comment on above: Chronic allergic rhi nitis Rosacea, unspecified Start: 08-07-2024 End: 08-07-2024 Refill Lianet Talamantes MA [facility] Comment on above: Chronic allergic rhi nitis Start: 07-16-2024 End: 07-16-2024 Refill Mani Santoyo SENIOR EXAMINER Work Phone: [facility] Comment on above: Chronic allergic rhi nitis Start: 07-11-2024 End: 07-11-2024 ambulatory [facility] Start: 07-09-2024 End: 07-09-2024 Bamboo flowsheet Mani Martinezk SENIOR EXAMINER Work Phone: [facility] Start: 07-09-2024 End: 07-09-2024 Bamboo flowsheet Mani Jimeneztrick SENIOR EXAMINER Work Phone: [facility] Start: 07-09-2024 End: 07-09-2024 Office outpatient visit 10 minutes Mani Santoyo SENIOR EXAMINER Work Phone: [facility] Comment on above: Class 1 obesity due to excess calories without serious comorbidity with body mass index (BMI) of 31.0 to 31.9 in adult (Primary Dx) Start: 07-09-2024 End: 07-09-2024 ambulatory MANI SANTOYO Not Available Start: 06-06-2024 End: 06-06-2024 Office outpatient visit 15 minutes Mani Santoyo SENIOR EXAMINER Work Phone: [facility] Comment on above: Chronic obstructive pulmonary disease, unspecified COPD type (CMS/HCC) (Primary Dx); Paralyzed hemidiaphragm; Class 1 obesity due to excess calories without serious comorbidity with body mass index (BMI) of 31.0 to 31.9 in adult Start: 06-06-2024 End: 06-06-2024 ambulatory MANI SANTOYO Not Available Start: 05-31-2024 End: 05-31-2024 Subsequent hospital visit by physician [facility] Work Phone: [facility] General Comment on above: Cervical vertebral f usion [M43.22] Start: 05-31-2024 End: 05-31-2024 Patient encounter procedure Juan Salazar MD Work Phone: [facility] Comment on above: Cervical vertebral f usion (Primary Dx); Spinal stenosis of cervical region Start: 05-21-2024 End: 05-21-2024 Orders Only Mani Martinezk SENIOR EXAMINER Work Phone: [facility] Comment on above: Class 1 obesity due to excess calories without serious comorbidity with body mass index (BMI) of 31.0 to 31.9 in adult (Primary Dx) Start: 05-15-2024 End: 05-15-2024 Refill Mani Santoyo SENIOR EXAMINER Work Phone: [facility] Start: 05-14-2024 End: 05-14-2024 ambulatory [facility] Start: 05-03-2024 End: 05-03-2024 Bamboo flowsheet Mani Martinezk SENIOR EXAMINER Work Phone: [facility] Start: 05-03-2024 End: 05-03-2024 Bamboo flowsheet Mani Jimeneztrick SENIOR EXAMINER Work Phone: [facility] Start: 05-03-2024 End: 05-03-2024 Office outpatient visit 25 minutes Mani Santoyo SENIOR EXAMINER Work Phone: [facility] Comment on above: Chronic obstructive [...] Start: 08-20-2023 Patient encounter procedure Mani Santoyo SENIOR EXAMINER Work Phone: [facility] Start: 02-17-2023 ambulatory COREAS H FAWWAD Facilit [...] FAWWAD Facility:H1 Start: 05-18-2022 End: 05-19-2022 ambulatory CORAES H FAWWAD Facility:H1 Start: 04-29-2022 End: 04-30-2022 ambulatory COREAS H FAWWAD Facility:H1 Start: 01-27-2022 End: 01-28-2022 ambulatory COREAS H FAWWAD Facility:H1 Start: 04-02-2021 Postop follow up vis it related to original px No PCP None [address] Work Phone: Start: 02-20-2021 Chart Update No PCP None MG-Surgery -[address] Work Phone: Start: 02-11-2021 End: 02-12-2021 Evaluation and management of inpatient Chuck Cook [facility] Rm [id number] 01 Start: 01-27-2021 Chart Update Chuck Cook MD Work Phone: CQ-[address] Work Phone: Start: 04-03-2019 Patient encounter procedure Chandan Cool TL-Ywimtyw-Hzhshbx 2100 Work Phone: Start: 01-12-2018 Patient encounter procedure Chandan Matsonmo IO-[address] Work Phone: Start: 11-28-2017 Patient encounter procedure Chandan Cool VZ-Grqoc[address] Work Phone: Start: 11-28-2017 Patient encounter procedure Chandan Matsonmo SO-Tmatpnq-[address] Work Phone: Procedures Date Procedure Procedure Detail Performing Clinician Start: 09-07-2024 ALL HEMOGLOBIN Generic External Data Provider Start: 08-24-2024 ALL HEMOGLOBIN Generic External Data Provider Start: 05-31-2024 Radex spine cervical 4 or 5 views Juan Salazar MD Work Phone: Start: 11-01-2023 Colonoscopy Mani rm NP Work Phone: Start: 03-30-2019 Xray Chest 2 View PA + Lateral Chandan Swanlake Cholecystectomy Chandan Cool History of Gallbladd er Surgery Chandan Cool History of Knee Surgery Left Chandan Matsonmo History of Neck Surgery Marion Cool Tonsillectomy Chandan Cool Plan of Treatment Date Care Activity Detail Author Start: 2034 RSV Vaccine (1 - 1-dose 75+ series) RSV Vaccine (1 - 1-dose 75+ series) [facility] Start: 11-01-2033 Screening for malignant neoplasm of colon [facility] Start: 03-19-2025 End: 03-19-2025 Patient encounter procedure 03/19/2025 10:30 AM EDT Office Visit [facility] [address] [place] [address] Husam Muñoz MD [address] [place] [address] [facility] Start: 10-30-2024 End: 10-30-2024 Patient encounter procedure 10/30/2024 8:30 AM EST Office Visit [facility] [address] [place] [phone] Mani Santoyo NP [address] [place] [phone] [facility] Start: 09-11-2024 End: 09-11-2025 Hemoglobin [Mass/volume] in Blood Hemoglobin Lab Routine Hypopituitarism (CMS/HCC) Expected: 09/11/2024 (Approximate), Expires: 09/11/2025 [facility] Comment on above: Expected: 09/11/2024 (Approximate), Expi res: 09/11/2025 Start: 09-11-2024 End: 09-11-2025 Prostate specific Ag [Mass/volume] in Serum or Plasma PSA Lab Routine Hypopituitarism (CMS/HCC) Expected: 09/11/2024 (Approximate), Expires: 09/11/2025 [facility] Work Phone: Comment on above: Expected: 09/11/2024 (Approximate), Expi res: 09/11/2025 Start: 09-11-2024 End: 09-11-2025 Testosterone [Mass/volume] in Serum or Plasma Testosterone Lab Routine Hypopituitarism ([facility]) Expected: 09/11/2024 (Approximate), Expires: 09/11/2025 [facility] Comment on above: Expected: 09/11/2024 (Approximate), Expi res: 09/11/2025 Start: 09-11-2024 End: 09-11-2024 Patient encounter procedure 09/11/2024 10:20 AM EST Office Visit [facility] [address] [place] [address] Husam Muñoz MD [address] [place] [address] [facility] Start: 08-18-2024 Medicare Annual Wellness (AWV) Medicare Annual Wellness (AWV) [facility] Start: 08-16-2024 End: 08-16-2024 Patient encounter procedure 08/16/2024 8:30 AM EST Office Visit [facility] [address] [place] [phone] Mani Santoyo, GREGORY [address] [place] [phone] [facility] Start: 08-06-2024 End: 08-06-2024 Patient encounter procedure 08/06/2024 10:00 AM EST Office Visit [facility] [address] [place] [phone] Mani Santoyo, GREGORY [address] [place] [address] [facility] Start: 07-26-2024 End: 07-26-2024 Patient encounter procedure 07/26/2024 10:30 AM EST Office Visit [facility] [address] [place] [phone] Mani Santoyo NP [address] [place] [phone] [facility] Start: 07-09-2024 End: 07-09-2024 Patient encounter procedure [facility] Comment on above: Arrived Start: 05-06-2024 Covid-19 Vaccine () Covid-19 Vaccine () [facility] Start: 05-06-2024 Influenza vaccination Influenza Vaccine (#1) [facility] Start: 05-03-2024 End: 05-03-2025 CBC W Auto Differential panel - Blood CBC and differential Lab Routine Primary hypertension (CMS/HCC) Class 1 obesity due to excess calories without serious comorbidity with body mass index (BMI) of 31.0 to 31.9 in adult Expected: 05/03/2024 (Approximate), Expires: 05/03/2025 [facility] Comment on above: Expected: 05/03/2024 (Approximate), Expi res: 05/03/2025 Start: 05-03-2024 End: 05-03-2025 Comprehensive metabolic 2000 panel - Serum or Plasma Comprehensive metabolic panel Lab Routine Primary hypertension (CMS/HCC) Class 1 obesity due to excess calories without serious comorbidity with body mass index (BMI) of 31.0 to 31.9 in adult Expected: 05/03/2024 (Approximate), Expires: 05/03/2025 [facility] Comment on above: Expected: 05/03/2024 (Approximate), Expi res: 05/03/2025 Start: 05-03-2024 End: 05-03-2025 Microalbumin/Creatinine panel in random Urine Microalbumin / creatinine urine ratio Lab Routine Primary hypertension (CMS/HCC) Expected: 05/03/2024 (Approximate), Expires: 05/03/2025 [facility] Work Phone: Comment on above: Expected: 05/03/2024 (Approximate), Expi res: 05/03/2025 Start: 05-03-2024 End: 05-03-2024 Patient encounter procedure 05/03/2024 11:00 AM EDT Office Visit [facility] [address] [place] [address] Mani Santoyo, GREGORY [address] [place] [address] Chronic obstructive pulmonary disease, unspecified COPD type (CMS/HCC) (Primary Dx); Primary hypertension (CMS/HCC); Class 1 obesity due to excess calories without serious comorbidity with body mass index (BMI) of 31.0 to 31.9 in adult; Hyperlipidemia, unspecified hyperlipidemia type (CMS/HCC) [facility] Comment on above: Chronic obstructive pulmonary disease, u nspecified COPD type (CMS/HCC) (Primary Dx); Primary hypertension (CMS/HCC); Class 1 obesity due to excess calories without serious comorbidity with body mass index (BMI) of 31.0 to 31.9 in adult; Hyperlipidemia, unspecified hyperlipidemia type (CMS/HCC) Start: 2024 Advance Directive Discussion Advance Directive Discussion [facility] Start: 2024 Pneumococcal Vaccine: 65+ (1 of 1 - PCV) Pneumococcal Vaccine: 65+ (1 of 1 - PCV) [facility] Start: 02-13-2024 Diabetes Screening Diabetes Screening [facility] Start: 02-11-2021 End: 02-12-2022 Ondansetron Injectable 4 mg IntraVenous Push Every 6 Hours PRN ; (ZOFRAN)DOSE = 4 mg IntraVenous Push Every 4 Hours, PRN Nausea & Vomiting Start: 11-Feb-2021 End: 11-Feb-2022 Ordered: 11-Feb-2021 Saw Saleem [facility] Start: 2014 Prostate specific antigen measurement Prostate Cancer Screening Discussion [facility] Start: 2009 Shingrix Vaccine (1 of 2) Shingrix Vaccine (1 of 2) [facility] Start: 2004 Screening for malignant neoplasm of colon [facility] Start: 1994 Lipid panel Lipid Screening [facility] Start: 1978 Urine microalbumin profile DTaP,Tdap,Td Vaccine (1 - Tdap) [facility] Start: 1977 Anxiety Screening Anxiety Screening [facility] Start: 1977 Depression Screening Depression Screening [facility] Start: 1977 Hepatitis C screening Hepatitis C Screening [facility] Start: 1977 HIV screening HIV Screening [facility] Start: 1965 Pneumococcal Vaccine: 65+ Years (1 of 2 - PCV) Pneumococcal Vaccine: 65+ Years (1 of 2 - PCV) [facility] Start: 1959 Screening for malignant neoplasm of colon [facility] End: 06-30-2025 MR Cervical spine WO contrast MRI CERVICAL SPINE WO IVCON Radiology Routine Spinal stenosis of cervical region 1 Occurrences starting 05/31/2024 until 06/30/2025 [facility] Comment on above: 1 Occurrences starting 05/31/2024 until 06/30/2025 End: 06-30-2025 XR CERV OTHER 4V AP/LAT/FLX/EXT XR CERV OTHER 4V AP/LAT/FLX/EXT Radiology Routine Cervical vertebral fusion 1 Occurrences starting 05/31/2024 until 06/30/2025 [facility] Work Phone: Comment on above: 1 Occurrences starting 05/31/2024 until 06/30/2025 XR CERV OTHER 4V AP/LAT/FLX/EXT XR CERV OTHER 4V AP/LAT/FLX/EXT Radiology Routine Cervical vertebral fusion 05/31/2024 2:54 PM EDT [facility] End: 05-24-2025 XR Lumbar spine Views W flexion and W extension XR LUMBAR MOTION 4V AP/LAT/ FLEX/EXT Radiology Routine Spinal stenosis of lumbar region with neurogenic claudication 1 Occurrences starting 04/24/2024 until 05/24/2025 [facility] Work Phone: Comment on above: 1 Occurrences starting 04/24/2024 until 05/24/2025 Payers Date Payer Category Payer Medicare [id number] 20[facility]-Present [phone] [address] [place] [address] O [id number] 2022 Medicare (Managed Care) [employer] [id number] 2020 Unknown [id number] 2018 Unknown 1959 Medicare [id number] 1959 Unknown [id number] 2.16.840.1.709960.3.579.2. 593 1959 Unknown [id number] 2.16.840.1.330490.3.579.2. 59 1959 Unknown [id number] 2.16.840.1.014768.3.579.2. 593 1959 Unknown [id number] 2.16.840.1.115676.3.579.2. 59 1959 Unknown [id number] 2.16.840.1.988232.3.579.2. 59 1959 Unknown [id number] 2.16.840.1.652233.3.579.2. 59 1959 Unknown [id number] 2.16.840.1.174852.3.579.2. 593 1959 Unknown [id number] 2.16.840.1.265165.3.579.2. 59 1959 Unknown [id number] 2.16.840.1.803703.3.579.2. 593 1959 Unknown [id number] 2.16.840.1.877991.3.579.2. 59 1959 Unknown [id number] 2.16.840.1.099474.3.579.2. 1258 1959 Unknown [id number] 2.16.840.1.541611.3.579.2. 1258 1959 Unknown [id number] 2.16.840.1.191257.3.579.2. 1258 1959 Unknown [id number] 2.16.840.1.080988.3.579.2. 1258 1959 Unknown [id number] 2.16.840.1.165987.3.579.2. 1258 1959 Unknown [id number] 2.16.840.1.804070.3.579.2. 1258 1959 Unknown [id number] 2.16.840.1.325043.3.579.2. 1258 1959 Unknown [id number] 2.16.840.1.088972.3.579.2. 1258 1959 Unknown [id number] 2.16.840.1.972793.3.579.2. 1259 Social History Date Type Detail Facility Start: 05-31-2024 End: 06-05-2024 Former smoker Former smoker [facility] Tobacco smoking consumption unknown [facility] Start: 1960 Sex assigned at Not on file [facility] Start: 05-31-2024 End: 06-05-2024 Gender [...] tobacco non-user [facility] Start: 05-03-2024 End: 09-11-2024 Alcoholic beverage intake Lifetime non-drinker (finding) [facility] [...] [facility] NEGATED: Highlighted row - - [place] Work Phone: Functional Status Date Assessment Result Facility Functional observable [facility] NEGATED: Highlighted row Functional performance Functional status health issues are not documented Disease [address] Work Phone: Mental Status Date Assessment Result Facility 02-12-2021 Cognitive functi ons [id number] [facility] NEGATED: Highlighted row Cognitive function [Interpretation] Cognitive status health issues are not documented Disease [address] Work Phone: Clinical Notes 02-11-2021 to 09-11-2024 Husam Muñoz MD - 09/11/2024 10:20 AM ESTTelephone Encounter - Julio Singh - 09/11/2024 9:22 AM ESTTelephone Encounter - Julio Singh - 09/11/2024 9:22 AM ESTPatient Instructions<item> Note Date & Type Note Facility 09-11-2024 History of Present illness Narrative Rigo Jefferson is a 64 y.o. male Husam Muñoz MD presents with chief complaint of Testicular Hypofunction HPI: Interim history: 09/2024. Followup visit: 09/11/2024. he is testosterone cypionate 100 mg 1/2 ml [id number], testosterone 183 ([id number]), hemoglobin 17.8, PSA 1.02. Interim history: 03/2024. Followup visit: . he is testosterone cypionate 100 mg 1/2 ml [id number], testosterone 537 ([id number]), hemoglobin not done, PSA 1.62. Interim history: 11/2023. Followup visit: 11/08/2023. Xyosted not covered so we start him on testosterone cypionate supposed to get 150 mg, three-quarter, and he got full mL by mistake even though instructions were on prescription and testosterone is too high, greater than 1,500. Sex hormone binding globulin 39, hemoglobin 16, hematocrit 49 and no PSA. HPI: 08/2023 New patient sent from [facility] for hypogonadism, low testosterone. I have the other lab with LH 11.1, FSH 4.5, prolactin normal 9.9. Ultrasound of testicle within normal limits. He denies history of clots. No prostate problem. No coronary artery disease or CVA SUBJECTIVE: MEDICATIONS: Current Outpatient Medications Medication Instructions albuterol 1.25 mg, Nebulization, Every 6 hours PRN atenolol (TENORMIN) 25 mg, Daily atorvastatin (LIPITOR) 20 mg, Oral, Daily cetirizine-pseudoephedrine (ZyrTEC-D) 5-120 MG 12 hr tablet 1 tablet, Oral, 2 times daily clarithromycin (BIAXIN) 250 mg, Oral, Daily fluticasone (Flonase) 50 MCG/ACT nasal spray 2 sprays, Daily losartan-hydroCHLOROthiazide (Hyzaar) 50-12.5 MG tablet 1 tablet, Oral, Daily meloxicam (MOBIC) 15 mg, Daily montelukast (SINGULAIR) 10 mg, Oral, Daily oxyCODONE-acetaminophen (Percocet) 5-325 MG tablet 1 tablet, Every 6 hours PRN phentermine 37.5 mg, Oral, Daily before breakfast testosterone cypionate (DEPO-TESTOSTERONE) 100 mg, Intramuscular, Every 14 days zonisamide (Zonegran) 50 MG capsule TAKE 1 CAPSULE BY MOUTH AT BEDTIME FOR 1 WEEK, then TAKE 2 CAPSULES AT BEDTIME THEREAFTER ALLERGIES: No Known Allergies Past Medical History: Diagnosis Date Arthritis Atrial fibrillation (CMS/HCC) Patient denies A. 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 He is normal weight. HENT: Head: Normocephalic and atraumatic. Right Ear: External ear normal. Nose: Nose normal. Mouth/Throat: Pharynx: Oropharynx is clear. Eyes: Extraocular Movements: Extraocular movements intact. Pupils: Pupils are equal, round, and reactive to light. Cardiovascular: Rate and Rhythm: Normal rate and regular rhythm. Pulmonary: Effort: Pulmonary effort is normal. Abdominal: General: Abdomen is flat. Palpations: Abdomen is soft. Musculoskeletal: General: Normal range of motion. Skin: General: Skin is warm. Neurological: General: No focal deficit present. Mental Status: He is alert. Psychiatric: Mood and Affect: Mood normal. Behavior: Behavior normal. ASSESSMENT AND PLAN: Assessment/Plan Diagnoses and all orders for this visit: Hypopituitarism (CMS/HCC) - testosterone cypionate (Depo-Testosterone) 200 MG/ML injection; Inject 0.5 mL (100 mg) into the shoulder, thigh, or buttocks every 14 (fourteen) days - PSA; Future - Hemoglobin; Future - Testosterone; Future Continue the same dose of testosterone 100 mg 0.5 mL every 2 weeks even hemoglobin mildly high, PSA within normal limits. Decreased libido Encounter for dietary consultation Diet and exercise reviewed with the patient Class 1 obesity due to excess calories without serious comorbidity with body mass index (BMI) of 31.0 to 31.9 in adult Follow up in about 6 months (around 03/11/2025). documented in this encounter [facility] 09-11-2024 Telephone encounter Note Please refax order to [place] [facility] [facility] with order diagnosis for PSA updated. They state they spoke to you yesterday about this and you said you were going to send it, but I don't see it in his chart anywhere to send again. Thanks! [facility] 09-11-2024 Miscellaneous Notes Please refax order to [place] [facility] with order diagnosis for PSA updated. They state they spoke to you yesterday about this and you said you were going to send it, but I don't see it in his chart anywhere to send again. Thanks! documented in this encounter [facility] 08-15-2024 Telephone encounter Note IZZY:07/09/2024 NOV:10/30/2024 [facility] 08-15-2024 Miscellaneous Notes IZZY:07/09/2024 NOV:10/30/2024 Patient stopped in and stated he is suppose to take 2 pills a day. 1 in morning and 1 at night. He only got a 30 supply and is about out. He would like another script. An documented in this encounter [facility] 08-09-2024 Telephone encounter Note Patient stopped in and stated he is suppose to take 2 pills a day. 1 in morning and 1 at night. He only got a 30 supply and is about out. He would like another script. An [facility] 08-07-2024 Telephone encounter Note IZZY:07/09/2024 NOV:08/16/2024 [facility] 08-07-2024 Miscellaneous Notes IZZY:07/09/2024 NOV:08/16/2024 documented in this encounter [facility] 07-11-2024 Note [facility] Note Reason for cardiology [...] x3, well devel (more content not included)... [facility] 07-09-2024 History of Present illness Narrative Associated [...] 37.5 MG tablet documented in this encounter [facility] 06-06-2024 History of Present illness Narrative Images [...] if no contraindications documented in this encounter [facility] 06-06-2024 Instructions Mani Santoyo NP - 06/06/2024 [...] call my office! documented in this encounter [facility] [facility] History of Present illness Narrative Radiology [...] PATIENT PRESENTS WITH AN IMPLANTABLE OR ATTACHED ACCOUNT DEVELOPMENT ASSOCIATE: No RADIOLOGY DEPARTMENT: General X-ray: Exam(s) Completed: Spine X-Ray(s): Cervical AP / LAT / FLEX-EXT and Lumbar AP / LAT / L5-S1 / FLEX-EXT PERIPHERAL IV DATA: Not applicable SIGNED BY: RT Lory(R) May 31, 2024 2:55 PM documented in this encounter [facility] 05-31-2024 History of Present illness Narrative SPINE SURGERY NEW PATIENT This is an in-person visit. PCP: No primary care provider on file. REFERRING PROVIDER: SUBJECTIVE CHIEF COMPLAINT: Hand test specialist weakness Decreased sensation over left hemibody Lower [...] all muscle groups. Except mild bilateral hand test specialist weakness. SENSORY: Creased sensation for light touch [...] patient was counseled regarding neck pain, hand test specialist weakness, decreased sensation over left hemibody, lower back pain, left leg pain, walking difficulty, left leg numbness, lumbar spondylosis, lumbar canal stenosis, lumbar laminectomy with foraminotomy, adjacent segment cervical stenosis, MRI cervical spine. Total face to face time was 45 minutes. SIGNATURE: Juan Salazar MD PATIENT NAME: Rigo Jefferson DATE: May 31, 2024 TIME: 1:44 PM PAGER: documented in this encounter [facility] 05-21-2024 History of Present illness Narrative Associated [...] Starting weight 213 documented in this encounter [facility] 05-14-2024 Note [place] [facility] Note Reason for cardiology [...] hemoglobin 16, hematocrit (more content not included)... [facility] 05-03-2024 History of Present illness Narrative Associated Problem(s): Chronic seasonal allergic rhinitis Cetirizine D and Flonase daily. Feels symptoms are well managed. Continue current regimen. Associated Problem(s): Primary hypogonadism in male Follows Endocrinology for testosterone replacement therapy. Associated Problem(s): Chronic pain syndrome R/T severe lumbar stenosis Pain management referred to [facility] Spinal institute for further management. Still [...] ALBUMIN GLOBULIN RATIO 1.0 Resulting Agency [facility] COPD: Does not follow pulmonolgy; Has not had any PFT's recently. No medication at this time. States inhalers were too expensive. Feels his symptoms are well managed. Except in excess humidity and warmer weather. Chronic Lumbar Stenosis: Pain management referred to [facility] Still following with Pain [...] were stopped by previous provider in February pt having excessively low BP readings. Referral [...] were stopped by previous provider in February pt having excessively low BP readings. Referral [...] at next OV. documented in this encounter [facility] 05-03-2024 Instructions Mani Santoyo NP - 05/03/2024 11:00 AM EDT Have lab work completed. Keep all follow up appointments. Call if you need anything! documented in this encounter [facility] 04-24-2024 Note HNO ID: [id number] Author: MICHELLE FLORENTINO APRN.SILVER CLEANER Service: ? Author Type: Nurse Practitioner Type: Progress Notes Filed: 04/24/2024 16:54 Note Text: Per Triage: Rigo Jefferson is a 64 year old male. that presents with symptoms of low back pain that radiates down the left leg. Previous spine surgery: Yes in [address] Sales. BMI: NA Out of state: No A1C: NA CMT: Injections Dye Machine Tender Mobic Oxycodone Studies (Reports unless indicated) MRI Lumbar 04/03/2024 -Severe central canal stenosis at L3-L4 and L4-L5 Disposition: Please schedule with first available lumbar spine surgeon with pre-visit x-ray. [facility] 04-24-2024 History of Present illness Narrative Per Triage: Rigo Jefferson is a 64 year old male. that presents with symptoms of low back pain that radiates down the left leg. Previous spine surgery: Yes in [address] Sales. BMI: NA Out of state: No A1C: NA CMT: Injections Dye Machine Tender Mobic Oxycodone Studies (Reports unless indicated) MRI Lumbar 04/03/2024 -Severe central canal stenosis at L3-L4 and L4-L5 Disposition: Please schedule with first available lumbar spine surgeon with pre-visit x-ray. Patient name: Rigo Jefferson Are you being referred by a [place] for Spine Health Provider or Pain Management Provider at [facility]? No If answer is YES please [...] facility where the MRI/CT/myelogram was completed: [facility] Address: [address] [place] [address] MRI/CT/myelogram viewable in Epic: No If not, please provide [phone] to fax in imaging reports for review. [...] and/or physical therapy was completed Injections [facility] Address: [address] [place] [address] Have you tried any other kinds of [...] of where the surgery was completed: 2001 [facility] or Cannot recall Additional Comments documented in this encounter [facility] 04-19-2024 Note HNO ID: [id number] Author: ?, ?, ? Service: ? Author Type: ? Type: Progress Notes Filed: 04/24/2024 16:54 Note Text: Patient name: Rigo Jefferson Are you being referred by a Center for Spine Health Provider or Pain Management Provider at [facility]? No If answer is YES please [...] facility where the MRI/CT/myelogram was completed: [facility] Address: [address] [place] [address] MRI/CT/myelogram viewable in Epic: No If not, please provide [phone] to fax in imaging reports for review. [...] and/or physical therapy was completed Injections [facility] Address: [address] [place] [address] Have you tried any other kinds of [...] 2001 [facility] or Cannot recall Additional Comments [facility] 12-09-2022 Note CONSULTATION PROCEDURE DATE: 12/09/2022 [...] our patients to inform us about any ehes-efl-ddpevke medications or herbal remedies/nutritional supplements/alternative remedies. 2. [...] options with their primary care provider. [facility] 11-25-2022 Note CONSULTATION CONSULTATION DATE: 11/25/2022 [...] of his shoulders, bilaterally, without contrast. [facility] 09-03-2022 Note CONSULTATION CONSULTATION DATE: 09/03/2022 [...] three months' time, unless otherwise indicated. [facility] 06-01-2022 Note CONSULTATION CONSULTATION DATE: 06/01/2022 [...] in three months. CC: Shaikh Helena M.D. [facility] 05-18-2022 Note CONSULTATION CONSULTATION DATE: 05/18/2022 [...] to proceed. CC: Shaikh Helena M.D. [facility] 05-18-2022 Note CONSULTATION PROCEDURE DATE: 05/18/2022 [...] be followed up in the office. [facility] 04-29-2022 Note CONSULTATION CONSULTATION DATE: 04/29/2022 [...] for his injections with Dr. Duncan. [facility] 01-27-2022 Note CONSULTATION CONSULTATION DATE: 01/27/2022 [...] in three month's time, unless otherwise indicated. [facility] Signed and Approved by: RAVINDER ANDERSEN . 02/04/2022 16:12:00 [facility] 02-12-2021 Note Send Summary: Discharge Summary Providers: Provider RoleProvider Name ReferringChuck Cook PrimaryRequired, No Pcp AttendingChuck Cook Note Recipients: [...] at Discharge: .Home Vital Signs: T PRBPSpO2 [id number]/8395% Date/Time02/12 12: 12: 12: 12: 12:10 Range(35.4C - 36.4C ) (77 - 99 ) (17 - 18 ) (127 - 147 )/ (83 - 91 ) (92% - 96% ) As of 12-Feb-2021 12:10:00, patient is on 2 L/min of oxygen Date: Weight/Scale Type:Height: 12-Feb-2021 01:41578.8 kg / .8 cm Hospital Course: 61 [...] Call to Schedule in: 2 weeks Location: [facility] [address] [place] [address], [place], [place] Discharge Medications: Home Medication clarithromycin 250 mg [...] Last Updated: 13-Feb-2021 10:13 by Chuck Cook) [facility] 02-11-2021 Note Post Operative Note: PreOp Diagnosis: diaphragm paralysis Post-Procedure Diagnosis: same Procedure: 1. laparoscopic L diaphragm plication 2. removal of bilateral diaphragm pacing wires 3. L pigtail chest tube placement Surgeon: Dr Chuck Cook Resident/Fellow/Other Diaper Folder: Dr Saw Saleem Anesthesia: GETA Estimated Blood [...] Last Updated: 12-Feb-2021 07:53 by Chuck Cook) [facility] 02-11-2021 Note History & Physical R eviewed: [...] Last Updated: 11-Feb-2021 15:50 by Chuck Cook) [facility] Chief complaint Narrative - Reported An interactive audio and video telecommunication system which permits real time communications between the patient (at the originating site) and provider (at the distant site) was utilized to provide this telehealth service.Post op [id number] Work Phone: Evaluation note Constitutional: Well developed, awake/alert/oriented x3, no distress, alert and cooperativeSkin: warm and dryEyes: PERRL, EOMI, clear scleraENMT: MMMHead/Neck: NCATRespiratory/Thorax: good chest expansion, thorax symmetricCardiovascular: RRRGastrointestinal: Nondistended, soft, non-tender, no rebound tenderness or guardingMusculoskeletal: moves all extremitiesExtremities: well perfusedNeurological: grossly intactPsychological: Appropriate mood and behavior [facility] Evaluation note Diagnosis Spinal stenosis of lumbar region with neurogenic claudication- Primary Spinal stenosis, lumbar region, with neurogenic claudication [facility] Diagnosis Cervical vertebral fusion- Primary Other unspecified back disorder Spinal stenosis of cervical region Spinal stenosis in cervical region [facility] Cervical vertebral fusion Other unspecified back disorder [facility] Diagnosis Chronic obstructive pulmonary disease, unspecified COPD type (CMS/HCC)- Primary Paralyzed hemidiaphragm Class 1 obesity due to excess calories without serious comorbidity with body mass index (BMI) of 31.0 to 31.9 in adult [facility] Diagnosis Primary hypertension (CMS/HCC)- Primary Unspecified [...] Chronic allergic rhinitis documented in this encounter [facility]* Diagnosis Primary hypertension (CMS/HCC)- [...] Chronic allergic rhinitis documented in this encounter [facility]* Diagnosis Class 1 obesity due to excess calories without serious comorbidity with body mass index (BMI) of 31.0 to 31.9 in adult- Primary documented in this encounter [facility]* Diagnosis Primary hypertension (CMS/HCC)- [...] Primary Rosacea, unspecified documented in this encounter [facility]* Diagnosis Chronic obstructive pulmonary disease, unspecified COPD type (CMS/HCC)- Primary Primary hypertension (CMS/HCC) Unspecified essential hypertension Class 1 obesity due to excess calories without serious comorbidity with body mass index (BMI) of 31.0 to 31.9 in adult Hyperlipidemia, unspecified hyperlipidemia type (CMS/HCC) Chronic seasonal allergic rhinitis Primary hypogonadism in male documented in this encounter [facility]* Diagnosis Primary hypertension (CMS/HCC)- [...] of 31.0 to 31.9 in adult- Primary Hypopituitarism (CMS/HCC)- Primary Panhypopituitarism Decreased libido Encounter for dietary consultation Class 1 obesity due to excess calories without serious comorbidity with body mass index (BMI) of 31.0 to 31.9 in adult [facility] [...] not he wants to follow-up with a terrazzo polisher in our system. [id number] Work Phone: Hospital Discharge instructions* [...] Appointment 2:Physician/Dept/Service: Dr. Cook [facility] Ref[facility]: hospital follow-up / diaphragm pacer removal, hemidiaphragm plicationLocation: [address] [address] Number: [phone] * Gold Form - Other Clinicians:Other Clinician Instructions: Please take your medications as directed. Please follow-up with Dr. Cook and with your PCP as directed. You may remove dressings and shower Tuesday. No heavy lifting >20lbs or strenours activity for 3 weeks. If your symptoms return orworsen, please seek medical attention. Thank you for allowing us to participate in your care. [facility]Reason for referral (narrative)* Diagnostic Procedure Only (Routine) - New Request Specialty Diagnoses / Procedures Referred By Contac t Referred To Contact XR IMAGING Diagnoses Spinal stenosis of lumbar region with neurogenic claudication Procedures XR LUMBAR MOTION 4V AP/LAT/ FLEX/EXT RADEX SPINE LUMBOSACRAL MINIMUM 4 VIEWS Michelle Florentino, TAB.SILVER CLEANER [address] [place] [address] Xr Imaging [place] [address] Referral ID Status Reason Start Date Expiration Date Visits Requested Visits Authorized [id number] New Request Auto-Generat ed Referral 04/24/2024 05/24/2025 1 1 [facility] for referral (narrative)* Diagnostic Procedure Only (Routine) - Closed Specialty Diagnoses / Procedures Referred By Contac t Referred To Contact XR IMAGING Diagnoses Cervical vertebral fusion Procedures XR CERV OTHER 4V AP/LAT/FLX/EXT RADEX SPINE CERVICAL 4 [place] [address] [place] [address] Xr Imaging [place] [address] Referral ID Status Reason Start Date Expiration Date V isits Requested Visits Authorized [id number] Closed Auto-Generate d Referral 05/31/2024 06/30/2025 1 1 T [facility] for referral (narrative)* Consultation (Urgent) - Authorized Specialty Diagnoses / Procedures Referred By Contac t Referred To Contact Pulmonary Disease Diagnoses Chronic obstructive pulmonary disease, unspecified COPD type (CMS/HCC) Paralyzed hemidiaphragm Procedures SC OFFICE/OUTPATIENT NEW HIGH MDM 60 MINUTES Mani Santoyo NP [address] [place] [address] Aly Mosley MD [address] [place] [address] Referral ID Status Reason Start Date Expiration Date Visits Requested Visits Authorized [id number] Authorized Specialty Services Required 06/06/2024 12/03/2024 1 1 [facility] Family History No Family History Records Found [...] CERVICAL W/[place] [address] [place] [address] Mr Imaging [id number] Referral ID Status Reason Start Date Expiration Date Visits Requested Visits Authorized [id number] New Request Auto-Generat ed Referral 05/31/2024 06/30/2025 1 1 Specialty Diagnoses / Procedures Referred By Contac t Referred To Contact XR IMAGING Diagnoses Cervical vertebral fusion Procedures XR CERV OTHER 4V AP/LAT/FLX/EXT RADEX SPINE CERVICAL 4 [place] [address] [place] [id number] Xr Imaging [facility] Referral ID Status Reason Start Date Expiration Date V isits Requested Visits Authorized [id number] Closed Auto-Generate d Referral 05/31/2024 06/30/2025 1 [...] section and content) DATE CREATED AUTHOR 04/04/2021 [employer] DATE CREATED AUTHOR AUTHOR'S ORGANIZ ATION 04/08/2021 [facility] DATE CREATED AUTHOR AUTHOR'S ORGANIZ ATION 12/31/[address] [facility] DATE CREATED AUTHOR AUTHOR'S ORGANIZ ATION 04/26/2024 [facility] DATE CREATED AUTHOR AUTHOR'S ORGANIZ ATION 07/12/2024 [facility] DATE CREATED AUTHOR AUTHOR'S ORGANIZ ATION 09/17/2024 [facility] dical Specialists EPIC Source Comments (unrecognize d section and content) In the event this informatio n is protected by the Federal Confidentiality of Alcohol and Drug Abuse Patient Records regulations: The Federal rules restrict any use of the information to criminally investigate or prosecute any alcohol or drug abuse patient.[facility] the event this information is protected by the Federal Confidentiality of Alcohol and Drug Abuse Patient Records regulations: The Federal rules restrict any use of the information to criminally investigate or prosecute any alcohol or drug abuse patient.[facility] the event this information is protected by the Federal Confidentiality of Alcohol and Drug Abuse Patient Records regulations: The Federal rules restrict any use of the information to criminally investigate or prosecute any alcohol or drug abuse patient.[facility] Care Teams (unrecognized sec tion and content) Instrument Worker Relationship Specialty Start Date End Date Tonny Hernandez MD [address] [place] [address] Referring Pain Management 04/16/24 Instrument Worker Relationship Specialty Start Date End Date Tonny Hernandez MD [address] [place] [address] Referring Pain Management 04/16/24 Instrument Worker Relationship Specialty Start Date End Date Tonny Hernandez MD [address] [place] [address] Referring Pain Management 04/16/24 Instrument Worker Relationship Specialty Start Date End Date Rosa Barker MD [address] [place] [address] PCP - Devoted 09/05/22 Nikunj Yanez MD [address] [place] [address] PCP - General Family Medicine 04/09/24 Mani Santoyo NP [address] [place] [address] Nurse Practitioner Family Medicine 04/09/24 Instrument Worker Relationship Specialty Start Date End Date Rosa Barker MD [address] [place] [address] PCP - Devoted 09/05/22 Nikunj Yanez MD [address] [place] [address] PCP - General Family Medicine 04/09/24 Mani Santoyo NP [address] [place] [address] Nurse Practitioner Family Medicine 04/09/24 Instrument Worker Relationship Specialty Start Date End Date Rosa Barker MD [address] [place] [address] PCP - Devoted 09/05/22 Nikunj Yanez MD [address] [place] [address] PCP - General Family Medicine 04/09/24 Mani Santoyo NP [address] [place] [address] Nurse Practitioner Family Medicine 04/09/24 Instrument Worker Relationship Specialty Start Date End Date Rosa Barker MD [address] [facility] [address] [place] [address] PCP - Devoted 09/05/22 Nikunj Yanez MD [address] [place] [address] PCP - General Family Medicine 04/09/24 Mani Santoyo NP [address] [place] [address] Nurse Practitioner Family Medicine 04/09/24 Instrument Worker Relationship Specialty Start Date End Date Rosa Barker MD [address] [facility] [place] [address] PCP - Devoted 09/05/22 Nikunj Yanez MD [address] [place] [address] PCP - General Family Medicine 04/09/24 Mani Santoyo NP [address] [place] [address] Nurse Practitioner Family Medicine 04/09/24 Instrument Worker Relationship Specialty Start Date End Date Rosa Barker MD [address] [facility] [address] [place] [address] PCP - Devoted 09/05/22 Nikunj Yanez MD [address] [place] [address] PCP - General Family Medicine 04/09/24 Mani Santoyo NP [address] [place] [address] Nurse Practitioner Family Medicine 04/09/24 Instrument Worker Relationship Specialty Start Date End Date Rosa Barker MD [address] [place] [address] PCP - Devoted 09/05/22 Nikunj Yanez MD [address] [place] [address] PCP - General Family Medicine 04/09/24 Mani Santoyo NP [address] [place] [address] Nurse Practitioner Family Medicine 04/09/24 Instrument Worker Relationship Specialty Start Date End Date Rosa Barker MD [address] [facility] [address] [place] [address] PCP - Devoted 09/05/22 Nikunj Yanez MD [address] [place] [address] PCP - General Family Medicine 04/09/24 Mani Santoyo NP [address] [place] [address] Nurse Practitioner Family Medicine 04/09/24 Instrument Worker Relationship Specialty Start Date End Date Rosa Barker MD [address] [facility] [address] [place] [address] PCP - Devoted 09/05/22 Nikunj Yanez MD [address] [place] [address] PCP - General Family Medicine 04/09/24 Mani Santoyo NP [address] [place] [address] Nurse Practitioner Family Medicine 04/09/24 Instrument Worker Relationship Specialty Start Date End Date Rosa Barker MD [address] [place] [address] [place] [address] PCP - Devoted 09/05/22 Nikunj Yanez MD [address] [place] [address] PCP - General Family Medicine 04/09/24 Mani Santoyo NP [address] [place] [address] Nurse Practitioner Family Medicine 04/09/24 Reason for Visit (unrecogniz ed section and content) Reason Comments New Patient Reason Comments Radio Gen RMP Specialty Diagnoses / Procedures Referred By Contac t Referred To Contact XR IMAGING Diagnoses Cervical vertebral fusion Procedures XR CERV OTHER 4V AP/LAT/FLX/EXT RADEX SPINE CERVICAL 4 [place] [address] [place] [address] [place] [address] Referral ID Status Reason Start Date Expiration Date V isits Requested Visits Authorized [id number] Closed Auto-Generate d Referral 05/31/2024 06/30/2025 1 1 Reason Comments Weight Check Reason Onset Date Comments Med Refill 07/16/2024 Reason Onset Date Comments Med Refill 08/07/2024 Reason Onset Date Comments Med Refill 08/09/2024 Reason Comments Follow-up Reason Comments Testicular Hypofunction Reason Onset Date Comments Results 09/11/2024 FOR RECORDS PERTAINING TO PATIENTS WHO ARE [...] BE BASED ON THE PRIMARY CLINICAL RECORDS. [employer] provides no warranty or guarantee of the accuracy or completeness of information in this document.
--- NOTE | 2024-12-13 08:52 | P.CN_ITS ---
Consult Note: HPI Data of Consult Patient: known to practice within the last 3 years Requesting Physician: Sho Galdamez NP Primary Care Provider: MANI CAGE Consult Narrative Reason for consult: f/u Narrative: Ryan Pete a pleasant 64 year old male presents for evaluation of chronic pain. Today pain 4/10 in low back, ache worse with activity. increases to 8/10 at its worst. Pain increased with twisting, pushing, pulling, standing, lifting, activity. Pain improved mildly with TENS, ibuprofen, lidocaine patches, baclofen 10mg BID PRN, and Percocet 5-325mg QID PRN. Patient denies side effects. denies loss of bowel or bladder. Has not seen NS since 05/31/24, unsure who he saw at [facility] but they discussed his cervical spine per pt. no records available for review. Pt reports since last visit increase in pain to left leg and weakness. cc:: CC: Sho Galdamez NP Review of Systems ROS Status of ROS 10 or more systems reviewed and unremark able except as noted in history and below Musculoskeletal Reports: back pain, neck pain, extremity pain and joint pain [facility] Medical History (Updated 06/06/24 @ 08:40 by Sho Galdamez NP) COPD (chronic obstructive pulmonary disease) ?J44.9 - Chronic obstructive pulmonary disease, unspecified (ICD-10) Rheumatoid arthritis ?M06.9 - Rheumatoid arthritis, unspecified (ICD-10) Upper back pain ?M54.9 - Dorsalgia, unspecified (ICD-10) Low back pain ?M54.50 - Low back pain, unspecified (ICD-10) Uses continuous positive airway pressure (CPAP) ventilation at home ?Z99.89 - Dependence on other enabling machines and devices (ICD-10) Emphysema lung ?J43.9 - Emphysema, unspecified (ICD-10) Hypertension ?I10 - Essential (primary) hypertension (ICD-10) Surgical History Hx of cholecystectomy ?Z90.49 - Acquired absence of other specified parts of digestive tract (ICD- 10) H/O cardiac catheterization ?Z98.890 - Other specified postprocedural states (ICD-10) H/O heart bypass surgery ?Z95.1 - Presence of aortocoronary bypass graft (ICD-10) History of lung surgery ?Z98.890 - Other specified postprocedural states (ICD-10) History of tonsillectomy ?Z90.89 - Acquired absence of other organs (ICD-10) H/O cervical spine surgery ?Z98.890 - Other specified postprocedural states (ICD-10) H/O carpal tunnel repair ?Z98.890 - Other specified postprocedural states (ICD-10) H/O arthroscopy of knee ?Z98.890 - Other specified postprocedural states (ICD-10) Meds Home Medications and Allergies Home Medications ?Medication ?Instructions ?Recorded ?Confirmed ?Type atorvastatin 40 mg tablet (Lipitor) 40 mg PO DAILY 02/17/23 05/22/24 History baclofen 10 mg tablet 10 mg PO BID 02/17/23 05/22/24 History lidocaine 5 % topical patch 1 patch topical DAILY 02/17/23 05/22/24 History (Lidoderm) testosterone enanthate 50 mg/0.5 50 mg subcut QWEEK 12/13/23 05/22/24 History mL subcutaneous auto-injector (Xyosted) ibuprofen 200 mg tablet 800 mg PO TID PRN pain 12/20/23 05/22/24 History cetirizine 10 mg tablet (Zyrtec) 10 mg PO BID PRN allergy symptoms 03/28/24 05/22/24 History montelukast 10 mg tablet 10 mg PO DAILY 03/28/24 05/22/24 History (Singulair) naloxone 4 mg/actuation nasal 4 mg intranasal Q2M PRN opioid 07/18/24 Rx spray (Narcan) overdose #1 ea oxycodone-acetaminophen 5 mg-325 1 tab PO QID PRN pain #120 tabs 09/12/24 Rx mg tablet (Percocet) oxycodone-acetaminophen 5 mg-325 1 tab PO QID PRN pain #120 tabs 10/18/24 Rx mg tablet (Percocet) oxycodone-acetaminophen 5 mg-325 1 tab PO QID PRN pain #120 tabs 11/15/24 Rx mg tablet (Percocet) Allergies Allergy/AdvReac Type Severity Reaction Status Date / Time No Known Drug Allergies Allergy Verified 05/22/24 07:35 Exam Constitutional Documenting provider has reviewed patient's vital signs: yes Common normals: no apparent distress, oriented x3, healthy appearing, alert and well nourished General appearance: cooperative HENMT Common normals: normocephalic, hearing grossly normal bilaterally and moist oral mucous membranes Head and scalp: normocephalic Eye Common normals: PERRL Pupil: PERRL Neck & C-Spine Common normals: full ROM General: normal visual inspection Cervical spine: pain with cervical ROM; no cervical spine tenderness Chest Common normals: inspection of chest normal Respiratory Common normals: normal respiratory effort, no retractions and no use of accessory muscles Back & Pelvis Lumbar spine/lower back: ROM limited, pain with ROM and straight leg raise positive left Other: decreased sensation left L3,4,5 strength 4/5 in LLE and 5/5 in RLE Extremity Common normals: normal to inspection Right lower extremity: hip joint and knee joint Left lower extremity: hip joint Other: left hip: no pain with internal and external rotation right hip: mild to moderate pain with internal and external rotation left knee enlarged diameter, mild edema, pain with medial and lateral stress testing, crepitus noted on exam Neuro Common normals: oriented x3 and CN's II-XII intact bilaterally Sensorium/orientation: alert Gait (neuro): antalgic Motor exam: no movement abnormalities noted Psych Common normals: mental status grossly normal, thought process normal, cooperati ve, affect normal, speech normal and activity/motor behavior normal Speech: normal speech Thought process: normal thought process Results Additional Findings Additional findings: If on a controlled substance or opioids, I have checked an [place] report on this patient and there are no aberrancies noted in the prescribing history.??If on a controlled substance or opioid a drug screen was completed and reviewed within the last year, and if there has not been a drug screen completed we ordered one today to monitor higher risk, state monitored pain medication use. As part of providing excellent, safe, comprehensive care, the following was completed at our patient's visit: 1. A medication reconciliation and review to ensure accurate knowledge of current/active medications, including asking our patients to inform us about any [id number] medications or herbal remedies/nutritional supplements/alternative remedies. 2. A review to specifically ensure our patients have had annual screening for screening for depression, screening for tobacco use, and screening for unhealthy alcohol use. For concerning screenings had a discussion with the patient, provided patient education, and recommended follow-up with primary care provider when appropriate. If patient noted with a risk of falling, they received education on strength, gait, and balance training to prevent future risk of falling. Assessment and Plan Assessment and Plan (1) Lumbar stenosis with neurogenic claudication: Assessment and Plan: The patient has had over 3 months of moderate to severe low back and left leg pain with functional impairment and inadequate response to conservative care including NSAIDS (unless there are contraindication such as concurrent blood thinners), multiple oral or topical pain medications, and home exercise program/physical therapy.? Patient has completed >6 weeks of guided home exercise program and/or formal physical therapy program without relief of their symptoms.? I have reviewed the imaging of the lumbar spine and no red flags were identified.? The Oswestry Disability Index was completed, and the patient scored a 42%.? The patient noted the following:?? moderate to severe pain impacting ADLs, sleeping, sitting, standing, walking, social life and travel We discussed the risks and benefits of the procedure with the patient, and we are NOT planning on using sedation as outlined in the guidelines from Medicare unless there is a documented reason that sedation would be strongly recommended.?? ?The procedure will be completed with fluoroscopic guidance.? (2) Lumbar degenerative disc disease: (3) Encounter for long-term opiate analgesic use: Assessment and Plan: I feel these medications are improving the patient's quality of life and allow them to tolerate activities of daily living as well as participate in recreational activity.? The patient does not report intolerable side effects. The patient is NOT opioid naive and non-pharmacologic and non-opioid treatment has failed to significantly relieve the patient's pain and improve functionality. The patient has a diagnosis that is related to a somatic or visceral pain etiology. ? ?? I reviewed with the patient the potential risks and side effects with the use of? opioid medications including but not limited to respiratory depression,? sedation, and even . I verified the patient has access to naloxone should? these effects occur. I advised the patient to avoid the use of any other? sedation substances including alcohol, THC, and benzodiazepines while? taking opioid medications due to the risk of compounding side effects and? detrimental outcomes. I reviewed the [employer], pain treatment agreement, urine? drug screen, and opioid start talking forms. The patient was advised to let? their family know they had Naloxone in case they would need to administer? the medication.? ?? A drug screen was completed within the last year, and no aberrancies were noted regarding their use of controlled substances. The patient understands they are subject to the terms and conditions of the pain contract that they have signed. ? ?? I have checked an [place]AR[place] report on this patient today and there are no aberrancies noted in the prescribing history.? (4) Lumbar spondylosis: (5) Osteoarthritis: (6) Muscle spasm: (7) Failed neck syndrome: Plan left L3-4 L4-5 TFESI under fluoroscopy for lumbar stenosis with NC continue current medications, risks vs benefits reviewed reschedule with NS for evaluation as discussed continue HEP as tolerated f/u 2 weeks after injection
== END 2024-12-13 08:24 | disposition home or self-care (01) ==
PROVIDERS: Visit Provider Nurse Practitioner
DX: M48.062 Spinal stenosis, lumbar region with neurogenic claudication (principal); M51.369 Other intervertebral disc degeneration, lumbar region without mention of lumbar back pain or lower extremity pain; Z79.891 Long term (current) use of opiate analgesic; M47.816 Spondylosis without myelopathy or radiculopathy, lumbar region; M19.90 Unspecified osteoarthritis, unspecified site; M62.838 Other muscle spasm; M96.1 Postlaminectomy syndrome, not elsewhere classified
CPT/HCPCS: G0463

== ENCOUNTER 2024-12-24 06:47 | Day surgery (SDC) | payer OTHER, SELFPAY ==
--- OUTSIDE RECORDS SUMMARY | 2024-12-24 06:51 | XMS_ITS | CCD ---
Author Organization [facility] Care Team Providers Care Education Department Registrar Name Role Phone Chandan Cool Unavailable Unavailable Osorio Sid William Unavailable Unavailable Required, No Pcp Unavailable Unavailable Ada Chuck Unavailable None, No PCP Unavailable Unavailable [facility], [facility] Primary Care Unavailable WEST, DR RADHA Gaxiola Consulting Unavailable DUNCAN ., DR LLUVIA Sheldon Attending Unavailable DUNCAN ., DR LLUVIA Sheldon Admitting Unavailable DUNCAN ., DR LLUVIA Sheldon Consulting Unavailable [facility], [facility] Primary Care Unavailable DUNCAN ., DR LLUVIA Sheldon Attending Unavailable DUNCAN ., DR LLUVIA Sheldon Consulting Unavailable DUNCAN ., DR LLUVIA Sheldon Admitting Unavailable [facility] Primary Care Unavailable DUNCAN ., DR LLUVIA Sheldon Attending Unavailable DUNCAN ., DR LLUVIA Sheldon Consulting Unavailable DUNCAN ., DR LLUVIA Sheldon Admitting Unavailable [facility], [facility] Primary Care Unavailable ANDERSEN .RAVINDER Consulting Unavailable DUNCAN ., DR LLUVIA Sheldon Admitting Unavailable DUNCAN ., DR LLUVIA Sheldon Attending [facility]available [facility] Primary Care Unavailable ANDERSEN .RAVINDER Consulting Unavailable DUNCAN ., DR LLUVIA Sheldon Admitting Unavailable DUNCAN ., DR LLUVIA Sheldon Attending Unavailable [facility] Primary Care Unavailable LAKSHMIPATHY ., NARENDRANATH Attending Nadira vailable LAKSHMIPATHY ., NARENDRANATH Admitting Nadira vailable [facility], [facility] Primary Care Unavailable LAKSHMIPATHY ., NARENDRANATH Attending Nadira vailable LAKSHMIPATHY ., NARENDRANATH Consulting Nadira vailable LAKSHMIPATHY ., NARENDRANATH Admitting Nadira vailable [facility], [facility] Primary Care Unavailable LAKSHMIPATHY ., NARENDRANATH [...] Unavailable Nikunj Yanez MD Primary Care Provider [phone] Natanael OCCUPATIONAL THERAPY TECHNICIAN, Mani Unavailable ELIAS MANZANO Attending Unavailable ELIAS MANZANO Attending Unavailable JONATHAN NAGY Attending Unavailable JONATHAN NAGY Attending Unavailable SHAIKH MALIK Attending Unavailable SHAIKH MALIK Attending Unavailable SHAIKH MALIK Attending Unavailable MANI SANTOYO Attending UnavailMANI Menon Attending UnavailMANI Menon Attending UnavailHUSAM Pelaez Attending [...] disease (2 sources) Atherosclerotic heart disease of [place] coronary artery without angina pectoris; Translations: [Atherosclerotic heart disease of [place] coronary artery without angina pectoris] Onset: 05-15-2024 [...] [Mass/Vol] 17.8 g/dL 14.0 - 18.0 g/dL [facility] ALL HEMOGLOBINon 08-24-2024 Hemoglobin (Bld) [Mass/Vol] 17.6 g/dL 14.0 - 18.0 g/dL [facility] Office Visiton 07-11-2024 Follow-up visit [id number] Rigo Jefferson 1960 M Provider Department Center 07/11/2024 [id number]-JQUPERELIAS CLEMONS Family History Problem Relation Age of Onset Diabetes Mother Hypertension Mother Hypertension Father Coronary artery disease Brother Hypertension Brother Diabetes Brother Family Status - Relation Status Age at Mother Father Brother Level of Service:[address]221 [place] OFFICE/OUTPATIENT ESTABLISHED MOD MDM 30 MIN Reason for Visit and Comments: Coronary Artery Disease [187] Hypertension [594789] - Started on atenolol at last visit, had echo in may Hyperlipidemia [182] Shortness of Breath [960631] - PT ONLY HAS ONE LUNG Normal [facility] 36on 06-11-2024 36 From: Elias Manzano MD [...] in his pulse ox with exercise Normal [facility] Telephoneon 06-11-2024 Telephone [id number] Rigo Jefferson 1960 Provider Department Center 06/11/2024 [id number]-USMVDNROADONIS RIVERA Family History Problem Relation Age of Onset Diabetes Mother Hypertension Mother Hypertension Father Coronary artery disease Brother Hypertension Brother Diabetes Brother Family Status - Relation Status Age at Mother Father Brother Normal [facility] No Panel Informationon 05-31 Radiology Study observation (narrative) [facility] XR CERV OTHER 4V AP/LAT/FLX/ EXTon 05-31-2024 IMPRESSION: Severe degenerative disc disease C4-C5. Solid bony fusion C5-C7. [employer] Black And White: [employer] Transcribe Date/Time: May 31 2024 9:27P Dictated by : JENN SANTOYO MD This examination was interpreted and the report reviewed and electronically signed by: JENN SANTOYO MD on May 31 2024 9:29PM [facility] * * *Final Report* * [...] and extension. No prevertebral soft tissue swelling. [facility] Provider, Anderson Aldana [facility] - 05/31/2024 * * *Final Report* * [...] disc disease C4-C5. Solid bony fusion C5-C7. Proofer Black And White: [employer] Transcribe Date/Time: May 31 2024 9:27P Dictated by : JENN SANTOYO MD This examination was interpreted and the report reviewed and electronically signed by: JENN SANTOYO MD on May 31 2024 9:29PM EST [facility] XR CERV OTHER 4V AP/LAT/FLX/ EXTOrdered By: [facility] Provider on 05-31-2024 [facility] XR Lumbar spine Views W flex ion and W extensionon 05-31-2024 IMPRESSION: Mild to moderate multilevel degenerative change lumbar spine and suspected diffuse intrahepatic skeletal hyperostosis. [employer] Black And White: SINAN Transcribe Date/Time: May 31 2024 9:29P [...] compression deformity identified. [facility] * * *Final Report* [...] spine and suspected diffuse intrahepatic skeletal hyperostosis. [employer] Black [employer] White: SINAN Transcribe Date/Time: May 31 2024 9:29P Dictated by : JENN SANTOYO MD This examination was interpreted and the report reviewed and electronically signed by: JENN SANTOYO MD on May 31 2024 9:31PM EST [facility] Office Visiton 05-14-2024 Follow-up visit [id number] JeffersonRigo 1960 M Date Provider Department Center 05/14/2024 [id number]-PJFNFTELIAS MANZANO AYAAN Rehman [facility] Family History Problem Relation Age of Onset Diabetes Mother Hypertension Mother Hypertension Father Coronary artery disease Brother Hypertension Brother Diabetes Brother Family Status - Relation Status Age at Mother Father Brother Level of Service:06376 [place] OFFICE/OUTPATIENT NEW MODERATE MDM 45 MINUTES Reason for Visit and Comments: Hypertension [457962] - New patient to re-establish care. Ref for hypertension. Used to be on antihypertensives but is currently on none. Palpitations [166323] - Sometimes Shortness of Breath [334015] - Has 1 lung, hx of COPD, pulmonary emphysema Dizziness [] Normal [facility] MRI SHOULDER LT WO CONon MRI SHOULDER [...] by: DOMINGA FLYNN Date: 2022-12-08 10:25 Normal [facility] MRI SHOULDER RT WO CONon MRI [...] by: DOMINGA FLYNN Date: 2022-12-08 10:35 Normal [facility] XR CSPINE OBL FLEX_EXTon XR CSPINE [...] RADHA DIAZ Date: 2022-05-31 20:33 Normal [facility] Post Op (General Surgery)on 04-02-2021 Post [...] not he wants to follow-up with a quality process auditor in our system. Provider Impressions He [...] not he wants to follow-up with a quality process auditor in our system. Chief Complaint An [...] not he wants to follow-up with a quality process auditor in our system. Active Problems COPD [...] MG Oral Tablet Results/Data Xray Chest 1 [id number] 04:27PMJesusita Stevenson Test NameResultFlagReference Xray Chest 1 View(Report) FINAL REPORT Interpreted by: МАРИНА MARCELO MD 02/12/21 16:52 Patient Name: RIGO JEFFERSON STUDY: CHEST 1 VIEW; 02/12/2021 4:27 pm INDICATION: chest tube removal. COMPARISON: Prior 11:07 a.m. radiograph. ACCESSION NUMBER(S): [id number] ORDERING CLINICIAN: JESUSITA STEVENSON FINDINGS: Left basilar [...] Apr 02 2021 5:38PM EST (Author) Normal [employer] Admission Risk Screen - Adul ton 02-12-2021 Admission Risk Screen - Adult Allergies: Allergies: No Known Allergies: Patient Verification: New W ID Band Applied in my Departmentno Type of ID Patient is WearingW wristband, but not applied here Patient Transferred from Other Facility ([facility], [facility],etc)no Patient Identity Verified Bypatient ID Band [...] AlertFor Ebola-like Symptoms: Isolate Patient and Notify Provider/Broodmare Foreman For Contact: Notify Provider/Broodmare Foreman Advance Directive: Advance Directive/DNRno (1) Advance Directive [...] Learning Preferencesverbal instruction Cultural Considerationsnone Developmental Considerationsnone Hoahaoism Considerationsnone Learning Assessment (Other Learner): Other learner availableno Depression Screen: During the past month, have you often been bothered by feeling down, depressed or hopelessno (1) During the past month, have you often had little interest or pleasure in doing thingsno (1) Have you had any thoughts of harming anyone elseno (1) [place] Suicide: Risk Screen Not Applicable/Able to Answerable to be screened In the Past Month: Have you wished you were or could go to sleep and not wake upno(1) In the Past Month: Have you had any actual thoughts of killing yourself no(1) Lifetime: Have you ever done, started to do, or prepared to do anything to end your lifeno(1) [place] Suicide Risknegative Adult Nutrition Screen: Have you [...] Pain (nonverbal)verbalization (more content not included)... Normal [facility] BASIC METABOLIC PANELon 02-03 Anion gap [Moles/Vol] 15 mmol/L Normal 10 - 20 [facility] Comment on above: Performed By: #### B MP #### [facility] [address] [place] [address] Calcium [Mass/Vol] 9.5 mg/dL Normal 8.6 - 10.6 [facility] Comment on above: Performed By: #### B MP #### [facility] [address] [place] [address] Chloride [Moles/Vol] 102 mmol/L Normal 98 - 107 [facility] Comment on above: Performed By: #### B MP #### [facility] [address] [place] [address] Creatinine [Mass/Vol] 0.98 mg/dL Normal 0.50 - 1.30 [facility] Comment on above: Performed By: #### B MP #### [facility] [address] [place] [address] GFR- AM. >60 Normal >60 [facility] Comment on above: Result Comment: CALC ULATIONS OF ESTIMATED GFR ARE PERFORMED USING THE MDRD STUDY EQUATION FOR THE IDMS-TRACEABLE CREATININE METHODS. CLIN CHEM 2007;53:766-72 Performed By: #### B MP #### [facility] [address] [place] [address] GFR-NON AM. >60 Normal >60 [facility] Comment on above: Performed By: #### B MP #### [facility] [address] [place] [address] Glucose [Mass/Vol] 133 mg/dL High 74 - 99 [facility] Comment on above: Performed By: #### B MP #### [facility] [address] [place] [address] HCO3 (Bld) [Moles/Vol] 24 mmol/L Normal 21 - 32 [facility] Comment on above: Performed By: #### B MP #### [facility] [address] [place] [address] Potassium [Moles/Vol] 4.3 mmol/L Normal 3.5 - 5.3 [facility] Comment on above: Performed By: #### B MP #### [facility] [address] [place] [address] Sodium [Moles/Vol] 137 mmol/L Normal 136 - 145 [facility] Comment on above: Performed By: #### B MP #### [facility] [address] [place] [address] Urea nitrogen [Mass/Vol] 17 mg/dL Normal 6 - 23 [facility] Comment on above: Performed By: #### B MP #### [facility] [address] [place] [address] CBCon 02-12-2021 Erythrocyte distribution width (RBC) [Ratio] 12.1 % Normal 11.5 - 14.5 [facility] Comment on above: Performed By: #### C BC #### [facility] [address] [place] [address] Hematocrit (Bld) [Volume fraction] 45.8 % Normal 41.0 - 52.0 [facility] Comment on above: Performed By: #### C BC #### [facility] [address] [place] [address] Hemoglobin (Bld) [Mass/Vol] 15.0 g/dL Normal 13.5 - 17.5 [facility] Comment on above: Performed By: #### C BC #### [facility] [address] [place] [address] MCHC (RBC) [Mass/Vol] 32.8 g/dL Normal 32.0 - 36.0 [facility] Comment on above: Performed By: #### C BC #### [facility] [address] [place] [address] MCV (RBC) [Entitic vol] 94 fL Normal 80 - 100 [facility] Comment on above: Performed By: #### C BC #### [facility] [address] [place] [address] NUCLEATED RBC 0.0 /100 WBC Normal 0.0-0.0 [facility] Comment on above: Performed By: #### C BC #### [facility] [address] [place] [address] Platelets (Bld) [#/Vol] 228 10*3/uL Normal 150 - 450 [facility] Comment on above: Performed By: #### C BC #### [facility] [address] [place] [address] RBC 4.85 x10E12/L Normal 4.50 - 5.90 [facility] Comment on above: Performed By: #### C BC #### [facility] [address] [place] [address] WBC (Bld) [#/Vol] 12.8 10*3/uL High 4.4 - 11.3 [facility] Comment on above: Performed By: #### C BC #### [facility] [address] [place] [address] Clinical Event Note-POCon Clinical Event Note-POC Clinical [...] 00:41 by Nataliia Ferris ( (Resident)) Normal [facility] Daily Progress Note-Surgeryo n 02-12-2021 Daily [...] yet. Objective Data: Objective Information: T PRBPSpO2 Value35.27172672/8695% Date/Time02/12 6:4902/12 6:4902/12 6:4902/12 6:4902/12 6:49 Range(35.4C - 36.4C ) (77 - 99 ) (17 - 18 ) (127 - 147 )/ (86 - 91 ) (95% - 96% ) Pain reported at 02/12 2:54: 6 = Moderate ---- Intake and Output ----- Mn/Dy/Year TimeIntakeOutputNet Feb 12, 2021 6:00 [id number] Feb 11, 2021 10:00 [id number] The Intake and Output Totals for the last 24 hours are: IntakeOutputNet [id number] Physical Exam by System: Constitutional: Well developed, [...] Last Updated: 13-Feb-2021 10:13 by Chuck Cook) [facility] Discharge Planning [id number] 0 02-12-2021 Discharge Planning Note2 Discharge Planning: Needs Prior to Discharge (ex. Home Care Orders, IV/O2 prescriptions) Follow up appointments Discharge Barriers (ex. Avoidable days, wait guardianship, pt refuse leave) None Planned Dispositionhome Discharge DestinationHome [facility] Aroda of Choice Explainedyes preference Anticipated Discharge [id number] Discharge Planning 02/12/2021 0135 Discharge Plan Patient transferred from [place] [address] from PACU for diaphragm plication. Pt is A&O times 4. at 3 liters oxygen. Pt denies any medical record librarian use at home. Pt emergency contact lens blocker Sahil Joe- son. Pt have valuable belongings [...] needs when medically ready. [facility]abil [facility] Status: Inpatient Discharge disposition: Home Potential Barriers: none ADOD: 02/12. drainage design coordinator will continue to follow for discharge planning needs. Franny Gilliam RN, Transitional Cowlman/TCC, pager [phone] Discharge note: 02/12/21 @ 1735: PT discharged home at this time. pts peripheral IV taken out prior to DC. pt given DC instructions. pt verbalized understanding. pt refused transport and walked downstairs with his son.---Erika miramontes RN Assessment: Discharge Planning Assessment [id number] Primary Contact Name and NumberAdam [phone](1) Stated Reason for Admissiondiaphragm plication(2) Arrived FromOR (2) Lives Withparent(s)(2) Living Arrangementshouse(2) Resource/Environmental Concernsnone(2) [facility]) Services Anticipated at Transitionnone(2) Discharge Documentation: Discharge/Transfer Date/[id number]-Hzm-3023 17:35 Discharge Modeambulatory Discharged Accompanied Byfamily member [...] Profile - Adult v2 12-Feb-2021 01:31 Normal [facility] Discharge Clstaou3el 021 Discharge Profile2 Discharge Orders: Anticipated Discharge Date: Anticipated Discharge [id number] DNAR: DNAR Status: none Call Provider If [...] hemidiaphragm plication Call to Schedule in2 weeks [place] [address] [place] Phone [phone] Other Clinician Instructions: Other Instructions: Other Clinician [...] Appointments, Other Clinician Instructions, Gold Form - Class A Regional Drivers Summary Last Updated: 12-Feb-2021 15:27 by Jesusita Stevenson ( (Resident)) Normal [facility] Laboratory - Chemistry and C hemistry - challengeon 02-12-2021 Anion gap [Moles/Vol] 15 mmol/L 10 - 20 LX-Isxljec-W [address] Work Phone: Calcium [Mass/Vol] 9.5 mg/dL 8.6 - 10.6 MG-Tino raysa-G [address] Work Phone: Chloride [Moles/Vol] 102 mmol/L 98 - 107 SG-Uzxtvzk-Q [address] Work Phone: CO2 [Moles/Vol] 24 mmol/L 21 - 32 MG-Surger y-[facility] Work Phone: Creatinine [Mass/Vol] 0.98 mg/dL See Below VA-Aeeegjk-T [facility] Work Phone: Comment on above: Reference Range: 0.5 0 - 1.30 Glucose [Mass/Vol] 133 mg/dL above high threshold 74 - 99 NZ-Xfalvzk-Q [facility] Work Phone: Potassium [Moles/Vol] 4.3 mmol/L 3.5 - 5.3 YA-Sgeasxq-N [facility] Work Phone: Sodium [Moles/Vol] 137 mmol/L 136 - 145 MG-Tino raysa-G [facility] Work Phone: Urea nitrogen [Mass/Vol] 17 mg/dL 6 - 23 BE-Bvceqnk-T [facility] Work Phone: Laboratory - Hematology and Cell countson 02-12-2021 Erythrocyte distribution width (RBC) [Ratio] 12.1 % See Below GC-Ytdpujd-B [facility] Work Phone: Comment on above: Reference Range: 11. 5 - 14.5 Hematocrit (Bld) [Volume fraction] 45.8 % See Below JT-Hrbtkko-A [facility] Work Phone: Comment on above: Reference Range: 41. 0 - 52.0 Hemoglobin (Bld) [Mass/Vol] 15.0 g/dL See Below PE-Lnagbyd-Q [facility] Work Phone: Comment on above: Reference Range: 13. 5 - 17.5 MCHC (RBC) [Mass/Vol] 32.8 g/dL See Below NS-Qpgwtav-Q [facility] Work Phone: Comment on above: Reference Range: 32. 0 - 36.0 MCV (RBC) [Entitic vol] 94 fL 80 - 100 KT-Gosqlwh-R [facility] Work Phone: Platelets (Bld) [#/Vol] 228 10*3/uL 150 - 450 DQ-Hwwivam-F [facility] [place] [address] Work Phone: RBC (Bld) [#/Vol] 4.85 {x10E12/L} See Below MG -Surgery-G [address] Work Phone: Comment on above: Reference Range: 4.5 0 - 5.90 WBC (Bld) [#/Vol] 12.8 10*3/uL above high threshold 4.4 - 11.3 KE-Ovnsyrt-J [facility] [place] [address] Work Phone: No Panel Informationon 02-12 >60 >60 QU-C[address]whv-V [address] [facility] Work Phone: Comment on above: CALCULATIONS OF LANRE MATED GFR ARE PERFORMED USING THE MDRD STUDY EQUATION FOR THE IDMS-TRACEABLE CREATININE METHODS. CLIN CHEM 2007;53:766-72 0.0 {/100_WBC} 0.0-0.0 MG-Surgery -[facility] [place] [address] Work Phone: Order Reconciliationon 02-12 Order Reconciliation [...] Hour Allergy oral tablet is continued as Kristian 24 Hour Allergy oral tablet clarithromycin 250 [...] tab(s) orally 2 times a day Normal [facility] Patient Profile - Adult v2on 02-12-2021 Patient Profile - Adult v2 Profile: Initial Info: How to be AddressedDel(1) Spoken Language PreferredEnglish (1) Stated Reason for Admissiondiaphragm plication Patient Belongingsremains with patient Patient Belongings Remaining with Patientcash/credit card; clothing Arrived FromOR Medications Brought to Hospitalno Are you currently using the Personal Electronic Health Record or [employer] (1) Wants Family/Rep Notified of Admissionyes, primary contact Notify PCPnotify PCP Informed of Patient Visiting Rightsyes General Health: Blood Avoidance/Restrictionsnone (1) Previous Transfusion Reactionno(2) Weight in kg109.8 kilogram(s)(3) Weight in edz087 pound(s) Weight Methodactual (measured) (3) Scale Typestanding (3) Height in cm182.8 centimeter(s) Height in feet6 feet(3) Height in inches0 inch(es)(3) Height Methodstated (3) BMI (kg/m2)32.858 square meter [facility] Based Care: How would you like [...] From 1. Vital Signs 11-Feb-2021 12:02 Normal [facility] Radiologyon 02-12-2021 XR Chest Single view Normal MK-Wwimzdl-I [address] Work Phone: XR Chest Single view Normal SJ-Nphmvns-P [address] Work Phone: XR Chest Single view Normal RD-Ymvxsyg-R [address] Work Phone: TH CHEST 1 VIEWon 02-12-2021 TH CHEST 1 VIEW Patient Name: RIGO JEFFERSON STUDY: CHEST 1 VIEW; 02/12/2021 4:27 pm INDICATION: chest tube removal. COMPARISON: Prior 11:07 a.m. radiograph. ACCESSION NUMBER(S): [id number] ORDERING CLINICIAN: JESUSITA STEVENSON FINDINGS: Left basilar [...] Electronically signed by: МАРИНА MARCELO MD Normal [facility] TH CHEST 1 VIEW Patient Name: RIGO JEFFERSON STUDY: CHEST 1 VIEW; 02/12/2021 11:58 am INDICATION: chest tube wet seal. COMPARISON: 7:02 a.m. radiograph. ACCESSION NUMBER(S): [id number] ORDERING CLINICIAN: JESUSITA STEVENSON FINDINGS: Left basilar [...] Electronically signed by: МАРИНА MARCELO MD Normal [facility] CHEST 1 VIEW Patient Name: RIGO JEFFERSON STUDY: CHEST 1 VIEW; 02/12/2021 7:13 am INDICATION: POD 1 s/p diaphragm plication. COMPARISON: 02/11/2021. ACCESSION NUMBER(S): [id number] ORDERING CLINICIAN: SAW SALEEM FINDINGS: Left basilar [...] Electronically signed by: МАРИНА MARCELO MD Normal [facility] No Panel Informationon 02-11 [place] [address] Work Phone: Operative Reports - [facility] [place] [address] Patient Name: RIGO JEFFERSON : 1960 Date of Service: 02/11/2021 Patient Location: [place] [address] Patient Type: I Surgeon: Chuck Cook MD Report Type: Operative Reports PREOPERATIVE DIAGNOSIS: Chronic respiratory failure, left diaphragm dysfunction. POSTOPERATIVE DIAGNOSIS: Chronic respiratory failure, left diaphragm dysfunction. OPERATION/PROCEDURE: Laparoscopic left diaphragm plication with removal of previous diaphragm pacing wires. SURGEON: Chuck Cook MD SENIOR CARE MANAGER(S): Saw Saleem MD. There was no available resident. ANESTHESIA: LOCATION: [facility]. CLINICAL NOTE: This is a patient with [...] TT: 02/12/2021 12:44 PM EST DICTATION NUMBER: [id number] BRIE JOB NUMBER: [id number] CC: PT STATES NONE PCP Electronic Signatures: Chuck Cook) (Signed on 13-Feb-2021 10:15) Authored Unsigned, Draft (SYS GENERATED) (Entered on 12-Feb-2021 12:44) Entered Last Updated: 13-Feb-2021 10:15 by Chuck Cook) Normal [facility] Order Reconciliationon 02-11 Order Reconciliation Page 1 Admission Reconciliation Document Reconciliation Type: Admission from OR requested on behalf of Saw Saleem (Physician) done by Saw Saleem) Admission from OR - Reconciliation: 11-Feb-2021 18:31 by: Saw Saleem) Home MedicationsEnteredLast Dose TakenReconciled with current Order Reconciliation Comment/ Additional Information Kristina 24 Hour Allergy oral tablet 1 tab(s) orally once a [id number]-Feb-2021 AM Reviewed and Held clarithromycin 250 mg oral tablet 250 milligram(s) orally once a day [id number] Clarithromycin Tablet (BIAXIN)DOSE = 250 mg Oral Every 24 Hoursclarithromycin 250 mg oral tablet continued as the inpatient order Clarithromycin diclofenac sodium 50 mg oral delayed release tablet 1 tab(s) orally 2 times a [id number] AM Reviewed and Held oxycodone-acetaminophen 5 mg-300 mg oral tablet 1 tab(s) orally 2 times a day [id number] AM Reviewed and Held Additional Current Orders [...] 15 minute(s)Clinician Notes: Carlota-operative order ONLY Normal [facility] Patient Profile - Preop v2on 02-11-2021 Patient Profile - Preop v2 Profile: Initial Info: How to be AddressedDel(1) Spoken Language PreferredEnglish (1) Source of Informationpatient Are you currently using the Personal Electronic Health Record or Plumzino (1) Are you interested in learning more about [employer] for the management of your healthnot at this time Stated Reason for AdmissionL pulling of wires/pulling lung down Primary Contact Name and NumberAda [phone] Patient Belongingspatient educated regarding responsibility for personal items Medications Brought to Hospitalno General Health: Weight in kg109.8 kilogram(s) Weight in pit353 pound(s) Weight Methodactual (measured) Scale Typestanding Height [...] Learning Preferencesverbal instruction Cultural Considerationsnone Developmental Considerationsnone Hoahaoism Considerationsnone Other learner availableno Falls RiskPatient location auto qualifies him/her for HIGH RISK. Are there any cultural, spiritual, adventism practices/values/needs that are important for us to [...] Profile - Adult v2 12-Dec-2017 16:00 Normal [facility] Preop Checkliston 02-11-2021 Preop Checklist Preop Checklist: Preop Checklist: Arrival [id number] Arrival Time11:48 Procedure TypeL laparoscopic diaphragm plication Temperature C36.1 degrees C Temperature F96.9 degrees F Heart Rate70 beats per minute Respiratory Rate12 breath per minute Blood Pressure Kvvohkxz352 mm/Hg Blood Pressure Bjuqkvzml89 mm/Hg NPO [id number] 00:00 ID Band Onyes Allergy Bandno known [...] 11-Feb-2021 12:02 by Jany Ann (RN) Normal [facility] Radiologyon 02-11-2021 XR Chest Single view Please click on the link to view the study images Normal [place] [address] Work Phone: [facility] Surgical Pathology Depar tmenton 02-11-2021 [facility] Surgical Pathology Department Name RIGO JEFFERSON Pathologist: JACINTO MURRIETA MD Date of Procedure: 02/11/2021 Date Received: 02/12/2021 Date Reported 02/19/2021 Submitting Physician: CHUCK COOK M.D. Location: [facility] Copy To/Referring/Attending: CHUCK COOK M.D. Other External [...] this case. Clinical History: Physician Contact Number: [id number] Fixative (A): Fresh Clinical Diagnosis History: disorders of diaphragm Specimens Submitted As: A: PACING WIRE Gross Description: Received in formalin, labeled with the patient's name and hospital number, are multiple wires with a piece of adipose tissue attached measuring 3.0 x 1.6 x 1.0 cm. A photograph is taken. The attached soft tissue is submitted entirely in one cassette. EXB exb/02/12/2021 [facility] Department of Pathology [address] [place] [address] Normal [facility] Comment on above: Performed By: #### U HCS ####[facility] Surgical Pathology [id number] [place] [address] CORONAVIRUS 2019, SCREEN ASY MPTOMATICon 02-10-2021 SARS-CoV-2 (COVID-19) RNA BECCA+probe Ql (Unsp spec) Not detected Normal Not Detected [facility] Comment on above: Result Comment: . [...] patient management decisions. Fact sheet for providers: https://www.fda.gov/media/998561/download Fact sheet for patients: https://www.fda.gov/media/766418/download This test has received FDA Emergency Use Authorization (EUA) and has been verified by [facility] ([facility]). This test is only authorized for the duration of time that circumstances exist to justify the authorization of the emergency use of in vitro diagnostic tests for the detection of SARS-CoV-2 virus and/or diagnosis of COVID-19 infection under section 564(b)(1) of the Act, 21 U.S.C. 360bbb-3(b)(1), unless the authorization is terminated or revoked sooner. [facility] is certified under CLIA-88 as qualified to perform high complexity testing. Testing is performed in the [facility] laboratories located at [address] [place] [address]. Performed By: #### C OVSC #### [place] [address] Covid 19 Resultson SARS-CoV-2 (COVID-19) RNA BECCA+probe [...] contacted by the [facility] to see if any [...] or Naproxen (Aleve) can also be used. Jklm-poq-vhvxawh cough and cold medicines can be used according to the instructions on the package. Some cjmz-lrj-igmpvht medicines also contain acetaminophen. Make sure you [...] water are not available, use alcohol-based hand curtain supervisor. Avoid touching your eyes, nose, and [...] 24 alem (more content not included)... Normal [facility] CORONAVIRUS 2019, SCREEN ASY MPTOMATICon 02-09-2021 Lab Specimen Source Nasal, Nasopharyngeal Normal [facility] Comment on above: Performed By: #### C OVSC #### [facility] [address] [place] [address] Coronavirus 2019 RNA by PCR, Screening Asymptomticon 02-09-2021 Coronavirus 2019 RNA by PCR, Screening Asymptomtic Not detected Normal See Below WZ-Upbyjcd-D [facility] 107 Work Phone: Comment on above: [...] make patient management decisions.Fact sheet for providers: https://www.fda.gov/media/912266/downloadFact sheet for patients: https://www.fda.gov/media/419046/downloadThis test has received FDA Emergency Use Authorization (EUA) and has been verified by [facility] ([facility]). This test is only authorized for the duration of time that circumstances exist to justify the authorization of the emergency use of in vitro diagnostic tests for the detection of SARS-CoV-2 virus and/or diagnosis of COVID-19 infection under section 564(b)(1) of the Act, 21 U.S.C. 360bbb-3(b)(1), unless the authorization is terminated or revoked sooner. [facility] is certified under CLIA-88 as qualified to perform high complexity testing. Testing is performed in the [facility] laboratories located at [address] [place] [address]. BASIC METABOLIC PANELon 05-2 Anion gap [Moles/Vol] 13 mmol/L Normal 10 - 20 [facility] Comment on above: Performed By: #### B MP ####[id number] [place] [address] Calcium [Mass/Vol] 9.7 mg/dL Normal 8.6 - 10.6 [facility] Comment on above: Performed By: #### B MP ####[id number] [place] [address] Chloride [Moles/Vol] 108 mmol/L High 98 - 107 [facility] Comment on above: Performed By: #### B MP ####[id number] [place] [address] Creatinine [Mass/Vol] 1.04 mg/dL Normal 0.50 - 1.30 [facility] Comment on above: Performed By: #### B MP ####[id number] [place] [address] GFR- AM. >60 Normal >60 [facility] Comment on above: Result Comment: CALC ULATIONS OF ESTIMATED GFR ARE PERFORMED USING THE MDRD STUDY EQUATION FOR THE IDMS-TRACEABLE CREATININE METHODS. CLIN CHEM 2007;53:766-72 Performed By: #### B MP ####[id number] [place] [address] GFR-NON AM. >60 Normal >60 [facility] Comment on above: Performed By: #### B MP ####[id number] [place] [address] Glucose [Mass/Vol] 91 mg/dL Normal 74 - 99 [facility] Comment on above: Performed By: #### B MP ####[id number] [place] [address] HCO3 (Bld) [Moles/Vol] 29 mmol/L Normal 21 - 32 [facility] Comment on above: Performed By: #### B MP ####[id number] [place] [address] Potassium [Moles/Vol] 4.6 mmol/L Normal 3.5 - 5.3 [facility] Comment on above: Performed By: #### B MP ####[id number] [place] [address] Sodium [Moles/Vol] 145 mmol/L Normal 136 - 145 [facility] Comment on above: Performed By: #### B MP ####[id number] [place] [address] Urea nitrogen [Mass/Vol] 13 mg/dL Normal 6 - 23 [facility] Comment on above: Performed By: #### B MP ####[id number] [place] [address] CBCon 01-27-2021 Erythrocyte distribution width (RBC) [Ratio] 12.2 % Normal 11.5 - 14.5 [facility] Comment on above: Performed By: #### C BC ####[id number] [place] [address] Hematocrit (Bld) [Volume fraction] 46.7 % Normal 41.0 - 52.0 [facility] Comment on above: Performed By: #### C BC ####[id number] [place] [address] Hemoglobin (Bld) [Mass/Vol] 15.1 g/dL Normal 13.5 - 17.5 [facility] Comment on above: Performed By: #### C BC ####[id number] [place] [address] MCHC (RBC) [Mass/Vol] 32.3 g/dL Normal 32.0 - 36.0 [facility] Comment on above: Performed By: #### C BC ####[id number] [place] [address] MCV (RBC) [Entitic vol] 96 fL Normal 80 - 100 [facility] Comment on above: Performed By: #### C BC ####[id number] [place] [address] NUCLEATED RBC 0.0 /100 WBC Normal 0.0-0.0 [facility] Comment on above: Performed By: #### C BC ####[id number] [place] [address] Platelets (Bld) [#/Vol] 209 10*3/uL Normal 150 - 450 [facility] Comment on above: Performed By: #### C BC ####[id number] [place] [address] RBC 4.85 x10E12/L Normal 4.50 - 5.90 [facility] Comment on above: Performed By: #### C BC ####[id number] [place] [address] WBC (Bld) [#/Vol] 7.2 10*3/uL Normal 4.4 - 11.3 [facility] Comment on above: Performed By: #### C BC ####[id number] [place] [address] Follow Up (General Surgery)o n 01-27-2021 Follow [...] EKG; Status:Hold For - Scheduling; Requested for:27Jan2021; Perform:[facility] [place] [address]; Due:27Apr2021;Ordered; For:Diaphragm [...] 2017 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 He was turning the device off 1-2 [...] MG Oral Tablet Vitals Vital Signs Recorded: [id number] 11:12AM Nmfmegukamo00.1 F Heart Rate77 Nnfxlyvs101 Rimuqvcic57 Bdispx706 lb BMI Fjlcpyzmod63.64 kg/m2 BSA Calculated2.33 Tobacco Useb) No Physical [...] the r (more content not included)... Normal Feastie No Panel Informationon 01-27 [email or web address] 1:8080 /musescripts/[email or web address].dll?R etrieveTestByDateTime?Sherita lreKF=[id number]&Date=&Time=13%3a24%3a34%3a 00&TestType=ECG&Site=1&Out putType=PDF&Ext=PDF PP-Wwuliwd-[address] Work Phone: Normal sinus rhythm MG-Ramos rgery-[address] Work Phone: [phone] Normal UJ-Ogmlvdt-E [address] Work Phone: [phone] 1 FX-Ilyzusf-[address] Work Phone: [phone] 1 YE-Tnsnpfx-A [address] Work Phone: [phone] 1 DG-Cnsahwu-[address] Work Phone: [phone] 1 EY-Acqtxuy-T [address] Work Phone: [phone] 1 FY-Otfvvfy-[address] Work Phone: [phone] 1 YX-Lzdrmjf-A [address] Work Phone: [phone] 1 CL-Hkctmxe-L [address] Work Phone: [phone] 1 UZ-Dezslmj-[address] Work Phone: [phone] 1 VT-Ckrpkia-Q [address] Work Phone: [phone] 1 IX-Xdmvhrh-[address] Work Phone: [phone] 1 VB-Vaitjjf-[address] Work Phone: [phone] 1 SJ-Wdomluk-Z [address] Work Phone: [phone] 1 TS-Havcboh-[address] Work Phone: [phone] 1 JB-Zsjcwna-[address] Work Phone: Radiologyon 01-27-2021 XR Chest 2 Views Normal MG-Surge ry-[address] Work Phone: [phone] TH CHEST 2 VIEW PA AND LATon 01-27-2021 TH CHEST 2 VIEW PA AND LAT Patient Name: RIGO JEFFERSON STUDY: CHEST 2 VIEW PA AND LAT; 01/27/2021 11:00 am INDICATION: chronic hypoventilation. COMPARISON: Chest radiograph 04/03/2019 ACCESSION NUMBER(S): [id number] ORDERING CLINICIAN: CHUCK COOK FINDINGS: Inspiratory and [...] Electronically signed by: ANGI CAICEDO MD Normal [facility] Tobacco Screening.on 021 Tobacco use status [facility] b) No RX-Hzvegxd-[address] Work Phone: Tobacco Screening. b) No MG-Tino raysa-[address] Work Phone: Otheron 04-03-2019 XR Chest 2 views Interpreted by: ISAK04/03/19 14:06MRN: [id number] Name: RIGO JEFFERSON STUDY:CHEST 2 VIEW PA [...] Electronically signed by: ISAK 04/03/19 14:06 Normal AD-Kvuzwzs-L [facility] [address] Work Phone: Vital Signs Date Time Vital Sign Value Performing Clinician Facility 09-11-2024 10:23-0500 Body height 182.9 cm Husam Muñoz MD Work Phone: [facility] 09-11-2024 10:23-0500 Body mass index (BMI) [Ratio] 31.46 kg/m2 Husam Muñoz MD Work Phone: [facility] 09-11-2024 10:23-0500 Body weight 105.23 kg Husam Muñoz MD Work Phone: [facility] 09-11-2024 10:23-0500 Heart rate 80 /min Husam Muñoz MD Work Phone: [facility] 07-09-2024 10:24-0500 Body height 182.9 cm Mani Santoyo OCCUPATIONAL THERAPY TECHNICIAN Work Phone: [facility] 07-09-2024 10:24-0500 Body mass index (BMI) [Ratio] 30.38 kg/m2 Mani Santoyo OCCUPATIONAL THERAPY TECHNICIAN Work Phone: [facility] 07-09-2024 10:24-0500 Body temperature 97.11 [degF] Mani Santoyo OCCUPATIONAL THERAPY TECHNICIAN Work Phone: [facility] 07-09-2024 10:24-0500 Body weight 101.61 kg Mani Santoyo OCCUPATIONAL THERAPY TECHNICIAN Work Phone: [facility] 07-09-2024 10:24-0500 Diastolic blood pressure 70 mm[Hg] Mani Santoyo OCCUPATIONAL THERAPY TECHNICIAN Work Phone: [facility] 07-09-2024 10:24-0500 Heart rate 81 /min Mani Santoyo OCCUPATIONAL THERAPY TECHNICIAN Work Phone: [facility] 07-09-2024 10:24-0500 Respiratory rate 16 /min Mani Santoyo OCCUPATIONAL THERAPY TECHNICIAN Work Phone: [facility] 07-09-2024 10:24-0500 SaO2% (BldA) [Mass fraction] 98 % Mani Santoyo OCCUPATIONAL THERAPY TECHNICIAN Work Phone: [facility] 07-09-2024 10:24-0500 Systolic blood pressure 110 mm[Hg] Mani Santoyo OCCUPATIONAL THERAPY TECHNICIAN Work Phone: [facility] 06-06-2024 15:30-0400 Body mass index (BMI) [Ratio] 29.43 kg/m2 Mani Santoyo OCCUPATIONAL THERAPY TECHNICIAN Work Phone: [facility] 06-06-2024 15:30-0400 Body temperature 97.39 [degF] Mani Santoyo OCCUPATIONAL THERAPY TECHNICIAN Work Phone: [facility] 06-06-2024 15:30-0400 Body weight 98.43 kg Mani Santoyo OCCUPATIONAL THERAPY TECHNICIAN Work Phone: [facility] 06-06-2024 15:30-0400 Diastolic blood pressure 78 mm[Hg] Mani Santoyo OCCUPATIONAL THERAPY TECHNICIAN Work Phone: [facility] 06-06-2024 15:30-0400 Heart rate 73 /min Mani Santoyo OCCUPATIONAL THERAPY TECHNICIAN Work Phone: [facility] 06-06-2024 15:30-0400 Respiratory rate 16 /min Mani Santoyo OCCUPATIONAL THERAPY TECHNICIAN Work Phone: [facility] 06-06-2024 15:30-0400 SaO2% (BldA) [Mass fraction] 96 % Mani Santoyo OCCUPATIONAL THERAPY TECHNICIAN Work Phone: [facility] 06-06-2024 15:30-0400 Systolic blood pressure 122 mm[Hg] Mani Santoyo OCCUPATIONAL THERAPY TECHNICIAN Work Phone: [facility] 05-03-2024 11:08-0400 Body height 182.9 cm Mani Waltonpatrick OCCUPATIONAL THERAPY TECHNICIAN Work Phone: [facility] 05-03-2024 11:08-0400 Body mass index (BMI) [Ratio] 28.89 kg/m2 Mani Santoyo OCCUPATIONAL THERAPY TECHNICIAN Work Phone: [facility] 05-03-2024 11:08-0400 Body temperature 98.2 [degF] Mani Santoyo OCCUPATIONAL THERAPY TECHNICIAN Work Phone: [facility] 05-03-2024 11:08-0400 Body weight 96.62 kg Mani Waltonpatrick OCCUPATIONAL THERAPY TECHNICIAN Work Phone: [facility] 05-03-2024 11:08-0400 Diastolic blood pressure 74 mm[Hg] Mani Santoyo OCCUPATIONAL THERAPY TECHNICIAN Work Phone: [facility] Comment on above: 134/80 RT ARM LG CUFF 05-03-2024 11:08-0400 Heart rate 102 /min Mani Waltonpatrick OCCUPATIONAL THERAPY TECHNICIAN Work Phone: [facility] Comment on above: 95% O2 05-03-2024 11:08-0400 Systolic blood pressure 164 mm[Hg] Mani Santoyo OCCUPATIONAL THERAPY TECHNICIAN Work Phone: [facility] Comment on above: 134/80 RT ARM LG CUFF 02-12-2021 14:10-0400 SaO2% (BldA) [Mass fraction] 95 % No Pcp Required [facility] 02-12-2021 14:00-0400 Body temperature 97.16 [degF] No Pcp Required [facility] 02-12-2021 14:00-0400 Diastolic blood pressure 83 mm[Hg] No Pcp Required [facility] 02-12-2021 14:00-0400 Heart rate 81 /min No Pcp Required [facility] 02-12-2021 14:00-0400 Respiratory rate 18 /min No Pcp Required [facility] 02-12-2021 14:00-0400 Systolic blood pressure 131 mm[Hg] No Pcp Required [facility] 02-12-2021 03:31-0400 Body height 182.8 cm No Pcp Required [facility] 02-12-2021 03:31-0400 Body weight 109.8 kg No Pcp Required [facility] 01-27-2021 11:12-0400 Body mass index (BMI) [Ratio] 33.64 kg/m2 Chuck Cook MD Work Phone: XQ-[address] Work Phone: 01-27-2021 11:12-0400 Body surface area Derived from formula 2.33 m2 Chuck Cook MD Work Phone: LT-Mvnlxdq-[address] Work Phone: 01-27-2021 11:12-0400 Body temperature 96.1 [degF] Chuck Cook MD Work Phone: QK-Yvhpizx-[address] Work Phone: 01-27-2021 11:12-0400 Body weight 112.49 kg Chuck Cook MD Work Phone: PK-[address] Work Phone: 01-27-2021 11:12-0400 Diastolic blood pressure 85 mm[Hg] Chuck Cook MD Work Phone: IM-Twkagcq-[address] Work Phone: 01-27-2021 11:12-0400 Heart rate 77 /min Chuck Cook MD Work Phone: CW-Tqftbgy-[address] Work Phone: 01-27-2021 11:12-0400 Systolic blood pressure 157 mm[Hg] Chuck Cook MD Work Phone: CP-Vwwsnvx-[address] Work Phone: 04-03-2019 15:37-0400 BMI (Body Mass Index) 30.11 kg/m2 Chandan Travon GB-Txidlmw-[address] Work Phone: 04-03-2019 15:37-0400 Body Temperature 97.9 [degF] Chandan Reedley CM-Xhksqod-[address] Work Phone: 04-03-2019 15:37-0400 Body weight 100.7 kg Chandan Reedley SP-Pmcjltj-Phkuy ll [address] Work Phone: 04-03-2019 15:37-0400 BP Diastolic 74 mm[Hg] Chandan Travon XD-Pcxdrst-Qeduz ll 2099 Work Phone: 04-03-2019 15:37-0400 BP Systolic 121 mm[Hg] Chandan Travon DF-Oqwfyjf-Cfifh ll 2099 Work Phone: 04-03-2019 15:37-0400 BSA (Body Surface Area) 2.23 m2 Chandan Reedley DD-Fboeclh-Ikji[address] Work Phone: 04-03-2019 15:37-0400 Height 182.88 cm Chandan Travon LD-Eweowct-Flbmu ll [address]99 Work Phone: 04-03-2019 15:37-0400 Pulse (Heart Rate) 58 /min Chandan Travon CS-Agxzllw-[address] Work Phone: Encounters Encounter Date Encounter Type Care Provider Facility Start: 09-11-2024 End: 09-14-2024 Telephone encounter Husam Muñoz MD Work Phone: [facility] Comment on above: Results Start: 09-11-2024 End: 09-11-2024 ambulatory HUSAM MUÑOZ Not Available Start: 09-11-2024 End: 09-11-2024 Office outpatient visit 25 minutes Husam Muñoz MD Work Phone: [facility] Comment on above: Hypopituitarism (CMS /HCC) [...] 08-09-2024 End: 08-16-2024 Orders Only Mani Santoyo OCCUPATIONAL THERAPY TECHNICIAN Work Phone: [facility] Comment on above: Chronic allergic rhi nitis Rosacea, unspecified Start: 08-07-2024 End: 08-07-2024 Refill Lianet Talamantes MA [facility] Comment on above: Chronic allergic rhi nitis Start: 07-16-2024 End: 07-16-2024 Refill Mani Santoyo OCCUPATIONAL THERAPY TECHNICIAN Work Phone: [facility] Comment on above: Chronic allergic rhi nitis Start: 07-11-2024 End: 07-11-2024 ambulatory [facility] Start: 07-09-2024 End: 07-09-2024 Bamboo flowsheet Mani Martinezk OCCUPATIONAL THERAPY TECHNICIAN Work Phone: [facility] Start: 07-09-2024 End: 07-09-2024 Bamboo flowsheet Mani Jimeneztrick OCCUPATIONAL THERAPY TECHNICIAN Work Phone: [facility] Start: 07-09-2024 End: 07-09-2024 Office outpatient visit 10 minutes Mani Santoyo OCCUPATIONAL THERAPY TECHNICIAN Work Phone: [facility] Comment on above: Class 1 obesity due to excess calories without serious comorbidity with body mass index (BMI) of 31.0 to 31.9 in adult (Primary Dx) Start: 07-09-2024 End: 07-09-2024 ambulatory MANI SANTOYO Not Available Start: 06-06-2024 End: 06-06-2024 Office outpatient visit 15 minutes Mani Santoyo OCCUPATIONAL THERAPY TECHNICIAN Work Phone: [facility] Comment on above: Chronic obstructive pulmonary disease, unspecified COPD type (CMS/HCC) (Primary Dx); Paralyzed hemidiaphragm; Class 1 obesity due to excess calories without serious comorbidity with body mass index (BMI) of 31.0 to 31.9 in adult Start: 06-06-2024 End: 06-06-2024 ambulatory MANI SANTOYO Not Available Start: 05-31-2024 End: 05-31-2024 Subsequent hospital visit by physician Xr [facility] Work Phone: [facility] General Comment on above: Cervical vertebral f usion [M43.22] Start: 05-31-2024 End: 05-31-2024 Patient encounter procedure Juan Salazar MD Work Phone: [facility] Comment on above: Cervical vertebral f usion (Primary Dx); Spinal stenosis of cervical region Start: 05-21-2024 End: 05-21-2024 Orders Only Mani Martinezk OCCUPATIONAL THERAPY TECHNICIAN Work Phone: [facility] Comment on above: Class 1 obesity due to excess calories without serious comorbidity with body mass index (BMI) of 31.0 to 31.9 in adult (Primary Dx) Start: 05-15-2024 End: 05-15-2024 Refill Mani Santoyo OCCUPATIONAL THERAPY TECHNICIAN Work Phone: [facility] Start: 05-14-2024 End: 05-14-2024 ambulatory [facility] Start: 05-03-2024 End: 05-03-2024 Bamboo flowsheet Mani Martinezk OCCUPATIONAL THERAPY TECHNICIAN Work Phone: [facility] Start: 05-03-2024 End: 05-03-2024 Bamboo flowsheet Mani Jimeneztrick OCCUPATIONAL THERAPY TECHNICIAN Work Phone: [facility] Start: 05-03-2024 End: 05-03-2024 Office outpatient visit 25 minutes Mani Santoyo OCCUPATIONAL THERAPY TECHNICIAN Work Phone: [facility] Comment on above: Chronic obstructive [...] Start: 08-20-2023 Patient encounter procedure Mani Santoyo OCCUPATIONAL THERAPY TECHNICIAN Work Phone: [facility] Start: 02-17-2023 ambulatory COREAS H FAWWAD Facilit [...] related to original px No PCP None FQ-[address] Work Phone: Start: 02-20-2021 Chart Update No PCP None MG-Surgery -[address] Work Phone: Start: 02-11-2021 End: 02-12-2021 Evaluation and management of inpatient Chuck Cook [facility] [place] [address]ks[address] 55 Rm 5511 01 Start: 01-27-2021 Chart Update Chuck Cook MD Work Phone: WU-[address] Work Phone: Start: 04-03-2019 Patient encounter procedure Chandan Cool GK-Ndqxkdj-[address] Work Phone: Start: 01-12-2018 Patient encounter procedure Chandan Matsonmo NS-Lcbsyhx-[address] Work Phone: Start: 11-28-2017 Patient encounter procedure Chandan Cool DW-Wybcvcq-X[address] Work Phone: Start: 11-28-2017 Patient encounter procedure Chandan Matsonmo RY-Hgybyne-[address] Work Phone: Procedures Date Procedure Procedure Detail Performing Clinician Start: 09-07-2024 ALL HEMOGLOBIN Generic External Data Provider Start: 08-24-2024 ALL HEMOGLOBIN Generic External Data Provider Start: 05-31-2024 Radex spine cervical 4 or 5 views Juan Salazar MD Work Phone: Start: 11-01-2023 Colonoscopy Mani rm NP Work Phone: Start: 03-30-2019 Xray Chest 2 View PA + Lateral Chandan Reedley Cholecystectomy Chandan Cool History of Gallbladd er Surgery Chandan Cool History of Knee Surgery Left Chandan Matsonmo History of Neck Surgery Marion Cool Tonsillectomy Chandan Cool Plan of Treatment Date Care Activity Detail Author Start: 2034 RSV Vaccine (1 - 1-dose 75+ series) RSV Vaccine (1 - 1-dose 75+ series) [facility] Start: 11-01-2033 Screening for malignant neoplasm of colon [facility] Start: 03-19-2025 End: 03-19-2025 Patient encounter procedure 03/19/2025 10:30 AM EDT Office Visit [facility] [address] [place] [address] Husam Muñoz MD [address] [place] [address] [facility] Start: 10-30-2024 End: 10-30-2024 Patient encounter procedure 10/30/2024 8:30 AM EST Office Visit [facility] [address] [place] [phone] Mani Santoyo NP [address] [place] [address] [facility] Start: 09-11-2024 End: 09-11-2025 Hemoglobin [Mass/volume] in Blood Hemoglobin Lab Routine Hypopituitarism (CMS/HCC) Expected: 09/11/2024 (Approximate), Expires: 09/11/2025 [facility] Comment on above: Expected: 09/11/2024 (Approximate), Expi res: 09/11/2025 Start: 09-11-2024 End: 09-11-2025 Prostate specific Ag [Mass/volume] in Serum or Plasma PSA Lab Routine Hypopituitarism (CMS/HCC) Expected: 09/11/2024 (Approximate), Expires: 09/11/2025 [facility] Work Phone: Comment on above: Expected: 09/11/2024 (Approximate), Expi res: 09/11/2025 Start: 09-11-2024 End: 09-11-2025 Testosterone [Mass/volume] in Serum or Plasma Testosterone Lab Routine Hypopituitarism ([facility]) Expected: 09/11/2024 (Approximate), Expires: 09/11/2025 [facility] Comment on above: Expected: 09/11/2024 (Approximate), Expi res: 09/11/2025 Start: 09-11-2024 End: 09-11-2024 Patient encounter procedure 09/11/2024 10:20 AM EST Office Visit [facility] [address] [place] [address] Husam Muñoz MD [address] [place] [address] [facility] Start: 08-18-2024 Medicare Annual Wellness (AWV) Medicare Annual Wellness (AWV) [facility] Start: 08-16-2024 End: 08-16-2024 Patient encounter procedure 08/16/2024 8:30 AM EST Office Visit [facility] [address] [place] [phone] Mani Santoyo, GREGORY [address] [place] [phone] [facility] Start: 08-06-2024 End: 08-06-2024 Patient encounter procedure 08/06/2024 10:00 AM EST Office Visit [facility] [address] [place] [phone] Mani Santoyo, GREGORY [address] [place] [address] [facility] Start: 07-26-2024 End: 07-26-2024 Patient encounter procedure 07/26/2024 10:30 AM EST Office Visit [facility] [address] [place] [phone] Mani Santoyo NP [address] [place] [phone] [facility] Start: 07-09-2024 End: 07-09-2024 Patient encounter procedure [facility] Comment on above: Arrived Start: 05-06-2024 Covid-19 Vaccine () Covid-19 Vaccine () [facility] Start: 05-06-2024 Influenza vaccination Influenza Vaccine (#1) [facility] Start: 05-03-2024 End: 05-03-2025 CBC W Auto Differential panel - Blood CBC and differential Lab Routine Primary hypertension (CMS/HCC) Class 1 obesity due to excess calories without serious comorbidity with body mass index (BMI) of 31.0 to 31.9 in adult Expected: 05/03/2024 (Approximate), Expires: 05/03/2025 [facility] Comment on above: Expected: 05/03/2024 (Approximate), Expi res: 05/03/2025 Start: 05-03-2024 End: 05-03-2025 Comprehensive metabolic 2000 panel - Serum or Plasma Comprehensive metabolic panel Lab Routine Primary hypertension (CMS/HCC) Class 1 obesity due to excess calories without serious comorbidity with body mass index (BMI) of 31.0 to 31.9 in adult Expected: 05/03/2024 (Approximate), Expires: 05/03/2025 [facility] Comment on above: Expected: 05/03/2024 (Approximate), Expi res: 05/03/2025 Start: 05-03-2024 End: 05-03-2025 Microalbumin/Creatinine panel in random Urine Microalbumin / creatinine urine ratio Lab Routine Primary hypertension (CMS/HCC) Expected: 05/03/2024 (Approximate), Expires: 05/03/2025 [facility] Work Phone: Comment on above: Expected: 05/03/2024 (Approximate), Expi res: 05/03/2025 Start: 05-03-2024 End: 05-03-2024 Patient encounter procedure 05/03/2024 11:00 AM EDT Office Visit [facility] [address] [place] [address] Mani Santoyo, GREGORY [address] [place] [address] Chronic obstructive pulmonary disease, unspecified [...] 2024 Advance Directive Discussion Advance Directive Discussion [facility] Start: 2024 Pneumococcal Vaccine: 65+ (1 of 1 - PCV) Pneumococcal Vaccine: 65+ (1 of 1 - PCV) [facility] Start: 02-13-2024 Diabetes Screening Diabetes Screening [facility] Start: 02-11-2021 End: 02-12-2022 Ondansetron Injectable 4 mg IntraVenous Push Every 6 Hours PRN ; (ZOFRAN)DOSE = 4 mg IntraVenous Push Every 4 Hours, PRN Nausea & Vomiting Start: 11-Feb-2021 End: 11-Feb-2022 Ordered: 11-Feb-2021 Saw Saleem [facility] Start: 2014 Prostate specific antigen measurement Prostate Cancer Screening Discussion [facility] Start: 2009 Shingrix Vaccine (1 of 2) Shingrix Vaccine (1 of 2) [facility] Start: 2004 Screening for malignant neoplasm of colon [facility] Start: 1994 Lipid panel Lipid Screening [facility] Start: 1978 Urine microalbumin profile DTaP,Tdap,Td Vaccine (1 - Tdap) [facility] Start: 1977 Anxiety Screening Anxiety Screening [facility] Start: 1977 Depression Screening Depression Screening [facility] Start: 1977 Hepatitis C screening Hepatitis C Screening [facility] Start: 1977 HIV screening HIV Screening [facility] Start: 1965 Pneumococcal Vaccine: 65+ Years (1 of 2 - PCV) Pneumococcal Vaccine: 65+ Years (1 of 2 - PCV) [facility] Start: 1959 Screening for malignant neoplasm of colon [facility] End: 06-30-2025 MR Cervical spine WO contrast MRI CERVICAL SPINE WO IVCON Radiology Routine Spinal stenosis of cervical region 1 Occurrences starting 05/31/2024 until 06/30/2025 [facility] Comment on above: 1 Occurrences starting 05/31/2024 until 06/30/2025 End: 06-30-2025 XR CERV OTHER 4V AP/LAT/FLX/EXT XR CERV OTHER 4V AP/LAT/FLX/EXT Radiology Routine Cervical vertebral fusion 1 Occurrences starting 05/31/2024 until 06/30/2025 [facility] Work Phone: Comment on above: 1 Occurrences starting 05/31/2024 until 06/30/2025 XR CERV OTHER 4V AP/LAT/FLX/EXT XR CERV OTHER 4V AP/LAT/FLX/EXT Radiology Routine Cervical vertebral fusion 05/31/2024 2:54 PM EDT [facility] End: 05-24-2025 XR Lumbar spine Views W flexion and W extension XR LUMBAR MOTION 4V AP/LAT/ FLEX/EXT Radiology Routine Spinal stenosis of lumbar region with neurogenic claudication 1 Occurrences starting 04/24/2024 until 05/24/2025 [facility] Work Phone: Comment on above: 1 Occurrences starting 04/24/2024 until 05/24/2025 Payers Date Payer Category Payer Medicare DEVOTED MEDICARE REPLACED BY [facility] [id number] 2022-Present [phone] [address] [place] [address] O [id number] 2022 Medicare (Managed Care) DEVOTED HEALTH [id number] 2020 Unknown [id number] 2018 Unknown 1959 Medicare [id number] 1959 Unknown [id number] 2.16.840.1.750315.3.579.2. 593 1959 Unknown [id number] 2.16.840.1.385403.3.579.2. 59 1959 Unknown [id number] 2.16.840.1.357015.3.579.2. 593 1959 Unknown [id number] 2.16.840.1.679487.3.579.2. 59 1959 Unknown [id number] 2.16.840.1.100257.3.579.2. 59 1959 Unknown [id number] 2.16.840.1.825350.3.579.2. 59 1959 Unknown [id number] 2.16.840.1.634086.3.579.2. 593 1959 Unknown [id number] 2.16.840.1.229463.3.579.2. 59 1959 Unknown [id number] 2.16.840.1.176125.3.579.2. 593 1959 Unknown [id number] 2.16.840.1.425268.3.579.2. 59 1959 Unknown [id number] 2.16.840.1.271008.3.579.2. 1258 1959 Unknown [id number] 2.16.840.1.926118.3.579.2. 1258 1959 Unknown [id number] 2.16.840.1.909564.3.579.2. 1258 1959 Unknown [id number] 2.16.840.1.804432.3.579.2. 1258 1959 Unknown [id number] 2.16.840.1.513698.3.579.2. 1258 1959 Unknown [id number] 2.16.840.1.507946.3.579.2. 1258 1959 Unknown [id number] 2.16.840.1.313864.3.579.2. 1258 1959 Unknown [id number] 2.16.840.1.438180.3.579.2. 1258 1959 Unknown [id number] 2.16.840.1.846367.3.579.2. 1259 Social History Date Type Detail Facility Start: 05-31-2024 End: 06-05-2024 Former smoker Former smoker [facility] Tobacco smoking consumption unknown [facility] Start: 1960 Sex assigned at Not on file [facility] Start: 05-31-2024 End: 06-05-2024 Gender identity Not [...] [facility] NEGATED: Highlighted row - - [address] Work Phone: Functional Status Date Assessment Result Facility Functional observable [facility] NEGATED: Highlighted row Functional performance Functional status health issues are not documented Disease [address] Work Phone: Mental Status Date Assessment Result Facility 02-12-2021 Cognitive functi ons [id number] [facility] NEGATED: Highlighted row Cognitive function [Interpretation] Cognitive status health issues are not documented Disease [address] Work Phone: Clinical Notes 02-11-2021 [...] is testosterone cypionate 100 mg 1/2 ml [id number], testosterone 183 (270-096), hemoglobin 17.8, PSA 1.02. Interim history: 03/2024. Followup visit: . he is testosterone cypionate 100 mg 1/2 ml [id number], testosterone 537 (264-916), hemoglobin not done, PSA [...] PSA. HPI: 08/2023 New patient sent from [facility] for hypogonadism, low testosterone. I [...] months (around 03/11/2025). documented in this encounter [facility] 09-11-2024 Telephone encounter Note Please refax order to [place] [facility] with order diagnosis for PSA updated. They state they spoke to you yesterday about this and you said you were going to send it, but I don't see it in his chart anywhere to send again. Thanks! [facility] 09-11-2024 Miscellaneous Notes Please refax order to [place] with order diagnosis for PSA updated. They state they spoke to you yesterday about this and you said you were going to send it, but I don't see it in his chart anywhere to send again. Thanks! documented in this encounter [facility] 08-15-2024 Telephone encounter Note IZZY:07/09/2024 NOV:10/30/2024 [facility] 08-15-2024 Miscellaneous Notes IZZY:07/09/2024 NOV:10/30/2024 Patient stopped in and stated he is suppose to take 2 pills a day. 1 in morning and 1 at night. He only got a 30 supply and is about out. He would like another script. An documented in this encounter [facility] 08-09-2024 Telephone encounter Note Patient stopped in and stated he is suppose to take 2 pills a day. 1 in morning and 1 at night. He only got a 30 supply and is about out. He would like another script. An [facility] 08-07-2024 Telephone encounter Note IZZY:07/09/2024 NOV:08/16/2024 [facility] 08-07-2024 Miscellaneous Notes IZZY:07/09/2024 NOV:08/16/2024 documented in this encounter [facility] 07-11-2024 Note [place] [facility] Note Reason for cardiology [...] x3, well devel (more content not included)... [facility] 07-09-2024 History of Present illness Narrative Associated [...] 37.5 MG tablet documented in this encounter [facility] 06-06-2024 History of Present illness Narrative [...] if no contraindications documented in this encounter [facility] 06-06-2024 Instructions Mani Santoyo NP - [...] call my office! documented in this encounter [facility] 05-31-2024 History of Present illness [...] PATIENT PRESENTS WITH AN IMPLANTABLE OR ATTACHED GEOPHYSICAL E LOGGER: No RADIOLOGY DEPARTMENT: General X-ray: Exam(s) Completed: Spine X-Ray(s): Cervical AP / LAT / FLEX-EXT and Lumbar AP / LAT / L5-S1 / FLEX-EXT PERIPHERAL IV DATA: Not applicable SIGNED BY: RT Lory(R) May 31, 2024 2:55 PM documented in this encounter [facility] 05-31-2024 History of Present illness Narrative SPINE SURGERY NEW PATIENT This is an in-person visit. PCP: No primary care provider on file. REFERRING PROVIDER: SUBJECTIVE CHIEF COMPLAINT: Hand senior design engineer weakness Decreased sensation over left hemibody Lower [...] muscle groups. Except mild bilateral hand senior design engineer weakness. SENSORY: Creased sensation for light touch [...] was counseled regarding neck pain, hand senior design engineer weakness, decreased sensation over left hemibody, lower back pain, left leg pain, walking difficulty, left leg numbness, lumbar spondylosis, lumbar canal stenosis, lumbar laminectomy with foraminotomy, adjacent segment cervical stenosis, MRI cervical spine. Total face to face time was 45 minutes. SIGNATURE: Juan Salazar MD PATIENT NAME: Rigo Jefferson DATE: May 31, 2024 TIME: 1:44 PM PAGER: documented in this encounter [facility] 05-21-2024 History of Present illness [...] Starting weight 213 documented in this encounter [facility] 05-14-2024 Note [place] [facility] Note Reason for cardiology [...] hemoglobin 16, hematocrit (more content not included)... [facility] 05-03-2024 History of Present illness Narrative Associated Problem(s): Chronic seasonal allergic rhinitis Cetirizine D and Flonase daily. Feels symptoms are well managed. Continue current regimen. Associated Problem(s): Primary hypogonadism in male Follows Endocrinology for testosterone replacement therapy. Associated Problem(s): Chronic pain syndrome R/T severe lumbar stenosis Pain management referred to [facility] Spinal institute for further management. Still following [...] ALBUMIN GLOBULIN RATIO 1.0 Resulting Agency H [facility] COPD: Does not follow pulmonolgy; Has not had any PFT's recently. No medication at this time. States inhalers were too expensive. Feels his symptoms are well managed. Except in excess humidity and warmer weather. Chronic Lumbar Stenosis: Pain management referred to [facility] Spinal institute Still following with Pain Management- [...] at next OV. documented in this encounter [facility] 05-03-2024 Instructions Mani Santoyo NP - 05/03/2024 11:00 AM EDT Have lab work completed. Keep all follow up appointments. Call if you need anything! documented in this encounter [facility] 04-24-2024 Note HNO ID: [id number] Author: MICHELLE FLORENTINO APRN.CHEMICAL ANALYST Service: ? Author Type: Nurse Practitioner Type: Progress Notes Filed: 04/24/2024 16:54 Note Text: Per Triage: Rigo Jefferson is a 64 year old male. that presents with symptoms of low back pain that radiates down the left leg. Previous spine surgery: Yes in [address] Sales. BMI: NA Out of state: No A1C: NA CMT: Injections Control Operator Mobic Oxycodone Studies (Reports unless indicated) MRI Lumbar 04/03/2024 -Severe central canal stenosis at L3-L4 and L4-L5 Disposition: Please schedule with first available lumbar spine surgeon with pre-visit x-ray. [facility] 04-24-2024 History of Present illness Narrative Per Triage: Rigo Jefferson is a 64 year old male. that presents with symptoms of low back pain that radiates down the left leg. Previous spine surgery: Yes in [address] Sales. BMI: NA Out of state: No A1C: NA CMT: Injections Control Operator Mobic Oxycodone Studies (Reports unless indicated) MRI Lumbar 04/03/2024 -Severe central canal stenosis at L3-L4 and L4-L5 Disposition: Please schedule with first available lumbar spine surgeon with pre-visit x-ray. Patient name: Rigo Jefferson Are you being referred by a [facility] for Spine Health Provider or Pain Management Provider at [facility]? No If answer is YES please schedule [...] facility where the MRI/CT/myelogram was completed: [facility] Address: [address] [place] [address] MRI/CT/myelogram viewable in Epic: No If not, please provide [phone] to fax in imaging reports for review. [...] and/or physical therapy was completed Injections [facility] Address: [address] [place] [address] Have you tried any other kinds of [...] surgery was completed: 2001 [facility] or Cannot recall Additional Comments documented in this encounter [facility] 04-19-2024 Note HNO ID: [id number] Author: ?, ?, ? Service: ? Author Type: ? Type: Progress Notes Filed: 04/24/2024 16:54 Note Text: Patient name: Rigo Jefferson Are you being referred by a Center for Spine Health Provider or Pain Management Provider at [facility]? No If answer is YES please schedule [...] facility where the MRI/CT/myelogram was completed: [facility] Address: [address] [place] [address] MRI/CT/myelogram viewable in Epic: No If not, please provide [phone] to fax in imaging reports for review. [...] and/or physical therapy was completed Injections [facility] Address: [address] [place] [address] Have you tried any other kinds of [...] 2001 [facility] or Cannot recall Additional Comments [facility] 12-09-2022 Note CONSULTATION PROCEDURE DATE: [...] our patients to inform us about any gmhw-tom-zoxxhpm medications or herbal remedies/nutritional supplements/alternative remedies. 2. [...] options with their primary care provider. [facility] 11-25-2022 Note CONSULTATION CONSULTATION DATE: 11/25/2022 [...] of his shoulders, bilaterally, without contrast. [facility] 09-03-2022 Note CONSULTATION CONSULTATION DATE: 09/03/2022 [...] three months' time, unless otherwise indicated. [facility] 06-01-2022 Note CONSULTATION CONSULTATION DATE: 06/01/2022 [...] in three months. CC: Shaikh Helena M.D. [facility] 05-18-2022 Note CONSULTATION CONSULTATION DATE: 05/18/2022 [...] to proceed. CC: Shaikh Helena M.D. [facility] 05-18-2022 Note CONSULTATION PROCEDURE DATE: 05/18/2022 [...] be followed up in the office. [facility] 04-29-2022 Note CONSULTATION CONSULTATION DATE: 04/29/2022 [...] for his injections with Dr. Duncan. [facility] 01-27-2022 Note CONSULTATION CONSULTATION DATE: 01/27/2022 [...] in three month's time, unless otherwise indicated. [facility] Signed and Approved by: RAVINDER ANDERSEN . 02/04/2022 16:12:00 [facility] 02-12-2021 Note Send Summary: Discharge Summary [...] at Discharge: .Home Vital Signs: T PRBPSpO2 Value36.10082506/8395% Date/Time02/12 12: 12: 12: 12: 12:10 Range(35.4C - 36.4C ) (77 - 99 ) (17 - 18 ) (127 - 147 )/ (83 - 91 ) (92% - 96% ) As of 12-Feb-2021 12:10:00, patient is on 2 L/min of oxygen Date: Weight/Scale Type:Height: 12-Feb-2021 01:47733.8 kg / atxlhldo802.8 cm Hospital Course: 60 yo male with [...] Call to Schedule in: 2 weeks Location: [facility] [address] [place] [address], [place], [place] Discharge Medications: Home Medication clarithromycin 250 [...] Last Updated: 13-Feb-2021 10:13 by Chuck Cook) [facility] 02-11-2021 Note Post Operative Note: PreOp Diagnosis: diaphragm paralysis Post-Procedure Diagnosis: same Procedure: 1. laparoscopic L diaphragm plication 2. removal of bilateral diaphragm pacing wires 3. L pigtail chest tube placement Surgeon: Dr Chuck Cook Resident/Fellow/Other Soaker Soda Worker: Dr Saw Saleem Anesthesia: GETA Estimated Blood [...] Note Completion Last Updated: 12-Feb-2021 07:53 by Cuhck Cook) [facility] 02-11-2021 Note History & Physical R [...] Last Updated: 11-Feb-2021 15:50 by Chuck Cook) [facility] Chief complaint Narrative - Reported An interactive audio and video telecommunication system which permits real time communications between the patient (at the originating site) and provider (at the distant site) was utilized to provide this telehealth service.Post op [address] Work Phone: Evaluation note Constitutional: Well developed, awake/alert/oriented x3, no distress, alert and cooperativeSkin: warm and dryEyes: PERRL, EOMI, clear scleraENMT: MMMHead/Neck: NCATRespiratory/Thorax: good chest expansion, thorax symmetricCardiovascular: RRRGastrointestinal: Nondistended, soft, non-tender, no rebound tenderness or guardingMusculoskeletal: moves all extremitiesExtremities: well perfusedNeurological: grossly intactPsychological: Appropriate mood and behavior [facility] Evaluation note Diagnosis Spinal stenosis of lumbar region with neurogenic claudication- Primary Spinal stenosis, lumbar region, with neurogenic claudication [facility] Diagnosis Cervical vertebral fusion- Primary Other unspecified back disorder Spinal stenosis of cervical region Spinal stenosis in cervical region [facility] Cervical vertebral fusion Other unspecified back disorder [facility] Diagnosis Chronic obstructive pulmonary disease, unspecified COPD type (CMS/HCC)- Primary Paralyzed hemidiaphragm Class 1 obesity due to excess calories without serious comorbidity with body mass index (BMI) of 31.0 to 31.9 in adult [facility] Diagnosis Primary hypertension (CMS/HCC)- Primary Unspecified [...] Chronic allergic rhinitis documented in this encounter [facility]* Diagnosis Primary hypertension (CMS/HCC)- Primary [...] Chronic allergic rhinitis documented in this encounter [facility]* Diagnosis Class 1 obesity due to excess calories without serious comorbidity with body mass index (BMI) of 31.0 to 31.9 in adult- Primary documented in this encounter [facility]* Diagnosis Primary hypertension (CMS/HCC)- Primary [...] Primary Rosacea, unspecified documented in this encounter [facility]* Diagnosis Chronic obstructive pulmonary disease, unspecified COPD type (CMS/HCC)- Primary Primary hypertension (CMS/HCC) Unspecified essential hypertension Class 1 obesity due to excess calories without serious comorbidity with body mass index (BMI) of 31.0 to 31.9 in adult Hyperlipidemia, unspecified hyperlipidemia type (CMS/HCC) Chronic seasonal allergic rhinitis Primary hypogonadism in male documented in this encounter [facility]* Diagnosis Primary hypertension (CMS/HCC)- Primary [...] not he wants to follow-up with a quality process auditor in our system. [address] Work Phone: Hospital Discharge instructions* [...] week * Follow Up Appointment 2:Physician/Dept/Service: [facility]: [facility]-up / diaphragm pacer removal, hemidiaphragm plicationLocation: [address] [address]Phone Number: [phone] * Gold Form - Other Clinicians:Other Clinician Instructions: Please take your medications as directed. Please follow-up with Dr. Cook and with your PCP as directed. You may remove dressings and shower Tuesday. No heavy lifting >20lbs or strenours activity for 3 weeks. If your symptoms return orworsen, please seek medical attention. Thank you for allowing us to participate in your care. [facility] Diagnostic Procedure Only (Routine) - New Request Specialty Diagnoses / Procedures Referred By Contac t Referred To Contact XR IMAGING Diagnoses Spinal stenosis of lumbar region with neurogenic claudication Procedures XR LUMBAR MOTION 4V AP/LAT/ FLEX/EXT RADEX SPINE LUMBOSACRAL MINIMUM 4 VIEWS Michelle Florentino, TAB.CHEMICAL ANALYST [address] [place] [address] [facility] [place] [address] Referral ID Status Reason Start Date Expiration Date Visits Requested Visits Authorized [id number] New Request Auto-Generat ed Referral 04/24/2024 05/24/2025 1 1 [facility] for referral (narrative)* Diagnostic Procedure Only (Routine) - Closed Specialty Diagnoses / Procedures Referred By Contac t Referred To Contact XR IMAGING Diagnoses Cervical vertebral fusion Procedures XR CERV OTHER 4V AP/LAT/FLX/EXT RADEX SPINE CERVICAL 4 [place] [address] [place] [address] [facility] [place] [address] Referral ID Status Reason Start Date Expiration Date V isits Requested Visits Authorized [id number] Closed Auto-Generate d Referral 05/31/2024 06/30/2025 1 1 T [facility] for referral (narrative)* Consultation (Urgent) - Authorized Specialty Diagnoses / Procedures Referred By Contac t Referred To Contact Pulmonary Disease Diagnoses Chronic obstructive pulmonary disease, unspecified COPD type (CMS/HCC) Paralyzed hemidiaphragm Procedures [place] OFFICE/OUTPATIENT NEW HIGH MDM 60 MINUTES Mani Santoyo NP [address] [place] [address] Aly Mosley MD [address] [place] [address] Referral ID Status Reason Start Date Expiration Date Visits Requested Visits Authorized [id number] Authorized Specialty Services Required 06/06/2024 12/03/2024 1 [...] CERVICAL W/[place] [address] [place] [address] [id number] Referral ID Status Reason Start Date Expiration Date Visits Requested Visits Authorized [id number] New Request Auto-Generat ed Referral 05/31/2024 06/30/2025 1 1 Specialty Diagnoses / Procedures Referred By Contac t Referred To Contact XR IMAGING Diagnoses Cervical vertebral fusion Procedures XR CERV OTHER 4V AP/LAT/FLX/EXT RADEX SPINE CERVICAL 4 [place] [address] [place] [id number] [id number] Referral ID Status Reason Start Date Expiration Date V isits Requested Visits Authorized [id number] Closed Auto-Generate d Referral 05/31/2024 06/30/2025 1 [...] section and content) DATE CREATED AUTHOR 04/04/2021 [employer] DATE CREATED AUTHOR AUTHOR'S ORGANIZ ATION 04/08/2021 [facility] DATE CREATED AUTHOR AUTHOR'S ORGANIZ ATION 12/31/2022 [facility] DATE CREATED AUTHOR AUTHOR'S ORGANIZ ATION 04/26/2024 [facility] DATE CREATED AUTHOR AUTHOR'S ORGANIZ ATION 07/12/2024 [facility] DATE CREATED AUTHOR AUTHOR'S ORGANIZ ATION 09/17/2024 [facility] EPIC Source Comments (unrecognize d section and content) In the event this informatio n is protected by the Federal Confidentiality of Alcohol and Drug Abuse Patient Records regulations: The Federal rules restrict any use of the information to criminally investigate or prosecute any alcohol or drug abuse patient.[facility] Hospital[facility] the event this information is protected by the Federal Confidentiality of Alcohol and Drug Abuse Patient Records regulations: The Federal rules restrict any use of the information to criminally investigate or prosecute any alcohol or drug abuse patient.[facility] HospitalIn the event this information is protected by the Federal Confidentiality of Alcohol and Drug Abuse Patient Records regulations: The Federal rules restrict any use of the information to criminally investigate or prosecute any alcohol or drug abuse patient.[facility] Care Teams (unrecognized sec tion and content) Education Department Registrar Relationship Specialty Start Date End Date Tonny Hernandez MD [address] [place] [address] Referring Pain Management 04/16/24 Education Department Registrar Relationship Specialty Start Date End Date Tonny Hernandez MD [address] [place] [address] Referring Pain Management 04/16/24 Education Department Registrar Relationship Specialty Start Date End Date Tonny Hernandez MD [address] [place] [address] Referring Pain Management 04/16/24 Education Department Registrar Relationship Specialty Start Date End Date Rosa Barker MD [address] [place] [address] PCP - Devoted 09/05/22 Nikunj Yanez MD [address] [place] [address] PCP - General Family Medicine 04/09/24 Mani Santoyo NP [address] [place] [address] Nurse Practitioner Family Medicine 04/09/24 Education Department Registrar Relationship Specialty Start Date End Date Rosa Barker MD [address] [place] [address] PCP - Devoted 09/05/22 Nikunj Yanez MD [address] [place] [address] PCP - General Family Medicine 04/09/24 Mani Santoyo NP [address] [place] [address] Nurse Practitioner Family Medicine 04/09/24 Education Department Registrar Relationship Specialty Start Date End Date Rosa Barker MD [address] [place] [address] PCP - Devoted 09/05/22 Nikunj Yanez MD [address] [place] [address] PCP - General Family Medicine 04/09/24 Mani Santoyo NP [address] [place] [address] Nurse Practitioner Family Medicine 04/09/24 Education Department Registrar Relationship Specialty Start Date End Date Rosa Barker MD [address] [facility] [address] [place] [address] PCP - Devoted 09/05/22 Nikunj Yanez MD [address] [place] [address] PCP - General Family Medicine 04/09/24 Mani Santoyo NP [address] [place] [address] Nurse Practitioner Family Medicine 04/09/24 Education Department Registrar Relationship Specialty Start Date End Date Rosa Barker MD [address] [facility] [place] [address] PCP - Devoted 09/05/22 Nikunj Yanez MD [address] [place] [address] PCP - General Family Medicine 04/09/24 Mani Santoyo NP [address] [place] [address] Nurse Practitioner Family Medicine 04/09/24 Education Department Registrar Relationship Specialty Start Date End Date Rosa Barker MD [address] [facility] [address] [place] [address] PCP - Devoted 09/05/22 Nikunj Yanez MD [address] [place] [address] PCP - General Family Medicine 04/09/24 Mani Santoyo NP [address] [place] [address] Nurse Practitioner Family Medicine 04/09/24 Education Department Registrar Relationship Specialty Start Date End Date Rosa Barker MD [address] [place] [address] PCP - Devoted 09/05/22 Nikunj Yanez MD [address] [place] [address] PCP - General Family Medicine 04/09/24 Mani Santoyo NP [address] [place] [address] Nurse Practitioner Family Medicine 04/09/24 Education Department Registrar Relationship Specialty Start Date End Date Rosa Barker MD [address] [facility] [address] [place] [address] PCP - Devoted 09/05/22 Nikunj Yanez MD [address] [place] [address] PCP - General Family Medicine 04/09/24 Mani Santoyo NP [address] [place] [address] Nurse Practitioner Family Medicine 04/09/24 Education Department Registrar Relationship Specialty Start Date End Date Rosa Barker MD [address] [facility] [address] [place] [address] PCP - Devoted 09/05/22 Nikunj Yanez MD [address] [place] [address] PCP - General Family Medicine 04/09/24 Mani Santoyo NP [address] [place] [address] Nurse Practitioner Family Medicine 04/09/24 Education Department Registrar Relationship Specialty Start Date End Date Rosa Barker MD [address] [place] [address] [place] [address] PCP - Devoted 09/05/22 Nikunj Yanez MD [address] [place] [address] PCP - General Family Medicine 04/09/24 Mani Santoyo NP [address] [place] [address] Nurse Practitioner Family Medicine 04/09/24 Reason for Visit (unrecogniz ed section and content) Reason Comments New Patient Reason Comments Radio Gen RMP Specialty Diagnoses / Procedures Referred By Contac t Referred To Contact XR IMAGING Diagnoses Cervical vertebral fusion Procedures XR CERV OTHER 4V AP/LAT/FLX/EXT RADEX SPINE CERVICAL 4 [place] [address] [place] [address] [place] [address] Referral ID Status Reason Start Date Expiration Date V isits Requested Visits Authorized [id number] Closed Auto-Generate d Referral 05/31/2024 06/30/2025 1 [...] BE BASED ON THE PRIMARY CLINICAL RECORDS. [employer] provides no warranty or guarantee of the accuracy or completeness of information in this document.
[2024-12-24 07:03] VITALS: BP 161/88; PULSE 69; TEMP 36.7; O2SAT 97
[2024-12-24 07:44] VITALS: BP 143/68; PULSE 70; O2SAT 97
[2024-12-24 07:46] VITALS: BP 145/70; PULSE 68; O2SAT 97
--- NOTE | 2024-12-24 07:48 | P.ON_ITS ---
Date of procedure: 12/24/24 Pre-op diagnosis: Pain due to lumbar stenosis with neurogenic claudication Post-op diagnosis: same as pre-op Procedure: Procedure: Left L3-4, L4-5 transforaminal epidural steroid injection Medications: Bupivacaine 0.25% 2cc, lidocaine 2% 1cc, dexamethasone 10mg The patient was seen and examined in the preoperative holding area.? Informed consent was obtained and placed on the chart.? Patient was brought to the medical procedure unit and placed in the prone position where a timeout was completed verifying the correct patient, procedure site, position, and planned special equipment using sterile aseptic technique.? Under direct fluoroscopic visualization a 25-gauge Quincke tipped spinal needle was advanced to the designated neural foramen where contrast dye was injected to show adequate spread.? The needle was inserted at level left L3-4. There was no evidence of vascular or adverse uptake.? Epidural spread was appreciated.? The above- mentioned injectate was then placed in a 1.5 mL aliquot preceded by negative aspiration.? The needle was removed. The needle was inserted and the procedure repeated at level left L4-5.? The surgery site was covered.? Patient was taken to the postprocedural recovery area and monitored for an appropriate length of time before found suitable for discharge in the accompaniment of a responsible adult. Anesthesia: Local Surgeon: Jonas Carrasquillo Pathology: none sent Condition: stable Disposition: no change
[2024-12-24] MEDS: DEXAMETHASONE SOD PHOS 10 MG/ML VIAL INJ (07:50)
[2024-12-24] MEDS: 0.9 % SODIUM CHLORIDE 10 ML SYRINGE - SALINE FLUSH INJ (07:50)
[2024-12-24] MEDS: BUPIVACAINE HCL 0.25% PF 25 MG/10 ML VIAL INJ (07:50)
[2024-12-24] MEDS: IOHEXOL 240 MG/ML - 10 ML VIAL 24 MG INJ (07:51)
[2024-12-24] MEDS: LIDOCAINE HCL 2% 400 MG/20 ML MDV 3 ML INJ (07:51)
== END 2024-12-24 07:52 | disposition home or self-care (01) ==
LOC: SURGOUT 06:48
PROVIDERS: Visit Provider Anesthesiology
DX: M48.062 Spinal stenosis, lumbar region with neurogenic claudication (principal); M54.50 Low back pain, unspecified
CPT/HCPCS: 64483; 64484; J0665; J1100; Q9966

== ENCOUNTER 2025-01-03 08:53 | Outpatient (OUT) | payer OTHER, SELFPAY ==
--- NOTE | 2025-01-03 09:35 | PM.CN ---
Consult Note: HPI Data of Consult Patient: known to practice within the last 3 years Requesting Physician: Sho Galdamez NP Primary Care Provider: MANI CAGE Consult Narrative Reason for consult: f/u Narrative: Ryan Pete a pleasant 64 year old male presents for evaluation of chronic pain. Today pain 3/10 in low back, ache worse with activity. increases to 8/10 at its worst. Pain increased with twisting, pushing, pulling, standing, lifting, activity. Pain improved mildly with TENS, ibuprofen, lidocaine patches, baclofen 10mg BID PRN, and Percocet 5-325mg QID PRN. Patient denies side effects. denies loss of bowel or bladder. recently evaluated by NS who recommends intervention for lumbar stenosis, however pt is very hesitant. recent left L3-4 L4-5 TFESI providing mild relief per pt. cc:: CC: Sho Galdamez NP Review of Systems ROS Status of ROS 10 or more systems reviewed and unremarkable except as noted in history and below Musculoskeletal Reports: back pain, neck pain, extremity pain and joint pain PFSH [facility] Medical History (Updated 01/03/25 @ 09:36 by Sho Galdamez NP) COPD (chronic obstructive pulmonary disease) ?J44.9 - Chronic obstructive pulmonary disease, unspecified (ICD-10) Rheumatoid arthritis ?M06.9 - Rheumatoid arthritis, unspecified (ICD-10) Upper back pain ?M54.9 - Dorsalgia, unspecified (ICD-10) Low back pain ?M54.50 - Low back pain, unspecified (ICD-10) Uses continuous positive airway pressure (CPAP) ventilation at home ?Z99.89 - Dependence on other enabling machines and devices (ICD-10) Emphysema lung ?J43.9 - Emphysema, unspecified (ICD-10) Hypertension ?I10 - Essential (primary) hypertension (ICD-10) Surgical History Hx of cholecystectomy ?Z90.49 - Acquired absence of other specified parts of digestive tract (ICD-10) H/O cardiac catheterization ?Z98.890 - Other specified postprocedural states (ICD-10) H/O heart bypass surgery ?Z95.1 - Presence of aortocoronary bypass graft (ICD-10) History of lung surgery ?Z98.890 - Other specified postprocedural states (ICD-10) History of tonsillectomy ?Z90.89 - Acquired absence of other organs (ICD-10) H/O cervical spine surgery ?Z98.890 - Other specified postprocedural states (ICD-10) H/O carpal tunnel repair ?Z98.890 - Other specified postprocedural states (ICD-10) H/O arthroscopy of knee ?Z98.890 - Other specified postprocedural states (ICD-10) Meds Home Medications and Allergies Home Medications ?Medication ?Instructions ?Recorded ?Confirmed ?Type atorvastatin 40 mg tablet (Lipitor) 40 mg PO DAILY 02/17/23 12/24/24 History baclofen 10 mg tablet 10 mg PO BID 02/17/23 12/24/24 History lidocaine 5 % topical patch 1 patch topical DAILY 02/17/23 12/24/24 History (Lidoderm) testosterone enanthate 50 mg/0.5 50 mg subcut QWEEK 12/13/23 12/24/24 History mL subcutaneous auto-injector (Xyosted) ibuprofen 200 mg tablet 800 mg PO TID PRN pain 12/20/23 12/24/24 History cetirizine 10 mg tablet (Zyrtec) 10 mg PO BID PRN allergy symptoms 03/28/24 12/24/24 History montelukast 10 mg tablet 10 mg PO DAILY 03/28/24 12/24/24 History (Singulair) naloxone 4 mg/actuation nasal 4 mg intranasal Q2M PRN opioid 07/18/24 12/24/24 Rx spray (Narcan) overdose #1 ea oxycodone-acetaminophen 5 mg-325 1 tab PO QID PRN pain #120 tabs 10/18/24 12/24/24 Rx mg tablet (Percocet) atenolol 25 mg tablet mg 12/24/24 History Allergies Allergy/AdvReac Type Severity Reaction Status Date / Time No Known Drug Allergies Allergy Verified 12/24/24 07:02 Exam Constitutional Documenting provider has reviewed patient's vital signs: yes Common normals: no apparent distress, oriented x3, healthy appearing, alert and well nourished General appearance: cooperative HENMT Common normals: normocephalic, hearing grossly normal bilaterally and moist oral mucous membranes Head and scalp: normocephalic Eye Common normals: PERRL Pupil: PERRL Neck & C-Spine Common normals: full ROM General: normal visual inspection Cervical spine: pain with cervical ROM; no cervical spine tenderness Chest Common normals: inspection of chest normal Respiratory Common normals: normal respiratory effort, no retractions and no use of accessory muscles Back & Pelvis Lumbar spine/lower back: ROM limited, pain with ROM and straight leg raise negative bilaterally Sacroiliac joints: SI joint(s) abnormal Other: decreased sensation left L3,4,5 strength 5/5 in BLE left sij positive sho(patricks), gaenslens, thigh thrust, compression test Extremity Common normals: normal to inspection Right lower extremity: hip joint and knee joint Left lower extremity: hip joint Other: left hip: no pain with internal and external rotation right hip: mild to moderate pain with internal and external rotation left knee enlarged diameter, mild edema, pain with medial and lateral stress testing, crepitus noted on exam Neuro Common normals: oriented x3 and CN's II-XII intact bilaterally Sensorium/orientation: alert Gait (neuro): antalgic Motor exam: no movement abnormalities noted Psych Common normals: mental status grossly normal, thought process normal, cooperative, affect normal, speech normal and activity/motor behavior normal Speech: normal speech Thought process: normal thought process Results Additional Findings Additional findings: If on a controlled substance or opioids, I have checked an [place]ARRS report on this patient and there are no aberrancies noted in the prescribing history.??If on a controlled substance or opioid a drug screen was completed and reviewed within the last year, and if there has not been a drug screen completed we ordered one today to monitor higher risk, state monitored pain medication use. As part of providing excellent, safe, comprehensive care, the following was completed at our patient's visit: 1. A medication reconciliation and review to ensure accurate knowledge of current/active medications, including asking our patients to inform us about any ptek-prz-taphfyh medications or herbal remedies/nutritional supplements/alternative remedies. 2. A review to specifically ensure our patients have had annual screening for screening for depression, screening for tobacco use, and screening for unhealthy alcohol use. For concerning screenings had a discussion with the patient, provided patient education, and recommended follow-up with primary care provider when appropriate. If patient noted with a risk of falling, they received education on strength, gait, and balance training to prevent future risk of falling. Assessment and Plan Assessment and Plan (1) Lumbar stenosis with neurogenic claudication: (2) Sacroiliitis: Assessment and Plan: The patient has had over 3 months of moderate to severe low back and left SIJ pain with functional impairment and inadequate response to conservative care including NSAIDS (unless there are contraindication such as concurrent blood thinners), multiple oral or topical pain medications, and home exercise program/physical therapy.? Patient has completed >6 weeks of guided home exercise program and/or formal physical therapy program without relief of their symptoms.? I have reviewed the imaging of the lumbar spine and no red flags were identified.? The Oswestry Disability Index was completed, and the patient scored a 48%.? The patient noted the following:?? moderate to severe pain impacting ADLs, sleeping, sitting, standing, walking, social life and travel We discussed the risks and benefits of the procedure with the patient, and we are NOT planning on using sedation as outlined in the guidelines from Medicare unless there is a documented reason that sedation would be strongly recommended.?? ?The procedure will be completed with fluoroscopic guidance.? (3) Lumbar degenerative disc disease: (4) Encounter for long-term opiate analgesic use: Assessment and Plan: I feel these medications are improving the patient's quality of life and allow them to tolerate activities of daily living as well as participate in recreational activity.? The patient does not report intolerable side effects. The patient is NOT opioid naive and non-pharmacologic and non-opioid treatment has failed to significantly relieve the patient's pain and improve functionality. The patient has a diagnosis that is related to a somatic or visceral pain etiology. ? ?? I reviewed with the patient the potential risks and side effects with the use of? opioid medications including but not limited to respiratory depression,? sedation, and even . I verified the patient has access to naloxone should? these effects occur. I advised the patient to avoid the use of any other? sedation substances including alcohol, THC, and benzodiazepines while? taking opioid medications due to the risk of compounding side effects and? detrimental outcomes. I reviewed the SURVEY METHODOLOGIST, pain treatment agreement, urine? drug screen, and opioid start talking forms. The patient was advised to let? their family know they had Naloxone in case they would need to administer? the medication.? ?? A drug screen was completed within the last year, and no aberrancies were noted regarding their use of controlled substances. The patient understands they are subject to the terms and conditions of the pain contract that they have signed. ? ?? I have checked an OARRS report on this patient today and there are no aberrancies noted in the prescribing history.? (5) Lumbar spondylosis: (6) Osteoarthritis: (7) Muscle spasm: (8) Failed neck syndrome: Plan proceed with left SIJ injection continue current medications, risks vs benefits reviewed consider L3-4 L4-5 vertiflex continue f/u with NS as planned continue HEP as tolerated f/u 2 weeks after injection
== END 2025-01-03 08:54 | disposition home or self-care (01) ==
LOC: PM 08:53
PROVIDERS: Visit Provider Nurse Practitioner
DX: M48.062 Spinal stenosis, lumbar region with neurogenic claudication (principal); M46.1 Sacroiliitis, not elsewhere classified; M51.369 Other intervertebral disc degeneration, lumbar region without mention of lumbar back pain or lower extremity pain; Z79.891 Long term (current) use of opiate analgesic; M47.816 Spondylosis without myelopathy or radiculopathy, lumbar region; M19.90 Unspecified osteoarthritis, unspecified site; M62.838 Other muscle spasm; M96.1 Postlaminectomy syndrome, not elsewhere classified
CPT/HCPCS: G0463

== ENCOUNTER 2025-01-11 08:23 | Outpatient (OUT) | payer OTHER, SELFPAY ==
[2025-01-11 09:22] LABS: Alanine Aminotransferase 43 U/L (16-63); Aspartate Amino Transferase 27 U/L (15-37); Chol HDL Ratio 2.1; Cholesterol 96 mg/dL (<=200); HDL Cholesterol 46 mg/dL (40-60); Triglycerides 45 mg/dL (<=150)
== END 2025-01-11 08:24 | disposition home or self-care (01) ==
LOC: LAB 08:23
PROVIDERS: Visit Provider Internal Medicine Cardiovascular Disease
DX: E78.5 Hyperlipidemia, unspecified (principal)
CPT/HCPCS: 36415; 80061; 84450; 84460

== ENCOUNTER 2025-01-14 10:06 | Day surgery (SDC) | payer OTHER, SELFPAY ==
[2025-01-14 10:55] VITALS: BP 156/90; PULSE 70; TEMP 36.4; O2SAT 97
[2025-01-14 11:23] VITALS: BP 154/72; PULSE 74; O2SAT 95
[2025-01-14 11:24] VITALS: BP 149/74; PULSE 74; O2SAT 95
--- NOTE | 2025-01-14 11:26 | W.PM.PROCNOT ---
Date of procedure: 01/14/25 Pre-op diagnosis: Pain due to left sacroiliitis Post-op diagnosis: same as pre-op Procedure: Procedure: Left block of the nerve innervating the sacroiliac joint Medications: Bupivacaine 0.25% 3cc, depomedrol 40mg After informed consent was obtained, the patient was brought to the medical procedure unit and placed in the prone position, when a timeout was completed verifying correct patient, procedure, site, positioning, implant, and/or special equipment.? The skin overlying the area was prepped and draped in standard sterile fashion using alcohol.? A 25-gauge needle was inserted towards the superior gluteal nerve innervating the left sacroiliac joint under direct fluoroscopic imaging.? Needle tip was advanced until the nerve was encountered.? We instilled a total of 0.5 mL of solution. Subsequently, the dorsal rami of L5, S1, and S2 were approached, and the procedure completed in the same fashion.? Postoperatively needles were removed.? The patient tolerated the procedure well without complication.? The patient reported reduction in pain symptoms postoperatively. Anesthesia: Local Surgeon: Jonas Carrasquillo Pathology: none sent Condition: stable Disposition: no change
[2025-01-14] MEDS: METHYLPREDNISOLONE ACETATE 40 MG/ML VIAL INJ (11:27)
[2025-01-14] MEDS: IOHEXOL 240 MG/ML - 10 ML VIAL 12 MG INJ (11:28)
[2025-01-14] MEDS: LIDOCAINE HCL 2% 400 MG/20 ML MDV INJ (11:28)
[2025-01-14] MEDS: BUPIVACAINE HCL 0.25% PF 25 MG/10 ML VIAL 2 ML INJ (11:28)
== END 2025-01-14 11:30 | disposition home or self-care (01) ==
LOC: SURGOUT 10:08
PROVIDERS: Visit Provider Anesthesiology
DX: M46.1 Sacroiliitis, not elsewhere classified (principal)
CPT/HCPCS: 64451; J0665; J1010; Q9966

== ENCOUNTER 2025-01-30 09:24 | Outpatient (OUT) | payer OTHER, SELFPAY ==
--- OUTSIDE RECORDS SUMMARY | 2024-10-09 10:00 | XMS_ITS ---
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 Role Phone Nikunj Yanez MD Primary Care Provider Nahum silva Aly Mosley Unavailable [phone] Allergies No Known Allergies REASON FOR VISIT 2 mos F/U Medications Medication SIG (Take, Route, Frequency, Duration) Notes Start Date End Date Status oxyCODONE-Acetaminophen 5-325 MG Oral for 30 Days Active Montelukast Sodium 10 MG TAKE 1 TABLET B Y MOUTH DAILY Oral for 90 Days Active Testosterone Cypionate 200 MG/ML INJECT ONE-HALF ml INTRAMUSCULARLY EVERY 2 (TWO) weeks Intramuscular for 84 Days Active Phentermine HCl 37.5 MG TAKE 1 TABLET BY MOUTH IN THE MORNING BEFORE MEALS Oral for 30 Days Active Fluticasone Propionate 50 MCG/ACT 1 spray in each nostril Nasally Twice a day Active Clarithromycin 250 MG Oral for 90 Days Active Meloxicam 15 MG TAKE 1 TABLET BY NAYLA TH DAILY Oral for 30 Days Active Losartan Potassium-HCTZ 50-12.5 MG TAKE 1 TABLET BY MOUTH DAILY Oral for 90 Days Active Cetirizine-Pseudoephedrine ER 5-120 MG TAKE 1 TABLET BY MOUTH IN THE MORNING and ONE TABLET BY MOUTH BEFORE bedtime Oral for 30 Days Active Ipratropium [place] 0.02 % 2.5 mL Inhala tion QID for 30 days 10/09/2024 Active Allergy Relief/Nasal Decongest 5-120 MG TAKE 1 TABLET BY MOUTH DAILY Oral for 30 Days Active Brovana 15 MCG/2ML 2 mL Inhalation Twic e a day Active Atorvastatin Calcium 40 MG 1 tablet Oral ly Once a day for 90 days Active Atenolol 25 MG TAKE 1 TABLET BY NAYLA TH DAILY Oral for 90 Days Active Social History Tobacco Use: Social History Observation Description Date Details (start date - stop date) Former Smoker NA - NA Tobacco Control (Standard) Question Answer Notes Tobacco use: Former smoker How long has it been since y ou last smoked? Greater than 10 years Additional Findings: Tobacco non-user Ex -very heavy cigarette smoker (40+/day) Problems Problem Type SNOMED Code ICD Code Onset Dates Problem Status W/U Status Risk Notes Problem Centrilobular emphysema (63750943) Centrilobular emphysema (J43.2) Active confirmed Vital Signs Weight 241.2 lbs 10/09/2024 Height 72 in 10/09/2024 Blood pressure systolic 137 mm Hg 10/09/19 25 Blood pressure diastolic 78 mm Hg 025 Temperature 96.8 degrees Fahrenheit 10/09/19 25 Heart Rate 77 /min 10/09/2024 Respiratory Rate 18 /min 10/09/2024 BMI 32.71 kg/m2 10/09/2024 Oximetry 93 % 10/09/2024 Encounters Encounter Location Date Provider Diagnosis Pulmonary Medicine [address] [address] 10/09/2024 Aly Mosley Hemidiaphragm paraly sis J98.6 ; Centrilobular emphysema J43.2 ; Pulmonary fibrosis, unspecified J84.10 ; Restrictive lung disease J98.4 ; [place] (obstructive sleep apnea) G47.33 ; CAD (coronary artery disease) I25.10 ; History of tobacco abuse Z87.891 and History of COVID-19 Z86.16 Assessments Encounter Date Diagnosis (ICD Code) Assessment Notes Treatment Notes Treatment Clinical Notes Section Notes 10/09/2024 Hemidiaphragm paralysis (ICD-10 - J98.6) History: ~2001: 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 He does have mild emphysematous changes noted, but the dyspnea appears to be predominantly secondary to diaphragmatic paralysis. PFT 08/24/2024 shows an improvement in spirometry compared to prior testing 05/16/2018, but essentially no change in TLC or DLCO (65% and 65% respectively). As stated above, he has failed PAP therapy along with diaphragmatic pacer. There really are no further options at this point other than pulmonary rehabilitation. He states that [facility] did not want to pay for rehab services, which really does not surprise me regarding this particular entity. For now, I recommended at least to try referring patient to pulmonary rehabilitation based on COPD and diaphragmatic paralysis via phase 2. If this is not covered, I can order him for phase 3, which has a small nodule feet. He states that he would consider that option. 10/09/2024 Centrilobular emphysema (ICD-10 - J43.2) Very mild emphysematous changes noted on HRCT 08/24/2024. He was prescribed Brovana and Yupelri; Yupelri was rejected and patient remains only on Brovana which is not improving his dyspnea. Suggested to try ipratropium nebs (short acting antimuscarinic opposed to long acting which is Yupelri). Patient voiced agreement. Overall, his spirometry has improved from 2018. His dyspnea may not be related to COPD and if that is the case, no inhaled medication will help. He voiced understanding at this possibility. 10/09/2024 Pulmonary fibrosis, unspecified (ICD-10 - J84.10) Chest CT 09/25/2021 noted scattered chronic interstitial changes and fibrosis. F/U HRCT 08/24/2024 shows scattered scarring, L > R, but not true/typical pulmonary fibrosis such as honeycombing. Additionally, there is no significant change in his TLC or DLCO since 2018 which I would expect to worsen if there is some sort of advancing ILD or pulmonary fibrosis. I do not feel he requires any further w/up or monitoring at this time. 10/09/2024 Restrictive lung disease (ICD-10 - J98.4) Secondary to paralyzed left hemidiaphragm. 10/09/2024 [place] (obstructive sleep apnea) (ICD-10 - G47.33) PSG 01/15/2015: AHI 24 PAP titration 02/24/2015: Did not tolerate CPAP, changed to BiPAP Patient tried and failed CPAP and BiPAP therapy - could not tolerate it. 10/09/2024 CAD (coronary artery disease) (ICD-10 - I25.10) Mild RCA disease on [facility] He does not qualify for any supplemental O2 at this time. 10/09/2024 History of tobacco abuse (ICD-10 - Z87.891) 1-2ppd x 30 years, quit 2009. The patient would have only 1 year of eligibility left for LDCT program as it has been 14 years since smoking cessation, and has I am ordering HRCT to investigate the pulmonary fibrosis, he will therefore not meet current LDCT screening criteria. 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 He does have mild emphysematous changes noted, but the dyspnea appears to be predominantly secondary to diaphragmatic paralysis. PFT 08/24/2024 shows an improvement in spirometry compared to prior testing 05/16/2018, but essentially no change in TLC or DLCO (65% and 65% respectively). As stated above, he has failed PAP therapy along with diaphragmatic pacer. There really are no further options at this point other than pulmonary rehabilitation. He states that [facility] did not want to pay for rehab services, which really does not surprise me regarding this particular entity. For now, I recommended at least to try referring patient to pulmonary rehabilitation based on COPD and diaphragmatic paralysis via phase 2. If this is not covered, I can order him for phase 3, which has a small nodule feet. He states that he would consider that option. Centrilobular emphysema Very mild emphysematous changes noted on HRCT 08/24/2024. He was prescribed Brovana and Yupelri; Yupelri was rejected and patient remains only on Brovana which is not improving his dyspnea. Suggested to try ipratropium nebs (short acting antimuscarinic opposed to long acting which is Yupelri). Patient voiced agreement. Overall, his spirometry has improved from 2018. His dyspnea may not be related to COPD and if that is the case, no inhaled medication will help. He voiced understanding at this possibility. Pulmonary fibrosis, unspecified Chest CT 09/25/2021 noted scattered chronic interstitial changes and fibrosis. F/U HRCT 08/24/2024 shows scattered scarring, L > R, but not true/typical pulmonary fibrosis such as honeycombing. Additionally, there is no significant change in his TLC or DLCO since 2018 which I would expect to worsen if there is some sort of advancing ILD or pulmonary fibrosis. I do not feel he requires any further w/up or monitoring at this time. Restrictive lung disease Secondary to paralyzed left hemidiaphragm. [place] (obstructive sleep apnea) PSG 01/15/2015: AHI 24 PAP titration 02/24/2015: Did not tolerate CPAP, changed to BiPAP Patient tried and failed CPAP and BiPAP therapy - could not tolerate it. CAD (coronary artery disease) Mild RCA disease on [facility] He does not qualify for any supplemental O2 at this time. History of tobacco abuse 1-2ppd x 30 years, quit 2009. The patient would have only 1 year of eligibility left for LDCT program as it has been 14 years since smoking cessation, and has I am ordering HRCT to investigate the pulmonary fibrosis, he will therefore not meet current LDCT screening criteria. History of COVID-19 2020 Next Appt Details Follow Up: 3 Months, Reason: COPD, paralyzed hemidiaphragm Provider Name:Aly Mosley, 01/14/2026 10:00:00 AM, [address] [place], [address], Procedure Notes * Category Sub-Category Detail Notes PFT Data: PFT 08/24/2024 - [facility]-FEV1/FVC: 81%-FEV1: 75%-FVC: 70%-Bronchodilator response: None-RV: 69%-T%-DLCO: 65%PFT 05/16/2018 - [facility]-FEV1/FVC: 77%-FEV1: 57%-FVC: 56%-VFD43-88%: 58%-Bronchodilator response: None-RV: 87%-T%-DLCO: 66%PFT 03/14/2017 - [facility]-FEV1/FVC: 78%-FEV1: 52%-FVC: 51%-ILZ84-00%: 52% -Bronchodilator response: Positive in VBI03-28% -RV: 118%-T%-DLCO: 45%PFT 12/05/2014 - [facility]-FEV1/FVC: 81%-FEV1: 60%-FVC: 56%-WNH27-61%: 73% -Bronchodilator response: None -RV: 100%-T%-DLCO: 66% Progress Notes * Ryan PETE NDOB: (64 yo M)Acc No.[id number]:10/09/2024 Follow Up Patient: Mando Ryan SWEENEY Provider: Sherri Mosley DO :1960 A ge:64 Y S ex:Male Date:10/09/2024 Address:[address] [place], [place] [id number] Pcp:LACHELLE VILLALOBOS Check In:01:57 PM ESTCheck O ut:02:36 PM EST Subjective: * Chief Complaints: * 2 mos F/U * HPI: G eneral: Patient was prescribed Brovana and Yupelri last visit. Brovana was covered, but Yupelri was rejected. He remains on Brovana and voices no significant benefit in his breathing. He denies any adverse effects. Patient had PFT and HRCT done 08/24/2024. The PFT (reviewed with the patient), compared to 05/16/2018, actually shows an improvement in his spirometry: FEV1 increased from 57% to 75%, and FVC improved from 56% to 70%. TLC is essentially unchanged at 65%, as well as DLCO at 65%. I personally reviewed HRCT imaging with the patient. There was question in the past regarding fibrosis; the patient does have some scattered scarring throughout the lungs, left greater than right, but these findings are not fibrotic. There is no honeycombing. There is no bronchiectasis. Mild emphysematous changes are noted. MA Intake Comments:. Patient presents for a follow-up for COPD. Patient recently had a PFT & HRCT performed on 08/24/2024. Patient was started on Brovana & Yupelri last visit but states his insurance would not cover Yupelri. Patient reports good benefit with Brovana. Patient complains of SOB with exertion. Patient reports minimal improvement with Brovana. Patient is under the care of [facility] Cardiology. * ROS: G eneral/Constitutional: Fever or sweats d enies. C hange of appetite d enies. C hills d enies. W eight Change d enies. H EENT: Dry mouth d enies. S ore throat d enies. O ral Ulcers d enies. P ost Nasal Drip D enies. C ongestion D enies. H oarseness?Denies. C ardiovascular: Tachycardia d enies. E vanessa D enies. C hest pain d enies. P alpitations d enies. R espiratory: Chest tightness d enies. P leurisy D enies. D yspnea w ith activity & exertion. C ough d enies. H emoptysis d enies. W heezing d enies. G astrointestinal: Acid Reflux/GERD/Heartburn d enies. D ysphagia d enies. M usculoskeletal: Arthralgias/joint pain D enies. S kin: Easy bruising d enies. R se d enies. ? N eurologic: Seizures d enies. T remor d enies. H ematology: Abnormal Bleeding d enies. P sychiatric: Anxiety d enies. * Active Problem List J43.2 Centrilobular emphys kaela Modified On:10/09/2024W/U Status:confirmed I25.10 CAD (coronary artery disease) Modified On:08/08/2024W/U Status:confirmed G47.33 [place] (obstructive sle ep apnea) Modified On:08/08/2024/U Status:confirmed J98.6 Hemidiaphragm paraly sis Modified On:08/08/2024/U Status:confirmed Z87.891 History of tobacco a buse Modified On:08/08/2024/U Status:confirmed Z86.16 History of COVID-19 Modified On:08/08/2024/U Status:confirmed J44.9 Chronic obstructive pulmonary disease, unspecified Modified On:08/27/2024/U Status:confirmed * Medical History: * Surgical History: D iaphragm Pacer Implant 12/12/2017cholecystectomy neck surgery Left knee arthroscopy Laparoscopic Left Diaphragm Plication with removal of previous pacer 1Cardiac Catheterization 12/10/2016tonsillectomy * Hospitalization/Major Diagno stic Procedure: D enies Past Hospitalization * Family History: F ather: COPD, stroke, diagnosed with Unspecified heart disease. B rother(s): COPD, lymphoma. M aternal Grandfather: COPD. M aternal uncle: COPD. M other: diagnosed with Diabetes mellitus without mention of complication, type II or unspecified type, not stated as uncontrolled, Unspecified heart disease. * Social History: T obacco Use: T obacco Control (Standard) T obacco use: F ormer smoker H ow long has it been since you last smoked??Greater than 10 years A dditional Findings: Tobacco non-user E x-very heavy cigarette smoker (40+/day) Electronic Cigarette use C urrent user N o LM: Additional Tobacco Questions N umber of Years Pt Smoked: 3 0 N umber of Packs per Day: 2 When did you stop smokin years ago. M iscellaneous: O ccupation O ccupation: R etired Disabled/[place] Pets: none. D rugs/Alcohol: D rugs H ave you used drugs other than those for medical reasons in the past 12 months? N o D oes the Patient have a History of Drug Abuse in the Past? N o Caffeine I ntake: 1 -2 cups per day Coffee Do you drink alcohol?: No. Do you smoke marijuana?: Denies. * Medications: T akingAllergy Relief/Nasal Decongest(Cetirizine-Pseudoephedrine ER) 5-120 MG Tablet Extended Release 12 Hour TAKE 1 TABLET BY MOUTH DAILY Oral Atenolol 25 MG Tablet TAKE 1 TABLET BY MOUTH DAILY Oral Atorvastatin Calcium 40 MG Tablet 1 tablet Orally Once a day Brovana(Arformoterol Tartrate) 15 MCG/2ML Nebulization Solution 2 mL Inhalation Twice a day Cetirizine-Pseudoephedrine ER 5-120 MG Tablet Extended Release 12 Hour TAKE 1 TABLET BY MOUTH IN THE MORNING and ONE TABLET BY MOUTH BEFORE bedtime Oral Clarithromycin 250 MG Tablet Oral Fluticasone Propionate 50 MCG/ACT Suspension 1 spray in each nostril Nasally Twice a day Losartan Potassium-HCTZ 50-12.5 MG Tablet TAKE 1 TABLET BY MOUTH DAILY Oral Meloxicam 15 MG Tablet TAKE 1 TABLET BY MOUTH DAILY Oral Montelukast Sodium 10 MG Tablet TAKE 1 TABLET BY MOUTH DAILY Oral oxyCODONE-Acetaminophen 5-325 MG Tablet Oral Phentermine HCl 37.5 MG Tablet TAKE 1 TABLET BY MOUTH IN THE MORNING BEFORE MEALS Oral Testosterone Cypionate 200 MG/ML Solution INJECT ONE-HALF ml INTRAMUSCULARLY EVERY 2 (TWO) weeks Intramuscular Taking Allergy Relief/Nasal Decongest(Cetirizine-Pseudoephedrine ER) 5-120 MG Tablet Extended Release 12 Hour TAKE 1 TABLET BY MOUTH DAILY Oral Taking Atenolol 25 MG Tablet TAKE 1 TABLET BY MOUTH DAILY Oral Taking Atorvastatin Calcium 40 MG Tablet 1 tablet Orally Once a day Taking Brovana(Arformoterol Tartrate) 15 MCG/2ML Nebulization Solution 2 mL Inhalation Twice a day Taking Cetirizine- Pseudoephedrine ER 5-120 MG Tablet Extended Release 12 Hour TAKE 1 TABLET BY MOUTH IN THE MORNING and ONE TABLET BY MOUTH BEFORE bedtime Oral Taking Clarithromycin 250 MG Tablet Oral Taking Fluticasone Propionate 50 MCG/ACT Suspension 1 spray in each nostril Nasally Twice a day Taking Losartan Potassium-HCTZ 50-12.5 MG Tablet TAKE 1 TABLET BY MOUTH DAILY Oral Taking Meloxicam 15 MG Tablet TAKE 1 TABLET BY MOUTH DAILY Oral Taking Montelukast Sodium 10 MG Tablet TAKE 1 TABLET BY MOUTH DAILY Oral Taking oxyCODONE-Acetaminophen 5-325 MG Tablet Oral Taking Phentermine HCl 37.5 MG Tablet TAKE 1 TABLET BY MOUTH IN THE MORNING BEFORE MEALS Oral Taking Testosterone Cypionate 200 MG/ML Solution INJECT ONE-HALF ml INTRAMUSCULARLY EVERY 2 (TWO) weeks Intramuscular Not-Taking/PRNYupelri(Revefenacin) 175 MCG/3ML Solution 3 mL Inhalation Once a day Medication List reviewed and reconciled with the patientNot- Taking/PRN Yupelri(Revefenacin) 175 MCG/3ML Solution 3 mL Inhalation Once a day Medication List reviewed and reconciled with the patient * Allergies: N .K.D.A.no[Allergies Verified] Objective: * Vitals: W t:241.2lbs, Ht: 72 in, BP:sittin/78mm Hg, Temp:Forehead:96.8F, HR:77/min, RR:18/min, BMI:32.71Index, Oxygen sat %:Room Air:93%, Ht-cm: 182.88 cm, Wt-k.41 kg. * Examination: E xam: GENERAL APPEARANCE: A ppears stated age. Skin N ormal. Mouth P ink and moist. Poor dentition. Oropharynx M allampati Class III. Trachea M idline. Chest N ormal. Respiratory Normal M ovements, E ffort N ormal. Auscultation D iminished/absent breath sounds in the left lung base. Right lung clear. Overall unchanged. Percussion M ild dullness in the left lower lung region.? Cardiac R egular rate and rhythm. Gastrointestinal N ormal. Vascular N o edema. Musculoskeletal N ormal posture. Neurological F ocal, intact. Psychiatric A lert and oriented x3. Mentation/Cognition N ormal. Assessment: * Assessment: 1. H emidiaphragm paralysis - J98.6 (Primary) 2 . C entrilobular emphysema - J43.2 3 . P ulmonary fibrosis, unspecified - J84.10 4 . R estrictive lung disease - J98.4 5 . O SA (obstructive sleep apnea) - G47.33 6 . C AD (coronary artery disease) - I25.10 7 . H istory of tobacco abuse - Z87.891 8 . H istory of COVID-19 - Z86.16 Plan: * Treatment: 2. C entrilobular emphysema Notes: Very mild emphysematous changes noted on HRCT 08/24/2024. He was prescribed Brovana and Yupelri; Yupelri was rejected and patient remains only on Brovana which is not improving his dyspnea. Suggested to try ipratropium nebs (short acting antimuscarinic opposed to long acting which is Yupelri). Patient voiced agreement. Overall, his spirometry has improved from 2018. His dyspnea may not be related to COPD and if that is the case, no inhaled medication will help. He voiced understanding at this possibility. ? 3. P ulmonary fibrosis, unspecified Notes: Chest CT 09/25/2021 noted scattered chronic interstitial changes and fibrosis. F/U HRCT 08/24/2024 shows scattered scarring, L > R, but not true/typical pulmonary fibrosis such as honeycombing. Additionally, there is no significant change in his TLC or DLCO since 2018 which I would expect to worsen if there is some sort of advancing ILD or pulmonary fibrosis. I do not feel he requires any further w/up or monitoring at this time. 4. R estrictive lung disease Notes: Secondary to paralyzed left hemidiaphragm. 5. O SA (obstructive sleep apnea) Notes: PSG 01/15/2015: AHI 24 PAP titration 02/24/2015: Did not tolerate CPAP, changed to BiPAP Patient tried and failed CPAP and BiPAP therapy - could not tolerate it. 6. C AD (coronary artery disease) Notes: Mild RCA disease on [facility] He does not qualify for any supplemental O2 at this time. 7. H istory of tobacco abuse Notes: 1-2ppd x 30 years, quit 2009. The patient would have only 1 year of eligibility left for LDCT program as it has been 14 years since smoking cessation, and has I am ordering HRCT to investigate the pulmonary fibrosis, he will therefore not meet current LDCT screening criteria. 8. H istory of COVID-19 Notes: 2020 9. O thers Stop Yupelri Solution, 175 MCG/3ML, 3 mL, Inhalation, Once a day; S tart Ipratropium [place] Solution, 0.02 %, 2.5 mL, Inhalation, QID, 30 days, 120 each, Refills 12. * Procedures: P FT: Data: PFT 08/24/2024 - [facility] -FEV1/FVC: 81% -FEV1: 75% -FVC: 70% -Bronchodilator response: None -RV: 69% -T% -DLCO: 65% PFT 05/16/2018 - [facility] -FEV1/FVC: 77% -FEV1: 57% -FVC: 56% -JKX85-94%: 58% -Bronchodilator response: None -RV: 87% -T% -DLCO: 66% PFT 03/14/2017 - [facility] -FEV1/FVC: 78% -FEV1: 52% -FVC: 51% -RPH38-48%: 52% -Bronchodilator response: Positive in XFP77-49% -RV: 118% -T% -DLCO: 45% PFT 12/05/2014 - [facility] -FEV1/FVC: 81% -FEV1: 60% -FVC: 56% -PYZ79-11%: 73% -Bronchodilator response: None -RV: 100% -T% -DLCO: 66%. * Procedure Codes: * Preventive Medicine: COVID Vaccination: H as patient had COVID Vaccination? COVID Vaccination N o Patient Refused Immunization Status: P neumovacc P t Refused. I nfluenza P t Refused. Screenings/Counseling: F ALL RISK SCREENING Fall Risk Assessment: N o falls in the past year Are you afraid of falling? N o T OBACCO ACTION PLAN Patient counselled on the dangers of tobacco use and urged to quit. 0 10/09/2024 Former Education on smoking effects provided?10/09/2024 Former F RICH EXCLUSION Reason: P atient Reason refused/declined Type of Patient Reason: D rug declined by patient B [place] ACTION PLAN Above Normal BMI Follow-up D ietary management education, guidance, and counseling * Follow Up: 3 Months (Reason: COPD, paralyzed hemidiaphragm) * * Sign off status: Completed Visit Status: C HK (Check Out) true * Provider: Sherri Mosley DO Date: 0 10/09/2024 Generated for Christa herbert/Rodrigo/Yogi on: 0 01/30/2025 09:27 AM EDT History and Physical Notes * HPI (History of Present Illness) Category Sub-Category Detail Notes Category Not es General Patient present s for a follow-up for COPD. Patient recently had a PFT & HRCT performed on 08/24/2024. Patient was started on Brovana & Yupelri last visit but states his insurance would not cover Yupelri. Patient reports good benefit with Brovana. Patient complains of SOB with exertion. Patient reports minimal improvement with Brovana. Patient is under the care of [facility] Cardiology. Examination Category Sub-Category Detail Notes Category Not es Exam GENERAL APPEARANCE: Appears stated age Skin Normal Mouth [place] and moist. Poor dentition Trachea Midline Chest Normal Ribs Sternum Scar Supraclavicular ([place]) node Respiratory Normal Movements, Ef fort Normal Auscultation Diminished/absent br eath sounds in the left lung base. Right lung clear. Overall unchanged Percussion Mild dullness in the left lower lung region Cardiac Regular rate and rhy thm Gastrointestinal Normal Vascular No edema Musculoskeletal Normal posture Neurological Focal, intact Psychiatric Alert and oriented x 3 Mentation/Cognition Normal Oropharynx Mallampati Class III
--- OUTSIDE RECORDS SUMMARY | 2024-10-09 10:22 | XMS_ITS ---
Author Organization [facility] [place] Address [address] [place] [address] Care Team Providers Care Is/It Project Manager Name Role Phone Nikunj Yanez MD Primary Care Provider Unavailab Aly Lind Unavailable [phone] REASON FOR VISIT Yupelri Rx Encounters Encounter Location Date Provider Diagnosis Pulmonary Medicine [place] [address] [place] [address] 10/09/2024 Alykatharina Munroe Plan Of Treatment Next Appt Details Provider Name:Aly Mosley, 01/14/2026 10:00:00 AM, [address] [place], [address], Progress Notes * Ryan PETE NDOB: (64 yo M)Acc No.[id number]:10/09/2024 Patient: Mnado Ryan SWEENEY :1960 A ge:64 Y S ex:Male Address:[address] [place], [address] * true * Date: Generated for Printi ng/Falyudmilag/eTransmitting on: 0 01/30/2025 09:26 AM EDT
--- OUTSIDE RECORDS SUMMARY | 2024-10-23 06:00 | XMS_ITS ---
Author Organization [facility] Address [address] [place] [address] Care Team Providers Care Prepress Proofer Name Role Phone Obdulia Linda Primary Care Provider Dakota Bonilla Unavailable [phone] REASON FOR VISIT EXT-45 MIN Encounters Encounter Location Date Provider Diagnosis [address] [place] [address] 10/23/2024 Dakota Bonilla Plan Of Treatment No Information Progress Notes * RIGO JEFFERSONDOB:05/1960 (64 yo M)Acc No.[id number]:10/23/2024 Patient: Madno BARROSRIGO TRAN Provider: Diana Bonilla DDS :1960 A ge:64 Y S ex:Male Date:10/23/2024 Address:[address] [place] [address] [place], [id number] Pcp:Obdulia Mercado Subjective: * Chief Complaints: * 1 . EXT-45 MIN. * Medical History: Objective: * Vitals: Assessment: Plan: * Treatment: * Images: * Electronic signature of Abundio Bonilla DDS on 01/30/2025 at 09:27 AM EDT Sign off status: Pending * Provider: Diana Bonilla DDS Date: 10/23/2024 Generated for Ankuri ng/Falyudmilag/eTransmitting on: 01/30/2025 09:27 AM EDT
--- OUTSIDE RECORDS SUMMARY | 2024-10-30 04:30 | XMS_ITS ---
Author Organization [facility] Address [address] [place] [address] Care Team Providers Care Public Policy Manager Name Role Phone Obdulia Linda Primary Care Provider Dakota Bonilla Unavailable [phone] REASON FOR VISIT EXT-45 MINUTES Encounters Encounter Location Date Provider Diagnosis [address] [place] [address] 10/30/2024 Dakota Bonilla Plan Of Treatment No Information Progress Notes * RIGO JEFFERSONDOB:05/1960 (64 yo M)Acc No.[id number]:10/30/2024 Patient: Mando BARROSRIGO TRAN Provider: Diana Bonilla DDS :1960 A ge:64 Y S ex:Male Date:10/30/2024 Address:[address] [place] [address] [id number] Pcp:Obdulia Mercado Subjective: * Chief Complaints: * 1 . EXT-45 MINUTES. * Medical History: Objective: * Vitals: Assessment: Plan: * Treatment: * Images: * Electronic signature of Abundio Bonilla DDS on 01/30/2025 at 09:26 AM EDT Sign off status: Pending * Provider: Diana Bonilla DDS Date: 10/30/2024 Generated for Ankuri ng/Falyudmilag/eTransmitting on: 0 01/30/2025 09:26 AM EDT
--- OUTSIDE RECORDS SUMMARY | 2024-11-06 04:00 | XMS_ITS ---
Author Organization [facility] Address [address] [place] [address] Care Team Providers Care Grain Packer Name Role Phone Obdulia Linda Primary Care Provider Dakota Bonilla Unavailable [phone] REASON FOR VISIT EXT-45 MINUTES Encounters Encounter Location Date Provider Diagnosis [address] [place] [address] 11/06/2024 Dakota Bonilla Plan Of Treatment No Information Progress Notes * RIGO JEFFERSONDOB:05/1960 (64 yo M)Acc No.[id number]:11/06/2024 Patient: Mando BARROSRIGO TRAN Provider: Diana Bonilla DDS :1960 A ge:64 Y S ex:Male Date:11/06/2024 Address:[address] [place] [address] [place], [id number] Pcp:Obdulia Mercado Subjective: * Chief Complaints: * 1 . EXT-45 MINUTES. * Medical History: Objective: * Vitals: Assessment: Plan: * Treatment: * Images: * Electronic signature of Abundio Bonilla DDS on 01/30/2025 at 09:26 AM EDT Sign off status: Pending * Provider: Diana Bonilla DDS Date: 11/06/2024 Generated for Ankuri ng/Falyudmilag/eTransmitting on: 01/30/2025 09:26 AM EDT
--- OUTSIDE RECORDS SUMMARY | 2025-01-08 05:30 | XMS_ITS ---
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 Sewage Plant Operator Name Role Phone Nikunj Yanez MD Primary Care Provider Nahum silva Aly Mosley Unavailable [phone] Allergies No Known Allergies REASON FOR VISIT 3m F/U COPD/Diaphragm paralysis Medications Medication SIG (Take, Route, Frequency, Duration) Notes Start Date End Date Status Brovana 15 MCG/2ML 2mL Inhalation BID f or 30 days Active Testosterone Cypionate 200 MG/ML INJECT ONE-HALF ml INTRAMUSCULARLY EVERY 2 (TWO) weeks Intramuscular for 84 Days Active Ipratropium [place] 0.02 % 2.5mL Inhalat ion QID for [...] W/U Status Risk Notes Problem Pulmonary fibrosis (48798586) Pulmonary fibrosis, unspecified (J84.10) Active confirmed Vital [...] Encounter Location Date Provider Diagnosis Pulmonary Medicine [address] [address] 01/08/2025 Alykatharina Mosley Hemidiaphragm paraly sis J98.6 [...] year. 01/08/2025 Centrilobular emphysema (ICD-10 - J43.2) Qwpa-pg-cuwc performed today regarding continued need for nebulizer, [...] (ICD-10 - I25.10) Mild RCA disease on [facility] He does not qualify for any [...] 2mL Inhalation BID for 30 days Ipratropium [place] 0.02 % 2.5mL Inhalat ion QID for [...] program. Otherwise, F/U 1 year. Centrilobular emphysema Fjxi-br-hmmm performed today regarding continued need for nebulizer, [...] (coronary artery disease) Mild RCA disease on [facility] He does not qualify for any [...] Name:Aly Mosley, 01/14/2026 10:00:00 AM, [address] [place], [address], Procedure Notes * Category Sub-Category Detail Notes PFT Data: PFT 08/24/2024 - [facility]-FEV1/FVC: 81%-FEV1: 75%-FVC: 70%-Bronchodilator response: None-RV: 69%-T%-DLCO: 65%PFT 05/16/2018 - [facility]-FEV1/FVC: 77%-FEV1: 57%-FVC: 56%-DOQ13-70%: 58%-Bronchodilator response: None-RV: 87%-T%-DLCO: 66%PFT 03/14/2017 - [facility]-FEV1/FVC: 78%-FEV1: 52%-FVC: 51%-UWM21-64%: 52% -Bronchodilator response: Positive in XRC73-61% -RV: 118%-T%-DLCO: 45%PFT 12/05/2014 - [facility]-FEV1/FVC: 81%-FEV1: 60%-FVC: 56%-DCQ74-16%: 73% -Bronchodilator response: None -RV: 100%-T%-DLCO: 66% Progress Notes * Ryan PETE NDOB: (64 yo M)Acc No.[id number]:01/08/2025 Follow Up Patient: Ryan TALAMANTES N Provider: Sherri Mosley DO :1960 A ge:64 Y S ex:Male Date:01/08/2025 Address:[address] [place], [place] [id number] Pcp:Nikunj Yanez MD Check In:09:26 AM ESTCheck [...] use. Patient is under the care of [facility] Cardiology. * ROS: G [...] each nostril Nasally Twice a day Ipratropium [place]hall 0.02 % Solution 2.5 mL Inhalation QID [...] nostril Nasally Twice a day Taking Ipratropium [place]hall 0.02 % Solution 2.5 mL Inhalation QID [...] 30 days, 120 ML, Refills 12;?Continue Ipratropium [place] Solution, 0.02 %, 2.5mL, Inhalation, QID, 30 days, 300 ML, Refills 12.?Procedure: Pulmonary Rehabilitation* Phase 3 (if phase 2 not cove red by [employer]) Notes: Vblw-bn-rmho performed today regarding continued need for nebulizer, [...] artery disease)? Notes: Mild RCA disease on [facility] He does not qualify for any [...] [facility] -FEV1/FVC: 77% -FEV1: 57% -FVC: 56% -NRA85-25%: 58% -Bronchodilator response: None -RV: 87% -T% -DLCO: 66% PFT 03/14/2017 - [facility] -FEV1/FVC: 78% -FEV1: 52% -FVC: 51% -TYY56-81%: 52% -Bronchodilator response: Positive in KAR38-56% -RV: 118% -T% -DLCO: 45% PFT 12/05/2014 - [facility] -FEV1/FVC: 81% -FEV1: 60% -FVC: 56% -DRX20-90%: 73% -Bronchodilator response: None -RV: 100% -T% [...] Reason: D rug declined by patient B [place] ACTION PLAN Above Normal BMI Follow-up D ietary management education, guidance, and counseling * Follow Up: 1 Year (Reason: Diaphragm paralysis, COPD) * * Sign off status: Completed Visit Status: C HK (Check Out) true * Provider: Sherri Mosley DO Date: 0 01/08/2025 Generated for Christa herbert/Rodrigo/Letyitting on: 0 01/30/2025 09:26 AM EDT History and Physical Notes * [...] use. Patient is under the care of [facility] Cardiology. Examination Category Sub-Category Detail Notes Category Not es Exam GENERAL APPEARANCE: Appears stated age Skin Normal Mouth [place] and moist. Poor dentition Trachea Midline Chest [...]
--- OUTSIDE RECORDS SUMMARY | 2025-01-25 10:30 | XMS_ITS | Encounter Summary ---
Author Organization [facility] Address [address] [facility] [place] [address] Care Team Providers Care Contact Center Analyst Name Role Phone Rosa Barker MD Unavailable Nikunj Yanez MD Primary Care Provider [phone] Reason for Visit * Reason Comments Medicare Annual Wellness Visit Shefali t wellness Follow-up Would like adipex Encounter Details Date Type Department Care Team (Late st Contact Info) Description 01/25/2025 10:30 AM EDT [facility] [address] [place] [address] Nikunj Yanez MD [address] [place] [address] Encounter for Medicare annual wellness exam (Primary Dx); Primary hypertension (CMS/HCC); Class 1 obesity due to excess calories with serious comorbidity and body mass index (BMI) of 33.0 to 33.9 in adult; Chronic obstructive pulmonary disease, unspecified COPD type (CMS/HCC) Social History Tobacco Use Types Packs/Day Years Used Date Smoking Tobacco: Former Cigarettes Passive Smoke Exposure: Past Smokeless Tobacco: Never Alcohol Use Standard Drinks/Week Comments Never 0 (1 standard drink = 0.6 oz pur e alcohol) B1300 Health Literacy Answer Date Recor ded How often do you need to hav e someone help you when you read instructions, pamphlets, or other written material from your doctor or pharmacy? Patient declines to respond 06/05/2024 Humiliation, Afraid, Rape, and Kick questionnair e Answer Date Recorded Within the last year, have y ou been afraid of your partner or ex-partner? No 08/18/2023 Within the last year, have y ou been humiliated or emotionally abused in other ways by your partner or ex-partner? No Within the last year, have y ou been kicked, hit, slapped, or otherwise physically hurt by your partner or ex-partner? No 08/18/2023 Within the last year, have y ou been raped or forced to have any kind of sexual activity by your partner or ex-partner? No 08/18/2023 Social Connection and Isolat ion Panel [NHANES] Answer Date Recorded In a typical week, how many times do you talk on the phone with family, friends, or neighbors? Never 06/05/2024 How often do you get togethe r with friends or relatives? Twice a week 06/05/2024 How often do you attend chur or catholic services? More than 4 times per year 06/05/2024 Do you belong to any clubs o r organizations such as scientologist groups, unions, fraternal or athletic groups, or school groups? No 06/05/2024 How often do you attend meet ings of the clubs or organizations you belong to? Never 06/05/2024 Are you , , di vorced, , never , or living with a partner? 06/05/2024 AUDIT-C Answer Date Recorded Q1: How often do you have a drink containing alcohol? Never 06/05/2024 Q2: How many drinks containi ng alcohol do you have on a typical day when you are drinking? Patient does not drink Q3: How often do you have si x or more drinks on one occasion? Never 06/05/2024 Overall Financial Resource Strain (CARDIA) Answe r Date Recorded How hard is it for you to pa y for the very basics like food, housing, medical care, and heating? Not hard at all 06/05/2024 PHQ-2 Answer Date Recorded Patient Health Questionnaire-2 Score 0 01/25/2025 [facility] - Occupational Stress Questionnaire Answer Date Recorded Do you feel stress - tense, restless, nervous, or anxious, or unable to sleep at night because your mind is troubled all the time - these days? Patient declined 06/05/2024 Exercise Vital Sign Answer Date Recorde d On average, how many days pe r week do you engage in moderate to strenuous exercise (like a brisk walk)? 0 days On average, how many minutes do you engage in exercise at this level? Patient declined 06/05/2024 Hunger Vital Sign Answer Date Recorded Within the past 12 months, y ou worried that your food would run out before you got the money to buy more. Never true 06/05/20 24 Within the past 12 months, t he food you bought just didn't last and you didn't have money to get more. Never true 06/05/2024 PRAPARE - Transportation Answer Date Re corded In the past 12 months, has l ack of transportation kept you from medical appointments or from getting medications? No 09/2023 In the past 12 months, has l ack of transportation kept you from meetings, work, or from getting things needed for daily living? No 06/05/2024 Housing Stability Vital Sign Answer Naseem e Recorded In the last 12 months, was t here a time when you were not able to pay the mortgage or rent on time? No 08/18/2023 In the last 12 months, how many places have you lived? 1 08/18/2023 In the last 12 months, was t here a time when you did not have a steady place to sleep or slept in a halfway (including now)? No 08/18/2023 Housing Stability Vital Sign Answer Naseem e Recorded In the last 12 months, was t here a time when you were not able to pay the mortgage or rent on time? No 06/05/2024 Number of Times Moved in the Last Year Not on fi le 06/05/2024 At any time in the past 12 m [facility], were you homeless or living in a halfway (including now)? No 06/05/2024 Sex and Gender Information Value Date Recorded Sex Assigned at Not on file Legal Sex Male 7:09 PM EDT Gender Identity Not on file Sexual Orientation Not on file documented as of this encounter Last Filed Vital Signs Vital Sign Reading Time Taken Comments Blood Pressure 142/88 01/25/2025 10:24 AM EDT Pulse 84 01/25/2025 10:24 AM EDT Temperature 36.6 C (97.8 F) 01/25/2025 10:24 AM EDT Respiratory Rate 18 01/25/2025 10:24 AM EDT Oxygen Saturation 97% 01/25/2025 10:24 AM EDT Inhaled Oxygen Concentration - - Weight 111 kg (244 lb) 01/25/2025 10:24 AM EDT Height 182.9 cm (6') 01/25/2025 10:24 AM EDT Body Mass Index 33.09 01/25/2025 10:24 AM EDT documented in this encounter Functional Status * Over the past 2 weeks, how often have you been bothered by any of the following problems? Question Answer Date of Assessment Author Little interest or pleasure in doing things Not at all 01/25/2025 10:00 AM DEEPTHI DIAS Feeling down, depressed, or hopeless Not at all 01/04 10:00 AM DEEPTHI DIAS Patient Health Questionnaire-2 Score 0 01/04 10:00 AM DEEPTHI DIAS * Question Answer Date of Assessment Author Trouble falling or staying a sleep, or sleeping too much Several days 01/25/2025 10:00 AM DEEPTHI DIAS Feeling tired or having alex le energy Several days 01/25/2025 10:00 AM DEEPTHI DIAS Poor appetite or overeating Not at all 01/25/2025 10 :00 AM DEEPTHI DIAS Feeling bad about yourself - or that you are a failure or have let yourself or your family down Not at all 01/25/2025 10:00 AM DEEPTHI DIAS Trouble concentrating on thi ngs, such as reading the newspaper or watching television Not at all 01/25/2025 10:00 AM DEEPTHI DIAS Moving or speaking so slowly that other people could have noticed? Or the opposite - being so fidgety or restless that you have been moving around a lot more than usual. Not at all 01/25/2025 10:00 AM DEEPTHI DIAS Thoughts that you would be b alberta off or hurting yourself in some way Not at all 01/25/2025 10:00 AM DEEPTHI DIAS Patient Health Questionnaire -9 Score 2 01/25/2025 10:00 AM EDT DEEPTHI LUO documented as of this encounter Progress Notes * Nikunj Yanez MD - 01/25/2025 11:10 AM EDTAssociated Problem(s): Encounter for Medicare annual wellness exam Reviewed labs. Discussed proper diet and regular aerobic exercise. Need aerobic exercise 5-6 days aweek for 30 minutes at a time. Smaller portions and limit total calories. Colonoscopy every 10 years. Tetanus every 10 years. Advised not to smoke. * Nikunj Yanez MD - 01/25/2025 11:10 AM EDTAssociated Problem(s): Class 1 obesity due to excess calories with serious comorbidity and body mass index (BMI) of 33.0 to 33.9 in adult Patient overweight and difficult time losing weight. Discussed proper diet and regular aerobic exercise. Recommend Weight Watchers and need to limit calories and smaller portions. Need to increase activity and regular aerobic exercise several days a week for 30 minutes at a time. Interested in adipex and warned of potential cardiac side effects. Script written for first month and will need to recheck weight in 1 month. OARRS reviewed. Continue medications as prescribed. * Nikunj Yanez MD - 01/25/2025 11:09 AM EDTAssociated Problem(s): Chronic obstructive lung disease ([facility]) Follow up with pulmonology. * Nikunj Yanez MD - 01/25/2025 10:30 AM EDT Subjective Patient ID: Ryan Pete is a 64 y.o. male who presents for Medicare Annual Wellness Visit Subsequent (wellness) and Follow-up (Would like adipex). Presents for medicare annual wellness visit. Weight up 44 pounds in past year. Back pain worse and not as active. Still tries to walk. Tries to watch diet and eat healthy. Increased fruits and vegetables. Smaller portions and limits snacking. Tries to limit total daily calories. Requests adipex. Reviewed labs. Following with pulmonology for COPD. Review of Systems Constitutional: Negative for fatigue. Respiratory: Negative for cough, shortness of breath and wheezing. Cardiovascular: Negative for chest pain and palpitations. Gastrointestinal: Negative for abdominal pain, diarrhea, nausea and vomiting. Genitourinary: Negative for dysuria. Objective Physical Exam Constitutional: General: He is not in acute distress. Appearance: Normal appearance. HENT: Head: Normocephalic. Right Ear: Tympanic membrane and ear canal normal. Left Ear: Tympanic membrane and ear canal normal. Eyes: Extraocular Movements: Extraocular movements intact. Pupils: Pupils are equal, round, and reactive to light. Cardiovascular: Rate and Rhythm: Normal rate and regular rhythm. Heart sounds: No murmur heard. No friction rub. No gallop. Pulmonary: Breath sounds: Normal breath sounds. No wheezing, rhonchi or rales. Abdominal: General: Bowel sounds are normal. There is no distension. Palpations: Abdomen is soft. Tenderness: There is no abdominal tenderness. There is no guarding or rebound. Musculoskeletal: General: Normal range of motion. Left lower leg: No edema. Neurological: General: No focal deficit present. Mental Status: He is alert. Cranial Nerves: No cranial nerve deficit. Deep Tendon Reflexes: Reflexes normal. Assessment/Plan Problem List Items Addressed This Visit Chronic obstructive lung disease ([facility]) Follow up with pulmonology. Hypertensive disorder ([facility]) Encounter for Medicare annual wellness exam - Primary Reviewed labs. Discussed proper diet and regular aerobic exercise. Need aerobic exercise 5-6 days aweek for 30 minutes at a time. Smaller portions and limit total calories. Colonoscopy every 10 years. Tetanus every 10 years. Advised not to smoke. Class 1 obesity due to excess calories with serious comorbidity and body mass index (BMI) of 33.0 to 33.9 in adult Patient overweight and difficult time losing weight. Discussed proper diet and regular aerobic exercise. Recommend Weight Watchers and need to limit calories and smaller portions. Need to increase activity and regular aerobic exercise several days a week for 30 minutes at a time. Interested in adipex and warned of potential cardiac side effects. Script written for first month and will need to recheck weight in 1 month. OARRS reviewed. Continue medications as prescribed. Relevant Medications phentermine 37.5 MG capsule documented in this encounter Plan of Treatment Upcoming Encounters Date Type Department Care Team (Late st Contact Info) Description 03/19/2025 10:30 AM EDT Office Visit [facility] [address] [place] [address] Husam Muñoz MD [address] [place] [address] 03/19/2025 10:45 AM EDT [facility] [address] [place] [id number] Nikunj Yanez MD [address] [place] [address] documented as of this encounter Visit Diagnoses Diagnosis Encounter for Medicare annual wellness exam- Primary Primary hypertension (CMS/HCC) Unspecified essential hypertension Class 1 obesity due to excess calories with serious comorbidity and body mass index (BMI) of 33.0 to 33.9 in adult Chronic obstructive pulmonary disease, unspecified COPD type (CMS/HCC) documented in this encounter Additional Health Concerns Assessment Noted Time PHQ-9 Depression Total Score: 2 01/26/20 25 10:00 AM EDT documented as of this encounter Care Teams Contact Center Analyst Relationship Specialty Start Date End Date Rosa Barker MD [address] [place] [address] PCP - Devoted 09/05/22 Nikunj Yanez MD [address] [place] [address] PCP - General Family Medicine 04/09/24 documented as of this encounter
--- OUTSIDE RECORDS SUMMARY | 2025-01-30 09:26 | XMS_ITS | Patient Health Record ---
Author Organization [facility] es Address [address] [place] [address] Care Team Providers Care Lace Tearing Supervisor Name Role Phone Obdulia Linda Primary Care Provider Dakota Bonilla Unavailable [phone] Portillo Corona Unavailable [phone] Reason For Referral No Information Encounters Encounter Location Date Provider Diagnosis [facility] [address] [place] [address] 05/30/2024 Dakota Bonilla [address] [place] [address] 05/30/2024 Dakota Bonilla Encounter for dental examination and cleaning with abnormal findings Z01.21 ; Other dental procedure status Z98.818 ; Cracked tooth K03.81 and Complete loss of teeth, unspecified cause, class I K08.101 Assessments Encounter Date Diagnosis (ICD Code) Assessment Notes Treatment Notes Treatment Clinical Notes Section Notes 05/30/2024 Encounter for dental examination and cleaning with abnormal findings (ICD-10 - Z01.21) 05/30/2024 Other dental procedure status (ICD-10 - Z98.818) 05/30/2024 Cracked tooth (ICD-10 - K03.81) 05/30/2024 Complete loss of teeth, unspecified cause, class I (ICD-10 - K08.101) Plan Of Treatment No Information Insurance Providers Payer Name Payer Address Payer Phone Subscriber Number Group Number Insured Name Patient Relationship to Insured Coverage Start Date Coverage End Date [employer] [address] [place] [phone] [id number] RIGO DALEY Self - patient is the insured 3
--- OUTSIDE RECORDS SUMMARY | 2025-01-30 09:26 | XMS_ITS | Clinical Summary ---
Author Organization [facility] Address [address] [place] [id number] Care Team Providers Care Table Top Tile Setter Name Role Phone Tonny Hernandez MD Unavailable [phone] Medications atenolol (TENORMIN) 25 mg tablet Take 25 mg by mouth once daily. Active atorvastatin (LIPITOR) 20 mg tablet Take 20 mg by mouth once daily. Active cetirizine-pse udoephedrine (ZYRTEC-D) 5-120 mg per tablet Take 1 tablet by mouth two times a day. Active clarithromycin (BIAXIN) 250 mg tablet Take 250 mg by mouth once daily. Active diazePAM (VALIUM) 10 mg tablet Take 10 mg by mouth. 04/02/20 24 Active fluticasone (FLONASE) 50 mcg/actuation nasal spray 2 Sprays. 03/15/20 23 Active meloxicam (MOBIC) 15 mg tablet Take 15 mg by mouth. 04/10/20 24 Active montelukast (SINGULAIR) 10 mg tablet Take 10 mg by mouth once daily. Active oxyCODONE-acet aminophen (PERCOCET) 5-325 mg tablet Take 1 tablet by mouth four times a day as needed. Active testosterone cypionate (DEPO-TESTOSTE JOSI) 200 mg/mL injection Inject 100 mg intramuscularly every 4 weeks. 12/12/19 24 Active zonisamide (ZONEGRAN) 50 mg capsule 50 mg. Active Social History Tobacco Use Types Packs/Day Years Used Date Smoking Tobacco: Never Assessed Area Deprivation Index Answer Date Haydre rded National Score (1-100), lower number is lower ri sk 74 05/31/2024 State Score (1-10), lower number is lower risk 6 05/31/2024 Data from: https://www.neighborhoodatlas.medicine.[facility]/. Last address used for calculation [address] 05/31/2024 Sex and Gender Information Value Date Recorded Sex Assigned at Not on file Legal Sex Male 9:51 AM EST Gender Identity Not on file Sexual Orientation Not on file Plan of Treatment Health Maintenance Due Date Last Done Comments Anxiety Screening 1977 Depression Screening 1977 HIV Screening 1977 Hepatitis C Screening 1977 DTaP,Tdap,Td Vaccine (1 - Tdap) [address] Colonography 2004 Cologuard (FIT-DNA) 2004 Colonoscopy 2004 Colorectal Cancer Screening 2004 Fecal Occult Blood 2004 Prostate Cancer Screening Discussion 2004 Sigmoidoscopy 2004 Pneumococcal Vaccine: 50+ (1 of 1 - PCV) 2009 Shingrix Vaccine (1 of 2) 2009 Diabetes Screening 02/13/2024 02/12/2021, 01/27/2021 Covid-19 Vaccine ( - 2023- season) 2024 Advance Directive Discussion 09/05/2024 Influenza Vaccine (Season Ended) 2025 RSV Vaccine (1 - 1-dose 75+ series) 2034 Insurance ED [facility] HMO Care Teams Table Top Tile Setter Relationship Specialty Start Date End Date Tonny Hernandez MD [address] [place] [address] Referring Pain Management 04/16/24
--- OUTSIDE RECORDS SUMMARY | 2025-01-30 09:26 | XMS_ITS | Clinical Summary ---
Author Organization [facility] Address [address] [place] [address] Care Team Providers Care Police Commanding Officer Name Role Phone Unavailable Primary Care Provider Unavailabl e Social History Tobacco Use Types Packs/Day Years Used Date Smoking Tobacco: Never Assessed Sex and Gender Information Value Date Recorded Sex Assigned at Not on file Legal Sex Male 5:36 AM EST Gender Identity Not on file Sexual Orientation Not on file Plan of Treatment Health Maintenance Due Date Last Done Comments HEPATITIS C VIRUS SCREENING 1959 TETANUS 1959 TDAP (ADULT) 1978 LIPID SCREENING 1999 COLORECTAL CANCER SCREENING DISCUSSION 2004 PNEUMOCOCCAL VACCINE SERIES (1 of 1 - PCV) 2009 ZOSTER (SHINGLES) VACCINE (1 of 2) 2009 PROSTATE CANCER SCREENING DISCUSSION 2014 ABDOMINAL AORTIC ANEURYSM HI GH RISK SCREEN 2024 COVID-19 VACCINE ( - 2023-2 5 season) 2024 INFLUENZA VACCINE (Season Ended) 2025 RSV VACCINE (1 - 1-dose 75+ series) 2034 HEP B VACCINE Aged Out No longer shrutig van based on patient's age to complete this topic
--- OUTSIDE RECORDS SUMMARY | 2025-01-30 09:26 | XMS_ITS | Encounter Summary ---
Author Organization [facility] Address [address] [place] [address] Care Team Providers Care Acid Cleaner Name Role Phone Rosa Barker MD Unavailable Shaikh CURRY Malik Primary Care Provider [phone] Nikunj Yanez MD Primary Care Provider [phone] Sandee Santoyo NP Unavailable Encounter Details Date Type Department Care Team (Late st Contact Info) Description 12/05/2023 Clinisync Result Encounter [facility] External Department Unsolicited Provider, Generic External Data Social History Tobacco Use Types Packs/Day Years Used Date Smoking Tobacco: Former Cigarettes Smokeless Tobacco: Never Alcohol Use Standard Drinks/Week Comments Never 0 (1 standard drink = 0.6 oz pur e alcohol) Humiliation, Afraid, Rape, and Kick questionnair e [...] the phone with family, friends, or neighbors? Once a week 08/18/2023 How often do you get togethe r with friends or relatives? Never 08/18/2023 How often do you attend chur or voodoo services? More than 4 times per year 08/18/2023 Do you belong to any clubs o r organizations such as scientologist groups, unions, fraternal or athletic groups, or school groups? No 08/18/2023 How often do you attend meet ings of the clubs or organizations you belong to? Never 08/18/2023 Are you , , di vorced, , never , or living with a partner? 08/18/2023 AUDIT-C Answer Date Recorded Q1: How often do you have a drink containing alcohol? Never 08/18/2023 Q2: How many drinks containi ng alcohol do you have on a typical day when you are drinking? Patient does not drink Q3: How often do you have si x or more drinks on one occasion? Never 08/18/2023 Overall Financial Resource Strain (CARDIA) Answe r Date Recorded How hard is it for you to pa y for the very basics like food, housing, medical care, and heating? Not hard at all 08/18/2023 PHQ-2 Answer Date Recorded Patient Health Questionnaire-2 Score 2 08/18/2023 [facility] - Occupational Stress Questionnaire Answer Date Recorded Do you feel stress - tense, restless, nervous, or anxious, or unable to sleep at night because your mind is troubled all the time - these days? Not at all 08/18/2023 Exercise Vital Sign Answer Date Recorde d On average, how many days pe r week do you engage in moderate to strenuous exercise (like a brisk walk)? 0 days 08/18/2023 On average, how many minutes do you engage in exercise at this level? 0 min 08/18/2023 Hunger Vital Sign Answer Date Recorded Within the past 12 months, y ou worried that your food would run out before you got the money to buy more. Never true 08/18/20 23 Within the past 12 months, t he food you bought just didn't last and you didn't have money to get more. Never true 08/18/2023 PRAPARE - Transportation Answer Date Re corded In the past 12 months, has l ack of transportation kept you from medical appointments or from getting medications? No 08/05 In the past 12 months, has l ack of transportation kept you from meetings, work, or from getting things needed for daily living? No 08/18/2023 Housing Stability Vital Sign Answer [...] place to sleep or slept in a penitentiary (including now)? No 08/18/2023 Sex and Gender Information Value Date Recorded Sex Assigned at Not on file Legal Sex Male 7:09 PM EDT Gender Identity Not on file Sexual Orientation Not on file documented as of this encounter Plan of Treatment Upcoming Encounters Date Type Department Care Team (Late st Contact Info) Description 03/19/2025 10:30 AM EDT Office Visit [facility] [address] [place] [address] Husam Muñoz MD [address] [place] [address] 03/19/2025 10:45 AM EDT [facility] [address] [place] [address] Nikunj Yanez MD [address] [place] [address] documented as of this encounter Procedures Procedure Name Priority Date/Time Associated Diagnosis Comments XR HIPS BILATERAL 2 VW WITH OR WITHOUT PELVIS 12/05/2023 10:52 AM EDT documented in this encounter Results * XR hips bilateral 2 views (12/05/2023 10:52 AM EDT) Anatomical Region Laterality Modality Lower Extremities, Hip Bilateral Radiograp hic Imaging 12/05/2023 10:5 2 AM EDT Narrative 12/05/2023 10:55 [place] [address] XRay Report Signed Patient: RIGO PETE MR#: [id number] : 1960 Acct:[id number] Age/Sex: 63 / M ADM Date: 12/03/23 Loc: [facility] Attending Dr: Pedro Del Real NP Ordering Physician: Pedro Del Real NP Date of Service: 12/03/23 Procedure(s): XR hip LUANN Accession Number(s): [id number] cc: Shaikh Meka Malik; Pedro Del Real NP [place] [address] Patient Name: RIGO PETE MRN: [id number] date: 1960 Sex: M Assigned Patient Location: [facility] Current Patient Location: Accession/Order Number: [id number] Exam Date: 12/03/2023 15:20 Report Date: 12/05/2023 10:52 At the request of: PEDRO DEL REAL Procedure: XR hip LUANN PROCEDURE: XR hip LUANN HISTORY: Bilateral hip pain COMPARISON: None. FINDINGS: BONES:Tiny degenerative osteophytes along superior acetabulum bilaterally. No fracture, dislocation, bone lesion. No significant joint space narrowing or articular surface irregularity. SOFT TISSUES:No visible soft tissue swelling. EFFUSION:None visible. OTHER: Negative. XR/XR hip LUANN IMPRESSION: 1. No acute abnormality. 2. Minimal degenerative changes. Electronically authenticated by: KIAN TINAJERO Date: 12/05/2023 10:52 Dictated By: Kian Tinajero M.D. Signed By: 12/05/23 1055 DD/ 1052 TD/TT: Flow Specialist: Procedure Note Radiology, Radiologist, MD - 12/08/2023 [facility] [place] [id number] XRay Report Signed Patient: RIGO PETE NMR#: [id number] : 1960cct:[id number] Age/Sex: 63 / MADM Date: 12/03/23 Loc: [facility] Attending Dr: Pedro Del Real QA REVIEWER Ordering Physician: Pedro Del Real NP Date of Service: 12/03/23 Procedure(s): XR hip LUANN Accession Number(s): [id number] cc: Shaikh Meka Malik; Pedro Del Real NP [place] [id number] Patient Name: RIGO PETE MRN: [id number] date: 1960 Sex: M Assigned Patient Location: [facility] Current Patient Location: Accession/Order Number: [id number] Exam Date: 12/03/2023 15:20 Report Date: 12/05/2023 10:52 At the request of: PEDRO DEL REAL Procedure: XR hip LUANN PROCEDURE: XR hip LUANN HISTORY: Bilateral hip pain COMPARISON: None. FINDINGS: BONES:Tiny degenerative osteophytes along superior acetabulum bilaterally.No fracture, dislocation, bone lesion. No significant joint space narrowingor articular surface irregularity. SOFT TISSUES:No visible soft tissue swelling. EFFUSION:None visible. OTHER: Negative. XR/XR hip LUANN IMPRESSION: 1. No acute abnormality. 2. Minimal degenerative changes. Electronically authenticated by: KIAN TINAJERO Date: 12/05/2023 10:52 Dictated By: Kian Tinajero M.D. Signed By:12/05/23 1055 DD/ 1052 TD/TT: Flow Specialist: Generic External Data Provider IMG XR PROCEDURES Final Result documented in this encounter Visit Diagnoses Not on filedocumented in this encounter Care Teams Acid Cleaner Relationship Specialty Start Date End Date Rosa Barker MD [address] [place] [address] PCP - Devoted 09/05/22 Shaikh Malik MD [address] [place] [address] PCP - General Internal Medicine 11/23/23 04/08/24 Nikunj Yanez MD [address] [place] [address] PCP - General Family Medicine 04/09/24 Sandee Santoyo NP [address] [place] [address] Nurse Practitioner Family Medicine 04/09/24 11/21/24 documented as of this encounter
--- OUTSIDE RECORDS SUMMARY | 2025-01-30 09:26 | XMS_ITS | Referral Summary ---
Author Organization [facility] Address [address] [place] [address] Care Team Providers Care Group Captain Name Role Phone Nikunj Yanez MD Primary Care Provider [phone] Encounters Date Type Department Care Team Description 01/11/2025 10:00 AM EDT Office Visit [facility] [place] [address] [place] [address] Jr Manazno MD Dyspnea on exertion (Primary Dx); Coronary artery disease involving atka coronary artery of atka heart without angina pectoris; Benign hypertensive 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; Pure hypercholesterolemia; Chronic obstructive pulmonary disease, unspecified COPD type (CMS/HCC); Obstructive sleep apnea syndrome; Class 1 obesity due to excess calories without serious comorbidity with body mass index (BMI) of 31.0 to 31.9 in adult from Last 3 Months Allergies No known active allergies Medications Medication Sig Dispensed Refills Start Date End Date Status clarithromycin (Biaxin) 250 mg tablet 02/21/2024 Active montelukast (Singulair) 10 mg tablet Take 10 mg by mouth in the morning. 02/23/2024 Active oxyCODONE-acetaminop hen (Percocet) 5-325 mg tablet Take 1 tablet every 6 hours by oral route for 30 days. Active atenolol (Tenormin) 25 mg tabletIndications:Be nign hypertensive 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 Take 1 tablet (25 mg) by mouth once daily as directed. 90 tablet 3 05/14/2024 Active cetirizine (ZyrTEC) 10 mg tablet Take 10 mg by mouth in the morning. Active testosterone cypionate (Depo-Testosterone) 200 mg/mL injection Inject 100 mg into the shoulder, thigh, or buttocks every 28 (twenty-eight ) days. 12/12/2023 Active atorvastatin (Lipitor) 40 mg tabletIndications:Hy perlipidemia, unspecified hyperlipidemia type Take 1 tablet (40 mg) by mouth in the morning. 90 tablet 3 09/19/2024 6 Active aspirin 81 mg EC tabletIndications:Co ronary artery disease involving atka coronary artery of atka heart without angina pectoris Take 1 tablet (81 mg) by mouth in the morning. 01/11/2025 6 Active atorvastatin (Lipitor) 20 mg tablet Take 20 mg by mouth at bedtime. 02/23/2024 5 Discontinued meloxicam (Mobic) 15 mg tablet Take 7.5 mg by mouth two times daily. 04/10/2024 5 Discontinued phentermine (Adipex-P) 37.5 mg tablet Take 37.5 mg by mouth before breakfast. 07/09/2024 5 Discontinued Active Problems Problem Noted Date Diagnosed Date Decreased libido 08/09/2024 Hypopituitarism 08/09/2024 Paralyzed hemidiaphragm 06/06/2024 Coronary artery disease invo lving atka coronary artery of atka heart without angina pectoris 05/15/2024 Benign hypertensive heart di sease without congestive heart failure 05/15/2024 Chest pain 05/14/2024 Chronic pain syndrome 05/14/2024 Overview (05/14/2024): Last Assessment & Plan: R/T severe lumbar stenosis Pain management referred [facility] for further management. Still following with Pain Management- Dr. Stacy. Had epidural last Tuesday- feels pain is well managed since. Taking Oxycodone Q6H PRN- Pain Management prescribes. Dyspnea on exertion 05/14/2024 Class 1 obesity due to exces s calories without serious comorbidity with body mass index (BMI) of 31.0 to 31.9 in adult 12/29/2023 Overview (05/14/2024): Last Assessment & Plan: Discussed with patient their BMI (actual, verses [...] approves. Will discuss again at next OV. Encounter for Medicare annual wellness exam 08/05 Overview (05/14/2024): Last Assessment & Plan: Patient seen today for Medicare Wellness. Reviewed medical, surgical and social hx. Reviewed medications. BP above goal but for now, will monitor and assess/periodically evaluate. Patient also reported weight gain of about 20 lbs and asked for a Adapex prescription to help him get back on the right path. He had just lost about 60 lbs on it. Refusing vaccinations. He was referred to GI for Colonoscopy. Chronic seasonal allergic rhinitis 08/18/2023 Overview (05/14/2024): Last Assessment & Plan: Cetirizine D and Flonase daily. Feels symptoms are well managed. Continue current regimen. Last Assessment & Plan: Poorly controlled symptoms - has sinus pressure, nasal congestion and rhinorrhea. Switch to zyrtec-pseudo Discontinue cindy. Hyperlipidemia 08/18/2023 Overview (05/14/2024): Last Assessment & Plan: Currently taking Atorvastatin 20mg Denies myalgias. Most recent Lipid Panel WNL. Continue current regimen; Hypertensive disorder 08/18/2023 Overview (05/14/2024): Last Assessment & Plan: Currently taking no medications; All were stopped by previous provider in February d/t pt having excessively low BP readings. Referral sent to Dr. Negron- Cardiology. Pt first appt on 05/14/2024; Will continue to keep off of all medications until advised by cardiology Checks BP at home; Averages are 120's/130's; Denies orthostatic changes, dizziness, cough, shortness of breath, swelling in extremities. Primary hypogonadism in male 08/18/2023 Overview (05/14/2024): Last Assessment & Plan: Follows Endocrinology for testosterone replacement therapy. Weight gain 08/18/2023 Overview (05/14/2024): Last Assessment & Plan: Patient had lost about 60 lbs with lifestyle measures, changes in his diet and Adapex. But gained about 20 lbs back. He is requesting another prescription for a month to help him get back on the right path. Will order a 30 day supply for him. Patient counseled and educated on adverse effects, drug interactions and to reach out to office/pharmacy if questions or concerns related to new medications. Impingement syndrome of shoulder region 12/07/19 17 Chronic obstructive lung disease 11/24/2016 Overview (05/14/2024): Last Assessment & Plan: Does not follow pulmonolgy; Has not had any PFT's recently. Takes Singulair. No inhalers at this time. States inhalers were too expensive. Feels his symptoms are well managed. Except in excess humidity and warmer weather. Obstructive sleep apnea syndrome 11/24/2016 Social History Tobacco Use Types Packs/Day Years Used Date Smoking Tobacco: Former Cigarettes Q uit: 2009 Smokeless Tobacco: Never Tobacco Cessation:Counseling Given: Not Answered Sex and Gender Information Value Date Recorded Sex Assigned at Not on file Gender Identity Not on file Sexual Orientation Not on file Last Filed Vital Signs Vital Sign Reading Time Taken Comments Blood Pressure 142/84 01/11/2025 10:14 AM EDT Pulse 79 01/11/2025 10:14 AM EDT Temperature - - Respiratory Rate - - Oxygen Saturation 96% 01/11/2025 10:06 AM EDT Inhaled Oxygen Concentration - - Weight 111 kg (244 lb) 01/11/2025 10:06 AM EDT Height 182.9 cm (6') 01/11/2025 10:06 AM EDT Body Mass Index 33.09 01/11/2025 10:06 AM EDT Plan of Treatment Not on file Care Teams Group Captain Relationship Specialty Start Date End Date Nikunj Yanez MD [address] [place] [address] PCP - General Family Medicine 07/11/24
--- OUTSIDE RECORDS SUMMARY | 2025-01-30 09:26 | XMS_ITS | Encounter Summary ---
Author Organization [facility] Address [address] [place] [address] Care Team Providers Care Manager Utilization Management Name Role Phone Rosa Barker MD Unavailable Shaikh CURRY Malik Primary Care Provider [phone] Shaikh CURRY Malik Primary Care Provider [phone] Nikunj Yanez MD Primary Care Provider [phone] Sandee Santoyo NP Unavailable [phone] Encounter Details Date Type Department Care Team (Late st Contact Info) Description 11/03/[address] [facility] [address] [facility] [address] [place] [address] Miguel Huffman DO [address] [facility] [address] [place] [address] Social History Tobacco Use Types Packs/Day Years [...] Never 08/18/2023 How often do you attend [facility] or restoration services? More than 4 times per year 08/18/2023 Do you belong to any clubs o r organizations such as taoism groups, unions, fraternal or athletic groups, or [...] Recorded Patient Health Questionnaire-2 Score 2 08/18/2023 [facility] - Occupational Stress [...] place to sleep or slept in a senior living (including now)? No 08/18/2023 Sex and Gender [...] Visit [facility] [address] [place] [address] Husam Muñoz MD [address] [place] [address] 03/19/2025 10:45 AM EDT Office Visit [facility] [address] [place] [address] Nikunj Yanez MD [address] [place] [address] documented as of this encounter Procedures Procedure Name Priority Date/Time Associated Diagnosis Comments COLONOSCOPY Routine 11/01/2023 11:53 AM EST documented in this encounter Results * Colonoscopy (11/01/2023 11:53 AM EST) Anatomical Region Laterality Modality Endoscopy Miguel Enriquez Nathanael DO ENDOSCOPY PROCEDURE ORDER JACQUI Final Result documented in this encounter Visit Diagnoses Not on filedocumented in this encounter Care Teams Manager Utilization Management Relationship Specialty Start Date End Date Rosa Barker MD [address] [facility] [address] [place] [address] PCP - Devoted 09/05/22 Shaikh Malik MD [address] [facility] [address] [place] [address] PCP - General Internal Medicine 09/22/23 11/22/23 Shaikh Malik MD [address] [place] [address] PCP - General Internal Medicine 11/23/23 04/08/24 Nikunj Yanez MD [address] [place] [address] PCP - General Family Medicine 04/09/24 Sandee Santoyo NP [address] [place] [address] Nurse Practitioner Family Medicine 04/09/24 11/21/24 documented as of this encounter
--- OUTSIDE RECORDS SUMMARY | 2025-01-30 09:26 | XMS_ITS | Encounter Summary ---
Author Organization [facility] Address [address] [facility] [place] [address] Care Team Providers Care Coater Carbon Paper Name Role Phone Rosa Barker MD Unavailable Shaikh CURRY Malik Primary Care Provider [phone] Shaikh CURRY Malik Primary Care Provider [phone] Nikunj Yanez MD Primary Care Provider [phone] Sandee Santoyo NP Unavailable [phone] Encounter Details Date Type Department Care Team (Late st Contact Info) Description 10/12/2023 Orders Only [facility] [address] [place] [address] Shaikh Malik MD [address] [place] [address] Social History Tobacco Use Types Packs/Day Years [...] How often do you attend chur or christianity services? More than 4 times per year [...] Recorded Patient Health Questionnaire-2 Score 2 08/18/2023 [facility] - Occupational [...] place to sleep or slept in a nursing home (including now)? No 08/18/2023 Sex and Gender [...] [facility] [address] [place] [address] Husam Muñoz MD [address] [place] [address] 03/19/2025 10:45 AM EDT Office Visit [facility] [address] [place] [address] Nikunj Yanez MD [address] [place] [address] documented as of this encounter Procedures Procedure Name Priority Date/Time Associated Diagnosis Comments US SCROTUM Routine 06/09/2023 8:08 AM EDT documented in this encounter Results * US scrotum (06/09/2023 8:08 AM EDT) Anatomical Region Laterality Modality Body Ultrasound Shaikh Helena ZAPIEN IMG US PROCEDURES Final Result documented in this encounter Visit Diagnoses Not on filedocumented in this encounter Care Teams Coater Carbon Paper Relationship Specialty Start Date End Date Rosa Barker MD [address] [facility] [address] [place] [address] PCP - Devoted 09/05/22 Shaikh Malik MD [address] [facility] [address] [place] [address] PCP - General Internal Medicine 09/22/23 11/22/23 Shaikh Malik MD [address] [place] [address] PCP - General Internal Medicine 11/23/23 04/08/24 Nikunj Yanez MD [address] [place] [address] PCP - General Family Medicine 04/09/24 Sandee Santoyo NP [address] [place] [address] Nurse Practitioner Family Medicine 04/09/24 11/21/24 documented as of this encounter
--- OUTSIDE RECORDS SUMMARY | 2025-01-30 09:26 | XMS_ITS | Clinical Summary ---
Author Organization [facility] Address [address] [place] [address] Care Team Providers Care Surveyor Hydrographic Name Role Phone Nikunj Yanez MD Primary Care Provider [phone] Allergies No known active allergies Medications Medication [...] daily as directed. 90 tablet 3 05/14/2024 5 Active cetirizine (ZyrTEC) 10 mg tablet Take [...] mg EC tabletIndications:Co ronary artery disease involving ramona coronary artery of ramona heart without angina pectoris Take 1 tablet [...] hemidiaphragm 06/06/2024 Coronary artery disease invo lving ramona coronary artery of ramona heart without angina pectoris 05/15/2024 Benign hypertensive heart di sease without congestive heart failure 05/15/2024 Chest pain 05/14/2024 Chronic pain syndrome 05/14/2024 Overview (05/14/2024): Last Assessment & Plan: R/T severe lumbar stenosis Pain management referred to [facility] for further management. Still [...] warmer weather. Obstructive sleep apnea syndrome 11/24/2016 Encounters Date Type Department Care Team Description 01/11/2025 10:00 AM EDT Office Visit [place] [address] [place] [address] Jr Manzano MD Dyspnea on exertion (Primary Dx); Coronary artery disease involving ramona coronary artery of ramona heart without angina pectoris; Benign hypertensive 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; Pure hypercholesterolemia; Chronic obstructive pulmonary disease, unspecified COPD type (CMS/HCC); Obstructive sleep apnea syndrome; Class 1 obesity due to excess calories without serious comorbidity with body mass index (BMI) of 31.0 to 31.9 in adult from Last 3 Months Family History Medical History Relation Name Comments Coronary artery disease Brother Diabetes Brother Hypertension Brother Hypertension Father Diabetes Mother Hypertension Mother Relation Name Status Comments Brother Father Mother Social History Tobacco Use Types Packs/Day Years [...] 01/11/2025 10:06 AM EDT Plan of Treatment Health Maintenance Due Date Last Done Comments CT Colonography 1960 FIT-DNA 1960 FIT 1960 FOBT 1960 Medicare Annual Wellness (AWV) 1960 Medicare Initial Physical (IPPE) 1960 Sigmoidoscopy 1960 Pneumococcal Vaccine: 65+ Ye ars (1 of 2 - PCV) 1965 Depression Screening 1971 Adult Tetanus 1981 Zoster Vaccines (1 of 2) 2009 Fall Risk Screening 2024 COVID-19 Vaccine ( - 2023-2 5 season) 2024 Influenza Vaccine (Season Ended) 2025 Colonoscopy 11/01/2033 11/01/2023 Colorectal Cancer Screening 11/01/2033 HIB Vaccines Aged Out No longer eligi ble based on patient's age to complete this topic HPV Vaccines Aged Out No longer eligi ble based on patient's age to complete this topic IPV Vaccines Aged Out No longer eligi ble based on patient's age to complete this topic Meningococcal B Vaccine Aged Out No l onger eligible based on patient's age to complete this topic Meningococcal Vaccine Aged Out No denise hardik eligible based on patient's age to complete this topic Rotavirus Vaccines Aged Out No longer eligible based on patient's age to complete this topic Care Teams Surveyor Hydrographic Relationship Specialty Start Date End Date Nikunj Yanez MD [address] [place] [address] PCP - General Family Medicine 07/11/24
--- OUTSIDE RECORDS SUMMARY | 2025-01-30 09:26 | XMS_ITS | Encounter Summary ---
Author Organization [facility] Address [address] [place] [address] Care Team Providers Care Worsted Winder Name Role Phone Rosa Barker MD Unavailable Shaikh CURRY Malik Primary Care Provider [phone] Nikunj Yanez MD Primary Care Provider [phone] Sandee Santoyo NP Unavailable [phone] Encounter Details Date Type Department Care Team (Late st Contact Info) Description 12/06/2023 Orders Only [facility] [address] [facility] [address] [place] [address] Sho Galdamez NP [address] [place] [address] Social History Tobacco Use Types Packs/Day Years [...] How often do you attend chur or bahai services? More than 4 times per year 08/18/2023 Do you belong to any clubs o r organizations such as moravian groups, unions, fraternal or athletic groups, or [...] Recorded Patient Health Questionnaire-2 Score 2 08/18/2023 [facility] - Occupational Stress Questionnaire Answer Date [...] [facility] [address] [place] [address] Husam Muñoz MD [address] [place] [address] 03/19/2025 10:45 AM EDT Office Visit [facility] [address] [place] [phone] Nikunj Yanez MD [address] [place] [address] documented as of this encounter Procedures Procedure Name Priority Date/Time Associated Diagnosis Comments XR HIP BI Routine 12/03/2023 1:56 PM EDT documented in this encounter Results * XR HIP BI (12/03/2023 1:56 PM EDT) Anatomical Region Laterality Modality Radiographic Jeny ging Sho Galdamez BRAZING MACHINE TENDER IMG XR PROCEDURES Final Result documented in this encounter Visit Diagnoses Not on filedocumented in this encounter Care Teams Worsted Winder Relationship Specialty Start Date End Date Rosa Barker MD [address] [place] [address] PCP - Devoted 09/05/22 Shaikh Malik MD [address] [place] [address] PCP - General Internal Medicine 11/23/23 04/08/24 Nikunj Yanez MD [address] [place] [address] PCP - General Family Medicine 04/09/24 Sandee Santoyo NP [address] [place] [address] Nurse Practitioner Family Medicine 04/09/24 11/21/24 documented as of this encounter
--- OUTSIDE RECORDS SUMMARY | 2025-01-30 09:26 | XMS_ITS | Encounter Summary ---
Author Organization [facility] Address [address] [place] [address] Care Team Providers Care Manager Services Name Role Phone Rosa Barker MD Unavailable Shaikh CURRY Malik Primary Care Provider [phone] Nikunj Yanez MD Primary Care Provider [phone] Sandee Santoyo NP Unavailable [phone] Encounter Details Date Type Department Care Team [...] How often do you attend chur or congregation services? More than 4 times per year 08/18/2023 Do you belong to any clubs o r organizations such as pentecostal groups, unions, fraternal or athletic groups, or [...] Recorded Patient Health Questionnaire-2 Score 2 08/18/2023 [facility] - Occupational Stress Questionnaire Answer Date Recorded [...] place to sleep or slept in a chcf (including now)? No 08/18/2023 Sex and Gender [...] Visit [facility] [address] [place] [address] Husam Muñoz MD [address] [place] [address] 03/19/2025 10:45 AM EDT Office Visit [facility] [address] [place] [phone] Nikunj Yanez MD [address] [place] [address] documented as of this encounter Procedures Procedure Name Priority Date/Time Associated Diagnosis Comments XR KNEE 4+ VIEWS LEFT 12/05/2023 12:49 PM EDT documented in this encounter Results * XR knee 4+ views left (12/05/2023 12:49 PM EDT) Anatomical Region Laterality Modality Lower Extremities, Knee Left Radiogra phic Imaging 12/05/2023 12:4 9 PM EDT Narrative 12/05/2023 12:52 [place] [address] XRay Report Signed Patient: RIGO PETE MR#: [id number] : 1960 Acct:[id number] Age/Sex: 63 / M ADM Date: 12/03/23 Loc: RAD Attending Dr: Pedro Del Real NP Ordering Physician: Pedro Del Real NP Date of Service: 12/03/23 Procedure(s): XR knee LT 4V Accession Number(s): [id number] cc: Shaikh Meka Malik; Pedro Del Real NP [place] [address] Patient Name: RIGO PETE MRN: [id number] date: 1960 Sex: M Assigned Patient Location: [facility] Current Patient Location: [facility] Accession/Order Number: [id number] Exam Date: 12/03/2023 15:20 Report Date: 12/05/2023 12:49 At the request of: PEDRO DEL REAL Procedure: XR knee LT 4V PROCEDURE: XR knee LT 4V HISTORY: left knee pain , chronic COMPARISON: None. FINDINGS: BONES:Slight narrowing of the lateral joint space and mild lateral subluxation of the tibial plafond in relation to the femoral condyles. Small to moderate degenerative osteophytes along the articular margins of all 3 compartments. No fracture, dislocation, bone lesion. SOFT TISSUES:No visible soft tissue swelling. EFFUSION:None visible. OTHER: Negative. XR/XR knee LT 4V IMPRESSION: 1. No acute bone abnormality. 2. 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 Electronically authenticated by: KIAN TINAJERO Date: 12/05/2023 12:49 Dictated By: Kian Tinajero M.D. Signed By: 12/05/23 3516 DD/ 1249 TD/TT: Support Services Specialist: Procedure Note Radiology, Radiologist, MD - 12/08/[address] [address] XRay Report Signed Patient: RIGO PETE NMR#: [id number] : 1960cct:[id number] Age/Sex: 63 / MADM Date: 12/03/23 Loc: [facility] Attending Dr: Pedro Del Real NP Ordering Physician: Pedro Del Real NP Date of Service: 12/03/23 Procedure(s): XR knee LT 4V Accession Number(s): [id number] cc: Shaikh Meka Malik; Pedro Del Real NP [facility] [place] [address] Patient Name: RIGO PETE MRN: [id number] date: 1960 Sex: M Assigned Patient Location: [facility] Current Patient Location: [facility] Accession/Order Number: [id number] Exam Date: 12/03/2023 15:20 Report Date: 12/05/2023 12:49 At the request of: PEDRO DEL REAL Procedure: XR knee LT 4V PROCEDURE: XR knee LT 4V HISTORY: left knee pain , chronic COMPARISON: None. FINDINGS: BONES:Slight narrowing of the lateral joint space and mild lateralsubluxation of the tibial plafond in relation to the femoral condyles. Small tomoderate degenerative osteophytes along the articular margins of all 3compartments. No fracture, dislocation, bone lesion. SOFT TISSUES:No visible soft tissue swelling. EFFUSION:None visible. OTHER: Negative. XR/XR knee LT 4V IMPRESSION: 1. No acute bone abnormality. 2. Multifocal mild to moderate degenerative joint disease of the leftknee. Electronically authenticated by: KIAN TINAJERO Date: 12/05/2023 12:49 Dictated By: Kian Tinajero M.D. Signed By:12/05/23 1252 DD/ 1249 TD/TT: Support Services Specialist: us Generic External Data Provider IMG XR PROCEDURES Final Result documented in this encounter Visit Diagnoses Not on filedocumented in this encounter Care Teams Manager Services Relationship Specialty Start Date End Date Rosa Barker MD [address] [address] [place] [address] PCP - Devoted 09/05/22 Shaikh Malik MD [address] [place] [address] PCP - General Internal Medicine 11/23/23 04/08/24 Nikunj Yanez MD [address] [place] [address] PCP - General Family Medicine 04/09/24 Sandee Santoyo NP [address] [place] [address] Nurse Practitioner Family Medicine 04/09/24 11/21/24 documented as of this encounter
--- OUTSIDE RECORDS SUMMARY | 2025-01-30 09:26 | XMS_ITS | Patient Health Record ---
Author Organization [facility] in [place] Address [address] [place] [address] Care Team Providers Care Transformer Molder Name Role Phone Nikunj Yanez MD Primary Care Provider UnavailJayleen Wade Unavailable [phone] Allergies No Known Allergies Results Component Value Reference Range Notes CT Chest High Resolution Reviewed date:08/27/2024 08:00:08 AM Interpretation: Performing Lab: Notes/Report: CT chest high res Reviewed date:08/27/2024 07:11:23 AM Interpretation: Performing Lab: Notes/Report: Source Facility: [place] [address] CT Scan Report Signed Patient: RIGO PETE MR#: [id number] : 1960 Acct:[id number] Age/Sex: 64 / M ADM Date: 08/24/24 Loc: CT Attending Dr: Jayleen Ashford D.O. Ordering Physician: Jayleen Ashford D.O. Date of Service: 08/24/24 Procedure(s): CT chest high res Accession Number(s): [id number] cc: MANI CAGE [place] [address] Patient Name: RIGO PETE MRN: [id number] date: 1960 Sex: M Assigned Patient Location: CT Current Patient Location: Accession/Order Number: [id number] Exam Date: 08/24/2024 08:09 Report Date: 08/25/2024 06:00 At the request of: JAYLEEN ASHFORD Procedure: CT chest high res EXAMINATION: CT chest high res HISTORY: Other Pleural Conditions oral COMPARISON: No relevant comparison available. TECHNIQUE: Axial images were obtained at 10 mm intervals during inspiration and expiration in the supine and prone positions. No IV contrast given. Dose reduction techniques were achieved by using automated exposure control and/or adjustment of mA and/or kV according to patient size and/or use of iterative reconstruction technique. FINDINGS: LUNGS: Mild emphysematous changes. Prominent curvilinear stranding opacities/scarring throughout the lungs, left greater than right. No significant peripheral fibrosis. No air trapping or large bulla. No significant bronchiectasis or mucous plugging. Elevated left hemidiaphragm with herniation of fat through the diaphragm. PLEURA: No mass, effusion, or pneumothorax. JAKY: No mass or adenopathy. MEDIASTINUM: No mass or adenopathy. HEART: No significant enlargement or pericardial effusion.. Coronary arteries: AORTA: No aneurysm.. CHEST WALL: No mass or axillary adenopathy LIMITED ABDOMEN: No suspicious findings. Limited images of the upper abdomen. OTHER: Negative. CT/CT chest high res IMPRESSION: 1. Stable chronic interstitial changes and scarring. Mild emphysematous changes. No acute infiltrates, mucus plugging, bronchiectasis, or air trapping. 2. Grossly stable elevated left hemidiaphragm and herniation of fat through the diaphragm. Electronically authenticated by: KIAN TINAJERO Date: 08/25/2024 06:00 Dictated By: Kian Tinajero M.D. Signed By: 08/25/24 06 DD/ 06 TD/TT: Sterile Processing Technologist: [place] [address] CT Scan Report Signed Patient: RIGO PETE MR#: [id number] : 1960 Acct:[id number] Age/Sex: 64 / M ADM Date: 08/24/24 Loc: CT Attending Dr: Jayleen Ashford D.O. Ordering Physician: Jayleen Ashford D.O. Date of Service: 08/24/24 Procedure(s): CT antolin st high res Accession Number(s): [id number] cc: MANI CAGE [address] [address] Patient Name: RIGO PETE MRN: [id number] date: 1960 Sex: M Assigned Patient Location: CT Current Patient Location: Accession/Order Numb er: [id number] Exam Date: 08:09 Report Date: 08/25/2024 06:00 At the request of: JAYLEEN ASHFORD Procedure: CT chest high res EXAMINATION: CT ches t high res HISTORY: Other Pleur al Conditions oral COMPARISON: No relev ant comparison available. TECHNIQUE: Axial marti ges were obtained at 10 mm intervals during inspiration and expiration in the warren pine and prone positions. No IV contrast given. Dose reduction techniques were achieved by using automated exposure control and/or adjustment of mA and /or kV according to patient size and/or use of iterative reconstruction technique. FINDINGS: LUNGS: Mild emphysem atous changes. Prominent curvilinear stranding opacities/scarring throughout the lungs, left greater than right. No significant peripher al fibrosis. No air trapping or large bulla. No significant bronchiectasis or mu cous plugging. Elevated left hemidiaphragm with herniation of fat through the diaphragm. PLEURA: No mass, effusion, or pneumothorax. JAKY: No mass or adenopathy. MEDIASTINUM: No mass or adenopathy. HEART: No significan t enlargement or pericardial effusion.. Coronary arteries: AORTA: No aneurysm.. CHEST WALL: No mass or axillary adenopathy LIMITED ABDOMEN: No suspicious findings. Limited images of the upper abdomen. OTHER: Negative. C T/CT chest high res IMPRESSION: 1. Stable chronic interstitial changes and scarring. Mild emphysematous changes. No acute infiltrates, mucus plugging, bronchiectasis, or air trapping. 2. Grossly stable elevated left hemidiaphragm and herniation of fat through the diaphragm. Electronically authenticated by: KIAN TINAJERO Date: 08/25/2024 06:00 Dictated By: Kian Tinajero M.D. Signed By: 08/25/24602 DD/ 0600 TD/TT: Sterile Processing Technologist: pulmonary function test Reviewed date:08/27/2024 08:03:39 AM Interpretation: Performing Lab: Notes/Report: Source Facility: [place] [address] Respiratory Report Signed Patient: RIGO PETE MR#: [id number] : 1960 Acct:[id number] Age/Sex: 64 / M ADM Date: 08/24/24 Loc: CT Attending Dr: Jayleen Ashford D.O. Ordering Physician: Jayleen Ashford D.O. Date of Service: 08/24/24 Procedure(s): RT pulmonary function test Accession Number(s): [id number] cc: [facility] Test Date: 2024-08-24 Pat Name: RIGO PETE Department: Room: - Gender: Male Tea Taster: Emily Mckenna RRT : 1960 Requested By: Jayleen Ashford Order Number: [id number] Reading MD: Jayleen Ashford Interpretive Statements Pulmonary function testing was completed according to ATS criteria. Findings were considered accurate and reproducible. Both pre- and post-bronchodilator values utilized for spirometry. Spirometry (based on pre-bronchodilator values): -FEV1/FVC: Normal @ 81% -FEV1: Reduced @ 75% -FVC: Mild-moderately reduced @ 70% -There is no significant bronchodilator response. Lung volumes by plethysmography (based on pre-bronchodilator values): -RV: Reduced @ 65% -TLC: Moderately reduced @ 65% Diffusion capacity: -DLCO: Moderate reduction @ 65% when corrected for Hb 17.6g/dL Flow-volume loop: -Mild obstructive pattern Prior testing 05/16/2018: -FEV1: 57% -T% -DLCO: 66% Impressions: -Spirometry suggests mild-moderate restriction, confirmed with a moderately reduced TLC. There is also a moderate diffusion capacity. PFT is consistent with a restrictive process such as interstitial lung disease or cardiopulmonary vascular disease. There also appears to be a secondary polycythemia with Hb 17.6g/dL. When compared to prior PFT 05/16/2018, spirometry has improved, without significant change in lung volumes or diffusion capacity. Clinical correlation required. Electronically Signed On 08-27-2024 7:49:17 EST by Jayleen Ashford Dictated By: Jayleen Ashford D.O. Signed By: 08/27/24 0749 08/27/2449 DD/ TD/TT: Sterile Processing Technologist: [place] [address] Respiratory Report Signed Patient: RIGO PETE MR#: [id number] : 1960 Acct:[id number] Age/Sex: 64 / M ADM Date: 08/24/24 Loc: CT Attending Dr: Jayleen Ashford D.O. Ordering Physician: Jayleen Ashford D.O. Date of Service: 08/24/24 Procedure(s): RT pulmonary function test Accession Number(s): [id number] cc: [facility] Test Date: 2024-08-24 Pat Name: RIGO PETE Department: 73 Room: - Gender: Male Technic pilar: Emily Mckenna, NEUROSURGERY PHYSICIAN : 1960 Requ ested By: Jayleen Ashford Order Number: [id number] Reading MD: Jayleen Ashford Interpretive Statements Pulmonary function testing was completed according to ATS criteria. Findings were considered accu rate and reproducible. Both pre- and post-bronchodilator values utilized for spirometry. Spirometry (based on pre-bronchodilator values): -FEV1/FVC: Normal @ 81% -FEV1: Reduced @ 75% -FVC: Mild-moderatel y reduced @ 70% -There is no signifi cant bronchodilator response. Lung volumes by plethysmography (based on pre-bronchodilator values): -RV: Reduced @ 65% -TLC: Moderately red uced @ 65% Diffusion capacity: -DLCO: Moderate redu ction @ 65% when corrected for Hb 17.6g/dL Flow-volume loop: -Mild obstructive pattern Prior testing 05/16/2018: -FEV1: 57% -T% -DLCO: 66% Impressions: -Spirometry suggests mild-moderate restriction, confirmed with a moderately reduced TLC. There i s also a moderate diffusion capacity. PFT is consistent with a restrictive process such as interstitial lung disease or cardiopulmonary vasc ular disease. There also appears to be a secondary polycythemia with Hb 17.6g/dL. When compared to prior PFT 05/16/2018, spirometry has impro jaison, without significant change in lung volumes or diffusion capacity. Clinical correlation required. Electronically Maria Fernanda d On 08-27-2024 7:49:17 EST by Jayleen Ashford Dictated By: Sherri Ashford D.O. Signed By: 08/27/24 0749 08/27/24 0749 DD/ 0844 TD/TT: Sterile Processing Technologist: HEMOGLOBIN Reviewed date:08/27/2024 07:03:56 AM Interpretation: Performing Lab: Notes/Report: [facility] , Hemoglobin 17.6 14.0-18.0 g/dL Performing Lab: see note ML - [facility] Reason For Referral No Information Medications Medication SIG (Take, Route, Frequency, Duration) Notes Start Date End Date Status Atenolol 25 MG TAKE 1 TABLET BY NAYLA TH DAILY Oral for 90 Days Active Atorvastatin Calcium 40 MG 1 tablet Oral ly Once a day for 90 days Active Cetirizine-Pseudoephedrine ER 5-120 MG TAKE 1 TABLET BY MOUTH IN THE MORNING and ONE TABLET BY MOUTH BEFORE bedtime Oral for 30 Days Active Losartan Potassium-HCTZ 50-12.5 MG TAKE 1 TABLET BY MOUTH DAILY Oral for 90 Days Active Montelukast Sodium 10 MG TAKE 1 TABLET B Y MOUTH DAILY Oral for 90 Days Active Allergy Relief/Nasal Decongest 5-120 MG TAKE 1 TABLET BY MOUTH DAILY Oral for 30 Days Active oxyCODONE-Acetaminophen 5-325 MG Oral for 30 Days Active Brovana 15 MCG/2ML 2mL Inhalation BID f or 30 days Active Testosterone Cypionate 200 MG/ML INJECT ONE-HALF ml INTRAMUSCULARLY EVERY 2 (TWO) weeks Intramuscular for 84 Days Active Ipratropium [place] 0.02 % 2.5mL Inhalat ion QID for 30 days 10/09/2024 Active Fluticasone Propionate 50 MCG/ACT 1 spray in each nostril Nasally Twice a day Active Clarithromycin 250 MG Oral for 90 Days Active Social History [...] Problem Status W/U Status Risk Notes Problem [id number] Chronic obstructive pulmonary disease, unspecified (J44.9) Active confirmed Problem Centrilobular emphysema (03447238) Centrilobular emphysema (J43.2) Active confirmed Problem Pulmonary fibrosis (76795834) Pulmonary fibrosis, unspecified (J84.10) Active confirmed Problem Coronary artery disease (17808510) CAD (coronary artery disease) (I25.10) Active confirmed Problem Obstructive sleep apnea syndrome (99920447) [place] (obstructive sleep apnea) (G47.33) Active confirmed Problem Disorder of diaphragm (46227363) Hemidiaphragm paralysis (J98.6) Active confirmed Problem Ex-tobacco user (finding) (143433918) History of tobacco abuse (Z87.891) Active confirmed Problem History of COVID-19 (7549062934429414 05) History of COVID-19 (Z86.16) Active confirmed Vital Signs Heart Rate 73 /min 01/08/2025 Temperature 96.8 degrees Fahrenheit 01/08/2025 Respiratory Rate 18 /min 01/08/2025 Oximetry 95 % 01/08/2025 Blood pressure diastolic 90 mm Hg 01/08/2025 Height 72 in 01/08/2025 Blood pressure systolic 141 mm Hg 01/08/2025 Weight 247.0 lbs 01/08/2025 BMI 33.5 kg/m2 01/08/2025 Procedures Procedure Date Ordered Date Performed Result Body Sit e PFT (61317, 12736, 26891) 08/08/2024 08/24/2024 N/A Pulmonary Rehabilitation 01/08/2025 N/A Encounters Encounter Location Date Provider Diagnosis Pulmonary Medicine [address] [address] 08/08/2024 Jayleen Ludwig Hemidiaphragm paraly sis J98.6 ; COPD (chronic obstructive pulmonary disease) J44.9 ; Pulmonary fibrosis, unspecified J84.10 ; Restrictive lung disease J98.4 ; [place] (obstructive sleep apnea) G47.33 ; CAD (coronary artery disease) I25.10 ; History of tobacco abuse Z87.891 and History of COVID-19 Z86.16 [facility] [address] [place] [address] 10/09/2024 Jayleen Ashford Hemidiaphragm paraly sis J98.6 ; Centrilobular emphysema J43.2 ; Pulmonary fibrosis, unspecified J84.10 ; Restrictive lung disease J98.4 ; [place] (obstructive sleep apnea) G47.33 ; CAD (coronary artery disease) I25.10 ; History of tobacco abuse Z87.891 and History of COVID-19 Z86.16 [facility] [address] [place] [address] 01/08/2025 Jayleen Ashford Hemidiaphragm paraly sis J98.6 ; Centrilobular emphysema J43.2 ; Pulmonary fibrosis, unspecified J84.10 ; Restrictive lung disease J98.4 ; [place] (obstructive sleep apnea) G47.33 ; CAD (coronary artery disease) I25.10 and History of tobacco abuse Z87.891 [facility] [address] [place] [address] 10/09/2024 Jayleen Ashford Assessments Encounter Date Diagnosis (ICD Code) Assessment Notes Treatment Notes Treatment Clinical Notes Section Notes 08/08/2024 Hemidiaphragm paralysis (ICD-10 - J98.6) History: ~2001: Acquired left hemidiaphragm paralysis associated with anterior cervical discectomy & fusion -12/23/2027: Left hemidiaphragm pacer, failed to improve symptoms -02/11/2021: Removal of diphragm pacer, left hemidiaphragm plication -Failed CPAP/BiPAP Explained the patient that there is not much else that can be done for his paralyzed hemidiaphragm. Amazingly, he had a pacer placed, but he had no benefit from it and it was removed. Discussed generally treatment for hemidiaphragm paralysis is positive airway pressure and pulmonary rehab; he already states he cannot tolerate any CPAP or BiPAP. He does not recall ever proceed dissipating with pulmonary rehabilitation. I suggested that this is the only option I have available left to improve his neuromuscular mechanics. He will need to have a new PFT to qualify as last one was done over 6 years ago. He voiced agreement. 08/08/2024 COPD (chronic obstructive pulmonary disease) (ICD-10 - J44.9) Patient is symptomatic. He states he has had benefit from inhalers in the past, but has great difficulty inspiring due to the paralyzed left hemidiaphragm-he is not able to generate enough negative inspiratory force (NIF) to fully distribute the medications, especially into the left lung. I recommended looking into a nebulizer which is an excellent medication administration route for patients with neuromuscular disease. This would not be strongly NIF-dependent. Patient voiced enthusiasm to use a nebulizer. Equu-ny-ivds encounter performed with the patient to document continued need for a nebulizer with nebulized medications. To treat COPD, will start with a LAMA/LABA combination consisting of Yupelri and Brovana. Will have patient return in ~2 months to assess response. If some benefit, but not enough, will look into additional nebulized therapy such as adding on Pulmicort or Ohtuvayre. Regarding oxygen therapy, explained the patient that his 6-minute walk did not show any desaturations, so I cannot rely on that to support an O2 prescription. I stated I could order O2, but he would have to pay for it [id number]. He stated he would not be able to afford that. Will continue to monitor his oxygenatio for any desaturations which could then qualify him for supplemental O2. 10/09/2024 Hemidiaphragm paralysis (ICD-10 - J98.6) History: [...] other than pulmonary rehabilitation. He states that [facility] did not want to pay for rehab [...] help. He voiced understanding at this possibility. 01/08/2025 Hemidiaphragm paralysis (ICD-10 - J98.6) History: [...] year. 01/08/2025 Centrilobular emphysema (ICD-10 - J43.2) Vvyg-rf-ywga performed today regarding continued need for nebulizer, [...] contributing to his symptoms. Encouraged pulmonary rehabilitation. 10/09/2024 Pulmonary fibrosis, unspecified (ICD-10 - J84.10) [...] further w/up or monitoring at this time. 08/08/2024 Pulmonary fibrosis, unspecified (ICD-10 - J84.10) Chest CT 09/25/2021 noted scattered chronic interstitial changes and fibrosis. I do not have any other records stating patient has history of fibrosis or reports of fibrotic changes. As he is 64, he is in the age range of developing idiopathic pulmonary fibrosis. I recommended getting a chest CT to follow-up (HRCT). The patient voiced agreement. 08/08/2024 Restrictive lung disease (ICD-10 - J98.4) Secondary to paralyzed left hemidiaphragm +/- pulmonary fibrosis. Ordering PFT and HRCT for further investigation. 10/09/2024 Restrictive lung disease (ICD-10 - J98.4) Secondary to paralyzed left hemidiaphragm. 01/08/2025 Restrictive lung disease (ICD-10 - J98.4) Secondary to paralyzed left hemidiaphragm. Pulmonary rehabilitation phase 3 ordered. 01/08/2025 [place] (obstructive sleep apnea) (ICD-10 - G47.33) PSG 01/15/2015: AHI 24 PAP titration 02/24/2015: Did not tolerate CPAP, changed to BiPAP Patient tried and failed CPAP and BiPAP therapy - could not tolerate it. 10/09/2024 [place] (obstructive sleep apnea) (ICD-10 - G47.33) PSG 01/15/2015: AHI 24 PAP titration 02/24/2015: Did not tolerate CPAP, changed to BiPAP Patient tried and failed CPAP and BiPAP therapy - could not tolerate it. 08/08/2024 [place] (obstructive sleep apnea) (ICD-10 - G47.33) PSG 01/15/2015: AHI 24 PAP titration 02/24/2015: Did not tolerate CPAP, changed to BiPAP Patient tried and failed CPAP and BiPAP therapy. Explained that PAP therapy not only treats [place], but is also recommended treatment for paralyzed hemidiaphragm. Unfortunately, the patient voiced that he would not be able to use the PAP and therefore he does not want any further evaluation or treatment for [place]. 08/08/2024 CAD (coronary artery disease) (ICD-10 - I25.10) Mild RCA disease on [facility] F/U with [facility] Cardiology 10/09/2024 CAD (coronary artery disease) (ICD-10 - I25.10) Mild RCA disease on [facility] He does not qualify for any supplemental O2 at this time. 01/08/2025 CAD (coronary artery disease) (ICD-10 - I25.10) Mild RCA disease on [facility] He does not qualify for any supplemental [...] current LDCT screening criteria. 10/09/2024 History of tobacco abuse (ICD-10 - Z87.891) 1-2ppd x 30 years, quit 2009. The patient would have only 1 year of eligibility left for LDCT program as it has been 14 years since smoking cessation, and has I am ordering HRCT to investigate the pulmonary fibrosis, he will therefore not meet current LDCT screening criteria. 08/08/2024 History of tobacco abuse (ICD-10 - Z87.891) 1-2ppd x 30 years, quit 2009. The patient would have only 1 year of eligibility left for LDCT program as it has been 14 years since smoking cessation, and has I am ordering HRCT to investigate the pulmonary fibrosis, he will therefore not meet current LDCT screening criteria. 08/08/2024 History of COVID-19 (ICD-10 - Z86.16) 202010/09/2024 History of COVID-19 (ICD-10 - Z86.16) 202010/09/2024 Other 01/08/2025 Other 2020 Plan Of Treatment Pending Test Test Name Order Date Pulmonary Rehabilitation 01/08/2025 Next Appt Details Provider Name:Jayleen Ashford, 01/14/2026 10:00:00 AM, [address] [place], [address], Insurance Providers Payer Name Payer Address Payer Phone Subscriber Number Group Number Insured Name Patient Relationship to Insured Coverage Start Date Coverage End Date [employer] [address] [place] [phone] [id number] Rigo Gtz Self - patient is the insured Medical (General) History Medical History History ICD Code Centrilobular emphysema J43.2 Hemidiaphragm paralysis J98.6 HTN (hypertension) I10 HLD (hyperlipidemia) E78.5 [place] (obstructive sleep apnea) G47.33 CAD (coronary artery disease) I25.10 Lumbar stenosis M48.061 History of COVID-19 Z86.16 History of tobacco abuse Z87.891 Surgical History Surgery Date(Month/Year) tonsillectomy Cardiac Catheterization 12/10/2016 Laparoscopic Left Diaphragm Plication wi th removal of previous pacer 02/11/2021 Left knee arthroscopy neck surgery cholecystectomy Diaphragm Pacer Implant 12/12/2017
--- OUTSIDE RECORDS SUMMARY | 2025-01-30 09:26 | XMS_ITS | Encounter Summary ---
Author Organization [facility] Address [address] [place] [address] Phone Care Team Providers Care Yacht Master Name Role Phone Unavailable Primary Care Provider Unavailabl e Encounter Details Date Type Department Care Team (Late st Contact Info) Description 09/25/2017 Orders Only [facility] [address] [place] [address] Conversion, Onbase Social History Tobacco Use Types Packs/Day Years Used Date Smoking Tobacco: Never Assessed Sex and Gender Information Value Date Recorded Sex Assigned at Not on file Legal Sex Male 4:30 PM EST Gender Identity Not on file Sexual Orientation Not on file documented as of this encounter Plan of Treatment Scheduled Orders Name Type Priority Associated Diagnoses Orde r Schedule OUTSIDE LAB SCAN Lab Ordered: 09/25/2017 documented as of this encounter Visit Diagnoses Not on filedocumented in this encounter
--- OUTSIDE RECORDS SUMMARY | 2025-01-30 09:27 | XMS_ITS | Encounter Summary ---
Author Organization [facility] Address [address] [place] [address] Care Team Providers Care Boatwright Name Role Phone Rosa Barker MD Unavailable Shaikh CURRY Malik Primary Care Provider [phone] Nikunj Yanez MD Primary Care Provider [phone] Sandee Santoyo NP Unavailable [phone] Encounter Details Date Type Department Care Team (Late st Contact Info) Description 04/04/2024 Clinisync Result Encounter [facility] External Department Unsolicited [...] 08/18/2023 How often do you attend chur ch or worship services? More than 4 times per year 08/18/2023 Do you belong to any clubs o r organizations such as shinto groups, unions, fraternal or athletic groups, or [...] Date Recorded Patient Health Questionnaire-2 Score 0 01/31/2024 [facility] - Occupational [...] place to sleep or slept in a mcc (including now)? No 08/18/2023 Sex and Gender [...] [facility] [address] [place] [address] Husam Muñoz MD [address] [place] [address] 03/19/2025 10:45 AM EDT [facility] [address] [place] [address] Nikunj Yanez MD [address] [place] [address] documented as of this encounter Procedures Procedure Name Priority Date/Time Associated Diagnosis Comments XR LUMBAR SPINE 6V W BENDING 04/04/2024 2:07 PM EDT documented in this encounter Results * XR LUMBAR SPINE 6V W BENDING (04/04/2024 2:07 PM EDT) Anatomical Region Laterality Modality Other 04/04/2024 2:07 PM EDT Narrative 04/04/2024 2:09 [place] [address] XRay Report Signed Patient: RIGO PETE MR#: [id number] : 1960 Acct:[id number] Age/Sex: 64 / M ADM Date: 04/03/24 Loc: MRI Attending Dr: Pedro Del Real NP Ordering Physician: Pedro Del Real NP Date of Service: 04/03/24 Procedure(s): XR lumbar spine 6V w bending Accession Number(s): [id number] cc: Shaikh Meka Malik; Pedro Del Real NP [facility] [place] [address] Patient Name: RIGO PETE MRN: [id number] date: 1960 Sex: M Assigned Patient Location: MRI Current Patient Location: Accession/Order Number: [id number] Exam Date: 04/03/2024 09:50 Report Date: 04/04/2024 14:07 At the request of: PEDRO DEL REAL Procedure: XR lumbar spine 6V w bending EXAMINATION: XR lumbar spine 6V w bending HISTORY: Lumbar Radiculopathy, Lumbar Stenosis COMPARISON: No relevant comparison available. FINDINGS: BONES: Normal alignment with no acute fracture or spondylolisthesis. Moderate to severe spondylosis and facet osteoarthropathy DISC SPACES: Normal. No significant disc height narrowing, subluxation, or endplate abnormality. PARASPINOUS: Negative. No paraspinous abnormality is seen. OTHER: Negative. XR/XR lumbar spine 6V w bending IMPRESSION: Moderate to severe degenerative changes Electronically authenticated by: RADHA DIAZ Date: 04/04/2024 14:07 Dictated By: Radha Diaz M.D. Signed By: 04/04/24 1409 DD/ 1407 TD/TT: Kit Assembler: Procedure Note Radiology, Radiologist, MD - 04/04/2024 [facility] [place] [id number] XRay Report Signed Patient: RIGO PETE NMR#: [id number] : 1960cct:[id number] Age/Sex: 64 / MADM Date: 04/03/24 Loc: MRI Attending Dr: Pedro Del Real NP Ordering Physician: Pedro Del Real NP Date of Service: 04/03/24 Procedure(s): XR lumbar spine 6V w bending Accession Number(s): [id number] cc: Shaikh Meka Malik; Pedro Del Real NP [address] [address] Patient Name: RIGO PETE MRN: [id number] date: 1960 Sex: M Assigned Patient Location: MRI Current Patient Location: Accession/Order Number: [id number] Exam Date: 04/03/2024 09:50 Report Date: 04/04/2024 14:07 At the request of: PEDRO DEL REAL Procedure: XR lumbar spine 6V w bending EXAMINATION: XR lumbar spine 6V w bending HISTORY: Lumbar Radiculopathy, Lumbar Stenosis COMPARISON: No relevant comparison available. FINDINGS: BONES: Normal alignment with no acute fracture or spondylolisthesis.Moderate to severe spondylosis and facet osteoarthropathy DISC SPACES: Normal. No significant disc height narrowing, subluxation, or endplate abnormality. PARASPINOUS: Negative. No paraspinous abnormality is seen. OTHER: Negative. XR/XR lumbar spine 6V w bending IMPRESSION: Moderate to severe degenerative changes Electronically authenticated by: RADHA DIAZ Date: 04/04/2024 14:07 Dictated By: Radha Diaz M.D. Signed By:04/04/24 1409 DD/ 1407 TD/TT: Kit Assembler: Generic External Data Provider [facility] Final Result documented in this encounter Visit Diagnoses Not on filedocumented in this encounter Care Teams Boatwright Relationship Specialty Start Date End Date Rosa Barker MD [address] [place] [address] PCP - Devoted 09/05/22 Shaikh Malik MD [address] [place] [address] PCP - General Internal Medicine 11/23/23 04/08/24 Nikunj Yanez MD [address] [place] [address] PCP - General Family Medicine 04/09/24 Sandee Santoyo NP [address] [place] [address] Nurse Practitioner Family Medicine 04/09/24 11/21/24 documented as of this encounter
--- OUTSIDE RECORDS SUMMARY | 2025-01-30 09:27 | XMS_ITS | Encounter Summary ---
Author Organization [facility] Address [address] [facility] [place] [address] Care Team Providers Care Make Up Operator Helper Name Role Phone Rosa Barker MD Unavailable Nikunj Yanez MD Primary Care Provider [phone] Encounter Details Date Type Department Care Team (Late st Contact Info) Description 01/25/2025 Bamboo flowsheet [facility] [address] [place] [address] Nikunj Yanez MD [address] [place] [address] Social History Tobacco Use Types Packs/Day Years [...] week 06/05/2024 How often do you attend [facility] or confucianist services? More than 4 times per year 06/05/2024 Do you belong to any clubs o r organizations such as orthodox groups, unions, fraternal or athletic groups, or [...] Recorded Patient Health Questionnaire-2 Score 0 01/25/2025 [facility] ional Health - Occupational [...] place to sleep or slept in a half-way (including now)? No 08/18/2023 Housing Stability Vital Sign Answer Naseem e Recorded In the last 12 months, was t here a time when you were not able to pay the mortgage or rent on time? No 06/05/2024 Number of Times Moved in the Last Year Not on fi le 06/05/2024 At any time in the past 12 m [facility], were you homeless or living in a half-way (including now)? No 06/05/2024 Sex and Gender Information Value Date Recorded Sex Assigned at Not on file Legal Sex Male 7:09 PM EDT Gender Identity Not on file Sexual Orientation Not on file documented as of this encounter Plan of Treatment Upcoming Encounters Date Type Department Care Team (Late st Contact Info) Description 03/19/2025 10:30 AM EDT Office Visit [facility] [address] [place] [address] Husam Muñoz MD [address] [place] [address] 03/19/2025 10:45 AM EDT Office Visit [facility] [address] [place] [address] Nikunj Yanez MD [address] [place] [address] documented as of this encounter Visit Diagnoses Not on filedocumented in this encounter Additional Health Concerns Assessment Noted Time PHQ-9 Depression Total Score: 2 01/26/20 25 10:00 AM EDT documented as of this encounter Care Teams Make Up Operator Helper Relationship Specialty Start Date End Date Rosa Barker MD [address] [place] [address] PCP - Devoted 09/05/22 Nikunj Yanez MD [address] [place] [address] PCP - General Family Medicine 04/09/24 documented as of this encounter
--- OUTSIDE RECORDS SUMMARY | 2025-01-30 09:27 | XMS_ITS | Encounter Summary ---
Author Organization [facility] Address [address] [place] [address] Care Team Providers Care Lot Worker Name Role Phone oRsa Barker MD Unavailable Nikunj Yanez MD Primary Care Provider [phone] Sandee Santoyo NP Unavailable [phone] Encounter Details Date Type Department Care Team (Late st Contact Info) Description 05/24/2024 Clinisync Result Encounter [facility] External Department Unsolicited [...] often do you attend chur ch or tenriism services? More than 4 times per year 08/18/2023 Do you belong to any clubs o r organizations such as judaism groups, unions, fraternal or athletic groups, or [...] Date Recorded Patient Health Questionnaire-2 Score 0 05/03/2024 [facility] - Occupational Stress Questionnaire Answer Date [...] EDT Office Visit [facility] [address] [place] [address] Husam Muñoz MD [address] [place] [address] 03/19/2025 10:45 AM EDT [facility] [address] [place] [address] Nikunj Yanez MD [address] [place] [address] documented as of this encounter Procedures Procedure Name Priority Date/Time Associated Diagnosis Comments CA ECHO DOPPLER COMPLETE 05/24/2024 4:55 PM EDT documented in this encounter Results * CA ECHO DOPPLER COMPLETE (05/24/2024 4:55 PM EDT) Anatomical Region Laterality Modality Other 05/24/2024 4:55 PM EDT Narrative 05/24/2024 4:56 [place] [address] Cardiology Report Signed Patient: RIGO PETE MR#: [id number] : 1960 Acct:[id number] Age/Sex: 64 / M ADM Date: 05/22/24 Loc: CARD Attending Dr: Elias Manzano M.D. Ordering Physician: Elias Manzano M.D. Date of Service: 05/22/24 Procedure(s): CA echo doppler complete Accession Number(s): [id number] cc: Shaikh Meka Malik; Elias Manzano M.D. Patient Name: RIGO PETE MR#: [id number] : 1960 Exam Date: 05/22/2024 Ordering Doctor: DR. ELIAS MANZANO M.D. ECHOCARDIOGRAM REPORT PROCEDURE: CA ECHO DOPPLER COMPLETE INDICATIONS: Dyspnea on exertion, hypertension, left lung is nonfunctioning, left lung plication, COPD COMPARISON: None. DESCRIPTION: COMPLETE ECHOCARDIOGRAM Real-time transthoracic echocardiography with 2D, M-mode, spectral and color flow Doppler performed. QUALITY: Technical quality was good. LEFT VENTRICLE: Normal chamber size. Mild left ventricular hypertrophy LV EF: Global left ventricular systolic function is normal; visually estimated ejection fraction is 60 to 65%. No obvious wall motion abnormalities. DIASTOLIC: Unable to assess diastolic function. ATRIAL SEPTUM: Inadequately seen. LEFT ATRIUM: Normal chamber size. RIGHT ATRIUM: Normal chamber size. RIGHT VENTRICLE: Normal chamber size. Normal right ventricular systolic function. TRICUSPID VALVE: Normal mobility and thickness. No stenosis with no regurgitation. Unable to assess right-sided pressures due to lack of measurable tricuspid regurgitation. MITRAL VALVE: Normal mobility and thickness. No evidence of mitral valve stenosis. There is no mitral annular calcification. Trivial mitral regurgitation. AORTIC VALVE: Normal trileaflet appearance. No visible sclerosis. Normal leaflet mobility. No evidence of aortic valve stenosis. No aortic regurgitation. AORTIC ROOT: Normal diameter and appearance. PULMONIC VALVE: Normal thickness and mobility. No stenosis. No regurgitation. PERICARDIUM: No evidence of pericardial effusion. IVC: Collapses with inspirations. CONCLUSION: 1. Global left ventricular systolic function is normal; visually estimated ejection fraction is 60 to 65% 2. The right ventricle is poorly seen but appears normal in size and systolic function 3. Unable to assess diastolic function 4. The left atrium is normal in size 5. No significant valvular abnormalities Adult Echocardiography Procedure Report Left Ventricle LVEDD (3.7 - 5.6 cm): 4.23 cm LVESD (2.2 - 4.0 cm): 1.96 cm LVIVS thickness (0.6 - 1.2 cm): 1.37 cm LVPW thickness (0.5 - 1.0 cm): 0.93 cm E - e': 8.19 LVOT Max Gradient: 3.64 mm[Hg] LVOT Area (cm2): 0.95 m/s Peak Velocity (LVOT): 0.95 m/s Mean Velocity (LVOT): 0.62 m/s LVOT Diameter 2.32 cm Left Atrium LA Volume Index (2D A2C): 25.57 ml/m2 Left Atrium Systolic Dimension: 3.03 cm Mitral Valve MV E to A Ratio: 0.82, 0.77 Right Ventricle Aorta AO Root Diam: 3.43 cm Aortic Valve AoV Area (Peak Yung): 3.39 cm2, 3.39 cm2 AoV Area (VTI): 3.71 cm2, 3.71 cm2 Peak Velocity(Antegrade Flow): 1.19 m/s Peak Gradient(Antegrade Flow): 5.70 mm[Hg] Mean Velocity(Antegrade Flow): 0.82 m/s Mean Gradient(Antegrade Flow): 3.10 mm[Hg] Velocity Time Integral: 26.28 cm Tricuspid Valve Pulmonic Valve Mean Gradient: 2.69 mm[Hg] Mean Velocity: 0.75 m/s Peak Velocity: 1.20 m/s, 1.14 m/s Peak Gradient: 5.20 mm[Hg], 5.81 mm[Hg] Right Atrium Dictated by: Derek Irby M.D. on 05/24/2024 at 16:52 Approved by: Derek Irby M.D. on 05/24/2024 at 16:55 Dictated By: Derek Irby M.D. Signed By: 05/24/246 DD/ 54 TD/TT: Pearl Diver: Procedure Note Radiology, Radiologist, MD - 05/24/2024 [place] [address] Cardiology Report Signed Patient: RIGO PETE NMR#: [id number] : 9Acct:[id number] Age/Sex: 64 / MADM Date: 05/22/24 Loc: CARD Attending Dr: Elias Manzano M.D. Ordering Physician: Elias Manzano M.D. Date of Service: 05/22/24 Procedure(s): CA echo doppler complete Accession Number(s): [id number] cc: Shaikh Meka Mlaik; Elias Manzano M.D. Patient Name: RIGO PETE MR#: [id number] : 1960 Exam Date: 05/22/2024 Ordering Doctor: DR. ELIAS MANZANO M.D. ECHOCARDIOGRAM REPORT PROCEDURE: CA ECHO DOPPLER COMPLETE INDICATIONS: Dyspnea on exertion, hypertension, left lung is nonfunctioning, left lung plication, COPD COMPARISON: None. DESCRIPTION: COMPLETE ECHOCARDIOGRAM Real-time transthoracic echocardiography with 2D, M-mode, spectral and color flow Dopplerperformed. QUALITY: Technical quality was good. LEFT VENTRICLE: Normal chamber size. Mild left ventricularhypertrophy LV EF: Global left ventricular systolic function is normal; visually estimated ejection fraction is 60 to 65%. No obvious wall motion abnormalities. DIASTOLIC: Unable to assess diastolic function. ATRIAL SEPTUM: Inadequately seen. LEFT ATRIUM: Normal chamber size. RIGHT ATRIUM: Normal chamber size. RIGHT VENTRICLE: Normal chamber size. Normal right ventricularsystolic function. TRICUSPID VALVE: Normal mobility and thickness. No stenosis with no regurgitation. Unable to assess right-sided pressures due to lack of measurable tricuspid regurgitation. MITRAL VALVE: Normal mobility and thickness. No evidence of mitralvalve stenosis. There is no mitral annular calcification. Trivial mitral regurgitation. AORTIC VALVE: Normal trileaflet appearance. No visible sclerosis.Normal leaflet mobility. No evidence of aortic valve stenosis. No aortic regurgitation. AORTIC ROOT: Normal diameter and appearance. PULMONIC VALVE: Normal thickness and mobility. No stenosis. No regurgitation. PERICARDIUM: No evidence of pericardial effusion. IVC: Collapses with inspirations. CONCLUSION: 1. Global left ventricular systolic function is normal; visually estimated ejection fraction is 60 to 65% 2. The right ventricle is poorly seen but appears normal in size andsystolic function 3. Unable to assess diastolic function 4. The left atrium is normal in size 5. No significant valvular abnormalities Adult Echocardiography Procedure Report Left Ventricle LVEDD (3.7 - 5.6 cm): 4.23 cm LVESD (2.2 - 4.0 cm): 1.96 cm LVIVS thickness (0.6 - 1.2 cm): 1.37 cm LVPW thickness (0.5 - 1.0 cm): 0.93 cm E - e': 8.19 LVOT Max Gradient: 3.64 mm[Hg] LVOT Area (cm2): 0.95 m/s Peak Velocity (LVOT): 0.95 m/s Mean Velocity (LVOT): 0.62 m/s LVOT Diameter 2.32 cm Left Atrium LA Volume Index (2D A2C): 25.57 ml/m2 Left Atrium Systolic Dimension: 3.03 cm Mitral Valve MV E to A Ratio: 0.82, 0.77 Right Ventricle Aorta AO Root Diam: 3.43 cm Aortic Valve AoV Area (Peak Yung): 3.39 cm2, 3.39 cm2 AoV Area (VTI): 3.71 cm2, 3.71 cm2 Peak Velocity(Antegrade Flow): 1.19 m/s Peak Gradient(Antegrade Flow): 5.70 mm[Hg] Mean Velocity(Antegrade Flow): 0.82 m/s Mean Gradient(Antegrade Flow): 3.10 mm[Hg] Velocity Time Integral: 26.28 cm Tricuspid Valve Pulmonic Valve Mean Gradient: 2.69 mm[Hg] Mean Velocity: 0.75 m/s Peak Velocity: 1.20 m/s, 1.14 m/s Peak Gradient: 5.20 mm[Hg], 5.81 mm[Hg] Right Atrium Dictated by: Derek Irby M.D. on 05/24/2024 at 16:52 Approved by: Derek Irby M.D. on 05/24/2024 at 16:55 Dictated By: Derek Irby M.D. Signed By:05/24/246 DD/ 54 TD/TT: Pearl Diver: us Generic External Data Provider [facility] Final Result documented in this encounter Visit Diagnoses Not on filedocumented in this encounter Care Teams Lot Worker Relationship Specialty Start Date End Date Rosa Barker MD [address] [place] [address] PCP - Devoted 09/05/22 Nikunj Yanez MD [address] [place] [address] PCP - General Family Medicine 04/09/24 Sandee Santoyo NP [address] [place] [address] Nurse Practitioner Family Medicine 04/09/24 11/21/24 documented as of this encounter
--- OUTSIDE RECORDS SUMMARY | 2025-01-30 09:27 | XMS_ITS | Clinical Summary ---
Author Organization [facility] Address [address] [place] [address] Care Team Providers Care Genetic Technologist Name Role Phone Unavailable Primary Care Provider Unavailabl e Social History Tobacco Use Types Packs/Day Years Used Date Smoking Tobacco: Never Assessed Sex and Gender Information Value Date Recorded Sex Assigned at Not on file Legal Sex Male 12:32 PM EST Gender Identity Not on file Sexual Orientation Not on file Plan of Treatment Not on file
--- OUTSIDE RECORDS SUMMARY | 2025-01-30 09:27 | XMS_ITS | Encounter Summary ---
Author Organization [facility] Address [address] [place] [address] Care Team Providers Care Senior Site Manager Name Role Phone Rosa Barker MD Unavailable Nikunj Yanez MD Primary Care Provider [phone] Sandee Santoyo NP Unavailable [phone] Encounter Details Date Type Department Care Team (Late st Contact Info) Description 04/12/2024 Abstract [facility] [address] [place] [address] Unallocated, Noms Provider, [address] [place] [address] Social History Tobacco Use Types Packs/Day Years [...] often do you attend chur ch or methodist services? More than 4 times per year [...] Recorded Patient Health Questionnaire-2 Score 0 01/31/2024 [facility] Answer Date [...] place to sleep or slept in a assisted (including now)? No 08/18/2023 Sex and Gender [...] Visit [facility] [address] [place] [address] Husam Muñoz MD [address] [place] [address] 03/19/2025 10:45 AM EDT Office Visit [facility] [address] [place] [address] Nikunj Yanez MD [address] [place] [address] documented as of this encounter Visit Diagnoses Not on filedocumented in this encounter Care Teams Senior Site Manager Relationship Specialty Start Date End Date Rosa Barker MD [address] [place] [address] PCP - Devoted 09/05/22 Nikunj Yanez MD [address] [place] [address] PCP - General Family Medicine 04/09/24 Sandee Santoyo NP [address] [place] [address] Nurse Practitioner Family Medicine 04/09/24 11/21/24 documented as of this encounter
--- OUTSIDE RECORDS SUMMARY | 2025-01-30 09:27 | XMS_ITS | Encounter Summary ---
Author Organization [facility] Address [address] [place] [address] Care Team Providers Care Photographic Plate Maker Name Role Phone Rosa Barker MD Unavailable Nikunj Yanez MD Primary Care Provider [phone] Sandee Santoyo NP Unavailable Encounter Details Date Type Department Care Team (Late st Contact Info) Description 09/10/2024 Orders Only [facility] [address] [place] [address] Husam Muñoz MD [address] [place] [address] Social History Tobacco Use Types [...] How often do you attend chur or scientology services? More than 4 times per year 06/05/2024 Do you belong to any clubs o r organizations such as denominational groups, unions, fraternal or athletic groups, or [...] Recorded Patient Health Questionnaire-2 Score 0 05/03/2024 [facility] Occupat ional Health - [...] any time in the past 12 m [facility], were you homeless or living in a [...] [facility] [address] [place] [address] Husam Muñoz MD [address] [place] [address] 03/19/2025 10:45 AM EDT Office Visit [facility] [address] [place] [address] Nikunj Yanez MD [address] [place] [address] documented as of this encounter Procedures Procedure Name Priority Date/Time Associated Diagnosis Comments TESTOSTERONE, FREE Routine 09/10/2024 11:55 AM EST PSA, TOTAL Routine 09/10/2024 11:26 AM EST HEMOGLOBIN Routine 09/10/2024 9:42 AM EST documented in this encounter Results * TESTOSTERONE, FREE (09/10/2024 11:55 AM EST) Husam Muñoz MD LAB BLOOD ORDERABLES Final Re sult * PSA (09/10/2024 11:26 AM EST) Blood Venous blood specimen / Unknown Husam Muñoz MD LAB BLOOD ORDERABLES Final Re sult * Hemoglobin (09/10/2024 9:42 AM EST) Blood Venous blood specimen / Unknown Husam Muñoz MD LAB BLOOD ORDERABLES Final Re sult documented in this encounter Visit Diagnoses Not on filedocumented in this encounter Care Teams Photographic Plate Maker Relationship Specialty Start Date End Date Rosa Barker MD [address] [email or web address] [address] [place] [address] PCP - Devoted 09/05/22 Nikunj Yanez MD [address] [place] [address] PCP - General Family Medicine 04/09/24 Sandee Santoyo NP [address] [place] [address] Nurse Practitioner Family Medicine 04/09/24 11/21/24 documented as of this encounter
--- OUTSIDE RECORDS SUMMARY | 2025-01-30 09:27 | XMS_ITS | Clinical Summary ---
Author Organization [facility] Address [address] [place] [address] Phone Care Team Providers Care Lead Ramp Agent Name Role Phone Unavailable Primary Care Provider Unavailabl e Social History Tobacco Use Types Packs/Day Years Used Date Smoking Tobacco: Never Assessed Sex and Gender Information Value Date Recorded Sex Assigned at Not on file Legal Sex Male 4:30 PM EST Gender Identity Not on file Sexual Orientation Not on file Last Filed Vital Signs Vital Sign Reading Time Taken Comments Blood Pressure 157/85 01/27/2021 11:12 AM EDT Pulse 77 01/27/2021 11:12 AM EDT Temperature 35.6 C (96.1 F) 01/27/2021 11:12 AM EDT Respiratory Rate - - Oxygen Saturation - - Inhaled Oxygen Concentration - - Weight 112 kg (248 lb) 01/27/2021 11:12 AM EDT Height - - Body Mass Index - - Plan of Treatment Not on file Medical Devices Implanted Type Area Data Entry Email Processor Device Identifier Shelf Expiration Date Model / Serial / Lot Kit, Pacing, Diaphragm, Synapse Case [id number] Implanted:Qty: 1 on 12/12/2017 by Daniel Caballero MD Implant [employer] 08/04/2018-0035 / 20-0028-12 0817-10 / -0036-12 1917-3-3 Description:Converted from [facility]. Please see archived information for full log information.
--- OUTSIDE RECORDS SUMMARY | 2025-01-30 09:27 | XMS_ITS | Encounter Summary ---
Author Organization [facility] Address [address] [place] [address] Care Team Providers Care Confidential Investigator Name Role Phone Rosa Barker MD Unavailable Nikunj Yanez MD Primary Care Provider [phone] Sandee Santoyo NP Unavailable [phone] Encounter Details Date Type Department Care Team (Late st Contact Info) Description 04/12/2024 Abstract [facility] [address] [place] [address] Unallocated, Noms Provider, [address] [place] [address] Social History Tobacco Use Types Packs/Day Years [...] often do you attend chur ch or gnosticist services? More than 4 times per year 08/18/2023 Do you belong to any clubs o r organizations such as cheondoism groups, unions, fraternal or athletic groups, or [...] Questionnaire-2 Score 0 01/31/2024 [facility] Answer Date [...] Visit [facility] [address] [place] [address] Husam Muñoz MD [address] [place] [address] 03/19/2025 10:45 AM EDT Office Visit [facility] [address] [place] [address] Nikunj Yanez MD [address] [place] [phone] documented as of this encounter Visit Diagnoses Not on filedocumented in this encounter Care Teams Confidential Investigator Relationship Specialty Start Date End Date Rosa Barker MD [address] [place] [address] PCP - Devoted 09/05/22 Nikunj Yanez MD [address] [place] [address] PCP - General Family Medicine 04/09/24 Sandee Santoyo NP [address] [place] [address] Nurse Practitioner Family Medicine 04/09/24 11/21/24 documented as of this encounter
--- OUTSIDE RECORDS SUMMARY | 2025-01-30 09:27 | XMS_ITS | Encounter Summary ---
Author Organization [facility] Address [address] [place] [address] Care Team Providers Care Snap Shearer Name Role Phone Rosa Barker MD Unavailable Nikunj Yanez MD Primary Care Provider [phone] Sandee Santoyo NP Unavailable [phone] Encounter Details Date Type Department Care Team (Late st Contact Info) Description 08/24/2024 Clinisync Result Encounter [facility] External Department Unsolicited [...] 06/05/2024 How often do you attend chur ch or religion services? More than 4 times per year 06/05/2024 Do you belong to any clubs o r organizations such as sabianist groups, unions, fraternal or athletic groups, or [...] Recorded Patient Health Questionnaire-2 Score 0 05/03/2024 [facility] - Occupational Stress Questionnaire Answer Date [...] a nursing home (including now)? No 08/18/2023 Housing Stability Vital Sign Answer Naseem e Recorded In the last 12 months, was t here a time when you were not able to pay the mortgage or rent on time? No 06/05/2024 Number of Times Moved in the Last Year Not on fi le 06/05/2024 At any time in the past 12 m [facility], were you homeless or living in a nursing home (including now)? No 06/05/2024 Sex and Gender [...] [facility] [address] [place] [address] Husam Muñoz MD [address] [place] [address] 03/19/2025 10:45 AM EDT Office Visit [facility] [address] [place] [address] Nikunj Yanez MD [address] [place] [address] documented as of this encounter Procedures Procedure Name Priority Date/Time Associated Diagnosis Comments RT PULMONARY FUNCTION TEST 08/24/2024 8:44 AM EST documented in this encounter Results * RT PULMONARY FUNCTION TEST (08/24/2024 8:44 AM EST) Anatomical Region Laterality Modality Other 08/24/2024 8:44 AM EST Narrative 08/27/2024 7:49 AM EST [address] [address] Respiratory Report Signed Patient: RIGO PETE MR#: [id number] : 1960 Acct:[id number] Age/Sex: 64 / M ADM Date: 08/24/24 Loc: CT Attending Dr: Aly Mosley D.O. Ordering Physician: Aly Mosley D.O. Date of Service: 08/24/24 Procedure(s): RT pulmonary function test Accession Number(s): [id number] cc: [facility] Test Date: 2024-08-24 Pat Name: RIGO PETE Department: Room: - Gender: Male Package Wrapper: Emily Mckenna RRT : 1960 Requested By: Aly Mosley Order Number: [id number] Reading MD: Aly Mosley Interpretive Statements Pulmonary function testing was completed [...] Electronically Signed On 08-27-2024 7:49:17 EST by Aly Mosley Dictated By: Aly Mosley D.O. Signed By: 08/27/24 0749 08/27/24 0749 DD/ 0844 TD/TT: Cash Grain Farmer: Procedure Note Radiology, Radiologist, MD - 08/27/2024 [facility] [place] [id number] Respiratory Report Signed Patient: RIGO PETE NMR#: [id number] : 1960cct:[id number] Age/Sex: 64 / MADM Date: 08/24/24 Loc: CT Attending Dr: Aly Mosley D.O. Ordering Physician: Aly Mosley D.O. Date of Service: 08/24/24 Procedure(s): RT pulmonary function test Accession Number(s): [id number] cc: [facility] Test Date: 2024-08-24 Pat Name: RIGO PETE Department: Room: - Gender: Male Package Wrapper: Emily Mckenna RRT : 1960 Requested By: Aly Mosley Order Number: [id number] Reading MD: Aly Mosley Interpretive Statements Pulmonary function testing was completed according to ATS criteria.Findings were considered accurate and reproducible. Both pre- andpost-bronchodilator values utilized for spirometry. Spirometry (based on [...] Impressions: -Spirometry suggests mild-moderate restriction, confirmed with amoderately reduced TLC. There is also a moderate diffusion capacity. PFT isconsistent with a restrictive process such as interstitial lung disease or cardiopulmonary vascular disease. There also appears to be a secondary polycythemia with Hb 17.6g/dL. When compared to prior PFT 05/16/2018, spirometry has improved, without significant change in lung volumes or diffusion capacity. Clinical correlation required. Electronically Signed On 08-27-2024 7:49:17 EST by Aly Mosley Dictated By: Aly Mosley D.O. Signed By:08/27/24 0749 08/27/24 0749 DD/ 0844 TD/TT: Cash Grain Farmer: us Generic External Data Provider [facility] Final Result documented in this encounter Visit Diagnoses Not on filedocumented in this encounter Care Teams Snap Shearer Relationship Specialty Start Date End Date Rosa Barker MD [address] [place] [address] PCP - Devoted 09/05/22 Nikunj Yanez MD [address] [place] [address] PCP - General Family Medicine 04/09/24 Sandee Santoyo NP [address] [place] [address] Nurse Practitioner Family Medicine 04/09/24 11/21/24 documented as of this encounter
--- OUTSIDE RECORDS SUMMARY | 2025-01-30 09:27 | XMS_ITS | Encounter Summary ---
Author Organization [facility] Address [address] [place] [address] Care Team Providers Care Auto Radio Mechanic Name Role Phone Rosa Barker MD Unavailable Nikunj Yanez MD Primary Care Provider [phone] Sandee Cage NP Unavailable [phone] Encounter Details Date Type Department Care Team (Late st Contact Info) Description 08/25/2024 Clinisync Result Encounter [facility] External Department Unsolicited [...] often do you attend chur ch or caodaism services? More than 4 times per year 06/05/2024 Do you belong to any clubs o r organizations such as confucianism groups, unions, fraternal or athletic groups, or [...] Recorded Patient Health Questionnaire-2 Score 0 05/03/2024 [facility] Occupat ional [facility] - Occupational Stress Questionnaire Answer Date Recorded [...] place to sleep or slept in a residential (including now)? No 08/18/2023 Housing Stability Vital Sign Answer Naseem e Recorded In the last 12 months, was t here a time when you were not able to pay the mortgage or rent on time? No 06/05/2024 Number of Times Moved in the Last Year Not on fi le 06/05/2024 At any time in the past 12 m [facility], were you homeless or living in a residential (including now)? No 06/05/2024 Sex and Gender [...] [facility] [address] [place] [address] Husam Muñoz MD [address] [place] [address] 03/19/2025 10:45 AM EDT Office Visit [facility] [address] [place] [phone] Nikunj Yanez MD [address] [place] [address] documented as of this encounter Procedures Procedure Name Priority Date/Time Associated Diagnosis Comments CT CHEST HIGH RESOLUTION 08/25/2024 6:00 AM EST documented in this encounter Results * CT CHEST HIGH RESOLUTION (08/25/2024 6:00 AM EST) Anatomical Region Laterality Modality Radiographic Jeny ging 08/25/2024 6:00 AM EST Narrative 08/25/2024 6:03 AM EST [address] [address] [address] Scan Report Signed Patient: RIGO PETE MR#: [id number] : 1960 Acct:[id number] Age/Sex: 64 / M ADM Date: 08/24/24 Loc: CT Attending Dr: Jayleen Ashford D.O. Ordering Physician: Jayleen Ashford D.O. Date of Service: 08/24/24 Procedure(s): CT chest high res Accession Number(s): [id number] cc: SANDEE CAGE [address] [address] Patient Name: RIGO PETE MRN: [id number] date: 1960 Sex: M Assigned Patient Location: CT Current Patient Location: Accession/Order Number: [id number] Exam Date: 08/24/2024 08:09 Report Date: 08/25/2024 [...] Kian Tinajero M.D. Signed By: 08/25/24602 DD/ 9 TD/TT: Shop Superintendent: Procedure Note Radiology, Radiologist, MD - 08/25/2024 [place] [address] CT Scan Report Signed Patient: RIGO PETE NMR#: [id number] : 1960cct:[id number] Age/Sex: 64 / MADM Date: 08/24/24 Loc: CT Attending Dr: Jayleen Ashford D.O. Ordering Physician: Jayleen Ashford D.O. Date of Service: 08/24/24 Procedure(s): CT chest high res Accession Number(s): [id number] cc: SANDEE CAGE [place] [id number] Patient Name: RIGO PETE MRN: [id number] date: 1960 Sex: M Assigned Patient Location: CT Current Patient Location: Accession/Order Number: [id number] Exam Date: 08/24/2024 08:09 Report Date: 08/25/2024 06:00 At the request of: JAYLEEN ASHFORD Procedure: CT chest high res EXAMINATION: CT chest high res HISTORY: Other Pleural Conditions oral COMPARISON: No relevant comparison available. TECHNIQUE: Axial images were obtained at 10 mm intervals duringinspiration and expiration in the supine and prone positions. No IV contrast given. Dose reduction techniques were achieved by using automated exposure controland/or adjustment of mA and/or kV according to patient size and/or use ofiterative reconstruction technique. FINDINGS: LUNGS: Mild emphysematous changes. Prominent curvilinear stranding opacities/scarring throughout the lungs, left greater than right. No significant peripheral fibrosis. No air trapping or large bulla. No significant bronchiectasis or mucous plugging. Elevated left hemidiaphragm withherniation of fat through the diaphragm. PLEURA: No mass, effusion, or pneumothorax. JAKY: No mass or adenopathy. MEDIASTINUM: No mass or adenopathy. HEART: No significant enlargement or pericardial effusion.. Coronaryarteries: AORTA: No aneurysm.. CHEST WALL: No mass or axillary adenopathy LIMITED ABDOMEN: No suspicious findings. Limited images of the upperabdomen. OTHER: Negative. CT/CT chest high res IMPRESSION: 1. Stable chronic interstitial changes and scarring. Mild emphysematous changes. No acute infiltrates, mucus plugging, bronchiectasis, or air trapping. 2. Grossly stable elevated left hemidiaphragm and herniation of fatthrough the diaphragm. Electronically authenticated by: KIAN TINAJERO Date: 08/25/2024 06:00 Dictated By: Kian Tinajero M.D. Signed By:08/25/24 06 DD/ 06 TD/TT: Shop Superintendent: Generic External Data Provider IMG XR PROCEDURES Final Result documented in this encounter Visit Diagnoses Not on filedocumented in this encounter Care Teams Auto Radio Mechanic Relationship Specialty Start Date End Date Rosa Barker MD [address] [place] [address] PCP - Devoted 09/05/22 Nikunj Yanez MD [address] [place] [address] PCP - General Family Medicine 04/09/24 Sandee Cage NP [address] [place] [address] Nurse Practitioner Family Medicine 04/09/24 11/21/24 documented as of this encounter
--- OUTSIDE RECORDS SUMMARY | 2025-01-30 09:27 | XMS_ITS | Encounter Summary ---
Author Organization [facility] Address [address] [place] [address] Care Team Providers Care Hearing Examiner Name Role Phone Rosa Barker MD Unavailable Shaikh CURRY Malik Primary Care Provider [phone] Nikunj Yanez MD Primary Care Provider [phone] Sadnee Santoyo NP Unavailable [phone] Encounter Details Date Type Department Care Team (Late st Contact Info) Description 04/03/2024 Clinisync Result Encounter [facility] External Department Unsolicited [...] often do you attend chur ch or yazidi services? More than 4 times per year 08/18/2023 Do you belong to any clubs o r organizations such as adventism groups, unions, fraternal or athletic groups, or [...] Recorded Patient Health Questionnaire-2 Score 0 01/31/2024 [facility] Occupat ional Health - Occupational Stress [...] [facility] [address] [place] [address] Husam Muñoz MD [address] [place] [address] 03/19/2025 10:45 AM EDT [facility] [address] [place] [address] Nikunj Yanez MD [address] [place] [address] documented as of this encounter Procedures Procedure Name Priority Date/Time Associated Diagnosis Comments MR LUMBAR SPINE WO CON 04/03/2024 4:10 PM EDT documented in this encounter Results * MR LUMBAR SPINE WO CON (04/03/2024 4:10 PM EDT) Anatomical Region Laterality Modality Other 04/03/2024 4:10 PM EDT Narrative 04/03/2024 4:13 [place] [address] Magnetic Resonance Report Signed Patient: RIGO PETE MR#: [id number] : 1960 Acct:[id number] Age/Sex: 64 / M ADM Date: 04/03/24 Loc: MRI Attending Dr: Pedro Del Real NP Ordering Physician: Pedro Del Real NP Date of Service: 04/03/24 Procedure(s): MR lumbar spine wo con Accession Number(s): [id number] cc: Shaikh Meka Malik; Pedro Del Real NP [place] [id number] Patient Name: RIGO PETE MRN: [id number] date: 1960 Sex: M Assigned Patient Location: MRI Current Patient Location: PM Accession/Order Number: [id number] Exam Date: 04/03/2024 09:09 Report Date: 04/03/2024 16:10 At the request of: PEDRO DEL REAL Procedure: MR lumbar spine wo con EXAMINATION: MR lumbar spine wo con HISTORY: [...] L4-L5 Foraminal stenosis at L3-S1 detailed above Electronically authenticated by: RADHA DIAZ Date: 04/03/2024 16:10 Dictated By: Radha Diaz M.D. Signed By: 04/03/241612 DD/ 09 TD/TT: Deckhand Shrimp Boat: Procedure Note Radiology, Radiologist, MD - 04/03/2024 [place] [address] Magnetic Resonance Report Signed Patient: RIGO PETE NMR#: [id number] : 1960cct:[id number] Age/Sex: 64 / MADM Date: 04/03/24 Loc: MRI Attending Dr: Pedro Del Real NP Ordering Physician: Pedro Del Real NP Date of Service: 04/03/24 Procedure(s): MR lumbar spine wo con Accession Number(s): [id number] cc: Shaikh Meka Malik; Pedro Del Real NP [facility] [place] [id number] Patient Name: RIGO PETE MRN: [facility]:[id number] date: 1960 Sex: M Assigned Patient Location: MRI Current Patient Location: Accession/Order Number: [id number] Exam Date: 04/03/2024 09:09 Report Date: 04/03/2024 16:10 At the request of: PEDRO DEL REAL Procedure: MR lumbar spine wo con EXAMINATION: MR lumbar spine wo con HISTORY: [...] of the lumbar vertebral bodies with no acutefracture or spondylolisthesis. Signal abnormality likely in place likelyrepresenting Modic 2 change. Bulky anterior degenerative spondylosis, severe CORD/CAUDA EQUINA: Normal caliber, contour, and signal intensity. DISC LEVELS: 12-L1: Disc space narrowing and desiccation. No disc bulge or herniation.No central or foraminal stenosis L1-L2: Disc space narrowing and desiccation. No disc bulge or herniation.No central or foraminal stenosis L2-L3: Disc space narrowing and desiccation. No disc bulge or herniation.No central or foraminal stenosis L3-L4: Disc space narrowing. Broad-based posterior moderatedisc/osteophyte complex. Moderate to severe ligamentum flavum hypertrophy and facet osteoarthropathy. Moderate central canal stenosis axial image #20.Moderate right and no left foraminal stenosis L4-L5: [...] changes resulting in moderate to severe central canalstenosis L3-L4 and L4-L5 Foraminal stenosis at L3-S1 detailed above Electronically authenticated by: RADHA DIAZ Date: 04/03/2024 16:10 Dictated By: Radha Diaz M.D. Signed By:04/03/241612 DD/ 09 TD/TT: Deckhand [employer]: Generic External Data Provider [facility] Final Result documented in this encounter Visit Diagnoses Not on filedocumented in this encounter Care Teams Hearing Examiner Relationship Specialty Start Date End Date Rosa Barker MD [address] [place] [address] [address] [place] [address] PCP - Devoted 09/05/22 Shaikh Malik MD [address] [place] [address] PCP - General Internal Medicine 11/23/23 04/08/24 Nikunj Yanez MD [address] [place] [address] PCP - General Family Medicine 04/09/24 Sandee Santoyo NP [address] [place] [address] Nurse Practitioner Family Medicine 04/09/24 11/21/24 documented as of this encounter
--- OUTSIDE RECORDS SUMMARY | 2025-01-30 09:27 | XMS_ITS | Clinical Summary ---
Author Organization [facility] Address [address] [place] [address] Care Team Providers Care Dry Transfer Man Name Role Phone Rosa Barker MD Unavailable Nikunj Yanez MD Primary Care Provider [phone] Allergies No known active allergies Medications oxyCODONE-aceta minophen (Percocet) 5-325 MG tablet Take 1 tablet by mouth every 6 (six) hours if needed Active atorvastatin (Lipitor) 20 MG tabletIndicatio ns:Hyperlipidem ia, unspecified (CMS/HCC) TAKE 1 TABLET BY MOUTH DAILY 90 tablet 1 024 Active atenolol (Tenormin) 25 MG tablet Take 25 mg by mouth Daily 024 Active albuterol 1.25 MG/3ML nebulizer solution Take 1.25 mg by nebulization every 6 (six) hours if needed for wheezing Active testosterone cypionate (Depo-Testoster one) 200 MG/ML injectionIndica tions:Hypopitui tarism (CMS/HCC) Inject 0.5 mL (100 mg) into the shoulder, thigh, or buttocks every 14 (fourteen) days 3 mL 1 025 2024 Active losartan-hydroC HLOROthiazide (Hyzaar) 50-12.5 MG tabletIndicatio ns:Primary hypertension (CMS/HCC) Take 1 tablet by mouth Daily 90 tablet 1 025 2024 Active Additional Information Patient not taking.Reported on 01/25/2025 montelukast (Singulair) 10 MG tabletIndicatio ns:Allergic rhinitis, unspecified Take 1 tablet (10 mg) by mouth Daily 90 tablet 1 025 Active clarithromycin (Biaxin) 250 MG tabletIndicatio ns:Rosacea, unspecified Take 1 tablet (250 mg) by mouth Daily 90 tablet 025 Active phentermine 37.5 MG capsuleIndicati ons:Class 1 obesity due to excess calories with serious comorbidity and body mass index (BMI) of 33.0 to 33.9 in adult Take 1 capsule (37.5 mg) by mouth in the morning. Take before meals. 30 capsule 025 2024 Active fluticasone (Flonase) 50 MCG/ACT nasal spray Administer 2 sprays into each nostril in the morning. 023 2024 Discontinued meloxicam (Mobic) 15 MG tablet Take 15 mg by mouth Daily 2024 Discontinued zonisamide (Zonegran) 50 MG capsule TAKE 1 CAPSULE BY MOUTH AT BEDTIME FOR 1 WEEK, then TAKE 2 CAPSULES AT BEDTIME THEREAFTER 2024 Discontinued phentermine 37.5 MG capsuleIndicati ons:Class 1 obesity due to excess calories without serious comorbidity with body mass index (BMI) of 31.0 to 31.9 in adult Take 1 capsule (37.5 mg) by mouth in the morning. Take before meals. Do not start before June 21, 2024. 30 capsule 2024 Discontinued(R eochenchoer) cetirizine-pseu doephedrine (ZyrTEC-D) 5-120 MG 12 hr tabletIndicatio ns:Chronic allergic rhinitis Take 1 tablet by mouth in the morning and 1 tablet before bedtime. 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 [...] month. OARRS reviewed. Continue medications as prescribed. Assessment & Plan (07/09/2024 11:52 AM EST): Pt meets qualifications of OAC 4731-07-09 for [...] have to stop TX. Pt verbalized understanding. Assessment & Plan (06/06/2024 1:52 PM EDT): Pt meets qualifications of OAC 4731-07-09 for weight loss. BMI>30 or >27 with comorbid conditions. Blood pressure WNL. Notify office with any symptoms of chest pain, dyspnea, heart palpitations, or any anxiety symptoms. F/U in 4 weeks to document weight loss. Increase physical activity as tolerated, and lower caloric intake to 1600 calories daily if no contraindications Assessment & Plan (05/21/2024 12:05 PM EDT): Discussed with patient their BMI (actual, verses [...] calories daily if no contraindications OARRS reviewed. Assessment & Plan (05/03/2024 2:20 PM EDT): Discussed with patient their BMI (actual, verses [...] approves. Will discuss again at next OV. Assessment & Plan (01/31/2024 12:20 PM EDT): Lost 20 lbs on Adapex. Will continue for another month as he does exceptionally well on it. Patient educated on risks of increased cardiovascular morbidity/mortality and poor health outcomes associated with unhealthy bodyweight. Patient counseled on lifestyle modifications, dietary restrictions. Patient encouraged to limit caloric intake and increase physical activity. Assessment & Plan (12/29/2023 11:59 AM EDT): Patient educated on risks of increased cardiovascular morbidity/mortality and poor health outcomes associated with unhealthy bodyweight. Patient counseled on lifestyle modifications, dietary restrictions. Patient encouraged to limit caloric intake and increase physical activity. Will start patient on Adapex. Patient counseled and educated on adverse effects, drug interactions and to reach out to office/pharmacy if questions or concerns related to new medications. Special screening for malignant neoplasms, colon 09/26/2023 Encounter for Medicare annual wellness exam 08/05 Assessment & Plan (01/25/2025 11:10 AM EDT): Reviewed labs. Discussed proper diet and regular aerobic exercise. Need aerobic exercise 5-6 days a week for 30 minutes at a time. Smaller portions and limit total calories. Colonoscopy every 10 years. Tetanus every 10 years. Advised not to smoke. Assessment & Plan (08/20/2023 6:32 PM EST): Patient seen today for Medicare Wellness. Reviewed [...] He was referred to GI for Colonoscopy. Dyslipidemia 08/18/2023 Assessment & Plan (05/03/2024 2:18 PM EDT): Currently taking Atorvastatin 20mg Denies myalgias. Most recent Lipid Panel WNL. Continue current regimen; Assessment & Plan (11/23/2023 9:37 AM EDT): On Lipitor. Tolerating w/o adverse effects Assessment & Plan (08/20/2023 6:27 PM EST): On Lipitor 20 mg. Check Lipid panel. Hypertensive disorder 08/18/2023 Assessment & Plan (05/03/2024 2:17 PM EDT): Currently taking no medications; All were stopped by previous provider in February d/t pt having excessively low BP readings. Referral sent to Dr. Negron- Cardiology. Pt first appt on 05/14/2024; Will continue to keep off of all medications until advised by cardiology Checks BP at home; Averages are 120's/130's; Denies orthostatic changes, dizziness, cough, shortness of breath, swelling in extremities. Assessment & Plan (01/31/2024 12:19 PM EDT): Elevated BP in office, asymptomatic. No active complaints to offer. Denies CP, SOB, palpitations. Was taken off of medications after he lost sig weight on adapex previously but had to be put back on losartan-hydrochlorothiazide. Home BP is at goal. C/w same Check BMP Assessment & Plan (12/29/2023 11:58 AM EDT): Elevated BP, asymptomatic. No active complaints to offer. Denies CP, SOB, palpitations. Was taken off of medications after he lost sig weight while on adapex but he has gained some weight back up and it seems like it is usually 130-140/90 when he checks at home. Started on losartan-hydrochlorothiazide last appointment. Reviewed Home BP - BP at goal. C/w same Assessment & Plan (11/23/2023 9:42 AM EDT): Elevated BP, asymptomatic. No active complaints to offer. Denies CP, SOB, palpitations. Was taken off of medications after he lost sig weight while on adapex but he has gained some weight back up and it seems like it is usually 130-140/90 when he checks at home. However, it is quite high/elevated in office today. On repeat measurement, it was better but still above goal. Patient will be started on low dose Losartan-hydrochlorothiazide. Asked patient to check his BP at home and maintain BP log. BMP in 2 weeks Assessment & Plan (08/20/2023 6:25 PM EST): He was taken off of his anti hypertensives after his BP was noted to be too low with patient's weight loss. He reports that he has gained about 20 lb after losing about 60 lbs with Lifestyle measures, adapex and changes in his diet. Monitor closely. If persistently above goal, will need to resume his BP meds. Chronic seasonal allergic rhinitis 08/18/2023 Assessment & Plan (05/03/2024 2:23 PM EDT): Cetirizine D and Flonase daily. Feels symptoms are well managed. Continue current regimen. Assessment & Plan (08/20/2023 6:27 PM EST): Uses cindy and Flonase. Controlled on current regimen. Encounter for screening for malignant neoplasm o f colon 08/18/2023 Assessment & Plan (08/20/2023 6:28 PM EST): Never had Colon Cancer screening. Referred to GI for Colonoscopy Primary hypogonadism in male 08/18/2023 Assessment & Plan (05/03/2024 2:22 PM EDT): Follows Endocrinology for testosterone replacement therapy. Assessment & Plan (11/23/2023 9:37 AM EDT): On testosterone replacement. Recent levels were above goal - patient following Endocrine. He will not be on testosterone for a month and will restart at lower dose afterwards. Assessment & Plan (08/20/2023 6:26 PM EST): Primary hypogonadism -recently diagnosed. On testosterone injections. Following Endocrinology. Chronic obstructive lung disease 11/24/2016 Assessment & Plan (01/25/2025 11:09 AM EDT): Follow up with pulmonology. Assessment & Plan (05/03/2024 2:23 PM EDT): Does not follow pulmonolgy; Has not had any PFT's recently. Takes Singulair. No inhalers at this time. States inhalers were too expensive. Feels his symptoms are well managed. Except in excess humidity and warmer weather. Chronic pain syndrome Assessment & Plan (05/03/2024 2:13 PM EDT): R/T severe lumbar stenosis Pain management referred to [facility] for further management. Still following with Pain Management- Dr. Stacy. Had epidural last Tuesday- feels pain is well managed since. Taking Oxycodone Q6H PRN- Pain Management prescribes. Resolved Problems Problem Noted Date Diagnosed Date Resolved Date Chronic allergic rhinitis 12/29/2023 Assessment & Plan (12/29/2023 11:58 AM EDT): Poorly controlled symptoms - has sinus pressure, nasal congestion and rhinorrhea. Switch to zyrtec-pseudo Discontinue cindy. Atrial fibrillation 09/26/2023 11/23/19 24 Weight gain 08/18/2023 01/25/2025 Assessment & Plan (08/20/2023 6:30 PM EST): Patient had lost about 60 lbs with [...] questions or concerns related to new medications. Encounters Date Type Department Care Team Description 01/25/2025 10:30 AM EDT Office Visit [facility] [address] [place] [address] Nikunj Yanez MD Encounter for Medicare annual wellness exam (Primary Dx); Primary hypertension (CMS/HCC); Class 1 obesity due to excess calories with serious comorbidity and body mass index (BMI) of 33.0 to 33.9 in adult; Chronic obstructive pulmonary disease, unspecified COPD type (CMS/HCC) 01/25/2025 Bamboo flowsheet [facility] [address] [place] [address] Nikunj Yanez MD 01/11/2025 Clinisync Result Encounter [facility] External Department Unsolicited Provider, Generic External Data 11/19/2024 Refill [facility] [address] [place] [address] Nikunj Yanez MD Allergic rhinitis, unspecified; Rosacea, unspecified 11/19/2024 Refill [facility] [address] [place] [address] Nikunj Yanez MD Primary hypertension (CMS/HCC) from Last 3 Months Family History Medical History Relation Name Comments Lymphoma Brother Brain Aneurysm Father Diabetes Mother Heart disease Mother Thyroid disease Mother Diabetes Other Heart disease Other Breast cancer Neg Hx Colon cancer Neg Hx Ovarian cancer Neg Hx Relation Name Status Comments Brother 2 Father Mother Alive Other Social History Tobacco Use Types Packs/Day Years Used Date Smoking Tobacco: Former Cigarettes Passive Smoke Exposure: Past Smokeless Tobacco: Never Tobacco Cessation:Counseling Given: Not Answered Alcohol Use Standard Drinks/Week Comments Never 0 [...] How often do you attend chur or amish services? More than 4 times per year [...] Recorded Patient Health Questionnaire-2 Score 0 01/25/2025 [facility] Occupat ional [facility] - Occupational Stress [...] place to sleep or slept in a jail (including now)? No 08/18/2023 Housing Stability Vital [...] were you homeless or living in a jail (including now)? No 06/05/2024 Sex and Gender [...] Mass Index 33.09 01/25/2025 10:24 AM EDT Plan of Treatment Upcoming Encounters Date Type Department Care Team (Late st Contact Info) Description 03/19/2025 10:30 AM EDT Office Visit [facility] [address] [place] [address] Husam Muñoz MD [address] [place] [address] 03/19/2025 10:45 AM EDT Office Visit [facility] [address] [place] [address] Nikunj Yanez MD [address] [place] [id number] Health Maintenance Due Date Last Done Comments CT Colonography 1959 FIT-DNA 1959 FIT 1959 FOBT 1959 Sigmoidoscopy 1959 Pneumococcal Vaccine: 65+ Ye ars (1 of 2 - PCV) 1978 Influenza Vaccine (Season Ended) 2025 Medicare Annual Wellness (AWV) 01/25/2026 0 01/25/2025, 08/18/2023, 08/18/2023 Colonoscopy 11/01/2033 11/01/2023, 10/31/2023 Colorectal Cancer Screening 11/01/2033 Procedures Procedure Name Priority Date/Time Associated Diagnosis Comments ALL LIPID PROFILE (FASTING) Routine 01/11/2025 8:38 AM EDT [facility] ALT Routine 01/11/2025 8:38 AM EDT [facility] AST Routine 01/11/2025 8:38 AM EDT COLONOSCOPY Routine 11/01/2023 11:53 AM EST from Last 3 Months or Most Recently Relevant to Health Maintenance Results * [facility] AST (01/11/2025 8:38 AM EDT) ASPARTATE AMINO TRANSFERASE 27 15 - 37 U/L TB 01/11/2025 8:38 AM EDT 01/11/2025 8:38 AM EDT Narrative [facility] - 01/11/2025 9:24 AM EDT Generic External Data Provider [facility] F inal Result Performing Organization Address [facility]/State/ZIP Co de Phone Number [facility] * [facility] ALT (01/11/2025 8:38 AM EDT) ALANINE AMINOTRANSFERASE 43 16 - 63 U/L TB 01/11/2025 8:38 AM EDT 01/11/2025 8:38 AM EDT Narrative [facility] - 01/11/2025 9:24 AM EDT Generic External Data Provider [facility] F inal Result Performing Organization Address [facility]/State/ZIP Co de Phone Number [facility] * ALL LIPID PROFILE (FASTING) (01/11/2025 8:38 AM EDT) TRIGLYCERIDES 45 <=150 mg/dL TBH CHOLESTEROL 96 <=200 mg/dL TB HDL CHOLESTEROL 46 40 - 60 mg/dL TB Comment: > or =60 mg/dl - LOW CARDIOVASCULAR RISK <40 mg/dl - HIGH CARDIOVASCULAR RISK LDL CHOLESTEROL CALCULATED 41.0 mg/dL TB Comment: <100 mg/dl OPTIMAL 100-129 mg/dl NEAR OR ABOVE OPTIMAL 130-159 mg/dl BORDERLINE HIGH 160-189 mg/dl HIGH >190 mg/dl VERY HIGH VLDL CHOLESTEROL 9.0 mg/dL TB CHOL HDL RATIO 2.1 TB Comment: 3.3 - 4.4 LOW RISK 4.4 - 7.1 AVERAGE RISK 7.1 - 11.0 MODERATE RISK >11.0 HIGH RISK 01/11/2025 8:38 AM EDT 01/11/2025 8:38 AM EDT Narrative [facility] - 01/11/2025 9:24 AM EDT Generic External Data Provider SINDHU martin Result Performing Organization Address City/State/[place] Co de Phone Number [facility] TB * Colonoscopy (11/01/2023 11:53 AM EST) Anatomical Region Laterality Modality Endoscopy Miguel Huffman DO ENDOSCOPY PROCEDURE ORDER JACQUI Final Result from Last 3 Months or Most Recently Relevant to Health Maintenance Insurance [employer] Care Teams Dry Transfer Man Relationship Specialty Start Date End Date Rosa Barker MD [address] [place] [address] PCP - Devoted 09/05/22 Nikunj Yanez MD [address] [place] [address] PCP - General Family Medicine 04/09/24
--- OUTSIDE RECORDS SUMMARY | 2025-01-30 09:27 | XMS_ITS | Encounter Summary ---
Author Organization [facility] Address [address] [facility] [place] [address] Care Team Providers Care Rehab Consultant Name Role Phone Rosa Barker MD Unavailable Shaikh CURRY Malik Primary Care Provider [phone] Nikunj Yanez MD Primary Care Provider [phone] Sandee Santoyo NP Unavailable [phone] Reason for Visit * Reason Comments Med Refill Encounter Details Date Type Department Care Team (Late st Contact Info) Description 02/21/2024 [facility] [address] [place] [address] Shaikh Malik MD [address] [place] [address] Rosacea, unspecified Social History Tobacco Use Types Packs/Day Years [...] How often do you attend chur or denominational services? More than 4 times per year [...] Recorded Patient Health Questionnaire-2 Score 0 01/31/2024 [facility] - [...] place to sleep or slept in a snf (including now)? No 08/18/2023 Sex and Gender Information Value Date Recorded Sex Assigned at Not on file Legal Sex Male 7:09 PM EDT Gender Identity Not on file Sexual Orientation Not on file documented as of this encounter Miscellaneous Notes * Telephone Encounter - Shaikh Helena MD - 02/21/2024 4:10 PM EDT Approving, but needs appt for additional refills. documented in this encounter Plan of Treatment Upcoming Encounters Date Type Department Care Team (Late st Contact Info) Description 03/19/2025 10:30 AM EDT Office Visit [facility] [address] [place] [address] Husam Muñoz MD [address] [place] [address] 03/19/2025 10:45 AM EDT Office Visit [facility] [address] [place] [address] Nikunj Yanez MD [address] [place] [phone] documented as of this encounter Visit Diagnoses Diagnosis Rosacea, unspecified documented in this encounter Care Teams Rehab Consultant Relationship Specialty Start Date End Date Rosa Barker MD [address] [facility] [place] [address] PCP - Devoted 09/05/22 Shaikh Malik MD [address] [place] [address] PCP - General Internal Medicine 11/23/23 04/08/24 Nikunj Yanez MD [address] [place] [id number] PCP - General Family Medicine 04/09/24 Sandee Santoyo NP [address] [place] [address] Nurse Practitioner Family Medicine 04/09/24 11/21/24 documented as of this encounter
--- NOTE | 2025-01-30 09:48 | PM.CN ---
Consult Note: HPI Data of Consult Patient: known to practice within the last 3 years Requesting Physician: Sho Galdamez NP Primary Care Provider: MANI CAGE Consult Narrative Reason for consult: f/u Narrative: Ryan Pete a pleasant 64 year old male presents for evaluation of chronic pain. Today pain 3/10 in low back, ache worse with activity. increases to 5/10 at its worst. Pain increased with twisting, pushing, pulling, standing, lifting, activity. Pain improved mildly with TENS, ibuprofen, lidocaine patches, baclofen 10mg BID PRN, and Percocet 5-325mg QID PRN. Patient denies side effects. denies loss of bowel or bladder. recently evaluated by NS who recommends intervention for lumbar stenosis, however pt is not interested in traditional back surgery. recent left L3-4 L4-5 TFESI and left SIJ injection providing 50% improvement ongoing cc:: CC: Sho Galdamez NP Review of Systems ROS Status of ROS 10 or more systems reviewed and unremarkable except as noted in history and below Musculoskeletal Reports: back pain, neck pain, extremity pain and joint pain PFSH PFSH Medical History (Updated 01/03/25 @ 09:36 by Sho Galdamez NP) COPD (chronic obstructive pulmonary disease) ?J44.9 - Chronic obstructive pulmonary disease, unspecified (ICD-10) Rheumatoid arthritis ?M06.9 - Rheumatoid arthritis, unspecified (ICD-10) Upper back pain ?M54.9 - Dorsalgia, unspecified (ICD-10) Low back pain ?M54.50 - Low back pain, unspecified (ICD-10) Uses continuous positive airway pressure (CPAP) ventilation at home ?Z99.89 - Dependence on other enabling machines and devices (ICD-10) Emphysema lung ?J43.9 - Emphysema, unspecified (ICD-10) Hypertension ?I10 - Essential (primary) hypertension (ICD-10) Surgical History Hx of cholecystectomy ?Z90.49 - Acquired absence of other specified parts of digestive tract (ICD-10) H/O cardiac catheterization ?Z98.890 - Other specified postprocedural states (ICD-10) H/O heart bypass surgery ?Z95.1 - Presence of aortocoronary bypass graft (ICD-10) History of lung surgery ?Z98.890 - Other specified postprocedural states (ICD-10) History of tonsillectomy ?Z90.89 - Acquired absence of other organs (ICD-10) H/O cervical spine surgery ?Z98.890 - Other specified postprocedural states (ICD-10) H/O carpal tunnel repair ?Z98.890 - Other specified postprocedural states (ICD-10) H/O arthroscopy of knee ?Z98.890 - Other specified postprocedural states (ICD-10) Meds Home Medications and Allergies Home Medications ?Medication ?Instructions ?Recorded ?Confirmed ?Type atorvastatin 40 mg tablet (Lipitor) 40 mg PO DAILY 02/17/23 01/14/25 History baclofen 10 mg tablet 10 mg PO BID 02/17/23 01/14/25 History lidocaine 5 % topical patch 1 patch topical DAILY 02/17/23 01/14/25 History (Lidoderm) testosterone enanthate 50 mg/0.5 50 mg subcut QWEEK 12/13/23 01/14/25 History mL subcutaneous auto-injector (Xyosted) ibuprofen 200 mg tablet 800 mg PO TID PRN pain 12/20/23 01/14/25 History cetirizine 10 mg tablet (Zyrtec) 10 mg PO BID PRN allergy symptoms 03/28/24 01/14/25 History montelukast 10 mg tablet 10 mg PO DAILY 03/28/24 01/14/25 History (Singulair) naloxone 4 mg/actuation nasal 4 mg intranasal Q2M PRN opioid 07/18/24 01/14/25 Rx spray (Narcan) overdose #1 ea oxycodone-acetaminophen 5 mg-325 1 tab PO QID PRN pain #120 tabs 10/18/24 01/14/25 Rx mg tablet (Percocet) atenolol 25 mg tablet 25 mg 12/24/24 History oxycodone-acetaminophen 5 mg-325 1 tab PO QID PRN pain #120 tabs 01/15/25 Rx mg tablet (Percocet) Allergies Allergy/AdvReac Type Severity Reaction Status Date / Time No Known Drug Allergies Allergy Verified 01/14/25 10:54 Exam Constitutional Documenting provider has reviewed patient's vital signs: yes Common normals: no apparent distress, oriented x3, healthy appearing, alert and well nourished General appearance: cooperative HENMT Common normals: normocephalic, hearing grossly normal bilaterally and moist oral mucous membranes Head and scalp: normocephalic Eye Common normals: PERRL Pupil: PERRL Neck & C-Spine Common normals: full ROM General: normal visual inspection Cervical spine: pain with cervical ROM; no cervical spine tenderness Chest Common normals: inspection of chest normal Respiratory Common normals: normal respiratory effort, no retractions and no use of accessory muscles Back & Pelvis Lumbar spine/lower back: ROM limited, pain with ROM and straight leg raise negative bilaterally Sacroiliac joints: SI joints normal Other: strength 5/5 in BLE left sij negative sho(patricks), gaenslens, thigh thrust, compression test increased low back pain with standing walking, as well as weakness to BLE. improves with sitting and forward flexion. Extremity Common normals: normal to inspection Right lower extremity: hip joint and knee joint Left lower extremity: hip joint Other: left hip: no pain with internal and external rotation right hip: mild to moderate pain with internal and external rotation left knee enlarged diameter, mild edema, pain with medial and lateral stress testing, crepitus noted on exam Neuro Common normals: oriented x3 and CN's II-XII intact bilaterally Sensorium/orientation: alert Gait (neuro): antalgic Motor exam: no movement abnormalities noted Psych Common normals: mental status grossly normal, thought process normal, cooperative, affect normal, speech normal and activity/motor behavior normal Speech: normal speech Thought process: normal thought process Results Additional Findings Additional findings: If on a controlled substance or opioids, I have checked an OARRS report on this patient and there are no aberrancies noted in the prescribing history.??If on a controlled substance or opioid a drug screen was completed and reviewed within the last year, and if there has not been a drug screen completed we ordered one today to monitor higher risk, state monitored pain medication use. As part of providing excellent, safe, comprehensive care, the following was completed at our patient's visit: 1. A medication reconciliation and review to ensure accurate knowledge of current/active medications, including asking our patients to inform us about any [id number]-[id number] medications or herbal remedies/nutritional supplements/alternative remedies. 2. A review to specifically ensure our patients have had annual screening for screening for depression, screening for tobacco use, and screening for unhealthy alcohol use. For concerning screenings had a discussion with the patient, provided patient education, and recommended follow-up with primary care provider when appropriate. If patient noted with a risk of falling, they received education on strength, gait, and balance training to prevent future risk of falling. Assessment and Plan Assessment and Plan (1) Lumbar stenosis with neurogenic claudication: Assessment and Plan: The patient has had over 3 months of moderate to severe low back and BLE pain with functional impairment and inadequate response to conservative care including NSAIDS (unless there are contraindication such as concurrent blood thinners), multiple oral or topical pain medications, and home exercise program/physical therapy.? Patient has completed >6 weeks of guided home exercise program and/or formal physical therapy program without relief of their symptoms.? I have reviewed the imaging of the lumbar spine and no red flags were identified.? The Oswestry Disability Index was completed, and the patient scored a 49%.? The patient noted the following:?? moderate to severe pain impacting ADLs, sleeping, sitting, standing, walking, social life and travel We discussed the risks and benefits of the procedure with the patient ?The procedure will be completed with fluoroscopic guidance.? (2) Sacroiliitis: (3) Lumbar degenerative disc disease: (4) Encounter for long-term opiate analgesic use: Assessment and Plan: I feel these medications are improving the patient's quality of life and allow them to tolerate activities of daily living as well as participate in recreational activity.? The patient does not report intolerable side effects. The patient is NOT opioid naive and non-pharmacologic and non-opioid treatment has failed to significantly relieve the patient's pain and improve functionality. The patient has a diagnosis that is related to a somatic or visceral pain etiology. ? ?? I reviewed with the patient the potential risks and side effects with the use of? opioid medications including but not limited to respiratory depression,? sedation, and even . I verified the patient has access to naloxone should? these effects occur. I advised the patient to avoid the use of any other? sedation substances including alcohol, THC, and benzodiazepines while? taking opioid medications due to the risk of compounding side effects and? detrimental outcomes. I reviewed the MECHANICAL ENGINEERING DIRECTOR, pain treatment agreement, urine? drug screen, and opioid start talking forms. The patient was advised to let? their family know they had Naloxone in case they would need to administer? the medication.? ?? A drug screen was completed within the last year, and no aberrancies were noted regarding their use of controlled substances. The patient understands they are subject to the terms and conditions of the pain contract that they have signed. ? ?? I have checked an OARRS report on this patient today and there are no aberrancies noted in the prescribing history.? (5) Lumbar spondylosis: (6) Osteoarthritis: (7) Muscle spasm: (8) Failed neck syndrome: Plan pt interested in proceed with L3/4 L4/5 vertiflex with MAC sedation for lumbar stenosis with NS, although he was evaluated by NS at [facility] and recommended surgical intervention he does not wish to undergo extensive back surgery due to potential risks/complications continue current medications, risks vs benefits reviewed continue HEP as tolerated f/u 1 week after vertiflex insertion to evaluate incision sites.
== END 2025-01-30 09:25 | disposition home or self-care (01) ==
LOC: PM 09:24
PROVIDERS: Visit Provider Nurse Practitioner
DX: M48.062 Spinal stenosis, lumbar region with neurogenic claudication (principal); M46.1 Sacroiliitis, not elsewhere classified; M51.369 Other intervertebral disc degeneration, lumbar region without mention of lumbar back pain or lower extremity pain; Z79.891 Long term (current) use of opiate analgesic; M47.816 Spondylosis without myelopathy or radiculopathy, lumbar region; M19.90 Unspecified osteoarthritis, unspecified site; M62.838 Other muscle spasm; M96.1 Postlaminectomy syndrome, not elsewhere classified
CPT/HCPCS: G0463

== ENCOUNTER 2025-03-01 09:52 | Outpatient (OUT) | payer OTHER, SELFPAY ==
--- OUTSIDE RECORDS SUMMARY | 2024-10-09 10:00 | XMS_ITS ---
Author Organization [facility] [place] Address [address] [place] [address] Care Team Providers Care Industrial Locomotive Operator Name Role Phone Nikunj Yanez MD Primary Care Provider Nahum silva Aly Mosley Unavailable [phone] Allergies No Known Allergies REASON FOR VISIT [...] bedtime Oral for 30 Days Active Ipratropium Salem 0.02 % 2.5 mL Inhala tion QID [...] W/U Status Risk Notes Problem Centrilobular emphysema (35433388) Centrilobular emphysema (J43.2) Active confirmed Vital Signs Weight 241.2 lbs 10/09/2024 Height 72 in 10/09/2024 Blood pressure systolic 137 mm Hg 10/09/19 25 Blood pressure diastolic 78 mm Hg 025 Temperature 96.8 degrees Fahrenheit 10/09/19 25 Heart Rate 77 /min 10/09/2024 Respiratory Rate 18 /min 10/09/2024 BMI 32.71 kg/m2 10/09/2024 Oximetry 93 % 10/09/2024 Encounters Encounter Location Date Provider Diagnosis Pulmonary Medicine [address] [address] 10/09/2024 Aly Mosley 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 He states that [facility] did not want to pay for rehab [...] (ICD-10 - I25.10) Mild RCA disease on [facility] He does not qualify for any supplemental [...] 3 mL Inhalation Once a day Ipratropium Salem 0.02 % 2.5 mL Inhala tion QID [...] other than pulmonary rehabilitation. He states that [facility] did not want to pay for rehab [...] (coronary artery disease) Mild RCA disease on [facility] He does not qualify for any supplemental [...] Name:Aly Mosley, 01/14/2026 10:00:00 AM, [address] [place], [address], Procedure Notes * Category Sub-Category Detail Notes PFT Data: PFT 08/24/2024 - [facility]-FEV1/FVC: 81%-FEV1: 75%-FVC: 70%-Bronchodilator response: None-RV: 69%-T%-DLCO: 65%PFT 05/16/2018 - [facility]-FEV1/FVC: 77%-FEV1: 57%-FVC: 56%-IPT90-47%: 58%-Bronchodilator response: None-RV: 87%-T%-DLCO: 66%PFT 03/14/2017 - [facility]-FEV1/FVC: 78%-FEV1: 52%-FVC: 51%-LGD55-40%: 52% -Bronchodilator response: Positive in ZJC67-15% -RV: 118%-T%-DLCO: 45%PFT 12/05/2014 - [facility]-FEV1/FVC: 81%-FEV1: 60%-FVC: 56%-EBC64-79%: 73% -Bronchodilator response: None -RV: 100%-T%-DLCO: 66% Progress Notes * Ryan PETE NDOB: (64 yo M)Acc No.[id number]:10/09/2024 Follow Up Patient: Mando Ryan SWEENEY Provider: Sherri Mosley DO :1960 A ge:64 Y S ex:Male Date:10/09/2024 Address:[address] [place], [place] [id number] Pcp:LACHELLE VILLALOBOS Check In:01:57 PM ESTCheck O [...] Brovana. Patient is under the care of [facility] Cardiology. * ROS: G eneral/Constitutional: [...] artery disease) Notes: Mild RCA disease on [facility] He does not qualify for any supplemental [...] Inhalation, Once a day; S tart Ipratropium Salem Solution, 0.02 %, 2.5 mL, Inhalation, QID, 30 days, 120 each, Refills 12. * Procedures: P FT: Data: PFT 08/24/2024 - [facility] -FEV1/FVC: 81% -FEV1: 75% -FVC: 70% -Bronchodilator response: None -RV: 69% -T% -DLCO: 65% PFT 05/16/2018 - [facility] -FEV1/FVC: 77% -FEV1: 57% -FVC: 56% -JBB20-44%: 58% -Bronchodilator response: None -RV: 87% -T% -DLCO: 66% PFT 03/14/2017 - [facility] -FEV1/FVC: 78% -FEV1: 52% -FVC: 51% -CXL93-30%: 52% -Bronchodilator response: Positive in SFX42-26% -RV: 118% -T% -DLCO: 45% PFT 12/05/2014 - [facility] -FEV1/FVC: 81% -FEV1: 60% -FVC: 56% -IUB73-78%: 73% -Bronchodilator response: None -RV: 100% -T% [...] Reason: D rug declined by patient B [employer]AN Above Normal BMI Follow-up D ietary management education, guidance, and counseling * Follow Up: 3 Months (Reason: COPD, paralyzed hemidiaphragm) * * Sign off status: Completed Visit Status: C HK (Check Out) true * Provider: Sherri Mosley DO Date: 0 10/09/2024 Generated for Christa herbert/Rodrigo/Letyitting on: 0 03/01/2025 09:55 AM EDT History and Physical Notes * [...] Brovana. Patient is under the care of [facility] Cardiology. Examination Category Sub-Category Detail Notes Category Not es Exam GENERAL APPEARANCE: Appears stated age Skin Normal Mouth [place] and moist. Poor dentition Trachea Midline Chest [...]
--- OUTSIDE RECORDS SUMMARY | 2024-10-09 10:22 | XMS_ITS ---
Author Organization [facility] [place] Address [address] [place] [address] Care Team Providers Care Social Worker School Name Role Phone Nikunj Yanez MD Primary Care Provider Unavailab Aly Lind Unavailable [phone] REASON FOR VISIT Yupelri Rx Encounters Encounter Location Date Provider Diagnosis Pulmonary Medicine [place] [address] [place] [address] 10/09/2024 Alykatharina Munroe Plan Of Treatment Next Appt Details Provider Name:Aly Mosley, 01/14/2026 10:00:00 AM, [address] [place], [address], Progress Notes * Ryan PETE NDOB: (64 yo M)Acc No.[id number]:10/09/2024 Patient: Mando Ryan SWEENEY :1960 A ge:64 Y S ex:Male Address:[address] [place], [address] * true * Date: Generated for Printi ng/Falyudmilag/eTransmitting on: 0 03/01/2025 09:54 AM EDT
--- OUTSIDE RECORDS SUMMARY | 2024-10-23 06:00 | XMS_ITS ---
Author Organization [facility] Address [address] [place] [address] Care Team Providers Care Real Estate Clerk Name Role Phone Obdulia Linda Primary Care Provider Dakota Bonilla Unavailable [phone] REASON FOR VISIT EXT-45 MIN Encounters Encounter Location Date Provider [address] [facility] [place] [address] 10/23/2024 Dakota Bonilla Plan Of Treatment No Information Progress Notes * IRGO JEFFERSONDOB:05/1960 (64 yo M)Acc No.[id number]:10/23/2024 Patient: Mando BARROSRIGO TRAN Provider: Diana Bonilla DDS :1960 A ge:64 Y S ex:Male Date:10/23/2024 Address:[address] [place] [address] [place], [id number] Pcp:Obdulia Mercado Subjective: * Chief Complaints: * 1 . EXT-45 MIN. * Medical History: Objective: * Vitals: Assessment: Plan: * Treatment: * Images: * Electronic signature of Abundio Bonilla DDS on 03/01/2025 at 09:55 AM EDT Sign off status: Pending * Provider: Diana Bonilla DDS Date: 10/23/2024 Generated for Ankuri ng/Falyudmilag/eTransmitting on: 0 03/01/2025 09:55 AM EDT
--- OUTSIDE RECORDS SUMMARY | 2024-10-30 04:30 | XMS_ITS ---
Author Organization [facility] Address [address] [place] [address] Care Team Providers Care Dental Surgeon Name Role Phone Obdulia Linda Primary Care Provider Dakota Bonilla Unavailable [phone] REASON FOR VISIT EXT-45 MINUTES Encounters Encounter Location Date Provider Diagnosis [address] [place] [address] 10/30/2024 Dakota Bonilla Plan Of Treatment No Information Progress Notes * RIGO JEFFERSONDOB:05/1960 (64 yo M)Acc No.[id number]:10/30/2024 Patient: Mando BARROSRIGO TRAN Provider: Diana Bonilla DDS :1960 A ge:64 Y S ex:Male Date:10/30/2024 Address:[address] [place] [address] [facility]-[id number] Pcp:Obdulia Mercado Subjective: * Chief Complaints: * 1 . EXT-45 MINUTES. * Medical History: Objective: * Vitals: Assessment: Plan: * Treatment: * Images: * Electronic signature of Abundio Bonilla DDS on 03/01/2025 at 09:55 AM EDT Sign off status: Pending * Provider: Diana Bonilla DDS Date: 10/30/2024 Generated for Ankuri ng/Falyudmilag/eTransmitting on: 0 03/01/2025 09:55 AM EDT
--- OUTSIDE RECORDS SUMMARY | 2024-11-06 04:00 | XMS_ITS ---
Author Organization [facility] Address [address] [place] [address] Care Team Providers Care National Business Director Name Role Phone Obdulia Linda Primary Care Provider Dakota Bonilla Unavailable [phone] REASON FOR VISIT EXT-45 MINUTES Encounters Encounter Location Date Provider Diagnosis [address] [place] [address] 11/06/2024 Dakota Bonilla Plan Of Treatment No Information Progress Notes * RIGO JEFFERSONDOB:05/1960 (64 yo M)Acc No.[id number]:11/06/2024 Patient: Mando BARROSRIGO TRAN Provider: Diana Bonilla DDS :1960 A ge:64 Y S ex:Male Date:11/06/2024 Address:[address] [place] [address] [facility]-[id number] Pcp:Obdulia Mercado Subjective: * Chief Complaints: * 1 . EXT-45 MINUTES. * Medical History: Objective: * Vitals: Assessment: Plan: * Treatment: * Images: * Electronic signature of Abundio Bonilla DDS on 03/01/2025 at 09:54 AM EDT Sign off status: Pending * Provider: Diana Bonilla DDS Date: 11/06/2024 Generated for Ankuri ng/Falyudmilag/eTransmitting on: 03/01/2025 09:54 AM EDT
--- OUTSIDE RECORDS SUMMARY | 2025-01-08 05:30 | XMS_ITS ---
Author Organization [facility] in [place] Address [address] [place] [address] Care Team Providers Care Machine Maintenance Technician Name Role Phone Nikunj Yanez MD Primary Care Provider Nahum silva Aly Mosley Unavailable [phone] Allergies No Known Allergies REASON FOR VISIT 3m F/U COPD/Diaphragm paralysis Medications Medication SIG (Take, Route, Frequency, Duration) Notes Start Date End Date Status Brovana 15 MCG/2ML 2mL Inhalation BID f or 30 days Active Testosterone Cypionate 200 MG/ML INJECT ONE-HALF ml INTRAMUSCULARLY EVERY 2 (TWO) weeks Intramuscular for 84 Days Active Ipratropium Everton 0.02 % 2.5mL Inhalat ion QID for 30 days 10/09/2024 Active Losartan Potassium-HCTZ 50-12.5 MG TAKE 1 TABLET BY MOUTH DAILY Oral for 90 Days Active Montelukast Sodium 10 MG TAKE 1 TABLET B Y MOUTH DAILY Oral for 90 Days Active oxyCODONE-Acetaminophen 5-325 MG Oral for 30 Days Active Fluticasone Propionate 50 MCG/ACT 1 spray in each nostril Nasally Twice a day Active Clarithromycin 250 MG Oral for 90 Days Active Atenolol 25 MG TAKE 1 TABLET BY NAYLA TH DAILY Oral for 90 Days Active Atorvastatin Calcium 40 MG 1 tablet Oral ly Once a day for 90 days Active Cetirizine-Pseudoephedrine ER 5-120 MG TAKE 1 TABLET BY MOUTH IN THE MORNING and ONE TABLET BY MOUTH BEFORE bedtime Oral for 30 Days Active Allergy Relief/Nasal Decongest 5-120 MG TAKE 1 TABLET BY MOUTH DAILY Oral for 30 Days Active Social History Tobacco Use: Social [...] Problem Status W/U Status Risk Notes Problem Pulmonary fibrosis (47227199) Pulmonary fibrosis, unspecified (J84.10) Active confirmed Vital Signs Weight 247.0 lbs 01/08/2025 Height 72 in 01/08/2025 Blood pressure systolic 141 mm Hg 01/09/20 25 Blood pressure diastolic 90 mm Hg 025 Temperature 96.8 degrees Fahrenheit 01/09/20 25 Heart Rate 73 /min 01/08/2025 Respiratory Rate 18 /min 01/08/2025 BMI 33.5 kg/m2 01/08/2025 Oximetry 95 % 01/08/2025 Procedures Procedure Date Ordered Date Performed Result Body Sit e Pulmonary Rehabilitation 01/08/2025 N/A Encounters Encounter Location Date Provider Diagnosis Pulmonary Medicine [address] [address] 01/08/2025 Alykatharina Mosley Hemidiaphragm paraly sis J98.6 ; Centrilobular emphysema J43.2 ; Pulmonary fibrosis, unspecified J84.10 ; Restrictive lung disease J98.4 ; [place] (obstructive sleep apnea) G47.33 ; CAD (coronary artery disease) I25.10 and History of tobacco abuse Z87.891 Assessments Encounter Date Diagnosis (ICD Code) Assessment Notes Treatment Notes Treatment Clinical Notes Section Notes 01/08/2025 Hemidiaphragm paralysis (ICD-10 - J98.6) History: ~2001: 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 States [employer] will not pay for pulmonary rehab phase 2. Explained I have nothing further available to offer other than pulmonary rehabilitation. I suggested phase 3 which has a nominal fee ($5/session). He voiced he is able to afford that. I walked patient over to pulmonary rehabilitation to discuss referral. He has several diagnoses (paralysis, restrictive lung disease, fibrosis, emphysema), but FEV1 improved to 75% which difficult to qualify for phase 2 based on this. He voiced he is fine enrolling in phase 3. Completing paperwork for phase 3. Patient encouraged to continue with the outlined program. Otherwise, F/U 1 year. 01/08/2025 Centrilobular emphysema (ICD-10 - J43.2) Lpgh-mz-dxhg performed today regarding continued need for nebulizer, nebulizer supplies, and nebulized medication. He has decreased inspiratory effort d/t hemidiaphragm paraylsis; lacks negative inspiratory force (NIF) required for traditional inhalers. He is on Brovana. Yupelri not covered. Addition of ipratropium helped, but d/t its short half-life, its effect wears off quickly. He is only using the nebs once daily on a regular basis, sometimes he gets the second dose in a day. Explained ipratropium is dosed 4 times a day and Brovana twice a day. He was encouraged to attempt to use the nebs at this frequency for maximum benefit. Addition of nebulized budesonide unlikely to have great additional benefit; Ohtuvayre may be better than ICS, but once again coverage of this is highly questionable given his [employer] insurance. 01/08/2025 Pulmonary fibrosis, unspecified (ICD-10 - J84.10) Chest CT 09/25/2021 noted scattered chronic interstitial changes and fibrosis. F/U HRCT 08/24/2024 shows scattered scarring, L > R, but not true/typical pulmonary fibrosis such as honeycombing. TLC & DLCO appear stable, but in conjunction with his other pulmonary issues, this is contributing to his symptoms. Encouraged pulmonary rehabilitation. 01/08/2025 Restrictive lung disease (ICD-10 - J98.4) Secondary to paralyzed left hemidiaphragm. Pulmonary rehabilitation phase 3 ordered. 01/08/2025 [place] (obstructive sleep apnea) (ICD-10 - G47.33) PSG 01/15/2015: AHI 24 PAP titration 02/24/2015: Did not tolerate CPAP, changed to BiPAP Patient tried and failed CPAP and BiPAP therapy - could not tolerate it. 01/08/2025 CAD (coronary artery disease) (ICD-10 - I25.10) Mild RCA disease on [facility] He does not qualify for any supplemental O2 at this time. 01/08/2025 History of tobacco abuse (ICD-10 - Z87.891) 1-2ppd x 30 years, quit 2009. The patient would have only 1 year of eligibility left for LDCT program as it has been 14 years since smoking cessation, and has I am ordering HRCT to investigate the pulmonary fibrosis, he will therefore not meet current LDCT screening criteria. 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 States [employer] will not pay for pulmonary rehab phase 2. Explained I have nothing further available to offer other than pulmonary rehabilitation. I suggested phase 3 which has a nominal fee ($5/session). He voiced he is able to afford that. I walked patient over to pulmonary rehabilitation to discuss referral. He has several diagnoses (paralysis, restrictive lung disease, fibrosis, emphysema), but FEV1 improved to 75% which difficult to qualify for phase 2 based on this. He voiced he is fine enrolling in phase 3. Completing paperwork for phase 3. Patient encouraged to continue with the outlined program. Otherwise, F/U 1 year. Centrilobular emphysema Oucn-rg-jliw performed today regarding continued need for nebulizer, nebulizer supplies, and nebulized medication. He has decreased inspiratory effort d/t hemidiaphragm paraylsis; lacks negative inspiratory force (NIF) required for traditional inhalers. He is on Brovana. Yupelri not covered. Addition of ipratropium helped, but d/t its short half-life, its effect wears off quickly. He is only using the nebs once daily on a regular basis, sometimes he gets the second dose in a day. Explained ipratropium is dosed 4 times a day and Brovana twice a day. He was encouraged to attempt to use the nebs at this frequency for maximum benefit. Addition of nebulized budesonide unlikely to have great additional benefit; Ohtuvayre may be better than ICS, but once again coverage of this is highly questionable given his [employer] insurance. Pulmonary fibrosis, unspecified Chest CT 09/25/2021 noted scattered chronic interstitial changes and fibrosis. F/U HRCT 08/24/2024 shows scattered scarring, L > R, but not true/typical pulmonary fibrosis such as honeycombing. TLC & DLCO appear stable, but in conjunction with his other pulmonary issues, this is contributing to his symptoms. Encouraged pulmonary rehabilitation. Restrictive lung disease Secondary to paralyzed left hemidiaphragm. Pulmonary rehabilitation phase 3 ordered. [place] (obstructive sleep apnea) PSG 01/15/2015: AHI 24 PAP titration 02/24/2015: Did not tolerate CPAP, changed to BiPAP Patient tried and failed CPAP and BiPAP therapy - could not tolerate it. CAD (coronary artery disease) Mild RCA disease on [facility] He does not qualify for any [...] therefore not meet current LDCT screening criteria. Other 2020 Pending Test Test Name Order Date Pulmonary Rehabilitation 01/08/2025 Next Appt Details Follow Up: 1 Year, Reason: D iaphragm paralysis, COPD Provider Name:Aly Mosley, 01/14/2026 10:00:00 AM, [address] [place], [address], Procedure Notes * Category Sub-Category Detail Notes PFT Data: PFT 08/24/2024 - [facility]-FEV1/FVC: 81%-FEV1: 75%-FVC: 70%-Bronchodilator response: None-RV: 69%-T%-DLCO: 65%PFT 05/16/2018 - [facility]-FEV1/FVC: 77%-FEV1: 57%-FVC: 56%-JHD55-77%: 58%-Bronchodilator response: None-RV: 87%-T%-DLCO: 66%PFT 03/14/2017 - [facility]-FEV1/FVC: 78%-FEV1: 52%-FVC: 51%-WRG80-70%: 52% -Bronchodilator response: Positive in CYL84-87% -RV: 118%-T%-DLCO: 45%PFT 12/05/2014 - [facility]-FEV1/FVC: 81%-FEV1: 60%-FVC: 56%-SUC43-77%: 73% -Bronchodilator response: None -RV: 100%-T%-DLCO: 66% Progress Notes * Ryan PETE NDOB: (64 yo M)Acc No.[id number]:01/08/2025 Follow Up Patient: Ryan TALAMANTES N Provider: Sherri Mosley DO :1960 A ge:64 Y S ex:Male Date:01/08/2025 Address:[address] [place], [place] [id number] Pcp:Nikunj Yanez MD Check In:09:26 AM ESTCheck O ut:09:49 AM EST Subjective: * Chief Complaints: * 3 m F/U COPD/Diaphragm paralysis * HPI: G eneral: Patient states he is doing about the same as last visit. Using Brovana and ipratropium nebs - with his schedule, he states he is able to get 1 treatment in a day guaranteed, but tries to get 2. Discussed that ipratropium lasts ~4-6 hours, so its effect can wear off if he does not keep up with it QID. He said he can tell. Using ipratropium because Yupelri was not covered. [employer] will not cover pulmonary rehabilitation he states.? MA Intake Comments:. Patient presents for follow up for COPD. Patient was referred to Pulmonary Rehab but did not start rehab due to the cost. Patient complains of SOB with exertion. Patient is using Brovana daily with benefit. Patient denies tobacco use. Patient is under the care of [facility] Cardiology. * ROS: G eneral/Constitutional: [...] enies. P alpitations d enies. R espiratory: Pleurisy D enies. D yspnea w ith activity [...] Anxiety d enies. * Active Problem List I25.10 CAD (coronary artery disease) Modified On:08/08/2024U Status:confirmed G47.33 [place] (obstructive sle ep apnea) Modified On:08/08/2024U Status:confirmed J98.6 Hemidiaphragm paraly sis Modified On:08/08/2024U Status:confirmed Z87.891 History of tobacco a buse Modified On:08/08/2024U Status:confirmed Z86.16 History of COVID-19 Modified On:08/08/2024U Status:confirmed J43.2 Centrilobular emphys kaela Modified On:10/09/2024 Status:confirmed J44.9 Chronic obstructive pulmonary disease, unspecified Modified On:08/27/2024U Status:confirmed J84.10 Pulmonary fibrosis, unspecified Modified On:01/08/2025U Status:confirmed * Medical History: * Surgical History: [...] in each nostril Nasally Twice a day Ipratropium Everton 0.02 % Solution 2.5 mL Inhalation QID Losartan Potassium-HCTZ 50-12.5 MG Tablet TAKE 1 TABLET BY MOUTH DAILY Oral Montelukast Sodium 10 MG Tablet TAKE 1 TABLET BY MOUTH DAILY Oral oxyCODONE-Acetaminophen 5-325 MG Tablet Oral Testosterone Cypionate 200 MG/ML Solution INJECT [...] each nostril Nasally Twice a day Taking Ipratropium Everton 0.02 % Solution 2.5 mL Inhalation QID Taking Losartan Potassium-HCTZ 50-12.5 MG Tablet TAKE 1 TABLET BY MOUTH DAILY Oral Taking Montelukast Sodium 10 MG Tablet TAKE 1 TABLET BY MOUTH DAILY Oral Taking oxyCODONE-Acetaminophen 5-325 MG Tablet Oral Taking Testosterone Cypionate 200 MG/ML Solution INJECT ONE-HALF ml INTRAMUSCULARLY EVERY 2 (TWO) weeks Intramuscular DiscontinuedMeloxicam 15 MG Tablet TAKE 1 TABLET BY MOUTH DAILY Oral Phentermine HCl 37.5 MG Tablet TAKE 1 TABLET BY MOUTH IN THE MORNING BEFORE MEALS Oral Medication List reviewed and reconciled with the patientDiscontinued Meloxicam 15 MG Tablet TAKE 1 TABLET BY MOUTH DAILY Oral Discontinued Phentermine HCl 37.5 MG Tablet TAKE 1 TABLET BY MOUTH IN THE MORNING BEFORE MEALS Oral Medication List reviewed and reconciled with the patient * Allergies: N .K.D.A.no[Allergies Verified] Objective: * Vitals: W t:247.0lbs, Ht: 72 in, BP:sittin/90mm Hg, Temp:Forehead:96.8F, HR:73/min, RR:18/min, BMI:33.5Index, Oxygen sat %:Room Air:95%, Ht-cm: 182.88 cm, Wt-k.04 kg. * Examination: E xam: GENERAL APPEARANCE: A ppears stated age. Skin N ormal. Mouth P ink and moist. Poor dentition. Oropharynx M allampati Class III. Trachea M idline. Chest N ormal. Respiratory Normal M ovements, E ffort N ormal. Auscultation U nchanged from last visit: Diminished/absent breath sounds in the left lung base; right lung remains clear. 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 States [employer] will not pay for pulmonary rehab phase 2. Explained I have nothing further available to offer other than pulmonary rehabilitation. I suggested phase 3 which has a nominal fee ($5/session). He voiced he is able to afford that. I walked patient over to pulmonary rehabilitation to discuss referral. He has several diagnoses (paralysis, restrictive lung disease, fibrosis, emphysema), but FEV1 improved to 75% which difficult to qualify for phase 2 based on this. He voiced he is fine enrolling in phase 3. Completing paperwork for phase 3. Patient encouraged to continue with the outlined program. Otherwise, F/U 1 year. ?2.?Centrilobular emphysema? Continue Brovana Nebulization Solution, 15 MCG/2ML, 2mL, Inhalation, BID, 30 days, 120 ML, Refills 12;?Continue Ipratropium Everton Solution, 0.02 %, 2.5mL, Inhalation, QID, 30 days, 300 ML, Refills 12.?Procedure: Pulmonary Rehabilitation* Phase 3 (if phase 2 not cove red by [employer]) Notes: Teso-xq-lmsz performed today regarding continued need for nebulizer, nebulizer supplies, and nebulized medication. He has decreased inspiratory effort d/t hemidiaphragm paraylsis; lacks negative inspiratory force (NIF) required for traditional inhalers. He is on Brovana. Yupelri not covered. Addition of ipratropium helped, but d/t its short half-life, its effect wears off quickly. He is only using the nebs once daily on a regular basis, sometimes he gets the second dose in a day. Explained ipratropium is dosed 4 times a day and Brovana twice a day. He was encouraged to attempt to use the nebsat this frequency for maximum benefit. Addition of nebulized budesonide unlikely to have great addit ional benefit; Ohtuvayre may be better than ICS, but once again coverage of this is highly questionable given his [employer] insurance.??3.?Pulmonary fibrosis, unspecified?Procedure: Pulmonary Rehabilitation* Phase 3 (if phase 2 not cove red by [employer]) Notes: Chest CT 09/25/2021 noted scattered chronic interstitial changes and fibrosis. F/U HRCT 08/24/2024 shows scattered scarring, L > R, but not true/typical pulmonary fibrosis such as honeycombing. TLC& DLCO appear stable, but in conjunction with his other pulmonary issues, this is contributing to his symptoms. Encouraged pulmonary rehabilitation. ??4.?Restrictive lung disease?Procedure: Pulmonary Rehabilitation* Phase 3 (if phase 2 not cove red by [employer]) Notes: Secondary to paralyzed left hemidiaphragm. Pulmonary rehabilitation phase 3 ordered.??5.?[place] (obstructive sleep apnea)? Notes: PSG 01/15/2015: AHI 24 PAP titration 02/24/2015: Did not tolerate CPAP, changed to BiPAP Patient tried and failed CPAP and BiPAP therapy - could not tolerate it.??6.?CAD (coronary artery disease)? Notes: Mild RCA disease on [facility] He does not qualify for any supplemental O2 at this time.??7.?History of tobacco abuse? Notes: 1-2ppd x 30 years, quit 2009. The patient would have only 1 year of eligibility left for LDCT program as it has been 14 years since smoking cessation, and has I am ordering HRCT to investigate the pulmonary fibrosis, he will therefore not meet current LDCT screening criteria.??8.?Others? Notes: 2020?? * Procedures: P FT: Data: PFT 08/24/2024 - [facility] -FEV1/FVC: 81% -FEV1: 75% -FVC: 70% -Bronchodilator response: None -RV: 69% -T% -DLCO: 65% PFT 05/16/2018 - [facility] -FEV1/FVC: 77% -FEV1: 57% -FVC: 56% -JCQ57-89%: 58% -Bronchodilator response: None -RV: 87% -T% -DLCO: 66% PFT 03/14/2017 - [facility] -FEV1/FVC: 78% -FEV1: 52% -FVC: 51% -JGA80-53%: 52% -Bronchodilator response: Positive in WSU49-11% -RV: 118% -T% -DLCO: 45% PFT 12/05/2014 - [facility] -FEV1/FVC: 81% -FEV1: 60% -FVC: 56% -CPX89-73%: 73% -Bronchodilator response: None -RV: 100% -T% [...] tobacco use and urged to quit. 0 01/08/2025 Former Education on smoking effects provided?01/08/2025 Former F RICH EXCLUSION Reason: P atient Reason refused/declined Type of Patient Reason: D rug declined by patient B DE ACTION PLAN Above Normal BMI Follow-up D ietary management education, guidance, and counseling * Follow Up: 1 Year (Reason: Diaphragm paralysis, COPD) * * Sign off status: Completed Visit Status: C HK (Check Out) true * Provider: Sherri Mosley DO Date: 0 01/08/2025 Generated for Christa herbert/Rodrigo/Letyitting on: 0 03/01/2025 09:54 AM EDT History and Physical Notes * HPI (History of Present Illness) Category Sub-Category Detail Notes Category Not es General Patient present s for follow up for COPD. Patient was referred to Pulmonary Rehab but did not start rehab due to the cost. Patient complains of SOB with exertion. Patient is using Brovana daily with benefit. Patient denies tobacco use. Patient is under the care of [facility] Cardiology. Examination Category Sub-Category Detail Notes Category Not es Exam GENERAL APPEARANCE: Appears stated age Skin Normal Mouth [place] and moist. Poor dentition Trachea Midline Chest Normal Ribs Sternum Scar Supraclavicular (Virchow) node Respiratory Normal Movements, Ef fort Normal Auscultation Unchanged from last visit: Diminished/absent breath sounds in the left lung base; right lung remains clear Percussion Mild dullness in the left lower lung region Cardiac Regular rate and rhy thm Gastrointestinal Normal Vascular No edema Musculoskeletal Normal posture Neurological Focal, intact Psychiatric Alert and oriented x 3 Mentation/Cognition Normal Oropharynx Mallampati Class III
--- OUTSIDE RECORDS SUMMARY | 2025-03-01 09:54 | XMS_ITS | Patient Health Record ---
Author Organization [facility] in [place] Address [address] [place] [address] Care Team Providers Care Cigarette Machine Operator Name Role Phone Nikunj Yanez MD Primary Care Provider Jayleen Tuttle Unavailable [phone] Allergies No Known Allergies Results Component Value Reference Range Notes CT Chest High Resolution Reviewed date:08/27/2024 08:00:08 AM Interpretation: Performing Lab: Notes/Report: RT pulmonary function test Reviewed date:08/27/2024 08:03:39 AM Interpretation: Performing Lab: Notes/Report: Source Facility: [place] [address] Respiratory Report Signed Patient: RIGO PETE MR#: [id number] : 1960 Acct:[id number] Age/Sex: 64 / M ADM Date: 08/24/24 Loc: CT Attending Dr: Jayleen Ashford D.O. Ordering Physician: Jayleen Ashford D.O. Date of Service: 08/24/24 Procedure(s): RT pulmonary function test Accession Number(s): [id number] cc: [facility] Test Date: 2024-08-24 Pat Name: RIGO PETE Department: Room: - Gender: Male Emr Specialist: Emily Mckenna RRT : 1960 Requested By: Jayleen Ashford Order Number: [id number] Vladimir MD: Jayleen Ashford Interpretive Statements Pulmonary function [...] Jayleen Ashford D.O. Signed By: 08/27/24 0749 08/27/24 0749 DD/ 0844 TD/TT: Elephant Keeper: [place] [address] Respiratory Report Signed Patient: RIGO PETE MR#: [id number] : 1960 Acct:[id number] Age/Sex: 64 / M ADM Date: 08/24/24 Loc: CT Attending Dr: Jayleen Ashford D.O. Ordering Physician: Jayleen Ashford D.O. Date of Service: 08/24/24 Procedure(s): RT pulmonary function test Accession Number(s): [id number] cc: [facility] Test Date: 2024-08-24 Pat Name: RIGO PETE Department: 73 Room: - Gender: Male Technic pilar: Emily Mckenna, CLAIM INSPECTOR : 1960 Requ ested By: Jayleen Ashford Order Number: [id number] Reading MD: Jayleen Ashford Interpretive Statements Pulmonary [...] Jayleen Ashford D.O. Signed By: 08/27/24 0749 08/27/24 0749 DD/ 0844 TD/TT: Elephant Keeper: CT chest high res Reviewed date:08/27/2024 07:11:23 AM Interpretation: Performing Lab: Notes/Report: Source Facility: [place] [address] [place] [address] CT Scan Report Signed Patient: RIGO PETE MR#: [id number] : 1960 Acct:[id number] Age/Sex: 64 / M ADM Date: 08/24/24 Loc: CT Attending Dr: Jayleen Ashford D.O. Ordering Physician: Jayleen Ashford D.O. Date of Service: 08/24/24 Procedure(s): CT chest high res Accession Number(s): [id number] cc: MANI CAGE [address] [id number] Patient Name: RIGO PETE MRN: [facility]:[id number] date: 1960 Sex: M Assigned Patient Location: CT Current Patient Location: Accession/Order Number: [id number] Exam Date: 08/24/2024 08:09 Report Date: 08/25/2024 [...] M.D. Signed By: 08/25/24602 DD/ 0600 TD/TT: Elephant Keeper: [address] [address] [address] Scan Report Signed Patient: RIGO PETE MR#: [id number] : 1960 Acct:[id number] Age/Sex: 64 / M ADM Date: 08/24/24 Loc: CT Attending Dr: Jayleen Ashford D.O. Ordering Physician: Jayleen Ashford D.O. Date of Service: 08/24/24 Procedure(s): CT [facility]olin st high res Accession Number(s): [id number] cc: MANI CAGE [address] [address] Patient Name: RIGO PETE MRN: [id number] date: 1960 Sex: M Assigned Patient Location: CT Current Patient Location: Accession/Order Numb er: [id number] Exam Date: 08:09 Report Date: 08/25/2024 06:00 [...] M.D. Signed By: 08/25/24602 DD/ 9 TD/TT: Elephant Keeper: HEMOGLOBIN Reviewed date:08/27/2024 07:03:56 AM Interpretation: Performing Lab: Notes/Report: [facility] , Hemoglobin 17.6 14.0-18.0 g/dL Performing Lab: see note ML - [facility] LB Reason For Referral No Information [...] weeks Intramuscular for 84 Days Active Ipratropium [place] 0.02 % 2.5mL Inhalat ion QID for [...] Problem Status W/U Status Risk Notes Problem 695785862 Chronic obstructive pulmonary disease, unspecified (J44.9) Active confirmed Problem Centrilobular emphysema (32925406) Centrilobular emphysema (J43.2) Active confirmed Problem Pulmonary fibrosis (34758554) Pulmonary fibrosis, unspecified (J84.10) Active confirmed Problem Coronary artery disease (97989856) CAD (coronary artery disease) (I25.10) Active confirmed Problem Obstructive sleep apnea syndrome (42469454) [place] (obstructive sleep apnea) (G47.33) Active confirmed Problem Disorder of diaphragm (57133444) Hemidiaphragm paralysis (J98.6) Active confirmed Problem Ex-tobacco user (finding) (819809816) History of tobacco abuse (Z87.891) Active confirmed Problem History of COVID-19 (1321331489793330 05) History of COVID-19 (Z86.16) Active confirmed [...] Date Performed Result Body Sit e PFT (99845, 06151, 98372) 08/08/2024 08/24/2024 N/A Pulmonary Rehabilitation 01/08/2025 N/A Encounters Encounter Location Date Provider Diagnosis Pulmonary Medicine [address] [address] 08/08/2024 Jayleen Ludwig Hemidiaphragm paraly sis J98.6 ; COPD (chronic obstructive pulmonary disease) J44.9 ; Pulmonary fibrosis, unspecified J84.10 ; Restrictive lung disease J98.4 ; [place] (obstructive sleep apnea) G47.33 ; CAD (coronary artery disease) I25.10 ; History of tobacco abuse Z87.891 and History of COVID-19 Z86.16 [facility] [address] [place] [address] 10/09/2024 Jayleen Ashford Hemidiaphragm paraly sis J98.6 ; Centrilobular emphysema J43.2 ; Pulmonary fibrosis, unspecified J84.10 ; Restrictive lung disease J98.4 ; [place] (obstructive sleep apnea) G47.33 ; CAD (coronary artery disease) I25.10 ; History of tobacco abuse Z87.891 and History of COVID-19 Z86.16 [facility] [address] [place] [address] 01/08/2025 Jayleen Ashford Hemidiaphragm paraly sis J98.6 ; Centrilobular emphysema J43.2 ; Pulmonary fibrosis, unspecified J84.10 ; Restrictive lung disease J98.4 ; [place] (obstructive sleep apnea) G47.33 ; CAD (coronary artery disease) I25.10 and History of tobacco abuse Z87.891 Pulmonary [facility] [address] [place] [address] 10/09/2024 Jayleen Ashford Assessments Encounter Date Diagnosis [...] Patient voiced enthusiasm to use a nebulizer. Cscg-lx-[id number] encounter performed with the patient to document [...] he would have to pay for it [id number]. He stated he would not be able [...] other than pulmonary rehabilitation. He states that [facility] did not want to pay for [...] year. 01/08/2025 Centrilobular emphysema (ICD-10 - J43.2) Nhvw-ya-vgsi performed today regarding continued need for nebulizer, [...] (ICD-10 - I25.10) Mild RCA disease on [facility] F/U with [facility] Cardiology 10/09/2024 CAD (coronary artery disease) (ICD-10 - I25.10) Mild RCA disease on [facility] He does not qualify for any supplemental O2 at this time. 01/08/2025 CAD (coronary artery disease) (ICD-10 - I25.10) Mild RCA disease on [facility] He does not qualify for [...] Name:Jayleen Ashford, 01/14/2026 10:00:00 AM, [address] [place], [address], Insurance Providers Payer Name Payer Address Payer Phone Subscriber Number Group Number Insured Name Patient Relationship to Insured Coverage Start Date Coverage End Date [employer] [address] [place] [id number] Rigo Gtz Self - patient is the insured Medical (General) History Medical History History ICD Code Centrilobular emphysema J43.2 Hemidiaphragm paralysis J98.6 HTN (hypertension) I10 HLD (hyperlipidemia) E78.5 [place] (obstructive sleep apnea) G47.33 CAD (coronary artery disease) I25.10 Lumbar stenosis M48.061 History of COVID-19 Z86.16 History of tobacco abuse Z87.891 Surgical History Surgery Date(Month/Year) Diaphragm Pacer Implant 12/12/2017 cholecystectomy neck surgery Left knee arthroscopy Laparoscopic Left Diaphragm Plication wi th removal of previous pacer 02/11/2021 Cardiac Catheterization 12/10/2016 tonsillectomy
--- OUTSIDE RECORDS SUMMARY | 2025-03-01 09:54 | XMS_ITS | Clinical Summary ---
Author Organization [facility] Address [address] [place] [address] Care Team Providers Care Dog Groomer Name Role Phone Nikunj Yanez MD Primary Care Provider [phone] Allergies No known active allergies Medications clarithromycin (Biaxin) 250 mg tablet 4 Active montelukast (Singulair) 10 mg tablet Take 10 mg by mouth in the morning. 4 Active oxyCODONE-acetamin ophen (Percocet) 5-325 mg tablet Take 1 tablet every 6 hours by oral route for 30 days. Active cetirizine (ZyrTEC) 10 mg tablet Take 10 mg by mouth in the morning. Active testosterone cypionate (Depo-Testosterone ) 200 mg/mL injection Inject 100 mg into the shoulder, thigh, or buttocks every 28 (twenty-eigh t) days. 4 Active atorvastatin (Lipitor) 40 mg tabletIndications: Hyperlipidemia, unspecified hyperlipidemia type Take 1 tablet (40 mg) by mouth in the morning. 90 tablet 3 5 026 Active aspirin 81 mg EC tabletIndications: Coronary artery disease involving [place] coronary artery of [place] heart without angina pectoris Take 1 tablet (81 mg) by mouth in the morning. 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 90 tablet 3 5 026 Active atenolol (Tenormin) 25 mg tabletIndications: Benign hypertensive 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 Take 1 tablet (25 mg) by mouth once daily as directed. 90 tablet 3 4 025 Discontin ued(Reord er) Active Problems Problem Noted Date Diagnosed Date Decreased libido 08/09/2024 Hypopituitarism 08/09/2024 Paralyzed hemidiaphragm 06/06/2024 Coronary artery disease invo lving [place] coronary artery of [place] heart without angina pectoris 05/15/2024 Benign hypertensive heart di sease without congestive heart failure 05/15/2024 Chest pain 05/14/2024 Chronic pain syndrome 05/14/2024 Overview (05/14/2024): Last Assessment & Plan: R/T severe lumbar stenosis Pain management referred to [facility] Spinal institute for further [...] Encounters Date Type Department Care Team Description 02/14/2025 Refill [place] [address] [place] [address] Sofie Case MA Benign hypertensive 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 01/11/2025 10:00 AM EDT Office Visit [place] [address] [place] [address] Jr Manzano MD Dyspnea on exertion (Primary Dx); Coronary artery disease involving [place] coronary artery of [place] heart without angina pectoris; Benign hypertensive heart [...] at Not on file Legal Sex Male 9:07 PM EDT Gender Identity Not on file [...] FOBT 1960 Medicare Annual Wellness (AWV) 1960 Sigmoidoscopy 1960 Depression Screening 1971 Pneumococcal Vaccine: 50+ Ye ars (1 of 2 - PCV) 1978 Adult Tetanus 1981 Zoster Vaccines (1 of 2) 2009 Fall Risk Screening 2024 COVID-19 Vaccine (1 - 2023-2 5 season) 2024 Influenza Vaccine [...] on patient's age to complete this topic Insurance [employer] Care Teams Dog Groomer Relationship Specialty Start Date End Date Nikunj Yanez MD [address] [place] [id number] PCP - General Family Medicine 07/11/24
--- OUTSIDE RECORDS SUMMARY | 2025-03-01 09:54 | XMS_ITS | Encounter Summary ---
Author Organization [facility] Address [address] [place] [address] Care Team Providers Care And Rescue Fire Fighter Crash Fire Name Role Phone Rosa Barker MD Unavailable Shaikh CURRY Malik Primary Care Provider [phone] Nikunj Yanez MD Primary Care Provider [phone] Sandee Santoyo NP Unavailable [phone] Encounter Details Date Type Department Care Team (Late st Contact Info) Description 12/06/2023 [facility] [address] [facility] [address] [place] [address] Sho Galdamez NP [address] [place] [address] Social History Tobacco Use Types [...] How often do you attend chur or samaritan services? More than 4 times per year 08/18/2023 Do you belong to any clubs o r organizations such as yarsanism groups, unions, fraternal or athletic groups, or [...] Recorded Patient Health Questionnaire-2 Score 2 08/18/2023 [facility] - Occupational Stress Questionnaire Answer Date Recorded [...] Team (Late st Contact Info) Description 03/19/2025 10:45 AM EDT [facility] [address] [place] [address] Nikunj Yanez MD [address] [place] [address] 04/12/2025 11:10 AM EDT Office Visit [facility] [address] [place] [address] Husam Muñoz MD [address] [place] [address] documented as of this encounter Procedures Procedure Name Priority Date/Time Associated Diagnosis Comments XR HIP BI Routine 12/03/2023 1:56 PM EDT documented in this encounter Results * XR HIP BI (12/03/2023 1:56 PM EDT) Anatomical Region Laterality Modality Radiographic Jeny ging Sho Galdamez MUSIC EXECUTIVE IMG XR PROCEDURES Final Result documented in this encounter Visit Diagnoses Not on filedocumented in this encounter Care Teams And Rescue Fire Fighter Crash Fire Relationship Specialty Start Date End Date Rosa Barker MD [address] [place] [address] PCP - Devoted 09/05/22 Shaikh Malik MD [address] [place] [address] PCP - General Internal Medicine 11/23/23 04/08/24 Nikunj Yanez MD [address] [place] [address] PCP - General Family Medicine 04/09/24 Sandee Santoyo NP [address] [place] [address] Nurse Practitioner Family Medicine 04/09/24 11/21/24 documented as of this encounter
--- OUTSIDE RECORDS SUMMARY | 2025-03-01 09:54 | XMS_ITS | Encounter Summary ---
Author Organization [facility] Address [address] [place] [address] Care Team Providers Care Picker Tender Name Role Phone Rosa Barker MD Unavailable Shaikh CURRY Malik Primary Care Provider [phone] Shaikh CURRY Malik Primary Care Provider [phone] Nikunj Yanez MD Primary Care Provider [phone] Sandee Santoyo NP Unavailable [phone] Encounter Details Date Type Department Care Team (Late st Contact Info) Description 11/03/[address] [facility] [address] [facility] [address] [place] [address] Miguel Huffman DO 703 [facility] [address] [place] [address] Social History Tobacco Use Types [...] Never 08/18/2023 How often do you attend [facility] or anabaptist services? More than 4 times per year 08/18/2023 Do you belong to any clubs o r organizations such as anabaptism groups, unions, fraternal or athletic groups, or [...] Recorded Patient Health Questionnaire-2 Score 2 08/18/2023 [facility] of Occupat ional Health - Occupational Stress [...] place to sleep or slept in a long term (including now)? No 08/18/2023 Sex and Gender Information Value Date Recorded Sex Assigned at Not on file Legal Sex Male 7:09 PM EDT Gender Identity Not on file Sexual Orientation Not on file documented as of this encounter Plan of Treatment Upcoming Encounters Date Type Department Care Team (Late st Contact Info) Description 03/19/2025 10:45 AM EDT [facility] [address] [place] [address] Nikunj Yanez MD [address] [place] [address] 04/12/2025 11:10 AM EDT Office Visit [facility] [address] [place] [address] Husam Muñoz MD [address] [place] [address] documented as of this encounter Procedures Procedure Name Priority Date/Time Associated Diagnosis Comments COLONOSCOPY Routine 11/01/2023 11:53 AM EST documented in this encounter Results * Colonoscopy (11/01/2023 11:53 AM EST) Anatomical Region Laterality Modality Endoscopy Miguel Enriquez Nathanael DO ENDOSCOPY PROCEDURE ORDER JACQUI Final Result documented in this encounter Visit Diagnoses Not on filedocumented in this encounter Care Teams Picker Tender Relationship Specialty Start Date End Date Rosa Barker MD [address] [facility] [address] [place] [address] PCP - Devoted 09/05/22 Shaikh Malik MD [address] [facility] [address] [place] [address] PCP - General Internal Medicine 09/22/23 11/22/23 Shaikh Malik MD [address] [place] [address] PCP - General Internal Medicine 11/23/23 04/08/24 Nikunj Yanez MD [address] [place] [address] PCP - General Family Medicine 04/09/24 Sandee Santoyo NP [address] [place] [address] Nurse Practitioner Family Medicine 04/09/24 11/21/24 documented as of this encounter
--- OUTSIDE RECORDS SUMMARY | 2025-03-01 09:54 | XMS_ITS | Clinical Summary ---
Author Organization [facility] Address [address] [place] [address] Care Team Providers Care Power System Engineer Name Role Phone Tonny Hernandez MD Unavailable [phone] Medications atenolol (TENORMIN) 25 mg tablet Take [...] Never Assessed Area Deprivation Index Answer Date Hayder rded National Score (1-100), lower number is lower ri sk 74 05/31/2024 State Score (1-10), lower number is lower risk 6 05/31/2024 Data from: https://www.neighborhoodatlas.medicine.[facility]/. Last address used for calculation [address] [...] 02/13/2024 02/12/2021, 01/27/2021 Covid-19 Vaccine ( - season) 2024 Advance Directive Discussion 09/05/2024 Medicare Advantage Annual Wellness Visit 09/05/2024 Influenza Vaccine (Season Ended) 2025 RSV Vaccine (1 - 1-dose 75+ series) 2034 Insurance [facility] HMO Care Teams Power System Engineer Relationship Specialty Start Date End Date Tonny Hernandez MD [address] [place] [address] Referring Pain Management 04/16/24
--- OUTSIDE RECORDS SUMMARY | 2025-03-01 09:54 | XMS_ITS | Encounter Summary ---
Author Organization [facility] Address [address] [place] [address] Care Team Providers Care Publishing Systems Analyst Name Role Phone Rosa Barker MD Unavailable Shaikh CURRY Malik Primary Care Provider [phone] Nikunj Yanez MD Primary Care Provider [phone] Sandee Santoyo NP Unavailable [phone] Encounter Details Date Type Department Care Team [...] How often do you attend chur or tenriism services? More than 4 times [...] Recorded Patient Health Questionnaire-2 Score 2 08/18/2023 [facility] of Occupat ional [facility] - Occupational Stress Questionnaire Answer Date [...] 03/19/2025 10:45 AM EDT [facility] [address] [place] [address] Nikunj Yanez MD [address] [place] [address] 04/12/2025 11:10 AM EDT Office Visit [facility] [address] [place] [address] Husam Muñoz MD [address] [place] [address] documented as of this encounter Procedures Procedure Name Priority Date/Time Associated Diagnosis Comments XR HIPS BILATERAL 2 VW WITH OR WITHOUT PELVIS 12/05/2023 10:52 AM EDT documented in this encounter Results * XR hips bilateral 2 views (12/05/2023 10:52 AM EDT) Anatomical Region Laterality Modality Lower Extremities, Hip Bilateral Radiograp hic Imaging 12/05/2023 10:5 2 AM EDT Narrative 12/05/2023 10:55 [place] [address] XRay Report Signed Patient: RIGO PETE MR#: [id number] : 1960 Acct:[id number] Age/Sex: 63 / M ADM Date: 12/03/23 Loc: [facility] Attending Dr: Pedro Del Real NP Ordering Physician: Pedro Del Real NP Date of Service: 12/03/23 Procedure(s): XR hip LUANN Accession Number(s): [id number] cc: Shaikh Meka Malik; Pedro Del Real NP [place] [address] Patient Name: RIGO PETE MRN: [id number] date: 1960 Sex: M Assigned Patient Location: [facility] Current Patient Location: Accession/Order Number: [id number] Exam Date: 12/03/2023 15:20 Report Date: 12/05/2023 [...] Signed By: 12/05/23 1055 DD/ 1052 TD/TT: Shot Packer: Procedure Note Radiology, Radiologist, MD - 12/08/2023 The [place] [id number] XRay Report Signed Patient: RIGO PETE NMR#: [id number] : 1960cct:[id number] Age/Sex: 63 / MADM Date: 12/03/23 Loc: RAD Attending Dr: Pedro Del Real LAND CHECKER Ordering Physician: Pedro Del Real NP Date of Service: 12/03/23 Procedure(s): XR hip LUANN Accession Number(s): [id number] cc: Shaikh Meka Malik; Pedro Del Real NP [place] [id number] Patient Name: RIGO PETE MRN: [id number] date: 1960 Sex: M Assigned Patient Location: [facility] Current Patient Location: Accession/Order Number: [id number] Exam Date: 12/03/2023 15:20 Report Date: 12/05/2023 [...] M.D. Signed By:12/05/23 1055 DD/ 1052 TD/TT: Shot Packer: Generic External Data Provider IMG XR PROCEDURES Final Result documented in this encounter Visit Diagnoses Not on filedocumented in this encounter Care Teams Publishing Systems Analyst Relationship Specialty Start Date End Date Rosa Barker MD [address] [place] [address] PCP - Devoted 09/05/22 Shaikh Malik MD [address] [place] [address] PCP - General Internal Medicine 11/23/23 04/08/24 Nikunj Yanez MD [address] [place] [address] PCP - General Family Medicine 04/09/24 Sandee Santoyo NP [address] [place] [address] Nurse Practitioner Family Medicine 04/09/24 11/21/24 documented as of this encounter
--- OUTSIDE RECORDS SUMMARY | 2025-03-01 09:54 | XMS_ITS | Encounter Summary ---
Author Organization [facility] Address [address] [place] [address] Care Team Providers Care Racing Manager Name Role Phone Rosa Barker MD Unavailable Shaikh CURRY Malik Primary Care Provider [phone] Nikunj Yanez MD Primary Care Provider [phone] Sandee Santoyo NP Unavailable [phone] Encounter Details Date Type Department Care Team [...] How often do you attend chur or episcopalian services? More than 4 times per year 08/18/2023 Do you belong to any clubs o r organizations such as protestant groups, unions, fraternal or athletic groups, or [...] Recorded Patient Health Questionnaire-2 Score 2 08/18/2023 [facility] of Occupat ional [facility] - Occupational Stress Questionnaire Answer [...] to sleep or slept in a senior care (including now)? No 08/18/2023 Sex and Gender Information Value Date Recorded Sex Assigned at Not on file Legal Sex Male 7:09 PM EDT Gender Identity Not on file Sexual Orientation Not on file documented as of this encounter Plan of Treatment Upcoming Encounters Date Type Department Care Team (Late st Contact Info) Description 03/19/2025 10:45 AM EDT [facility] [address] [place] [address] Nikunj Yanez MD [address] [place] [address] 04/12/2025 11:10 AM EDT Office Visit [facility] [address] [place] [address] Husam Muñoz MD [address] [place] [address] documented as of this encounter Procedures Procedure Name Priority Date/Time Associated Diagnosis Comments XR KNEE 4+ VIEWS LEFT 12/05/2023 12:49 PM EDT documented in this encounter Results * XR knee 4+ views left (12/05/2023 12:49 PM EDT) Anatomical Region Laterality Modality Lower Extremities, Knee Left Radiogra phic Imaging 12/05/2023 12:4 9 PM EDT Narrative 12/05/2023 12:52 [place] [address] XRay Report Signed Patient: RIGO PETE MR#: [id number] : 1960 Acct:[id number] Age/Sex: 63 / M ADM Date: 12/03/23 Loc: RAD Attending Dr: Pedro Del Real NP Ordering Physician: Pedro Del Real NP Date of Service: 12/03/23 Procedure(s): XR knee LT 4V Accession Number(s): [id number] cc: Shaikh Meka Malik; Pedro Del Real NP [place] [address] Patient Name: RIGO PETE MRN: [id number] date: 1960 Sex: M Assigned Patient Location: [facility] Current Patient Location: [facility] Accession/Order Number: [id number] Exam Date: 12/03/2023 15:20 Report Date: 12/05/2023 [...] By: Kian Tinajero M.D. Signed By: 12/05/23 8142 DD/ 1249 TD/TT: Printing Technician: Procedure Note Radiology, Radiologist, MD - 12/08/[address] [address] XRay Report Signed Patient: RIGO PETE NMR#: [id number] : 1960cct:[id number] Age/Sex: 63 / MADM Date: 12/03/23 Loc: [facility] Attending Dr: Pedro Del Real NP Ordering Physician: Pedro Del Real NP Date of Service: 12/03/23 Procedure(s): XR knee LT 4V Accession Number(s): [id number] cc: Shaikh Meka Malik; Pedro Del Real NP The [place] [address] Patient Name: RIGO PETE MRN: [id number] date: 1960 Sex: M Assigned Patient Location: [facility] Current Patient Location: [facility] Accession/Order Number: [id number] Exam Date: 12/03/2023 15:20 Report Date: 12/05/2023 [...] M.D. Signed By:12/05/23 1252 DD/ 1249 TD/TT: Printing Technician: us Generic External Data Provider IMG XR PROCEDURES Final Result documented in this encounter Visit Diagnoses Not on filedocumented in this encounter Care Teams Racing Manager Relationship Specialty Start Date End Date Rosa Barker MD [address] [place] [address] [place] [address] PCP - Devoted 09/05/22 Shaikh Malik MD [address] [place] [address] PCP - General Internal Medicine 11/23/23 04/08/24 Nikunj Yanez MD [address] [place] [address] PCP - General Family Medicine 04/09/24 Sandee Santoyo NP [address] [place] [address] Nurse Practitioner Family Medicine 04/09/24 11/21/24 documented as of this encounter
--- OUTSIDE RECORDS SUMMARY | 2025-03-01 09:54 | XMS_ITS | Encounter Summary ---
Author Organization [facility] Address [address] [place] [address] Care Team Providers Care Lodge Attendant Name Role Phone Rosa Barker MD Unavailable Shaikh CURRY Malik Primary Care Provider [phone] Nikunj Yanez MD Primary Care Provider [phone] Sandee Santoyo NP Unavailable [phone] Encounter Details Date Type Department Care Team (Late st Contact Info) Description 12/05/2023 Orders Only [facility] [address] [place] [address] Sho Galdamez NP [address] [place] [address] Social History Tobacco Use Types [...] often do you attend chur ch or scientologist services? More than 4 times per year [...] Patient Health Questionnaire-2 Score 2 08/18/2023 [facility] of Occupat ional [facility] - Occupational Stress Questionnaire Answer [...] 03/19/2025 10:45 AM EDT [facility] [address] [place] [address] Nikunj Yanez MD [address] [place] [address] 04/12/2025 11:10 AM EDT Office Visit [facility] [address] [place] [address] Husam Muñoz MD [address] [place] [address] documented as of this encounter Procedures Procedure Name Priority Date/Time Associated Diagnosis Comments XR KNEE 4+ VIEWS LEFT Routine 12/05/2023 3:04 PM EDT documented in this encounter Results * XR knee 4+ views left (12/05/2023 3:04 PM EDT) Anatomical Region Laterality Modality Lower Extremities, Knee Left Radiogra phic Imaging Sho Galdamez NP IMG XR PROCEDURES Final Result documented in this encounter Visit Diagnoses Not on filedocumented in this encounter Care Teams Lodge Attendant Relationship Specialty Start Date End Date Rosa Barker MD [address] [place] [address] PCP - Devoted 09/05/22 Shaikh Malik MD [address] [place] [address] PCP - General Internal Medicine 11/23/23 04/08/24 Nikunj Yanez MD [address] [place] [address] PCP - General Family Medicine 04/09/24 Sandee Santoyo NP [address] [place] [address] Nurse Practitioner Family Medicine 04/09/24 11/21/24 documented as of this encounter
--- OUTSIDE RECORDS SUMMARY | 2025-03-01 09:54 | XMS_ITS | Patient Health Record ---
Author Organization [facility] Address [address] [place] [address] Care Team Providers Care Case Work Aide Name Role Phone Obdulia Linda Primary Care Provider Dakota Bonilla Unavailable [phone] Portillo Corona Unavailable [phone] Reason For Referral No Information Encounters Encounter Location Date Provider Diagnosis [facility] [address] [place] [address] 05/30/2024 Dakota Bonilla [address] [facility] [place] [address] 05/30/2024 Dakota Bonilla Encounter for dental examination [...] MEDICARE ADVANTAGE [address] [place] [phone] [id number] RIGO DLAEY Self - patient is the insured 3
--- OUTSIDE RECORDS SUMMARY | 2025-03-01 09:54 | XMS_ITS | Encounter Summary ---
Author Organization [facility] Address [address] [facility] [place] [address] Care Team Providers Care Automobile Upholstery Trim Installer Name Role Phone Rosa Barker MD Unavailable Nikunj Yanez MD Primary Care Provider [phone] Reason for Visit * Reason Onset Date Comments Med Refill 02/26/2025 Encounter Details Date Type Department Care Team (Late st Contact Info) Description 02/26/2025 Refill [facility] [address] [place] [address] Nikunj Yanez MD [address] [place] [address] Class 1 obesity due to excess calories with serious comorbidity and body mass index (BMI) of 33.0 to 33.9 in adult Social History Tobacco Use Types Packs/Day Years [...] How often do you attend chur or hoahaoism services? More than 4 times per year [...] Recorded Patient Health Questionnaire-2 Score 0 01/25/2025 [facility] of Occupat ional Health - Occupational Stress [...] in a penitentiary (including now)? No 08/18/2023 Housing Stability Vital Sign Answer Naseem e Recorded In the last 12 months, was t here a time when you were not able to pay the mortgage or rent on time? No 06/05/2024 Number of Times Moved in the Last Year Not on fi le 06/05/2024 At any time in the past 12 m [facility], were you homeless or living in a penitentiary (including now)? No 06/05/2024 Sex and Gender Information Value Date Recorded Sex Assigned at Not on file Legal Sex Male 7:09 PM EDT Gender Identity Not on file Sexual Orientation Not on file documented as of this encounter Plan of Treatment Upcoming Encounters Date Type Department Care Team (Late st Contact Info) Description 03/19/2025 10:45 AM EDT Office Visit [facility] [address] [place] [address] Nikunj Yanez MD [address] [place] [address] 04/12/2025 11:10 AM EDT Office Visit [facility] [address] [place] [address] Husam Muñoz MD [address] [place] [address] documented as of this encounter Visit Diagnoses Diagnosis Class 1 obesity due to excess calories with serious comorbidity and body mass index (BMI) of 33.0 to 33.9 in adult documented in this encounter Additional Health Concerns Assessment Noted Time PHQ-9 Depression Total Score: 2 01/26/20 25 10:00 AM EDT documented as of this encounter Care Teams Automobile Upholstery Trim Installer Relationship Specialty Start Date End Date Rosa Barker MD [address] [place] [address] PCP - Devoted 09/05/22 Nikunj Yanez MD [address] [place] [address] PCP - General Family Medicine 04/09/24 documented as of this encounter
--- OUTSIDE RECORDS SUMMARY | 2025-03-01 09:54 | XMS_ITS | Encounter Summary ---
Author Organization [facility] Address [address] [facility] [place] [address] Care Team Providers Care Corporate Buyer Name Role Phone Rosa Barker MD Unavailable Shaikh CURRY Malik Primary Care Provider [phone] Shaikh CURRY Malik Primary Care Provider [phone] Nikunj Yanez MD Primary Care Provider [phone] Sandee Santoyo NP Unavailable [phone] Encounter Details Date Type Department Care Team (Late st Contact Info) Description 10/12/2023 Orders Only [facility] [address] [place] [address] Shaikh Malik MD [address] [place] [address] Social History Tobacco Use Types Packs/Day Years [...] How often do you attend chur or cheondoism services? More than 4 times per year 08/18/2023 Do you belong to any clubs o r organizations such as methodist groups, unions, fraternal or athletic groups, or [...] Recorded Patient Health Questionnaire-2 Score 2 08/18/2023 [facility] of Occupat ional Health [...] 03/19/2025 10:45 AM EDT [facility] [address] [place] [address] Nikunj Yanez MD [address] [place] [address] 04/12/2025 11:10 AM EDT Office Visit [facility] [address] [place] [address] Husam Muñoz MD [address] [place] [address] documented as of this encounter Procedures Procedure Name Priority Date/Time Associated Diagnosis Comments US SCROTUM Routine 06/09/2023 8:08 AM EDT documented in this encounter Results * US scrotum (06/09/2023 8:08 AM EDT) Anatomical Region Laterality Modality Body Ultrasound Shaikh Helena ZAPIEN IMG US PROCEDURES Final Result documented in this encounter Visit Diagnoses Not on filedocumented in this encounter Care Teams Corporate Buyer Relationship Specialty Start Date End Date Rosa Barker MD [address] [email or web address] [address] [place] [address] PCP - Devoted 09/05/22 Shaikh Malik MD [address] [email or web address] [address] [place] [address] PCP - General Internal Medicine 09/22/23 11/22/23 Shaikh Malik MD [address] [place] [address] PCP - General Internal Medicine 11/23/23 04/08/24 Nikunj Yanez MD [address] [place] [address] PCP - General Family Medicine 04/09/24 Sandee Santoyo NP [address] [place] [address] Nurse Practitioner Family Medicine 04/09/24 11/21/24 documented as of this encounter
--- OUTSIDE RECORDS SUMMARY | 2025-03-01 09:54 | XMS_ITS | Encounter Summary ---
Author Organization [facility] Address [address] [place] [address] Phone Care Team Providers Care Analytical Technician Name Role Phone Unavailable Primary Care Provider Unavailabl e Encounter Details Date Type Department Care Team (Late st Contact Info) Description 09/25/2017 Orders Only [facility] [address] [place] [address] Conversion, Onbase Social History Tobacco Use Types [...]
--- OUTSIDE RECORDS SUMMARY | 2025-03-01 09:54 | XMS_ITS | Clinical Summary ---
Author Organization [facility] Address [address] [place] [address] Care Team Providers Care Community Outreach Worker Name Role Phone Unavailable Primary Care Provider [...]
--- OUTSIDE RECORDS SUMMARY | 2025-03-01 09:55 | XMS_ITS | Encounter Summary ---
Author Organization [facility] Address [address] [place] [address] Care Team Providers Care Assembly Line Leader Name Role Phone Rosa Barker MD Unavailable Nikunj Yanez MD Primary Care Provider [phone] Sandee Santoyo NP Unavailable [phone] Encounter Details Date Type Department Care Team (Late st Contact Info) Description 09/10/2024 Orders Only [facility] [address] [place] [address] Husam Muñoz MD [address] [place] [address] Social History Tobacco Use Types [...] How often do you attend chur or hindu services? More than 4 times per year 06/05/2024 Do you belong to any clubs o r organizations such as spiritism groups, unions, fraternal or athletic groups, or [...] Recorded Patient Health Questionnaire-2 Score 0 05/03/2024 [facility] of Occupat ional Health - Occupational [...] place to sleep or slept in a group home (including now)? No 08/18/2023 Housing Stability Vital Sign Answer Naseem e Recorded In the last 12 months, was t here a time when you were not able to pay the mortgage or rent on time? No 06/05/2024 Number of Times Moved in the Last Year Not on fi le 06/05/2024 At any time in the past 12 m [facility], were you homeless or living in a group home (including now)? No 06/05/2024 Sex and [...] Visit [facility] [address] [place] [address] Nikunj Yanez MD [address] [place] [address] 04/12/2025 11:10 AM EDT Office Visit [facility] [address] [place] [address] Husam Muñoz MD [address] [place] [address] documented as of this encounter Procedures Procedure [...] on filedocumented in this encounter Care Teams Assembly Line Leader Relationship Specialty Start Date End Date Rosa Barker MD [address] [facility] [address] [place] [address] PCP - Devoted 09/05/22 Nikunj Yanez MD [address] [place] [address] PCP - General Family Medicine 04/09/24 Sandee Santoyo NP [address] [place] [address] Nurse Practitioner Family Medicine 04/09/24 11/21/24 documented as of this encounter
--- OUTSIDE RECORDS SUMMARY | 2025-03-01 09:55 | XMS_ITS | Encounter Summary ---
Author Organization [facility] Address [address] [place] [address] Care Team Providers Care Seaman Officer Name Role Phone Rosa Barker MD Unavailable Shaikh CURRY Malik Primary Care Provider [phone] Nikunj Yanez MD Primary Care Provider [phone] Sandee Santoyo NP Unavailable [phone] Encounter Details Date Type Department Care Team [...] often do you attend chur ch or shinto services? More than 4 times per year 08/18/2023 Do you belong to any clubs o r organizations such as sikhism groups, unions, fraternal or athletic groups, or [...] Recorded Patient Health Questionnaire-2 Score 0 01/31/2024 [facility] Occup[facility] - Occupational [...] 03/19/2025 10:45 AM EDT [facility] [address] [place] [address] Nikunj Yanez MD [address] [place] [address] 04/12/2025 11:10 AM EDT Office Visit [facility] [address] [place] [address] Husam Muñoz MD [address] [place] [address] documented as of this encounter Procedures Procedure Name Priority Date/Time Associated Diagnosis Comments XR LUMBAR SPINE 6V W BENDING 04/04/2024 2:07 PM EDT documented in this encounter Results * XR LUMBAR SPINE 6V W BENDING (04/04/2024 2:07 PM EDT) Anatomical Region Laterality Modality Other 04/04/2024 2:07 PM EDT Narrative 04/04/2024 2:09 [place] [address] XRay Report Signed Patient: RIGO PETE MR#: [id number] : 1960 Acct:[id number] Age/Sex: 64 / M ADM Date: 04/03/24 Loc: MRI Attending Dr: Pedro Del Real NP Ordering Physician: Pedro Del Real NP Date of Service: 04/03/24 Procedure(s): XR lumbar spine 6V w bending Accession Number(s): [id number] cc: Shaikh Meka Malik; Pedro Del Real NP The [place] [address] Patient Name: RIGO PETE MRN: [id number] date: 1960 Sex: M Assigned Patient Location: MRI Current Patient Location: Accession/Order Number: [id number] Exam Date: 04/03/2024 09:50 Report Date: 04/04/2024 [...] Signed By: 04/04/24 1409 DD/ 1407 TD/TT: Asbestos Cement Sheet Supervisor: Procedure Note Radiology, Radiologist, MD - 04/04/2024 The [place] [id number] XRay Report Signed Patient: RIGO PETE NMR#: [id number] : 1960cct:[id number] Age/Sex: 64 / MADM Date: 04/03/24 Loc: MRI Attending Dr: Pedro Del Real NP Ordering Physician: Pedro Del Real NP Date of Service: 04/03/24 Procedure(s): XR lumbar spine 6V w bending Accession Number(s): [id number] cc: Shaikh Meka Malik; Pedro Del Real NP [address] [address] Patient Name: RIGO PETE MRN: [id number] date: 1960 Sex: M Assigned Patient Location: MRI Current Patient Location: Accession/Order Number: [id number] Exam Date: 04/03/2024 09:50 Report Date: 04/04/2024 [...] M.D. Signed By:04/04/24 1409 DD/ 1407 TD/TT: Asbestos Cement Sheet Supervisor: Generic External Data Provider [facility] Final Result documented in this encounter Visit Diagnoses Not on filedocumented in this encounter Care Teams Seaman Officer Relationship Specialty Start Date End Date Rosa Barker MD [address] [place] [address] PCP - Devoted 09/05/22 Shaikh Malik MD [address] [place] [address] PCP - General Internal Medicine 11/23/23 04/08/24 Nikunj Yanez MD [address] [place] [address] PCP - General Family Medicine 04/09/24 Sandee Santoyo NP [address] [place] [address] Nurse Practitioner Family Medicine 04/09/24 11/21/24 documented as of this encounter
--- OUTSIDE RECORDS SUMMARY | 2025-03-01 09:55 | XMS_ITS | Encounter Summary ---
Author Organization [facility] Address [address] [place] [address] Care Team Providers Care Systems Technician Name Role Phone Rosa Barker MD Unavailable Nikunj Yanez MD Primary Care Provider [phone] Sandee Cage NP Unavailable [phone] Encounter Details Date Type Department Care Team [...] often do you attend chur ch or sikhism services? More than 4 times per year 06/05/2024 Do you belong to any clubs o r organizations such as yarsani groups, unions, fraternal or athletic groups, or [...] Recorded Patient Health Questionnaire-2 Score 0 05/03/2024 [facility] Occupat ional [facility] - Occupational Stress Questionnaire Answer Date [...] place to sleep or slept in a correction (including now)? No 08/18/2023 Housing Stability Vital Sign Answer Naseem e Recorded In the last 12 months, was t here a time when you were not able to pay the mortgage or rent on time? No 06/05/2024 Number of Times Moved in the Last Year Not on fi le 06/05/2024 At any time in the past 12 m [facility], were you homeless or living in a correction (including now)? No 06/05/2024 Sex and Gender [...] Office Visit [facility] [address] [place] [address] Nikunj Yanez MD [address] [place] [address] 04/12/2025 11:10 AM EDT Office Visit [facility] [address] [place] [address] Husam Muñoz MD [address] [place] [address] documented as of this encounter Procedures Procedure Name Priority Date/Time Associated Diagnosis Comments CT CHEST HIGH RESOLUTION 08/25/2024 6:00 AM EST documented in this encounter Results * CT CHEST HIGH RESOLUTION (08/25/2024 6:00 AM EST) Anatomical Region Laterality Modality Radiographic Jeny ging 08/25/2024 6:00 AM EST Narrative 08/25/2024 6:03 AM EST [address] [address] [address] Scan Report Signed Patient: RIGO PETE MR#: [id number] : 1960 Acct:[id number] Age/Sex: 64 / M ADM Date: 08/24/24 Loc: CT Attending Dr: Jayleen Ashford D.O. Ordering Physician: Jayleen Ashford D.O. Date of Service: 08/24/24 Procedure(s): CT chest high res Accession Number(s): [id number] cc: SANDEE CAGE [address] [address] Patient Name: RIGO PETE MRN: [id number] date: 1960 Sex: M Assigned Patient Location: CT Current Patient Location: Accession/Order Number: [id number] Exam Date: 08/24/2024 08:09 Report Date: 08/25/2024 [...] M.D. Signed By: 08/25/24602 DD/ 9 TD/TT: Air Antisubmarine Officer: Procedure Note Radiology, Radiologist, MD - 08/25/2024 [place] [address] CT Scan Report Signed Patient: RIGO PETE NMR#: [id number] : 1960cct:[id number] Age/Sex: 64 / MADM Date: 08/24/24 Loc: CT Attending Dr: Jayleen Ashford D.O. Ordering Physician: Jayleen Ashford D.O. Date of Service: 08/24/24 Procedure(s): CT chest high res Accession Number(s): [id number] cc: SANDEE CAGE [place] [id number] Patient Name: RIGO PETE MRN: [id number] date: 1960 Sex: M Assigned Patient Location: CT Current Patient Location: Accession/Order Number: [id number] Exam Date: 08/24/2024 08:09 Report Date: 08/25/2024 06:00 At the request of: JAYLEEN AHSFORD Procedure: CT chest high res EXAMINATION: CT [...] M.D. Signed By:08/25/24 06 DD/ 06 TD/TT: Air Antisubmarine Officer: Generic External Data Provider IMG XR PROCEDURES Final Result documented in this encounter Visit Diagnoses Not on filedocumented in this encounter Care Teams Systems Technician Relationship Specialty Start Date End Date Rosa Barker MD [address] [place] [address] PCP - Devoted 09/05/22 Nikunj Yanez MD [address] [place] [address] PCP - General Family Medicine 04/09/24 Sandee Cage NP [address] [place] [address] Nurse Practitioner Family Medicine 04/09/24 11/21/24 documented as of this encounter
--- OUTSIDE RECORDS SUMMARY | 2025-03-01 09:55 | XMS_ITS | Clinical Summary ---
Author Organization [facility] Address [address] [place] [address] Care Team Providers Care Balloon Tester Name Role Phone Rosa Barker MD Unavailable Nikunj Yanez MD Primary Care Provider [phone] Allergies No known active allergies Medications oxyCODONE-aceta minophen (Percocet) 5-325 MG tablet Take 1 tablet by mouth every 6 (six) hours if needed Active atorvastatin (Lipitor) 20 MG tabletIndicatio ns:Hyperlipidem ia, unspecified TAKE 1 TABLET BY MOUTH DAILY 90 tablet 1 024 Active atenolol (Tenormin) 25 MG tablet Take 25 mg by mouth Daily 024 Active albuterol 1.25 MG/3ML nebulizer solution Take 1.25 mg by nebulization every 6 (six) hours if needed for wheezing Active testosterone cypionate (Depo-Testoster one) 200 MG/ML injectionIndica tions:Hypopitui tarism (HCC) Inject 0.5 mL (100 mg) into the shoulder, thigh, or buttocks every 14 (fourteen) days 3 mL 1 025 Active losartan-hydroC HLOROthiazide (Hyzaar) 50-12.5 MG tabletIndicatio ns:Primary hypertension Take 1 tablet by mouth Daily 90 tablet 1 025 2024 Active Additional Information Patient not taking.Reported on 01/25/2025 montelukast (Singulair) 10 MG tabletIndicatio ns:Allergic rhinitis, unspecified Take 1 tablet (10 mg) by mouth Daily 90 tablet 1 03/17/2 025 Active clarithromycin (Biaxin) 250 MG tabletIndicatio ns:Rosacea, unspecified TAKE 1 TABLET BY MOUTH DAILY 90 tablet 025 Active phentermine 37.5 MG capsuleIndicati ons:Class 1 obesity due to excess calories with serious comorbidity and body mass index (BMI) of 33.0 to 33.9 in adult Take 1 capsule (37.5 mg) by mouth in the morning. Take before meals. 30 capsule 025 2024 Active clarithromycin (Biaxin) 250 MG tabletIndicatio ns:Rosacea, unspecified Take 1 tablet (250 mg) by mouth Daily 90 tablet 025 2024 Discontinued phentermine 37.5 MG capsuleIndicati ons:Class 1 obesity due to excess calories with serious comorbidity and body mass index (BMI) of 33.0 to 33.9 in adult Take 1 capsule (37.5 mg) by mouth in the morning. Take before meals. 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 [...] Encounters Date Type Department Care Team Description 02/26/2025 Refill [facility] [address] [place] [address] Nikunj Yanez MD Class 1 obesity due to excess calories with serious comorbidity and body mass index (BMI) of 33.0 to 33.9 in adult 02/14/2025 Refill [facility] [address] [place] [address] Nikunj Yanez MD Rosacea, unspecified 01/25/2025 10:30 AM EDT Office Visit [facility] [address] [place] [address] Nikunj Yanez MD Encounter for Medicare annual wellness exam (Primary Dx); Primary hypertension ; Class 1 obesity due to excess calories with serious comorbidity and body mass index (BMI) of 33.0 to 33.9 in adult; Chronic obstructive pulmonary disease, unspecified COPD type (HCC) 01/25/2025 Bamboo flowsheet [facility] [address] [place] [address] Nikunj Yanez MD 01/11/2025 Clinisync Result Encounter [facility] External Department Unsolicited Provider, Generic External Data from Last 3 Months Family History Medical [...] How often do you attend chur or druze services? More than 4 times per year 06/05/2024 Do you belong to any clubs o r organizations such as scientology groups, unions, fraternal or athletic groups, or [...] Recorded Patient Health Questionnaire-2 Score 0 01/25/2025 [facility] of Occupat ional Health - Occupational [...] place to sleep or slept in a detention (including now)? No 08/18/2023 Housing Stability Vital [...] were you homeless or living in a detention (including now)? No 06/05/2024 Sex and Gender [...] 03/19/2025 10:45 AM EDT [facility] Visit [facility] [address] [place] [address] Nikunj Yanez MD [address] [place] [address] 04/12/2025 11:10 AM EDT Office Visit [facility] [address] [place] [address] Husam Muñoz MD [address] [place] [address] Health Maintenance Due Date Last Done Comments [...] [facility] F inal Result Performing Organization Address [facility]/ZIP Co de Phone Number [facility] * [facility] ALT (01/11/2025 8:38 AM EDT) ALANINE AMINOTRANSFERASE 43 16 - 63 U/L TB 01/11/2025 8:38 AM EDT 01/11/2025 8:38 AM EDT Narrative [facility] - 01/11/2025 9:24 AM EDT Generic External Data Provider [facility] F inal Result Performing Organization Address [facility] de Phone Number [facility] * ALL LIPID PROFILE (FASTING) (01/11/2025 [...] Narrative [facility] - 01/11/2025 9:24 AM EDT us Generic External Data Provider SINDHU Heather cyl Result [facility] * Colonoscopy (11/01/2023 11:53 AM EST) Anatomical Region Laterality Modality Endoscopy Miguel Huffman DO ENDOSCOPY PROCEDURE ORDER JACQUI Final Result from Last 3 Months or Most Recently Relevant to Health Maintenance Insurance [employer] Care Teams Balloon Tester Relationship Specialty Start Date End Date Rosa Barker MD [address] [facility] [address] [place] [address] PCP - Devoted 09/05/22 Nikunj Yanez MD [address] [place] [address] PCP - General Family Medicine 04/09/24
--- OUTSIDE RECORDS SUMMARY | 2025-03-01 09:55 | XMS_ITS | Encounter Summary ---
Author Organization [facility] Address [address] [place] [address] Care Team Providers Care Destination Coordinator Name Role Phone Rosa Barker MD Unavailable Nikunj Yanez MD Primary Care Provider [phone] Sandee Santoyo NP Unavailable [phone] Encounter Details Date Type Department Care Team [...] often do you attend chur ch or muslim services? More than 4 times per year 06/05/2024 Do you belong to any clubs o r organizations such as jew groups, unions, fraternal or athletic groups, or [...] Recorded Patient Health Questionnaire-2 Score 0 05/03/2024 [facility] of Occupat ional [facility] - Occupational Stress Questionnaire Answer Date [...] a senior living (including now)? No 08/18/2023 Housing Stability Vital Sign Answer Naseem e Recorded In the last 12 months, was t here a time when you were not able to pay the mortgage or rent on time? No 06/05/2024 Number of Times Moved in the Last Year Not on fi le 06/05/2024 At any time in the past 12 m [facility], were you homeless or living in a senior living (including now)? No 06/05/2024 Sex and Gender [...] Visit [facility] [address] [place] [address] Nikunj Yanez MD [address] [place] [address] 04/12/2025 11:10 AM EDT Office Visit [facility] [address] [place] [address] Husam Muñoz MD [address] [place] [address] documented as of this encounter Procedures Procedure Name Priority Date/Time Associated Diagnosis Comments RT PULMONARY FUNCTION TEST 08/24/2024 8:44 AM EST documented in this encounter Results * RT PULMONARY FUNCTION TEST (08/24/2024 8:44 AM EST) Anatomical Region Laterality Modality Other 08/24/2024 8:44 AM EST Narrative 08/27/2024 7:49 AM EST [address] [address] Respiratory Report Signed Patient: RIGO PETE MR#: [id number] : 1960 Acct:[id number] Age/Sex: 64 / M ADM Date: 08/24/24 Loc: CT Attending Dr: Aly Mosley D.O. Ordering Physician: Aly Mosley D.O. Date of Service: 08/24/24 Procedure(s): RT pulmonary function test Accession Number(s): [id number] cc: [facility] Test Date: 2024-08-24 Pat Name: RIGO PETE Department: Room: - Gender: Male Director Talent: Emily Mckenna RRT : 1960 Requested By: Aly Mosley Order Number: [id number] Reading MD: Aly Mosley Interpretive Statements Pulmonary [...] 08/27/24 0749 08/27/24 0749 DD/ 0844 TD/TT: House Worker General: Procedure Note Radiology, Radiologist, MD - 08/27/2024 The [place] [id number] Respiratory Report Signed Patient: RIGO PETE NMR#: [id number] : 1960cct:[id number] Age/Sex: 64 / MADM Date: 08/24/24 Loc: CT Attending Dr: Aly Mosley D.O. Ordering Physician: Aly Mosley D.O. Date of Service: 08/24/24 Procedure(s): RT pulmonary function test Accession Number(s): [id number] cc: [facility] Test Date: 2024-08-24 Pat Name: RIGO PETE Department: Room: - Gender: Male Director Talent: Emily Mckenna RRT : 1960 Requested By: Aly Mosley Order Number: [id number] Reading MD: Aly Mosley Interpretive Statements Pulmonary [...] By:08/27/24 0749 08/27/24 0749 DD/ 0844 TD/TT: House Worker General: us Generic External Data Provider [facility] Final Result documented in this encounter Visit Diagnoses Not on filedocumented in this encounter Care Teams Destination Coordinator Relationship Specialty Start Date End Date Rosa Barker MD [address] [place] [address] PCP - Devoted 09/05/22 Nikunj Yanez MD [address] [place] [address] PCP - General Family Medicine 04/09/24 Sandee Santoyo NP [address] [place] [address] Nurse Practitioner Family Medicine 04/09/24 11/21/24 documented as of this encounter
--- OUTSIDE RECORDS SUMMARY | 2025-03-01 09:55 | XMS_ITS | Clinical Summary ---
Author Organization [facility] Address [address] [place] [address] Care Team Providers Care Instructor Physical Name Role Phone Unavailable Primary Care Provider [...]
--- OUTSIDE RECORDS SUMMARY | 2025-03-01 09:55 | XMS_ITS | Encounter Summary ---
Author Organization [facility] Address [address] [place] [address] Care Team Providers Care Virtual Assistant For Advertisers Name Role Phone Rosa Barker MD Unavailable Shaikh CURRY Malik Primary Care Provider [phone] Nikunj Yanez MD Primary Care Provider [phone] Sandee Santoyo NP Unavailable [phone] Encounter Details Date Type Department Care Team [...] often do you attend chur ch or moravian services? More than 4 times per year 08/18/2023 Do you belong to any clubs o r organizations such as presybeterian groups, unions, fraternal or athletic groups, or [...] Recorded Patient Health Questionnaire-2 Score 0 01/31/2024 [facility] of Occupat ional Health - [...] place to sleep or slept in a longterm (including now)? No 08/18/2023 Sex and Gender [...] Visit [facility] [address] [place] [address] Nikunj Yanez MD [address] [place] [address] 04/12/2025 11:10 AM EDT Office Visit [facility] [address] [place] [address] Husam Muñoz MD [address] [place] [address] documented as of this encounter Procedures Procedure Name Priority Date/Time Associated Diagnosis Comments MR LUMBAR SPINE WO CON 04/03/2024 4:10 PM EDT documented in this encounter Results * MR LUMBAR SPINE WO CON (04/03/2024 4:10 PM EDT) Anatomical Region Laterality Modality Other 04/03/2024 4:10 PM EDT Narrative 04/03/2024 4:13 [place] [address] Magnetic Resonance Report Signed Patient: RIGO PETE MR#: [id number] : 1960 Acct:[id number] Age/Sex: 64 / M ADM Date: 04/03/24 Loc: MRI Attending Dr: Pedro Del Real NP Ordering Physician: Pedro Del Real NP Date of Service: 04/03/24 Procedure(s): MR lumbar spine wo con Accession Number(s): [id number] cc: Shaikh Meka Malik; Pedro Del Real NP [place] [id number] Patient Name: RIGO PETE MRN: [id number] date: 1960 Sex: M Assigned Patient Location: MRI Current Patient Location: PM Accession/Order Number: [id number] Exam Date: 04/03/2024 09:09 Report Date: 04/03/2024 [...] M.D. Signed By: 04/03/241612 DD/ 09 TD/TT: Outside Dealer Sales Representative: Procedure Note Radiology, Radiologist, MD - 04/03/2024 [place] [address] Magnetic Resonance Report Signed Patient: RIGO PETE NMR#: [id number] : 1960cct:[id number] Age/Sex: 64 / MADM Date: 04/03/24 Loc: MRI Attending Dr: Pedro Del Real NP Ordering Physician: Pedro Del Real NP Date of Service: 04/03/24 Procedure(s): MR lumbar spine wo con Accession Number(s): [id number] cc: Shaikh Meka Malik; Pedro Del Real NP The [place] [id number] Patient Name: RIGO PETE MRN: [facility]:[id number] date: 1960 Sex: M Assigned Patient Location: MRI Current Patient Location: Accession/Order Number: [id number] Exam Date: 04/03/2024 09:09 Report Date: 04/03/2024 [...] Diaz M.D. Signed By:04/03/241612 DD/ 09 TD/TT: Outside Dealer Sales Representative: Generic External Data Provider [facility] Final Result documented in this encounter Visit Diagnoses Not on filedocumented in this encounter Care Teams Virtual Assistant For Advertisers Relationship Specialty Start Date End Date Rosa Barker MD [address] [place] [address] [address] [place] [address] PCP - Devoted 09/05/22 Shaikh Malik MD [address] [place] [address] PCP - General Internal Medicine 11/23/23 04/08/24 Nikunj Yanez MD [address] [place] [address] PCP - General Family Medicine 04/09/24 Sandee Santoyo NP [address] [place] [address] Nurse Practitioner Family Medicine 04/09/24 11/21/24 documented as of this encounter
--- OUTSIDE RECORDS SUMMARY | 2025-03-01 09:55 | XMS_ITS | Encounter Summary ---
Author Organization [facility] Address [address] [facility] [place] [address] Care Team Providers Care Sports Umpire Name Role Phone Rosa Barker MD Unavailable Shaikh CURRY Malik Primary Care Provider [phone] Nikunj Yanez MD Primary Care Provider [phone] Sandee Santoyo NP Unavailable [phone] Reason for Visit * Reason Comments Med Refill Encounter Details Date Type Department Care Team (Late st Contact Info) Description 02/21/2024 [facility] [address] [place] [address] Shaikh Malik MD [address] [place] [address] Rosacea, unspecified Social History Tobacco Use Types [...] How often do you attend chur or baptist services? More than 4 times per year 08/18/2023 Do you belong to any clubs o r organizations such as latter day groups, unions, fraternal or athletic groups, or [...] Recorded Patient Health Questionnaire-2 Score 0 01/31/2024 [facility] of Occupat ional Health - Occupational [...] 10:45 AM EDT Office Visit [facility] [address] [place] [address] iNkunj Yanez MD [address] [place] [address] 04/12/2025 11:10 AM EDT Office Visit [facility] [address] [place] [address] [place] [address] Husam Muñoz MD [address] [place] [address] documented as of this encounter Visit Diagnoses Diagnosis Rosacea, unspecified documented in this encounter Care Teams Sports Umpire Relationship Specialty Start Date End Date Rosa Barker MD [address] [facility] [address] [place] [address] PCP - Devoted 09/05/22 Shaikh Malik MD [address] [place] [address] PCP - General Internal Medicine 11/23/23 04/08/24 Nikunj Yanez MD [address] [place] [address] PCP - General Family Medicine 04/09/24 Sandee Santoyo NP [address] [place] [address] Nurse Practitioner Family Medicine 04/09/24 11/21/24 documented as of this encounter
--- OUTSIDE RECORDS SUMMARY | 2025-03-01 09:55 | XMS_ITS | Clinical Summary ---
Author Organization [facility] Address [address] [place] [address] Phone Care Team Providers Care Parimutuel Ticket Checker Name Role Phone Unavailable Primary Care Provider [...] on file Medical Devices Implanted Type Area Crester Device Identifier Shelf Expiration Date Model / Serial / Lot Kit, Pacing, Diaphragm, Synapse Case [id number] Implanted:Qty: 1 on 12/12/2017 by Daniel Caballero MD Implant [employer] 08/04/2018-0035 / 20-0028-12 0817-10 / -0036-12 1917-3-3 Description:Converted from [facility]. Please see archived information for full log information.
--- OUTSIDE RECORDS SUMMARY | 2025-03-01 09:56 | XMS_ITS | Encounter Summary ---
Author Organization [facility] Address [address] [place] [address] Care Team Providers Care Lottery Sales Clerk Name Role Phone Rosa Barker MD Unavailable Nikunj Yanez MD Primary Care Provider [phone] Sandee Santoyo NP Unavailable [phone] Encounter Details Date Type Department Care Team (Late st Contact Info) Description 04/12/2024 Abstract [facility] [address] [place] [address] Unallocated, Noms Provider, [address] [place] [address] Social History Tobacco Use Types Packs/Day Years [...] often do you attend chur ch or pentecostalism services? More than 4 times per year 08/18/2023 Do you belong to any clubs o r organizations such as episcopal groups, unions, fraternal or athletic groups, or [...] Recorded Patient Health Questionnaire-2 Score 0 01/31/2024 [facility] Questionnaire Answer Date Recorded [...] place to sleep or slept in a skilled nursing (including now)? No 08/18/2023 Sex and Gender [...] Office Visit [facility] [address] [place] [address] Nikunj Yanez MD [address] [place] [address] 04/12/2025 11:10 AM EDT Office Visit [facility] [address] [place] [id number] Husam Muñoz MD [address] [place] [address] documented as of this encounter Visit Diagnoses Not on filedocumented in this encounter Care Teams Lottery Sales Clerk Relationship Specialty Start Date End Date Rosa Barker MD [address] [place], [place] [id number] PCP - Devoted 09/05/22 Nikunj Ynaez MD [address] [place] [address] PCP - General Family Medicine 04/09/24 Sandee Santoyo NP [address] [place] [address] Nurse Practitioner Family Medicine 04/09/24 11/21/24 documented as of this encounter
--- OUTSIDE RECORDS SUMMARY | 2025-03-01 09:56 | XMS_ITS | Encounter Summary ---
Author Organization [facility] Address [address] [place] [address] Care Team Providers Care Supervisor Car Installations Name Role Phone Rosa Barker MD Unavailable Nikunj Yanez MD Primary Care Provider [phone] Sandee Santoyo NP Unavailable [phone] Encounter Details Date Type Department Care Team [...] often do you attend chur ch or islam services? More than 4 times per year 08/18/2023 Do you belong to any clubs o r organizations such as christian groups, unions, fraternal or athletic groups, or [...] Recorded Patient Health Questionnaire-2 Score 0 05/03/2024 [facility] - Occupational Stress Questionnaire Answer Date [...] place to sleep or slept in a alf (including now)? No 08/18/2023 Sex and Gender Information Value Date Recorded Sex Assigned at Not on file Legal Sex Male 7:09 PM EDT Gender Identity Not on file Sexual Orientation Not on file documented as of this encounter Plan of Treatment Upcoming Encounters Date Type Department Care Team (Late st Contact Info) Description 03/19/2025 10:45 AM EDT Office Visit [facility] [address] [place] [address] Nikunj Yanez MD [address] [place] [address] 04/12/2025 11:10 AM EDT Office Visit [facility] [address] [place] [address] Husam Muñoz MD [address] [place] [address] documented as of this encounter Procedures Procedure Name Priority Date/Time Associated Diagnosis Comments CA ECHO DOPPLER COMPLETE 05/24/2024 4:55 PM EDT documented in this encounter Results * CA ECHO DOPPLER COMPLETE (05/24/2024 4:55 PM EDT) Anatomical Region Laterality Modality Other 05/24/2024 4:55 PM EDT Narrative 05/24/2024 4:56 [place] [address] Cardiology Report Signed Patient: RIGO PETE MR#: [id number] : 1960 Acct:[id number] Age/Sex: 64 / M ADM Date: 05/22/24 Loc: CARD Attending Dr: Elias Manzano M.D. Ordering Physician: Elias Manzano M.D. Date of Service: 05/22/24 Procedure(s): CA echo doppler complete Accession Number(s): [id number] cc: Shaikh Meka Malik; Elias Manzano M.D. Patient Name: RIGO PETE MR#: [id number] : 1960 Exam Date: 05/22/2024 Ordering Doctor: [...] M.D. Signed By: 05/24/246 DD/ 54 TD/TT: Hand Stitcher: Procedure Note Radiology, Radiologist, MD - 05/24/2024 [place] [address] Cardiology Report Signed Patient: RIGO PETE NMR#: [id number] : 9Acct:[id number] Age/Sex: 64 / MADM Date: 05/22/24 Loc: CARD Attending Dr: Elias Manzano M.D. Ordering Physician: Elias Manzano M.D. Date of Service: 05/22/24 Procedure(s): CA echo doppler complete Accession Number(s): [id number] cc: Shaikh Meka Malik; Elias Manzano M.D. Patient Name: RIGO PETE MR#: [id number] : 1960 Exam Date: 05/22/2024 Ordering Doctor: [...] Irby M.D. Signed By:05/24/246 DD/ 54 TD/TT: Hand Stitcher: us Generic External Data Provider [facility] Final Result documented in this encounter Visit Diagnoses Not on filedocumented in this encounter Care Teams Supervisor Car Installations Relationship Specialty Start Date End Date Rosa Barker MD [address] [place] [address] PCP - Devoted 09/05/22 Nikunj Yanez MD [address] [place] [phone] PCP - General Family Medicine 04/09/24 Sandee Santoyo NP [address] [place] [phone] Nurse Practitioner Family Medicine 04/09/24 11/21/24 documented as of this encounter
--- OUTSIDE RECORDS SUMMARY | 2025-03-01 09:56 | XMS_ITS | Encounter Summary ---
Author Organization [facility] Address [address] [place] [address] Care Team Providers Care Knockdown Man Name Role Phone Rosa Barker MD Unavailable Nikunj Yanez MD Primary Care Provider [phone] Sandee Santoyo NP Unavailable [phone] Encounter Details Date Type Department Care Team (Late st Contact Info) Description 04/12/2024 Abstract [facility] [address] [place] [address] Unallocated, Noms Provider, [address] [place] [address] Social History Tobacco Use Types Packs/Day Years [...] often do you attend chur ch or anglican services? More than 4 times per year [...] Recorded Patient Health Questionnaire-2 Score 0 01/31/2024 [facility] Answer [...] Office Visit [facility] [address] [place] [address] Nikunj Yanez MD [address] [place] [address] 04/12/2025 11:10 AM EDT Office Visit [facility] [address] [place] [phone] Husam Muñoz MD [address] [place] [address] documented as of this encounter Visit Diagnoses Not on filedocumented in this encounter Care Teams Knockdown Man Relationship Specialty Start Date End Date Rosa Barker MD [address] [place], [place] [phone] PCP - Devoted 09/05/22 Nikunj Yanez MD [address] [place] [address] PCP - General Family Medicine 04/09/24 Sandee Santoyo NP [address] [place] [address] Nurse Practitioner Family Medicine 04/09/24 11/21/24 documented as of this encounter
[2025-03-01 10:09] LABS: Hemoglobin 17.8 g/dL (14.0-18.0)
[2025-03-01 11:13] LABS: Prostate Specific Antigen Dx 1.23 ng/mL (<=4.00)
[2025-03-02 04:08] LABS: Testosterone 296 ng/dL (264-916)
== END 2025-03-01 09:53 | disposition home or self-care (01) ==
LOC: LAB 09:52
PROVIDERS: PCP Family Medicine; Visit Provider Internal Medicine
DX: E23.0 Hypopituitarism (principal); Z12.5 Encounter for screening for malignant neoplasm of prostate
CPT/HCPCS: 36415; 84153; 84403; 85018

== ENCOUNTER 2025-03-20 13:45 | Outpatient (OUT) | payer OTHER, SELFPAY ==
--- NOTE | 2025-03-20 14:22 | PM.CN ---
Consult Note: HPI Data of Consult Requesting Physician: Sho Galdamez NP Primary Care Provider: Nikunj Yanez MD Consult Narrative Narrative: Ryan Pete a pleasant 65 year old male presents for evaluation and management of low back pain, however last Tuesday he fell after tripping in his garden on a hose. Patient reports falling on his bilateral knees and was able to stand up and continue on with his day. He reports his pain has significantly increased since last in his low back and bilateral hips, left greater than right. today he is noting significant stabbing pain in low back and left hip/groin. denies loss of bowel/bladder. he did drive himself here today. He has not been evaluated by PCP, ER, urgent care. is not finding benefit to baclofen and percocet 5-325mg QID PRN. is following with NS on 03-27-25 at [facility] for neck and low back. cc:: CC: Sho Galdamez NP [facility] Medical History (Updated 03/20/25 @ 14:28 by Sho Galdamez NP) Bilateral hip pain ?M25.551 - Pain in right hip (ICD-10) ?M25.552 - Pain in left hip (ICD-10) COPD (chronic obstructive pulmonary disease) ?J44.9 - Chronic obstructive pulmonary disease, unspecified (ICD-10) Rheumatoid arthritis ?M06.9 - Rheumatoid arthritis, unspecified (ICD-10) Upper back pain ?M54.9 - Dorsalgia, unspecified (ICD-10) Low back pain ?M54.50 - Low back pain, unspecified (ICD-10) Uses continuous positive airway pressure (CPAP) ventilation at home ?Z99.89 - Dependence on other enabling machines and devices (ICD-10) Emphysema lung ?J43.9 - Emphysema, unspecified (ICD-10) Hypertension ?I10 - Essential (primary) hypertension (ICD-10) Surgical History Hx of cholecystectomy ?Z90.49 - Acquired absence of other specified parts of digestive tract (ICD-10) H/O cardiac catheterization ?Z98.890 - Other specified postprocedural states (ICD-10) H/O heart bypass surgery ?Z95.1 - Presence of aortocoronary bypass graft (ICD-10) History of lung surgery ?Z98.890 - Other specified postprocedural states (ICD-10) History of tonsillectomy ?Z90.89 - Acquired absence of other organs (ICD-10) H/O cervical spine surgery ?Z98.890 - Other specified postprocedural states (ICD-10) H/O carpal tunnel repair ?Z98.890 - Other specified postprocedural states (ICD-10) H/O arthroscopy of knee ?Z98.890 - Other specified postprocedural states (ICD-10) Family History (Updated 03/20/25 @ 14:28 by Sho Galdamez NP) Other Bilateral hip pain Meds Home Medications and Allergies Home Medications ?Medication ?Instructions ?Recorded ?Confirmed ?Type atorvastatin 40 mg tablet (Lipitor) 40 mg PO DAILY 02/17/23 01/14/25 History baclofen 10 mg tablet 10 mg PO BID 02/17/23 01/14/25 History lidocaine 5 % topical patch 1 patch topical DAILY 02/17/23 01/14/25 History (Lidoderm) testosterone enanthate 50 mg/0.5 50 mg subcut QWEEK 12/13/23 01/14/25 History mL subcutaneous auto-injector (Xyosted) ibuprofen 200 mg tablet 800 mg PO TID PRN pain 12/20/23 01/14/25 History cetirizine 10 mg tablet (Zyrtec) 10 mg PO BID PRN allergy symptoms 03/28/24 01/14/25 History montelukast 10 mg tablet 10 mg PO DAILY 03/28/24 01/14/25 History (Singulair) naloxone 4 mg/actuation nasal 4 mg intranasal Q2M PRN opioid 07/18/24 01/14/25 Rx spray (Narcan) overdose #1 ea oxycodone-acetaminophen 5 mg-325 1 tab PO QID PRN pain #120 tabs 10/18/24 01/14/25 Rx mg tablet (Percocet) atenolol 25 mg tablet 25 mg 12/24/24 History oxycodone-acetaminophen 5 mg-325 1 tab PO QID PRN pain #120 tabs 01/15/25 Rx mg tablet (Percocet) oxycodone-acetaminophen 5 mg-325 1 tab PO QID PRN pain #120 tabs 02/14/25 Rx mg tablet (Percocet) oxycodone-acetaminophen 5 mg-325 1 tab PO QID PRN pain #120 tabs 03/14/25 Rx mg tablet (Percocet) Allergies Allergy/AdvReac Type Severity Reaction Status Date / Time No Known Drug Allergies Allergy Verified 01/14/25 10:54 Exam Constitutional Documenting provider has reviewed patient's vital signs: yes Common normals: no apparent distress, oriented x3, alert and well nourished General appearance: cooperative and in distress HENMT Common normals: normocephalic, hearing grossly normal bilaterally and moist oral mucous membranes Head and scalp: normocephalic Eye Common normals: PERRL Pupil: PERRL Neck & C-Spine Common normals: full ROM General: normal visual inspection Chest Common normals: inspection of chest normal Respiratory Common normals: normal respiratory effort, no retractions and no use of accessory muscles Back & Pelvis Lumbar spine/lower back: ROM limited, pain with ROM, straight leg raise positive right and straight leg raise positive left Other: limited exam due to significant pain severe pain with left SLR and attempt to rotation left hip internally/externally moderate pain with internal/external rotation of right hip decreased sensation to left L4,5,S1 (chronic l3,4,5 radiculopathy from prior exams) Neuro Common normals: oriented x3 Sensorium/orientation: alert Psych Common normals: mental status grossly normal, thought process normal, cooperative, affect normal, speech normal and activity/motor behavior normal Speech: normal speech Thought process: normal thought process Assessment and Plan Assessment and Plan (1) Intractable pain: (2) Fall: (3) Bilateral hip pain: (4) Failed neck syndrome: (5) Sacroiliitis: (6) Lumbar stenosis with neurogenic claudication: (7) Lumbar degenerative disc disease: (8) Lumbar radiculopathy: (9) Encounter for long-term opiate analgesic use: Plan recommend pt go to the ER for evaluation of severe low back and left>right hip post fall. i did call and give report to the ER and gave the pt and ER permission to fill alternative opioid medications if recommended at this time, this will not violate his RELIGIOUS EDUCATION DIRECTOR. f/u TBD
== END 2025-03-20 13:46 | disposition home or self-care (01) ==
PROVIDERS: PCP Family Medicine; Visit Provider Nurse Practitioner
DX: G89.4 Chronic pain syndrome (principal); W19.XXXA Unspecified fall, initial encounter; M25.552 Pain in left hip; M25.551 Pain in right hip; M96.1 Postlaminectomy syndrome, not elsewhere classified; M46.1 Sacroiliitis, not elsewhere classified; M48.062 Spinal stenosis, lumbar region with neurogenic claudication; M51.369 Other intervertebral disc degeneration, lumbar region without mention of lumbar back pain or lower extremity pain; M54.16 Radiculopathy, lumbar region; Z79.891 Long term (current) use of opiate analgesic
CPT/HCPCS: G0463

== ENCOUNTER 2025-03-20 14:26 | Emergency (ER) | payer OTHER, SELFPAY ==
[2025-03-20 14:32] VITALS: BP 145/85; PULSE 87; TEMP 36.8; O2SAT 97; BMI 32.0
--- NOTE | 2025-03-20 14:44 | CT_ITS ---
The [address] [address] Patient Name: RIGO JEFFERSON MRN: [id number] date: 1960 Sex: M Assigned Patient Location: ER Current Patient Location: ER Accession/Order Number: [id number] Exam Date: 03/20/2025 15:07 Report Date: 03/20/2025 15:16 At the request of: LALIT ROPER MD Procedure: CT lumbar spine wo con CT lumbar spine without contrast TECHNIQUE: The CT exam was performed using one or more the following dose reduction techniques: Automated exposure control, adjustment of the MA and/or Kv according to patient size, or use of the iterative reconstruction technique. COMPARISON: Plain film imaging 04/03/2024 HISTORY: Chronic low back pain. Fell last week. Increasing left hip pain. Similar moderate spondylosis with large anterior osteophytes. Similar multilevel facet degeneration. Similar bony alignment. Chronic regions of mild endplate compression deformity. Similar large lateral endplate spurs. No acute displaced fractures. Moderate SI joint degeneration with continuous anterior spurring. No soft tissue hematoma. CT/CT lumbar spine wo con IMPRESSION: No acute displaced fracture. Similar extensive multilevel lumbar degeneration. Impression dictated by: Tanner Ayon M.D. 03/20/2025 3:16 PM Dictation Location[facility] Electronically authenticated by: [id number] Y Date: 03/20/2025 15:16
--- NOTE | 2025-03-20 14:44 | CT_ITS ---
The [address] [address] Patient Name: RIGO JEFFERSON MRN: [id number] date: 1960 Sex: M Assigned Patient Location: ER Current Patient Location: ER Accession/Order Number: [id number] Exam Date: 03/20/2025 15:10 Report Date: 03/20/2025 15:17 At the request of: LALIT ROPER MD Procedure: CT hip LT wo con CT hip LT wo con 03/20/2025 3:00 PM SIGNS AND SYMPTOMS: Fall, low back pain and pain in left hip radiating to left knee TECHNIQUE: Multidetector CT axial slices of the left hip without IV contrast. Multiplanar reformats were performed and viewed on a separate workstation and reviewed to further define anatomy and possible pathology. CT was performed with one or more of the following dose reduction techniques: Automated exposure control, adjustment of the mA and/or kV according to patient size, or use of iterative reconstruction technique. COMPARISON: 12/03/2023 FINDINGS: There is narrowing of the left hip joint space. Serpiginous sclerotic changes are noted in the subarticular marrow suggesting avascular necrosis. The femoral head is otherwise intact. There is no fracture or dislocation. CT/CT hip LT wo con IMPRESSION: No fracture or dislocation. Mild degenerative changes are noted in the left hip with findings suggesting avascular proptosis of the femoral head. This is similar to the prior radiographs. Impression dictated by: Neno Patel M.D. 03/20/2025 3:17 PM Dictation Location: [place] [address] Electronically authenticated by: [id number] Y Date: 03/20/2025 15:17
--- NOTE | 2025-03-20 14:47 | ED.GENADUL1 ---
HPI HPI - General Adult General Chief complaint: Extremity Injury, Lower Stated complaint: FALL HIP PAIN Time Seen by Provider: 03/20/25 14:41 Source: patient Mode of arrival: walk-in Limitations: no limitations History of Present Illness HPI narrative: 65-year-old male presents to the emergency department for pain in his left lower back and left hip. He fell 8 days ago. He was seen at pain management today and was sent here for evaluation. He is in pain management for chronic back pain and is on Percocet which was not helping at home. No weakness in his leg. He did not hit his head. Related Data Home Medications ?Medication ?Instructions ?Recorded ?Confirmed atorvastatin 40 mg tablet (Lipitor) 40 mg PO DAILY 02/17/23 03/20/25 testosterone enanthate 50 mg/0.5 50 mg subcut QWEEK 12/13/23 01/14/25 mL subcutaneous auto-injector (Xyosted) montelukast 10 mg tablet 10 mg PO DAILY 03/28/24 03/20/25 (Singulair) atenolol 25 mg tablet 25 mg 12/24/24 clarithromycin 250 mg tablet mg 03/20/25 phentermine 37.5 mg capsule mg 03/20/25 Previous Rx's ?Medication ?Instructions ?Recorded naloxone 4 mg/actuation nasal 4 mg intranasal Q2M PRN opioid 07/18/24 spray (Narcan) overdose #1 ea oxycodone-acetaminophen 5 mg-325 1 tab PO QID PRN pain #120 tabs 10/18/25 mg tablet (Percocet) oxycodone-acetaminophen 5 mg-325 1 tab PO QID PRN pain #120 tabs 01/15/25 mg tablet (Percocet) oxycodone-acetaminophen 5 mg-325 1 tab PO QID PRN pain #120 tabs 02/14/25 mg tablet (Percocet) oxycodone-acetaminophen 5 mg-325 1 tab PO QID PRN pain #120 tabs 03/14/ mg tablet (Percocet) methocarbamol 750 mg tablet 750 mg PO Q8H #20 tabs 03/20/25 Allergies Allergy/AdvReac Type Severity Reaction Status Date / Time No Known Drug Allergies Allergy Verified 03/20/25 14:39 Opioid HPI Opioid Management Most Recent Opioid Data: Last Pain Scale 10 Today, 14:32 Review of Systems ROS Narrative A ten point review of systems is negative except as noted above. PFSH PFSH Medical History (Updated 03/20/25 @ 15:29 by Ramiro Ruffin MD) Bilateral hip pain ?M25.551 - Pain in right hip (ICD-10) ?M25.552 - Pain in left hip (ICD-10) COPD (chronic obstructive pulmonary disease) ?J44.9 - Chronic obstructive pulmonary disease, unspecified (ICD-10) Rheumatoid arthritis ?M06.9 - Rheumatoid arthritis, unspecified (ICD-10) Upper back pain ?M54.9 - Dorsalgia, unspecified (ICD-10) Low back pain ?M54.50 - Low back pain, unspecified (ICD-10) Uses continuous positive airway pressure (CPAP) ventilation at home ?Z99.89 - Dependence on other enabling machines and devices (ICD-10) Emphysema lung ?J43.9 - Emphysema, unspecified (ICD-10) Hypertension ?I10 - Essential (primary) hypertension (ICD-10) Surgical History Hx of cholecystectomy ?Z90.49 - Acquired absence of other specified parts of digestive tract (ICD-10) H/O cardiac catheterization ?Z98.890 - Other specified postprocedural states (ICD-10) H/O heart bypass surgery ?Z95.1 - Presence of aortocoronary bypass graft (ICD-10) History of lung surgery ?Z98.890 - Other specified postprocedural states (ICD-10) History of tonsillectomy ?Z90.89 - Acquired absence of other organs (ICD-10) H/O cervical spine surgery ?Z98.890 - Other specified postprocedural states (ICD-10) H/O carpal tunnel repair ?Z98.890 - Other specified postprocedural states (ICD-10) H/O arthroscopy of knee ?Z98.890 - Other specified postprocedural states (ICD-10) Family History (Updated 03/20/25 @ 14:28 by Sho Galdamez NP) Other Bilateral hip pain Exam Narrative Exam Narrative: Nurses note and vital signs reviewed and patient is not hypoxic. General: The patient appears uncomfortable. He is laying on the cart. Skin: Warm, dry, no pallor noted. There is no rash noted. Head: Normocephalic, atraumatic Eye: Normal conjunctiva, no drainage Ears, Nose, Mouth, and Throat: oral mucosa is moist. Nares patent. Cardiovascular: Regular Rate and Rhythm Respiratory: Patient is in no distress, no accessory muscle use, lungs are clear to auscultation, no wheezing, rales or rhonchi Back: No bruise rash or abrasion present. GI: Soft and nontender Musculoskeletal: Left leg is not swollen. No calf tenderness. He has no bruise or abrasion in the hip area which has good range of motion though causes him discomfort. Neurological: A&O, normal speech; motor strength intact in his lower extremities. Psychiatric: Cooperative Constitutional Vital Signs, click to edit/add: Last Vital Signs Temp 98.2 F 03/20/25 14:32 Pulse 87 03/20/25 14:32 Resp 18 03/20/25 14:32 BP 145/85 H 03/20/25 14:32 Pulse Ox 97 03/20/25 14:32 O2 Del Method Room Air 03/20/25 14:32 Course Vital Signs Vital signs: Vital Signs Temperature 98.2 F 03/20/25 14:32 Pulse Rate 87 03/20/25 14:32 Respiratory Rate 18 03/20/25 14:32 Blood Pressure 145/85 H 03/20/25 14:32 Pulse Oximetry 97 03/20/25 14:32 Oxygen Delivery Method Room Air 03/20/25 14:32 Temperature 98.2 F 03/20/25 14:32 Pulse Rate 87 03/20/25 14:32 Respiratory Rate 18 03/20/25 14:32 Blood Pressure 145/85 H 03/20/25 14:32 Pulse Oximetry 97 03/20/25 14:32 Oxygen Delivery Method Room Air 03/20/25 14:32 Medical Decision Making MDM Narrative Medical decision making narrative: CT of hip and lumbar spine do not show any acute findings. He was given IM Toradol. I spoke to Sho, nurse practitioner at his pain management office and we discussed the findings. She is sending in a prescription for refill of his Percocet. I am prescribing him muscle relaxer. Treatment diagnosis and follow-up were discussed with the patient. Differential Diagnosis Differential Diagnosis: Musculoskeletal pain, fracture, degenerative disc disease, bursitis Imaging Data CT hip, lumbar spine: Radiologist's impression: ITS Impressions Hip CT 03/20/25 14:44 IMPRESSION: No fracture or dislocation. Mild degenerative changes are noted in the left hip with findings suggesting avascular proptosis of the femoral head. This is similar to the prior radiographs. Impression dictated by: Neno Patel M.D. 03/20/2025 3:17 PM Dictation Location: [employer] Electronically authenticated by: [id number] Y Date: 03/20/2025 15:[address] 03/20/25 14:44 IMPRESSION: No acute displaced fracture. Similar extensive multilevel lumbar degeneration. Impression dictated by: Tanner Ayon M.D. 03/20/2025 3:16 PM Dictation Location: [facility] Electronically authenticated by: [id number] Y Date: 03/20/2025 15:16 Discharge Plan Discharge Chief Complaint: Extremity Injury, Lower Clinical Impression: Hip pain, left Patient Disposition: Home, Self-Care Time of Disposition Decision: 15:29 Condition: Good Mode of Transportation: Private Vehicle Prescriptions / Home Meds: New methocarbamol 750 mg tablet 750 mg PO Q8H Qty: 20 0RF No Action atorvastatin [Lipitor] 40 mg tablet 40 mg PO DAILY Xyosted 50 mg/0.5 mL auto-injector 50 mg subcut QWEEK montelukast [Singulair] 10 mg tablet 10 mg PO DAILY oxycodone-acetaminophen [Percocet] 5-325 mg tablet 1 tab PO QID PRN (Reason: pain) Qty: 120 0RF atenolol 25 mg tablet 25 mg naloxone [Narcan] 4 mg/actuation spray,non-aerosol 4 mg intranasal Q2M PRN (Reason: opioid overdose) Qty: 1 0RF Rx Instructions: spray 1 dose into ONE nostril; alternate nostrils w each dose until help arrives oxycodone-acetaminophen [Percocet] 5-325 mg tablet 1 tab PO QID PRN (Reason: pain) Qty: 120 0RF oxycodone-acetaminophen [Percocet] 5-325 mg tablet 1 tab PO QID PRN (Reason: pain) Qty: 120 0RF oxycodone-acetaminophen [Percocet] 5-325 mg tablet 1 tab PO QID PRN (Reason: pain) Qty: 120 0RF Rx Instructions: MUST LAST 30 DAYS clarithromycin 250 mg tablet phentermine 37.5 mg capsule Print Language: Uzbek Instructions: Hip Pain (ED) Additional Instructions: Sho is sending in a prescription refill for Percocet. Referrals: Nikunj Yaenz MD [Primary Care Provider, Family Practice] - 1 week
--- NOTE | 2025-03-20 15:02 | PC.NURSE ---
Pt presents to ER for lower left back pain and hip pain Pt has chronic low back pain [facility] he sees pain management for Pt fell last week in his driveway - he states he landed on his knees Since his fall patient has been experiencing hip pain which is worsening and now becoming numb and tingly at times This nurse took report from GREGORY Berkowitz at pain clinic who states he takes percocet 5's daily and is due for a refill tomorrow She states she clears him for any pain meds here an sent home as a temporary fix for acute break through pain She is requesting imaging be done When patient went to sit on ER bed he shot back up quickly stating it feels like he is getting stabbed in the hip Pt then repositions and sits slowly pt is wearing a tens unit on his lower back at this time
[2025-03-20] MEDS: KETOROLAC TROMETHAMINE 60 MG/2 ML VIAL IM (15:44)
== END 2025-03-20 15:50 | disposition home or self-care (01) ==
PROVIDERS: Emergency Provider Emergency Medicine; PCP Family Medicine
DX: M25.552 Pain in left hip (principal); G89.4 Chronic pain syndrome; W19.XXXA Unspecified fall, initial encounter; M25.551 Pain in right hip; M96.1 Postlaminectomy syndrome, not elsewhere classified; M46.1 Sacroiliitis, not elsewhere classified; M48.062 Spinal stenosis, lumbar region with neurogenic claudication; M51.369 Other intervertebral disc degeneration, lumbar region without mention of lumbar back pain or lower extremity pain; M54.16 Radiculopathy, lumbar region; Z79.891 Long term (current) use of opiate analgesic
CPT/HCPCS: 72131; 73700; G0463; J1885

== ENCOUNTER 2025-04-03 09:51 | Outpatient (OUT) | payer OTHER, SELFPAY ==
--- OUTSIDE RECORDS SUMMARY | 2025-04-03 10:12 | XMS_ITS | CCD ---
Author Organization [facility] Care Team Providers Care Flat Grinder Operator Name Role Phone Chandan Cool Unavailable Unavailable Sid Ac Unavailable Unavailable Required, No Pcp Unavailable Unavailable Chuck Cook Unavailable None, No PCP Unavailable Unavailable [facility], [facility] Primary Care Unavailable WEST, DR RADHA Gaxiola Consulting Unavailable DUNCAN ., DR LLUVIA Sheldon Attending Unavailable DUNCAN ., DR LLUVAI Sheldon Admitting Unavailable DUNCAN ., DR LLUVIA Sheldon Consulting Unavailable [facility] Primary Care Unavailable DUNCAN ., DR LLUVIA Sheldon Attending Unavailable DUNCAN ., DR LLUVIA Sheldon Consulting Unavailable DUNCAN ., DR LLUVIA Sheldon Admitting Unavailable [facility] Primary Care Unavailable DUNCAN ., DR LLUVIA Sheldon Attending Unavailable DUNCAN ., DR LLUVIA Sheldon Consulting Unavailable DUNCAN ., DR LLUVIA Sheldon Admitting Unavailable [facility] Primary Care Unavailable ANDERSEN .RAVINDER Consulting Unavailable DUNCAN ., DR LLUVIA Sheldon Admitting Unavailable DUNCAN ., DR LLUVIA Sheldon Attending Unavailable [facility] Primary Care Unavailable ANDERSEN .RAVINDER Consulting Unavailable DUNCAN ., DR LLUVIA Sheldon Admitting Unavailable DUNCAN ., DR LLUVIA Sheldon Attending Unavailable [facility] Primary Care Unavailable LAKSHMIPATHY ., NARENDRANATH Attending Nadira vailable LAKSHMIPATHY ., NARENDRANATH Admitting Nadira vailable FAWAD, [facility] Primary Care Unavailable LAKSHMIPATHY ., NARENDRANATH Attending Nadira vailable LAKSHMIPATHY ., NARENDRANATH Consulting Nadira vailable LAKSHMIPATHY ., NARENDRANATH Admitting Nadira vailable FAWWAD, [facility] Primary Care Unavailable LAKSHMIPATHY ., NARENDRANATH Consulting Nadira vailable LAKSHMIPATHY ., NARENDRANATH Admitting Nadira vailable LAKSHMIPATHY ., NARENDRANATH Attending Nadira vailable SHAIK MALIKH Mina Primary Care Unavailable NATHALY .RAVINDER Consulting Unavailable CUCO ., DR LLUVIA Sheldon Attending Unavailable CUCO ., DR LLUVIA Sheldon Admitting Unavailable SHAIKH Mina MALIK Primary Care Unavailable LAKSHMIPATHY ., NARENDRANATH Attending Nadira vailable RINA, DR DOMINGA William Consulting Unavailable LAKSHMIPATHY ., NARENDRANATH Admitting Nadira vailable LAKSHMIPATHY ., NARENDRANATH Consulting Nadira vailable Lakshmipathy , Tonny Unavailable [phone] Rosa Barker MD Unavailable Nikunj Carmona MD Primary Care Provider Natanael DISTRICT PLANT ENGINEER, Mani Unavailable [phone] ELIAS MANZANO Attending Unavailable ELIAS MANZANO Attending Unavailable ELIAS MANZANO Attending Unavailable Neida ZAPIEN, Jonas Malin Attending Unavailable Neida ZAPIEN, Jonas Malin Attending Unavailable NIKUNJ CARMONA Attending Unavailable NIKUNJ CARMONA Attending Unavailable MANI SANTOYO Attending UnavailMANI Menon Attending UnavailMANI Menon Attending UnavailHUSAM Pelaez Attending Unavailable HUSAM MUÑOZ Referring Unavailable Nikunj Carmona MD Unavailable Medications Current Medications Medication Drug Class(es) [...] Substitution Allowed albuterol 0.417 mg/ml inhalation solution (10 sources) beta2-Adrenergic Agonist albuterol 1.25 MG/3ML nebulizer solution Take 1.25 mg by nebulization every 6 (six) hours if needed for wheezing Active atenolol 25 mg oral tablet (20 sources) beta-Adrenergic Mook Start: 01-25-2017 take 1 tablet by mouth once daily atenolol (Tenormin) 25 MG tablet Take 25 mg by mouth Daily 05/23/2024 Active atorvastatin 20 mg oral tablet (20 sources) HMG-CoA Reductase Inhibitor Start: 02-23-2024 take 1 tablet by mouth once daily atorvastatin (Lipitor) 20 MG tablet Indications: Hyperlipidemia, unspecified TAKE 1 TABLET BY MOUTH DAILY [...] 1 tablet before bedtime. 180 tablet 08/09/2024 Active Start: 07-16-2024 End: 11-05-2024 take 5-120 [...] by mouth two times a day. Active cholecalciferol 0.025 mg oral capsule (1 source) Vitamin D take 1 capsule by mouth once daily cholecalciferol (Vitamin D-3) 25 MCG (1000 UT) capsule Take 1 capsule by mouth Daily Active clarithromycin 250 mg oral tablet (20 sources) Macrolide Antimicrobial Start: take 1 tablet by mouth once daily clarithromycin (Biaxin) 250 MG tablet Indications: Rosacea, unspecified TAKE 1 TABLET BY MOUTH DAILY 90 tablet 02/14/2025 Active Start: 11-19-2024 take 1 tablet by lizzie th once daily clarithromycin (Biaxin) 250 MG tablet Indications: Rosacea, unspecified Take 1 tablet (250 mg) by mouth Daily 90 tablet 11/19/2024 Active Start: 02-21-2024 End: 08-15-2024 take 1 [...] 25-Jul-2017 Active diazePAM 10 mg oral tablet (6 sources) Benzodiazepine Start: 04-02-2024 End: 05-03-2024 diazePAM [...] nasal spray (20 sources) Corticosteroid Start: 03-15-2023 fluticasone (FLONASE) 50 mcg/actuation nasal spray 2 Sprays. 03/15/2023 Active Start: 03-15-2023 take 2 spray(s) nasa l route in the morning fluticasone (Flonase) 50 MCG/ACT nasal spray Administer 2 sprays into each nostril in the morning. 03/15/2023 Active hydroCHLOROthiazide 12.5 mg / losartan potassium 50 mg oral tablet (20 sources) Thiazide Diuretic, Angiotensin 2 Receptor Mook Start: 11-19-2024 End: 05-18-2025 take 1 tablet by mouth once daily losartan-hydroCHLOROthiazide (Hyzaar) 50-12.5 MG tablet Indications: Primary hypertension Take 1 tablet by mouth Daily 90 tablet 1 11/19/2024 03/26/2025 Discontinued Start: 02-23-2024 End: 08-21-2024 take 1 tablet by mouth once daily losartan-hydroCHLOROthiazide (Hyzaar) 50-12.5 MG tablet Indications: Primary hypertension (CMS/HCC) TAKE 1 TABLET BY MOUTH DAILY 90 tablet 1 02/23/2024 Active meloxicam 15 mg oral tablet (20 sources) Nonsteroidal Anti-inflammatory Drug Start: 04-10-2024 meloxicam (MOBIC) 15 mg tablet Take 15 mg by mouth. 04/10/2024 Active montelukast 10 mg oral tablet (20 sources) Leukotriene Receptor Antagonist Start: 02-23-2024 take 1 tablet by mouth once daily montelukast (Singulair) 10 MG tablet Indications: Allergic rhinitis, unspecified Take 1 tablet (10 mg) by mouth Daily 90 tablet 1 11/19/2024 Active See emr (1 source) See emr Quantity : 0 Refills: 0 Ordered: 12-Dec-2017 Isabel Dejesus Status: Discontinued Generic Substitution Allowed 1 ml testosterone cypionate 200 mg/ml injection (20 sources) Androgen Start: 09-11-2024 End: 02-26-2025 testosterone cypionate (Depo-Testosterone) 200 MG/ML injection Indications: Hypopituitarism (HCC) Inject 0.5 mL (100 mg) into the shoulder, thigh, or buttocks every 14 (fourteen) days 3 mL 1 09/11/2024 Active Start: 12-12-2023 testosterone c ypionate (DEPO-TESTOSTERONE) 200 mg/mL injection Inject 100 mg intramuscularly every 4 weeks. 12/12/2023 Active Start: 12-12-2023 End: 09-11-2024 testosterone cypionate (Depo -Testosterone) 200 MG/ML injection Inject 100 mg into the shoulder, thigh, or buttocks every 28 (twenty-eight) days 12/12/2023 09/11/2024 Discontinued (Reorder) End: 09-11-2024 testosterone enanthate (Xyos catherine) 75 [...] day Quantity: 0 Refills: 0 Ordered: 11-Feb-2021 Jayn Ann Generic Substitution Allowed allopurinol 300 mg [...] 17 MCG/ACT Inhalation Aerosol Solution Refills: 0 Travonharry VALENTINE Chandan Start : 28-Nov-2017 Active lisinopril 20 mg oral tablet (3 sources) Angiotensin Converting Enzyme Inhibitor Start: 01-25-2017 Lisinopril 20 MG Oral Tablet Quantity: 30 Refills: 0 DO Start : 25-Jan-2017 Active phentermine hydrochloride 37.5 mg oral capsule (20 sources) Sympathomimetic Amine Anorectic Start: 01-25-2025 End: 05-02-2025 take 33-33.9 capsules by mouth before mealtime phentermine 37.5 MG capsule Indications: Class 1 obesity due to excess calories with serious comorbidity and body mass index (BMI) of 33.0 to 33.9 in adult Take 1 capsule (37.5 mg) by mouth in the morning. Take before meals. 30 capsule 03/26/2025 04/02/2025 Discontinued (Reorder) Start: 06-21-2024 End: 07-21-2024 take 1 capsule [...] 30 capsule 01/31/2024 05/03/2024 Discontinued (Therapy completed) sertraline 50 mg oral tablet (3 sources) [...] Chronic Coronary atherosclerosis and other heart disease (8 sources) Atherosclerotic heart disease of burns paiute coronary artery without angina pectoris; Translations: [Coronary arteriosclerosis] Onset: 05-15-2024 Chronic Disorders of lipid metabolism (20 sources) Hyperlipidemia; Translations: [Hyperlipidemia, unspecified] Onset: 08-18-2023 08-18-2023 Chronic Essential hypertension (20 sources) Hypertensive disorder; Translations: [Unspecified essential hypertension] Onset: 08-18-2023 08-18-2023 Chronic Hypertension with complications and secondary hypertension (2 sources) Hypertensive heart disease without heart failure; Translations: [Hypertensive heart disease without heart failure] Onset: 05-15-2024 Chronic Osteoarthritis (17 sources) Primary osteoarthritis, left shoulder; Translations: [Primary [...] Onset: 08-18-2023 08-18-2023 Chronic Other endocrine disorders (18 sources) Hypopituitarism; Translations: [Hypopituitarism] Onset: 08-09-2024 08-09-2024 [...] Onset: 01-29-2022 Chronic Other nervous system disorders (20 sources) Chronic pain syndrome; Translations: [Chronic pain [...] (BMI) 31.0-31.9, adult] Onset: 05-14-2024 Chronic Other screening for suspected conditions (not mental disorders or infectious disease) (7 sources) Computed tomography result abnormal; Translations: [Abnormal findings on diagnostic imaging of other specified body structures] Onset: 03-26-2025 03-26-2025 Chronic Other upper respiratory disease (20 sources) Seasonal allergic rhinitis; Translations: [Other seasonal allergic rhinitis] Onset: 08-18-2023 08-18-2023 Chronic Other upper respiratory disease (20 sources) Allergic rhinitis; Translations: [Allergic rhinitis, unspecified] Onset: 12-29-2023 Resolved: 01-25-2025 12-29-2023 Chronic Residual codes; unclassified (2 sources) Obstructive sleep apnea (adult) (pediatric); Translations: [Obstructive sleep apnea (adult) (pediatric)] Onset: 05-14-2024 Chronic Residual codes; unclassified (2 sources) Pain; Translations: [Pain, unspecified] 04-02-2025 Episodic Spondylosis; intervertebral disc disorders; other back problems (3 sources) Spondylosis without myelopathy or radiculopathy, cervical region; Translations: [Other cervical disc degeneration, unspecified cervical region] Onset: 05-23-2022 Chronic Spondylosis; intervertebral disc disorders; other back problems (17 sources) Cervicalgia; Translations: [Muscle spasm of back] [...] Date Documented Da te Episodic/Chronic Cardiac dysrhythmias (20 sources) Atrial fibrillation; Translations: [Unspecified atrial fibrillation] Onset: 09-26-2023 Resolved: 11-23-2023 11-23-2023 Chronic Mood disorders (6 sources) Mood disorders Onset: 01-25-2025 01-25-2025 Other connective tissue disease (1 source) Other muscle spasm; Translations: [OTHER MUSCLE SPASM] Onset: 05-23-2022 Episodic Other lower respiratory disease (20 sources) Paralysis of diaphragm ; Translations: [Disorders of diaphragm] Onset: 06-06-2024 06-06-2024 Episodic Other lower respiratory disease (2 sources) Other forms of dyspnea; Translations: [Other forms of dyspnea] Onset: 07-11-2024 Episodic Other nutritional; endocrine; and metabolic disorders (20 sources) Weight increased; Translations: [Abnormal weight gain] Onset: 08-18-2023 Resolved: 01-25-2025 08-18-2023 Episodic Other nutritional; endocrine; and metabolic disorders (5 sources) Weight gain; Translations: [Abnormal weight gain] Onset: 08-18-2023 08-18-2023 Episodic Other screening for suspected conditions (not mental disorders or infectious disease) (20 sources) Patient encounter status; Translations: [Encounter for screening for malignant neoplasm of colon] Onset: 08-18-2023 08-18-2023 Episodic Residual codes; unclassified (16 sources) Reduced libido; Translations: [Decreased libido] Onset: 08-09-2024 08-09-2024 Episodic Unclassified (1 source) Obesity, class 1; Translations: [Obesity, class 1] Onset: 07-11-2024 NEGATED: Highlighted row has not occurred!Residual codes; unclassified (14 sources) Disease Episodic Results Test Name Value Interpretation Reference Range Facility XR Pelvis and Hip - left AP and Lateral frogon 04-02-2025 IMPRESSION: No acute osseous abnormality. Mild bilateral hip osteoarthritis, more pronounced in the left than on the right. Package Center Supervisor: SINAN Transcribe Date/Time: Apr 02 2025 2:10P Dictated by : CUCA JOLLEY MD This examination was interpreted and the report reviewed and electronically signed by: CUCA JOLLEY MD on Apr 02 2025 5:00PM [facility] DIVISION OF RADIOLOGY * * *Final Report* * * DATE OF EXAM: Apr 02 2025 11:26AM AFR [id number] - XR HIP 3V PELV+ AP/LAT LT / PROCEDURE REASON: Pain * * * * Physician Interpretation * * * * EXAMINATION / TECHNIQUE: XR HIP 3V PELV+ AP/LAT LT PATIENT/TECHNOLOGIST PROVIDED HISTORY: left hip pain CLINICAL INFORMATION ( PROVIDED BY ORDERING CLINICIAN) : Pain COMPARISON: None RESULT: No acute fracture or dislocation. Mild bilateral hip osteoarthritis, more pronounced on the left than on the right. Sacroiliac joint spaces are maintained, as is the pubic symphysis. Incompletely evaluated degenerative changes in the lower lumbar spine. DIVISION OF RADIOLOGY Provider, [facility] - 04/02/2025 * * *Final Report* * * DATE OF EXAM: Apr 02 2025 11:26AM AFR [id number] - XR HIP 3V PELV+ AP/LAT LT / PROCEDURE REASON: Pain * * * * Physician Interpretation * * * * EXAMINATION / TECHNIQUE: XR HIP 3V PELV+ AP/LAT LT PATIENT/TECHNOLOGIST PROVIDED HISTORY: left hip pain CLINICAL INFORMATION ( PROVIDED BY ORDERING CLINICIAN) : Pain COMPARISON: None RESULT: No acute fracture or dislocation. Mild bilateral hip osteoarthritis, more pronounced on the left than on the right. Sacroiliac joint spaces are maintained, as is the pubic symphysis. Incompletely evaluated degenerative changes in the lower lumbar spine. IMPRESSION IMPRESSION: No acute osseous abnormality. Mild bilateral hip osteoarthritis, more pronounced in the left than on the right. Package Center Supervisor: SINAN Transcribe Date/Time: Apr 02 2025 2:10P Dictated by : CUCA JOLLEY MD This examination was interpreted and the report reviewed and electronically signed by: CUCA JOLLEY MD on Apr 02 2025 5:00PM EST [facility] Radiology Study observation (narrative) [facility] XR Pelvis and Hip - left AP and Lateral frogOrdered By: Ccf Provider on 04-02-2025 [facility] ALL HEMOGLOBINon 03-01-2025 Hemoglobin (Bld) [Mass/Vol] 17.8 g/dL 14.0 - 18.0 g/dL [facility] (FAST[facility])o n 01-11-2025 CHOL HDL RATIO 2.1 [facility] Comment on above: 3.3 - 4.4 LOW RISK 4.4 - 7.1 AVERAGE RISK 7.1 - 11.0 MODERATE RISK >11.0 HIGH RISK Cholesterol [Mass/Vol] 96 mg/dL NINF - 200 mg/dL [facility] Cholesterol in HDL [Mass/Vol] 46 mg/dL 40 - 60 mg/dL [facility] Comment on above: > or =60 mg/dl - LOW CARDIOVASCULAR RISK <40 mg/dl - HIGH CARDIOVASCULAR RISK Magnesium [Mass/Vol] 41 mg/dL [facility] Comment on above: <100 mg/dl OPTIMAL 100-129 mg/dl NEAR OR ABOVE OPTIMAL 130-159 mg/dl BORDERLINE HIGH 160-189 mg/dl HIGH >190 mg/dl VERY HIGH Magnesium [Mass/Vol] 9 mg/dL [facility] Triglyceride [Mass/Vol] 45 mg/dL NINF - 150 mg/dL [facility] Deandre 01-11-2025 ALT [Catalytic activity/Vol] 43 U/L 16 - 63 U/L [facility] Gerard 01-11-2025 AST [Catalytic activity/Vol] 27 U/L 15 - 37 U/L [facility] No Panel Informationon 01-11 [facility] Office Visiton 01-11-2025 Follow-up visit [id number] Rigo Jefferson 1960 M Date Provider Department Center 01/11/2025 [id number] MANZANO Family History Problem Relation Age of Onset Diabetes Mother Hypertension Mother Hypertension Father Coronary artery disease Brother Hypertension Brother Diabetes Brother Family Status - Relation Status Age at Mother Father Brother Level of Service:69911 [place] OFFICE/OUTPATIENT ESTABLISHED MOD MDM 30 MIN Reason for Visit and Comments: Coronary Artery Disease [187] - Denies chest pain. Hyperlipidemia [182] - Had lipids drawn this morning s/p increase in atorvastatin to 40mg daily in Sep 2024. Tolerating higher dose without issues. Hypertension [723327] Shortness of Breath [390669] Dizziness [] - Gets dizzy when he stands up and bends over, especially when the weather is hot. Normal [facility] ALL HEMOGLOBINon 09-07-2024 Hemoglobin (Bld) [Mass/Vol] 17.8 g/dL 14.0 - 18.0 g/dL [facility] ALL HEMOGLOBINon 08-24-2024 Hemoglobin (Bld) [Mass/Vol] 17.6 g/dL 14.0 - 18.0 g/dL [facility] Office Visiton 07-11-2024 Follow-up visit [id number] Rigo Jefferson 1960 [facility] Provider Department Center 07/11/2024 [id number] FINE Family History Problem Relation Age of Onset Diabetes Mother Hypertension Mother Hypertension Father Coronary artery disease Brother Hypertension Brother Diabetes Brother Family Status - Relation Status Age at Mother Father Brother Level of Service:97925 [place] OFFICE/OUTPATIENT ESTABLISHED MOD MDM 30 MIN Reason for Visit and Comments: Coronary Artery Disease [187] Hypertension [227229] - Started on atenolol at last visit, had echo in may Hyperlipidemia [182] Shortness of Breath [] - PT ONLY HAS ONE LUNG Normal [facility] 36on 06-11-2024 36 From: Elias Manzano [...] in his pulse ox with exercise Normal [facility] Telephoneon 06-11-2024 Telephone [id number] Rigo Jefferson 1960 [facility] Provider Department Center 06/11/2024 [id number] RIVERA Family History Problem Relation Age of Onset Diabetes Mother Hypertension Mother Hypertension Father Coronary artery disease Brother Hypertension Brother Diabetes Brother Family Status - Relation Status Age at Mother Father Brother Normal [facility] No Panel Informationon 05-31 Radiology Study observation (narrative) [facility] XR CERV OTHER 4V AP/LAT/FLX/ EXTon 05-31-2024 IMPRESSION: Severe degenerative disc disease C4-C5. Solid bony fusion C5-C7. Package Center Supervisor: SINAN Transcribe Date/Time: May 31 2024 9:27P Dictated by : JENN SANTOYO MD This examination was interpreted and the report reviewed and electronically signed by: JENN SANTOYO MD on May 31 2024 9:29PM EST [facility] * * *Final Report* * [...] and extension. No prevertebral soft tissue swelling. [facility] * * *Final [...] disc disease C4-C5. Solid bony fusion C5-C7. Package Center Supervisor[facility] Transcribe Date/Time: May 31 2024 9:27P Dictated by : JENN SANTOYO MD This examination was interpreted and the report reviewed and electronically signed by: JENN SANTOYO MD on May 31 2024 9:29PM EST [facility] XR CERV OTHER 4V AP/LAT/FLX/ EXTOrdered By: Ccf Provider on 05-31-2024 [facility] XR Lumbar spine Views W flex ion and W extensionon 05-31-2024 IMPRESSION: Mild to moderate multilevel degenerative change lumbar spine and suspected diffuse intrahepatic skeletal hyperostosis. Package Center Supervisor[facility] Transcribe Date/Time: May 31 2024 9:29P [...] compression deformity identified. [facility] Provider, Anderson [facility] - 05/31/2024 * * *Final Report* [...] spine and suspected diffuse intrahepatic skeletal hyperostosis. Package Center Supervisor: SINAN Transcribe Date/Time: May 31 2024 9:29P Dictated by : JENN SANTOYO MD This examination was interpreted and the report reviewed and electronically signed by: JENN SANTOYO MD on May 31 2024 9:31PM EST [facility] Office Visiton 05-14-2024 Follow-up visit [id number] Rigo Jefferson 1960 M Date Provider Department Center 05/14/2024 [id number] MANZANO [facility] Family History Problem Relation Age of Onset Diabetes Mother Hypertension Mother Hypertension Father Coronary artery disease Brother Hypertension Brother Diabetes Brother Family Status - Relation Status Age at Mother Father Brother Level of Service:58353 [place] OFFICE/OUTPATIENT NEW MODERATE MDM 45 MINUTES Reason for Visit and Comments: Hypertension [275457] - New patient to re-establish care. Ref for hypertension. Used to be on antihypertensives but is currently on none. Palpitations [] - Sometimes Shortness of Breath [] - Has 1 lung, hx of COPD, pulmonary emphysema Dizziness [] Normal [facility] MRI SHOULDER LT WO CONon MRI [...] by: DOMINGA FLYNN Date: 2022-12-08 10:25 Normal [facility] MRI SHOULDER RT WO CONon MRI [...] by: DOMINGA FLYNN Date: 2022-12-08 10:35 Normal [facility] XR CSPINE OBL FLEX_EXTon XR CSPINE [...] Normal [facility] Post Op (General Surgery)on 04-02-2021 Post Op [...] not he wants to follow-up with a router tender in our system. Provider Impressions He is [...] not he wants to follow-up with a router tender in our system. Chief Complaint An interactive [...] not he wants to follow-up with a router tender in our system. Active Problems COPD (chronic [...] MG Oral Tablet Results/Data Xray Chest 1 [id number] 04:27PMJesusita Stevenson Test NameResultFlagReference Xray Chest 1 View(Report) FINAL REPORT Interpreted by: МАРИНА MARCELO MD 02/12/21 16:52 Patient Name: RIGO JEFFERSON STUDY: CHEST 1 VIEW; 02/12/2021 4:27 pm INDICATION: chest tube removal. COMPARISON: Prior 11:07 a.m. radiograph. ACCESSION NUMBER(S): [id number] ORDERING CLINICIAN: JESUSITA STEVENSON FINDINGS: Left basilar [...] Apr 02 2021 5:38PM EST (Author) Normal [facility] Admission Risk Screen - Adul ton 02-12-2021 Admission Risk Screen - Adult Allergies: Allergies: No Known Allergies: Patient Verification: New W ID Band Applied in my Departmentno Type of ID Patient is WearingW wristband, but not applied here Patient Transferred from Other [facility] Patient Identity Verified [...] AlertFor Ebola-like Symptoms: Isolate Patient and Notify Provider/Fence Supervisor For Contact: Notify Provider/Fence Supervisor Advance Directive: Advance Directive/DNRno (1) Advance Directive [...] Learning Preferencesverbal instruction Cultural Considerationsnone Developmental Considerationsnone Lutheran Considerationsnone Learning Assessment (Other Learner): Other learner availableno Depression Screen: During the past month, have you often been bothered by feeling down, depressed or hopelessno (1) During the past month, have you often had little interest or pleasure in doing thingsno (1) Have you had any thoughts of harming anyone elseno (1) [place] Suicide: Risk Screen Not Applicable/Able to Answerable to be screened In the Past Month: Have you wished you were or could go to sleep and not wake upno(1) In the Past Month: Have you had any actual thoughts of killing yourself no(1) Lifetime: Have you ever done, started to do, or prepared to do anything to end your lifeno(1) [place] Suicide Risknegative Adult Nutrition Screen: Have you [...] Pain (nonverbal)verbalization (more content not included)... Normal [facility] BASIC METABOLIC PANELon 02-03-2020 Anion gap [Moles/Vol] 15 mmol/L Normal 10 - 20 [facility] Comment on above: Performed By: #### B MP #### [facility] [address] [place] [address] Calcium [Mass/Vol] 9.5 mg/dL Normal 8.6 - 10.6 [facility] Comment on above: Performed By: #### B MP #### [facility] [address] [place] [address] Chloride [Moles/Vol] 102 mmol/L Normal 98 - 107 [facility] Comment on above: Performed By: #### B MP #### [facility] [address] [place] [address] Creatinine [Mass/Vol] 0.98 mg/dL Normal 0.50 - 1.30 [facility] Comment on above: Performed By: #### B MP #### [facility] [address] [place] [address] GFR- AM. >60 Normal >60 [facility] Comment on above: Result Comment: CALC ULATIONS OF ESTIMATED GFR ARE PERFORMED USING THE MDRD STUDY EQUATION FOR THE IDMS-TRACEABLE CREATININE METHODS. CLIN CHEM 2007;53:766-72 Performed By: #### B MP #### [facility] [address] [place] [address] GFR-NON AM. >60 Normal >60 [facility] Comment on above: Performed By: #### B MP #### [facility] [address] [place] [address] Glucose [Mass/Vol] 133 mg/dL High 74 - 99 [facility] Comment on above: Performed By: #### B MP #### [facility] [address] [place] [address] HCO3 (Bld) [Moles/Vol] 24 mmol/L Normal 21 - 32 [facility] Comment on above: Performed By: #### B MP #### [facility] [address] [place] [address] Potassium [Moles/Vol] 4.3 mmol/L Normal 3.5 - 5.3 [facility] Comment on above: Performed By: #### B MP #### [facility] [address] [place] [address] Sodium [Moles/Vol] 137 mmol/L Normal 136 - 145 [facility] Comment on above: Performed By: #### B MP #### [facility] [address] [place] [address] Urea nitrogen [Mass/Vol] 17 mg/dL Normal 6 - 23 [facility] Comment on above: Performed By: #### B MP #### [facility] [address] [place] [address] CBCon 02-12-2021 Erythrocyte distribution width (RBC) [Ratio] 12.1 % Normal 11.5 - 14.5 [facility] Comment on above: Performed By: #### C BC #### [facility] [address] [place] [address] Hematocrit (Bld) [Volume fraction] 45.8 % Normal 41.0 - 52.0 [facility] Comment on above: Performed By: #### C BC #### [facility] [address] [place] [address] Hemoglobin (Bld) [Mass/Vol] 15.0 g/dL Normal 13.5 - 17.5 [facility] Comment on above: Performed By: #### C BC #### [facility] [address] [place] [address] MCHC (RBC) [Mass/Vol] 32.8 g/dL Normal 32.0 - 36.0 [facility] Comment on above: Performed By: #### C BC #### [facility] [address] [place] [address] MCV (RBC) [Entitic vol] 94 fL Normal 80 - 100 [facility] Comment on above: Performed By: #### C BC #### [facility] [address] [place] [address] NUCLEATED RBC 0.0 /100 WBC Normal 0.0-0.0 [facility] Comment on above: Performed By: #### C BC #### [facility] [address] [place] [address] Platelets (Bld) [#/Vol] 228 10*3/uL Normal 150 - 450 [facility] Comment on above: Performed By: #### C BC #### [facility] [address] [place] [address] RBC 4.85 x10E12/L Normal 4.50 - 5.90 [facility] Comment on above: Performed By: #### C BC #### [facility] [address] [place] [address] WBC (Bld) [#/Vol] 12.8 10*3/uL High 4.4 - 11.3 [facility] Comment on above: Performed By: #### C BC #### [facility] [address] [place] [address] Clinical Event Note-POCon Clinical Event Note-POC Clinical [...] 00:41 by Nataliia Ferris ( (Resident)) Normal [facility] Daily Progress Note-Surgeryo n 02-12-2021 [...] yet. Objective Data: Objective Information: T PRBPSpO2 Value35.45873845/8695% Date/Time02/12 6:4902/12 6:4902/12 6:4902/12 6:4902/12 6:49 Range(35.4C - 36.4C ) (77 - 99 ) (17 - 18 ) (127 - 147 )/ (86 - 91 ) (95% - 96% ) Pain reported at 02/12 2:54: 6 = Moderate ---- Intake and Output ----- Mn/Dy/Year TimeIntakeOutputNet Feb 12, 2021 6:00 [id number] Feb 11, 2021 10:00 [id number] The Intake and Output Totals for the last 24 hours are: IntakeOutputNet [id number] Physical Exam by System: Constitutional: Well developed, [...] Last Updated: 13-Feb-2021 10:13 by Chuck Cook) [facility] Discharge Planning Gkdo2np 0 02-12-2021 Discharge Planning Note2 Discharge Planning: Needs Prior to Discharge (ex. Home Care Orders, IV/O2 prescriptions) Follow up appointments Discharge Barriers (ex. Avoidable days, wait guardianship, pt refuse leave) None Planned Dispositionhome [facility]charge [facility] [place] of Choice Explainedyes preference Anticipated Discharge Tjwo46-Jpz-5118 Discharge Planning 02/12/2021 0135 Discharge Plan Patient transferred from [place] [address] from PACU for diaphragm plication. Pt is A&O times 4. at 3 liters oxygen. 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 Pt have valuable belongings [...] disposition: Home Potential Barriers: none ADOD: 02/12. life skills coordinator volunteer will continue to follow for discharge planning needs. Franny Gilliam RN, Transitional Lieutenant Colonel/TCC, pager [phone] Discharge note: 02/12/21 @ 1735: PT discharged home at this time. pts peripheral IV taken out prior to DC. pt given DC instructions. pt verbalized understanding. pt refused transport and walked downstairs with his son.---Erika miramontes RN Assessment: Discharge Planning Assessment [id number]-6052 Primary Contact Name and NumberAdam [phone](1) Stated Reason for Admissiondiaphragm plication(2) Arrived FromOR (2) Lives Withparent(s)(2) Living Arrangementshouse(2) Resource/Environmental Concernsnone(2) [place](2) Services Anticipated at Transitionnone(2) Discharge Documentation: Discharge/Transfer Date/Cofy45-Uyl-1921 17:35 Discharge Modeambulatory Discharged Accompanied Byfamily member [...] Profile - Adult v2 12-Feb-2021 01:31 Normal [facility] Discharge Hssflcs6uf 021 Discharge Profile2 Discharge Orders: Anticipated Discharge Date: Anticipated Discharge [id number]-Wnm-8062 DNAR: DNAR Status: none Call Provider If [...] hemidiaphragm plication Call to Schedule in2 weeks [id number] [place] [address] Phone [phone] Other Clinician Instructions: Other Instructions: Other Clinician [...] Appointments, Other Clinician Instructions, Gold Form - Chute Builder Summary Last Updated: 12-Feb-2021 15:27 by Jesusita Stevenson ( (Resident)) Normal [facility] Laboratory - Chemistry and C hemistry - challengeon 02-12-2021 Anion gap [Moles/Vol] 15 mmol/L 10 - 20 XF-Tmvijkh-O [address] Work Phone: Calcium [Mass/Vol] 9.5 mg/dL 8.6 - 10.6 MG-Tino raysa-G [address] Work Phone: Chloride [Moles/Vol] 102 mmol/L 98 - 107 GY[address]Fnu[address] Work Phone: CO2 [Moles/Vol] 24 mmol/L 21 - 32 MG-Surger y-[facility] Work Phone: [phone] Creatinine [Mass/Vol] 0.98 mg/dL See Below CH-Euqyywp-H [address] Work Phone: Comment on above: Reference Range: 0.5 0 - 1.30 Glucose [Mass/Vol] 133 mg/dL above high threshold 74 - 99 XP-Tiueptn-L [facility] Work Phone: Potassium [Moles/Vol] 4.3 mmol/L 3.5 - 5.3 PH-Ttxpcph-U [facility] Work Phone: [phone] Sodium [Moles/Vol] 137 mmol/L 136 - 145 MG-Tino raysa-G [facility] Work Phone: Urea nitrogen [Mass/Vol] 17 mg/dL 6 - 23 YI-Ettxuho-G [facility] Work Phone: Laboratory - Hematology and Cell countson 02-12-2021 Erythrocyte distribution width (RBC) [Ratio] 12.1 % See Below YU-Ouceeau-P [address] Work Phone: Comment on above: Reference Range: 11. 5 - 14.5 Hematocrit (Bld) [Volume fraction] 45.8 % See Below JL-Wykgtas-O [address] Work Phone: Comment on above: Reference Range: 41. 0 - 52.0 Hemoglobin (Bld) [Mass/Vol] 15.0 g/dL See Below TI-Zslsdaj-G [address] Work Phone: Comment on above: Reference Range: 13. 5 - 17.5 MCHC (RBC) [Mass/Vol] 32.8 g/dL See Below UA-Wqolaoq-R [address] Work Phone: Comment on above: Reference Range: 32. 0 - 36.0 MCV (RBC) [Entitic vol] 94 fL 80 - 100 IG-Bwvqhrr-I [address] Work Phone: Platelets (Bld) [#/Vol] 228 10*3/uL 150 - 450 GB-Vjfrbbr-H [facility] Work Phone: RBC (Bld) [#/Vol] 4.85 {x10E12/L} See Below MG -Surgery-[facility] [place] [address] Work Phone: Comment on above: Reference Range: 4.5 0 - 5.90 WBC (Bld) [#/Vol] 12.8 10*3/uL above high threshold 4.4 - 11.3 AF-Lfsaorx-A [place] [address] Work Phone: No Panel Informationon 02-12 >60 >60 OR-Njhnsyw-F [place] [address] Work Phone: Comment on above: CALCULATIONS OF LANRE MATED GFR ARE PERFORMED USING THE MDRD STUDY EQUATION FOR THE IDMS-TRACEABLE CREATININE METHODS. CLIN CHEM 2007;53:766-72 0.0 {/100_WBC} 0.0-0.0 MG-Surgery -G [place] [address] Work Phone: Order Reconciliationon 02-12 Order Reconciliation [...] tab(s) orally 2 times a day Normal [facility] Patient Profile - Adult v2on 02-12-2021 Patient Profile - Adult v2 Profile: Initial Info: How to be AddressedDel(1) Spoken Language PreferredEnglish (1) Stated Reason for Admissiondiaphragm plication Patient Belongingsremains with patient Patient Belongings Remaining with Patientcash/credit card; clothing Arrived FromOR Medications Brought to Hospitalno Are you currently using the Personal Electronic Health Record or U.S. Local News Networkno (1) Wants Family/Rep Notified of Admissionyes, primary contact Notify PCPnotify PCP Informed of Patient Visiting Rightsyes General Health: Blood Avoidance/Restrictionsnone (1) Previous Transfusion Reactionno(2) Weight in kg109.8 kilogram(s)(3) Weight in qse577 pound(s) Weight Methodactual (measured) (3) Scale Typestanding [...] From 1. Vital Signs 11-Feb-2021 12:02 Normal [facility] Radiologyon 02-12-2021 XR Chest Single view Normal US-Hdyxbxy-[address] Work Phone: XR Chest Single view Normal GN-Ytpwsqu-[address] Work Phone: XR Chest Single view Normal RJ-Cxxahwm-K [address] Work Phone: TH CHEST 1 VIEWon 02-12-2021 TH CHEST 1 VIEW Patient Name: RIGO JEFFERSON STUDY: CHEST 1 VIEW; 02/12/2021 4:27 pm INDICATION: chest tube removal. COMPARISON: Prior 11:07 a.m. radiograph. ACCESSION NUMBER(S): [id number] ORDERING CLINICIAN: JESUSITA STEVENSON FINDINGS: Left basilar [...] Electronically signed by: МАРИНА MARCELO MD Normal [facility] TH CHEST 1 VIEW Patient Name: RIGO JEFFERSON STUDY: CHEST 1 VIEW; 02/12/2021 11:58 am INDICATION: chest tube wet seal. COMPARISON: 7:02 a.m. radiograph. ACCESSION NUMBER(S): [id number] ORDERING CLINICIAN: JESUSITA STEVENSON FINDINGS: Left basilar [...] Electronically signed by: МАРИНА MARCELO MD Normal [facility] CHEST 1 VIEW Patient Name: RIGO JEFFERSON STUDY: CHEST 1 VIEW; 02/12/2021 7:13 am INDICATION: POD 1 s/p diaphragm plication. COMPARISON: 02/11/2021. ACCESSION NUMBER(S): [id number] ORDERING CLINICIAN: SAW SALEEM FINDINGS: Left basilar [...] Electronically signed by: МАРИНА MARCELO MD Normal [facility] No Panel Informationon 02-11 [place] [address] Work Phone: Operative Reports - [facility] [place] [address] Patient Name: RIGO JEFFERSON : 1960 Date of Service: 02/11/2021 Patient Location: [place] [address] Patient Type: I Surgeon: Chuck Cook MD Report Type: Operative Reports PREOPERATIVE DIAGNOSIS: Chronic respiratory failure, left diaphragm dysfunction. POSTOPERATIVE DIAGNOSIS: Chronic respiratory failure, left diaphragm dysfunction. OPERATION/PROCEDURE: Laparoscopic left diaphragm plication with removal of previous diaphragm pacing wires. SURGEON: Chuck Cook MD CAR GROOMER(S): Saw Saleem MD. There was no available resident. ANESTHESIA: LOCATION: [facility]. CLINICAL NOTE: This is a patient with [...] TT: 02/12/2021 12:44 PM EST DICTATION NUMBER: [id number] BRIE JOB NUMBER: [id number] CC: PT STATES NONE PCP Electronic Signatures: Chuck Cook) (Signed on 13-Feb-2021 10:15) Authored Unsigned, Draft (SYS GENERATED) (Entered on 12-Feb-2021 12:44) Entered Last Updated: 13-Feb-2021 10:15 by Chuck Cook) Normal [facility] Order Reconciliationon 02-11 Order Reconciliation Page 1 Admission Reconciliation Document Reconciliation Type: Admission from OR requested on behalf of Saw Saleem (Physician) done by Saw Saleem) Admission from OR - Reconciliation: 11-Feb-2021 18:31 by: Saw Saleem) Home MedicationsEnteredLast Dose TakenReconciled with current Order Reconciliation Comment/ Additional Information Kristina 24 Hour Allergy oral tablet 1 tab(s) orally once a iyg96-Kqa-054911-Feb-2021 AM Reviewed and Held clarithromycin 250 mg oral tablet 250 milligram(s) orally once a day Clarithromycin Tablet (BIAXIN)DOSE = 250 mg Oral Every 24 Hoursclarithromycin 250 mg oral tablet continued as the inpatient order Clarithromycin diclofenac sodium 50 mg oral delayed release tablet 1 tab(s) orally 2 times a zwg05-Ase-852110-Boa-1686 AM Reviewed and Held oxycodone-acetaminophen 5 mg-300 mg oral tablet 1 tab(s) orally 2 times a day [id number]-5492 AM Reviewed and Held Additional Current Orders [...] 15 minute(s)Clinician Notes: Carlota-operative order ONLY Normal [facility] Patient Profile - Preop v2on 02-11-2021 Patient Profile - Preop v2 Profile: Initial Info: How to be AddressedDel(1) Spoken Language PreferredEnglish (1) Source of Informationpatient Are you currently using the Personal Electronic Health Record or U.S. Local News Networkno (1) Are you interested in learning more about [email or web address] for the management of your healthnot at this time Stated Reason for AdmissionL pulling of wires/pulling lung down [phone] Patient Belongingspatient educated regarding responsibility for personal items Medications Brought to Hospitalno General Health: Weight in kg109.8 kilogram(s) Weight in wcr434 pound(s) Weight Methodactual (measured) Scale Typestanding Height [...] Learning Preferencesverbal instruction Cultural Considerationsnone Developmental Considerationsnone Lutheran Considerationsnone Other learner availableno [place] RiskPatient location [...] Profile - Adult v2 12-Dec-2017 16:00 Normal [facility] Preop Checkliston 02-11-2021 Preop Checklist Preop Checklist: Preop Checklist: Arrival [id number]-Ixl-3121 Arrival Time11:48 Procedure TypeL laparoscopic diaphragm plication Temperature C36.1 degrees C Temperature F96.9 degrees F Heart Rate70 beats per minute Respiratory Rate12 breath per minute Blood Pressure Mwwdgvlc794 mm/Hg Blood Pressure Dgtbfdttb10 mm/Hg NPO Ancwob85-Aju-9464 00:00 ID Band Onyes Allergy Bandno known [...] 11-Feb-2021 12:02 by Jany Ann (RN) Normal [facility] Radiologyon 02-11-2021 XR Chest Single view Please click on the link to view the study images Normal CP-[place]fuug[place] [address] Work Phone: [facility] Surgical Pathology Depar tmenton 02-11-2021 [facility] Surgical Pathology Department Name RIGO JEFFERSON Pathologist: JACINTO MURRIETA MD Date of Procedure: 02/11/2021 Date Received: 02/12/2021 Date Reported 02/19/2021 Submitting Physician: CHUCK COOK M.D. Location: [facility] Copy To/Referring/Attending: CHUCK COOK M.D. [...] this case. Clinical History: Physician Contact Number: [phone] Fixative (A): Fresh Clinical Diagnosis History: disorders of diaphragm Specimens Submitted As: A: PACING WIRE Gross Description: Received in formalin, labeled with the patient's name and hospital number, are multiple wires with a piece of adipose tissue attached measuring 3.0 x 1.6 x 1.0 cm. A photograph is taken. The attached soft tissue is submitted entirely in one cassette. EXB exb/02/12/2021 [facility] Department of Pathology [address] [place] [address] Normal [facility] Comment on above: Performed By: #### U HCS ####[facility] Surgical Pathology [address] [place] [address] CORONAVIRUS 2019, SCREEN ASY MPTOMATICon 02-10-2021 SARS-CoV-2 (COVID-19) RNA BECCA+probe Ql (Unsp spec) Not detected Normal Not Detected [facility] Comment on above: Result Comment: [...] patient management decisions. Fact sheet for providers: https://www.fda.gov/media/510365/download Fact sheet for patients: https://www.fda.gov/media/561642/download This test has received FDA Emergency Use Authorization (EUA) and has been verified by [facility] ([facility]). This test is only authorized for the duration of time that circumstances exist to justify the authorization of the emergency use of in vitro diagnostic tests for the detection of SARS-CoV-2 virus and/or diagnosis of COVID-19 infection under section 564(b)(1) of the Act, 21 U.S.C. 360bbb-3(b)(1), unless the authorization is terminated or revoked sooner. [facility] is certified under CLIA-88 as qualified to perform high complexity testing. Testing is performed in the [facility] laboratories located at [address] [place] [address]. Performed By: #### C OVSC #### [facility] [address] [place] [address] Covid 19 Resultson 1 SARS-CoV-2 (COVID-19) RNA [...] by the [facility] to see if any of your [...] or Naproxen (Aleve) can also be used. Lncy-yeh-kotdjni cough and cold medicines can be used according to the instructions on the package. Some uake-ivu-szuykkr medicines also contain acetaminophen. Make sure you [...] water are not available, use alcohol-based hand strip presser. Avoid touching your eyes, nose, and mouth [...] 24 alem (more content not included)... Normal [facility] CORONAVIRUS 2019, SCREEN ASY MPTOMATICon 02-09-2021 Lab Specimen Source Nasal, Nasopharyngeal Normal [facility] Comment on above: Performed By: #### C OVSC #### [facility] [address] [place] [address] Coronavirus 2019 RNA by PCR, Screening Asymptomticon 02-09-2021 Coronavirus 2019 RNA by PCR, Screening Asymptomtic Not detected Normal See Below [place]rh[place] [address] Work Phone: Comment on above: SOURCE: Nasal, [...] make patient management decisions.Fact sheet for providers: https://www.fda.gov/media/503749/downloadFact sheet for patients: https://www.fda.gov/media/392657/downloadThis test has received FDA Emergency Use Authorization (EUA) and has been verified by [facility] ([facility]). This test is only authorized for the duration of time that circumstances exist to justify the authorization of the emergency use of in vitro diagnostic tests for the detection of SARS-CoV-2 virus and/or diagnosis of COVID-19 infection under section 564(b)(1) of the Act, 21 U.S.C. 360bbb-3(b)(1), unless the authorization is terminated or revoked sooner. [facility] is certified under CLIA-88 as qualified to perform high complexity testing. Testing is performed in the [facility] laboratories located at [address] [place] [address]. BASIC METABOLIC PANELon 05-2 Anion gap [Moles/Vol] 13 mmol/L Normal 10 - 20 [facility] Comment on above: Performed By: #### B MP ####[id number] [place] [address] Calcium [Mass/Vol] 9.7 mg/dL Normal 8.6 - 10.6 [facility] Comment on above: Performed By: #### B MP ####[id number] [place] [address] Chloride [Moles/Vol] 108 mmol/L High 98 - 107 [facility] Comment on above: Performed By: #### B MP ####[id number] [place] [address] Creatinine [Mass/Vol] 1.04 mg/dL Normal 0.50 - 1.30 [facility] Comment on above: Performed By: #### B MP ####[id number] [place] [address] GFR- AM. >60 Normal >60 [facility] Comment on above: Result Comment: CALC ULATIONS OF ESTIMATED GFR ARE PERFORMED USING THE MDRD STUDY EQUATION FOR THE IDMS-TRACEABLE CREATININE METHODS. CLIN CHEM 2007;53:766-72 Performed By: #### B MP ####[id number] [place] [address] GFR-NON AM. >60 Normal >60 [facility] Comment on above: Performed By: #### B MP ####[id number] [place] [address] Glucose [Mass/Vol] 91 mg/dL Normal 74 - 99 [facility] Comment on above: Performed By: #### B MP ####[id number] [place] [address] HCO3 (Bld) [Moles/Vol] 29 mmol/L Normal 21 - 32 [facility] Comment on above: Performed By: #### B MP ####[id number] [place] [address] Potassium [Moles/Vol] 4.6 mmol/L Normal 3.5 - 5.3 [facility] Comment on above: Performed By: #### B MP ####[id number] [place] [address] Sodium [Moles/Vol] 145 mmol/L Normal 136 - 145 [facility] Comment on above: Performed By: #### B MP ####[id number] [place] [address] Urea nitrogen [Mass/Vol] 13 mg/dL Normal 6 - 23 [facility] Comment on above: Performed By: #### B MP ####[id number] [place] [address] CBCon 01-27-2021 Erythrocyte distribution width (RBC) [Ratio] 12.2 % Normal 11.5 - 14.5 [facility] Comment on above: Performed By: #### C BC ####[id number] [place] [address] Hematocrit (Bld) [Volume fraction] 46.7 % Normal 41.0 - 52.0 [facility] Comment on above: Performed By: #### C BC ####[id number] [place] [address] Hemoglobin (Bld) [Mass/Vol] 15.1 g/dL Normal 13.5 - 17.5 [facility] Comment on above: Performed By: #### C BC ####[id number] [place] [address] MCHC (RBC) [Mass/Vol] 32.3 g/dL Normal 32.0 - 36.0 [facility] Comment on above: Performed By: #### C BC ####[id number] [place] [address] MCV (RBC) [Entitic vol] 96 fL Normal 80 - 100 [facility] Comment on above: Performed By: #### C BC ####[id number] [place] [address] NUCLEATED RBC 0.0 /100 WBC Normal 0.0-0.0 [facility] Comment on above: Performed By: #### C BC ####[id number] [place] [address] Platelets (Bld) [#/Vol] 209 10*3/uL Normal 150 - 450 [facility] Comment on above: Performed By: #### C BC ####[id number] [place] [address] RBC 4.85 x10E12/L Normal 4.50 - 5.90 [facility] Comment on above: Performed By: #### C BC ####[id number] [place] [address] WBC (Bld) [#/Vol] 7.2 10*3/uL Normal 4.4 - 11.3 [facility] Comment on above: Performed By: #### C BC ####[id number] [place] [address] Follow Up (General Surgery)o n 01-27-2021 Follow [...] EKG; Status:Hold For - Scheduling; Requested for:27Jan2021; Perform:[facility] 1800; Due:27Apr2021;Ordered; For:Diaphragm dysfunction, [...] MG Oral Tablet Vitals Vital Signs Recorded: 23Qfc1830 11:12AM Jauvtkshhzc98.1 F Heart Rate77 Sezppbic347 Iyhhgmupf47 Yucfuj000 lb BMI Ndwvumcspf07.64 kg/m2 BSA Calculated2.33 Tobacco Useb) No Physical [...] the r (more content not included)... Normal [employer] No Panel Informationon 01-27 [email or web address] Sports & EntertainmentMUSEPRDAIO0 1:8080 /ivan/museweb.dll?R etrieveTestByDateTime?Sherita yorCO=[id number]&Date=&Time=13%3a24%3a34%3a 00&TestType=ECG&Site=1&Out putType=PDF&Ext=PDF MZ-Jvzwjqv-N [address] Work Phone: Normal sinus rhythm MG-Ramos rgery-G [address] Work Phone: Normal LZ-Udlirrd-S [address] Work Phone: [phone] JX-Cvagnkf-T [address] Work Phone: [phone] AZ-Xpdogrl-T [address] Work Phone: 205 1 MB-Cuhdosm-I [address] Work Phone: 147 1 AL-Dtojcbt-Q [address] Work Phone: [phone] 1 IZ-Hcvwqzn-Y [address] Work Phone: 11 1 GG-Ekmuuxp-X [address] Work Phone: 69 1 NI-Vaawbsj-L [address] Work Phone: 26 1 US-Fxvduog-[address] Work Phone: 40 1 AD-Pglvwjb-J [address] Work Phone: [phone] YT-Ltqrlyf-L [address] Work Phone: 390 1 IJ-Khivzmg-W [address] Work Phone: 92 1 BL-Gefnstn-J [address] Work Phone: 154 1 VM-Tlunwpc-F [address] Work Phone: 70 1 XI-Ruwkbca-Q [address] Work Phone: Radiologyon 01-27-2021 XR Chest 2 Views Normal MG-Surge ry-G [address] Work Phone: TH CHEST 2 VIEW PA AND LATon 01-27-2021 TH CHEST 2 VIEW PA AND LAT Patient Name: RIGO JEFFERSON STUDY: TH CHEST 2 VIEW PA AND LAT; 01/27/2021 11:00 am INDICATION: chronic hypoventilation. COMPARISON: Chest radiograph 04/03/2019 ACCESSION NUMBER(S): [id number] ORDERING CLINICIAN: CHUCK COOK FINDINGS: Inspiratory and [...] Electronically signed by: ANGI CAICEDO MD Normal [facility] Tobacco Screening.on 021 Tobacco use status CPHS b) No EV[facility]N [facility] 107 Work Phone: Tobacco Screening. b) No MG-Tino raysa-G [facility] 107 Work Phone: Otheron 04-03-2019 XR Chest 2 views Interpreted by: ISAK04/03/19 14:06MRN: [id number] Name: RIGO JEFFERSON STUDY:CHEST 2 VIEW PA [...] Electronically signed by: ISAK 04/03/19 14:06 Normal YY-Edxmkxa-P [facility] 107 Work Phone: Vital Signs Date Time Vital Sign Value Performing Clinician Facility 04-02-2025 11:52-0400 Body height 182.9 cm Denver Peguero MD Work Phone: [facility] 04-02-2025 11:52-0400 Body mass index (BMI) [Ratio] 31.33 kg/m2 Denver Peguero MD Work Phone: [facility] 04-02-2025 11:52-0400 Body weight 104.78 kg Denver Peguero MD Work Phone: [facility] 03-26-2025 10:27-0400 Body height 182.9 cm Nikunj Carmona MD Work Phone: [facility] 03-26-2025 10:27-0400 Body mass index (BMI) [Ratio] 32.41 kg/m2 Nikunj Carmona MD Work Phone: [facility] 03-26-2025 10:27-0400 Body temperature 97.81 [degF] Nikunj Carmona MD Work Phone: [facility] 03-26-2025 10:27-0400 Body weight 108.41 kg Nikunj Carmona MD Work Phone: [facility] 03-26-2025 10:27-0400 Diastolic blood pressure 74 mm[Hg] Nikunj Carmona MD Work Phone: [facility] 03-26-2025 10:27-0400 Heart rate 78 /min Nikunj Carmona MD Work Phone: [facility] 03-26-2025 10:27-0400 Respiratory rate 18 /min Nikunj Carmona MD Work Phone: [facility] 03-26-2025 10:27-0400 SaO2% (BldA) [Mass fraction] 97 % Nikunj Carmona MD Work Phone: [facility] 03-26-2025 10:27-0400 Systolic blood pressure 146 mm[Hg] Nikunj Carmona MD Work Phone: [facility] 09-11-2024 10:23-0500 Body height 182.9 cm Husam Muñoz MD Work Phone: [facility] 09-11-2024 10:23-0500 Body mass index (BMI) [Ratio] 31.46 kg/m2 Husam Muñoz MD Work Phone: [facility] 09-11-2024 10:23-0500 Body weight 105.23 kg Husam Muñoz MD Work Phone: [facility] 09-11-2024 10:23-0500 Heart rate 80 /min Husam Muñoz MD Work Phone: [facility] 07-09-2024 10:24-0500 Body height 182.9 cm Mani Santoyo [employer] Work Phone: [facility] 07-09-2024 10:24-0500 Body mass index (BMI) [Ratio] 30.38 kg/m2 Mani Santoyo [employer] Work Phone: [facility] 07-09-2024 10:24-0500 Body temperature 97.11 [degF] Mani Santoyo [employer] Work Phone: [facility] 07-09-2024 10:24-0500 Body weight 101.61 kg Mani Santoyo [employer] Work Phone: [facility] 07-09-2024 10:24-0500 Diastolic blood pressure 70 mm[Hg] Mani Santoyo [employer] Work Phone: [facility] 11-04-2024 10:24-0500 Heart rate 81 /min Mani Santoyo [employer] Work Phone: [facility] 07-09-2024 10:24-0500 Respiratory rate 16 /min Mani Santoyo [employer] Work Phone: [facility] 07-09-2024 10:24-0500 SaO2% (BldA) [Mass fraction] 98 % Mani Santoyo [employer] Work Phone: [facility] 07-09-2024 10:24-0500 Systolic blood pressure 110 mm[Hg] Mani Santoyo [employer] Work Phone: [facility] 06-06-2024 15:30-0400 Body mass index (BMI) [Ratio] 29.43 kg/m2 Mani Santoyo [employer] Work Phone: [facility] 06-06-2024 15:30-0400 Body temperature 97.39 [degF] Mani Santoyo [employer] Work Phone: [facility] 06-06-2024 15:30-0400 Body weight 98.43 kg Mani Santoyo [employer] Work Phone: [facility] 06-06-2024 15:30-0400 Diastolic blood pressure 78 mm[Hg] Mani Santoyo [employer] Work Phone: [facility] 06-06-2024 15:30-0400 Heart rate 73 /min Mani Santoyo [employer] Work Phone: [facility] 06-06-2024 15:30-0400 Respiratory rate 16 /min Mani Santoyo [employer] Work Phone: [facility] 06-06-2024 15:30-0400 SaO2% (BldA) [Mass fraction] 96 % Mani Santoyo [employer] Work Phone: [facility] 06-06-2024 15:30-0400 Systolic blood pressure 122 mm[Hg] Mani Santoyo [employer] Work Phone: [facility] 05-03-2024 11:08-0400 Body height 182.9 cm Mani Waltonpatrick [employer] Work Phone: [facility] 05-03-2024 11:08-0400 Body mass index (BMI) [Ratio] 28.89 kg/m2 Mani Waltonpatrick [employer] Work Phone: [facility] 05-03-2024 11:08-0400 Body temperature 98.2 [degF] Mani Waltonpatrick [employer] Work Phone: [facility] 05-03-2024 11:08-0400 Body weight 96.62 kg Mani Funestrick [employer] Work Phone: [facility] 05-03-2024 11:08-0400 Diastolic blood pressure 74 mm[Hg] Mani Santoyo [employer] Work Phone: [facility] Comment on above: 134/80 RT ARM [employer] CUFF 05-03-2024 11:08-0400 Heart rate 102 /min Mani Waltonpatrick [employer] Work Phone: [facility] Comment on above: 95% O2 05-03-2024 11:08-0400 Systolic blood pressure 164 mm[Hg] Mani Waltonpatrick [employer] Work Phone: [facility] Comment on above: 134/80 RT [employer] CUFF 02-12-2021 14:10-0400 SaO2% (BldA) [Mass fraction] 95 % No Pcp Required [facility] 02-12-2021 14:00-0400 Body temperature 97.16 [degF] No Pcp Required [facility] 02-12-2021 14:00-0400 Diastolic blood pressure 83 mm[Hg] No Pcp Required [facility] 02-12-2021 14:00-0400 Heart rate 81 /min No Pcp Required [facility] 02-12-2021 14:00-0400 Respiratory rate 18 /min No Pcp Required [facility] 02-12-2021 14:00-0400 Systolic blood pressure 131 mm[Hg] No Pcp Required [facility] 02-12-2021 03:31-0400 Body height 182.8 cm No Pcp Required [facility] 02-12-2021 03:31-0400 Body weight 109.8 kg No Pcp Required [facility] 01-27-2021 11:12-0400 Body mass index (BMI) [Ratio] 33.64 kg/m2 Chuck Cook MD Work Phone: [address] Work Phone: 01-27-2021 11:12-0400 Body surface area Derived from formula 2.33 m2 Chuck Cook MD Work Phone: [address] Work Phone: 01-27-2021 11:12-0400 Body temperature 96.1 [degF] Chuck Cook MD Work Phone: [address] Work Phone: 01-27-2021 11:12-0400 Body weight 112.49 kg Chuck Cook MD Work Phone: [address] Work Phone: 01-27-2021 11:12-0400 Diastolic blood pressure 85 mm[Hg] Chuck Cook MD Work Phone: [address] Work Phone: 01-27-2021 11:12-0400 Heart rate 77 /min Chuck Cook MD Work Phone: [address] Work Phone: 01-27-2021 11:12-0400 Systolic blood pressure 157 mm[Hg] Chuck Cook MD Work Phone: [address] Work Phone: 04-03-2019 15:37-0400 BMI (Body Mass Index) 30.11 kg/m2 Chandan Travon WD-Eetbbav[address]100 Work Phone: 04-03-2019 15:37-0400 Body Temperature 97.9 [degF] Chandan [place] YU-Sdqjpef-[address] 2099 Work Phone: 04-03-2019 15:37-0400 Body weight 100.7 kg Chandan Travon PD-Qildybk-Dlzxo ll 2099 Work Phone: 04-03-2019 15:37-0400 BP Diastolic 74 mm[Hg] Chandan Travon TY-Qqowinc-Tdxhf ll 2099 Work Phone: 04-03-2019 15:37-0400 BP Systolic 121 mm[Hg] Chandan [place] BL-Mnvdmhj-Ukjdg ll 2099 Work Phone: 04-03-2019 15:37-0400 BSA (Body Surface Area) 2.23 m2 Chandan [place] MQ-Bczubmq-Ycvzidp 2099 Work Phone: 04-03-2019 15:37-0400 Height 182.88 cm Chandan Travon AQ-Pqhimgz-Kwtjs ll 2099 Work Phone: 04-03-2019 15:37-0400 Pulse (Heart Rate) 58 /min Chandan [place] JN-Qfaifhz-Ds lwell 2099 Work Phone: Encounters Encounter Date Encounter Type Care Provider Facility Start: 04-02-2025 End: 04-02-2025 Refill Nikunj Carmona MD Work Phone: [facility] Comment on above: Class 1 obesity due to excess calories with serious comorbidity and body mass index (BMI) of 33.0 to 33.9 in adult Primary osteoarthrit is of left hip (Primary Dx) Pain [R52] Start: 03-26-2025 End: 03-26-2025 Africa Carmona MD Work Phone: [facility] Start: 03-26-2025 End: 03-26-2025 Africa Carmona MD Work Phone: [facility] Start: 03-26-2025 End: 03-26-2025 Office outpatient visit 25 minutes Nikunj Carmona MD Work Phone: [facility] Comment on above: Primary hypertension (Primary Dx); Chronic obstructive pulmonary disease, unspecified COPD type (HCC); Primary osteoarthritis of left hip; Abnormal CT scan; Degenerative lumbar spinal stenosis; Class 1 obesity due to excess calories with serious comorbidity and body mass index (BMI) of 33.0 to 33.9 in adult Start: 03-26-2025 End: 03-26-2025 ambulatory NIKUNJ CARMONA Not Available Start: 03-01-2025 End: 03-01-2025 Clinisync Result Encounter Generic External Data Provider [facility] External Department Unsolicited Start: 03-01-2025 End: 03-01-2025 Clinisync Result Encounter Generic External Data Provider [facility] External Department Unsolicited Start: 02-26-2025 End: 02-26-2025 Refill Nikunj Carmona MD Work Phone: [facility] Comment on above: Class 1 obesity due to excess calories with serious comorbidity and body mass index (BMI) of 33.0 to 33.9 in adult Start: 01-25-2025 End: 01-25-2025 ambulatory NIKUNJ CARMONA Not Available Start: 01-14-2025 End: 01-14-2025 ambulatory Jonas Carrasquillo MD Facility:[facility] Start: 01-11-2025 End: 01-11-2025 Clinisync Result Encounter Generic External Data Provider [facility] External Department Unsolicited Start: 01-11-2025 End: 01-11-2025 Clinisync Result Encounter Generic External Data Provider [facility] External Department Unsolicited Start: 01-11-2025 End: 01-11-2025 ambulatory [facility] Start: 12-24-2024 End: 12-24-2024 ambulatory Jonas Carrasquillo MD Facility: [facility] Start: 09-11-2024 End: 09-14-2024 Telephone encounter Husam Muñoz MD Work Phone: [facility] Comment on above: Results Start: 09-11-2024 End: 09-11-2024 ambulatory HUSAM MUÑOZ Not Available Start: 09-11-2024 End: 09-11-2024 Office outpatient visit 25 minutes Husam Muñoz MD Work Phone: [facility] Comment on above: Hypopituitarism (CMS /HCC) [...] Start: 08-09-2024 End: 08-16-2024 Orders Only Mani Martinezk [employer] Work Phone: [facility] Comment on above: Chronic allergic rhi nitis Rosacea, unspecified Start: 08-07-2024 End: 08-07-2024 Refill Lianet Talamantes MA [facility] Comment on above: Chronic allergic rhi nitis Start: 07-16-2024 End: 07-16-2024 Refill Mani Waltonpatrick [employer] Work Phone: [facility] Comment on above: Chronic allergic rhi nitis Start: 07-11-2024 End: 07-11-2024 ambulatory [facility] Start: 07-09-2024 End: 07-09-2024 Bamboo flowsheet Mani Waltonpatrick [employer] Work Phone: [facility] Start: 07-09-2024 End: 07-09-2024 Bamboo flowsheet Mani Santoyo [employer] Work Phone: [facility] Start: 07-09-2024 End: 07-09-2024 Office outpatient visit 10 minutes Mani Santoyo [employer] Work Phone: [facility] Comment on above: Class 1 obesity due to excess calories without serious comorbidity with body mass index (BMI) of 31.0 to 31.9 in adult (Primary Dx) Start: 07-09-2024 End: 07-09-2024 ambulatory MANI FUNESTRICK Not Available Start: 06-06-2024 End: 06-06-2024 Office outpatient visit 15 minutes Mani Santoyo [employer] Work Phone: [facility] Comment on above: Chronic obstructive pulmonary disease, unspecified COPD type (CMS/HCC) (Primary Dx); Paralyzed hemidiaphragm; Class 1 obesity due to excess calories without serious comorbidity with body mass index (BMI) of 31.0 to 31.9 in adult Start: 06-06-2024 End: 06-06-2024 ambulatory MANI MARTINEZK Not Available Start: 05-31-2024 End: 05-31-2024 Subsequent hospital visit by physician [facility] Work Phone: [facility] Comment on above: Cervical vertebral f usion [M43.22] Start: 05-31-2024 End: 05-31-2024 Patient encounter procedure Juan Salazar MD Work Phone: [facility] Comment on above: Cervical vertebral f usion (Primary Dx); Spinal stenosis of cervical region Start: 05-21-2024 End: 05-21-2024 Orders Only Mani Santoyo [employer] Work Phone: [facility] Comment on above: Class 1 obesity due to excess calories without serious comorbidity with body mass index (BMI) of 31.0 to 31.9 in adult (Primary Dx) Start: 05-15-2024 End: 05-15-2024 Refill Mani Santoyo [employer] Work Phone: [facility] Start: 05-14-2024 End: 05-14-2024 ambulatory [facility] Start: 05-03-2024 End: 05-03-2024 Bamboo flowsheet Mani Martinezk [employer] Work Phone: [facility] Start: 05-03-2024 End: 05-03-2024 Bamboo flowsheet Mani Funestrick [employer] Work Phone: [facility] Start: 05-03-2024 End: 05-03-2024 Office outpatient visit 25 minutes Mani Santoyo [employer] Work Phone: [facility] Comment on [...] 04-24-2024 Chart abstracting None (Historical) Neurology Start: 08-20-2023 Patient encounter procedure Mani Santoyo [employer] Work Phone: [facility] Healthcare Start: 02-17-2023 ambulatory COREAS H FAWWAD Facilit y:H1 Start: 12-09-2022 End: 12-10-2022 ambulatory COREAS H FAWWAD Facility:H1 Start: 12-08-2022 End: 12-09-2022 ambulatory COREAS H FAWWAD Facility:H1 Start: 11-25-2022 End: 11-26-2022 ambulatory COREAS H FAWWAD Facility:H1 Start: 09-03-2022 End: 09-04-2022 ambulatory COREAS H FAWWAD Facility:H1 Start: 06-01-2022 End: 06-02-2022 ambulatory COREAS H FAWWAD Facility:H1 Start: 05-31-2022 End: 06-01-2022 ambulatory SHAIKH Mina ALCANTARAWAD Facility:H1 Start: 05-18-2022 End: 05-19-2022 ambulatory SHAIKH Mina ALCANTARAWAD Facility:H1 Start: 04-29-2022 End: 04-30-2022 ambulatory COREAS Mina ALCANTARAWAD Facility:H1 Start: 01-27-2022 End: 01-28-2022 ambulatory COREAS Mina ALCANTARANED Facility:H1 Start: 04-02-2021 Postop follow up vis it related to original px No PCP None [address] Work Phone: Start: 02-20-2021 Chart Update No PCP None [facility] Work Phone: Start: 02-11-2021 End: 02-12-2021 Evaluation and management of inpatient Chuck Cook [facility] Rm [id number] Start: 01-27-2021 Chart Update Chuck Cook MD Work Phone: [address] Work Phone: Start: 04-03-2019 Patient encounter procedure Chandan Travon EY-Ypfdxew-[address] Work Phone: Start: 01-12-2018 Patient encounter procedure Chandan [place] [address] Work Phone: Start: 11-28-2017 Patient encounter procedure Chandan Travon TK[address] Work Phone: Start: 11-28-2017 Patient encounter procedure Chandan Travon PH-Qzy[address] Work Phone: Procedures Date Procedure Procedure Detail Performing Clinician Start: 04-02-2025 Radex hip unilateral with pelvis 2-3 views Denver Peguero MD Work Phone: Start: 03-01-2025 ALL HEMOGLOBIN Generic External Data Provider Start: 01-11-2025 ALL LIPID PROFILE (FASTING) Generic External Data Provider Start: 01-11-2025 [facility] ALT Generic Ex ternal Data Provider Start: 01-11-2025 [facility] AST Generic Ex ternal Data Provider Start: 09-07-2024 ALL HEMOGLOBIN Generic External Data Provider Start: 08-24-2024 ALL HEMOGLOBIN Generic External Data Provider Start: 05-31-2024 Radex spine cervical 4 or 5 views Juan Salazar MD Work Phone: Start: 11-01-2023 Colonoscopy Mani Heather sujey [employer] Work Phone: Start: 03-30-2019 Xray Chest 2 View PA + Lateral Chandan Cool Cholecystectomy Chandan Cool History of Gallbladd er Surgery Chandan Cool History of Knee Surgery Left Chandan Cool History of Neck Surgery Marion Cool Tonsillectomy Chandan Cool Plan of Treatment Date Care Activity Detail Author Start: 2034 RSV Vaccine (1 - 1-dose 75+ series) RSV Vaccine (1 - 1-dose 75+ series) [facility] Start: 11-01-2033 Screening for malignant neoplasm of colon [facility] Healthcare Start: 03-05-2030 Prostate specific antigen measurement Prostate Cancer Screening Discussion [facility] Start: 01-25-2026 Medicare Annual Wellness (AWV) Medicare Annual Wellness (AWV) [facility] Healthcare Start: 06-28-2025 End: 06-28-2025 Patient encounter procedure 06/28/2025 10:45 AM EDT Office Visit [facility] [address] [place] [address] Nikunj Carmona MD [address] [place] [phone] [facility] Start: 05-28-2025 End: 05-28-2025 Patient encounter procedure 05/28/2025 4:20 PM EDT Office Visit Neurosurgery [address] [place] [address] [place] [address] [place], [place] [id number] Spinal Stenosis Neurosurgery Comment on above: Spinal Stenosis Start: 09-01-2025 Influenza vaccination [facility] Start: 04-12-2025 End: 04-12-2025 Patient encounter procedure [facility] Start: 04-04-2025 End: 04-04-2025 Patient encounter procedure 04/04/2025 7:30 AM EDT Office Visit Orthopaedics [address] [place] [address] Troy Evans, [address] [place] [address] [address]IP INJECTION PER DR. PEGUERO Orthopaedics Comment on above: LEFT HIP INJECTION PER DR. PEGUERO Start: 03-26-2025 End: 03-26-2025 Patient encounter procedure 03/26/2025 10:15 AM EDT Office Visit [facility] [address] [place] [phone] Nikunj Carmona MD [address] [place] [phone] Arrived [facility] Comment on above: Arrived Start: 03-19-2025 End: 03-19-2025 Patient encounter procedure [facility] Start: 01-25-2025 End: 01-25-2025 Patient encounter procedure 01/25/2025 10:30 AM EDT Office Visit [facility] [address] [place] [address] Nikunj Carmona MD [address] [place] [phone] [facility] Start: 10-30-2024 End: 10-30-2024 Patient encounter procedure 10/30/2024 8:30 AM EST Office Visit [facility] [address] [place] [address] Mani Santoyo, GREGORY [address] [place] [phone] [facility] Start: 09-11-2024 End: 09-11-2025 Hemoglobin [Mass/volume] in Blood Hemoglobin Lab Routine Hypopituitarism ([facility]) Expected: 09/11/2024 (Approximate), Expires: 09/11/2025 [facility] Comment on above: Expected: 09/11/2024 (Approximate), Expi res: 09/11/2025 Start: 09-11-2024 End: 09-11-2025 Prostate specific Ag [Mass/volume] in Serum or Plasma PSA Lab Routine Hypopituitarism ([facility]) Expected: 09/11/2024 (Approximate), Expires: 09/11/2025 [facility] Work Phone: Comment on above: Expected: 09/11/2024 (Approximate), Expi res: 09/11/2025 Start: 09-11-2024 End: 09-11-2025 Testosterone [Mass/volume] in Serum or Plasma Testosterone Lab Routine Hypopituitarism ([facility]) Expected: 09/11/2024 (Approximate), Expires: 09/11/2025 [facility] Comment on above: Expected: 09/11/2024 (Approximate), Expi res: 09/11/2025 Start: 09-11-2024 End: 09-11-2024 Patient encounter procedure 09/11/2024 10:20 AM EST Office Visit [facility] [address] [place] [phone] Husam Muñoz MD [address] [place] [address] [facility] Start: 09-05-2024 Advance Directive Discussion Advance Directive Discussion [facility] Start: 09-05-2024 Medicare Advantage Annual Wellness Visit Medicare Advantage Annual Wellness Visit [facility] Start: 08-18-2024 Medicare Annual Wellness (AWV) Medicare Annual Wellness (AWV) [facility] Start: 08-16-2024 End: 08-16-2024 Patient encounter procedure 08/16/2024 8:30 AM EST Office Visit [facility] [address] [place] [address] Mani Santoyo, [employer] [address] [place] [address] [facility] Start: 08-06-2024 End: 08-06-2024 Patient encounter procedure 08/06/2024 10:00 AM EST Office Visit [facility] [address] [place] [address] Mani Santoyo, [employer] [address] [place] [address] [facility] Start: 07-26-2024 End: 07-26-2024 Patient encounter procedure 07/26/2024 10:30 AM EST Office Visit [facility] [address] [place] [address] Mani Santoyo, [employer] [address] [place] [address] [facility] Start: 07-09-2024 End: 07-09-2024 Patient encounter procedure [facility] Comment on above: [facility] Start: 05-06-2024 Covid-19 Vaccine ( season) Covid-19 Vaccine ( season) [facility] Start: 05-06-2024 Influenza vaccination Influenza Vaccine (#[facility]) [facility] Start: 05-03-2024 End: 05-03-2025 CBC W Auto Differential panel - Blood CBC and differential Lab Routine Primary hypertension (CMS/HCC) Class 1 obesity due to excess calories without serious comorbidity with body mass index (BMI) of 31.0 to 31.9 in adult Expected: 05/03/2024 (Approximate), Expires: 05/03/2025 [facility] Healthcare Comment on above: Expected: 05/03/2024 (Approximate), Expi res: 05/03/2025 Start: 05-03-2024 End: 05-03-2025 Comprehensive metabolic 2000 panel - Serum or Plasma Comprehensive metabolic panel Lab Routine Primary hypertension (CMS/HCC) Class 1 obesity due to excess calories without serious comorbidity with body mass index (BMI) of 31.0 to 31.9 in adult Expected: 05/03/2024 (Approximate), Expires: 05/03/2025 [facility] Comment on above: Expected: 05/03/2024 (Approximate), Expi res: 05/03/2025 Start: 05-03-2024 End: 05-03-2025 Microalbumin/Creatinine panel in random Urine Microalbumin / creatinine urine ratio Lab Routine Primary hypertension (CMS/HCC) Expected: 05/03/2024 (Approximate), Expires: 05/03/2025 [facility] Work Phone: Comment on above: Expected: 05/03/2024 (Approximate), Expi res: 05/03/2025 Start: 05-03-2024 End: 05-03-2024 Patient encounter procedure 05/03/2024 11:00 AM EDT Office Visit [facility] [address] [place] [address] Mani Santoyo NP [address] [place] [address] Chronic obstructive pulmonary disease, unspecified COPD type (CMS/HCC) (Primary Dx); Primary hypertension (CMS/HCC); Class 1 obesity due to excess calories without serious comorbidity with body mass index (BMI) of 31.0 to 31.9 in adult; Hyperlipidemia, unspecified hyperlipidemia type (CMS/HCC) [facility] Comment on above: Chronic obstructive pulmonary disease, u nspecified COPD type (CMS/HCC) (Primary Dx); Primary hypertension (CMS/HCC); Class 1 obesity due to excess calories without serious comorbidity with body mass index (BMI) of 31.0 to 31.9 in adult; Hyperlipidemia, unspecified hyperlipidemia type (CMS/HCC) Start: 2024 Advance Directive Discussion Advance Directive Discussion [facility] Start: 2024 Pneumococcal Vaccine: 65+ (1 of 1 - PCV) Pneumococcal Vaccine: 65+ (1 of 1 - PCV) [facility] Start: 02-13-2024 Diabetes Screening Diabetes Screening [facility] Start: 02-11-2021 End: 02-12-2022 Ondansetron Injectable 4 mg IntraVenous Push Every 6 Hours PRN ; (ZOFRAN)DOSE = 4 mg IntraVenous Push Every 4 Hours, PRN Nausea & Vomiting Start: 11-Feb-2021 End: 11-Feb-2022 Ordered: 11-Feb-2021 Saw Saleem [facility] Start: 2014 Prostate specific antigen measurement Prostate Cancer Screening Discussion [facility] Start: 2009 Pneumococcal Vaccine: 50+ (1 of 1 - PCV) Pneumococcal Vaccine: 50+ (1 of 1 - PCV) [facility] Start: 2009 Shingrix Vaccine (1 of 2) Shingrix Vaccine (1 of 2) [facility] Start: 2004 Screening for malignant neoplasm of colon [facility] Start: 1994 Lipid panel Lipid Screening [facility] Start: 1978 Pneumococcal Vaccine: 65+ Years (1 of 2 - PCV) Pneumococcal Vaccine: 65+ Years (1 of 2 - PCV) [facility] Start: 1978 Urine microalbumin profile DTaP,Tdap,Td Vaccine (1 - Tdap) [facility] Start: 1977 Anxiety Screening Anxiety Screening [facility] Start: 1977 Depression Screening Depression Screening [facility] Start: 1977 Hepatitis C screening Hepatitis C Screening [facility] Start: 1977 HIV screening HIV Screening [facility] Start: 1965 Pneumococcal Vaccine: 65+ Years (1 of 2 - PCV) Pneumococcal Vaccine: 65+ Years (1 of 2 - PCV) [facility] Start: 1959 Screening for malignant neoplasm of colon [facility] End: 06-30-2025 MR Cervical spine WO contrast MRI CERVICAL SPINE WO IVCON Radiology Routine Spinal stenosis of cervical region 1 Occurrences starting 05/31/2024 until 06/30/2025 [facility] Comment on above: 1 Occurrences starting 05/31/2024 until 06/30/2025 End: 06-30-2025 XR CERV OTHER 4V AP/LAT/FLX/EXT XR CERV OTHER 4V AP/LAT/FLX/EXT Radiology Routine Cervical vertebral fusion 1 Occurrences starting 05/31/2024 until 06/30/2025 [facility] Work Phone: Comment on above: 1 Occurrences starting 05/31/2024 until 06/30/2025 XR CERV OTHER 4V AP/LAT/FLX/EXT XR CERV OTHER 4V AP/LAT/FLX/EXT Radiology Routine Cervical vertebral fusion 05/31/2024 2:54 PM EDT [facility] End: 05-24-2025 XR Lumbar spine Views W flexion and W extension XR LUMBAR MOTION 4V AP/LAT/ FLEX/EXT Radiology Routine Spinal stenosis of lumbar region with neurogenic claudication 1 Occurrences starting 04/24/2024 until 05/24/2025 [facility] Work Phone: Comment on above: 1 Occurrences starting 04/24/2024 until 05/24/2025 End: 04-27-2026 XR Pelvis and Hip - left AP and Lateral frog XR HIP GENERAL 3V PELV/AP/LAT LEFT Radiology Routine Primary osteoarthritis of left hip 1 Occurrences starting 03/28/2025 until 04/27/2026 [facility] Work Phone: Comment on above: 1 Occurrences starting 03/28/2025 until 04/27/2026 Payers Date Payer Category Payer Medicare [id number] 2022 Medicare (Managed Care) [facility] [id number] 2022 Private Health Insurance [facility] H[facility] [id number] 2020 Unknown [id number] 2018 Unknown 1959 Medicare [id number] 1959 Unknown [id number] 2.16.840.1.453768.3.579.2. 59 1959 Unknown [id number] 2.16.840.1.248094.3.579.2. 593 1959 Unknown [id number] 2.16.840.1.804421.3.579.2. 593 1959 Unknown [id number] 2.16.840.1.152623.3.579.2. 593 1959 Unknown [id number] 2.16.840.1.275635.3.579.2. 593 1959 Unknown [id number] 2.16.840.1.831662.3.579.2. 593 1959 Unknown [id number] 2.16.840.1.870238.3.579.2. 593 1959 Unknown [id number] 2.16.840.1.472719.3.579.2. 593 1959 Unknown [id number] 2.16.840.1.272044.3.579.2. 593 1959 Unknown [id number] 2.16.840.1.960158.3.579.2. 593 1959 Unknown [id number] 2.16.840.1.074949.3.579.2. 196 1959 Unknown [id number] 2.16.840.1.379383.3.579.2. 196 1959 Unknown [id number] 2.16.840.1.090729.3.579.2. 9 1959 Unknown [id number] 2.16.840.1.524031.3.579.2. 1258 1959 Unknown [id number] 2.16.840.1.503596.3.579.2. 1258 1959 Unknown [id number] 2.16.840.1.466880.3.579.2. 1258 1959 Unknown [id number] 2.16.840.1.386755.3.579.2. 1258 1959 Unknown [id number] 2.16.840.1.722964.3.579.2. 1259 Social History Date Type Detail Facility Start: 05-31-2024 End: 06-05-2024 Former smoker Former smoker [facility] Tobacco smoking consumption unknown [facility] Start: 1960 Sex assigned at Not on file [facility] Start: 05-31-2024 End: 06-05-2024 Gender identity Not on file [facility] National Score (1-100), lower number is lower risk 74 [facility] Start: 12-29-2023 End: 05-03-2024 Tobacco smoking status [facility] Ex-smoker [facility] History of tobacco use Current smoker [facility] History of tobacco use Cigarette Smoker [facility] History of tobacco use Passive smoker [facility] Start: 12-29-2023 End: 05-03-2024 Tobacco use and exposure Smokeless tobacco non-user [facility] Start: 05-03-2024 End: 03-26-2025 Alcoholic beverage intake Lifetime non-drinker (finding) [facility] [...] [facility] NEGATED: Highlighted row - - [address] Work Phone: Functional Status Date Assessment Result Facility Functional observable [facility] NEGATED: Highlighted row Functional performance Functional status health issues are not documented Disease [address] Work Phone: Mental Status Date Assessment Result Facility 02-12-2021 Cognitive functi ons 12-Nfl-202621:24 [facility] NEGATED: Highlighted row Cognitive function [Interpretation] Cognitive status health issues are not documented Disease [address] Work Phone: Clinical Notes 02-11-2021 to 04-02-2025 Denver Peguero MD - 04/02/2025 12:00 PM Sierra Cook RT(R) - 04/02/2025 11:30 AM Nicole Carmona MD - 03/26/2025 11:14 AM Nicole Carmona MD - 03/26/2025 11:14 AM EDT<item> Note Date & Type Note Facility 04-02-2025 History of Present illness Narrative This note has been dictated. Yefri Peguero M.D. documented in this encounter [facility] 04-02-2025 History of Present illness Narrative Radiology Service Progress Note PATIENT NAME: Rigo Jefferson DATE OF SERVICE: April 02, 2025 TIME: 11:20 AM PATIENT IDENTITY VERIFICATION COMPLETED USING TWO (2) IDENTIFIERS: Name and Date of confirmed by patient verbally. FALL SCREENING: Has the patient had 2 falls in the last year or 1 fall with injury or currently using an Ambulatory Assistive Device (Walker, Cane, Wheelchair, Crutches, etc.)? No PATIENT GENDER DATA: Assigned male at PATIENT RELEVANT IMPLANT DATA REVIEWED: Not Applicable PATIENT PRESENTS WITH AN IMPLANTABLE OR ATTACHED DISPATCHER RADIOACTIVE WASTE DISPOSAL: No RADIOLOGY DEPARTMENT: General X-ray: Exam(s) Completed: Pelvis X-Ray: Pelvis with Hip Left PERIPHERAL IV DATA: Not applicable SIGNED BY: RT Real(R) April 02, 2025 11:20 AM documented in this encounter [facility] 03-26-2025 History of Present illness Narrative Associated Problem(s): Primary osteoarthritis of left hip Continued pain and CT suggestive avascular necrosis. Refer to ortho. Associated Problem(s): Hypertensive disorder BP slightly elevated but normal at home and monitor PRN. Associated Problem(s): Degenerative lumbar spinal stenosis Continued pain and follow with surgeon. Associated Problem(s): Class 1 obesity due to excess calories with serious comorbidity and body mass index (BMI) of 33.0 to 33.9 in adult Patient doing well with adipex and lost 5 pounds since starting. Tolerating well with only mild dry mouth. Continue with dietary changes and less calories. Need to limit snacking and smaller portions. Continue healthier choices. Need regular aerobic exercise 30 minutes at a time 5-6 days a week. Refill for aonther month. OARRS reviewed. Continue meds as prescribed. If develop new or worsening symptoms contact office. Associated Problem(s): Chronic obstructive lung disease (HCC) Follow up with pulmonology. Associated Problem(s): Abnormal CT scan CT suggestive avascular necrosis and refer to ortho. Images from the original note were not included. Subjective Patient ID: Rigo Jefferson is a 65 y.o. male who presents for Follow-up (1m f/up/Fall 2 weeks ago). Follow up HTN, COPD, and weight. Patient fell last week after tripping on garden hose and landed on left side. Severe pain since. History of lumbar spinal stenosis and following with surgeon. Planning on surgical intervention. To ER and CT left hip showed degenerative changes suggestive of avascular necrosis. Continued pain in hip and deep into groin. Pain with walking and standing. Increased pain in low back. Never seen by ortho for hip. Checking BP PRN and typically controlled. BP slightly elevated today. Taking medication daily and tolerating without side effects. COPD stable. Mild SOB with exertion. No cough or sputum. Using inhalers and helps. Weight down 5 pounds with adipex. Tolerating medication without side effects except mild dry mouth. Not as hungry with medication. Smaller portions and not snacking. Increased fruits and vegetables. Tries to limit total daily calories. Not able to increase activity due to pain. Review of Systems Constitutional: Negative for fatigue. [...] There is no guarding or rebound. Musculoskeletal: Left lower leg: No edema. Neurological: Mental Status: He is alert. Assessment/Plan Problem List Items Addressed This Visit Chronic obstructive lung disease (HCC) Follow up with pulmonology. Hypertensive disorder - Primary BP slightly elevated but normal at home and monitor PRN. Class 1 obesity due to excess calories with serious comorbidity and body mass index (BMI) of 33.0 to 33.9 in adult Patient doing well with adipex and lost 5 pounds since starting. Tolerating well with only mild dry mouth. Continue with dietary changes and less calories. Need to limit snacking and smaller portions. Continue healthier choices. Need regular aerobic exercise 30 minutes at a time 5-6 days a week. Refill for aonther month. OARRS reviewed. Continue meds as prescribed. If develop new or worsening symptoms contact office. Relevant Medications phentermine 37.5 MG capsule Degenerative lumbar spinal stenosis Continued pain and follow with surgeon. Primary osteoarthritis of left hip Continued pain and CT suggestive avascular necrosis. Refer to ortho. Relevant Orders Ambulatory referral to Orthopaedic Surgery Abnormal CT scan CT suggestive avascular necrosis and refer to ortho. Relevant Orders Ambulatory referral to Orthopaedic Surgery documented in this encounter [facility] 01-11-2025 Note [place] [facility] Note Reason for cardiology visit: Follow-up on dyspnea on exertion, mild coronary artery disease, hypertension and hyperlipidemia Chief Complaint: Dyspnea on exertion HPI: 01/11/2025 Patient is here today for follow-up visit. He states that he has been doing well. He saw pulmonary and he was referred to pulmonary rehab. He did not require oxygen yet. He continues to have exertional dyspnea but he denies any chest discomfort at rest or with exertion. Denies orthopnea or paroxysmal nocturnal dyspnea or dizziness or palpitations or legs edema or leg discomfort on exertion. He reports that his blood pressure at home is usually 125-130/70-80 07/11/2024 Patient is here today for follow-up [...] is better after he lost significant weight. ROS: All systems were reviewed and they were negative except for the positive findings noted above in the history Past Medical History He has a past medical history of COPD (chronic obstructive pulmonary disease) (CMS/HCC), Hyperlipidemia, Hypertension, Pulmonary emphysema (CMS/HCC), and Sleep apnea. Surgical History He has a past surgical history that includes Cardiac catheterization; Tonsillectomy; Cholecystectomy; Knee surgery; and Neck surgery. Social History He reports that he quit smoking about 15 years ago. His smoking use included cigarettes. [...] Disp: 90 tablet, Rfl: 3 atorvastatin (Lipitor) 40 mg tablet, Take 1 tablet (40 mg) by mouth in the morning., Disp: 90 tablet, Rfl: 3 cetirizine (ZyrTEC) 10 mg tablet, Take 10 mg by mouth in the morning., Disp: , Rfl: clarithromycin (Biaxin) 250 mg tablet, , Disp: , Rfl: montelukast (Singulair) 10 mg tablet, Take 10 mg by mouth in the morning., Disp: , Rfl: oxyCODONE-acetaminophen (Percocet) 5-325 mg tablet, Take 1 tablet every 6 hours by oral route for 30 days., Disp: , Rfl: testosterone cypionate (Depo-Testosterone) 200 mg/mL injection, Inject 100 mg into the shoulder, thigh, or buttocks every 28 (twenty-eight) days., Disp: , Rfl: Last Recorded Vitals Visit Vitals BP 142/84 (BP Location: Left arm, Patient Position: Standing) Pulse 79 Ht 1.829 m (6') Wt 111 kg (244 lb) SpO2 96% BMI 33.09 kg/m??? Smoking Status Former BSA 2.37 m??? Physical Examination: GENERAL: alert and oriented x3, well developed, in no acute distress. HEAD: atraumatic, normocephalic. EYES: TONI, EOMI. NECK: trachea midline, no JVD present, no carotid bruits present. CARDIAC: S1, S2 present. RRR. No murmur, rubs, or gallops. RESPIRATORY: CTAB, no increased effort of breathing, (more content not included)... [facility] 09-11-2024 History of Present illness Narrative Rigo Jefferson is a 64 y.o. male Husam Muñoz MD presents with chief complaint of Testicular Hypofunction HPI: Interim history: 09/2024. Followup visit: 09/11/2024. he is testosterone cypionate 100 mg 1/2 ml h6urres, testosterone 183 (264-916), hemoglobin 17.8, PSA 1.02. Interim history: 03/2024. Followup visit: . he is testosterone cypionate 100 mg 1/2 ml l6laoua, testosterone 537 (264-916), hemoglobin not done, PSA [...] PSA. HPI: 08/2023 New patient sent from [facility] for hypogonadism, low testosterone. I [...] KNEE SURGERY Left Arthroscopy LUNG SURGERY Left 2015 Left lung not functional NECK SURGERY REVIEW [...] months (around 03/11/2025). documented in this encounter [facility] 09-11-2024 Telephone encounter Note Please refax order to [facility] with order diagnosis for PSA updated. They state they spoke to you yesterday about this and you said you were going to send it, but I don't see it in his chart anywhere to send again. Thanks! [facility] 09-11-2024 Miscellaneous Notes Please refax order to [facility] with order diagnosis for PSA updated. They state they spoke to you yesterday about this and you said you were going to send it, but I don't see it in his chart anywhere to send again. Thanks! documented in this encounter [facility] 08-15-2024 Telephone encounter Note IZZY:07/09/2024 NOV:10/30/2024 [facility] 08-15-2024 Miscellaneous Notes IZZY:07/09/2024 NOV:10/30/2024 Patient stopped in and stated he is suppose to take 2 pills a day. 1 in morning and 1 at night. He only got a 30 supply and is about out. He would like another script. An documented in this encounter [facility] 08-09-2024 Telephone encounter Note Patient stopped in and stated he is suppose to take 2 pills a day. 1 in morning and 1 at night. He only got a 30 supply and is about out. He would like another script. An [facility] 08-07-2024 Telephone encounter Note IZZY:07/09/2024 NOV:08/16/2024 [facility] 08-07-2024 Miscellaneous Notes IZZY:07/09/2024 NOV:08/16/2024 documented in this encounter [facility] 07-11-2024 Note [facility] [...] history of COPD (chronic obstructive pulmonary disease) ([facility]), Hyperlipidemia, Hypertension, Pulmonary emphysema (CMS/HCC), and Sleep [...] x3, well devel (more content not included)... [facility] 07-09-2024 History of Present illness Narrative [...] 37.5 MG tablet documented in this encounter [facility] 06-06-2024 History of Present illness Narrative [...] 31.9 in adult Pt meets qualifications of [facility] 4731-07-09 for weight loss. BMI>30 or >27 [...] if no contraindications documented in this encounter [facility] 06-06-2024 Instructions Mani Santoyo NP - [...] call my office! documented in this encounter [facility] 05-31-2024 History of Present illness Narrative [...] PATIENT PRESENTS WITH AN IMPLANTABLE OR ATTACHED DISPATCHER RADIOACTIVE WASTE DISPOSAL: No RADIOLOGY DEPARTMENT: General X-ray: Exam(s) Completed: Spine X-Ray(s): Cervical AP / LAT / FLEX-EXT and Lumbar AP / LAT / L5-S1 / FLEX-EXT PERIPHERAL IV DATA: Not applicable SIGNED BY: RT Lory(R) May 31, 2024 2:55 PM documented in this encounter [facility] 05-31-2024 History of Present illness Narrative SPINE SURGERY NEW PATIENT This is an in-person visit. PCP: No primary care provider on file. REFERRING PROVIDER: SUBJECTIVE CHIEF COMPLAINT: Hand commercial announcer weakness Decreased sensation over left hemibody Lower [...] all muscle groups. Except mild bilateral hand commercial announcer weakness. SENSORY: Creased sensation for light touch [...] patient was counseled regarding neck pain, hand commercial announcer weakness, decreased sensation over left hemibody, lower back pain, left leg pain, walking difficulty, left leg numbness, lumbar spondylosis, lumbar canal stenosis, lumbar laminectomy with foraminotomy, adjacent segment cervical stenosis, MRI cervical spine. Total face to face time was 45 minutes. SIGNATURE: Juan Salazar MD PATIENT NAME: Rigo Jefferson DATE: May 31, 2024 TIME: 1:44 PM PAGER: documented in this encounter [facility] 05-21-2024 History of Present illness [...] Starting weight 213 documented in this encounter [facility] 05-14-2024 Note [facility] [place] [facility] Note Reason for cardiology [...] history of COPD (chronic obstructive pulmonary disease) ([facility]), Hyperlipidemia, Hypertension, Pulmonary emphysema (CMS/HCC), and Sleep [...] hemoglobin 16, hematocrit (more content not included)... [facility] 05-03-2024 History of Present illness Narrative Associated Problem(s): Chronic seasonal allergic rhinitis Cetirizine D and Flonase daily. Feels symptoms are well managed. Continue current regimen. Associated Problem(s): Primary hypogonadism in male Follows Endocrinology for testosterone replacement therapy. Associated Problem(s): Chronic pain syndrome R/T severe lumbar stenosis Pain management referred to [facility] for further management. [...] ALBUMIN GLOBULIN RATIO 1.0 Resulting Agency [facility] COPD: Does not follow pulmonolgy; Has not had any PFT's recently. No medication at this time. States inhalers were too expensive. Feels his symptoms are well managed. Except in excess humidity and warmer weather. Chronic Lumbar Stenosis: Pain management referred to [facility] Still following with [...] at next OV. documented in this encounter [facility] 05-03-2024 Instructions Mani Santoyo NP - 05/03/2024 11:00 AM EDT Have lab work completed. Keep all follow up appointments. Call if you need anything! documented in this encounter [facility] 04-24-2024 Note HNO ID: [id number] Author: MICHELLE FLORENTINO APRN.FRAME OPENER Service: ? Author Type: Nurse Practitioner Type: Progress Notes Filed: 04/24/2024 16:54 Note Text: Per Triage: Rigo Jefferson is a 64 year old male. that presents with symptoms of low back pain that radiates down the left leg. Previous spine surgery: Yes in [address] Sales. BMI: NA Out of state: No A1C: NA CMT: Injections Rougher Helper Mobic Oxycodone Studies (Reports unless indicated) MRI Lumbar 04/03/2024 -Severe central canal stenosis at L3-L4 and L4-L5 Disposition: Please schedule with first available lumbar spine surgeon with pre-visit x-ray. [facility] 04-24-2024 History of Present illness Narrative Per Triage: Rigo Jefferson is a 64 year old male. that presents with symptoms of low back pain that radiates down the left leg. Previous spine surgery: Yes in [address] Sales. BMI: NA Out of state: No A1C: NA CMT: Injections Rougher Helper Mobic Oxycodone Studies (Reports unless indicated) MRI Lumbar 04/03/2024 -Severe central canal stenosis at L3-L4 and L4-L5 Disposition: Please schedule with first available lumbar spine surgeon with pre-visit x-ray. Patient name: Rigo Jefferson Are you being referred by a Center for Spine Health Provider or Pain Management Provider at [facility]? No If answer is YES [...] completed: [facility] Address: [address] [place] [address] MRI/CT/myelogram viewable in Epic: No If not, please provide [phone] to fax in imaging reports for review. [...] Injections [facility] Address: [address] [place] [address] Have you tried any other kinds of [...] of where the surgery was completed: 2001 [facility] or Cannot recall Additional Comments documented in this encounter [facility] 04-19-2024 Note HNO ID: [id number] Author: ?, ?, ? Service: ? Author Type: ? Type: Progress Notes Filed: 04/24/2024 16:54 Note Text: Patient name: Rigo Jefferson Are you being referred by a Center [facility] Provider or Pain Management Provider at [facility]? No If answer is YES [...] completed: [facility] Address: [address] [place] [address] MRI/CT/myelogram viewable in Epic: No If not, please provide [phone] to fax in imaging reports for review. [...] Injections [facility] Address: [address] [place] [address] Have you tried any other kinds of [...] of where the surgery was completed: 2001 [facility] or Cannot recall Additional Comments [facility] 12-09-2022 Note CONSULTATION PROCEDURE DATE: 12/09/2022 [...] our patients to inform us about any xrvy-elw-viowule medications or herbal remedies/nutritional supplements/alternative remedies. 2. [...] provider. [facility] 11-25-2022 Note CONSULTATION CONSULTATION DATE: 11/25/2022 TO: [...] contrast. [facility] 09-03-2022 Note CONSULTATION CONSULTATION DATE: 09/03/2022 HISTORY [...] indicated. [facility] 06-01-2022 Note CONSULTATION CONSULTATION DATE: 06/01/2022 CHIEF [...] M.D. [facility] 05-18-2022 Note CONSULTATION CONSULTATION DATE: 05/18/2022 HISTORY [...] M.D. [facility] 05-18-2022 Note CONSULTATION PROCEDURE DATE: 05/18/2022 PREOPERATIVE [...] office. [facility] 04-29-2022 Note CONSULTATION CONSULTATION DATE: 04/29/2022 HISTORY [...] Duncan. [facility] 01-27-2022 Note CONSULTATION CONSULTATION DATE: 01/27/2022 HISTORY [...] Approved by: RAVINDER ANDERSEN . 02/04/2022 16:12:00 [facility] 02-12-2021 Note Send Summary: Discharge Summary Providers: Provider RoleProvider Name ReferringOnders Chuck PrimaryRequired, No Pcp AttendingAda Chuck Note Recipients: Chuck Cook MD Discharge: Summary: [...] at Discharge: .Home Vital Signs: T PRBPSpO2 [id number]/8395% Date/Time02/12 12: 12: 12: 12: 12:10 Range(35.4C - 36.4C ) (77 - 99 ) (17 - 18 ) (127 - 147 )/ (83 - 91 ) (92% - 96% ) As of 12-Feb-2021 12:10:00, patient is on 2 L/min of oxygen Date: Weight/Scale Type:Height: 12-Feb-2021 01:29187.8 kg / ibizcjnv581.8 cm Hospital Course: 60 yo male with [...] Call to Schedule in: 2 weeks Location: [address] [place] [address] Discharge Medications: Home Medication clarithromycin 250 mg [...] Last Updated: 13-Feb-2021 10:13 by Chuck Cook) [facility] 02-11-2021 Note Post Operative Note: PreOp Diagnosis: diaphragm paralysis Post-Procedure Diagnosis: same Procedure: 1. laparoscopic L diaphragm plication 2. removal of bilateral diaphragm pacing wires 3. L pigtail chest tube placement Surgeon: Dr Chuck Cook Resident/Fellow/Other Business Analyst Sales Operations: Dr Saw Saleem Anesthesia: GETA Estimated Blood [...] Last Updated: 12-Feb-2021 07:53 by Chuck Cook) [facility] 02-11-2021 Note History & Physical [...] Last Updated: 11-Feb-2021 15:50 by Chuck Cook) [facility] Chief complaint Narrative - Reported An interactive audio and video telecommunication system which permits real time communications between the patient (at the originating site) and provider (at the distant site) was utilized to provide this telehealth service.Post op [address] Work Phone: Evaluation note Constitutional: Well developed, awake/alert/oriented x3, no distress, alert and cooperativeSkin: warm and dryEyes: PERRL, EOMI, clear scleraENMT: MMMHead/Neck: NCATRespiratory/Thorax: good chest expansion, thorax symmetricCardiovascular: RRRGastrointestinal: Nondistended, soft, non-tender, no rebound tenderness or guardingMusculoskeletal: moves all extremitiesExtremities: well perfusedNeurological: grossly intactPsychological: Appropriate mood and behavior [facility] Evaluation note Diagnosis Spinal stenosis of lumbar region with neurogenic claudication- Primary Spinal stenosis, lumbar region, with neurogenic claudication [facility] Cervical vertebral fusion- Primary Other unspecified back disorder Spinal stenosis of cervical region Spinal stenosis in cervical region [facility] Cervical vertebral fusion Other unspecified back disorder [facility] Chronic obstructive pulmonary disease, unspecified COPD type (CMS/HCC)- Primary Paralyzed hemidiaphragm Class 1 obesity due to excess calories without serious comorbidity with body mass index (BMI) of 31.0 to 31.9 in adult documented in this encounter [facility] HealthcareEvaluation note* Diagnosis Primary hypertension (CMS/HCC)- Primary [...] in adult- Primary documented in this encounter [facility] HealthcareEvaluation note* Diagnosis Primary hypertension (CMS/HCC)- Primary [...] Chronic allergic rhinitis documented in this encounter [facility] HealthcareEvaluation note* Diagnosis Primary hypertension (CMS/HCC)- Primary [...] Chronic allergic rhinitis documented in this encounter [facility] HealthcareEvaluation note* Diagnosis Primary hypertension (CMS/HCC)- Primary [...] Chronic allergic rhinitis documented in this encounter [facility] HealthcareEvaluation note* Diagnosis Class 1 obesity due to excess calories without serious comorbidity with body mass index (BMI) of 31.0 to 31.9 in adult- Primary documented in this encounter [facility] HealthcareEvaluation note* Diagnosis Primary hypertension (CMS/HCC)- Primary [...] Primary Rosacea, unspecified documented in this encounter [facility] HealthcareEvaluation note* Diagnosis Chronic obstructive pulmonary disease, unspecified COPD type (CMS/HCC)- Primary Primary hypertension (CMS/HCC) Unspecified essential hypertension Class 1 obesity due to excess calories without serious comorbidity with body mass index (BMI) of 31.0 to 31.9 in adult Hyperlipidemia, unspecified hyperlipidemia type (CMS/HCC) Chronic seasonal allergic rhinitis Primary hypogonadism in male documented in this encounter [facility] HealthcareEvaluation note* Diagnosis Primary hypertension (CMS/HCC)- Primary [...] 31.9 in adult documented in this encounter [facility] HealthcareEvaluation note* Diagnosis Primary hypertension- Primary Unspecified essential hypertension Chronic obstructive pulmonary disease, unspecified COPD type (HCC) Hyperlipidemia, unspecified hyperlipidemia type Chronic seasonal allergic rhinitis Encounter for Medicare annual wellness exam Encounter for screening for malignant neoplasm of colon Weight gain Other symptoms concerning nutrition, metabolism, and development Primary hypogonadism in male Primary hypertension- Primary Unspecified essential hypertension Primary hypogonadism in male Hyperlipidemia, unspecified hyperlipidemia type Class 1 obesity due to excess calories without serious comorbidity with body mass index (BMI) of 31.0 to 31.9 in adult- Primary Primary hypertension Unspecified essential hypertension Chronic allergic rhinitis Primary hypertension Unspecified essential hypertension Class 1 obesity due to excess calories without serious comorbidity with body mass index (BMI) of 31.0 to 31.9 in adult Chronic obstructive pulmonary disease, unspecified COPD type (HCC)- Primary Primary hypertension Unspecified essential hypertension Class 1 obesity due to excess calories without serious comorbidity with body mass index (BMI) of 31.0 to 31.9 in adult Hyperlipidemia, unspecified hyperlipidemia type Chronic seasonal allergic rhinitis Primary hypogonadism in male Class 1 obesity due to excess calories without serious comorbidity with body mass index (BMI) of 31.0 to 31.9 in adult- Primary Chronic obstructive pulmonary disease, unspecified COPD type (HCC)- Primary Paralyzed hemidiaphragm Class 1 obesity due to excess calories without serious comorbidity with body mass index (BMI) of 31.0 to 31.9 in adult Class 1 obesity due to excess calories without serious comorbidity with body mass index (BMI) of 31.0 to 31.9 in adult- Primary Encounter for Medicare annual wellness exam- Primary Primary hypertension Unspecified essential hypertension Class 1 obesity due to excess calories with serious comorbidity and body mass index (BMI) of 33.0 to 33.9 in adult Chronic obstructive pulmonary disease, unspecified COPD type (HCC) Class 1 obesity due to excess calories with serious comorbidity and body mass index (BMI) of 33.0 to 33.9 in adult documented in this encounter [facility] HealthcareEvaluation note* Diagnosis Primary hypertension- Primary Unspecified essential hypertension Chronic obstructive pulmonary disease, unspecified COPD type (HCC) Hyperlipidemia, unspecified hyperlipidemia type Chronic seasonal allergic rhinitis Encounter for Medicare annual wellness exam Encounter for screening for malignant neoplasm of colon Weight gain Other symptoms concerning nutrition, metabolism, and development Primary hypogonadism in male Primary hypertension- Primary Unspecified essential hypertension Primary hypogonadism in male Hyperlipidemia, unspecified hyperlipidemia type Class 1 obesity due to excess calories without serious comorbidity with body mass index (BMI) of 31.0 to 31.9 in adult- Primary Primary hypertension Unspecified essential hypertension Chronic allergic rhinitis Primary hypertension Unspecified essential hypertension Class 1 obesity due to excess calories without serious comorbidity with body mass index (BMI) of 31.0 to 31.9 in adult Chronic obstructive pulmonary disease, unspecified COPD type (HCC)- Primary Primary hypertension Unspecified essential hypertension Class 1 obesity due to excess calories without serious comorbidity with body mass index (BMI) of 31.0 to 31.9 in adult Hyperlipidemia, unspecified hyperlipidemia type Chronic seasonal allergic rhinitis Primary hypogonadism in male Class 1 obesity due to excess calories without serious comorbidity with body mass index (BMI) of 31.0 to 31.9 in adult- Primary Chronic obstructive pulmonary disease, unspecified COPD type (HCC)- Primary Paralyzed hemidiaphragm Class 1 obesity due to excess calories without serious comorbidity with body mass index (BMI) of 31.0 to 31.9 in adult Class 1 obesity due to excess calories without serious comorbidity with body mass index (BMI) of 31.0 to 31.9 in adult- Primary Encounter for Medicare annual wellness exam- Primary Primary hypertension Unspecified essential hypertension Class 1 obesity due to excess calories with serious comorbidity and body mass index (BMI) of 33.0 to 33.9 in adult Chronic obstructive pulmonary disease, unspecified COPD type (HCC) Primary hypertension- Primary Unspecified essential hypertension Chronic obstructive pulmonary disease, unspecified COPD type (HCC) Primary osteoarthritis of left hip Abnormal CT scan Other nonspecific (abnormal) findings on radiological and other examinations of body structure Degenerative lumbar spinal stenosis Spinal stenosis of lumbar region Class 1 obesity due to excess calories with serious comorbidity and body mass index (BMI) of 33.0 to 33.9 in adult documented in this encounter [facility] HealthcareEvaluation note* Diagnosis Primary hypertension- Primary Unspecified essential hypertension Chronic obstructive pulmonary disease, unspecified COPD type (HCC) Hyperlipidemia, unspecified hyperlipidemia type Chronic seasonal allergic rhinitis Encounter for Medicare annual wellness exam Encounter for screening for malignant neoplasm of colon Weight gain Other symptoms concerning nutrition, metabolism, and development Primary hypogonadism in male Primary hypertension- Primary Unspecified essential hypertension Primary hypogonadism in male Hyperlipidemia, unspecified hyperlipidemia type Class 1 obesity due to excess calories without serious comorbidity with body mass index (BMI) of 31.0 to 31.9 in adult- Primary Primary hypertension Unspecified essential hypertension Chronic allergic rhinitis Primary hypertension Unspecified essential hypertension Class 1 obesity due to excess calories without serious comorbidity with body mass index (BMI) of 31.0 to 31.9 in adult Chronic obstructive pulmonary disease, unspecified COPD type (HCC)- Primary Primary hypertension Unspecified essential hypertension Class 1 obesity due to excess calories without serious comorbidity with body mass index (BMI) of 31.0 to 31.9 in adult Hyperlipidemia, unspecified hyperlipidemia type Chronic seasonal allergic rhinitis Primary hypogonadism in male Class 1 obesity due to excess calories without serious comorbidity with body mass index (BMI) of 31.0 to 31.9 in adult- Primary Chronic obstructive pulmonary disease, unspecified COPD type (HCC)- Primary Paralyzed hemidiaphragm Class 1 obesity due to excess calories without serious comorbidity with body mass index (BMI) of 31.0 to 31.9 in adult Class 1 obesity due to excess calories without serious comorbidity with body mass index (BMI) of 31.0 to 31.9 in adult- Primary Encounter for Medicare annual wellness exam- Primary Primary hypertension Unspecified essential hypertension Class 1 obesity due to excess calories with serious comorbidity and body mass index (BMI) of 33.0 to 33.9 in adult Chronic obstructive pulmonary disease, unspecified COPD type (HCC) Primary hypertension- Primary Unspecified essential hypertension Chronic obstructive pulmonary disease, unspecified COPD type (HCC) Primary osteoarthritis of left hip Abnormal CT scan Other nonspecific (abnormal) findings on radiological and other examinations of body structure Degenerative lumbar spinal stenosis Spinal stenosis of lumbar region Class 1 obesity due to excess calories with serious comorbidity and body mass index (BMI) of 33.0 to 33.9 in adult Class 1 obesity due to excess calories with serious comorbidity and body mass index (BMI) of 33.0 to 33.9 in adult documented in this encounter 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 [id number] Work Phone: Hospital Discharge instructions* [...] follow-up / diaphragm pacer removal, hemidiaphragm plicationLocation: [address] [address] Number: [phone] * Gold Form - Other Clinicians:Other Clinician Instructions: Please take your medications as directed. Please follow-up with Dr. Cook and with your PCP as directed. You may remove dressings and shower Tuesday. No heavy lifting >20lbs or strenours activity for 3 weeks. If your symptoms return orworsen, please seek medical attention. Thank you for allowing us to participate in your care. [facility] ([facility])* Diagnostic Procedure Only (Routine) - New Request Specialty Diagnoses / Procedures Referred By Contac t Referred To Contact XR IMAGING Diagnoses Spinal stenosis of lumbar region with neurogenic claudication Procedures XR LUMBAR MOTION 4V AP/LAT/ FLEX/EXT RADEX SPINE LUMBOSACRAL MINIMUM 4 VIEWS Michelle Florentino, TAB.FRAME OPENER [address] [place] [id number] Xr Imaging [place] [address] Referral ID Status Reason Start Date Expiration Date Visits Requested Visits Authorized [id number] New Request Auto-Generat ed Referral 04/24/2024 05/24/2025 1 1 [facility] for referral (narrative)* Diagnostic Procedure Only (Routine) - Closed Specialty Diagnoses / Procedures Referred By Contac t Referred To Contact XR IMAGING Diagnoses Cervical vertebral fusion Procedures XR CERV OTHER 4V AP/LAT/FLX/EXT RADEX SPINE CERVICAL 4 [place] [address] [place] [address] Xr Imaging [place] [address] Referral ID Status Reason Start Date Expiration Date V isits Requested Visits Authorized [id number] Closed Auto-Generate d Referral 05/31/2024 06/30/2025 1 1 [facility] for referral (narrative)* Consultation (Urgent) - Authorized Specialty Diagnoses / Procedures Referred By Contac t Referred To Contact Pulmonary Disease Diagnoses Chronic obstructive pulmonary disease, unspecified COPD type (CMS/HCC) Paralyzed hemidiaphragm Procedures [place] OFFICE/OUTPATIENT NEW HIGH MDM 60 MINUTES Mani Santoyo NP [address] [place] [address] Aly Mosley MD [address] [place] [address] Referral ID Status Reason Start Date Expiration Date Visits Requested Visits Authorized [id number] Authorized Specialty Services Required 06/06/2024 12/03/2024 1 [...] CERVICAL W/[place] [address] [place] [id number] Mr Imaging [place] [address] Referral ID Status Reason Start Date Expiration Date Visits Requested Visits Authorized [id number] New Request Auto-Generat ed Referral 05/31/2024 06/30/2025 1 1 Specialty Diagnoses / Procedures Referred By Contac t Referred To Contact XR IMAGING Diagnoses Cervical vertebral fusion Procedures XR CERV OTHER 4V AP/LAT/FLX/EXT RADEX SPINE CERVICAL 4 [place] 5 [place] [address] [place] [id number] Xr Imaging [place] [address] Referral ID Status Reason Start Date Expiration Date V isits Requested Visits Authorized [id number] Closed Auto-Generate d Referral 05/31/2024 06/30/2025 1 [...] section and content) DATE CREATED AUTHOR 04/04/2021 [email or web address] DATE CREATED AUTHOR AUTHOR'S ORGANIZ ATION 04/08/2021 [facility] DATE CREATED AUTHOR AUTHOR'S ORGANIZ ATION 12/31/2022 [facility] DATE CREATED AUTHOR AUTHOR'S ORGANIZ ATION 04/26/2024 [facility] DATE CREATED AUTHOR AUTHOR'S ORGANIZ ATION 01/13/2025 [facility] DATE CREATED AUTHOR AUTHOR'S ORGANIZ ATION 01/30/2025 [facility] DATE CREATED AUTHOR AUTHOR'S ORGANIZ ATION 03/27/2025 [facility] Specialists EPIC Source Comments (unrecognize d section and content) In the event this informatio n is protected by the Federal Confidentiality of Alcohol and Drug Abuse Patient Records regulations: The Federal rules restrict any use of the information to criminally investigate or prosecute any alcohol or drug abuse patient.[facility] HospitalIn the event this information is protected by the Federal Confidentiality of Alcohol and Drug Abuse Patient Records regulations: The Federal rules restrict any use of the information to criminally investigate or prosecute any alcohol or drug abuse patient.[facility] HospitalIn the event this information is protected by the Federal Confidentiality of Alcohol and Drug Abuse Patient Records regulations: The Federal rules restrict any use of the information to criminally investigate or prosecute any alcohol or drug abuse patient.[facility] HospitalIn the event this information is protected by the Federal Confidentiality of Alcohol and Drug Abuse Patient Records regulations: The Federal rules restrict any use of the information to criminally investigate or prosecute any alcohol or drug abuse patient.[facility] HospitalIn the event this information is protected by the Federal Confidentiality of Alcohol and Drug Abuse Patient Records regulations: The Federal rules restrict any use of the information to criminally investigate or prosecute any alcohol or drug abuse patient.[facility] Teams (unrecognized sec tion and content) Flat Grinder Operator Relationship Specialty Start Date End Date Tonny Hernandez MD [address] [place] [facility] [place] [place] [address] Referring Pain Management 04/16/24 Flat Grinder Operator Relationship Specialty Start Date End Date Tonny Hernandez MD [address] [place] [facility] [place] [facility] [place] [address] Referring Pain Management 04/16/24 Flat Grinder Operator Relationship Specialty Start Date End Date Tonny Hernandez MD [address] [place] [facility] [place] [place] [place] [address] Referring Pain Management 04/16/24 Flat Grinder Operator Relationship Specialty Start Date End Date Rosa Barker MD [address] [place] [address] PCP - Devoted 09/05/22 Nikunj Carmona MD [address] [place] [address] PCP - General Family Medicine 04/09/24 Mani Santoyo NP [address] [place] [address] Nurse Practitioner Family Medicine 04/09/24 Flat Grinder Operator Relationship Specialty Start Date End Date Rosa Barker MD 112 [facility] [address] [place] [address] PCP - Devoted 09/05/22 Nikunj Carmona MD [address] [place] [address] PCP - General Family Medicine 04/09/24 Mani Santoyo NP [address] [place] [address] Nurse Practitioner Family Medicine 04/09/24 Flat Grinder Operator Relationship Specialty Start Date End Date Rosa Barker MD [address] [facility] [address] [place] [address] PCP - Devoted 09/05/22 Nikunj Carmona MD [address] [place] [address] PCP - General Family Medicine 04/09/24 Mani Santoyo NP [address] [place] [address] Nurse Practitioner Family Medicine 04/09/24 Flat Grinder Operator Relationship Specialty Start Date End Date Rosa Barker MD [address] [facility] [address] [place] [address] PCP - Devoted 09/05/22 Nikunj Carmona MD [address] [place] [address] PCP - General Family Medicine 04/09/24 Mani Santoyo NP [address] [place] [address] Nurse Practitioner Family Medicine 04/09/24 Flat Grinder Operator Relationship Specialty Start Date End Date Rosa Barker MD [address] [facility] [address] [place] [address] PCP - Devoted 09/05/22 Nikunj Carmona MD [address] [place] [address] PCP - General Family Medicine 04/09/24 Mani Santoyo NP [address] [place] [address] Nurse Practitioner Family Medicine 04/09/24 Flat Grinder Operator Relationship Specialty Start Date End Date Rosa Barker MD 112 [facility] [address] [place] [address] PCP - Devoted 09/05/22 Nikunj Carmona MD [address] [place] [address] PCP - General Family Medicine 04/09/24 Mani Santoyo NP [address] [place] [address] Nurse Practitioner Family Medicine 04/09/24 Flat Grinder Operator Relationship Specialty Start Date End Date Rosa Barker MD 112 [facility] [address] [place] [address] PCP - Devoted 09/05/22 Nikunj Carmona MD [address] [place] [address] PCP - General Family Medicine 04/09/24 Mani Santoyo NP [address] [place] [address] Nurse Practitioner Family Medicine 04/09/24 Flat Grinder Operator Relationship Specialty Start Date End Date Rosa Barker MD [address] [place] [address] [place] [address] PCP - Devoted 09/05/22 Nikunj Carmona MD [address] [place] [address] PCP - General Family Medicine 04/09/24 Mani Santoyo NP [address] [place] [address] Nurse Practitioner Family Medicine 04/09/24 Flat Grinder Operator Relationship Specialty Start Date End Date Rosa Barker MD [address] [facility] [address] [place] [address] PCP - Devoted 09/05/22 Nikunj Carmona MD [address] [place] [address] PCP - General Family Medicine 04/09/24 Mani Santoyo, GREGORY [address] [place] [address] Nurse Practitioner Family Medicine 04/09/24 Flat Grinder Operator Relationship Specialty Start Date End Date Rosa Barker MD [address] [facility] [address] [place] [address] PCP - Devoted 09/05/22 Nikunj Carmona MD [address] [place] [address] PCP - General Family Medicine 04/09/24 Mani Santoyo NP [address] [place] [address] Nurse Practitioner Family Medicine 04/09/24 Flat Grinder Operator Relationship Specialty Start Date End Date Rosa Barker MD [address] [facility] [address] [place] [address] PCP - Devoted 09/05/22 Nikunj Carmona MD [address] [place] [address] PCP - General Family Medicine 04/09/24 Flat Grinder Operator Relationship Specialty Start Date End Date Rosa Barker MD [address] [facility] [address] [place] [address] PCP - Devoted 09/05/22 Nikunj Carmona MD [address] [place] [address] PCP - General Family Medicine 04/09/24 Flat Grinder Operator Relationship Specialty Start Date End Date Rosa Barker MD [address] [facility] [place] [address] PCP - Devoted 09/05/22 Nikunj Carmona MD [address] [place] [address] PCP - General Family Medicine 04/09/24 Flat Grinder Operator Relationship Specialty Start Date End Date Rosa Barker MD [address] [place] [address] PCP - Devoted 09/05/22 Nikunj Carmona MD [address] [place] [address] PCP - General Family Medicine 04/09/24 Flat Grinder Operator Relationship Specialty Start Date End Date Rosa aBrker MD [address] [place] [address] PCP - Devoted 09/05/22 Nikunj Carmona MD [address] [place] [address] PCP - General Family Medicine 04/09/24 Flat Grinder Operator Relationship Specialty Start Date End Date Tonny Hernandez MD [address] [place] [address] Referring Pain Management 04/16/24 Nikunj Carmona MD [address] [place] [address] Family Medicine 03/26/25 Flat Grinder Operator Relationship Specialty Start Date End Date Tonny Hernandez MD [address] [place] [address] Referring Pain Management 04/16/24 Nikunj Carmona MD [address] [place] [address] Family Medicine 03/26/25 Reason for Visit (unrecogniz ed section and content) Reason Comments New Patient Reason Comments Radio Gen RMP Specialty Diagnoses / Procedures Referred By Contac t Referred To Contact XR IMAGING Diagnoses Cervical vertebral fusion Procedures XR CERV OTHER 4V AP/LAT/FLX/EXT RADEX SPINE CERVICAL 4 [place] [address] [place] [address] [place] [address] Referral ID Status Reason Start Date Expiration Date V isits Requested Visits Authorized [id number] Closed Auto-Generate d Referral 05/31/2024 06/30/2025 1 1 Reason Comments Weight Check Reason Onset Date Comments Med Refill 07/16/2024 Reason Onset Date Comments Med Refill 08/07/2024 Reason Onset Date Comments Med Refill 08/09/2024 Reason Comments Follow-up Reason Comments Testicular Hypofunction Reason Onset Date Comments Results 09/11/2024 Reason Onset Date Comments Med Refill 02/26/2025 Reason Comments Follow-up 1m f/upFall 2 weeks ago Reason Onset Date Comments Med Refill 04/02/2025 Reason Comments New Reason Comments Radiology XR Specialty Diagnoses / Procedures Referred By Contac t Referred To Contact XR IMAGING Diagnoses Pain Procedures XR HIP GENERAL 3V PELV/AP/LAT LEFT RADEX HIP UNILATERAL WITH PELVIS 2-3 VIEWS Denver Peguero MD [address] [place] [address] Phone: tel: fax: [place] [address] Referral ID Status Reason Start Date Expiration Date V isits Requested Visits Authorized [id number] Closed Auto-Generate d Referral 03/26/2025 04/25/2026 1 1 FOR RECORDS PERTAINING TO PATIENTS [...] BE BASED ON THE PRIMARY CLINICAL RECORDS. [employer] provides no warranty or guarantee of the accuracy or completeness of information in this document.
--- NOTE | 2025-04-03 10:19 | PM.CN ---
Consult Note: HPI Data of Consult Patient: known to practice within the last 3 years Requesting Physician: Sho Galdamez NP Primary Care Provider: Nikunj Yanez MD Consult Narrative Reason for consult: low back, left hip, left leg pain Narrative: Ryan Pete a pleasant 65 year old male presents for evaluation of chronic low back and left leg pain. Since last visit pt was evaluated by the ER and orthopedics at [facility] for left hip pain, pending left hip injection tomorrow. Pt reports his low back and left LLE pain is 4/10 increasing to 10/10 with standing, walking, position changes. utilizing baclofen without improvement, does find benefit to percocet 5-325mg QID PRN without side effects. ER did prescribe methocarbamol 750mg with moderate relief compared to baclofen, pt would like to discuss switching. cc:: CC: Sho Galdamez NP Review of Systems ROS Musculoskeletal Reports: back pain, extremity pain and joint pain [facility] Medical History (Updated 03/20/25 @ 15:29 by Ramiro Ruffin MD) Bilateral hip pain ?M25.551 - Pain in right hip (ICD-10) ?M25.552 - Pain in left hip (ICD-10) COPD (chronic obstructive pulmonary disease) ?J44.9 - Chronic obstructive pulmonary disease, unspecified (ICD-10) Rheumatoid arthritis ?M06.9 - Rheumatoid arthritis, unspecified (ICD-10) Upper back pain ?M54.9 - Dorsalgia, unspecified (ICD-10) Low back pain ?M54.50 - Low back pain, unspecified (ICD-10) Uses continuous positive airway pressure (CPAP) ventilation at home ?Z99.89 - Dependence on other enabling machines and devices (ICD-10) Emphysema lung ?J43.9 - Emphysema, unspecified (ICD-10) Hypertension ?I10 - Essential (primary) hypertension (ICD-10) Surgical History Hx of cholecystectomy ?Z90.49 - Acquired absence of other specified parts of digestive tract (ICD-10) H/O cardiac catheterization ?Z98.890 - Other specified postprocedural states (ICD-10) H/O heart bypass surgery ?Z95.1 - Presence of aortocoronary bypass graft (ICD-10) History of lung surgery ?Z98.890 - Other specified postprocedural states (ICD-10) History of tonsillectomy ?Z90.89 - Acquired absence of other organs (ICD-10) H/O cervical spine surgery ?Z98.890 - Other specified postprocedural states (ICD-10) H/O carpal tunnel repair ?Z98.890 - Other specified postprocedural states (ICD-10) H/O arthroscopy of knee ?Z98.890 - Other specified postprocedural states (ICD-10) Family History Other Bilateral hip pain Meds Home Medications and Allergies Home Medications ?Medication ?Instructions ?Recorded ?Confirmed ?Type atorvastatin 40 mg tablet (Lipitor) 40 mg PO DAILY 02/17/23 03/20/25 History testosterone enanthate 50 mg/0.5 50 mg subcut QWEEK 12/13/23 01/14/25 History mL subcutaneous auto-injector (Xyosted) montelukast 10 mg tablet 10 mg PO DAILY 03/28/24 03/20/25 History (Singulair) naloxone 4 mg/actuation nasal 4 mg intranasal Q2M PRN opioid 07/18/24 03/20/25 Rx spray (Narcan) overdose #1 ea oxycodone-acetaminophen 5 mg-325 1 tab PO QID PRN pain #120 tabs 10/18/24 03/20/25 Rx mg tablet (Percocet) atenolol 25 mg tablet 25 mg 12/24/24 History oxycodone-acetaminophen 5 mg-325 1 tab PO QID PRN pain #120 tabs 01/15/25 03/20/25 Rx mg tablet (Percocet) oxycodone-acetaminophen 5 mg-325 1 tab PO QID PRN pain #120 tabs 02/14/25 03/20/25 Rx mg tablet (Percocet) oxycodone-acetaminophen 5 mg-325 1 tab PO QID PRN pain #120 tabs 03/14/25 03/20/25 Rx mg tablet (Percocet) clarithromycin 250 mg tablet mg 03/20/25 History methocarbamol 750 mg tablet 750 mg PO Q8H #20 tabs 07/16/25 Rx naloxone 4 mg/actuation nasal 4 mg intranasal Q3M PRN opioid 03/20/25 Rx spray (Narcan) overdose #2 ea phentermine 37.5 mg capsule mg 03/20/25 History Allergies Allergy/AdvReac Type Severity Reaction Status Date / Time No Known Drug Allergies Allergy Verified 03/20/25 14:39 Exam Constitutional Documenting provider has reviewed patient's vital signs: yes Common normals: no apparent distress, oriented x3, healthy appearing, alert and well nourished General appearance: cooperative HENMT Common normals: normocephalic, hearing grossly normal bilaterally and moist oral mucous membranes Head and scalp: normocephalic Eye Common normals: PERRL Pupil: PERRL Neck & C-Spine Common normals: full ROM General: normal visual inspection Chest Common normals: inspection of chest normal Respiratory Common normals: normal respiratory effort, no retractions and no use of accessory muscles Back & Pelvis Lumbar spine/lower back: ROM limited, pain with ROM, lumbar spinal tenderness and straight leg raise positive left Sacroiliac joints: SI joint(s) abnormal Other: left sij positive sho(patricks), gaenslens, thigh thrust, compression test strength 3/5 in LLE and 5/5 in RLE decreased sensation to left L3,4,5 Extremity Left lower extremity: hip joint Other: moderate pain with internal/external rotation, improved from prior Neuro Common normals: oriented x3 Sensorium/orientation: alert Psych Common normals: mental status grossly normal, thought process normal, cooperative, affect normal, speech normal and activity/motor behavior normal Speech: normal speech Thought process: normal thought process Results Additional Findings Additional findings: If on a controlled substance or opioids, I have checked an OAR[place] report on this patient and there are no aberrancies noted in the prescribing history.??If on a controlled substance or opioid a drug screen was completed and reviewed within the last year, and if there has not been a drug screen completed we ordered one today to monitor higher risk, state monitored pain medication use. As part of providing excellent, safe, comprehensive care, the following was completed at our patient's visit: 1. A medication reconciliation and review to ensure accurate knowledge of current/active medications, including asking our patients to inform us about any [id number] medications or herbal remedies/nutritional supplements/alternative remedies. 2. A review to specifically ensure our patients have had annual screening for screening for depression, screening for tobacco use, and screening for unhealthy alcohol use. For concerning screenings had a discussion with the patient, provided patient education, and recommended follow-up with primary care provider when appropriate. If patient noted with a risk of falling, they received education on strength, gait, and balance training to prevent future risk of falling. Portions of this note may have been carried over from the previous visit and updated as appropriate. Please note this office utilizes paper charting in addition to the electronic medical record. A list of current medications, vitals, and PMH is available there as the clinical staff outside of myself do not have access to [employer] charting during the clinic day operations. As part of providing quality comprehensive care the current medications, vitals, and PMH were reviewed in the paper chart. Assessment and Plan Assessment and Plan (1) Lumbar stenosis with neurogenic claudication: Assessment and Plan: 12/24/24 left L3-4 L4-5 TFESI > 50% improvement for 3 months The patient has had over 3 months of moderate to severe low back and LLE pain with functional impairment and inadequate response to conservative care including NSAIDS (unless there are contraindication such as concurrent blood thinners), multiple oral or topical pain medications, and home exercise program/physical therapy.? Patient has completed >6 weeks of guided home exercise program and/or formal physical therapy program without relief of their symptoms.? I have reviewed the imaging of the lumbar spine and no red flags were identified.? The imaging reveals radiographic findings consistent with lumbar ddd, lumbar stenosis with NC, lumbar spondylosis The Oswestry Disability Index was completed, and the patient scored a 46%.? The patient noted the following:?? moderate to severe pain with ADLs, sitting, standing, walking, sleeping, social life, travel We discussed the risks and benefits of the procedure with the patient, and we are NOT planning on using sedation as outlined in the guidelines from Medicare unless there is a documented reason that sedation would be strongly recommended.?? ?The procedure will be completed with fluoroscopic guidance.? (2) Sacroiliitis: (3) Encounter for long-term opiate analgesic use: Plan can repeat left L3-4 L4-5 TFESI when needed stop baclofen restart methocarbamol 750mg TID PRN pain/spasms continue percocet 5-325 mg qid prn moderate to severe pain f/u 2 weeks after repeat injection or 3 months for medication management
== END 2025-04-03 09:52 | disposition home or self-care (01) ==
LOC: PM 09:51
PROVIDERS: PCP Family Medicine; Visit Provider Nurse Practitioner
DX: M48.062 Spinal stenosis, lumbar region with neurogenic claudication (principal); M46.1 Sacroiliitis, not elsewhere classified; Z79.891 Long term (current) use of opiate analgesic
CPT/HCPCS: G0463

== ENCOUNTER 2025-05-21 09:15 | Outpatient (OUT) | payer OTHER, SELFPAY ==
--- OUTSIDE RECORDS SUMMARY | 2024-07-16 05:30 | XMS_ITS ---
Author Organization [facility] es Address [address] [place] [address] Care Team Providers Care Flux Mixer Name Role Phone Obdulia Linda Primary Care Provider Dakota Bonilla Unavailable [phone] Portillo Corona Unavailable [phone] REASON FOR VISIT EXT-45 MIN PER PASSPORT Encounters Encounter Location Date Provider Diagnosis [address] [place] [address] 07/16/2024 Portillo Corona Plan Of Treatment No Information Progress Notes * RIGO JEFFERSONDOB:05/1960 (65 yo M)Acc No.[id number]:07/16/2024 Patient: RIGO TALAMANTES Provider: Sis Farias DDS :1960 A ge:64 Y S ex:Male Date:07/16/2024 Address:[facility] [place], [id number] Pcp:Obdulia Mercado Subjective: * Chief Complaints: * 1 . EXT-45 MIN PER PASSPORT. * Medical History: Objective: * Vitals: Assessment: Plan: * Treatment: * Images: * Electronic signature of Heath Corona on 05/21/2025 at 09:20 AM EDT Sign off status: Pending * Provider: Sis Farias DDS Date: 09/15/2023 Generated for Printi ng/Faxing/eTransmitting on: 0 05/21/2025 09:20 AM EDT
--- OUTSIDE RECORDS SUMMARY | 2024-10-23 06:00 | XMS_ITS ---
Author Organization [facility] Address [address] [place] [address] Care Team Providers Care Mechanic Sound Technician Name Role Phone Obdulia Linda Primary Care Provider Dakota Bonilla Unavailable [phone] REASON FOR VISIT EXT-45 MIN Encounters Encounter Location Date Provider Diagnosis [address] [place] [address] 10/23/2024 Dakota Bonilla Plan Of Treatment No Information Progress Notes * RIGO JEFFERSONDOB:05/1960 (65 yo M)Acc No.[id number]:10/23/2024 Patient: Mando BARROSRIGO TRAN Provider: Diana Bonilla DDS :1960 A ge:64 Y S ex:Male Date:10/23/2024 Address:[address] [place] [address] [place], [id number] Pcp:Obdulia Mercado Subjective: * Chief Complaints: * 1 . EXT-45 MIN. * Medical History: Objective: * Vitals: Assessment: Plan: * Treatment: * Images: * Electronic signature of Abundio Bonilla DDS on 05/21/2025 at 09:20 AM EDT Sign off status: Pending * Provider: Diana Bonilla DDS Date: 10/23/2024 Generated for Ankuri ng/Faxing/eTransmitting on: 05/21/2025 09:20 AM EDT
--- OUTSIDE RECORDS SUMMARY | 2024-10-30 04:30 | XMS_ITS ---
Author Organization [facility] Address [address] [place] [address] Care Team Providers Care Overage Shortage And Damage Clerk Name Role Phone Obdulia Linda Primary Care Provider Dakota Bonilla Unavailable [phone] REASON FOR VISIT EXT-45 MINUTES Encounters Encounter Location Date Provider Diagnosis [address] [place] [address] 10/30/2024 Dakoat Bonilla Plan Of Treatment No Information Progress Notes * RIGO JEFFERSONDOB:05/1960 (65 yo M)Acc No.[id number]:10/30/2024 Patient: Mando BARROSRIGO TRAN Provider: Diana Bonilla DDS :1960 A ge:64 Y S ex:Male Date:10/30/2024 Address:[address] [place] [address] [id number] Pcp:Obdulia Mercado Subjective: * Chief Complaints: * 1 . EXT-45 MINUTES. * Medical History: Objective: * Vitals: Assessment: Plan: * Treatment: * Images: * Electronic signature of Abundio Bonilla DDS on 05/21/2025 at 09:19 AM EDT Sign off status: Pending * Provider: Diana Bonilla DDS Date: 10/30/2024 Generated for Ankuri ng/Faxing/eTransmitting on: 05/21/2025 09:19 AM EDT
--- OUTSIDE RECORDS SUMMARY | 2024-11-06 04:00 | XMS_ITS ---
Author Organization [facility] Address [address] [place] [address] Care Team Providers Care Card Dealer Name Role Phone Obdulia Linda Primary Care Provider Dakota Bonilla Unavailable [phone] REASON FOR VISIT EXT-45 MINUTES Encounters Encounter Location Date Provider Diagnosis [address] [place] [address] 11/06/2024 Dakota Bonilla Plan Of Treatment No Information Progress Notes * RIGO JEFFERSONDOB:05/1960 (65 yo M)Acc No.[id number]:11/06/2024 Patient: Mando BARROSRIGO TRAN Provider: Diana Bonilla DDS :1960 A ge:64 Y S ex:Male Date:11/06/2024 Address:[address] [place] [address] [place], [id number] Pcp:Obdulia Mercado Subjective: * Chief Complaints: * 1 . EXT-45 MINUTES. * Medical History: Objective: * Vitals: Assessment: Plan: * Treatment: * Images: * Electronic signature of Abundio Bonilla DDS on 05/21/2025 at 09:19 AM EDT Sign off status: Pending * Provider: Diana Bonilla DDS Date: 11/06/2024 Generated for Ankuri ng/Falyudmilag/eTransmitting on: 05/21/2025 09:19 AM EDT
--- OUTSIDE RECORDS SUMMARY | 2025-05-21 09:19 | XMS_ITS | Encounter Summary ---
Author Organization [facility] Address [address] [place] [address] Care Team Providers Care Cylinder Batcher Name Role Phone Rosa Barker MD Unavailable Shaikh CURRY Malik Primary Care Provider [phone] Nikunj aYnez MD Primary Care Provider [phone] Sandee Santoyo NP Unavailable Encounter Details Date Type Department Care Team (Late st Contact Info) Description 12/06/2023 Orders Only [facility] [address] [facility] [address] [place] [address] Sho Galdamez NP [address] [place] [address] Social History Tobacco Use Types [...] How often do you attend chur or muslim services? More than 4 times per year 08/18/2023 Do you belong to any clubs o r organizations such as hindu groups, unions, fraternal or athletic groups, or [...] Recorded Patient Health Questionnaire-2 Score 2 08/18/2023 [facility] of Occupat ional [facility] - Occupational Stress Questionnaire Answer Date Recorded [...] Care Team (Late st Contact Info) Description 08/12/2025 10:20 AM EST Office Visit [facility] [address] [place] [address] Husam Muñoz MD [address] [place] [address] documented as of this encounter Procedures Procedure Name Priority Date/Time Associated Diagnosis Comments XR HIP BI Routine 12/03/2023 1:56 PM EDT documented in this encounter Results * XR HIP BI (12/03/2023 1:56 PM EDT) Anatomical Region Laterality Modality Radiographic Jeny ging Sho Galdamez NP IMG XR PROCEDURES Final Result documented in this encounter Visit Diagnoses Not on filedocumented in this encounter Care Teams Cylinder Batcher Relationship Specialty Start Date End Date Rosa Barker MD [address] [place] [address] PCP - Devoted 09/05/22 Shaikh Malik MD [address] [place] [address] PCP - General Internal Medicine 11/23/23 04/08/24 Nikunj Yanez MD [address] [place] [address] PCP - General Family Medicine 04/09/24 Sandee Santoyo NP [address] [place] [address] Nurse Practitioner Family Medicine 04/09/24 11/21/24 documented as of this encounter
--- OUTSIDE RECORDS SUMMARY | 2025-05-21 09:19 | XMS_ITS | Clinical Summary ---
Author Organization [facility] Address [address] [place] [address] Care Team Providers Care Enchilada Maker Name Role Phone Tonny Hernandez MD Unavailable [phone] Nikunj Yanez MD Unavailable [phone] Allergies No known active allergies Medications atenolol (TENORMIN) 25 mg tablet Take [...] (ZONEGRAN) 50 mg capsule 50 mg. Active Encounters Date Type Department Care Team Description 04/04/2025 7:30 AM EDT Office Visit Orthopaedics [address] [place] [address] Troy Evans, Primary osteoarthritis of left hip (Primary Dx) 04/04/2025 Travel 04/02/2025 12:00 PM EDT Office Visit Orthopaedics [address] [place] [address] [place] Leonardo MD Primary osteoarthritis of left hip (Primary Dx) 04/02/2025 11:15 AM EDT - 04/02/2025 11:59 PM EDT Hospital Encounter Radiology [address] [place] [address] Pain [R52] Discharge Disposition: Home 03/26/2025 Orders Only Orthopaedics [address] [place] [address] [place] Leonardo MD Pain (Primary Dx) from Last 3 Months Social History Tobacco Use Types Packs/Day Years Used Date Smoking Tobacco: Never Assessed Area Deprivation Index Answer Date Hayder rded National Score (1-100), lower number is lower ri sk 74 05/31/2024 State Score (1-10), lower number is lower risk 6 05/31/2024 Data from: https://www.neighborhoodatlas.medicine.[facility]/. Last address used for calculation spring05/31/2024 Sex and Gender Information Value Date Recorded Sex Assigned at Not on file Legal Sex Male 9:51 AM EST Gender Identity Not on file Sexual Orientation Not on file Last Filed Vital Signs Vital Sign Reading Time Taken Comments Blood Pressure - - Pulse - - Temperature - - Respiratory Rate - - Oxygen Saturation - - Inhaled Oxygen Concentration - - Weight 104.8 kg (231 lb) 04/02/2025 11:52 AM EDT Height 182.9 cm (6') 04/02/2025 11:52 AM EDT Body Mass Index 31.33 04/02/2025 11:52 AM EDT Plan of Treatment Upcoming Encounters Date Type Department Care Team (Late st Contact Info) Description 05/28/2025 4:20 PM EDT Office Visit Neurosurgery [address] [place] [address] [place] [address] [place] [address] Spinal Stenosis Health Maintenance Due Date Last Done Comments Anxiety Screening 1977 Depression Screening 1977 Hepatitis C Screening 1977 DTaP,Tdap,Td Vaccine (1 - Tdap) [address] Colonography 2004 Cologuard (FIT-DNA) 2004 Colonoscopy 2004 Colorectal Cancer Screening 2004 Fecal Occult Blood 2004 Sigmoidoscopy 2004 Pneumococcal Vaccine: 50+ (1 of 1 - PCV) 2009 Shingrix Vaccine (1 of 2) 2009 Diabetes Screening 02/13/2024 02/12/2021, 01/27/2021 Advance Directive Discussion 09/05/2024 Medicare Advantage Annual Wellness Visit 09/05/2024 Influenza Vaccine (#1) 2025 Prostate Cancer Screening Discussion 03/05/2030 07/0 09/2024 RSV Vaccine (1 - 1-dose 75+ series) 2034 Procedures Procedure Name Priority Date/Time Associated Diagnosis Comments ARTHROCENTESIS ASPIR&/INJ MAJOR JT/BURSA W/US Routine 04/04/2025 7:35 AM EDT Primary osteoarthritis of left hip US HIP-INJECTION LT (POC) BETI USE ONLY Routine 04/04/2025 7:29 AM EDT Primary osteoarthritis of left hip XR HIP GENERAL 3V PELV/AP/LAT LEFT Routine 04/02/2025 11:26 AM EDT Pain from Last 3 Months Results * ARTHROCENTESIS ASPIR&/INJ MAJOR JT/BURSA W/US (04/04/2025 7:35 AM EDT) Narrative Troy Evans, - 04/04/2025 7:35 AM EDT Troy Evans, DO 04/04/2025 7:36 AM Large Joint Arthro/Inj: L hip joint 04/04/2025 7:35 AM The procedure site was prepped in the usual sterile fashion. Site: L hip joint Details:Musculoskeletal ultrasound was utilized to successfully localize placement of the injection needle at the appropriate site. Ultrasound images demonstrating local vasculature and demonstrating injection of solution were saved. Medications: 40 mg triamcinolone acetonide 40 mg/mL Anesthetics: 4 mL lidocaine (PF) 10 mg/mL (1 %) Outcome: Tolerated well, no immediate complications Post-injection instructions were reviewed with the patient and the patient voiced understanding of these instructions. Informed Consent Consent Obtained: Verbal [place] Protocol A moment to CARE was completed. SIGN IN Personnel directly involved with the procedure wore the appropriate PPE. Special Equipment: N/A Patient/Surrogate Stated/Verified: Patient name, Date of , Relevant allergies and Intended procedure TIME OUT Relevant labs, photos, and/or imaging studies have been reviewed. Correct side/site marked and visible. Medications required for procedure verified. No fire risk assessment and interventions applicable. No implant(s) inserted. SIGN OUT No specimen collected. All instruments, equipment, possible retained foreign bodies accounted for. The post-procedure POC has been communicated to the patient or surrogate. No post-procedure POC communication to the patient's multidisciplinary team (including the bedside nurse for hospitalized patients) applicable. us Troy Evans DO PROCEDURE Final Result * US HIP-INJECTION LT (POC) BETI USE ONLY (04/04/2025 7:29 AM EDT) 04/04/2025 7:29 AM EDT us Troy Evans DO IMAGES Final Result [facility] * XR HIP GENERAL 3V PELV/AP/LAT LEFT (04/02/2025 11:26 AM EDT) Anatomical Region Laterality Modality Hip Other 04/02/2025 11:2 6 AM EDT Impressions 04/02/2025 5:02 PM EDT IMPRESSION: No acute osseous abnormality. Mild bilateral hip osteoarthritis, more pronounced in the left than on the right. Helmet Hat Puncher: PSCB Transcribe Date/Time: Apr 02 2025 2:10P Dictated by : CUCA JOLLEY MD This examination was interpreted and the report reviewed and electronically signed by: CUCA JOLLEY MD on Apr 02 2025 5:00PM EST Narrative 04/02/2025 5:02 PM EDT * * *Final Report* * * DATE [...] degenerative changes in the lower lumbar spine. Procedure Note Provider, [facility] [place] - 04/02/2025 * * *Final Report* * [...] in the left than on the right. Helmet Hat Puncher: PSCB Transcribe Date/Time: Apr 02 2025 2:10P Dictated by : CUCA JOLLEY MD This examination was interpreted and the report reviewed and electronically signed by: CUCA JOLLEY MD on Apr 02 2025 5:00PM EST [place] [facility] Final Resul t from Last [address] [place], [place] [id number] Care Teams Enchilada Maker Relationship Specialty Start Date End Date Tonny Hernandez MD [address] [place] [address] Referring Pain Management 04/16/24 Nikunj Yanez MD [address] [place] [address] Family Medicine 03/26/25
--- OUTSIDE RECORDS SUMMARY | 2025-05-21 09:19 | XMS_ITS | Clinical Summary ---
Author Organization [facility] Address [address] [place] [address] Care Team Providers Care Batter Mixer Helper Name Role Phone Unavailable Primary Care Provider [...] COVID-19 VACCINE ( - 2023-2 5 season) 2025 INFLUENZA VACCINE (#1) 2025 RSV VACCINE (1 - 1-dose 75+ series) 2034 HEP B VACCINE Aged Out No longer shrutig van based on patient's age to complete this topic
--- OUTSIDE RECORDS SUMMARY | 2025-05-21 09:19 | XMS_ITS | Encounter Summary ---
Author Organization [facility] Address [address] [place] [address] Care Team Providers Care Materials Inspector Name Role Phone Rosa Barker MD Unavailable Shaikh CURRY Malik Primary Care Provider [phone] Shaikh CURRY Malik Primary Care Provider [phone] Nikunj Yanez MD Primary Care Provider [phone] Sandee Santoyo NP Unavailable [phone] Encounter Details Date Type Department Care Team (Late st Contact Info) Description 11/03/2023 Orders Only [facility] [address] [facility] [address] [place] [address] Miguel Huffman DO [address] [facility] [address] [place] [address] Social History Tobacco Use Types [...] Never 08/18/2023 How often do you attend [facility] or yazidism services? More than 4 times per year 08/18/2023 Do you belong to any clubs o r organizations such as samaritan groups, unions, fraternal or athletic groups, or [...] Recorded Patient Health Questionnaire-2 Score 2 08/18/2023 [employer] of Occupat ional Health - Occupational Stress [...] EST Office Visit [facility] [address] [place] [address] Husam Muñoz MD [address] [place] [address] documented as of this encounter Procedures Procedure Name Priority Date/Time Associated Diagnosis Comments COLONOSCOPY Routine 11/01/2023 11:53 AM EST documented in this encounter Results * Colonoscopy (11/01/2023 11:53 AM EST) Anatomical Region Laterality Modality Endoscopy Migeul Huffman DO ENDOSCOPY PROCEDURE ORDER JACQUI Final Result documented in this encounter Visit Diagnoses Not on filedocumented in this encounter Care Teams Materials Inspector Relationship Specialty Start Date End Date Rosa Barker MD [address] [facility] [address] [place] [address] PCP - Devoted 09/05/22 Shaikh Malik MD [address] [facility] [address] [place] [address] PCP - General Internal Medicine 09/22/23 11/22/23 Shaikh Malik MD [address] [place] [address] PCP - General Internal Medicine 11/23/23 04/08/24 Nikunj Yanez MD [address] [place] [address] PCP - General Family Medicine 04/09/24 Sandee Santoyo NP [address] [place] [address] Nurse Practitioner Family Medicine 04/09/24 11/21/24 documented as of this encounter
--- OUTSIDE RECORDS SUMMARY | 2025-05-21 09:19 | XMS_ITS | Encounter Summary ---
Author Organization [facility] Address [address] [place] [address] Care Team Providers Care Manager Transport Name Role Phone Rosa Barker MD Unavailable Shaikh CURRY Malik Primary Care Provider [phone] Nikunj Yanez MD Primary Care Provider [phone] Sandee Santoyo NP Unavailable [phone] Encounter Details Date Type Department Care Team [...] How often do you attend chur or holiness services? More than 4 times per year 08/18/2023 Do you belong to any clubs o r organizations such as evangelical groups, unions, fraternal or athletic groups, or [...] Patient Health Questionnaire-2 Score 2 08/18/2023 [facility] of Occupat ional [facility] - Occupational Stress Questionnaire Answer Date [...] a group home (including now)? No 08/18/2023 Sex and Gender Information Value Date Recorded Sex Assigned at Not on file Legal Sex Male 7:09 PM EDT Gender Identity Not on file Sexual Orientation Not on file documented as of this encounter Plan of Treatment Upcoming Encounters Date Type Department Care Team (Late st Contact Info) Description 08/12/2025 10:20 AM EST [facility] [address] [place] [address] Husam Muñoz MD [address] [place] [address] documented as of this encounter Procedures Procedure Name Priority Date/Time Associated Diagnosis Comments XR KNEE 4+ VIEWS LEFT 12/05/2023 12:49 PM EDT documented in this encounter Results * XR knee 4+ views left (12/05/2023 12:49 PM EDT) Anatomical Region Laterality Modality Lower Extremities, Knee Left [facility] 12/05/2023 12:4 9 PM EDT Narrative 12/05/2023 12:52 PM EDT The [address] [address] XRay Report Signed Patient: RIGO PETE MR#: [id number] : 1960 Acct:[id number] Age/Sex: 63 / M ADM Date: 12/03/23 Loc: RAD Attending Dr: Pedro Del Real NP Ordering Physician: Pedro Del Real NP Date of Service: 12/03/23 Procedure(s): XR knee LT 4V Accession Number(s): [id number] cc: Shaikh Meka Malik; Pedro Del Real NP The [place] [address] Patient Name: RIGO PETE MRN: [facility]:[id number] date: 1960 Sex: M Assigned Patient Location: RAD Current Patient Location: RAD Accession/Order Number: [id number] Exam Date: 12/03/2023 15:20 Report Date: 12/05/2023 [...] By: Kian Tinajero M.D. Signed By: 12/05/23 1252 DD/ 1249 TD/TT: Waterworks Operator: Procedure Note Radiology, Radiologist, MD - 12/08/2023 [place] [address] XRay Report Signed Patient: RIGO PETE NMR#: [id number] : 9Acct:[id number] Age/Sex: 63 / MADM Date: 12/03/23 Loc: RAD Attending Dr: Pedro Del Real NP Ordering Physician: Pedro Del Real NP Date of Service: 12/03/23 Procedure(s): XR knee LT 4V Accession Number(s): [id number] cc: Shaikh Meka Malik; Pedro Del Real NP [place] [id number] Patient Name: RIGO PETE MRN: [id number] date: 1960 Sex: M Assigned Patient [facility]: [facility] Current Patient Location: RAD Accession/Order Number: [id number] Exam Date: 12/03/2023 15:20 Report Date: 12/05/2023 [...] M.D. Signed By:12/05/23 1252 DD/ 1249 TD/TT: Waterworks Operator: Generic External Data Provider IMG XR PROCEDURES Final Result documented in this encounter Visit Diagnoses Not on filedocumented in this encounter Care Teams Manager Transport Relationship Specialty Start Date End Date Rosa Barker MD [address] [facility] [address] [place], [place] [id number] PCP - Devoted 09/05/22 Shaikh Malik MD [address] [place] [address] PCP - General Internal Medicine 11/23/23 04/08/24 Nikunj Yanez MD [address] [place] [address] PCP - General Family Medicine 04/09/24 Sandee Santoyo NP [address] [place] [address] Nurse Practitioner Family Medicine 04/09/24 11/21/24 documented as of this encounter
--- OUTSIDE RECORDS SUMMARY | 2025-05-21 09:19 | XMS_ITS | Patient Health Record ---
Author Organization [facility] Address [address] [place] [address] Care Team Providers Care Reading Specialist Name Role Phone Obdulia Linda Primary Care Provider Dakota Bonilla Unavailable [phone] Portillo Corona Unavailable [phone] Reason For Referral No Information Encounters Encounter Location Date Provider Diagnosis [facility] [address] [place] [address] 05/30/2024 Dakota Bonilla [address] [facility] [facility] [address] 05/30/2024 Dakota Bonilla Encounter for dental examination [...] MEDICARE ADVANTAGE [address] [place] [address] [id number] RIGO DALEY Self - patient is the insured 3
--- OUTSIDE RECORDS SUMMARY | 2025-05-21 09:19 | XMS_ITS | Encounter Summary ---
Author Organization [facility] Address [address] [place] [address] Phone Care Team Providers Care Carpet Sewing Machine Operator Name Role Phone Unavailable Primary Care Provider Unavailabl e Encounter Details Date Type Department Care Team (Late st Contact Info) Description 09/25/[address] [facility] [address] [place] [address] Conversion, Onbase Social History Tobacco Use Types [...]
--- OUTSIDE RECORDS SUMMARY | 2025-05-21 09:19 | XMS_ITS | Encounter Summary ---
Author Organization [facility] Address [address] [place] [address] Care Team Providers Care Back Maker Name Role Phone Rosa Barker MD Unavailable Shaikh CURRY Malik Primary Care Provider [phone] Nikunj Yanez MD Primary Care Provider [phone] Sandee Santoyo NP Unavailable Encounter Details Date [...] How often do you attend chur or mandaeism services? More than 4 times per year [...] Recorded Patient Health Questionnaire-2 Score 2 08/18/2023 [facility] - Occupational Stress Questionnaire Answer Date [...] place to sleep or slept in a [place] health care facility (including now)? No 08/18/2023 Sex and Gender Information Value Date Recorded Sex Assigned at Not on file Legal Sex Male 7:09 PM EDT Gender Identity Not on file Sexual Orientation Not on file documented as of this encounter Plan of Treatment Upcoming Encounters Date Type Department Care Team (Late st Contact Info) Description 08/12/2025 10:20 AM EST Office [facility] [address] [place] [address] Husam Muñoz MD [address] [place] [address] documented as of this encounter Procedures Procedure Name Priority Date/Time Associated Diagnosis Comments XR HIPS BILATERAL 2 VW WITH OR WITHOUT PELVIS 12/05/2023 10:52 AM EDT documented in this encounter Results * XR hips bilateral 2 views (12/05/2023 10:52 AM EDT) Anatomical Region Laterality Modality Lower Extremities, Hip Bilateral Radiograp hic Imaging 12/05/2023 10:5 2 AM EDT Narrative 12/05/2023 10:55 AM EDT The [address] [address] XRay Report Signed Patient: RIGO PETE MR#: [id number] : 1960 Acct:[id number] Age/Sex: 63 / M ADM Date: 12/03/23 Loc: RAD Attending Dr: Pedro Del Real NP Ordering Physician: Pedro Del Real NP Date of Service: 12/03/23 Procedure(s): XR hip LUANN Accession Number(s): [id number] cc: Shaikh Meka Malik; Pedro Del Real NP The [place] [address] Patient Name: RIGO PETE MRN: [id number] date: 1960 Sex: M Assigned Patient Location: [facility] Current Patient Location: Accession/Order Number: [id number] Exam Date: 12/03/2023 15:20 Report Date: 12/05/2023 [...] Signed By: 12/05/23 1055 DD/ 1052 TD/TT: Corporate Law Assistant: Procedure Note Radiology, Radiologist, MD - 12/08/2023 [place] [address] XRay Report Signed Patient: RIGO PETE NMR#: [id number] : 1960cct:[id number] Age/Sex: 63 / MADM Date: 12/03/23 Loc: RAD Attending Dr: Pedro Del Real NP Ordering Physician: Pedro Del Real NP Date of Service: 12/03/23 Procedure(s): XR hip LUANN Accession Number(s): [id number] cc: Shaikh Meka Malik; Pedro Del Real NP [place] [address] Patient Name: RIGO PETE MRN: [id number] date: 1960 Sex: M Assigned Patient Location: [facility] Current Patient Location: Accession/Order Number: [id number] Exam Date: 12/03/2023 15:20 Report Date: 12/05/2023 [...] M.D. Signed By:12/05/23 1055 DD/ 1052 TD/TT: Corporate Law Assistant: Generic External Data Provider IMG XR PROCEDURES Final Result documented in this encounter Visit Diagnoses Not on filedocumented in this encounter Care Teams Back Maker Relationship Specialty Start Date End Date Rosa Barker MD [address] [facility] [address] [place] [address] PCP - Devoted 09/05/22 Shaikh Malik MD [address] [place] [address] PCP - General Internal Medicine 11/23/23 04/08/24 Nikunj Yanez MD [address] [place] [address] PCP - General Family Medicine 04/09/24 Sandee Santoyo NP [address] [place] [address] Nurse Practitioner Family Medicine 04/09/24 11/21/24 documented as of this encounter
--- OUTSIDE RECORDS SUMMARY | 2025-05-21 09:19 | XMS_ITS | Encounter Summary ---
Author Organization [facility] Address [address] [place] [address] Care Team Providers Care Online Media Director Name Role Phone Rosa Barker MD Unavailable Shaikh CURRY Malik Primary Care Provider [phone] Nikunj Yanez MD Primary Care Provider [phone] Sandee Santoyo NP Unavailable [phone] Encounter Details Date Type Department Care Team (Late st Contact Info) Description 12/05/2023 Orders Only [facility] [address] [place] [address] Sho Galdamez NP [address] [place] [address] Social History Tobacco Use Types [...] 08/18/2023 How often do you attend [facility] or restoration services? More than 4 times per year 08/18/2023 Do you belong to any clubs o r organizations such as restorationist groups, unions, fraternal or athletic groups, or [...] Recorded Patient Health Questionnaire-2 Score 2 08/18/2023 [facility] Answer [...] EST Office Visit [facility] [address] [place] [address] Husam Muñoz MD [address] [place] [address] documented as of this encounter Procedures Procedure Name Priority Date/Time Associated Diagnosis Comments XR KNEE 4+ VIEWS LEFT Routine 12/05/2023 3:04 PM EDT documented in this encounter Results * XR knee 4+ views left (12/05/2023 3:04 PM EDT) Anatomical Region Laterality Modality Lower Extremities, Knee Left Radiogra phic Imaging us Sho Galdamez NP IMG XR PROCEDURES Final Result documented in this encounter Visit Diagnoses Not on filedocumented in this encounter Care Teams Online Media Director Relationship Specialty Start Date End Date Rosa Barker MD [address] [place] [address] PCP - Devoted 09/05/22 Shaikh Malik MD [address] [place] [address] PCP - General Internal Medicine 11/23/23 04/08/24 Nikunj Yanez MD [address] [place] [address] PCP - General Family Medicine 04/09/24 Sandee Santoyo NP [address] [place] [address] Nurse Practitioner Family Medicine 04/09/24 11/21/24 documented as of this encounter
--- OUTSIDE RECORDS SUMMARY | 2025-05-21 09:19 | XMS_ITS | Encounter Summary ---
Author Organization [facility] Address [address] [place] [address] Care Team Providers Care Cisco Consultant Name Role Phone Rosa Barker MD Unavailable Shaikh CURRY Malik Primary Care Provider [phone] Shaikh CURRY Malik Primary Care Provider [phone] Nikunj Yanez MD Primary Care Provider [phone] Sandee Santoyo NP Unavailable [phone] Encounter Details Date Type Department Care Team (Late st Contact Info) Description 10/12/2023 Orders Only [facility] [address] [facility] [address] Shaikh Malik MD [address] [facility] [place] [address] Social History Tobacco Use Types Packs/Day Years [...] any clubs o r organizations such as oriental orthodox groups, unions, fraternal or athletic groups, [...] Recorded Patient Health Questionnaire-2 Score 2 08/18/2023 [facility] - Occupational [...] in a correction (including now)? No 08/18/2023 Sex and Gender [...] [facility] [address] [place] [address] Husam Muñoz MD [address] [place] [address] documented as of this encounter Procedures Procedure Name Priority Date/Time Associated Diagnosis Comments US SCROTUM Routine 06/09/2023 8:08 AM EDT documented in this encounter Results * US scrotum (06/09/2023 8:08 AM EDT) Anatomical Region Laterality Modality Body Ultrasound us Shaikh Helena ZAPIEN IMG US PROCEDURES Final Result documented in this encounter Visit Diagnoses Not on filedocumented in this encounter Care Teams Cisco Consultant Relationship Specialty Start Date End Date Rosa Barker MD [address] [facility] [address] [place] [address] PCP - Devoted 09/05/22 Shaikh Malik MD [address] [facility] [address] [place] [address] PCP - General Internal Medicine 09/22/23 11/22/23 Shaikh Malik MD [address] [place] [address] PCP - General Internal Medicine 11/23/23 04/08/24 Nikunj Yanez MD [address] [place] [address] PCP - General Family Medicine 04/09/24 Sandee Santoyo NP [address] [place] [address] Nurse Practitioner Family Medicine 04/09/24 11/21/24 documented as of this encounter
--- OUTSIDE RECORDS SUMMARY | 2025-05-21 09:19 | XMS_ITS | Patient Health Record ---
Author Organization [facility] Address [address] [place] [address] Care Team Providers Care Broiler Chef Or Cook Name Role Phone Nikunj Yanez MD Primary Care Provider UnavailAly Wade Unavailable [phone] Allergies No Known Allergies Results Component Value Reference Range Notes RT pulmonary function test Reviewed date:08/27/2024 08:03:39 AM Interpretation: Performing Lab: Notes/Report: Source Facility: [place] [address] Respiratory Report Signed Patient: RIGO PETE MR#: [id number] : 1960 Acct:[id number] Age/Sex: 64 / M ADM Date: 08/24/24 Loc: CT Attending Dr: Aly Ashford D.O. Ordering Physician: Aly Ashford D.O. Date of Service: 08/24/24 Procedure(s): RT pulmonary function test Accession Number(s): [id number] cc: The [facility] Test Date: 2024-08-24 Pat Name: RIGO PETE Department: Room: - Gender: Male Business Programmer: Emily Mckenna RRT : 1960 Requested By: Aly Ashford Order Number: [id number] Vladimir MD: Aly Ashford Interpretive Statements Pulmonary function testing was [...] Signed On 08-27-2024 7:49:17 EST by Aly Ashford Dictated By: Aly Ashford D.O. Signed By: 08/27/24 0749 08/27/24 0749 DD/ 0844 TD/TT: Fitting Room Operator: CT Chest High Resolution Reviewed date:08/27/2024 08:00:08 AM Interpretation: Performing Lab: Notes/Report: CT chest high res Reviewed date:08/27/2024 07:11:23 AM Interpretation: Performing Lab: Notes/Report: Source Facility: [place] [address] CT Scan Report Signed Patient: RIGO PETE MR#: [id number] : 1960 Acct:[id number] Age/Sex: 64 / M ADM Date: 08/24/24 Loc: CT Attending Dr: Aly Ashford D.O. Ordering Physician: Aly Ashford D.O. Date of Service: 08/24/24 Procedure(s): CT chest high res Accession Number(s): [id number] cc: Jer[place]o CAGE [address] [address] Patient Name: RIGO PETE MRN: [id number] date: 1960 Sex: M Assigned Patient Location: CT Current Patient Location: Accession/Order Number: [id number] Exam Date: 08/24/2024 08:09 Report Date: 08/25/2024 06:00 At the request of: ALY ASHFORD Procedure: CT chest high res EXAMINATION: [...] M.D. Signed By: 08/25/24602 DD/ 9 TD/TT: Fitting Room Operator: HEMOGLOBIN Reviewed date:08/27/2024 07:03:56 AM Interpretation: Performing Lab: Notes/Report: [facility] , Hemoglobin 17.6 14.0-18.0 g/dL Performing Lab: see note ML - The [facility] Reason For Referral No Information Medications Medication SIG (Take, Route, Frequency, Duration) Notes Start Date End Date Status Atenolol 25 MG TAKE 1 TABLET BY NAYLA TH DAILY Oral; Duration: 90 Days Active Atorvastatin Calcium 40 MG 1 tablet Oral ly Once a day; Duration: 90 days Active Cetirizine-Pseudoephedrine ER 5-120 MG TAKE 1 TABLET BY MOUTH IN THE MORNING and ONE TABLET BY MOUTH BEFORE bedtime Oral; Duration: 30 Days Active Losartan Potassium-HCTZ 50-12.5 MG TAKE 1 TABLET BY MOUTH DAILY Oral; Duration: 90 Days Active Montelukast Sodium 10 MG TAKE 1 TABLET B Y MOUTH DAILY Oral; Duration: 90 Days Active Allergy Relief/Nasal Decongest 5-120 MG TAKE 1 TABLET BY MOUTH DAILY Oral; Duration: 30 Days Active oxyCODONE-Acetaminophen 5-325 MG Oral; Duration: 30 Days Acti ve Brovana 15 MCG/2ML 2mL Inhalation BID; Duration: 30 days Active Testosterone Cypionate 200 MG/ML INJECT ONE-HALF ml INTRAMUSCULARLY EVERY 2 (TWO) weeks Intramuscular; Duration: 84 Days Active Ipratropium Dawson 0.02 % 2.5mL Inhalat ion QID; Duration: 30 days 10/09/2024 Active Fluticasone Propionate 50 MCG/ACT 1 spray in each nostril Nasally Twice a day Active Clarithromycin 250 MG Oral; Duration: 90 Days Active Social History Tobacco Use: [...] Problem Status W/U Status Risk Notes Problem Chronic obstructive pulmonary disease (54921424) Chronic obstructive pulmonary disease, unspecified (J44.9) Active confirmed Problem Centrilobular emphysema (07224951) Centrilobular emphysema (J43.2) Active confirmed Problem Pulmonary fibrosis (22743596) Pulmonary fibrosis, unspecified (J84.10) Active confirmed Problem Coronary artery disease (99107405) CAD (coronary artery disease) (I25.10) Active confirmed Problem Obstructive sleep apnea syndrome (04282132) [place] (obstructive sleep apnea) (G47.33) Active confirmed Problem Disorder of diaphragm (25297519) Hemidiaphragm paralysis (J98.6) Active confirmed Problem Ex-tobacco user (finding) (521632765) History of tobacco abuse (Z87.891) Active confirmed Problem History of COVID-19 (8545568689800367 05) History of COVID-19 (Z86.16) Active confirmed Vital Signs Heart Rate 73 /min 01/08/2025 Temperature 96.8 degrees Fahrenheit 01/08/2025 Respiratory Rate 18 /min 01/08/2025 Blood pressure diastolic 90 mm Hg 01/08/2025 Oximetry 95 % 01/08/2025 Height 72 in 01/08/2025 Blood pressure systolic 141 mm Hg 01/08/2025 Weight 247.0 lbs 01/08/2025 BMI 33.5 kg/m2 01/08/2025 Procedures Procedure Date Ordered Date Performed Result Body Sit e PFT (07106, 47351, 00650) 08/08/2024 08/24/2024 N/A Pulmonary Rehabilitation 01/08/2025 N/A Encounters Encounter Location Date Provider Diagnosis [facility] [address] [place] [address] 10/09/2024 Aly Samsa Hemidiaphragm paraly sis J98.6 ; Centrilobular emphysema J43.2 ; Pulmonary fibrosis, unspecified J84.10 ; Restrictive lung disease J98.4 ; [place] (obstructive sleep apnea) G47.33 ; CAD (coronary artery disease) I25.10 ; History of tobacco abuse Z87.891 and History of COVID-19 Z86.16 [facility] [address] [place] [address] 01/08/2025 Aly Samsa Hemidiaphragm paraly sis J98.6 ; Centrilobular emphysema J43.2 ; Pulmonary fibrosis, unspecified J84.10 ; Restrictive lung disease J98.4 ; [place] (obstructive sleep apnea) G47.33 ; CAD (coronary artery disease) I25.10 and History of tobacco abuse Z87.891 [facility] [address] [place] [address] 08/08/[address] [facility] Hemidiaphragm paraly sis J98.6 ; COPD (chronic obstructive pulmonary disease) J44.9 ; Pulmonary fibrosis, unspecified J84.10 ; Restrictive lung disease J98.4 ; [place] (obstructive sleep apnea) G47.33 ; CAD (coronary artery disease) I25.10 ; History of tobacco abuse Z87.891 and History of COVID-19 Z86.16 [facility] [address] [place] [address] 10/09/2024 [facility] [address] [place] [address] 04/30/[address] [facility] Assessments Encounter Date Diagnosis (ICD Code) Assessment Notes Treatment Notes Treatment Clinical Notes Section Notes 08/08/2024 COPD (chronic obstructive pulmonary disease) (ICD-10 [...] Patient voiced enthusiasm to use a nebulizer. Irjw-gg-[id number] encounter performed with the patient to document [...] he would have to pay for it [id number]. He stated he would not be able to afford that. Will continue to monitor his oxygenatio for any desaturations which could then qualify him for supplemental O2. 08/08/2024 Hemidiaphragm paralysis (ICD-10 - J98.6) History: [...] over 6 years ago. He voiced agreement. 10/09/2024 Centrilobular emphysema (ICD-10 - J43.2) Very [...] He voiced understanding at this possibility. 10/09/2024 Hemidiaphragm paralysis (ICD-10 - J98.6) History: [...] other than pulmonary rehabilitation. He states that [facility] did not want to pay for [...] states that he would consider that option. 01/08/2025 Centrilobular emphysema (ICD-10 - J43.2) Kdxs-dm-ixap performed today regarding continued need for nebulizer, [...] highly questionable given his [employer] insurance. 01/08/2025 Hemidiaphragm paralysis (ICD-10 - J98.6) History: ~2001: 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 States [facility] will not pay for pulmonary rehab phase [...] outlined program. Otherwise, F/U 1 year. 01/08/2025 Pulmonary fibrosis, unspecified (ICD-10 - J84.10) [...] to follow-up (HRCT). The patient voiced agreement. 10/09/2024 Restrictive lung disease (ICD-10 - J98.4) Secondary to paralyzed left hemidiaphragm. 08/08/2024 Restrictive lung disease (ICD-10 - J98.4) Secondary to paralyzed left hemidiaphragm +/- pulmonary fibrosis. Ordering PFT and HRCT for further investigation. 01/08/2025 Restrictive lung disease (ICD-10 - J98.4) Secondary to paralyzed left hemidiaphragm. Pulmonary rehabilitation phase 3 ordered. 10/09/2024 [place] (obstructive sleep apnea) (ICD-10 - G47.33) PSG 01/15/2015: AHI 24 PAP titration 02/24/2015: Did not tolerate CPAP, changed to BiPAP Patient tried and failed CPAP and BiPAP therapy - could not tolerate it. 01/08/2025 [place] (obstructive sleep apnea) (ICD-10 - [...] (ICD-10 - I25.10) Mild RCA disease on [facility] F/U with [facility] Cardiology 10/09/2024 CAD (coronary artery disease) (ICD-10 - I25.10) Mild RCA disease on [facility] He does not qualify for any supplemental O2 at this time. 01/08/2025 CAD (coronary artery disease) (ICD-10 - I25.10) Mild RCA disease on [facility] He does not qualify for any supplemental [...] - Z87.891) 1-2ppd x 30 years, quit 2010. The patient would have only 1 year of eligibility left for LDCT program as it has been 14 years since smoking cessation, and has I am ordering HRCT to investigate the pulmonary fibrosis, he will therefore not meet current LDCT screening criteria. 01/08/2025 History of tobacco abuse (ICD-10 - [...] Test Name Order Date Pulmonary Rehabilitation 01/08/2025 Insurance Providers Payer Name Payer Address Payer Phone Subscriber Number Group Number Insured Name Patient Relationship to Insured Coverage Start Date Coverage End Date [facility] [address] [place] [id number] Rigo Gtz Self - patient [...]
--- OUTSIDE RECORDS SUMMARY | 2025-05-21 09:20 | XMS_ITS | Encounter Summary ---
Author Organization [facility] Address [address] [place] [address] Care Team Providers Care Aircraft Maintenance Manager Name Role Phone Rosa Barker MD Unavailable Nikunj Yanez MD Primary Care Provider [phone] Sandee Santoyo NP Unavailable Encounter Details Date Type Department Care Team (Late st Contact Info) Description 04/12/2024 Abstract [facility]I [facility] [address] [place] [address] Unallocated, Andi ProviderMD [address] [place], [place] [address] Social History Tobacco Use Types Packs/Day Years [...] any clubs o r organizations such as congregation groups, unions, fraternal or athletic groups, or [...] Recorded Patient Health Questionnaire-2 Score 0 01/31/2024 [facility] Answer [...] [facility] [address] [place] [address] Husam Muñoz MD [address] [place] [address] documented as of this encounter Visit Diagnoses Not on filedocumented in this encounter Care Teams Aircraft Maintenance Manager Relationship Specialty Start Date End Date Rosa Barker MD [address] [facility] [address] [place] [address] PCP - Devoted 09/05/22 Nikunj Yanez MD [address] [facility] [address] [place] [address] PCP - General Family Medicine 04/09/24 Sandee Santoyo NP [address] [facility] [address] [place] [address] Nurse Practitioner Family Medicine 04/09/24 11/21/24 documented as of this encounter
--- OUTSIDE RECORDS SUMMARY | 2025-05-21 09:20 | XMS_ITS | Encounter Summary ---
Author Organization [facility] Address [address] [place] [address] Care Team Providers Care Pecan Cleaner Name Role Phone Rosa Barker MD Unavailable Nikunj Yanez MD Primary Care Provider [phone] Sandee Cage NP Unavailable [phone] Encounter Details Date Type Department Care Team [...] often do you attend chur ch or jewish services? More than 4 times per year 06/05/2024 Do you belong to any clubs o r organizations such as uatsdin groups, unions, fraternal or athletic groups, or [...] Recorded Patient Health Questionnaire-2 Score 0 05/03/2024 [facility] of Occupat ional [facility] - Occupational Stress Questionnaire Answer [...] any time in the past 12 m [facility], were you homeless or living in [...] AM EST Office Visit [facility] [place] [facility] [address] [place] [address] Husam Muñoz MD [address] [place] [address] documented as of this encounter Procedures Procedure Name Priority Date/Time Associated Diagnosis Comments CT CHEST HIGH RESOLUTION 08/25/2024 6:00 AM EST documented in this encounter Results * CT CHEST HIGH RESOLUTION (08/25/2024 6:00 AM EST) Anatomical Region Laterality Modality Radiographic Jeny ging 08/25/2024 6:00 AM EST Narrative 08/25/2024 6:03 AM EST [address] [address] [address] Scan Report Signed Patient: RIGO PETE MR#: [id number] : 1960 Acct:[id number] Age/Sex: 64 / M ADM Date: 08/24/24 Loc: CT Attending Dr: Jayleen Ashford D.O. Ordering Physician: Jayleen Ashford D.O. Date of Service: 08/24/24 Procedure(s): CT chest high res Accession Number(s): [id number] cc: SANDEE CAGE [address] [address] Patient Name: RIGO PETE MRN: [id number] date: 1960 Sex: M Assigned Patient Location: CT Current Patient Location: Accession/Order Number: [id number] Exam Date: 08/24/2024 08:09 Report Date: 08/25/2024 [...] M.D. Signed By: 08/25/24602 DD/ 9 TD/TT: Manager Metrology: Procedure Note Radiology, Radiologist, MD - 08/25/2024 [place] [address] CT Scan Report Signed Patient: RIGO PETE NMR#: [id number] : 1960cct:[id number] Age/Sex: 64 / MADM Date: 08/24/24 Loc: CT Attending Dr: Jayleen Ashford D.O. Ordering Physician: Jayleen Ashford D.O. Date of Service: 08/24/24 Procedure(s): CT chest high res Accession Number(s): [id number] cc: SANDEE CAGE [place] [address] Patient Name: RIGO PETE MRN: [facility]:[id number] date: 1960 Sex: M Assigned Patient Location: CT Current Patient Location: Accession/Order Number: [id number] Exam Date: 08/24/2024 08:09 Report Date: 08/25/2024 [...] 06:00 Dictated By: Kian Tinajero M.D. Signed By:08/25/24602 DD/ 9 TD/TT: Manager Metrology: Generic External Data Provider IMG XR PROCEDURES Final Result documented in this encounter Visit Diagnoses Not on filedocumented in this encounter Care Teams Pecan Cleaner Relationship Specialty Start Date End Date Rosa Barker MD [address] [address] PCP - Devoted 09/05/22 Nikunj Yanez MD [address] [facility] [address] [place] [address] PCP - General Family Medicine 04/09/24 Sandee Cage NP [address] [place] [address] [place] [address] Nurse Practitioner Family Medicine 04/09/24 11/21/24 documented as of this encounter
--- OUTSIDE RECORDS SUMMARY | 2025-05-21 09:20 | XMS_ITS | Clinical Summary ---
Author Organization [facility] Address [address] [place] [address] Care Team Providers Care Order Desk Clerk Name Role Phone Rosa Barker MD Unavailable Nikunj Yanez MD Primary Care Provider [phone] Allergies No known active allergies Medications oxyCODONE-aceta minophen (Percocet) 5-325 MG tablet Take 1 tablet by mouth every 6 (six) hours if needed Active atorvastatin (Lipitor) 20 MG tabletIndicatio ns:Hyperlipidem ia, unspecified TAKE 1 TABLET BY MOUTH DAILY 90 tablet 1 4 Active atenolol (Tenormin) 25 MG tablet Take 25 mg by mouth Daily 4 Active albuterol 1.25 MG/3ML nebulizer solution Take 1.25 mg by nebulization every 6 (six) hours if needed for wheezing Active montelukast (Singulair) 10 MG tabletIndicatio ns:Allergic rhinitis, unspecified Take 1 tablet (10 mg) by mouth Daily 90 tablet 1 5 Active clarithromycin (Biaxin) 250 MG tabletIndicatio ns:Rosacea, unspecified TAKE 1 TABLET BY MOUTH DAILY 90 tablet 5 Active phentermine 37.5 MG capsuleIndicati ons:Class 1 obesity due to excess calories with serious comorbidity and body mass index (BMI) of 33.0 to 33.9 in adult Take 1 capsule (37.5 mg) by mouth in the morning. Take before meals. 30 capsule 5 Active methocarbamol (Robaxin) 750 MG tablet Take 750 mg by mouth in the morning and 750 mg at noon and 750 mg in the evening and 750 mg before bedtime. Active testosterone cypionate (Depo-Testoster one) 200 MG/ML injectionIndica tions:Hypopitui tarism (HCC) Inject 1 mL (200 mg) into the shoulder, thigh, or buttocks every 14 (fourteen) days 6 mL 07/14/20 25 Active Active Problems Problem Noted Date Diagnosed Date Degenerative lumbar spinal stenosis 03/26/2025 Assessment & Plan (03/26/2025 11:14 AM EDT): Continued pain and follow with surgeon. Primary osteoarthritis of left hip 03/26/2025 Assessment & Plan (03/26/2025 11:14 AM EDT): Continued pain and CT suggestive avascular necrosis. Refer to ortho. Abnormal CT scan 03/26/2025 Assessment & Plan (03/26/2025 11:13 AM EDT): CT suggestive avascular necrosis and refer to ortho. Coronary artery disease invo [place]ving [place] coronary artery of [place] heart without angina pectoris 01/25/2025 Hypopituitarism 08/09/2024 Decreased libido 08/09/2024 Paralyzed hemidiaphragm 06/06/2024 Class 1 obesity due to exces s calories with serious comorbidity and body mass index (BMI) of 33.0 to 33.9 in adult 12/29/2023 Assessment & Plan (03/26/2025 11:14 AM EDT): Patient doing well with adipex and lost [...] develop new or worsening symptoms contact office. Assessment & Plan (01/25/2025 11:10 AM EDT): [...] panel. Hypertensive disorder 08/18/2023 Assessment & Plan (03/26/2025 11:14 AM EDT): BP slightly elevated but normal at home and monitor PRN. Assessment & Plan (05/03/2024 2:17 PM EDT): [...] obstructive lung disease 11/24/2016 Assessment & Plan (03/26/2025 11:13 AM EDT): Follow up with pulmonology. Assessment & Plan (01/25/2025 11:09 AM EDT): [...] severe lumbar stenosis Pain management referred to [facility] for further management. [...] Encounters Date Type Department Care Team Description 04/12/2025 11:10 AM EDT Office Visit [facility] [address] [place] [address] Husam Muñoz MD Hypopituitarism (HCC) (Primary Dx); Decreased libido; Encounter for dietary consultation; Class 1 obesity due to excess calories without serious comorbidity with body mass index (BMI) of 32.0 to 32.9 in adult 04/12/2025 Refill [facility] [facility] [address] [place] [address] Husam Muñoz MD Hypopituitarism (HCC) 04/12/2025 Bamboo flowsheet [facility] [facility] [address] [place] [address] Husam Muñoz MD 04/02/2025 Refill [facility] [address] [place] [address] Nikunj Yanez MD Class 1 obesity due to excess calories with serious comorbidity and body mass index (BMI) of 33.0 to 33.9 in adult 03/26/2025 10:15 AM EDT Office Visit [facility] [address] [place] [address] Nikunj Yanez MD Primary hypertension (Primary Dx); Chronic obstructive pulmonary disease, unspecified COPD type (HCC); Primary osteoarthritis of left hip; Abnormal CT scan; Degenerative lumbar spinal stenosis; Class 1 obesity due to excess calories with serious comorbidity and body mass index (BMI) of 33.0 to 33.9 in adult 03/26/2025 Bamboo flowsheet [facility] [address] [place] [address] Nikunj Yanez MD 03/21/2025 Patient Outreach [facility] [place] [address] Nichole Dean MA 03/01/2025 Clinisync Result Encounter [facility] External Department Unsolicited Provider, Generic External Data 02/26/2025 Refill [facility] [address] [facility] [place] [address] Nikunj Yanez MD Class 1 obesity due to excess calories with serious comorbidity and body mass index (BMI) of 33.0 to 33.9 in adult from Last 3 Months Family [...] How often do you attend chur or anabaptist services? More than 4 times per year 06/05/2024 Do you belong to any clubs o r organizations such as buddhist groups, unions, fraternal or athletic groups, or [...] Recorded Patient Health Questionnaire-2 Score 0 01/25/2025 [facility] of Occupat ional Health - [...] place to sleep or slept in a intermediate (including now)? No 08/18/2023 Housing Stability Vital Sign Answer Naseem e Recorded In the last 12 months, was t here a time when you were not able to pay the mortgage or rent on time? No 06/05/2024 Number of Times Moved in the Last Year Not on fi le 06/05/2024 At any time in the past 12 m [facility], were you homeless or living in a intermediate (including now)? No 06/05/2024 Sex and Gender Information Value Date Recorded Sex Assigned at Not on file Legal Sex Male 7:09 PM EDT Gender Identity Not on file Sexual Orientation Not on file Last Filed Vital Signs Vital Sign Reading Time Taken Comments Blood Pressure 110/80 04/12/2025 11:03 AM EDT Pulse 82 04/12/2025 11:03 AM EDT Temperature 36.6 C (97.8 F) 03/26/2025 10:27 AM EDT Respiratory Rate 18 04/12/2025 11:03 AM EDT Oxygen Saturation 96% 04/12/2025 11:03 AM EDT Inhaled Oxygen Concentration - - Weight 108 kg (239 lb) 04/12/2025 11:03 AM EDT Height 182.9 cm (6') 04/12/2025 11:03 AM EDT Body Mass Index 32.41 04/12/2025 11:03 AM EDT Plan of Treatment Upcoming Encounters Date Type Department Care Team (Late st Contact Info) Description 08/12/2025 10:20 AM EST Office Visit [facility] [facility] [address] [place] [address] Husam Muñoz MD [address] [place] [address] Health Maintenance Due Date Last Done Comments CT Colonography 1960 FIT-DNA 1960 FIT 1960 FOBT 1960 Sigmoidoscopy 1960 Pneumococcal Vaccine: 65+ Ye ars (1 of 2 - PCV) 1978 Influenza Vaccine (#1) 2025 Medicare Annual Wellness (AWV) 01/25/2026 0 01/25/2025, 08/18/2023, 08/18/2023 Colonoscopy 11/01/2033 11/01/2023, 10/31/2023 Colorectal Cancer Screening 11/01/2033 Procedures Procedure Name Priority Date/Time Associated Diagnosis Comments TESTOSTERONE, TOTAL, MALES (ADULT), IA Routine 03/05/2025 10:44 AM EDT Hypopituitarism (HCC) HEMOGLOBIN Routine 03/05/2025 10:43 AM EDT Hypopituitarism (HCC) PSA, TOTAL Routine 03/05/2025 9:47 AM EDT Hypopituitarism (HCC) ALL TESTOSTERONE Routine 03/01/2025 10:0 1 AM EDT MHPT PSA, DIAGNOSTIC Routine 03/01/2025 10:01 AM EDT ALL HEMOGLOBIN Routine 03/01/2025 10:01 AM EDT COLONOSCOPY Routine 11/01/2023 11:53 AM EST from Last 3 Months or Most Recently Relevant to Health Maintenance Results * Testosterone (03/05/2025 10:44 AM EDT) Blood Venous blood specimen / Unknown Husam Muñoz MD LAB BLOOD ORDERABLES Final Re sult Performing Organization Address [facility] de Phone Number [facility] * Hemoglobin (03/05/2025 10:43 AM EDT) Blood Venous blood specimen / Unknown Husam Muñoz MD LAB BLOOD ORDERABLES Final Re sult Performing Organization Address [facility] de Phone Number [facility] * PSA (03/05/2025 9:47 AM EDT) Blood Venous blood specimen / Unknown Husam Muñoz MD LAB BLOOD ORDERABLES Final Re sult Performing Organization Address [facility] de Phone Number [facility] * MHPT PSA, DIAGNOSTIC (03/01/2025 10:01 AM EDT) PROSTATE SPECIFIC ANTIGEN DX 1.23 <=4.00 ng/mL [facility] 03/01/2025 10:0 1 AM EDT 03/01/2025 10:06 AM EDT Narrative [facility] - 03/01/2025 11:15 AM EDT Generic External Data Provider [facility] F inal Result Performing Organization Address [facility] de Phone Number [facility] TB * ALL TESTOSTERONE (03/01/2025 10:01 AM EDT) TESTOSTERONE 296 264 - 916 ng/dL [facility] Comment: Adult male reference interval is based on a population of healthy nonobese males (BMI <30) between 19 and 39 years old. farzana Doyle.al. JCEM 2017,102;5166-2065. PMID: [id number]. Performed at: [facility] [address] [place], [place] [id number] Mercury Cracking Tester: Demar Dias PhD, Phone: [phone] 03/01/2025 10:0 1 AM EDT 03/01/2025 10:06 AM EDT Narrative [facility] - 03/02/2025 4:08 AM EDT Generic External Data Provider [facility] F inal Result Performing Organization Address [facility] Co de Phone Number [facility] * ALL HEMOGLOBIN (03/01/2025 10:01 AM EDT) [facility] HGB 17.8 14.0 - 18.0 g/dL [facility] 03/01/2025 10:0 1 AM EDT 03/01/2025 10:06 AM EDT Narrative [facility] - 03/01/2025 10:21 AM EDT Generic External Data Provider [facility] F inal Result Performing Organization Address [facility] de Phone Number [facility] * Colonoscopy (11/01/2023 11:53 AM EST) Anatomical Region Laterality Modality Endoscopy Miguel Huffman DO ENDOSCOPY PROCEDURE ORDER JACQUI Final Result from Last 3 Months or Most Recently Relevant to Health Maintenance Insurance [employer] Care Teams Order Desk Clerk Relationship Specialty Start Date End Date Rosa Barker MD [address] [facility] [address] [place] [address] PCP - Devoted 09/05/22 Nikunj Yanez MD [address] [facility] [address] [place] [address] PCP - General Family Medicine 04/09/24
--- OUTSIDE RECORDS SUMMARY | 2025-05-21 09:20 | XMS_ITS | Encounter Summary ---
Author Organization [facility] Address [address] [place] [address] Care Team Providers Care Stove Refinisher Name Role Phone Rosa Barker MD Unavailable Nikunj Yanez MD Primary Care Provider [phone] Sandee Santoyo NP Unavailable [phone] Encounter Details Date Type Department Care Team (Late st Contact Info) Description 04/12/2024 Abstract ANDI [facility] [address] [place] [address] Unallocated, Andi ProviderMD [address] [place], [place] [address] Social History Tobacco Use Types Packs/Day Years [...] often do you attend chur ch or mormon services? More than 4 times per year 08/18/2023 Do you belong to any clubs o r organizations such as synagogue groups, unions, fraternal or athletic groups, or [...] Recorded Patient Health Questionnaire-2 Score 0 01/31/2024 [facility] Questionnaire Answer Date [...] [facility] [place] [facility] [address] [place] [address] Husam Muñoz MD [address] [place] [address] documented as of this encounter Visit Diagnoses Not on filedocumented in this encounter Care Teams Stove Refinisher Relationship Specialty Start Date End Date Rosa Barker MD [address] [facility] [address] [place] [address] PCP - Devoted 09/05/22 Nikunj Yanez MD [address] [facility] [address] [place] [address] PCP - General Family Medicine 04/09/24 Sandee Santoyo NP [address] [facility] [address] [place] [address] Nurse Practitioner Family Medicine 04/09/24 11/21/24 documented as of this encounter
--- OUTSIDE RECORDS SUMMARY | 2025-05-21 09:20 | XMS_ITS | Encounter Summary ---
Author Organization [facility] Address [address] [place] [address] Care Team Providers Care Auto Carrier Driver Name Role Phone Rosa Barker MD Unavailable Shaikh CURRY Malik Primary Care Provider [phone] Nikunj Yanez MD Primary Care Provider [phone] Sandee Santoyo NP Unavailable Encounter Details Date [...] any clubs o r organizations such as anabaptist groups, unions, fraternal or athletic groups, or [...] Recorded Patient Health Questionnaire-2 Score 0 01/31/2024 [facility] of Occupat ional Health - Occupational [...] EST Office Visit [facility] [place] [facility] [address] [place] [address] Husam Muñoz MD [address] [place] [address] documented as of this encounter Procedures Procedure Name Priority Date/Time Associated Diagnosis Comments MR LUMBAR SPINE WO CON 04/03/2024 4:10 PM EDT documented in this encounter Results * MR LUMBAR SPINE WO CON (04/03/2024 4:10 PM EDT) Anatomical Region Laterality Modality Other 04/03/2024 4:10 PM EDT Narrative 04/03/2024 4:13 PM EDT The [address] [address] Magnetic Resonance Report Signed Patient: RIGO PETE MR#: [id number] : 1960 Acct:[id number] Age/Sex: 64 / M ADM Date: 04/03/24 Loc: MRI Attending Dr: Pedro Del Real NP Ordering Physician: Pedro Del Real NP Date of Service: 04/03/24 Procedure(s): MR lumbar spine wo con Accession Number(s): [id number] cc: Shaikh Meka Malik; Pedro Del Real NP [place] [id number] Patient Name: RIGO PETE MRN: [facility]:[id number] date: 1960 Sex: M Assigned Patient Location: MRI Current Patient Location: PM Accession/Order Number: [id number] Exam Date: 04/03/2024 09:09 Report Date: 04/03/2024 [...] M.D. Signed By: 04/03/241612 DD/ 09 TD/TT: Tank Insulator Rubber: Procedure Note Radiology, Radiologist, MD - 04/03/2024 [place] [address] Magnetic Resonance Report Signed Patient: RIGO PETE [facility]#: [id number] : 1960cct:[id number] Age/Sex: 64 / MADM Date: 04/03/24 Loc: MRI Attending Dr: Pedro Del Real NP Ordering Physician: Pedro Del Real NP Date of Service: 04/03/24 Procedure(s): MR lumbar spine wo con Accession Number(s): [id number] cc: Shaikh Meka Malik; Pedro Del Real NP The [place] [address] Patient Name: RIGO PETE MRN: [facility]:[id number] date: 1960 Sex: M Assigned Patient Location: MRI Current Patient Location: Accession/Order Number: [id number] Exam Date: 04/03/2024 09:09 Report Date: 04/03/2024 [...] By: Radha Diaz M.D. Signed By:04/03/241612 DD/ 161 TD/TT: Tank Insulator Rubber: Generic External Data Provider [facility] Final Result documented in this encounter Visit Diagnoses Not on filedocumented in this encounter Care Teams Auto Carrier Driver Relationship Specialty Start Date End Date Rosa Barker MD [address] [place] [address] PCP - Devoted 09/05/22 Shaikh Malik MD [address] [place] [address] PCP - General Internal Medicine 11/23/23 04/08/24 Nikunj Yanez MD [address] [place] [address] PCP - General Family Medicine 04/09/24 Sandee Santoyo NP [address] [place] [address] Nurse Practitioner Family Medicine 04/09/24 11/21/24 documented as of this encounter
--- OUTSIDE RECORDS SUMMARY | 2025-05-21 09:20 | XMS_ITS | Encounter Summary ---
Author Organization [facility] Address [address] [place] [address] Care Team Providers Care Shampoo Assistant Name Role Phone Rosa Barker MD Unavailable Nikunj Yanez MD Primary Care Provider [phone] Sandee Santoyo NP Unavailable [phone] Encounter Details Date Type Department Care Team [...] often do you attend chur ch or cheondoism services? More than 4 times [...] Recorded Patient Health Questionnaire-2 Score 0 05/03/2024 [facility] of Occupat ional [facility] - Occupational Stress Questionnaire Answer Date Recorded [...] place to sleep or slept in a prison (including now)? No 08/18/2023 Sex and Gender [...] [facility] [place] [facility] [address] [place] [address] Husam Muñoz MD [address] [place] [address] documented as of this encounter Procedures Procedure Name Priority Date/Time Associated Diagnosis Comments CA ECHO DOPPLER COMPLETE 05/24/2024 4:55 PM EDT documented in this encounter Results * CA ECHO DOPPLER COMPLETE (05/24/2024 4:55 PM EDT) Anatomical Region Laterality Modality Other 05/24/2024 4:55 PM EDT Narrative 05/24/2024 4:56 PM EDT The [address] [address] Cardiology Report Signed Patient: RIGO PETE MR#: [id number] : 1960 Acct:[id number] Age/Sex: 64 / M ADM Date: 05/22/24 Loc: CARD Attending Dr: Elias Manzano M.D. Ordering Physician: Elias Manzano M.D. Date of Service: 05/22/24 Procedure(s): CA echo doppler complete Accession Number(s): [id number] cc: Shaikh Meka Malik; Elias Manzano M.D. Patient Name: RIGO PETE MR#: [id number] : 1960 Exam Date: 05/22/2024 Ordering Doctor: [...] M.D. Signed By: 05/24/246 DD/ 54 TD/TT: Coat Repair Inspector: Procedure Note Radiology, Radiologist, MD - 05/24/2024 [place] [address] Cardiology Report Signed Patient: RIGO PETE [facility]#: [id number] : 9Acct:[id number] Age/Sex: 64 / MADM Date: 05/22/24 Loc: CARD Attending Dr: Elias Manzano M.D. Ordering Physician: Elias Manzano M.D. Date of Service: 05/22/24 Procedure(s): CA echo doppler complete Accession Number(s): [id number] cc: Shaikh Meka Malik; Elias Manzano M.D. Patient Name: RIGO PETE MR#: [id number] : 1960 Exam Date: 05/22/2024 Ordering Doctor: [...] 16:55 Dictated By: Derek Irby M.D. Signed By:05/24/241655 DD/ 54 TD/TT: Coat Repair Inspector: Generic External Data Provider [facility] Final Result documented in this encounter Visit Diagnoses Not on filedocumented in this encounter Care Teams Shampoo Assistant Relationship Specialty Start Date End Date Rosa Barker MD [address] [place] [address] PCP - Devoted 09/05/22 Nikunj Yanez MD [address] [place], [place] [address] PCP - General Family Medicine 04/09/24 Sandee Santoyo NP [address] [facility] [address] [place] [address] Nurse Practitioner Family Medicine 04/09/24 11/21/24 documented as of this encounter
--- OUTSIDE RECORDS SUMMARY | 2025-05-21 09:20 | XMS_ITS | Clinical Summary ---
Author Organization [facility] Address [address] [place] [address] Phone Care Team Providers Care Spinal Surgeon Name Role Phone Unavailable Primary Care Provider [...] on file Medical Devices Implanted Type Area Building Trades Teacher Device Identifier Shelf Expiration Date Model / Serial / Lot Kit, Pacing, Diaphragm, Synapse Case [id number] Implanted:Qty: 1 on 12/12/2017 by Daniel Caballero MD Implant [employer] 08/04/2018-0035 / 20-0028-12 0817-10 / -0036-12 1917-3-3 Description:Converted from [facility]. Please see archived information for full log information.
--- OUTSIDE RECORDS SUMMARY | 2025-05-21 09:20 | XMS_ITS | Encounter Summary ---
Author Organization [facility] Address [address] [facility] [place] [address] Care Team Providers Care Reimbursement Representative Name Role Phone Rosa Barker MD Unavailable Shaikh CURRY Malik Primary Care Provider [phone] Nikunj Yanez MD Primary Care Provider [phone] Sandee Santoyo NP Unavailable [phone] Reason for Visit * Reason Comments Med Refill Encounter Details Date Type Department Care Team (Late st Contact Info) Description 02/21/2024 Refill [facility] [address] [place] [address] Shaikh Malik MD [address] [place] [address] Rosacea, unspecified Social History Tobacco Use Types [...] How often do you attend chur or gnosticism services? More than 4 times per year [...] Recorded Patient Health Questionnaire-2 Score 0 01/31/2024 [facility] - Occupational [...] Visit [facility] [place] [facility] [address] [place] [address] Husam Muñoz MD [address] [place] [address] documented as of this encounter Visit Diagnoses Diagnosis Rosacea, unspecified documented in this encounter Care Teams Reimbursement Representative Relationship Specialty Start Date End Date Rosa Barker MD [address] [place] [address] PCP - Devoted 09/05/22 Shaikh Malik MD [address] [place] [address] PCP - General Internal Medicine 11/23/23 04/08/24 Nikunj Yanez MD [address] [place] [address] PCP - General Family Medicine 04/09/24 Sandee Santoyo NP [address] [place] [address] Nurse Practitioner Family Medicine 04/09/24 11/21/24 documented as of this encounter
--- OUTSIDE RECORDS SUMMARY | 2025-05-21 09:20 | XMS_ITS | Clinical Summary ---
Author Organization [facility] Address [address] [place] [address], [address] [place] [address] Care Team Providers Care Private Duty Rn Name Role Phone Unavailable Primary Care Provider [...]
--- OUTSIDE RECORDS SUMMARY | 2025-05-21 09:20 | XMS_ITS | Encounter Summary ---
Author Organization [facility] Address [address] [place] [address] Care Team Providers Care Turret Lathe Set Up Operator Name Role Phone Rosa Barker MD Unavailable Shaikh CURRY Malik Primary Care Provider [phone] Nikunj Yanez MD Primary Care Provider [phone] Sandee Santoyo NP Unavailable [phone] Encounter Details Date Type Department Care Team [...] any clubs o r organizations such as tenriism groups, unions, fraternal or athletic groups, or [...] Recorded Patient Health Questionnaire-2 Score 0 01/31/2024 [facility] - Occupational Stress [...] place to sleep or slept in a care home (including now)? No 08/18/2023 Sex and [...] Visit [facility] [place] [facility] [address] [place] [address] Husam Muñoz MD [address] [place] [address] documented as of this encounter Procedures Procedure Name Priority Date/Time Associated Diagnosis Comments XR LUMBAR SPINE 6V W BENDING 04/04/2024 2:07 PM EDT documented in this encounter Results * XR LUMBAR SPINE 6V W BENDING (04/04/2024 2:07 PM EDT) Anatomical Region Laterality Modality Other 04/04/2024 2:07 PM EDT Narrative 04/04/2024 2:09 PM EDT The [address] [address] XRay Report Signed Patient: RIGO PETE MR#: [id number] : 1960 Acct:[id number] Age/Sex: 64 / M ADM Date: 04/03/24 Loc: MRI Attending Dr: Pedro Del Real NP Ordering Physician: Pedro Del Real NP Date of Service: 04/03/24 Procedure(s): XR lumbar spine 6V w bending Accession Number(s): [id number] cc: Shaikh Meka Malik; Pedro Del Real NP The [place] [id number] Patient Name: RIGO PETE MRN: [id number]:[id number] date: 1960 Sex: M Assigned Patient Location: MRI Current Patient Location: Accession/Order Number: [id number] Exam Date: 04/03/2024 09:50 Report Date: 04/04/2024 [...] Signed By: 04/04/24 1409 DD/ 1407 TD/TT: Housekeeper Home: Procedure Note Radiology, Radiologist, MD - 04/04/2024 [place] [address] XRay Report Signed Patient: RIGO PETE NMR#: [id number] : 9Acct:[id number] Age/Sex: 64 / MADM Date: 04/03/24 Loc: MRI Attending Dr: Pedro Del Real NP Ordering Physician: Pedro Del Real NP Date of Service: 04/03/24 Procedure(s): XR lumbar spine 6V w bending Accession Number(s): [id number] cc: Shaikh Meka Malik; Pedro Del Real NP [address] [address] Patient Name: RIGO PETE MRN: [id number] date: 1960 Sex: M Assigned Patient Location: MRI Current Patient Location: Accession/Order Number: [id number] Exam Date: 04/03/2024 09:50 Report Date: 04/04/2024 [...] M.D. Signed By:04/04/24 1409 DD/ 1407 TD/TT: Housekeeper Home: Generic External Data Provider [facility] Final Result documented in this encounter Visit Diagnoses Not on filedocumented in this encounter Care Teams Turret Lathe Set Up Operator Relationship Specialty Start Date End Date Rosa Barker MD [address] [place] [address] PCP - Devoted 09/05/22 Shaikh Malik MD [address] [place] [address] PCP - General Internal Medicine 11/23/23 04/08/24 Nikunj Yanez MD [address] [place] [address] PCP - General Family Medicine 04/09/24 Sandee Santoyo NP [address] [place] [address] Nurse Practitioner Family Medicine 04/09/24 11/21/24 documented as of this encounter
--- OUTSIDE RECORDS SUMMARY | 2025-05-21 09:20 | XMS_ITS | Encounter Summary ---
Author Organization [facility] Address [address] [place] [address] Care Team Providers Care High Voltage Electrician Name Role Phone Rosa Barker MD Unavailable Nikunj Yanez MD Primary Care Provider [phone] Sandee Santoyo NP Unavailable [phone] Encounter Details Date Type Department Care Team (Late st Contact Info) Description 09/10/2024 Orders Only [facility] [address] [place] [address] Husam Muñoz MD [address] [place] [address] Social History Tobacco Use Types Packs/Day Years [...] How often do you attend chur or caodaism services? More than 4 times per year 06/05/2024 Do you belong to any clubs o r organizations such as holiness groups, unions, fraternal or athletic groups, or [...] Recorded Patient Health Questionnaire-2 Score 0 05/03/2024 [facility] Occupat ional [...] any time in the past [address] [facility], were you homeless or living [...] Visit [facility] [place] [facility] [address] [place] [address] Husam Muñoz MD [address] [place] [address] documented as of this encounter Procedures Procedure [...] on filedocumented in this encounter Care Teams High Voltage Electrician Relationship Specialty Start Date End Date Rosa Barker MD [address] [place] [address] PCP - Devoted 09/05/22 Nikunj Yanez MD [address] [facility] [address] [place] [address] PCP - General Family Medicine 04/09/24 Sandee Santoyo NP [address] [facility] [address] [place] [address] Nurse Practitioner Family Medicine 04/09/24 11/21/24 documented as of this encounter
--- OUTSIDE RECORDS SUMMARY | 2025-05-21 09:20 | XMS_ITS | Encounter Summary ---
Author Organization [facility] Address [address] [place] [address] Care Team Providers Care Node Js Developer Name Role Phone Rosa Barker MD Unavailable Nikunj Yanez MD Primary Care Provider [phone] Sandee Santoyo NP Unavailable [phone] Encounter Details Date Type Department Care Team [...] often do you attend chur ch or mormonism services? More than 4 times per year 06/05/2024 Do you belong to any clubs o r organizations such as mormonism groups, unions, fraternal or athletic groups, or [...] Recorded Patient Health Questionnaire-2 Score 0 05/03/2024 [facility] - Occupational Stress Questionnaire Answer [...] time in the past 12 m [facility], were you homeless or living in a [...] Visit [facility] [place] [facility] [address] [place] [address] Husam Muñoz MD [address] [place] [address] documented as of this encounter Procedures Procedure Name Priority Date/Time Associated Diagnosis Comments RT PULMONARY FUNCTION TEST 08/24/2024 8:44 AM EST documented in this encounter Results * RT PULMONARY FUNCTION TEST (08/24/2024 8:44 AM EST) Anatomical Region Laterality Modality Other 08/24/2024 8:44 AM EST Narrative 08/27/2024 7:49 AM EST [address] [address] Respiratory Report Signed Patient: RIGO PETE MR#: [id number] : 1960 Acct:[id number] Age/Sex: 64 / M ADM Date: 08/24/24 Loc: CT Attending Dr: Aly Moslye D.O. Ordering Physician: Aly Mosley D.O. Date of Service: 08/24/24 Procedure(s): RT pulmonary function test Accession Number(s): [id number] cc: [facility] Test Date: 2024-08-24 Pat Name: RIGO PETE Department: Room: - Gender: Male Freight Rate Specialist: Emily Mckenna RRT : 1960 Requested By: Aly Mosley Order Number: [id number] Reading MD: Aly Mosley Interpretive Statements Pulmonary [...] 08/27/24 0749 08/27/24 0749 DD/ 0844 TD/TT: Monorail Hooker: Procedure Note Radiology, Radiologist, MD - 08/27/2024 [place] [address] Respiratory Report Signed Patient: RIGO PETE NMR#: [id number] : 1960cct:[id number] Age/Sex: 64 / MADM Date: 08/24/24 Loc: CT Attending Dr: Aly Mosley D.O. Ordering Physician: Aly Moslye D.O. Date of Service: 08/24/24 Procedure(s): RT pulmonary function test Accession Number(s): [id number] cc: [facility] Test Date: 2024-08-24 Pat Name: RIGO PETE Department: Room: - Gender: Male Freight Rate Specialist: Emily Mckenna RRT : 1960 Requested By: Aly Mosley Order Number: [id number] Reading MD: Aly Mosley Interpretive Statements Pulmonary [...] By:08/27/24 0749 08/27/24 0749 DD/ 0844 TD/TT: Monorail Hooker: us Generic External Data Provider [facility] Final Result documented in this encounter Visit Diagnoses Not on filedocumented in this encounter Care Teams Node Js Developer Relationship Specialty Start Date End Date Rosa Barker MD [address] [address] PCP - Devoted 09/05/22 Nikunj Yanez MD [address] [address] PCP - General Family Medicine 04/09/24 Sandee Santoyo NP [address] [address] Nurse Practitioner Family Medicine 04/09/24 11/21/24 documented as of this encounter
--- OUTSIDE RECORDS SUMMARY | 2025-05-21 09:28 | XMS_ITS | CCD ---
Author Organization [facility] Care Team Providers Care Station Cleaning Porter Name Role Phone Chandan Cool Unavailable Unavailable Osorio Sid William Unavailable Unavailable Required, No Pcp Unavailable Unavailable Chuck Cook Unavailable None, No PCP Unavailable Unavailable [facility], [facility] Primary Care Unavailable WEST, DR RADHA Gaxiola Consulting Unavailable DUNCAN ., DR LLUVIA Sheldon Attending Unavailable DUNCAN ., DR LLUVIA Sheldon Admitting Unavailable DUNCAN ., DR LLUVIA Sheldon Consulting Unavailable [facility], [facility] Primary Care Unavailable DUNCAN ., DR LLUVIA Sheldon Attending Unavailable DUNCAN ., DR LLUVIA Sheldon Consulting Unavailable DUNCAN ., DR LLUVIA Sheldon Admitting [facility] Primary Care Unavailable DUNCAN ., DR LLUVIA Sheldon Attending Unavailable DUNCAN ., DR LLUVIA Sheldon Consulting Unavailable DUNCAN ., DR LLUVIA Sheldon Admitting [facility]available [facility] Primary Care Unavailable ANDERSEN .RAVINDER Consulting Unavailable DUNCAN ., DR LLUVIA Sheldon Admitting Unavailable DUNCAN ., DR LLUVIA Sheldon Attending [facility]available [facility] Primary Care Unavailable ANDERSEN .RAVINDER Consulting Unavailable DUNCAN ., DR LLUVIA Sheldon Admitting Unavailable DUNCAN ., DR LLUVIA Sheldon Attending Unavailable [facility] Primary Care Unavailable LAKSHMIPATHY ., NARENDRANATH Attending Nadira vailable LAKSHMIPATHY ., NARENDRANATH Admitting Nadira vailable [facility], [facility] Primary Care Unavailable LAKSHMIPATHY ., NARENDRANATH Attending Nadira vailable LAKSHMIPATHY ., NARENDRANATH Consulting Nadira vailable LAKSHMIPATHY ., NARENDRANATH Admitting Nadira vailable [facility], [facility] Primary Care Unavailable LAKSHMIPATHY ., NARENDRANATH Consulting Nadira vailable LAKSHMIPATHY ., NARENDRANATH Admitting Nadira vailable LAKSHMIPATHY ., NARENDRANATH Attending Nadira vailable [facility] Primary Care Unavailable NATHALY .RAVINDER Consulting Unavailable CUCO ., DR LLUVIA Sheldon Attending Unavailable CUCO ., DR LLUVIA Sheldon Admitting Unavailable [facility] Primary Care Unavailable LAKSHMIPATHY ., NARENDRANATH Attending Nadira vailable RINA, DR DOMINGA William Consulting Unavailable LAKSHMIPATHY ., NARENDRANATH Admitting Nadira vailable LAKSHMIPATHY ., NARENDRANATH Consulting Nadira vailable Lakshmipathy , Kimberlyath Unavailable 1( [phone] Lucero ZAPIEN, Rosa Marion Unavailable Nikunj Carmona MD Primary Care Provider Natanael JENKINS, Mani Unavailable ELIAS MANZANO Attending Unavailable ELIAS MANZANO Attending Unavailable ELIAS MANZANO Attending Unavailable Neida ZAPIEN, Jonas Malin Attending Unavailable Neida ZAPIEN, Jonas Malin Attending Unavailable Nikunj Carmona MD Unavailable JUAN GREEN Attending Unavail able NUBIA PEGUERO Referring Unavailable NIKUNJ CARMONA Referring Unavailable NUBIA PEGUERO Attending Unavailable JANINE CAR Attending Unavailable NUBIA PEGUERO Referring Unavailable NIKUNJ CARMONA Attending Unavailable NIKUNJ CARMONA Attending Unavailable HUSAM MUÑOZ Attending Unavailable MANI SANTOYO Attending UnavailMANI Menon [...] for pain Quantity: 56 Refills: 0 Ordered: 10-Fabian-2021 Jesusita Stevenson Start: 12-Feb-2021 End: 18-Feb-2021 Generic Substitution Allowed albuterol 0.417 mg/ml inhalation solution (14 sources) beta2-Adrenergic Agonist albuterol 1.25 MG/3ML nebulizer [...] oral tablet (20 sources) Macrolide Antimicrobial Start: 025 take 1 tablet by mouth once daily [...] 25-Jul-2017 Active diazePAM 10 mg oral tablet (7 sources) Benzodiazepine Start: 04-02-2024 End: 05-03-2024 diazePAM [...] Take 15 mg by mouth. 04/10/2024 Active methocarbamol 750 mg oral tablet (3 sources) Muscle Relaxant methocarbamol (Robaxin) 750 MG tablet Take 750 mg by mouth in the morning and 750 mg at noon and 750 mg in the evening and 750 mg before bedtime. Active montelukast 10 mg oral tablet (20 sources) Leukotriene Receptor Antagonist Start: 02-23-2024 take 1 tablet by mouth once daily montelukast (Singulair) 10 MG tablet Indications: Allergic rhinitis, unspecified Take 1 tablet (10 mg) by mouth Daily 90 tablet 1 11/19/2024 Active phentermine hydrochloride 37.5 mg oral capsule [...] the morning. Take before meals. 30 capsule 04/02/2025 05/02/2025 Active Start: 06-21-2024 End: 07-21-2024 take 1 capsule [...] 200 mg/ml injection (20 sources) Androgen Start: 04-15-2025 End: 07-14-2025 testosterone cypionate (Depo-Testosterone) 200 MG/ML injection Indications: Hypopituitarism (HCC) Inject 1 mL (200 mg) into the shoulder, thigh, or buttocks every 14 (fourteen) days 6 mL 04/15/2025 07/14/2025 Active Start: 04-12-2025 End: 09-27-2025 testosterone cypionate (Depo -Testosterone) 200 MG/ML injection Indications: Hypopituitarism (HCC) Inject 0.75 mL (150 mg) into the shoulder, thigh, or buttocks every 14 (fourteen) days 4.5 mL 1 04/12/2025 04/15/2025 Discontinued Start: 09-11-2024 End: 04-12-2025 testosterone cypionate (Depo -Testosterone) 200 MG/ML injection Indications: Hypopituitarism (HCC) Inject 0.5 mL (100 mg) into the shoulder, thigh, or buttocks every 14 (fourteen) days 3 mL 1 09/11/2024 04/12/2025 Discontinued (Reorder) Start: 12-12-2023 testosterone c ypionate [...] MCG/ACT Inhalation Aerosol Solution Refills: 0 Travon SALGUERONNixonINTERIOR SPECIALISTChandan Start : 28-Nov-2017 Active 10 ml lidocaine hydrochloride 10 mg/ml injection (2 sources) Antiarrhythmic, Amide Local Anesthetic Start: 04-04-2025 End: 04-04-2025 lidocaine (PF) 10 mg/mL (1 %) 4 mL injection (XYLOCAINE) Start: 04-04-2025 End: 04-04-2025 4 mL, Injection - FOR ORTHO USE ONLY, ONCE, 1 dose, Starting on Carey 04/04/25 at 0735, Until Carey 04/04/25 at 0735 lisinopril 20 mg oral tablet (3 sources) Angiotensin Converting Enzyme Inhibitor Start: 01-25-2017 Lisinopril 20 MG Ora l Tablet Quantity: 30 Refills: 0 DO Start : 25-Jan-2017 Active sertraline 50 mg oral tablet (3 sources) Serotonin Reuptake Inhibitor Start: 01-25-2017 Sertraline HCl - 50 MG Oral Tablet Quantity: 30 Refills: 0 DO Start : 25-Jan-2017 Active 1 ml triamcinolone acetonide 40 mg/ml injection (2 sources) Corticosteroid Start: 04-04-2025 End: 04-04-2025 triamcinolone acetonide 40 mg injection (KeNALog 40) Start: 04-04-2025 End: 04-04-2025 40 mg, Injection - FOR ORTHO USE ONLY, ONCE, 1 dose, Starting on Carey 04/04/25 at 0735, Until Carey 04/04/25 at 0735 Problems Active Problems Problem Classification Problem Date Documented Date Episodic/Chronic Chronic obstructive pulmonary disease and bronchiectasis (20 sources) Chronic obstructive lung disease; Translations: [Chronic airway obstruction, not elsewhere classified] Onset: 11-24-2016 06-06-2024 Chronic Coronary atherosclerosis and other heart disease (12 sources) Atherosclerotic heart disease of grayling coronary artery without angina pectoris; Translations: [Coronary [...] without heart failure] Onset: 05-15-2024 Chronic Osteoarthritis (20 sources) Primary osteoarthritis, left shoulder; Translations: [Primary [...] Onset: 08-18-2023 08-18-2023 Chronic Other endocrine disorders (20 sources) Hypopituitarism; Translations: [Hypopituitarism] Onset: 08-09-2024 08-09-2024 [...] conditions (not mental disorders or infectious disease) (11 sources) Computed tomography result abnormal; Translations: [Abnormal [...] sources) Pain; Translations: [Pain, unspecified] 04-02-2025 Episodic Residual codes; unclassified (1 source) Pain, unspecified; Translations: [Pain] Onset: 04-02-2025 Episodic Spondylosis; intervertebral disc disorders; other back problems (3 sources) Spondylosis without myelopathy or radiculopathy, cervical region; Translations: [Other cervical disc degeneration, unspecified cervical region] Onset: 05-23-2022 Chronic Spondylosis; intervertebral disc disorders; other back problems (20 sources) Cervicalgia; Translations: [Muscle spasm of back] [...] 09-26-2023 Resolved: 11-23-2023 11-23-2023 Chronic Mood disorders (10 sources) Mood disorders Onset: 01-25-2025 01-25-2025 Other [...] Onset: 08-18-2023 08-18-2023 Episodic Residual codes; unclassified (20 sources) Reduced libido; Translations: [Decreased libido] Onset: 08-09-2024 08-09-2024 Episodic Unclassified (1 source) Obesity, class 1; Translations: [Obesity, class 1] Onset: 07-11-2024 NEGATED: Highlighted row has not occurred!Residual codes; unclassified (14 sources) Disease Episodic Results Test Name Value Interpretation Reference Range Facility [facility] 04-04-2025 CNOV Office Visit (LOORRM ) -- RIGO JEFFERSON ([id number]) 1960 M Date Time Provider Department 04/04/25 7:30 AM JANINE CAR LOORRM During your visit today, we recorded the following information about you: Janine Car DO 04/04/2025 7:36 AM Signed Patient presents for a left hip injection. Large Joint Arthro/Inj: L hip joint 04/04/2025 [...] these instructions. Informed Consent Consent Obtained: Verbal [place] Protocol A moment to CARE was completed. [...] the bedside nurse for hospitalized patients) applicable. (M16.12) Primary osteoarthritis of left hip (primary encounter diagnosis) Janine Car DO 04/04/2025 Referring Provider: NUBIA PEGUERO [[id number]] Allergies As of Date: 04/04/2025 (No Known Allergies) Date Reviewed: 04/04/2025 Reviewed by: Frances James LPN - Fully Assessed Reason for Visit: New [288123] Pain [78] Injections [199] Primary Visit Diagnosis:Primary osteoarthritis of left hip [M16.12] Order(s):US HIP-INJECTION LT (POC) BETI USE ONLY [7637455] Order #: [id number]. #:[id number]: 1 Large Joint Arthro/Inj: L hip joint [JEA533] Order #: [id number] [] lidocaine (PF) 10 mg/mL (1 %) 4 mL injection (XYLOCAINE)Disp: Rfl: [] triamcinolone acetonide 40 mg injection (KeNALog 40)Disp: Rfl: Prescriptions as of 04/04/2025 - atenolol (TENORMIN) 25 mg tablet Take 25 mg by mouth once daily. - atorvastatin (LIPITOR) 20 mg tablet Take 20 mg by mouth once daily. - cetirizine-pseudoephedrine (ZYRTEC-D) 5-120 mg per tablet Take 1 tablet by mouth two times a day. - clarithromycin (BIAXIN) 250 mg tablet Take 250 mg by mouth once daily. - diazePAM (VALIUM) 10 mg tablet Take 10 mg by mouth. - fluticasone (FLONASE) 50 mcg/actuation nasal spray 2 Sprays. - meloxicam (MOBIC) 15 mg tablet Take 15 mg by mouth. - montelukast (SINGULAIR) 10 mg tablet Take 10 mg by mouth once daily. - oxyCODONE-acetaminophen (PERCOCET) 5-325 mg tablet Take 1 tablet by mouth four times a day as needed. - testosterone cypionate (DEPO-TESTOSTERONE) 200 mg/mL injection Inject 100 mg intramuscularly every 4 weeks. - zonisamide (ZONEGRAN) 50 mg capsule 50 mg. Problem List As Of Date: 04/04/2025 (None) Prescriptions ordered this encounter Disp Refills Start End LIDOCAINE (PF) 10 MG/ML (1 %) INJECT* 04/04/2025 04/04/2025 Route: Inj-ORTHO TRIAMCINOLONE ACETONIDE 40 MG/ML EUGENIA* 04/04/2025 04/04/2025 Route: Inj-ORTHO Encounter Status:Closed by JANINE CAR on 04/04/25 Normal [facility] Large Joint Arthro/Inj: L hi p jointon 04-04-2025 Janine Car, DO 04/04/2025 7:36 AM Large Joint Arthro/Inj: [...] these instructions. Informed Consent Consent Obtained: Verbal [place] Protocol A moment to CARE was completed. [...] the bedside nurse for hospitalized patients) applicable. [facility] US HIP-INJECTION LT (POC) OR I USE ONLYon 04-04-2025 [facility] CNOVon 04-02-2025 CNOV Office Visit (ORAVON ) -- RIGO JEFFERSON ([id number]) 1960 M Date Time Provider Department 04/02/25 12:00 PM NUBIA PEGUERO During your visit today, we recorded the following information about you: Weight Height 104.8 kg 1.829 m Nubia Peguero MD 04/02/2025 1:12 PM Signed This note has been dictated. Yefri Peguero M.D. Referring Provider: NIKUNJ CARMONA [[id number]] Allergies As of Date: 04/02/2025 (Not on File) Date Reviewed: 04/02/2025 Reviewed by: Jimena Akhtar MA - Fully Assessed Reason for Visit: New [040383] Primary Visit Diagnosis:Primary osteoarthritis of left hip [M16.12] Order(s):XR HIP GENERAL 3V PELV/AP/LAT LEFT [[id number]] Order #: [id number] FUTURE XR HIP GENERAL 3V PELV/AP/LAT LEFT [[id number]] Order #: [id number] FUTURE Prescriptions as of 04/02/2025 - atenolol (TENORMIN) 25 mg tablet Take 25 mg by mouth once daily. - atorvastatin (LIPITOR) 20 mg tablet Take 20 mg by mouth once daily. - cetirizine-pseudoephedrine (ZYRTEC-D) 5-120 mg per tablet Take 1 tablet by mouth two times a day. - clarithromycin (BIAXIN) 250 mg tablet Take 250 mg by mouth once daily. - diazePAM (VALIUM) 10 mg tablet Take 10 mg by mouth. - fluticasone (FLONASE) 50 mcg/actuation nasal spray 2 Sprays. - meloxicam (MOBIC) 15 mg tablet Take 15 mg by mouth. - montelukast (SINGULAIR) 10 mg tablet Take 10 mg by mouth once daily. - oxyCODONE-acetaminophen (PERCOCET) 5-325 mg tablet Take 1 tablet by mouth four times a day as needed. - testosterone cypionate (DEPO-TESTOSTERONE) 200 mg/mL injection Inject 100 mg intramuscularly every 4 weeks. - zonisamide (ZONEGRAN) 50 mg capsule 50 mg. Problem List As Of Date: 04/02/2025 (None) Letter Text Encounter Status:Closed by NUBIA PEGUERO II on 04/02/25 Normal [facility] XR HIP 3V PELV+ AP/LAT LTon 04-02-2025 XR HIP 3V PELV+ AP/LAT LT * * *Final Report* * * DATE [...] degenerative changes in the lower lumbar spine. IMPRESSION: No acute osseous abnormality. Mild bilateral hip osteoarthritis, more pronounced in the left than on the right. Senior Asic Engineer: [facility] Transcribe Date/Time: Apr 02 2025 2:10P Dictated by : CUCA JOLLEY MD This examination was interpreted and the report reviewed and electronically signed by: CUCA JOLLEY MD on Apr 02 2025 5:00PM EST [id number] Normal [facility] XR Pelvis and Hip - left AP and Lateral frogon 04-02-2025 IMPRESSION: No acute osseous abnormality. Mild bilateral hip osteoarthritis, more pronounced in the left than on the right. Senior Asic Engineer: PSCB Transcribe Date/Time: Apr 02 2025 2:10P Dictated by : CUCA JOLLEY MD This examination was interpreted and the report reviewed and electronically signed by: CUCA JOLLEY MD on Apr 02 2025 5:00PM EST DIVISION OF RADIOLOGY * * *Final Report* [...] lower lumbar spine. DIVISION OF RADIOLOGY Provider, Anderson tyson [place] - 04/02/2025 * * *Final Report* * [...] in the left than on the right. Senior Asic Engineer: [facility] Transcribe Date/Time: Apr 02 2025 2:10P Dictated by : CUCA JOLLEY MD This examination was interpreted and the report reviewed and electronically signed by: CUCA JOLLEY MD on Apr 02 2025 5:00PM [facility] Radiology Study observation (narrative) [facility] XR Pelvis and Hip - left AP and Lateral frogOrdered By: Ccf Provider on 04-02-2025 [facility] ALL HEMOGLOBINon 03-01-2025 Hemoglobin (Bld) [Mass/Vol] 17.8 g/dL 14.0 - 18.0 g/dL [facility] ALL LIPID PROFILE (FASTING)o n 01-11-2025 CHOL HDL RATIO 2.1 [facility] Comment on above: 3.3 - 4.4 LOW RISK 4.4 - 7.1 AVERAGE RISK 7.1 - 11.0 MODERATE RISK >11.0 HIGH RISK Cholesterol [Mass/Vol] 96 mg/dL NINF - 200 mg/dL [facility] Cholesterol in HDL [Mass/Vol] 46 mg/dL 40 - 60 mg/dL [facility] Comment on above: > or =60 mg/dl - LOW CARDIOVASCULAR RISK <40 mg/dl - HIGH CARDIOVASCULAR RISK Magnesium [Mass/Vol] 41 mg/dL [facility] Comment on above: <100 mg/dl OPTIMAL 100-129 mg/dl NEAR OR ABOVE OPTIMAL 130-159 mg/dl BORDERLINE HIGH 160-189 mg/dl HIGH >190 mg/dl VERY HIGH Magnesium [Mass/Vol] 9 mg/dL [facility] Triglyceride [Mass/Vol] 45 mg/dL NINF - 150 mg/dL [facility] Deandre 01-11-2025 ALT [Catalytic activity/Vol] 43 U/L 16 - 63 U/L [facility] Gerard 01-11-2025 AST [Catalytic activity/Vol] 27 U/L 15 - 37 U/L [facility] Follow-up visit [id number] Rigo Jefferson 1960 M Date Provider Department Center 01/11/2025 ELIAS JACKSON AYAAN Rehman [facility] Family History Problem Relation Age of Onset Diabetes Mother Hypertension Mother Hypertension Father Coronary artery disease Brother Hypertension Brother Diabetes Brother Family Status - Relation Status Age at Mother Father Brother Level of Service:56040 [place] OFFICE/OUTPATIENT ESTABLISHED MOD MDM 30 MIN Reason for Visit and Comments: Coronary Artery Disease [187] - Denies chest pain. Hyperlipidemia [182] - Had lipids drawn this morning s/p increase in atorvastatin to 40mg daily in Sep 2024. Tolerating higher dose without issues. Hypertension [232799] Shortness of Breath [784689] Dizziness [580812] - Gets dizzy when he stands up and bends over, especially when the weather is hot. Normal [facility] ALL HEMOGLOBINon 09-07-2024 Hemoglobin (Bld) [Mass/Vol] 17.8 g/dL 14.0 - 18.0 g/dL [facility] ALL HEMOGLOBINon 08-24-2024 Hemoglobin (Bld) [Mass/Vol] 17.6 g/dL 14.0 - 18.0 g/dL [facility] Office Visiton 07-11-2024 Follow-up visit [id number] Rigo Jefferson 1960 M Date Provider Department Center 07/11/2024 [id number] MANZANO Family History Problem Relation Age of Onset Diabetes Mother Hypertension Mother Hypertension Father Coronary artery disease Brother Hypertension Brother Diabetes Brother Family Status - Relation Status Age at Mother Father Brother Level of Service:45344 [place] OFFICE/OUTPATIENT ESTABLISHED MOD MDM 30 MIN Reason for Visit and Comments: Coronary Artery Disease [187] Hypertension [592056] - Started on atenolol at last visit, had echo in may Hyperlipidemia [182] Shortness of Breath [905937] - PT ONLY HAS ONE LUNG Normal [facility] 36on 06-11-2024 36 From: Elias [...] in his pulse ox with exercise Normal [facility] Telephoneon 06-11-2024 Telephone [id number] Rigo Jefferson 1960 Date Provider Department Center 06/11/2024 [id number] LOMBARDO Family History Problem Relation Age of Onset Diabetes Mother Hypertension Mother Hypertension Father Coronary artery disease Brother Hypertension Brother Diabetes Brother Family Status - Relation Status Age at Mother Father Brother Normal [facility] CNOVon 05-31-2024 CNOV Office Visit (SPSNAV ) -- RIGO JEFFERSON ([id number]) 1960 M Date Time Provider Department 05/31/24 2:00 PM JUAN GREEN SPSNAV During your visit today, we recorded the following information about you: Juan Green MD 05/31/2024 3:12 PM Signed SPINE SURGERY NEW PATIENT This is an in-person visit. PCP: No primary care provider on file. 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 Normal [facility] No Panel Informationon 05-31 Radiology Study observation (narrative) [facility] XR CERV OTHER 4V AP/LAT/FLX/ EXTon 05-31-2024 IMPRESSION: Severe degenerative disc disease C4-C5. Solid bony fusion C5-C7. Senior Asic Engineer: SINAN Transcribe Date/Time: May 31 2024 9:27P Dictated by : JENN SANTOYO MD This examination was interpreted and the report reviewed and electronically signed by: JENN SANTOYO MD on May 31 2024 9:29PM [facility] RADIOLOGY * * *Final Report* * * [...] and extension. No prevertebral soft tissue swelling. [facility] Provider, [facility] [...] disc disease C4-C5. Solid bony fusion C5-C7. Senior Asic Engineer: SINAN Transcribe Date/Time: May 31 2024 9:27P Dictated by : JENN SANTOYO MD This examination was interpreted and the report reviewed and electronically signed by: JENN SANTOYO MD on May 31 2024 9:29PM EST [facility] XR CERV OTHER 4V AP/LAT/FLX/ EXTOrdered By: Ccf Provider on 05-31-2024 [facility] XR Lumbar spine Views W flex ion and W extensionon 05-31-2024 IMPRESSION: Mild to moderate multilevel degenerative change lumbar spine and suspected diffuse intrahepatic skeletal hyperostosis. Senior Asic Engineer: PSCMando Transcribe Date/Time: May 31 2024 9:29P [...] or compression deformity identified. [facility] Provider, [facility] [...] spine and suspected diffuse intrahepatic skeletal hyperostosis. Senior Asic Engineer: PSCB Transcribe Date/Time: May 31 2024 9:29P Dictated by : JENN SANTOYO MD This examination was interpreted and the report reviewed and electronically signed by: JENN SANTOYO MD on May 31 2024 9:31PM EST [facility] Office Visiton 05-14-2024 Follow-up visit [id number] Rigo Jefferson 1960 M Date Provider Department Center 05/14/2024 [id number] MANZANO [facility] Family History Problem Relation Age of Onset Diabetes Mother Hypertension Mother Hypertension Father Coronary artery disease Brother Hypertension Brother Diabetes Brother Family Status - Relation Status Age at Mother Father Brother Level of Service:68793 [place] OFFICE/OUTPATIENT NEW MODERATE MDM 45 MINUTES Reason for Visit and Comments: Hypertension [548797] - New patient to re-establish care. Ref for hypertension. Used to be on antihypertensives but is currently on none. Palpitations [766289] - Sometimes Shortness of Breath [026360] - Has 1 lung, hx of COPD, pulmonary emphysema Dizziness [760053] Normal [facility] MRI SHOULDER LT WO CONon [...] by: DOMINGA FLYNN Date: 2022-12-08 10:25 Normal [facility] MRI SHOULDER RT WO CONon MRI [...] by: DOMINGA FLYNN Date: 2022-12-08 10:35 Normal [facility] XR CSPINE OBL FLEX_EXTon XR CSPINE [...] Date: 2022-05-31 20:33 Normal [facility] Post Op (General Surgery)on 04-02-2021 Post Op [...] not he wants to follow-up with a body bumper in our system. Provider Impressions He is [...] not he wants to follow-up with a body bumper in our system. Chief Complaint An interactive [...] not he wants to follow-up with a body bumper in our system. Active Problems COPD (chronic [...] MG Oral Tablet Results/Data Xray Chest 1 [id number] 04:27PMJesusita Stevenson Test NameResultFlagReference Xray Chest 1 View(Report) FINAL REPORT Interpreted by: МАРИНА MARCELO MD 02/12/21 16:52 Patient Name: RIGO JEFFERSON STUDY: CHEST 1 VIEW; 02/12/2021 4:27 pm INDICATION: chest tube removal. COMPARISON: Prior 11:07 a.m. radiograph. ACCESSION NUMBER(S): [id number] ORDERING CLINICIAN: JESUSITA STEVENSON FINDINGS: Left basilar [...] Apr 02 2021 5:38PM EST (Author) Normal [place] Admission Risk Screen - Adul ton 02-12-2021 Admission Risk Screen - Adult Allergies: Allergies: No Known Allergies: Patient Verification: New W ID Band Applied in my Departmentno Type of ID Patient is WearingW wristband, but not applied here Patient Transferred from Other Facility ([facility], [facility],etc)no Patient Identity Verified Bypatient ID Band [...] AlertFor Ebola-like Symptoms: Isolate Patient and Notify Provider/Inorganic Chemist For Contact: Notify Provider/Inorganic Chemist Advance Directive: Advance Directive/DNRno (1) Advance Directive [...] any thoughts of harming anyone elseno (1) [place] Suicide: Risk Screen Not Applicable/Able to Answerable to be screened In the Past Month: Have you wished you were or could go to sleep and not wake upno(1) In the Past Month: Have you had any actual thoughts of killing yourself no(1) Lifetime: Have you ever done, started to do, or prepared to do anything to end your lifeno(1) [place] Suicide Risknegative Adult Nutrition Screen: Have you [...] (nonverbal)verbalization (more content not included)... Normal [facility] BASIC METABOLIC PANELon 02-03-2020 Anion gap [Moles/Vol] 15 mmol/L Normal 10 - 20 [facility] Comment on above: Performed By: #### B MP #### [facility] [address] [place] [address] Calcium [Mass/Vol] 9.5 mg/dL Normal 8.6 - 10.6 [facility] Comment on above: Performed By: #### B MP #### [facility] [address] [place] [address] Chloride [Moles/Vol] 102 mmol/L Normal 98 - 107 [facility] Comment on above: Performed By: #### B MP #### [facility] [address] [place] [address] Creatinine [Mass/Vol] 0.98 mg/dL Normal 0.50 - 1.30 [facility] Comment on above: Performed By: #### B MP #### [facility] [address] [place] [address] GFR- AM. >60 Normal >60 [facility] Comment on above: Result Comment: CALC ULATIONS OF ESTIMATED GFR ARE PERFORMED USING THE MDRD STUDY EQUATION FOR THE IDMS-TRACEABLE CREATININE METHODS. CLIN CHEM 2007;53:766-72 Performed By: #### B MP #### [facility] [address] [place] [address] GFR-NON AM. >60 Normal >60 [facility] Comment on above: Performed By: #### B MP #### [facility] [address] [place] [address] Glucose [Mass/Vol] 133 mg/dL High 74 - 99 [facility] Comment on above: Performed By: #### B MP #### [facility] [address] [place] [address] HCO3 (Bld) [Moles/Vol] 24 mmol/L Normal 21 - 32 [facility] Comment on above: Performed By: #### B MP #### [facility] [address] [place] [address] Potassium [Moles/Vol] 4.3 mmol/L Normal 3.5 - 5.3 [facility] Comment on above: Performed By: #### B MP #### [facility] [address] [place] [address] Sodium [Moles/Vol] 137 mmol/L Normal 136 - 145 [facility] Comment on above: Performed By: #### B MP #### [facility] [address] [place] [address] Urea nitrogen [Mass/Vol] 17 mg/dL Normal 6 - 23 [facility] Comment on above: Performed By: #### B MP #### [facility] [address] [place] [address] CBCon 02-12-2021 Erythrocyte distribution width (RBC) [Ratio] 12.1 % Normal 11.5 - 14.5 [facility] Comment on above: Performed By: #### C BC #### [facility] [address] [place] [address] Hematocrit (Bld) [Volume fraction] 45.8 % Normal 41.0 - 52.0 [facility] Comment on above: Performed By: #### C BC #### [facility] [address] [place] [address] Hemoglobin (Bld) [Mass/Vol] 15.0 g/dL Normal 13.5 - 17.5 [facility] Comment on above: Performed By: #### C BC #### [facility] [address] [place] [address] MCHC (RBC) [Mass/Vol] 32.8 g/dL Normal 32.0 - 36.0 [facility] Comment on above: Performed By: #### C BC #### [facility] [address] [place] [address] MCV (RBC) [Entitic vol] 94 fL Normal 80 - 100 [facility] Comment on above: Performed By: #### C BC #### [facility] [address] [place] [address] NUCLEATED RBC 0.0 /100 WBC Normal 0.0-0.0 [facility] Comment on above: Performed By: #### C BC #### [facility] [address] [place] [address] Platelets (Bld) [#/Vol] 228 10*3/uL Normal 150 - 450 [facility] Comment on above: Performed By: #### C BC #### [facility] [address] [place] [address] RBC 4.85 x10E12/L Normal 4.50 - 5.90 [facility] Comment on above: Performed By: #### C BC #### [facility] [address] [place] [address] WBC (Bld) [#/Vol] 12.8 10*3/uL High 4.4 - 11.3 [facility] Comment on above: Performed By: #### C BC #### [facility] [address] [place] [address] Clinical Event Note-POCon Clinical Event Note-POC Clinical [...] by Nataliia Ferris ( (Resident)) Normal [facility] Daily Progress Note-Surgeryo n 02-12-2021 Daily [...] yet. Objective Data: Objective Information: T PRBPSpO2 Value35.07038396/8695% Date/Time02/12 6:4902/12 6:4902/12 6:4902/12 6:4910 6:49 Range(35.4C - 36.4C ) (77 - 99 ) (17 - 18 ) (127 - 147 )/ (86 - 91 ) (95% - 96% ) Pain reported at 02/12 2:54: 6 = Moderate ---- Intake and Output ----- Mn/Dy/Year TimeIntakeOutputNet Feb 12, 2021 6:00 [id number] Feb 11, 2021 10:00 [id number] The Intake and Output Totals for the last 24 hours are: IntakeOutputNet [id number] Physical Exam by System: Constitutional: Well developed, [...] Last Updated: 13-Feb-2021 10:13 by Chuck Cook) [facility] Discharge Planning [id number] 0 02-12-2021 Discharge Planning Note2 Discharge Planning: Needs Prior to Discharge (ex. Home Care Orders, IV/O2 prescriptions) Follow up appointments Discharge Barriers (ex. Avoidable days, wait guardianship, pt refuse leave) None Planned Dispositionhome Discharge DestinationHome [facility] [place] of Choice Explainedyes preference Anticipated Discharge [id number] Discharge Planning 02/12/2021 0135 Discharge Plan Patient transferred from [place] [address] from PACU for diaphragm plication. Pt is A&O times 4. at 3 liters oxygen. Pt denies any biomedical specialist use at home. Pt emergency contact and service clerks supervisor Sahil Joe- son. Pt have valuable belongings [...] disposition: Home Potential Barriers: none ADOD: 02/12. park activities coordinator will continue to follow for discharge planning needs. Franny Gilliam RN, Transitional Policy Officer/TCC, pager [phone] Discharge note: 02/12/21 @ 1735: PT discharged home at this time. pts peripheral IV taken out prior to DC. pt given DC instructions. pt verbalized understanding. pt refused transport and walked downstairs with his son.---Erika miramontes RN Assessment: Discharge Planning Assessment [id number] Primary Contact Name and NumberAdam [phone](1) Stated Reason for Admissiondiaphragm plication(2) Arrived FromOR (2) Lives Withparent(s)(2) Living Arrangementshouse(2) Resource/Environmental Concernsnone(2) [facility] Services Anticipated at Transitionnone(2) Discharge Documentation: Discharge/Transfer Date/Nxkn65-Zry-4784 17:35 Discharge Modeambulatory Discharged Accompanied Byfamily member [...] - Adult v2 12-Feb-2021 01:[address] [facility] Discharge [id number] 021 Discharge Profile2 Discharge Orders: Anticipated Discharge Date: Anticipated Discharge [id number]-5072 DNAR: DNAR Status: none Call Provider If [...] hemidiaphragm plication Call to Schedule in2 weeks [id number] Hilario Borden [address] Phone [phone] Other Clinician Instructions: Other Instructions: Other Clinician [...] Appointments, Other Clinician Instructions, Gold Form - Channeler Runner Summary Last Updated: 12-Feb-2021 15:27 by Jesusita Stevenson ( (Resident)) Normal [facility] Laboratory - Chemistry and C hemistry - challengeon 02-12-2021 Anion gap [Moles/Vol] 15 mmol/L 10 - 20 BU-Sxvrmvu-T [employer] Work Phone: Calcium [Mass/Vol] 9.5 mg/dL 8.6 - 10.6 MG-Tino raysa-G [employer] [facility] 107 Work Phone: Chloride [Moles/Vol] 102 mmol/L 98 - 107 FF-Odlcwjw-R [facility] 107 Work Phone: CO2 [Moles/Vol] 24 mmol/L 21 - 32 MG-Surger y-G [place] [facility] 107 Work Phone: Creatinine [Mass/Vol] 0.98 mg/dL See Below AF-Ffobmbz-Z [place] [facility] 107 Work Phone: [phone] Comment on above: Reference Range: 0.5 0 - 1.30 Glucose [Mass/Vol] 133 mg/dL above high threshold 74 - 99 RO-Egbcphe-F [facility] Work Phone: [phone] Potassium [Moles/Vol] 4.3 mmol/L 3.5 - 5.3 HX-Kmeaevk-U [facility] Work Phone: [phone] Sodium [Moles/Vol] 137 mmol/L 136 - 145 MG-Tino raysa-G [facility] Work Phone: [phone] Urea nitrogen [Mass/Vol] 17 mg/dL 6 - 23 JW-Dukgxam-T [facility] Work Phone: [phone] Laboratory - Hematology and Cell countson 02-12-2021 Erythrocyte distribution width (RBC) [Ratio] 12.1 % See Below WB-Qegrpkf-P [facility] [place] [address] Work Phone: [phone] Comment on above: Reference Range: 11. 5 - 14.5 Hematocrit (Bld) [Volume fraction] 45.8 % See Below SG-Jbmavqj-J [facility] [place] [address] Work Phone: [phone] Comment on above: Reference Range: 41. 0 - 52.0 Hemoglobin (Bld) [Mass/Vol] 15.0 g/dL See Below RG-Hakpoce-M [facility] Work Phone: [phone] Comment on above: Reference Range: 13. 5 - 17.5 MCHC (RBC) [Mass/Vol] 32.8 g/dL See Below KF-Xnwrrrp-B [facility] [place] [address] Work Phone: [phone] Comment on above: Reference Range: 32. 0 - 36.0 MCV (RBC) [Entitic vol] 94 fL 80 - 100 AN-Cicwjrv-E [facility] Work Phone: [phone] Platelets (Bld) [#/Vol] 228 10*3/uL 150 - 450 WG-Ovwhnuu-S [facility] Work Phone: [phone] RBC (Bld) [#/Vol] 4.85 {x10E12/L} See Below MG -Surgery-G [address] Work Phone: Comment on above: Reference Range: 4.5 0 - 5.90 WBC (Bld) [#/Vol] 12.8 10*3/uL above high threshold 4.4 - 11.3 VA-Xohgtie-A [address] Work Phone: No Panel Informationon 02-12 >60 >60 PU-Judaiwk-U [address] Work Phone: Comment on above: CALCULATIONS OF LANRE MATED GFR ARE PERFORMED USING THE MDRD STUDY EQUATION FOR THE IDMS-TRACEABLE CREATININE METHODS. CLIN CHEM 2007;53:766-72 0.0 {/100_WBC} 0.0-0.0 MG-Surgery -G [address] Work Phone: Order Reconciliationon 02-12 [...] orally [address] [facility] Patient Profile - Adult v2on 02-12-2021 Patient Profile - Adult v2 Profile: Initial Info: How to be AddressedDel(1) Spoken Language PreferredEnglish (1) Stated Reason for Admissiondiaphragm plication Patient Belongingsremains with patient Patient Belongings Remaining with Patientcash/credit card; clothing Arrived FromOR Medications Brought to Hospitalno Are you currently using the Personal Electronic Health Record or [employer] (1) Wants Family/Rep Notified of Admissionyes, primary contact Notify PCPnotify PCP Informed of Patient Visiting Rightsyes General Health: Blood Avoidance/Restrictionsnone (1) Previous Transfusion Reactionno(2) Weight in kg109.8 kilogram(s)(3) Weight in buu657 pound(s) Weight Methodactual (measured) (3) Scale Typestanding [...] 1. Vital Signs 11-Feb-2021 12:[address] [facility] Radiologyon 02-12-2021 XR Chest Single view Normal PQ-Zowdauf-Z [address] Work Phone: XR Chest Single view Normal VX-Bzpfeor-E [address] Work Phone: XR Chest Single view Normal QX-Amagblm-L [address] Work Phone: TH CHEST 1 VIEWon 02-12-2021 TH CHEST 1 VIEW Patient Name: RIGO JEFFERSON STUDY: CHEST 1 VIEW; 02/12/2021 4:27 pm INDICATION: chest tube removal. COMPARISON: Prior 11:07 a.m. radiograph. ACCESSION NUMBER(S): [id number] ORDERING CLINICIAN: JESUSITA STEVENSON FINDINGS: Left basilar [...] signed by: МАРИНА MARCELO MD Normal [facility] TH CHEST 1 VIEW Patient Name: RIGO JEFFERSON STUDY: CHEST 1 VIEW; 02/12/2021 11:58 am INDICATION: chest tube wet seal. COMPARISON: 7:02 a.m. radiograph. ACCESSION NUMBER(S): [id number] ORDERING CLINICIAN: JESUSITA STEVENSON FINDINGS: Left basilar [...] signed by: МАРИНА MARCELO MD Normal [facility] TH CHEST 1 VIEW Patient Name: RIGO JEFFERSON STUDY: CHEST 1 VIEW; 02/12/2021 7:13 am INDICATION: POD 1 s/p diaphragm plication. COMPARISON: 02/11/2021. ACCESSION NUMBER(S): [id number] ORDERING CLINICIAN: SAW SALEEM FINDINGS: Left basilar [...] effusion. Electronically signed by: МАРИНА MARCELO MD [facility] No Panel Informationon 02-11 [place] [address] Work Phone: Operative Reports - [facility] [place] [address] Patient Name: RIGO JEFFERSON : 1960 Date of Service: 02/11/2021 Patient Location: [place] [address] Patient Type: I Surgeon: Chuck Cook MD Report Type: Operative Reports PREOPERATIVE DIAGNOSIS: Chronic respiratory failure, left diaphragm dysfunction. POSTOPERATIVE DIAGNOSIS: Chronic respiratory failure, left diaphragm dysfunction. OPERATION/PROCEDURE: Laparoscopic left diaphragm plication with removal of previous diaphragm pacing wires. SURGEON: Chuck Cook MD TICKET MACHINE OPERATOR(S): Saw Saleem MD. There was no available resident. ANESTHESIA: LOCATION: [facility]. CLINICAL NOTE: This is a [...] TT: 02/12/2021 12:44 PM EST DICTATION NUMBER: [id number] BRIE JOB NUMBER: [id number] CC: PT STATES NONE PCP Electronic Signatures: Chuck Cook) (Signed on 13-Feb-2021 10:15) Authored Unsigned, Draft (SYS GENERATED) (Entered on 12-Feb-2021 12:44) Entered Last Updated: 13-Feb-2021 10:15 by Chuck Cook) Normal [facility] Order Reconciliationon 02-11 Order Reconciliation Page 1 Admission Reconciliation Document Reconciliation Type: Admission from OR requested on behalf of Saw Saleem (Physician) done by Saw Saleem) Admission from OR - Reconciliation: 11-Feb-2021 18:31 by: Saw Saleem) Home MedicationsEnteredLast Dose TakenReconciled with current Order Reconciliation Comment/ Additional Information Kristina 24 Hour Allergy oral tablet 1 tab(s) orally once a [id number]-Asa-316111-Feb-2021 AM Reviewed and Held clarithromycin 250 mg oral tablet 250 milligram(s) orally once a day Clarithromycin Tablet (BIAXIN)DOSE = 250 mg Oral Every 24 Hoursclarithromycin 250 mg oral tablet continued as the inpatient order Clarithromycin diclofenac sodium 50 mg oral delayed release tablet 1 tab(s) orally 2 times a [id number]-[id number]-Bsk-0313 AM Reviewed and Held oxycodone-acetaminophen 5 mg-300 mg oral tablet 1 tab(s) orally 2 times a day [id number] AM Reviewed and Held Additional Current Orders [...] minute(s)Clinician Notes: Carlota-operative order ONLY Normal [facility] Patient Profile - Preop v2on 02-11-2021 Patient Profile - Preop v2 Profile: Initial Info: How to be AddressedDel(1) Spoken Language PreferredEnglish (1) Source of Informationpatient Are you currently using the Personal Electronic Health Record or [facility]ST[facility] (1) Are you interested in learning more about jaeyosvitalclip for the management of your healthnot at this time Stated Reason for AdmissionL pulling of wires/pulling lung down [facility] [phone] Patient Belongingspatient educated regarding responsibility for personal items Medications Brought to Hospitalno General Health: Weight in kg109.8 kilogram(s) Weight in wve928 pound(s) Weight Methodactual (measured) Scale Typestanding Height [...] HIGH RISK. Are there any cultural, spiritual, druze practices/values/needs that are important for us to [...] - Adult v2 12-Dec-2017 16:[address] [facility] Preop Checkliston 02-11-2021 Preop Checklist Preop Checklist: Preop Checklist: Arrival [id number]-Hds-1033 Arrival Time11:48 Procedure TypeL laparoscopic diaphragm plication Temperature C36.1 degrees C Temperature F96.9 degrees F Heart Rate70 beats per minute Respiratory Rate12 breath per minute Blood Pressure Slokspeh551 mm/Hg Blood Pressure Smqvknfue69 mm/Hg NPO Cmewxn43-Nsr-4626 00:00 ID Band Onyes Allergy Bandno known [...] 12:02 by Jany Ann (RN) Normal [facility] Radiologyon 02-11-2021 XR Chest Single view Please click on the link to view the study images Normal YM-Uqysnxy-G [address] Work Phone: [facility] Surgical Pathology Depar tmenton 02-11-2021 [facility] Surgical Pathology Department Name RIGO JEFFERSON Pathologist: JACINTO MURRIETA MD Date of Procedure: 02/11/2021 Date Received: 02/12/2021 Date Reported 02/19/2021 Submitting Physician: CHUCK COOK M.D. Location: [facility] Copy To/Referring/Attending: CHUCK COOK M.D. Other External [...] this case. Clinical History: Physician Contact Number: [phone] Fixative (A): Fresh Clinical Diagnosis History: disorders of diaphragm Specimens Submitted As: A: PACING WIRE Gross Description: Received in formalin, labeled with the patient's name and hospital number, are multiple wires with a piece of adipose tissue attached measuring 3.0 x 1.6 x 1.0 cm. A photograph is taken. The attached soft tissue is submitted entirely in one cassette. EXB exb/02/12/2021 [facility] Department of Pathology [address] [place] [address] [facility] Comment on above: Performed By: #### U [facility] ####[facility] Surgical Pathology [id number] [place] [id number] CORONAVIRUS 2019, SCREEN ASY MPTOMATICon 02-10-2021 SARS-CoV-2 (COVID-19) RNA BECCA+probe Ql (Unsp spec) Not detected Normal Not Detected [facility] Comment on above: Result Comment: . [...] patient management decisions. Fact sheet for providers: https://www.fda.gov/media/790570/download Fact sheet for patients: https://www.fda.gov/media/095427/download This test has received FDA Emergency Use Authorization (EUA) and has been verified by [facility] ([facility]). This test is only authorized for the duration of time that circumstances exist to justify the authorization of the emergency use of in vitro diagnostic tests for the detection of SARS-CoV-2 virus and/or diagnosis of COVID-19 infection under section 564(b)(1) of the Act, 21 U.S.C. 360bbb-3(b)(1), unless the authorization is terminated or revoked sooner. [facility] is certified under CLIA-88 as qualified to perform high complexity testing. Testing is performed in the [facility] laboratories located at [id number] [place] [address]. Performed By: #### C OVSC #### [facility] [id number] [place] [address] Covid 19 Resultson SARS-CoV-2 (COVID-19) RNA BECCA+probe [...] [facility] to see if any of your [...] or Naproxen (Aleve) can also be used. Jozt-njo-dzjhfoc cough and cold medicines can be used according to the instructions on the package. Some hebv-wse-ulzavqv medicines also contain acetaminophen. Make sure you [...] water are not available, use alcohol-based hand mucking machine operator. Avoid touching your eyes, nose, and [...] alem (more content not included)... Normal [facility] CORONAVIRUS 2019, SCREEN ASY MPTOMATICon 02-09-2021 Lab Specimen Source Nasal, Nasopharyngeal Normal [facility] Comment on above: Performed By: #### C OVSC #### [address] [place] [address] Coronavirus 2019 RNA by PCR, Screening Asymptomticon 02-09-2021 Coronavirus 2019 RNA by PCR, Screening Asymptomtic Not detected Normal See Below GW-Ikcxwmy-C [address] Work Phone: Comment on above: [...] make patient management decisions.Fact sheet for providers: https://www.fda.gov/media/261709/downloadFact sheet for patients: https://www.fda.gov/media/728020/downloadThis test has received FDA Emergency Use Authorization (EUA) and has been verified by [facility] ([facility]). This test is only authorized for the duration of time that circumstances exist to justify the authorization of the emergency use of in vitro diagnostic tests for the detection of SARS-CoV-2 virus and/or diagnosis of COVID-19 infection under section 564(b)(1) of the Act, 21 U.S.C. 360bbb-3(b)(1), unless the authorization is terminated or revoked sooner. [facility] is certified under CLIA-88 as qualified to perform high complexity testing. Testing is performed in the [facility] laboratories located at [address] [place] [address]. BASIC METABOLIC PANELon 05-2 Anion gap [Moles/Vol] 13 mmol/L Normal 10 - 20 [facility] Comment on above: Performed By: #### B MP ####[id number] [place] [address] Calcium [Mass/Vol] 9.7 mg/dL Normal 8.6 - 10.6 [facility] Comment on above: Performed By: #### B MP ####[id number] [place] [address] Chloride [Moles/Vol] 108 mmol/L High 98 - 107 [facility] Comment on above: Performed By: #### B MP ####[id number] [place] [address] Creatinine [Mass/Vol] 1.04 mg/dL Normal 0.50 - 1.30 [facility] Comment on above: Performed By: #### B MP ####[id number] [place] [address] GFR- AM. >60 Normal >60 [facility] Comment on above: Result Comment: CALC ULATIONS OF ESTIMATED GFR ARE PERFORMED USING THE MDRD STUDY EQUATION FOR THE IDMS-TRACEABLE CREATININE METHODS. CLIN CHEM 2007;53:766-72 Performed By: #### B MP ####[id number] [place] [address] GFR-NON AM. >60 Normal >60 [facility] Comment on above: Performed By: #### B MP ####[id number] [place] [address] Glucose [Mass/Vol] 91 mg/dL Normal 74 - 99 [facility] Comment on above: Performed By: #### B MP ####[id number] [place] [address] HCO3 (Bld) [Moles/Vol] 29 mmol/L Normal 21 - 32 [facility] Comment on above: Performed By: #### B MP ####[id number] [place] [address] Potassium [Moles/Vol] 4.6 mmol/L Normal 3.5 - 5.3 [facility] Comment on above: Performed By: #### B MP ####[id number] [place] [address] Sodium [Moles/Vol] 145 mmol/L Normal 136 - 145 [facility] Comment on above: Performed By: #### B MP ####[id number] [place] [address] Urea nitrogen [Mass/Vol] 13 mg/dL Normal 6 - 23 [facility] Comment on above: Performed By: #### B MP ####[id number] [place] [address] CBCon 01-27-2021 Erythrocyte distribution width (RBC) [Ratio] 12.2 % Normal 11.5 - 14.5 [facility] Comment on above: Performed By: #### C BC ####[id number] [place] [address] Hematocrit (Bld) [Volume fraction] 46.7 % Normal 41.0 - 52.0 [facility] Comment on above: Performed By: #### C BC ####[id number] [place] [address] Hemoglobin (Bld) [Mass/Vol] 15.1 g/dL Normal 13.5 - 17.5 [facility] Comment on above: Performed By: #### C BC ####[id number] [place] [address] MCHC (RBC) [Mass/Vol] 32.3 g/dL Normal 32.0 - 36.0 [facility] Comment on above: Performed By: #### C BC ####[id number] [place] [address] MCV (RBC) [Entitic vol] 96 fL Normal 80 - 100 [facility] Comment on above: Performed By: #### C BC ####[id number] [place] [address] NUCLEATED RBC 0.0 /100 WBC Normal 0.0-0.0 [facility] Comment on above: Performed By: #### C BC ####[id number] [place] [address] Platelets (Bld) [#/Vol] 209 10*3/uL Normal 150 - 450 [facility] Comment on above: Performed By: #### C BC ####[id number] [place] [address] RBC 4.85 x10E12/L Normal 4.50 - 5.90 [facility] Comment on above: Performed By: #### C BC ####[id number] [place] [address] WBC (Bld) [#/Vol] 7.2 10*3/uL Normal 4.4 - 11.3 [facility] Comment on above: Performed By: #### C BC ####[id number] [place] [address] Follow Up (General Surgery)o n 01-27-2021 Follow [...] Services - Lab To Draw (Blood Test); Due:[id number];Ordered; For:Diaphragm dysfunction, HTN (hypertension); Ordered By:Chandan Cool; Electrocardiogram EKG; Status:Hold For - Scheduling; Requested for:27Jan2021; Perform:[facility] [place] 1800; Due:27Apr2021;Ordered; For:Diaphragm [...] and 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 He was turning the device off 1-2 [...] MG Oral Tablet Vitals Vital Signs Recorded: [id number] 11:12AM Yedcpspgagw92.1 F Heart Rate77 Lojmgueu355 Mojonfnng24 Vltqyr196 lb BMI Fmwjfgsxtq69.64 kg/m2 BSA Calculated2.33 Tobacco Useb) No Physical [...] the r (more content not included)... Normal Corban Direct No Panel Informationon 01-27 http://[facility] [email or web address] 1:8080 [email or web address]?R etrieveTestByDateTime?Sherita frjXE=[id number]&Date=&Time=13%3a24%3a34%3a 00&TestType=ECG&Site=1&Out putType=PDF&Ext=PDF QD-Tphozlr-A [address] Work Phone: Normal sinus rhythm MG-Ramos rgery-G [address] Work Phone: Normal NG-Agrieqe-C [address] Work Phone: [phone] 1 ME-Fpwlxrn-T [address] Work Phone: [phone] 1 XD-Heeoqob-Z [address] Work Phone: 205 1 ZZ-Azmnbet-M [address] Work Phone: 147 1 FW-Gwteavp-O [address] Work Phone: 224 1 DS-Vubjagm-W [address] Work Phone: 11 1 NH-Wwcfksl-E [address] Work Phone: 69 1 VZ-Jqhpsnv-P [address] Work Phone: 26 1 KN-Xhnukqo-U [address] Work Phone: 40 1 FJ-Zcxjxbv-U [address] Work Phone: 421 1 GV-Qzawsom-I [address] Work Phone: 390 1 UT-Yuaolgw-X [address] Work Phone: 92 1 VO-Shvwfqa-G [address] Work Phone: 154 1 OS-Guzyqsg-V [address] Work Phone: 70 1 BE-Neyvkpv-D [address] Work Phone: Radiologyon 01-27-2021 XR Chest 2 Views Normal MG-Surge ry-G [address] Work Phone: TH CHEST 2 VIEW PA AND LATon 01-27-2021 TH CHEST 2 VIEW PA AND LAT Patient Name: RIGO JEFFERSON STUDY: TH CHEST 2 VIEW PA AND LAT; 01/27/2021 11:00 am INDICATION: chronic hypoventilation. COMPARISON: Chest radiograph 04/03/2019 ACCESSION NUMBER(S): [id number] ORDERING CLINICIAN: CHUCK COOK FINDINGS: Inspiratory and [...] signed by: ANGI CAICEDO MD Normal [facility] Tobacco Screening.on 021 Tobacco use status [facility] b) No RZ-Nhbsufm-N [address] Work Phone: Tobacco Screening. b) No MG-Tino raysa-G [address] Work Phone: Otheron 04-03-2019 XR Chest 2 views Interpreted by: ISAK04/03/19 14:06MRN: [id number] Name: RIGO JEFFERSON STUDY:CHEST 2 VIEW PA [...] Electronically signed by: ISAK 04/03/19 14:06 Normal VJ-Vfffozf-O [facility] [address] Work Phone: Vital Signs Date Time Vital Sign Value Performing Clinician Facility 04-12-2025 11:03-0400 Body height 182.9 cm Husam Muñoz MD Work Phone: [facility] 04-12-2025 11:03-0400 Body mass index (BMI) [Ratio] 32.41 kg/m2 Husam Muñoz MD Work Phone: [facility] 04-12-2025 11:03-0400 Body weight 108.41 kg Husam Muñoz MD Work Phone: [facility] 04-12-2025 11:03-0400 Diastolic blood pressure 80 mm[Hg] Husam Muñoz MD Work Phone: [facility] 04-12-2025 11:03-0400 Heart rate 82 /min Husam Muñoz MD Work Phone: [facility] 04-12-2025 11:03-0400 Respiratory rate 18 /min Husam Muñoz MD Work Phone: [facility] 04-12-2025 11:03-0400 SaO2% (BldA) [Mass fraction] 96 % Husam Muñoz MD Work Phone: [facility] 04-12-2025 11:03-0400 Systolic blood pressure 110 mm[Hg] Husam Muñoz MD Work Phone: [facility] 04-02-2025 11:52-0400 Body height 182.9 cm Nubia Peguero MD Work Phone: [facility] 04-02-2025 11:52-0400 Body mass index (BMI) [Ratio] 31.33 kg/m2 Nubia Peguero MD Work Phone: [facility] 04-02-2025 11:52-0400 Body weight 104.78 kg Nubia Peguero MD Work Phone: [facility] 03-26-2025 10:27-0400 Body height 182.9 cm Nikunj Carmona MD Work Phone: [facility] 03-26-2025 10:27-0400 Body mass index (BMI) [Ratio] 32.41 kg/m2 Nikunj Carmona MD Work Phone: [facility] 03-26-2025 10:27-0400 Body temperature 97.81 [degF] Nikunj Carmona MD Work Phone: [facility] 03-26-2025 10:27-0400 Body weight 108.41 kg Nikunj Carmona MD Work Phone: [facility] 03-26-2025 10:27-0400 Diastolic blood pressure 74 mm[Hg] Nikunj Carmona MD Work Phone: [facility] 03-26-2025 10:27-0400 Heart rate 78 /min Nikunj Carmona MD Work Phone: [facility] 03-26-2025 10:27-0400 Respiratory rate 18 /min Nikunj Carmona MD Work Phone: [facility] 03-26-2025 10:27-0400 SaO2% (BldA) [Mass fraction] 97 % Nikunj Carmona MD Work Phone: [facility] 03-26-2025 10:27-0400 Systolic blood pressure 146 mm[Hg] Nikunj Carmona MD Work Phone: [facility] 09-11-2024 10:23-0500 Body height 182.9 cm Husam Muñoz MD Work Phone: [facility] 09-11-2024 10:23-0500 Body mass index (BMI) [Ratio] 31.46 kg/m2 Husam Muñoz MD Work Phone: [facility] 09-11-2024 10:23-0500 Body weight 105.23 kg Husam Muñoz MD Work Phone: [facility] 09-11-2024 10:23-0500 Heart rate 80 /min Husam Muñoz MD Work Phone: [facility] 07-09-2024 10:24-0500 Body height 182.9 cm Mani Santoyo [employer] Work Phone: [facility] 07-09-2024 10:24-0500 Body mass index (BMI) [Ratio] 30.38 kg/m2 Mani Santoyo [employer] Work Phone: [facility] 07-09-2024 10:24-0500 Body temperature 97.11 [degF] Mani Santoyo [employer] Work Phone: [facility] 07-09-2024 10:24-0500 Body weight 101.61 kg Mani Santoyo [employer] Work Phone: [facility] 07-09-2024 10:24-0500 Diastolic blood pressure 70 mm[Hg] Mani Santoyo [employer] Work Phone: [facility] 07-09-2024 10:24-0500 Heart rate 81 /min Mani Santoyo [employer] Work Phone: [facility] 07-09-2024 10:24-0500 Respiratory rate 16 /min Mani Santoyo [employer] Work Phone: [facility] 07-09-2024 10:24-0500 SaO2% (BldA) [Mass fraction] 98 % Mani Santoyo [employer] Work Phone: [facility] 07-09-2024 10:24-0500 Systolic blood pressure 110 mm[Hg] Mani Santoyo [employer] Work Phone: [facility] 06-06-2024 15:30-0400 Body mass index (BMI) [Ratio] 29.43 kg/m2 Mani Santoyo [employer] Work Phone: [facility] 06-06-2024 15:30-0400 Body temperature 97.39 [degF] Mani Santoyo [employer] Work Phone: [facility] 06-06-2024 15:30-0400 Body weight 98.43 kg Mani Santoyo [employer] Work Phone: [facility] 06-06-2024 15:30-0400 Diastolic blood pressure 78 mm[Hg] Mani Santoyo [employer] Work Phone: [facility] 06-06-2024 15:30-0400 Heart rate 73 /min Mani Santoyo [employer] Work Phone: [facility] 06-06-2024 15:30-0400 Respiratory rate 16 /min Mani Santoyo [employer] Work Phone: [facility] 06-06-2024 15:30-0400 SaO2% (BldA) [Mass fraction] 96 % Mani Santoyo [employer] Work Phone: [facility] 06-06-2024 15:30-0400 Systolic blood pressure 122 mm[Hg] Mani Santoyo [employer] Work Phone: [facility] 05-03-2024 11:08-0400 Body height 182.9 cm Mani Santoyo [employer] Work Phone: [facility] 05-03-2024 11:08-0400 Body mass index (BMI) [Ratio] 28.89 kg/m2 Mani Santoyo [employer] Work Phone: [facility] 05-03-2024 11:08-0400 Body temperature 98.2 [degF] Mani Santoyo [employer] Work Phone: [facility] 05-03-2024 11:08-0400 Body weight 96.62 kg Mani Santoyo [employer] Work Phone: [facility] 05-03-2024 11:08-0400 Diastolic blood pressure 74 mm[Hg] Mani Santoyo [employer] Work Phone: [facility] Comment on above: 134/80 RT ARM LG CUFF 05-03-2024 11:08-0400 Heart rate 102 /min Mani Martinezk [employer] Work Phone: [facility] Comment on above: 95% O2 05-03-2024 11:08-0400 Systolic blood pressure 164 mm[Hg] Mani Waltonpatrick [employer]ER Work Phone: [facility] Comment on above: 134/80 RT ARM LG CUFF 02-12-2021 14:10-0400 SaO2% (BldA) [Mass fraction] 95 % No Pcp Required [facility] 02-12-2021 14:00-0400 Body temperature 97.16 [degF] No Pcp Required [facility] 02-12-2021 14:00-0400 Diastolic blood pressure 83 mm[Hg] No Pcp Required [facility] 02-12-2021 14:00-0400 Heart rate 81 /min No Pcp Required [facility] 02-12-2021 14:00-0400 Respiratory rate 18 /min No Pcp Required [facility] 02-12-2021 14:00-0400 Systolic blood pressure 131 mm[Hg] No Pcp Required [facility] 02-12-2021 03:31-0400 Body height 182.8 cm No Pcp Required [facility] 02-12-2021 03:31-0400 Body weight 109.8 kg No Pcp Required [facility] 01-27-2021 11:12-0400 Body mass index (BMI) [Ratio] 33.64 kg/m2 Chuck Cook MD Work Phone: IW-Hfq[address]lh-[address] Work Phone: 01-27-2021 11:12-0400 Body surface area Derived from formula 2.33 m2 Chuck Cook MD Work Phone: EW-Ayrlqnu-[address] Work Phone: 01-27-2021 11:12-0400 Body temperature 96.1 [degF] Chuck Cook MD Work Phone: IS-Ndnhpfb-[address] Work Phone: 01-27-2021 11:12-0400 Body weight 112.49 kg Chuck Cook MD Work Phone: NO-Ygodfvi-[address] Work Phone: 01-27-2021 11:12-0400 Diastolic blood pressure 85 mm[Hg] Chuck Cook MD Work Phone: IB-Fdntvbl-Q[address] Work Phone: 01-27-2021 11:12-0400 Heart rate 77 /min Chuck Cook MD Work Phone: KV-Oeggyeu-[address] Work Phone: 01-27-2021 11:12-0400 Systolic blood pressure 157 mm[Hg] Chuck Cook MD Work Phone: OZ-Riabvbl-Wlq[address] Work Phone: 04-03-2019 15:37-0400 BMI (Body Mass Index) 30.11 kg/m2 Chandan Travon TX-Jvxjmse-[address]es[address]99 Work Phone: 04-03-2019 15:37-0400 Body Temperature 97.9 [degF] Chandan Amarillo CE-Ejsmczn-Xuuq [address]99 Work Phone: 04-03-2019 15:37-0400 Body weight 100.7 kg Chandan Travon SL-Ebzlfoz-Bwjom ll [address]99 Work Phone: 04-03-2019 15:37-0400 BP Diastolic 74 mm[Hg] Chandan Travon BJ-Ivteqmf-Zfiik ll 2099 Work Phone: 04-03-2019 15:37-0400 BP Systolic 121 mm[Hg] Chandan Amarillo CD-Zrtttrs-Tzjkw ll 2099 Work Phone: 04-03-2019 15:37-0400 BSA (Body Surface Area) 2.23 m2 Chandan Amarillo KE-Vopvzkq-Nvyopei 2099 Work Phone: 04-03-2019 15:37-0400 Height 182.88 cm Chandan Travon CD-Acpzvrb-Nhtpp ll 2099 Work Phone: 04-03-2019 15:37-0400 Pulse (Heart Rate) 58 /min Chandan Cool VK-Edfislj-Ts lwell 2099 Work Phone: Encounters Encounter Date Encounter Type Care Provider Facility Start: 04-12-2025 End: 04-12-2025 Bamboo flowsheet Hus[facility] Start: 04-12-2025 End: 04-12-2025 Bamboo flowsheet Husam Muñoz MD Work Phone: [facility] Start: 04-12-2025 End: 04-12-2025 Office outpatient visit 25 minutes Husam Muñoz MD [facility] Comment on above: Hypopituitarism (HCC ) (Primary Dx); Decreased libido; Encounter for dietary consultation; Class 1 obesity due to excess calories without serious comorbidity with body mass index (BMI) of 32.0 to 32.9 in adult Start: 04-12-2025 End: 04-15-2025 ambulatory HUSAM MUÑOZ Not Available Comment on above: Hypopituitarism (HCC ) Start: 04-04-2025 End: 04-04-2025 Patient encounter procedure Janine Car DO Work Phone: Orthopaedics Comment on above: Primary osteoarthrit is of left hip (Primary Dx) Start: 04-04-2025 End: 04-04-2025 ambulatory JANINE D CAR Facility:[facility] Start: 04-02-2025 End: 04-02-2025 Refill Nikunj Carmona MD Work Phone: [facility] Comment on above: Class 1 obesity due to excess calories with serious comorbidity and body mass index (BMI) of 33.0 to 33.9 in adult Primary osteoarthrit is of left hip (Primary Dx) Pain [R52] Start: 03-26-2025 End: 03-26-2025 Bamboo flowsheet Nikunj Carmona MD Work Phone: [facility] Start: 03-26-2025 End: 03-26-2025 Bamboo flowsheet Nikunj Carmona MD Work Phone: [facility] Start: 03-26-2025 End: 03-26-2025 Office outpatient visit 25 minutes Nikunj Carmona MD Work Phone: [facility] Comment on above: Primary hypertension (Primary Dx); Chronic obstructive pulmonary disease, unspecified COPD type (HCC); Primary osteoarthritis of left hip; Abnormal CT scan; Degenerative lumbar spinal stenosis; Class 1 obesity due to excess calories with serious comorbidity and body mass index (BMI) of 33.0 to 33.9 in adult Start: 03-26-2025 End: 03-26-2025 ambulatory NIKUNJ CARMOAN Not Available Start: 03-01-2025 End: 03-01-2025 Clinisync Result Encounter Generic External Data Provider [facility] External Department Unsolicited Start: 03-01-2025 End: 03-01-2025 Clinisync Result Encounter Generic External Data Provider [facility] External Department Unsolicited Start: 02-26-2025 End: 02-26-2025 Refill Nikunj Carmona MD Work Phone: [facility] Comment on above: Class 1 obesity due to excess calories with serious comorbidity and body mass index (BMI) of 33.0 to 33.9 in adult Start: 01-25-2025 End: 01-25-2025 ambulatory NIKUNJ CARMONA Not Available Start: 01-14-2025 End: 01-14-2025 ambulatory Jonas Carrasquillo MD Facility: [facility] Start: 01-11-2025 End: 01-11-2025 Clinisync Result Encounter Generic External Data Provider [facility] External Department Unsolicited Start: 01-11-2025 End: 01-11-2025 Clinisync Result Encounter Generic External Data Provider [facility] External Department Unsolicited Start: 01-11-2025 End: 01-11-2025 ambulatory [facility] Start: 12-24-2024 End: 12-24-2024 ambulatory Jonas Carrasquillo MD Facility: [facility] Start: 09-11-2024 End: 09-14-2024 Telephone encounter Husam Muñoz MD Work Phone: [facility] Comment on above: Results Start: 09-11-2024 End: 09-11-2024 ambulatory HUSAM MUÑOZ Not Available Start: 09-11-2024 End: 09-11-2024 Office outpatient visit 25 minutes Husam Muñoz MD Work Phone[facility] Comment on above: Hypopituitarism (CMS /HCC) [...] 08-09-2024 End: 08-16-2024 Orders Only Mani Santoyo [employer] Work Phone: [facility] Comment on above: Chronic allergic rhi nitis Rosacea, unspecified Start: 08-07-2024 End: 08-07-2024 Refill Lianet Talamantes MA [facility] Comment on above: Chronic allergic rhi nitis Start: 07-16-2024 End: 07-16-2024 Refill Mani Santoyo [employer] Work Phone: [facility] Comment on above: Chronic allergic rhi nitis Start: 07-11-2024 End: 07-11-2024 ambulatory [facility] Start: 07-09-2024 End: 07-09-2024 Bamboo flowsheet Mani Santoyo [employer] Work Phone: [facility] Start: 07-09-2024 End: 07-09-2024 Bamboo flowsheet Mani Santoyo [employer] Work Phone: [facility] Start: 07-09-2024 End: 07-09-2024 Office outpatient visit 10 minutes Mani Santoyo [employer] Work Phone: [facility] Comment on above: Class 1 obesity due to excess calories without serious comorbidity with body mass index (BMI) of 31.0 to 31.9 in adult (Primary Dx) Start: 07-09-2024 End: 07-09-2024 ambulatory MANI SANTOYO Not Available Start: 06-06-2024 End: 06-06-2024 Office outpatient visit 15 minutes Mani Santoyo [employer] Work Phone: [facility] Comment on above: Chronic obstructive pulmonary disease, unspecified COPD type (CMS/HCC) (Primary Dx); Paralyzed hemidiaphragm; Class 1 obesity due to excess calories without serious comorbidity with body mass index (BMI) of 31.0 to 31.9 in adult Start: 06-06-2024 End: 06-06-2024 ambulatory MANI SANTOYO Not Available Start: 05-31-2024 End: 05-31-2024 Subsequent hospital visit by physician [facility] Work Phone: [facility] Comment on above: Cervical vertebral f usion [M43.22] Start: 05-31-2024 End: 05-31-2024 ambulatory JUAN GREEN Facility:[facility] Start: 05-31-2024 End: 05-31-2024 Patient encounter procedure Juan Green MD Work Phone: [facility] [place] Comment on above: Cervical vertebral f usion (Primary Dx); Spinal stenosis of cervical region Start: 05-21-2024 End: 05-21-2024 Orders Only Mani Santoyo [employer] Work Phone: [facility] Comment on above: Class 1 obesity due to excess calories without serious comorbidity with body mass index (BMI) of 31.0 to 31.9 in adult (Primary Dx) Start: 05-15-2024 End: 05-15-2024 Refill Mani Santoyo [employer] Work Phone: [facility] Start: 05-14-2024 End: 05-14-2024 ambulatory [facility] Start: 05-03-2024 End: 05-03-2024 Bamboo flowsheet Mani Santoyo [employer] Work Phone: [facility] Start: 05-03-2024 End: 05-03-2024 Bamboo flowsheet Main Santoyo [employer] Work Phone: [facility] Start: 05-03-2024 End: 05-03-2024 Office outpatient visit 25 minutes Mani Jimeneztrick [employer]ER Work Phone: [facility] Comment on [...] Start: 08-20-2023 Patient encounter procedure Mani Santoyo [employer] Work Phone: [facility] Start: 02-17-2023 ambulatory SHAIKH Mina MALIK Facilit y:[facility] Start: 12-09-2022 End: 12-10-2022 ambulatory SHAIKH Mina MALIK Facility:[facility] Start: 12-08-2022 End: 12-09-2022 ambulatory COREAS [...] related to original px No PCP None EO-[address] Work Phone: Start: 02-20-2021 Chart Update No PCP None MG-Surgery -[address] Work Phone: Start: 02-11-2021 End: 02-12-2021 Evaluation and management of inpatient Chuck Cook [facility] [place] Rm [id number] 01 Start: 01-27-2021 Chart Update Chuck Cook MD Work Phone: IM-Mmpkzuc-[address] Work Phone: Start: 04-03-2019 Patient encounter procedure Chandan Amarillo FR-Rquclir-[address] Work Phone: Start: 01-12-2018 Patient encounter procedure Chandan Amarillo NI-Djlhgou-[address] Work Phone: Start: 11-28-2017 Patient encounter procedure Chandan Amarillo MB-Xdmffmi-[address] Work Phone: Start: 11-28-2017 Patient encounter procedure Chandan Travon PK-Xmxypmq-[address] Work Phone: Procedures Date Procedure Procedure Detail Performing Clinician Start: 04-04-2025 End: 04-04-2025 Arthrocentesis aspir&/inj major jt/bursa w/us Janine Car DO Work Phone: Start: 04-02-2025 Radex hip unilateral with pelvis 2-3 views Nubia Peguero MD Work Phone: Start: 03-01-2025 ALL [...] spine cervical 4 or 5 views Juan Green MD Work Phone: Start: 11-01-2023 Colonoscopy Mani rm NP Work Phone: Start: 03-30-2019 Xray Chest 2 View PA + Lateral Chandan Amarillo Cholecystectomy Chandan Travon History of Gallbladd er Surgery Chandan Amarillo History of Knee Surgery Left Chandan Amarillo History of Neck Surgery Tammy Travon Tonsillectomy Chandan Travon Plan of Treatment Date Care Activity Detail Author Start: 2034 RSV Vaccine (1 - 1-dose 75+ series) RSV Vaccine (1 - 1-dose 75+ series) [facility] Start: 11-01-2033 Screening for malignant neoplasm of colon [facility] Start: 03-05-2030 Prostate specific antigen measurement Prostate Cancer Screening Discussion [facility] Start: 01-25-2026 Medicare Annual Wellness (AWV) Medicare Annual Wellness (AWV) [facility] Start: 08-12-2025 End: 08-12-2025 Patient encounter procedure 08/12/2025 10:20 AM EST [facility] Visit [facility] [address] [place] [phone] Husam Muñoz MD [address] [place] [address] [facility] [place] [facility] Start: 06-28-2025 End: 06-28-2025 Patient encounter procedure 06/28/2025 10:45 AM EDT [facility] [address] [place] [address] Nikunj Carmona MD [address] [place] [address] [facility] Start: 05-28-2025 End: 05-28-2025 Patient encounter procedure 05/28/2025 4:20 PM EDT Office Visit [facility] [address] [facility] [place] [address] [place] [address] [place] [address] Spinal Stenosis Neurosurgery Comment on above: Spinal Stenosis Start: 05-06-2025 Influenza vaccination [facility] Start: 04-12-2025 End: 04-12-2026 Hemoglobin [Mass/volume] in Blood Hemoglobin Lab Routine Hypopituitarism (HCC) Expected: 04/12/2025 (Approximate), Expires: 04/12/2026 [facility] Comment on above: Expected: 04/12/2025 (Approximate), Expi res: 04/12/2026 Start: 04-12-2025 End: 04-12-2026 Prostate specific Ag [Mass/volume] in Serum or Plasma PSA Lab Routine Hypopituitarism (HCC) Expected: 04/12/2025 (Approximate), Expires: 04/12/2026 [facility] Work Phone: Comment on above: Expected: 04/12/2025 (Approximate), Expi res: 04/12/2026 Start: 04-12-2025 End: 04-12-2026 Testosterone [Mass/volume] in Serum or Plasma Testosterone Lab Routine Hypopituitarism (HCC) Expected: 04/12/2025 (Approximate), Expires: 04/12/2026 [facility] Comment on above: Expected: 04/12/2025 (Approximate), Expi res: 04/12/2026 Start: 04-12-2025 End: 04-12-2025 Patient encounter procedure [facility] Comment on above: Arrived Start: 04-04-2025 End: 04-04-2025 Patient encounter procedure 04/04/2025 7:30 AM EDT Office Visit Orthopaedics [address] [place] [address] Janine Car, DO [address] [place] [address] LEFT HIP INJECTION PER DR. PEGUERO Orthopaedics Comment on above: LEFT HIP INJECTION PER DR. PEGUERO Start: 03-26-2025 End: 03-26-2025 Patient encounter procedure 03/26/2025 10:15 AM EDT Office Visit [facility] [address] [place] [address] Nikunj Carmona MD [address] [place] [phone] Arrived [facility] Comment on above: Arrived Start: 03-19-2025 End: 03-19-2025 Patient encounter procedure [facility] Start: 01-25-2025 End: 01-25-2025 Patient encounter procedure 01/25/2025 10:30 AM EDT Office Visit [facility] [address] [place] [address] Nikunj Carmona MD [address] [place] [phone] [facility] Start: 10-30-2024 End: 10-30-2024 Patient encounter procedure 10/30/2024 8:30 AM EST Office Visit [facility] [address] [place] [phone] Mani Santoyo NP [address] [facility] [place] [address] [facility] Start: 09-11-2024 End: 09-11-2025 Hemoglobin [Mass/volume] in Blood Hemoglobin Lab Routine Hypopituitarism ([facility]) Expected: 09/11/2024 (Approximate), Expires: 09/11/2025 [facility] Comment on above: Expected: 09/11/2024 (Approximate), Expi res: 09/11/2025 Start: 09-11-2024 End: 09-11-2025 Prostate specific Ag [Mass/volume] in Serum or Plasma PSA Lab Routine Hypopituitarism ([facility]) Expected: 09/11/2024 (Approximate), Expires: 09/11/2025 [facility] Work Phone: Comment on above: Expected: 09/11/2024 (Approximate), Expi res: 09/11/2025 Start: 09-11-2024 End: 09-11-2025 Testosterone [Mass/volume] in Serum or Plasma Testosterone Lab Routine Hypopituitarism ([facility]) Expected: 09/11/2024 (Approximate), Expires: 09/11/2025 [facility] Comment on above: Expected: 09/11/2024 (Approximate), Expi res: 09/11/2025 Start: 09-11-2024 End: 09-11-2024 Patient encounter procedure 09/11/2024 10:20 AM EST Office Visit [facility] [address] [place] [phone] Husam Muñoz MD [address] [place] [address] [facility] Start: 09-05-2024 Advance Directive Discussion Advance Directive Discussion [facility] Start: 09-05-2024 Medicare Advantage Annual Wellness Visit Medicare Advantage Annual Wellness Visit [facility] Start: 08-18-2024 Medicare Annual Wellness (AWV) Medicare Annual Wellness (AWV) [facility] Start: 08-16-2024 End: 08-16-2024 Patient encounter procedure 08/16/2024 8:30 AM EST Office Visit [facility] [address] [place] [address] Mani Santoyo, SOCK [employer]ER [address] [place] [address] [facility] Start: 08-06-2024 End: 08-06-2024 Patient encounter procedure 08/06/2024 10:00 AM EST Office Visit [facility] [address] [place] [address] Mani Santoyo, SOCK DRIER [address] [place] [address] [facility] Start: 07-26-2024 End: 07-26-2024 Patient encounter procedure 07/26/2024 10:30 AM EST Office Visit [facility] [address] [place] [address] Mani Santoyo, [employer] [address] [place] [address] [facility] Start: 07-09-2024 End: 07-09-2024 Patient encounter procedure [facility] Comment on above: Arrived Start: 05-06-2024 Covid-19 Vaccine ( season) Covid-19 Vaccine ( season) [facility] Start: 05-06-2024 Influenza vaccination Influenza Vaccine (#1) [facility] Start: 05-03-2024 End: 05-03-2025 CBC W Auto Differential panel - Blood CBC and differential Lab Routine Primary hypertension (CMS/HCC) Class 1 obesity due to excess calories without serious comorbidity with body mass index (BMI) of 31.0 to 31.9 in adult Expected: 05/03/2024 (Approximate), Expires: 05/03/2025 [facility] Comment on above: Expected: 05/03/2024 (Approximate), Expi res: 05/03/2025 Start: 05-03-2024 End: 05-03-2025 Comprehensive metabolic 2000 panel - Serum or Plasma Comprehensive metabolic panel Lab Routine Primary hypertension (CMS/HCC) Class 1 obesity due to excess calories without serious comorbidity with body mass index (BMI) of 31.0 to 31.9 in adult Expected: 05/03/2024 (Approximate), Expires: 05/03/2025 [facility] Comment on above: Expected: 05/03/2024 (Approximate), Expi res: 05/03/2025 Start: 05-03-2024 End: 05-03-2025 Microalbumin/Creatinine panel in random Urine Microalbumin / creatinine urine ratio Lab Routine Primary hypertension (CMS/HCC) Expected: 05/03/2024 (Approximate), Expires: 05/03/2025 [facility] Work Phone: Comment on above: Expected: 05/03/2024 (Approximate), Expi res: 05/03/2025 Start: 05-03-2024 End: 05-03-2024 Patient encounter procedure 05/03/2024 11:00 AM EDT Office Visit [facility] [address] [place] [address] Mani Santoyo NP [address] [place] [address] Chronic obstructive pulmonary disease, unspecified COPD type (CMS/HCC) (Primary Dx); Primary hypertension (CMS/HCC); Class 1 obesity due to excess calories without serious comorbidity with body mass index (BMI) of 31.0 to 31.9 in adult; Hyperlipidemia, unspecified hyperlipidemia type (CMS/HCC) [facility] Comment on above: Chronic obstructive pulmonary disease, u nspecified COPD type (CMS/HCC) (Primary Dx); Primary hypertension (CMS/HCC); Class 1 obesity due to excess calories without serious comorbidity with body mass index (BMI) of 31.0 to 31.9 in adult; Hyperlipidemia, unspecified hyperlipidemia type (CMS/HCC) Start: 2024 Advance Directive Discussion Advance Directive Discussion [facility] Start: 2024 Pneumococcal Vaccine: 65+ (1 of 1 - PCV) Pneumococcal Vaccine: 65+ (1 of 1 - PCV) [facility] Start: 02-13-2024 Diabetes Screening Diabetes Screening [facility] Start: 02-11-2021 End: 02-12-2022 Ondansetron Injectable 4 mg IntraVenous Push Every 6 Hours PRN ; (ZOFRAN)DOSE = 4 mg IntraVenous Push Every 4 Hours, PRN Nausea & Vomiting Start: 11-Feb-2021 End: 11-Feb-2022 Ordered: 11-Feb-[address] [facility] Start: 2014 Prostate specific antigen measurement Prostate Cancer Screening Discussion [facility] Start: 2009 Pneumococcal Vaccine: 50+ (1 of 1 - PCV) Pneumococcal Vaccine: 50+ (1 of 1 - PCV) [facility] Start: 2009 Shingrix Vaccine (1 of 2) Shingrix Vaccine (1 of 2) [facility] Start: 2004 Screening for malignant neoplasm of colon [facility] Start: 1994 Lipid panel Lipid Screening [facility] Start: 1978 Pneumococcal Vaccine: 65+ Years (1 of 2 - PCV) Pneumococcal Vaccine: 65+ Years (1 of 2 - PCV) [facility] Start: 1978 Urine microalbumin profile DTaP,Tdap,Td Vaccine (1 - Tdap) [facility] Start: 1977 Anxiety Screening Anxiety Screening [facility] Start: 1977 Depression Screening Depression Screening [facility] Start: 1977 Hepatitis C screening Hepatitis C Screening [facility] Start: 1977 HIV screening HIV Screening [facility] Start: 1965 Pneumococcal Vaccine: 65+ Years (1 of 2 - PCV) Pneumococcal Vaccine: 65+ Years (1 of 2 - PCV) [facility] Start: 1959 Screening for malignant neoplasm of colon [facility] End: 06-30-2025 MR Cervical spine WO contrast MRI CERVICAL SPINE WO IVCON Radiology Routine Spinal stenosis of cervical region 1 Occurrences starting 05/31/2024 until 06/30/2025 [facility] Comment on above: 1 Occurrences starting 05/31/2024 until 06/30/2025 End: 06-30-2025 XR CERV OTHER 4V AP/LAT/FLX/EXT XR CERV OTHER 4V AP/LAT/FLX/EXT Radiology Routine Cervical vertebral fusion 1 Occurrences starting 05/31/2024 until 06/30/2025 [facility] Work Phone: Comment on above: 1 Occurrences starting 05/31/2024 until 06/30/2025 XR CERV OTHER 4V AP/LAT/FLX/EXT XR CERV OTHER 4V AP/LAT/FLX/EXT Radiology Routine Cervical vertebral fusion 05/31/2024 2:54 PM EDT [facility] End: 05-24-2025 XR Lumbar spine Views W flexion and W extension XR LUMBAR MOTION 4V AP/LAT/ FLEX/EXT Radiology Routine Spinal stenosis of lumbar region with neurogenic claudication 1 Occurrences starting 04/24/2024 until 05/24/2025 [facility] Work Phone: Comment on above: 1 Occurrences starting 04/24/2024 until 05/24/2025 End: 04-27-2026 XR Pelvis and Hip - left AP and Lateral frog XR HIP GENERAL 3V PELV/AP/LAT LEFT Radiology Routine Primary osteoarthritis of left hip 1 Occurrences starting 03/28/2025 until 04/27/2026 [facility] Work Phone: Comment on above: 1 Occurrences starting 03/28/2025 until 04/27/2026 Payers Date Payer Category Payer Medicare [id number] 2022 Medicare (Managed Care) [employer] [id number] 2022 Private Health Insurance [facility] [id number] 2020 Unknown [id number] 2018 Unknown 1959 Medicare [id number] 1959 Unknown [id number] 2.16.840.1.234135.3.579.2. 593 1959 Unknown [id number] 2.16.840.1.757484.3.579.2. 59 1959 Unknown [id number] 2.16.840.1.823165.3.579.2. 593 1959 Unknown [id number] 2.16.840.1.661706.3.579.2. 593 1959 Unknown [id number] 2.16.840.1.148401.3.579.2. 593 1959 Unknown [id number] 2.16.840.1.674309.3.579.2. 593 1959 Unknown [id number] 2.16.840.1.176557.3.579.2. 593 1959 Unknown [id number] 2.16.840.1.195103.3.579.2. 59 1959 Unknown [id number] 2.16.840.1.843647.3.579.2. 593 1959 Unknown [id number] 2.16.840.1.138230.3.579.2. 59 1959 Unknown [id number] 2.16.840.1.486741.3.579.2. 196 1959 Unknown [id number] 2.16.840.1.151731.3.579.2. 196 1959 Unknown [id number] 2.16.840.1.103460.3.579.2. 1259 1959 Unknown [id number] 2.16.840.1.200102.3.579.2. 125 1959 Unknown [id number] 2.16.840.1.427223.3.579.2. 1258 1959 Unknown [id number] 2.16.840.1.563135.3.579.2. 9 1959 Unknown [id number] 2.16.840.1.849529.3.579.2. 1258 1959 Unknown [id number] 2.16.840.1.045554.3.579.2. 1259 1959 Unknown [id number] 2.16.840.1.560483.3.579.2. 1259 Social History Date Type Detail Facility Start: 05-31-2024 End: 06-05-2024 Former smoker Former smoker [facility] Tobacco smoking consumption unknown [facility] Start: 1960 Sex assigned at Not on file [facility] Start: 05-31-2024 End: 06-05-2024 Gender identity Not [...] [facility] NEGATED: Highlighted row - - [address] Work Phone: Functional Status Date Assessment Result Facility Functional observable [facility] NEGATED: Highlighted row Functional performance Functional status health issues are not documented Disease [address] Work Phone: Mental Status Date Assessment Result Facility 02-12-2021 Cognitive functi ons [id number] [facility] NEGATED: Highlighted row Cognitive function [Interpretation] Cognitive status health issues are not documented Disease [address] Work Phone: Clinical Notes 02-11-2021 to 04-12-2025 Husam Muñoz MD - 04/12/2025 11:10 AM Janine Meyer DO - 04/04/2025 7:35 AM Nubia Mcdonald MD - 04/02/2025 12:00 PM Crystal Cook RT(R) - 04/02/2025 11:30 AM EDT<item> Note Date & Type Note Facility 04-12-2025 History of Present illness Narrative Rigo Jefferson is a 65 y.o. male No ref. provider found presents with chief complaint of Testicular Hypofunction and Follow-up (LAB) HPI: Interim history: 04/2025. Followup visit: 04/12/2025. he is testosterone cypionate 100 mg 1/2 ml [id number], testosterone 296 (264-916), hemoglobin 17.4, PSA 1.23 Interim history: 09/2024. Followup visit: 09/11/2024. he is testosterone cypionate 100 mg 1/2 ml [id number], testosterone 183 (264-916), hemoglobin 17.8, PSA 1.02. Interim history: 03/2024. Followup visit: . he is testosterone cypionate 100 mg 1/2 ml [id number], testosterone 537 (264-916), hemoglobin not done, PSA [...] PSA. HPI: 08/2023 New patient sent from [facility] for hypogonadism, low testosterone. I have the other lab with LH 11.1, FSH 4.5, prolactin normal 9.9. Ultrasound of testicle within normal limits. He denies history of clots. No prostate problem. No coronary artery disease or CVA SUBJECTIVE: MEDICATIONS: Current Outpatient Medications Medication Instructions albuterol 1.25 mg, Every 6 hours PRN atenolol (TENORMIN) 25 mg, Daily atorvastatin (LIPITOR) 20 mg, Oral, Daily clarithromycin (BIAXIN) 250 mg, Oral, Daily methocarbamol (ROBAXIN) 750 mg, 4 times daily montelukast (SINGULAIR) 10 mg, Oral, Daily oxyCODONE-acetaminophen (Percocet) 5-325 MG tablet 1 tablet, Every 6 hours PRN phentermine 37.5 mg, Oral, Daily before breakfast testosterone cypionate (DEPO-TESTOSTERONE) 150 mg, Intramuscular, Every 14 days ALLERGIES: No Known Allergies Past Medical History: Diagnosis Date Arthritis Atrial fibrillation (HCC) Patient denies A. Fib Chronic pain syndrome Decreased libido Environmental allergies GERD (gastroesophageal reflux disease) History of migraine headaches Hyperlipidemia Hypopituitarism (HCC) Vitamin D deficiency Past Surgical History: Procedure Laterality Date CARPAL TUNNEL RELEASE Right CHOLECYSTECTOMY KNEE SURGERY Left Arthroscopy LUNG SURGERY Left 2014 Left lung not functional NECK SURGERY REVIEW OF SYMPTOMS: 14 POINT OF SYSTEM REVIEWED AND NEGATIVE OBJECTIVE: Visit Vitals BP 110/80 Pulse 82 Resp 18 Ht 6' Wt 239 lb SpO2 96% BMI 32.41 kg/m Smoking Status Former BSA 2.34 m Physical Exam Constitutional: Appearance: Normal appearance. [...] and all orders for this visit: Hypopituitarism (HCC) - PSA; Future - Hemoglobin; Future - Testosterone; Future - testosterone cypionate (Depo-Testosterone) 200 MG/ML injection; Inject 0.75 mL (150 mg) into the shoulder, thigh, or buttocks every 14 (fourteen) days Hemoglobin in the high side, testosterone in good medium normal range, he wants his level to keep it up, so we have agreement if he donate blood once a month then I can increase the dose to 150 mg 0.75 every 2 weeks, he agree on this decision and we will see him in 4 months and check lab again and adjust. Decreased libido Encounter for dietary consultation Class 1 obesity due to excess calories without serious comorbidity with body mass index (BMI) of 32.0 to 32.9 in adult Diet and exercise reviewed with the patient Follow up in about 4 months (around 08/12/2025). documented in this encounter [facility] 04-04-2025 Note HNO ID: [id number] Author: JANINE CAR, DO Service: ? Author Type: Physician Type: Progress Notes Filed: 04/04/2025 07:36 Note Text: Patient presents for a left hip injection. Large Joint Arthro/Inj: L hip joint 04/04/2025 [...] these instructions. Informed Consent Consent Obtained: Verbal [place] Protocol A moment to CARE was completed. [...] the bedside nurse for hospitalized patients) applicable. (M16.12) Primary osteoarthritis of left hip (primary encounter diagnosis) Janine Car DO 04/04/2025 [facility] 04-04-2025 History of Present illness Narrative Associated Order(s): Large Joint Arthro/Inj: L hip joint Post-Procedure Diagnose(s): Primary osteoarthritis of left hip Patient presents for a left hip injection. Large Joint Arthro/Inj: L hip joint 04/04/2025 [...] these instructions. Informed Consent Consent Obtained: Verbal [place] Protocol A moment to CARE was completed. [...] the bedside nurse for hospitalized patients) applicable. (M16.12) Primary osteoarthritis of left hip (primary encounter diagnosis) Janine Car DO 04/04/2025 documented in this encounter [facility] 04-02-2025 History of Present illness Narrative This note has been dictated. Yefri Peguero M.D. documented in this encounter [facility] 04-02-2025 Note HNO ID: [id number] Author: NUBIA PEGUERO MD Service: ? Author Type: Physician Type: Progress Notes Filed: 04/02/2025 13:12 Note Text: This note has been dictated. Yefri Peguero M.D. [facility] 04-02-2025 History of Present illness Narrative Radiology [...] PATIENT PRESENTS WITH AN IMPLANTABLE OR ATTACHED INDUSTRIAL MAINTENANCE INSTRUCTOR: No RADIOLOGY DEPARTMENT: General X-ray: Exam(s) Completed: Pelvis X-Ray: Pelvis with Hip Left PERIPHERAL IV DATA: Not applicable SIGNED BY: RT Real(Stewart) April 02, 2025 11:20 AM documented in this encounter [facility] 04-02-2025 Note HNO ID: [id number] Author: CRYSTAL GUTIERREZ RT(R) Service: Radiology Author Type: Technologist Type: Progress Notes Filed: 04/02/2025 11:21 Note Text: Radiology Service Progress Note PATIENT NAME: Rigo [...] PATIENT PRESENTS WITH AN IMPLANTABLE OR ATTACHED INDUSTRIAL MAINTENANCE INSTRUCTOR: No RADIOLOGY DEPARTMENT: General X-ray: Exam(s) Completed: Pelvis X-Ray: Pelvis with Hip Left PERIPHERAL IV DATA: Not applicable SIGNED BY: RT Real(Stewart) April 02, 2025 11:20 AM [facility] 04-02-2025 Note HNO ID: [id number] Author: NUBIA PEGUERO MD Service: Orthopaedic Surgery Author Type: Physician Type: Progress Notes Filed: 04/04/2025 15:37 Note Text: [facility] NOTE [facility] NAME: RIGO JEFFERSON NO.: [id number] DATE OF SERVICE: 04/02/2025 ATTENDING PHYSICIAN: Nubia Peguero II, M.D. Orthopedic Consult CHIEF COMPLAINT: Left hip pain and some groin pain. WHEN: Began having pain in early March when he was walking stairs and walking a lot. HOW: Tripped over a garden hose, landing on his right side. WHERE: At home. PAST MEDICAL TREATMENT: NSAIDs: Percocet by [facility] in [place], [place]. PT: Has used a TENS unit with no help. Has had a cortisone shot in the area of the hip, but is not sure that it was specifically in the hip joint, this was 3 months ago. PAST SURGICAL TREATMENT: Plate in his neck. No hip surgery. REVIEW OF SYSTEMS: Cardiovascular: No history of heart disease, but has hypertension. Respiratory: Has COPD. Gastrointestinal: No history of ulcers. Endocrine: The patient denies being a diabetic. Heme: No history of phlebitis, blood clots or bleeding disorders. Urinary: No history of urinary tract infections. SOCIAL HISTORY: Nonsmoker. 65-year-old, 6 feet, 239 pounds male, BMI 32.41. The patient apparently had a CT scan of his left hip, which suggested AVN, this was done outside in [place]. Has tenderness in the buttock area and in the groin with internal rotation of the left hip. Neurovascularly intact. Gets up without much difficulty and walks without limping. X-ray showed degenerative arthritis, pryv-so-lhkycydr of both hips, certainly central. Has good space superiorly. IMPRESSION: 1. Degenerative arthritis of the left hip. 2. 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 RECOMMENDATIONS: Recommend hip injection with ultrasound guidance by Dr. Car, we will make arrangements. DICTATED BY: Nubia Peguero II, M.D. AMAN/AQT JOB# [id number] [facility] 03-26-2025 History of Present illness Narrative Associated [...] to Orthopaedic Surgery documented in this encounter [facility] 01-11-2025 Note [facility] Cardiology Clinic Note Reason [...] effort of breathing, (more content not included)... [facility] 09-11-2024 History of Present illness Narrative iRgo Jefferson is a 64 y.o. male Husam Muñoz MD presents with chief complaint of Testicular Hypofunction HPI: Interim history: 09/2024. Followup visit: 09/11/2024. he is testosterone cypionate 100 mg 1/2 ml [id number], testosterone 183 (264-916), hemoglobin 17.8, PSA 1.02. Interim history: 03/2024. Followup visit: . he is testosterone cypionate 100 mg 1/2 ml [id number], testosterone 537 (264-916), hemoglobin not done, PSA [...] PSA. HPI: 08/2023 New patient sent from [facility] for hypogonadism, low testosterone. I have the [...] months (around 03/11/2025). documented in this encounter [facility] 09-11-2024 Telephone encounter Note Please refax order to [facility] with order diagnosis for PSA updated. They state they spoke to you yesterday about this and you said you were going to send it, but I don't see it in his chart anywhere to send again. Thanks! [facility] 09-11-2024 Miscellaneous Notes Please refax order to [facility] with order diagnosis for PSA updated. They state they spoke to you yesterday about this and you said you were going to send it, but I don't see it in his chart anywhere to send again. Thanks! documented in this encounter [facility] 08-15-2024 Telephone encounter Note IZZY:07/09/2024 NOV:10/30/2024 [facility] 08-15-2024 Miscellaneous Notes IZZY:07/09/2024 NOV:10/30/2024 Patient stopped in and stated he is suppose to take 2 pills a day. 1 in morning and 1 at night. He only got a 30 supply and is about out. He would like another script. An documented in this encounter [facility] 08-09-2024 Telephone encounter Note Patient stopped in and stated he is suppose to take 2 pills a day. 1 in morning and 1 at night. He only got a 30 supply and is about out. He would like another script. An [facility] 08-07-2024 Telephone encounter Note IZZY:07/09/2024 NOV:08/16/2024 [facility] 08-07-2024 Miscellaneous Notes IZZY:07/09/2024 NOV:08/16/2024 documented in this encounter [facility] 07-11-2024 Note [facility] Note Reason for cardiology [...] history of COPD (chronic obstructive pulmonary disease) ([facility]), Hyperlipidemia, Hypertension, Pulmonary emphysema (CMS/HCC), [...] x3, well devel (more content not included)... [facility] 07-09-2024 History of Present illness [...] adult - Primary Pt meets qualifications of [facility] 4731-07-09 for weight loss. BMI>30 or >27 with comorbid conditions. Blood pressure WNL. Notify office with any symptoms of chest pain, dyspnea, heart palpitations, or any anxiety symptoms. F/U in 4 weeks to document weight loss. Increase physical activity as tolerated, and lower caloric intake to 1600 calories daily if no contraindications Relevant Medications phentermine (Adipex-P) 37.5 MG tablet documented in this encounter [facility] 06-06-2024 History of Present illness [...] if no contraindications documented in this encounter [facility] 06-06-2024 Instructions Mani Satnoyo NP - 06/06/2024 3:30 PM EDT Notify [...] call my office! documented in this encounter [facility] 05-31-2024 History of Present illness [...] PATIENT PRESENTS WITH AN IMPLANTABLE OR ATTACHED INDUSTRIAL MAINTENANCE INSTRUCTOR: No RADIOLOGY DEPARTMENT: General X-ray: Exam(s) Completed: Spine X-Ray(s): Cervical AP / LAT / FLEX-EXT and Lumbar AP / LAT / L5-S1 / FLEX-EXT PERIPHERAL IV DATA: Not applicable SIGNED BY: RT Lory(R) May 31, 2024 2:55 PM documented in this encounter [facility] 05-31-2024 Note HNO ID: [id number] Author: JUAN GREEN MD Service: ? Author Type: Physician Type: Progress Notes Filed: 05/31/2024 15:12 Note Text: SPINE SURGERY NEW PATIENT This is an in-person visit. PCP: No primary care provider on file. REFERRING PROVIDER: SUBJECTIVE CHIEF COMPLAINT: Hand spray machine loader weakness Decreased sensation over left hemibody Lower [...] oriented to person, place, and time. Mood ple (more content not included)... [facility] 05-31-2024 History of Present illness Narrative SPINE SURGERY NEW PATIENT This is an in-person visit. PCP: No primary care provider on file. REFERRING PROVIDER: SUBJECTIVE CHIEF COMPLAINT: Hand spray machine loader weakness Decreased sensation over left hemibody Lower [...] all muscle groups. Except mild bilateral hand spray machine loader weakness. SENSORY: Creased sensation for light touch [...] patient was counseled regarding neck pain, hand spray machine loader weakness, decreased sensation over left hemibody, lower back pain, left leg pain, walking difficulty, left leg numbness, lumbar spondylosis, lumbar canal stenosis, lumbar laminectomy with foraminotomy, adjacent segment cervical stenosis, MRI cervical spine. Total face to face time was 45 minutes. SIGNATURE: Juan Green MD PATIENT NAME: Rigo Jefferson DATE: May 31, 2024 TIME: 1:44 PM PAGER: documented in this encounter [facility] 05-21-2024 History of Present illness Narrative [...] for weight loss. Pt meets qualifications of [facility] 4731-07-09 for weight loss. BMI>30 or >27 [...] Starting weight 213 documented in this encounter [facility] 05-14-2024 Note [facility] Note Reason for cardiology [...] history of COPD (chronic obstructive pulmonary disease) ([facility]), Hyperlipidemia, Hypertension, Pulmonary emphysema ([facility]), and Sleep apnea. Surgical History [...] hemoglobin 16, hematocrit (more content not included)... [facility] 05-03-2024 History of Present illness Narrative Associated Problem(s): Chronic seasonal allergic rhinitis Cetirizine D and Flonase daily. Feels symptoms are well managed. Continue current regimen. Associated Problem(s): Primary hypogonadism in male Follows Endocrinology for testosterone replacement therapy. Associated Problem(s): Chronic pain syndrome R/T severe lumbar stenosis Pain management referred to [facility] for further management. Still [...] ALBUMIN GLOBULIN RATIO 1.0 Resulting Agency [facility] COPD: Does not follow pulmonolgy; Has not had any PFT's recently. No medication at this time. States inhalers were too expensive. Feels his symptoms are well managed. Except in excess humidity and warmer weather. Chronic Lumbar Stenosis: Pain management referred to [facility] Still following with Pain [...] Panel WNL. Continue current regimen; Hypertensive disorder ([facility]/HCC) Currently taking no medications; All were stopped by previous provider in February/ pt having excessively low BP readings. Referral [...] at next OV. documented in this encounter [facility] 05-03-2024 Instructions Mani Santoyo NP - 05/03/2024 11:00 AM EDT Have lab work completed. Keep all follow up appointments. Call if you need anything! documented in this encounter [facility] 04-24-2024 Note HNO ID: [id number] Author: MICHELLE FLORENTINO APRN.INTERIOR SPECIALIST Service: ? Author Type: Nurse Practitioner Type: Progress Notes Filed: 04/24/2024 16:54 Note Text: Per Triage: Rigo Jefferson is a 64 year old male. that presents with symptoms of low back pain that radiates down the left leg. Previous spine surgery: Yes in [address] Sales. BMI: NA Out of state: No A1C: NA CMT: Injections Sales Marketing Manager Mobic Oxycodone Studies (Reports unless indicated) MRI Lumbar 04/03/2024 -Severe central canal stenosis at L3-L4 and L4-L5 Disposition: Please schedule with first available lumbar spine surgeon with pre-visit x-ray. [facility] 04-24-2024 History of Present illness Narrative Per Triage: Rigo Jefferson is a 64 year old male. that presents with symptoms of low back pain that radiates down the left leg. Previous spine surgery: Yes in [address] Sales. BMI: NA Out of state: No A1C: NA CMT: Injections Sales Marketing Manager Mobic Oxycodone Studies (Reports unless indicated) MRI Lumbar 04/03/2024 -Severe central canal stenosis at L3-L4 and L4-L5 Disposition: Please schedule with first available lumbar spine surgeon with pre-visit x-ray. Patient name: Rigo Jefferson Are you being referred by a Center for Spine Health Provider or Pain Management Provider at [facility]? No If answer is YES please [...] the MRI/CT/myelogram was completed: [facility] Address: [address] [place] [address] MRI/CT/myelogram viewable in Epic: No If not, please provide [phone] to fax in imaging reports for review. [...] therapy was completed Injections The [facility] Address: [address] [place] [address] Have you tried any other kinds of [...] of where the surgery was completed: 2001 [facility] or Cannot recall Additional Comments documented in this encounter [facility] 04-19-2024 Note HNO ID: [id number] Author: ?, ?, ? Service: ? Author Type: ? Type: Progress Notes Filed: 04/24/2024 16:54 Note Text: Patient name: Rigo Jefferson Are you being referred by a [facility] Spine Health Provider or Pain Management Provider at [facility]? No If answer is YES please [...] the MRI/CT/myelogram was completed: [facility] Address: [address] [place] [address] MRI/CT/myelogram viewable in Epic: No If not, please provide [phone] to fax in imaging reports for review. [...] therapy was completed Injections The [facility] Address: [address] [id number] Have you tried any other kinds of [...] [facility] or Cannot recall Additional Comments [facility] 12-09-2022 Note CONSULTATION PROCEDURE DATE: 12/09/2022 PROCEDURE: [...] our patients to inform us about any kcyc-qbx-[id number] medications or herbal remedies/nutritional supplements/alternative remedies. 2. [...] their primary care provider. [facility] 11-25-2022 Note CONSULTATION CONSULTATION DATE: 11/25/2022 TO: [...] shoulders, bilaterally, without contrast. [facility] 09-03-2022 Note CONSULTATION CONSULTATION DATE: 09/03/2022 HISTORY [...] time, unless otherwise indicated. [facility] 06-01-2022 Note CONSULTATION CONSULTATION DATE: 06/01/2022 CHIEF [...] b.i.d. basis. The patient also uses the VGTel heat rub to his cervical spine. The [...] CC: Shaikh Helena M.D. [facility] 05-18-2022 Note CONSULTATION CONSULTATION DATE: 05/18/2022 HISTORY [...] CC: Shaikh Helena M.D. [facility] 05-18-2022 Note CONSULTATION PROCEDURE DATE: 05/18/2022 PREOPERATIVE [...] up in the office. [facility] 04-29-2022 Note CONSULTATION CONSULTATION DATE: 04/29/2022 HISTORY [...] injections with Dr. Duncan. [facility] 01-27-2022 Note CONSULTATION CONSULTATION DATE: 01/27/2022 HISTORY [...] in three month's time, unless otherwise indicated. [facility] Signed and Approved by: RAVINDER ANDERSEN . 02/04/2022 16:12:00 [facility] 02-12-2021 Note Send Summary: Discharge Summary [...] at Discharge: .Home Vital Signs: T PRBPSpO2 [id number]/8395% Date/Time02/12 12: 12: 12: 12: 12:10 Range(35.4C - 36.4C ) (77 - 99 ) (17 - 18 ) (127 - 147 )/ (83 - 91 ) (92% - 96% ) As of 12-Feb-2021 12:10:00, patient is on 2 L/min of oxygen Date: Weight/Scale Type:Height: 12-Feb-2021 01:76720.8 kg / wysugcpm265.8 cm Hospital Course: 60 yo male with [...] to Schedule in: 2 weeks Location: [address] [place] [address] Discharge Medications: Home Medication clarithromycin 250 mg [...] documented in the note. Electronic Signatures: Jesusita StevensonDO (Resident)) (Signed 12-Feb-2021 17:35) Authored: Send Summary, Summary Content, Ongoing Care, Note Completion Chuck Cook) (Signed 13-Feb-2021 10:13) Authored: Note Completion Co-Signer: Send Summary, Summary Content, Ongoing Care, Note Completion Last Updated: 13-Feb-2021 10:13 by Chuck Cook) [facility] 02-11-2021 Note Post Operative Note: PreOp Diagnosis: diaphragm paralysis Post-Procedure Diagnosis: same Procedure: 1. laparoscopic L diaphragm plication 2. removal of bilateral diaphragm pacing wires 3. L pigtail chest tube placement Surgeon: Dr Chuck Cook Resident/Fellow/Other Legal Technician: Dr Saw Saleem Anesthesia: GETA Estimated Blood [...] Last Updated: 12-Feb-2021 07:53 by Chuck Cook) [facility] 02-11-2021 Note History & Physical R [...] Last Updated: 11-Feb-2021 15:50 by Chuck Cook) [facility] Chief complaint Narrative - Reported An interactive audio and video telecommunication system which permits real time communications between the patient (at the originating site) and provider (at the distant site) was utilized to provide this telehealth service.Post op [address] Work Phone: Evaluation note Constitutional: Well developed, awake/alert/oriented x3, no distress, alert and cooperativeSkin: warm and dryEyes: PERRL, EOMI, clear scleraENMT: MMMHead/Neck: NCATRespiratory/Thorax: good chest expansion, thorax symmetricCardiovascular: RRRGastrointestinal: Nondistended, soft, non-tender, no rebound tenderness or guardingMusculoskeletal: moves all extremitiesExtremities: well perfusedNeurological: grossly intactPsychological: Appropriate mood and behavior [facility] Evaluation note Diagnosis Spinal stenosis of lumbar region with neurogenic claudication- Primary Spinal stenosis, lumbar region, with neurogenic claudication [facility] Cervical vertebral fusion- Primary Other unspecified back disorder Spinal stenosis of cervical region Spinal stenosis in cervical region documented [facility] this encounter [facility] Diagnosis Cervical vertebral fusion Other unspecified back disorder documented [facility] this encounter [facility] Diagnosis Chronic obstructive pulmonary disease, unspecified COPD type (CMS/HCC)- Primary Paralyzed hemidiaphragm Class 1 obesity due to excess calories without serious comorbidity with body mass index (BMI) of 31.0 to 31.9 in adult documented in this encounter [facility]* Diagnosis Primary hypertension (CMS/HCC)- [...] in adult- Primary documented in this encounter [facility] note* Diagnosis Primary hypertension (CMS/HCC)- [...] Chronic allergic rhinitis documented in this encounter [facility] note* Diagnosis Primary hypertension (CMS/HCC)- [...] Chronic allergic rhinitis documented in this encounter [facility]* Diagnosis Primary hypertension (CMS/HCC)- [...] Chronic allergic rhinitis documented in this encounter [facility] note* Diagnosis Class 1 obesity due to excess calories without serious comorbidity with body mass index (BMI) of 31.0 to 31.9 in adult- Primary documented in this encounter [facility]* Diagnosis Primary hypertension (CMS/HCC)- [...] Primary Rosacea, unspecified documented in this encounter [facility]Evaluation note* Diagnosis Chronic obstructive pulmonary disease, unspecified COPD type (CMS/HCC)- Primary Primary hypertension (CMS/HCC) Unspecified essential hypertension Class 1 obesity due to excess calories without serious comorbidity with body mass index (BMI) of 31.0 to 31.9 in adult Hyperlipidemia, unspecified hyperlipidemia type (CMS/HCC) Chronic seasonal allergic rhinitis Primary hypogonadism in male documented in this encounter [facility]* Diagnosis Primary hypertension (CMS/HCC)- [...] Chronic obstructive pulmonary disease, unspecified COPD type ([facility]/HCC)- Primary Primary hypertension (CMS/[facility]) Unspecified essential hypertension Class 1 obesity due to excess calories without serious comorbidity with body mass index (BMI) of 31.0 to 31.9 in adult Hyperlipidemia, unspecified hyperlipidemia type ([facility]/HCC) Chronic seasonal allergic rhinitis Primary hypogonadism in male Class 1 obesity due to excess calories without serious comorbidity with body mass index (BMI) of 31.0 to 31.9 in adult- Primary Chronic obstructive pulmonary disease, unspecified COPD type ([facility])- Primary Paralyzed hemidiaphragm Class 1 obesity due to excess calories without serious comorbidity with body mass index (BMI) of 31.0 to 31.9 in adult Class 1 obesity due to excess calories without serious comorbidity with body mass index (BMI) of 31.0 to 31.9 in adult- Primary Hypopituitarism ([facility])- Primary Panhypopituitarism Decreased libido Encounter for dietary consultation Class 1 obesity due to excess calories without serious comorbidity with body mass index (BMI) of 31.0 to 31.9 in adult documented [facility] Diagnosis Primary hypertension- Primary Unspecified [...] 33.9 in adult documented [facility] this encounter [facility]* Diagnosis Primary hypertension- Primary Unspecified [...] 33.9 in adult documented in this encounter [facility]* Diagnosis Primary hypertension- Primary Unspecified [...] 33.9 in adult [facility] Primary osteoarthritis of left hip- Primary Primary localized osteoarthrosis, pelvic region and thigh documented in this [facility] Diagnosis Pain Generalized pain documented in this encounter [facility] Diagnosis Primary osteoarthritis of left hip- Primary Primary localized osteoarthrosis, pelvic region and thigh documented in this encounter [facility] Diagnosis Primary hypertension- Primary Unspecified essential [...] (BMI) of 33.0 to 33.9 in adult Hypopituitarism (HCC)- Primary Panhypopituitarism Decreased libido Encounter for dietary consultation Class 1 obesity due to excess calories without serious comorbidity with body mass index (BMI) of 32.0 to 32.9 in adult documented in this encounter [facility]Evaluation note* Diagnosis Primary hypertension- Primary Unspecified [...] (BMI) of 33.0 to 33.9 in adult Hypopituitarism (HCC) Panhypopituitarism documented in this encounter [facility] [...] not he wants to follow-up with a body bumper in our system. [address] Work Phone: Hospital Discharge instructions* [...] follow-up / diaphragm pacer removal, hemidiaphragm plicationLocation: [address] [address] Number: [phone] * Gold Form - Other Clinicians:Other Clinician Instructions: Please take your medications as directed. Please follow-up with Dr. Cook and with your PCP as directed. You may remove dressings and shower Tuesday. No heavy lifting >20lbs or strenours activity for 3 weeks. If your symptoms return orworsen, please seek medical attention. Thank you for allowing us to participate in your care. [facility] Diagnostic Procedure Only (Routine) - New Request Specialty Diagnoses / Procedures Referred By Contac t Referred To Contact XR IMAGING Diagnoses Spinal stenosis of lumbar region with neurogenic claudication Procedures XR LUMBAR MOTION 4V AP/LAT/ FLEX/EXT RADEX SPINE LUMBOSACRAL MINIMUM 4 VIEWS Michelle Florentino APRN.CNP [address] [place] [address] [address] [address] Referral ID Status Reason Start Date Expiration Date Visits Requested Visits Authorized [id number] New Request Auto-Generat ed Referral 04/24/2024 05/24/2025 1 1 [facility] for referral (narrative)* Diagnostic Procedure Only (Routine) - Closed Specialty Diagnoses / Procedures Referred By Contac t Referred To Contact XR IMAGING Diagnoses Cervical vertebral fusion Procedures XR CERV OTHER 4V AP/LAT/FLX/EXT RADEX SPINE CERVICAL 4 [place] [address] [place] [address] [place] [address] Referral ID Status Reason Start Date Expiration Date V isits Requested Visits Authorized [id number] Closed Auto-Generate d Referral 05/31/2024 06/30/2025 1 1 [facility] for referral (narrative)* Consultation (Urgent) - Authorized Specialty Diagnoses / Procedures Referred By Contac t Referred To Contact Pulmonary Disease Diagnoses Chronic obstructive pulmonary disease, unspecified COPD type (CMS/HCC) Paralyzed hemidiaphragm Procedures [place] OFFICE/OUTPATIENT NEW HIGH MDM 60 MINUTES Mani Santoyo NP [address] [place] [phone] Aly Mosley MD [address] [place] [address] Referral ID Status Reason Start Date Expiration Date Visits Requested Visits Authorized [id number] Authorized Specialty Services Required 06/06/2024 12/03/2024 1 [...] SPINAL CANAL CERVICAL W/[place] [address] [facility] [place] [id number] Mr Imaging [facility] Referral ID Status Reason Start Date Expiration Date Visits Requested Visits Authorized [id number] New Request Auto-Generat ed Referral 05/31/2024 06/30/2025 1 1 Specialty Diagnoses / Procedures Referred By Contac t Referred To Contact XR IMAGING Diagnoses Cervical vertebral fusion Procedures XR CERV OTHER 4V AP/LAT/FLX/EXT RADEX SPINE CERVICAL 4 [place] [address] [facility] [id number] Xr [facility] [place] [address] Referral ID Status Reason Start Date Expiration Date V isits Requested Visits Authorized [id number] Closed Auto-Generate d Referral 05/31/2024 06/30/2025 1 [...] section and content) DATE CREATED AUTHOR 04/04/2021 [employer] DATE CREATED AUTHOR AUTHOR'S ORGANIZ ATION 04/08/2021 [facility] DATE CREATED AUTHOR AUTHOR'S ORGANIZ ATION 12/31/2022 [facility] DATE CREATED AUTHOR AUTHOR'S ORGANIZ ATION 01/13/2025 [facility] DATE CREATED AUTHOR AUTHOR'S ORGANIZ ATION 01/30/2025 [facility] DATE CREATED AUTHOR AUTHOR'S ORGANIZ ATION 04/06/2025 [facility] DATE CREATED AUTHOR AUTHOR'S ORGANIZ ATION 04/14/2025 [facility] EPIC Source Comments (unrecognize d section and content) In the event this informatio n is protected by the Federal Confidentiality of Alcohol and Drug Abuse Patient Records regulations: The Federal rules restrict any use of the information to criminally investigate or prosecute any alcohol or drug abuse patient.[facility] the event this information is protected by the Federal Confidentiality of Alcohol and Drug Abuse Patient Records regulations: The Federal rules restrict any use of the information to criminally investigate or prosecute any alcohol or drug abuse patient.[facility] the event this information is protected by the Federal Confidentiality of Alcohol and Drug Abuse Patient Records regulations: The Federal rules restrict any use of the information to criminally investigate or prosecute any alcohol or drug abuse patient.[facility] the event this information is protected by the Federal Confidentiality of Alcohol and Drug Abuse Patient Records regulations: The Federal rules restrict any use of the information to criminally investigate or prosecute any alcohol or drug abuse patient.[facility] the event this information is protected by the Federal Confidentiality of Alcohol and Drug Abuse Patient Records regulations: The Federal rules restrict any use of the information to criminally investigate or prosecute any alcohol or drug abuse patient.[facility] the event this information is protected by the Federal Confidentiality of Alcohol and Drug Abuse Patient Records regulations: The Federal rules restrict any use of the information to criminally investigate or prosecute any alcohol or drug abuse patient.[facility] Care Teams (unrecognized sec tion and content) Station Cleaning Porter Relationship Specialty Start Date End Date Tonny Hernandez MD [address] [place] [address] Referring Pain Management 04/16/24 Station Cleaning Porter Relationship Specialty Start Date End Date Tonny Hernandez MD [address] [place] [facility] [place] [address] Referring Pain Management 04/16/24 Station Cleaning Porter Relationship Specialty Start Date End Date Tonny Hernandez MD [address] [place] [facility] [place] [place] [address] Referring Pain Management 04/16/24 Station Cleaning Porter Relationship Specialty Start Date End Date Rosa Barker MD [address] [place] [address] PCP - Devoted 09/05/22 Nikunj Carmona MD [address] [place] [address] PCP - General Family Medicine 04/09/24 Mani Santoyo NP [address] [place] [address] Nurse Practitioner Family Medicine 04/09/24 Station Cleaning Porter Relationship Specialty Start Date End Date Rosa Barker MD [address] [facility] [address] [place] [address] PCP - Devoted 09/05/22 Nikunj Carmona MD [address] [place] [address] PCP - General Family Medicine 04/09/24 Mani Santoyo NP [address] [place] [address] Nurse Practitioner Family Medicine 04/09/24 Station Cleaning Porter Relationship Specialty Start Date End Date Rosa Barker MD [address] [place] [address] PCP - Devoted 09/05/22 Nikunj Carmona MD [address] [place] [address] PCP - General Family Medicine 04/09/24 Mani Santoyo, GREGORY [address] [place] [address] Nurse Practitioner Family Medicine 04/09/24 Station Cleaning Porter Relationship Specialty Start Date End Date Rosa Barker MD [address] [place] [address] PCP - Devoted 09/05/22 Nikunj Carmona MD [address] [place] [address] PCP - General Family Medicine 04/09/24 Mani Santoyo, GREGORY [address] [place] [address] Nurse Practitioner Family Medicine 04/09/24 Station Cleaning Porter Relationship Specialty Start Date End Date Rosa Barker MD [address] [facility] [address] [place] [address] PCP - Devoted 09/05/22 Nikunj Carmona MD [address] [place] [address] PCP - General Family Medicine 04/09/24 Mani Santoyo NP [address] [place] [address] Nurse Practitioner Family Medicine 04/09/24 Station Cleaning Porter Relationship Specialty Start Date End Date Rosa Barker MD [address] [place] [address] PCP - Devoted 09/05/22 Nikunj Carmona MD [address] [place] [address] PCP - General Family Medicine 04/09/24 Mani Santoyo, GREGORY [address] [place] [address] Nurse Practitioner Family Medicine 04/09/24 Station Cleaning Porter Relationship Specialty Start Date End Date Rosa Barker MD [address] [facility] [address] [place] [address] PCP - Devoted 09/05/22 Nikunj Carmona MD [address] [place] [address] PCP - General Family Medicine 04/09/24 Mani Santoyo, SOCK DRIER [address] [place] [address] Nurse Practitioner Family Medicine 04/09/24 Station Cleaning Porter Relationship Specialty Start Date End Date Rosa Barker MD [address] [place] [place] [address] PCP - Devoted 09/05/22 Nikunj Carmona MD [address] [place] [address] PCP - General Family Medicine 04/09/24 Mani Santoyo NP [address] [place] [address] Nurse Practitioner Family Medicine 04/09/24 Station Cleaning Porter Relationship Specialty Start Date End Date Rosa Barker MD [address] [place] [address] PCP - Devoted 09/05/22 Nikunj Carmona MD [address] [place] [address] PCP - General Family Medicine 04/09/24 Mani Santoyo NP [address] [place] [address] Nurse Practitioner Family Medicine 04/09/24 Station Cleaning Porter Relationship Specialty Start Date End Date Rosa Barker MD [address] [place] [place] [address] PCP - Devoted 09/05/22 Nikunj Carmona MD [address] [place] [address] PCP - General Family Medicine 04/09/24 Mani Santoyo NP [address] [place] [address] Nurse Practitioner Family Medicine 04/09/24 Station Cleaning Porter Relationship Specialty Start Date End Date Rosa Barker MD [address] [place] [place] [address] PCP - Devoted 09/05/22 Nikunj Carmona MD [address] [place] [address] PCP - General Family Medicine 04/09/24 Station Cleaning Porter Relationship Specialty Start Date End Date Rosa Barker MD [address] [place] [place] [address] PCP - Devoted 09/05/22 Nikunj Carmona MD [address] [place] [address] PCP - General Family Medicine 04/09/24 Station Cleaning Porter Relationship Specialty Start Date End Date Rosa Barker MD [address] [facility] [address] [place] [address] PCP - Devoted 09/05/22 Nikunj Carmona MD [address] [place] [address] PCP - General Family Medicine 04/09/24 Station Cleaning Porter Relationship Specialty Start Date End Date Rosa Barker MD [address] [facility] [address] [place] [address] PCP - Devoted 09/05/22 Nikunj Carmona MD [address] [place] [address] PCP - General Family Medicine 04/09/24 Station Cleaning Porter Relationship Specialty Start Date End Date Rosa Barker MD [address] [address] [place] [address] PCP - Devoted 09/05/22 Nikunj Carmona MD [address] [place] [address] PCP - General Family Medicine 04/09/24 Station Cleaning Porter Relationship Specialty Start Date End Date Tonny Hernandez MD [address] [place] [facility] [place] [address] Referring Pain Management 04/16/24 Nikunj Carmona MD [address] [place] [address] Family Medicine 03/26/25 Station Cleaning Porter Relationship Specialty Start Date End Date Tonny Hernandez MD [address] [place] [facility] [place] [place] [place] [address] Referring Pain Management 04/16/24 Nikunj Carmona MD [address] [place] [address] Family Medicine 03/26/25 Station Cleaning Porter Relationship Specialty Start Date End Date Tonny Hernandez MD [address] [place] [facility] [place] [place] [place] [address] Referring Pain Management 04/16/24 Nikunj Carmona MD [address] [place] [address] Family Medicine 03/26/25 Station Cleaning Porter Relationship Specialty Start Date End Date Rosa Barker MD [address] [facility] [address] [place] [address] PCP - Devoted 09/05/22 Nikunj Carmona MD [address] [place] [address] PCP - General Family Medicine 04/09/24 Station Cleaning Porter Relationship Specialty Start Date End Date Rosa Barker MD [address] [facility] [address] [place] [address] PCP - Devoted 09/05/22 Nikunj Carmona MD [address] [place] [address] PCP - General Family Medicine 04/09/24 Station Cleaning Porter Relationship Specialty Start Date End Date Rosa Barker MD [address] [facility] [address] [place] [address] PCP - Devoted 09/05/22 Nikunj Carmona MD [address] [place] [id number] PCP - General Family Medicine 04/09/24 Reason for Visit (unrecogniz ed section and content) Reason Comments New Patient Reason Comments Radio Gen RMP Specialty Diagnoses / Procedures Referred By Contac t Referred To Contact XR IMAGING Diagnoses Cervical vertebral fusion Procedures XR CERV OTHER 4V AP/LAT/FLX/EXT RADEX SPINE CERVICAL 4 [place] [address] [place] [address] [place] [address] Referral ID Status Reason Start Date Expiration Date V isits Requested Visits Authorized [id number] Closed Auto-Generate d Referral 05/31/2024 06/30/2025 1 [...] RADEX HIP UNILATERAL WITH PELVIS 2-3 VIEWS Nubia Peguero MD [address] [place] [address] Phone: tel: fax: [place] [address] Referral ID Status Reason Start Date Expiration Date V isits Requested Visits Authorized [id number] Closed Auto-Generate d Referral 03/26/2025 04/25/2026 1 1 Reason Comments New Pain Injections Specialty Diagnoses / Procedures Referred By Contac t Referred To Contact Orthopedics / ORTHOPAEDIC SURGERY Diagnoses LEFT HIP INJECTION PER DR. PEGUERO Procedures BETI INJECT 1 Nubia Peguero MD [address] [place] [address] Phone: tel: [place]: [place] [address] [place] [address] Phone: tel: fax: Referral ID Status Reason Start Date Expiration Date Visits Re quested Visits Authorized [id number] Closed 04/04/2025 07/03/2025 1 1 Reason Comments Testicular Hypofunction Follow-up LAB Reason Comments Med Change Request FOR RECORDS PERTAINING TO PATIENTS WHO ARE [...] BE BASED ON THE PRIMARY CLINICAL RECORDS. [facility] [employer] [facility]. provides no warranty or guarantee of the accuracy or completeness of information in this document.
[2025-05-21 10:19] LABS: Aspartate Amino Transferase 46 U/L (15-37)
[2025-05-21 11:53] LABS: Alanine Aminotransferase 61 U/L (16-63); Cholesterol 127 mg/dL (<=200); HDL Cholesterol 52 mg/dL (40-60); Triglycerides 64 mg/dL (<=150); VLDL CHOLESTEROL 12.8 mg/dL
== END 2025-05-21 09:16 | disposition home or self-care (01) ==
LOC: LAB 09:17
PROVIDERS: PCP Family Medicine; Visit Provider Internal Medicine Cardiovascular Disease
DX: E78.00 Pure hypercholesterolemia, unspecified (principal)
CPT/HCPCS: 36415; 80061; 84450; 84460

== ENCOUNTER 2025-07-03 09:57 | Outpatient (OUT) | payer OTHER, SELFPAY ==
--- OUTSIDE RECORDS SUMMARY | 2025-06-27 09:57 | XMS_ITS | Continuity of Care Document ---
Author Organization [facility] Address [address] [place] [address] Phone Care Team Providers Care Recycling Attendant Name Role Phone Nikunj Yanez MD Primary Care Provider Jr Manzano MD Attending Provider Nikunj Yanez MD Attending Provider [phone] Care Teams Patient Care Team Team Status: Active Member Role/Relationship Status Dates Nikunj Yanez MD Primary Care Provider Active Visit Care Team Team Status: Active Member Role/Relationship Status Dates Nikujn Yanez MD Primary Care Provider Active S tart: May 21, 2025 Artemio Bean ProviderActiveStart: May 21, 2025 Patient Care Team Team Status: Inactive Member Role/Relationship Status Dates Nikunj Yanez MD Primary Care Provider Active S tart: June 27, 2025 End: June 27, 2025[facility] SystemArtemio Knutson ProviderActiveStart: June 27, 2025 End: June 27, 2025 Chief Complaint and Reason for Visit Chief Complaint Admit Date r/s June 27, 2025 1 :12pm Reason for Visit Admit Date Chronic obstructive lung disease June 27, 2025 1:12pm Class 1 obesity due to exces s calories with serious comorbidity and body ma June 27, 2025 1:12pm Hypertensive disorder June 27, 2025 1:12pm Allergies, Adverse Reactions, Alerts Allergen Type Severity Reaction Last Updated Verified Status No Known Allergies Allergy Unknown June 27, 2025 1:24pmYesActive Social History Smoking Status Status Start Date End Date Date of Observa tion Ex-smoker (finding) June 27, 2025 1:28pm Observation Status Observation Response Date of Response Legal Sex Male (finding) [facility] 1959 Problems Active Problems Problem Diagnosis/Recorded Date Onset Date Stat us Paralyzed hemidiaphragm June 25, 2025 4:27pm Unkn own Active 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 with body mass index (BMI) of 33.0 to 33.9 in adult May 09, 2025 3:59pm Unknown Active Primary osteoarthritis of left hip June 25, 2025 4:27pm Unknown Active Dyslipidemia June 25, 2025 4:26pm Unknown Ac tive Hypopituitarism June 25, 2025 4:27pm Unknown Active Primary hypogonadism in male June 25, 2025 4:27pm Unknown Active Abnormal CT scan June 25, 2025 4:23pm Unknown Active Coronary artery disease invo lving [place] coronary artery of [place] heart without angina pectoris June 25, 2025 4:26pm Unknown Active Degenerative lumbar spinal stenosis June 25, 2025 4:26pm Unknown Active Chronic pain syndrome June 25, 2025 4:23pm Unknow n Active Chronic obstructive lung disease June 25, 2025 4: 23pm Unknown Active Decreased libido June 25, 2025 4:26pm Unknown Active Hypertensive disorder June 25, 2025 4:26pm Unknow n Active Chronic seasonal allergic rhinitis June 25, 2025 4:24pm Unknown Active Class 1 obesity due to exces s calories with serious comorbidity and body mass index (BMI) of 33.0 to 33.9 in adult June 25, 2025 4:25pm Unknown Active Medications Medication Status Dose Units Route Directions Qty Days Refills S tart Date Stop Date End Date Reason(s) Instructions Adherence Phentermine 37.5 mg capsule Discontinued 37.5 MG PO Daily 30 30 0 [facility] 12:00am June 27, 2025 1:25pmObesity, class 1 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 Genetic susceptibility to obesity Body mass index [BMI] 33.0-33.9, adultmust administer 30 minutes before or 1-2 hours after breakfastClarithromycin 250 mg ubwlnxFaljup485QFSDUrshg940Akvvifvlh 9th, 2025 12:00amComplies with drug therapyMontelukast 10 mg jmrpcsWwqxsb36MIJB Mapfl140Ztyyvxbvp 9th, 2025 12:00amComplies with drug therapyCefdinir 300 mg cfcpaltExpelqahblix695QWSCOcrso yjmeh905Fwcjlmd 7th, 2025 12:00amOctober 2024 1:25pmAtorvastatin 20 mg qnzschGjvxng37UUKKOltrxBfhjzug 2024 12:00am Complies with drug therapyAlbuterol Sulfate 1.25 mg/3 mL solution for nebulizationActive1.25MGINHALATIONEvery 6 hours as neededOctthree rivers medical center 2024 12:00amComplies with drug therapyAtenolol 25 mg eopttiSudajk76DKPXYbdeuEkwutbq 2024 12:00amComplies with drug therapyOxycodone-Acetaminophen 5-325 mg ujvtveLggrfc4NXULFVshqu 6 hours as lvvwsg9PjjunfpJune 25, 2025 12:00amComplies with drug therapyMethocarbamol 750 mg nxnxwfFjcoky187TMZOUcgv times dailyOctthree rivers medical center 2024 12:00amComplies with drug therapyTestosterone Cypionate 200 mg/mL mrgDwpjer921PFJLAEJWA 2 WEEKSOctthree rivers medical center 2024 12:00amComplies with drug therapy Relevant Diagnostic Tests and/or Laboratory Data Laboratory Results Test Collection Date/Time Result Date/Time Result Interpretation Reference Range Result Comment Performing Site Cholesterol/HDL Ratio May 21, 2025 9:39am Sept ember 2024 9:39am 2.4 3.3 - 4.4 LOW RISK4.4 - 7.1 AVERAGE RISK7.1 - 11.0 MODERATE RISK>11.0 HIGH RISK Alanine Aminotransferase (ALT/SGPT)May 21, 2025 9:39amSeptember 2024 9:39am61 U/C97-85Qomkjwtua Amino Transf (AST/SGOT)May 21, 2025 9:39amSeptember 2024 9:39am46 U/LAbove high tijeoh29-77Gazbhforhcz Level May 21, 2025 9:39amSeptember 2024 9:45mz369 mg/dL<=200HDL CholesterolSeptember 2024 9:39amSeptember 2024 9:39am52 mg/dL40-60> or =60 mg/dl - LOW CARDIOVASCULAR RISK<40 mg/dl - HIGH CARDIOVASCULAR RISKLDL Cholesterol, CalculatedSept2024 9:39amSeptverde valley medical center 2024 9:39am 62.2 mg/dL<100 mg/dl PBLSSZQ409-700 mg/dl NEAR OR ABOVE ZCNADTO866-298 mg/dl BORDERLINE QHRI144-404 mg/dl HIGH>190 mg/dl VERY HIGHTriglycerides Level May 21, 2025 9:39amSeptember 2024 9:39am64 mg/dL<=150VLDL Cholesterolpt2024 9:39amSeptverde valley medical center 2024 9:39am12.8 mg/dL Vital Signs Vital Reading Result Reference Range Collection Date/Time Height 72 [in_i] June 27, 2025 1:28foJfjzhu353.31 kgHel[facility] 2024 1:23pmBody Tsnfdtpfepu51.2 [degF]97.6-99.0[facility] 2024 1:23pmHeart Rate71 /anw72-551 June 27, 2025 1:23pmRespiratory rate12 /ixe55-22Hnnjpao 2024 1:23pm Oxygen saturation by Pulse %95-100[facility] 2024 1:23pmBP Brsytdsg147 mm[Hg]100-140[facility] 2024 1:23pmBP Tccjoppbr98 mm[Hg]60-100 June 27, 2025 1:23pmBMI (Body Mass Index)32.6 kg/n6Ojxulgd 2024 1:23pm Advance Directives Advance Directive Response Recorded Date/ Time Advance Directives No May 10:21am Insurance Providers Guarantor Ryan Yanci Address [address] [address]Contact Info.Home Phone: Coverage Status Update:2025 Payer Group Member ID Coverage Type Subscriber Relationship to Subscriber Effective Date Expiration Date Medicare [id number] Pete Id: [id number] [address] [place] [address] Home Phone: [employer] [facility] P[facility] [id number] Pete Id: [id number] [address] [address] Home Phone: self Encounters Encounter Location(s) Arrival/Admit Date Discharge/Departure Date Discharge/Departure Disposition Provider(s) Non-patient / Non-visit -[facility] Stuart Hendrix May 21, 2025 9:39am JENNIFER Beaneparted Physician/Provider Office Visit-[facility] Family Medicine [place] 2024 1:12pmOctober 2024 1:56pmDischarged to home care or self care (routine discharge)Nikunj Yanez MD Recent Diagnosis Onset Date Admit Date Chronic obstructive lung disease Unknown June 27, 2025 1:12pm Class 1 obesity due to exces s calories with serious comorbidity and body ma Unknown June 27, 2025 1:1 2pm Hypertensive disorder Unknown June 272024 1:12pm Assessments Diagnosis Onset Date Resolution Status Admit Date Chronic obstructive lung disease acuteOctober 2024 1:12pmClass 1 obesity due to excess calories with serious comorbidity and body maacuteOctober 2024 1:12pmHypertensive disorderacuteOctober 2024 1:12pm
--- OUTSIDE RECORDS SUMMARY | 2025-07-03 10:01 | XMS_ITS | Encounter Summary ---
Author Organization [facility] Address [address] [place] [address] Care Team Providers Care Abstract Maker Name Role Phone Nikunj Yanez MD Primary Care Provider [phone] Encounter Details DateTypeDepartmentCare Team (Latest Contact Info)Lbscxgaaefi67/23/2025Telephone [address] [address] Cristina Mejia MA Social History Tobacco UseTypesPacks/DayYears UsedDateSmoking Tobacco: FormerCigarettesQuit: 2010Smokeless Tobacco: NeverSex and Gender InformationValueDate RecordedSex Assigned at BirthNot on fileLegal WieEjqn3803/03/2022 9:07 PM EDTGender Identity Not on fileSexual OrientationNot on filedocumented as of this encounter Miscellaneous Notes * Telephone Encounter - Cristina Mejia MA - 06/27/2025 1:02 PM EDT MD Cristina Bean MA Lipids and AST ALT are very good, continue current medications and recheck in 6 months LVM to advise patient of his lab results per Dr. Walker request. documented in this encounter Plan of Treatment DateTypeDepartmentCare Team (Latest Contact Info)Dihmegdjfqn37/08/2025 1:00 PM ESTOffice Visit [facility] [address] [place] [address] Jr Manzano MD [address] [place] [address] documented as of this encounter Visit Diagnoses Not on filedocumented in this encounter Care Teams Team MemberRelationshipSpecialtyStart DateEnd Date Nikunj Yanez MD [address] [place] [address] PCP - GeneralFamily Cwyvpycc44/6/24documented as of this encounter
--- OUTSIDE RECORDS SUMMARY | 2025-07-03 10:01 | XMS_ITS | Clinical Summary ---
Author Organization [facility] Address [address] [place] [address] Care Team Providers Care Vac Press Operator Name Role Phone Nikunj Yanez MD Primary Care Provider [phone] Allergies No known active allergies Medications MedicationSigDispense QuantityRefillsLast FilledStart DateEnd DateStatus clarithromycin (Biaxin) 250 mg tablet 02/21/2024ctive montelukast (Singulair) 10 mg tablet Take 10 mg by mouth in the morning.02/23/2024ctive oxyCODONE-acetaminophen (Percocet) 5-325 mg tablet Take 1 tablet every 6 hours by oral route for 30 days.Active cetirizine (ZyrTEC) 10 mg tablet Take 10 mg by mouth in the morning.Active testosterone cypionate (Depo-Testosterone) 200 mg/mL injection Inject 100 mg into the shoulder, thigh, or buttocks every 28 (twenty-eight) days.12/12/2023ctive atorvastatin (Lipitor) 40 mg tablet Indications:Hyperlipidemia, unspecified hyperlipidemia typeTake 1 tablet (40 mg) by mouth in the morning. 90 tablet 5009/19/2025ctive aspirin 81 mg EC tablet Indications:Coronary artery disease involving ione coronary artery of ione heart without angina pectorisTake 1 tablet (81 mg) by mouth in the morning. /ctive atenolol (Tenormin) 25 mg tablet Indications:Benign hypertensive 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 Take 1 tablet (25 mg) by mouth once daily as directed. 90 tablet 306///ctive Active Problems ProblemNoted DateDiagnosed DateDecreased psljwz8908/09/2024Hypopituitarism 08/09/2024aralyzed mbvubcmsecdwv31/02/2024oronary artery disease involving ione coronary artery of ione heart without angina xvajhxko00/10/2024enign hypertensive heart disease without congestive heart xdfjtud6905/15/2024hest pain 05/14/2024hronic pain vqaudnlv17/09/2024 Overview (05/14/2024): Last Assessment & Plan: R/T severe lumbar stenosis Pain management referred [facility] for further management. Still following with Pain Management- Dr. Stacy. Had epidural last Tuesday- feels pain is well managed since. Taking Oxycodone Q6H PRN- Pain Management prescribes. Dyspnea on fmbygcfa87/09/2024lass 1 obesity due to excess calories without [...] next OV. Encounter for Medicare annual wellness exam08/20/2023 Overview (05/14/2024): Last Assessment & Plan: Patient [...] to GI for Colonoscopy. Chronic seasonal allergic /14/2023 Overview (05/14/2024): Last Assessment & Plan: Cetirizine D and Flonase daily. Feels symptoms are well managed. Continue current regimen. Last Assessment & Plan: Poorly controlled symptoms - has sinus pressure, nasal congestion and rhinorrhea. Switch to zyrtec-pseudo Discontinue cindy. Ikjqowskemfsec67/14/2023 Overview (05/14/2024): Last Assessment & Plan: Currently taking Atorvastatin 20mg Denies myalgias. Most recent Lipid Panel WNL. Continue current regimen; Hypertensive /14/2023 Overview (05/14/2024): Last Assessment & Plan: Currently [...] breath, swelling in extremities. Primary hypogonadism in male08/18/2023 Overview (05/14/2024): Last Assessment & Plan: Follows Endocrinology for testosterone replacement therapy. Weight gain08/18/2023 Overview (05/14/2024): Last Assessment & Plan: Patient [...] to new medications. Impingement syndrome of shoulder gsbung87/03/2017Chronic obstructive lung ahbhyvs2611/24/2016 Overview (05/14/2024): Last Assessment & Plan: Does not follow pulmonolgy; Has not had any PFT's recently. Takes Singulair. No inhalers at this time. States inhalers were too expensive. Feels his symptoms are well managed. Except in excess humidity and warmer weather. Obstructive sleep apnea etlspkni60/22/2017 Encounters DateTypeDepartmentCare SniwAopnpqqxuda94/23/2025Telephone [address] [place] [address] Cristina Mejia MA from Last 3 Months Family History Medical HistoryRelationNameCommentsCoronary artery diseaseBrotherDiabetesBrother HypertensionBrotherHypertensionFatherDiabetesMotherHypertensionMotherRelation NameStatusCommentsBrotherFatherMother Social History Tobacco UseTypesPacks/DayYears UsedDateSmoking Tobacco: FormerCigarettesQuit: 2010Smokeless Tobacco: Never Tobacco Cessation:Counseling Given: Not Answered Sex and Gender InformationValueDate RecordedSex Assigned at BirthNot on file Legal PwmUqyn4403/03/2022 9:07 PM EDTGender IdentityNot on fileSexual Orientation Not on file Last Filed Vital Signs Vital SignReadingTime TakenCommentsBlood Ahwlukwo408/8401/11/2025 10:14 AM EDT Jpszx683401/11/2025 10:14 AM EDTTemperature--Respiratory Rate--Oxygen Saturation 96%01/11/2025 10:06 AM EDTInhaled Oxygen Concentration--Ppiuby240 kg (244 lb) 01/11/2025 10:06 AM RWRSmpahz637.9 cm (6')01/11/2025 10:06 AM EDTBody Mass Index 33.0901/11/2025 10:06 AM EDT Plan of Treatment DateTypeDepartmentCare Team (Latest Contact Info)Flkykbxnaxr37/08/2025 1:00 PM ESTOffice Visit [facility] [address] [place] [phone] Jr Manzano MD [address] MS:[place] [address] Health MaintenanceDue DateLast DoneCommentsCT Fjziryzoaxwu1959FIT-DNA 1959FIT1959FOBT1959Medicare Annual Wellness (AWV)1960 Kfrrqkiyawqgp1959Depression Cthigrprm63/09/1971Pneumococcal Vaccine: 50+ Years (1 of 2 - PCV)1978Adult Jhnbtmj4103/13/1981Zoster Vaccines (1 of 2) 2009Fall Risk Yrpebdasd18/09/2024COVID-19 Vaccine (1 - season) 2025Influenza Vaccine (#1)05/06/20252839Tbwdxpkjjec08 Colorectal Cancer Dfwuwykfj31/27/2034HIB VaccinesAged OutNo longer eligible based on patient's age to complete this topicHPV VaccinesAged OutNo longer eligible based on patient's age to complete this topicIPV VaccinesAged OutNo longer eligible based on patient's age to complete this topicMeningococcal B VaccineAged OutNo longer eligible based on patient's age to complete this topic Meningococcal VaccineAged OutNo longer eligible based on patient's age to complete this topicRotavirus VaccinesAged OutNo longer eligible based on patient's age to complete this topic Insurance Care Teams Team MemberRelationshipSpecialtyStart DateEnd Date Nikunj Yanez MD [address] [place] [address] [facility]CP - [facility]Mercyone [facility] Centerly Qkbhorbs09/6/24
--- OUTSIDE RECORDS SUMMARY | 2025-07-03 10:01 | XMS_ITS | Encounter Summary ---
Author Organization [facility] Address [address] [place] [address] Care Team Providers Care Level Vial Curvature Gauger Name Role Phone Rosa Barker MD Unavailable Shaikh CURRY Malik Primary Care Provider [phone] Nikunj Yanez MD Primary Care Provider [phone] Sandee Santoyo NP Unavailable Encounter Details DateTypeDepartmentCare Team (Latest Contact Info)Imistbbgaml05/01/2024Clinisync Result Encounter [facility] External Department Unsolicited Provider, Generic External Data Social History Tobacco UseTypesPacks/DayYears UsedDateSmoking Tobacco: FormerCigarettes Smokeless Tobacco: NeverAlcohol UseStandard Drinks/WeekCommentsNever0 (1 standard drink = 0.6 oz pure alcohol)B1300 Health LiteracyAnswerDate RecordedHow often do you need to have someone help you when you read instructions, pamphlets, or other written material from your doctor or pharmacy?Patient declines to dmxwqli0306/05/2024Humiliation, Afraid, Rape, and Kick questionnaire AnswerDate RecordedWithin the last year, have you been afraid of your partner or ex-partner?No08/18/2023Within the last year, have you been humiliated or emotionally abused in other ways by your partner or ex-partner?No08/18/2023 Within the last year, have you been kicked, hit, slapped, or otherwise physically hurt by your partner or ex-partner?No08/18/2023Within the last year, have you been raped or forced to have any kind of sexual activity by your part ner or ex-partner?No08/18/2023Social Connection and Isolation PanelAnswerDate RecordedIn a typical week, how many times do you talk on the phone with family, friends, or neighbors?Never06/05/2024How often do you get together with friends or relatives?Twice a week06/05/2024How often do you attend amish or taoist services?More than 4 times per year06/05/2024o you belong to any clubs or organizations such as amish groups, unions, fraVendscreen or athletic groups, or school groups?No06/05/2024How often do you attend meetings of the clubs or organizations you belong to?Never06/05/2024re you , , , , never , or living with a partner?Ouehzuxi20/01/2024UDIT-C AnswerDate RecordedQ1: How often do you have a drink containing alcohol?Never 06/05/2024Q2: How many drinks containing alcohol do you have on a typical day when you are drinking?Patient does not drink06/05/2024Q3: How often do you have six or more drinks on one occasion?Never06/05/2024Overall Financial Resource Strain (CARDIA)AnswerDate RecordedHow hard is it for you to pay for the very basics like food, housing, medical care, and heating?Not hard at all06/05/2024 PHQ-2AnswerDate RecordedPatient Health Questionnaire-2 Wqiuu740[facility] [place] of Occupational Health - Occupational Stress QuestionnaireAnswerDate RecordedDo you feel stress - tense, restless, nervous, or anxious, or unable to sleep at night because yourmind is troubled all the time - these days?Patient /01/2024Exercise Vital SignAnswerDate RecordedOn average, how many days per week do you engage in moderate to strenuous exercise (like a brisk wal k)?0 days06/05/2024On average, how many minutes do you engage in exercise at this level?Patient vrchsedt50/01/2024Hunger Vital SignAnswerDate RecordedWithin the past 12 months, you worried that your food would run out before you got the money to buymore.Never true06/05/2024Within the past 12 months, the food you bought just didn't last and you didn't have money to get more.Never true 06/05/2024RAPARE - TransportationAnswerDate RecordedIn the past 12 months, has lack of transportation kept you from medical appointments or from getting medications?No06/05/2024In the past 12 months, has lack of transportation kept you from meetings, work, or from getting things needed for daily living?No 06/05/2024Housing Stability Vital SignAnswerDate RecordedIn the last 12 months, was there a time when you were not able to pay the mortgage or rent on time?No 08/18/2023In the last 12 months, how many places have you lived?In the last 12 months, was there a time when you did not have a steady place to sleep or slept in chaffeeelter (including now)?No08/18/2023Housing Stability Vital SignAnswerDate RecordedIn the last 12 months, was there a time when you were not able to pay the mortgage or rent on time?No06/05/2024Number of Times Moved in the Last YearNot on file06/05/2024t any time in the past 12 months, were you homeless or living in a prison (including now)?No06/05/2024Sex and Gender InformationValueDate RecordedSex Assigned at BirthNot on fileLegal SexMale 11/17/2022 7:09 PM EDTGender IdentityNot on fileSexual OrientationNot on file documented as of this encounter Functional Status * AUDIT-C ScoreAnswerDate of RmwcjkreykIsrwre641/01/2024 5:08 PM Mayi, Generic * Q1: How often do you have a drink containing alcohol?AnswerDate of Assessment KfnibxOvahv38/01/2024 5:08 PM Mayi Generic * Q2: How many drinks containing alcohol do you have on a typical day when you are drinking?AnswerDate of AssessmentAuthorPatient does not drink06/05/2024 5:08 PM Mayi, Generic * Q3: How often do you have six or more drinks on one occasion?AnswerDate of ZtyfvcaqugAiibfvThour95/01/2024 5:08 PM Fletcher See * Over the past 2 weeks, how often have you been bothered by any of the following problems?QuestionAnswerDate of AssessmentAuthorLittle interest or pleasure in doing thingsNot at all01/25/2025 10:00 AM Misti Felix MA Feeling down, depressed, or hopelessNot at all01/25/2025 10:00 AM Misti Felix MAPatient Health Questionnaire-2 Dpklt099 10:00 AM Misti Felix MA * QuestionAnswerDate of AssessmentAuthorTrouble falling or staying asleep, or sleeping too muchSeveral days01/25/2025 10:00 AM Misti Felix MAFeeling tired or having little energySeveral days01/25/2025 10:00 AM Misti Felix MAPoor appetite or overeatingNot at all01/25/2025 10:00 AM Misti Felix MAFeeling bad about yourself - or that you are a failure or have let yourself or your family downNot at all01/25/2025 10:00 AM Misti Felix MATrouble concentrating on things, such as reading the newspaper or watching television Not at all01/25/2025 10:00 AM Misti Felix MAMoving or speaking so slowly that other people could have noticed? Or the opposite - being so fidgety or restless that you have been moving around a lot more than usual.Not at all 01/25/2025 10:00 AM Misti Felix MAThoughts that you would be better off or hurting yourself in some wayNot at all01/25/2025 10:00 AM Misti Felix MAPatient Health Questionnaire-9 Uairt420 10:00 AM Misti Felix MA documented as of this encounter Plan of Treatment DateTypeDepartmentCare Team (Latest Contact Info)Qyejcfvezya25/08/2025 10:20 AM ESTOffice Visit [facility] [address] [place] [address] Husam Muñoz MD [address] [place] [address] documented as of this encounter Procedures Procedure NamePriorityDate/TimeAssociated DiagnosisCommentsXR HIPS BILATERAL 2 VW WITH OR WITHOUT VNPAGP6712/05/2023 10:52 AM EDT documented in this encounter Results * XR hips bilateral 2 views (12/05/2023 10:52 AM EDT)Anatomical RegionLaterality ModalityLower Extremities, HipBilateralRadiographic ImagingSpecimen (Source) Anatomical Location / LateralityCollection Method / VolumeCollection Time Received Time12/05/2023 10:52 AM EDT Narrative 12/05/2023 10:55 AM EDT [facility] ?[address] ? [place] [address] ?XRay Report ? Signed ? Patient: PETE,RIGO N ?MR#: [id number] ?? : 1960 ?Acct:[id number] ?? Age/Sex: 63 / M ?ADM Date: 12/03/23 ?? Loc: RAD ? Attending Dr: Pedro Del Real ARABIC PROFESSOR ? Ordering Physician: Pedro Del Real NP ?? Date of Service: 12/03/23 ?? Procedure(s): XR hip LUANN ?? Accession Number(s): [id number] ? cc: Shaikh Meka Malik; Pedro Del Real NP ? [facility] ? [address] ? [place] [address] ? Patient Name: ?? RIGO PETE ? MRN: [id number] ? date: 1960 ?Sex: M ?? Assigned Patient Location: RAD ?? Current Patient Location: ? Accession/Order Number: [id number] ?? Exam Date: 12/03/2023 ??15:20 ?Report Date: 12/05/2023 ??10:52 ? At the request of: ?? PEDRO ??GT ? Procedure: ??XR hip LUANN ? PROCEDURE: XR hip LUANN ? HISTORY: Bilateral hip pain ? COMPARISON: None. ? FINDINGS: ?? BONES:Tiny degenerative osteophytes along superior acetabulum bilaterally. No ?? fracture, dislocation, bone lesion. No significant joint space narrowing or ?? articular surface irregularity. ?? SOFT TISSUES:No visible soft tissue swelling. ?? EFFUSION:None visible. ?? OTHER: Negative. ? XR/XR hip LUANN ?? IMPRESSION: ? 1. No acute abnormality. ?? 2. Minimal degenerative changes. ? Electronically authenticated by: KIAN ??RINA ?? Date: 12/05/2023 ??10:52 ? Dictated By: ?Kian Tinajero M.D. ? Signed By: ?12/05/231054 ? DD/ 1052 ? TD/TT: ? Brass Roller: Procedure Note Radiology, Radiologist, MD - 12/08/2023 [place] [address] XRay Report Signed Patient: RIGO PETE NMR#: [id number] : 1960cct:[id number] Age/Sex: 63 / MADM Date: 12/03/23 Loc: [facility] Attending Dr: Pedro Del Real NP Ordering Physician: Pedro Del Real NP Date of Service: 12/03/23 Procedure(s): XR hip LUANN Accession Number(s): [id number] cc: Shaikh Meka Malik; Pedro Del Real NP The [address] [address] Patient Name: RIGO PETE MRN: [id number] date: 1960 Sex: M Assigned Patient Location: [facility] Current Patient Location: Accession/Order Number: [id number] Exam Date: 12/03/2023 15:20 Report Date: 12/05/2023 [...] M.D. Signed By:12/05/23 1055 DD/ 1052 TD/TT: Brass Roller: Authorizing ProviderResult TypeResult StatusGeneric External Data ProviderIMG XR PROCEDURESFinal Result documented in this encounter Visit Diagnoses Not on filedocumented in this encounter Care Teams Team MemberRelationshipSpecialtyStart DateEnd Date Rosa Barker MD [address] [facility] [address] [place] [address] PCP - Devoted09/05/22 Shaikh Malik MD [address] [facility] [address] [place] [address] PCP - GeneralInternal Medicine/12/27 Nikunj Yanez MD [address] [facility] [address] [place] [address] PCP - GeneralFamily Medicine04/09/24 Sandee Santoyo NP [address] [facility] [address] [place] [address] Nurse PractitionerFamily Medicine/documented as of this encounter
--- OUTSIDE RECORDS SUMMARY | 2025-07-03 10:01 | XMS_ITS | Encounter Summary ---
Author Organization [facility] Address [address] [place] [address] Care Team Providers Care Therapist Physical Name Role Phone Rosa Barker MD Unavailable Shaikh CURRY Malik Primary Care Provider [phone] Nikunj Yanez MD Primary Care Provider [phone] Sandee Santoyo NP Unavailable [phone] Encounter Details DateTypeDepartmentCare Team (Latest Contact Info)Mpipqbjuegq27/01/2024Clinisync Result Encounter [facility] External Department Unsolicited Provider, Generic External Data Social History Tobacco UseTypesPacks/DayYears UsedDateSmoking Tobacco: FormerCigarettes Smokeless Tobacco: NeverAlcohol UseStandard Drinks/WeekCommentsNever0 (1 standard drink = 0.6 oz pure alcohol)B1300 Health LiteracyAnswerDate RecordedHow often do you need to have someone help you when you read instructions, pamphlets, or other written material from your doctor or pharmacy?Patient declines to eylshuk5506/05/2024Humiliation, Afraid, Rape, and Kick questionnaire AnswerDate RecordedWithin [...] relatives?Twice a week06/05/2024How often do you attend temple or rastafari services?More than 4 times per year06/05/2024o you belong to any clubs or organizations such as temple groups, unions, fraEuphoria App or athletic groups, or school groups?No06/05/2024How often do you attend meetings of the clubs or organizations you belong to?Never06/05/2024re you , , , , never , or living with a partner?Fmqzngte71/01/2024UDIT-C AnswerDate RecordedQ1: How often do you have [...] hard at all06/05/2024 PHQ-2AnswerDate RecordedPatient Health Questionnaire-2 Gpgus183Fin[facility] [place] of Occupational Health - Occupational Stress QuestionnaireAnswerDate RecordedDo you feel stress - tense, restless, nervous, or anxious, or unable to sleep at night because yourmind is troubled all the time - these days?Patient ftawfljf53/01/2024Exercise Vital SignAnswerDate RecordedOn average, how many days per week do you engage in moderate to strenuous exercise (like a brisk wal k)?0 days06/05/2024On average, how many minutes do you engage in exercise at this level?Patient uledexuy71/01/2024Hunger Vital SignAnswerDate RecordedWithin the past 12 months, [...] steady place to sleep or slept in sound beachelter (including now)?No08/18/2023Housing Stability Vital SignAnswerDate RecordedIn the last 12 months, was there a time when you were not able to pay the mortgage or rent on time?No06/05/2024Number of Times Moved in the Last YearNot on file06/05/2024t any time in the past 12 months, were you homeless or living in a [place] (including now)?No06/05/2024Sex and Gender InformationValueDate RecordedSex Assigned at BirthNot on fileLegal SexMale 11/17/2022 7:09 PM EDTGender IdentityNot on fileSexual OrientationNot on file documented as of this encounter Functional Status * AUDIT-C ScoreAnswerDate of ZwvvwlhzljYrpsuf375/01/2024 5:08 PM Mayi, Generic * Q1: How often do you have a drink containing alcohol?AnswerDate of Assessment AaorpiHrgmu61/01/2024 5:08 PM Mayi Generic * Q2: How many drinks containing alcohol do you have on a typical day when you are drinking?AnswerDate of AssessmentAuthorPatient does not drink06/05/2024 5:08 PM Mayi, Generic * Q3: How often do you have six or more drinks on one occasion?AnswerDate of UfhcnwpchdShrdwdNqeca25/01/2024 5:08 PM Fletcher See * Over the past 2 weeks, how often have you been bothered by any of the following problems?QuestionAnswerDate of AssessmentAuthorLittle interest or pleasure in doing thingsNot at all01/25/2025 10:00 AM Misti Felix MA Feeling down, depressed, or hopelessNot at all01/25/2025 10:00 AM Misti Felix MAPatient Health Questionnaire-2 Qhinf531 10:00 AM Misti Felix MA * QuestionAnswerDate [...] 10:00 AM Misti Felix MAPatient Health Questionnaire-9 Uhsku417 10:00 AM Misti Felix MA documented as of this encounter Plan of Treatment DateTypeDepartmentCare Team (Latest Contact Info)Qinhzkweham16/08/2025 10:20 AM ESTOffice Visit [facility] [address] [place] [address] Husam Muñoz MD [address] [place] [address] documented as of this encounter Procedures Procedure NamePriorityDate/TimeAssociated DiagnosisCommentsXR KNEE 4+ VIEWS LEFT 12/05/2023 12:49 PM EDT documented in this encounter Results * XR knee 4+ views left (12/05/2023 12:49 PM EDT)Anatomical RegionLaterality ModalityLower Extremities, KneeLeftRadiographic ImagingSpecimen (Source) Anatomical Location / LateralityCollection Method / VolumeCollection Time Received Time12/05/2023 12:49 PM EDT Narrative 12/05/2023 12:52 PM EDT [facility] ?[address] ? [place] [address] ?XRay Report ? Signed ? Patient: PETE,RIGO N ?MR#: [id number] ?? : 1960 ?Acct:[id number] ?? Age/Sex: 63 / M ?ADM Date: 12/03/23 ?? Loc: RAD ? Attending Dr: Pedro Del Real PROSPECTING DRILLER ? Ordering Physician: Pedro Del Real NP ?? Date of Service: 12/03/23 ?? Procedure(s): XR knee LT 4V ?? Accession Number(s): [id number] ? cc: Shaikh Meka Malik; Pedro Del Real NP ? [facility] ? [address] ? [place] [address] ? Patient Name: ?? RIGO PETE ? MRN: [id number] ? date: 1960 ?Sex: M ?? Assigned Patient Location: RAD ?? Current Patient Location: RAD ?? Accession/Order Number: [id number] ?? Exam Date: 12/03/2023 ??15:20 ?Report Date: 12/05/2023 ??12:49 ? At the request of: ?? PEDRO ??GT ? Procedure: ??XR knee LT 4V ? PROCEDURE: XR knee LT 4V ? HISTORY: left knee pain , chronic ? COMPARISON: None. ? FINDINGS: ?? BONES:Slight narrowing of the lateral joint space and mild lateral subluxation ? of the tibial plafond in relation to the femoral condyles. Small to moderate ?? degenerative osteophytes along the articular margins of all 3 compartments. No ? fracture, dislocation, bone lesion. ?? SOFT TISSUES:No visible soft tissue swelling. ?? EFFUSION:None visible. ?? OTHER: Negative. ? XR/XR knee LT 4V ?? IMPRESSION: ? 1. No acute bone abnormality. ?? 2. 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 ? Electronically authenticated by: KIAN ??RINA ?? Date: 12/05/2023 ??12:49 ? Dictated By: ?Kian Tinajero M.D. ? Signed By: ?12/05/232 ? DD/ 1249 ? TD/TT: ? Film Historian: Procedure Note Radiology, Radiologist, - 12/08/2023 [place] [address] XRay Report Signed Patient: RIGO PETE NMR#: [id number] : 1960cct:[id number] Age/Sex: 63 / MADM Date: 12/03/23 Loc: [facility] Attending Dr: Pedro Del Real NP Ordering Physician: Pedro Del Real NP Date of Service: 12/03/23 Procedure(s): XR knee LT 4V Accession Number(s): [id number] cc: Shaikh Meka Malik; Pedro Del Real NP The [place] [id number] Patient Name: RIGO PETE MRN: [id number] date: 1960 Sex: M Assigned Patient Location: [facility] Current Patient Location: RAD Accession/Order Number: [id number] Exam Date: 12/03/2023 15:20 Report Date: 12/05/2023 [...] M.D. Signed By:12/05/23 1252 DD/ 1249 TD/TT: Film Historian: Authorizing ProviderResult TypeResult StatusGeneric External Data ProviderIMG XR PROCEDURESFinal Result documented in this encounter Visit Diagnoses Not on filedocumented in this encounter Care Teams Team MemberRelationshipSpecialtyStart DateEnd Date Rosa Barker MD [address] [address] PCP - Devoted09/05/22 Shaikh Malik MD [address] [facility] [address] [place] [address] PCP - GeneralInternal Medicine/12/27 Nikunj Yanez MD [address] [facility] [address] [place] [address] PCP - GeneralFamily Medicine04/09/24 Sandee Santoyo NP [address] [facility] [address] [place] [address] Nurse PractitionerFamily Medicine/documented as of this encounter
--- OUTSIDE RECORDS SUMMARY | 2025-07-03 10:01 | XMS_ITS | Encounter Summary ---
Author Organization [facility] Address [address] [place] [address] Care Team Providers Care Division Plant Engineer Name Role Phone Rosa Barker MD Unavailable Nikunj Yanez MD Primary Care Provider [phone] Sandee Santoyo NP Unavailable Encounter Details DateTypeDepartmentCare Team (Latest Contact Info)Qdwfqdzfpkp40/20/2024Clinisync Result Encounter [facility] External Department Unsolicited Provider, Generic External Data Social History Tobacco UseTypesPacks/DayYears UsedDateSmoking Tobacco: FormerCigarettesPassive Smoke Exposure: PastSmokeless Tobacco: NeverAlcohol UseStandard Drinks/Week CommentsNever0 (1 standard drink = 0.6 oz pure alcohol)B1300 Health Literacy AnswerDate RecordedHow often do you need to have someone help you when you read instructions, pamphlets, or other written material from your doctor or pharmacy? Patient declines to nyasgoo7506/05/2024Humiliation, Afraid, Rape, and Kick questionnaireAnswerDate RecordedWithin the last year, have you been afraid of your partner or ex-partner?No08/18/2023Within the last year, have you been humiliated or emotionally abused in other ways by your partner or ex-partner?No 08/18/2023Within the last year, have you been kicked, [...] relatives?Twice a week06/05/2024How often do you attend catholic or jain services?More than 4 times per year06/05/2024o you belong to any clubs or organizations such as catholic groups, unions, fraternal or athletic groups, or school groups?No06/05/2024How often do you attend meetings of the clubs or organizations you belong to?Never06/05/2024re you , , , , never , or living with a partner?Xouybpic78/01/2024UDIT-C AnswerDate RecordedQ1: How often do you have [...] hard at all06/05/2024 PHQ-2AnswerDate RecordedPatient Health Questionnaire-2 Fcscc857[facility] [place] [facility] - Occupational Stress QuestionnaireAnswerDate RecordedDo you feel stress - tense, restless, nervous, or anxious, or unable to sleep at night because yourmind is troubled all the time - these days?Patient jvuzfmrh11/01/2024Exercise Vital SignAnswerDate RecordedOn average, how many days per week do you engage in moderate to strenuous exercise (like a brisk wal k)?0 days06/05/2024On average, how many minutes do you engage in exercise at this level?Patient pxayysvd83/01/2024Hunger Vital SignAnswerDate RecordedWithin the past 12 months, [...] steady place to sleep or slept in ashelter (including now)?No08/18/2023Housing Stability Vital SignAnswerDate RecordedIn the last 12 months, was there a time when you were not able to pay the mortgage or rent on time?No06/05/2024Number of Times Moved in the Last YearNot on file06/05/2024t any time in the past 12 months, were you homeless or living in a correction (including now)?No06/05/2024Sex and Gender InformationValueDate RecordedSex Assigned at BirthNot on fileLegal SexMale 11/17/2022 7:09 PM EDTGender IdentityNot on fileSexual OrientationNot on file documented as of this encounter Functional Status * Over the past 2 weeks, how often have you been bothered by any of the following problems?QuestionAnswerDate of AssessmentAuthorLittle interest or pleasure in doing thingsNot at all01/25/2025 10:00 AM Misti Felix MA Feeling down, depressed, or hopelessNot at all01/25/2025 10:00 AM Misti Felix MAPatient Health Questionnaire-2 Aikyb644 10:00 AM Misti Felix MA * QuestionAnswerDate [...] downNot at all01/25/2025 10:00 AM Misti Felix MATroubshira concentrating on things, such as reading the newspaper or watching television Not at all01/25/2025 10:00 AM Misti Felix, MAMoving or speaking so slowly that other people could have noticed? Or the opposite - being so fidgety or restless that you have been moving around a lot more than usual.Not at all 01/25/2025 10:00 AM Misti Felix MAThoughts that you would be better off or hurting yourself in some wayNot at all01/25/2025 10:00 AM Misti Felix MAPatient Health Questionnaire-9 Tghnn610 10:00 AM Misti Felix MA documented as of this encounter Plan of Treatment DateTypeDepartmentCare Team (Latest Contact Info)Bvmuakwqjfg89/08/2025 10:20 AM ESTOffice Visit [facility] [address] [place] [address] Husam Muñoz MD [address] [place] [address] documented as of this encounter Procedures Procedure NamePriorityDate/TimeAssociated DiagnosisCommentsRT PULMONARY FUNCTION TEST08/24/2024 8:44 AM EST documented in this encounter Results * RT PULMONARY FUNCTION TEST (08/24/2024 8:44 AM EST)Anatomical RegionLaterality ModalityOtherSpecimen (Source)Anatomical Location / LateralityCollection Method / VolumeCollection TimeReceived Time08/24/2024 8:44 AM EST Narrative 08/27/2024 7:49 AM EST [facility] ?[address] ? [place] [address] ? Respiratory Report ? Signed ? Patient: PETE,RIGO N ?MR#: [id number] ?? : 1960 ?Acct:[id number] ?? Age/Sex: 64 / M ?ADM Date: 12/20/24 ?? Loc: CT ? Attending Dr: Aly Mosley D.O. ? Ordering Physician: Aly Mosley D.O. ?? Date of Service: 08/24/24 ?? Procedure(s): RT pulmonary function test ?? Accession Number(s): [id number] ? cc: ?[facility] ? Test Date: ?2024-08-24 ?? Pat Name: ? RIGO BLACKENSHIP ?Department: ? Room: ? - ?? Gender: ? Male ? Water Ski Assembler: ?? Emily Mckenna RRT ?? : ?1960 ? Requested By: Aly Mosley ?? Order Number: [id number] ?Reading MD: ?? Aly Mosley ? Interpretive Statements ?? Pulmonary function testing was completed according to ATS criteria. Findings ?? were considered accurate and reproducible. Both pre- and post-bronchodilator ?? values utilized for spirometry. ? Spirometry (based on pre-bronchodilator values): ?? -FEV1/FVC: Normal @ 81% ?? -FEV1: Reduced @ 75% ?? -FVC: Mild-moderately reduced @ 70% ?? -There is no significant bronchodilator response. ? Lung volumes by plethysmography (based on pre-bronchodilator values): ?? -RV: Reduced @ 65% ?? -TLC: Moderately reduced @ 65% ? Diffusion capacity: ?? -DLCO: Moderate reduction @ 65% when corrected for Hb 17.6g/dL ? Flow-volume loop: ?? -Mild obstructive pattern ? Prior testing 05/16/2018: ?? -FEV1: 57% ?? -T% ?? -DLCO: 66% ? Impressions: ?? -Spirometry suggests mild-moderate restriction, confirmed with a moderately ?? reduced TLC. ??There is also a moderate diffusion capacity. ??PFT is consistent ?? with a restrictive process such as interstitial lung disease or ?? cardiopulmonary vascular disease. ??There also appears to be a secondary ?? polycythemia with Hb 17.6g/dL. ??When compared to prior PFT 05/16/2018, ?? spirometry has improved, without significant change in lung volumes or ?? diffusion capacity. ??Clinical correlation required. ? Electronically Signed On 08-27-2024 7:49:17 EST by Aly Mosley ? Dictated By: ?Aly Mosley D.O. ? Signed By: ?08/27/24 0749 ?08/27/2449 ? DD/ ? TD/TT: ? Letterer: Procedure Note Radiology, Radiologist, MD - 08/27/2024 [place] [address] Respiratory Report Signed Patient: RIGO PETE NMR#: [id number] : 9Acct:[id number] Age/Sex: 64 / MADM Date: 08/24/24 Loc: CT Attending Dr: Aly Mosley D.O. Ordering Physician: Aly Mosley D.O. Date of Service: 08/24/24 Procedure(s): RT pulmonary function test Accession Number(s): [id number] cc: [facility] Test Date: 2024-08-24 Pat Name: RIGO PETE Department: Room: - Gender: Male Water Ski Assembler: Emily Mckenna RRT : 1960 Requested By: Aly Mosley Order Number: [id number] Reading MD: Aly Mosley Interpretive Statements Pulmonary [...] By:08/27/24 0749 08/27/24 0749 DD/ 0844 TD/TT: Letterer: Authorizing ProviderResult TypeResult StatusGeneric External Data Provider CLINISYNC IMAGINGFinal Result documented in this encounter Visit Diagnoses Not on filedocumented in this encounter Care Teams Team MemberRelationshipSpecialtyStart DateEnd Date Rosa Barker MD [address] [address] PCP - [facility]09/05/22 Nikunj Yanez MD [address] [address] [facility] - [facility] Sandee Santoyo NP [address] [address] Nurse PractitionerFamily Medicine/documented as of this encounter
--- OUTSIDE RECORDS SUMMARY | 2025-07-03 10:01 | XMS_ITS | Encounter Summary ---
Author Organization [facility] Address [address] [place] [address] Care Team Providers Care Software Quality Assurance Engineer Name Role Phone Rosa Barker MD Unavailable Nikunj Yanez MD Primary Care Provider [phone] Sandee Cage NP Unavailable [phone] Encounter Details DateTypeDepartmentCare Team (Latest Contact Info)Maiofeumkeg57/21/2024Clinisync Result Encounter [facility] External Department Unsolicited Provider, Generic External Data Social History Tobacco UseTypesPacks/DayYears UsedDateSmoking Tobacco: FormerCigarettesPassive Smoke Exposure: PastSmokeless Tobacco: NeverAlcohol UseStandard Drinks/Week CommentsNever0 (1 standard drink = 0.6 oz pure alcohol)B1300 Health Literacy AnswerDate RecordedHow often do you need to have someone help you when you read instructions, pamphlets, or other written material from your doctor or pharmacy? Patient declines to thgldsd3106/05/2024Humiliation, Afraid, Rape, and Kick questionnaireAnswerDate RecordedWithin the [...] relatives?Twice a week06/05/2024How often do you attend hinduism or adventist services?More than 4 times per year06/05/2024o you belong to any clubs or organizations such as hinduism groups, unions, fraternal or athletic groups, or school groups?No06/05/2024How often do you attend meetings of the clubs or organizations you belong to?Never06/05/2024re you , , , , never , or living with a partner?Nbfqweax14/01/2024UDIT-C AnswerDate RecordedQ1: How often do you have [...] hard at all06/05/2024 PHQ-2AnswerDate RecordedPatient Health Questionnaire-2 Mrfuc215Finmountain point medical center [place] of Occupational Health - Occupational Stress QuestionnaireAnswerDate RecordedDo you feel stress - tense, restless, nervous, or anxious, or unable to sleep at night because yourmind is troubled all the time - these days?Patient ioecnwal69/01/2024Exercise Vital SignAnswerDate RecordedOn average, how many days per week do you engage in moderate to strenuous exercise (like a brisk wal k)?0 days06/05/2024On average, how many minutes do you engage in exercise at this level?Patient /01/2024Hunger Vital SignAnswerDate RecordedWithin the past 12 months, [...] homeless or living in a residential (including now)?No06/05/2024Sex and Gender InformationValueDate RecordedSex Assigned [...] 10:00 AM Misti Felix MAPatient Health Questionnaire-2 Kfzyn885 10:00 AM Misti Felix MA * QuestionAnswerDate [...] 10:00 AM Misti Felix MAPatient Health Questionnaire-9 Ouizr055 10:00 AM Misti Felix MA documented as of this encounter Plan of Treatment DateTypeDepartmentCare Team (Latest Contact Info)Cikmwmmacsb09/08/2025 10:20 AM ESTOffice Visit [facility] [address] [place] [address] Husam Muñoz MD [address] [place] [address] documented as of this encounter Procedures Procedure NamePriorityDate/TimeAssociated DiagnosisCommentsCT CHEST HIGH MZIUQBMBCD25/21/2024 6:00 AM EST documented in this encounter Results * CT CHEST HIGH RESOLUTION (08/25/2024 6:00 AM EST)Anatomical RegionLaterality ModalityRadiographic ImagingSpecimen (Source)Anatomical Location / Laterality Collection Method / VolumeCollection TimeReceived Time08/25/2024 6:00 AM EST Narrative 08/25/2024 6:03 AM EST [facility] ?[address] ? [place] [address] ? CT Scan Report ? Signed ? Patient: PETE,RIGO N ?MR#: [id number] ?? : 1960 ?Acct:[id number] ?? Age/Sex: 64 / M ?ADM Date: 12/20/24 ?? Loc: CT ? Attending Dr: Jayleen Ashford D.O. ? Ordering Physician: Jayleen Ashford D.O. ?? Date of Service: 08/24/24 ?? Procedure(s): CT chest high res ?? Accession Number(s): [id number] ? cc: SANDEE CAGE ? [facility] ? [address] ? [place] [address] ? Patient Name: ?? RIGO PETE ? MRN: [facility]:[id number] ? date: 1960 ?Sex: M ?? Assigned Patient Location: CT ?? Current Patient Location: ? Accession/Order Number: [id number] ?? Exam Date: 08/24/2024 ??08:09 ?Report Date: 08/25/2024 ??06:00 ? At the request of: ?? JAYLEEN ??MAKEDA ? Procedure: ??CT chest high res ? EXAMINATION: CT chest high res ? HISTORY: Other Pleural Conditions oral ? COMPARISON: No relevant comparison available. ? TECHNIQUE: Axial images were obtained at 10 mm intervals during inspiration ?? and ?? expiration in the supine and prone positions. No IV contrast given. Dose ?? reduction techniques were achieved by using automated exposure control and/or ?? adjustment of mA and/or kV according to patient size and/or use of iterative ?? reconstruction technique. ? FINDINGS: ?? LUNGS: Mild emphysematous changes. Prominent curvilinear stranding ?? opacities/scarring throughout the lungs, left greater than right. No ?? significant peripheral fibrosis. No air trapping or large bulla. No ?? significant ?? bronchiectasis or mucous plugging. Elevated left hemidiaphragm with herniation ? of fat through the diaphragm. ?? PLEURA: No mass, effusion, or pneumothorax. ?? JAKY: No mass or adenopathy. ?? MEDIASTINUM: No mass or adenopathy. ?? HEART: No significant enlargement or pericardial effusion.. Coronary arteries: ?? AORTA: No aneurysm.. ?? CHEST WALL: No mass or axillary adenopathy ?? LIMITED ABDOMEN: No suspicious findings. Limited images of the upper abdomen. ?? OTHER: Negative. ? CT/CT chest high res ?? IMPRESSION: ? 1. Stable chronic interstitial changes and scarring. Mild emphysematous ?? changes. No acute infiltrates, mucus plugging, bronchiectasis, or air ?? trapping. ?? 2. Grossly stable elevated left hemidiaphragm and herniation of fat through ?? the ?? diaphragm. ? Electronically authenticated by: KIAN ??RINA ?? Date: 08/25/2024 ??06:00 ? Dictated By: ?Kian Tinajero M.D. ? Signed By: ?08/25/24 0603 ? DD/ 0600 ? TD/TT: ? Transplant Rn: Procedure Note Radiology, Radiologist, MD - 08/25/2024 [place] [address] CT Scan Report Signed Patient: RIGO PETE NMR#: [id number] : 1960cct:[id number] Age/Sex: 64 / MADM Date: 08/24/24 Loc: CT Attending Dr: Jayleen Ashford D.O. Ordering Physician: Jayleen Ashford D.O. Date of Service: 08/24/24 Procedure(s): CT chest high res Accession Number(s): [id number] cc: SANDEE CAGE [address] [address] Patient Name: RIGO PETE MRN: [id number] date: 1960 Sex: M Assigned Patient Location: CT Current Patient Location: Accession/Order Number: [id number] Exam Date: 08/24/2024 08:09 Report Date: 08/25/2024 [...] Tinajero M.D. Signed By:08/25/24602 DD/ 9 TD/TT: Transplant Rn: Authorizing ProviderResult TypeResult StatusGeneric External Data ProviderIMG XR PROCEDURESFinal Result documented in this encounter Visit Diagnoses Not on filedocumented in this encounter Care Teams Team MemberRelationshipSpecialtyStart DateEnd Date Rosa Barker MD [address] [address] PCP - [facility]09/05/22 Nikunj Yanez MD [address] [address] [facility] Sandee Cage NP [address] [address] Nurse PractitionerFamily Medicine/documented as of this encounter
--- OUTSIDE RECORDS SUMMARY | 2025-07-03 10:01 | XMS_ITS | Clinical Summary ---
Author Organization [facility] Address [address] [place] [address] Care Team Providers Care Vehicle Assembler Name Role Phone Unavailable Primary Care Provider Unavailabl e Social History Tobacco UseTypesPacks/DayYears UsedDateSmoking Tobacco: Never AssessedSex and Gender InformationValueDate RecordedSex Assigned at BirthNot on fileLegal Sex Male10/08/2012 5:36 AM ESTGender IdentityNot on fileSexual OrientationNot on file Plan of Treatment Health MaintenanceDue DateLast DoneCommentsHEPATITIS C VIRUS NSXAZJBAN1960 ACBRQAZ77 1960TDAP (ADULT)1978LIPID GWBWPZXBE84/09/1999COLORECTAL CANCER SCREENING DWVZDYKJSL79/09/2004PNEUMOCOCCAL VACCINE SERIES (1 of 1 - PCV) 2009ZOSTER (SHINGLES) VACCINE (1 of 2)2009PROSTATE CANCER SCREENING FJFAHWIBLM45/09/2014BDOMINAL AORTIC ANEURYSM HIGH RISK FDTAXQ6303/13/2024OVID-19 VACCINE (1 - 2024- season)2025INFLUENZA VACCINE (#1)2025RSV VACCINE (1 - 1-dose 75+ series)2034HEP B VACCINEAged OutNo longer eligible based on patient's age to complete this topic
--- OUTSIDE RECORDS SUMMARY | 2025-07-03 10:01 | XMS_ITS | Clinical Summary ---
Author Organization [facility] Address [address] [place] [address] Care Team Providers Care Health/Safety Job Titles Name Role Phone Tonny Hernandez MD Unavailable [phone] Nikunj Yanez MD Unavailable [phone] Allergies No known active allergies Medications MedicationSigDispense QuantityRefillsLast FilledStart DateEnd DateStatus atenolol (TENORMIN) 25 mg tablet Take 25 mg by mouth once daily.Active atorvastatin (LIPITOR) 20 mg tablet Take 20 mg by mouth once daily.Active cetirizine-pseudoephedrine (ZYRTEC-D) 5-120 mg per tablet Take 1 tablet by mouth two times a day.Active clarithromycin (BIAXIN) 250 mg tablet Take 250 mg by mouth once daily.Active diazePAM (VALIUM) 10 mg tablet Take 10 mg by mouth.04/02/2024ctive fluticasone (FLONASE) 50 mcg/actuation nasal spray 2 Sprays.03/15/2023ctive meloxicam (MOBIC) 15 mg tablet Take 15 mg by mouth.04/10/2024ctive montelukast (SINGULAIR) 10 mg tablet Take 10 mg by mouth once daily.Active oxyCODONE-acetaminophen (PERCOCET) 5-325 mg tablet Take 1 tablet by mouth four times a day as needed.Active testosterone cypionate (DEPO-TESTOSTERONE) 200 mg/mL injection Inject 100 mg intramuscularly every 4 weeks.12/12/2023ctive zonisamide (ZONEGRAN) 50 mg capsule 50 mg.Active Encounters DateTypeDepartmentCare JkagWatxainjdfq88/23/2025 4:20 PM EDTOffice Visit Neurosurgery [address] [place] [address] Juan Salazar MD Spinal stenosis of cervical region (Primary Dx); Spinal stenosis of lumbar region with neurogenic qsjqugjakcnl98/31/2025 7:30 AM EDTOffice Visit Orthopaedics [address] [place] [address] Troy Evans DO Primary osteoarthritis of left hip (Primary Dx)04/04/20254903Ifbpfx50/29/2025 12:00 PM EDTOffice Visit Orthopaedics [address] [place] [address] Denver Leonardo MD Primary osteoarthritis of left hip (Primary Dx)04/02/2025 11:15 AM EDT - 04/02/2025 11:59 PM EDTHospital Encounter Radiology [address] [place] [address] Pain [R52] Discharge Disposition: Homefrom Last 3 Months Social History Tobacco UseTypesPacks/DayYears UsedDateSmoking Tobacco: FormerCigarettes Smokeless Tobacco: NeverArea Deprivation IndexAnswerDate RecordedNational Score (1-100), lower number is lower bxgn030305/31/2024State Score (1-10), lower number is lower aypw016ata from: https://www.neighborhoodatlas.medicine.[facility].edu/. Last address used for [address]/31/2024Sex and Gender InformationValueDate Recorded Sex Assigned at BirthNot on fileLegal FvsOfip15/02/2012 9:51 AM ESTGender IdentityNot on fileSexual OrientationNot on file Last Filed Vital Signs Vital SignReadingTime TakenCommentsBlood Jweameis556/7109 3:53 PM EDT Dpeda531805/28/2025 3:53 PM EDTTemperature--Respiratory Rate--Oxygen Vxzvaemxbl20% 05/28/2025 3:53 PM EDTInhaled Oxygen Concentration--Fwgzmw282.8 kg (239 lb 13.8 oz)05/28/2025 3:53 PM CZEYwmhgy285.9 cm (6')05/28/2025 3:53 PM EDTBody Mass Index32.53005/28/2025 3:53 PM EDT Plan of Treatment Health MaintenanceDue DateLast DoneCommentsAbdominal Aortic Aneurysm Screening 9Anxiety Oobaermma46/09/1977Depression Usthzwlsd02/09/1977Hepatitis C Iinulxrrl40/09/1977DTaP,Tdap,Td Vaccine (1 - Tdap)1978Lipid Screening 1994CT Lgyqlnmqkivf60/09/2004Cologuard (FIT-DNA)2004Colonoscopy 2004Colorectal Cancer Bghavzqap23/09/2004Fecal Occult Blood2004 Zcuvbixylqvjd63/09/2004Pneumococcal Vaccine: 50+ (1 of 1 - PCV)2009 Shingrix Vaccine (1 of 2)2009Diabetes Csznxrrti07/06/2021, 01/27/2021dvance Directive Zaepbapcrj71/01/2025Medicare Advantage Annual Wellness Visit09/05/2024ovid-19 Vaccine ( - 2024- season)2025Influenza Vaccine (#1)2025Prostate Cancer Screening Myyrolbzkd77 RSV Vaccine (1 - 1-dose 75+ series)2034 Procedures Procedure NamePriorityDate/TimeAssociated DiagnosisCommentsARTHROCENTESIS ASPIR&/INJ MAJOR JT/BURSA W/GUMkejrnr32/31/2025 7:35 AM EDT Primary osteoarthritis of left hip US HIP-INJECTION LT (POC) BETI USE GYGPSfqipoa65/31/2025 7:29 AM EDT Primary osteoarthritis of left hip XR HIP GENERAL 3V PELV/AP/LAT QEZFQocgkvq13/29/2025 11:26 AM EDT Pain from Last 3 Months Results * ARTHROCENTESIS ASPIR&/INJ MAJOR JT/BURSA W/US (04/04/2025 7:35 AM EDT) Narrative Troy Evans DO - 04/04/2025 7:35 AM EDT Troy Evans DO 04/04/2025 7:36 AM Large Joint Arthro/Inj: [...] these instructions. Informed Consent Consent Obtained: Verbal [place] Protocol A moment to CARE was completed. [...] the bedside nurse for hospitalized patients) applicable. Authorizing ProviderResult TypeResult Micheal Evans DOPROCEDUREFinal Result * US HIP-INJECTION LT (POC) BETI USE ONLY (04/04/2025 7:29 AM EDT)Specimen (Source)Anatomical Location / LateralityCollection Method / VolumeCollection TimeReceived Time04/04/2025 7:29 AM EDT Narrative Authorizing ProviderResult TypeResult Micheal Evans DOIMAGESFinal Result Performing OrganizationAddressCity/State/ZIP CodePhone Number [facility] * XR HIP GENERAL 3V PELV/AP/LAT LEFT (04/02/2025 11:26 AM EDT)Anatomical Region LateralityModalityHipOtherSpecimen (Source)Anatomical Location / Laterality Collection Method / VolumeCollection TimeReceived Time04/02/2025 11:26 AM EDT Impressions 04/02/2025 5:02 PM EDT IMPRESSION: No acute osseous abnormality. Mild bilateral hip osteoarthritis, more pronounced in the left than on the right. Waiter/Waitress Take Out: SINAN ?? Transcribe Date/Time: Apr 02 2025 ??2:10P Dictated by : CUCA JOLLEY MD This examination was interpreted and the report reviewed and electronically signed by: CUCA JOLLEY MD on Apr 02 2025 ??5:00PM ??EST Narrative 04/02/2025 5:02 PM EDT * * *Final Report* * * DATE OF EXAM: Apr 02 2025 11:26AM ?? AFR ?? 5351 ??- ??XR HIP 3V PELV+ AP/LAT LT ??/ PROCEDURE REASON: Pain ? * * * * Physician Interpretation * * * * EXAMINATION / TECHNIQUE: ??XR HIP 3V PELV+ AP/LAT LT PATIENT/TECHNOLOGIST PROVIDED HISTORY: ?? left hip pain CLINICAL INFORMATION ( PROVIDED BY ORDERING CLINICIAN) : ??Pain COMPARISON: None RESULT: No acute fracture or dislocation. Mild bilateral hip osteoarthritis, more pronounced on the left than on the right. Sacroiliac joint spaces are maintained, as is the pubic symphysis. Incompletely evaluated degenerative changes in the lower lumbar spine. Procedure Note Provider, [facility] [place] - 04/02/2025 * * *Final Report* * [...] in the left than on the right. Waiter/Waitress Take Out: SINAN Transcribe Date/Time: Apr 02 2025 2:10P Dictated by : CUCA JOLLEY MD This examination was interpreted and the report reviewed and electronically signed by: CUCA JOLLEY MD on Apr 02 2025 5:00PM EST Authorizing ProviderResult TypeResult StatusMichaetyler Leonardo MDRAD-PAMAFinal Result from Last 3 Months Insurance Care Teams Team MemberRelationshipSpecialtyStart DateEnd Date Tonny Hernandez MD [address] [place] [address] ReferringPain [facility]04/16/24 Nikunj Yanez MD [address] [facility] [place] [address] [facility]03/26/25
--- OUTSIDE RECORDS SUMMARY | 2025-07-03 10:02 | XMS_ITS | Clinical Summary ---
Author Organization [facility] Address [address] [place] [address] Phone Care Team Providers Care Automotive Service Cashier Name Role Phone Unavailable Primary Care Provider Unavailabl e Social History Tobacco UseTypesPacks/DayYears UsedDateSmoking Tobacco: Never AssessedSex and Gender InformationValueDate RecordedSex Assigned at BirthNot on fileLegal Sex Male07/31/2022 4:30 PM ESTGender IdentityNot on fileSexual OrientationNot on file Last Filed Vital Signs Vital SignReadingTime TakenCommentsBlood Dvmzhjpt519/8505 11:12 AM EDT Fdrbi3240 11:12 AM NBJGwmyxbjnqte44.6 ??C (96.1 ??F)01/27/2021 11:12 AM EDTRespiratory Rate--Oxygen Saturation--Inhaled Oxygen Concentration--Oulkif236 kg (248 lb)01/27/2021 11:12 AM EDTHeight--Body Mass Index-- Plan of Treatment Not on file Medical Devices ImplantedTypeAreaManufacturerDevice IdentifierShelf Expiration DateModel / Serial / LotKit, Pacing, Diaphragm, Synapse Case [id number] Implanted:Qty: 1 on 12/12/2017 by Daniel Caballero MDImplantSYNAPSE BIOMEDICAL [id number]/[id number] / [id number] / [id number]:Converted from [facility]. Please see archived information for full log information.
--- OUTSIDE RECORDS SUMMARY | 2025-07-03 10:02 | XMS_ITS | Encounter Summary ---
Author Organization [facility] Address [address] [place] [address] Care Team Providers Care Denture Packer Name Role Phone Rosa Barker MD Unavailable Nikunj Yanez MD Primary Care Provider [phone] Sandee Santoyo NP Unavailable [phone] Encounter Details DateTypeDepartmentCare Team (Latest Contact Info)Thganomnusv51/19/2024Clinisync Result Encounter [facility] External Department Unsolicited Provider, Generic External Data Social History Tobacco UseTypesPacks/DayYears UsedDateSmoking Tobacco: FormerCigarettesPassive Smoke Exposure: PastSmokeless Tobacco: NeverAlcohol UseStandard Drinks/Week CommentsNever0 (1 standard drink = 0.6 oz pure alcohol)B1300 Health Literacy AnswerDate RecordedHow often do you need to have someone help you when you read instructions, pamphlets, or other written material from your doctor or pharmacy? Patient declines to jmukbfx0906/05/2024Humiliation, Afraid, Rape, and Kick questionnaireAnswerDate RecordedWithin the [...] relatives?Twice a week06/05/2024How often do you attend buddhist or rastafari services?More than 4 times per year06/05/2024o you belong to any clubs or organizations such as buddhist groups, unions, fraternal or athletic groups, or school groups?No06/05/2024How often do you attend meetings of the clubs or organizations you belong to?Never06/05/2024re you , , , , never , or living with a partner?Lhjwqzmb47/01/2024UDIT-C AnswerDate RecordedQ1: How often do you have [...] hard at all06/05/2024 PHQ-2AnswerDate RecordedPatient Health Questionnaire-2 Ruvwz138[facility] [place] [facility] - Occupational Stress QuestionnaireAnswerDate RecordedDo you feel stress - tense, restless, nervous, or anxious, or unable to sleep at night because yourmind is troubled all the time - these days?Patient peigisid83/01/2024Exercise Vital SignAnswerDate RecordedOn average, how many days [...] homeless or living in a halfway (including now)?No06/05/2024Sex and Gender InformationValueDate RecordedSex Assigned at BirthNot on fileLegal SexMale 11/17/2022 7:09 PM EDTGender IdentityNot on fileSexual OrientationNot on file documented as of this encounter Functional Status * AUDIT-C ScoreAnswerDate of LxuzvvylqbWltdlf710/01/2024 5:08 PM EDMike, Generic * Q1: How often do you have a drink containing alcohol?AnswerDate of Assessment FeejjcBhtmx79/01/2024 5:08 PM Mayi, Generic * Q2: How many drinks containing alcohol do you have on a typical day when you are drinking?AnswerDate of AssessmentAuthorPatient does not drink06/05/2024 5:08 PM Mayi, Generic * Q3: How often do you have six or more drinks on one occasion?AnswerDate of WwjwhtrgryVwokwfPeekj86/01/2024 5:08 PM Mayi, Generic * Over the past 2 weeks, how often have you been bothered by any of the following problems?QuestionAnswerDate of AssessmentAuthorLittle interest or pleasure in doing thingsNot at all01/25/2025 10:00 AM Misti Felix MA Feeling down, depressed, or hopelessNot at all01/25/2025 10:00 AM Misti Felix MAPatient Health Questionnaire-2 Qxalv939 10:00 AM Misti Felix MA * QuestionAnswerDate [...] 10:00 AM Misti Felix MAPatient Health Questionnaire-9 Xzoyp421 10:00 AM Misti Felix MA documented as of this encounter Plan of Treatment DateTypeDepartmentCare Team (Latest Contact Info)Iujtdotknnt09/08/2025 10:20 AM ESTOffice Visit [facility] [place] [facility] [address] [place] [id number] Husam Muñoz MD [address] [place] [address] documented as of this encounter Procedures Procedure NamePriorityDate/TimeAssociated DiagnosisCommentsCA ECHO DOPPLER KUXCVBEC80/19/2024 4:55 PM EDT documented in this encounter Results * CA ECHO DOPPLER COMPLETE (05/24/2024 4:55 PM EDT)Anatomical RegionLaterality ModalityOtherSpecimen (Source)Anatomical Location / LateralityCollection Method / VolumeCollection TimeReceived Time05/24/2024 4:55 PM EDT Narrative 05/24/2024 4:56 PM EDT [facility] ?[address] ? [place] [address] ? Cardiology Report ? Signed ? Patient: RIGO PETE N ?MR#: [id number] ?? : 1960 ?Acct:[id number] ?? Age/Sex: 64 / M ?ADM Date: 05/22/24 ?? Loc: CARD ? Attending Dr: Elias Manzano M.D. ? Ordering Physician: Elias Manzano M.D. ?? Date of Service: 05/22/24 ?? Procedure(s): CA echo doppler complete ?? Accession Number(s): [id number] ? cc: Shaikh Meka Malik; Elias Manzano M.D. ? Patient Name: ? RIGO PETE ? MR#: [id number] ? : 1960 ? Exam Date: 05/22/2024 ?? Ordering Doctor: DR. ELIAS MANZANO M.D. ? ECHOCARDIOGRAM REPORT ? PROCEDURE: ? CA ECHO DOPPLER COMPLETE ? INDICATIONS: ? Dyspnea on exertion, hypertension, left lung is ?? nonfunctioning, left lung plication, COPD ? COMPARISON: ? None. ? DESCRIPTION: ? COMPLETE ECHOCARDIOGRAM Real-time transthoracic ?? echocardiography with 2D, M-mode, spectral and color flow Doppler performed. ? QUALITY: ? Technical quality was good. ? LEFT VENTRICLE: ? Normal chamber size. ??Mild left ventricular hypertrophy ?? LV EF: ? Global left ventricular systolic function is normal; visually ?? estimated ejection fraction is 60 to 65%. ??No obvious wall motion ?? abnormalities. ?? DIASTOLIC: ? Unable to assess diastolic function. ?? ATRIAL SEPTUM: ? Inadequately seen. ?? LEFT ATRIUM: ? Normal chamber size. ?? RIGHT ATRIUM: ? Normal chamber size. ?? RIGHT VENTRICLE: ? Normal chamber size. Normal right ventricular systolic ?? function. ? TRICUSPID VALVE: ? Normal mobility and thickness. No stenosis with no ?? regurgitation. ??Unable to assess right-sided pressures due to lack of ?? measurable tricuspid regurgitation. ? MITRAL VALVE: ? Normal mobility and thickness. ?? No evidence of mitral valve ?? stenosis. ??There is no mitral annular calcification. Trivial mitral ?? regurgitation. ? AORTIC VALVE: ? Normal trileaflet appearance. No visible sclerosis. ??Normal ?? leaflet mobility. ??No evidence of aortic valve stenosis. No aortic ?? regurgitation. ? AORTIC ROOT: ? Normal diameter and appearance. ? PULMONIC VALVE: ? Normal thickness and mobility. No stenosis. No ?? regurgitation. ? PERICARDIUM: ? No evidence of pericardial effusion. ? IVC: ? Collapses with inspirations. ? CONCLUSION: ? 1. Global left ventricular systolic function is normal; visually estimated ?? ejection fraction is 60 to 65% ?? 2. The right ventricle is poorly seen but appears normal in size and systolic ?? function ?? 3. Unable to assess diastolic function ?? 4. The left atrium is normal in size ?? 5. No significant valvular abnormalities ? Adult Echocardiography Procedure Report ?? Left Ventricle ?? LVEDD (3.7 - 5.6 cm): ? 4.23 cm ?? LVESD (2.2 - 4.0 cm): ? 1.96 cm ?? LVIVS thickness (0.6 - 1.2 cm): ? 1.37 cm ?? LVPW thickness (0.5 - 1.0 cm): ? 0.93 cm ?? E - e': ? 8.19 ?? LVOT Max Gradient: ? 3.64 mm[Hg] ?? LVOT Area (cm2): ? 0.95 m/s ?? Peak Velocity (LVOT): ? 0.95 m/s ?? Mean Velocity (LVOT): ? 0.62 m/s ?? LVOT Diameter ? 2.32 cm ?? Left Atrium ?? LA Volume Index (2D A2C): ? 25.57 ml/m2 ?? Left Atrium Systolic Dimension: ? 3.03 cm ?? Mitral Valve ?? MV E to A Ratio: ? 0.82, 0.77 ?? Right Ventricle ?? Aorta ?? AO Root Diam: ? 3.43 cm ?? Aortic Valve ?? AoV Area (Peak Yung): ? 3.39 cm2, 3.39 cm2 ?? AoV Area (VTI): ? 3.71 cm2, 3.71 cm2 ?? Peak Velocity(Antegrade Flow): ? 1.19 m/s ?? Peak Gradient(Antegrade Flow): ? 5.70 mm[Hg] ?? Mean Velocity(Antegrade Flow): ? 0.82 m/s ?? Mean Gradient(Antegrade Flow): ? 3.10 mm[Hg] ?? Velocity Time Integral: ? 26.28 cm ?? Tricuspid Valve ?? Pulmonic Valve ?? Mean Gradient: ? 2.69 mm[Hg] ?? Mean Velocity: ? 0.75 m/s ?? Peak Velocity: ? 1.20 m/s, 1.14 m/s ?? Peak Gradient: ? 5.20 mm[Hg], 5.81 mm[Hg] ?? Right Atrium ? Dictated by: Derek Irby M.D. on 05/24/2024 at 16:52 ? Approved by: Derek Irby M.D. on 05/24/2024 at 16:55 ? Dictated By: ?Derek Irby M.D. ? Signed By: ?05/24/24 1656 ? DD/ 1655 ? TD/TT: ? Smoking Pipe Mounter: Procedure Note Radiology, Radiologist, - 05/24/2024 [place] [address] Cardiology Report Signed Patient: RIGO PETE NMR#: [id number] : 9Acct:[id number] Age/Sex: 64 / MADM Date: 05/22/24 Loc: CARD Attending Dr: Elias Manzano M.D. Ordering Physician: Elias Manzano M.D. Date of Service: 05/22/24 Procedure(s): CA echo doppler complete Accession Number(s): [id number] cc: Shaikh Meka Malik; Elias Manzano M.D. Patient Name: RIGO PETE MR#: [id number] : 1960 Exam Date: 05/22/2024 Ordering Doctor: [...] Irby M.D. Signed By:05/24/241655 DD/ 54 TD/TT: Smoking Pipe Mounter: Authorizing ProviderResult TypeResult StatusGeneric External Data Provider CLINISYNC IMAGINGFinal Result documented in this encounter Visit Diagnoses Not on filedocumented in this encounter Care Teams Team MemberRelationshipSpecialtyStart DateEnd Date Rosa Barker MD [address] [facility] [address] [place] [address] PCP - Devoted09/05/22 Nikunj Yanez MD [address] [facility] [address] [place] [address] [facility] - [facility]04/09/24 Sandee Santoyo NP [address] [address] Nurse Practitionermi Medicinedocumented as of this encounter
--- OUTSIDE RECORDS SUMMARY | 2025-07-03 10:02 | XMS_ITS | Encounter Summary ---
Author Organization [facility] Address [address] [place] [address] Care Team Providers Care Site Physician Name Role Phone Rosa Barker MD Unavailable Shaikh CURRY Malik Primary Care Provider [phone] Nikunj Yanez MD Primary Care Provider [phone] Sandee Santoyo NP Unavailable [phone] Encounter Details DateTypeDepartmentCare Team (Latest Contact Info)Airzhhhndtk38/30/2024Clinisync Result Encounter [facility] External Department Unsolicited Provider, Generic External Data Social History Tobacco UseTypesPacks/DayYears UsedDateSmoking Tobacco: FormerCigarettesPassive Smoke Exposure: PastSmokeless Tobacco: NeverAlcohol UseStandard Drinks/Week CommentsNever0 (1 standard drink = 0.6 oz pure alcohol)B1300 Health Literacy AnswerDate RecordedHow often do you need to have someone help you when you read instructions, pamphlets, or other written material from your doctor or pharmacy? Patient declines to swatfrt3206/05/2024Humiliation, Afraid, Rape, and Kick questionnaireAnswerDate RecordedWithin the [...] relatives?Twice a week06/05/2024How often do you attend adventist or mormon services?More than 4 times per year06/05/2024o you belong to any clubs or organizations such as adventist groups, unions, fraQuantum Health or athletic groups, or school groups?No06/05/2024How often do you attend meetings of the clubs or organizations you belong to?Never06/05/2024re you , , , , never , or living with a partner?Gltligkb44/01/2024UDIT-C AnswerDate RecordedQ1: How often do you have [...] hard at all06/05/2024 PHQ-2AnswerDate RecordedPatient Health Questionnaire-2 Ksowp236[facility] [place] of Occupational Health - Occupational Stress QuestionnaireAnswerDate RecordedDo you feel stress - tense, restless, nervous, or anxious, or unable to sleep at night because yourmind is troubled all the time - these days?Patient xlflzuat32/01/2024Exercise Vital SignAnswerDate RecordedOn average, how many days per week do you engage in moderate to strenuous exercise (like a brisk wal k)?0 days06/05/2024On average, how many minutes do you engage in exercise at this level?Patient qhkrgiiy73/01/2024Hunger Vital SignAnswerDate RecordedWithin the past 12 months, [...] steady place to sleep or slept in [facility] (including now)?No08/18/2023Housing Stability Vital SignAnswerDate RecordedIn the last 12 months, was there a time when you were not able to pay the mortgage or rent on time?No06/05/2024Number of Times Moved in the Last YearNot on file06/05/2024t any time in the past 12 months, were you homeless or living in a snf (including now)?No06/05/2024Sex and Gender InformationValueDate RecordedSex Assigned at BirthNot on fileLegal SexMale 11/17/2022 7:09 PM EDTGender IdentityNot on fileSexual OrientationNot on file documented as of this encounter Functional Status * AUDIT-C ScoreAnswerDate of HkyrzksobzOvxecq359/01/2024 5:08 PM EDMike, Generic * Q1: How often do you have a drink containing alcohol?AnswerDate of Assessment MnbwmhLrgmx81/01/2024 5:08 PM EDMike, Generic * Q2: How many drinks containing alcohol do you have on a typical day when you are drinking?AnswerDate of AssessmentAuthorPatient does not drink06/05/2024 5:08 PM EDMike, Generic * Q3: How often do you have six or more drinks on one occasion?AnswerDate of ZrjcqahosiSmtadzVcxaw11/01/2024 5:08 PM Fletcher See * Over the past 2 weeks, how often have you been bothered by any of the following problems?QuestionAnswerDate of AssessmentAuthorLittle interest or pleasure in doing thingsNot at all01/25/2025 10:00 AM Misti Felix MA Feeling down, depressed, or hopelessNot at all01/25/2025 10:00 AM Misti Felix MAPatient Health Questionnaire-2 Bbujw342 10:00 AM Misti Felix MA * QuestionAnswerDate [...] 10:00 AM Misti Felix MAPatient Health Questionnaire-9 Vsjur301 10:00 AM Misti Felix MA documented as of this encounter Plan of Treatment DateTypeDepartmentCare Team (Latest Contact Info)Srrtxnrxirq29/08/2025 10:20 AM ESTOffice Visit [facility] [facility] [address] [place] [address] Husam Muñoz MD [address] [place] [address] documented as of this encounter Procedures Procedure NamePriorityDate/TimeAssociated DiagnosisCommentsMR LUMBAR SPINE WO CON04/03/2024 4:10 PM EDT documented in this encounter Results * MR LUMBAR SPINE WO CON (04/03/2024 4:10 PM EDT)Anatomical RegionLaterality ModalityOtherSpecimen (Source)Anatomical Location / LateralityCollection Method / VolumeCollection TimeReceived Time04/03/2024 4:10 PM EDT Narrative 04/03/2024 4:13 PM EDT [facility] ?[address] ? [place] [address] ? Magnetic Resonance Report ? Signed ? Patient: PETE,RIGO N ?MR#: [id number] ?? : 1960 ?Acct:[id number] ?? Age/Sex: 64 / M ?ADM Date: 04/03/24 ?? Loc: MRI ? Attending Dr: Pedro Del Real SMALLTALK DEVELOPER ? Ordering Physician: Pedro Del Real SMALLTALK DEVELOPER ?? Date of Service: 04/03/24 ?? Procedure(s): MR lumbar spine wo con ?? Accession Number(s): [id number] ? cc: Shaikh Meka Malik; Pedro Del Real NP ? [facility] ? [address] ? [place] [address] ? Patient Name: ?? RIGO PETE ? MRN: [id number] ? date: 1960 ?Sex: M ?? Assigned Patient Location: MRI ?? Current Patient Location: PM ?? Accession/Order Number: [id number] ?? Exam Date: 04/03/2024 ??09:09 ?Report Date: 04/03/2024 ??16:10 ? At the request of: ?? PEDRO ??GT ? Procedure: ??MR lumbar spine wo con ? EXAMINATION: MR lumbar spine wo con ? HISTORY: Lumbar Radiculopathy, Lumbar Stenosis ? COMPARISON: No relevant comparison available. ? TECHNIQUE: A variety of imaging planes and parameters were utilized for ?? visualization of suspected pathology. ? FINDINGS: ?? For the purposes of numbering, sagittal T2 image # 9 extends from the T11 ?? vertebral body superiorly to the S2-S3 level inferiorly. ? PARASPINAL AREA: Normal with no visible mass. ?? BONES: Normal alignment of the lumbar vertebral bodies with no acute fracture ?? or spondylolisthesis. Signal abnormality likely in place likely representing ?? Modic 2 change. Bulky anterior degenerative spondylosis, severe ?? CORD/CAUDA EQUINA: Normal caliber, contour, and signal intensity. ? DISC LEVELS: ?? 12-L1: Disc space narrowing and desiccation. No disc bulge or herniation. No ?? central or foraminal stenosis ?? L1-L2: Disc space narrowing and desiccation. No disc bulge or herniation. No ?? central or foraminal stenosis ?? L2-L3: Disc space narrowing and desiccation. No disc bulge or herniation. No ?? central or foraminal stenosis ?? L3-L4: Disc space narrowing. Broad-based posterior moderate disc/osteophyte ?? complex. Moderate to severe ligamentum flavum hypertrophy and facet ?? osteoarthropathy. Moderate central canal stenosis axial image #20. Moderate ?? right and no left foraminal stenosis ?? L4-L5: Disc desiccation. Mild diffuse disc bulge. Severe ligamentum flavum ?? hypertrophy. Moderate bilateral facet osteoarthropathy. Moderate to severe ?? central canal stenosis. Mild right and moderate to severe left foraminal ?? stenosis ?? L5-S1: Mild disc desiccation. Ligamentum flavum hypertrophy and facet ?? osteoarthropathy. Mild bilateral foraminal stenosis ? MR/MR lumbar spine wo con ?? IMPRESSION: ? Degenerative changes resulting in moderate to severe central canal stenosis ?? L3-L4 and L4-L5 ? Foraminal stenosis at L3-S1 detailed above ? Electronically authenticated by: RADHA ??EMILY ?? Date: 04/03/2024 ??16:10 ? Dictated By: ?Radha Diaz M.D. ? Signed By: ?04/03/24 1613 ? DD/ 1610 ? TD/TT: ? Manager Trainee: Procedure Note Radiology, Radiologist, MD - 04/03/[address] [address] Magnetic Resonance Report Signed Patient: RIGO PETE [facility]#: [id number] : 9Acct:[id number] Age/Sex: 64 / MADM Date: 04/03/24 Loc: MRI Attending Dr: Pedro Del Real NP Ordering Physician: Pedro Del Real NP Date of Service: 04/03/24 Procedure(s): MR lumbar spine wo con Accession Number(s): [id number] cc: Shaikh Meka Malik; Pedro Del Real NP [place] [address] Patient Name: RIGO PETE MRN: [id number] date: 1960 Sex: M Assigned Patient Location: MRI Current Patient Location: Accession/Order Number: [id number] Exam Date: 04/03/2024 09:09 Report Date: 04/03/2024 [...] Diaz M.D. Signed By:04/03/241612 DD/ 09 TD/TT: Manager Trainee: Authorizing ProviderResult TypeResult StatusGeneric External Data Provider CLINISYNC IMAGINGFinal Result documented in this encounter Visit Diagnoses Not on filedocumented in this encounter Care Teams Team MemberRelationshipSpecialtyStart DateEnd Date Rosa Barker MD [address] [address] PCP - Devoted09/05/22 Shaikh Malik MD [address] [address] PCP - GeneralInternal Medicine Nikunj Yanez MD [address] [address] PCP - GeneralFamily Medicine04/09/24 Sandee Santoyo NP [address] [address] Nurse PractitionerFamily Medicine/documented as of this encounter
--- OUTSIDE RECORDS SUMMARY | 2025-07-03 10:02 | XMS_ITS | Clinical Summary ---
Author Organization [facility] Address [address] [place] [address] Care Team Providers Care Fur Stylist Name Role Phone Rosa Barker MD Unavailable Nikunj Yanez MD Primary Care Provider [phone] Allergies No known active allergies Medications MedicationSigDispense QuantityRefillsLast FilledStart DateEnd DateStatus oxyCODONE-acetaminophen (Percocet) 5-325 MG tablet Take 1 tablet by mouth every 6 (six) hours if neededActive atorvastatin (Lipitor) 20 MG tablet Indications:Hyperlipidemia, unspecifiedTAKE 1 TABLET BY MOUTH DAILY 90 tablet 4Active atenolol (Tenormin) 25 MG tablet Take 25 mg by mouth Daily4Active albuterol 1.25 MG/3ML nebulizer solution Take 1.25 mg by nebulization every 6 (six) hours if needed for wheezingActive montelukast (Singulair) 10 MG tablet Indications:Allergic rhinitis, unspecifiedTake 1 tablet (10 mg) by mouth Daily 90 tablet 5Active clarithromycin (Biaxin) 250 MG tablet Indications:Rosacea, unspecifiedTAKE 1 TABLET BY MOUTH DAILY 90 tablet 5Active phentermine 37.5 MG capsule Indications:Class 1 obesity due to excess calories with serious comorbidity and body mass index (BMI) of 33.0 to 33.9 in adultTake 1 capsule (37.5 mg) by mouth in the morning. Take before meals. 30 capsule 5Active methocarbamol (Robaxin) 750 MG tablet Take 750 mg by mouth in the morning and 750 mg at noon and 750 mg in the evening and 750 mg before bedtime.Active testosterone cypionate (Depo-Testosterone) 200 MG/ML injection Indications:Hypopituitarism (HCC)Inject 1 mL (200 mg) into the shoulder, thigh, or buttocks every 14 (fourteen) days 6 mL 515Active Active Problems ProblemNoted DateDiagnosed DateDegenerative lumbar spinal pqomhxov46/22/2025 Assessment & Plan (03/26/2025 11:14 AM EDT): Continued pain and follow with surgeon. Primary osteoarthritis of left hip03/26/2025 Assessment & Plan (03/26/2025 11:14 AM EDT): Continued pain and CT suggestive avascular necrosis. Refer to ortho. Abnormal CT scan03/26/2025 Assessment & Plan (03/26/2025 11:13 AM EDT): CT suggestive avascular necrosis and refer to ortho. Coronary artery disease involving [place] coronary artery of [place] heart without angina xafxompu89/23/4012Mcozapivltjreix27/05/2024ecreased orryam1508/09/2024 Paralyzed yfppubdaqqnko08/02/2024Class 1 obesity due to excess calories with serious comorbidity and body mass index (BMI) of 33.0 to 33.9 in adult12/29/2023 Assessment & Plan (03/26/2025 11:14 AM EDT): Patient doing well with adipex and lost 5 pounds since starting. Tolerating well with only mild drymouth. Continue with dietary changes and less calories. Need to limit snacking and smaller portions. Continue healthier choices. Need regular aerobic exercise 30 minutes at a time 5-6 days a week. Refill for aonther month. OARRS reviewed. Continue meds as prescribed. If develop new or worsening symp toms contact office. Assessment & Plan (01/25/2025 11:10 [...] new medications. Special screening for malignant neoplasms, colon09/26/2023Encounter for Medicare annual wellness exam08/20/2023 Assessment & Plan (01/25/2025 11:10 AM EDT): [...] He was referred to GI for Colonoscopy. Rkaakkxgdknv42/14/2023 Assessment & Plan (05/03/2024 2:18 PM EDT): Currently taking Atorvastatin 20mg Denies myalgias. Most recent Lipid Panel WNL. Continue current regimen; Assessment & Plan (11/23/2023 9:37 AM EDT): On Lipitor. Tolerating w/o adverse effects Assessment & Plan (08/20/2023 6:27 PM EST): On Lipitor 20 mg. Check Lipid panel. Hypertensive ngnfyalb57/14/2023 Assessment & Plan (03/26/2025 11:14 AM EDT): [...] on adapex but he has gained some weightback up and it seems like it is [...] on adapex but he has gained some weightback up and it seems like it is [...] resume his BP meds. Chronic seasonal allergic ooztgffp87/14/2023 Assessment & Plan (05/03/2024 2:23 PM EDT): Cetirizine D and Flonase daily. Feels symptoms are well managed. Continue current regimen. Assessment & Plan (08/20/2023 6:27 PM EST): Uses cindy and Flonase. Controlled on current regimen. Encounter for screening for malignant neoplasm of colon08/18/2023 Assessment & Plan (08/20/2023 6:28 PM EST): Never had Colon Cancer screening. Referred to GI for Colonoscopy Primary hypogonadism in male08/18/2023 Assessment & Plan (05/03/2024 2:22 PM EDT): [...] testosterone injections. Following Endocrinology. Chronic obstructive lung vkppzqj2411/24/2016 Assessment & Plan (03/26/2025 11:13 AM EDT): [...] severe lumbar stenosis Pain management [facility] for further management. Still following with Pain Management- Dr. Stacy. Had epidural last Tuesday- feels pain is well managed since. Taking Oxycodone Q6H PRN- Pain Management prescribes. Resolved Problems ProblemNoted DateDiagnosed DateResolved DateChronic allergic qudmbwmk70/25/2024 01/25/2025 Assessment & Plan (12/29/2023 11:58 AM EDT): Poorly controlled symptoms - has sinus pressure, nasal congestion and rhinorrhea. Switch to zyrtec-pseudo Discontinue cindy. Atrial dfezmqllzwes94/22/202403/20/2024Weight gain/ Assessment & Plan (08/20/2023 6:30 PM EST): [...] or concerns related to new medications. Encounters DateTypeDepartmentCare EqcmKjrzvnffwex83/08/2025 11:10 AM EDTOffice Visit [facility] [facility] [address] [place] [address] Husam Muñoz MD Hypopituitarism (HCC) (Primary Dx); Decreased libido; Encounter for dietary consultation; Class 1 obesity due to excess calories without serious comorbidity with body mass index (BMI) of 32.0 to 32.9 in adult04/12/2025Refill [facility] [address] [place] [address] Husam Muñoz MD Hypopituitarism ([facility])04/12/2025amboo flowsheet [facility] [facility] [address] [place] [address] Husam Muñoz MD 04/02/2025Refill [facility] [address] [place] [address] Nikunj Yanez MD Class 1 obesity due to excess calories with serious comorbidity and body mass index (BMI) of 33.0 to 33.9 in adultfrom Last 3 Months Family History Medical HistoryRelationNameCommentsLymphomaBrotherBrain AneurysmFatherDiabetes MotherHeart diseaseMotherThyroid diseaseMotherDiabetesOtherHeart diseaseOther Breast cancerNeg HxColon cancerNeg HxOvarian cancerNeg HxRelationNameStatus FnhnykmaTjoyizc1AcmmvmYwliwnosCntsoeFtfiqWutug Social History Tobacco UseTypesPacks/DayYears UsedDateSmoking Tobacco: FormerCigarettesPassive Smoke Exposure: PastSmokeless Tobacco: Never Tobacco Cessation:Counseling Given: Not Answered Alcohol UseStandard Drinks/WeekCommentsNever0 (1 standard drink = 0.6 oz pure alcohol)B1300 Health LiteracyAnswerDate RecordedHow often do you need to have someone help you when you read instructions, pamphlets, or other written material from your doctor or pharmacy?Patient declines to fshwgqo7006/05/2024 Humiliation, Afraid, Rape, and Kick questionnaireAnswerDate RecordedWithin the last year, have you been afraid of your partner or ex-partner?No08/18/2023Within the last year, have you been humiliated or emotionally abused in other ways by your partner or ex-partner?No08/18/2023Within the last year, have you been kicked, hit, slapped, or otherwise physically hurt by your partner or ex-partner?No08/18/2023Within the last year, have you been raped or forced to have any kind of sexual activity by your partner or ex-partner?No08/18/2023 Social Connection and Isolation PanelAnswerDate RecordedIn a typical week, how many times do you talk on the phone with family, friends, or neighbors?Never 06/05/2024How often do you get together with friends or relatives?Twice a week 06/05/2024How often do you attend shinto or latter day services?More than 4 times per year06/05/2024o you belong to any clubs or organizations such as shinto groups, unions, fraternal or athletic groups, or school groups?No06/05/2024How often do you attend meetings of the clubs or organizations you belong to?Never 06/05/2024re you , , , , never , or living with a partner?Zbeheghi93/01/2024UDIT-CAnswerDate RecordedQ1: How often do you have a drink containing alcohol?Never06/05/2024Q2: How many drinks containing alcohol do you have on a typical day when you are drinking?Patient does not drink06/05/2024Q3: How often do you have six or more drinks on one occasion?Never06/05/2024Overall Financial Resource Strain (CARDIA)AnswerDate RecordedHow hard is it for you to pay for the very basics like food, housing, medical care, and heating?Not hard at all06/05/2024HQ-2AnswerDate Recorded Patient Health Questionnaire-2 Kenns569[facility] [place] of Occup[facility] - Occupational Stress QuestionnaireAnswerDate RecordedDo you feel stress - tense, restless, nervous, or anxious, or unable to sleep at night because your mind is troubled all the time - these days?Patient tagogvid58/01/2024Exercise Vital SignAnswerDate RecordedOn average, how many days per week do you engage in moderate to strenuous exercise (like a brisk walk)?0 days06/05/2024On average, how many minutes do you engage in exercise at this level?Patient declined 06/05/2024Hunger Vital SignAnswerDate RecordedWithin the past 12 months, you worried that your food would run out before you got the money to buymore.Never true06/05/2024Within the past 12 months, the food you bought just didn't last and you didn't have money to get more.Never true06/05/2024RAPARE - TransportationAnswerDate RecordedIn the past 12 months, has lack of transportation kept you from medical appointments or from getting medications?No 06/05/2024In the past 12 months, has lack of transportation kept you from meetings, work, or from getting things needed for daily living?No06/05/2024 Housing Stability Vital SignAnswerDate RecordedIn the last 12 months, was there a time when you were not able to pay the mortgage or rent on time?No08/18/2023In the last 12 months, how many places [...] time?No06/05/2024Number of Times Moved in the Last Year Not on file06/05/2024t any time in the past 12 months, were you homeless or living in a usp (including now)?No06/05/2024Sex and Gender InformationValue Date RecordedSex Assigned at BirthNot on fileLegal TmxCqzk9711/17/2022 7:09 PM EDT Gender IdentityNot on fileSexual OrientationNot on file Last Filed Vital Signs Vital SignReadingTime TakenCommentsBlood Dqqivfuf555/8008 11:03 AM EDT Rmkeb4132 11:03 AM ITXYmccizoortf99.6 ??C (97.8 ??F)03/26/2025 10:27 AM EDTRespiratory Npjp8082 11:03 AM EDTOxygen Drpnktifjm42%04/12/2025 11:03 AM EDTInhaled Oxygen Concentration--Luxoqh264 kg (239 lb)04/12/2025 11:03 AM EDT Bwftqq161.9 cm (6')04/12/2025 11:03 AM EDTBody Mass Index32.4108 11:03 AM EDT Plan of Treatment DateTypeDepartmentCare Team (Latest Contact Info)Mjpyrusepar01/08/2025 10:20 AM ESTOffice Visit [facility] [facility] [address] [place] [address] Husam Muñoz MD [address] [place] [address] Health MaintenanceDue DateLast DoneCommentsCT Cjxkwhyuauze1959FIT-DNA 1960FIT1960FOBT1960 4618Uhkvcfjdrzwei1959Pneumococcal Vaccine: 65+ Years (1 of 2 - PCV)1978Influenza Vaccine (#1)2025 Medicare Annual Wellness (AWV)605/, 08/18/2023, 08/18/2023 Iqrvgaybork57/27/203402/, 4Colorectal Cancer Trpwocjnd22/27/2034 Procedures Procedure NamePriorityDate/TimeAssociated DiagnosisCommentsCOLONOSCOPYRoutine 11/01/2023 11:53 AM ESTfrom Last 3 Months or Most Recently Relevant to Health Maintenance Results * Colonoscopy (11/01/2023 11:53 AM EST)Anatomical RegionLateralityModality Endoscopy Narrative Authorizing ProviderResult TypeResult StatusFredric H Nathanael DOENDOSCOPY PROCEDURE ORDERABLESFinal Result from Last 3 Months or Most Recently Relevant to Health Maintenance Insurance Care Teams Team MemberRelationshipSpecialtyStart DateEnd Rosa Barker MD [address] [address] PCP - [facility]09/05/22 Nikunj Yanez MD [address] [facility] [address] [place] [address] PCP - [facility]04/09/24
--- OUTSIDE RECORDS SUMMARY | 2025-07-03 10:02 | XMS_ITS | Encounter Summary ---
Author Organization [facility] Address [address] [place] [address] Care Team Providers Care Rod Drawer Name Role Phone Rosa Barker MD Unavailable Shaikh CURRY Malik Primary Care Provider [phone] Nikunj Yanez MD Primary Care Provider [phone] Sandee Santoyo NP Unavailable [phone] Encounter Details DateTypeDepartmentCare Team (Latest Contact Info)Yelnomntnmb28/31/2024Clinisync Result Encounter [facility] External Department Unsolicited Provider, Generic External Data Social History Tobacco UseTypesPacks/DayYears UsedDateSmoking Tobacco: FormerCigarettesPassive Smoke Exposure: PastSmokeless Tobacco: NeverAlcohol UseStandard Drinks/Week CommentsNever0 (1 standard drink = 0.6 oz pure alcohol)B1300 Health Literacy AnswerDate RecordedHow often do you need to have someone help you when you read instructions, pamphlets, or other written material from your doctor or pharmacy? Patient declines to tkwvkex5106/05/2024Humiliation, Afraid, Rape, and Kick questionnaireAnswerDate RecordedWithin the [...] relatives?Twice a week06/05/2024How often do you attend methodist or hoahaoism services?More than 4 times per year06/05/2024o you belong to any clubs or organizations such as methodist groups, unions, fraCirrus Insight or athletic groups, or school groups?No06/05/2024How often do you attend meetings of the clubs or organizations you belong to?Never06/05/2024re you , , , , never , or living with a partner?Qgmchxtg11/01/2024UDIT-C AnswerDate RecordedQ1: How often do you have [...] hard at all06/05/2024 PHQ-2AnswerDate RecordedPatient Health Questionnaire-2 Ulgvn414Finlif[facility] [place] of Occupational Health - Occupational Stress QuestionnaireAnswerDate RecordedDo you feel stress - tense, restless, nervous, or anxious, or unable to sleep at night because yourmind is troubled all the time - these days?Patient ftbnvxza32/01/2024Exercise Vital SignAnswerDate RecordedOn average, how many days per week do you engage in moderate to strenuous exercise (like a brisk wal k)?0 days06/05/2024On average, how many minutes do you engage in exercise at this level?Patient hzqlorqk87/01/2024Hunger Vital SignAnswerDate RecordedWithin the past 12 months, [...] steady place to sleep or slept in [facility] (including now)?No08/18/2023Housing Stability Vital SignAnswerDate RecordedIn the [...] encounter Functional Status * AUDIT-C ScoreAnswerDate of BecquzmrgqLttkiz010/01/2024 5:08 PM EDMike, Generic * Q1: How often do you have a drink containing alcohol?AnswerDate of Assessment EqxspoIggng73/01/2024 5:08 PM EDMike, Generic * Q2: How many drinks containing alcohol do you have on a typical day when you are drinking?AnswerDate of AssessmentAuthorPatient does not drink06/05/2024 5:08 PM EDMike, Generic * Q3: How often do you have six or more drinks on one occasion?AnswerDate of JwoectxfthKuclezYfdyq66/01/2024 5:08 PM Fletcher See * Over the past 2 weeks, how often have you been bothered by any of the following problems?QuestionAnswerDate of AssessmentAuthorLittle interest or pleasure in doing thingsNot at all01/25/2025 10:00 AM Misti Felix MA Feeling down, depressed, or hopelessNot at all01/25/2025 10:00 AM Misti Felix MAPatient Health Questionnaire-2 Dhyef384 10:00 AM Misti Felix MA * QuestionAnswerDate [...] 10:00 AM Misti Felix MAPatient Health Questionnaire-9 Eifqf751 10:00 AM Misti Felix MA documented as of this encounter Plan of Treatment DateTypeDepartmentCare Team (Latest Contact Info)Dzhkmnpytfc75/08/2025 10:20 AM ESTOffice Visit [facility] [address] [place] [address] Husam Muñoz MD [address] [place] [address] documented as of this encounter Procedures Procedure NamePriorityDate/TimeAssociated DiagnosisCommentsXR LUMBAR SPINE 6V W HBQPZKX6904/04/2024 2:07 PM EDT documented in this encounter Results * XR LUMBAR SPINE 6V W BENDING (04/04/2024 2:07 PM EDT)Anatomical Region LateralityModalityOtherSpecimen (Source)Anatomical Location / Laterality Collection Method / VolumeCollection TimeReceived Time04/04/2024 2:07 PM EDT Narrative 04/04/2024 2:09 PM EDT [facility] ?[address] ? [place] [address] ?XRay Report ? Signed ? Patient: PETE,RIGO N ?MR#: [id number] ?? : 1960 ?Acct:[id number] ?? Age/Sex: 64 / M ?ADM Date: 04/03/24 ?? Loc: MRI ? Attending Dr: Pedro Del Real ANTHROPOLOGICAL LINGUIST ? Ordering Physician: Pedro Del Real NP ?? Date of Service: 04/03/24 ?? Procedure(s): XR lumbar spine 6V w bending ?? Accession Number(s): [id number] ? cc: Shaikh Meka Malik; Pedro Del Real NP ? [facility] ? [address] ? [place] [address] ? Patient Name: ?? RIGO PETE ? MRN: [id number] ? date: 1960 ?Sex: M ?? Assigned Patient Location: MRI ?? Current Patient Location: ? Accession/Order Number: [id number] ?? Exam Date: 04/03/2024 ??09:50 ?Report Date: 04/04/2024 ??14:07 ? At the request of: ?? PEDRO ??GT ? Procedure: ??XR lumbar spine 6V w bending ? EXAMINATION: XR lumbar spine 6V w bending ? HISTORY: Lumbar Radiculopathy, Lumbar Stenosis ? COMPARISON: No relevant comparison available. ? FINDINGS: ?? BONES: Normal alignment with no acute fracture or spondylolisthesis. Moderate ?? to severe spondylosis and facet osteoarthropathy ?? DISC SPACES: Normal. No significant disc height narrowing, subluxation, or ?? endplate abnormality. ?? PARASPINOUS: Negative. No paraspinous abnormality is seen. ?? OTHER: Negative. ? XR/XR lumbar spine 6V w bending ?? IMPRESSION: ? Moderate to severe degenerative changes ? Electronically authenticated by: RADHA ??EMILY ?? Date: 04/04/2024 ??14:07 ? Dictated By: ?Radha Diaz M.D. ? Signed By: ?04/04/24 1409 ? DD/ 1407 ? TD/TT: ? Ladle Puller: Procedure Note Radiology, Radiologist, MD - 04/04/2024 [place] [address] XRay Report Signed Patient: RIGO PETE [facility] [id number] : 1960cct:[id number] Age/Sex: 64 / MADM Date: 04/03/24 Loc: MRI Attending Dr: Pedro Del Real NP Ordering Physician: Pedro Del Real NP Date of Service: 04/03/24 Procedure(s): XR lumbar spine 6V w bending Accession Number(s): [id number] cc: Shaikh Meka Malik; Pedro Del Real NP [facility] [place] [address] Patient Name: RIGO PETE MRN: [id number] date: 1960 Sex: M Assigned Patient Location: MRI Current Patient Location: Accession/Order Number: [id number] Exam Date: 04/03/2024 09:50 Report Date: 04/04/2024 [...] M.D. Signed By:04/04/24 1409 DD/ 1407 TD/TT: Ladle Puller: Authorizing ProviderResult TypeResult StatusGeneric External Data Provider CLINISYNC IMAGINGFinal Result documented in this encounter Visit Diagnoses Not on filedocumented in this encounter Care Teams Team MemberRelationshipSpecialtyStart DateEnd Date Rosa Barker MD [address] [address] PCP - [facility]09/05/22 Shaikh Malik MD [address] [address] PCP - GeneralInternal Medicine/12/27 Nikunj Yanez MD [address] [address] PCP - GeneralFamily Medicine04/09/24 Sandee Santoyo NP [address] [address] Nurse PractitionerFamily Medicinedocumented as of this encounter
--- OUTSIDE RECORDS SUMMARY | 2025-07-03 10:02 | XMS_ITS | Clinical Summary ---
Author Organization [facility] Address [address] [place] [address], [address] [place] [address] Care Team Providers Care Dairy Cattle Farm Worker Name Role Phone Unavailable Primary Care Provider Unavailabl e Social History Tobacco UseTypesPacks/DayYears UsedDateSmoking Tobacco: Never AssessedSex and Gender InformationValueDate RecordedSex Assigned at BirthNot on fileLegal Sex Male10/15/2012 12:32 PM ESTGender IdentityNot on fileSexual OrientationNot on file Plan of Treatment Not on file
--- NOTE | 2025-07-03 10:30 | PM.CN ---
Consult Note: HPI Data of Consult Patient: known to practice within the last 3 years Consult date: 07/03/25 Requesting Physician: Sho Galdamez NP Primary Care Provider: Nikunj Yanez MD Consult Narrative Reason for consult: low back, left hip, left leg pain Narrative: Ryan Pete a pleasant 65 year old male presents for evaluation of chronic low back and left leg pain. Pt reports his low back and left LLE pain is 4/10 sharp aching increasing to 10/10 with standing, walking, bending, ADLs, activity, sleep. notes mild improvement with sitting, lying, heat, TENS. denies falls and injury. pt following with orthopedics and NS for further evaluation, no available consult notes at this time. prior lumbar mri consistent with multilevel stenosis and DDD. cc:: CC: Sho Galdamez NP Review of Systems ROS Musculoskeletal Reports: back pain, extremity pain and joint pain PFSH PFSH Medical History Bilateral hip pain ?M25.551 - Pain in right hip (ICD-10) ?M25.552 - Pain in left hip (ICD-10) COPD (chronic obstructive pulmonary disease) ?J44.9 - Chronic obstructive pulmonary disease, unspecified (ICD-10) Rheumatoid arthritis ?M06.9 - Rheumatoid arthritis, unspecified (ICD-10) Upper back pain ?M54.9 - Dorsalgia, unspecified (ICD-10) Low back pain ?M54.50 - Low back pain, unspecified (ICD-10) Uses continuous positive airway pressure (CPAP) ventilation at home ?Z99.89 - Dependence on other enabling machines and devices (ICD-10) Emphysema lung ?J43.9 - Emphysema, unspecified (ICD-10) Hypertension ?I10 - Essential (primary) hypertension (ICD-10) Surgical History Hx of cholecystectomy ?Z90.49 - Acquired absence of other specified parts of digestive tract (ICD-10) H/O cardiac catheterization ?Z98.890 - Other specified postprocedural states (ICD-10) H/O heart bypass surgery ?Z95.1 - Presence of aortocoronary bypass graft (ICD-10) History of lung surgery ?Z98.890 - Other specified postprocedural states (ICD-10) History of tonsillectomy ?Z90.89 - Acquired absence of other organs (ICD-10) H/O cervical spine surgery ?Z98.890 - Other specified postprocedural states (ICD-10) H/O carpal tunnel repair ?Z98.890 - Other specified postprocedural states (ICD-10) H/O arthroscopy of knee ?Z98.890 - Other specified postprocedural states (ICD-10) Family History Other Bilateral hip pain Meds Home Medications and Allergies Home Medications ?Medication ?Instructions ?Recorded ?Confirmed ?Type atorvastatin 40 mg tablet (Lipitor) 40 mg PO DAILY 02/17/23 03/20/25 History testosterone enanthate 50 mg/0.5 50 mg subcut QWEEK 12/13/23 01/14/25 History mL subcutaneous auto-injector (Xyosted) montelukast 10 mg tablet 10 mg PO DAILY 03/28/24 03/20/25 History (Singulair) naloxone 4 mg/actuation nasal 4 mg intranasal Q2M PRN opioid 07/18/24 03/20/25 Rx spray (Narcan) overdose #1 ea atenolol 25 mg tablet 25 mg 12/24/24 History oxycodone-acetaminophen 5 mg-325 1 tab PO QID PRN pain #120 tabs 02/14/25 03/20/25 Rx mg tablet (Percocet) clarithromycin 250 mg tablet mg 03/20/25 History methocarbamol 750 mg tablet 750 mg PO Q8H #20 tabs 03/20/25 Rx phentermine 37.5 mg capsule mg 03/20/25 History oxycodone-acetaminophen 5 mg-325 1 tab PO QID PRN pain #120 tabs 04/17/25 Rx mg tablet (Percocet) oxycodone-acetaminophen 5 mg-325 1 tab PO QID PRN pain #120 tabs 05/16/25 Rx mg tablet (Percocet) oxycodone-acetaminophen 5 mg-325 1 tab PO QID PRN pain #120 tabs 06/18/25 Rx mg tablet (Percocet) Allergies Allergy/AdvReac Type Severity Reaction Status Date / Time No Known Drug Allergies Allergy Verified 03/20/25 14:39 Exam Constitutional Documenting provider has reviewed patient's vital signs: yes Common normals: no apparent distress, oriented x3, healthy appearing, alert and well nourished General appearance: cooperative HENMT Common normals: normocephalic, hearing grossly normal bilaterally and moist oral mucous membranes Head and scalp: normocephalic Eye Common normals: PERRL Pupil: PERRL Neck & C-Spine Common normals: full ROM General: normal visual inspection Chest Common normals: inspection of chest normal Respiratory Common normals: normal respiratory effort, no retractions and no use of accessory muscles Back & Pelvis Lumbar spine/lower back: ROM limited, pain with ROM, lumbar spinal tenderness and straight leg raise positive left Sacroiliac joints: SI joint(s) abnormal Other: left sij positive sho(patricks), gaenslens, thigh thrust, compression test strength 3/5 in LLE and 5/5 in RLE decreased sensation to left L3,4,5 Extremity Left lower extremity: hip joint Other: moderate pain with internal/external rotation, improved from prior Neuro Common normals: oriented x3 Sensorium/orientation: alert Psych Common normals: mental status grossly normal, thought process normal, cooperative, affect normal, speech normal and activity/motor behavior normal Speech: normal speech Thought process: normal thought process Results Additional Findings Additional findings: If on a controlled substance or opioids, I have checked an [place]AR[place] report on this patient and there are no aberrancies noted in the prescribing history.??If on a controlled substance or opioid a drug screen was completed and reviewed within the last year, and if there has not been a drug screen completed we ordered one today to monitor higher risk, state monitored pain medication use. As part of providing excellent, safe, comprehensive care, the following was completed at our patient's visit: 1. A medication reconciliation and review to ensure accurate knowledge of current/active medications, including asking our patients to inform us about any yipe-hot-rvljlyk medications or herbal remedies/nutritional supplements/alternative remedies. 2. A review to specifically ensure our patients have had annual screening for screening for depression, screening for tobacco use, and screening for unhealthy alcohol use. For concerning screenings had a discussion with the patient, provided patient education, and recommended follow-up with primary care provider when appropriate. If patient noted with a risk of falling, they received education on strength, gait, and balance training to prevent future risk of falling. Portions of this note may have been carried over from the previous visit and updated as appropriate. Please note this office utilizes paper charting in addition to the electronic medical record. A list of current medications, vitals, and PMH is available there as the clinical staff outside of myself do not have access to [employer] charting during the clinic day operations. As part of providing quality comprehensive care the current medications, vitals, and PMH were reviewed in the paper chart. Assessment and Plan Assessment and Plan (1) Lumbar stenosis with neurogenic claudication: Assessment and Plan: 12/24/24 left L3-4 L4-5 TFESI > 50% improvement for 3 months The patient has had over 3 months of moderate to severe low back and LLE pain with functional impairment and inadequate response to conservative care including NSAIDS (unless there are contraindication such as concurrent blood thinners), multiple oral or topical pain medications, and home exercise program/physical therapy.? Patient has completed >6 weeks of guided home exercise program and/or formal physical therapy program without relief of their symptoms.? I have reviewed the imaging of the lumbar spine and no red flags were identified.? The imaging reveals radiographic findings consistent with lumbar ddd, lumbar stenosis with NC, lumbar spondylosis The Oswestry Disability Index was completed, and the patient scored a 40%.? The patient noted the following:?? moderate to severe pain with ADLs, sitting, standing, walking, sleeping, social life, travel We discussed the risks and benefits of the procedure with the patient, and we are NOT planning on using sedation as outlined in the guidelines from Medicare unless there is a documented reason that sedation would be strongly recommended.?? ?The procedure will be completed with fluoroscopic guidance.? (2) Sacroiliitis: (3) Encounter for long-term opiate analgesic use: Plan repeat left L3-4 L4-5 TFESI under fluoroscopy continue restart methocarbamol 750mg TID PRN pain/spasms continue percocet 5-325 mg qid prn moderate to severe pain request NS consultation notes, no upcoming surgery. pt pending cervical and lumbar MRI f/u 2 weeks after repeat injection, consider left SIJ injection
== END 2025-07-03 09:58 | disposition home or self-care (01) ==
LOC: PM 09:58
PROVIDERS: PCP Family Medicine; Visit Provider Nurse Practitioner
DX: M48.062 Spinal stenosis, lumbar region with neurogenic claudication (principal); M46.1 Sacroiliitis, not elsewhere classified; Z79.891 Long term (current) use of opiate analgesic
CPT/HCPCS: G0463

== ENCOUNTER 2025-07-08 08:42 | Day surgery (SDC) | payer OTHER, SELFPAY ==
--- OUTSIDE RECORDS SUMMARY | 2025-07-08 08:47 | XMS_ITS | Encounter Summary ---
Author Organization [facility] Address [address] [place] [address] Care Team Providers Care Custom Framing Specialist Name Role Phone Rosa Barker MD Unavailable Shaikh CURRY Malik Primary Care Provider [phone] Nikunj Yanez MD Primary Care Provider [phone] Sandee Santoyo NP Unavailable [phone] Encounter Details DateTypeDepartmentCare Team (Latest Contact Info)Lsigzeclwfo98/01/2024Clinisync Result Encounter [facility] External Department Unsolicited Provider, Generic External Data Social History Tobacco UseTypesPacks/DayYears UsedDateSmoking Tobacco: FormerCigarettes Smokeless Tobacco: NeverAlcohol UseStandard Drinks/WeekCommentsNever0 (1 standard drink = 0.6 oz pure alcohol)B1300 Health LiteracyAnswerDate RecordedHow often do you need to have someone help you when you read instructions, pamphlets, or other written material from your doctor or pharmacy?Patient declines to ufndplu2406/05/2024Humiliation, Afraid, Rape, and Kick questionnaire AnswerDate RecordedWithin [...] relatives?Twice a week06/05/2024How often do you attend sikh or yarsani services?More than 4 times per year06/05/2024o you belong to any clubs or organizations such as sikh groups, unions, [employer] or athletic groups, or school groups?No06/05/2024How often do you attend meetings of the clubs or organizations you belong to?Never06/05/2024re you , , , , never , or living with a partner?Jnycnqam05/01/2024UDIT-C AnswerDate RecordedQ1: How often do you have [...] hard at all06/05/2024 PHQ-2AnswerDate RecordedPatient Health Questionnaire-2 Gijuf133[facility] [place] of Occupational Health - Occupational Stress QuestionnaireAnswerDate [...] you engage in exercise at this level?Patient czyjbkwo52/01/2024Hunger Vital SignAnswerDate RecordedWithin the past 12 months, [...] steady place to sleep or slept in [place] (including now)?No08/18/2023Housing Stability Vital SignAnswerDate RecordedIn the last 12 months, was there a time when you were not able to pay the mortgage or rent on time?No06/05/2024Number of Times Moved in the Last YearNot on file06/05/2024t any time in the past 12 months, were you homeless or living in a chcf (including now)?No06/05/2024Sex and Gender InformationValueDate RecordedSex Assigned at BirthNot on fileLegal SexMale 11/17/2022 7:09 PM EDTGender IdentityNot on fileSexual OrientationNot on file documented as of this encounter Functional Status * AUDIT-C ScoreAnswerDate of RjxlerkkdeDotjni213/01/2024 5:08 PM Mayi, Generic * Q1: How often do you have a drink containing alcohol?AnswerDate of Assessment MbqrnxNabsp73/01/2024 5:08 PM Mayi Generic * Q2: How many drinks containing alcohol do you have on a typical day when you are drinking?AnswerDate of AssessmentAuthorPatient does not drink06/05/2024 5:08 PM Mayi, Generic * Q3: How often do you have six or more drinks on one occasion?AnswerDate of ScxxhopioqEihvwsWfkvr59/01/2024 5:08 PM Fletcher See * Over the past 2 weeks, how often have you been bothered by any of the following problems?QuestionAnswerDate of AssessmentAuthorLittle interest or pleasure in doing thingsNot at all01/25/2025 10:00 AM Misti Felix MA Feeling down, depressed, or hopelessNot at all01/25/2025 10:00 AM Misti Felix MAPatient Health Questionnaire-2 Mbilx142 10:00 AM Misti Felix MA * QuestionAnswerDate [...] 10:00 AM Misti Felix MAPatient Health Questionnaire-9 Jyviv256 10:00 AM Misti Felix MA documented as of this encounter Plan of Treatment DateTypeDepartmentCare Team (Latest Contact Info)Oigighlafvs41/08/2025 10:20 AM ESTOffice Visit [facility] [address] [place] [address] Husam Muñoz MD [address] [place] [address] documented as of this encounter Procedures Procedure NamePriorityDate/TimeAssociated DiagnosisCommentsXR KNEE 4+ VIEWS LEFT 12/05/2023 12:49 PM EDT documented in this encounter Results * XR knee 4+ views left (12/05/2023 12:49 PM EDT)Anatomical RegionLaterality ModalityLower Extremities, KneeLeftRadiographic ImagingSpecimen (Source) Anatomical Location / LateralityCollection Method / VolumeCollection Time Received Time12/05/2023 12:49 PM EDT Narrative 12/05/2023 12:52 PM EDT [facility] ?[address] ? [place] [address] ?XRay Report ? Signed ? Patient: PETE,RIGO N ?MR#: [id number] ?? : 1960 ?Acct:[id number] ?? Age/Sex: 63 / M ?ADM Date: 12/03/23 ?? Loc: RAD ? Attending Dr: Pedro Del Real PLANNING CONSULTANT ? Ordering Physician: Pedro Del Real NP ?? Date of Service: 12/03/23 ?? Procedure(s): XR knee LT 4V ?? Accession Number(s): [id number] ? cc: Shaikh Meka Malik; Pedro Del Real NP ? [facility] ? [address] ? [place] [address] ? Patient Name: ?? RIGO PETE ? MRN: [id number] ? date: 1960 ?Sex: M ?? Assigned Patient Location: RAD ?? Current Patient Location: RAD ?? Accession/Order Number: [id number] ?? Exam Date: 12/03/2023 ??15:20 ?Report Date: [...] ?12/05/232 ? DD/ 1249 ? TD/TT: ? Casino Runner: Procedure Note Radiology, Radiologist, - 12/08/2023 [place] [address] XRay Report Signed Patient: RIGO PETE NMR#: [id number] : 1960cct:[id number] Age/Sex: 63 / MADM Date: 12/03/23 Loc: [facility] Attending Dr: Pedro Del Real NP Ordering Physician: Pedro Del Real NP Date of Service: 12/03/23 Procedure(s): XR knee LT 4V Accession Number(s): [id number] cc: Shaikh Meka Malik; Pedro Del Real NP [facility] [place] [id number] Patient Name: RIGO PETE MRN: [id number] date: 1960 Sex: M Assigned Patient [facility]: [facility] Current Patient Location: RAD Accession/Order Number: [id number] Exam Date: 12/03/2023 15:20 Report Date: 12/05/2023 [...] M.D. Signed By:12/05/23 1252 DD/ 1249 TD/TT: Casino Runner: Authorizing ProviderResult TypeResult StatusGeneric External Data ProviderIMG XR PROCEDURESFinal Result documented in this encounter Visit Diagnoses Not on filedocumented in this encounter Care Teams Team MemberRelationshipSpecialtyStart DateEnd Date Rosa Barker MD [address] [address] PCP - Devoted09/05/22 Shaikh Malik MD [address] [facility] [address] [place] [address] PCP - GeneralInternal Medicine/12/27 Nikunj Yanez MD [address] [facility] [address] [place] [address] PCP - GeneralFamily Medicine04/09/24 Sandee Santoyo NP [address] [facility] [address] [place] [address] Nurse PractitionerFamily Medicine/documented as of this encounter
--- OUTSIDE RECORDS SUMMARY | 2025-07-08 08:47 | XMS_ITS | Encounter Summary ---
Author Organization [facility] Address [address] [place] [address] Care Team Providers Care Deputy Head Name Role Phone Rosa Barker MD Unavailable Nikunj Yanez MD Primary Care Provider [phone] Sandee Santoyo NP Unavailable [phone] Encounter Details DateTypeDepartmentCare Team (Latest Contact Info)Yvmsnmwaicl07/20/2024Clinisync Result Encounter [facility] External Department Unsolicited Provider, Generic External Data Social History Tobacco UseTypesPacks/DayYears UsedDateSmoking Tobacco: FormerCigarettesPassive Smoke Exposure: PastSmokeless Tobacco: NeverAlcohol UseStandard Drinks/Week CommentsNever0 (1 standard drink = 0.6 oz pure alcohol)B1300 Health Literacy AnswerDate RecordedHow often do you need to have someone help you when you read instructions, pamphlets, or other written material from your doctor or pharmacy? Patient declines to cfwdwot0806/05/2024Humiliation, Afraid, Rape, and Kick questionnaireAnswerDate RecordedWithin the [...] relatives?Twice a week06/05/2024How often do you attend judaism or quaker services?More than 4 times per year06/05/2024o you belong to any clubs or organizations such as judaism groups, unions, fraternal or athletic groups, or school groups?No06/05/2024How often do you attend meetings of the clubs or organizations you belong to?Never06/05/2024re you , , , , never , or living with a partner?Clojrcfr49/01/2024UDIT-C AnswerDate RecordedQ1: How often do you have [...] hard at all06/05/2024 PHQ-2AnswerDate RecordedPatient Health Questionnaire-2 Mgoiu476Finamerican fork hospital [place] of Occupational Health - Occupational Stress QuestionnaireAnswerDate RecordedDo you feel stress - tense, restless, nervous, or anxious, or unable to sleep at night because yourmind is troubled all the time - these days?Patient ydxvkklx61/01/2024Exercise Vital SignAnswerDate RecordedOn average, how many days per week do you engage in moderate to strenuous exercise (like a brisk wal k)?0 days06/05/2024On average, how many minutes do you engage in exercise at this level?Patient qbxuoyby97/01/2024Hunger Vital SignAnswerDate RecordedWithin the past 12 months, [...] were you homeless or living in a long-term (including now)?No06/05/2024Sex and Gender InformationValueDate RecordedSex Assigned [...] 10:00 AM Misti Felix MAPatient Health Questionnaire-2 Csufb070 10:00 AM Misti Felix MA * QuestionAnswerDate [...] 10:00 AM Misti Felix MAPatient Health Questionnaire-9 Ldfmy721 10:00 AM Misti Felix MA documented as of this encounter Plan of Treatment DateTypeDepartmentCare Team (Latest Contact Info)Uvzisehvmuc48/08/2025 10:20 AM ESTOffice Visit [facility] [address] [place] [address] Husam Muñoz MD [address] [place] [address] documented as of this encounter Procedures Procedure NamePriorityDate/TimeAssociated DiagnosisCommentsRT PULMONARY FUNCTION TEST08/24/2024 8:44 AM EST documented in this encounter Results * RT PULMONARY FUNCTION TEST (08/24/2024 8:44 AM EST)Anatomical RegionLaterality ModalityOtherSpecimen (Source)Anatomical Location / LateralityCollection Method / VolumeCollection TimeReceived Time08/24/2024 8:44 AM EST Narrative 08/27/2024 7:49 AM EST [facility] ?[address] ? [place] [address] ? Respiratory Report ? Signed ? Patient: PETE,RIGO N ?MR#: [id number] ?? : 1960 ?Acct:[id number] ?? Age/Sex: 64 / M ?ADM Date: 12/20/24 ?? Loc: CT ? Attending Dr: Aly Mosley D.O. ? Ordering Physician: Aly Mosley D.O. ?? Date of Service: 08/24/24 ?? Procedure(s): RT pulmonary function test ?? Accession Number(s): [id number] ? cc: ?[facility] ? Test Date: ?2024-08-24 ?? Pat Name: ? RIGO BLACKENSHIP ?Department: ? Room: ? - ?? Gender: ? Male ? Wireless Sales Expert: ?? Emily Mckenna RRT ?? : ?1960 ? Requested By: Aly Mosley ?? Order Number: [id number] ?Reading MD: ?? Aly Mosley ? Interpretive [...] 0749 ?08/27/2449 ? DD/ ? TD/TT: ? Social Media Sr Strategy Manager: Procedure Note Radiology, Radiologist, MD - 08/27/2024 [place] [address] Respiratory Report Signed Patient: RIGO PETE NMR#: [id number] : 9Acct:[id number] Age/Sex: 64 / MADM Date: 08/24/24 Loc: CT Attending Dr: Aly Mosley D.O. Ordering Physician: Aly Mosley D.O. Date of Service: 08/24/24 Procedure(s): RT pulmonary function test Accession Number(s): [id number] cc: [facility] Test Date: 2024-08-24 Pat Name: RIGO PETE Department: Room: - Gender: Male Wireless Sales Expert: Emily Mckenna RRT : 1960 Requested By: Aly Mosley Order Number: [id number] Reading MD: Aly Mosley Interpretive Statements Pulmonary [...] By:08/27/24 0749 08/27/24 0749 DD/ 0844 TD/TT: Social Media Sr Strategy Manager: Authorizing ProviderResult TypeResult StatusGeneric External Data Provider CLINISYNC IMAGINGFinal Result documented in this encounter Visit Diagnoses Not on filedocumented in this encounter Care Teams Team MemberRelationshipSpecialtyStart DateEnd Date Rosa Barker MD [address] [place] [address] [address] PCP - [facility]09/05/22 Nikunj Yanez MD [address] [place] [address] [address] PCP - [facility]FaP[facility]04/09/24 Sandee Santoyo NP [address] [place] [address] [address] Nurse PractitionerFamily Medicine/documented as of this encounter
--- OUTSIDE RECORDS SUMMARY | 2025-07-08 08:47 | XMS_ITS | Encounter Summary ---
Author Organization [facility] Address [address] [place] [address] Care Team Providers Care Major Account Manager Name Role Phone Rosa Barker MD Unavailable Shaikh CURRY Malik Primary Care Provider [phone] Nikunj Yanez MD Primary Care Provider [phone] Sandee Santoyo NP Unavailable [phone] Encounter Details DateTypeDepartmentCare Team (Latest Contact Info)Bnyqlzdculm27/01/2024Clinisync Result Encounter [facility] External Department Unsolicited Provider, Generic External Data Social History Tobacco UseTypesPacks/DayYears UsedDateSmoking Tobacco: FormerCigarettes Smokeless Tobacco: NeverAlcohol UseStandard Drinks/WeekCommentsNever0 (1 standard drink = 0.6 oz pure alcohol)B1300 Health LiteracyAnswerDate RecordedHow often do you need to have someone help you when you read instructions, pamphlets, or other written material from your doctor or pharmacy?Patient declines to qpmnzdz3306/05/2024Humiliation, Afraid, Rape, and Kick questionnaire AnswerDate RecordedWithin [...] week06/05/2024How often do you attend methodist or sikh services?More than 4 times per year06/05/2024o you belong to any clubs or organizations such as methodist groups, unions, fraDynadmic or athletic groups, or school groups?No06/05/2024How often do you attend meetings of the clubs or organizations you belong to?Never06/05/2024re you , , , , never , or living with a partner?Hsqztmho44/01/2024UDIT-C AnswerDate RecordedQ1: How often do you have [...] hard at all06/05/2024 PHQ-2AnswerDate RecordedPatient Health Questionnaire-2 Itcbc049Finfillmore [facility] [place] of Occupational Health - Occupational Stress QuestionnaireAnswerDate RecordedDo you feel stress - tense, restless, nervous, or anxious, or unable to sleep at night because yourmind is troubled all the time - these days?Patient xbkplmer63/01/2024Exercise Vital SignAnswerDate RecordedOn average, how many days per week do you engage in moderate to strenuous exercise (like a brisk wal k)?0 days06/05/2024On average, how many minutes do you engage in exercise at this level?Patient kqlzhaoy99/01/2024Hunger Vital SignAnswerDate RecordedWithin the past 12 months, [...] steady place to sleep or slept in [place] (including now)?No08/18/2023Housing Stability Vital SignAnswerDate RecordedIn the last 12 months, was there a time when you were not able to pay the mortgage or rent on time?No06/05/2024Number of Times Moved in the Last YearNot on file06/05/2024t any time in the past 12 months, were you homeless or living in a detention (including now)?No06/05/2024Sex and Gender InformationValueDate RecordedSex Assigned at BirthNot on fileLegal SexMale 11/17/2022 7:09 PM EDTGender IdentityNot on fileSexual OrientationNot on file documented as of this encounter Functional Status * AUDIT-C ScoreAnswerDate of JazyczxuthJefjaa374/01/2024 5:08 PM Mayi, Generic * Q1: How often do you have a drink containing alcohol?AnswerDate of Assessment BbrzcbMdnoc53/01/2024 5:08 PM Mayi Generic * Q2: How many drinks containing alcohol do you have on a typical day when you are drinking?AnswerDate of AssessmentAuthorPatient does not drink06/05/2024 5:08 PM Mayi, Generic * Q3: How often do you have six or more drinks on one occasion?AnswerDate of BlwazeevksTiwekmRqvli71/01/2024 5:08 PM Fletcher See * Over the past 2 weeks, how often have you been bothered by any of the following problems?QuestionAnswerDate of AssessmentAuthorLittle interest or pleasure in doing thingsNot at all01/25/2025 10:00 AM Misti Felix MA Feeling down, depressed, or hopelessNot at all01/25/2025 10:00 AM Misti Felix MAPatient Health Questionnaire-2 Eybwz821 10:00 AM Misti Felix MA * QuestionAnswerDate [...] 10:00 AM Misti Felix MAPatient Health Questionnaire-9 Toplk097 10:00 AM Misti Felix MA documented as of this encounter Plan of Treatment DateTypeDepartmentCare Team (Latest Contact Info)Cchdcphomub74/08/2025 10:20 AM ESTOffice Visit [facility] [place] [facility] [address] [place] [address] Husam Muñoz MD [address] [place] [address] documented as of this encounter Procedures Procedure NamePriorityDate/TimeAssociated DiagnosisCommentsXR HIPS BILATERAL 2 VW WITH OR WITHOUT ZCTFRJ1012/05/2023 10:52 AM EDT documented in this encounter Results * XR hips bilateral 2 views (12/05/2023 10:52 AM EDT)Anatomical RegionLaterality ModalityLower Extremities, HipBilateralRadiographic ImagingSpecimen (Source) Anatomical Location / LateralityCollection Method / VolumeCollection Time Received Time12/05/2023 10:52 AM EDT Narrative 12/05/2023 10:55 AM EDT [facility] ?[address] ? [place] [address] ?XRay Report ? Signed ? Patient: PETE,RIGO N ?MR#: [id number] ?? : 1960 ?Acct:[id number] ?? Age/Sex: 63 / M ?ADM Date: 12/03/23 ?? Loc: RAD ? Attending Dr: Pedro Del Real SERVICE STATION CONSOLE OPERATOR ? Ordering Physician: Pedro Del Real NP ?? Date of Service: 12/03/23 ?? Procedure(s): XR hip LUANN ?? Accession Number(s): [id number] ? cc: Shaikh Meka Malik; Pedro Del Real NP ? [facility] ? [address] ? [place] [address] ? Patient Name: ?? RIGO PETE ? MRN: [id number] ? date: 1960 ?Sex: M ?? Assigned Patient Location: RAD ?? Current Patient Location: ? Accession/Order Number: [id number] ?? Exam Date: 12/03/2023 ??15:20 ?Report Date: [...] ?12/05/231054 ? DD/ 1052 ? TD/TT: ? Clinical Data Assistant: Procedure Note Radiology, Radiologist, MD - 12/08/2023 [place] [address] XRay Report Signed Patient: RIGO PETE NMR#: [id number] : 1960cct:[id number] Age/Sex: 63 / MADM Date: 12/03/23 Loc: [facility] Attending Dr: Pedro Del Real NP Ordering Physician: Pedro Del Real NP Date of Service: 12/03/23 Procedure(s): XR hip LUANN Accession Number(s): [id number] cc: Shaikh Meka Malik; Pedro Del Real NP The [address] [address] Patient Name: RIGO PETE MRN: [id number] date: 1960 Sex: M Assigned Patient Location: [facility] Current Patient Location: Accession/Order Number: [id number] Exam Date: 12/03/2023 15:20 Report Date: 12/05/2023 [...] M.D. Signed By:12/05/23 1055 DD/ 1052 TD/TT: Clinical Data Assistant: Authorizing ProviderResult TypeResult StatusGeneric External Data ProviderIMG XR PROCEDURESFinal Result documented in this encounter Visit Diagnoses Not on filedocumented in this encounter Care Teams Team MemberRelationshipSpecialtyStart DateEnd Date Rosa Barker MD [address] [facility] [address] [place] [address] PCP - Devoted09/05/22 Shaikh Malik MD [address] [facility] [address] [place] [address] PCP - GeneralInternal Medicine/12/27 Nikunj Yanez MD [address] [facility] [address] [place] [address] PCP - GeneralFamily Medicine04/09/24 Sandee Santoyo NP [address] [facility] [address] [place] [address] Nurse PractitionerFamily Medicine/documented as of this encounter
--- OUTSIDE RECORDS SUMMARY | 2025-07-08 08:47 | XMS_ITS | Clinical Summary ---
Author Organization [facility] Address [address] [place] [address] Phone Care Team Providers Care Head School Custodian Name Role Phone Unavailable Primary Care Provider Unavailabl e Social History Tobacco UseTypesPacks/DayYears UsedDateSmoking Tobacco: Never AssessedSex and Gender InformationValueDate RecordedSex Assigned at BirthNot on fileLegal Sex Male07/31/2022 4:30 PM ESTGender IdentityNot on fileSexual OrientationNot on file Last Filed Vital Signs Vital SignReadingTime TakenCommentsBlood Krclxain188/8505 11:12 AM EDT Ryokq2492 11:12 AM JAEZltohetdekb95.6 ??C (96.1 ??F)01/27/2021 11:12 AM EDTRespiratory Rate--Oxygen Saturation--Inhaled Oxygen Concentration--Krikuu778 kg (248 lb)01/27/2021 11:12 AM EDTHeight--Body Mass Index-- Plan of Treatment Not on file Medical Devices ImplantedTypeAreaManufacturerDevice IdentifierShelf Expiration DateModel / Serial / LotKit, Pacing, Diaphragm, Synapse Case [id number] Implanted:Qty: 1 on 12/12/2017 by Daniel Caballero MDImplantSYNAPSE BIOMEDICAL INC08/04/[id number] / [id number] / [id number]:Converted from [facility]. Please see archived information for full log information.
--- OUTSIDE RECORDS SUMMARY | 2025-07-08 08:47 | XMS_ITS | Encounter Summary ---
Author Organization [facility] Address [address] [place] [address] Care Team Providers Care Dedicated Owner Operator Name Role Phone Rosa Barker MD Unavailable Shaikh CURRY Malik Primary Care Provider [phone] Nikunj Yanez MD Primary Care Provider [phone] Sandee Santoyo NP Unavailable [phone] Encounter Details DateTypeDepartmentCare Team (Latest Contact Info)Ucraktyjdnj09/30/2024Clinisync Result Encounter [facility] External Department Unsolicited Provider, Generic External Data Social History Tobacco UseTypesPacks/DayYears UsedDateSmoking Tobacco: FormerCigarettesPassive Smoke Exposure: PastSmokeless Tobacco: NeverAlcohol UseStandard Drinks/Week CommentsNever0 (1 standard drink = 0.6 oz pure alcohol)B1300 Health Literacy AnswerDate RecordedHow often do you need to have someone help you when you read instructions, pamphlets, or other written material from your doctor or pharmacy? Patient declines to bhsgclv0606/05/2024Humiliation, Afraid, Rape, and Kick questionnaireAnswerDate RecordedWithin the [...] relatives?Twice a week06/05/2024How often do you attend pentecostalism or scientology services?More than 4 times per year06/05/2024o you belong to any clubs or organizations such as pentecostalism groups, unions, fraBaila Games or athletic groups, or school groups?No06/05/2024How often do you attend meetings of the clubs or organizations you belong to?Never06/05/2024re you , , , , never , or living with a partner?Bclflkqv94/01/2024UDIT-C AnswerDate RecordedQ1: How often do you have [...] hard at all06/05/2024 PHQ-2AnswerDate RecordedPatient Health Questionnaire-2 Uduuc640Fincache [facility] [place] of Occupational Health - Occupational Stress QuestionnaireAnswerDate RecordedDo you feel stress - tense, restless, nervous, or anxious, or unable to sleep at night because yourmind is troubled all the time - these days?Patient vmrcjagq34/01/2024Exercise Vital SignAnswerDate RecordedOn average, how many days per week do you engage in moderate to strenuous exercise (like a brisk wal k)?0 days06/05/2024On average, how many minutes do you engage in exercise at this level?Patient rfoqebtj24/01/2024Hunger Vital SignAnswerDate RecordedWithin the past 12 months, [...] steady place to sleep or [facility] in [facility] (including now)?No08/18/2023Housing Stability Vital SignAnswerDate RecordedIn the last 12 months, was there a time when you were not able to pay the mortgage or rent on time?No06/05/2024Number of Times Moved in the Last YearNot on file06/05/2024t any time in the past 12 months, were you homeless or living in a long term (including now)?No06/05/2024Sex and Gender InformationValueDate RecordedSex Assigned at BirthNot on fileLegal SexMale 11/17/2022 7:09 PM EDTGender IdentityNot on fileSexual OrientationNot on file documented as of this encounter Functional Status * AUDIT-C ScoreAnswerDate of ClrtyhbqhvUeamvf714/01/2024 5:08 PM EDMike, Generic * Q1: How often do you have a drink containing alcohol?AnswerDate of Assessment ZlvxzsVyrhr31/01/2024 5:08 PM EDMike, Generic * Q2: How many drinks containing alcohol do you have on a typical day when you are drinking?AnswerDate of AssessmentAuthorPatient does not drink06/05/2024 5:08 PM EDMike, Generic * Q3: How often do you have six or more drinks on one occasion?AnswerDate of ApknbsqksaOfjupxEodwo30/01/2024 5:08 PM Fletcher See * Over the past 2 weeks, how often have you been bothered by any of the following problems?QuestionAnswerDate of AssessmentAuthorLittle interest or pleasure in doing thingsNot at all01/25/2025 10:00 AM Misti Felix MA Feeling down, depressed, or hopelessNot at all01/25/2025 10:00 AM Misti Felix MAPatient Health Questionnaire-2 Lokzb021 10:00 AM Misti Felix MA * QuestionAnswerDate [...] 10:00 AM Misti Felix MAPatient Health Questionnaire-9 Pkffg201 10:00 AM Misti Felix MA documented as of this encounter Plan of Treatment DateTypeDepartmentCare Team (Latest Contact Info)Pqacmnphucr39/08/2025 10:20 AM ESTOffice Visit [facility] [place] [facility] [address] [place] [address] Husam Muñoz MD [address] [place] [address] documented as of this encounter Procedures Procedure NamePriorityDate/TimeAssociated DiagnosisCommentsMR LUMBAR SPINE WO CON04/03/2024 4:10 PM EDT documented in this encounter Results * MR LUMBAR SPINE WO CON (04/03/2024 4:10 PM EDT)Anatomical RegionLaterality ModalityOtherSpecimen (Source)Anatomical Location / LateralityCollection Method / VolumeCollection TimeReceived Time04/03/2024 4:10 PM EDT Narrative 04/03/2024 4:13 PM EDT [facility] ?[address] ? [place] [address] ? Magnetic Resonance Report ? Signed ? Patient: PETE,RIGO N ?MR#: [id number] ?? : 1960 ?Acct:[id number] ?? Age/Sex: 64 / M ?ADM Date: 04/03/24 ?? Loc: MRI ? Attending Dr: Pedro Del Real BRANCH LEAD ? Ordering Physician: Pedro Del Real BRANCH LEAD ?? Date of Service: 04/03/24 ?? Procedure(s): MR lumbar spine wo con ?? Accession Number(s): [id number] ? cc: Shaikh Meka Malik; Pedro Del Real NP ? [facility] ? [address] ? [place] [address] ? Patient Name: ?? RIGO PETE ? MRN: [id number] ? date: 1960 ?Sex: M ?? Assigned Patient Location: MRI ?? Current Patient Location: PM ?? Accession/Order Number: [id number] ?? Exam Date: 04/03/2024 ??09:09 ?Report Date: [...] 1613 ? DD/ 1610 ? TD/TT: ? Termination Clerk: Procedure Note Radiology, Radiologist, MD - 04/03/[address] [address] Magnetic Resonance Report Signed Patient: RIGO PETE [facility]#: [id number] : 9Acct:[id number] Age/Sex: 64 / MADM Date: 04/03/24 Loc: MRI Attending Dr: Pedro Del Real NP Ordering Physician: Pedor Del Real NP Date of Service: 04/03/24 Procedure(s): MR lumbar spine wo con Accession Number(s): [id number] cc: Shaikh Meka Malik; Pedro Del Real NP [place] [address] Patient Name: RIGO PETE MRN: [id number] date: 1960 Sex: M Assigned Patient Location: MRI Current Patient Location: Accession/Order Number: [id number] Exam Date: 04/03/2024 09:09 Report Date: 04/03/2024 [...] Diaz M.D. Signed By:04/03/241612 DD/ 09 TD/TT: Termination Clerk: Authorizing ProviderResult TypeResult StatusGeneric External Data Provider CLINISYNC IMAGINGFinal Result documented in this encounter Visit Diagnoses Not on filedocumented in this encounter Care Teams Team MemberRelationshipSpecialtyStart DateEnd Date Rosa Barker MD [address] [address] PCP - Devoted09/05/22 Shaikh Malik MD [address] [address] PCP - GeneralInternal Medicine Nikunj Yanez MD [address] [address] PCP - GeneralFamily Medicine04/09/24 Sandee Santoyo NP [address] [address] Nurse PractitionerFamily Medicine/documented as of this encounter
--- OUTSIDE RECORDS SUMMARY | 2025-07-08 08:47 | XMS_ITS | Encounter Summary ---
Author Organization [facility] Address [address] [place] [address] Care Team Providers Care Board Of Education Secretary Name Role Phone Rosa Barker MD Unavailable Nikunj Yanez MD Primary Care Provider [phone] Sandee Cage NP Unavailable [phone] Encounter Details DateTypeDepartmentCare Team (Latest Contact Info)Yoylfdobdhk31/21/2024Clinisync Result Encounter [facility] External Department Unsolicited Provider, Generic External Data Social History Tobacco UseTypesPacks/DayYears UsedDateSmoking Tobacco: FormerCigarettesPassive Smoke Exposure: PastSmokeless Tobacco: NeverAlcohol UseStandard Drinks/Week CommentsNever0 (1 standard drink = 0.6 oz pure alcohol)B1300 Health Literacy AnswerDate RecordedHow often do you need to have someone help you when you read instructions, pamphlets, or other written material from your doctor or pharmacy? Patient declines to ohynuxd5606/05/2024Humiliation, Afraid, Rape, and Kick questionnaireAnswerDate RecordedWithin the [...] relatives?Twice a week06/05/2024How often do you attend mandaeism or sikh services?More than 4 times per year06/05/2024o you belong to any clubs or organizations such as mandaeism groups, unions, fraternal or athletic groups, or school groups?No06/05/2024How often do you attend meetings of the clubs or organizations you belong to?Never06/05/2024re you , , , , never , or living with a partner?Jjtuequs89/01/2024UDIT-C AnswerDate RecordedQ1: How often do you have [...] hard at all06/05/2024 PHQ-2AnswerDate RecordedPatient Health Questionnaire-2 Ftryy548Finuniversity of [facility] hospital [place] of Occupational Health - Occupational Stress QuestionnaireAnswerDate [...] you engage in exercise at this level?Patient umejxbnv02/01/2024Hunger Vital SignAnswerDate RecordedWithin the past 12 months, [...] were you homeless or living in a [facility] (including now)?No06/05/2024Sex and Gender InformationValueDate RecordedSex Assigned [...] 10:00 AM Misti Felix MAPatient Health Questionnaire-2 Figkb977 10:00 AM Misti Felix MA * QuestionAnswerDate [...] 10:00 AM Misti Felix MAPatient Health Questionnaire-9 Ocnge222 10:00 AM Misti Felix MA documented as of this encounter Plan of Treatment DateTypeDepartmentCare Team (Latest Contact Info)Ydrwiqsyvvr25/08/2025 10:20 AM ESTOffice Visit [facility] [address] [place] [address] Husam Muñoz MD [address] [place] [address] documented as of this encounter Procedures Procedure NamePriorityDate/TimeAssociated DiagnosisCommentsCT CHEST HIGH HUQDGPCEIB50/21/2024 6:00 AM EST documented in this encounter Results * CT CHEST HIGH RESOLUTION (08/25/2024 6:00 AM EST)Anatomical RegionLaterality ModalityRadiographic ImagingSpecimen (Source)Anatomical Location / Laterality Collection Method / VolumeCollection TimeReceived Time08/25/2024 6:00 AM EST Narrative 08/25/2024 6:03 AM EST The [facility] ?[address] ? [place] [address] ? CT Scan Report ? Signed ? Patient: PETE,RIGO N ?MR#: [id number] ?? : 1960 ?Acct:[id number] ?? Age/Sex: 64 / M ?ADM Date: 12/20/24 ?? Loc: CT ? Attending Dr: Jayleen Ashford D.O. ? Ordering Physician: Jayleen Ashford D.O. ?? Date of Service: 08/24/24 ?? Procedure(s): CT chest high res ?? Accession Number(s): [id number] ? cc: SANDEE CAGE ? [facility] ? [address] ? [place] [address] ? Patient Name: ?? RIGO PETE ? MRN: [facility]:[id number] ? date: 1960 ?Sex: M ?? Assigned Patient Location: CT ?? Current Patient Location: ? Accession/Order Number: [id number] ?? Exam Date: 08/24/2024 ??08:09 ?Report Date: [...] 0603 ? DD/ 0600 ? TD/TT: ? Director Global Strategic Publisher Sales: Procedure Note Radiology, Radiologist, MD - 08/25/2024 [place] [address] CT Scan Report Signed Patient: RIGO PETE NMR#: [id number] : 1960cct:[id number] Age/Sex: 64 / MADM Date: 08/24/24 Loc: CT Attending Dr: Jayleen Ashford D.O. Ordering Physician: Jayleen Ashford D.O. Date of Service: 08/24/24 Procedure(s): CT chest high res Accession Number(s): [id number] cc: SANDEE CAGE [address] [address] Patient Name: RIGO PETE MRN: [id number] date: 1960 Sex: M Assigned Patient Location: CT Current Patient Location: Accession/Order Number: [id number] Exam Date: 08/24/2024 08:09 Report Date: 08/25/2024 [...] Tinajero M.D. Signed By:08/25/24602 DD/ 9 TD/TT: Director Global Strategic Publisher Sales: Authorizing ProviderResult TypeResult StatusGeneric External Data ProviderIMG XR PROCEDURESFinal Result documented in this encounter Visit Diagnoses Not on filedocumented in this encounter Care Teams Team MemberRelationshipSpecialtyStart DateEnd Date Rosa Barker MD [address] [address] [address] PCP - [facility]09/05/22 Nikunj Yanez MD [address] [address] [facility]24 Sandee Cage NP [address] [address] Nurse PractitionerFamily Medicine/documented as of this encounter
--- OUTSIDE RECORDS SUMMARY | 2025-07-08 08:47 | XMS_ITS | Encounter Summary ---
Author Organization [facility] Address [address] [place] [address] Care Team Providers Care Veneer Taper Name Role Phone Rosa Barker MD Unavailable Shaikh CURRY Malik Primary Care Provider [phone] Nikunj Yanez MD Primary Care Provider [phone] Sandee Santoyo NP Unavailable Encounter Details DateTypeDepartmentCare Team (Latest Contact Info)Vgsobbfwqzz57/31/2024Clinisync Result Encounter [facility] External Department Unsolicited Provider, Generic External Data Social History Tobacco UseTypesPacks/DayYears UsedDateSmoking Tobacco: FormerCigarettesPassive Smoke Exposure: PastSmokeless Tobacco: NeverAlcohol UseStandard Drinks/Week CommentsNever0 (1 standard drink = 0.6 oz pure alcohol)B1300 Health Literacy AnswerDate RecordedHow often do you need to have someone help you when you read instructions, pamphlets, or other written material from your doctor or pharmacy? Patient declines to xpgitfb5906/05/2024Humiliation, Afraid, Rape, and Kick questionnaireAnswerDate RecordedWithin the [...] relatives?Twice a week06/05/2024How often do you attend confucianist or orthodoxy services?More than 4 times per year06/05/2024o you belong to any clubs or organizations such as confucianist groups, unions, fraIngeny or athletic groups, or school groups?No06/05/2024How often do you attend meetings of the clubs or organizations you belong to?Never06/05/2024re you , , , , never , or living with a partner?Lmgymiid96/01/2024UDIT-C AnswerDate RecordedQ1: How often do you have [...] hard at all06/05/2024 PHQ-2AnswerDate RecordedPatient Health Questionnaire-2 Pvtzw322Finintermountain healthcare [place] of Occupational Health - Occupational Stress QuestionnaireAnswerDate RecordedDo you feel stress - tense, restless, nervous, or anxious, or unable to sleep at night because yourmind is troubled all the time - these days?Patient hgdgkbym61/01/2024Exercise Vital SignAnswerDate RecordedOn average, how many days [...] steady place to sleep or slept in universal [facility] services[facility] (including now)?No08/18/2023Housing Stability Vital SignAnswerDate RecordedIn the [...] encounter Functional Status * AUDIT-C ScoreAnswerDate of BiojbabtpeJqgcvq569/01/2024 5:08 PM EDMike, Generic * Q1: How often do you have a drink containing alcohol?AnswerDate of Assessment EpdforYtphg42/01/2024 5:08 PM EDMike, Generic * Q2: How many drinks containing alcohol do you have on a typical day when you are drinking?AnswerDate of AssessmentAuthorPatient does not drink06/05/2024 5:08 PM EDMike, Generic * Q3: How often do you have six or more drinks on one occasion?AnswerDate of JmtrqvusvnGtnkgfIyswh65/01/2024 5:08 PM Fletcher See * Over the past 2 weeks, how often have you been bothered by any of the following problems?QuestionAnswerDate of AssessmentAuthorLittle interest or pleasure in doing thingsNot at all01/25/2025 10:00 AM Misti Felix MA Feeling down, depressed, or hopelessNot at all01/25/2025 10:00 AM Misti Felix MAPatient Health Questionnaire-2 Xylpm302 10:00 AM Misti Felix MA * QuestionAnswerDate [...] 10:00 AM Misti Felix MAPatient Health Questionnaire-9 Rpkwf281 10:00 AM Misti Felix MA documented as of this encounter Plan of Treatment DateTypeDepartmentCare Team (Latest Contact Info)Xgmdljviwlx07/08/2025 10:20 AM ESTOffice Visit [facility] [place] [facility] [address] [place] [address] Husam Muñoz MD [address] [place] [address] documented as of this encounter Procedures Procedure NamePriorityDate/TimeAssociated DiagnosisCommentsXR LUMBAR SPINE 6V W GTSNFFQ0704/04/2024 2:07 PM EDT documented in this encounter Results * XR LUMBAR SPINE 6V W BENDING (04/04/2024 2:07 PM EDT)Anatomical Region LateralityModalityOtherSpecimen (Source)Anatomical Location / Laterality Collection Method / VolumeCollection TimeReceived Time04/04/2024 2:07 PM EDT Narrative 04/04/2024 2:09 PM EDT [facility] ?[address] ? [place] [address] ?XRay Report ? Signed ? Patient: PETE,RIGO N ?MR#: [id number] ?? : 1960 ?Acct:[id number] ?? Age/Sex: 64 / M ?ADM Date: 04/03/24 ?? Loc: MRI ? Attending Dr: Pedro Del Real COMPENSATION AND BENEFITS ADVISOR ? Ordering Physician: Pedro Del Real NP ?? Date of Service: 04/03/24 ?? Procedure(s): XR lumbar spine 6V w bending ?? Accession Number(s): [id number] ? cc: Shaikh Meka Malik; Pedro Del Real NP ? [facility] ? [address] ? [place] [address] ? Patient Name: ?? RIGO PETE ? MRN: [id number] ? date: 1960 ?Sex: M ?? Assigned Patient Location: MRI ?? Current Patient Location: ? Accession/Order Number: [id number] ?? Exam Date: 04/03/2024 ??09:50 ?Report Date: [...] 1409 ? DD/ 1407 ? TD/TT: ? Senior Analytical Chemist: Procedure Note Radiology, Radiologist, MD - 04/04/2024 [place] [address] XRay Report Signed Patient: RIGO PETE [facility]#: [id number] : 1960cct:[id number] Age/Sex: 64 / MADM Date: 04/03/24 Loc: MRI Attending Dr: Pedro Del Real NP Ordering Physician: Pedro Del Real NP Date of Service: 04/03/24 Procedure(s): XR lumbar spine 6V w bending Accession Number(s): [id number] cc: Shaikh Meka Malik; Pedro Del Real NP The [place] [address] Patient Name: RIGO PETE MRN: [id number] date: 1960 Sex: M Assigned Patient Location: MRI Current Patient Location: Accession/Order Number: [id number] Exam Date: 04/03/2024 09:50 Report Date: 04/04/2024 [...] M.D. Signed By:04/04/24 1409 DD/ 1407 TD/TT: Senior Analytical Chemist: Authorizing ProviderResult TypeResult StatusGeneric External Data Provider CLINISYNC IMAGINGFinal Result documented in this encounter Visit Diagnoses Not on filedocumented in this encounter Care Teams Team MemberRelationshipSpecialtyStart DateEnd Date Rosa Barker MD [address] [place] [address] [address] PCP - Devoted09/05/22 Shaikh Malik MD [address] [place] [address] [address] PCP - GeneralInternal Medicine/12/27 Nikunj Yanez MD [address] [place] [address] [address] PCP - GeneralFamily Medicine04/09/24 Sandee Santoyo NP [address] [place] [address] [address] Nurse PractitionerFamily Medicinedocumented as of this encounter
--- OUTSIDE RECORDS SUMMARY | 2025-07-08 08:47 | XMS_ITS | Clinical Summary ---
Author Organization [facility] Address [address] [place] [address] Care Team Providers Care Speech Teacher Name Role Phone Unavailable Primary Care Provider Unavailabl e Social History Tobacco UseTypesPacks/DayYears UsedDateSmoking Tobacco: Never AssessedSex and Gender InformationValueDate RecordedSex Assigned at BirthNot on fileLegal Sex Male10/08/2012 5:36 AM ESTGender IdentityNot on fileSexual OrientationNot on file Plan of Treatment Health MaintenanceDue DateLast DoneCommentsHEPATITIS C VIRUS TAJKSAJKX1960 XRMDAIV84 1960TDAP (ADULT)1978LIPID EOVRIJMYS02/09/1999COLORECTAL CANCER SCREENING ERKYJRYDCX40/09/2004PNEUMOCOCCAL VACCINE SERIES (1 of 1 - PCV) 2009ZOSTER (SHINGLES) VACCINE (1 of 2)2009PROSTATE CANCER SCREENING BFCMDYPBJI71/09/2014BDOMINAL AORTIC ANEURYSM HIGH RISK HWYGVY9803/13/2024OVID-19 VACCINE (1 - 2024- season)2025INFLUENZA VACCINE (#1)2025RSV VACCINE (1 - 1-dose 75+ series)2034HEP B VACCINEAged OutNo longer eligible based on patient's age to complete this topic
--- OUTSIDE RECORDS SUMMARY | 2025-07-08 08:47 | XMS_ITS | Clinical Summary ---
Author Organization [facility] Address [address] [place] [address], [address] [place] [address] Care Team Providers Care Launch Check Out Name Role Phone Unavailable Primary Care Provider Unavailabl e Social History Tobacco UseTypesPacks/DayYears UsedDateSmoking Tobacco: Never AssessedSex and Gender InformationValueDate RecordedSex Assigned at BirthNot on fileLegal Sex Male10/15/2012 12:32 PM ESTGender IdentityNot on fileSexual OrientationNot on file Plan of Treatment Not on file
--- OUTSIDE RECORDS SUMMARY | 2025-07-08 08:47 | XMS_ITS | Clinical Summary ---
Author Organization [facility] Address [address] [place] [address] Care Team Providers Care Certified Orthotic Fitter Name Role Phone Rosa Barker MD Unavailable Nikunj Yanez MD Primary Care Provider [phone] Allergies No known active allergies Medications MedicationSigDispense [...] Active Problems ProblemNoted DateDiagnosed DateDegenerative lumbar spinal memqqfoa52/22/2025 Assessment & Plan (03/26/2025 11:14 AM EDT): Continued pain and follow with surgeon. Primary osteoarthritis of left hip03/26/2025 Assessment & Plan (03/26/2025 11:14 AM EDT): Continued pain and CT suggestive avascular necrosis. Refer to ortho. Abnormal CT scan03/26/2025 Assessment & Plan (03/26/2025 11:13 AM EDT): CT suggestive avascular necrosis and refer to ortho. Coronary artery disease involving [place] coronary artery of [place] heart without angina jhkucjbz56/23/7090Ralbdmsgswpvfnt31/05/2024ecreased ttgggi8008/09/2024 Paralyzed ihqfowtdfvsut79/02/2024Class 1 obesity due to excess calories with [...] He was referred to GI for Colonoscopy. Jiskmqbtctvv03/14/2023 Assessment & Plan (05/03/2024 2:18 PM EDT): Currently taking Atorvastatin 20mg Denies myalgias. Most recent Lipid Panel WNL. Continue current regimen; Assessment & Plan (11/23/2023 9:37 AM EDT): On Lipitor. Tolerating w/o adverse effects Assessment & Plan (08/20/2023 6:27 PM EST): On Lipitor 20 mg. Check Lipid panel. Hypertensive /14/2023 Assessment & Plan (03/26/2025 11:14 AM EDT): [...] resume his BP meds. Chronic seasonal allergic irytvfps16/14/2023 Assessment & Plan (05/03/2024 2:23 PM EDT): [...] testosterone injections. Following Endocrinology. Chronic obstructive lung alqralj8311/24/2016 Assessment & Plan (03/26/2025 11:13 AM EDT): [...] severe lumbar stenosis Pain management referred to [facility] for further management. Still following with Pain Management- Dr. Stacy. Had epidural last Tuesday- feels pain is well managed since. Taking Oxycodone Q6H PRN- Pain Management prescribes. Resolved Problems ProblemNoted DateDiagnosed DateResolved DateChronic allergic mqenvlwu83/25/2024 01/25/2025 Assessment & Plan (12/29/2023 11:58 AM EDT): Poorly controlled symptoms - has sinus pressure, nasal congestion and rhinorrhea. Switch to zyrtec-pseudo Discontinue cindy. Atrial eqokusakonfq00/22/202403/20/2024Weight gain/ Assessment & Plan (08/20/2023 6:30 PM [...] concerns related to new medications. Encounters DateTypeDepartmentCare NbkfCfxoipjvtag11/08/2025 11:10 AM EDTOffice Visit [facility] [place] [facility] [address] [place] [address] Husam Muñoz MD Hypopituitarism (HCC) (Primary Dx); Decreased libido; Encounter for dietary consultation; Class 1 obesity due to excess calories without serious comorbidity with body mass index (BMI) of 32.0 to 32.9 in adult04/12/2025Refill [facility] [place] [facility] [address] [place] [address] Husam Muñoz MD Hypopituitarism (HCC)04/12/2025amboo flowsheet [facility] [address] [place] [address] Husam Muñoz MD from Last 3 Months Family History Medical HistoryRelationNameCommentsLymphomaBrotherBrain AneurysmFatherDiabetes MotherHeart diseaseMotherThyroid diseaseMotherDiabetesOtherHeart diseaseOther Breast cancerNeg HxColon cancerNeg HxOvarian cancerNeg HxRelationNameStatus HcsizudqPxuoufc6LgtfvxMleipkqqDpsdjtUvuzwTsnox Social History Tobacco UseTypesPacks/DayYears UsedDateSmoking Tobacco: FormerCigarettesPassive Smoke Exposure: PastSmokeless Tobacco: Never Tobacco Cessation:Counseling Given: Not Answered Alcohol UseStandard Drinks/WeekCommentsNever0 (1 standard drink = 0.6 oz pure alcohol)B1300 Health LiteracyAnswerDate RecordedHow often do you need to have someone help you when you read instructions, pamphlets, or other written material from your doctor or pharmacy?Patient declines to czacrxz1906/05/2024 Humiliation, Afraid, Rape, and Kick questionnaireAnswerDate RecordedWithin [...] a week 06/05/2024How often do you attend alevism or nondenominational services?More than 4 times per year06/05/2024o you belong to any clubs or organizations such as alevism groups, unions, fraternal or athletic groups, or school groups?No06/05/2024How often do you attend meetings of the clubs or organizations you belong to?Never 06/05/2024re you , , , , never , or living with a partner?Ubznyfxm10/01/2024UDIT-CAnswerDate RecordedQ1: How often do you have a [...] hard at all06/05/2024HQ-2AnswerDate Recorded Patient Health Questionnaire-2 Ejiee249Finjordan [facility] [place] of Occupational Health - Occupational Stress QuestionnaireAnswerDate RecordedDo you feel stress - tense, restless, nervous, or anxious, or unable to sleep at night because your mind is troubled all the time - these days?Patient xvrpxvol35/01/2024Exercise Vital SignAnswerDate RecordedOn average, how many days [...] steady place to sleep or slept in [place] (including now)?No08/18/2023Housing Stability Vital SignAnswerDate RecordedIn the last 12 months, was there a time when you were not able to pay the mortgage or rent on time?No06/05/2024Number of Times Moved in the Last Year Not on file06/05/2024t any time in the past 12 months, were you homeless or living in a intermediate (including now)?No06/05/2024Sex and Gender InformationValue Date RecordedSex Assigned at BirthNot on fileLegal PuiVhzu3311/17/2022 7:09 PM EDT Gender IdentityNot on fileSexual OrientationNot on file Last Filed Vital Signs Vital SignReadingTime TakenCommentsBlood Lhhtkuwz778/8008 11:03 AM EDT Tkquj7716 11:03 AM GREJfzdaqqvzec65.6 ??C (97.8 ??F)03/26/2025 10:27 AM EDTRespiratory Bofe7730 11:03 AM EDTOxygen Anctubrewk32%04/12/2025 11:03 AM EDTInhaled Oxygen Concentration--Huftcq278 kg (239 lb)04/12/2025 11:03 AM EDT Zxjdbb412.9 cm (6')04/12/2025 11:03 AM EDTBody Mass Index32.41004/12/2025 11:03 AM EDT Plan of Treatment DateTypeDepartmentCare Team (Latest Contact Info)Hncmjcnfsow51/08/2025 10:20 AM ESTOffice Visit [facility] [place] [facility] [address] [place] [address] Husam Muñoz MD [address] [place] [address] Health MaintenanceDue DateLast DoneCommentsCT Sldicakcihhg1960FIT-DNA 1960FIT1960FOBT1960 5723Ufselifwrnobs1959MMR Vaccines (1 of 1 - Standard series)1960DTaP/Tdap/Td Vaccines (1 - Tdap)1966 Pneumococcal Vaccine: 65+ Years (1 of 2 - PCV)1978COVID-19 Vaccine (1 - 2023- season)2025Influenza Vaccine (#1)2025Medicare Annual Wellness (AWV)6001/25/2025, 08/18/2023, 08/18/20237485Lhcxfhcvmpn92/27/2034 11/01/2023, 4Colorectal Cancer Ycsweynli88/27/2034HIB VaccinesAged Out No longer eligible based on patient's age to complete this topicHPV VaccinesAged OutNo longer eligible based on patient's age to complete this topicHepatitis A VaccinesAged OutNo longer eligible based on patient's age to complete this topic Hepatitis B VaccinesAged OutNo longer eligible based on patient's age to complete this topicIPV VaccinesAged OutNo longer eligible based on patient's age to complete this topicMeningococcal B VaccineAged OutNo longer eligible based on patient's age to complete this topicMeningococcal VaccineAged OutNo longer eligible based on patient's age to complete this topicRotavirus VaccinesAged Out No longer eligible based on patient's age to complete this topic Procedures Procedure NamePriorityDate/TimeAssociated DiagnosisCommentsCOLONOSCOPYRoutine 11/01/2023 11:53 AM ESTfrom Last 3 Months or Most Recently Relevant to Health Maintenance Results * Colonoscopy (11/01/2023 11:53 AM EST)Anatomical RegionLateralityModality Endoscopy Narrative Authorizing ProviderResult TypeResult StatusFredric Nathanael DOENDOSCOPY PROCEDURE ORDERABLESFinal Result from Last 3 Months or Most Recently Relevant to Health Maintenance Insurance Care Teams Team MemberRelationshipSpecialtyStart DateEnd Rosa Barker MD [address] [facility] [address] [place] [address] PCP - Devoted09/05/22 Nikunj Yanez MD [address] [place] [address] PCP - [facility]04/09/24
--- OUTSIDE RECORDS SUMMARY | 2025-07-08 08:47 | XMS_ITS | Encounter Summary ---
Author Organization [facility] Address [address] [place] [address] Care Team Providers Care Science Faculty Member Name Role Phone Rosa Barker MD Unavailable Nikunj Yanez MD Primary Care Provider [phone] Sandee Santoyo NP Unavailable [phone] Encounter Details DateTypeDepartmentCare Team (Latest Contact Info)Pzosrbuehtd25/19/2024Clinisync Result Encounter [facility] External Department Unsolicited Provider, Generic External Data Social History Tobacco UseTypesPacks/DayYears UsedDateSmoking Tobacco: FormerCigarettesPassive Smoke Exposure: PastSmokeless Tobacco: NeverAlcohol UseStandard Drinks/Week CommentsNever0 (1 standard drink = 0.6 oz pure alcohol)B1300 Health Literacy AnswerDate RecordedHow often do you need to have someone help you when you read instructions, pamphlets, or other written material from your doctor or pharmacy? Patient declines to xdycrbr7106/05/2024Humiliation, Afraid, Rape, and Kick questionnaireAnswerDate RecordedWithin the [...] relatives?Twice a week06/05/2024How often do you attend faith or quaker services?More than 4 times per year06/05/2024o you belong to any clubs or organizations such as faith groups, unions, fraternal or athletic groups, or school groups?No06/05/2024How often do you attend meetings of the clubs or organizations you belong to?Never06/05/2024re you , , , , never , or living with a partner?Zuyojfgc99/01/2024UDIT-C AnswerDate RecordedQ1: How often do you have [...] hard at all06/05/2024 PHQ-2AnswerDate RecordedPatient Health Questionnaire-2 Sddnl168Finprimary [facility]'s hospital [place] of Occupational Health - Occupational Stress QuestionnaireAnswerDate RecordedDo you feel stress - tense, restless, nervous, or anxious, or unable to sleep at night because yourmind is troubled all the time - these days?Patient iwlrangs45/01/2024Exercise Vital SignAnswerDate RecordedOn average, how many days per week do you engage in moderate to strenuous exercise (like a brisk wal k)?0 days06/05/2024On average, how many minutes do you engage in exercise at this level?Patient xffkzjfe75/01/2024Hunger Vital SignAnswerDate RecordedWithin the past 12 months, [...] or living in a nursing home (including now)?No06/05/2024Sex and Gender InformationValueDate RecordedSex Assigned at BirthNot on fileLegal SexMale 11/17/2022 7:09 PM EDTGender IdentityNot on fileSexual OrientationNot on file documented as of this encounter Functional Status * AUDIT-C ScoreAnswerDate of FahfudlugmIpucxq309/01/2024 5:08 PM EDMike, Generic * Q1: How often do you have a drink containing alcohol?AnswerDate of Assessment WkuvkxCtava44/01/2024 5:08 PM Mayi, Generic * Q2: How many drinks containing alcohol do you have on a typical day when you are drinking?AnswerDate of AssessmentAuthorPatient does not drink06/05/2024 5:08 PM Mayi, Generic * Q3: How often do you have six or more drinks on one occasion?AnswerDate of IacjxgfyydTojolsBmosj43/01/2024 5:08 PM Mayi, Generic * Over the past 2 weeks, how often have you been bothered by any of the following problems?QuestionAnswerDate of AssessmentAuthorLittle interest or pleasure in doing thingsNot at all01/25/2025 10:00 AM Misti Felix MA Feeling down, depressed, or hopelessNot at all01/25/2025 10:00 AM Misti Felix MAPatient Health Questionnaire-2 Xnqvz032 10:00 AM Misti Felix MA * QuestionAnswerDate [...] 10:00 AM Misti Felix MAPatient Health Questionnaire-9 Yadxh904 10:00 AM Misti Felix MA documented as of this encounter Plan of Treatment DateTypeDepartmentCare Team (Latest Contact Info)Ijgrloffsag50/08/2025 10:20 AM ESTOffice Visit [facility] [place] [facility] [address] [place] [address] Husam Muñoz MD [address] [place] [address] documented as of this encounter Procedures Procedure NamePriorityDate/TimeAssociated DiagnosisCommentsCA ECHO DOPPLER LHMGGMRP28/19/2024 4:55 PM EDT documented in this encounter Results * CA ECHO DOPPLER COMPLETE (05/24/2024 4:55 PM EDT)Anatomical RegionLaterality ModalityOtherSpecimen (Source)Anatomical Location / LateralityCollection Method / VolumeCollection TimeReceived Time05/24/2024 4:55 PM EDT Narrative 05/24/2024 4:56 PM EDT [facility] ?[address] ? [place] [address] ? Cardiology Report ? Signed ? Patient: RIGO PETE N ?MR#: [id number] ?? : 1960 ?Acct:[id number] ?? Age/Sex: 64 / M ?ADM Date: 05/22/24 ?? Loc: CARD ? Attending Dr: Elias Manzano M.D. ? Ordering Physician: Elias Manzano M.D. ?? Date of Service: 05/22/24 ?? Procedure(s): CA echo doppler complete ?? Accession Number(s): [id number] ? cc: Shaikh Meka Malik; Elias Manzano M.D. ? Patient Name: ? RIGO PETE ? MR#: [id number] ? : 1960 ? Exam Date: 05/22/2024 [...] 1656 ? DD/ 1655 ? TD/TT: ? Bonsai Culturist: Procedure Note Radiology, Radiologist, - 05/24/2024 [place] [address] Cardiology Report Signed Patient: RIGO PETE NMR#: [id number] : 9Acct:[id number] Age/Sex: 64 / MADM Date: 05/22/24 Loc: CARD Attending Dr: Elias Manzano M.D. Ordering Physician: Elias Manzano M.D. Date of Service: 05/22/24 Procedure(s): CA echo doppler complete Accession Number(s): [id number] cc: Shaikh Meka Malik; Elias Manzano M.D. Patient Name: RIGO PETE MR#: [id number] : 1960 Exam Date: 05/22/2024 Ordering Doctor: [...] Irby M.D. Signed By:05/24/241655 DD/ 54 TD/TT: Bonsai Culturist: Authorizing ProviderResult TypeResult StatusGeneric External Data Provider CLINISYNC IMAGINGFinal Result documented in this encounter Visit Diagnoses Not on filedocumented in this encounter Care Teams Team MemberRelationshipSpecialtyStart DateEnd Date Rosa Barker MD [address] [facility] [address] [place] [address] PCP - Devoted09/05/22 Nikunj Yanez MD [address] [facility] [address] [place] [address] [facility]24 Sandee Santoyo NP [address] [address] Nurse Practitionermi Medicinedocumented as of this encounter
--- OUTSIDE RECORDS SUMMARY | 2025-07-08 08:47 | XMS_ITS | Clinical Summary ---
Author Organization [facility] Address [address] [place] [address] Care Team Providers Care Technical Publications Manager Name Role Phone Tonny Hernandez MD Unavailable [phone] Nikunj Yanez MD Unavailable [phone] Allergies No known active allergies Medications [...] 50 mg capsule 50 mg.Active Encounters DateTypeDepartmentCare ZgmlPvvslaeypat94/23/2025 4:20 PM EDTOffice Visit Neurosurgery [address] [place] [address] Juan Salazar MD Spinal stenosis of cervical region (Primary Dx); Spinal stenosis of lumbar region with neurogenic claudicationfrom Last 3 Months Social History Tobacco UseTypesPacks/DayYears UsedDateSmoking Tobacco: FormerCigarettes Smokeless Tobacco: NeverArea Deprivation IndexAnswerDate RecordedNational Score (1-100), lower number is lower mtwb0240State Score (1-10), lower number is lower zsdi471ata from: https://www.neighborhoodatlas.[facility]/. Last address used for [address][birth year]24Sex and Gender InformationValueDate Recorded Sex Assigned at BirthNot on fileLegal NixYycp39/02/2012 9:51 AM ESTGender IdentityNot on fileSexual OrientationNot on file Last Filed Vital Signs Vital SignReadingTime TakenCommentsBlood Vfisgbyn714/7109 3:53 PM EDT Nyjnj003305/28/2025 3:53 PM EDTTemperature--Respiratory Rate--Oxygen Cdgruyblfv73% 05/28/2025 3:53 PM EDTInhaled Oxygen Concentration--Pxiima858.8 kg (239 lb 13.8 oz)05/28/2025 3:53 PM OEBHjmwjm862.9 cm (6')05/28/2025 3:53 PM EDTBody Mass Index32.5309 3:53 PM EDT Plan of Treatment Health MaintenanceDue DateLast DoneCommentsAbdominal Aortic Aneurysm Screening 9Anxiety Vjhvelbin93/09/1977Depression Dxtfgspoc56/09/1977Hepatitis C Mminbultz50/09/1977DTaP,Tdap,Td Vaccine (1 - Tdap)1978Lipid Screening 1994CT Tnxhqwafuspr75/09/2004Cologuard (FIT-DNA)2004Colonoscopy 2004Colorectal Cancer Osxqishut89/09/2004Fecal Occult Blood2004 Nmqvarvhaceba40/09/2004Pneumococcal Vaccine: 50+ (1 of 1 - PCV)2009 Shingrix Vaccine (1 of 2)2009Diabetes Ibzzycigb49/06/2021, 01/27/2021dvance Directive Myugnmhypj62/01/2025Medicare Advantage Annual Wellness Visit09/05/2024ovid-19 Vaccine (1 - 2024- season)2025Influenza Vaccine (#1)2025Prostate Cancer Screening Bdvbheweqt08 RSV Vaccine (1 - 1-dose 75+ series)2034 Insurance Care Teams Team MemberRelationshipSpecialtyStart DateEnd Date Tonny Hernandez MD [address] [place] [address] ReferringPain Management04/16/24 Nikunj Yanez MD [address] [place] [address] Family [facility]03/26/25
--- OUTSIDE RECORDS SUMMARY | 2025-07-08 08:47 | XMS_ITS | Clinical Summary ---
Author Organization [facility] Address [address] [place] [address] Care Team Providers Care Deicer Repairer Name Role Phone Nikunj Yanez MD Primary Care Provider [phone] Allergies No known active allergies Medications MedicationSigDispense [...] mg EC tablet Indications:Coronary artery disease involving [place] coronary artery of [place] heart without angina pectorisTake 1 tablet (81 mg) by mouth in the morning. /ctive atenolol (Tenormin) 25 mg tablet Indications:Benign hypertensive 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 Take 1 tablet (25 mg) by mouth once daily as directed. 90 tablet 306///ctive Active Problems ProblemNoted DateDiagnosed DateDecreased okbuij7208/09/2024Hypopituitarism 08/09/2024aralyzed bwxodmvykhemj31/02/2024oronary artery disease involving [place] coronary artery of [place] heart without angina faklajqh86/10/2024enign hypertensive heart disease without congestive heart djblxuc6005/15/2024hest pain 05/14/2024hronic pain lytwnqrl15/09/2024 Overview (05/14/2024): Last Assessment & Plan: R/T severe lumbar stenosis Pain management referred to [facility] for further management. Still following with Pain Management- Dr. Stacy. Had epidural last Tuesday- feels pain is well managed since. Taking Oxycodone Q6H PRN- Pain Management prescribes. Dyspnea on tzszvyon06/09/2024lass 1 obesity due to excess calories without [...] and rhinorrhea. Switch to zyrtec-pseudo Discontinue cindy. Dtztiomuebekhz81/14/2023 Overview (05/14/2024): Last Assessment & Plan: Currently [...] to new medications. Impingement syndrome of shoulder fvjbub72/03/2017Chronic obstructive lung uwmbchu8311/24/2016 Overview (05/14/2024): Last Assessment & Plan: Does not follow pulmonolgy; Has not had any PFT's recently. Takes Singulair. No inhalers at this time. States inhalers were too expensive. Feels his symptoms are well managed. Except in excess humidity and warmer weather. Obstructive sleep apnea nonuamlj21/22/2017 Encounters DateTypeDepartmentCare DxheRqpphakzlta94/23/2025Telephone [place] [address] [place] [address] Cristina Mejia MA from Last 3 Months Family History Medical HistoryRelationNameCommentsCoronary artery diseaseBrotherDiabetesBrother HypertensionBrotherHypertensionFatherDiabetesMotherHypertensionMotherRelation NameStatusCommentsBrotherFatherMother Social History Tobacco UseTypesPacks/DayYears UsedDateSmoking Tobacco: FormerCigarettesQuit: 2010Smokeless Tobacco: Never Tobacco Cessation:Counseling Given: Not Answered Sex and Gender InformationValueDate RecordedSex Assigned at BirthNot on file Legal ZlgKkhw3903/03/2022 9:07 PM EDTGender IdentityNot on fileSexual Orientation Not on file Last Filed Vital Signs Vital SignReadingTime TakenCommentsBlood Egrxpgpz420/8401/11/2025 10:14 AM EDT Lnycz128001/11/2025 10:14 AM EDTTemperature--Respiratory Rate--Oxygen Saturation 96%01/11/2025 10:06 AM EDTInhaled Oxygen Concentration--Ozgxpi403 kg (244 lb) 01/11/2025 10:06 AM RJUPvaewp905.9 cm (6')01/11/2025 10:06 AM EDTBody Mass Index 33.0901/11/2025 10:06 AM EDT Plan of Treatment DateTypeDepartmentCare Team (Latest Contact Info)Wpxezdzymge11/08/2025 1:00 PM ESTOffice Visit [facility] [address] [place] [id number] Jr Manzano MD [address] MS:[place] [address] Health MaintenanceDue DateLast DoneCommentsCT Zhhiymbbhpna1959FIT-DNA 1959FIT1959FOBT1959Medicare Annual Wellness (AWV)1959 Ccutugnhppeou1959Depression Ylskwlfzt73/09/1971Pneumococcal Vaccine: 50+ Years (1 of 2 - PCV)1978Adult Wdfxawi4403/13/1981Zoster Vaccines (1 of 2) 2009Fall Risk Wlfbwrbtr55/09/2024COVID-19 Vaccine (1 - season) 2025Influenza Vaccine (#1)05/06/20251788Ltedqzmspzk73 Colorectal Cancer Ttlbxzfwb19/27/2034HIB VaccinesAged OutNo longer eligible based on patient's [...] DateEnd Date Nikunj Yanez MD [address] [place] [address] [facility] Zftkqagb44/6/24
--- OUTSIDE RECORDS SUMMARY | 2025-07-08 08:47 | XMS_ITS | Encounter Summary ---
Author Organization [facility] Address [address] [place] [address] Care Team Providers Care Cnc Manager Name Role Phone Nikunj Yanez MD Primary Care Provider [phone] Encounter Details DateTypeDepartmentCare Team (Latest Contact Info)Vcecixppprw90/23/2025Telephone [address] [address] Cristina Mejia MA Social History Tobacco UseTypesPacks/DayYears UsedDateSmoking Tobacco: FormerCigarettesQuit: 2010Smokeless Tobacco: NeverSex and Gender InformationValueDate RecordedSex Assigned at BirthNot on fileLegal NmoSila5803/03/2022 9:07 PM EDTGender Identity Not on fileSexual [...] Plan of Treatment DateTypeDepartmentCare Team (Latest Contact Info)Caqljgvecsz45/08/2025 1:00 PM ESTOffice Visit [facility] [address] [place] [address] Jr Manzano MD [address] MS:[address] [place] [address] documented as of this encounter Visit Diagnoses Not on filedocumented in this encounter Care Teams Team MemberRelationshipSpecialtyStart DateEnd Date Nikunj Yanez MD [address] [place] [address] PCP - GeneralFamily Bwuzvcdd03/6/24documented as of this encounter
[2025-07-08 09:22] VITALS: BP 122/76; PULSE 77; TEMP 36.8; O2SAT 96
[2025-07-08 09:51] VITALS: BP 128/57; PULSE 70; O2SAT 97
[2025-07-08 09:52] VITALS: BP 117/67; PULSE 70; O2SAT 98
[2025-07-08] MEDS: BUPIVACAINE HCL 0.25% PF 25 MG/10 ML VIAL INJ (09:54)
[2025-07-08] MEDS: 0.9 % SODIUM CHLORIDE 10 ML SYRINGE - SALINE FLUSH INJ (09:54)
[2025-07-08] MEDS: DEXAMETHASONE SOD PHOS 10 MG/ML VIAL INJ (09:54)
[2025-07-08] MEDS: LIDOCAINE HCL 2% 400 MG/20 ML MDV INJ (09:55)
[2025-07-08] MEDS: IOHEXOL 240 MG/ML - 10 ML VIAL 24 MG INJ (09:55)
--- NOTE | 2025-07-08 09:58 | P.ON_ITS ---
Date of procedure: 07/08/25 Pre-op diagnosis: Pain due to lumbar stenosis with neurogenic claudication Post-op diagnosis: same as pre-op Procedure: Procedure: Left L3-4, L4-5 transforaminal epidural steroid injection Medications: Bupivacaine 0.25% 2cc, lidocaine 2% 1cc, depomedrol 80mg The patient was seen and examined in the preoperative holding area.? Informed consent was obtained and placed on the chart.? Patient was brought to the medical procedure unit and placed in the prone position where a timeout was completed verifying the correct patient, procedure site, position, and planned special equipment using sterile aseptic technique.? Under direct fluoroscopic visualization a 25-gauge Quincke tipped spinal needle was advanced to the designated neural foramen where contrast dye was injected to show adequate spread.? The needle was inserted at level left L3-4. There was no evidence of vascular or adverse uptake.? Epidural spread was appreciated.? The above- mentioned injectate was then placed in a 1.5 mL aliquot preceded by negative aspiration.? The needle was removed. The needle was inserted and the procedure repeated at level left L4-5.? The surgery site was covered.? Patient was taken to the postprocedural recovery area and monitored for an appropriate length of time before found suitable for discharge in the accompaniment of a responsible adult. Anesthesia: Local Surgeon: Jonas Carrasquillo Pathology: none sent Condition: stable Disposition: no change
== END 2025-07-08 10:01 | disposition home or self-care (01) ==
PROVIDERS: PCP Family Medicine; Visit Provider Anesthesiology
DX: M48.062 Spinal stenosis, lumbar region with neurogenic claudication (principal); M54.50 Low back pain, unspecified
CPT/HCPCS: 64483; 64484; J0665; J1100; Q9966

== ENCOUNTER 2025-07-18 08:23 | Outpatient (OUT) | payer OTHER, SELFPAY ==
--- OUTSIDE RECORDS SUMMARY | 2025-07-18 08:27 | XMS_ITS | Clinical Summary ---
Author Organization [facility] Address [address] [place] [address] Care Team Providers Care Professor Of Latin American Studies Name Role Phone Rosa Barker MD Unavailable Nikunj Yanez MD Primary Care Provider [phone] Allergies No known active allergies Medications MedicationSigDispense [...] buttocks every 14 (fourteen) days 6 mL 5Active Active Problems ProblemNoted DateDiagnosed DateDegenerative lumbar spinal fxwctvep25/22/2025 Assessment & Plan (03/26/2025 11:14 AM EDT): Continued pain and follow with surgeon. Primary osteoarthritis of left hip03/26/2025 Assessment & Plan (03/26/2025 11:14 AM EDT): Continued pain and CT suggestive avascular necrosis. Refer to ortho. Abnormal CT scan03/26/2025 Assessment & Plan (03/26/2025 11:13 AM EDT): CT suggestive avascular necrosis and refer to ortho. Coronary artery disease involving [place] coronary artery of [place] heart without angina cwshildt56/23/6369Ecngeplaiochlal21/05/2024ecreased upzska5408/09/2024 Paralyzed kaxmkhbkgvqew88/02/2024Class 1 obesity due to excess calories with [...] new medications. Special screening for malignant neoplasms, colon09/26/2023[facility] annual wellness exam08/20/2023 Assessment & [...] He was referred to GI for Colonoscopy. Krerbxsfyuve50/14/2023 Assessment & Plan (05/03/2024 2:18 PM EDT): Currently taking Atorvastatin 20mg Denies myalgias. Most recent Lipid Panel WNL. Continue current regimen; Assessment & Plan (11/23/2023 9:37 AM EDT): On Lipitor. Tolerating w/o adverse effects Assessment & Plan (08/20/2023 6:27 PM EST): On Lipitor 20 mg. Check Lipid panel. Hypertensive firccfny34/14/2023 Assessment & Plan (03/26/2025 11:14 AM EDT): [...] resume his BP meds. Chronic seasonal allergic blhkevqw41/14/2023 Assessment & Plan (05/03/2024 2:23 PM EDT): [...] testosterone injections. Following Endocrinology. Chronic obstructive lung lexntik3111/24/2016 Assessment & Plan (03/26/2025 11:13 AM EDT): [...] Pain management referred to [facility] for further management. Still following with Pain Management- Dr. Stacy. Had epidural last Tuesday- feels pain is well managed since. Taking Oxycodone Q6H PRN- Pain Management prescribes. Resolved Problems ProblemNoted DateDiagnosed DateResolved DateChronic allergic bdjrntlo44/25/2024 01/25/2025 Assessment & Plan (12/29/2023 11:58 AM EDT): Poorly controlled symptoms - has sinus pressure, nasal congestion and rhinorrhea. Switch to zyrtec-pseudo Discontinue cindy. Atrial iyixeyucogen41/22/202403/Weight gain/ Assessment & Plan (08/20/2023 6:30 PM [...] questions or concerns related to new medications. Family History Medical HistoryRelationNameCommentsLymphomaBrotherBrain AneurysmFatherDiabetes MotherHeart diseaseMotherThyroid diseaseMotherDiabetesOtherHeart diseaseOther Breast cancerNeg HxColon cancerNeg HxOvarian cancerNeg HxRelationNameStatus MkwimggxZxwskyj8SzpflsEwygcgtpPrmsmtPrkqbZyjgd Social History Tobacco UseTypesPacks/DayYears UsedDateSmoking Tobacco: FormerCigarettesPassive Smoke Exposure: PastSmokeless Tobacco: Never Tobacco Cessation:Counseling Given: Not Answered Alcohol UseStandard Drinks/WeekCommentsNever0 (1 standard drink = 0.6 oz pure alcohol)B1300 Health LiteracyAnswerDate RecordedHow often do you need to have someone help you when you read instructions, pamphlets, or other written material from your doctor or pharmacy?Patient declines to sosqbpz6106/05/2024 Humiliation, Afraid, Rape, and Kick questionnaireAnswerDate RecordedWithin [...] a week 06/05/2024How often do you attend samaritan or rastafari services?More than 4 times per year06/05/2024o you belong to any clubs or organizations such as samaritan groups, unions, fraternal or athletic groups, or school groups?No06/05/2024How often do you attend meetings of the clubs or organizations you belong to?Never 06/05/2024re you , , , , never , or living with a partner?Ymozqwkj62/01/2024UDIT-CAnswerDate RecordedQ1: How often do you have a [...] hard at all06/05/2024HQ-2AnswerDate Recorded Patient Health Questionnaire-2 Gesul645[facility] [place] [facility] Occup[facility] Health - Occupational Stress QuestionnaireAnswerDate [...] in a snf (including now)?No06/05/2024Sex and Gender InformationValue Date RecordedSex Assigned at BirthNot on fileLegal AhkXwib4411/17/2022 7:09 PM EDT Gender IdentityNot on fileSexual OrientationNot on file Last Filed Vital Signs Vital SignReadingTime TakenCommentsBlood Iwdngyaw638/8008 11:03 AM EDT Wxcek0279 11:03 AM TLOSnemuulwjap91.6 ??C (97.8 ??F)03/26/2025 10:27 AM EDTRespiratory Hlvz1951 11:03 AM EDTOxygen Tqwisinpeb59%04/12/2025 11:03 AM EDTInhaled Oxygen Concentration--Lldctj977 kg (239 lb)04/12/2025 11:03 AM EDT Wnmkdx004.9 cm (6')04/12/2025 11:03 AM EDTBody Mass Index32.4108 11:03 AM EDT Plan of Treatment DateTypeDepartmentCare Team (Latest Contact Info)Dkleuyswxie59/08/2025 10:20 AM ESTOffice Visit [facility] [place] [facility] [address] [place] [address] Husam Muñoz MD [address] [place] [address] Health MaintenanceDue DateLast DoneCommentsCT Kaatjmkmzwqb1959FIT-DNA 1959FIT1959FOBT1959 3576Zonplemlytihm1959Pneumococcal Vaccine: 65+ Years (1 of 2 - PCV)1978COVID-19 Vaccine (1 - 2023- season) 2025Influenza Vaccine (#1)2025Medicare Annual Wellness (AWV) 605/, 08/18/2023, 9316Ommspjroznm23/27/203402/, 4Colorectal Cancer Gkodbhfwl92/27/2034 Procedures Procedure NamePriorityDate/TimeAssociated DiagnosisCommentsCOLONOSCOPYRoutine 11/01/2023 11:53 AM ESTfrom Last 3 Months or Most Recently Relevant to Health Maintenance Results * Colonoscopy (11/01/2023 11:53 AM EST)Anatomical RegionLateralityModality Endoscopy Narrative Authorizing ProviderResult TypeResult StatusFredric Nathanael DOENDOSCOPY PROCEDURE ORDERABLESFinal Result from Last 3 Months or Most Recently Relevant to Health Maintenance Insurance Care Teams Team MemberRelationshipSpecialtyStart DateEnd Date Rosa Barker MD [address] [facility] [address] [place] [address] PCP - [facility]09/05/22 Nikunj Yanez MD [address] [facility] [address] [place] [address] PCP - [facility]04/09/24
--- OUTSIDE RECORDS SUMMARY | 2025-07-18 08:27 | XMS_ITS | Clinical Summary ---
Author Organization [facility] Address [address] [place] [address], [address] [place] [address] Care Team Providers Care Neck Pinner Name Role Phone Unavailable Primary Care Provider Unavailabl e Social History Tobacco UseTypesPacks/DayYears UsedDateSmoking Tobacco: Never AssessedSex and Gender InformationValueDate RecordedSex Assigned at BirthNot on fileLegal Sex Male10/15/2012 12:32 PM ESTGender IdentityNot on fileSexual OrientationNot on file Plan of Treatment Not on file
--- OUTSIDE RECORDS SUMMARY | 2025-07-18 08:27 | XMS_ITS | Clinical Summary ---
Author Organization [facility] Address [address] [place] [address] Care Team Providers Care Upholstery Department Supervisor Name Role Phone Unavailable Primary Care Provider Unavailabl e Social History Tobacco UseTypesPacks/DayYears UsedDateSmoking Tobacco: Never AssessedSex and Gender InformationValueDate RecordedSex Assigned at BirthNot on fileLegal Sex Male10/08/2012 5:36 AM ESTGender IdentityNot on fileSexual OrientationNot on file Plan of Treatment Health MaintenanceDue DateLast DoneCommentsHEPATITIS C VIRUS IRDEHPFLP1959 GXETZDG86 1959TDAP (ADULT)1978LIPID YRBOVNUVV03/09/1999COLORECTAL CANCER SCREENING CXAUBLUAAW58/09/2004PNEUMOCOCCAL VACCINE SERIES (1 of 1 - PCV) 2009ZOSTER (SHINGLES) VACCINE (1 of 2)2009PROSTATE CANCER SCREENING WDRKVZYUXK41/09/2014BDOMINAL AORTIC ANEURYSM HIGH RISK RCSSDM5603/13/2024OVID-19 VACCINE (1 - 2024- season)2025INFLUENZA VACCINE (#1)2025RSV VACCINE (1 - 1-dose 75+ series)2034HEP B VACCINEAged OutNo longer eligible based on patient's age to complete this topic
--- OUTSIDE RECORDS SUMMARY | 2025-07-18 08:27 | XMS_ITS | Clinical Summary ---
Author Organization [facility] Address [address] [place] [address] Phone Care Team Providers Care Deflector Operator Name Role Phone Unavailable Primary Care Provider Unavailabl e Social History Tobacco UseTypesPacks/DayYears UsedDateSmoking Tobacco: Never AssessedSex and Gender InformationValueDate RecordedSex Assigned at BirthNot on fileLegal Sex Male07/31/2022 4:30 PM ESTGender IdentityNot on fileSexual OrientationNot on file Last Filed Vital Signs Vital SignReadingTime TakenCommentsBlood Qfgwrsch446/8505 11:12 AM EDT Pcjuk1105 11:12 AM WXAWgjafbwzwvo31.6 ??C (96.1 ??F)01/27/2021 11:12 AM EDTRespiratory Rate--Oxygen Saturation--Inhaled Oxygen Concentration--Unjrrx416 kg (248 lb)01/27/2021 11:12 AM EDTHeight--Body Mass Index-- Plan of Treatment Not on file Medical Devices ImplantedTypeAreaManufacturerDevice IdentifierShelf Expiration DateModel / Serial / LotKit, Pacing, Diaphragm, Synapse Case [id number] Implanted:Qty: 1 on 12/12/2017 by Daniel Caballero MDImplantSYNAPSE BIOMEDICAL [id number]/[id number] / [id number] / [id number]:Converted from [facility]. Please see archived information for full log information.
--- OUTSIDE RECORDS SUMMARY | 2025-07-18 08:27 | XMS_ITS | Clinical Summary ---
Author Organization [facility] Address [address] [place] [address] Care Team Providers Care Hoe Worker Name Role Phone Tonny Hernandez MD Unavailable [phone] Nikunj Yanez MD Unavailable [phone] Allergies No known active allergies Medications [...] 50 mg capsule 50 mg.Active Encounters DateTypeDepartmentCare GxrqGutrgvzxfjq48/23/2025 4:20 PM EDTOffice Visit Neurosurgery [address] [place] [address] Juan Salazar MD Spinal stenosis of cervical region (Primary Dx); Spinal stenosis of lumbar region with neurogenic claudicationfrom Last 3 Months Social History Tobacco UseTypesPacks/DayYears UsedDateSmoking Tobacco: FormerCigarettes Smokeless Tobacco: NeverArea Deprivation IndexAnswerDate RecordedNational Score (1-100), lower number is lower owbm1000State Score (1-10), lower number is lower ntvf932ata from: https://www.neighborhoodatlas.[facility]/. Last address used for nec[address]ut[address]Sex and Gender InformationValueDate Recorded Sex Assigned at BirthNot on fileLegal NixAbca01/02/2012 9:51 AM ESTGender IdentityNot on fileSexual OrientationNot on file Last Filed Vital Signs Vital SignReadingTime TakenCommentsBlood Punkgijj377/7109 3:53 PM EDT Mncbd390505/28/2025 3:53 PM EDTTemperature--Respiratory Rate--Oxygen Ydghmftsto34% 05/28/2025 3:53 PM EDTInhaled Oxygen Concentration--Qfxfds682.8 kg (239 lb 13.8 oz)05/28/2025 3:53 PM NJEUjynbj717.9 cm (6')05/28/2025 3:53 PM EDTBody Mass Index32.5309 3:53 PM EDT Plan of Treatment Health MaintenanceDue DateLast DoneCommentsAbdominal Aortic Aneurysm Screening 9Anxiety Pzinxmmtr97/09/1977Depression Ykutuhwbn22/09/1977Hepatitis C Klazddtih59/09/1977DTaP,Tdap,Td Vaccine (1 - Tdap)1978Lipid Screening 1994CT Hlolqrdlgpav20/09/2004Cologuard (FIT-DNA)2004Colonoscopy 2004Colorectal Cancer Sgazhlsat55/09/2004Fecal Occult Blood2004 Fwwhavhxtvgkj72/09/2004Pneumococcal Vaccine: 50+ (1 of 1 - PCV)2009 Shingrix Vaccine (1 of 2)2009Diabetes Ydzwtwvty43/06/2021, 01/27/2021dvance Directive Xicwwzsddp37/01/2025Medicare Advantage Annual Wellness Visit09/05/2024ovid-19 Vaccine (1 - 2024- season)2025Influenza Vaccine (#1)2025Prostate Cancer Screening Kkpbabxqwb40 RSV Vaccine (1 - 1-dose 75+ series)2034 Insurance Care Teams Team MemberRelationshipSpecialtyStart DateEnd Date Tonny Hernandez MD [address] [place] [address] ReferringPain Management04/16/24 Nikunj Yanez MD [address] [place] [address] Family [facility]03/26/25
--- OUTSIDE RECORDS SUMMARY | 2025-07-18 08:27 | XMS_ITS | Clinical Summary ---
Author Organization [facility] Address [address] [place] [address] Care Team Providers Care Electrical Engineering Director Name Role Phone Nikunj Yanez MD Primary Care Provider [phone] Allergies No known active allergies Medications MedicationSigDispense [...] mg EC tablet Indications:Coronary artery disease involving [place] coronary artery of [place] heart without angina pectorisTake 1 tablet (81 mg) by mouth in the morning. /ctive atenolol (Tenormin) 25 mg tablet Indications:Benign hypertensive 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 Take 1 tablet (25 mg) by mouth once daily as directed. 90 tablet 306///ctive Active Problems ProblemNoted DateDiagnosed DateDecreased ymdquh6708/09/2024Hypopituitarism 08/09/2024aralyzed hkgptsswdxypa64/02/2024oronary artery disease involving [place] coronary artery of [place] heart without angina ihbxljwg30/10/2024enign hypertensive heart disease without congestive heart qqvdyjq0305/15/2024hest pain 05/14/2024hronic pain tnoeymjl18/09/2024 Overview (05/14/2024): Last Assessment & Plan: R/T severe lumbar stenosis Pain management referred to [facility] for further management. Still following with Pain Management- Dr. Stacy. Had epidural last Tuesday- feels pain is well managed since. Taking Oxycodone Q6H PRN- Pain Management prescribes. Dyspnea on euehrqmf22/09/2024lass 1 obesity due to excess calories without [...] and rhinorrhea. Switch to zyrtec-pseudo Discontinue cindy. Mcdqyqfadwhbqu59/14/2023 Overview (05/14/2024): Last Assessment & Plan: Currently taking Atorvastatin 20mg Denies myalgias. Most recent Lipid Panel WNL. Continue current regimen; Hypertensive oviwwthn25/14/2023 Overview (05/14/2024): Last Assessment & Plan: Currently [...] to new medications. Impingement syndrome of shoulder fbgvsu43/03/2017Chronic obstructive lung vevddbz9011/24/2016 Overview (05/14/2024): Last Assessment & Plan: Does not follow pulmonolgy; Has not had any PFT's recently. Takes Singulair. No inhalers at this time. States inhalers were too expensive. Feels his symptoms are well managed. Except in excess humidity and warmer weather. Obstructive sleep apnea /22/2017 Encounters DateTypeDepartmentCare SxkxEpxjcmszoer12/23/2025Telephone [place] [address] [place] [address] Cristina Mejia MA from Last 3 Months Family History Medical HistoryRelationNameCommentsCoronary artery diseaseBrotherDiabetesBrother HypertensionBrotherHypertensionFatherDiabetesMotherHypertensionMotherRelation NameStatusCommentsBrotherFatherMother Social History Tobacco UseTypesPacks/DayYears UsedDateSmoking Tobacco: FormerCigarettesQuit: 2010Smokeless Tobacco: Never Tobacco Cessation:Counseling Given: Not Answered Sex and Gender InformationValueDate RecordedSex Assigned at BirthNot on file Legal UlyHuie9303/03/2022 9:07 PM EDTGender IdentityNot on fileSexual Orientation Not on file Last Filed Vital Signs Vital SignReadingTime TakenCommentsBlood Vuzaegmu716/8401/11/2025 10:14 AM EDT Korht030601/11/2025 10:14 AM EDTTemperature--Respiratory Rate--Oxygen Saturation 96%01/11/2025 10:06 AM EDTInhaled Oxygen Concentration--Iqvyeo794 kg (244 lb) 01/11/2025 10:06 AM QKTJkwyke840.9 cm (6')01/11/2025 10:06 AM EDTBody Mass Index 33.0901/11/2025 10:06 AM EDT Plan of Treatment DateTypeDepartmentCare Team (Latest Contact Info)Lmftdxqhgpb09/08/2025 1:00 PM ESTOffice Visit [facility] [address] [place] [phone] Jr Manzano MD [address] MS:[place] [address] Health MaintenanceDue DateLast DoneCommentsCT Hmfwuannnivf1959FIT-DNA 1959FIT1959FOBT1959Medicare Annual Wellness (AWV)1960 Cvhytlcsjooof1959Depression Pespiofno91/09/1971Pneumococcal Vaccine: 50+ Years (1 of 2 - PCV)1978Adult Efflmyy6403/13/1981Zoster Vaccines (1 of 2) 2009Fall Risk Cyoxkmlcc32/09/2024COVID-19 Vaccine (1 - season) 2025Influenza Vaccine (#1)05/06/20250336Tmgibstcgsn16 Colorectal Cancer Ptqorjphq24/27/2034HIB VaccinesAged OutNo longer eligible based on patient's [...] DateEnd Date Nikunj Yanez MD [address] [place] [id number] [facility] Onndarnz80/6/24
--- NOTE | 2025-07-18 08:50 | PM.CN ---
Consult Note: HPI Data of Consult Patient: known to practice within the last 3 years Consult date: 07/18/25 Requesting Physician: Sho Galdamez NP Primary Care Provider: Nikunj Yanez MD Consult Narrative Reason for consult: low back pain Narrative: Ryan Pete a pleasant 65 year old male presents for evaluation of chronic low back and left leg pain. Pt reports his low back and left LLE pain is 3/10 sharp aching with standing, walking, bending, ADLs, activity, sleep. notes mild improvement with sitting, lying, heat, TENS. denies falls and injury. pt following with orthopedics and NS for further evaluation, no available consult notes at this time. prior lumbar mri consistent with multilevel stenosis and DDD. recently underwent repeat left L3-4 L4-5 TFESI with >50% improvement ongoing. notes bialteral SIJ pain and facet mediated low back pain cc:: CC: Sho Galdamez NP Review of Systems ROS Musculoskeletal Reports: back pain and joint pain; Denies: extremity pain PFSH PFSH Medical History Bilateral hip pain ?M25.551 - Pain in right hip (ICD-10) ?M25.552 - Pain in left hip (ICD-10) COPD (chronic obstructive pulmonary disease) ?J44.9 - Chronic obstructive pulmonary disease, unspecified (ICD-10) Rheumatoid arthritis ?M06.9 - Rheumatoid arthritis, unspecified (ICD-10) Upper back pain ?M54.9 - Dorsalgia, unspecified (ICD-10) Low back pain ?M54.50 - Low back pain, unspecified (ICD-10) Uses continuous positive airway pressure (CPAP) ventilation at home ?Z99.89 - Dependence on other enabling machines and devices (ICD-10) Emphysema lung ?J43.9 - Emphysema, unspecified (ICD-10) Hypertension ?I10 - Essential (primary) hypertension (ICD-10) Surgical History Hx of cholecystectomy ?Z90.49 - Acquired absence of other specified parts of digestive tract (ICD-10) H/O cardiac catheterization ?Z98.890 - Other specified postprocedural states (ICD-10) H/O heart bypass surgery ?Z95.1 - Presence of aortocoronary bypass graft (ICD-10) History of lung surgery ?Z98.890 - Other specified postprocedural states (ICD-10) History of tonsillectomy ?Z90.89 - Acquired absence of other organs (ICD-10) H/O cervical spine surgery ?Z98.890 - Other specified postprocedural states (ICD-10) H/O carpal tunnel repair ?Z98.890 - Other specified postprocedural states (ICD-10) H/O arthroscopy of knee ?Z98.890 - Other specified postprocedural states (ICD-10) Family History Other Bilateral hip pain Meds Home Medications and Allergies Home Medications ?Medication ?Instructions ?Recorded ?Confirmed ?Type atorvastatin 40 mg tablet (Lipitor) 40 mg PO DAILY 02/17/23 07/08/25 History testosterone enanthate 50 mg/0.5 50 mg subcut QWEEK 12/13/23 07/08/25 History mL subcutaneous auto-injector (Xyosted) montelukast 10 mg tablet 10 mg PO DAILY 03/28/24 07/08/25 History (Singulair) naloxone 4 mg/actuation nasal 4 mg intranasal Q2M PRN opioid 07/18/24 07/08/25 Rx spray (Narcan) overdose #1 ea atenolol 25 mg tablet 25 mg 12/24/24 History clarithromycin 250 mg tablet mg 03/20/25 History phentermine 37.5 mg capsule mg 03/20/25 History oxycodone-acetaminophen 5 mg-325 1 tab PO QID PRN pain #120 tabs 06/18/25 07/08/25 Rx mg tablet (Percocet) methocarbamol 750 mg tablet 750 mg PO TID PRN spasms #90 tabs 07/03/25 07/08/25 Rx oxycodone-acetaminophen 5 mg-325 1 tab PO QID PRN pain #120 tabs 07/05/25 07/08/25 Rx mg tablet (Percocet) Allergies Allergy/AdvReac Type Severity Reaction Status Date / Time No Known Drug Allergies Allergy Verified 07/08/25 09:20 Exam Constitutional Documenting provider has reviewed patient's vital signs: yes Common normals: no apparent distress, oriented x3 and alert General appearance: cooperative HENMT Common normals: normocephalic, hearing grossly normal bilaterally and moist oral mucous membranes Head and scalp: normocephalic Eye Common normals: PERRL Pupil: PERRL Neck & C-Spine Common normals: full ROM General: normal visual inspection Chest Common normals: inspection of chest normal Respiratory Common normals: normal respiratory effort, no retractions and no use of accessory muscles Back & Pelvis Lumbar spine/lower back: pain with ROM, lumbar spinal tenderness and straight leg raise negative bilaterally Sacroiliac joints: SI joint(s) abnormal Other: positive facet loading L3-S1 strength 5/5 in BLE sensation intact BLE bilateral positive sho(patricks), gaenslens, thigh thrust, compression test Neuro Common normals: oriented x3 Sensorium/orientation: alert Psych Common normals: mental status grossly normal, thought process normal, cooperative, affect normal, speech normal and activity/motor behavior normal Speech: normal speech Thought process: normal thought process Results Additional Findings Additional findings: If on a controlled substance or opioids, I have checked an [place]AR[place] report on this patient and there are no aberrancies noted in the prescribing history.??If on a controlled substance or opioid a drug screen was completed and reviewed within the last year, and if there has not been a drug screen completed we ordered one today to monitor higher risk, state monitored pain medication use. As part of providing excellent, safe, comprehensive care, the following was completed at our patient's visit: 1. A medication reconciliation and review to ensure accurate knowledge of current/active medications, including asking our patients to inform us about any nkvs-lzp-wcnayuh medications or herbal remedies/nutritional supplements/alternative remedies. 2. A review to specifically ensure our patients have had annual screening for screening for depression, screening for tobacco use, and screening for unhealthy alcohol use. For concerning screenings had a discussion with the patient, provided patient education, and recommended follow-up with primary care provider when appropriate. If patient noted with a risk of falling, they received education on strength, gait, and balance training to prevent future risk of falling. Portions of this note may have been carried over from the previous visit and updated as appropriate. Please note this office utilizes paper charting in addition to the electronic medical record. A list of current medications, vitals, and PMH is available there as the clinical staff outside of myself do not have access to [employer] charting during the clinic day operations. As part of providing quality comprehensive care the current medications, vitals, and PMH were reviewed in the paper chart. Assessment and Plan Assessment and Plan (1) Sacroiliitis: (2) Lumbar stenosis with neurogenic claudication: (3) Lumbar spondylosis: (4) Encounter for long-term opiate analgesic use: Plan The patient has had over 3 months of moderate to severe neck and low back pain with functional impairment and inadequate response to conservative care including NSAIDS (unless there are contraindication such as concurrent blood thinners), multiple oral or topical pain medications, and home exercise program/physical therapy.? Patient has completed >6 weeks of guided home exercise program and/or formal physical therapy program without relief of their symptoms.? The Oswestry Disability Index was completed, and the patient scored a 40%.? pt would like to wait on bilateral SIJ injection under fluoroscopy at this time, notes prior SIJ injection did provide at least 50% improvement for 3 months. not interested in scheduling at this time due to cost continue f/u with NS as planned for cervical and lumbar spine, pending additional MRI. per pt NS would like to address cervical spine first continue percocet 5-325mg qid prn moderate to severe pain continue robaxin 750mg tid prn pain/spasms refill lidocaine 5% q24 hours prn pain max application 12 hours f/u 2 weeks after SIJ injection or 3 months for medication management
== END 2025-07-18 08:24 | disposition home or self-care (01) ==
LOC: PM 08:23
PROVIDERS: PCP Family Medicine; Visit Provider Nurse Practitioner
DX: M46.1 Sacroiliitis, not elsewhere classified (principal); M48.062 Spinal stenosis, lumbar region with neurogenic claudication; M47.816 Spondylosis without myelopathy or radiculopathy, lumbar region; Z79.891 Long term (current) use of opiate analgesic
CPT/HCPCS: G0463

== ENCOUNTER 2025-08-10 12:04 | Outpatient (OUT) | payer OTHER, SELFPAY ==
--- OUTSIDE RECORDS SUMMARY | 2025-08-10 12:09 | XMS_ITS | Clinical Summary ---
Author Organization [facility] Address [address] [place] [address] Care Team Providers Care Advertising Specialist Name Role Phone Nikunj Yanez MD Primary Care Provider [phone] Allergies No known active allergies Medications MedicationSigDispense [...] by mouth in the morning. 90 tablet /421520/ctive aspirin 81 mg EC tablet Indications:Coronary artery disease involving [place] coronary artery of [place] heart without angina pectorisTake 1 tablet (81 mg) by mouth in the morning. /ctive atenolol (Tenormin) 25 mg tablet Indications:Benign hypertensive 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 Take 1 tablet (25 mg) by mouth once daily as directed. 90 tablet 306//430963/6Active Active Problems ProblemNoted DateDiagnosed DateAbnormal CT scan03/26/2025Degenerative lumbar spinal ickzzucs91/22/2025Primary osteoarthritis of left hip03/26/2025Decreased utyump6908/09/20244700Jjargzwdcwlrieo57/05/2024aralyzed prcvgnufxcwge94/02/2024 Coronary artery disease involving [place] coronary artery of [place] heart without angina exzybmxt00/10/2024enign hypertensive heart disease without congestive heart ztmfmxo0605/15/2024hest pain05/14/2024hronic pain kvzvflig75/09/2024 Overview (05/14/2024): Last Assessment & Plan: R/T severe lumbar stenosis Pain management referred to [facility] for further management. Still following with Pain Management- Dr. Stacy. Had epidural last Tuesday- feels pain is well managed since. Taking Oxycodone Q6H PRN- Pain Management prescribes. Dyspnea on jbyjjhwv48/09/2024lass 1 obesity due to excess calories without [...] approves. Will discuss again at next OV. Obesity, class Encounter for Medicare annual wellness exam08/20/2023 Overview [...] to GI for Colonoscopy. Chronic seasonal allergic dbimwumx47/14/2023 Overview (05/14/2024): Last Assessment & Plan: Cetirizine D and Flonase daily. Feels symptoms are well managed. Continue current regimen. Last Assessment & Plan: Poorly controlled symptoms - has sinus pressure, nasal congestion and rhinorrhea. Switch to zyrtec-pseudo Discontinue cindy. Mqiajdwtjkclow00/14/2023 Overview (05/14/2024): Last Assessment & Plan: Currently taking Atorvastatin 20mg Denies myalgias. Most recent Lipid Panel WNL. Continue current regimen; Hypertensive qljfnyir01/14/2023 Overview (05/14/2024): Last Assessment & Plan: Currently [...] questions or concerns related to new medications. Cwxacvblhvmn24/14/2023Impingement syndrome of shoulder shbczu6612/06/2016Chronic obstructive lung sqbmkvk5111/24/2016 Overview (05/14/2024): Last Assessment & Plan: Does not follow pulmonolgy; Has not had any PFT's recently. Takes Singulair. No inhalers at this time. States inhalers were too expensive. Feels his symptoms are well managed. Except in excess humidity and warmer weather. Obstructive sleep apnea bpwploby28/22/2017 Encounters DateTypeDepartmentCare PiquPlggrnllipq20/23/2025Telephone [facility] [place] [address] [place] [address] Cristina Mejia MA from Last 3 Months Family History Medical HistoryRelationNameCommentsCoronary artery diseaseBrotherDiabetesBrother HypertensionBrotherHypertensionFatherDiabetesMotherHypertensionMotherRelation NameStatusCommentsBrotherFatherMother Social History Tobacco UseTypesPacks/DayYears UsedDateSmoking Tobacco: FormerCigarettesQuit: 2010Smokeless Tobacco: Never Tobacco Cessation:Counseling Given: Not Answered Sex and Gender InformationValueDate RecordedSex Assigned at VsgzvWupc97/05/2025 10:39 AM ESTLegal ImlYqxs8903/03/2022 9:07 PM EDTGender PoesodrhXboe07/05/2025 10:39 AM ESTSexual OrientationHeterosexual or Eglikgrr96/05/2025 10:39 AM EST Last Filed Vital Signs Vital SignReadingTime TakenCommentsBlood Bkfqovde751/8401/11/2025 10:14 AM EDT Dxlba457001/11/2025 10:14 AM EDTTemperature--Respiratory Rate--Oxygen Saturation 96%01/11/2025 10:06 AM EDTInhaled Oxygen Concentration--Xuutqc530 kg (244 lb) 01/11/2025 10:06 AM IMTBxewiz981.9 cm (6')01/11/2025 10:06 AM EDTBody Mass Index 33.0901/11/2025 10:06 AM EDT Plan of Treatment DateTypeDepartmentCare Team (Latest Contact Info)Gfqskrebqjz22/08/2025 1:00 PM ESTOffice Visit [facility] at [facility] [address] [place] [address] Jr Manzano MD [address] [place] [address] Health MaintenanceDue DateLast DoneCommentsCT Nosvmhzviula1959FIT-DNA 1959FIT1959FOBT1959Medicare Annual Wellness (AWV)1959 Trpwnuqgffnpx1959Depression Qwilnrxac69/09/1971Pneumococcal Vaccine: 50+ Years (1 of 2 - PCV)1978Adult Uxjlsrl0403/13/1981Zoster Vaccines (1 of 2) 2009Fall Risk Szazupsly39/09/2024COVID-19 Vaccine ( - season) 2025Influenza Vaccine (#1)3687Ezfoucrrinf29/27// Colorectal Cancer Dswvyuyfo21/27/2034HIB VaccinesAged OutNo longer eligible based on patient's [...] patient's age to complete this [place] [address] Care Teams Team MemberRelationshipSpecialtyStart DateEnd Date Nikunj Yanez MD [address] [place] [phone] PCP - GeneralFamily Gahvphjr03/6/24
--- OUTSIDE RECORDS SUMMARY | 2025-08-10 12:09 | XMS_ITS | Clinical Summary ---
Author Organization [facility] Address [address] [place] [address] Care Team Providers Care Food Prep Worker Name Role Phone Tonny Hernandez MD Unavailable [phone] Nikunj Yanez MD Unavailable [phone] Allergies No known active allergies Medications [...] 50 mg capsule 50 mg.Active Encounters DateTypeDepartmentCare HuyfBsnhkbteaig76/23/2025 4:20 PM EDTOffice Visit Neurosurgery [address] [place] [address] Juan Salazar MD Spinal stenosis of cervical region (Primary Dx); Spinal stenosis of lumbar region with neurogenic claudicationfrom Last 3 Months Social History Tobacco UseTypesPacks/DayYears UsedDateSmoking Tobacco: FormerCigarettes Smokeless Tobacco: NeverArea Deprivation IndexAnswerDate RecordedNational Score (1-100), lower number is lower bvnn5735State Score (1-10), lower number is lower kpln183ata from: https://www.neighborhoodatlas.[place] healthcare.[facility]/. Last address used for da[address]wer[address]tr[address]Sex and Gender InformationValueDate Recorded Sex Assigned at BirthNot on fileLegal BycBetd84/02/2012 9:51 AM ESTGender IdentityNot on fileSexual OrientationNot on file Last Filed Vital Signs Vital SignReadingTime TakenCommentsBlood Jjqrhukf232/7109 3:53 PM EDT Neawz196505/28/2025 3:53 PM EDTTemperature--Respiratory Rate--Oxygen Jmjjnwdyle63% 05/28/2025 3:53 PM EDTInhaled Oxygen Concentration--Yrbuye442.8 kg (239 lb 13.8 oz)05/28/2025 3:53 PM PNZEpxkim399.9 cm (6')05/28/2025 3:53 PM EDTBody Mass Index32.5309 3:53 PM EDT Plan of Treatment Health MaintenanceDue DateLast DoneCommentsAbdominal Aortic Aneurysm Screening 9Anxiety Omviwwmqh27/09/1977Depression Jbzkdneva92/09/1977Hepatitis C Kklezsczz53/09/1977DTaP,Tdap,Td Vaccine (1 - Tdap)1978Lipid Screening 1994CT Izymdnfrgutr46/09/2004Cologuard (FIT-DNA)2004Colonoscopy 2004Colorectal Cancer Nynmrakwv45/09/2004Fecal Occult Blood2004 Djdnlkiutodii11/09/2004Pneumococcal Vaccine: 50+ (1 of 1 - PCV)2009 Shingrix Vaccine (1 of 2)2009Diabetes Fvzyvdkhl92/06/2021, 01/27/2021dvance Directive Sjvbgqgjtd25/01/2025Medicare Advantage Annual Wellness Visit09/05/2024ovid-19 Vaccine (1 - 2024- season)2025Influenza Vaccine (#1)2025Prostate Cancer Screening Mxxirrggjv50 RSV Vaccine (1 - 1-dose 75+ series)2034 Insurance Care Teams Team MemberRelationshipSpecialtyStart DateEnd Date Tonny Hernandez MD [address] [place] [address] ReferringPain Management04/16/24 Nikunj Yanez MD [address] [place] [address] [facility]03/26/25
--- OUTSIDE RECORDS SUMMARY | 2025-08-10 12:09 | XMS_ITS | Clinical Summary ---
Author Organization [facility] Address [address] [place] [address] Care Team Providers Care Anvilsmith Name Role Phone Rosa Barker MD Unavailable Nikunj Yanez MD Primary Care Provider [phone] Allergies No known active allergies Medications MedicationSigDispense [...] Active Problems ProblemNoted DateDiagnosed DateDegenerative lumbar spinal drojwkbw08/22/2025 Assessment & Plan (03/26/2025 11:14 AM EDT): Continued pain and follow with surgeon. Primary osteoarthritis of left hip03/26/2025 Assessment & Plan (03/26/2025 11:14 AM EDT): Continued pain and CT suggestive avascular necrosis. Refer to ortho. Abnormal CT scan03/26/2025 Assessment & Plan (03/26/2025 11:13 AM EDT): CT suggestive avascular necrosis and refer to ortho. Coronary artery disease involving [place] coronary artery of [place] heart without angina znkmgaeu03/23/7582Dapxanvygidmyvp57/05/2024ecreased rnwgqo5108/09/2024 Paralyzed hgbiubgwdftdc97/02/2024Class 1 obesity due to excess calories with [...] new medications. Special screening for malignant neoplasms, colon09/26/2023[facility] for Medicare annual wellness exam08/20/2023 Assessment & [...] He was referred to GI for Colonoscopy. Pysclrfvoybc60/14/2023 Assessment & Plan (05/03/2024 2:18 PM EDT): Currently taking Atorvastatin 20mg Denies myalgias. Most recent Lipid Panel WNL. Continue current regimen; Assessment & Plan (11/23/2023 9:37 AM EDT): On Lipitor. Tolerating w/o adverse effects Assessment & Plan (08/20/2023 6:27 PM EST): On Lipitor 20 mg. Check Lipid panel. Hypertensive jjybrcqx08/14/2023 Assessment & Plan (03/26/2025 11:14 AM EDT): [...] resume his BP meds. Chronic seasonal allergic llheuhcc75/14/2023 Assessment & Plan (05/03/2024 2:23 PM EDT): [...] testosterone injections. Following Endocrinology. Chronic obstructive lung ichzadp4311/24/2016 Assessment & Plan (03/26/2025 11:13 AM EDT): [...] severe lumbar stenosis Pain management referred [facility] for further management. Still following with Pain Management- Dr. Stacy. Had epidural last Tuesday- feels pain is well managed since. Taking Oxycodone Q6H PRN- Pain Management prescribes. Resolved Problems ProblemNoted DateDiagnosed DateResolved DateChronic allergic elgcgydg47/25/2024 01/25/2025 Assessment & Plan (12/29/2023 11:58 AM EDT): Poorly controlled symptoms - has sinus pressure, nasal congestion and rhinorrhea. Switch to zyrtec-pseudo Discontinue cindy. Atrial sfeigkbxzwrc73/22/202403/Weight gain/ Assessment & Plan (08/20/2023 6:30 PM [...] Breast cancerNeg HxColon cancerNeg HxOvarian cancerNeg HxRelationNameStatus LbsulvjtJiqaozi4PcbwndLyzgubnbLbtovjOstrqTyqus Social History Tobacco UseTypesPacks/DayYears UsedDateSmoking Tobacco: FormerCigarettesPassive Smoke Exposure: PastSmokeless Tobacco: Never Tobacco Cessation:Counseling Given: Not Answered Alcohol UseStandard Drinks/WeekCommentsNever0 (1 standard drink = 0.6 oz pure alcohol)B1300 Health LiteracyAnswerDate RecordedHow often do you need to have someone help you when you read instructions, pamphlets, or other written material from your doctor or pharmacy?Patient declines to whzgshi0306/05/2024 Humiliation, Afraid, Rape, and Kick questionnaireAnswerDate RecordedWithin [...] a week 06/05/2024How often do you attend confucianism or druze services?More than 4 times per year06/05/2024o you belong to any clubs or organizations such as confucianism groups, unions, fraternal or athletic groups, or school groups?No06/05/2024How often do you attend meetings of the clubs or organizations you belong to?Never 06/05/2024re you , , , , never , or living with a partner?Gxghbdmj38/01/2024UDIT-CAnswerDate RecordedQ1: How often do you have a [...] hard at all06/05/2024HQ-2AnswerDate Recorded Patient Health Questionnaire-2 Oxfcj009[facility] [place] [facility] - Occupational Stress QuestionnaireAnswerDate RecordedDo you feel stress - tense, restless, nervous, or anxious, or unable to sleep at night because your mind is troubled all the time - these days?Patient ucvjlzyd86/01/2024Exercise Vital SignAnswerDate RecordedOn average, how many days [...] you homeless or living in a senior care (including now)?No06/05/2024Sex and Gender InformationValue Date RecordedSex Assigned at BirthNot on fileLegal OltHdhg0411/17/2022 7:09 PM EDT Gender IdentityNot on fileSexual OrientationNot on file Last Filed Vital Signs Vital SignReadingTime TakenCommentsBlood Bedpqlhf643/8008 11:03 AM EDT Ijdyd4735 11:03 AM QBKJbkovtorebz48.6 ??C (97.8 ??F)03/26/2025 10:27 AM EDTRespiratory Tcol8775 11:03 AM EDTOxygen Ooutnmmmln92%04/12/2025 11:03 AM EDTInhaled Oxygen Concentration--Ujelpb902 kg (239 lb)04/12/2025 11:03 AM EDT Afzlqn480.9 cm (6')04/12/2025 11:03 AM EDTBody Mass Index32.4108 11:03 AM EDT Plan of Treatment DateTypeDepartmentCare Team (Latest Contact Info)Wymtuheioca70/08/2025 10:20 AM ESTOffice Visit [facility] [place] [facility] [address] [place] [address] Husam Muñoz MD [address], [address] [place] [address] Health MaintenanceDue DateLast DoneCommentsCT Lbijpceegrji1959FIT-DNA 1959FIT1959FOBT1959 8699Fbmkqgsyxwxfs1959Pneumococcal Vaccine: 65+ Years (1 of 2 - PCV)1978COVID-19 Vaccine (1 - 2024- season) 2025Influenza Vaccine (#1)2025Medicare Annual Wellness (AWV) 605/, 08/18/2023, 2690Rsagxeyhwjx81/27/203402/, 4Colorectal Cancer Cxgtypoms98/27/2034 Procedures Procedure NamePriorityDate/TimeAssociated DiagnosisCommentsCOLONOSCOPYRoutine 11/01/2023 11:53 AM ESTfrom Last 3 Months or Most Recently Relevant to Health Maintenance Results * Colonoscopy (11/01/2023 11:53 AM EST)Anatomical RegionLateralityModality Endoscopy Narrative Authorizing ProviderResult TypeResult StatusFredric Nathanael DOENDOSCOPY PROCEDURE ORDERABLESFinal Result from Last 3 Months or Most Recently Relevant to Health Maintenance Insurance Care Teams Team MemberRelationshipSpecialtyStart DateEnd Date Rosa Barker MD [address] [place] [address] PCP - [facility]09/05/22 Nikunj Yanez MD [address] [place] [address] PCP - [facility]04/09/24
--- OUTSIDE RECORDS SUMMARY | 2025-08-10 12:09 | XMS_ITS | Clinical Summary ---
Author Organization [facility] Address [address] [place] [address] Care Team Providers Care Upholstery Instructor Name Role Phone Unavailable Primary Care Provider Unavailabl e Social History Tobacco UseTypesPacks/DayYears UsedDateSmoking Tobacco: Never AssessedSex and Gender InformationValueDate RecordedSex Assigned at BirthNot on fileLegal Sex Male10/08/2012 5:36 AM ESTGender IdentityNot on fileSexual OrientationNot on file Plan of Treatment Health MaintenanceDue DateLast DoneCommentsHEPATITIS C VIRUS FDYMAHTIO1959 ERYRYMR03 1959TDAP (ADULT)1978LIPID YIPAZXFEI51/09/1999COLORECTAL CANCER SCREENING NVPYFUWWWQ01/09/2004PNEUMOCOCCAL VACCINE SERIES (1 of 1 - PCV) 2009ZOSTER (SHINGLES) VACCINE (1 of 2)2009PROSTATE CANCER SCREENING PHJEBGCWXS26/09/2014BDOMINAL AORTIC ANEURYSM HIGH RISK NSYGFF5003/13/2024OVID-19 VACCINE (1 - 2024- season)2025INFLUENZA VACCINE (#1)2025RSV VACCINE (1 - 1-dose 75+ series)2034HEP B VACCINEAged OutNo longer eligible based on patient's age to complete this topic
--- OUTSIDE RECORDS SUMMARY | 2025-08-10 12:09 | XMS_ITS | Clinical Summary ---
Author Organization [facility] Address [address] [place] [address], [address] [place] [address] Care Team Providers Care Coal Pulverizing Operator Name Role Phone Unavailable Primary Care Provider Unavailabl e Social History Tobacco UseTypesPacks/DayYears UsedDateSmoking Tobacco: Never AssessedSex and Gender InformationValueDate RecordedSex Assigned at BirthNot on fileLegal Sex Male10/15/2012 12:32 PM ESTGender IdentityNot on fileSexual OrientationNot on file Plan of Treatment Not on file
--- OUTSIDE RECORDS SUMMARY | 2025-08-10 12:09 | XMS_ITS | Clinical Summary ---
Author Organization [facility] Address [address] [address] Phone Care Team Providers Care Show Host/Hostess Name Role Phone Unavailable Primary Care Provider Unavailabl e Social History Tobacco UseTypesPacks/DayYears UsedDateSmoking Tobacco: Never AssessedSex and Gender InformationValueDate RecordedSex Assigned at BirthNot on fileLegal Sex Male07/31/2022 4:30 PM ESTGender IdentityNot on fileSexual OrientationNot on file Last Filed Vital Signs Vital SignReadingTime TakenCommentsBlood Anzjwlmm409/8505 11:12 AM EDT Grple6421 11:12 AM VUJFlpvopfqzqo99.6 ??C (96.1 ??F)01/27/2021 11:12 AM EDTRespiratory Rate--Oxygen Saturation--Inhaled Oxygen Concentration--Zoyowb457 kg (248 lb)01/27/2021 11:12 AM EDTHeight--Body Mass Index-- Plan of Treatment Not on file Medical Devices ImplantedTypeAreaManufacturerDevice IdentifierShelf Expiration DateModel / Serial / LotKit, Pacing, Diaphragm, Synapse Case [id number] Implanted:Qty: 1 on 12/12/2017 by Daniel Caballero MDImplantSYNAPSE BIOMEDICAL INC08/04/[id number] / [id number] / [id number]:Converted from [facility]. Please see archived information for full log information.
[2025-08-10 12:41] LABS: Hemoglobin 17.5 g/dL (14.0-18.0)
[2025-08-10 14:16] LABS: Prostate Specific Antigen Dx 1.25 ng/mL (<=4.00)
== END 2025-08-10 12:05 | disposition home or self-care (01) ==
PROVIDERS: PCP Family Medicine; Visit Provider Internal Medicine
DX: E23.0 Hypopituitarism (principal)
CPT/HCPCS: 36415; 84153; 84403; 85018